=== PATIENT | male | born 1955 | race Caucasian/White ===

== ENCOUNTER → 2018-06-12 09:10 | Outpatient (CLI) | payer OTHER, SELFPAY ==
[2018-06-12 09:24] LABS: Prothrombin Time (Protime)PT. 22.8 SECONDS (11.7-14.9)
== END ==
PROVIDERS: PCP Internal Medicine; Visit Provider Internal Medicine
DX: I74.9 Embolism and thrombosis of unspecified artery (principal); D68.9 Coagulation defect, unspecified
CPT/HCPCS: 85610

== ENCOUNTER → 2020-03-01 11:13 | Outpatient (CLI) | payer OTHER, SELFPAY ==
[2020-03-01 10:08] VITALS: BMI 28.5
== END ==
PROVIDERS: PCP Internal Medicine; Referring Provider Internal Medicine Cardiovascular Disease; Visit Provider Internal Medicine Cardiovascular Disease
DX: I48.91 Unspecified atrial fibrillation (principal)
CPT/HCPCS: 93225; 93226

== ENCOUNTER → 2020-03-13 06:14 | Outpatient (CLI) | payer OTHER, SELFPAY ==
[2020-03-01 10:08] VITALS: BMI 28.5
--- NOTE | 2020-03-13 06:15 | ECHOD_ITS ---
Reason For Study: AFIB Procedure This was a 2D Doppler, Color Flow transthoracic echocardiogram. Exam performed in department. Left Ventricle Normal LV size. Left ventricular systolic function is normal. The estimated ejection fraction is 60 %. Unable to assess diastolic dysfunction due to arrhythmia. No regional wall motion abnormalities noted. Right Ventricle Normal RV size. Normal systolic function. Atria The left atrium is mildly enlarged. Normal right atrium. Mitral Valve Mild mitral valve prolapse. Tricuspid Valve Normal tricuspid valve. Mild tricuspid valve insufficiency. Pulmonary artery systolic pressure is 23 mmHg. Aortic Valve Normal aortic valve. Pulmonic Valve Normal pulmonic valve. Great Vessels Normal aortic root. The pulmonary artery is normal size. Normal inferior vena cava. Pericardium/Pleural No pericardial effusion. MMode/2D Measurements & Calculations LVIDd: 4.7 cm IVSd: 0.93 cm Ao root diam: 3.3 cm LVIDs: 3.8 cm LVPWd: 0.98 cm RVDd: 3.8 cm FS: 18.9 % LAV(MOD-bp): 66.0 ml LVAd ap4: 29.5 cm2 SV(MOD-sp4): 45.2 ml LAV(MOD-bp) Indexed: 32.5 ml/m2 EDV(MOD-sp4): 101.3 ml LAV(MOD-sp2): 58.5 ml EDV(sp4-el): 104.3 ml LAV(MOD-sp4): 67.7 ml LVAs ap4: 20.5 cm2 ESV(MOD-sp4): 56.1 ml ESV(sp4-el): 57.8 ml EF(MOD-sp4): 44.6 % EF(sp4-el): 44.6 % SV(sp4-el): 46.6 ml LA A4 area: 22.0 cm2 LA dimension(2D): 4.4 cm RA A4 area: 17.1 cm2 Doppler Measurements & Calculations Ao V2 max: 80.9 cm/sec LV V1 max: 71.8 cm/sec TR max jojo: 220.4 cm/sec Ao max P.7 mmHg LV V1 max P.2 mmHg TR max P.4 mmHg Interpretation Summary Normal LV size. Left ventricular systolic function is normal. The estimated ejection fraction is 60 %. The left atrium is mildly enlarged. Unable to assess diastolic dysfunction due to arrhythmia. Pulmonary artery systolic pressure is 23 mmHg. Ordering Physician: Jose Hylton Referring Physician: PATRICIA COLEMAN Performed By: Antonia Mcknight, RDCS, RVT
--- NOTE | 2020-03-13 09:41 | STRESSREP_ITS ---
Stress Test Report Pharmacologic myocardial perfusion stress test. 64-year-old man with a history of hyperlipidemia and atrial fibrillation. Stress protocol. Resting EKG demonstrates atrial fibrillation with a rate of 79 bpm normal intervals are noted resting blood pressure is 130/82 mmHg. 0.4 mg of regadenoson was infused per usual protocol followed up intravenous saline flush injection continuous cardiac monitor technician was performed. At rest there were no ST or T wave changes noted suggest abnormal flow reserve at peak infusion nonspecific ST-T wave changes were noted with no meet the criteria for abnormal flow reserve. The maximum heart rate was 117 bpm. The resting blood pressure is 130/82 final blood pressure is 112/82. Myocardial perfusion protocol. 11.2 mCi of technetium 99m sestamibi was injected at rest. 0.4 mg of regadenoson was infused per usual protocol at peak infusion 33.8 mCi of technetium 99m sestamibi was injected stress images were obtained stress and rest images were reconstructed and compared in the short axis vertical long horizontal long axis. Gated images were also obtained Perfusion SPECT analysis: Review of the stress images demonstrate normal uptake of tracer noted in all areas of the myocardium the resting which is similar demonstrate normal uptake of tracer noted in all areas of the myocardium. No areas of reversibility are noted suggest ischemia no previous infarct is noted. Gated SPECT analysis: The gated ejection fraction is 41%. Conclusion: Atrial fibrillation. Myocardial perfusion scan with no evidence of ischemia. Preserved ejection fraction.
== END ==
PROVIDERS: PCP Internal Medicine; Referring Provider Internal Medicine Cardiovascular Disease; Visit Provider Internal Medicine Cardiovascular Disease
DX: I48.91 Unspecified atrial fibrillation (principal)
CPT/HCPCS: 78452; 93017; 93306; A9500; A4216; J2785

== ENCOUNTER → 2020-04-12 09:22 | Outpatient (CLI) | payer OTHER, SELFPAY ==
[2020-04-12 08:37] VITALS: BMI 29.0
[2020-04-12 10:10] LABS: Absolute Lymphocyte Count 2.15 X10^3/uL (0.83-4.51); Absolute Neutrophil Count 3.8 X10^3/uL (2.0-7.7); Basophil# 0.06 X10^3/uL; Basophil% 0.9 % (0-1); Eosinophil# 0.21 X10^3/uL; Eosinophils% 3.1 % (0-5); Hematocrit 49.8 % (40-54); Hemoglobin 16.2 g/dL (13.0-16.5); Lymphocyte # 2.15 X10^3/ul (4.0); Lymphocyte % 31.3 % (19-41); Mean Corp Hgb Conc 32.5 g/dL (32-36); Mean Corpuscular Hgb 30.3 pg (27.0-32.0); Mean Corpuscular Volume 93.1 fL (80-94); Mean Platelet Vol. 9.8 fl (6.2-12.0); Monocyte# 0.67 X10^3/uL; Monocyte% 9.7 % (0-10); NRBC Flagged by Analyzer 0 % (0-5); Neutrophil # 3.78 X10^3/uL (2.7-7.7); Neutrophil % 54.9 % (47-70); Platelet Count 244 K/mm3 (150-450); RBC Distribution Width CV 13.6 % (11.6-14.6); RBC Distribution Width SD 46.2 fl (35.1-43.9); Red Blood Count 5.35 M/mm3 (4.6-6.2); White Blood Count 6.9 K/mm3 (4.4-11.0)
[2020-04-12 11:06] LABS: Anion Gap 5 (5-15); BUN 25 mg/dL (7-18); BUN/Creat Ratio 20.8 RATIO (10-20); Calcium,Total 9.1 mg/dL (8.5-10.1); Chloride 107 mmol/L (98-107); EST Glomerular Filtration Rate 65 mL/min (>60); Est Glom Filt Rate - Afr Amer 79 mL/min (>60); Glucose 97 mg/dL (74-106); Magnesium 2.3 mg/dL (1.6-2.6); Potassium 4.5 mmol/L (3.5-5.1); Sodium Level 139 mmol/L (136-145); T4 Free Direct 1.09 ng/dL (0.76-1.46); Thyroid Stim Hormone (TSH) 1.57 uIU/mL (0.358-3.74)
== END ==
PROVIDERS: PCP Internal Medicine; Referring Provider Nurse Practitioner Family; Visit Provider Nurse Practitioner Family
DX: I48.91 Unspecified atrial fibrillation (principal); R53.83 Other fatigue
CPT/HCPCS: 36415; 80048; 83735; 84439; 84443; 85025

== ENCOUNTER 2020-04-25 15:02 | Emergency (ER) | payer OTHER, SELFPAY ==
[2020-04-12 08:37] VITALS: BMI 29.0
[2020-04-25 15:02] VITALS: BP 105/65; PULSE 67; RESP 22; TEMP 37; O2SAT 94; BMI 30.2
--- NOTE | 2020-04-25 15:20 | EKG12_ITS ---
Test Reason : Blood Pressure : / mmHG Vent. Rate : 068 BPM Atrial Rate : 068 BPM P-R Int : 140 ms QRS Dur : 108 ms QT Int : 414 ms P-R-T Axes : 013 -03 002 degrees QTc Int : 440 ms Sinus rhythm with Premature atrial complexes Right bundle branch block Abnormal ECG Confirmed by PÉREZ HEDRICK, DANIEL ([id number]), photography editor LUZMARIA RIVERA ([id number]) on 04/26/2020 9:40:52 AM Referred By: Confirmed By:DANIEL ORTEZ MD
--- NOTE | 2020-04-25 15:22 | ED.VIS.GEN ---
History of Present Illness Chief Complaint: Chest Pain Informant: Patient, Family Onset: Today Narrative: 64-year-old male with past medical history of atrial fibrillation, chronic DVTs, hypertension, COPD presents with concern for chest pain and hemoptysis. States this began approximately 2 hours ago. States that he was working around the house when this was happening. States that his pain is left-sided and sharp in nature. Worse with deep inspiration. Denies any fever, chills, cough. Does admit to some dyspnea. Worse with exertion. Patient did have rotator cuff surgery approximately 6 days ago. Received an upper extremity block for this issue. Patient is currently anticoagulated on Coumadin. Did have an INR of 2.5 today. Denies any sick contacts. Past Medical History - Allergies and Home Meds Allergies/Adverse Reactions: Allergies No Known Allergies Allergy (Verified 04/25/20 15:08) Primary Care Physician: Magen Ayon MD [Primary Care Provider] - Prior records reviewed: Yes Past Medical History: - - HTN, HLD, DVT, COPD Lives: Spouse/ Significant Other Smoking Status: Current every day smoker Alcohol: None Drugs: None Review of Systems General: Denies: Chills, Fever, Sweats Eyes: Denies: Visual changes - bilaterally, Diplopia ENT: Denies: Rhinorrhea, Sore throat Cardiovascular: Reports: Chest pain. Denies: Palpitations Respiratory: Reports: Dyspnea, Dyspnea on exertion. Denies: Cough Gastrointestinal: Denies: Abdominal pain, Nausea, Vomiting, Diarrhea, Melena, Hematochezia Genitourinary: Denies: Dysuria, Hematuria, Frequency Musculoskeletal: Denies: Back pain, Extremity Pain Skin: Denies: Rash, Wounds Neurological: Denies: Headache, Weakness, Numbness Physical Exam Vital Signs/Narrative: Vital Signs Temp Pulse Resp BP Pulse Ox 04/25/20 15:02 98.6 F 67 22 H 105/65 94 Inital Vital Signs reviewed: Yes General: Well nourished, Well developed, No Acute Distress Head: Normocephalic, Atraumatic Eyes: Perrl, EOMI ENT: Moist mucous membranes, No rhinorrhea Neck: Supple, Nontender Cardiovascular: Regular rate, Regular rhythm, No murmurs Respiratory: No distress, CTA bilaterally, Chest nontender Abdomen: Soft, Nontender, Nondistended, Normal bowel sounds Back: Nontender, Normal Inspection Extremities: Nontender, No edema Skin: Normal color, No rash Neurological: Alert, Oriented x3, Cranial nerves II-XII grossly intact, Normal Strength, Normal Sensation Psychological: Normal affect, Normal Mood Diagnostic/Tx/Re-eval Chest X-Ray - ED: 1 View, No Acute Disease Clinical Impression(s) from Imaging Studies Chest CTA 04/25/20 16:10 IMPRESSION: Bilateral nonspecific airspace disease. Follow-up recommended. Moderate hiatal hernia. Electronically Signed: Edd Valderrama MD at 16:45 EDT , Service support , Laboratory Data 04/25/20 04/25/20 04/25/20 15:35 15:35 15:35 WBC 8.4 RBC 4.33 L Hgb 13.3 Hct 39.7 L MCV 91.7 MCH 30.7 MCHC 33.5 RDW Std Deviation 45.1 H RDW Coeff of Shailesh 13.2 Plt Count 171 MPV 9.9 Immature Gran % (Auto) 0.200 Neut % (Auto) 71.3 H Lymph % (Auto) 15.0 L Fannin % (Auto) 10.0 Eos % (Auto) 3.0 Baso % (Auto) 0.5 Absolute Neuts (auto) 6.0 Absolute Lymphs (auto) 1.26 Nucleated RBC % 0 PT 25.6 H INR 2.4 Sodium 138 Potassium 4.6 Chloride 108 H Carbon Dioxide 25.0 Anion Gap 5 BUN 17 Creatinine 1.05 Estim Creat Clear Calc 72.01 Est GFR (MDRD) Af Amer 92 Est GFR (MDRD) Non-Af 76 BUN/Creatinine Ratio 16.2 Glucose 94 Calcium 8.5 Troponin I < 0.015 B-Natriuretic Peptide 04/25/20 15:35 WBC RBC Hgb Hct MCV MCH MCHC RDW Std Deviation RDW Coeff of Shailesh Plt Count MPV Immature Gran % (Auto) Neut % (Auto) Lymph % (Auto) Fannin % (Auto) Eos % (Auto) Baso % (Auto) Absolute Neuts (auto) Absolute Lymphs (auto) Nucleated RBC % PT INR Sodium Potassium Chloride Carbon Dioxide Anion Gap BUN Creatinine Estim Creat Clear Calc Est GFR (MDRD) Af Amer Est GFR (MDRD) Non-Af BUN/Creatinine Ratio Glucose Calcium Troponin I B-Natriuretic Peptide 195.1 H - Rhythm Strip Rhythm Strip: Sinus Rhythm Rate: 68 Ectopy: None - EKG Initial EKG Interpretation: Sinus Rhythm - Normal sinus rhythm at 68 bpm. SC interval of 140 ms. QTC of 440 ms. Right bundle branch block. PACs. No evidence of ST elevation or depression at this time. - Medical Decision Making Appears well nontoxic. No hypoxemia. CTA of the chest shows no evidence of pulmonary embolism. Bilateral opacities which are faint in nature. Lab work shows a elevation in BNP. EKG nonischemic. Troponin negative. Patient be given Toradol with concern for musculoskeletal chest pain. Patient advised on Tylenol Motrin at home. COVID test will be sent given his opacities. Asked to self quarantine at home. Discharged home in stable condition. Impression: 1. Atypical chest pain ED Disposition - Plan for ED Patient: Disposition: Home or Assisted Living Instructions: ED Chest Pain O Referrals: Magen Ayon MD [Primary Care Provider] - 1 Day
[2020-04-25 15:41] LABS: Absolute Lymphocyte Count 1.26 X10^3/uL (0.83-4.51); Basophil# 0.04 X10^3/uL; Basophil% 0.5 % (0-1); Eosinophil# 0.25 X10^3/uL; Hematocrit 39.7 % (40-54); Hemoglobin 13.3 g/dL (13.0-16.5); Lymphocyte # 1.26 X10^3/ul (4.0); Mean Corp Hgb Conc 33.5 g/dL (32-36); Mean Corpuscular Hgb 30.7 pg (27.0-32.0); Mean Corpuscular Volume 91.7 fL (80-94); Mean Platelet Vol. 9.9 fl (6.2-12.0); Monocyte# 0.84 X10^3/uL; NRBC Flagged by Analyzer 0 % (0-5); Neutrophil # 6.01 X10^3/uL (2.7-7.7); Neutrophil % 71.3 % (47-70); Platelet Count 171 K/mm3 (150-450); RBC Distribution Width CV 13.2 % (11.6-14.6); RBC Distribution Width SD 45.1 fl (35.1-43.9); Red Blood Count 4.33 M/mm3 (4.6-6.2); White Blood Count 8.4 K/mm3 (4.4-11.0)
[2020-04-25 15:43] VITALS: O2SAT 95
[2020-04-25 16:01] LABS: Anion Gap 5 (5-15); BUN 17 mg/dL (7-18); BUN/Creat Ratio 16.2 RATIO (10-20); Calcium,Total 8.5 mg/dL (8.5-10.1); Chloride 108 mmol/L (98-107); Creatinine, Serum 1.05 mg/dL (0.70-1.30); EST Glomerular Filtration Rate 76 mL/min (>60); Est Glom Filt Rate - Afr Amer 92 mL/min (>60); Estimated Creatinine Clearance 72.01 ml/min; Glucose 94 mg/dL (74-106); Potassium 4.6 mmol/L (3.5-5.1); Sodium Level 138 mmol/L (136-145)
--- NOTE | 2020-04-25 16:10 | CT_ITS ---
STUDY: CTA CHEST REASON FOR EXAM: Male, 64 years old. LEFT SIDED CP WITH SOB X 2 HOURS. HX OF DVTS. RECENT ROTATOR CUFF SURGERY RADIATION DOSAGE (If Supplied By Facility): CTDIvol = ( 17.05 ) mGy, DLP = ( 530.24 ) mGycm TECHNIQUE: The examination was performed with the intravenous administration of IV 100mL Isovue-370. Post-processing of the angiographic images was performed, with multiplanar reformation and 3D reconstruction. Individualized dose optimization techniques were used for this CT. COMPARISON: None. FINDINGS: Normal enhancement of the main pulmonary artery and right and left pulmonary arteries. Normal enhancement of the bilateral peripheral pulmonary arteries. There is no demonstrated pulmonary embolism. Normal thoracic aorta and visualized great vessels. There is no demonstrated aortic dissection. Normal heart and pericardium. Normal mediastinum. Normal hilar regions. Bilateral patchy interstitial infiltrate. Right lower lobe airspace disease. Centrilobular and paraseptal emphysema. Small bilateral pleural reactions. Normal pleura. Normal chest wall structures. Normal osseous structures. Moderate hiatal hernia. CT/CTA Chest W/WO Contrast IMPRESSION: Bilateral nonspecific airspace disease. Follow-up recommended. Moderate hiatal hernia. Electronically Signed: Edd Valderrama MD at 16:45 EDT , Service support ,
[2020-04-25 16:12] LABS: BNP,B-Type NATRIURETIC PEPTIDE 195.1 pg/mL (0-100)
[2020-04-25 16:30] VITALS: PULSE 69
[2020-04-25 16:31] VITALS: BP 105/65; PULSE 69; RESP 22; TEMP 37; O2SAT 95
[2020-04-25 16:52] LABS: International Normalized Ratio 2.4; Prothrombin Time (Protime)PT. 25.6 SECONDS (11.7-14.9)
[2020-04-25] MEDS: Ketorolac 15 MG/ML Vial IV (17:59)
[2020-04-25 18:00] VITALS: BP 107/62; PULSE 68; RESP 18; O2SAT 96
[2020-04-25 18:11] VITALS: BP 107/62; PULSE 68; RESP 18
== END 2020-04-25 18:30 | disposition home or self-care (01) ==
PROVIDERS: Emergency Provider Emergency Medicine; PCP Internal Medicine
DX: R07.89 Other chest pain (principal); F17.200 Nicotine dependence, unspecified, uncomplicated; E78.5 Hyperlipidemia, unspecified; I10 Essential (primary) hypertension; I48.20 Chronic atrial fibrillation, unspecified; J44.9 Chronic obstructive pulmonary disease, unspecified; Z79.01 Long term (current) use of anticoagulants; Z86.718 Personal history of other venous thrombosis and embolism; Z79.899 Other long term (current) drug therapy
CPT/HCPCS: 71275; 80048; 83880; 84484; 85025; 85610; 87635; 93005; 96374; 99285; Q9967; A4216; U0003

== ENCOUNTER → 2020-04-28 13:55 | Outpatient (CLI) | payer OTHER, SELFPAY ==
[2020-04-25 15:02] VITALS: BMI 30.2
--- NOTE | 2020-04-28 13:57 | VDLE_ITS ---
Reason For Study: Pain and swelling RIGHT LEFT CFV is compressible, spontaneous, phasic, CFV is compressible, spontaneous, phasic, competent and demonstrates normal competent, and demonstrates normal augmentation. augmentation. FV is compressible, spontaneous, phasic, competent and demonstrates normal augmentation. RT PerV is compressible. Acute deep vein thrombosis is noted in the right PopV, T/P Trunk, GastrocV and proximal PTV. PTV mid-distal is compressible. Acute superficial vein thrombosis is noted in the right GSV from knee to mid calf. Procedure This is a venous duplex using B-mode, color flow and spectral Doppler. Exam performed in department. A preliminary report was called and/or faxed to [facility]. Interpretation Summary Acute deep venous thrombosis right popliteal, tibioperoneal trunk, gastrocnemius and posterior tibial veins Superficial thrombophlebitis right great saphenous vein Patent and compressible left common femoral vein Ordering Physician: Kassy Stack Referring Physician: Candy Feng M.D. Performed By: Jessica Beavers RVT
== END ==
PROVIDERS: PCP Internal Medicine; Visit Provider Physician Assistant Medical
DX: I82.501 Chronic embolism and thrombosis of unspecified deep veins of right lower extremity (principal); M79.661 Pain in right lower leg; Z79.01 Long term (current) use of anticoagulants
CPT/HCPCS: 93971

== ENCOUNTER 2020-05-26 09:12 | Outpatient (RCR) | payer OTHER, SELFPAY ==
[2020-05-26 09:31] LABS: Prothrombin Time Fingerstick 26.1 SEC (11.9-14.4)
== END 2020-05-26 18:00 | disposition home or self-care (01) ==
LOC: LAB 09:12
PROVIDERS: PCP Internal Medicine; Referring Provider Internal Medicine Cardiovascular Disease; Visit Provider Internal Medicine Cardiovascular Disease
DX: I48.0 Paroxysmal atrial fibrillation (principal); I45.10 Unspecified right bundle-branch block; I82.501 Chronic embolism and thrombosis of unspecified deep veins of right lower extremity; E78.5 Hyperlipidemia, unspecified; F17.200 Nicotine dependence, unspecified, uncomplicated; Z79.01 Long term (current) use of anticoagulants; D68.59 Other primary thrombophilia
CPT/HCPCS: 36416; 85610

== ENCOUNTER 2020-07-19 08:41 | Outpatient (RCR) | payer OTHER, SELFPAY ==
[2020-06-01 08:44] VITALS: BMI 28.7
[2020-06-30 10:27] LABS: International Normalized Ratio 1.7; Prothrombin Time (Protime)PT. 19.9 SECONDS (11.7-14.9)
[2020-06-30 11:11] LABS: AST(SGOT) 19 U/L (15-37); Alanine Aminotransfer ALT/SGPT 30 U/L (16-61); Albumin, Serum 3.7 g/dL (3.2-5.0); Alkaline Phosphatase 50 U/L (45-117); Bilirubin, Direct 0.12 mg/dL (0.00-0.30); Cholesterol 158 mg/dL (200); Globulin 3.3 g/dL (2.2-4.2); High Density Lipoprotein 40 mg/dL; Triglycerides 106 mg/dL; Very Low Density Lipoprotein 21 mg/dL (5-40)
[2020-07-19 08:51] LABS: Prothrombin Time Fingerstick 25.6 SEC (11.9-14.4)
== END 2020-07-19 18:00 | disposition home or self-care (01) ==
LOC: LAB 08:41
PROVIDERS: Nurse Practitioner Family; PCP Internal Medicine; Referring Provider Internal Medicine Cardiovascular Disease; Visit Provider Internal Medicine Cardiovascular Disease
DX: I48.0 Paroxysmal atrial fibrillation (principal); I45.10 Unspecified right bundle-branch block; I82.501 Chronic embolism and thrombosis of unspecified deep veins of right lower extremity; E78.5 Hyperlipidemia, unspecified; D68.59 Other primary thrombophilia; F17.200 Nicotine dependence, unspecified, uncomplicated; Z79.01 Long term (current) use of anticoagulants
CPT/HCPCS: 36415; 36416; 80061; 80076; 85610

== ENCOUNTER → 2020-08-22 08:23 | Outpatient (CLI) | payer OTHER, SELFPAY | PROVIDERS: PCP Internal Medicine; Visit Provider Nurse Practitioner Family | DX: R06.83 Snoring (principal); I48.91 Unspecified atrial fibrillation; I48.0 Paroxysmal atrial fibrillation; G47.10 Hypersomnia, unspecified | CPT/HCPCS: 95806 ==

== ENCOUNTER 2020-08-23 08:12 | Outpatient (RCR) | payer OTHER, SELFPAY ==
[2020-06-01 08:44] VITALS: BMI 28.7
[2020-08-23 08:26] LABS: Prothrombin Time Fingerstick 24.5 SEC (11.9-14.4)
== END 2020-08-23 18:00 | disposition home or self-care (01) ==
LOC: LAB 08:12
PROVIDERS: PCP Internal Medicine; Referring Provider Internal Medicine Cardiovascular Disease; Visit Provider Internal Medicine Cardiovascular Disease
DX: I48.0 Paroxysmal atrial fibrillation (principal); I45.10 Unspecified right bundle-branch block; I82.501 Chronic embolism and thrombosis of unspecified deep veins of right lower extremity; E78.5 Hyperlipidemia, unspecified; D68.59 Other primary thrombophilia; F17.200 Nicotine dependence, unspecified, uncomplicated; Z79.01 Long term (current) use of anticoagulants
CPT/HCPCS: 36416; 85610

== ENCOUNTER → 2020-09-20 20:21 | Outpatient (CLI) | payer OTHER, SELFPAY ==
[2020-08-30 09:55] VITALS: BMI 29.8
== END ==
PROVIDERS: PCP Internal Medicine; Visit Provider Nurse Practitioner Acute Care
DX: G47.33 Obstructive sleep apnea (adult) (pediatric) (principal)
CPT/HCPCS: 95811

== ENCOUNTER → 2020-10-02 10:34 | Outpatient (CLI) | payer OTHER, SELFPAY ==
[2020-08-30 09:55] VITALS: BMI 29.8
== END ==
PROVIDERS: PCP Internal Medicine; Visit Provider Nurse Practitioner Acute Care
DX: Z46.89 Encounter for fitting and adjustment of other specified devices (principal)

== ENCOUNTER → 2020-10-10 12:49 | Outpatient (CLI) | payer OTHER, SELFPAY ==
[2020-08-30 09:55] VITALS: BMI 29.8
--- NOTE | 2020-10-11 10:19 | PFT ---
INTRODUCTION: The patient is a 64-year-old male that presents for pulmonary function studies secondary to a diagnosis of tobacco use. Respiratory therapy reports good patient effort. Bronchodilators were used during testing. INTERPRETATION: Forced expiration spirometry demonstrates the presence of a mild large airways obstructive ventilatory defect. There was no significant response to aerosolized bronchodilators. Spirograms are of good quality but do not plateau indicating slow emptying of the lungs. Body plethysmography was performed and reveals a decreased TLC to 5.3 L, 81% of predicted, indicative of a mild restrictive ventilatory impairment. Diffusing capacity by single breath CO is mildly reduced at 72% of predicted. IMPRESSION: Irreversible mild mixed ventilatory defect with symmetric reduction in diffusing capacity.
== END ==
PROVIDERS: PCP Internal Medicine; Referring Provider Nurse Practitioner Acute Care; Visit Provider Nurse Practitioner Acute Care
DX: R06.02 Shortness of breath (principal)
CPT/HCPCS: 94060; 94726; 94729

== ENCOUNTER 2020-10-10 14:06 | Outpatient (RCR) | payer OTHER, SELFPAY ==
[2020-08-30 09:55] VITALS: BMI 29.8
[2020-10-10 14:26] LABS: Prothrombin Time Fingerstick 23.2 SEC (11.9-14.4)
== END 2020-10-10 18:00 | disposition home or self-care (01) ==
LOC: LAB 14:06
PROVIDERS: PCP Internal Medicine; Referring Provider Internal Medicine Cardiovascular Disease; Visit Provider Internal Medicine Cardiovascular Disease
DX: I48.0 Paroxysmal atrial fibrillation (principal); I45.10 Unspecified right bundle-branch block; I82.501 Chronic embolism and thrombosis of unspecified deep veins of right lower extremity; E78.5 Hyperlipidemia, unspecified; D68.59 Other primary thrombophilia; F17.200 Nicotine dependence, unspecified, uncomplicated; Z79.01 Long term (current) use of anticoagulants
CPT/HCPCS: 36416; 85610

== ENCOUNTER 2021-01-16 10:48 | Outpatient (RCR) | payer OTHER, SELFPAY ==
[2020-08-30 09:55] VITALS: BMI 29.8
[2021-01-04 05:33] VITALS: BMI 29.5
[2021-01-16 10:55] LABS: INR Fingerstick 2.4; Prothrombin Time Fingerstick 27.3 SEC (11.9-14.4)
== END 2021-01-16 18:00 | disposition home or self-care (01) ==
LOC: LAB 10:48
PROVIDERS: PCP Internal Medicine; Referring Provider Internal Medicine Cardiovascular Disease; Visit Provider Internal Medicine Cardiovascular Disease
DX: I48.0 Paroxysmal atrial fibrillation (principal); I45.10 Unspecified right bundle-branch block; I82.501 Chronic embolism and thrombosis of unspecified deep veins of right lower extremity; E78.5 Hyperlipidemia, unspecified; D68.59 Other primary thrombophilia; F17.200 Nicotine dependence, unspecified, uncomplicated; Z79.01 Long term (current) use of anticoagulants
CPT/HCPCS: 36416; 85610

== ENCOUNTER 2021-04-12 08:31 | Outpatient (RCR) | payer OTHER, SELFPAY ==
[2021-01-16 11:25] VITALS: BMI 29.7
[2021-04-13 09:01] LABS: INR Fingerstick 2.9
== END 2021-04-12 18:00 | disposition home or self-care (01) ==
LOC: LAB 08:31
PROVIDERS: PCP Internal Medicine; Referring Provider Internal Medicine Cardiovascular Disease; Visit Provider Internal Medicine Cardiovascular Disease
DX: I48.0 Paroxysmal atrial fibrillation (principal); I45.10 Unspecified right bundle-branch block; I82.501 Chronic embolism and thrombosis of unspecified deep veins of right lower extremity; E78.5 Hyperlipidemia, unspecified; D68.59 Other primary thrombophilia; F17.200 Nicotine dependence, unspecified, uncomplicated; Z79.01 Long term (current) use of anticoagulants
CPT/HCPCS: 36416; 85610

== ENCOUNTER 2021-05-31 08:57 | Outpatient (RCR) | payer OTHER, SELFPAY ==
[2021-04-19 20:23] VITALS: BMI 29.7
[2021-05-31 12:19] LABS: Absolute Lymphocyte Count 1.84 X10^3/uL (0.83-4.51); Absolute Neutrophil Count 3.2 X10^3/uL (2.0-7.7); Basophil# 0.08 X10^3/uL; Basophil% 1.3 % (0-1); Eosinophil# 0.22 X10^3/uL; Eosinophils% 3.6 % (0-5); Hematocrit 49.6 % (40-54); Hemoglobin 16.5 g/dL (13.0-16.5); Lymphocyte # 1.84 X10^3/ul (0.83-4.51); Lymphocyte % 30.5 % (19-41); Mean Corp Hgb Conc 33.3 g/dL (32-36); Mean Corpuscular Hgb 30.9 pg (27.0-32.0); Mean Corpuscular Volume 92.9 fL (80-94); Mean Platelet Vol. 9.8 fl (6.2-12.0); Monocyte# 0.69 X10^3/uL; Monocyte% 11.4 % (0-10); NRBC Flagged by Analyzer 0 % (0-5); Neutrophil # 3.19 X10^3/uL (2.7-7.7); Platelet Count 243 K/mm3 (150-450); RBC Distribution Width CV 14.2 % (11.6-14.6); RBC Distribution Width SD 48.6 fl (35.1-43.9); Red Blood Count 5.34 M/mm3 (4.6-6.2)
[2021-05-31 12:28] LABS: International Normalized Ratio 2.4; Prothrombin Time (Protime)PT. 25.3 SECONDS (11.7-14.9)
[2021-05-31 12:36] LABS: Vitamin D,25 Hydroxy 18.8 ng/mL
[2021-05-31 12:55] LABS: AST(SGOT) 26 U/L (15-37); Alanine Aminotransfer ALT/SGPT 36 U/L (16-61); Albumin, Serum 3.8 g/dL (3.2-5.0); Alkaline Phosphatase 44 U/L (45-117); Anion Gap 7 (5-15); BUN 24 mg/dL (7-18); BUN/Creat Ratio 19.8 RATIO (10-20); Chloride 104 mmol/L (98-107); Cholesterol 187 mg/dL (200); Creatinine, Serum 1.21 mg/dL (0.70-1.30); EST Glomerular Filtration Rate 64 mL/min (>60); Est Glom Filt Rate - Afr Amer 78 mL/min (>60); Glucose 96 mg/dL (74-106); High Density Lipoprotein 37 mg/dL; PSA,Total - Annual Screen 0.39 ng/mL (0.00-4.00); Potassium 4.5 mmol/L (3.5-5.1); Protein, Total 7.8 g/dL (6.4-8.2); Sodium Level 137 mmol/L (136-145); Thyroid Stim Hormone (TSH) 1.63 uIU/mL (0.358-3.74); Triglycerides 187 mg/dL; Very Low Density Lipoprotein 37 mg/dL (5-40)
== END 2021-06-19 23:59 ==
LOC: BIMLAB 08:57
PROVIDERS: PCP Internal Medicine; Referring Provider Internal Medicine Cardiovascular Disease; Visit Provider Internal Medicine Cardiovascular Disease
DX: I48.0 Paroxysmal atrial fibrillation (principal); I45.10 Unspecified right bundle-branch block; I82.501 Chronic embolism and thrombosis of unspecified deep veins of right lower extremity; E78.5 Hyperlipidemia, unspecified; E55.9 Vitamin D deficiency, unspecified; D68.59 Other primary thrombophilia; F17.200 Nicotine dependence, unspecified, uncomplicated; Z12.5 Encounter for screening for malignant neoplasm of prostate; Z79.01 Long term (current) use of anticoagulants
CPT/HCPCS: 36415; 80053; 80061; 82306; 84153; 84443; 85025; 85610; G0103

== ENCOUNTER 2021-07-10 17:14 | Outpatient (RCR) | payer OTHER, SELFPAY ==
[2021-06-20 00:05] VITALS: BMI 29.7
[2021-07-10 17:43] LABS: International Normalized Ratio 2.4; Prothrombin Time (Protime)PT. 25.4 SECONDS (11.7-14.9)
== END 2021-07-20 23:59 ==
LOC: BIMLAB 17:14
PROVIDERS: PCP Internal Medicine; Referring Provider Internal Medicine Cardiovascular Disease; Visit Provider Internal Medicine Cardiovascular Disease
DX: I48.0 Paroxysmal atrial fibrillation (principal); I45.10 Unspecified right bundle-branch block; I82.501 Chronic embolism and thrombosis of unspecified deep veins of right lower extremity; E78.5 Hyperlipidemia, unspecified; E55.9 Vitamin D deficiency, unspecified; D68.59 Other primary thrombophilia; F17.200 Nicotine dependence, unspecified, uncomplicated; Z12.5 Encounter for screening for malignant neoplasm of prostate; Z79.01 Long term (current) use of anticoagulants
CPT/HCPCS: 36415; 85610

== ENCOUNTER 2021-08-31 09:19 | Outpatient (RCR) | payer OTHER, SELFPAY ==
[2021-07-21 00:09] VITALS: BMI 29.7
[2021-08-31 09:31] LABS: INR Fingerstick 2.4; Prothrombin Time Fingerstick 27.9 SEC (11.9-14.4)
== END 2021-09-17 23:59 ==
LOC: BIMLAB 09:19
PROVIDERS: PCP Internal Medicine; Referring Provider Internal Medicine Cardiovascular Disease; Visit Provider Internal Medicine Cardiovascular Disease
DX: I48.21 Permanent atrial fibrillation (principal); Z79.01 Long term (current) use of anticoagulants
CPT/HCPCS: 36416; 85610

== ENCOUNTER 2021-09-15 07:47 | Outpatient (CLI) | payer OTHER, SELFPAY ==
[2020-08-30 09:55] VITALS: BMI 29.8
--- NOTE | 2021-09-15 07:50 | CT_ITS ---
STUDY: CT CHEST WITHOUT CONTRAST- LOW DOSE SCREENING PROTOCOL REASON FOR EXAM: Male, 65 years old. Current smoker. pack per year history. No current symptoms of lung cancer or pulmonary infection. Shared decision-making with referring PCP documented in patient''s record. RADIATION DOSAGE (If Supplied By Facility): CTDIvol = ( 4.02 ) mGy, DLP = ( 140.44 ) mGycm TECHNIQUE: Low dose screening CT examination performed from the base of the neck to the upper abdomen. Sagittal and coronal reformatted images performed. Sagittal and coronal MIP images provided. The measurements provided are average, rounded measurements per ACR guidelines. COMPARISON: 04/25/2020 FINDINGS: Mild emphysema. Mild bilateral apical scarring. 1 cm flat subpleural nodule in the posterior medial right lower lobe the lungs on image 134 and correlation with PET CT scan is recommended. If PET negative, follow-up CT is recommended in 6 months document stability. There is no demonstrated pleural abnormality. Normal heart and pericardium. There are calcifications of the coronary arteries. Normal mediastinum. Normal hilar regions. Normal unenhanced pulmonary arteries. Normal aorta arch and descending thoracic aorta. Normal osseous structures. There is no demonstrated abnormality of the visualized upper abdomen. CT/Low Dose CT Lung Screening IMPRESSION: 1. 1 cm noncalcified subpleural right lower lobe nodule and correlation with PET CT scan is recommended. If PET negative, follow-up CT is recommended in 6 months document stability.. 2. Incidental findings include calcified coronary plaque. ASSESSMENT CATEGORY: LungRADS 4A - Suspicious. Recommend follow up LDCT in 3 months. PET/CT may be used if there is an 8 mm or larger solid component. Electronically Signed: Raymundo Adams MD at 10:05 EST ,
== END 2021-09-15 23:59 | disposition home or self-care (01) ==
LOC: CT 07:49
PROVIDERS: PCP Internal Medicine; Referring Provider Nurse Practitioner Acute Care; Visit Provider Nurse Practitioner Acute Care
DX: F17.210 Nicotine dependence, cigarettes, uncomplicated (principal)
CPT/HCPCS: 71271

== ENCOUNTER 2021-10-01 12:40 | Outpatient (CLI) | payer OTHER, SELFPAY ==
[2021-10-01 13:06] LABS: Prothrombin Time Fingerstick 34.4 SEC (11.7-14.9)
--- NOTE | 2021-10-01 13:11 | ECHOCS_ITS ---
Reason For Study: Afib, Aflutter Procedure This was a 2D Doppler, Color Flow transthoracic echocardiogram. Contrast injection was performed. Exam performed in department. Left Ventricle Normal LV size. Left ventricular systolic function is normal. The estimated ejection fraction is 55 %. Unable to assess diastolic dysfunction due to arrhythmia. No regional wall motion abnormalities noted. Right Ventricle Normal RV size. Normal systolic function. Atria The left atrium is mildly enlarged. The right atrium is moderately enlarged. Mitral Valve Normal mitral valve. Tricuspid Valve Normal tricuspid valve. Mild tricuspid valve insufficiency. Pulmonary artery systolic pressure is 28 mmHg. Aortic Valve The aortic valve is not well visualized. Pulmonic Valve The pulmonic valve is not well visualized. Great Vessels Normal aortic root. The pulmonary artery is normal size. Normal inferior vena cava. Pericardium/Pleural No pericardial effusion. Medication Diluted definity 3ml given slow IV push to enhance endocardial definition. MMode/2D Measurements & Calculations LVIDd: 4.7 cm IVSd: 1.00 cm Ao root diam: 3.1 cm LVIDs: 3.4 cm LVPWd: 0.97 cm RVDd: 4.0 cm FS: 27.1 % LAV(MOD-bp): 75.7 ml LVAd ap4: 27.3 cm2 SV(MOD-sp4): 47.0 ml LAV(MOD-bp) Indexed: 35.4 ml/m2 LVLd ap4: 6.7 cm LAV(MOD-sp2): 74.1 ml EDV(MOD-sp4): 93.7 ml LAV(MOD-sp4): 61.8 ml EDV(sp4-el): 94.7 ml LVAs ap4: 17.6 cm2 LVLs ap4: 5.6 cm ESV(MOD-sp4): 46.7 ml ESV(sp4-el): 47.1 ml EF(MOD-sp4): 50.1 % EF(sp4-el): 50.2 % SV(sp4-el): 47.6 ml LA A4 area: 22.6 cm2 LA dimension(2D): 4.6 cm RA A4 area: 24.8 cm2 Doppler Measurements & Calculations MV E max jojo: 80.0 cm/sec Ao V2 max: 87.9 cm/sec LV V1 max: 78.2 cm/sec Ao max P.1 mmHg LV V1 max P.5 mmHg Ao V2 mean: 62.6 cm/sec Ao mean P.7 mmHg Ao V2 VTI: 17.2 cm PA V2 max: 88.9 cm/sec TR max jojo: 242.3 cm/sec TR max P.5 mmHg ECHO/Echo Complete W/ Contrast Interpretation Summary Normal LV size. Left ventricular systolic function is normal. The estimated ejection fraction is 55 %. Unable to assess diastolic dysfunction due to arrhythmia. Mild tricuspid valve insufficiency. Contrast injection was performed. Ordering Physician: Kassy Stack Referring Physician: Candy Feng Performed By: Meenakshi Swanson, EVELYN, RVT
== END 2021-10-01 23:59 | disposition home or self-care (01) ==
PROVIDERS: PCP Internal Medicine; Referring Provider Physician Assistant Medical; Visit Provider Physician Assistant Medical
DX: I48.0 Paroxysmal atrial fibrillation (principal)
CPT/HCPCS: 36416; 85610; 93225; 93226; 93306; Q9957; A4216; C8929

== ENCOUNTER 2021-11-05 10:17 | Outpatient (RCR) | payer OTHER, SELFPAY ==
[2021-09-18 00:09] VITALS: BMI 29.7
[2021-10-22 07:56] LABS: INR Fingerstick 1.7; Prothrombin Time Fingerstick 20.5 SEC (11.7-14.9)
[2021-10-29 08:50] LABS: INR Fingerstick 1.9; Prothrombin Time Fingerstick 22.2 SEC (11.7-14.9)
[2021-11-05 10:30] LABS: INR Fingerstick 2.2; Prothrombin Time Fingerstick 25.4 SEC (11.7-14.9)
== END 2021-11-05 18:00 | disposition home or self-care (01) ==
LOC: LAB 10:17
PROVIDERS: PCP Internal Medicine; Referring Provider Internal Medicine Cardiovascular Disease; Visit Provider Internal Medicine Cardiovascular Disease
DX: I48.21 Permanent atrial fibrillation (principal); Z79.01 Long term (current) use of anticoagulants
CPT/HCPCS: 36416; 85610

== ENCOUNTER 2021-11-26 09:53 | Outpatient (RCR) | payer OTHER, SELFPAY ==
[2021-11-18 03:03] VITALS: BMI 29.7
[2021-11-26 10:01] LABS: Prothrombin Time Fingerstick 33.9 SEC (11.7-14.9)
== END 2021-11-26 18:00 | disposition home or self-care (01) ==
LOC: LAB 09:53
PROVIDERS: PCP Internal Medicine; Referring Provider Internal Medicine Cardiovascular Disease; Visit Provider Internal Medicine Cardiovascular Disease
DX: I48.21 Permanent atrial fibrillation (principal); Z79.01 Long term (current) use of anticoagulants
CPT/HCPCS: 36416; 85610

== ENCOUNTER 2021-12-26 16:23 | Outpatient (RCR) | payer MEDICARE, OTHER, SELFPAY ==
[2021-12-18 20:37] VITALS: BMI 29.7
[2021-12-26 16:51] LABS: INR Fingerstick 2.9; Prothrombin Time Fingerstick 33.3 SEC (11.7-14.9)
== END 2021-12-26 23:59 | disposition home or self-care (01) ==
LOC: LAB 16:23
PROVIDERS: PCP Internal Medicine; Referring Provider Internal Medicine Cardiovascular Disease; Visit Provider Internal Medicine Cardiovascular Disease
DX: I48.21 Permanent atrial fibrillation (principal); Z79.01 Long term (current) use of anticoagulants
CPT/HCPCS: 36416; 85610

== ENCOUNTER → 2021-12-26 | Outpatient (CLI) | payer MEDICARE, OTHER, SELFPAY ==
--- NOTE | 2021-12-26 16:02 | CT_ITS ---
STUDY: CT Chest W/O Contrast Injection 12/26/2021 4:40 PM REASON FOR EXAM: Male, 66 years old. new mass 1 cm right lower lobe Individualized dose optimization techniques were used for this CT. TECHNIQUE: Transaxial imaging was performed withoutIV contrast material. COMPARISON: Sep 15 2021 7:56am FINDINGS: There are degenerative changes of the shoulders. There is no pneumothorax. There is a right medial sub pleural calcification which is likely a plaque. Calcified granuloma of the right fissure. Also, There is a 2.6mm nodule in the right fissure. Se 2 IM: 76. ACR Lung CT Screening Reporting T Data System (Lung-RADS) score: 2 - Benign Appearance or Behavior. Recommend continued annual screening with low-dose CT (LDCT) in 12 months. There are calcifications of the coronary arteries. Normal mediastinum. Normal hilar regions. Normal pulmonary arteries. There is atherosclerotic calcification of the aortic arch with tortuosity and elongation of the aortic arch and descending thoracic aorta. There are multi-level degenerative changes of the thoracic spine. There is a large hiatal hernia composed mostly of the fundus of the stomach. CT/Chest without Contrast IMPRESSION: There is a 2.6mm nodule in the right fissure. Se 2 IM: 76. ACR Lung CT Screening Reporting T Data System (Lung-RADS) score: 2 - Benign Appearance or Behavior. Recommend continued annual screening with low-dose CT (LDCT) in 12 months. Electronically Signed: Robert Teixeira MD at 16:44 EDT ,
== END | disposition home or self-care (01) ==
PROVIDERS: PCP Internal Medicine; Referring Provider Nurse Practitioner Acute Care; Visit Provider Nurse Practitioner Acute Care
DX: R91.1 Solitary pulmonary nodule (principal); I48.21 Permanent atrial fibrillation; Z79.01 Long term (current) use of anticoagulants
CPT/HCPCS: 36416; 71250; 85610

== ENCOUNTER 2022-03-15 08:31 | Outpatient (RCR) | payer MEDICARE, OTHER, SELFPAY ==
[2022-01-18 06:55] VITALS: BMI 29.7
[2022-03-08 12:56] LABS: INR Fingerstick 3.1; Prothrombin Time Fingerstick 35.2 SEC (11.7-14.9)
[2022-03-15 08:45] LABS: INR Fingerstick 3.3; Prothrombin Time Fingerstick 36.9 SEC (11.7-14.9)
== END 2022-03-15 18:00 | disposition home or self-care (01) ==
LOC: LAB 08:31
PROVIDERS: PCP Internal Medicine; Referring Provider Internal Medicine Cardiovascular Disease; Visit Provider Internal Medicine Cardiovascular Disease
DX: I48.21 Permanent atrial fibrillation (principal); Z79.01 Long term (current) use of anticoagulants
CPT/HCPCS: 36416; 85610

== ENCOUNTER 2022-04-04 10:49 | Day surgery (SDC) | payer MEDICARE, OTHER, SELFPAY ==
[2022-04-03 07:38] VITALS: BMI 30.2
--- NOTE | 2022-04-04 13:13 | OP.PCM_ITS ---
Problems Associated Problem List Diagnoses (1) Atrial fibrillation, permanent: Operative Report Date of Procedure: 04/04/22 Direct-current cardioversion. 66-year-old man with a history of paroxysmal atrial fibrillation. The patient was seen by Dr. Anders of the critical care division. Informed consent was obtained. Anterior-posterior pads were applied. An EKG obtained demonstrated atrial fibrillation. The patient was administered 40 mg of intravenous propofol and then 200 J of synchronized biphasic energy were applied with prompt reversal to sinus rhythm. Post LP EKG did confirm adventism of sinus rhythm. Conclusion: Successful DC cardioversion from atrial fibrillation to sinus rhythm. Follow-up as per office protocol.
--- NOTE | 2022-04-04 13:34 | PCM.OP.PRO ---
Procedure Report Date of Procedure: 04/04/22 CONSCIOUS SEDATION REPORT BRIEF HISTORY OF PRESENT ILLNESS: The patient is a 66-year-old male who presented to [facility] for an elective outpatient cardioversion due to underlying atrial fibrillation. The patient reports no PO intake since midnight, but is currently therapeutic on anticoagulation. The patient does not have a history of FIFI. The patient reports a history of smoking and COPD that are well controlled at this time. The patient denies any recent constitutional symptoms such as fevers, chills, nausea or vomiting. The patient denies previous applicable anesthetic complications. Patient is on Coumadin therapy and INR on the day of the procedure is 2.2. Last known ejection fraction was 60%. PHYSICAL EXAMINATION: VITAL SIGNS: Reviewed and were acceptable. GENERAL: The patient is a male, in no apparent distress, speaking in full sentences. HEENT: Normocephalic, atraumatic. Mucous membranes are moist and pink. Good mouth opening noted. Trachea is midline. Good neck mobility. MP II CHEST: S1, S2 irregularly irregular. No murmurs, rubs or gallops were noted. LUNGS: Clear to auscultation bilaterally without appreciable wheezes, rales or rhonchi. ABDOMEN: Soft, nontender, nondistended. Positive bowel sounds. EXTREMITIES: There is no clubbing, cyanosis or edema. ASA Class: II DESCRIPTION OF PROCEDURE: After confirmation of informed consent, the patient's anesthesia plan was reviewed in detail. Propofol was chosen. Risks and benefits were reviewed and the patient agreed to proceed. At 1:07 PM, the patient was given 40 mg of propofol. The patient achieved an appropriate level of sedation and received 1 attempt synchronized cardioversion, at [address] Hylton at the bedside. This was successful in achieving normal sinus rhythm. The patient was monitored until 1:22 PM, at which time the patient reached their baseline mental status and function. The patient tolerated the procedure well. COMPLICATIONS: None ESTIMATED BLOOD LOSS: None RECOMMENDATIONS: Okay to recover in usual fashion. Procedures Pulmonary 9xxxx: [id number] Con Sedation
== END 2022-04-04 14:05 | disposition home or self-care (01) ==
PROVIDERS: PCP Internal Medicine; Visit Provider Internal Medicine Cardiovascular Disease
DX: I48.91 Unspecified atrial fibrillation (principal)
CPT/HCPCS: 36416; 85610; 92960; 93005

== ENCOUNTER 2022-04-11 10:27 | Outpatient (RCR) | payer MEDICARE, OTHER, SELFPAY ==
[2022-03-20 22:52] VITALS: BMI 29.7
[2022-03-22 10:21] LABS: INR Fingerstick 3.2; Prothrombin Time Fingerstick 36.3 SEC (11.7-14.9)
[2022-03-29 10:37] LABS: International Normalized Ratio 2.3; Prothrombin Time (Protime)PT. 25.3 SECONDS (11.7-14.9)
[2022-03-29 10:41] LABS: Anion Gap 5 (5-15); BUN 21 mg/dL (7-18); BUN/Creat Ratio 16.3 RATIO (10-20); Chloride 107 mmol/L (98-107); Creatinine, Serum 1.29 mg/dL (0.70-1.30); EST Glomerular Filtration Rate 59 mL/min (>60); Est Glom Filt Rate - Afr Amer 72 mL/min (>60); Glucose 104 mg/dL (74-106); Potassium 4.2 mmol/L (3.5-5.1); Sodium Level 139 mmol/L (136-145)
[2022-04-04 11:01] LABS: INR Fingerstick 2.2; Prothrombin Time Fingerstick 26.3 SEC (11.7-14.9)
[2022-04-11 10:40] LABS: INR Fingerstick 2.4; Prothrombin Time Fingerstick 27.8 SEC (11.7-14.9)
== END 2022-04-11 18:00 | disposition home or self-care (01) ==
LOC: LAB 10:27
PROVIDERS: Nurse Practitioner Family; PCP Internal Medicine; Referring Provider Internal Medicine Cardiovascular Disease; Visit Provider Internal Medicine Cardiovascular Disease
DX: I48.21 Permanent atrial fibrillation (principal); Z79.01 Long term (current) use of anticoagulants; R91.1 Solitary pulmonary nodule
CPT/HCPCS: 36415; 36416; 80048; 85610

== ENCOUNTER 2022-05-15 11:15 | Outpatient (RCR) | payer MEDICARE, OTHER, SELFPAY ==
[2022-04-19 21:21] VITALS: BMI 29.7
[2022-05-15 11:26] LABS: INR Fingerstick 2.2; Prothrombin Time Fingerstick 26.2 SEC (11.7-14.9)
== END 2022-05-15 18:00 | disposition home or self-care (01) ==
LOC: LAB 11:15
PROVIDERS: PCP Internal Medicine; Referring Provider Internal Medicine Cardiovascular Disease; Visit Provider Internal Medicine Cardiovascular Disease
DX: I48.21 Permanent atrial fibrillation (principal); Z79.01 Long term (current) use of anticoagulants; R91.1 Solitary pulmonary nodule
CPT/HCPCS: 36416; 85610

== ENCOUNTER → 2022-06-04 | Day surgery (SDC) | payer MEDICARE, OTHER, SELFPAY ==
[2022-05-23 09:53] LABS: Anion Gap 5 (5-15); BUN 20 mg/dL (7-18); Calcium,Total 8.8 mg/dL (8.5-10.1); Chloride 108 mmol/L (98-107); Creatinine, Serum 1.25 mg/dL (0.70-1.30); EST Glomerular Filtration Rate 62 mL/min (>60); Est Glom Filt Rate - Afr Amer 75 mL/min (>60); Glucose 98 mg/dL (74-106); Potassium 4.5 mmol/L (3.5-5.1); Sodium Level 139 mmol/L (136-145)
[2022-06-03 08:48] VITALS: BMI 31.1
--- NOTE | 2022-06-03 11:33 | HP.PCM_ITS ---
History and Physical Wojciech Reynaga is a 66-year-old man with a history of protein C deficiency chronic lower extremity DVT in 2004.? He also has a history of hyperlipidemia and previous tobacco abuse.? He was seen in the office and was noted to be in atrial fibrillation with a rapid ventricular response rate.? He had previously been on anticoagulation and he was started on a beta-donna.? He underwent an echocardiogram on 03/13/2020 that showed an ejection fraction of 60% and mildly enlarged left atrium.? His stress test on 03/13/2020 was negative for ischemia.? His 24-hour Holter monitor on 03/01/2020 showed atrial fibrillation at approximate 100% of total scan.? His average heart rate was elevated and his beta-donna dose was changed.?In March he did undergo a DCCV, unfortunately he did not maintain SR. He was referred to EP for their input. He was started on Flecainide with plans for a DCCV 2 weeks after starting. Medications See hospital charting PENDING SALE TO [facility] Medical History? 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 History of carpal tunnel release History of repair of right rotator cuff History of shoulder surgery History of total hip arthroplasty Social History? Smoking Status:? Current every day smoker tobacco type: cigarettes alcohol intake:? never substance use type:? does not use caffeine:? Yes Type: coffee Number of servings: 9 and tea Number of servings: 2 ROS Const Const: Positive for fatigue (Working nights); Negative for weakness, headache(s), frequent falls, difficulty sleeping or excessive sweating Eyes Eyes: Negative for loss of peripheral vision, transient loss of vision, blurry vision, double vision or tunnel vision ENT ENT: Negative for headache(s), dizziness, Nosebleed/epistaxis or balance problems Cardio Chest Pain: No Palpitations: No Edema: Bilateral (Mild. Wears compression stocking on Right leg only) Muscle aches with walking: None Resp Respiratory: Negative for SOB with activity, SOB at rest, SOB orthopnea\SOB lying down, Cough or paroxysmal nocturnal dyspnea GI GI: Negative nausea, vomiting, heartburn or black,tarry stools : Negative for hematuria Musc Musc: Negative for muscle aches/ myalgia, muscle weakness, joint pain or balance problems Skin Skin: Negative non-healing lesions, rash or unusual bruising Neuro Neuro: Negative for dizziness, lightheadedness, near syncope, syncope, frequent falls, headache(s), weakness, blurry vision, double vision or lack of coordination Dereck Hematologic/Lymphatic: Negative for easy bleeding or easy bruising Endo Endo: Positive for fatigue (Working nights); Negative for excessive sweating or increased thirst/drinking Psych Psych: Negative for anxiety or depression Allergy Allergy/Immunology: Negative for hives and Negative for rash Cardiology Exam Const Appearance: cooperative, healthy appearing, comfortable and no acute distress Nutritional Appearance: well nourished and obese Orientation: alert, awake and oriented x3 Head Head: normal to inspection Ears: hearing grossly normal bilaterally Nose: external nose normal Face and Sinus: face symmetric Mouth: oral mucosae normal Eyes General: appearance normal, both eyes and all related structures Eyelids: eyelids normal EOM: EOM intact bilaterally Neck Neck: normal visual inspection and no JVD Carotids: normal carotid upstroke Chest Chest inspection: normal inspection of the chest, symmetric chest movement and normal respiratory effort; Negative cough Auscultation: Bilateral: Clear to Auscultation Cardio Rate: regular rate Rhythm: irregular rhythm Heart sounds: S1 normal and S2 normal; Negative rub, gallop or murmur GI GI: normal to inspection and obese Neuro General: patient alert, patient awake, patient oriented x3 and CN's II-XI intact bilaterally Skin Skin: no rashes or lesions noted Extremities Pulses: Normal: Right Posterior Tibial Pulse, Left Posterior Tibial Pulse, Right Radial Pulse and Left Radial Pulse Lower Extremity Edema: Trace: Bilateral Psych Psychological: normal affect Supplemental Info Supplemental Information Echocardiogram from 10/01/2021: Interpretation Summary Normal LV size. Left ventricular systolic function is normal. The estimated ejection fraction is 55 %. Unable to assess diastolic dysfunction due to arrhythmia. Mild tricuspid valve insufficiency. Contrast injection was performed. Echocardiogram 02/2020: Normal LV size. Left ventricular systolic function is normal. The estimated ejection fraction is 60 %. The left atrium is mildly enlarged. Unable to assess diastolic dysfunction due to arrhythmia. Pulmonary artery systolic pressure is 23 mmHg. Pharmacologic myocardial perfusion stress test 02/2020: 64-year-old man with a history of hyperlipidemia and atrial fibrillation. Stress protocol. Resting EKG demonstrates atrial fibrillation with a rate of 79 bpm normal intervals are noted resting blood pressure is 130/82 mmHg.? 0.4 mg of regadenoson was infused per usual protocol followed up intravenous saline flush injection continuous awake overnight monitor was performed.? At rest there were no ST or T wave changes noted suggest abnormal flow reserve at peak infusion nonspecific ST-T wave changes were noted with no meet the criteria for abnormal flow reserve.? The maximum heart rate was 117 bpm.? The resting blood pressure is 130/82 final blood pressure is 112/82. Myocardial perfusion protocol. 11.2 mCi of technetium 99m sestamibi was injected at rest.? 0.4 mg of regadenoson was infused per usual protocol at peak infusion 33.8 mCi of technetium 99m sestamibi was injected stress images were obtained stress and rest images were reconstructed and compared in the short axis vertical long horizontal long axis.? Gated images were also obtained Perfusion SPECT analysis: Review of the stress images demonstrate normal uptake of tracer noted in all areas of the myocardium the resting which is similar demonstrate normal uptake of tracer noted in all areas of the myocardium.? No areas of reversibility are noted suggest ischemia no previous infarct is noted. Gated SPECT analysis: The gated ejection fraction is 41%. Conclusion: Atrial fibrillation. Myocardial perfusion scan with no evidence of ischemia. Preserved ejection fraction. 24-hour Holter monitor from 10/01/2021: Minimal heart rate 51 bpm. Average heart 94 bpm. Maximal heart rate 148 bpm. Ventricular ectopy 1.6%.? Supraventricular ectopy 0.0%. Atrial fibrillation 98.4%. Longest R to R interval 1.8 seconds. The patient kept a 24-hour diary.? No symptoms recorded. Assessment & Plan Assessment/Plan (1) Atrial fibrillation, permanent: PLAN: Pt will undergo a DCCV, f/u will be based on results of DCCV.
[2022-06-04 10:46] LABS: Prothrombin Time Fingerstick 23.2 SEC (11.7-14.9)
--- NOTE | 2022-06-04 13:39 | OP.PCM_ITS ---
Problems Associated Problem List Diagnoses (1) Paroxysmal atrial fibrillation: Operative Report Date of Procedure: 06/04/22 DC cardioversion. 66-year-old man with a history of persistent atrial fibrillation. The patient has been on therapeutic anticoagulation. The patient was seen by Dr. Muñiz of the critical care division. Informed consent was obtained. The patient was administered 40 mg of intravenous propofol for conscious sedation. Anterior- posterior pads were applied. 200 J of synchronized DC cardioversion energy were applied with prompt reversal to sinus rhythm. Patient tolerated the procedure well. Conclusion: Successful DC cardioversion from atrial fibrillation to sinus rhythm. Follow-up as per office protocol.
--- NOTE | 2022-06-04 13:40 | PRO.PCM_ITS ---
Procedure Report Date of Procedure: 06/04/22 CONSCIOUS SEDATION REPORT DATE OF SERVICE: June 04, 2022 BRIEF HISTORY OF PRESENT ILLNESS: The patient is a 66-year-old male who presented to [facility] for elective outpatient cardioversion due to underlying atrial fibrillation. The patient did undergo a prior cardioversion in March 2022, during which time, 40 mg of propofol was utilized to achieve sedation. The patient is systemically anticoagulated on Coumadin with an INR of 2.0 this morning. His last surface echocardiogram demonstrated an ejection fraction of 55%. PHYSICAL EXAMINATION: VITAL SIGNS: Reviewed and were acceptable. GENERAL: The patient is a male, in no apparent distress, speaking in full sentences. HEENT: Normocephalic, atraumatic. Mucous membranes are moist and pink. Good mouth opening noted. Trachea is midline. Good neck mobility. CHEST: S1, S2 irregularly irregular. No murmurs, rubs or gallops were noted. LUNGS: Clear to auscultation bilaterally without appreciable wheezes, rales or rhonchi. ABDOMEN: Soft, nontender, nondistended. Positive bowel sounds. EXTREMITIES: There is no clubbing, cyanosis or edema. ASA Class: II DESCRIPTION OF PROCEDURE: After confirmation of informed consent, the patient's anesthesia plan was reviewed in detail. Propofol was chosen. Risks and benefits were reviewed and the patient agreed to proceed. At 1331, the patient was given 40 mg of propofol. The patient achieved an appropriate level of sedation and was given a 200 joule synchronized cardioversion by Dr. Hylton at the bedside. This was successful in achieving normal sinus rhythm. The patient was monitored until 1342, at which time he reached his baseline mental status and function. The patient tolerated the procedure well. COMPLICATIONS: None ESTIMATED BLOOD LOSS: None RECOMMENDATIONS: Okay to recover in usual fashion. Procedures Pulmonary 9xxxx: [id number] Con Sedation
== END | disposition home or self-care (01) ==
LOC: CLSP 10:35
PROVIDERS: PCP Internal Medicine; Referring Provider Internal Medicine Cardiovascular Disease; Visit Provider Internal Medicine Cardiovascular Disease
DX: I48.0 Paroxysmal atrial fibrillation (principal); E78.5 Hyperlipidemia, unspecified; F17.210 Nicotine dependence, cigarettes, uncomplicated; Z79.01 Long term (current) use of anticoagulants; Z79.899 Other long term (current) drug therapy
CPT/HCPCS: 36415; 36416; 80048; 85610; 92960; 93005; 96413; J7040

== ENCOUNTER 2022-06-11 09:05 | Outpatient (RCR) | payer MEDICARE, OTHER, SELFPAY ==
[2022-05-21 09:50] VITALS: BMI 29.7
[2022-05-23 09:39] LABS: International Normalized Ratio 2.3; Prothrombin Time (Protime)PT. 24.8 SECONDS (11.7-14.9)
[2022-05-30 08:15] LABS: INR Fingerstick 2.1; Prothrombin Time Fingerstick 24.9 SEC (11.7-14.9)
[2022-06-11 10:05] LABS: Absolute Lymphocyte Count 1.55 X10^3/uL (0.83-4.51); Absolute Neutrophil Count 3.9 X10^3/uL (2.0-7.7); Basophil# 0.06 X10^3/uL; Basophil% 0.9 % (0-1); Eosinophil# 0.24 X10^3/uL; Eosinophils% 3.8 % (0-5); Hematocrit 47.4 % (40-54); Hemoglobin 15.3 g/dL (13.0-16.5); Lymphocyte # 1.55 X10^3/ul (0.83-4.51); Lymphocyte % 24.3 % (19-41); Mean Corp Hgb Conc 32.3 g/dL (32-36); Mean Corpuscular Hgb 30.8 pg (27.0-32.0); Mean Corpuscular Volume 95.4 fL (80-94); Mean Platelet Vol. 9.6 fl (6.2-12.0); Monocyte# 0.65 X10^3/uL; Monocyte% 10.2 % (0-10); NRBC Flagged by Analyzer 0 % (0-5); Neutrophil # 3.85 X10^3/uL (2.7-7.7); Neutrophil % 60.5 % (47-70); Platelet Count 226 K/mm3 (150-450); RBC Distribution Width CV 14.5 % (11.6-14.6); RBC Distribution Width SD 50.8 fl (35.1-43.9); Red Blood Count 4.97 M/mm3 (4.6-6.2); White Blood Count 6.4 K/mm3 (4.4-11.0)
[2022-06-11 10:13] LABS: International Normalized Ratio 1.8; Prothrombin Time (Protime)PT. 20.4 SECONDS (11.7-14.9)
[2022-06-11 10:37] LABS: Vitamin D,25 Hydroxy 40.8 ng/mL
[2022-06-11 10:48] LABS: ALB/GLOB Ratio 0.9 RATIO (0.9-2.4); AST(SGOT) 20 U/L (15-37); Alanine Aminotransfer ALT/SGPT 30 U/L (16-61); Albumin, Serum 3.5 g/dL (3.2-5.0); Alkaline Phosphatase 49 U/L (45-117); Anion Gap 4 (5-15); BUN 19 mg/dL (7-18); BUN/Creat Ratio 15.3 RATIO (10-20); Calcium,Total 8.9 mg/dL (8.5-10.1); Chloride 109 mmol/L (98-107); Cholesterol 155 mg/dL (200); Creatinine, Serum 1.24 mg/dL (0.70-1.30); EST Glomerular Filtration Rate 62 mL/min (>60); Est Glom Filt Rate - Afr Amer 75 mL/min (>60); Globulin 3.8 g/dL (2.2-4.2); Glucose 102 mg/dL (74-106); High Density Lipoprotein 34 mg/dL; PSA,Total - Annual Screen 0.32 ng/mL (0.00-4.00); Potassium 4.5 mmol/L (3.5-5.1); Protein, Total 7.3 g/dL (6.4-8.2); Sodium Level 140 mmol/L (136-145); Thyroid Stim Hormone (TSH) 1.66 uIU/mL (0.358-3.74); Triglycerides 141 mg/dL; Very Low Density Lipoprotein 28 mg/dL (5-40)
== END 2022-06-19 18:00 | disposition home or self-care (01) ==
LOC: LAB 09:05
PROVIDERS: PCP Internal Medicine; Referring Provider Internal Medicine Cardiovascular Disease; Visit Provider Internal Medicine Cardiovascular Disease
DX: I48.21 Permanent atrial fibrillation (principal); Z79.01 Long term (current) use of anticoagulants; J44.9 Chronic obstructive pulmonary disease, unspecified; E78.5 Hyperlipidemia, unspecified; F17.210 Nicotine dependence, cigarettes, uncomplicated; E55.9 Vitamin D deficiency, unspecified; Z12.5 Encounter for screening for malignant neoplasm of prostate
CPT/HCPCS: 36415; 36416; 80053; 80061; 82306; 84153; 84443; 85025; 85610; G0103

== ENCOUNTER 2022-07-16 08:08 | Outpatient (RCR) | payer MEDICARE, OTHER, SELFPAY ==
[2022-06-19 23:04] VITALS: BMI 29.7
[2022-06-25 08:35] LABS: Prothrombin Time Fingerstick 33.7 SEC (11.7-14.9)
[2022-07-02 08:16] LABS: INR Fingerstick 2.6
[2022-07-09 08:41] LABS: INR Fingerstick 2.4
[2022-07-16 08:15] LABS: INR Fingerstick 2.3; Prothrombin Time Fingerstick 26.6 SEC (11.7-14.9)
== END 2022-07-16 18:00 | disposition home or self-care (01) ==
LOC: LAB 08:08
PROVIDERS: PCP Internal Medicine; Referring Provider Internal Medicine Cardiovascular Disease; Visit Provider Internal Medicine Cardiovascular Disease
DX: I48.21 Permanent atrial fibrillation (principal); Z79.01 Long term (current) use of anticoagulants
CPT/HCPCS: 36416; 85610

== ENCOUNTER 2022-07-30 09:26 | Outpatient (RCR) | payer MEDICARE, OTHER, SELFPAY ==
[2022-07-21 02:05] VITALS: BMI 29.7
[2022-07-23 08:00] LABS: INR Fingerstick 2.3; Prothrombin Time Fingerstick 27.2 SEC (11.7-14.9)
[2022-07-30 09:36] LABS: INR Fingerstick 2.2; Prothrombin Time Fingerstick 25.9 SEC (11.7-14.9)
== END 2022-07-30 10:00 | disposition home or self-care (01) ==
LOC: LAB 09:26
PROVIDERS: PCP Internal Medicine; Referring Provider Internal Medicine Cardiovascular Disease; Visit Provider Internal Medicine Cardiovascular Disease
DX: I48.21 Permanent atrial fibrillation (principal); Z79.01 Long term (current) use of anticoagulants; R91.1 Solitary pulmonary nodule
CPT/HCPCS: 36416; 85610

== ENCOUNTER 2022-09-13 08:17 | Outpatient (RCR) | payer MEDICARE, OTHER, SELFPAY ==
[2022-08-21 08:11] VITALS: BMI 29.7
[2022-09-13 08:25] LABS: INR Fingerstick 2.3; Prothrombin Time Fingerstick 27.3 SEC (11.7-14.9)
== END 2022-09-13 18:00 | disposition home or self-care (01) ==
LOC: LAB 08:17
PROVIDERS: PCP Internal Medicine; Referring Provider Internal Medicine Cardiovascular Disease; Visit Provider Internal Medicine Cardiovascular Disease
DX: I48.21 Permanent atrial fibrillation (principal); Z79.01 Long term (current) use of anticoagulants; I82.501 Chronic embolism and thrombosis of unspecified deep veins of right lower extremity
CPT/HCPCS: 36416; 85610

== ENCOUNTER 2022-10-03 08:53 | Outpatient (RCR) | payer MEDICARE, OTHER, SELFPAY ==
[2022-09-17 20:02] VITALS: BMI 29.7
[2022-10-03 09:01] LABS: Prothrombin Time Fingerstick 21.5 SEC (11.7-14.9)
== END 2022-10-18 23:00 | disposition home or self-care (01) ==
LOC: LAB 08:53
PROVIDERS: PCP Internal Medicine; Referring Provider Internal Medicine Cardiovascular Disease; Visit Provider Internal Medicine Cardiovascular Disease
DX: I48.21 Permanent atrial fibrillation (principal); I82.501 Chronic embolism and thrombosis of unspecified deep veins of right lower extremity; Z79.01 Long term (current) use of anticoagulants
CPT/HCPCS: 36416; 85610

== ENCOUNTER → 2022-10-14 | Outpatient (CLI) | payer MEDICARE, OTHER, SELFPAY ==
--- NOTE | 2022-10-14 17:41 | CT_ITS ---
STUDY: CT CHEST WITH CONTRAST REASON FOR EXAM: Male, 66 years old. Post operative EP evaluation -- EP procedure at [facility] RADIATION DOSAGE (If Supplied By Facility): CTDIvol = ( 12.9 ) mGy, DLP = ( 402.90 ) mGycm TECHNIQUE: Transaxial imaging was performed following intravenous administration of IV 100mL Isovue-370. Multiplanar coronal and sagittal images were reformatted. Individualized dose optimization techniques were used for this CT. COMPARISON: Comparison is made with prior examination dated April 25, 2020. FINDINGS: CHEST Calcified granuloma in the peripheral lateral anterior aspect of the right lower lobe. There is no demonstrated pleural abnormality. There are calcifications of the coronary arteries. Normal mediastinum. Normal hilar regions. Normal unenhanced pulmonary arteries. Normal aorta arch and descending thoracic aorta. There are degenerative changes of the thoracic spine. Moderate-sized hiatal hernia. CT/CTA Chest W/WO Contrast IMPRESSION: Calcified granuloma in the right lower lobe. No acute abnormality is seen. Moderate sized hiatal hernia. Electronically Signed: Jamaal Zapata MD at 10:13 EDT ,
[2022-10-14 18:10] LABS: CREATININE FINGERSTICK 1.3 mg/dL (0.70-1.30)
== END | disposition home or self-care (01) ==
LOC: CT 17:40
PROVIDERS: PCP Internal Medicine; Referring Provider Nurse Practitioner Family; Visit Provider Nurse Practitioner Family
DX: I48.0 Paroxysmal atrial fibrillation (principal); Z98.890 Other specified postprocedural states
CPT/HCPCS: 71275; Q9967

== ENCOUNTER 2022-12-02 08:35 | Outpatient (RCR) | payer MEDICARE, OTHER, SELFPAY ==
[2022-10-19 00:11] VITALS: BMI 29.7
[2022-12-02 09:23] LABS: Absolute Lymphocyte Count 1.54 X10^3/uL (0.83-4.51); Absolute Neutrophil Count 3.4 X10^3/uL (2.0-7.7); Basophil# 0.08 X10^3/uL; Basophil% 1.3 % (0-1); Eosinophil# 0.32 X10^3/uL; Eosinophils% 5.4 % (0-5); Hematocrit 46.5 % (40-54); Hemoglobin 15.2 g/dL (13.0-16.5); Lymphocyte # 1.54 X10^3/ul (0.83-4.51); Lymphocyte % 25.8 % (19-41); Mean Corp Hgb Conc 32.7 g/dL (32-36); Mean Corpuscular Volume 94.7 fL (80-94); Mean Platelet Vol. 9.8 fl (6.2-12.0); Monocyte# 0.56 X10^3/uL; Monocyte% 9.4 % (0-10); NRBC Flagged by Analyzer 0 % (0-5); Neutrophil # 3.44 X10^3/uL (2.7-7.7); Neutrophil % 57.8 % (47-70); Platelet Count 229 K/mm3 (150-450); RBC Distribution Width CV 13.6 % (11.6-14.6); RBC Distribution Width SD 47.8 fl (35.1-43.9); Red Blood Count 4.91 M/mm3 (4.6-6.2)
[2022-12-02 09:55] LABS: International Normalized Ratio 2.1; Prothrombin Time (Protime)PT. 23.7 SECONDS (11.7-14.9)
[2022-12-02 10:15] LABS: ALB/GLOB Ratio 1.1 RATIO (0.9-2.4); AST(SGOT) 31 U/L (15-37); Alanine Aminotransfer ALT/SGPT 38 U/L (16-61); Albumin, Serum 3.9 g/dL (3.2-5.0); Alkaline Phosphatase 51 U/L (45-117); Anion Gap 7 (5-15); BUN 15 mg/dL (7-18); BUN/Creat Ratio 15.2 RATIO (10-20); Calcium,Total 9.2 mg/dL (8.5-10.1); Chloride 107 mmol/L (98-107); Cholesterol 156 mg/dL (200); Creatinine, Serum 0.99 mg/dL (0.70-1.30); EST Glomerular Filtration Rate 81 mL/min (>60); Est Glom Filt Rate - Afr Amer 98 mL/min (>60); Globulin 3.6 g/dL (2.2-4.2); Glucose 101 mg/dL (74-106); High Density Lipoprotein 41 mg/dL; Potassium 4.4 mmol/L (3.5-5.1); Protein, Total 7.5 g/dL (6.4-8.2); Sodium Level 141 mmol/L (136-145); Triglycerides 138 mg/dL; Very Low Density Lipoprotein 28 mg/dL (5-40)
== END 2022-12-18 18:00 | disposition home or self-care (01) ==
LOC: LAB 08:35
PROVIDERS: PCP Internal Medicine; Referring Provider Internal Medicine Cardiovascular Disease; Visit Provider Internal Medicine Cardiovascular Disease
DX: I48.21 Permanent atrial fibrillation (principal); I82.501 Chronic embolism and thrombosis of unspecified deep veins of right lower extremity; Z79.01 Long term (current) use of anticoagulants; E55.9 Vitamin D deficiency, unspecified; E78.5 Hyperlipidemia, unspecified; J44.9 Chronic obstructive pulmonary disease, unspecified; I45.10 Unspecified right bundle-branch block
CPT/HCPCS: 36415; 80053; 80061; 82306; 85025; 85610

== ENCOUNTER 2023-01-16 07:14 | Outpatient (RCR) | payer MEDICARE, OTHER, SELFPAY ==
[2022-12-19 08:45] VITALS: BMI 29.7
[2023-01-16 07:23] LABS: INR Fingerstick 1.8; Prothrombin Time Fingerstick 19.7 SEC (11.7-14.9)
== END 2023-01-16 18:00 | disposition home or self-care (01) ==
LOC: LAB 07:14
PROVIDERS: PCP Internal Medicine; Referring Provider Internal Medicine Cardiovascular Disease; Visit Provider Internal Medicine Cardiovascular Disease
DX: I48.21 Permanent atrial fibrillation (principal); I82.501 Chronic embolism and thrombosis of unspecified deep veins of right lower extremity; Z79.01 Long term (current) use of anticoagulants
CPT/HCPCS: 36416; 85610

== ENCOUNTER 2023-02-06 08:00 | Outpatient (RCR) | payer MEDICARE, OTHER, SELFPAY ==
[2023-01-17 21:59] VITALS: BMI 29.7
[2023-02-06 08:12] LABS: INR Fingerstick 2.8; Prothrombin Time Fingerstick 30.2 SEC (11.7-14.9)
== END 2023-02-17 18:00 | disposition home or self-care (01) ==
LOC: LAB 08:00
PROVIDERS: PCP Internal Medicine; Referring Provider Internal Medicine Cardiovascular Disease; Visit Provider Internal Medicine Cardiovascular Disease
DX: I48.21 Permanent atrial fibrillation (principal); I82.501 Chronic embolism and thrombosis of unspecified deep veins of right lower extremity; Z79.01 Long term (current) use of anticoagulants
CPT/HCPCS: 36416; 85610

== ENCOUNTER 2023-04-02 08:01 | Outpatient (RCR) | payer MEDICARE, OTHER, SELFPAY ==
[2023-02-18 00:32] VITALS: BMI 29.7
[2023-04-02 08:11] LABS: INR Fingerstick 2.7; Prothrombin Time Fingerstick 29.3 SEC (11.7-14.9)
== END 2023-04-02 18:00 | disposition home or self-care (01) ==
LOC: LAB 08:01
PROVIDERS: PCP Internal Medicine; Referring Provider Internal Medicine Cardiovascular Disease; Visit Provider Internal Medicine Cardiovascular Disease
DX: I48.21 Permanent atrial fibrillation (principal); I82.501 Chronic embolism and thrombosis of unspecified deep veins of right lower extremity; Z79.01 Long term (current) use of anticoagulants
CPT/HCPCS: 36416; 85610

== ENCOUNTER 2023-05-23 07:09 | Outpatient (RCR) | payer MEDICARE, OTHER, SELFPAY ==
[2023-04-20 02:04] VITALS: BMI 29.7
[2023-05-23 07:16] LABS: INR Fingerstick 2.2; Prothrombin Time Fingerstick 24.4 SEC (11.7-14.9)
== END 2023-06-19 18:00 | disposition home or self-care (01) ==
LOC: LAB 07:09
PROVIDERS: PCP Internal Medicine; Referring Provider Internal Medicine Cardiovascular Disease; Visit Provider Internal Medicine Cardiovascular Disease
DX: I48.21 Permanent atrial fibrillation (principal); I82.501 Chronic embolism and thrombosis of unspecified deep veins of right lower extremity; Z79.01 Long term (current) use of anticoagulants
CPT/HCPCS: 36416; 85610

== ENCOUNTER 2023-07-22 12:59 | Outpatient (RCR) | payer MEDICARE, OTHER, SELFPAY ==
[2023-06-20 03:31] VITALS: BMI 29.7
[2023-07-22 13:11] LABS: INR Fingerstick 2.3; Prothrombin Time Fingerstick 24.9 SEC (11.7-14.9)
== END 2023-07-22 18:00 | disposition home or self-care (01) ==
LOC: LAB 12:59
PROVIDERS: PCP Internal Medicine; Referring Provider Internal Medicine Cardiovascular Disease; Visit Provider Internal Medicine Cardiovascular Disease
DX: I48.21 Permanent atrial fibrillation (principal); I82.501 Chronic embolism and thrombosis of unspecified deep veins of right lower extremity; Z79.01 Long term (current) use of anticoagulants
CPT/HCPCS: 36416; 85610

== ENCOUNTER 2023-08-25 07:35 | Outpatient (RCR) | payer MEDICARE, OTHER, SELFPAY ==
[2023-08-20 22:00] VITALS: BMI 29.7
[2023-08-25 08:31] LABS: ALB/GLOB Ratio 1.1 RATIO (0.9-2.4); AST(SGOT) 30 U/L (15-37); Alanine Aminotransfer ALT/SGPT 37 U/L (16-61); Albumin, Serum 3.9 g/dL (3.2-5.0); Alkaline Phosphatase 51 U/L (45-117); Anion Gap 2 (5-15); BUN 19 mg/dL (7-18); BUN/Creat Ratio 15.8 RATIO (10-20); Calcium,Total 9.4 mg/dL (8.5-10.1); Chloride 109 mmol/L (98-107); Cholesterol 160 mg/dL (200); EST Glomerular Filtration Rate 64 mL/min (>60); Est Glom Filt Rate - Afr Amer 78 mL/min (>60); Globulin 3.7 g/dL (2.2-4.2); Glucose 113 mg/dL (74-106); High Density Lipoprotein 42 mg/dL; PSA,Total - Annual Screen 0.65 ng/mL (0.00-4.00); Potassium 4.4 mmol/L (3.5-5.1); Protein, Total 7.6 g/dL (6.4-8.2); Sodium Level 140 mmol/L (136-145); Triglycerides 178 mg/dL; Very Low Density Lipoprotein 36 mg/dL (5-40)
== END 2023-09-18 18:00 | disposition home or self-care (01) ==
LOC: LAB 07:35
PROVIDERS: PCP Internal Medicine; Referring Provider Internal Medicine Cardiovascular Disease; Visit Provider Internal Medicine Cardiovascular Disease
DX: I48.21 Permanent atrial fibrillation (principal); I82.501 Chronic embolism and thrombosis of unspecified deep veins of right lower extremity; Z79.01 Long term (current) use of anticoagulants; Z12.5 Encounter for screening for malignant neoplasm of prostate; E78.5 Hyperlipidemia, unspecified; Z13.220 Encounter for screening for lipoid disorders; Z98.890 Other specified postprocedural states; Z86.79 Personal history of other diseases of the circulatory system; I48.0 Paroxysmal atrial fibrillation; F17.210 Nicotine dependence, cigarettes, uncomplicated; E55.9 Vitamin D deficiency, unspecified
CPT/HCPCS: 36415; 80053; 80061; 84153; G0103

== ENCOUNTER 2023-10-03 12:01 | Outpatient (RCR) | payer MEDICARE, OTHER, SELFPAY ==
[2023-09-18 22:32] VITALS: BMI 29.7
[2023-10-03 12:24] LABS: INR Fingerstick 3.2; Prothrombin Time Fingerstick 31.6 SEC (11.7-14.9)
== END 2023-10-18 18:00 | disposition home or self-care (01) ==
LOC: LAB 12:01
PROVIDERS: PCP Internal Medicine; Referring Provider Internal Medicine Cardiovascular Disease; Visit Provider Internal Medicine Cardiovascular Disease
DX: I48.21 Permanent atrial fibrillation (principal); I82.501 Chronic embolism and thrombosis of unspecified deep veins of right lower extremity; Z79.01 Long term (current) use of anticoagulants
CPT/HCPCS: 36416; 85610

== ENCOUNTER 2023-11-17 07:12 | Outpatient (RCR) | payer MEDICARE, OTHER, SELFPAY ==
[2023-10-18 22:13] VITALS: BMI 29.7
[2023-11-17 07:25] LABS: INR Fingerstick 2.6; Prothrombin Time Fingerstick 26.3 SEC (11.7-14.9)
== END 2023-11-18 23:02 | disposition home or self-care (01) ==
LOC: LAB 07:12
PROVIDERS: PCP Internal Medicine; Referring Provider Internal Medicine Cardiovascular Disease; Visit Provider Internal Medicine Cardiovascular Disease
DX: I48.21 Permanent atrial fibrillation (principal); I82.501 Chronic embolism and thrombosis of unspecified deep veins of right lower extremity; Z79.01 Long term (current) use of anticoagulants
CPT/HCPCS: 36416; 85610

== ENCOUNTER → 2023-11-17 | Outpatient (CLI) | payer MEDICARE, OTHER, SELFPAY ==
--- NOTE | 2023-11-17 06:49 | CT_ITS ---
HISTORY: screening. TECHNIQUE: Helically acquired images were obtained of the chest without contrast. A radiation dose optimization technique was used for this scan. 865 images. COMPARISON: 10/14/2022, 12/26/2021, 09/15/2021. FINDINGS: LARGE AIRWAYS: Grossly patent with minimal adherent material in the central airways. LUNGS: Mild emphysema with biapical scarring. Unchanged 10 mm partially calcified right lower lobe juxtapleural nodule or plaque. Calcified right lower lobe granuloma along the fissure. Stable 3 mm triangular right fissural nodule or scar. PLEURA: No pneumothorax or significant pleural effusion. HEART/PERICARDIUM: Heart within normal limits in size with coronary artery calcification. No pericardial effusion. VESSELS: Thoracic aorta nondilated. Mild atherosclerosis. MEDIASTINUM/MEGHAN: No pathologically enlarged adenopathy. UPPER ABDOMEN: Mild hiatal hernia. BONES: Mild degenerative change. CT/Low Dose CT Lung Screening IMPRESSION: Lung-RADS category 2: Continue annual screening with low dose CT. Electronically Signed: Melba Stevens MD at 10:01 EDT ,
== END | disposition home or self-care (01) ==
LOC: CT 06:49
PROVIDERS: PCP Internal Medicine; Referring Provider Internal Medicine Critical Care Medicine; Visit Provider Internal Medicine Critical Care Medicine
DX: Z12.2 Encounter for screening for malignant neoplasm of respiratory organs (principal); F17.210 Nicotine dependence, cigarettes, uncomplicated
CPT/HCPCS: 71271

== ENCOUNTER 2024-03-15 08:35 | Outpatient (RCR) | payer MEDICARE, OTHER, SELFPAY ==
[2023-11-18 23:02] VITALS: BMI 29.7
[2024-03-15 08:50] LABS: INR Fingerstick 3.1
== END 2024-03-15 18:00 | disposition home or self-care (01) ==
LOC: LAB 08:35
PROVIDERS: PCP Internal Medicine; Referring Provider Internal Medicine Cardiovascular Disease; Visit Provider Internal Medicine Cardiovascular Disease
DX: I48.21 Permanent atrial fibrillation (principal); I82.501 Chronic embolism and thrombosis of unspecified deep veins of right lower extremity; E78.5 Hyperlipidemia, unspecified; Z79.01 Long term (current) use of anticoagulants; Z12.5 Encounter for screening for malignant neoplasm of prostate; Z13.220 Encounter for screening for lipoid disorders; Z98.890 Other specified postprocedural states; Z86.79 Personal history of other diseases of the circulatory system; I48.0 Paroxysmal atrial fibrillation; F17.210 Nicotine dependence, cigarettes, uncomplicated; E55.9 Vitamin D deficiency, unspecified
CPT/HCPCS: 36416; 85610

== ENCOUNTER 2024-04-19 07:56 | Outpatient (RCR) | payer MEDICARE, OTHER, SELFPAY ==
[2024-03-21 03:56] VITALS: BMI 29.7
[2024-04-19 08:22] LABS: INR Fingerstick 3.5; Prothrombin Time Fingerstick 34.2 SEC (11.7-14.9)
== END 2024-04-19 18:00 | disposition home or self-care (01) ==
LOC: LAB 07:56
PROVIDERS: PCP Internal Medicine; Referring Provider Internal Medicine Cardiovascular Disease; Visit Provider Internal Medicine Cardiovascular Disease
DX: Z79.01 Long term (current) use of anticoagulants
CPT/HCPCS: 36416; 85610

== ENCOUNTER 2024-07-15 09:27 | Outpatient (RCR) | payer MEDICARE, OTHER, SELFPAY ==
[2024-04-20 03:45] VITALS: BMI 29.7
[2024-07-15 09:36] LABS: INR Fingerstick 3.2; Prothrombin Time Fingerstick 32.7 SEC (11.7-14.9)
== END 2024-07-15 18:00 | disposition home or self-care (01) ==
LOC: LAB 09:27
PROVIDERS: PCP Internal Medicine; Referring Provider Internal Medicine Cardiovascular Disease; Visit Provider Internal Medicine Cardiovascular Disease
DX: I48.21 Permanent atrial fibrillation (principal); I82.501 Chronic embolism and thrombosis of unspecified deep veins of right lower extremity; E78.5 Hyperlipidemia, unspecified; Z79.01 Long term (current) use of anticoagulants; Z12.5 Encounter for screening for malignant neoplasm of prostate; Z13.220 Encounter for screening for lipoid disorders; Z98.890 Other specified postprocedural states; Z86.79 Personal history of other diseases of the circulatory system; I48.0 Paroxysmal atrial fibrillation; F17.210 Nicotine dependence, cigarettes, uncomplicated; E55.9 Vitamin D deficiency, unspecified
CPT/HCPCS: 36416; 85610

== ENCOUNTER 2024-09-02 08:35 | Outpatient (RCR) | payer MEDICARE, SELFPAY ==
[2024-07-21 04:18] VITALS: BMI 29.7
[2024-09-02 08:45] LABS: INR Fingerstick 2.9; Prothrombin Time Fingerstick 30.5 SEC (11.7-14.9)
== END 2024-09-17 18:00 | disposition home or self-care (01) ==
LOC: LAB 08:35
PROVIDERS: PCP Internal Medicine; Referring Provider Internal Medicine Cardiovascular Disease; Visit Provider Internal Medicine Cardiovascular Disease
DX: I48.21 Permanent atrial fibrillation (principal); I82.501 Chronic embolism and thrombosis of unspecified deep veins of right lower extremity; E78.5 Hyperlipidemia, unspecified; Z79.01 Long term (current) use of anticoagulants; Z12.5 Encounter for screening for malignant neoplasm of prostate; Z13.220 Encounter for screening for lipoid disorders; Z98.890 Other specified postprocedural states; Z86.79 Personal history of other diseases of the circulatory system; I48.0 Paroxysmal atrial fibrillation; F17.210 Nicotine dependence, cigarettes, uncomplicated; E55.9 Vitamin D deficiency, unspecified
CPT/HCPCS: 36416; 85610

== ENCOUNTER → 2024-10-19 | Outpatient (CLI) | payer MEDICARE, OTHER, SELFPAY | END | disposition home or self-care (01) | LOC: PSN 06:43 | PROVIDERS: PCP Internal Medicine; Referring Provider Nurse Practitioner Acute Care; Visit Provider Nurse Practitioner Acute Care | DX: J44.9 Chronic obstructive pulmonary disease, unspecified (principal) | CPT/HCPCS: 94060; 94726; 94729 ==

== ENCOUNTER 2024-11-17 08:13 | Outpatient (RCR) | payer MEDICARE, OTHER, SELFPAY ==
[2024-09-18 03:58] VITALS: BMI 29.7
[2024-10-19 08:18] LABS: INR Fingerstick 2.2; Prothrombin Time Fingerstick 24.3 SEC (11.7-14.9)
[2024-11-17 08:19] LABS: INR Fingerstick 2.5; Prothrombin Time Fingerstick 26.9 SEC (11.7-14.9)
== END 2024-11-17 18:00 | disposition home or self-care (01) ==
LOC: LAB 08:13
PROVIDERS: PCP Internal Medicine; Referring Provider Internal Medicine Cardiovascular Disease; Visit Provider Internal Medicine Cardiovascular Disease
DX: Z79.01 Long term (current) use of anticoagulants
CPT/HCPCS: 36416; 85610

== ENCOUNTER → 2024-11-17 | Outpatient (CLI) | payer MEDICARE, OTHER, SELFPAY ==
--- NOTE | 2024-11-17 08:00 | CT_ITS ---
PROCEDURE: LOW DOSE CT LUNG SCREENING (CTLUNGSCREEN), 11/17/2024 REASON FOR EXAM: SMOKER TECHNIQUE: Low dose CT (LDCT) chest was performed without contrast. Multiplanar reformats were generated. RADIATION DOSE SUMMARY: CTDlvol: 2.39 mGy DLP: 83.69 mGycm One or more dose reduction techniques were used (e.g., Automated exposure control, adjustment of the mA and/or kV according to patient size, use of iterative reconstruction technique). COMPARISON: 11/17/2023 FINDINGS: Note that evaluation of the vasculature, flor, and soft tissues is limited in the absence of IV contrast. Heart/pericardium:Moderate multivessel coronary atherosclerosis and/or stents. Trace aortic annular calcification. Aorta: Trace calcific atherosclerosis.. Pulmonary arteries: Unremarkable. Lymph nodes: Unremarkable. Lungs/pleura: Mild emphysema. New irregular mostly solid nodule in the RIGHT lung apex is difficult to discretely measure, roughly 16 x 15 mm cranially and 13 x 23 mm inferiorly, with adjacent mild stranding (series 2, images 60 and 64). Granuloma. Fissural likely intrapulmonary lymph node on the RIGHT. Airways: Unremarkable. Chest wall: Unremarkable. Upper abdomen: Small hiatal hernia.. Musculoskeletal: Mild spondylosis.. CT/Low Dose CT Lung Screening IMPRESSION: 1. New irregular 18 mm average axial diameter irregular RIGHT apical nodule wit h adjacent ground-glass. Although technically Lung-RADS 4BS as below, this may be infectious/inflammatory. Recommend CT ches t in 1 month. Additional management options as per the below. 2. Lung-RADS category: 4BS (very suspicious, >15% chance of malignancy); recomm end ct chest with contrast, PET/CT, and/or tissue sampling if solid component ?8 mm. For new large nodules that develop on an [facility] repeat screening CT, a 1 month LDCT may be recommended to address potentially infectious or inflammatory conditions. 3. Other clinically significant or potentially significant non-lung cancer find ings: Coronary arterial calcification moderate or severe. 4. Additional description as above. Recommendations per [employer]. Lung CT Screening Reporting and Data System (Lung-RADS) v. 2021 Reading Location: [id number]
== END | disposition home or self-care (01) ==
LOC: CT 07:57
PROVIDERS: PCP Internal Medicine; Referring Provider Nurse Practitioner Acute Care; Visit Provider Nurse Practitioner Acute Care
DX: F17.210 Nicotine dependence, cigarettes, uncomplicated (principal)
CPT/HCPCS: 71271

== ENCOUNTER → 2024-12-07 | Outpatient (CLI) | payer MEDICARE, OTHER, SELFPAY ==
--- NOTE | 2024-12-07 08:30 | PET_ITS ---
EXAM: PET/CT Study CLINICAL HISTORY: 68 y/o M with ABNORMAL FINDINGS IN LUNG FIELD COMPARISON: Low-dose CT lung screening 11/17/2024. TECHNIQUE: PROCEDURE: Following the intravenous administration of radionucleotide, image acquisition on a dedicated PET/CT unit was performed at one hour post injection. A preliminary CT study encompassing the Skull base, neck, chest, abdomen, pelvis, and proximal thighs was performed for purposes of attenuation correction and anatomic localization. The patient's blood glucose level was 86 mg/dL (allowable range: 50-180 mg/dL). RADIOPHARMACEUTICAL: 13.9 mCi 18F-FDG (Fluorodeoxyglucose F18) IV was injected into the patient. FINDINGS: Physiologic uptake: There may be expected metabolic uptake within the brain, tongue and floor of the mouth and larynx/vocal cords, heart, flor (many normal individuals have hilar uptake in less than 3 nodes with mildly avid hilar nodes less than 2.7 SUV), liver and spleen, system, and GI tract and symmetric muscle uptake. FDG AVID AND NON-AVID LESIONS. Reported avid SUV values (g/mL*) are maximum SUV. Average liver SUV: 2.5 NECK: No suspicious hypermetabolic lesions. CHEST: Unchanged size and morphology of the spiculated right apical pulmonary nodule, demonstrating a maximum SUV of 4.4. No hypermetabolic lymphadenopathy. ABDOMEN: No suspicious hypermetabolic lesions. PELVIS: No suspicious hypermetabolic lesions. Additional CT findings: Moderate coronary artery and thoracic aortic calcifications. Ectasia of the infrarenal abdominal aorta. Mild aortoiliac calcifications. Moderate emphysema and scattered areas of scarring. Tiny hepatic hypodensities, likely cysts but too small to characterize. Right total hip arthroplasty. Large left inguinal hernia containing nondilated large bowel loops. Thoracolumbar spondylosis. PET/PET/CT Tumor Base -Thigh Init IMPRESSION: Hypermetabolic right apical pulmonary nodule, compatible with pulmonary neoplas m. No evidence of metastatic disease. Please note the low-dose CT scan was performed to facilitate PET image reconstr uction and anatomic localization and does not replace a diagnostic CT. Any diagnostic CT requested and performed at the time of the PET will be reported separately. Reading Location: [facility]
== END | disposition home or self-care (01) ==
PROVIDERS: PCP Internal Medicine; Referring Provider Nurse Practitioner Acute Care; Visit Provider Nurse Practitioner Acute Care
DX: R91.8 Other nonspecific abnormal finding of lung field (principal); R91.1 Solitary pulmonary nodule
CPT/HCPCS: 78815; A9552

== ENCOUNTER 2025-01-17 09:45 | Outpatient (RCR) | payer MEDICARE, OTHER, SELFPAY ==
[2024-12-30 10:44] LABS: INR Fingerstick 2.6; Prothrombin Time Fingerstick 27.7 SEC (11.7-14.9)
[2025-01-06 10:08] LABS: INR Fingerstick 1.4; Prothrombin Time Fingerstick 16.5 SEC (11.7-14.9)
[2025-01-17 09:57] LABS: INR Fingerstick 2.1; Prothrombin Time Fingerstick 22.7 SEC (11.7-14.9)
== END 2025-01-17 18:00 | disposition home or self-care (01) ==
LOC: LAB 09:45
PROVIDERS: PCP Internal Medicine; Referring Provider Physician Assistant Medical; Visit Provider Physician Assistant Medical
DX: Z79.01 Long term (current) use of anticoagulants (principal)
CPT/HCPCS: 36416; 85610

== ENCOUNTER 2025-03-04 14:01 | Inpatient (IN) | payer MEDICARE, OTHER, SELFPAY ==
[2025-03-04] VITALS (32 sets, daily range): BP systolic 98–139; BP diastolic 42–78; PULSE 52–92; RESP 14–24; TEMP 36.6–37.2; O2SAT 76–100; BMI 26.3; BMI 26.6
--- NOTE | 2025-03-04 14:27 | EDS_ITS ---
HPI <KENJI Smith - Last Filed: 03/04/25 16:33> History of Present Illness Chief Complaint: Sore Throat Narrative Narrative: 69-year-old male with PMH of HLD, COPD, A-fib on Coumadin states he has had 3 days of a sore throat and cough. He was managing it with Tylenol but today he states he could not keep down his morning medications. He states as soon as the pills hit his throat they came back up. He could not keep down fluids. He has not tried food. He denies chest pain or shortness of breath. He denies concern for recent esophageal food impaction. Short he was urgent care and had a negative strep test and was sent here for evaluation. 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) New onset atrial fibrillation (02/18/20) Home Medications ?Medication ?Instructions ?Recorded ?Last Taken ?Type fluticasone propionate 50 1 spray intranasal DAILY All ergies 02/29/20 Unknown History mcg/actuation nasal spray,suspension (Flonase Allergy Relief) [id number] C-Mn 500 2 cap PO DAILY Join ts releif 02/29/20 03/03/25 History mg-400 mg capsule (Glucosamine Chondroitin Maximum Strength) famotidine 20 mg tablet 20 mg PO DAILY GERD #90 tabs 11/28/21 03/03/25 Rx loratadine 10 mg tablet (Claritin) 10 mg PO DAILY Rico rgies 06/12/22 03/03/25 History simvastatin 20 mg tablet 20 mg PO QHS Cholesterol #90 tabs 06/29/24 03/03/25 Rx budesonide 160 mcg-glycopyr 9 2 inh inhalation BID #3 ea 12/02/24 03/03/25 Rx mcg-formot 4.8 mcg/actuation HFA inhaler (BrezSpodlyi luma-idphere) metoprolol succinate 25 mg 25 mg PO DAILY BP and Heart rate 12/23/24 03/03/25 Rx tablet,extended release 24 hr control #90 tabs benzocaine 15 mg-menthol 10 mg 1 winnie mucous membrane . 4 times 03/04/25 03/04/25 Rx lozenges (Chloraseptic Max) daily PRN sore throat #15 ea warfarin 5 mg tablet See Rx Instructions PO .COMP CATALINA 03/04/25 03/03/25 History Blood thinner Allergy/AdvReac Type Severity Reaction Status Date / Time No Known Allergies Allergy Verified 03/04/25 21:05 Family History (Reviewed 12/10/24 @ 08:57 by Kylie Motta [employer] WE[employer] LOGGING CAPTAIN, [employer] ANAL[employer]IS WE[employer] LOGGING CAPTAIN-C) Father Diabetes Surgical History (Reviewed 12/10/24 @ 08:57 by Kylie Motta [employer] WE[employer] LOGGING CAPTAIN, [employer]IS WE[employer] LOGGING CAPTAIN-C) S/P ablation of atrial fibrillation History of shoulder surgery History of repair of right rotator cuff History of carpal tunnel release History of total hip arthroplasty Social History Smoking Status: Former smoker alcohol intake: current alcohol intake frequency: a few times a month Alcohol type: beer and hard liquor substance use type: does not use caffeine: Yes Type: coffee Number of servings: 10 and tea Number of servings: 2 ROS <KENJI Smith - Last Filed: 03/04/25 16:33> ROS ED ROS Narrative Constitutional: Negative for fever, chills, malaise. ENT: Positive for sore throat. CVS: Negative for chest pain. Respiratory: Negative for shortness of breath. GI: Negative for vomiting. EXAM <KENJI Smith - Last Filed: 03/04/25 16:33> Physical Exam Narrative Exam Narrative: CONST: Patient sitting in no acute distress. EYES: Normal inspection. ENT: Pharyngeal erythema without tonsillar swelling or exudate, midline uvula, no trismus, no elevation, no drooling or stridor. NECK: Normal inspection. RESP: No respiratory distress, CTAB. CVS: Regular rate and rhythm, no murmur, no gallop. SKIN: Color normal, no rash, warm, dry, intact. EXTREMITIES: Normal appearance, no pedal edema. NEURO: Alert and answering questions appropriately. PSYCH: Normal affect. Const Vital Signs: 03/04/25 14:01 03/04/25 14:29 03/04/25 14:56 Temperature 98.9 F 98.9 F Temperature Source Temporal Oral Pulse Rate 69 92 75 Respiratory Rate 16 22 H 14 Blood Pressure 129/67 H 133/56 H Blood Pressure Mean 87 81 Pulse Ox 97 99 98 Oxygen Delivery Method Room Air Room Air Room Air 03/04/25 14:57 03/04/25 15:04 03/04/25 15:17 Temperature 98 F Temperature Source Oral Pulse Rate 63 70 Respiratory Rate 24 H 16 Blood Pressure 133/56 H 133/56 H Blood Pressure Mean 81 81 Pulse Ox 100 100 100 Oxygen Delivery Method Room Air Room Air 03/04/25 15:44 03/04/25 15:45 03/04/25 15:47 Temperature Temperature Source Pulse Rate Respiratory Rate Blood Pressure 127/53 H 122/50 H Blood Pressure Mean 76 73 Pulse Ox 98 Oxygen Delivery Method 03/04/25 16:00 03/04/25 16:00 03/04/25 16:16 Temperature 98.6 F Temperature Source Oral Pulse Rate 55 L Respiratory Rate 16 Blood Pressure 139/59 H Blood Pressure Mean 85 Pulse Ox 100 100 100 Oxygen Delivery Method Room Air 03/04/25 16:21 03/04/25 16:30 03/04/25 16:31 Temperature Temperature Source Pulse Rate 61 Respiratory Rate 16 Blood Pressure 122/50 H 139/59 H Blood Pressure Mean 74 78 Pulse Ox 100 100 Oxygen Delivery Method Room Air 03/04/25 16:42 03/04/25 16:45 03/04/25 17:00 Temperature 98.9 F 98.9 F Temperature Source Oral Pulse Rate 55 L 52 L Respiratory Rate 16 20 H Blood Pressure 139/59 H 128/53 H Blood Pressure Mean 85 78 Pulse Ox 100 100 100 Oxygen Delivery Method Room Air 03/04/25 17:05 03/04/25 17:14 03/04/25 17:15 Temperature Temperature Source Pulse Rate Respiratory Rate Blood Pressure 128/53 H 135/56 H Blood Pressure Mean 74 75 Pulse Ox 76 Oxygen Delivery Method 03/04/25 17:16 03/04/25 17:35 03/04/25 17:45 Temperature Temperature Source Pulse Rate Respiratory Rate Blood Pressure Blood Pressure Mean Pulse Ox 100 98 97 Oxygen Delivery Method 03/04/25 18:00 03/04/25 18:00 Temperature 98.9 F Temperature Source Oral Pulse Rate 66 Respiratory Rate 14 Blood Pressure 125/42 H 125/42 H Blood Pressure Mean 69 70 Pulse Ox 99 Oxygen Delivery Method Room Air <Dr. Ashok Olvera MD - Last Filed: 03/05/25 06:58> Physical Exam Const Vital Signs: 03/04/25 14:01 03/04/25 14:29 03/04/25 14:56 Temperature 98.9 F 98.9 F Temperature Source Temporal Oral Pulse Rate 69 92 75 Respiratory Rate 16 22 H 14 Blood Pressure 129/67 H 133/56 H Blood Pressure Mean 87 81 Pulse Ox 97 99 98 Oxygen Delivery Method Room Air Room Air Room Air 03/04/25 14:57 03/04/25 15:04 03/04/25 15:17 Temperature 98 F Temperature Source Oral Pulse Rate 63 70 Respiratory Rate 24 H 16 Blood Pressure 133/56 H 133/56 H Blood Pressure Mean 81 81 Pulse Ox 100 100 100 Oxygen Delivery Method Room Air Room Air 03/04/25 15:44 03/04/25 15:45 03/04/25 15:47 Temperature Temperature Source Pulse Rate Respiratory Rate Blood Pressure 127/53 H 122/50 H Blood Pressure Mean 76 73 Pulse Ox 98 Oxygen Delivery Method 03/04/25 16:00 03/04/25 16:00 03/04/25 16:16 Temperature 98.6 F Temperature Source Oral Pulse Rate 55 L Respiratory Rate 16 Blood Pressure 139/59 H Blood Pressure Mean 85 Pulse Ox 100 100 100 Oxygen Delivery Method Room Air 03/04/25 16:21 03/04/25 16:30 03/04/25 16:31 Temperature Temperature Source Pulse Rate 61 Respiratory Rate 16 Blood Pressure 122/50 H 139/59 H Blood Pressure Mean 74 78 Pulse Ox 100 100 Oxygen Delivery Method Room Air 03/04/25 16:42 03/04/25 16:45 03/04/25 17:00 Temperature 98.9 F 98.9 F Temperature Source Oral Pulse Rate 55 L 52 L Respiratory Rate 16 20 H Blood Pressure 139/59 H 128/53 H Blood Pressure Mean 85 78 Pulse Ox 100 100 100 Oxygen Delivery Method Room Air 03/04/25 17:05 03/04/25 17:14 03/04/25 17:15 Temperature Temperature Source Pulse Rate Respiratory Rate Blood Pressure 128/53 H 135/56 H Blood Pressure Mean 74 75 Pulse Ox 76 Oxygen Delivery Method 03/04/25 17:16 08/15/25 17:35 03/04/25 17:45 Temperature Temperature Source Pulse Rate Respiratory Rate Blood Pressure Blood Pressure Mean Pulse Ox 100 98 97 Oxygen Delivery Method 03/04/25 18:00 03/04/25 18:00 Temperature 98.9 F Temperature Source Oral Pulse Rate 66 Respiratory Rate 14 Blood Pressure 125/42 H 125/42 H Blood Pressure Mean 69 70 Pulse Ox 99 Oxygen Delivery Method Room Air [facility] <KENJI Smith - Last Filed: 03/04/25 16:33> [facility] Narrative Medical decision making narrative: 69-year-old male presenting with inability to swallow his secretions or pills this morning. Some sore throat over the last few days. He is awake alert no distress. Vital stable. He is speaking in full sentences without stridor or wheezing. His uvula looks slightly enlarged and secretions are slowly pooling in the back of his throat and he occasionally spitting them out. There is no tonsillar swelling or exudate or signs of peritonsillar abscess. Lungs are clear. He has no rash or other signs of allergic reaction. CT soft tissue of the neck shows edema of the soft tissues of the oropharynx, hypopharynx and epiglottic folds without signs of fluid collection or abscess. There is no airway compromise. The radiologist called and states is nonspecific but it almost looks like an angioedema reaction. I informed the patient I am he denies any new foods or medication. He is not on ABI inhibitors. 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 He was treated as an allergic reaction with IV fluids, Benadryl, Solu-Medrol, Pepcid. At this time he is stable and 100% on room air so I did not give epinephrine. He will require observation. I discussed the case with the hospitalist. I have personally performed a face to face assessment of the patient and have reviewed the CARMELITA Note. I performed a substantive portion of the visit including all aspects of the following. My rose findings include: History is remarkable for hoarse voice, throat pain and this morning unable to swallow his pills. 7 difficult swallowing secretions. He denies fever, chills night sweats. He denies upper respiratory symptoms. He denies skin lesions. He is not on an ABI inhibitor or ARB. Exam is remarkable for slightly hoarse voice. Uvula is swollen. He has increased secretions pooling in the back of his throat. Question of stridor with auscultation of the neck. Trachea is midline. No pain with movement of the trachea. There is no cervical lymphadenopathy. There is no subcu mental or submandibular lymphadenopathy appreciated. There is no change in the color of her skin i.e. which is visible since he has a faustin. There is no firmness or induration noted. There is no firmness or elevation of the floor of the mouth. Medical Decision Making with him having abnormal oscillatory sounds of his neck troubles swallowing swollen uvula will obtain CT to evaluate for infection i.e. epiglottitis, lingular tonsillitis, retropharyngeal abscess. Other additions or changes: [None] History & Record Review Discussion w/independent historian: Patient and Family Lab Data Labs: Laboratory Results - last 24 hr 03/04/25 14:56 WBC 9.2 RBC 4.60 Hgb 14.6 Hct 42.4 MCV 92.2 MCH 31.7 MCHC 34.4 RDW Std Deviation 48.4 H RDW Coeff of Shailesh 14.3 Plt Count 203 MPV 9.8 Immature Gran % (Auto) 0.200 Neut % (Auto) 72.9 H Lymph % (Auto) 15.3 L [place] % (Auto) 10.6 H Eos % (Auto) 0.5 Baso % (Auto) 0.5 Absolute Neuts (auto) 6.7 Absolute Lymphs (auto) 1.40 Nucleated RBC % 0 PT 24.8 H INR 2.2 Sodium 140 Potassium 3.7 Chloride 104 Carbon Dioxide 22.3 Anion Gap 14 BUN 14 Creatinine 1.05 Estim Creat Clear Calc 69.52 Est GFR (MDRD) Non-Af 77 BUN/Creatinine Ratio 13.4 Glucose 97 Calcium 9.1 Radiography Diagnostic Testing: Clinical Impression(s) from Imaging Studies Soft Tissue Neck CT 03/04/25 14:39 IMPRESSION: 1. No abscess or collection. No lymphadenopathy. 2. Edema of the soft tissues of the oropharynx, hypopharynx extending down to false cords, aryepiglottic folds and arytenoids. Airway is not compromised at this time. Consider infection, inflammation, angioedema. 3. Left vocal cord paralysis. The findings and impression of this report were called directly to Jennifer tang at 4 p.m. Eastern standard time. Reading Location: [id number] Soft Tissue Neck X-Ray 03/04/25 14:40 IMPRESSION: Degenerative changes cervical spine. Unremarkable appearance of the soft tissues. Reading Location: [facility] <Dr. Ashok Olvera MD - Last Filed: 03/05/25 06:58> MDM MDM Narrative Medical decision making narrative: I have personally performed a face to face assessment of the patient and have reviewed the CARMELITA Note. I performed a substantive portion of the visit including all aspects of the following. My rose findings include: History is remarkable for hoarse voice, throat pain and this morning unable to swallow his pills. 7 difficult swallowing secretions. He denies fever, chills night sweats. He denies upper respiratory symptoms. He denies skin lesions. He is not on an ABI inhibitor or ARB. Exam is remarkable for slightly hoarse voice. Uvula is swollen. He has increased secretions pooling in the back of his throat. Question of stridor w ith auscultation of the neck. Trachea is midline. No pain with movement of the trachea. There is no cervical lymphadenopathy. There is no subcu mental or submandibular lymphadenopathy appreciated. There is no change in the color of her skin i.e. which is visible since he has a faustin. There is no firmness or induration noted. There is no firmness or elevation of the floor of the mouth. Medical Decision Making with him having abnormal oscillatory sounds of his neck troubles swallowing swollen uvula will obtain CT to evaluate for infection i.e. epiglottitis, lingular tonsillitis, retropharyngeal abscess. Other additions or changes: [None] Lab Data Attestation: I reviewed the patient's lab results. Lab results narrative: White count is unremarkable. Electrolyte panel is unremarkable. Labs: Laboratory Results - last 24 hr 03/04/25 14:56 WBC 9.2 RBC 4.60 Hgb 14.6 Hct 42.4 MCV 92.2 MCH 31.7 MCHC 34.4 RDW Std Deviation 48.4 H RDW Coeff of Shailesh 14.3 Plt Count 203 MPV 9.8 Immature Gran % (Auto) 0.200 Neut % (Auto) 72.9 H Lymph % (Auto) 15.3 L [place] % (Auto) 10.6 H Eos % (Auto) 0.5 Baso % (Auto) 0.5 Absolute Neuts (auto) 6.7 Absolute Lymphs (auto) 1.40 Nucleated RBC % 0 PT 24.8 H INR 2.2 Sodium 140 Potassium 3.7 Chloride 104 Carbon Dioxide 22.3 Anion Gap 14 BUN 14 Creatinine 1.05 Estim Creat Clear Calc 69.52 Est GFR (MDRD) Non-Af 77 BUN/Creatinine Ratio 13.4 Glucose 97 Calcium 9.1 Radiography Chest X-Ray - ED: 2 View (Negative for evidence of epiglottitis, prevertebral soft tissue swelling to rule out retropharyngeal abscess.) and Read by ED Physician ([id number].) Diagnostic Testing: Clinical Impression(s) from Imaging Studies Soft Tissue Neck CT 03/04/25 14:39 IMPRESSION: 1. No abscess or collection. No lymphadenopathy. 2. Edema of the soft tissues of the oropharynx, hypopharynx extending down to false cords, aryepiglottic folds and arytenoids. Airway is not compromised at this time. Consider infection, inflammation, angioedema. 3. Left vocal cord paralysis. The findings and impression of this report were called directly to Jennifer Goel at 4 p.m. Eastern standard time. Reading Location: [id number] Soft Tissue Neck X-Ray 03/04/25 14:40 IMPRESSION: Degenerative changes cervical spine. Unremarkable appearance of the soft tissues. Reading Location: [id number] Management Discussion w/another healthcare provider: Hospitalist (Will discuss case with Dr. Cedeno. Disposition is admission question is what unit patient should go to.) <Dr. 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
--- NOTE | 2025-03-04 14:39 | CT_ITS ---
PROCEDURE: SOFT TISSUE NECK WITH CONTRAST 03/04/2025 REASON FOR EXAM: SORE THROAT TECHNIQUE: SOFT TISSUE NECK WITH CONTRAST CONTRAST: Isovue 370 VOLUME: 98 mL One or more dose reduction techniques were used (e.g., Automated exposure control, adjustment of the mA and/or kV according to patient size, use of iterative reconstruction technique). RADIATION DOSE SUMMARY: CTDlvol: 18.8 mGy DLP: 613 mGycm COMPARISON: X-ray of the same day FINDINGS: Airway: Patent. However, the soft tissues of the oropharynx, hypopharynx are edematous. No abscess is seen. Larynx: The soft tissues around the larynx including the false cords, aryepiglottic folds and arytenoids are edematous. Minimal edema of the epiglottis. This is not particularly significant. However, the edema extends up to the upper esophageal sphincter region. There is dilation of the left laryngeal ventricle suggesting vocal cord paralysis. Salivary glands: Submandibular, parotid glands appear unremarkable. Lymph nodes: None appear enlarged. Thyroid: Normal Vasculature: Some atherosclerosis at the carotid bulb on the right. Minimal edema around the right carotid sheath near the level of the bulb. Orbits: Unremarkable Paranasal sinuses and mastoids: Clear Lung apices: Scarring right lung apex anteriorly. Upper mediastinum: No mass Bones: Degenerative changes lower cervical spine. CT/Soft Tissue Neck WITH Contrast IMPRESSION: 1. No abscess or collection. No lymphadenopathy. 2. Edema of the soft tissues of the oropharynx, hypopharynx extending down to false cords, aryepiglottic folds and arytenoids. Airway is not compromised at this time. Consider infection, inflammation, blanca oedema. 3. Left vocal cord paralysis. The findings and impression of this report were called directly to Jennifer bynum at 4 p.m. Eastern standard time. Reading Location: [id number]
--- NOTE | 2025-03-04 14:40 | RAD_ITS ---
PROCEDURE: NECK FOR SOFT TISSUE 03/04/2025 REASON FOR EXAM: SORE THROAT TECHNIQUE: NECK FOR SOFT TISSUE COMPARISON: December 07, 2024 PET/CT FINDINGS: Bones: Mild to moderate disc space narrowing C4/5, C5/6 and C6/7 with marginal endplate spurring and uncinate spurring. Joints: Mild facet hypertrophy lower cervical spine. Soft tissues: Mild atherosclerotic plaque left carotid bulb region. No prevertebral soft tissue swelling. Other: No foreign body RAD/Neck for Soft Tissue IMPRESSION: Degenerative changes cervical spine. Unremarkable appearance of the soft tissu es. Reading Location: [id number]
[2025-03-04] MEDS: Famotidine 200 MG/20 ML MDV 20 MG in 0.9% Normal Saline (Pres. free 8 ML 300 MG IV ×2 (16:38→22:39)
[2025-03-04] MEDS: 0.9% Normal Saline (1000mL) 1,000 ML 999 ML IV (16:38)
[2025-03-04] MEDS: DiphenhydrAMINE 50 MG/ML Syringe IV (16:38)
[2025-03-04 17:06] LABS: Hematocrit 42.4 % (40-54); Hemoglobin 14.6 g/dL (13.0-16.5); Immature Granulocytes Count 0.020 X10^3/uL (0.0-0.0); Mean Corp Hgb Conc 34.4 g/dL (32-36); Mean Corpuscular Volume 92.2 fL (80-94); Mean Platelet Vol. 9.8 fl (6.2-12.0); NRBC Flagged by Analyzer 0 % (0-5); Platelet Count 203 K/mm3 (150-450); RBC Distribution Width CV 14.3 % (11.6-14.6); RBC Distribution Width SD 48.4 fl (35.1-43.9); Red Blood Count 4.60 M/mm3 (4.6-6.2); White Blood Count 9.2 K/mm3 (4.4-11.0)
[2025-03-04 17:24] LABS: Anion Gap 14 (5-15); BUN 14 mg/dL (4-19); BUN/Creat Ratio 13.4 RATIO (10-20); Calcium,Total 9.1 mg/dL (7.6-11.0); Carbon Dioxide 22.3 mmol/L (21.0-32.0); Chloride 104 mmol/L (98-108); Estimated Creatinine Clearance 69.52 ml/min (50-250); Glucose 97 mg/dL (70-99); Potassium 3.7 mmol/L (3.3-5.1)
--- NOTE | 2025-03-04 18:13 | HP.PCM.HOS_ITS ---
HPI - General General Date of Admission: 03/04/25 Date of Service: 03/04/25 Chief Complaint: Difficulty swallowing medications HPI Narrative RICH JAMES, is a 69-year-old male history of A-fib on Coumadin, COPD, hyperlipidemia, depression presented to [facility] ED 03/04/2025 with 3 days of sore throat and cough. He had been managing it with Tylenol but this a.m. could not keep down his morning medications because as soon medicines hit his throat they come back up and he could not keep down fluids at that time. No shortness of breath or chest pain. No concern for esophageal food impaction. Went to urgent care and had negative strep test and was sent to the ED for further evaluation. In the ED temp 98.9, heart rate 69 and blood pressure 129/67, respiratory rate 16 and pulse ox 97% on room air. Patient was not in acute distress with no voice changes, stridor, wheezing. He had CT of soft tissue of the neck which showed edema of soft tissues of the oropharynx, hypopharynx and epiglottic folds without sign of fluid collection or abscess and no airway compromise. Radiologist said it was nonspecific but almost looked like an angioedema like reaction. Patient not on ABI inhibitor and has no foods that were new or medications, did disassemble something that was very elder and used a leaf blower to clean out a semitruck. Patient treated in ED like an allergic reaction and given IV fluids, Benadryl, Solu-Medrol and Pepcid. Hospitalist contacted for admission for observation. Lab workup with normal hemoglobin and white blood cell count, BMP within normal limits. Patient evaluated at bedside. He and report that on Friday he blew out a semi with a leaf blower and that it was caked with rest and likely other corrosive substances, he began to have a sore throat on Friday and symptoms progressed and this a.m. he was having difficulty drinking or getting pills down prompting them to come to the ED. Since patient got cocktail in the ED he does report he is feeling little bit better than he did, denies any fevers at home, has a little bit of a headache right now, protecting airway and better able to swallow secretions, felt a little nauseous when he laid flat earlier but not at this time, denies any shortness of breath, no productive cough, no chest pain. No rashes, bleeding, bruising. 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) New onset atrial fibrillation (02/18/20) Home Medications ?Medication ?Instructions ?Recorded ?Last Taken ?Type fluticasone propionate 50 1 spray intranasal DAILY 06/09 Unknown History mcg/actuation nasal spray,suspension (Flonase Allergy Relief) [id number] C-Mn 500 1 cap PO DAILY 02/18 08/09 Unknown History mg-400 mg capsule (Glucosamine Chondroitin Maximum Strength) famotidine 20 mg tablet 20 mg PO DAILY #90 tabs 11/1806/04/22 Rx loratadine 10 mg tablet (Claritin) 10 mg PO DAILY 05/22 10/09 Unknown History simvastatin 20 mg tablet 20 mg PO QHS #90 tabs Unknown Rx budesonide 160 mcg-glycopyr 9 2 inh inhalation BID #3 ea 12/02/24 Unknown Rx mcg-formot 4.8 mcg/actuation HFA inhaler (Breztri Aerosphere) bupropion HCl (smoking deter) 150 150 mg PO BID #60 ta bs 12/02/24 Unknown Rx mg tablet,12 hr sustained-release(smoking deterrent) metoprolol succinate 25 mg 25 mg PO DAILY #90 tabs 12/12 Unknown Rx tablet,extended release 24 hr benzocaine 15 mg-menthol 10 mg 1 winnie mucous membrane . 4 times 03/04/25 Unknown Rx lozenges (Chloraseptic Max) daily PRN sore throat #15 ea warfarin 5 mg tablet See Rx Instructions PO .COMP [place] 03/04/25 Unknown History Allergy/AdvReac Type Severity Reaction Status Date / Time No Known Allergies Allergy Verified 03/04/25 08:08 Family History Father Diabetes Surgical History S/P ablation of atrial fibrillation History of shoulder surgery History of repair of right rotator cuff History of carpal tunnel release History of total hip arthroplasty Social History Smoking Status: Former smoker alcohol intake: current alcohol intake frequency: a few times a month Alcohol type: beer and hard liquor substance use type: does not use caffeine: Yes Type: coffee Number of servings: 10 and tea Number of servings: 2 ROS ROS Narrative General: Denies fever/chills HENT: Little bit of a headache and has had a sore throat EYES: Denies changes in vision Resp: denies shortness of breath Cardiac: Denies chest pain GI: Denies abdominal pain, denies changes in bowel, felt a little nauseous earlier : Denies changes in urination Extremity: Denies swelling in extremities MSK: Denies weakness Neuro: Denies any numbness/tingling Heme: Denies any bleeding or bruising Skin: Denies rashes Psychiatric: No complaints voiced Vital Signs Vital Signs Vital Signs: 03/04/25 14:01 03/04/25 14:29 03/04/25 14:56 Temperature 98.9 F 98.9 F Temperature Source Temporal Oral Pulse Rate 69 92 75 Respiratory Rate 16 22 H 14 Blood Pressure 129/67 H 133/56 H Blood Pressure Mean 87 81 Pulse Ox 97 99 98 Oxygen Delivery Method Room Air Room Air Room Air 03/04/25 14:57 03/04/25 15:04 03/04/25 16:00 Temperature 98 F 98.6 F Temperature Source Oral Oral Pulse Rate 63 70 55 L Respiratory Rate 24 H 16 16 Blood Pressure 133/56 H 133/56 H 139/59 H Blood Pressure Mean 81 81 85 Pulse Ox 100 100 100 Oxygen Delivery Method Room Air Room Air Room Air 03/04/25 16:21 03/04/25 16:42 03/04/25 17:00 Temperature 98.9 F 98.9 F Temperature Source Oral Pulse Rate 61 55 L 52 L Respiratory Rate 16 16 20 H Blood Pressure 122/50 H 139/59 H 128/53 H Blood Pressure Mean 74 85 78 Pulse Ox 100 100 100 Oxygen Delivery Method Room Air Room Air 03/04/25 18:00 Temperature 98.9 F Temperature Source Oral Pulse Rate 66 Respiratory Rate 14 Blood Pressure 125/42 H Blood Pressure Mean 69 Pulse Ox 99 Oxygen Delivery Method Room Air Weight Weight: 83.143 kg Body Mass Index (BMI) 26.3 Physical Exam Narrative General: Alert, oriented HEENT: Normocephalic, does have some bags under eyes Eyes: Anicteric, normal conjunctiva, extraocular movements grossly intact Neck: Some erythema posterior pharynx, no acute abnormalities under tongue sublingually, no focal areas of fluctuance on palpation under mandible or neck, patient seems to be handling secretions well and there is no stridor or wheezing Respiratory: Clear to auscultation bilaterally, normal respiratory effort Cardiovascular: Regular rate and rhythm GI: Soft, nontender, nondistended Extremities: No edema Musculoskeletal: Moving all extremities Neuro: No overt focal neurological deficits Skin: No rashes appreciated Psych: Cooperative Results Lab / Micro Data 03/04/25 14:56 03/04/25 14:56 Labs: Laboratory Results - last 24 hr 03/04/25 14:56: WBC 9.2, RBC 4.60, Hgb 14.6, Hct 42.4, MCV 92.2, MCH 31.7, MCHC 34.4, RDW Std Deviation 48.4 H, RDW Coeff of Shailesh 14.3, Plt Count 203, MPV 9.8, Immature Gran % (Auto) 0.200, Neut % (Auto) 72.9 H, Lymph % (Auto) 15.3 L, [place] % (Auto) 10.6 H, Eos % (Auto) 0.5, Baso % (Auto) 0.5, Absolute Neuts (auto) 6.7, Absolute Lymphs (auto) 1.40, Nucleated RBC % 0, Sodium 140, Potassium 3.7, Chloride 104, Carbon Dioxide 22.3, Anion Gap 14, BUN 14, Creatinine 1.05, Estim Creat Clear Calc 69.52, Est GFR (MDRD) Non-Af 77, BUN/Creatinine Ratio 13.4, Glucose 97, Calcium 9.1 Imaging Radiology Impression Soft Tissue Neck CT 03/04/25 14:39 IMPRESSION: 1. No abscess or collection. No lymphadenopathy. 2. Edema of the soft tissues of the oropharynx, hypopharynx extending down to false cords, aryepiglottic folds and arytenoids. Airway is not compromised at this time. Consider infection, inflammation, angioedema. 3. Left vocal cord paralysis. The findings and impression of this report were called directly to Jennifer Goel at 4 p.m. Eastern standard time. Reading Location: [facility] Soft Tissue Neck X-Ray 03/04/25 14:40 IMPRESSION: Degenerative changes cervical spine. Unremarkable appearance of the soft tissues. Reading Location: [facility] Assessment & Plan Assessment/Plan (1) Dysphagia: PLAN: Plan # Soft tissue swelling of oropharynx, hypopharynx, epiglottic folds - No sign of fluid collection or abscess and no airway compromise - Patient given IV fluids, Benadryl, Solu-Medrol and Pepcid -He does feel he is improving some since he received this medications, seems to be handling secretions at this time - Will continue steroids and famotidine and close monitoring -Continue n.p.o., keep head of bed elevated, pending clinical progress can try to advance diet tomorrow versus speech therapy consult for evaluation - No infectious signs or symptoms at this time and patient afebrile with no increased white blood cell count, no antibiotics seem to be indicated at this time -This happened after patient directly inhaled what was assumed to be rest and other corrosive substances, suspect this is secondary to that, no new medication changes or other acute changes that would seem to account for this change #Hx COPD -Continue home inhalers -Incentive spirometer #Paroxysmal Atrial Fibrillation -Rate control: On oral metoprolol, can consider IV metoprolol if patient will have prolonged n.p.o. -Anticoagulation: Coumadin, resume when patient cleared to tolerate p.o., INR presently therapeutic #Depression/anxiety -Continue home medications when safe to do so #DVT ppx: SCDs Donna Cedeno MD Charges/Coding Visit Charges Inpatient E&M: 48316 Init Hosp L2
[2025-03-04 18:50] LABS: Prothrombin Time (Protime)PT. 24.8 SECONDS (11.7-14.9)
--- OUTSIDE RECORDS SUMMARY | 2025-03-04 20:05 | XMS RPT_ITS | CCD ---
Author Organization [facility] Care Team Providers Care Video Tape Editor Name Role Phone Mitchell Hernandez MD Unavailable Dr. Marion Feng Primary Care Provider Dr. Marion Feng Referring Provider [phone] Sreekanth PHILLIP, KENJI Ramírez Attending Provider Ángela MANAGER OF HOSPITAL, MANAGER OF HOSPITALJluisC Kylie Attending Provider Dr. Jose Hylton Attending Provider Dr. Marion Feng Attending Provider [phone] Dr. Marion Feng Primary Care Provider Dr. Marion Feng Referring Provider [phone] Dr. Brandon Anders Attending Provider MAGEN AYON Consulting Unavailable MITCHELL HERNANDEZ MD Admitting Unavailable MITCHELL HERNANDEZ MD Primary Care Unavailable MITCHELL HERNANDEZ MD Attending Unavailable PROVIDER, UNKNOWN Consulting Unavailable MAGEN AYON Consulting Unavailable MITCHELL HERNANDEZ MD Admitting Unavailable MITCHELL HERNANDEZ MD Primary Care Unavailable MITCHELL HERNANDEZ MD Attending Unavailable PROVIDER, UNKNOWN Consulting Unavailable Dr. Marion Feng Primary Care Provider Dr. Marion Feng Attending Provider [phone] Dr. Marion Feng Referring Provider [phone] Kiki MANAGER OF HOSPITALANA Attending Provider Dr. Marion Feng Primary Care Provider Dr. Marion Feng Referring Provider [phone] Dr. Jose Hylton Attending Provider [phone] Jose Hylton Other Provider Dr. Jose Hylton Referring Provider [phone] Magen Ayon MD Primary Care Provider Dr. Marion Feng Primary Care Provider Dr. Marion Feng Referring Provider [phone] Dr. Brandon Anders Attending Provider Dr. Marion Feng Primary Care Provider Dr. Marion Feng Referring Provider [phone] Roof MANAGER OF HOSPITAL, MANAGER OF HOSPITAL-Giovani Traore Attending Provider [phone] Dr. Jose Hylton Attending Provider [phone] Jose Hylton Other Provider Dr. Jose Hylton Referring Provider [phone] Brandon Anders Attending Provider Sreekanth PHILLIP, [place] Kassy Ramírez Attending Provider Dr. Yayo Muñiz Attending Provider Magen Ayon MD Primary Care Provider Dr. Marion Feng Primary Care Provider Dr. Jose Hylton Other Provider Dr. Jose Hylton Attending Provider [phone] Dr. Jose Hylton Referring Provider [phone] Marion Feng Referring Provider [phone] Dr. Marion Feng Attending Provider [phone] Roof MANAGER OF HOSPITAL, MANAGER OF HOSPITAL-Giovani Traore Attending Provider Dr. Brandon Anders Attending Provider Dr. Marion Feng Primary Care Provider Dr. Marion Feng Referring Provider [phone] Roof MANAGER OF HOSPITAL, MANAGER OF HOSPITAL-Giovani Traore Attending Provider Dr. Brandon Anders Attending Provider Marion Feng MD Primary Care Provider [phone] Dr. Marion Feng Primary Care Provider Dr. Marion Feng Referring Provider [phone] [facility] MANAGER OF HOSPITAL, MANAGER OF HOSPITAL-C Hi Traore Attending Provider Dr. Marion Feng Attending Provider [phone] Dr. Marion Feng Primary Care Provider Dr. Marion Feng Referring Provider Dr. Marion Feng Attending Provider Dr. Brandon Anders Attending Provider Dr. Marion Feng Primary Care Provider Dr. Marion Feng Referring Provider Dr. Jose Hylton Attending Provider PRIYANKA, INDIRESHA Referring Unavailable MARION FENG Primary Care Unavailable PRIYANKA, INDIRESHA Attending Unavailable AYON, KEVIN Primary Care Unavailable PRIYANKA, INDIRESHA Attending Unavailable MARION FENG Primary Care Unavailable PRIYANKA, INDIRESHA Attending Unavailable PRIYANKA, INDIRESHA Referring Unavailable AYON, KEVIN Primary Care Unavailable PRIYANKA, INDIRESHA Admitting Unavailable NIKITA ORTIZ Attending Unavailable MARION FENG Primary Care Unavailable NIKITA ORTIZ Attending Unavailable MARION FENG Primary Care Unavailable PRIYANKA, INDIRESHA Referring Unavailable MARION FENG Primary Care Unavailable Dr. Marion Feng Primary Care Provider Dr. Marion Feng Attending Provider Marion Feng MD Primary Care Provider [phone] Dr. Marion Feng MD Primary Care Provider Dr. Jose Hylton MD Attending Provider [phone] Dr. Jose Hylton MD Referring Provider [phone] Roof MANAGER OF HOSPITAL-C, Hi H Other Provider Motta MANAGER OF HOSPITAL-C, Kylie Attending Provider Motta MANAGER OF HOSPITAL-C, Kylie Referring Provider Jung HEDRICK, Dr. Gupta Primary Care Provider Warner HEDRICK, Dr. Garcia Attending Provider [phone] Warner HEDRICK, Dr. Garcia Referring Provider [phone] Roof MANAGER OF [facility]OSP[facility]-C, Hi H Other Provider Jung HEDRICK, Dr. Gupta Referring Provider Marion Feng Primary Care Provider Ángela, Kylie Unavailable Jung HEDRICK, Dr. Gupta Primary Care Provider Warner HEDRICK, Dr. Garcia Attending Provider [phone] Wraner EHDRICK, Dr. Garcia Referring Provider [phone] Roof MANAGER [facility]-C, Hi H Other Provider Kassy Ramesh Attending Provider [phone] Kassy Ramesh Referring Provider [phone] Motta MANAGER OF HOSPITAL, Kylie Referring Unavailable Motta MANAGER OF HOSPITAL, Kylie Attending Unavailable Jung, Marion Primary Care Unavailable Motta MANAGER OF HOSPITAL, Kylie Referring Unavailable Jung, Marion Primary Care Unavailable Motta MANAGER OF HOSPITAL, Kylie Attending Unavailable Motta MANAGER OF HOSPITAL, Kylie Referring Unavailable Yayo Muñiz Attending Unavailable Jung, Marion Primary Care Unavailable Jung, Marion Referring Unavailable Roof MANAGER OF HOSP[facility], Hi H Attending Unavailable Jung, Marion Primary Care Unavailable Jung, Marion Primary Care Unavailable Motta MANAGER OF HOSPITAL, Kylie Attending Unavailable Jung, Marion Referring Unavailable Jung, Marion Referring Unavailable Jung, Marion Primary Care Unavailable Motta MANAGER OF HOSPITAL, Kylie Attending Unavailable Motta MANAGER OF HOSPITAL, Kylie Attending Unavailable Jung, Marion Primary Care Unavailable Jung, Marion Referring Unavailable Roof MANAGER OF HOSPITAL, Hi H Attending Unavailable Jung, Marion Primary Care Unavailable Jung, Marion Referring Unavailable Jung, Marion Primary Care Unavailable Kassy Ramesh Referring Unavail able Kassy Ramesh Attending Unavail able Jung, Marion Primary Care Unavailable Roof MANAGER OF HOSP[facility], Hi H Consulting Unavailable Warner, Jose Referring Unavailable Warner, Jose Attending Unavailable Roof MANAGER OF HOSP[facility], Hi H Consulting Unavailable Jung, Marion Primary Care Unavailable Warner, Jose Attending Unavailable Warner, Jose Referring Unavailable Roof MANAGER OF HOSP[facility], Hi H Consulting Unavailable Jung, Marion Primary Care Unavailable Warner, [place] Attending Unavailable Warner, [place] Referring Unavailable Roof MANAGER OF HOSPITAL, Hi H Consulting Unavailable Jung, Marion Primary Care Unavailable Warner, Jose Attending Unavailable Warner, [place] Referring Unavailable Roof MANAGER OF HOSP[facility], Hi H Consulting Unavailable Jung, Marion Primary Care Unavailable Warner, [place] Referring Unavailable Warner, [place] Attending Unavailable Motta MANAGER OF HOSPITAL, Kylie Attending Unavailable Roof MANAGER OF HOSP[facility], Hi H Consulting Unavailable Jung, Marion Primary Care Unavailable Warner, [place] Attending Unavailable Warner, [place] Referring Unavailable Jung, Marion Primary Care Unavailable Kassy Ramesh Referring Unavail able Kassy Ramesh Attending Unavail able SARAH LUNA Attending Unavailable JUNG, MARION Primary Care Unavailable ELI MANUEL Attending Unavailable JUNG, MARION Primary Care Unavailable SARAH LUNA Attending Unavailable JUNG, MARION Primary Care Unavailable SARAH LUNA Admitting Unavailable SARAH LUNA Attending Unavailable JUNG, MARION Primary Care Unavailable Dr. Marion Feng MD Primary Care Provider Ángela RIVERA-Kylie Matute Attending Provider Ángela RIVERA-CKylie Referring Provider Renny Rhoades Attending Provider Allergies Allergy Classification Reported Allergen(s) Allergy Type Date of Onset Reaction(s) Facility (1 source) PLANT POLLENS; Translations: [PLANT POLLENS] allergy to substance 02-08-20 [facility] Work Phone: (10 sources) Seasonal allergy; Translations: [SEASONAL ALLERGIES] Allergy to substance 02-18-20 Other: See Comments [facility] Work Phone: (3 sources) Seasonal allergy Environmental allergy 02-18-20 Other [facility] Medications Current Medications Medication Drug Class(es) Dates Sig (Normalized) Sig (Original) acetaminophen 500 mg oral tablet (6 sources) Start: 01-14-2025 End: 01-24-2025 take 2 tablets by mouth every eight hours acetaminophen (Tylenol) 500 MG tablet Take 2 tablets (1,000 mg) by mouth every 8 hours for 10 days. 01/14/2025 01/24/2025 Active Start: 01-11-2025 End: 01-14-2025 take 1 tablet by mouth every eight hours 1,000 mg, Oral, Every 8 hours, First dose (after last modification) on Fri01/11/25 at 0945, Recovery & On Unit, Give in addition to any other pain medication ordered at same time for any pain indication. Start: 01-10-2025 End: 01-10-2025 1,000 mg, Oral, Once, On Fri01/10/25 at 0630, For 1 dose, Preprocedure, Administer 60 minutes prior to surgery. Start: 01-10-2025 End: 01-10-2025 1,000 mg, Oral, Once, On Fri01/10/25 at 0630, For 1 dose, Preprocedure, Administer 60 minutes prior to surgery. benzocaine 15 mg / menthol 10 mg oral lozenge (1 source) Standardized Chemical Allergen Start: 03-04-2025 Benzocaine-Menthol (Chloraseptic Max) 15-10 mg lozenge Active 1 NMA MUCOUS MEM .4 times daily as needed for sore throat March 04, 2025 12:00am Budesonide-Glycopyr -Formoterol (15 sources) Corticosteroid, beta2-Adrenergic Agonist Start: 12-02-2024 Budesonide-Glycopyr- Formot dorina (Breztri Aerosphere) 160-9-4.8 mcg/actuation HFA aerosol inhaler Active 2 NMA INHALATION TWICE A DAY 3 December 02, 2024 8:04am Start: 12-02-2024 Budesonide-Gly copyr-Formoterol (Breztri Aerosphere) 160-9-4.8 mcg/actuation HFA aerosol inhaler Active 2 NMA INHALATION TWICE A DAY December 02, 2024 8:04am Start: 03-15-2024 End: 12-02-2024 Nizctfshfh-Gcfrjwka-Jlqjdfth ol (Breztri Aerosphere) 160-9-4.8 mcg/actuation HFA aerosol inhaler Discontinued 2 NMA INHALATION TWICE A DAY 3 3 March 15, 2024 12:00am December 02, 2024 8:04am Start: 03-15-2024 End: 12-02-2024 Xojnswqoho-Waibvkon-Pvurzepy ol (Breztri Aerosphere) 160-9-4.8 mcg/actuation HFA aerosol inhaler Discontinued 2 NMA INHALATION TWICE A DAY 3 March 15, 2024 12:00am December 02, 2024 8:04am Start: 03-15-2024 Budesonide-Gly copyr-Formoterol (Breztri Aerosphere) 160-9-4.8 mcg/actuation HFA aerosol inhaler Active 2 NMA INHALATION TWICE A DAY 3 March 15, 2024 12:00am Budeson-Glycopyr rol-Formoterol (Breztri Aerosphere) 160-9-4.8 MCG/ACT aerosol Inhale 2 Inhalations 2 times daily. Active 0.8 ml enoxaparin sodium 100 mg/ml prefilled syringe (20 sources) Low Molecular Weight Heparin Start: 12-28-2024 inject 80 mg by subcutaneous injection every twelve hours Enoxaparin 80 mg/0.8 mL syringe Active 80 mg SC .COMPLEX 8 December 28, 2024 12:00am 80 mg subcutaneously every 12 hours to bridge prior to surgery; Start: 10-16-2021 End: 11-28-2021 Enoxaparin 100 mg/mL syringe Discontinued 100 mg SC Q12H 1 October 26, 2021 10:07am November 28, 2021 8:10am Bridging for surgery for clotting disorder Start: 10-16-2021 End: 11-28-2021 Enoxaparin Discontinued 100 MG SC Q12H October 26, 2021 10:07am November 28, 2021 8:10am Start: 10-15-2021 End: 10-16-2021 Enoxaparin 100 mg/mL syringe Discontinued 90 mg SC Q12H 04 20October 15, 2021 12:00am October 16, 2021 10:37am Bridging for surgery Start: 10-15-2021 End: 10-16-2021 Enoxaparin Discontinued 90 M G SC Q12H October 15, 2021 12:00am October 16, 2021 10:37am Start: 04-18-2021 End: 09-07-2021 Enoxaparin (Lovenox) 100 mg/ mL syringe Discontinued 100 mg SC Q12H 12 April 18, 2021 3:31pm September 07, 2021 3:38pm fluticasone propionate 0.05 mg/actuat metered dose nasal spray (20 sources) Corticosteroid Start: 02-29-2020 take 1 spray(s) nasal route once daily Fluticasone Propionate (Flonase Allergy Relief) 50 mcg/actuation spray,suspension Active 1 SPRAY INTRANASAL DAILY February 29, 2020 12:00am administer into each nostril Start: 06-17-2018 take 50 ug nasal rou te once daily Fluticasone Propionate (Flonase Allergy Relief) 50 mcg/actuation spray,suspension Active 1 NMA INTRANASAL DAILY February 29, 2020 12:00am administer into each nostril End: 01-14-2025 take 1 spray(s) nasal route once daily fluticasone (Flonase) 50 MCG/ACT nasal spray Administer 1 spray into each nostril daily. Shake gently. Before first use, prime pump. After use, clean tip and replace cap. 01/14/2025 Discontinued (Stop taking at discharge) Comment on above: Use 1-2 Sprays in ea ch nostril once daily. DAILY Glucosamine-Chondroit -Vit C-Mn (Glucosamine Chondroitin Maxstr) 500-400 mg capsule (20 sources) Start: 02-29-2020 take 1 capsule by mouth once daily Glucosamine-Chondroi t-Vit C-Mn (Glucosamine Chondroitin Maxstr) 500-400 mg capsule Active 1 CAP PO DAILY February 29, 2020 9:20pm Start: 02-29-2020 Glucosamine-Ch ondroit-Vit C-Mn (Glucosamine Chondroitin Maxstr) 500-400 mg capsule Active 1 NMA PO DAILY February 29, 2020 12:00am Start: 02-29-2020 take 1 capsule by mo [facility] once daily Gfpwehztcdg-Ykvmijayj-Nao C-Mn (Glucosamine Chondroitin Maxstr) 500-400 mg capsule Active 1 CAP PO DAILY February 28, 2020 11:00pm Start: 02-29-2020 take 1 capsule by [facility] once daily Hrnsulejugp-Ymtmvtlts-Bvc C-Mn (Glucosamine Chondroitin Maxstr) 500-400 mg capsule Active 1 CAP PO DAILY February 29, 2020 12:00am RZTBWWIBJBW-SCYZPECLQ-RWM C- [place] PO (6 sources) take 1 capsule by mouth once daily NQMMMTXRXHO-ZKENWIHSH-GTA C-MN PO Take 1 capsule by mouth daily. Active loratadine 10 mg oral tablet (20 sources) Star t: 05-22 take 1 tablet by mouth once daily Loratadine (Claritin) 10 mg tablet Active 10 mg PO DAILY June 12, 2022 1:00am Comment on above: Take 10 mg by mouth once daily. oxyCODONE hydrochloride 5 mg oral tablet (4 sources) Opioid Agonist Star t: 12-20 End: 11-07 take 1 tablet by mouth every six hours as needed for pain oxyCODONE (Roxicodone) 5 MG immediate release tablet Indications: Lung nodule , S/P thoracotomy Take 1 tablet (5 mg) by mouth every 6 hours as needed for severe pain (7-10) (acute post surgical pain) for up to 7 days. 28 tablet 01/14/2025 12:31 PM EDT 01/14/2025 01/21/2025 Active Start: 01-11-2025 End: 01-14-2025 take 1 tablet by mouth every four hours as needed for pain oxyCODONE (Roxicodone) immediate release tablet 5 mg perflutren lipid microsphere s 1.3 mL in NaCl (PF) 0.9% 10 mL injection (DEFINITY) (6 sources) Start: 08-23-2022 End: 11-23-2023 perflutren lipid microsphere s 1.3 mL in NaCl (PF) 0.9% 10 mL injection (DEFINITY) Completed/Discontinued Medications Medication Drug Class(es) Dates Sig (Normalized) Sig (Original) acetaminophen 325 mg / HYDROcodone bitartrate 10 mg oral tablet (20 sources) Opioid Agonist Start: 04-25-2020 End: 06-01-2020 Hydrocodone-Acetami nophen 1 EACH tablet Discontinued 1 {tbl} PO EVERY 4 HOURS NEEDED as needed for Pain Score April 25, 2020 12:00am June 01, 2020 9:44am Start: 04-25-2020 End: 06-01-2020 take 1 tablet by mouth every four hours as needed Hydrocodone-Acetaminophen Discontinued 1 TABLET PO EVERY 4 HOURS NEEDED April 25, 2020 12:00am June 01, 2020 9:44am Start: 05-24-2013 End: 02-29-2020 Vicodin 5/500 Discontinued N ovember 2012 9:11pm February 29, 2020 9:18pm Start: 05-24-2013 End: 02-29-2020 Vicodin 5/500 Discontinued N ovember 2012 12:00am February 29, 2020 8:18pm Start: 05-24-2013 End: 02-29-2020 Vicodin 5/500 Discontinued N ovember 2012 1:00am February 29, 2020 9:18pm acetaminophen 325 mg / oxyCODONE hydrochloride 5 mg oral tablet (20 sources) Opioid Agonist Start: 05-24-2013 End: 02-29-2020 Oxycodone-Acetaminophen 1 TABLET tablet Discontinued 1 - 2 {tbl} PO EVERY 4 HOURS NEEDED as needed for Pain May 24, 2013 1:00am February 29, 2020 9:18pm Start: 05-24-2013 End: 02-29-2020 take 1 tablet by mouth every four hours as needed Oxycodone-Acetaminophen Discontinued 1 - 2 TABLET PO EVERY 4 HOURS NEEDED May 24, 2013 1:00am February 29, 2020 9:18pm albuterol 0.833 mg/ml / ipratropium bromide 0.167 mg/ml inhalation solution (6 sources) Anticholinergic, beta2-Adrenergic Agonist Start: 01-12-2025 End: 01-14-2025 3 mL, Nebulization, Every 4 hours PRN, shortness of breath, Starting on Fri01/12/25 at 1045, Recovery & On Unit Start: 01-11-2025 End: 01-12-2025 3 mL, Nebulization, 2 times daily, First dose (after last modification) on Fri01/11/25 at 2000, Recovery & On Unit Start: 01-10-2025 End: 01-11-2025 3 mL, Nebulization, Every 4 hours while awake, First dose on Fri01/10/25 at 1400, Recovery & On Unit ALPRAZolam 0.25 mg disintegrating oral tablet (2 sources) Benzodiazepine Start: 01-10-2025 End: 01-10-2025 take 0.25 mg by mouth once as needed for anxiety 0.25 mg, Oral, Once PRN, anxiety, Starting on Fri01/10/25 at 0615, For 1 dose, Preprocedure, Please do not administer prior to obtaining consent and/or history and physical. atorvastatin 10 mg oral tablet (2 sources) HMG-CoA Reductase Inhibitor Start: 01-10-2025 End: 01-14-2025 10 mg, Oral, Nightly, First dose on Fri01/10/25 at 2100, Recovery & On Unit, Substituted for simvastatin (Zocor). bisacodyl 5 mg delayed release oral tablet (2 sources) Stimulant Laxative Start: 01-10-2025 End: 01-11-2025 take 1 dose by mouth every hour 5 mg, Oral, Daily, First dose on Fri01/10/25 at 1230, Recovery & On Unit, Do not give within 1 hour of antacids, milk, or dairy products. Do not crush, chew, or split. BLOOD PRESSURE MEDICATION (1 source) Start: 04-27-2020 BLOOD PRESSURE MEDICATION One tablet twice daily BLOOD PRESSURE MEDICATION Mitchell Hernandez MD 12 hr buPROPion hydrochloride 150 mg extended release oral tablet (12 sources) Aminoketone Start: 01-11-2025 End: 01-14-2025 take 150 mg by mouth twice daily 150 mg, Oral, 2 times daily, First dose on Fri01/11/25 at 0930, Do not crush, chew, or split. Start: 12-02-2024 take 1 tablet by florin twice daily, then take 1 tablet by mouth every twelve hours Bupropion Hcl (Smoking Deter) 150 mg tablet extended release 12 hr Active 150 mg PO TWICE A DAY 60 December 02, 2024 12:00am Smoking greater than 40 pack years Nicotine dependence, cigarettes, uncomplicated calcium chloride 0.0014 meq/ml / potassium chloride 0.004 meq/ml / sodium chloride 0.103 meq/ml / sodium lactate 0.028 meq/ml injectable solution (2 sources) Start: 01-10-2025 End: 01-10-2025 take 50 mL intravenously every hour 50 mL/hr, IntraVENous, Continuous, Starting on Fri01/10/25 at 0630, Preprocedure, Upon admission to sameday - please start iv if patient does not have iv access. Use 500ml NS for patients on dialysis. celecoxib 400 mg oral capsule (2 sources) Nonsteroidal Anti-inflammatory Drug Start: 01-10-2025 End: 01-10-2025 400 mg, Oral, Once, On Fri01/10/25 at 0630, For 1 dose, Preprocedure, Administer 60 minutes prior to surgery. Start: 01-10-2025 End: 01-10-2025 400 mg, Oral, Once, On Fri at 0630, For 1 dose, Preprocedure, Administer 60 minutes prior to surgery. cholecalciferol 0.125 mg oral tablet (20 sources) Vitamin D Start: 09-07-2021 End: 11-28-2021 take 1 tablet by mouth once daily Cholecalciferol (Vitamin D3) 125 mcg (5,000 unit) tablet Discontinued 250 ug PO DAILY September 07, 2021 1:00am November 28, 2021 8:40am chondroitin sulfates 400 mg / glucosamine hydrochloride 500 mg oral capsule (9 sources) Start: 03-29-2005 take 2 capsules by mouth once daily GLUCOSAMINE CHONDROITIN MAXSTR 500 MG-400 MG ORAL CAP Take 2 capsules by mouth once daily. 0 03/29/2005 Active Start: 03-29-2005 GLUCOSAMINE CH ONDROITIN MAXSTR 500 MG-400 MG ORAL CAP Comment on above: Take 2 capsules by m outh once daily. CP[facility] (9 sources) [facility] Comment on above: daily at bedtime. docusate sodium 50 mg / sennosides, chcf 8.6 mg oral tablet (2 sources) Start: 01-12-20 End: 01-15-20 take 2 tablets by mouth once daily 2 tablet, Oral, Daily, First dose on Fri01/11/25 at 0945 doxycycline hyclate 100 mg oral tablet (16 sources) Tetracycline-class Drug Start: 06-12-20 End: 06-19-20 take 1 tablet by mouth twice daily Doxycycline Hyclate 100 mg tablet Discontinued 100 mg PO TWICE A DAY 14 7 0 June 12, 2022 1:00am June 18, 2022 1:00am June 19, 2022 1:03am ezetimibe 10 mg oral tablet (20 sources) Dietary Cholesterol Absorption Inhibitor Start: 05-24-20 13 End: 02-29-20 take 1 tablet by mouth once daily Ezetimibe 10 MG tablet Discontinued 10 mg PO DAILY May 24, 2013 1:00am February 29, 2020 9:18pm famotidine 20 mg oral tablet (20 sources) Histamine-2 Receptor Antagonist Start: 07-05-20 End: 01-15-20 take 1 tablet by mouth once daily Famotidine 20 mg tablet Discontinued 20 mg PO DAILY December 20, 2020 8:28am November 28, 2021 8:46am Comment on above: Take 20 mg by mouth once daily. flecainide acetate 100 mg oral tablet (20 sources) Antiarrhythmic Start: 05-15-20 End: 10-04-19 23 take 1 tablet by mouth every twelve hours Flecainide 100 mg tablet Discontinued 100 mg PO Q12H May 15, 2022 12:00am October 03, 2022 10:04am Comment on above: Take 1 tablet by florin th every 12 hours. 120 actuat formoterol fumarate 0.0048 mg/actuat / glycopyrrolate 0.009 mg/actuat metered dose inhaler (14 sources) beta2-Adrenergic Agonist Start: 12-09-19 24 End: 03-15-20 Glycopyrrolate-Form oterol (Bevespi Aerosphere) 9-4.8 mcg HFA aerosol inhaler Discontinued 2 NMA INHALATION TWICE A DAY 07 31December 09, 2023 10:52am March 15, 2024 8:14am Start: 08-25-2023 End: 12-09-2023 Glycopyrrolate-Formoterol (B evespi Aerosphere) 9-4.8 mcg HFA aerosol inhaler Discontinued 2 NMA INHALATION every day in the morning and in the evening 07 23August 25, 2023 1:00am December 09, 2023 10:53am Start: 08-25-2023 Glycopyrrolate -Formoterol (Bevespi Aerosphere) 9-4.8 mcg HFA aerosol inhaler Active 2 PUFF INHALATION every day in the morning and in the evening August 25, 2023 1:00am 60 actuat formoterol fumarate 0.005 mg/actuat / mometasone furoate 0.2 mg/actuat metered dose inhaler (2 sources) Corticosteroid, beta2-Adrenergic Agonist Start: 01-10-2025 End: 01-14-2025 take 2 puff(s) by mouth twice daily 2 puff, Inhalation, 2 times daily, First dose on Fri01/10/25 at 1230, Recovery & On Unit, Rinse mouth with water after use to reduce aftertaste and incidence of candidiasis. Do not swallow. furosemide 20 mg oral tablet (16 sources) Loop Diuretic Start: 07-17-2022 End: 12-02-2022 take 1 tablet by mouth once daily Furosemide 20 mg tablet Discontinued 20 mg PO DAILY 3 July 17, 2022 1:00am December 02, 2022 8:09am GLUCOSAMINE-CHONDRO IT-VIT C-MN (1 source) Start: 02-08-2020 GLUCOSAMINE CHONDR 1500 COMPLX CAPS 2 capsules daily GLUCOSAMINE-CHO NDROIT-VIT C-MN [id number] Jennifer Porras LPN 1 ml HYDROmorphone hydrochloride 1 mg/ml cartridge (2 sources) Opioid Agonist Start: 01-10-2025 End: 01-10-2025 0.5 mg, IntraVENous, Every 5 min PRN, severe pain (7-10), Starting on Fri01/10/25 at 1032, For 4 doses, Recovery (only), Phase I and Phase II- Initial therapy for severe pain (7-10). Restricted to a 90 minute time frame starting when the patient can verbally state their pain score. If after 2 doses the pain score does not decrease by more than one point, then call the provider. If oral meds are utilized, do not return to initial therapy medications. 1 ml ketorolac tromethamine 30 mg/ml cartridge (2 sources) Nonsteroidal Anti-inflammatory Drug, Cyclooxygenase Inhibitor Start: 01-10-2025 End: 01-11-2025 take 15 mg intravenously every six hours 15 mg, IntraVENous, Every 6 hours, First dose on Fri01/10/25 at 1230, For 12 doses, Recovery & On Unit 24 hr loratadine 10 mg / pseudoephedrine sulfate 240 mg extended release oral tablet (20 sources) alpha-Adrenergic Agonist Start: 05-03-2020 End: 06-12-2022 take 1 tablet by mouth every twenty-four hours Loratadine-Pseu doephedrine (Claritin-D 24 Hour) 10-240 mg tablet extended release 24 hr Discontinued 1 {tbl} PO DAILY 90 May 16, 2020 10:59am December 20, 2020 8:31am Start: 02-08-2020 End: 06-12-2022 take 1 tablet by mouth once daily, then take 1 tablet by mouth every twenty-four hours Loratadine-Pseudoephedrine (Claritin-D 2 4 Hour) 10-240 mg tablet extended release 24 hr Discontinued 1 TABLET PO DAILY May 16, 2020 10:59am December 20, 2020 8:31am Comment on above: Take 1 tablet by florin once daily. magnesium hydroxide 80 mg/ml oral suspension (2 sources) Start: 01-11-2025 End: 01-14-2025 take 8 [oz_av] by mouth twice daily 30 mL, Oral, 2 times daily PRN, constipation, Starting on Fri01/11/25 at 0932, Follow dose with 8 oz of water. 24 hr metoprolol succinate 25 mg extended release oral tablet (20 sources) beta-Adrenergic Donna Start: 11-05-2022 End: 01-14-2025 take 1 tablet by mouth once daily Metoprolol Succinate 25 mg tablet extended release 24 hr Discontinued 25 mg PO DAILY 90 January 13, 2024 4:10pm December 23, 2024 3:55pm Start: 10-03-2022 End: 12-02-2022 Metoprolol Succinate 25 mg t ablet extended release 24 hr Discontinued 50 mg PO DAILY October 03, 2022 10:03am December 02, 2022 8:09am Start: 10-03-2022 End: 12-02-2022 take 50 mg by mouth once daily Metoprolol Succinate Di scontinued 50 MG PO DAILY October 03, 2022 10:03am December 02, 2022 8:09am Start: 03-17-2020 take 2 tablets by mo [facility] every hour metoprolol succinate ER (TOPROL XL) 25 mg 24 hr tablet Indications: Persistent atrial fibrillation (HCC) Take 2 tablets by mouth once daily. Per Dr. Hylton. 0 03/17/2020 Active Start: 03-07-2020 End: 10-03-2022 take 1 tablet by mouth twice daily Metoprolol Succinate 25 mg tablet extended release 24 hr Discontinued 25 mg PO TWICE A DAY 180 3 February 14, 2022 3:13pm October 03, 2022 10:04am Start: 02-29-2020 End: 03-07-2020 take 1 tablet by mouth once daily Metoprolol Succinate 25 mg tablet extended release 24 hr Discontinued 25 mg PO DAILY February 29, 2020 12:00am March 07, 2020 5:07pm Comment on above: Take 2 tablets by mo [facility] once daily. Per Dr. Hylton. Take 1 tablet by florin once daily. Miscellaneous Medical Supply (COMPRESSION STOCKINGS) [facility] (9 sources) Start: Miscellaneous Medical Supply (COMPRESSION STOCKINGS) [facility] Indications: Unspecified venous (peripheral) insufficiency Use as directed (Pressure 30-40mmHg) to Right Leg Dx 453.9 459.81 4 Each 1 11/05/2010 Active Comment on above: Use as directed (Pre ssure 30-40mmHg) to Right Leg Dx 453.9 459.81 morphine injection 2 mg (2 sources) Start: End: morphine injection 2 mg mupirocin 0.02 mg/mg topical ointment (2 sources) RNA Synthetase Inhibitor Antibacterial Start: End: 1 Application, Nasal, 2 times daily, First dose on Fri01/10/25 at 1230, For 5 days, [facility], Indications: MRSA Nasal Decolonization 1 ml naloxone hydrochloride 0.4 mg/ml injection (2 sources) Opioid Antagonist Start: End: 0.4 mg, IntraVENous, Every 5 min PRN, opioid reversal, respiratory depression, Starting on Fri01/10/25 at 1223, +++ For RR ondansetron ODT (Zofran-ODT) disintegrating tablet 4 mg (2 sources) Start: End: take 1 tablet by mouth every eight hours as needed for nausea and vomiting ondansetron ODT (Zofran-ODT) disintegrating tablet 4 mg polyethylene glycol [id number] mg powder for oral solution (2 sources) Osmotic Laxative Start: 025 End: 17 g, Oral, Daily, First dose on Fri01/11/25 at 0945 simvastatin 20 mg oral tablet (20 sources) HMG-CoA Reductase Inhibitor Start: 020 End: take 1 tablet by mouth at bedtime Simvastatin 20 mg tablet Discontinued 20 mg PO AT BEDTIME 90 3 June 30, 2023 11:05am June 29, 2024 1:33pm Start: 02-08-2020 SIMVASTATIN 20 MG TABS 1 tablet 3 days weekly SIMVASTATIN [id number] Jennifer Porras LPN Comment on above: Take 1 tablet by florin th daily at bedtime. 5 ml sodium chloride 9 mg/ml injection (12 sources) Start: 01-10-2025 End: 01-14-2025 5-40 mL, IntraVENous, Every 12 hours scheduled (2 times per day), First dose on Fri01/10/25 at 2100, [facility] On [facility], or Line Patency: Peripheral IV = 5 mL; Midline or Central Line = 10 mL/lumen. If following IV push medication, administer flush at same rate as the IV push. Flush volume is determined by type of infusion therapy being given. For non-viscous solutions use: Peripheral IV = 5 mL Midline or Central Line = 10 mL/lumen For viscous solutions (i.e. blood components, parenteral nutrition, contrast media, or after obtaining blood sample) use: Peripheral IV = 10 mL Midline or Central Line = 20 mL/lumen Start: 01-10-2025 End: 01-14-2025 Start: 01-10-2025 End: 01-14-2025 Start: 08-23-2022 End: 11-23-2023 sodium chloride 0.9 % (flush ) 10 mL (BD POSIFLUSH) 10 actuat tiotropium 0.0025 mg/actuat inhalation spray (2 sources) Anticholinergic Start: 01-11-2025 End: 01-14-2025 take 2 puff(s) by inhalation once daily 2 puff, Inhalation, Daily, First dose on Fri01/11/25 at 0900, [facility] 7 actuat umeclidinium 0.0625 mg/actuat / vilanterol 0.025 mg/actuat dry powder inhaler (20 sources) Anticholinergic, beta2-Adrenergic Agonist Start: 01-17-2021 End: 08-25-2023 Umeclidinium-Krzysztof nterol (Anoro Ellipta) 62.5-25 mcg/actuation blister with device Discontinued 1 NMA INHALATION daily 3 May 13, 2023 9:07am August 25, 2023 11:03am Lung nodule Solitary pulmonary nodule Start: 01-17-2021 End: 08-25-2023 Umeclidinium-Vilanterol (Ano ro Ellipta) 62.5-25 mcg/actuation blister with device Discontinued 1 INH INHALATION daily May 13, 2023 9:07am August 25, 2023 11:03am Start: 01-04-2021 End: 01-17-2021 Umeclidinium-Vilanterol (Ano ro Ellipta) 62.5-25 mcg/actuation blister with device Discontinued 2 January 04, 2021 7:16am January 17, 2021 1:38pm take 1 puff(s) by inhalation once daily umeclidinium-vilanterol (ANORO ELLIPTA) 62.5-25 mcg/actuation inhaler Inhale 1 Puff as instructed once daily. 0 Active Comment on above: Inhale 1 Puff as ins tructed once daily. warfarin sodium 5 mg oral tablet (20 sources) Vitamin K Antagonist Start: 01-14-2025 End: 01-14-2025 5 mg, Oral, Once Warfarin, On Fri01/14/25 at 1700, For 1 dose Start: 01-14-2025 End: 01-14-2025 5 mg, Oral, Once Warfarin, O n Fri01/14/25 at 1700, For 1 dose Start: 01-13-2025 7.5 mg, Oral, Once Warfarin, On Amna 01/13/25 at 1700, For 1 dose Start: 09-07-2020 End: 04-02-2023 Warfarin 2.5 mg tablet Disco ntinued 2.5 mg PO .FRSASU March 29, 2022 10:06am April 02, 2023 9:43am Please contact the information source for Protocol details. Start: 02-08-2020 WARFARIN SODIU M 2.5 MG TABS 1 tablet 3 days weekly as directed WARFARIN SODIUM [id number] Jennifer Porras ROSELIA Start: 05-24-2013 End: 06-28-2024 take 1 tablet by mouth once daily Warfarin 5 mg tablet Discontinued 5 mg PO .COMPLEX 180 June 22, 2024 9:57am June 28, 2024 5:10pm 5 mg orally daily: please give pt extra tablets as dose changes often, pt is OUT; Please contact the information source for Protocol details. Start: 05-24-2013 End: 09-07-2020 Warfarin 7.5 mg tablet Disco ntinued 2.5 mg PO .COMPLEX 24 September 07, 2020 5:31pm September 07, 2020 5:32pm 2.5 mg PO W/SA or as directed; Please contact the information source for Protocol details. Start: 05-24-2013 End: 09-07-2020 Warfarin Discontinued 2.5 MG PO .COMPLEX September 07, 2020 5:31pm September 07, 2020 5:32pm 2.5 mg PO W/SA or as directed; Comment on above: Take 1 tablet by florin th once daily. Take 1.5 tablets (7.5mg) on Wednesdays and 1 tablet (5mg) al other days as directed. Problems Active Problems Problem Classification Problem Date Documented Da te Episodic/Chronic Cardiac dysrhythmias (20 sources) Permanent atrial fibrillation; Translations: [Permanent atrial fibrillation] Onset: 04-27-2020 Chronic Comment on above: new onset 02/18/2020; DCCV on 06/04/2022; RF ablation 08/05/2022 at [facility]; Chronic obstructive pulmonary disease and bronchiectasis (20 sources) Mild chronic obstructive pulmonary disease; Translations: [Chronic obstructive pulmonary disease, unspecified] Onset: 12-06-2024 Chronic Comment on above: FEV1 88% Coagulation and hemorrhagic disorders (20 sources) Protein C deficiency disease; Translations: [Other primary thrombophilia] Onset: 04-01-2005 Chronic Conduction disorders (20 sources) Right bundle branch block; Translations: [Unspecified right bundle-branch block] 04-25-2020 Chronic Disorders of lipid metabolism (20 sources) 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; Translations: [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, unspecified] Onset: 03-29-2005 Chronic Nutritional deficiencies (20 sources) Vitamin D deficiency; Translations: [Vitamin D deficiency, unspecified] Chronic Osteoarthritis (9 sources) Degenerative joint disease involving multiple joints; Translations: [Polyosteoarthritis, unspecified] Onset: 03-29-2005 03-29-2005 Chronic Other aftercare (20 sources) Long-term current use of anticoagulant; 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] 04-25-2020 Episodic Other aftercare (13 sources) Patient encounter status; Translations: [Encounter for therapeutic drug level monitoring] 05-15-2022 Episodic Other aftercare (9 sources) MCC (current) use of anticoagulants; Translations: [Long-term (current) use of anticoagulants] Onset: 01-18-2025 06-12-2022 Episodic Other aftercare (5 sources) Long-term current use of drug therapy; Translations: [Encounter for therapeutic drug level monitoring] 05-15-2022 Episodic Other aftercare (1 source) Anticoagulant effect; Translations: [MCC (current) use of anticoagulants] 12-23-2024 Episodic Other lower respiratory disease (20 sources) Dyspnea; Translations: [Shortness of breath] 01-15-2021 Episodic Other lower respiratory disease (20 sources) Nodule of lung; Translations: [Solitary pulmonary nodule] Onset: 01-10-2025 05-15-2022 Episodic Comment on above: Resolved on CT 2 1.6X1.5X1.3X2.3cm Other lower respiratory disease (13 sources) Solitary pulmonary nodule; Translations: [Solitary pulmonary nodule] Onset: 01-10-2025 Episodic Other lower respiratory disease (2 sources) Solitary nodule of lung; Translations: [Solitary pulmonary nodule] 01-14-2025 Episodic Other lower respiratory disease (1 source) Other nonspecific abnormal finding of lung field; Translations: [Other nonspecific abnormal finding of lung field] Onset: 12-14-2024 Episodic Other nutritional; endocrine; and metabolic disorders (10 sources) Obese class I; Translations: [Obesity, unspecified] Onset: 04-27-2020 04-27-2020 Chronic Other nutritional; endocrine; and metabolic disorders (1 source) Obesity, unspecified; Translations: [Obesity, Class I, BMI 30-34.9] Onset: 04-27-2020 Chronic Other skin disorders (13 sources) Skin lesion; Translations: [Disorder of the skin and subcutaneous tissue, unspecified] 12-02-2022 Episodic Other skin disorders (4 sources) Disorder of the skin and subcutaneous tissue, unspecified; Translations: [Unspecified disorder of skin and subcutaneous tissue] 12-02-2022 Episodic Other upper respiratory disease (9 sources) Allergic rhinitis; Translations: [Allergic rhinitis, unspecified] Onset: 10-17-2014 10-17-2014 Chronic Other upper respiratory infections (17 sources) Acute upper respiratory infection; Translations: [Acute upper respiratory infection, unspecified] 06-12-2022 Episodic Phlebitis; thrombophlebitis and thromboembolism (20 sources) Thromboembolism of vein; Translations: [Chronic embolism and thrombosis of unspecified deep veins of right lower extremity] Onset: 06-01-2019 Chronic Comment on above: Residual codes; unclassified (15 sources) Obstructive sleep apnea syndrome; Translations: [Obstructive sleep apnea (adult) (pediatric)] Onset: 12-29-2024 03-15-2024 Chronic Comment on above: AHI 14.9 treated wit h CPAP 12 cm of water with residual AHI of 0.3 Residual codes; unclassified (20 sources) History of operative procedure on shoulder; Translations: [Other specified postprocedural states] 05-15-2022 Episodic Comment on above: 10/2021 [facility] Residual codes; unclassified (16 sources) History of cardioversion; Translations: [Personal history of other medical treatment] 06-11-2022 Episodic Residual codes; unclassified (13 sources) H/O: atrial fibrillation; Translations: [Other specified postprocedural states] 12-02-2022 Episodic Comment on above: RF ablation of all 4 pulmonary veins with entrance and exit blocks confirmed on 08/05/2022 at [facility] with Dr. Aylin turner; Residual codes; unclassified (5 sources) Other specified postprocedural states; Translations: [Other postprocedural status] Onset: 08-06-2022 06-09-2023 Episodic Residual codes; unclassified (2 sources) History of thoracic surgery; Translations: [Other specified postprocedural states] 01-14-2025 Episodic Screening and history of mental health and substance abuse codes (1 source) Ex-smoker; Translations: [Personal history of nicotine dependence] 12-23-2024 Episodic Substance-related disorders (20 sources) Nicotine dependence; Translations: [Nicotine dependence, unspecified, uncomplicated] Onset: 10-14-2006 Chronic Unclassified (1 source) Other persistent atrial fibrillation; Translations: [Persistent atrial fibrillation (HCC)] Onset: 08-05-2022 Unclassified (8 sources) Nodule of upper lobe of right lung; Translations: [R91.1 - Solitary pulmonary nodule] Unclassified (2 sources) New Patient; Translations: [New Patient] Onset: 12-23-2024 Past or Other Problems Problem Classification Problem Date Documented Date Episodic/Chronic Cardiac dysrhythmias (12 sources) Sinus bradycardia; Translations: [Bradycardia, unspecified] Onset: 05-19-2017 05-19-2017 Episodic Other connective tissue disease (1 source) Subacromial impingement; Translations: [Impingement syndrome of right shoulder] Onset: 02-10-2020 02-10-2020 Episodic Other diseases of veins and lymphatics (9 sources) Peripheral venous insufficiency; Translations: [Venous insufficiency (chronic) (peripheral)] Onset: 04-01-2005 02-18-2020 Episodic Other lower respiratory disease (1 source) Dyspnea, unspecified; Translations: [Dyspnea, unspecified type] Onset: 11-05-2022 Episodic Residual codes; unclassified (8 sources) Other specified personal risk factors, not elsewhere classified; Translations: [Other specified personal history presenting hazards to health] Onset: 08-05-2022 08-05-2022 Episodic Residual codes; unclassified (7 sources) H/O cardiac surgery; Translations: [Other specified postprocedural states] Onset: 08-06-2022 08-06-2022 Episodic Sprains and strains (13 sources) Traumatic rupture of rotator cuff; Translations: [Strain of muscle(s) and tendon(s) of the rotator cuff of left shoulder, initial encounter] Onset: 01-06-2020 02-10-2020 Episodic Unclassified (1 source) Problem Results Test Name Value Interpretation Reference Range Facility Office Visiton 01-27-2025 Follow-up visit [id number] Rich James 1955 M Date Provider Department Center 01/27/2025 ELI REYNOLDS [facility] CT None Family History Problem Relation Age of Onset Diabetes Father Family Status - Relation Status Age at Father Level of Service:02422 [place] POSTOP FOLLOW UP VISIT RELATED TO ORIGINAL PX Reason for Visit and Comments: Post-op [483] Normal [facility] Progress Noteon 01-27-2025 Progress Note [facility]: CT SURGEONS [facility] [address] [facility] [address] [facility] [address] Dept: [phone] Dept Loc: [phone] Visit type: Established patient - in person Surgery/Procedure: s/p Robotic right thoracoscopy, right upper lobe wedge resection, mediastinal lymph node dissection with Dr. Luna on 01/10/25 Reason for Visit: post op follow up Assessment/Plan Diagnosis: Right upper lobe nodule s/p wedge resection COPD PAF DVT Former tobacco use Plan: -Path discussed with patient; agreeable to plan -Reviewed current meds -Surgical Incisions: healing appropriately, well approximated, no s/s of infection Suture removed from piror CT site -Physical therapy as outlined in discharge instructions Ok to drive ROM exercises discussed -Acute Post-Operative Pain Tx plan: OTC as needed; using Tylenol PM at night time -No weight Restriction -Follow up with PCP and Pulm -Plan follow up as needed. Patient to call with any questions or concerns. They verbalized understanding Subjective HPI: 69 yo male with PMH of A Fib, GERD, DVT, tobacco abuse. Pt completed regular CT lung screening on 11/17/24 which showed a new irregular right apical nodule measuring approximately 18 mm. A PET scan was performed, which demonstrated hypermetabolic right apical nodule and no evidence of metastatic disease. He was seen by Dr. Luna and consented to surgical resection. Postoperative course uncomplicated. Once air leak noted in CT resolved; CT was removed. He was discharged on POD#4 home. 01/27/25: Patient presents today for post op follow up. -Surgical path finalized - discussed with surgeon and then patient and -Medications reviewed: no changes made -Pain is controlled. He is currently taking: OTC as needed -Incisions: healing appropriately, well approximated, no s/s of infection, suture removed from prior CT site. -There is no weight restriction from CTS standpoint. ROM exercises discussed. -Other complaints: No other needs at this time. Plan follow up as needed. Yearly CT per pulm if needed. Objective Vitals: 01/27/25 1009 BP: (!) 134/90 Pulse: (!) 48 Wt Readings from Last 3 Encounters: 01/27/25 183 lb (83 kg) 01/11/25 196 lb 3.4 oz (89 kg) 12/29/24 185 lb (83.9 kg) Physical Exam Cardiovascular: Rate and Rhythm: Regular rhythm. Bradycardia present. Heart sounds: Normal heart sounds. Pulmonary: Effort: Pulmonary effort is normal. Breath sounds: Normal breath sounds. Skin: General: Skin is warm and dry. Comments: Surgical Incisions: well approximate; clean dry with no drainage noted. Surrounding skin no redness, warmth, or signs of infection noted. Neurological: Mental Status: He is alert and oriented to person, place, and time. Labs/Imaging/Testing: reviewed EMR, see A&P for pertinent diagnostic results related to office visit Final Diagnosis A. LUNG, RIGHT UPPER LOBE, WEDGE RESECTION: - AREA OF ORGANIZING PNEUMONIA - NEGATIVE FOR MALIGNANCY AND GRANULOMAS B. LYMPH NODE, LEVEL 9R: - NEGATIVE C. LYMPH NODE, LEVEL 7: - NEGATIVE D. LYMPH NODE, LEVEL 4R: - NEGATIVE This case was reviewed by Dr. Delaney who concurs with the above interpretation. at 1131 EDT Intraoperative Consultation FROZEN SECTION DIAGNOSIS: FS1: Malignancy not identified. Vianca Porras M.D./Clint Mckeon M.D./George Delaney M.D. Intraoperative consultation performed at [facility], [address] [place] [address]; CLIA: [id number]; Joint Commission: [id number]; CAP: [id number] Clinical Information Solitary pulmonary nodule - R91.1 [ICD-10-CM] Gross Description A. Received fresh for frozen section diagnosis labeled right upper lobe wedge is a 9.8 x 4 x 1.5 cm purple-red lung wedge. The pleura is inked black. The staple line is removed and the underlying parenchyma is inked blue. There is a white-red nodule that is 1.7 x 1 x 1 cm. A charter representative portion is submitted for frozen section diagnosis. The remainder of the specimen is sectioned revealing areas with dilated airspaces and focal fibrosis. An additional well-defined mass is not seen. The majority of the wedge with the remainder of the mass is submitted in 10 cassettes with residual frozen section tissue being submitted in cassette A1. B. Received in formalin labeled level 9R lymph node is a 0.7 x 0.4 x 0.3 cm red-panda soft tissue fragment that is submitted in one cassette. C. Received in formalin labeled level 7 lymph node is a 2.1 x 1.8 x 0.6 cm red-brown aggregate of soft tissue consistent with fragmented lymph node. The larger pieces are sectioned. The specimen is submitted entirely in two cassettes. D. Received in formalin labeled level 4R lymph node is a 1.8 x 1.6 x 0.3 cm aggregate of yellow-pink fibrofatty-appearing soft tissue. The specimen is submitted in one cassette. Disclaime (more content not included)... Normal [facility] normalized rat io (INR) measurement by fingerstickOrdered By: Kassy Stack on 01-17-2025 INR Coag (BldC) [Relative time] 2.1 [facility] Comment on above: Critical Value > 4.0 Protime w/INR Fingerstickon 01-17-2025 INR Coag (PPP) [Relative time] 2.1 {INR} Normal [facility] Comment on above: Result Comment: Crit ical Value > 4.0 Performed By: #### L [id number] #### [facility] [address] [place], [place], [id number] Protime [place] 22.7 SEC High 11.7-14.9 [facility] Comment on above: Performed By: #### L [id number] #### [facility] [address] [place], [address] Whole blood prothrombin time Ordered By: Kassy Stack on 01-17-2025 PT Coag (Bld) [Time] 22.7 s High 11.7-14.9 [facility] BASIC METABOLIC PANELon 12-20 Anion gap [Moles/Vol] 9 mmol/L Normal 3-13 [facility] Comment on above: Performed By: #### L [id number] ####Skip Tender: APOLONIA PADILLA ([id number])[facility] ([facility])[address] [place] [address] Calcium [Mass/Vol] 8.5 mg/dL Low 8.8-10.0 [facility] Comment on above: Performed By: #### L AB15 ####Skip Tender: APOLONIA PADILLA ([id number])[facility] ([facility])[address] [place] [address] [place] Chloride [Moles/Vol] 107 mmol/L Normal 98-107 [facility] Comment on above: Performed By: #### L AB15 ####Skip Tender: APOLONIA PADILLA ([id number])[facility] ([facility] [place] [address] CO2 [Moles/Vol] 23 mmol/L Normal 23-31 [facility] Comment on above: Performed By: #### L AB15 ####Skip Tender: APOLONIA PADILLA ([id number])[facility] ([facility] [place] [address] Creatinine [Mass/Vol] 0.89 mg/dL Normal 0.72-1.25 [facility] Comment on above: Performed By: #### L AB15 ####Skip Tender: APOLONIA PADILLA ([id number])[facility] ([facility] [place] [address] GLOMERULAR FILTRATION RATE ML/MIN/1.73 SQ M.PREDICTED >90.0 Normal >60.0 [facility] Comment on above: Result Comment: Calc ulation based on the Chronic Kidney Disease Epidemiology Collaboration (CKD-EPI) equation refit without adjustment for race Performed By: #### L AB15 ####Skip Tender: APOLONIA PADILLA ([id number])[facility] ([facility])[address] [place] [address] Glucose [Mass/Vol] 105 mg/dL Normal 82-115 [facility] Comment on above: Performed By: #### L AB15 ####Skip Tender: APOLONIA PADILLA ([id number])[facility] ([facility])[address] [place] [address] Potassium [Moles/Vol] 4.2 mmol/L Normal 3.5-5.1 [facility] Comment on above: Result Comment: [facility] potassium values may be up to 0.5 mmol/L lower than serum values. Performed By: #### L AB15 ####Skip Tender: APOLONIA PADILLA ([id number])[facility] ([facility])[address] [place] [address] Sodium [Moles/Vol] 139 mmol/L Normal 136-145 [facility] Comment on above: Performed By: #### L AB15 ####Skip Tender: APOLONIA PADILLA ([id number])[facility] ([facility])[address] [place] [address] Urea nitrogen [Mass/Vol] 15 mg/dL Normal 9-23 [facility] Comment on above: Performed By: #### L AB15 ####Skip Tender: APOLONIA PADILLA ([id number])[facility] ([facility] [place] [address] Basic metabolic 1998 panelon 01-14-2025 Anion gap [Moles/Vol] 9 mmol/L 3 - 13 mmol/L [facility] Calcium [Mass/Vol] 8.5 mg/dL Low 8.8 - 10. 0 mg/dL [facility] Chloride [Moles/Vol] 107 mmol/L 98 - 10 7 mmol/L [facility] CO2 [Moles/Vol] 23 mmol/L 23 - 31 mmol/L [facility] Creatinine [Mass/Vol] 0.89 mg/dL 0.72 - 1.25 mg/dL [facility] GFR/1.73 sq M.predicted (S/P/Bld) [Vol rate/Area] - PINF [facility] Comment on above: Calculation based on the Chronic Kidney Disease Epidemiology Collaboration (CKD-EPI) equation refit without adjustment for race Glucose [Mass/Vol] 105 mg/dL 82 - 115 mg/dL [facility] Interpretation and review of laboratory results Abnormal [facility] Potassium [Moles/Vol] 4.2 mmol/L 3.5 - 5.1 mmol/L [facility] Comment on above: Plasma potassium vinayak ues may be up to 0.5 mmol/L lower than serum values. Sodium [Moles/Vol] 139 mmol/L 136 - 145 mmol/L [facility] Urea nitrogen [Mass/Vol] 15 mg/dL 9 - 23 mg/dL [facility] CBC (HEMOGRAM)on 01-14-2025 Erythrocyte distribution width (RBC) [Ratio] 13.8 % Normal 11.5-15.0 [facility] Comment on above: Performed By: #### L [id number] ####Skip Tender: APOLONIA PADILLA ([id number])[address] Hematocrit (Bld) [Volume fraction] 41.4 % Normal 40.0-52.0 [facility] Comment on above: Performed By: #### L [id number] ####Skip Tender: APOLONIA PADILLA ([id number])[address] Hemoglobin (Bld) [Mass/Vol] 13.8 g/dL Normal 13.0-18.0 [facility] Comment on above: Performed By: #### L [id number] ####Skip Tender: APOLONIA PADILLA ([id number])[address] MCH (RBC) [Entitic mass] 30.9 pg Normal 26.0-34.0 [facility] Comment on above: Performed By: #### L [id number] ####Skip Tender: APOLONIA PADILLA ([id number])[address] MCHC 33.3 % Normal 30.5-36.0 [facility] Comment on above: Performed By: #### L [id number] ####Skip Tender: APOLONIA PADILLA ([id number])[address] MCV (RBC) [Entitic vol] 92.6 fL Normal 77.0-99.0 [facility] Comment on above: Performed By: #### L [id number] ####Skip Tender: APOLONIA PADILLA ([id number])[facility] ([facility])[address] [place] [address] Platelet mean volume (Bld) [Entitic vol] 10.1 fL Normal 9.0-12.7 [facility] Comment on above: Performed By: #### L [id number] ####Skip Tender: APOLONIA PADILLA ([id number])[facility] ([facility])[address] [place] [address] Platelets (Bld) [#/Vol] 166 10*3/uL Normal 140-440 [facility] Comment on above: Performed By: #### L [id number] ####Skip Tender: APOLONIA PADILLA ([id number])[facility])[address] [place] [address] RBC (Bld) [#/Vol] 4.47 10*6/uL Normal 4.40-5.90 [facility] Comment on above: Performed By: #### L [id number] ####Skip Tender: APOLONIA PADILLA ([id number])[facility] ([facility])[address] [place] [address] WBC (Bld) [#/Vol] 6.6 10*3/uL Normal 3.6-10.7 [facility] Comment on above: Performed By: #### L [id number] ####Skip Tender: APOLONIA PADILLA ([id number])[facility] ([facility])[address] [place] [address] CBC panel Auto (Bld)on 01-14 Erythrocyte distribution width (RBC) [Ratio] 13.8 % 11.5 - 15.0 % [facility] Hematocrit (Bld) [Volume fraction] 41.4 % 40.0 - 52.0 % [facility] Hemoglobin (Bld) [Mass/Vol] 13.8 g/dL 13.0 - 18.0 g/dL [facility] Interpretation and review of laboratory results Normal [facility] MCH (RBC) [Entitic mass] 30.9 pg 26.0 - 34.0 pg [facility] MCHC (RBC) [Mass/Vol] 33.3 % 30.5 - 36.0 % [facility] MCV (RBC) [Entitic vol] 92.6 fL 77.0 - 99.0 fL [facility] Platelet mean volume (Bld) [Entitic vol] 10.1 fL 9.0 - 12.7 fL [facility] Platelets (Bld) [#/Vol] 166 10*3/uL 140 - 440 10*3/uL [facility] RBC (Bld) [#/Vol] 4.47 10*6/uL 4.40 - 5.9 0 10*6/uL [facility] WBC (Bld) [#/Vol] 6.6 10*3/uL 3.6 - 10.7 10*3/uL [facility] Laboratory - Coagulationon 0 01-14-2025 PT Coag (Bld) [Time] 16.7 s High 9.0 - 12.0 s [facility] Nursing Noteon 01-14-2025 Nursing Note Discharged ordered reviewed and signed no questions at this time. Normal [facility] PROTHROMBIN TIMEon INR Coag (PPP) [Relative time] 1.6 {INR} High 0.9-1.1 [facility] Comment on above: Result Comment: Hernán mmended Anticoagulant Therapy: SEE BELOW ----- INR of 2.0 - 3.0 : - Prophylaxis of Venous Thrombosis (high-risk surgery) - Treatment of Venous Thrombosis - Treatment of Pulmonary Embolism (Includes tissue heart valves, Acute Myocardial Infarction to prevent systemic embolism, Valvular Heart Disease, and Atrial Fibrillation) ----- INR of 2.5 - 3.5 : - Mechanical Prosthetic Valves (high risk) - If oral anticoagulant therapy is used to prevent Myocardial Infarction Performed By: #### L [id number] ####Skip Tender: APOLONIA PADILLA ([id number])[facility] ([facility])[address] [place] [address] PT Coag (PPP) [Time] 16.7 s High 9.0-12.0 [facility] Comment on above: Performed By: #### L AB320 ####Skip Tender: APOLONIA PADILLA ([id number])[facility] ([facility])[address] [place] [address] PT Coag (Bld) [Time]on 01-14 INR Coag (PPP) [Relative time] 1.6 {INR} High 0.9 - 1.1 [facility] Comment on above: Recommended Anticoag ulant Therapy: SEE BELOW ----- INR of 2.0 - 3.0 : - Prophylaxis of Venous Thrombosis (high-risk surgery) - Treatment of Venous Thrombosis - Treatment of Pulmonary Embolism (Includes tissue heart valves, Acute Myocardial Infarction to prevent systemic embolism, Valvular Heart Disease, and Atrial Fibrillation) ----- INR of 2.5 - 3.5 : - Mechanical Prosthetic Valves (high risk) - If oral anticoagulant therapy is used to prevent Myocardial Infarction Interpretation and review of laboratory results Abnormal [facility] Progress Noteon 01-14-2025 Progress Note [facility] Anticoagulatio n Management Service (BRITTANY) Inpatient Warfarin Consult HPI: Rich James is a 69 y.o. male admitted on 01/10/2025 for Solitary pulmonary nodule [R91.1] Lung nodule [R91.1]. Medical History[1] Patient is on warfarin for DVT, Afib, Protein C Deficiency and has a goal INR 2.0 - 3.0. Warfarin is currently managed by [facility]. Pt's home dose of warfarin is 2.5 mg on and 5 mg on all other days. Pt's last INR in the clinic was 1 on 01/10. S/sx of bleeding= none reported Interacting medications= none Labs: Recent Labs 01/12/25 0157 01/13/25 0151 01/14/25 0131 HGB 13.7 14.3 13.8 HCT 41.0 43.4 41.4 PLT 164 165 166 Recent Labs 01/14/25 0131 INR 1.6* Date INR Dose 01/14 1.6 5 mg 01/13 1.1 7.5 mg 01/12 1.0 5mg 01/11 --- 5mg 01/10 1.0 HOLD Assessment/Plan: 1. INR is subtherapeutic due to multiple held doses for surgery. Will give 5 mg today (home dose) following considerable INR increase from yesterday (01/13) 2. Can consider Lovenox or heparin bridge (has history of Protein C deficiency) 3. Monitor for s/s of bleeding and drug interactions. Will adjust dose accordingly. 4. Warfarin is managed by PCP outpatient. BRITTANY will manage inpatient and sign off at discharge. Fawad Burton PharmD candidate 2025, staffed with Renata Hassan PharmD, [facility] Consult Service is available daily [phone] via [employer] Secure Chat. [1] Past Medical History: Diagnosis Date COPD (chronic obstructive pulmonary disease) (HCC) GERD (gastroesophageal reflux disease) Hiatal hernia 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 Obesity FIFI (obstructive sleep apnea) Paroxysmal atrial fibrillation (HCC) Protein deficiency anemia Right bundle branch block Normal [facility] XR CHEST 1 VIEWon 01-14-2025 XR CHEST 1 VIEW Patient Name: RICH JAMES : 1955 [facility]#: [id number] Exam Date/Time: 01/14/2025 08:50 Procedure: XR CHEST 1 VIEW Ordering Provider: MANUEL ANDREW Reason For Exam: follow up prior apical pneumo EXAM: XR Chest, 1 View CLINICAL INDICATION: follow up prior apical pneumo TECHNIQUE: Frontal view of the chest. COMPARISON: 01/13/2025. FINDINGS: LUNGS AND PLEURAL SPACES: Small right apical pneumothorax, unchanged. Scattered right lung calcified granulomata. No acute consolidation. HEART: Unremarkable. No cardiomegaly. MEDIASTINUM: Unremarkable. Normal mediastinal contour. BONES/JOINTS: Unremarkable. No acute fracture. SOFT TISSUES: Right neck and chest wall subcutaneous emphysema, unchanged. TUBES, LINES AND DEVICES: Right thoracostomy tube was removed since prior exam. IMPRESSION: 1. Small right apical pneumothorax, unchanged. 2. Interval right thoracostomy tube was removed since prior exam. Report Dictated on Electronically Signed By: Josafat Washington DO Electronically Signed Date/Time: 01/14/2025 8:54 AM EDT Normal [facility] XR Chest Single viewon 01-14 1. Small right apica l pneumothorax, unchanged. 2. Interval right thoracostomy tube was removed since prior exam. Report Dictated on Electronically Signed By: Josafat Washington DO Electronically Signed Date/Time: 01/14/2025 8:54 AM EDT [facility] 1955 [id number] Exam Date/Time: 01/14/2025 08:50 Procedure: XR CHEST 1 VIEW Ordering Provider: MANUEL ANDREW Reason For Exam: follow up prior apical pneumo EXAM: XR Chest, 1 View CLINICAL INDICATION: follow up prior apical pneumo TECHNIQUE: Frontal view of the chest. COMPARISON: 01/13/2025. FINDINGS: LUNGS AND PLEURAL SPACES: Small right apical pneumothorax, unchanged. Scattered right lung calcified granulomata. No acute consolidation. HEART: Unremarkable. No cardiomegaly. MEDIASTINUM: Unremarkable. Normal mediastinal contour. BONES/JOINTS: Unremarkable. No acute fracture. SOFT TISSUES: Right neck and chest wall subcutaneous emphysema, unchanged. TUBES, LINES AND DEVICES: Right thoracostomy tube was removed since prior exam. [facility] Josafat Washington DO - 01/14/2025 [facility] Name: [facility]ICH [facility]AMES : 1955 [id number] Exam Date/Time: 01/14/2025 08:50 Procedure: XR CHEST 1 VIEW Ordering Provider: MANUEL ANDREW Reason For Exam: follow up prior apical pneumo EXAM: XR Chest, 1 View CLINICAL INDICATION: follow up prior apical pneumo TECHNIQUE: Frontal view of the chest. COMPARISON: 01/13/2025. FINDINGS: LUNGS AND PLEURAL SPACES: Small right apical pneumothorax, unchanged. Scattered right lung calcified granulomata. No acute consolidation. HEART: Unremarkable. No cardiomegaly. MEDIASTINUM: Unremarkable. Normal mediastinal contour. BONES/JOINTS: Unremarkable. No acute fracture. SOFT TISSUES: Right neck and chest wall subcutaneous emphysema, unchanged. TUBES, LINES AND DEVICES: Right thoracostomy tube was removed since prior exam. IMPRESSION: 1. Small right apical pneumothorax, unchanged. 2. Interval right thoracostomy tube was removed since prior exam. Report Dictated on Electronically Signed By: Josafat Washington DO Electronically Signed Date/Time: 01/14/2025 8:54 AM EDT [facility] Radiology Study observation (narrative) [facility] XR Chest Single viewOrdered By: Josafat Washington on 01-14-2025 [facility] Work Phone: 30on 01-13-2025 30 Problem: Pain - Adul t Goal: Verbalizes/displays adequate comfort level or baseline comfort level Outcome: Progressing Problem: Safety - Adult Goal: Free from fall injury Outcome: Progressing Problem: Discharge Planning Goal: Discharge to home or other facility with appropriate resources Outcome: Progressing Normal [facility] 30 Problem: Pain - Adul t Goal: Verbalizes/displays adequate comfort level or baseline comfort level Outcome: Progressing Problem: Safety - Adult Goal: Free from fall injury Outcome: Progressing Problem: Discharge Planning Goal: Discharge to home or other facility with appropriate resources Outcome: Progressing Problem: Chronic Conditions and Co-morbidities Goal: Patient's chronic conditions and co-morbidity symptoms are monitored and maintained or improved Outcome: Progressing Normal [facility] BASIC METABOLIC PANELon 12-20 Anion gap [Moles/Vol] 6 mmol/L Normal 3-13 [facility] Comment on above: Performed By: #### L AB15 ####Skip Tender: APOLONIA PADILLA ([id number])[facility])[address] [place] [address] Calcium [Mass/Vol] 8.5 mg/dL Low 8.8-10.0 [facility] Comment on above: Performed By: #### L AB15 ####Skip Tender: APOLONIA PADILLA ([id number])[facility] ([facility])[address] [place] [address] [place] Chloride [Moles/Vol] 105 mmol/L Normal 98-107 [facility] Comment on above: Performed By: #### L AB15 ####Skip Tender: APOLONIA PADILLA ([id number])[facility] ([facility])[address] [place] [address] [place] CO2 [Moles/Vol] 25 mmol/L Normal 23-31 [facility] Comment on above: Performed By: #### L AB15 ####Skip Tender: APOLONIA PADILLA ([id number])[facility] ([facility])[address] [place] [address] Creatinine [Mass/Vol] 1.00 mg/dL Normal 0.72-1.25 [facility] Comment on above: Performed By: #### L AB15 ####Skip Tender: APOLONIA PADILLA ([id number])[facility])[address] [place] [address] GLOMERULAR FILTRATION RATE ML/MIN/1.73 SQ M.PREDICTED 82.0 mL/min/1.73m*2 Normal >60.0 [facility] Comment on above: Result Comment: Calc ulation based on the Chronic Kidney Disease Epidemiology Collaboration (CKD-EPI) equation refit without adjustment for race Performed By: #### L AB15 ####Skip Tender: APOLONIA PADILLA ([id number])[address] Glucose [Mass/Vol] 101 mg/dL Normal 82-115 [facility] Comment on above: Performed By: #### L AB15 ####Skip Tender: APOLONIA [id number])[address] Potassium [Moles/Vol] 4.6 mmol/L Normal 3.5-5.1 [facility] Comment on above: Result Comment: [facility] potassium values may be up to 0.5 mmol/L lower than serum values. Performed By: #### L AB15 ####Skip Tender: APOLONIA PADILLA ([id number])[address] Sodium [Moles/Vol] 136 mmol/L Normal 136-145 [facility] Comment on above: Performed By: #### L AB15 ####Skip Tender: APOLONIA PADILLA ([id number])[address] Urea nitrogen [Mass/Vol] 21 mg/dL Normal 9-23 [facility] Comment on above: Performed By: #### L AB15 ####Skip Tender: APOLONIA [id number])[address] Basic metabolic 1998 panelon 01-13-2025 Anion gap [Moles/Vol] 6 mmol/L 3 - 13 mmol/L [facility] Calcium [Mass/Vol] 8.5 mg/dL Low 8.8 - 10. 0 mg/dL [facility] Chloride [Moles/Vol] 105 mmol/L 98 - 10 7 mmol/L [facility] CO2 [Moles/Vol] 25 mmol/L 23 - 31 mmol/L [facility] Creatinine [Mass/Vol] 1 mg/dL 0.72 - 1.25 mg/dL [facility] GFR/1.73 sq M.predicted (S/P/Bld) [Vol rate/Area] 82 mL/min - PINF [facility] Comment on above: Calculation based on the Chronic Kidney Disease Epidemiology Collaboration (CKD-EPI) equation refit without adjustment for race Glucose [Mass/Vol] 101 mg/dL 82 - 115 mg/dL [facility] Interpretation and review of laboratory results Abnormal [facility] Potassium [Moles/Vol] 4.6 mmol/L 3.5 - 5.1 mmol/L [facility] Comment on above: Plasma potassium vinayak ues may be up to 0.5 mmol/L lower than serum values. Sodium [Moles/Vol] 136 mmol/L 136 - 145 mmol/L [facility] Urea nitrogen [Mass/Vol] 21 mg/dL 9 - 23 mg/dL [facility] CBC (HEMOGRAM)on 01-13-2025 Erythrocyte distribution width (RBC) [Ratio] 14.2 % Normal 11.5-15.0 [facility] Comment on above: Performed By: #### L [id number] ####Skip Tender: APOLONIA PADILLA ([id number])[address] Hematocrit (Bld) [Volume fraction] 43.4 % Normal 40.0-52.0 [facility] Comment on above: Performed By: #### L AB294 ####Skip Tender: APOLONIA PADILLA ([id number])[address] Hemoglobin (Bld) [Mass/Vol] 14.3 g/dL Normal 13.0-18.0 [facility] Comment on above: Performed By: #### L AB294 ####Skip Tender: APOLONIA PADILLA ([id number])[facility])[address] [place] [address] MCH (RBC) [Entitic mass] 31.0 pg Normal 26.0-34.0 [facility] Comment on above: Performed By: #### L [id number] ####Skip Tender: APOLONIA PADILLA ([id number])[facility])[address] [place] [address] MCHC 32.9 % Normal 30.5-36.0 [facility] Comment on above: Performed By: #### L AB294 ####Skip Tender: APOLONIA PADILLA ([id number])[facility])[address] [place] [address] MCV (RBC) [Entitic vol] 94.1 fL Normal 77.0-99.0 [facility] Comment on above: Performed By: #### L [id number] ####Skip Tender: APOLONIA PADILLA ([id number])[facility])[address] [place] [address] Platelet mean volume (Bld) [Entitic vol] 9.7 fL Normal 9.0-12.7 [facility] Comment on above: Performed By: #### L [id number] ####Skip Tender: APOLONIA PADILLA ([id number])[facility])[address] [place] [address] Platelets (Bld) [#/Vol] 165 10*3/uL Normal 140-440 [facility] Comment on above: Performed By: #### L [id number] ####Skip Tender: APOLONIA PADILLA ([id number])[facility])[address] [place] [address] RBC (Bld) [#/Vol] 4.61 10*6/uL Normal 4.40-5.90 [facility] Comment on above: Performed By: #### L [id number] ####Skip Tender: APOLONIA PADILLA ([id number])[facility] ([facility])[address] [place] [address] WBC (Bld) [#/Vol] 7.7 10*3/uL Normal 3.6-10.7 [facility] Comment on above: Performed By: #### L [id number] ####Skip Tender: APOLONIA PADILLA ([id number])[facility] ([facility])[address] [place] [address] CBC panel Auto (Bld)on 01-13 Erythrocyte distribution width (RBC) [Ratio] 14.2 % 11.5 - 15.0 % [facility] Hematocrit (Bld) [Volume fraction] 43.4 % 40.0 - 52.0 % [facility] Hemoglobin (Bld) [Mass/Vol] 14.3 g/dL 13.0 - 18.0 g/dL [facility] Interpretation and review of laboratory results Normal [facility] MCH (RBC) [Entitic mass] 31 pg 26.0 - 34.0 pg [facility] MCHC (RBC) [Mass/Vol] 32.9 % 30.5 - 36.0 % [facility] MCV (RBC) [Entitic vol] 94.1 fL 77.0 - 99.0 fL [facility] Platelet mean volume (Bld) [Entitic vol] 9.7 fL 9.0 - 12.7 fL [facility] Platelets (Bld) [#/Vol] 165 10*3/uL 140 - 440 10*3/uL [facility] RBC (Bld) [#/Vol] 4.61 10*6/uL 4.40 - 5.9 0 10*6/uL [facility] WBC (Bld) [#/Vol] 7.7 10*3/uL 3.6 - 10.7 10*3/uL [facility] Laboratory - Coagulationon 0 01-13-2025 PT Coag (Bld) [Time] 11.8 s 9.0 - 12.0 s [facility] PROTHROMBIN TIMEon INR Coag (PPP) [Relative time] 1.1 {INR} Normal 0.9-1.1 [facility] Comment on above: Result Comment: Hernán mmended Anticoagulant Therapy: SEE BELOW ----- INR of 2.0 - 3.0 : - Prophylaxis of Venous Thrombosis (high-risk surgery) - Treatment of Venous Thrombosis - Treatment of Pulmonary Embolism (Includes tissue heart valves, Acute Myocardial Infarction to prevent systemic embolism, Valvular Heart Disease, and Atrial Fibrillation) ----- INR of 2.5 - 3.5 : - Mechanical Prosthetic Valves (high risk) - If oral anticoagulant therapy is used to prevent Myocardial Infarction Performed By: #### L [id number] #### Skip Tender: APOLONIA PADILLA ([id number]) [facility] ([facility]) [address] [place] [address] PT Coag (PPP) [Time] 11.8 s Normal 9.0-12.0 [facility] Comment on above: Performed By: #### Jasmin AB320 #### Skip Tender: APOLONIA PADILLA ([id number]) [facility] ([facility]) [address] [place] [address] PT Coag (Bld) [Time]on 01-13 INR Coag (PPP) [Relative time] 1.1 {INR} 0.9 - 1.1 [facility] Comment on above: Recommended Anticoag ulant Therapy: SEE BELOW ----- INR of 2.0 - 3.0 : - Prophylaxis of Venous Thrombosis (high-risk surgery) - Treatment of Venous Thrombosis - Treatment of Pulmonary Embolism (Includes tissue heart valves, Acute Myocardial Infarction to prevent systemic embolism, Valvular Heart Disease, and Atrial Fibrillation) ----- INR of 2.5 - 3.5 : - Mechanical Prosthetic Valves (high risk) - If oral anticoagulant therapy is used to prevent Myocardial Infarction Interpretation and review of laboratory results Normal [facility] Progress Noteon 01-13-2025 Progress Note Reviewed with thuan diez d/c CT Chest tube assessed: no air leak, subcutaneous air noted. Chest tube removed without difficulty and dressing applied. Patient tolerated well. Patient and nurse educated on possible complications to observe for. Will continue to monitor. Follow up CXR in am unless new symptoms of respiratory distress Normal [facility] Progress Note -- Attestation signed by Eva Estevez PT at 01/13/2025 3:54 PM Goals met, OK to discharge from PT standpoint. Recommend use of mobility aides for encouraging walking throughout LOS. PHYSICAL THERAPY [facility] Treatment Note Name/MRN: Rich James ([id number]) Date of : 1955 Age: 69 y.o. Room[facility]Bed: [facility] Discharge Recommendation: Home with assist PRN Equipment Needed: No Assessment Pt was able to complete all Posture and conditioning exercises while seated in recliner. Pt was reminded to work in a comfortable ROM to avoid added stress on chest tube insertion site. Pt was able to ambulate independently to and from room toilet. Pt completed one full lap around the hospital floor with no rest breaks. Pt stated that he has been walking with family members when they visit. Discharge Rec Home with assist PRN. Contacted PT for discharge from acute care PT services. Subjective Pt was in recliner and awake talking with present family members. Pt reported feeling okay today. Pt and stated that his pain meds were starting wear off. Pt noted that he was feeling pain into R shoulder. Pain: 0-10 pain scale: 5/10 Location: Chest tube site and R shoulder Medical Precautions: No active isolations Proper PPE donned/doffed in accordance with facility standards. Fall Risk: Mariano Fall Risk Score: 35 (Medium Risk) Precautions/Restrictio ns: chest tube Overall Cognitive Status: WNL Overall Orientation Status: Oriented x4 Family/Caregiver Present: spouse and child(roberto) (patient's and daughter) Objective Transfers/Mobility Sit to stand: Independent Stand to sit: Independent Toilet: Independent Pt required no assistance with any transfers. Device(s) used: None Ambulation Ambulation 1 Assistive device(s) used: None Assist level: Modified Independent Distance (ft): >600 feet Quality of gait: Steady, slow pace, No LOB. No rest breaks needed. Exercises Exercises Comments: provide, review P&C; performed #1-9. limited ROM due to chest tube site discomfort (history bilat shoulder repair) Pt has handout to be able to complete on own. Plan Continue acute PT per plan of care. Safety/Education Safety Safety Devices in place: call light within reach, left in chair, and no alarms engaged upon entry Restraints: No Education HEP: Posture and Conditioning Outcome Measures AM-PAC AM-PAC Inpatient Mobility Raw Score : 24 AM-PAC Inpatient Mobility Raw Score (No Stairs) : 20 JH-HLM JH-HLM Score: Walked 250 ft or more (i.e. several laps on unit) Goals Patient Stated Goal: Home Encounter Problems Encounter Problems (Active) Cardiac Patient will be independent with P&C exercises. (Completed) Start: 01/11/25 Expected End: 01/25/25 Resolved: 01/13/25 Mobility Patient will ambulate 600 feet with independence and no assistive device in order to improve safety and independence with mobility. (Completed) Start: 01/11/25 Expected End: 01/25/25 Resolved: 01/13/25 Patient will ascend and descend 3 stairs with no assistive device and independence in order to safely negotiate home. (Adequate for Discharge) Start: 01/11/25 Expected End: 01/25/25 Pain - Adult Transfers Patient will perform bed mobility with independence in order to improve independence and prepare for out of bed mobility. (Adequate for Discharge) Start: 01/11/25 Expected End: 01/25/25 Patient will complete functional transfer with no assistive device with independence in order to prepare for ambulation. (Completed) Start: 01/11/25 Expected End: 01/25/25 Resolved: 01/13/25 Therapy Time Individual Co-treatment Time In 1350 Time Out 1416 Minutes 26 Timed Code Treatment Minutes: 26 Minutes (GT/Ther Ex) Maile Blount, SPTA Ursula Thomas, TREASURY ANALYST Normal [facility] Progress Note [facility] Anticoagulatio n Management Service (BRITTANY) Inpatient Warfarin Consult HPI: Rich James is a 69 y.o. male admitted on 01/10/2025 for Solitary pulmonary nodule [R91.1] Lung nodule [R91.1]. Medical History[1] Patient is on warfarin for DVT, Afib, Protein C Deficiency and has a goal INR 2.0 - 3.0. Warfarin is currently managed by [facility]. Pt's home dose of warfarin is 2.5 mg on Th and 5 mg on all other days. Pt's last INR in the clinic was 1 on 01/10. S/sx of bleeding= none reported Interacting medications= Ketoralac Labs: Recent Labs 01/11/25 0210 01/12/25 0157 01/13/25 0151 HGB 13.2 13.7 14.3 HCT 39.2* 41.0 43.4 PLT 147 164 165 Recent Labs 01/13/25 0151 INR 1.1 Date INR Dose 01/13 1.1 7.5 mg 01/12 1.0 5mg 01/11 --- 5mg 01/10 1.0 HOLD Assessment/Plan: 1. INR is subtherapeutic due to multiple held doses for surgery. Will give 7.5 mg x 1 today following multiple home doses with minimal INR increase. 2. Can consider Lovenox or heparin bridge (has history of Protein C deficiency) 3. Monitor for s/s of bleeding and drug interactions. Will adjust dose accordingly. 4. Warfarin is managed by PCP outpatient. BRITTANY will manage inpatient and sign off at discharge. Fawad Burton PharmD candidate 2025, staffed with Renata Hassan PharmD, [facility] Consult Service is available daily [phone] via [employer]. [1] Past Medical History: Diagnosis Date COPD (chronic obstructive pulmonary disease) (HCC) GERD (gastroesophageal reflux disease) Hiatal hernia 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 Obesity FIFI (obstructive sleep apnea) Paroxysmal atrial fibrillation (HCC) Protein deficiency anemia Right bundle branch block Normal [facility] Progress Note -- Attestation signed by Sarah Luna DO at 01/13/2025 2:42 PM (Updated) CARDIOTHORACIC SURGERY DOS: 01/13/25 POD # 3 VATS RUL wedge; MLND I personally performed a [id number] diagnostic evaluation on this patient I agree with the findings and plan of care as documented by the CARMELITA or resident. There has been no change in the physical exam or findings unless otherwise noted below. Doing quite well. No air leak seen Will clamp tube now and check CXR in a few hours. Hopeful for tube removal today, home tomorrow. A total of 20 minutes were spent between the [id number] encounter, physical exam, reviewing the medical history, coordinating care, counseling/educating the patient, ordering medications/test/proce dures, interpreting results and documenting in the patient's record on the day of the encounter. The patient was seen and examined independently and relevant data reviewed by myself. Savanah Luna DO [facility] Cardiothoracic Surgery Cardiothoracic Surgery Progress Note PATIENT NAME: Rich James DATE: 01/13/25 HPI: 69 yo male with PMH of A Fib, GERD, DVT, tobacco abuse. Pt completed regular CT lung screening on 11/17/24 which showed a new irregular right apical nodule measuring approximately 18 mm. A PET scan was performed, which demonstrated hypermetabolic right apical nodule and no evidence of metastatic disease. He was seen by Dr. Luna and consented to surgical resection. Surgery/Procedure: 01/10/25: s/p Robotic right thoracoscopy, right upper lobe wedge resection, mediastinal lymph node dissection with Dr. Luna Interval History: 01/13/25: VSS up in chair. Patient eager to get home. CT with +intermittent air leak with coughing. Discussed with Surgeon -->plan clamp trial. Pain is better controlled now. He stated he got behind it yesterday and was hurting pretty bad. Review of Systems Constitutional: Negative for diaphoresis, fatigue and fever. Respiratory: Negative for cough, shortness of breath and wheezing. Cardiovascular: Negative for chest pain, palpitations and leg swelling. Gastrointestinal: Negative for abdominal distention, constipation and diarrhea. Skin: Negative for color change, pallor and rash. Objective: CT: 20cc/24hrs:20 Vitals: BP: 134/79, MAP (mmHg): 97, Heart Rate: 62 Resp: 16 Temp: 36 ?C (96.8 ?F), Temp Source: Temporal BMI (Calculated): 28.96 BMP: Recent Labs 01/11/25 0209 01/12/25 0157 01/13/25 0151 NA 136 139 136 K 4.3 4.0 4.6 CL 107 107 105 CO2 22* 24 25 BUN 16 22 21 CREATININE 0.89 0.94 1.00 CALCIUM 8.1* 8.3* 8.5* CBC: Recent Labs 01/11/25 0210 01/12/25 0157 01/13/25 0151 WBC 9.6 8.8 7.7 HGB 13.2 13.7 14.3 HCT 39.2* 41.0 43.4 PLT 147 164 165 MCV 91.8 93.0 94.1 RDW 13.5 14.0 14.2 Physical Exam Cardiovascular: Rate and Rhythm: Normal rate and regular rhythm. Heart sounds: Normal heart sounds. No murmur heard. No friction rub. Pulmonary: Effort: Pulmonary effort is normal. Skin: General: Skin is warm and dry. Capillary Refill: Capillary refill takes less than 2 seconds. Findings: Bruising and ecchymosis present. Comments: Surgical Incisions: well approximate; clean dry with no drainage noted. Surrounding skin no redness, warmth, or signs of infection noted. Neurological: Mental Status: He is alert. Psychiatric: Behavior: Behavior is cooperative. CT to waterseal - + air leak with coughing Assessment: Right upper lobe nodule s/p wedge resection COPD PAF DVT Former tobacco use Plan: Patient Status: Telemetry Continue medications as ordered Brittany for coumadin management CT: clamp trial; follow up CXR in 2 hours PT recommending home with assist Disposition: TBD - home when albe - if able to d/c tube today; possibly tomorrow Patient discussed and plan of day developed with Cardiothoracic Surgery Surgeon [facility] XR CHEST 1 VIEWon 01-13-2025 XR CHEST 1 VIEW Patient Name: RICH JAMES : 1955 Exam Date/Time: 01/13/2025 12:41 Procedure: XR CHEST 1 VIEW Ordering Provider: MANUEL ANDREW Reason For Exam: follow up CT clamp trial CHEST - PORTABLE: CLINICAL INDICATION: follow up CT clamp trial TECHNIQUE: Portable AP COMPARISON: Radiographs earlier same day at 7:39 AM. IMPRESSION: FINDINGS/IMPRESSION: Limitations: No significant limitations. Lines, tubes, and devices: Right apical chest tube unchanged in position. Cardiomediastinal silhouette: Heart size is within normal limits. Lungs/Pleura: Small right apical pneumothorax fairly similar to prior study. Mild elevation of the right hemidiaphragm. No sizable pleural effusions. Osseous structures: Unchanged in appearance. Soft tissues: Subcutaneous emphysema right lateral chest wall and base of neck. Report Dictated on Electronically Signed By: Bernabe Serna MD Electronically Signed Date/Time: 01/13/2025 2:[address] [facility] XR CHEST 1 VIEW Patient Name: RICH JAMES : 1955 Exam Date/Time: 01/13/2025 07:38 Procedure: XR CHEST 1 VIEW Ordering Provider: LUNA RICHARD Reason For Exam: Chest tube placement CLINICAL INFORMATION: Right-sided chest tube. Follow-up study. Portable view of the chest at 0740 hours is provided and compared to a previous study dated January 12, 2025. FINDINGS: The right-sided chest tube remains in place. There is a small right apical pneumothorax. The left lung remains clear. The heart size is normal. IMPRESSION: 1. Right-sided chest tube with small apical pneumothorax. Report Dictated on Electronically Signed By: Amilcar Saha MD Electronically Signed Date/Time: 01/13/2025 8:18 AM EDT [facility] XR Chest Single viewon 01-13 FINDINGS/IMPRESSION: Limitations: No significant limitations. Lines, tubes, and devices: Right apical chest tube unchanged in position. Cardiomediastinal silhouette: Heart size is within normal limits. Lungs/Pleura: Small right apical pneumothorax fairly similar to prior study. Mild elevation of the right hemidiaphragm. No sizable pleural effusions. Osseous structures: Unchanged in appearance. Soft tissues: Subcutaneous emphysema right lateral chest wall and base of neck. Report Dictated on Electronically Signed By: Bernabe Serna MD Electronically Signed Date/Time: 01/13/2025 2:21 PM EDT [facility] Patient Name: RICH JAMES : 1955 Exam Date/Time: 01/13/2025 12:41 Procedure: XR CHEST 1 VIEW Ordering Provider: MANUEL ANDREW Reason For Exam: follow up CT clamp trial CHEST - PORTABLE: CLINICAL INDICATION: follow up CT clamp trial TECHNIQUE: Portable AP COMPARISON: Radiographs earlier same day at 7:39 AM. [facility] Cheyenne Serna MD - 01/13/2025 Patient Name: RICH JAMES : 1955 Exam Date/Time: 01/13/2025 12:41 Procedure: XR CHEST 1 VIEW Ordering Provider: MANUEL ANDREW Reason For Exam: follow up CT clamp trial CHEST - PORTABLE: CLINICAL INDICATION: follow up CT clamp trial TECHNIQUE: Portable AP COMPARISON: Radiographs earlier same day at 7:39 AM. IMPRESSION: FINDINGS/IMPRESSION: Limitations: No significant limitations. Lines, tubes, and devices: Right apical chest tube unchanged in position. Cardiomediastinal silhouette: Heart size is within normal limits. Lungs/Pleura: Small right apical pneumothorax fairly similar to prior study. Mild elevation of the right hemidiaphragm. No sizable pleural effusions. Osseous structures: Unchanged in appearance. Soft tissues: Subcutaneous emphysema right lateral chest wall and base of neck. Report Dictated on Electronically Signed By: Bernabe Serna MD Electronically Signed Date/Time: 01/13/2025 2:21 PM EDT [facility] Radiology Study observation (narrative) [facility] 1. Right-sided chest tube with small apical pneumothorax. Report Dictated on Electronically Signed By: Amilcar Saha MD Electronically Signed Date/Time: 01/13/2025 8:18 AM EDT [facility] Patient Name: RICH JAMES : 1955 Exam Date/Time: 01/13/2025 07:38 Procedure: XR CHEST 1 VIEW Ordering Provider: LUNA RICHARD Reason For Exam: Chest tube placement CLINICAL INFORMATION: Right-sided chest tube. Follow-up study. Portable view of the chest at 0740 hours is provided and compared to a previous study dated January 12, 2025. FINDINGS: The right-sided chest tube remains in place. There is a small right apical pneumothorax. The left lung remains clear. The heart size is normal. [facility] Amilcar Saha MD - 01/13/2025 Patient Name: RICH JAMES : 1955 Exam Date/Time: 01/13/2025 07:38 Procedure: XR CHEST 1 VIEW Ordering Provider: LUNA RICHARD Reason For Exam: Chest tube placement CLINICAL INFORMATION: Right-sided chest tube. Follow-up study. Portable view of the chest at 0740 hours is provided and compared to a previous study dated January 12, 2025. FINDINGS: The right-sided chest tube remains in place. There is a small right apical pneumothorax. The left lung remains clear. The heart size is normal. IMPRESSION: 1. Right-sided chest tube with small apical pneumothorax. Report Dictated on Electronically Signed By: Amilcar Saha MD Electronically Signed Date/Time: 01/13/2025 8:18 AM EDT [facility] Radiology Study observation (narrative) [facility] XR Chest Single viewOrdered By: Amilcar Saha on 01-13-2025 [facility] [employer] Work Phone: 30on 01-12-2025 30 Problem: Pain - Adul t Goal: Verbalizes/displays adequate comfort level or baseline comfort level Outcome: Progressing Problem: Safety - Adult Goal: Free from fall injury Outcome: Progressing Problem: Discharge Planning Goal: Discharge to home or other facility with appropriate resources Outcome: Progressing Normal [facility] 30 Problem: Pain - Adul t Goal: Verbalizes/displays adequate comfort level or baseline comfort level Outcome: Progressing Problem: Safety - Adult Goal: Free from fall injury Outcome: Progressing Problem: Discharge Planning Goal: Discharge to home or other facility with appropriate resources Outcome: Progressing Problem: Chronic Conditions and Co-morbidities Goal: Patient's chronic conditions and co-morbidity symptoms are monitored and maintained or improved Outcome: Progressing Normal [facility] 30 Problem: Pain - Adul t Goal: Verbalizes/displays adequate comfort level or baseline comfort level Outcome: Progressing Flowsheets (Taken 01/11/2025 0132) Verbalizes/displays adequate comfort level or baseline comfort level: Encourage patient to monitor pain and request assistance Assess pain using appropriate pain scale Administer analgesics based on type and severity of pain and evaluate response Implement non-pharmacological measures as appropriate and evaluate response Problem: Safety - Adult Goal: Free from fall injury Outcome: Progressing Flowsheets (Taken 01/12/2025 0521) Free from fall injury: Instruct family/caregiver on patient safety Normal [facility] BASIC METABOLIC PANELon 12-20 Anion gap [Moles/Vol] 8 mmol/L Normal 3-13 [facility] Comment on above: Performed By: #### L AB15 ####Skip Tender: APOLONIA PADILLA ([id number])[facility] [employer] Calcium [Mass/Vol] 8.3 mg/dL Low 8.8-10.0 [facility] Comment on above: Performed By: #### L AB15 ####Skip Tender: APOLONIA PADILLA ([id number])[facility] ([facility])[address] [place] [address] Chloride [Moles/Vol] 107 mmol/L Normal 98-107 [facility] Comment on above: Performed By: #### L AB15 ####Skip Tender: APOLONIA PADILLA ([id number])[facility] ([facility])[address] [place] [address] CO2 [Moles/Vol] 24 mmol/L Normal 23-31 [facility] Comment on above: Performed By: #### L AB15 ####Skip Tender: APOLONIA PADILLA ([id number])[facility] ([facility])[address] [place] [address] Creatinine [Mass/Vol] 0.94 mg/dL Normal 0.72-1.25 [facility] Comment on above: Performed By: #### L AB15 ####Skip Tender: APOLONIA PADILLA ([id number])[facility] ([facility])[address] [place] [address] GLOMERULAR FILTRATION RATE ML/MIN/1.73 SQ M.PREDICTED 88.3 mL/min/1.73m*2 Normal >60.0 [facility] Comment on above: Result Comment: Calc ulation based on the Chronic Kidney Disease Epidemiology Collaboration (CKD-EPI) equation refit without adjustment for race Performed By: #### L AB15 ####Skip Tender: APOLONIA PADILLA ([id number])[facility] ([facility])[address] [place] [address] Glucose [Mass/Vol] 93 mg/dL Normal 82-115 [facility] Comment on above: Performed By: #### L AB15 ####Skip Tender: APOLONIA PADILLA ([id number])[facility])[address] [place] [address] Potassium [Moles/Vol] 4.0 mmol/L Normal 3.5-5.1 [facility] Comment on above: Result Comment: [facility] potassium values may be up to 0.5 mmol/L lower than serum values. Performed By: #### L AB15 ####Skip Tender: APOLONIA PADILLA ([id number])[facility])[address] [place] [address] Sodium [Moles/Vol] 139 mmol/L Normal 136-145 [facility] Comment on above: Performed By: #### L AB15 ####Skip Tender: APOLONIA PADILLA ([id number])[facility] ([facility])[address] [place] [address] Urea nitrogen [Mass/Vol] 22 mg/dL Normal 9-23 [facility] Comment on above: Performed By: #### L AB15 ####Skip Tender: APOLONIA PADILLA ([id number])[facility] ([facility])[address] [place] [address] Basic metabolic 1998 panelon 01-12-2025 Anion gap [Moles/Vol] 8 mmol/L 3 - 13 mmol/L [facility] Calcium [Mass/Vol] 8.3 mg/dL Low 8.8 - 10. 0 mg/dL [facility] Chloride [Moles/Vol] 107 mmol/L 98 - 10 7 mmol/L [facility] CO2 [Moles/Vol] 24 mmol/L 23 - 31 mmol/L [facility] Creatinine [Mass/Vol] 0.94 mg/dL 0.72 - 1.25 mg/dL [facility] GFR/1.73 sq M.predicted (S/P/Bld) [Vol rate/Area] 88.3 mL/min - PINF [facility] Comment on above: Calculation based on the Chronic Kidney Disease Epidemiology Collaboration (CKD-EPI) equation refit without adjustment for race Glucose [Mass/Vol] 93 mg/dL 82 - 115 mg/dL [facility] Interpretation and review of laboratory results Abnormal [facility] Potassium [Moles/Vol] 4 mmol/L 3.5 - 5.1 mmol/L [facility] Comment on above: Plasma potassium vinayak ues may be up to 0.5 mmol/L lower than serum values. Sodium [Moles/Vol] 139 mmol/L 136 - 145 mmol/L [facility] Urea nitrogen [Mass/Vol] 22 mg/dL 9 - 23 mg/dL [facility] CBC (HEMOGRAM)on 01-12-2025 Erythrocyte distribution width (RBC) [Ratio] 14.0 % Normal 11.5-15.0 [facility] Comment on above: Performed By: #### L [id number] ####Skip Tender: APOLONIA PADILLA ([id number])[address] Hematocrit (Bld) [Volume fraction] 41.0 % Normal 40.0-52.0 [facility] Comment on above: Performed By: #### L [id number] ####Skip Tender: APOLONIA PADILLA ([id number])[facility])[address] [place] [address] Hemoglobin (Bld) [Mass/Vol] 13.7 g/dL Normal 13.0-18.0 [facility] Comment on above: Performed By: #### L [id number] ####Skip Tender: APOLONIA PADILLA ([id number])[address] MCH (RBC) [Entitic mass] 31.1 pg Normal 26.0-34.0 [facility] Comment on above: Performed By: #### L [id number] ####Skip Tender: APOLONIA PADILLA ([id number])[address] MCHC 33.4 % Normal 30.5-36.0 [facility] Comment on above: Performed By: #### L [id number] ####Skip Tender: APOLONIA PADILLA ([id number])[address] MCV (RBC) [Entitic vol] 93.0 fL Normal 77.0-99.0 [facility] Comment on above: Performed By: #### L [id number] ####Skip Tender: APOLONIA PADILLA ([id number])[address] Platelet mean volume (Bld) [Entitic vol] 10.7 fL Normal 9.0-12.7 [facility] Comment on above: Performed By: #### L [id number] ####Skip Tender: APOLONIA PADILLA ([id number])[facility] ([facility])[address] [place] [address] Platelets (Bld) [#/Vol] 164 10*3/uL Normal 140-440 [facility] Comment on above: Performed By: #### L [id number] ####Skip Tender: APOLONIA PADILLA ([id number])[facility])[address] [place] [address] RBC (Bld) [#/Vol] 4.41 10*6/uL Normal 4.40-5.90 [facility] Comment on above: Performed By: #### L [id number] ####Skip Tender: APOLONIA PADILLA ([id number])[facility])[address] [place] [address] WBC (Bld) [#/Vol] 8.8 10*3/uL Normal 3.6-10.7 [facility] Comment on above: Performed By: #### L [id number] ####Skip Tender: APOLONIA PADILLA ([id number])[facility] ([facility])[address] [place] [address] CBC panel Auto (Bld)on 01-12 Erythrocyte distribution width (RBC) [Ratio] 14 % 11.5 - 15.0 % [facility] Hematocrit (Bld) [Volume fraction] 41 % 40.0 - 52.0 % [facility] Hemoglobin (Bld) [Mass/Vol] 13.7 g/dL 13.0 - 18.0 g/dL [facility] Interpretation and review of laboratory results Normal [facility] MCH (RBC) [Entitic mass] 31.1 pg 26.0 - 34.0 pg [facility] MCHC (RBC) [Mass/Vol] 33.4 % 30.5 - 36.0 % [facility] MCV (RBC) [Entitic vol] 93 fL 77.0 - 99.0 fL [facility] Platelet mean volume (Bld) [Entitic vol] 10.7 fL 9.0 - 12.7 fL [facility] Platelets (Bld) [#/Vol] 164 10*3/uL 140 - 440 10*3/uL [facility] RBC (Bld) [#/Vol] 4.41 10*6/uL 4.40 - 5.9 0 10*6/uL [facility] WBC (Bld) [#/Vol] 8.8 10*3/uL 3.6 - 10.7 10*3/uL [facility] Laboratory - Coagulationon 0 01-12-2025 PT Coag (Bld) [Time] 10.5 s 9.0 - 12.0 s [facility] PROTHROMBIN TIMEon INR Coag (PPP) [Relative time] 1.0 {INR} Normal 0.9-1.1 [facility] Comment on above: Result Comment: Hernán mmended Anticoagulant Therapy: SEE BELOW ----- INR of 2.0 - 3.0 : - Prophylaxis of Venous Thrombosis (high-risk surgery) - Treatment of Venous Thrombosis - Treatment of Pulmonary Embolism (Includes tissue heart valves, Acute Myocardial Infarction to prevent systemic embolism, Valvular Heart Disease, and Atrial Fibrillation) ----- INR of 2.5 - 3.5 : - Mechanical Prosthetic Valves (high risk) - If oral anticoagulant therapy is used to prevent Myocardial Infarction Performed By: #### Jasmin [id number] ####Skip Tender: APOLONIA PADILLA ([id number])[address] PT Coag (PPP) [Time] 10.5 s Normal 9.0-12.0 [facility] Comment on above: Performed By: #### Jasmin [id number] ####Skip Tender: APOLONIA PADILLA ([id number])[address] PT Coag (Bld) [Time]on 01-12 INR Coag (PPP) [Relative time] 1 {INR} 0.9 - 1.1 [facility] Comment on above: Recommended Anticoag ulant Therapy: SEE BELOW ----- INR of 2.0 - 3.0 : - Prophylaxis of Venous Thrombosis (high-risk surgery) - Treatment of Venous Thrombosis - Treatment of Pulmonary Embolism (Includes tissue heart valves, Acute Myocardial Infarction to prevent systemic embolism, Valvular Heart Disease, and Atrial Fibrillation) ----- INR of 2.5 - 3.5 : - Mechanical Prosthetic Valves (high risk) - If oral anticoagulant therapy is used to prevent Myocardial Infarction Interpretation and review of laboratory results Normal [facility] Progress Noteon 01-12-2025 Progress Note Patient recently brandan t smoking. Accepting of handout with contact information for help and support if needed. Normal [facility] Progress Note Nutrition rescreen completed. Chart reviewed. Patient to be monitored and followed by the diet alignment technician. DEBBIE Gonzalez Normal [facility] Progress Note PHYSICAL THERAPY [facility] Treatment Note Name/MRN: Rich James ([id number]) Date of : 1955 Age: 69 y.o. Room[facility]Bed: [facility] Discharge Recommendation: Home with assist PRN Equipment Needed: No Assessment Steady gait. Good endurance. Vitals stable. Encouraged increased gait. Rec discharge PT services Subjective Seated bedside chair. Hopeful to leave, still with chest tube Pain: chest tube site Medical Precautions: No active isolations Proper PPE donned/doffed in accordance with facility standards. Fall Risk: Mariano Fall Risk Score: 35 (Medium Risk) Precautions/Restrictio ns: chest tube Overall Cognitive Status: WFL Overall Orientation Status: Oriented x4 Family/Caregiver Present: none Objective Bed Mobility Supine to sit: Modified Independent Sit to supine: Modified Independent Logroll, exit left (simulated home) Patient states he may sleep in recliner Transfers/Mobility Sit to stand: Independent Stand to sit: Independent Ambulation Ambulation 1 Assistive device(s) used: None Assist level: Modified Independent Distance (ft): ~550' Quality of gait: steady, slow pace. Stand rest X2 Stairs Stairs 1 Assistive device(s) used: None Assist level: Modified Independent # of steps: 7 Rails: left Additional factors: reciprocal going up, reciprocal going down Exercises Exercises Comments: provide, review P&C; performed #1-3. limited ROM due to chest tube site discomfort (history bilat shoulder repair) Other exercises Other exercises?: (I.S. 3000ml+, cough splinted without production) Plan Continue acute PT per plan of care. Safety/Education Safety Safety Devices in place: call light within reach, left in chair, and no alarms engaged upon entry Restraints: No Education Therex, I.S. , bed mobility Outcome Measures AM-PAC AM-PAC Inpatient Mobility Raw Score : 24 AM-PAC Inpatient Mobility Raw Score (No Stairs) : 20 JH-HLM JH-HLM Score: Walked 250 ft or more (i.e. several laps on unit) Goals Patient Stated Goal: home Encounter Problems Encounter Problems (Active) Cardiac Patient will be independent with P&C exercises. (Progressing) Start: 01/11/25 Expected End: 01/25/25 Mobility Patient will ambulate 600 feet with independence and no assistive device in order to improve safety and independence with mobility. (Progressing) Start: 01/11/25 Expected End: 01/25/25 Patient will ascend and descend 3 stairs with no assistive device and independence in order to safely negotiate home. (Adequate for Discharge) Start: 01/11/25 Expected End: 01/25/25 Pain - Adult Transfers Patient will perform bed mobility with independence in order to improve independence and prepare for out of bed mobility. (Adequate for Discharge) Start: 01/11/25 Expected End: 01/25/25 Patient will complete functional transfer with no assistive device with independence in order to prepare for ambulation. (Adequate for Discharge) Start: 01/11/25 Expected End: 01/25/25 Therapy Time Individual Co-treatment Time In 0900 Time Out 0923 Minutes 23 Timed Code Treatment Minutes: (gt-fa) Sofi Valdivia PTA [facility] Progress Note OCCUPATIONAL THERAPY [facility] Name/MRN: Rich James ([id number]) Date: 01/12/2025 OT orders received and chart reviewed. Attempting OT eval, pt working with PT. Will continue to follow as schedule permits. Tawana Flores, OTR/L Normal [facility] Progress Note [facility] Anticoagulatio n Management Service (BRITTANY) Inpatient Warfarin Consult HPI: Rich James is a 69 y.o. male admitted on 01/10/2025 for Solitary pulmonary nodule [R91.1] Lung nodule [R91.1]. Medical History[1] Patient is on warfarin for DVT, Afib, Protein C Deficiency and has a goal INR 2.0 - 3.0. Warfarin is currently managed by [facility]. Pt's home dose of warfarin is 2.5 mg on Th and 5 mg on all other days. Pt's last INR in the clinic was 1 on 01/10. S/sx of bleeding= none reported Interacting medications= Ketoralac Labs: Recent Labs 01/11/25 0210 01/12/25 0157 HGB 13.2 13.7 HCT 39.2* 41.0 PLT 147 164 Recent Labs 01/12/25 0157 INR 1.0 Date INR Dose 01/12 1.0 5mg 01/11 --- 5mg 01/10 1.0 HOLD Assessment/Plan: 1. INR is subtherapeutic due to multiple held doses for surgery. Will give home dose of warfarin 5mg today. 2. Can consider Lovenox or heparin bridge (has history of Protein C deficiency) 3. Monitor for s/s of bleeding and drug interactions. Will adjust dose accordingly. 3. Warfarin is managed by PCP outpatient. BRITTANY will manage inpatient and sign off at discharge. Renata Hassan RP, PharmD [facility]ANY Consult Service is available daily [phone] via [employer]. [1] Past Medical History: Diagnosis Date COPD (chronic obstructive pulmonary disease) (HCC) GERD (gastroesophageal reflux disease) Hiatal hernia 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 Obesity FIFI (obstructive sleep apnea) Paroxysmal atrial fibrillation (HCC) Protein deficiency anemia Right bundle branch block Normal [facility] XR CHEST 1 VIEWon 01-12-2025 XR CHEST 1 VIEW [facility] 1955 [id number] Exam Date/Time: 01/12/2025 06:17 Procedure: XR CHEST 1 VIEW Ordering Provider: LUNA RICHARD Reason For Exam: Chest tube placement CHEST - PORTABLE: CLINICAL INDICATION: Chest tube placement. TECHNIQUE: Portable AP COMPARISON: One day ago. IMPRESSION: FINDINGS/IMPRESSION: Limitations: Patient positioning/rotation. Lines, tubes, and devices: Right apical chest tube unchanged. Cardiomediastinal silhouette: Unchanged in appearance. Lungs/Pleura: No discrete pneumothorax identified. Slightly low lung volumes with mild elevation of the right hemidiaphragm with mild bibasilar airspace disease likely reflecting atelectasis. Questional trace pleural effusions right side greater than left. Postsurgical changes right lung apex. Previously seen foci of right diaphragmatic air no longer identified. Osseous structures: Unchanged in appearance. Soft tissues: Subcutaneous emphysema along the right lateral chest wall and base of neck. Report Dictated on Electronically Signed By: Bernabe Serna MD Electronically Signed Date/Time: 01/12/2025 7:19 AM EDT [facility] XR Chest Single viewon 01-12 FINDINGS/IMPRESSION: Limitations: Patient positioning/rotation. Lines, tubes, and devices: Right apical chest tube unchanged. Cardiomediastinal silhouette: Unchanged in appearance. Lungs/Pleura: No discrete pneumothorax identified. Slightly low lung volumes with mild elevation of the right hemidiaphragm with mild bibasilar airspace disease likely reflecting atelectasis. Questional trace pleural effusions right side greater than left. Postsurgical changes right lung apex. Previously seen foci of right diaphragmatic air no longer identified. Osseous structures: Unchanged in appearance. Soft tissues: Subcutaneous emphysema along the right lateral chest wall and base of neck. Report Dictated on Electronically Signed By: Bernabe Serna MD Electronically Signed Date/Time: 01/12/2025 7:19 AM EDT [facility] Patient Name: RICH JAMES : 1955 Exam Date/Time: 01/12/2025 06:17 Procedure: XR CHEST 1 VIEW Ordering Provider: LUNA RICHARD Reason For Exam: Chest tube placement CHEST - PORTABLE: CLINICAL INDICATION: Chest tube placement. TECHNIQUE: Portable AP COMPARISON: One day ago. [facility] Cheyenne Serna MD - 01/12/2025 Patient Name: RICH JAMES : 1955 Exam Date/Time: 01/12/2025 06:17 Procedure: XR CHEST 1 VIEW Ordering Provider: LUNA RICHARD Reason For Exam: Chest tube placement CHEST - PORTABLE: CLINICAL INDICATION: Chest tube placement. TECHNIQUE: Portable AP COMPARISON: One day ago. IMPRESSION: FINDINGS/IMPRESSION: Limitations: Patient positioning/rotation. Lines, tubes, and devices: Right apical chest tube unchanged. Cardiomediastinal silhouette: Unchanged in appearance. Lungs/Pleura: No discrete pneumothorax identified. Slightly low lung volumes with mild elevation of the right hemidiaphragm with mild bibasilar airspace disease likely reflecting atelectasis. Questional trace pleural effusions right side greater than left. Postsurgical changes right lung apex. Previously seen foci of right diaphragmatic air no longer identified. Osseous structures: Unchanged in appearance. Soft tissues: Subcutaneous emphysema along the right lateral chest wall and base of neck. Report Dictated on Electronically Signed By: Bernabe Serna MD Electronically Signed Date/Time: 01/12/2025 7:19 AM EDT [facility] Radiology Study observation (narrative) [facility] 30on 01-11-2025 30 Problem: Pain - Adul t Goal: Verbalizes/displays adequate comfort level or baseline comfort level Outcome: Progressing Flowsheets (Taken 01/11/2025 013) Verbalizes/displays adequate comfort level or baseline comfort level: Encourage patient to monitor pain and request assistance Assess pain using appropriate pain scale Administer analgesics based on type and severity of pain and evaluate response Implement non-pharmacological measures as appropriate and evaluate response Problem: Discharge Planning Goal: Discharge to home or other facility with appropriate resources Outcome: Progressing Flowsheets (Taken 01/11/2025131) Discharge to home or other facility with appropriate resources: Identify discharge learning needs (meds, wound care, etc) Normal [facility] [id number] 01-11-2025 [id number] Discussed Home Care Services available to patient post DC from the hospital. Educated the patient on the services that are provided, objective of home care, and reason for the services. At this time the patient states they feel home care is not necessary. The patient politely refused the home care services. The patient was educated that should any needs arise post DC to follow up with their PCP. The patient was able to verbalize understanding. Home care to sign off. Please re-consult should any other needs arise prior to DC. [facility] BASIC METABOLIC PANELon - Anion gap [Moles/Vol] 7 mmol/L Normal 3-13 [facility] Comment on above: Performed By: #### L AB15 ####Skip Tender: APOLONIA PADILLA ([id number])[facility] ([facility])[address] [place] [address] Calcium [Mass/Vol] 8.1 mg/dL Low 8.8-10.0 [facility] Comment on above: Performed By: #### L AB15 ####Skip Tender: APOLONIA PADILLA ([id number])[facility] ([facility] [place] [address] Chloride [Moles/Vol] 107 mmol/L Normal 98-107 [facility] Comment on above: Performed By: #### L AB15 ####Skip Tender: APOLONIA PADILLA ([id number])[facility] ([facility])[address] [place] [address] CO2 [Moles/Vol] 22 mmol/L Low 23-31 [facility] Comment on above: Performed By: #### L AB15 ####Skip Tender: APOLONIA PADILLA ([id number])[facility] ([facility])[address] [place] [address] Creatinine [Mass/Vol] 0.89 mg/dL Normal 0.72-1.25 [facility] Comment on above: Performed By: #### L AB15 ####Skip Tender: APOLONIA PADILLA ([id number])[facility] ([facility])[address] [place] [address] GLOMERULAR FILTRATION RATE ML/MIN/1.73 SQ M.PREDICTED >90.0 Normal >60.0 [facility] Comment on above: Result Comment: Calc ulation based on the Chronic Kidney Disease Epidemiology Collaboration (CKD-EPI) equation refit without adjustment for race Performed By: #### L AB15 ####Skip Tender: APOLONIA PADILLA ([id number])[facility] ([facility])[address] [place] [address] Glucose [Mass/Vol] 149 mg/dL High 82-115 [facility] Comment on above: Performed By: #### L AB15 ####Skip Tender: APOLONIA PADILLA ([id number])[facility] ([facility])[address] [place] [address] Potassium [Moles/Vol] 4.3 mmol/L Normal 3.5-5.1 [facility] Comment on above: Result Comment: [facility] potassium values may be up to 0.5 mmol/L lower than serum values. Performed By: #### L AB15 ####Skip Tender: APOLONIA PADILLA ([id number])[facility] ([facility] [place] [address] Sodium [Moles/Vol] 136 mmol/L Normal 136-145 [facility] Comment on above: Performed By: #### L AB15 ####Skip Tender: APOLONIA PADILLA ([id number])[facility] ([facility] [place] [address] Urea nitrogen [Mass/Vol] 16 mg/dL Normal 9-23 [facility] Comment on above: Performed By: #### L AB15 ####Skip Tender: APOLONIA PADILLA ([id number])[facility] ([facility] [place] [address] Basic metabolic 1998 panelon 01-11-2025 Anion gap [Moles/Vol] 7 mmol/L 3 - 13 mmol/L [facility] Calcium [Mass/Vol] 8.1 mg/dL Low 8.8 - 10. 0 mg/dL [facility] Chloride [Moles/Vol] 107 mmol/L 98 - 10 7 mmol/L [facility] CO2 [Moles/Vol] 22 mmol/L Low 23 - 31 mmol/L [facility] Creatinine [Mass/Vol] 0.89 mg/dL 0.72 - 1.25 mg/dL [facility] GFR/1.73 sq M.predicted (S/P/Bld) [Vol rate/Area] - PINF [facility] Comment on above: Calculation based on the Chronic Kidney Disease Epidemiology Collaboration (CKD-EPI) equation refit without adjustment for race Glucose [Mass/Vol] 149 mg/dL High 82 - 115 mg/dL [facility] Interpretation and review of laboratory results Abnormal [facility] Potassium [Moles/Vol] 4.3 mmol/L 3.5 - 5.1 mmol/L [facility] Comment on above: Plasma potassium vinayak ues may be up to 0.5 mmol/L lower than serum values. Sodium [Moles/Vol] 136 mmol/L 136 - 145 mmol/L [facility] Urea nitrogen [Mass/Vol] 16 mg/dL 9 - 23 mg/dL [facility] CBC (HEMOGRAM)on 01-11-2025 Erythrocyte distribution width (RBC) [Ratio] 13.5 % Normal 11.5-15.0 [facility] Comment on above: Performed By: #### L [id number] ####Skip Tender: APOLONIA PADILLA ([id number])[facility])[address] [place] [address] Hematocrit (Bld) [Volume fraction] 39.2 % Low 40.0-52.0 [facility] Comment on above: Performed By: #### L [id number] ####Skip Tender: APOLONIA PADILLA ([id number])[facility])[address] [place] [address] Hemoglobin (Bld) [Mass/Vol] 13.2 g/dL Normal 13.0-18.0 [facility] Comment on above: Performed By: #### L AB294 ####Skip Tender: APOLONIA PADILLA ([id number])[facility])[address] [place] [address] MCH (RBC) [Entitic mass] 30.9 pg Normal 26.0-34.0 [facility] Comment on above: Performed By: #### L AB294 ####Skip Tender: APOLONIA PADILLA ([id number])[facility])[address] [place] [address] MCHC 33.7 % Normal 30.5-36.0 [facility] Comment on above: Performed By: #### L [id number] ####Skip Tender: APOLONIA PADILLA ([id number])[facility])[address] [place] [address] MCV (RBC) [Entitic vol] 91.8 fL Normal 77.0-99.0 [facility] Comment on above: Performed By: #### L AB294 ####Skip Tender: APOLONIA PADILLA ([id number])[facility])[address] [place] [address] Platelet mean volume (Bld) [Entitic vol] 9.7 fL Normal 9.0-12.7 [facility] Comment on above: Performed By: #### L AB294 ####Skip Tender: APOLONIA PADILLA ([id number])[facility])[address] [place] [address] Platelets (Bld) [#/Vol] 147 10*3/uL Normal 140-440 [facility] Comment on above: Performed By: #### L [id number] ####Skip Tender: APOLONIA PADILLA ([id number])[facility])[address] [place] [address] RBC (Bld) [#/Vol] 4.27 10*6/uL Low 4.40-5.90 [facility] Comment on above: Performed By: #### L AB294 ####Skip Tender: APOLONIA PADILLA ([id number])[facility])[address] [place] [address] WBC (Bld) [#/Vol] 9.6 10*3/uL Normal 3.6-10.7 [facility] Comment on above: Performed By: #### L AB294 ####Skip Tender: APOLONIA PADILLA ([id number])[facility])[address] [place] [address] CBC panel Auto (Bld)on 01-11 Erythrocyte distribution width (RBC) [Ratio] 13.5 % 11.5 - 15.0 % [facility] Hematocrit (Bld) [Volume fraction] 39.2 % Low 40.0 - 52.0 % [facility] Hemoglobin (Bld) [Mass/Vol] 13.2 g/dL 13.0 - 18.0 g/dL [facility] Interpretation and review of laboratory results Abnormal [facility] MCH (RBC) [Entitic mass] 30.9 pg 26.0 - 34.0 pg [facility] MCHC (RBC) [Mass/Vol] 33.7 % 30.5 - 36.0 % [facility] MCV (RBC) [Entitic vol] 91.8 fL 77.0 - 99.0 fL [facility] Platelet mean volume (Bld) [Entitic vol] 9.7 fL 9.0 - 12.7 fL [facility] Platelets (Bld) [#/Vol] 147 10*3/uL 140 - 440 10*3/uL [facility] RBC (Bld) [#/Vol] 4.27 10*6/uL Low 4.40 - 5.9 0 10*6/uL [facility] WBC (Bld) [#/Vol] 9.6 10*3/uL 3.6 - 10.7 10*3/uL [facility] No Panel InformationOrdered By: Colton Cooper on 01-11-2025 Case Report Surgical Pathology Case: [id number] Authorizing Provider: Sarah Luna DO Collected: 01/10/2025 0856 Ordering Location: [facility] MA[facility] OR Received: 01/10/2025 1200 Pathologist: Colton Cooper MD Specimens: A) - Lung, Right Upper Lobe, RIGHT UPPER LOBE WEDGE B) - Lymph Node, LEVEL 9R LYMPH NODE C) - Lymph Node, LEVEL 7 LYMPH NODE D) - Lymph Node, LEVEL 4R LYMPH NODE [facility] Work Phone: Clinical Information y4mjkOIkDWNikUXrKVJ wMV dktfIfMLBpgFJdA0Drurpb DAtqPF7iVT8hrBcawDSztJ YlFBRvHaZfx3hfw748oPAl x5twLRGFAVgnNEBIFFh5tB zkV59uc8P9WnwdO1ihEOIf PIsgDACsGWitsCWqNRk1JL BhcGVydzEyMjQwXHBhcGVy sOV6RSMrUG7nfqlkDVjdVQ jmADZjddM4JHVnnBBgJ4Uf VLBuSH9bcrrrHFI2QZrxGU UsEVW5HrFrEHPts9Tsivn3 MjBccGFyZFxwbGFpblxmcz CbEAYzMNNBj5jszXXwcAWi hBkwk94omnxfjw8ocGiyWD 4rDxnmRmEhH9kSNS1jTM8J BA7dZ7LaENHorYEybJ== [facility] Work Phone: Gross Description m9lasRQcFBJakCCcQKYb MV akvmHwRJWjhRCmO4Lviddx ATrfGA9mQT3wyMlitCIejI SfABFcUmYyu9pye702hWAz s1sgZIDZPTqwSLQDPFb4iA ltN74rl4L3TddmO47zrXWu YWL2ANUxHIIbeFRaSDYkJI G3NVIjaVQtZ1elFHYnKT6u jwjwGUykZOvgJXZwmJT7HG RhnHClN2ObSLTmKBydLMCk zqa5QoZuMt5ynWMrnHuoIU xwYXJkXHBsYWluXGZzMjAg AK8pzHIuOCHfU7XjwlYpBC RnMYZiMFJzuxRroa74PW4w b4EtcWiwfjDrtZXxui9ikU MgbGFiZWxlZCAicmlnaHQg aDCxKGIalA1xRRB1JDPgGQ HpgZNmQIZ5WjtglQP5RMci XL13HEQgFQV5jqLcYQ7jEJ HjhODyRaM5MXJsWW5yCESu FTJmrCR8qaJofEZvbC7fNF EjCypmZ1hdCWEDgEBtp3Vb cGxlIGxpbmUgaXMgcmVtb3 ZlZCBhbmQgdGhlIHVuZGVy cHzkpnrotTRfLE3yxGdkSP BpcyBpbmtlZCBibHVlLiAg IZjiwsIjmGGpVUQ8gRo4AY 7lKSLjam6ezTqpNTEoUSIk wGOhBS47POtjWFG0JHNaZ1 0lQHNQUOCgmHRlt8LobBP5 iXJxYQExtjAzm94msBAmz5 GxfEf9lNCkXBBanoFhlr01 MM2ob7GelWkbptGnoRMmvr 9zaXMuICBUaGUgcmVtYWlu BRMkTS6gOFOrEHKpqITzzA 2qihNpneTzUQF7yY0oWUPb wtO8TZRxjW8cVSAwTRBwKG dpdGggZGlsYXRlZCBhaXJz tTVvMGJvSD6xEPMuV9BjYC WwQhTay8hhLsJqJJ0zEVUi gMWin39tcNS9NKljTEKlZr jrXNTyhDIhiePhdyPdv4Bq s3Ifhf5lBCEcYCTuWZbjdq f2eVAnQqE2yYBrz9BpQ6Nk k7l7wCR3lWPpbwLpONrsJE TkSQ1lTRPjWKRgRRJhPFzk XER8Rp8bjPJeMJArlwDsYC RyGRCxUQC5MHOxi0j0sDCe XJLaZEVszWAqgl57HC6xx2 SskFpuxfY2fCVtvKNkRaLt qcuuj9ZwkWn7hORhYCshNT Fit4UwcEMlDQHgMnVtnVMg CXDwwsOFRsn7JVHdPzIzCG a1TFZfxT9eTz2euAKpbH9u rGKjYQppXLBdbDF6OUzeWZ BboQzsrXiakb5fQCPjnMOa YSAwLjcgeCAwLjQgeCAwLj TlL08clqSjPDDzgwDxq3K5 QHBsn2W6JIOfzpHliICrwO O8qNH2VQczMPF5Ue5agDCc FPMjmdKwavQcH6Ydg3Q6rR UuIFxwYXJccGFyIEMuXHRh YiBSZWNlaXZlZCBpbiBmb3 JtYWxpbiBsYWJlbGVkICJs RLStmAZ2LUr6uJWbVZ1iXY BaWJlwDGPbLp9yIUyqEX15 WMiwFE67SOMyGYZqZP5bxa 53qdSmL4ltJRjyzVTwq9Nh a92nwFB3mTDsiWKiY47gc6 cybKWzrNP2lJIzZEUfCMtg LM59CLCrzAhlfRyhxl2sNH 4gIFRoZSBsYXJnZXIgcGll A9QsVFOnBGQmOBU8dJ5sHB CwFXIQbBJon2KwG1rzWT8w iMHsq9OgeUm4mQNxHJHarC ecXTx5FLcyCBM1aeVdTYBo ZYI0JVRtFGekQROfxLWwKP QuXHRhYiBSZWNlaXZlZCBp kxVdf6OiABzipoSdTYDofD GnDHMxTLCqcJZ4LrYscD8x yQTos2TbPsPlfqCiXNZlLV M7UJFoImM7PZPfTtKwwZSj L3noBYhmwTZoo8GfdMHdqH 03AOSxzbeaOrmdca6wOUK6 cU4klSSvBFZdsmldd77guP M0sDRtdUCoXJLJvQRpr4Bq K0oiZY8swSDfw2BkrTw8dW NzFEneCM9pPMIxHVBiRHM6 IA2rLJGvok1= [facility] [employer] Work Phone: Pathology report final diagnosis Narrative k0ufiSBuYCXolWHoMAGgZK hwidFeQPPrxKHxT7Zuwbxu SJwaYE9sXD8sqJzlzLInqF WuVVNvSwIkm4wbk647iOYz g1shXUMYEGkgTCUITZt0cA xvQ91pc8I6NfkmN89qhSQi DJX1JPMmHTJgsOOpMBYiXI W2MIXieCLgW2ghPPMsGU4b onkfOOxlPQxbRBKevOJ7MS NmwOUdB8NeHUIwLRyvCYJe uqk3SbYlXf8hbAUoiKoyFO xwYXJkXHBsYWluXGZzMjBc xSAiCZNfPTQXXD5CCPFBZF sAMWKIOPCKEgTOS5NSUCDZ XZYBGUZVFNFXY6PYE764KR EkhovbdfYxi6cqSPEBVUKi A7MzU1CNRU2HRgkGWmWQAs WXBC2UHIDpsZTeOLAsWLVy xDXoOlNYYWPDAoSyOk0BON 5NGRlIOdMTR4vmJN8UOXvO TE1GVD6AMZPhnTHbNZWrpa UQGlWiGUyMHYovSt3TNIly KLVHNGntNOW9TSAyscxynj Hqp6waFH9BZ1WFPHVIQATx nzubEIStNs3fMBgATISWTO 2BKDAzIZwKKxGIHJh5NBGj hmikgzLez9mfUE8OS7BVIT UJUDJestvhVRDrLQ9pBTdH DFTDPF3GHHKlVYyGPtFDUK MNDhvtQFLcVB4nCFYyNWPF RUdBVElWRVxwYXJccGFyIF IfeNQgL3XmWWR5VERtrpQ9 qAC5CMBfCrasKHNyYBlxyI FuN0PnNJsgciGan81vrMDj USqffUyjfSmaFDKdq9HgEA zooHJonUPhhVT5qV6oBews YXJccGFyZFxwYXJ9 [facility] [employer] Work Phone: [facility] [employer] Phone: Progress Noteon 01-11-2025 Progress Note [facility] Anticoagulatio n Management Service (BRITTANY) Inpatient Warfarin Consult HPI: Rich James is a 69 y.o. male admitted on 01/10/2025 for Solitary pulmonary nodule [R91.1] Lung nodule [R91.1]. Medical History[1] Patient is on warfarin for DVT, Afib, Protein C Deficiency and has a goal INR 2.0 - 3.0. Warfarin is currently managed by PCP. Pt's home dose of warfarin is 2.5 mg on Th and 5 mg on all other days. Pt's last INR in the clinic was 1 on 01/10. S/sx of bleeding= none reported Interacting medications= Ketoralac 15 mg IV q6hrs x 4 doses Labs: Recent Labs 01/11/25 0210 HGB 13.2 HCT 39.2* PLT 147 Recent Labs 01/10/25 0631 INR 1.0 Date INR Dose 01/11 --- 5mg 01/10 1 HOLD Assessment/Plan: 1. INR is subtherapeutic due to multiple held doses for surgery. Will give warfarin 5 mg today according to home regimen. 2. Can consider Lovenox or heparin bridge for this pt (has history of Protein C deficiency) 3. Monitor for s/s of bleeding and drug interactions. Will adjust dose accordingly. 3. Warfarin is managed by PCP outpatient. BRITTANY will manage inpatient and sign off at discharge. Fawad Burton PharmD [facility] Consult Service is available daily [phone] via [employer]. [1] Past Medical History: Diagnosis Date COPD (chronic obstructive pulmonary disease) (HCC) GERD (gastroesophageal reflux disease) Hiatal hernia 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 Obesity FIFI (obstructive sleep apnea) Paroxysmal atrial fibrillation (HCC) Protein deficiency anemia Right bundle branch block Normal [facility] Progress Note -- Attestation signed by Sarah Luna DO at 01/11/2025 3:15 PM CARDIOTHORACIC SURGERY DOS: 01/11/25 POD # 1 Robotic right upper lobe wedge I personally performed a zrce-cf-tixy diagnostic evaluation on this patient I agree with the findings and plan of care as documented by the CARMELITA or resident. There has been no change in the physical exam or findings unless otherwise noted below. Doing well today. Minimal activity so far--he was told he is not allowed to walk. Denies any pain. Chest tube with small air leak--he can likely tolerate water seal. Orders in. Otherwise doing quite well. Home soon. A total of 20 minutes were spent between the aixl-fo-ouic encounter, physical exam, reviewing the medical history, coordinating care, counseling/educating the patient, ordering medications/test/proce dures, interpreting results and documenting in the patient's record on the day of the encounter. The patient was seen and examined independently and relevant data reviewed by myself. Savanah Luna, DO [facility] Cardiothoracic Surgery Cardiothoracic Surgery/[facility] Progress Note PATIENT NAME: Rich James DATE: 01/11/25 HPI: 69 yo male with PMH of A Fib, GERD, DVT, tobacco abuse. Pt completed regular CT lung screening on 11/17/24 which showed a new irregular right apical nodule measuring approximately 18 mm. A PET scan was performed, which demonstrated hypermetabolic right apical nodule and no evidence of metastatic disease. He was seen by Dr. Luna and consented to surgical resection. Surgery/Procedure: 01/10/25- Robotic right thoracoscopy, right upper lobe wedge resection, mediastinal lymph node dissection with Dr. Luna Interval History: 01/11/25, POD# 1: VSS, afebrile. On 2L NC. Resting comfortably in bed, reports his pain is well controlled at this time. CT has +AL. Review of Systems Constitutional: Positive for activity change and fatigue. Negative for diaphoresis and fever. Respiratory: Positive for shortness of breath. Negative for cough and wheezing. Cardiovascular: Negative for chest pain, palpitations and leg swelling. Gastrointestinal: Negative for abdominal distention, abdominal pain, nausea and vomiting. Skin: Negative for color change, pallor and rash. Objective: CT output cc/24hrs: 40 mL UO cc/24hrs: 2,100 mL Vitals: BP: (!) 112/45, MAP (mmHg): 67, Heart Rate: 56 Resp: 18 Temp: 36.9 ?C (98.5 ?F), Temp Source: Temporal BMI (Calculated): 28.96 CXR: BMP: Recent Labs 01/11/25 0209 NA 136 K 4.3 CL 107 CO2 22* BUN 16 CREATININE 0.89 CALCIUM 8.1* CBC: Recent Labs 01/11/25 0210 WBC 9.6 HGB 13.2 HCT 39.2* PLT 147 MCV 91.8 RDW 13.5 INR: Recent Labs 01/10/25 0631 INR 1.0 Physical Exam Cardiovascular: Rate and Rhythm: Normal rate. Heart sounds: Normal heart sounds. No murmur heard. Pulmonary: Effort: Pulmonary effort is normal. Breath sounds: Examination of the right-lower field reveals decreased breath sounds. Decreased breath sounds present. Abdominal: General: Bowel sounds are normal. Palpations: Abdomen is soft. Tenderness: There is no abdominal tenderness. Genitourinary: Comments: Bennett catheter to straight drain Musculoskeletal: Right lower leg: No edema. Left lower leg: No edema. Skin: General: Skin is warm and dry. Capillary Refill: Capillary refill takes less than 2 seconds. Findings: Bruising and ecchymosis present. Comments: Surgical Incisions: well approximate; clean dry with no drainage noted. Surrounding skin no redness, warmth, or signs of infection noted. Neurological: Mental Status: He is alert. Psychiatric: Behavior: Behavior is cooperative. Assessment: Right upper lobe nodule s/p wedge resection COPD PAF DVT Former tobacco use Plan: Patient status: tele Home meds resumed Consult Brittany for restart home Coumadin CT with + air leak- continue to -20 mmHg suction today Daily CXR Pain regimen Scheduled- Acetaminophen PRN- Toradol, Morphine, Oxycodone D/C bennett catheter Okay for OOB to chair PT/OT ordered TCC/Discharge Planning TBD Patient discussed and plan of day developed from multidisciplinary rounds between Cardiothoracic Surgery (Cardiothoracic Surgeon, CARMELITA) and Critical Care Attending Tele Status A total of 28 minutes were spent between the ldex-zt-rxsd encounter, physical exam, reviewing the medical history, coordinating the patient's care, counseling/educating the patient, ordering medications/test/proce dures, interpreting results and documenting clinical information in the patients electronic health record on the day of the encounter. The patient was seen and examined [facility] XR CHEST 1 VIEWon 01-11-2025 XR CHEST 1 VIEW Patient Name: RICH JAMES : 1955 Exam Date/Time: 01/11/2025 06:15 Procedure: XR CHEST 1 VIEW Ordering Provider: LUNA RICHARD Reason For Exam: Chest tube placement AP CHEST X-RAY CLINICAL INDICATION: Chest tube placement TECHNIQUE: AP portable x-ray of the chest. COMPARISON: January 10, 2025 FINDINGS: Lines/Tubes: Right-sided chest tube is noted with distal tip at the level the apex the right hemithorax. Heart/Mediastinum: Within normal limits Lungs: Well-inflated and clear. No pneumothorax. Bones: Remote fracture is noted of the distal right clavicle. Soft tissue gas is noted in the right lateral chest wall soft tissues. There is also soft tissue gas in the right supraclavicular region. Sliver of low attenuation is noted under the right hemidiaphragm concerning for free air. IMPRESSION: Sliver of low attenuation is noted under the right hemidiaphragm concerning for free air, likely postsurgical. The critical result of small sliver of free air, likely postsurgical was discussed with physician/provider SARAH LNUA by Rollad chat on 01/11/2025 at 6:48 AM EDT. Report Dictated on Electronically Signed By: Vlad Wilkins MD Electronically Signed Date/Time: 01/11/2025 6:48 AM EDT Normal [facility] XR Chest Single viewon 01-11 Sliver of low attenuation is noted under the right hemidiaphragm concerning for free air, likely postsurgical. The critical result of small sliver of free air, likely postsurgical was discussed with physician/provider SARAH LUNA by Rollad chat on 01/11/2025 at 6:48 AM EDT. Report Dictated on Electronically Signed By: Vlad Wilkins MD Electronically Signed Date/Time: 01/11/2025 6:48 AM EDT [facility] Patient Name: RICH JAMES : 1955 Exam Date/Time: 01/11/2025 06:15 Procedure: XR CHEST 1 VIEW Ordering Provider: LUNA RICHARD Reason For Exam: Chest tube placement AP CHEST X-RAY CLINICAL INDICATION: Chest tube placement TECHNIQUE: AP portable x-ray of the chest. COMPARISON: January 10, 2025 FINDINGS: Lines/Tubes: Right-sided chest tube is noted with distal tip at the level the apex the right hemithorax. Heart/Mediastinum: Within normal limits Lungs: Well-inflated and clear. No pneumothorax. Bones: Remote fracture is noted of the distal right clavicle. Soft tissue gas is noted in the right lateral chest wall soft tissues. There is also soft tissue gas in the right supraclavicular region. Sliver of low attenuation is noted under the right hemidiaphragm concerning for free air. [facility] Vlad Wilkins MD - 01/11/2025 [facility] : 1955 [id number] Exam Date/Time: 01/11/2025 06:15 Procedure: XR CHEST 1 VIEW Ordering Provider: LUNA RICHARD Reason For Exam: Chest tube placement AP CHEST X-RAY CLINICAL INDICATION: Chest tube placement TECHNIQUE: AP portable x-ray of the chest. COMPARISON: January 10, 2025 FINDINGS: Lines/Tubes: Right-sided chest tube is noted with distal tip at the level the apex the right hemithorax. Heart/Mediastinum: Within normal limits Lungs: Well-inflated and clear. No pneumothorax. Bones: Remote fracture is noted of the distal right clavicle. Soft tissue gas is noted in the right lateral chest wall soft tissues. There is also soft tissue gas in the right supraclavicular region. Sliver of low attenuation is noted under the right hemidiaphragm concerning for free air. IMPRESSION: Sliver of low attenuation is noted under the right hemidiaphragm concerning for free air, likely postsurgical. The critical result of small sliver of free air, likely postsurgical was discussed with physician/provider SARAH LUNA by Zlio secure chat on 01/11/2025 at 6:48 AM EDT. Report Dictated on Electronically Signed By: Vlad Wilkins MD Electronically Signed Date/Time: 01/11/2025 6:48 AM EDT [facility] Radiology Study observation (narrative) [facility] XR Chest Single viewOrdered By: Vlad Wilkins on 01-11-2025 [facility] Work Phone: Laboratory - Coagulationon 0 01-10-2025 PT Coag (Bld) [Time] 10.9 s 9.0 - 12.0 s [facility] Nursing Noteon 01-10-[address] Ding patien t is not to wear his home cpap due to risk of rupture of the staple line and risk of pneumothorax. Re-entered patient's room and explained this to patient, patient understands and states he will not put on his home cpap, Placed patient back on 2L oxygen for the night. Normal [facility] Nursing Note Notified Dr. Ding patient is inquiring on whether his coumadin and bupropion will be ordered. Dr. Ding stated it is too soon after surgery to begin coumadin, patient educated. Bupropion medication will be non-formulary, patient understands he is to have his bring it from home. Normal [facility] Nursing Note Report called to H6, family updated [facility] Op Noteon 01-10-2025 Op Note CARDIOTHORACIC SURGERY--OPERATIVE NOTE Date: 01/10/25 Preoperative Diagnosis: Right upper lobe lung nodule Postoperative Diagnosis: Right upper lobe lung nodule Procedure: Robotic right thoracoscopy Right upper lobe wedge resection Mediastinal lymph node dissection Surgeon: Savanah Luna DO Language Assistant: Mamie Ballesteros Anesthesia: General--Dr. Houston Complications: None Estimated Blood Loss: 25 ml Blood Products: None Tubes: Chest tube x 1 Specimen: Right upper lobe wedge; stations 9R, 7, 4R lymph nodes Brief History: This is a 69 y.o. male who was seen in consultation for a right upper lobe nodule found on screening lung CT scan. No biopsy had been offered. After complete workup the above procedure was offered. The risks, benefits, and alternatives were explained in detail and he agreed to proceed. Findings: I was able to locate the nodule robotically. A wedge biopsy was performed which showed atypical hyperplasia with no evidence of malignancy. The operation was terminated with that information. Lymph nodes were anthracotic in appearance. Details of Procedure: The patient was brought to the operative suite and placed in supine position on the operative table. General anesthesia was administered with a double-lumen endotracheal tube and all appropriate lines and tubes were placed. The patient was then placed in the left lateral decubitus position. The chest was then prepped and draped in usual sterile fashion. The assistant womens volleyball coach was present for the entire procedure from start to finish and helped with all portions of it. Local lidocaine was used at each of our incision sites. An 8 mm incision was made at the approximate eighth intercostal space posterior axillary line. A trocar was placed through this followed by the camera. The other incisions were made under direct visualization. A posterior incision in the same interspace was made and an 8 mm port was placed through this. In between these two a 12 mm incision was made and a 12 mm port was placed. Another incision was made anteriorly and a 12 mm port was placed through this. At the costophrenic angle the air seal port was placed under direct visualization. The robot was then brought to the field and the camera was docked. Appropriate targeting took place. The other instruments were then placed. At this time I scrubbed out to perform the procedure robotically. There were no pleural implants seen. The fissures were reasonably well-developed. Manipulation of the upper lobe indicated the location of the nodule in question. Because I felt confident that the nodule was at this site I elected to perform a wedge biopsy first. This was done using several firings of an Endo ALTON 45 stapler with blue loads. I took care to leave a generous margin beneath the nodule. Once it was removed it was placed into an Endo Catch bag and sent for frozen section. During this time a lymph node biopsy was performed. The inferior pulmonary ligament was taken down and the station 9 lymph node was removed. I then opened up the posterior hilum to reveal the subcarinal space. The station 7 lymph nodes were removed from here. Hemostasis was adequate. I then curved around the top of the hilum. The paratracheal area was opened and several station 4 lymph nodes were removed. Before proceeding further we awaited pathology results. Pathology revealed no malignant cells and the appearance of atypical cellular hyperplasia. With no evidence of cancer I elected to terminate the procedure at this point. Hemostasis was assured at each of our surgical sites. The robot was undocked and removed. A single 28 Surinamese chest tube was placed through the anterior incision. The lung was ventilated and and found to be well-inflated. The camera was then removed along with all the trocars. Each of the incisions were closed in layers with absorbable sutures. The procedure was then terminated. At the end of the procedure all the sponge and sharp counts were correct. Disposition: The patient was taken in stable condition to the PACU. There will be close monitoring of outputs and hemodynamics. Savanah Luna, DO FACS Cardiothoracic Surgery Normal [facility] PROTHROMBIN TIMEon INR Coag (PPP) [Relative time] 1.0 {INR} Normal 0.9-1.1 [facility] Comment on above: Order Comment: If pa tient on coumadin within 4 days prior. Result Comment: Hernán mmended Anticoagulant Therapy: SEE BELOW ----- INR of 2.0 - 3.0 : - Prophylaxis of Venous Thrombosis (high-risk surgery) - Treatment of Venous Thrombosis - Treatment of Pulmonary Embolism (Includes tissue heart valves, Acute Myocardial Infarction to prevent systemic embolism, Valvular Heart Disease, and Atrial Fibrillation) ----- INR of 2.5 - 3.5 : - Mechanical Prosthetic Valves (high risk) - If oral anticoagulant therapy is used to prevent Myocardial Infarction Performed By: #### L [id number] ####Skip Tender: APOLONIA PADILLA ([id number])[address] PT Coag (PPP) [Time] 10.9 s Normal 9.0-12.0 [facility] Comment on above: Order Comment: If pa tient on coumadin within 4 days prior. Performed By: #### L AB320 ####Skip Tender: APOLONIA PADILLA ([id number])[address] PT Coag (Bld) [Time]on 01-10 INR Coag (PPP) [Relative time] 1 {INR} 0.9 - 1.1 [facility] Comment on above: Recommended Anticoag ulant Therapy: SEE BELOW ----- INR of 2.0 - 3.0 : - Prophylaxis of Venous Thrombosis (high-risk surgery) - Treatment of Venous Thrombosis - Treatment of Pulmonary Embolism (Includes tissue heart valves, Acute Myocardial Infarction to prevent systemic embolism, Valvular Heart Disease, and Atrial Fibrillation) ----- INR of 2.5 - 3.5 : - Mechanical Prosthetic Valves (high risk) - If oral anticoagulant therapy is used to prevent Myocardial Infarction Interpretation and review of laboratory results [facility] XR CHEST 1 VIEWon 01-10-2025 XR CHEST 1 VIEW Patient Name: RICH JAMES : 1955 [facility]#: [id number] Exam Date/Time: 01/10/2025 13:51 Procedure: XR CHEST 1 VIEW Ordering Provider: LUNA RICHARD Reason For Exam: Chest tube placement; chest tube placement CHEST - PORTABLE: CLINICAL INDICATION: Chest tube placement; chest tube placement TECHNIQUE: Portable AP COMPARISON: None. IMPRESSION: FINDINGS/IMPRESSION: Limitations: Patient rotation. Lines, tubes, and devices: Right-sided chest tube with its tip located at the right lung apex. Catheter-like device projecting over the superior left hemithorax with its tip terminating along the central mediastinum could reflect a cardiac monitoring lead or less likely left-sided PICC line. This can be reassessed on follow-up chest radiographs with improved patient positioning if feasible. Cardiomediastinal silhouette: Heart size is within normal limits. Atherosclerotic calcifications. Lungs/Pleura: Mild left basilar airspace disease likely atelectasis. No sizable pleural effusions. No pneumothorax. Suspect postsurgical changes right lung apex. Osseous structures: Degenerative spondylosis in the visualized spine. Degenerative changes in the right and left shoulder. Soft tissues: Small amount of subcutaneous emphysema right supraclavicular soft tissues and right inferior lateral chest wall. Report Dictated on Electronically Signed By: Bernabe Serna MD Electronically Signed Date/Time: 01/10/2025 2:13 PM EDT Normal [facility] XR Chest Single viewon 01-10 FINDINGS/IMPRESSION: Limitations: Patient rotation. Lines, tubes, and devices: Right-sided chest tube with its tip located at the right lung apex. Catheter-like device projecting over the superior left hemithorax with its tip terminating along the central mediastinum could reflect a cardiac monitoring lead or less likely left-sided PICC line. This can be reassessed on follow-up chest radiographs with improved patient positioning if feasible. Cardiomediastinal silhouette: Heart size is within normal limits. Atherosclerotic calcifications. Lungs/Pleura: Mild left basilar airspace disease likely atelectasis. No sizable pleural effusions. No pneumothorax. Suspect postsurgical changes right lung apex. Osseous structures: Degenerative spondylosis in the visualized spine. Degenerative changes in the right and left shoulder. Soft tissues: Small amount of subcutaneous emphysema right supraclavicular soft tissues and right inferior lateral chest wall. Report Dictated on Electronically Signed By: Bernabe Serna MD Electronically Signed Date/Time: 01/10/2025 2:13 PM EDT [facility] Patient Name: RICH JAMES : 1955 Exam Date/Time: 01/10/2025 13:51 Procedure: XR CHEST 1 VIEW Ordering Provider: LUNA RICHARD Reason For Exam: Chest tube placement; chest tube placement CHEST - PORTABLE: CLINICAL INDICATION: Chest tube placement; chest tube placement TECHNIQUE: Portable AP COMPARISON: None. [facility] Cheyenne Serna MD - 01/10/2025 Patient Name: RICH JAMES : 1955 Exam Date/Time: 01/10/2025 13:51 Procedure: XR CHEST 1 VIEW Ordering Provider: LUNA RICHARD Reason For Exam: Chest tube placement; chest tube placement CHEST - PORTABLE: CLINICAL INDICATION: Chest tube placement; chest tube placement TECHNIQUE: Portable AP COMPARISON: None. IMPRESSION: FINDINGS/IMPRESSION: Limitations: Patient rotation. Lines, tubes, and devices: Right-sided chest tube with its tip located at the right lung apex. Catheter-like device projecting over the superior left hemithorax with its tip terminating along the central mediastinum could reflect a cardiac monitoring lead or less likely left-sided PICC line. This can be reassessed on follow-up chest radiographs with improved patient positioning if feasible. Cardiomediastinal silhouette: Heart size is within normal limits. Atherosclerotic calcifications. Lungs/Pleura: Mild left basilar airspace disease likely atelectasis. No sizable pleural effusions. No pneumothorax. Suspect postsurgical changes right lung apex. Osseous structures: Degenerative spondylosis in the visualized spine. Degenerative changes in the right and left shoulder. Soft tissues: Small amount of subcutaneous emphysema right supraclavicular soft tissues and right inferior lateral chest wall. Report Dictated on Electronically Signed By: Bernabe Serna MD Electronically Signed Date/Time: 01/10/2025 2:13 PM EDT [email or web address] Rad[facility] Study observation (narrative) [email or web address] XR Chest Single viewOrdered By: Cheyenne Serna on 01-10-2025 [email or web address] Work Phone: Prothrombin Time w/INRon INR Normal [facility] Comment on above: Order Comment: Comme nts: STANDING ORDER: Fingerstick is OK Result Comment: FING ERSTICK Performed By: #### L [id number] #### [facility] [address] [place], [address] PROTIME Normal 11.7-14.9 [facility] Comment on above: Order Comment: Comme nts: STANDING ORDER: Fingerstick is OK Result Comment: FING ERSTICK Performed By: #### L [id number] #### [facility] [address] [place], [address] Protime w/INR Fingerstickon 01-06-2025 INR Coag (PPP) [Relative time] 1.4 {INR} Normal [facility] Comment on above: Result Comment: Crit ical Value > 4.0 Performed By: #### L [id number] #### [facility] [address] [place], [address] Protime [place]en 16.5 SEC High 11.7-14.9 [facility] Comment on above: Performed By: #### L [id number] #### [facility] [address] [place], [address] Protime w/INR Fingerstickon 12-30-2024 INR Coag (PPP) [Relative time] 2.6 {INR} Normal [facility] Comment on above: Result Comment: Crit ical Value > 4.0 Performed By: #### L [id number] #### [facility] [address] [place], [address] Protime [place] 27.7 SEC High 11.7-14.9 [facility] Comment on above: Performed By: #### L [id number] #### [facility] [address] [place], [address] [id number] 12-29-2024 [id number] Medication List Accurate as of December 29, 2024 2:29 PM. Always use your most recent med list. Breztri Aerosphere 160-9-4.8 MCG/ACT aerosol Generic drug: Cusdgyr-Oamuykamapq-Rq rmoterol Medication Adjustments for Surgery: Take morning of surgery buPROPion 150 MG 12 hr tablet Commonly known as: Zyban Medication Adjustments for Surgery: Take morning of surgery famotidine 20 MG tablet Commonly known as: Pepcid Medication Adjustments for Surgery: Take morning of surgery fluticasone 50 MCG/ACT nasal spray Commonly known as: Flonase Medication Adjustments for Surgery: Other (Comment) Notes to patient: NOT TAKING GLUCOSAMINE-CHONDROIT- VIT C-MN PO Medication Adjustments for Surgery: Hold morning of surgery loratadine 10 MG tablet Commonly known as: Claritin Medication Adjustments for Surgery: Take morning of surgery metoprolol succinate XL 25 MG 24 hr tablet Commonly known as: Toprol-XL Medication Adjustments for Surgery: Take morning of surgery simvastatin 20 MG tablet Commonly known as: Zocor Medication Adjustments for Surgery: Take night before surgery warfarin 5 MG tablet Commonly known as: Coumadin Medication Adjustments for Surgery: Stop 5 days before surgery Notes to patient: LAST DOSE PRE OP 01/04/25- FOLLOW COLORING ROOM WORKER INSTRUCTIONS FOR ANY BRIDGING The medication bridging plan has been discussed with the surgeon and the patient has been informed of the plan. Additional Instructions: You may take your prescription pain medication. You may take Tylenol for pain. NO Motrin, ibuprofen or Advil for 24 hours prior to surgery or longer if instructed by your surgeon. NO Aleve or Naprosyn for 5 days prior to surgery or longer if instructed by your surgeon. IF YOU TAKE BLOOD THINNERS OR ASPIRIN: DO NOT take aspirin or aspirin containing products for 5 days before surgery, or longer if instructed by your surgeon. HOLD COUMADIN AFTER DOSE ON 01/04/25. FOLLOW CARDIOLOGY INSTRUCTIONS FOR BRIDGING. Follow any instructions given to you by Dr. LUNA Shower with an antibacterial soap such as Dial or Safeguard or shower kit provided to you before coming to the hospital. No makeup, lotion, powder, deodorant or body spays. No hair products. Remove all jewelry and leave it at home. Wear loose comfortable clothing to go home in. You may brush your teeth morning of surgery. Do not wear contacts day of surgery. No marijuana (THC), smoking or alcohol for 24 hours prior to surgery. Please arrange for a responsible adult to drive you home after your surgery and that there is a responsible adult with you for 24 hours post discharge. If you have specific questions, please call your surgeon. You will receive a call the day before your surgery to verify your arrival time and date. You will be asked to arrive at least two hours prior to your scheduled surgery time. Please bring your [facility] Surgical folder and medication list with you day of surgery. We encourage you to write down any questions you may have for the surgeon, anesthesiologist, or other members of the surgical team and bring it with you the day of surgery. Please bring photo ID and insurance information. If you will be spending the night following surgery, please plan to have your ride available by 11 am on the day of discharge. [employer]ORTER SAMPLE CASE ENTER BUILDING AT THE MAIN ENTRANCE. TAKE THE H ELEVATOR TO THE FIRST FLOOR, TURN LEFT OFF THE ELEVATOR AND GO TO THE SAME DAY SURGERY REGISTRATION DESK TO CHECK IN PARKING DECK You may park in the main garage for free day of surgery, and take the bridge on level one to enter the hospital. Sign into same day surgery on the right hand side. Normal [facility] BASIC METABOLIC PANELon 06- Anion gap [Moles/Vol] 8 mmol/L Normal 3-13 [facility] Comment on above: Performed By: #### L AB15 ####Skip Tender: APOLONIA PADILLA ([id number])[facility] ([facility])[address] [place] [address] Calcium [Mass/Vol] 9.1 mg/dL Normal 8.8-10.0 [facility] Comment on above: Performed By: #### L AB15 ####Skip Tender: APOLONIA PADILLA ([id number])[facility] ([facility])[address] [place] [address] [place] Chloride [Moles/Vol] 106 mmol/L Normal 98-107 [facility] Comment on above: Performed By: #### L AB15 ####Skip Tender: APOLONIA PADILLA ([id number])[facility] ([facility])[address] [place] [address] CO2 [Moles/Vol] 26 mmol/L Normal 23-31 [facility] Comment on above: Performed By: #### L AB15 ####Skip Tender: APOLONIA PADILLA ([id number])[facility] ([facility])[address] [place] [address] Creatinine [Mass/Vol] 1.14 mg/dL Normal 0.72-1.25 [facility] Comment on above: Performed By: #### L AB15 ####Skip Tender: APOLONIA PADILLA ([id number])[facility] ([facility])[address] [place] [address] [place] GLOMERULAR FILTRATION RATE ML/MIN/1.73 SQ M.PREDICTED 70.1 mL/min/1.73m*2 Normal >60.0 [facility] Comment on above: Result Comment: Calc ulation based on the Chronic Kidney Disease Epidemiology Collaboration (CKD-EPI) equation refit without adjustment for race Performed By: #### L AB15 ####Skip Tender: APOLONIA PADILLA ([id number])[facility] ([facility])[address] [place] [address] [place] Glucose [Mass/Vol] 78 mg/dL Low 82-115 [facility] Comment on above: Performed By: #### L AB15 ####Skip Tender: APOLONIA PADILLA ([id number])[facility] ([facility])[address] [place] [address] Potassium [Moles/Vol] 4.2 mmol/L Normal 3.5-5.1 [facility] Comment on above: Result Comment: [facility] potassium values may be up to 0.5 mmol/L lower than serum values. Performed By: #### L AB15 ####Skip Tender: APOLONIA PADILLA ([id number])[facility])[address] [place] [address] Sodium [Moles/Vol] 140 mmol/L Normal 136-145 [facility] Comment on above: Performed By: #### L AB15 ####Skip Tender: APOLONIA PADILLA ([id number])[facility])[address] [place] [address] Urea nitrogen [Mass/Vol] 17 mg/dL Normal 9-23 [facility] Comment on above: Performed By: #### L AB15 ####Skip Tender: APOLONIA PADILLA ([id number])[facility])[address] [place] [address] BLOOD TYPE AND SCREEN GELon 12-29-2024 ABO GROUPING A Normal [facility] Comment on above: Performed By: #### L AB276 ####Skip Tender: APOLONIA PADILLA ([id number])[facility] ([facility])[address] [place] [address] RH TYPE IN BLOOD Positive Normal [facility] Comment on above: Performed By: #### L AB276 ####Skip Tender: APOLONIA PADILLA ([id number])[facility] ([facility])[address] [place] [address] CBC (HEMOGRAM)on 12-29-2024 Erythrocyte distribution width (RBC) [Ratio] 13.6 % Normal 11.5-15.0 [facility] Comment on above: Performed By: #### L AB294 ####Skip Tender: APOLONIA PADILLA ([id number])[facility] ([facility])[address] [place] [address] Hematocrit (Bld) [Volume fraction] 45.9 % Normal 40.0-52.0 [facility] Comment on above: Performed By: #### L AB294 ####Skip Tender: APOLONIA PADILLA ([id number])[facility])[address] [place] [address] Hemoglobin (Bld) [Mass/Vol] 15.3 g/dL Normal 13.0-18.0 [facility] Comment on above: Performed By: #### L AB294 ####Skip Tender: APOLONIA PADILLA ([id number])[facility] ([facility])[address] [place] [address] MCH (RBC) [Entitic mass] 31.2 pg Normal 26.0-34.0 [facility] Comment on above: Performed By: #### L AB294 ####Skip Tender: APOLONIA PDAILLA ([id number])[facility])[address] [place] [address] MCHC 33.3 % Normal 30.5-36.0 [facility] Comment on above: Performed By: #### L AB294 ####Skip Tender: APOLONIA PADILLA ([id number])[facility] ([facility])[address] [place] [address] MCV (RBC) [Entitic vol] 93.5 fL Normal 77.0-99.0 [facility] Comment on above: Performed By: #### L AB294 ####Skip Tender: APOLONIA PADILLA ([id number])[facility])[address] [place] [address] Platelet mean volume (Bld) [Entitic vol] 10.1 fL Normal 9.0-12.7 [facility] Comment on above: Performed By: #### L AB294 ####Skip Tender: APOLONIA PADILLA ([id number])[facility])[address] [place] [address] Platelets (Bld) [#/Vol] 202 10*3/uL Normal 140-440 [facility] Comment on above: Performed By: #### L AB294 ####Skip Tender: APOLONIA PADILLA ([id number])[facility])[address] [place] [address] RBC (Bld) [#/Vol] 4.91 10*6/uL Normal 4.40-5.90 [facility] Comment on above: Performed By: #### L AB294 ####Skip Tender: APOLONIA PADILLA ([id number])[facility])[address] [place] [address] WBC (Bld) [#/Vol] 6.1 10*3/uL Normal 3.6-10.7 [facility] Comment on above: Performed By: #### L AB294 ####Skip Tender: APOLONIA PADILLA ([id number])[address] ECG 12-LEADon 12-29-2024 ECG 12-LEAD IMPRESSION: Sinus bradycardia RBBB and LAFB No previous ECG available for comparison Electronically Signed On 12-29-2024 19:29:41 EDT by Bjorn Dixon [facility] Progress Noteon 12-29-2024 Progress Note [facility] GLENN James : 1955 Primary Care Physician: Marion Feng The patient and/or family/surrogate voluntarily agreed to participate in ACP services.has paperwork Patient?s cognitive capacity: a/o x3 Code Status: [x] [FULL CODE - Continue all advanced life support: CPR,intubation,invasiv e procedures] [_] [DNR-CCA - DO NOT do CPR, intubation] [_] [DNR-PUBLICIST - Comfort care only] [_] DNR form [was/was not] signed Summary of discussion: The patient health care POA/ surrogate is the following: candace James . [Condition that instigated the ACP on this DOS, relevant PMH, functional status, goals of care, and whom this was discussed with including names and relationship to the patient, and any relevant advance care documentation discussion] I answered all the patient/family questions that I could within the range and scope of the current medical situation. We discussed the medical conditions, risks, benefits, outcomes, and goals of care at this time for the patient's medical issues at hand in the face of the patient's chronic issues and current presentation. Total time spent: 3 minutes were spent discussing the patient's resuscitation status, advance care planning, and end of life care, with patient and/or family/surrogate. Larissa Herndon, PLANER SETUP OPERATOR - PERSONAL CAREGIVER [facility] 12/29/2024, 2:57 PM Normal [facility] 36on 12-24-2024 36 Surg proc orders placed. Dong Adam, PLANER SETUP OPERATOR - PERSONAL CAREGIVER 12/24/24 Normal [facility] Office Visiton 12-23-2024 Follow-up visit [id number] Rich James 1955 M Date Provider Department Center 12/23/2024 [id number]-EZOTOGSARAH GOMEZ [facility] CT None Family History Problem Relation Age of Onset Diabetes Father Family Status - Relation Status Age at Father Level of Service:60244 [place] OFFICE/OP CONSLTJ NEW/EST PT MOD MDM 40 MINUTES (58) Reason for Visit and Comments: New Patient [542] Normal [facility] Progress Noteon 12-23-2024 Progress Note [facility]AC[facility] SURGERY [address] [facility] [address] [place] [id number] Dept: [phone] Dept Loc: [phone] Visit type: New Reason for Visit: Lung nodule Assessment: 1. Right upper lobe pulmonary nodule 2. Chronic obstructive pulmonary disease, unspecified COPD type (HCC) 3. Paroxysmal atrial fibrillation (HCC) 4. 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) 5. Warfarin anticoagulation 6. Former smoker Recommendations: After extensive discussion we have decided on surgical resection of this lung nodule. It is suspicious enough in appearance that removal is a reasonable maneuver, even without a biopsy. In fact, if a biopsy were performed and found to be negative, we would still recommend surgical resection just to be sure of the finding. This was all explained to him in detail. The risks were outlined as well. A robotic approach will be used for the operation. If his forthcoming PFTs are very poor then I may switch to doing a simple wedge resection, but as it is I am planning on a right upper lobectomy. He is willing to proceed as planned. History of Present Illness Rich James is a 69 y.o. male referred by ANA Lomeli for PET positive right apical nodule. Per note, patient with past medical history significant for paroxysmal A Fib, GERD, DVT, tobacco abuse. Pt completed regular CT lung screening on 11/17/24 which showed a new irregular right apical nodule measuring approximately 18 mm, and coronary artery calcification. A PET scan was performed, which demonstrated hypermetabolic right apical nodule and no evidence of metastatic disease. Patient recently quit smoking. Patient is currently taking warfarin. Patient is here today for an evaluation. He found this nodule on routine annual low dose CT screening. He denies any chest pain, shortness of breath, cough, hemoptysis, or weight loss. He quit smoking a couple weeks ago after about 50 years of 1 ppd. He takes warfarin for atrial fibrillation and a right leg DVT he had many years ago. He is not diabetic and has no other cancer history. His PET/CT was reviewed and appears very suspicious for a primary malignancy in the right upper lobe. No other abnormality or signs of metastatic disease are seen. 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 HENT: Negative. Eyes: Negative. Respiratory: Negative. Cardiovascular: Negative. Gastrointestinal: Negative. Endocrine: Negative. Genitourinary: Negative. Musculoskeletal: Negative. Skin: Negative. Allergic/Immunologic: Negative. Neurological: Negative. Hematological: Negative. Psychiatric/Behavioral : Negative. Physical Exam Vitals: BP 130/70 (BP Location: Left arm, Patient Position: Sitting, BP Cuff Size: Large adult) Pulse (!) 47 Wt 184 lb (83.5 kg) Constitutional: General: Not in acute distress. Appearance: Normal appearance. Not toxic-appearing. Ear, nose, mouth: Bilateral external ear and nose normal. Nose: Nose normal. Mouth: Appearance normal, no bleeding, moist mucus membranes Eyes: General: No scleral icterus. No discharge from bilateral eyes Extraocular Movements: Extraocular movements intact. Pupils equal and reactive bilaterally Cardiovascular: Heart: Regular rhythm but very slow. Normal heart sounds. Vascular: No carotid bruit. Edema: no edema in bilateral lower extremities Right leg a little more swollen Pulmonary: Effort: Pulmonary effort is normal. No respiratory distress. Breath sounds: Normal breath sounds. No wheezing. Chest wall: No tenderness. Abdominal: Appearance: Not distended Palpations: There is no abdominal tenderness, no guarding. Musculoskeletal: Bilateral upper and lower extremities: Normal range of motion, no deformity Head: Normocephalic and atraumatic. Neck: Normal range of motion and neck supple. No muscular tenderness. Lymphadenopathy: Cervical: No cervical adenopathy. Skin: General: Skin is warm and dry. Coloration: Skin is not jaundiced. Neurological: General: No focal deficit present. Cranial Nerves: No obvious cranial nerve deficit. Psychiatric: Mood and Affect: Mood normal. Thought Content: Thought content normal. Patient has good judgement and insight Mental Status: Alert and oriented to place, person, and time. Labs No results found for: WBC, HGB, PLT, NA, K, CREATININE Imaging PET/CT 12/07/24 CT Low Dose Lung Screening 11/17/24 CT Low Dose Lung Screening more content not included)... Normal [facility] Pulmonary Visit Reporton Pulmonary Visit Report [facility] Pulmonary Medicine of [address] [place] [address] OFFICE VISIT Date of Service: 12/10/24 MR#: [id number] Acct: [id number] Name: RICH JAMES I Rep #: [id number] : 1955 Provider: ANA Motta Age/Sex: 68/M Location: [facility] Status: Signed Assessment and Plan Assessment and Plan (1) Right upper lobe pulmonary nodule: Status: Acute Comment: 1.6X1.5X1.3X2.3cm Plan: PET positive right apical nodule. I spoke with Dr. Coppola at [facility]. He agrees that the patient is appropriate for consultation and evaluation. Referring to cardiothoracic surgery for evaluation and treatment. The patient will likely have his consultation next week. Follow-up in 3 months. (2) Stage 1 mild COPD by GOLD classification: Status: Chronic Comment: FEV1 88% Plan: Stable, he does not appear to be an exacerbation of COPD today. No need for prednisone or antibiotic. Continue current maintenance medication, symptomatically controlled with Breztri. No additional testing at this time. Contact the office for any new or worsening symptoms. An acute visit and typically be arranged within 1-2 days. Follow-up in 3 months. (3) FIFI (obstructive sleep apnea): Status: Chronic Comment: AHI 14.9 treated with CPAP 12 cm of water with residual AHI of 0.3 Plan: Not addressed at this office visit. (4) Smoking greater than 40 pack years: Status: Chronic Plan: Highly encourage complete smoking cessation. He has been using Wellbutrin as prescribed. Orders: Referrals Cardiovascular/Thoraci c Surgery R91.1 - Solitary pulmonary nodule Plan Details Additional Comments: This note was generated with [employer] dictation software. It may contain incorrect words, spelling, and punctuation that were not noted in checking the note before signing. Follow Up: 3 Months HPI 3 wk fu Chief Complaint: Test result HPI Comments Details: This patient presents to the office today to follow-up on some test results. He is ambulatory and currently on room air. He is accompanied today by his . He has not been seen in the ED or urgent care for any respiratory illnesses since his last office visit. He has not required any antibiotics or prednisone for any breathing problems. He is compliant with the use of Breztri 2 puffs twice daily. He is rinsing his mouth out after each use. He denies any side effects, such as thrush. He is also utilizing Claritin daily. He has not recently needed to utilize his albuterol rescue inhaler. He is currently smoking 1 pack/day. He denies any difficulty with shortness of breath. He has a daily cough productive of clear-colored sputum, denies any hemoptysis. He is not had any wheezing, chest tightness, chest pain or palpitations. He also denies any fever, chills or body aches. He wakes up feeling rested and refreshed. He is not having difficulty with dry mouth or nocturia. He is not requiring naps and is not falling asleep unintentionally. Test results personally reviewed patient: PET CT completed on December 07, 2024. Hypermetabolic right apical pulmonary nodule, compatible with pulmonary neoplasm. No evidence of metastatic disease. Intake Vital Signs 12/02/24 07:27 12/10/24 07:56 Height 5 ft 10 in 5 ft 10 in Weight: 186 lb 189 lb BMI 26.6 27.1 BP 144/82 H 120/73 Blood Pressure Location Lt brachial Lt brachial Position Sitting Sitting Respiration 18 18 Pulse 52 L 45 L Pulse Source Monitor NIBP Temp 97.5 F L 97.4 F L Temperature Source Temporal Artery Temporal Artery Pulse Oximetry (%) 99 97 Oxygen Delivery Method room air room air Intake Visit Reasons: 3 wk fu Chief Complaint: no acute concerns Is patient in pain?: No Allergies No Known Allergies Allergy (Verified 12/10/24 08:49) Medications ???Medication ???Instructions ???Recorded ???Confirmed ???Type fluticasone propionate 50 1 spray intranasal DAILY 02/29/20 12/10/24 History mcg/actuation nasal spray,suspension (Flonase Allergy Relief) glucosamine-chondroit- vit C-Mn 500 1 cap PO DAILY 02/29/20 12/10/24 History mg-400 mg capsule (Glucosamine Chondroitin Maximum Strength) famotidine 20 mg tablet 20 mg PO DAILY #90 tabs 11/28/21 0 12/10/24 Rx loratadine 10 mg tablet (Claritin) 10 mg PO DAILY 06/12/22 12/10/24 History metoprolol succinate 25 mg 25 mg PO DAILY #90 tabs 01/13/24 0 12/10/24 Rx tablet,extended release 24 hr warfarin 5 mg tablet 5 mg PO .COMPLEX #180 tabs 4 12/10/24 Rx simvastatin 20 mg tablet 20 mg PO QHS #90 tabs 06/29/24 Rx budesonide 160 mcg-glycopyr 9 2 inh inhalation BID #3 ea 5 12/10/24 Rx mcg-formot 4.8 mcg/actuation HFA inhaler (Breztri Aerosphere) bupropion HCl (smoking deter) 150 150 mg PO (more content not included)... Normal [facility] Positron emission tomography scan reportOrdered By: Elizabeth Cintron on 12-08-2024 PT Unspecified body region [facility] Imaging Services [address] [place], [place] [address] PET/CT Tumor Base -Thigh Init MR#: [id number] Acct: [id number] Name: RICH JAMES I Rep #: [id number] : 1955 M 68 From: Juliana Cintron MD PCP: Dr. Marion Feng MD Status: REG CLI Study:PET/CT Tumor Base -Thigh Init Date of E xam: 12/07/24 Exam# [id number] Ordering Dr: Giovani Motta NP MANA[facility] OF [facility]PITAL[facility]C EXAM: PET/CT Study CLINICAL HISTORY: 68 y/o M with ABNORMAL FINDINGS IN LUNG FIELD COMPARISON: Low-dose CT lung screening 11/17/2024. TECHNIQUE: PROCEDURE: Following the intravenous administration of radionucleotide, image acquisition on a dedicated PET/CT unit was performed at one hour post injection. A preliminary CT study encompassing the Skull base, neck, chest, abdomen, pelvis, and proximal thighs was performed for purposes of attenuation correction and anatomic localization. The patient's blood glucose level was 86 mg/dL (allowable range: 50-180 mg/dL). RADIOPHARMACEUTICAL: 13.9 mCi 18F-FDG (Fluorodeoxyglucose F18) IV was injected into the patient. FINDINGS: Physiologic uptake: There may be expected metabolic uptake within the brain, tongue and floor of the mouth and larynx/vocal cords, heart, flor (many normal individuals have hilar uptake in less than 3 nodes with mildly avid hilar nodes less than 2.7 SUV), liver and spleen, system, and GI tract and symmetric muscle uptake. FDG AVID AND NON-AVID LESIONS. Reported avid SUV values (g/mL*) are maximum SUV. Average liver SUV: 2.5 NECK: No suspicious hypermetabolic lesions. CHEST: Unchanged size and morphology of the spiculated right apical pulmonary nodule, demonstrating a maximum SUV of 4.4. No hypermetabolic lymphadenopathy. ABDOMEN: No suspicious hypermetabolic lesions. PELVIS: No suspicious hypermetabolic lesions. Additional CT findings: Moderate coronary artery and thoracic aortic calcifications. Ectasia of the infrarenal abdominal aorta. Mild aortoiliac calcifications. Moderate emphysema and scattered areas of scarring. Tiny hepatic hypodensities, likely cysts but too small to characterize. Right total hip arthroplasty. Large left inguinal hernia containing nondilated large bowel loops. Thoracolumbar spondylosis. PET/PET/CT Tumor Base -Thigh Init IMPRESSION: Hypermetabolic right apical pulmonary nodule, compatible with pulmonary neoplasm. No evidence of metastatic disease. Please note the low-dose CT scan was performed to facilitate PET image reconstruction and anatomic localization and does not replace a diagnostic CT. Any diagnostic CT requested and performed at the time of the PET will be reported separately. Reading Location: [id number] CC: ANA Motta; Dr. Marion Feng MD ~ Compliance Paralegal: Signed [facility] PET/CT Tumor Base -Thigh Ini ton 12-07-2024 PET/CT Tumor Base -Thigh Init [facility] Imaging Services [address] [place] [address] PET/CT Tumor Base -Thigh Init MR#: [id number] Acct: [id number] Name: RICH JAMES I Rep #: [id number] : 1955 M 68 From: Elizabeth Lundy nd, MD PCP: Dr. Marion Feng MD Status: REG CLI Study: PET/CT Tumor Base -Thigh Init Date of Exam: Exam# [id number] Ordering Dr: Kylie Motta NP MANAGER OF [facility]OSPITAL-C EXAM: PET/CT Study CLINICAL HISTORY: 68 y/o M with ABNORMAL FINDINGS IN LUNG FIELD COMPARISON: Low-dose CT lung screening 11/17/2024. TECHNIQUE: PROCEDURE: Following the intravenous administration of radionucleotide, image acquisition on a dedicated PET/CT unit was performed at one hour post injection. A preliminary CT study encompassing the Skull base, neck, chest, abdomen, pelvis, and proximal thighs was performed for purposes of attenuation correction and anatomic localization. The patient's blood glucose level was 86 mg/dL (allowable range: 50-180 mg/dL). RADIOPHARMACEUTICAL: 13.9 mCi 18F-FDG (Fluorodeoxyglucose F18) IV was injected into the patient. FINDINGS: Physiologic uptake: There may be expected metabolic uptake within the brain, tongue and floor of the mouth and larynx/vocal cords, heart, flor (many normal individuals have hilar uptake in less than 3 nodes with mildly avid hilar nodes less than 2.7 SUV), liver and spleen, system, and GI tract and symmetric muscle uptake. FDG AVID AND NON-AVID LESIONS. Reported avid SUV values (g/mL*) are maximum SUV. Average liver SUV: 2.5 NECK: No suspicious hypermetabolic lesions. CHEST: Unchanged size and morphology of the spiculated right apical pulmonary nodule, demonstrating a maximum SUV of 4.4. No hypermetabolic lymphadenopathy. ABDOMEN: No suspicious hypermetabolic lesions. PELVIS: No suspicious hypermetabolic lesions. Additional CT findings: Moderate coronary artery and thoracic aortic calcifications. Ectasia of the infrarenal abdominal aorta. Mild aortoiliac calcifications. Moderate emphysema and scattered areas of scarring. Tiny hepatic hypodensities, likely cysts but too small to characterize. Right total hip arthroplasty. Large left inguinal hernia containing nondilated large bowel loops. Thoracolumbar spondylosis. PET/PET/CT Tumor Base -Thigh Init IMPRESSION: Hypermetabolic right apical pulmonary nodule, compatible with pulmonary neoplasm. No evidence of metastatic disease. Please note the low-dose CT scan was performed to facilitate PET image reconstruction and anatomic localization and does not replace a diagnostic CT. Any diagnostic CT requested and performed at the time of the PET will be reported separately. Reading Location: [id number] CC: ANA Motta; Dr. Marion Feng MD Compliance Paralegal: Signed Normal [facility] Pulmonary Visit Reporton Pulmonary Visit Report [facility] Pulmonary Medicine of [address] [place] [address] OFFICE VISIT Date of Service: 12/02/24 MR#: [id number] Acct: [id number] Name: RICH JAMES I Rep #: [id number] : 1955 Provider: ANA Motta Age/Sex: 68/M Location: [facility] [place] Status: Signed Assessment and Plan Assessment and Plan (1) Right upper lobe pulmonary nodule: Status: Acute Comment: 1.6X1.5X1.3X2.3cm Plan: New. Radiology interpretation suggest that it is difficult to measure. I believe the next best course of action would be to obtain a PET scan. The patient only has mild COPD, therefore surgical intervention is quite possible if this is PET positive. PET scan ordered, return to the office in 3 weeks to discuss test results. (2) Stage 1 mild COPD by GOLD classification: Status: Chronic Comment: FEV1 88% Plan: Stable, he does not appear to be an exacerbation of COPD today. No need for prednisone or antibiotic. Continue current maintenance medication, symptomatically controlled with Breztri. No additional testing at this time. Contact the office for any new or worsening symptoms. An acute visit and typically be arranged within 1-2 days. Follow-up in 3 weeks. (3) FIFI (obstructive sleep apnea): Status: Chronic Comment: AHI 14.9 treated with CPAP 12 cm of water with residual AHI of 0.3 Plan: He is using and benefiting from Pap therapy. No indication for titration study at this time. Contact the office for any new or worsening symptoms in the meantime. (4) Smoking greater than 40 pack years: Status: Chronic Plan: Complicates exam, plan, care and prognosis. Continue to encourage complete smoking cessation. Referral placed for the outpatient smoking cessation clinic. Placing him on Wellbutrin for smoking cessation. He was given printed instructions on how to use Wellbutrin and when to quit. Orders: Orders PET/CT Tumor Base -Thigh Init Today R91.1 - Solitary pulmonary nodule, R91.8 - Other nonspecific abnormal finding of lung field OP Smoking Cessation -AMB Only Today F17.210 - Nicotine dependence, cigarettes, uncomplicated Medications: New bupropion HCl (smoking deter) 150 mg PO BID 60 tabs 1RF F17.210 - Nicotine dependence, cigarettes, uncomplicated Refilled cfukqgokuv-ltuormev-ov rmoterol 160-9-4.8 mcg/actuation (Breztri Aerosphere) 2 inhalations inhalation BID 3 ea 3RF Plan Details Additional Comments: This note was generated with [employer] software. It may contain incorrect words, spelling, and punctuation that were not noted in checking the note before signing. Follow Up: 3 Weeks (CSM LMR or DMB) HPI 9 M FU Chief Complaint: Test results HPI Comments Details: This patient presents to the office today to follow-up on some test results. He is ambulatory and currently on room air. He has not been seen in the ED or urgent care for any respiratory illnesses since his last office visit. He has not required any antibiotics or prednisone for any breathing problems. He is compliant with the use of Breztri 2 puffs twice daily. He is rinsing his mouth out after each use. He denies any side effects, such as thrush. He is also utilizing Claritin daily. He has not recently needed to utilize his albuterol rescue inhaler. He is currently smoking less than 1 pack/day. He denies any difficulty with shortness of breath. He has a daily cough productive of clear-colored sputum, denies any hemoptysis. He is not had any wheezing, chest tightness, chest pain or palp itations. He also denies any fever, chills or body aches. He wakes up feeling rested and refreshed. He is not having difficulty with dry mouth or nocturia. He is not requiring naps and is not falling asleep unintentionally. Test results personally reviewed patient: Pulmonary function test completed on October 19, 2024. Impression is a reversible mild large airway obstructive dilatory defect with symmetric reduction diffusing capacity. FEV1 88% of predicted. Low-dose CT lung screening completed on November 17, 2024. Mild emphysema noted. New irregular mostly solid nodule in the right lung apex is difficult to discretely measure, roughly 16 x 15 mm cranially and 13 x 23 mm inferiorly with adjacent mild stranding granuloma. Fissural likely intrapulmonary lymph node on the right. Compliance report for the past 30 days shows 100% compliance with average use of 6 hours and 37 minutes per night. Current setting is CPAP 12 cmH2O with residual AHI 0.3 events per hour. Leaks do appear to be somewhat problematic. Intake Vital Signs 03/15/24 07:51 04/19/24 08:34 12/02/24 07:27 Height 5 ft 10 in 5 ft 10 in 5 ft 10 in Weight: 186 lb BMI 26.6 BP 144/82 H Blood Pressure Location Lt brachial Position Sitting Respiration 18 Pulse 52 L Pulse (more content not included)... Normal [facility] normalized rat io (INR) measurement by fingerstickOrdered By: Jose Hylton on 11-17-2024 INR Coag (BldC) [Relative time] 2.5 [facility] Comment on above: Critical Value > 4.[address] Lung Screeningon 11-17-[address] Lung Screening [facility] Imaging Services [address] [place], [place] [id number] Low Dose CT Lung Screening MR#: [id number] Acct: [id number] Name: RICH JAMES I Rep #: [id number] : 1955 M 68 From: Bjorn Castro MD PCP: Dr. Marion Feng MD Status: REG CLI Study: Low Dose CT Lung Screening Date of Exam: 11/17 Exam# [id number] Ordering Dr: Kylie Motta MANAGER OF HOSPITAL MANAGER OF HOSPITAL-C PROCEDURE: LOW DOSE CT LUNG SCREENING (CTLUNGSCREEN), 11/17/2024 REASON FOR EXAM: SMOKER TECHNIQUE: Low dose CT (LDCT) chest was performed without contrast. Multiplanar reformats were generated. RADIATION DOSE SUMMARY: CTDlvol: 2.39 mGy DLP: 83.69 mGycm One or more dose reduction techniques were used (e.g., Automated exposure control, adjustment of the mA and/or kV according to patient size, use of iterative reconstruction technique). COMPARISON: 11/17/2023 FINDINGS: Note that evaluation of the vasculature, flor, and soft tissues is limited in the absence of IV contrast. Heart/pericardium:Mode rate multivessel coronary atherosclerosis and/or stents. Trace aortic annular calcification. Aorta: Trace calcific atherosclerosis.. Pulmonary arteries: Unremarkable. Lymph nodes: Unremarkable. Lungs/pleura: Mild emphysema. New irregular mostly solid nodule in the RIGHT lung apex is difficult to discretely measure, roughly 16 x 15 mm cranially and 13 x 23 mm inferiorly, with adjacent mild stranding (series 2, images 60 and 64). Granuloma. Fissural likely intrapulmonary lymph node on the RIGHT. Airways: Unremarkable. Chest wall: Unremarkable. Upper abdomen: Small hiatal hernia.. Musculoskeletal: Mild spondylosis.. CT/Low Dose CT Lung Screening IMPRESSION: 1. New irregular 18 mm average axial diameter irregular RIGHT apical nodule with adjacent ground- glass. Although technically Lung-RADS 4BS as below, this may be infectious/inflammator y. Recommend CT chest in 1 month. Additional management options as per the below. 2. Lung-RADS category: 4BS (very suspicious, >15% chance of malignancy); recommend ct chest with contrast, PET/CT, and/or tissue sampling if solid component ?8 mm. For new large nodules that develop on an annual repeat screening CT, a 1 month LDCT may be recommended to address potentially infectious or inflammatory conditions. 3. Other clinically significant or potentially significant non-lung cancer findings: Coronary arterial calcification moderate or severe. 4. Additional description as above. Recommendations per [employer]. Lung CT Screening Reporting and Data System (Lung-RADS) v. 2021 Reading Location: [facility] CC: ANA Motta; Dr. Marion Feng MD Compliance Paralegal: Signed Normal [facility] Protime w/INR Fingerstickon 11-17-2024 INR Coag (PPP) [Relative time] 2.5 {INR} Normal [facility] Comment on above: Result Comment: Crit ical Value > 4.0 Performed By: #### L [id number] #### [facility] [address] [place], [place], [id number] Protime Coagsen 26.9 SEC High 11.7-14.9 [facility] Comment on above: Performed By: #### L [id number] #### [facility] [address] [place], [address] Whole blood prothrombin time Ordered By: Jose Hylton on 11-17-2024 PT Coag (Bld) [Time] 26.9 s High 11.7-14.9 [facility] INR Coag (BldC) [Relative ti me]Ordered By: Jose Hylton on 10-19-2024 INR Coag (Bld) [Relative time] 2.2 {INR} [facility] Comment on above: Critical Value > 4.0 PT Coag (Bld) [Time]Ordered By: Jose Hylton on 10-19-2024 Bedside Prothrombin Time 24.3 SEC High 11.7-14.9 [facility] Protime w/INR Fingerstickon 10-19-2024 INR Coag (PPP) [Relative time] 2.2 {INR} Normal [facility] Comment on above: Result Comment: Crit ical Value > 4.0 Performed By: #### L [id number] #### [facility] [address] [place], [address] Protime Coagsen 24.3 SEC High 11.7-14.9 [facility] Comment on above: Performed By: #### L [id number] #### [facility] [address] [place], [address] INR Coag (BldC) [Relative ti me]Ordered By: Jose Hylton on 09-02-2024 INR Coag (Bld) [Relative time] 2.9 {INR} [facility] Comment on above: Critical Value > 4.0 International normalized rat io (INR) measurement by fingerstickOrdered By: Jose Hylton on 09-02-2024 INR Coag (BldC) [Relative time] 2.9 [facility] Comment on above: Critical Value > 4.0 PT Coag (Bld) [Time]Ordered By: Jose Hylton on 09-02-2024 Bedside Prothrombin Time 30.5 SEC High 11.7-14.9 [facility] Protime w/INR Fingerstickon 09-02-2024 INR Coag (PPP) [Relative time] 2.9 {INR} Normal [facility] Comment on above: Result Comment: Crit ical Value > 4.0 Performed By: #### L [id number] #### [facility] [address] [place], [address] Protime Coagsen 30.5 SEC High 11.7-14.9 [facility] Comment on above: Performed By: #### L [id number] #### [facility] [address] [place], [place], [id number] Whole blood prothrombin time Ordered By: [place] Hylton on 09-02-2024 PT Coag (Bld) [Time] 30.5 s High 11.7-14.9 [facility] INR Coag (BldC) [Relative ti me]Ordered By: Jose Warner on 07-15-2024 INR Coag (Bld) [Relative time] 3.2 {INR} [facility] Comment on above: Critical Value > 4.0 PT Coag (Bld) [Time]Ordered By: [place] Hylton on 07-15-2024 Bedside Prothrombin Time 32.7 SEC High 11.7-14.9 [facility] Protime w/INR Fingerstickon 07-15-2024 INR Coag (PPP) [Relative time] 3.2 {INR} Normal [facility] Comment on above: Result Comment: Crit ical Value > 4.0 Performed By: #### L [id number] #### [facility] [address] [place], [place], [id number] Protime Coagsen 32.7 SEC High 11.7-14.9 [facility] Comment on above: Performed By: #### L [id number] #### [facility] [address] [place], [place], [id number] Cardiology Visit Reporton Cardiology Visit Report [facility] [address] [place], [place] [address] OFFICE VISIT Date of Service: 04/19/24 MR#: [id number] Acct: [id number] Name: RICH JAMES I Rep #: [id number] : 1955 Provider: ANA brown Age/Sex: 68/M Location[place] [facility] [place] Status: Signed HPI HPI History of Present Illness Details: Pleasant 68-year-old man with a history of protein C deficiency chronic lower extremity DVT in 2004. He also has a history of hyperlipidemia and previous tobacco abuse. He was seen in the office and was noted to be in atrial fibrillation with a rapid ventricular response rate. He had previously been on anticoagulation and he was started on a beta-donna. He underwent an echocardiogram on 03/13/2020 that showed an ejection fraction of 60% and mildly enlarged left atrium. His stress test on 03/13/2020 was negative for ischemia. His 24-hour Holter monitor on 03/01/2020 showed atrial fibrillation at approximately 100% of total scan. His average heart rate was elevated and his beta- donna dose was changed. He underwent flecainide assisted cardioversion on 06/04/2022. He reverted back to atrial fibrillation. He proceeded with ablation on 07/26/2022 with [facility]. He tells me that he is feeling remarkably well since then. He denies chest, arm, jaw, or neck discomfort. He denies palpitations. He states bilateral lower extremity edema at the end of the day. He denies claudication. He denies shortness of breath with activity, shortness of breath at rest, orthopnea, or PND. He denies chronic cough. He denies significant, sudden weight gain. He denies lightheadedness, dizziness, near-syncope, or syncope. He denies blood in urine, blood in stool, or epistaxis. He denies fever with chills. He denies myalgia. He denies fatigue. His exercise level has remained stable. Intake Vital Signs 04/03/23 10:02 03/15/24 07:51 04/19/24 08:34 Height 5 ft 10 in 5 ft 10 in 5 ft 10 in Weight: 194 lb BMI 27.8 BP 131/78 H Blood Pressure Location Lt brachial Position Sitting Respiration 18 Pulse 48 L Pulse Source Monitor Pulse Oximetry (%) 98 Oxygen Delivery Method room air Intake Visit Reasons: 1 Y FU Color Technician Required: No Accompanied by: Self Is patient in pain?: No Allergies No Known Allergies Allergy (Verified 04/19/24 08:36) Medications ???Medication ???Instructions ???Recorded ???Confirmed ???Type fluticasone propionate 50 1 spray intranasal DAILY 02/29/20 04/19/24 History mcg/actuation nasal spray,suspension (Flonase Allergy Relief) glucosamine-chondroit- vit C-Mn 500 1 cap PO DAILY 02/29/20 04/19/24 History mg-400 mg capsule (Glucosamine Chondroitin Maximum Strength) famotidine 20 mg tablet 20 mg PO DAILY #90 tabs 11/28/21 04/19/24 Rx loratadine 10 mg tablet (Claritin) 10 mg PO DAILY 06/12/22 04/19/24 History warfarin 5 mg tablet 5 mg PO .COMPLEX #180 tabs 04/03/23 04/19/24 Rx simvastatin 20 mg tablet 20 mg PO QHS #90 tabs 06/30/23 04/19/24 Rx metoprolol succinate 25 mg 25 mg PO DAILY #90 tabs 01/13/24 04/19/24 Rx tablet,extended release 24 hr budesonide 160 mcg-glycopyr 9 2 inh inhalation BID #3 ea 03/15/24 04/19/24 Rx mcg-formot 4.8 mcg/actuation HFA inhaler ([employer]) Have you fallen in the past year?: No Nurse's Note: Pt does not have a list of medications but states nothing has changed 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) New onset atrial fibrillation (02/18/20) Surgical History S/P ablation of atrial fibrillation History of shoulder surgery History of repair of right rotator cuff History of carpal tunnel release History of total hip arthroplasty Family History Father Diabetes Social History Smoking Status: Heavy Smoker (>10/day) alcohol intake: current alcohol intake frequency: a few times a month Alcohol type: beer and hard liquor substance use type: does not use caffeine: Yes Type: coffee Number of servings: 10 and tea Number of servings: 2 ROS Const Const: Negative for fatigue or weakness ENT ENT: Negative for dizziness or balance problems Cardio Chest Pain: No Palpitations: No Barney (more content not included)... Normal [facility] Prothrombin Time w/INRon INR Normal [facility] Comment on above: Order Comment: Comme nts: THIS IS A STANDING ORDER Result Comment: PER DR OFFICE-DID FINGERSTICK Performed By: #### L [id number] #### [facility] [address] [place], [address] PROTIME Normal 11.7-14.9 [facility] Comment on above: Order Comment: Comme nts: THIS IS A STANDING ORDER Result Comment: PER DR OFFICE-DID FINGERSTICK Performed By: #### L 300.3900 #### [facility] [address] [place], [address] Protime w/INR Fingerstickon 04-19-2024 INR Coag (PPP) [Relative time] 3.5 {INR} Normal [facility] Comment on above: Result Comment: Crit ical Value > 4.0 Performed By: #### L [id number] #### [facility] [address] [place], [address] Protime Coagsen 34.2 SEC High 11.7-14.9 [facility] Comment on above: Performed By: #### L [id number] #### [facility] [address] [place], [address] Protime w/INR Fingerstickon 03-15-2024 INR Coag (PPP) [Relative time] 3.1 {INR} Normal [facility] Comment on above: Result Comment: Crit ical Value > 4.0 Performed By: #### L [id number] #### [facility] [address] [place], [address] Protime Coagsen 31.0 SEC High 11.7-14.9 [facility] Comment on above: Performed By: #### [id number] #### [facility] [address] [place], [address] Pulmonary Visit Reporton Pulmonary Visit Report [facility] [address] [place] [address] OFFICE VISIT Date of Service: 03/15/24 MR#: [id number] Acct: [id number] Name: RICH JAMES I Rep #: [id number] : 1955 Provider: ANA Motta Age/Sex: 68/M Location: [facility] [place] Status: Signed with Addenda ADDENDUM by Nilsa Amaya on 07/20/24 at 1142 Office Procedure Documentation entered by Nilsa Amaya 07/20/24 11:42: Smoking Cessation Smoking Cessation Highly encourage complete smoking cessation. I did describe that as COPD progresses at some point he would require supplemental oxygen. The patient conveys understanding. He does state I really should quit smoking. He is appropriate for repeat LDCT which is due in October 2024. Ordered accordingly. Follow-up in the office in November to discuss test results. Time Spent 3-10 minutes: Yes Date cc: Dr. Marion Feng MD * Signed Assessment and Plan Assessment and Plan (1) Stage 1 mild COPD by GOLD classification: Status: Chronic Comment: FEV1 88% Plan: Deteriorated. The patient does have seasonal episodes in which his shortness of breath progresses. For this reason I am going to escalate therapy. Placing him on triple therapy. Discontinuing Bevespi and placing him on Breztri. The patient has been instructed to rinse his mouth out after each use. He conveys understanding. He has also been instructed to contact the office if he has any medication side effects. He is agreeable with this plan. Repeat pulmonary function test prior to returning to the office in November 2024. Contact the office with any new or worsening symptoms in the meantime. (2) FIFI (obstructive sleep apnea): Status: Chronic Comment: AHI 14.9 treated with CPAP 12 cm of water with residual AHI of 0.3 Plan: He is using and benefiting from Pap therapy. No indication for titration study at this time. Contact the office for any new or worsening symptoms in the meantime. Follow-up in November 2024. (3) Smoking greater than 40 pack years: Status: Chronic Plan: Highly encourage complete smoking cessation. I did describe that as COPD progresses at some point he would require supplemental oxygen. The patient conveys understanding. He does state I really should quit smoking. He is appropriate for repeat LDCT which is due in October 2024. Ordered accordingly. Follow-up in the office in November to discuss test results. Orders: Orders Low Dose CT Lung Screening 10/19/24 F17.200 - Nicotine dependence, unspecified, uncomplicated, F17.210 - Nicotine dependence, cigarettes, uncomplicated Pulmonary Function Test (Comp) Today J44.9 - Chronic obstructive pulmonary disease, unspecified Medications: New iaqxtpcimm-jfbcxsce-bu rmoterol 160-9-4.8 mcg/actuation (Breztri Aerosphere) 2 inhalations inhalation BID 3 ea 3RF Discontinued glycopyrrolate-formote rol 9-4.8 mcg (Bevespi Aerosphere) Discontinued Reason: Order Changed 2 inhalations inhalation BID 1 inh 11RF Plan Details Follow Up: 11/18/24 ([facility]) HPI 1 Y FU Chief Complaint: Routine follow-up HPI Comments Details: This patient presents to the office today to follow-up on some test results. He is ambulatory and currently on room air. He has not been seen in the ED or urgent care for any respiratory illnesses since his last office visit. He has not required any antibiotics or prednisone for any breathing problems. He is compliant with the use of bevespi 2 puffs twice daily. He is also utilizing Claritin and Flonase daily. He has not recently needed to utilize his albuterol rescue inhaler. He continues to smoke cigarettes. He is currently smoking 1/2 to 1 pack/day. He admits that he is not very interested in quitting at this time. He states that in the past he has quit for a few months at a time or has cut himself down to half a pack per day. He has shortness of breath on exertion only. He experiences a cough when he is exposed to dust. 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 Therefore, his job exposes him to seasonal triggers. He is not had any wheezing, chest tightness, chest pain or palpitations. He also denies any fever, chills or body aches. He reports compliance with PAP therapy. He occasionally has some difficulty with mask leaks, as he loosens the bottom. He wakes up feeling rested and refreshed. He is not having difficulty with dry mouth or nocturia. He is not requiring naps and is not falling asleep unintentionally. Test results personally reviewed patient: Low-dose CT lung screening completed on November 17, 2023. Mild emphysema with biapical scarring. Unchanged 10 mm partially calcified right lower lobe juxtapleural nodule or plaque. Calcified right lower lobe granuloma along the fissure (more content not included)... Normal [facility] Capillary blood internationa l normalized ratio (INR)Ordered By: Jose Hylton on 11-17-2023 INR Coag (BldC) [Relative time] 2.6 [facility] Comment on above: Critical Value > 4.0 Whole blood prothrombin time Ordered By: Jose Hylton on 11-17-2023 PT Coag (Bld) [Time] 26.3 s 11.7-14.9 [facility] Capillary blood internationa l normalized ratio (INR)Ordered By: Jose Hylton on 10-03-2023 INR Coag (BldC) [Relative time] 3.2 [facility] Comment on above: Critical Value > 4.0 Whole blood prothrombin time Ordered By: Jose Hylton on 10-03-2023 PT Coag (Bld) [Time] 31.6 s 11.7-14.9 [facility] Basophil percentageOrdered B y: Marion Feng on 08-25-2023 Bilirubin [Mass/Vol] 0.90 mg/dL 0.20-1.00 [facility] Comment on above: For patients on eltr ombopag therapy, use of Dimension [place] TBIL is not recommended. Chloride [Moles/Vol] 109 mmol/L 98-107 [facility] Cholesterol [Mass/Vol] 160 mg/dL <200 [facility] Comment on above: <200 mg/dL Desirable 200-240 mg/dL Borderline >240 mg/dL High Risk Glucose [Mass/Vol] 113 mg/dL 74-106 [facility] Comment on above: Fasting Glucose resu lt from 100 to 125 mg/dL suggests IMPAIRED HOMEOSTASIS per A.D.A. criteria. Potassium [Moles/Vol] 4.4 mmol/L 3.5-5.1 [facility] Protein [Mass/Vol] 7.6 g/dL 6.4-8.2 [facility] Sodium [Moles/Vol] 140 mmol/L 136-145 [facility] Triglyceride [Mass/Vol] 178 mg/dL <199 [facility] Comment on above: The drugs N-Acetylcy steine and Metamizole may falsely depress this assay.Serum Triglycerides Reference Interval Normal <150 mg/dL Borderline high 150 - 199 mg/dL High 200 - 499 mg/dL Very High > or = 500 mg/dL Laboratory - Chemistry and C hemistry - challengeOrdered By: Marion Feng on 08-25-2023 Albumin/Globulin [Mass ratio] 1.1 {ratio} 0.9-2.4 [facility] ALP [Catalytic activity/Vol] 51 U/L 45-117 [facility] ALT [Catalytic activity/Vol] 37 U/L 16-61 [facility] Cholesterol in HDL [Mass/Vol] 42 mg/dL >40 [facility] Comment on above: The drugs N-Acetylcy steine and Metamizole may falsely depress this assay. Reference Range HDL <40 mg/dL Low HDL Cholesterol HDL >or= 60 mg/dL High HDL Cholesterol Cholesterol in LDL [Mass/Vol] 82 mg/dL 0-130 [facility] CO2 [Moles/Vol] 29.0 mmol/L 21.0-32.0 [facility] Globulin (S) [Mass/Vol] 3.7 g/dL 2.2-4.2 [facility] Prostate specific Ag IA [Mass/Vol] 0.65 ng/mL 0.00-4.00 [facility] Comment on above: This test was perfor med using the TPSA assay method for the[facility] chemistry system. Values obtained with differentassay methods cannot be used interchangably.When changing PSA assays in the course of monitoring apatient, additional sequential testing should be carriedout to confirm baseline values. Urea nitrogen/Creatinine [Mass ratio] 15.8 mg/mg 10-20 [facility] No Panel InformationOrdered By: Marion Feng on 08-25-2023 Estimated GFR (MDRD) Amer 78 mL/min >60 [facility] Comment on above: GFR Calc Estimated GFR (MDRD) Non-Af Amer 64 mL/min >60 [facility] Comment on above: Non- GFR Calc VLDL Cholesterol 36 mg/dL 5-40 [facility] Serum or plasma calcium laura urement (mass/volume)Ordered By: aMrion Feng on 08-25-2023 Calcium [Mass/Vol] 9.4 mg/dL 8.5-10.1 [facility] Serum or plasma creatinine m easurement (mass/volume)Ordered By: Marion Feng on 08-25-2023 Creatinine [Mass/Vol] 1.20 mg/dL 0.70-1.30 [facility] Comment on above: The validity of the calculated GFR & GFRAA in patients over 70 years has not been determined. Clinical correlation is essential. Serum or plasma urea nitroge n measurement (mass/volume)Ordered By: Marion Feng on 08-25-2023 Urea nitrogen [Mass/Vol] 19 mg/dL 7-18 [facility] Thin prep Papanicolaou smear with manual screeningOrdered By: Marion Feng on 08-25-2023 Thin prep Papanicolaou smear with manual screening 3.9 g/dL 3.2-5.0 [facility] Thin prep Papanicolaou smear with manual screening 30 U/L 15-37 [facility] Thin prep Papanicolaou smear with manual screening 2 5-15 [facility] - CoagulationOrde red By: Jose Hylton on 07-22-2023 INR Coag (Bld) [Relative time] 2.3 {INR} [facility] Comment on above: Critical Value > 4.0 Whole blood prothrombin time Ordered By: Jose Hylton on 07-22-2023 PT Coag (Bld) [Time] 24.9 s 11.7-14.9 [facility] - CoagulationOrde red By: Jose Hylton on 05-23-2023 INR Coag (Bld) [Relative time] 2.2 {INR} [facility] Comment on above: Critical Value > 4.0 Whole blood prothrombin time Ordered By: Jose Hylton on 05-23-2023 PT Coag (Bld) [Time] 24.4 s 11.7-14.9 [facility] CNOVon 05-05-2023 CNOV Office Visit (AGCARDPOB) RICH JAMES I ([id number]) 1955 M NFR Date Time Provider Department 05/05/23 8:00 AM AYLIN MATHEW AGCARDPOPeng During your visit today, we recorded the following information about you: Pulse Blood pressure Weight Height 52/minute 115/66 90.7 kg 1.778 m Aylin Mathew MD 05/05/2023 8:38 AM Signed [facility] [facility] SECTION OF CARDIAC PACING and ELECTROPHYSIOLOGY OUTPATIENT VISIT DATE May 05, 2023 OUTPATIENT VISIT TYPE NEW PRIMARY CARE PHYSICIAN: Marion Feng [address] [facility] [address] [place] [address] REFERRING PHYSICIAN: SELF CHIEF COMPLAINT: Follow up fo rh.o PAF HISTORY OF PRESENT ILLNESS: He has a h.o COPD, Prior right LE DVT, PRotein C deficiency on COumadin, Persistent AF despite Flecainide Recurred post DCCV s/p RFA with PVAI and CTI 08/05/22 with post RFA EF 62% Dr Mathew oV 05/05/23 Rich Whit James is a 67 year old year old MALE and is here for follow up. He states that he has been feeling well. He is able to do his activities of daily living and on his job he has to walk quite a bit and has no symptoms. No chest pain palpitation dizziness lower extremity edema orthopnea PND external bleeding neurologic symptoms. His biggest current issue is smoking about a pack a day or slightly less than that. No other cardiac symptoms. Nikita Ortiz OV 01/27/23 - follow-up regarding history of persistent atrial fibrillation. Overall patient reports feeling excellent. 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 He denies any symptoms of recurrent AF, angina, dizziness, lightheadedness, near-syncope, shortness of breath, worsening activity tolerance, or constitutional symptoms. He reports this is the best he has felt in years. Patient is compliant with his Toprol-XL and Coumadin regimens. He is a [id number] of 3 secondary to age and DVT. He follows with Dr. Hylton for his INR monitoring. Echo from October 2022 showed an ejection fraction of 62%. Left and right atrial cavity mildly dilated. Twelve-lead performed in office today showed sinus bradycardia with ventricular rate of 47 Nikita Ortiz OV 11/05/22 - for 3-month follow-up status post radiofrequency PVI with Dr. Matehw on 08/05/2022... Previously when he was experiencing A-fib indicates around noon or 1:00 he would be exhausted. He is now going through his workday without difficulty. Patient states this is the best he is felt in years. ...EKG performed in office showed sinus bradycardia with PACs and a ventricular rate of 46. We discussed this patient is taking Toprol-XL 50 mg (2 of the 25 mg tabs) in the mornings. I advised the patient that his heart rate is a little low and that we should probably go down to 1 tab once a day. Pat... Patient believes he may have had 1 episode early on post ablation of A-fib but this was very brief lasting only a few hours. Patient is compliant with his Toprol-XL and Coumadin regimens. CT of chest was performed at [facility] and showed no concerning findings. Surface echo and Holter monitor results currently pending. Dr Mathew OV 05/15/22 - to discuss options for Atrial fibrillation. He has a history of chronic LE venous thromboembolism and Protein C deficiency and is on coumadin. He says that years ago when he had a hip issue he was detected to have lower extremity blood clot and that led to the diagnosis of routine C deficiency and long-term warfarin use. He has never had any blood clots in his lung. In December 2018 at home he had a initial episode of lightheadedness was done on the sofa got up and the next thing he was on the floor with loss of consciousness and injured his right shoulder. The cause of the loss of consciousness was unclear. He then was evaluated by Dr. Hylton and subsequently detected to have paroxysmal atrial fibrillation. He was started on metoprolol for rate control and not for hypertension. In the last few months his atrial fibrillation has become persistent....usually gets fatigued by the middle of the day. About 2 months ago he had an elective cardioversion and for 4 to 5 days noticed a significant improvement in his energy level. He went out of atrial fibrillation and his symptom of fatigue returned.. 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 ETOH - No Family History - Youngest of 6 siblings. No premature CAD. Brother has Blood clots and AF, Sister has COPD. These are his two oldest siblings. Others are . Parents had stroke. Mother had aneurysm. A brother had an aneurysm. Ambulatory monitor 24Hours- Avg HR 94 in Af (more content not included)... Normal [facility] - CoagulationOrde red By: Jose Hylton on 04-02-2023 INR Coag (Bld) [Relative time] 2.7 {INR} [facility] Comment on above: Critical Value > 4.0 Whole blood prothrombin time Ordered By: Jose Hylton on 04-02-2023 PT Coag (Bld) [Time] 29.3 s 11.7-14.9 [facility] - CoagulationOrde red By: Jose Hylton on 02-06-2023 INR Coag (Bld) [Relative time] 2.8 {INR} [facility] Comment on above: Critical Value > 4.0 Whole blood prothrombin time Ordered By: Jose Hylton on 02-06-2023 PT Coag (Bld) [Time] 30.2 s 11.7-14.9 [facility] CNOVon 01-27-2023 CNOV Office Visit (AGCARDPOB) RICH JAMES I ([id number]) 1955 M NFR Date Time Provider Department 01/27/23 8:30 AM NIKITA ORTIZ AGCARDPOPeng During your visit today, we recorded the following information about you: Pulse Blood pressure Weight 55/minute 116/64 91.2 kg Nikita Ortiz APRN.PERSONAL CAREGIVER 01/27/2023 9:09 AM Signed [facility] Electrophysiology PRIMARY CARE PHYSICIAN: Marion Feng [facility] [address] CHIEF COMPLAINT: Persistent atrial fibrillation. HISTORY OF PRESENT ILLNESS (copied from my previous office note on 11/05/2022): Rich is a pleasant 66-year-old gentleman who presents today for 3-month follow-up status post radiofrequency PVI with Dr. Mathew on 08/05/2022. Overall patient reports he has been feeling very well lately. 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 Previously when he was experiencing A-fib indicates around noon or 1:00 he would be exhausted. He is now going through his workday without difficulty. Patient states this is the best he is felt in years. Presently denies angina, shortness of breath, worsening activity tolerance, or constitutional symptoms. Patient denies weakness, dizziness, lightheadedness, or syncope. EKG performed in office showed sinus bradycardia with PACs and a ventricular rate of 46. We discussed this patient is taking Toprol-XL 50 mg (2 of the 25 mg tabs) in the mornings. I advised the patient that his heart rate is a little low and that we should probably go down to 1 tab once a day. Patient verbalized understanding and was agreeable. Patient believes he may have had 1 episode early on post ablation of A-fib but this was very brief lasting only a few hours. Patient is compliant with his Toprol-XL and Coumadin regimens. CT of chest was performed at [facility] and showed no concerning findings. Surface echo and Holter monitor results currently pending. Agreeable to follow-up in 3 months. Interval History: Rich is a pleasant 67-year-old gentleman who presents today for follow-up regarding history of persistent atrial fibrillation. Overall patient reports feeling excellent. 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 He denies any symptoms of recurrent AF, angina, dizziness, lightheadedness, near-syncope, shortness of breath, worsening activity tolerance, or constitutional symptoms. He reports this is the best he has felt in years. Patient is compliant with his Toprol-XL and Coumadin regimens. He is a [id number] of 3 secondary to age and DVT. He follows with Dr. Hylton for his INR monitoring. Echo from October 2022 showed an ejection fraction of 62%. Left and right atrial cavity mildly dilated. Twelve-lead performed in office today showed sinus bradycardia with ventricular rate of 47. Agreeable to follow-up in 3 months. 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 Mathew on 08/05/2022. THROMBOPHLEBITIS NOS 03/29/2005 right leg Tobacco use disorder 10/14/2006 Traumatic complete tear of right rotator cuff 01/06/2020 Venous (peripheral) insufficiency 04/01/2005 PAST SURGICAL HISTORY Procedure Laterality Date ARTHRP ACETBLR/PROX FEM PROSTC AGRFT/ALGRFT Hip replacement, total, Right COLONOSCOPY FLX DX W/COLLJ SPEC WHEN PFRMD 01/07/2014 Colonoscopy COLONOSCOPY FLX DX W/COLLJ SPEC WHEN PFRMD 05/05/2017 10 year repeat NEUROPLASTY AND/TRANSPOS MEDIAN NRV CARPAL TUNNE Carpal tunnel decomp, Right OPEN REPAIR OF ROTATOR CUFF ACUTE November 2010 Rotator cuff repair, Right Social History Tobacco Use Smoking status: Every Day Packs/day: 1.00 Years: 40.00 Total pack years: 40.00 Types: Cigarettes Smokeless tobacco: Never Substance Use Topics Alcohol use: No Comment: seldom Drug use: No Family History Problem Relation Age of Onset Hypertension Mother aneurysm Diabetes Father Cancer Brother liver COPD Brother other (Pulmonary Embolism) Brother blood clots Arthritis Sister osteoarthritis ALLERGIES Allergen Reactions Seasonal Allergies Other: See Comments MEDICATIONS: metoprolol succinate ER (TOPROL XL) 25 mg 24 hr tabletTake 1 tablet by mouth once daily.Disp: 90 tabletRfl: 3 loratadine (CLARITIN) 10 mg ta (more content not included)... Normal [facility] - CoagulationOrde red By: Jose Hylton on 01-16-2023 INR Coag (Bld) [Relative time] 1.8 {INR} [facility] Comment on above: Critical Value > 4.0 Whole blood prothrombin time Ordered By: Jose Hylton on 01-16-2023 PT Coag (Bld) [Time] 19.7 s 11.7-14.9 [facility] Absolute lymphocyte countOrd ered By: Dr. Feng on 12-02-2022 Lymphocytes Auto (Unsp spec) [#/Vol] 1.54 10*3/uL 0.83-4.51 [facility] Basophil percentageOrdered B y: Dr. Feng on 12-02-2022 Basophils/100 WBC (Bld) 1.3 % 0-1 [facility] Bilirubin [Mass/Vol] 0.70 mg/dL 0.20-1.00 [facility] Comment on above: For patients on eltr ombopag therapy, use of Dimension [place] TBIL is not recommended. Chloride [Moles/Vol] 107 mmol/L 98-107 [facility] Cholesterol [Mass/Vol] 156 mg/dL <200 [facility] Comment on above: <200 mg/dL Desirable 200-240 mg/dL Borderline >240 mg/dL High Risk Eosinophils/100 WBC (Bld) 5.4 % 0-5 [facility] Glucose [Mass/Vol] 101 mg/dL 74-106 [facility] Comment on above: Fasting Glucose resu lt from 100 to 125 mg/dL suggests IMPAIRED HOMEOSTASIS per A.D.A. criteria. Neutrophils (Bld) [#/Vol] 3.4 10*3/uL 2.0-7.7 [facility] Neutrophils/100 WBC (Bld) 57.8 % 47-70 [facility] Potassium [Moles/Vol] 4.4 mmol/L 3.5-5.1 [facility] Protein [Mass/Vol] 7.5 g/dL 6.4-8.2 [facility] Sodium [Moles/Vol] 141 mmol/L 136-145 [facility] Triglyceride [Mass/Vol] 138 mg/dL <199 [facility] Comment on above: The drugs N-Acetylcy steine and Metamizole may falsely depress this assay.Serum Triglycerides Reference Interval Normal <150 mg/dL Borderline high 150 - 199 mg/dL High 200 - 499 mg/dL Very High > or = 500 mg/dL WBC (Bld) [#/Vol] 6.0 10*3/uL 4.4-11.0 [facility] Blood erythrocytes count (nu mber/volume)Ordered By: Dr. Feng on 12-02-2022 RBC (Bld) [#/Vol] 4.91 10*6/uL 4.6-6.2 [facility] Blood hemoglobin measurement (mass/volume)Ordered By: Dr. Feng on 12-02-2022 Hemoglobin (Bld) [Mass/Vol] 15.2 g/dL 13.0-16.5 [facility] Blood lymphocytes/100 leukoc ytesOrdered By: Dr. Feng on 12-02-2022 Lymphocytes/100 WBC (Bld) 25.8 % 19-41 [facility] Blood monocytes/100 leukocyt esOrdered By: Dr. Feng on 12-02-2022 Monocytes/100 WBC (Bld) 9.4 % 0-10 [facility] Blood platelet mean volumeOr dered By: Dr. Feng on 12-02-2022 Platelet mean volume (Bld) [Entitic vol] 9.8 fL 6.2-12.0 [facility] Determination of erythrocyte mean corpuscular volume (MCV)Ordered By: Dr. Feng on 12-02-2022 MCV (RBC) [Entitic vol] 94.7 fL 80-94 [facility] Hematocrit Auto (Bld) [Volum e fraction]Ordered By: Dr. Feng on 12-02-2022 Hematocrit (Bld) [Volume fraction] 46.5 % 40-54 [facility] INR in Blood by Coagulation assayOrdered By: Dr. Hylton on 12-02-2022 INR Coag (Bld) [Relative time] 2.1 {INR} [facility] Laboratory - Chemistry and C hemistry - challengeOrdered By: Dr. Feng on 12-02-2022 ALP [Catalytic activity/Vol] 51 U/L 45-117 [facility] ALT [Catalytic activity/Vol] 38 U/L 16-61 [facility] CO2 [Moles/Vol] 27.0 mmol/L 21.0-32.0 [facility] Globulin (S) [Mass/Vol] 3.6 g/dL 2.2-4.2 [facility] Urea nitrogen/Creatinine [Mass ratio] 15.2 mg/mg 10-20 [facility] - CoagulationOrde red By: Dr. Hylton on 12-02-2022 PT Coag (PPP) [Time] 23.7 s 11.7-14.9 [facility] - Hematology and Cell countsOrdered By: Dr. Feng on 12-02-2022 Erythrocyte distribution width (RBC) [Entitic vol] 47.8 fL 35.1-43.9 [facility] Erythrocyte distribution width (RBC) [Ratio] 13.6 % 11.6-14.6 [facility] Immature granulocytes/100 WBC (Bld) 0.300 % 0.0-0.9 [facility] Comment on above: IG% - Immature Granu locytes (promyelocytes, myelocytes and metamyelocytes) > 1% indicates that a LEFT SHIFT is Present. MCH (RBC) [Entitic mass] 31.0 pg 27.0-32.0 [facility] Nucleated RBC/100 WBC (Bld) [Ratio] 0 % 0-5 [facility] Auto (RBC) [Mass/Vol]Or dered By: Dr. Feng on 12-02-2022 MCHC (RBC) [Mass/Vol] 32.7 g/dL 32-36 [facility] No Panel InformationOrdered By: Dr. Feng on 12-02-2022 Estimated GFR (MDRD) Amer 98 mL/min >60 [facility] Comment on above: GFR Calc Estimated GFR (MDRD) Non-Af Amer 81 mL/min >60 [facility] Comment on above: Non- GFR Calc Vitamin D 25-Hydroxy 43.0 ng/mL [facility] Comment on above: Vitamin D 25(OH) Sta tus Range Deficiency <20 ng/mL (50nmol/L) Insufficiency 20 - 30 ng/mL (50 - 75 nmol/L) Sufficiency 30 - 100 ng/mL (75 - 250 nmol/L) Toxicity >100 ng/mL (>250 nmol/L) Platelets bldOrdered By: Dr. Feng on 12-02-2022 Platelets (Bld) [#/Vol] 229 10*3/uL 150-450 [facility] Serum or plasma albumin laura urement (mass/volume)Ordered By: Dr. Feng on 12-02-2022 Albumin [Mass/Vol] 3.9 g/dL 3.2-5.0 [facility] Serum or plasma albumin/glob ulin mass ratioOrdered By: Dr. Feng on 12-02-2022 Albumin/Globulin [Mass ratio] 1.1 {ratio} 0.9-2.4 [facility] Serum or plasma calcium laura urement (mass/volume)Ordered By: Dr. Feng on 12-02-2022 Calcium [Mass/Vol] 9.2 mg/dL 8.5-10.1 [facility] Serum or plasma cholesterol in HDL measurement (mass/volume)Ordered By: Dr. Feng on 12-02-2022 Cholesterol in HDL [Mass/Vol] 41 mg/dL >40 [facility] Comment on above: The drugs N-Acetylcy steine and Metamizole may falsely depress this assay. Reference Range HDL <40 mg/dL Low HDL Cholesterol HDL >or= 60 mg/dL High HDL Cholesterol Serum or plasma cholesterol in VLDL measurement (mass/volume)Ordered By: Dr. Feng on 12-02-2022 Cholesterol in VLDL [Mass/Vol] 28 mg/dL 5-40 [facility] Serum or plasma creatinine m easurement (mass/volume)Ordered By: Dr. Feng on 12-02-2022 Creatinine [Mass/Vol] 0.99 mg/dL 0.70-1.30 [facility] Comment on above: The validity of the calculated GFR & GFRAA in patients over 70 years has not been determined. Clinical correlation is essential. Serum or plasma low density lipoprotein (LDL) cholesterol measurement (mass/volume)Ordered By: Dr. Feng on 12-02-2022 Cholesterol in LDL [Mass/Vol] 87 mg/dL 0-130 [facility] Serum or plasma urea nitroge n measurement (mass/volume)Ordered By: Dr. Feng on 12-02-2022 Urea nitrogen [Mass/Vol] 15 mg/dL 7-18 [facility] Thin prep Papanicolaou smear with manual screeningOrdered By: Dr. Feng on 12-02-2022 Thin prep Papanicolaou smear with manual screening 31 U/L 15-37 [facility] Thin prep Papanicolaou smear with manual screening 7 5-15 [facility] CNPNon 11-20-2022 [facility] Tele[facility] (AGCARDPOB ) RICH JAMES I ([id number]) 1955 Desiree NFR Date Time Provider Department 11/20/22 AYLIN MATHEW During your visit today, we recorded the following information about you: Georgina Dudley, RN 11/20/2022 9:46 AM Signed Received a call from patient with a blood pressure update. 11/16/22- 119/66 HR- 73 evenin/63 HR- 61 11/17/22- 103/58 HR- 57 evenin/77 HR- 58 11/18/22- 120/67 HR- 57 evenin/63 HR- 68 11/19/22- 123/62 HR- 56 evenin/60 HR- 66 11/20/22 119/61 HR- 61 Patient wanted you to be aware that he forgot that while he was wearing the monitor he was driving and became lost. His anxiety level was elevated which could have been the cause of the elevated heart rates. BENIGNO Tang RN 11/20/2022 11:17 AM Signed Spoke with patient and notified of Dr. Mathew's message and recommendations. Patient voiced understanding and will keep Dr Mathew updated.. BENIGNO Tang MD You 1 hour ago (9:57 AM) Ok, that would explain it. In that case, and if he is not having any symptoms, we can hold off on doing a stress test. iF he is having exertional symptoms of shortness of breath or chest discomfort then do the stress test otherwise Ok to wait Aylin Mathew MD Allergies As of Date: 11/20/2022 Noted Allergy Reaction SEASONAL ALLERGIES 02/18/2020 14 - Other: See Comments Date Reviewed: 11/05/2022 Reviewed by: Nikita Ortiz APRN.PERSONAL CAREGIVER - Fully Assessed Reason for Visit: Patient Update [1234] Prescriptions as of 11/20/2022 - metoprolol succinate ER (TOPROL XL) 25 mg 24 hr tablet Take 1 tablet by mouth once daily. - loratadine (CLARITIN) 10 mg tablet Take 10 mg by mouth once daily. - CPAP daily at bedtime. - FAMOTIDINE ORAL Take 20 mg by mouth once daily. - umeclidinium-vilantero l (ANORO ELLIPTA) 62.5-25 mcg/actuation inhaler Inhale 1 Puff as instructed once daily. - loratadine-pseudoephed rine ER (CLARITIN-D 24 HOUR) 10-240 mg Tb24 Take 1 tablet by mouth once daily. - simvastatin (ZOCOR) 20 mg tablet Take 1 tablet by mouth daily at bedtime. - warfarin (COUMADIN) 5 mg tablet Take 1 tablet by mouth once daily. Take 1.5 tablets (7.5mg) on Wednesdays and 1 tablet (5mg) al other days as directed. - fluticasone (FLONASE) 50 mcg/actuation nasal spray Use 1-2 Sprays in each nostril once daily. - Miscellaneous Medical Supply (COMPRESSION STOCKINGS) Misc Misc Use as directed (Pressure 30-40mmHg) to Right Leg Dx 453.9 459.81 - GLUCOSAMINE CHONDROITIN MAXSTR 500 MG-400 MG ORAL CAP Take 2 capsules by mouth once daily. Facility-Administered Medications as of 11/20/2022 - perflutren lipid microspheres 1.3 mL in NaCl (PF) 0.9% 10 mL injection (DEFINITY) - sodium chloride 0.9 % (flush) 10 mL (BD POSIFLUSH) Meds Comments as of 10/18/2022: As well as Coumadin 7.5 mg on Wednesdays and 5 mg on all other days. 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] 06/01/2013 11/10/2013 Allergic rhinitis [J30.9] 10/17/2014 Sinus bradycardia [R00.1] 05/19/2017 Chronic thromboembolism of deep veins of lower *06/01/2019 Traumatic complete tear of right rotator cuff [*01/06/2020 Persistent atrial fibrillation (HCC) [I48.19] 04/27/2020 Obesity, Class I, BMI 30-34.9 [E66.9] 04/27/2020 Protein C deficiency (HCC) [D68.59] 08/05/2022 At risk for stroke [Z91.89] 08/05/2022 Status post catheter ablation of atrial fibrill*08/06/2022 Encounter Status:Closed by GEORGINA DUDLEY on 11/20/22 [facility] Danyel 11-19-2022 [facility] Telephone (AGCARDPOB ) RICH JAMES I ([id number]) 1955 M NFR Date Time Provider Department 11/19/22 AYLIN MATHEW AGCARDPOB During your visit today, we recorded the following information about you: Aylin Mathew MD 11/19/2022 4:45 PM Signed The monitor showed no episode of Afib He did have one episode lasting 18 minutes of a rapid heart rhythm on 11/05/22 around 12 10 pm. His heart rate was 141 beats a minute. This may be coming from either the upper chamber or the lower chamber of the heart. He may need to repeat a stress test. Last one was in 2019. Please ask if patient recalls any episode on with symptoms and if he is willing to do a stress test Thanks Aylin Rose LPN 11/19/2022 5:09 PM Signed I spoke to and informed him of 's response to monitor results and recommendations.Patien t voiced understanding. Patient states he was at work and was probably exerting himself. Patient states he is willing to repeat stress test as recommended. 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 - loratadine (CLARITIN) 10 mg tablet Take 10 mg by mouth once daily. - CPAP daily at bedtime. - FAMOTIDINE ORAL Take 20 mg by mouth once daily. - umeclidinium-vilantero l (ANORO ELLIPTA) 62.5-25 mcg/actuation inhaler Inhale 1 Puff as instructed once daily. - loratadine-pseudoephed rine ER (CLARITIN-D 24 HOUR) 10-240 mg Tb24 Take 1 tablet by mouth once daily. - simvastatin (ZOCOR) 20 mg tablet Take 1 tablet by mouth daily at bedtime. - warfarin (COUMADIN) 5 mg tablet Take 1 tablet by mouth once daily. Take 1.5 tablets (7.5mg) on Wednesdays and 1 tablet (5mg) al other days as directed. - fluticasone (FLONASE) 50 mcg/actuation nasal spray Use 1-2 Sprays in each nostril once daily. - Miscellaneous Medical Supply (COMPRESSION STOCKINGS) Misc Misc Use as directed (Pressure 30-40mmHg) to Right Leg Dx 453.9 459.81 - GLUCOSAMINE CHONDROITIN MAXSTR 500 MG-400 MG ORAL CAP Take 2 capsules by mouth once daily. Facility-Administered Medications as of 11/19/2022 - perflutren lipid microspheres 1.3 mL in NaCl (PF) 0.9% 10 mL injection (DEFINITY) - sodium chloride 0.9 % (flush) 10 mL (BD POSIFLUSH) Meds Comments as of 10/18/2022: As well as Coumadin 7.5 mg on Wednesdays and 5 mg on all other days. 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] 06/01/2013 11/10/2013 Allergic rhinitis [J30.9] 10/17/2014 Sinus bradycardia [R00.1] 05/19/2017 Chronic thromboembolism of deep veins of lower *06/01/2019 Traumatic complete tear of right rotator cuff [*01/06/2020 Persistent atrial fibrillation (HCC) [I48.19] 04/27/2020 Obesity, Class I, BMI 30-34.9 [E66.9] 04/27/2020 Protein C deficiency (HCC) [D68.59] 08/05/2022 At risk for stroke [Z91.89] 08/05/2022 Status post catheter ablation of atrial fibrill*08/06/2022 Encounter Status:Closed by A[facility]LIN MATHEW [facility] Tele[facility] (ANIBAL) RICH JAMES I ([id number]) 1955 M NFR Date Time Provider Department 11/07/22 AYLIN MATHEW During your visit today, we recorded the following information about you: Nilsa Rose LPN 11/07/2022 1:48 PM Signed ----- Message from Aylin Mathew MD sent at 11/07/2022 1:34 PM EDT ----- ECHO shows normal Ejection fraction Nilsa Rose LPN 11/07/2022 1:49 PM Signed I spoke to and informed him of 's response to Echo results. Patient voiced understanding. NilsaROSELIA Cervantesel Anastasiya 11/19/2022 1:20 PM Signed Received Holter Monitor Report for pt. Placed in Dr. Mathew's inbox @ [facility] for review. Sanjeev Anastasiya November 19, 2022 1:20 PM Allergies As of Date: 11/07/2022 Noted Allergy Reaction SEASONAL ALLERGIES 02/18/2020 14 - Other: See Comments Date Reviewed: 11/05/2022 Reviewed by: Nikita Ortiz APRN.PERSONAL CAREGIVER - Fully Assessed Reason for Visit: Results [95] Prescriptions as of 11/19/2022 - metoprolol succinate ER (TOPROL XL) 25 mg 24 hr tablet Take 1 tablet by mouth once daily. - loratadine (CLARITIN) 10 mg tablet Take 10 mg by mouth once daily. - CPAP daily at bedtime. - FAMOTIDINE ORAL Take 20 mg by mouth once daily. - umeclidinium-vilantero l (ANORO ELLIPTA) 62.5-25 mcg/actuation inhaler Inhale 1 Puff as instructed once daily. - loratadine-pseudoephed rine ER (CLARITIN-D 24 HOUR) 10-240 mg Tb24 Take 1 tablet by mouth once daily. - simvastatin (ZOCOR) 20 mg tablet Take 1 tablet by mouth daily at bedtime. - warfarin (COUMADIN) 5 mg tablet Take 1 tablet by mouth once daily. Take 1.5 tablets (7.5mg) on Wednesdays and 1 tablet (5mg) al other days as directed. - fluticasone (FLONASE) 50 mcg/actuation nasal spray Use 1-2 Sprays in each nostril once daily. - Miscellaneous Medical Supply (COMPRESSION STOCKINGS) Misc Misc Use as directed (Pressure 30-40mmHg) to Right Leg Dx 453.9 459.81 - GLUCOSAMINE CHONDROITIN MAXSTR 500 MG-400 MG ORAL CAP Take 2 capsules by mouth once daily. Facility-Administered Medications as of 11/19/2022 - perflutren lipid microspheres 1.3 mL in NaCl (PF) 0.9% 10 mL injection (DEFINITY) - sodium chloride 0.9 % (flush) 10 mL (BD POSIFLUSH) Meds Comments as of 10/18/2022: As well as Coumadin 7.5 mg on Wednesdays and 5 mg on all other days. 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] 06/01/2013 11/10/2013 Allergic rhinitis [J30.9] 10/17/2014 Sinus bradycardia [R00.1] 05/19/2017 Chronic thromboembolism of deep veins of lower *06/01/2019 Traumatic complete tear of right rotator cuff [*01/06/2020 Persistent atrial fibrillation (HCC) [I48.19] 04/27/2020 Obesity, Class I, BMI 30-34.9 [E66.9] 04/27/2020 Protein C deficiency (HCC) [D68.59] 08/05/2022 At risk for stroke [Z91.89] 08/05/2022 Status post catheter ablation of atrial fibrill*08/06/2022 Encounter Status:Closed by NILSA ROSE on 11/07/22 [facility] CNOVon 11-05-2022 CNOV Office Visit (AGCARDPOB) RICH JAMES I ([id number]) 1955 M NFR Date Time Provider Department 11/05/22 10:00 AM NIKITA ORTIZ AGCARDPOB During your visit today, we recorded the following information about you: Pulse Blood pressure Weight 48/minute 111/60 93.4 kg Vicky Curtis MA 11/05/2022 10:33 AM Signed No cardiac complaints today. FRANCE Harry APRN.PERSONAL CAREGIVER 11/05/2022 10:33 AM Signed [facility] Electrophysiology PRIMARY CARE PHYSICIAN: Marion Feng [address] [id number] CHIEF COMPLAINT: 3 months post radiofrequency PVI with Dr. Mathew on 08/05/2022. HISTORY OF PRESENT ILLNESS (copied from Dr. Mathew's office note on 05/15/2022): Mr. James is a 66 year old male who presents today to discuss options for Atrial fibrillation. He has a history of chronic LE venous thromboembolism and Protein C deficiency and is on coumadin. He says that years ago when he had a hip issue he was detected to have lower extremity blood clot and that led to the diagnosis of routine C deficiency and long-term warfarin use. He has never had any blood clots in his lung. In December 2018 at home he had a initial episode of lightheadedness was done on the sofa got up and the next thing he was on the floor with loss of consciousness and injured his right shoulder. The cause of the loss of consciousness was unclear. He then was evaluated by Dr. Hylton and subsequently detected to have paroxysmal atrial fibrillation. He was started on metoprolol for rate control and not for hypertension. In the last few months his atrial fibrillation has become persistent. He says that he is not aware of palpitations all the time but has noticed more easily getting fatigued when he is on his job and usually gets fatigued by the middle of the day. About 2 months ago he had an elective cardioversion and for 4 to 5 days noticed a significant improvement in his energy level. He went out of atrial fibrillation and his symptom of fatigue returned. No prior heart attack stroke congestive heart failure TIA Interval History: Rich is a pleasant 66-year-old gentleman who presents today for 3-month follow-up status post radiofrequency PVI with Dr. Mathew on 08/05/2022. Overall patient reports he has been feeling very well lately. 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 Previously when he was experiencing A-fib indicates around noon or 1:00 he would be exhausted. He is now going through his workday without difficulty. Patient states this is the best he is felt in years. Presently denies angina, shortness of breath, worsening activity tolerance, or constitutional symptoms. Patient denies weakness, dizziness, lightheadedness, or syncope. EKG performed in office showed sinus bradycardia with PACs and a ventricular rate of 46. We discussed this patient is taking Toprol-XL 50 mg (2 of the 25 mg tabs) in the mornings. I advised the patient that his heart rate is a little low and that we should probably go down to 1 tab once a day. Patient verbalized understanding and was agreeable. Patient believes he may have had 1 episode early on post ablation of A-fib but this was very brief lasting only a few hours. Patient is compliant with his Toprol-XL and Coumadin regimens. CT of chest was performed at [facility] and showed no concerning findings. Surface echo and Holter monitor results currently pending. Agreeable to follow-up in 3 months. 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 Mathew on 08/05/2022. THROMBOPHLEBITIS NOS 03/29/2005 right leg Tobacco use disorder 10/14/2006 Traumatic complete tear of right rotator cuff 01/06/2020 Venous (peripheral) insufficiency 04/01/2005 PAST SURGICAL HISTORY Procedure Laterality Date ARTHRP ACETBLR/PROX FEM PROSTC AGRFT/ALGRFT Hip replacement, total, Right COLONOSCOPY FLX DX W/COLLJ SPEC WHEN PFRMD 01/07/2014 Colonoscopy COLONOSCOPY FLX DX W/COLLJ SPEC WHEN PFRMD 05/05/2017 10 year repeat NEUROPLASTY AND/TRANSPOS MEDIAN NRV CARPAL TUNNE Carpal tunnel decomp, Right OPEN REPAIR OF ROTATOR CUFF ACUTE November 2010 Rotator cuff repair, Right Social History Tobacco Use [place] (more content not included)... Normal [facility] ECHOon 11-05-2022 Echocardiography Echocardiography Report: Transthoracic Echo [facility] Date of service: 11/05/2022 8:23:41 AM [facility] Ordering physician: AYLIN MATHEW Indication: Sustained atrial fibrillation Technologist: Branden Joseph Interpreting physician: Carter Garrido MD PATIENT: Name: MR. RICH JAMES : 1955 Age: 66 years Gender: M Previous cardiovascular interventions: Afib ablation (2022) Primary rhythm: sinus. Height: 175.00 cm BSA: 2.14 m Weight: 94.00 kg BMI: 30.7 kg/m Heart rate 54 bpm Blood pressure 111/60 mmHg Color Doppler was utilized to interrogate the cardiac valves assessed and spectral Doppler was utilized to determine the flow velocities and pressure gradients reported in this exam. MEASUREMENTS: Value Indexed Normal Max aortic dimension 2.9 cm Ao < 3.8 Left atrium diameter 4.1 cm (2D) Left atrial volume 74 ml (biplane A-L) 35 ml/m [place] <= 34 LV ID (diastole) 5.0 cm (2D) 2.33 cm/m LV ID (systole) 3.3 cm (2D) 1.57 cm/m IVS, leaflet tips 1.2 cm (2D) Posterior wall thickness 1.3 cm (2D) Left ventricular mass 243 g (2D) 114 g/m LV stroke volume 65 ml (2D biplane) LV end diastolic volume 104 ml (2D biplane) 48.7 ml/m 34<=EDVi<75 LV end systolic volume 39 ml (2D biplane) 18.4 ml/m Ejection Fraction 62 % (2D biplane) EF > 52 FINDINGS: LEFT VENTRICLE The left ventricle is normal in size. Left ventricular systolic function is normal globally. Normal left ventricular diastolic function. Mitral annular lateral E/e': 9.1. Mitral annular septal E/e': 10.4. Wall Motion: All scored segments are normal. RIGHT VENTRICLE The right ventricle is normal in size. Right ventricular systolic function is normal. RV systolic tissue Doppler velocity is 12.0 cm/s. Tricuspid annular displacement is 2.3 cm. Estimated right ventricular systolic pressure is 33 mmHg consistent with normal pulmonary artery pressures. Estimated right atrial pressure is 3 mmHg based on IVC assessment. LEFT ATRIUM The left atrial cavity is mildly dilated. RIGHT ATRIUM The right atrial cavity is mildly dilated. Inferior Vena Cava: The inferior vena cava appears normal measuring 1.1 cm. The vessel decreases greater than 50 percent with inspiration. MITRAL VALVE The mitral valve leaflets are structurally normal. There is trace mitral valve regurgitation. The pressure half time is 107 msec. The peak mitral E/A ratio is 1.57. The average mitral E/e' ratio is 9.8. The mitral flow deceleration time is 369 msec. TRICUSPID VALVE The tricuspid valve leaflets are structurally normal. There is trace (trace - 1+) tricuspid valve regurgitation. AORTIC VALVE The aortic valve cusps are structurally normal. There is no aortic valve regurgitation. Tricuspid aortic valve. The LVOT diameter is 1.9 cm. PULMONIC VALVE The pulmonic valve cusps are structurally normal. There is no pulmonic valve regurgitation. AORTA The visualized aorta is normal in size. Measurements - Mid ascending aorta 2.9 cm. PERICARDIUM There is no pericardial effusion. CONCLUSIONS: - Exam indication: Sustained atrial fibrillation - The left ventricle is normal in size. Left ventricular systolic function is normal. EF = 62 5% (2D biplane) Normal left ventricular diastolic function. - The right ventricle is normal in size. Right ventricular systolic function is normal. - The left atrial cavity is mildly dilated. - The right atrial cavity is mildly dilated. - There are no significant valvular abnormalities. - Exam was compared with the prior CC echocardiographic exam performed on 08/16/2019. There is no significant change. * * * Final * * * [facility] : [id number] goDynamicsSISUID Normal [facility] Basophil percentageOrdered B y: Hi Swanson on 10-14-2022 Creatinine [Mass/Vol] 1.3 mg/dL 0.70-1.30 [facility] - Chemistry and C hemistry - challengeOrdered By: Hi Swanson on 10-14-2022 GFR/1.73 sq M.predicted among non-blacks MDRD (S/P/Bld) [Vol rate/Area] 58.0000 mL/min/{1.73_m2} >60 [facility] - CoagulationOrde red By: Dr. Hylton on 10-03-2022 INR Coag (Bld) [Relative time] 2.0 {INR} [facility] Comment on above: Critical Value > 4.0 Whole blood prothrombin time Ordered By: Dr. Hylton on 10-03-2022 PT Coag (Bld) [Time] 21.5 s 11.7-14.9 [facility] - CoagulationOrde red By: Dr. Hylton on 09-13-2022 INR Coag (Bld) [Relative time] 2.3 {INR} [facility] Comment on above: Critical Value > 4.0 Whole blood prothrombin time Ordered By: Dr. Hylton on 09-13-2022 PT Coag (Bld) [Time] 27.3 s 11.7-14.9 [facility] CNPNon 08-23-2022 CNPN Telephone (ANUP ) RICH JAMES I ([id number]) 1955 M NFR Date Time Provider Department 08/23/22 AYLIN MATHEW During your visit today, we recorded the following information about you: Amna Lau 08/23/2022 10:12 AM Signed Post PVAI orders pended for signature - office will call to schedule Allergies As of Date: 08/23/2022 Noted Allergy Reaction SEASONAL ALLERGIES 02/18/2020 14 - Other: See Comments Date Reviewed: 08/05/2022 Reviewed by: Jessica Patricia RN - Fully Assessed Reason for Visit: Orders [681] Primary Visit Diagnosis:Dyspnea, unspecified type [R06.00] Other Visit Diagnosis:Persistent atrial fibrillation (HCC) [I48.19] Order(s):ECHO [[id number]] Order #: [id number]: 1 FUTURE perflutren lipid microspheres 1.3 mL in NaCl (PF) 0.9% 10 mL injection (DEFINITY)Disp: Rfl: sodium chloride 0.9 % (flush) 10 mL (BD POSIFLUSH)Disp: Rfl: HOLTER MONITOR 24 HOUR [[id number]] Order #: [id number] FUTURE CTA CHEST (NONGATED) W IVCON [[id number]] Order #: [id number] FUTURE iv contrast (will be provided with radiology test)CTA CHEST - No IV access, insert saline lock prior to the sedation, infusion, injection for imaging exam. Discontinue saline lock post exam. If Pt. has a central line or IVAD, may access for administration according to line specific nursing protocol. Once exam is complete flush line and de-access according to line specific nursing protocol in the CT contrast administration guidelines link.Disp: 1 EachRfl: 0 Prescriptions as of 08/23/2022 - iv contrast (will be provided with radiology test) CTA CHEST - No IV access, insert saline lock prior to the sedation, infusion, injection for imaging exam. Discontinue saline lock post exam. If Pt. has a central line or IVAD, may access for administration according to line specific nursing protocol. Once exam is complete flush line and de-access according to line specific nursing protocol in the CT contrast administration guidelines link. - loratadine (CLARITIN) 10 mg tablet Take 10 mg by mouth once daily. - CPAP - FAMOTIDINE ORAL Take 20 mg by mouth once daily. - umeclidinium-vilantero l (ANORO ELLIPTA) 62.5-25 mcg/actuation inhaler Inhale 1 Puff as instructed once daily. - loratadine-pseudoephed rine ER (CLARITIN-D 24 HOUR) 10-240 mg Tb24 Take 1 tablet by mouth once daily. - simvastatin (ZOCOR) 20 mg tablet Take 1 tablet by mouth daily at bedtime. - metoprolol succinate ER (TOPROL XL) 25 mg 24 hr tablet Take 2 tablets by mouth once daily. Per Dr. Hylton. - warfarin (COUMADIN) 5 mg tablet Take 1 tablet by mouth once daily. Take 1.5 tablets (7.5mg) on Wednesdays and 1 tablet (5mg) al other days as directed. - fluticasone (FLONASE) 50 mcg/actuation nasal spray Use 1-2 Sprays in each nostril once daily. - Miscellaneous Medical Supply (COMPRESSION STOCKINGS) [facility] Use as directed (Pressure 30-40mmHg) to Right Leg Dx 453.9 459.81 - GLUCOSAMINE CHONDROITIN MAXSTR 500 MG-400 MG ORAL CAP Facility-Administered Medications as of 08/23/2022 - perflutren lipid microspheres 1.3 mL in NaCl (PF) 0.9% 10 mL injection (DEFINITY) - sodium chloride 0.9 % (flush) 10 mL (BD POSIFLUSH) Problem List As Of Date 08/23/2022 Noted Resolved PURE HYPERCHOLESTEROLEM [E78.00] 03/29/2005 GENERAL OSTEOARTHROSIS [M15.9] 03/29/2005 Coagulopathy (HCC) [D68.9] 04/01/2005 Venous (peripheral) insufficiency [I87.2] 04/01/2005 Embolism and thrombosis (HCC) [I74.9] 09/30/2005 02/18/2020 TOBACCO USE DISORDER [F17.200] 10/14/2006 History of total hip replacement [Z96.649] 07/23/2011 05/08/2012 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] 06/01/2013 11/10/2013 Allergic rhinitis [J30.9] 10/17/2014 Sinus bradycardia [R00.1] 05/19/2017 Chronic thromboembolism of deep veins of lower *06/01/2019 Traumatic complete tear of right rotator cuff [*01/06/2020 Persistent atrial fibrillation (HCC) [I48.19] 04/27/2020 Obesity, Class I, BMI 30-34.9 [E66.9] 04/27/2020 Protein C deficiency (HCC) [D68.59] 08/05/2022 At risk for stroke [Z91.89] 08/05/2022 Status post catheter ablation of atrial fibrill*08/06/2022 Prescriptions ordered this encounter Disp Refills Start End PERFLUTREN LIPID MICROSPHERES 1.1 MG* 08/23/2022 11/23/2023 Route: INTRAVENOUS SODIUM CHLORIDE 0.9 % (FLUSH) INJECT* 08/23/2022 11/23/2023 Route: INTRAVENOUS IV CONTRAST (RADIOLOGY PROCEDURE) 1 Ea* 0 08/23/2022 08/24/2022 Class: In Office Sig: CTA CHEST - No IV access, insert saline lock prior to the sedation, infusion, injection for imaging exam. Discontinue saline lock post exam. If Pt. has a central line or IVAD, may access for administration according to line specific nursing protocol. Once exam is complete flush line and de-access according to line specific nursing protocol in the CT contrast administration guidelines link. Encounter Stat (more content not included)... Normal [facility] ANES POSTPROC EVALon 023 ANES POSTPROC EVAL HNO ID: [id number] Author: Juwan Murry MD Service: Anesthesiology Author Type: Anesthesiologist Type: Anesthesia Postprocedure Evaluation Filed: 08/06/2022 11:09 AM Note Text: POST ANESTHESIA EVALUATION NOTE : 1955 Procedure Summary Date: 08/05/22 Room / Location: [facility] 01 / [place] EP LAB Anesthesia Start: 09 Anesthesia Stop: 160 Procedure: COMPLETE EPS W/PVI ABL W/WO 3D MAP ICE (Bilateral) Diagnosis: Persistent atrial fibrillation (HCC) (Persistent atrial fibrillation (HCC) [I48.19]) Surgeons: Aylin Mathew MD Responsible Provider: Juwan Murry MD Anesthesia Type: general ASA Status: 3 Anesthesia Type: No value filed. Last Vitals Vitals Value Taken Time BP 100/65 08/05/22 1700 Temp 36.3 ?C (97.3 ?F) 08/05/22 1645 HR SpO2 62 08/05/22 1706 Resp 20 08/05/22 1705 SpO2 95 % 08/05/22 1706 Vitals shown include unvalidated device data. Post Anesthesia Patient Status Patient Evaluation: PACU. PACU/ICU Patient Condition: stable. Anticipated Disposition: inpatient floor planned admission. Neurological Status: aware and responsive. Pulmonary Status: breathing comfortably on room air Airway Control: returned to baseline unsupported. Cardiovascular Status: stable. Pain Management: clinically adequate Postoperative Hydration: acceptable. Intraoperative Events: no significant anesthesia events Post Operative Nausea/Vomiting Status: no significant post operative nausea or vomiting Recommendation: further care per PACU/ICU/floor team. Anesthesia Observations No Documentation SIGNATURE: Juwan Murry MD PATIENT NAME: Rich James DATE: August 06, 2022 TIME: 11:08 AM CSN: [id number] [facility] CNDSon 08-06-2022 [facility] HNO ID: [id number] Author: Nikita Ortiz APRN.PERSONAL CAREGIVER Service: Electrophysiology Author Type: Nurse Practitioner Type: Discharge Summary Filed: 08/06/2022 11:40 AM Note Text: Attestation signed by Aylin Mathew MD at 08/07/2022 5:02 PM Attending Note I reviewed the Pharmaceutical Worker's note. I agree with the assessment and plan unless otherwise noted. Signature: Aylin Mathew MD Date: 08/07/2022 Time: 5:02 PM DISCHARGE SUMMARY PATIENT NAME: Rich James Code Status: Not on file Highest Readmission Risk Score: 8 The 30 day readmissions risk score is derived from an internally validated risk model which evaluates patient level characteristics, utilization history, medication orders and lab results up until the day of discharge. Patients with a score of 40 or above are considered highest risk for readmission. Specific patient level drivers will be listed at the bottom of the summary. Admission Information Admission Information ADMIT DATE: 08/05/2022 DISCHARGE DATE: 08/06/2022 MY DOCTORS AND MEDICAL TEAM: My Main Hospital Doctor: Aylin Mathew MD Primary Care Provider: Marion Feng MD My Medical Team Members: Treatment Team: Attending Provider: Aylin Mathwe MD MY CONDITION AT DISCHARGE: Good REASON I WAS IN THE HOSPITAL: Patient underwent radiofrequency PVI with Dr. Mathew on 08/05/2022. There were no intraprocedural or postoperative complications. OTHER PROBLEMS/DIAGNOSIS: Principal Problem: Status post catheter ablation of atrial fibrillation Active Problems: Persistent atrial fibrillation (HCC) Protein C deficiency (HCC) At risk for stroke Discharge Disposition Discharge Disposition: Home With Self Care Activity When You Leave the Hospital Do not sit for long periods of time with your arms or legs bent May drive 24 hours after discharge home. No lifting greater than 5-10 pounds for 5-7 days No strenuous activity, exercise, or sports for 5-7 days, casual walking is fine No walking restrictions Take showers, not baths, until your wound is completely healed Diet Instructions Resume your pre-hospital diet For Pain When You Leave the Hospital Use acetaminophen (Tylenol) as recommended on the bottle Wound/Surgical Site Care Any bruising and bumps should disappear within 3-4 days Avoid lotions or powders Check your wound every day If the bruising expands or the bump enlarges please call your doctor Some bruising, soreness or a small bump under the skin at the inserion site is normal Wash your wound area with mild soap and water daily and gently pat dry with a towel Follow Up Appointments Follow-Up Appointment Dr. Mathew's office will call to schedule a follow up When: In: Comment - 3 months Patient/Parents to call for appointment?: No Aylin Mathew MD [phone] [facility] [address] [facility] [address] PCP Requested Referral Additional Provider to Provider Information: Principal Problem: Status post catheter ablation of atrial fibrillation POA: Unknown Assessment AND Plan: Patient underwent radiofrequency PVI with Dr. Mathew on 08/05/2022. Ablation indications included persistent atrial fibrillation. Procedure was tolerated well and there were no intra or postoperative complications. Bilateral groin sites were removed. Sites clean, dry, and intact without any signs of bleeding or infection. Lengthy discussion was had regarding discharge instructions with both patient and spouse. Topics included lifting restriction, driving restriction, activity restriction, groin site care, medications, and follow-up. They verbalized understanding and having no further questions at this time. Follow-up in 3 months. Active Problems: Persistent atrial fibrillation (HCC) POA: Yes Assessment AND Plan: As above. At risk for stroke POA: Unknown Assessment AND Plan: [id number] of 3 secondary to embolism and age. Remains anticoagulated on Coumadin 5 mg daily. Treatment Team: Attending Provider: Aylin Mathew MD FOLLOW-UP APPOINTMENTS ALREADY SCHEDULED WITH A [facility] PROVIDER: No future appointments. ALLERGIES Allergen Reactions Seasonal Allergies Other: See Comments DISCHARGE MEDICATION: Current Discharge Medication List CONTINUE these medications which have NOT CHANGED loratadine (CLARITIN) 10 mg Take 10 mg by mouth once daily. FAMOTIDINE ORAL 20 mg Take 20 mg by mouth once daily. simvastatin (ZOCOR) 20 mg Take 20 mg by mouth daily at bedtime. Qty: 90 tablet Refills: 1 metoprolol succinate ER (TOPROL XL) 50 mg Take 50 mg by mouth once daily. Per Dr. Hylton. Associated Diagnoses:Persistent atrial fibrillation (HCC) warfarin (COUMADIN) 5 mg Take 5 mg by mouth once daily. Take 1.5 tablets (7.5mg) on Wednesdays (more content not included)... Normal [facility] ANES PRE-OPon 08-05-2022 ANES PRE-OP HNO ID: [id number] Author: Juwan Murry MD Service: Anesthesiology Author Type: Anesthesiologist Type: Anesthesia Preprocedure Evaluation Filed: 08/06/2022 11:09 AM Note Text: ANESTHESIOLOGY DAY OF SURGERY NOTE : 1955 Procedure Information Date/Time: 08/05/2215 Procedure: COMPLETE EPS W/PVI ABL W/WO 3D MAP ICE (Bilateral) - carto/rf hANDp on 07/30? Check with Priyanka pacu/rou [place] [facility] [place] [facility] Surgeons: Aylin Mathew MD Estimated body mass index is 30.13 kg/m? as calculated from the following: Height as of 05/15/22: 177.8 cm (5' 10). Weight as of 05/15/22: 95.3 kg (210 lb). 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 Tracheostomy tube not present Mallampati: II. TM distance: >3 FB. Neck ROM: full ROM without neurological symptoms. Mouth opening: adequate. Short neck: no. Thick neck: no Morgan present: yes DENTAL Dental findings: teeth intact. Additional exam findings: no II - ANESTHESIA PLAN ASA Score: 3 Anesthetic Plan: general Airway type: ETT The patient is a current smoker. (< 1 ppd) NPO Status: adequate Beta Donna Monitoring Plan Monitoring plan: standard ASA. Post Procedure Analgesic Plan Postoperative analgesic plan: multimodal analgesia. Informed Consent Anesthetic risks, benefits, alternatives, personnel and consent discussed: yes. Patient / Responsible Alliance Party agrees to proceed: yes Patient / Surrogate agrees to blood products: Yes Significant changes in the patient condition since the History and Physical, not otherwise documented in primary service progress note: no. Potential Anesthesia issues that may suggest increased risk of complications or contraindication to planned procedure: none. No vitals data found for the desired time range. No current facility-administered medications on file as of 08/05/2022. Outpatient Medications as of 08/05/2022 Medication Sig - fluticasone (FLONASE) 50 mcg/actuation nasal spray DAILY - loratadine (CLARITIN) 10 mg tablet Take 10 mg by mouth once daily. - CPAP - flecainide (TAMBOCOR) 100 mg tablet Take 1 tablet by mouth every 12 hours. - FAMOTIDINE ORAL Take 20 mg by mouth once daily. - umeclidinium-vilantero l (ANORO ELLIPTA) 62.5-25 mcg/actuation inhaler Inhale 1 Puff as instructed once daily. - loratadine-pseudoephed rine ER (CLARITIN-D 24 HOUR) 10-240 mg Tb24 Take 1 tablet by mouth once daily. (Patient not taking: Reported on 05/15/2022) - simvastatin (ZOCOR) 20 mg tablet Take 1 tablet by mouth daily at bedtime. - metoprolol succinate ER (TOPROL XL) 25 mg 24 hr tablet Take 2 tablets by mouth once daily. Per Dr. Hylton. - warfarin (COUMADIN) 5 mg tablet Take 1 tablet by mouth once daily. Take 1.5 tablets (7.5mg) on Wednesdays and 1 tablet (5mg) al other days as directed. - fluticasone (FLONASE) 50 mcg/actuation nasal spray Use 1-2 Sprays in each nostril once daily. - Miscellaneous Medical Supply (COMPRESSION STOCKINGS) Mis Misc Use as directed (Pressure 30-40mmHg) to Right Leg Dx 453.9 459.81 - GLUCOSAMINE CHONDROITIN MAXSTR 500 MG-400 MG ORAL CAP I have interviewed and examined the patient. I have reviewed the medical record and/or the pre-anesthesia evaluation, pertinent labs, and test results. This contains updated information obtained within 48 hours of Surgery/Procedure. SIGNATURE: Juwan Murry MD PATIENT NAME: Rich James DATE: August 05, 2022 TIME: 8:14 AM CSN: [id number] Normal [facility] Basic metabolic 2000 panelon 08-05-2022 Anion gap [Moles/Vol] 10 mmol/L Normal 9-18 [facility] Comment on above: Order Comment: Júnior ireland Type: BLOOD SPECIMEN Ordering Facility: [facility] Address: [address] [place] [address] Performed By: #### 2 4321-2 #### [facility] CLIA [id number] 1 [place] [address] [place] Calcium [Mass/Vol] 9.1 mg/dL Normal 8.5-10.2 [facility] Comment on above: Order Comment: Júnior ireland Type: BLOOD SPECIMEN Ordering Facility: [facility] Address: [address] [address] Performed By: #### 2 4321-2 #### [facility] CLIA [id number] 1 [place] [address] [place] Chloride [Moles/Vol] 107 mmol/L High 97-105 [facility] Comment on above: Order Comment: Speci men Type: BLOOD SPECIMEN Ordering Facility: [facility] Address: [address] [address] Performed By: #### 2 4321-2 #### [facility] CLIA [id number] [address] [place] CO2 [Moles/Vol] 22 mmol/L Normal 22-30 [facility] Comment on above: Order Comment: Speci men Type: BLOOD SPECIMEN Ordering Facility: [facility] Address: [address] [address] Performed By: #### 2 4321-2 #### [facility] CLIA [id number] [address] STATES OF [facility] Creatinine [Mass/Vol] 1.01 mg/dL Normal 0.73-1.22 [facility] Comment on above: Order Comment: Speci men Type: BLOOD SPECIMEN Ordering Facility: [facility] Address: [address] [address] Performed By: #### 2 4321-2 #### [facility] CLIA [id number] [address] ESTIMATED GLOMERULAR FILTRATION RATE 83 mL/min/1.73m??? Normal >=60 [facility] Comment on above: Order Comment: Speci men Type: BLOOD SPECIMEN Ordering Facility: [facility] Address: [address] [place] [address] Result Comment: Vidya mated Glomerular Filtration Rate (eGFR) is calculated using the 2020 CKD-EPI creatinine equation. This equation utilizes serum creatinine, sex, and age as parameters. The creatinine assay has traceable calibration to isotope dilution-mass spectrometry. Refer to KDIGO guidelines for clinical interpretation. In patients with unstable renal function, e.g. those with acute kidney injury, the eGFR may not accurately reflect actual GFR. Performed By: #### 2 4321-2 #### [facility] CLIA [id number] [address] [place] Glucose [Mass/Vol] 107 mg/dL High 74-99 [facility] Comment on above: Order Comment: Júnior ireland Type: BLOOD SPECIMEN Ordering Facility: [facility] Address: [address] [place] [address] Result Comment: The [place] Diabetes [employer] (ADA) provides guidance for cutoff values for fasting glucose and random glucose. The ADA defines fasting as no caloric intake for at least 8 hours. Fasting plasma glucose results between 100 to 125 mg/dL indicate increased risk for diabetes (prediabetes). Fasting plasma glucose results greater than or equal to 126 mg/dL meet the criteria for diagnosis of diabetes. In the absence of unequivocal hyperglycemia, results should be confirmed by repeat testing. In a patient with classic symptoms of hyperglycemia or hyperglycemic crisis, random plasma glucose results greater than or equal to 200 mg/dL meet the criteria for diagnosis of diabetes. Reference: Standards of Medical Care in Diabetes 2016, [place] [employer]. Diabetes Care. 2016.39(Suppl 1). Performed By: #### 2 4321-2 #### [facility] CLIA [id number] 1 [place] [address] [place] Potassium [Moles/Vol] 4.3 mmol/L Normal 3.7-5.1 [facility] Comment on above: Order Comment: Júnior ireland Type: BLOOD SPECIMEN Ordering Facility: [facility] Address: [address] [place] [address] Performed By: #### 2 4321-2 #### [facility] CLIA [id number] [address] [place] Sodium [Moles/Vol] 139 mmol/L Normal 136-144 [facility] Comment on above: Order Comment: Júnior ireland Type: BLOOD SPECIMEN Ordering Facility: [facility] Address: [address] [place] [address] Performed By: #### 2 4321-2 #### [facility] CLIA [id number] 1 [place] [address] [place] Urea nitrogen [Mass/Vol] 17 mg/dL Normal 9-24 [facility] Comment on above: Order Comment: Júnior ireland Type: BLOOD SPECIMEN Ordering Facility: [facility] Address: [address] [place] [address] Performed By: #### 2 4321-2 #### [facility] CLIA [id number] [address] CBC panel Auto (Bld)on 08-05 Erythrocyte distribution width (RBC) [Ratio] 14.1 % Normal 11.5-15.0 [facility] Comment on above: Order Comment: Speci men Type: BLOOD SPECIMEN Ordering Facility: [facility] Address: [address] [place] [address] Performed By: #### T SCR #### [facility] CLIA [id number] [address] Hematocrit (Bld) [Volume fraction] 46.6 % Normal 39.0-51.0 [facility] Comment on above: Order Comment: Speci men Type: BLOOD SPECIMEN Ordering Facility: [facility] Address: [address] [place] [address] Performed By: #### T SCR #### [facility] CLIA [id number] [address] Hemoglobin (Bld) [Mass/Vol] 15.3 g/dL Normal 13.0-17.0 [facility] Comment on above: Order Comment: Speci men Type: BLOOD SPECIMEN Ordering Facility: [facility] Address: [address] [place] [address] Performed By: #### T SCR #### [facility] CLIA [id number] [address] MCH (RBC) [Entitic mass] 31.2 pg Normal 26.0-34.0 [facility] Comment on above: Order Comment: Speci men Type: BLOOD SPECIMEN Ordering Facility: [facility] Address: [address] [place] [address] Performed By: #### T SCR #### [facility] CLIA [id number] [address] OF [facility] MCHC (RBC) [Mass/Vol] 32.8 g/dL Normal 30.5-36.0 [facility] Comment on above: Order Comment: Speci men Type: BLOOD SPECIMEN Ordering Facility: [facility] Address: [address] [address] Performed By: #### T SCR #### [facility] CLIA [id number] [address] MCV (RBC) [Entitic vol] 95.1 fL Normal 80.0-100.0 [facility] Comment on above: Order Comment: Speci men Type: BLOOD SPECIMEN Ordering Facility: [facility] Address: [address] [address] Performed By: #### T SCR #### [facility] CLIA [id number] [address] Nucleated RBC (Bld) [#/Vol] 10*3/uL Normal <0.01 [facility] Comment on above: Order Comment: Speci men Type: BLOOD SPECIMEN Ordering Facility: [facility] Address: [address] [address] Performed By: #### T SCR #### [facility] CLIA [id number] [address] Platelet mean volume (Bld) [Entitic vol] 9.6 fL Normal 9.0-12.7 [facility] Comment on above: Order Comment: Speci men Type: BLOOD SPECIMEN Ordering Facility: [facility] Address: [address] [address] Performed By: #### T SCR #### [facility] CLIA [id number] [address] Platelets (Bld) [#/Vol] 206 10*3/uL Normal 150-400 [facility] Comment on above: Order Comment: Speci men Type: BLOOD SPECIMEN Ordering Facility: [facility] Address: [address] [place] [address] Performed By: #### T SCR #### [facility] CLIA [id number] [address] RBC (Bld) [#/Vol] 4.90 10*6/uL Normal 4.20-6.00 [facility] Comment on above: Order Comment: Speci men Type: BLOOD SPECIMEN Ordering Facility: [facility] Address: [address] [address] Performed By: #### T SCR #### [facility] CLIA [id number] [address] OF [facility] WBC (Bld) [#/Vol] 5.62 10*3/uL Normal 3.70-11.00 [facility] Comment on above: Order Comment: Speci men Type: BLOOD SPECIMEN Ordering Facility: [facility] Address: [address] [place] [address] Performed By: #### T SCR #### [facility] CLIA [id number] [address] CONFIRM BLOOD TYPEon 023 ABO A Normal [facility] Comment on above: Order Comment: Speci men Type: BLOOD SPECIMEN Ordering Facility: [facility] Address: [address] [place] [address] Performed By: #### C ONABO #### [facility] CLIA [id number] [address] Rh Nom (Bld) Positive Normal [facility] Comment on above: Order Comment: Speci men Type: BLOOD SPECIMEN Ordering Facility: [facility] Address: [address] [place] [address] Performed By: #### C ONABO #### [facility] CLIA [id number] [address] ECG COMPLETEon 08-05-2022 ECG COMPLETE Ventricular Rate : 5 9 BPM Atrial Rate : 73 BPM P-R Interval : 188 ms QRS Duration : 122 ms Q-T Interval : 450 ms QTC Calculation(Bazett) : 445 ms Calculated P Everson : 77 degrees Calculated R Everson : -58 degrees Calculated T Everson : -39 degrees SINUS RHYTHM WITH BLOCKED PREMATURE ATRIAL COMPLEXES RIGHT BUNDLE BRANCH BLOCK LEFT ANTERIOR FASCICULAR BLOCK BIFASCICULAR BLOCK T WAVE ABNORMALITY, CONSIDER LATERAL ISCHEMIA ABNORMAL ECG NO PREVIOUS ECGS AVAILABLE Confirmed by MD HOWELL KAMALESH ([id number]) on 08/07/2022 4:32:27 PM NAME : RICH JAMES PID : [id number] : 1955 Gender : Male Race : ORD : [id number] Procedure Date : Aug 05 2022 16:43:14 Edit Date : Aug 07 2022 16:32:28 Diagnosis: SINUS RHYTHM WITH BLOCKED PREMATURE ATRIAL COMPLEXES RIGHT BUNDLE BRANCH BLOCK LEFT ANTERIOR FASCICULAR BLOCK BIFASCICULAR BLOCK T WAVE ABNORMALITY, CONSIDER LATERAL ISCHEMIA ABNORMAL ECG NO PREVIOUS ECGS AVAILABLE Confirmed by MD HOWELL KAMALESH ([id number]) on 08/07/2022 4:32:27 PM Test Reason : Arrhythmia Location : 29 : LAB POOL Overread By : MD HOWELL KAMALESH Edited By : MD HOWELL KAMALESH Referred By : AYLIN MATHEW Acquired by : LEONA STONE [facility] HISTORY PHYSICALon 3 HISTORY PHYSICAL HNO ID: [id number] Author: Aylin Mathew MD Service: Electrophysiology Author Type: Physician Type: HANDP Filed: 08/05/2022 9:08 AM Note Text: UPDATED HISTORY AND PHYSICAL EXAMINATION SERVICE DATE: 08/05/2022 SERVICE TIME: 900 am PHYSICAL EXAM MUST BE COMPLETED ON ADMISSION The History and Physical (completed in the past 30 days) has been reviewed and the patient has been examined. The contents accurately reflect the patient's condition with the following additions or revisions since the HANDP was completed. He has h.o COPD Prior Chr LE dVT, Protein C def and Persistent AF that recurred despite Flecainide. Preserved EF Takes meds regularly. INR therapeutic 3.2 Examination indicates Alert Oriented x 3, speech nl JVP not raised Lungs CTA CVS AF no murmur LE no swelling no changes. This HANDP can be found in the Electronic Medical Record dated 05/15/22 and h and P from this AM.. Ambulatory monitor 24Hours- Avg HR 94 in Af 51 - 148 Longest RR 1.8s. One 7 beat run of NSVT. ECG 04/11/22 - AF 79bpm QRS 120 QT 394 Qtc 427 ECHO report 03/13/20 -- nl LV size and SF EF 55% Nl RV size and systolic fn. Mild LAE Moderate YARED Mild TR PASP 28 nl MV. AoV is not well visualized. Report of Pharmacological Stress test 03/13/2020 - Gated SPECT EF 41%. Conclusion AF, Myocardial perfusion scan with no evidence of ischemia. Preserved Ejection fraction. SIGNATURE: Aylin Mathew MD PATIENT NAME: Rich James DATE: August 05, 2022 TIME: 9:04 AM Normal [facility] HISTORY PHYSICAL HNO ID: [id number] Author: Nikita Ortiz APRN.PERSONAL CAREGIVER Service: Electrophysiology Author Type: Nurse Practitioner Type: HANDP Filed: 08/05/2022 9:11 AM Note Text: HISTORY AND PHYSICAL: ELECTROPHYSIOLOGY SERVICE SERVICE DATE: 08/05/2022 SERVICE TIME: 9:01 AM PCP: Marion Feng MD ATTENDING: Aylin Mathew MD Subjective CHIEF COMPLAINT: Persistent atrial fibrillation (HCC) [I48.19] HISTORY OF PRESENT ILLNESS: Mr. James is a 66 year old male who presents today for PVI with Dr. Mathew. He was originally diagnosed with atrial fibrillation back in December 2018 after experienced a lightheaded/syncopal episode. He follows with Dr. Hylton out of [place]. Lengthy discussion was had as to what to expect pre-/intra-/post PVI with patient and spouse. Topics included general anesthesia, procedure overview, recovery, overnight stay in [facility], medications, and follow-up. Risk and benefit discussion was also had. Very low risk of stroke, bleeding, or . Benefit being long-term maintenance of normal sinus rhythm. Patient last ate at 1999 on 08/04/2022. Patient has seasonal allergies but none other that he is aware of. He denies having trouble with anesthesia in the past. He endorses previous symptoms of AF including fatigue/worsened activity tolerance as well as shortness of breath. [id number] of at least 3 secondary to age and history of embolism. Remains anticoagulated on Coumadin which is managed by Dr. Hylton. Rate control strategy of Toprol-XL 50 mg once a day as well as rhythm control strategy of flecainide 100 mg twice daily. Patient indicates I have answered all his questions and he has nothing further at this time. 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 06/01/2019 Coagulopathy (HCC) 04/01/2005 Protein C Deficiency GENERAL OSTEOARTHROSIS 03/29/2005 Paroxysmal atrial fibrillation (HCC) PROTEIN DEFIC ANEMIA 03/29/2005 PURE HYPERCHOLESTEROLEM 03/29/2005 Sinus bradycardia 05/19/2017 THROMBOPHLEBITIS NOS 03/29/2005 right leg Tobacco use disorder 10/14/2006 Traumatic complete tear of right rotator cuff 01/06/2020 Venous (peripheral) insufficiency 04/01/2005 PAST SURGICAL HISTORY Procedure Laterality Date ARTHRP ACETBLR/PROX FEM PROSTC AGRFT/ALGRFT Hip replacement, total, Right COLONOSCOPY FLX DX W/COLLJ SPEC WHEN PFRMD 01/07/2014 Colonoscopy COLONOSCOPY FLX DX W/COLLJ SPEC WHEN PFRMD 05/05/2017 10 year repeat NEUROPLASTY AND/TRANSPOS MEDIAN NRV CARPAL TUNNE Carpal tunnel decomp, Right OPEN REPAIR OF ROTATOR CUFF ACUTE November 2010 Rotator cuff repair, Right FAMILY HISTORY Problem Relation Age of Onset Hypertension Mother aneurysm Diabetes Father Cancer Brother liver COPD Brother other (Pulmonary Embolism) Brother blood clots Arthritis Sister osteoarthritis Social History Tobacco Use Smoking status: Every Day Packs/day: 1.00 Years: 40.00 Pack years: 40.00 Types: Cigarettes Smokeless tobacco: Never Substance Use Topics Alcohol use: No Comment: seldom Drug use: No Prior to Admission Medications Prescriptions Last Dose Informant Patient Reported? Taking? CPAP Yes No FAMOTIDINE ORAL 08/05/2022 Yes Yes Sig: Take 20 mg by mouth once daily. GLUCOSAMINE CHONDROITIN MAXSTR 500 MG-400 MG ORAL CAP Yes No Miscellaneous Medical Supply (COMPRESSION STOCKINGS) [facility] No No Sig: Use as directed (Pressure 30-40mmHg) to Right Leg Dx 453.9 459.81 flecainide (TAMBOCOR) 100 mg tablet 08/05/2022 No Yes Sig: Take 1 tablet by mouth every 12 hours. fluticasone (FLONASE) 50 mcg/actuation nasal spray No No Sig: Use 1-2 Sprays in each nostril once daily. fluticasone (FLONASE) 50 mcg/actuation nasal spray Yes No Sig: DAILY loratadine (CLARITIN) 10 mg tablet 08/04/2022 Yes Yes Sig: Take 10 mg by mouth once daily. loratadine-pseudoephed rine ER (CLARITIN-D 24 HOUR) 10-240 mg Tb24 No No Sig: Take 1 tablet by mouth once daily. Patient not taking: Reported on 05/15/2022 metoprolol succinate ER (TOPROL XL) 25 mg 24 hr tablet 08/05/2022 No Yes Sig: Take 2 tablets by mouth once daily. Per Dr. Hylton. simvastatin (ZOCOR) 20 mg tablet 08/04/2022 No Yes Sig: Take 1 tablet by mouth daily at bedtime. umeclidinium-vilantero l (ANORO ELLIPTA) 62.5-25 mcg/actuation inhaler Yes No Sig: Inhale 1 Puff as instructed once daily. warfarin (COUMADIN) 5 mg tablet 08/04/2022 at 2200 No Yes Sig: Take 1 tablet by mouth once daily. Take 1.5 tablets (7.5mg) on Wednesdays and 1 tablet (5mg) al other days as directed. Facility-Administered Medications: None No current facility-administered medications for this encounter. ALLERGIES Allergen Reactions Seasonal Allergies Other: See Comments Review of Systems Constitutional: Negative. Eyes: Negative. Respiratory: Negative. Cardiova (more content not included)... Normal [facility] OPERATIVE NOon 08-05-2022 OPERATIVE NO HNO ID: [id number] Author: Aylin Mathew MD Service: Electrophysiology Author Type: Physician Type: Operative Report Filed: 08/05/2022 4:40 PM Note Text: After obtaining informed consent patient was brought to the lab in a postprandial state. Procedure was performed under general anesthesia and guided by fluoroscopy and ultrasound. Three-dimensional mapping with cardio was used to guide procedure Once heparinization was started, dose was adjusted to maintain ACT above 300 seconds. A CIRCA temperature probe was placed in the mid and distal esophagus and on OG tube placed if ESOSURE was needed to move the esophagus. During ablation esophageal temperatures were continuously monitored. Baseline rhythm was AF Vent CL 916ms QRS 135 RBBB morphology QT 406 Patient was draped and prepped in the usual standard sterile fashion 2 short 8 Surinamese sheaths were placed in the right femoral vein and a long 11 Surinamese sheath was placed in the left femoral vein under ultrasound guidance without difficulty. Perclose was used to preclose the left femoral venous access site The decanav catheter was used to create an IVC fam map, Prox CS and RA fam maps and was placed in the mid to distal coronary sinus. The catheter did not advance beyond the md CS (lkely due to Vieussens valve) and kept repeatedly falling back into the RA and needed repeat repositioning. Later on during flutter ablation, the CS catheter was manipulated to the distal CS location and remained stable. Synchronized DCCV at 200J resulted in Sinus rhythm. CL 960 ms FL 155 QRS 130 RBBBB QT 436 AcuNav ice catheter was placed in the right atrium and baseline images obtained. The Lt common os was short. RIPV was small. Next the short 8 Surinamese sheath was exchanged for a Cyn transseptal sheath over 180 cm Versacross wire. The wire went across the lower part of the IAS without the need for any TSP and the wire and sheath advanced into the LA. The sheath was aspirated and flushed and heparinization started. The Cyn sheath was exchanged for a Visigo sheath over a long wire. The Sheath was aspirated and flushed. A Penta ray mapping catheter was placed in the left atrium. A 3D anatomical and voltage map of the left atrium and pulmonary veins was obtained using the Penta ray. There was no scar. Next the Penta ray was exchanged for a [address] SF ablation catheter. Wide antral isolation of the LSPV, LIPV and anterior katherine Lt side performed. Due to the low position of the transseptal access, wide antral isolation of the RSPV done and ablation of the RIPV was close to the OS. Entrance and exit blocks were confirmed on the LT side. On the right, the veins were not isolated. At this time, patient went into a regular Atrial tachycardia CL 370 - 380ms with 2 to 1 AV conduction. The ICE catheter was removed and Pentaray used to map the RA. The entire TCL was mapped to the RA. The tachycardia was entrained from the CS but PPI 532ms. The Pentray was placed at the isthmus. Entrainment from the Isthmus was on time. PPI - TCL < 30ms. Double potentials and zone of slow conduction present. The Pentaray was placed in the LA and the ablation catheter placed in the RA and CTI ablation performed. During ablation, the TCL prolonged to 454ms with 1 to 1 AV conduction but Afl persisted. The Pentaray in the LA was exchanged for the ablation catheter. The RA and CTI was mapped using the Pentaray during prox CS pacing at 600ms and conduction area near TV identified. Again the ablation catheter and Pentaray were exchanged and ablation at the annular and lateral side of the CTI performed with slight lengthening of TCL. A PAC terminated the tachycardia. Now during SR, the Pentaray placed in RSPV and RIPV and conduction corridor at the posterosuperior aspect of the RSPV identified. The Pentray was exchanged for the ablation catheter and a single ablation at the RSPV posterosuperior area resulted in both entrance and exit blocks which were confirmed with the Pentaray. The Pentaray and Visigo sheaths were withdrawn into the RA and the Pentaray used to map the CTI with prox CS pacing. It showed conduction block and CS to Lateral conduction time of 260ms. The Pentaray was placed at the HIS AH 88ms HV 59ms QRS 133 RR 982ms QT 430ms The ICE catheter was placed in the RA and RV. The ICE catheter was used to verify absence of any pericardial echo free space. RV and LV function unchanged. All the catheters were removed. The Visigo sheath was exchanged for a short 8Fr sheath. he Heparin was discontinued and 20 mg protamine administered The 11 Surinamese sheath in the left groin was exchanged for a short 8Fr sheath and closed with perclose, hemostasis obtained The right sided sheaths were removed and Perclose used to achieve hemostasis. Patient tolerated the procedure No complications Patient transported out of the lab in stable condition (more content not included)... Normal [facility] SARS-CoV-2 RNA Resp Ql MIKE+p robeon 08-05-2022 SARS-CoV-2 (COVID-19) RNA MIKE+probe Ql (Resp) COVID 19 RESULT: SARS-CoV-2 (Agent of COVID-19) Not Detected by RT-PCR or equivalent method. This test has been authorized by FDA under an Emergency Use Authorization (EUA). [facility] Comment on above: Performed By: #### [id number] #### [facility] CLIA [id number] [address] TYPE + SCREENon 08-05-2022 ABO A Normal [facility] Comment on above: Order Comment: Speci men Type: BLOOD SPECIMEN Ordering Facility: [facility] Address: [address] [place] [address] Performed By: #### T SCR #### [facility] CLIA [id number] [address] HISTORICAL AB SCR STATUS Negative [facility] Comment on above: Order Comment: Speci men Type: BLOOD SPECIMEN Ordering Facility: [facility] Address: [address] [place] [address] Performed By: #### T SCR #### [facility] CLIA [id number] [address] Rh Nom (Bld) Positive [facility] Comment on above: Order Comment: Speci men Type: BLOOD SPECIMEN Ordering Facility: [facility] Address: [address] [place] [address] Performed By: #### T SCR #### [facility] CLIA [id number] [address] TYPE AND SCREEN EXPIRATION 08/08/2022 23:59 [facility] Comment on above: Order Comment: Speci men Type: BLOOD SPECIMEN Ordering Facility: [facility] Address: [address] [address] Performed By: #### T SCR #### [facility] CLIA [id number] [address] Laboratory - CoagulationOrde red By: Dr. Hylton on 07-30-2022 INR Coag (Bld) [Relative time] 2.2 {INR} [facility] Comment on above: Critical Value > 4.0 Whole blood prothrombin time Ordered By: Dr. Hylton on 07-30-2022 PT Coag (Bld) [Time] 25.9 s 11.7-14.9 [facility] Laboratory - CoagulationOrde red By: Dr. Hylton on 07-16-2022 INR Coag (Bld) [Relative time] 2.3 {INR} [facility] Comment on above: Critical Value > 4.0 Whole blood prothrombin time Ordered By: Dr. Hylton on 07-16-2022 PT Coag (Bld) [Time] 26.6 s 11.7-14.9 [facility] CNPNon 07-08-2022 CNPN Telephone (AGCARDPOB ) RICH JAMES I ([id number]) 1955 [facility] Date Time Provider Department 07/08/22 AYLIN MATHEW AGCARDPOPeng During your visit today, we recorded the following information about you: Kianna Craig RN 07/08/2022 2:40 PM Signed Patient is scheduled for EPS w/PVI ablation on 07/18/[address] Mathew. The hospital will call the day before between 2-5pm with your arrival time. Patient should not eat or drink after midnight the day before the procedure. Patient will need a class c driver when released from the hospital. You will stay overnight for observation. Patient should continue to take medications as prescribed the morning of the procedure with just a sip of water unless otherwise instructed. Pt verbalized understanding of the above instructions Pt is getting weekly INR's will continue to monitor. BENIGNO Vaughan RN 07/08/2022 2:53 PM Signed Pt's name has been added to [facility] procedure board. BENIGNO Mensah 07/11/2022 11:57 AM Signed Patient's procedure date changed to 08/05/[address] Mathew. To continue weekly INRs until procedure. Spoke with patient, he verbalized understanding. Dianne Greta Carmen Rust RN 07/11/2022 1:21 PM Signed [place] procedure board updated. BENIGNO Mensah RN 07/17/2022 11:26 AM Addendum 06/25/22- INR- 3.0 07/02/22- INR- 2.6 07/09/22 INR- 2.4 07/16/22- INR- 2.3 Next INR at [facility] is scheduled for 07/23/22. Scheduled for cardioversion on 08/05/[address] Mathew. BENIGNO Tang RN 08/01/2022 10:48 AM Signed INR 07/23/22= 2.3 BENIGNO Mensah RN 08/01/2022 10:56 AM Signed Spoke with with staff at [facility]. 07/30/22 INR 2.2. She will fax result as well. Carmen Rust RN Allergies As of Date: 07/08/2022 Noted Allergy Reaction SEASONAL ALLERGIES 02/18/2020 14 - Other: See Comments Date Reviewed: 05/15/2022 Reviewed by: Aylin Mathew MD - Fully Assessed Reason for Visit: Preparations For Procedures [899] Prescriptions as of 08/01/2022 - fluticasone (FLONASE) 50 mcg/actuation nasal spray DAILY - loratadine (CLARITIN) 10 mg tablet Take 10 mg by mouth once daily. - CPAP - flecainide (TAMBOCOR) 100 mg tablet Take 1 tablet by mouth every 12 hours. - FAMOTIDINE ORAL Take 20 mg by mouth once daily. - umeclidinium-vilantero l (ANORO ELLIPTA) 62.5-25 mcg/actuation inhaler Inhale 1 Puff as instructed once daily. - loratadine-pseudoephed rine ER (CLARITIN-D 24 HOUR) 10-240 mg Tb24 Take 1 tablet by mouth once daily. - simvastatin (ZOCOR) 20 mg tablet Take 1 tablet by mouth daily at bedtime. - metoprolol succinate ER (TOPROL XL) 25 mg 24 hr tablet Take 2 tablets by mouth once daily. Per Dr. Hylton. - warfarin (COUMADIN) 5 mg tablet Take 1 tablet by mouth once daily. Take 1.5 tablets (7.5mg) on Wednesdays and 1 tablet (5mg) al other days as directed. - fluticasone (FLONASE) 50 mcg/actuation nasal spray Use 1-2 Sprays in each nostril once daily. - Miscellaneous Medical Supply (COMPRESSION STOCKINGS) Misc Misc Use as directed (Pressure 30-40mmHg) to Right Leg Dx 453.9 459.81 - GLUCOSAMINE CHONDROITIN MAXSTR 500 MG-400 MG ORAL CAP Problem List As Of Date 07/08/2022 Noted Resolved PURE HYPERCHOLESTEROLEM [E78.00] 03/29/2005 GENERAL OSTEOARTHROSIS [M15.9] 03/29/2005 Coagulopathy (HCC) [D68.9] 04/01/2005 Venous (peripheral) insufficiency [I87.2] 04/01/2005 Embolism and thrombosis (HCC) [I74.9] 09/30/2005 02/18/2020 TOBACCO USE DISORDER [F17.200] 10/14/2006 History of total hip replacement [Z96.649] 07/23/2011 05/08/2012 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] 06/01/2013 11/10/2013 Allergic rhinitis [J30.9] 10/17/2014 Sinus bradycardia [R00.1] 05/19/2017 Chronic thromboembolism of deep veins of lower *06/01/2019 Traumatic complete tear of right rotator cuff [*01/06/2020 Persistent atrial fibrillation (HCC) [I48.19] 04/27/2020 Obesity, Class I, BMI 30-34.9 [E66.9] 04/27/2020 Encounter Status:Closed by KIANNA CRAIG on 07/08/22 [facility] Sangeeta 07-02-2022 CNCO Letter Text [facility] Danyel 06-20-2022 BLAYNEN Telephone (AGCARDPOPeng ) RICH JAMES I ([id number]) 1955 M NFR Date Time Provider Department 06/20/22 AYLIN MATHEW During your visit today, we recorded the following information about you: Aylin Mathew MD 06/20/2022 4:34 PM Signed Patient underwent Cardioversion 06/04/[address] Hylton and initially felt well. Then went back into AF verified on a repeat ECG 5 days later. Discussed with patient and he would like to proceed with an ablation procedure. We discussed the procedure risks benefits efficacy need for GA and overnight stay. Patient to be scheduled for H and P update and PVAI with RFA. He is on coumadin and should continue coumadin Needs to get 3 weekly INRs to confirm that he is well anticoagulated. MD Carmen Rhodes RN 06/21/2022 8:56 AM Signed Left message on [email or web address] requesting pt return call for instructions to check INR weekly. Office phone number provided. BENIGNO Mensah RN 06/24/2022 9:50 AM Signed Spoke with pt. He voices understanding to have INRs done every week. He reports he goes to the [facility]. BENIGNO Mensah 07/04/2022 12:09 PM Signed Spoke with patient regarding upcoming procedure. Possible date of 07/18/[address] Mathew. Patient states that he has had INR checks on 06/25 AND 07/02. I reached out to Dr. Hylton's office and they will fax the results of these. Dianne Rust RN 07/04/2022 1:24 PM Signed Pt's name has been added to [facility] procedure board. Will check for INRs to assure we can move forward. BENIGNO Mensah RN 07/16/2022 8:08 AM Signed MD Dianne Strong 11 days ago Got INR from [facility]. We can move forward. 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 - CPAP - flecainide (TAMBOCOR) 100 mg tablet Take 1 tablet by mouth every 12 hours. - FAMOTIDINE ORAL Take 20 mg by mouth once daily. - umeclidinium-vilantero l (ANORO ELLIPTA) 62.5-25 mcg/actuation inhaler Inhale 1 Puff as instructed once daily. - loratadine-pseudoephed rine ER (CLARITIN-D 24 HOUR) 10-240 mg Tb24 Take 1 tablet by mouth once daily. - simvastatin (ZOCOR) 20 mg tablet Take 1 tablet by mouth daily at bedtime. - metoprolol succinate ER (TOPROL XL) 25 mg 24 hr tablet Take 2 tablets by mouth once daily. Per Dr. Hylton. - warfarin (COUMADIN) 5 mg tablet Take 1 tablet by mouth once daily. Take 1.5 tablets (7.5mg) on Wednesdays and 1 tablet (5mg) al other days as directed. - fluticasone (FLONASE) 50 mcg/actuation nasal spray Use 1-2 Sprays in each nostril once daily. - Miscellaneous Medical Supply (COMPRESSION STOCKINGS) [facility] Use as directed (Pressure 30-40mmHg) to Right Leg Dx 453.9 459.81 - GLUCOSAMINE CHONDROITIN MAXSTR 500 MG-400 MG ORAL CAP Problem List As Of Date 06/20/2022 Noted Resolved PURE HYPERCHOLESTEROLEM [E78.00] 03/29/2005 GENERAL OSTEOARTHROSIS [M15.9] 03/29/2005 Coagulopathy (HCC) [D68.9] 04/01/2005 Venous (peripheral) insufficiency [I87.2] 04/01/2005 Embolism and thrombosis (HCC) [I74.9] 09/30/2005 02/18/2020 TOBACCO USE DISORDER [F17.200] 10/14/2006 History of total hip replacement [Z96.649] 07/23/2011 05/08/2012 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] 06/01/2013 11/10/2013 Allergic rhinitis [J30.9] 10/17/2014 Sinus bradycardia [R00.1] 05/19/2017 Chronic thromboembolism of deep veins of lower *06/01/2019 Traumatic complete tear of right rotator cuff [*01/06/2020 Persistent atrial fibrillation (HCC) [I48.19] 04/27/2020 Obesity, Class I, BMI 30-34.9 [E66.9] 04/27/2020 Encounter Status:Closed by AYLIN MATHEW on 06/20/22 [facility] Absolute lymphocyte countOrd ered By: Dr. Feng on 06-11-2022 Lymphocytes Auto (Unsp spec) [#/Vol] 1.55 10*3/uL 0.83-4.51 [facility] Basophil percentageOrdered B y: Dr. Feng on 06-11-2022 Basophils/100 WBC (Bld) 0.9 % 0-1 [facility] Bilirubin [Mass/Vol] 0.50 mg/dL 0.20-1.00 [facility] Comment on above: For patients on eltr ombopag therapy, use of Dimension [place] TBIL is not recommended. Chloride [Moles/Vol] 109 mmol/L 98-107 [facility] Cholesterol [Mass/Vol] 155 mg/dL <200 [facility] Comment on above: <200 mg/dL Desirable 200-240 mg/dL Borderline >240 mg/dL High Risk Eosinophils/100 WBC (Bld) 3.8 % 0-5 [facility] Glucose [Mass/Vol] 102 mg/dL 74-106 [facility] Comment on above: Fasting Glucose resu lt from 100 to 125 mg/dL suggests IMPAIRED HOMEOSTASIS per A.D.A. criteria. Neutrophils (Bld) [#/Vol] 3.9 10*3/uL 2.0-7.7 [facility] Neutrophils/100 WBC (Bld) 60.5 % 47-70 [facility] Potassium [Moles/Vol] 4.5 mmol/L 3.5-5.1 [facility] Protein [Mass/Vol] 7.3 g/dL 6.4-8.2 [facility] Sodium [Moles/Vol] 140 mmol/L 136-145 [facility] Triglyceride [Mass/Vol] 141 mg/dL <199 [facility] Comment on above: The drugs N-Acetylcy steine and Metamizole may falsely depress this assay.Serum Triglycerides Reference Interval Normal <150 mg/dL Borderline high 150 - 199 mg/dL High 200 - 499 mg/dL Very High > or = 500 mg/dL WBC (Bld) [#/Vol] 6.4 10*3/uL 4.4-11.0 [facility] Blood erythrocytes count (nu mber/volume)Ordered By: Dr. Feng on 06-11-2022 RBC (Bld) [#/Vol] 4.97 10*6/uL 4.6-6.2 [facility] Blood hemoglobin measurement (mass/volume)Ordered By: Dr. Feng on 06-11-2022 Hemoglobin (Bld) [Mass/Vol] 15.3 g/dL 13.0-16.5 [facility] Blood lymphocytes/100 leukoc ytesOrdered By: Dr. Feng on 06-11-2022 Lymphocytes/100 WBC (Bld) 24.3 % 19-41 [facility] Blood monocytes/100 leukocyt esOrdered By: Dr. Feng on 06-11-2022 Monocytes/100 WBC (Bld) 10.2 % 0-10 [facility] Blood platelet mean volumeOr dered By: Dr. Feng on 06-11-2022 Platelet mean volume (Bld) [Entitic vol] 9.6 fL 6.2-12.0 [facility] Determination of erythrocyte mean corpuscular volume (MCV)Ordered By: Dr. Feng on 06-11-2022 MCV (RBC) [Entitic vol] 95.4 fL 80-94 [facility] Hematocrit Auto (Bld) [Volum e fraction]Ordered By: Dr. Feng on 06-11-2022 Hematocrit (Bld) [Volume fraction] 47.4 % 40-54 [facility] INR in Blood by Coagulation assayOrdered By: Dr. Feng on 06-11-2022 INR Coag (Bld) [Relative time] 1.8 {INR} [facility] Laboratory - Chemistry and C hemistry - challengeOrdered By: Dr. Feng on 06-11-2022 ALP [Catalytic activity/Vol] 49 U/L 45-117 [facility] ALT [Catalytic activity/Vol] 30 U/L 16-61 [facility] CO2 [Moles/Vol] 27.0 mmol/L 21.0-32.0 [facility] Globulin (S) [Mass/Vol] 3.8 g/dL 2.2-4.2 [facility] Urea nitrogen/Creatinine [Mass ratio] 15.3 mg/mg 10-20 [facility] Laboratory - CoagulationOrde red By: Dr. Feng on 06-11-2022 PT Coag (PPP) [Time] 20.4 s 11.7-14.9 [facility] Laboratory - Hematology and Cell countsOrdered By: Dr. Feng on 06-11-2022 Erythrocyte distribution width (RBC) [Entitic vol] 50.8 fL 35.1-43.9 [facility] Erythrocyte distribution width (RBC) [Ratio] 14.5 % 11.6-14.6 [facility] Immature granulocytes/100 WBC (Bld) 0.300 % 0.0-0.9 [facility] Comment on above: IG% - Immature Granu locytes (promyelocytes, myelocytes and metamyelocytes) > 1% indicates that a LEFT SHIFT is Present. MCH (RBC) [Entitic mass] 30.8 pg 27.0-32.0 [facility] Nucleated RBC/100 WBC (Bld) [Ratio] 0 % 0-5 [facility] MCHC Auto (RBC) [Mass/Vol]Or dered By: Dr. Feng on 06-11-2022 MCHC (RBC) [Mass/Vol] 32.3 g/dL 32-36 [facility] No Panel InformationOrdered By: Dr. Feng on 06-11-2022 Estimated GFR (MDRD) Amer 75 mL/min >60 [facility] Comment on above: GFR Calc Estimated GFR (MDRD) Non-Af Amer 62 mL/min >60 [facility] Comment on above: Non- GFR Calc Prostate Specific Antigen Screen 0.32 ng/mL 0.00-4.00 [facility] Comment on above: This test was perfor med using the TPSA assay method for the[employer]hers chemistry system. Values obtained with differentassay methods cannot be used interchangably.When changing PSA assays in the course of monitoring apatient, additional sequential testing should be carriedout to confirm baseline values. Thyroid Stimulating Hormone (TSH) 1.66 uIU/mL 0.358-3.74 [facility] Vitamin D 25-Hydroxy 40.8 ng/mL [facility] Comment on above: Vitamin D 25(OH) Sta tus Range Deficiency <20 ng/mL (50nmol/L) Insufficiency 20 - 30 ng/mL (50 - 75 nmol/L) Sufficiency 30 - 100 ng/mL (75 - 250 nmol/L) Toxicity >100 ng/mL (>250 nmol/L) Platelets bldOrdered By: Dr. Feng on 06-11-2022 Platelets (Bld) [#/Vol] 226 10*3/uL 150-450 [facility] Serum or plasma albumin laura urement (mass/volume)Ordered By: Dr. Feng on 06-11-2022 Albumin [Mass/Vol] 3.5 g/dL 3.2-5.0 [facility] Serum or plasma albumin/glob ulin mass ratioOrdered By: Dr. Feng on 06-11-2022 Albumin/Globulin [Mass ratio] 0.9 {ratio} 0.9-2.4 [facility] Serum or plasma calcium laura urement (mass/volume)Ordered By: Dr. Feng on 06-11-2022 Calcium [Mass/Vol] 8.9 mg/dL 8.5-10.1 [facility] Serum or plasma cholesterol in HDL measurement (mass/volume)Ordered By: Dr. Feng on 06-11-2022 Cholesterol in HDL [Mass/Vol] 34 mg/dL >40 [facility] Comment on above: The drugs N-Acetylcy steine and Metamizole may falsely depress this assay. Reference Range HDL <40 mg/dL Low HDL Cholesterol HDL >or= 60 mg/dL High HDL Cholesterol Serum or plasma cholesterol in VLDL measurement (mass/volume)Ordered By: Dr. Feng on 06-11-2022 Cholesterol in VLDL [Mass/Vol] 28 mg/dL 5-40 [facility] Serum or plasma creatinine m easurement (mass/volume)Ordered By: Dr. Feng on 06-11-2022 Creatinine [Mass/Vol] 1.24 mg/dL 0.70-1.30 [facility] Comment on above: The validity of the calculated GFR & GFRAA in patients over 70 years has not been determined. Clinical correlation is essential. Serum or plasma low density lipoprotein (LDL) cholesterol measurement (mass/volume)Ordered By: Dr. Feng on 06-11-2022 Cholesterol in LDL [Mass/Vol] 93 mg/dL 0-130 [facility] Serum or plasma urea nitroge n measurement (mass/volume)Ordered By: Dr. Feng on 06-11-2022 Urea nitrogen [Mass/Vol] 19 mg/dL 7-18 [facility] Thin prep Papanicolaou smear with manual screeningOrdered By: Dr. Feng on 06-11-2022 Thin prep Papanicolaou smear with manual screening 20 U/L 15-37 [facility] Thin prep Papanicolaou smear with manual screening 4 5-15 [facility] Laboratory - CoagulationOrde red By: Dr. Hylton on 06-04-2022 INR Coag (Bld) [Relative time] 2.0 {INR} [facility] Comment on above: Critical Value > 4.0 Whole blood prothrombin time Ordered By: Dr. Hylton on 06-04-2022 PT Coag (Bld) [Time] 23.2 s 11.7-14.9 [facility] Laboratory - Coagulationon 1 07-30-2021 INR Coag (Bld) [Relative time] 2.1 {INR} [facility] Work Phone: Comment on above: Critical Value > 4.0 Whole blood prothrombin time Ordered By: Dr. Hylton on 05-30-2022 PT Coag (Bld) [Time] 24.9 s 11.7-14.9 [facility] Basophil percentageOrdered B y: Dr. Hylton on 05-23-2022 Chloride [Moles/Vol] 108 mmol/L 98-107 [facility] Glucose [Mass/Vol] 98 mg/dL 74-106 [facility] Potassium [Moles/Vol] 4.5 mmol/L 3.5-5.1 [facility] Sodium [Moles/Vol] 139 mmol/L 136-145 [facility] Laboratory - Chemistry and C hemistry - challengeOrdered By: Dr. Hylton on 05-23-2022 CO2 [Moles/Vol] 26.0 mmol/L 21.0-32.0 [facility] Urea nitrogen/Creatinine [Mass ratio] 16.0 mg/mg 10-20 [facility] Laboratory - Coagulationon 1 07-23-2021 PT Coag (PPP) [Time] 24.8 s 11.7-14.9 [facility] Work Phone: No Panel InformationOrdered By: Dr. Hylton on 05-23-2022 Estimated GFR (MDRD) Amer 75 mL/min >60 [facility] Comment on above: GFR Calc Estimated GFR (MDRD) Non-Af Amer 62 mL/min >60 [facility] Comment on above: Non- GFR Calc Serum or plasma calcium laura urement (mass/volume)Ordered By: Dr. Hylton on 05-23-2022 Calcium [Mass/Vol] 8.8 mg/dL 8.5-10.1 [facility] Serum or plasma creatinine m easurement (mass/volume)Ordered By: Dr. Hylton on 05-23-2022 Creatinine [Mass/Vol] 1.25 mg/dL 0.70-1.30 [facility] Comment on above: The validity of the calculated GFR & GFRAA in patients over 70 years has not been determined. Clinical correlation is essential. Serum or plasma urea nitroge n measurement (mass/volume)Ordered By: Dr. Hylton on 05-23-2022 Urea nitrogen [Mass/Vol] 20 mg/dL 7-18 [facility] Thin prep Papanicolaou smear with manual screeningOrdered By: Dr. Hylton on 05-23-2022 Thin prep Papanicolaou smear with manual screening 5 5-15 [facility] CNOVon 05-15-2022 CNOV Office Visit (AGCARDPOB) RICH JAMES I ([id number]) 1955 M NFR Date Time Provider Department 05/15/22 2:20 PM AYLIN MATHEW AGCARDPOB During your visit today, we recorded the following information about you: Pulse Respiration Blood pressure Weight 60/minute 18/minute 108/64 95.3 kg Height 1.778 m Keesha Vargas MA 05/15/2022 3:25 PM Signed Patient denies any cardiac issues or symptoms. Aylin Mathew MD 05/15/2022 3:25 PM Signed Heart and Vascular [facility] SECTION OF CARDIAC PACING and ELECTROPHYSIOLOGY OUTPATIENT VISIT DATE May 15, 2022 OUTPATIENT VISIT TYPE CONSULTATION PRIMARY CARE PHYSICIAN: Magen Ayon [address] [place] [address] REFERRING PHYSICIAN: No referring provider defined for this encounter. CHIEF COMPLAINT: Patient presents with: CARD New Patient Consult: MANAGER OF HOSPITAL REF FOR A-FIB HISTORY OF PRESENT ILLNESS: Mr. James is a 66 year old male who presents today to discuss options for Atrial fibrillation. He has a history of chronic LE venous thromboembolism and Protein C deficiency and is on coumadin. He says that years ago when he had a hip issue he was detected to have lower extremity blood clot and that led to the diagnosis of routine C deficiency and long-term warfarin use. He has never had any blood clots in his lung. In December 2018 at home he had a initial episode of lightheadedness was done on the sofa got up and the next thing he was on the floor with loss of consciousness and injured his right shoulder. The cause of the loss of consciousness was unclear. He then was evaluated by Dr. Hylton and subsequently detected to have paroxysmal atrial fibrillation. He was started on metoprolol for rate control and not for hypertension. In the last few months his atrial fibrillation has become persistent. He says that he is not aware of palpitations all the time but has noticed more easily getting fatigued when he is on his job and usually gets fatigued by the middle of the day. About 2 months ago he had an elective cardioversion and for 4 to 5 days noticed a significant improvement in his energy level. He went out of atrial fibrillation and his symptom of fatigue returned. 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 ETOH - No Family History - Youngest of 6 siblings. No premature CAD. Brother has Blood clots and AF, Sister has COPD. These are his two oldest siblings. Others are . Parents had stroke. Mother had aneurysm. A brother had an aneurysm. Ambulatory monitor 24Hours- Avg HR 94 in Af 51 - 148 Longest RR 1.8s. One 7 beat run of NSVT. ECG 04/11/22 - AF 79bpm QRS 120 QT 394 Qtc 427 ECHO report 03/13/20 -- nl LV size and SF EF 55% Nl RV size and systolic fn. Mild LAE Moderate YARED Mild TR PASP 28 nl MV. AoV is not well visualized. Report of Pharmacological Stress test 03/13/2020 - Gated SPECT EF 41%. Conclusion AF, Myocardial perfusion scan with no evidence of ischemia. Preserved Ejection fraction. 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 Chronic thromboembolism of deep veins of lower leg ([facility]) Right 06/01/2019 Coagulopathy ([facility]) 04/01/2005 Protein C Deficiency GENERAL OSTEOARTHROSIS 03/29/2005 Paroxysmal atrial fibrillation (HCC) PROTEIN DEFIC ANEMIA 03/29/2005 PURE HYPERCHOLESTEROLEM 03/29/2005 Sinus bradycardia 05/19/2017 THROMBOPHLEBITIS NOS 03/29/2005 right leg Tobacco use disorder 10/14/2006 Traumatic complete tear of right rotator cuff 01/06/2020 Venous (peripheral) insufficiency 04/01/2005 PAST SURGICAL HISTORY Procedure Laterality Date ARTHRP ACETBLR/PROX FEM PROSTC AGRFT/ALGRFT Hip replacement, total, Right COLONOSCOPY FLX DX W/COLLJ SPEC WHEN PFRMD 01/07/2014 Colonoscopy COLONOSCOPY FLX DX W/COLLJ SPEC WHEN PFRMD 05/05/2017 10 year repeat NEUROPLASTY AND/TRANSPOS MEDIAN NRV CARPAL TUNNE Carpal tunnel decomp, Right OPEN REPAIR OF ROTATOR CUFF ACUTE November 2010 Rotator cuff repair, Right FAMILY HISTORY Problem Relation Age of Onset Hypertension Mother aneurysm Diabetes Father Cancer Brother liver COPD Brother other (Pulmonary Embolism) Brother blood clots Arthritis Sister osteoarthritis Social History Tobacco Use Smoking status: Every Day Packs/day: 1.00 Years: 40.00 Pack years: 40.00 Types: Cigarettes Smokeless tobacco: Never Substance Use Topics Alcohol use: No Comment: seldom Drug use: No ALLERGIES Allergen Reactions Season (more content not included)... Normal [facility] Laboratory - Coagulationon 1 INR Coag (Bld) [Relative time] 2.2 {INR} [facility] Work Phone: Comment on above: Critical Value > 4.0 Whole blood prothrombin time on 05-15-2022 PT Coag (Bld) [Time] 26.2 s 11.7-14.9 [facility] Work Phone: Laboratory - Coagulationon 0 04-11-2022 INR Coag (Bld) [Relative time] 2.4 {INR} [facility] Work Phone: Comment on above: Critical Value > 4.0 Whole blood prothrombin time on 04-11-2022 PT Coag (Bld) [Time] 27.8 s 11.7-14.9 [facility] Work Phone: Laboratory - Coagulationon 0 04-04-2022 INR Coag (Bld) [Relative time] 2.2 {INR} [facility] Work Phone: Comment on above: Critical Value > 4.0 Whole blood prothrombin time on 04-04-2022 PT Coag (Bld) [Time] 26.3 s 11.7-14.9 [facility] Work Phone: Basophil percentageon 2021 Chloride [Moles/Vol] 107 mmol/L 98-107 [facility] Work Phone: Glucose [Mass/Vol] 104 mg/dL 74-106 [facility] Work Phone: Comment on above: Fasting Glucose resu lt from 100 to 125 mg/dL suggests IMPAIRED HOMEOSTASIS per A.D.A. criteria. Potassium [Moles/Vol] 4.2 mmol/L 3.5-5.1 [facility] Work Phone: Sodium [Moles/Vol] 139 mmol/L 136-145 [facility] Work Phone: Laboratory - Chemistry and C hemistry - challengeon 03-29-2022 CO2 [Moles/Vol] 27.0 mmol/L 21.0-32.0 [facility] Work Phone: Urea nitrogen/Creatinine [Mass ratio] 16.3 mg/mg 10-20 [facility] Work Phone: Laboratory - Coagulationon 0 03-29-2022 PT Coag (PPP) [Time] 25.3 s 11.7-14.9 [facility] Work Phone: No Panel Informationon 03-29 Estimated GFR (MDRD) Amer 72 mL/min >60 [facility] Work Phone: Comment on above: GFR Calc Estimated GFR (MDRD) Non-Af Amer 59 mL/min >60 [facility] Work Phone: Comment on above: Non- GFR Calc Serum or plasma calcium laura urement (mass/volume)on 03-29-2022 Calcium [Mass/Vol] 9.0 mg/dL 8.5-10.1 [facility] Work Phone: Serum or plasma creatinine m easurement (mass/volume)on 03-29-2022 Creatinine [Mass/Vol] 1.29 mg/dL 0.70-1.30 [facility] Work Phone: Comment on above: The validity of the calculated GFR & GFRAA in patients over 70 years has not been determined. Clinical correlation is essential. Serum or plasma urea nitroge n measurement (mass/volume)on 03-29-2022 Urea nitrogen [Mass/Vol] 21 mg/dL 7-18 [facility] Work Phone: Thin prep Papanicolaou smear with manual screeningon 03-29-2022 Thin prep Papanicolaou smear with manual screening 5 5-15 [facility] Work Phone: Laboratory - Coagulationon 0 03-15-2022 INR Coag (Bld) [Relative time] 3.3 {INR} [facility] Work Phone: Comment on above: Critical Value > 4.0 Whole blood prothrombin time on 03-15-2022 PT Coag (Bld) [Time] 36.9 s 11.7-14.9 [facility] Work Phone: Laboratory - Coagulationon 0 12-26-2021 INR Coag (Bld) [Relative time] 2.9 {INR} [facility] Work Phone: Comment on above: Critical Value > 4.0 Whole blood prothrombin time on 12-26-2021 PT Coag (Bld) [Time] 33.3 s 11.7-14.9 [facility] Work Phone: Laboratory - Coagulationon 0 11-26-2021 INR Coag (Bld) [Relative time] 3.0 {INR} [facility] Work Phone: Comment on above: Critical Value > 4.0 Whole blood prothrombin time on 11-26-2021 PT Coag (Bld) [Time] 33.9 s 11.7-14.9 [facility] Work Phone: Laboratory - Coagulationon 0 11-05-2021 INR Coag (Bld) [Relative time] 2.2 {INR} [facility] Work Phone: Comment on above: Critical Value > 4.0 Whole blood prothrombin time on 11-05-2021 PT Coag (Bld) [Time] 25.4 s 11.7-14.9 [facility] Work Phone: Laboratory - Coagulationon 0 10-01-2021 INR Coag (Bld) [Relative time] 3.0 {INR} [facility] Work Phone: Comment on above: Critical Value > 4.0 Whole blood prothrombin time on 10-01-2021 PT Coag (Bld) [Time] 34.4 s 11.7-14.9 [facility] Work Phone: Laboratory - Coagulationon 0 08-31-2021 INR Coag (Bld) [Relative time] 2.4 {INR} [facility] Work Phone: Comment on above: Critical Value > 4.0 Whole blood prothrombin time on 08-31-2021 PT Coag (Bld) [Time] 27.9 s 11.9-14.4 [facility] Work Phone: [facility] [place] [facility] P [facility] Work Phone: No Panel Information [facility] Vital Signs Date Time Vital Sign Value Performing Clinician Facility 03-04-2025 08:10-0400 Body height 177.[address] Marion Feng MD Work Phone: [facility] 03-04-2025 08:10-0400 Body mass index (BMI) [Ratio] 26.3 kg/m2 Dr. Marion Feng MD Work Phone: [facility] 03-04-2025 08:10-0400 Body temperature 98.3 [degF] Dr. Marion Feng MD Work Phone: [facility] 03-04-2025 08:10-0400 Body weight 83.[address] Marion Feng MD Work Phone: [facility] 03-04-2025 08:10-0400 Diastolic blood pressure 62 mm[Hg] Dr. Marion Feng MD Work Phone: [facility] 03-04-2025 08:10-0400 Heart rate 66 /min Dr. Marion Feng MD Work Phone: [facility] 03-04-2025 08:10-0400 SaO2% (BldA) [Mass fraction] 97 % Dr. Marion Feng MD Work Phone: [facility] 03-04-2025 08:10-0400 Systolic blood pressure 128 mm[Hg] Dr. Marion Feng MD Work Phone: [facility] 01-27-2025 10:09-0400 Body height 175.3 cm Eli Richardsoner PLANER SETUP OPERATOR - PERSONAL CAREGIVER Work Phone: [facility] 01-27-2025 10:09-0400 Body mass index (BMI) [Ratio] 27.02 kg/m2 Eli Manuel APRN - PERSONAL CAREGIVER Work Phone: [facility] 01-27-2025 10:09-0400 Body weight 83.01 kg Eli Manuel APRN - PERSONAL CAREGIVER Work Phone: [facility] 01-27-2025 10:09-0400 Diastolic blood pressure 90 mm[Hg] Eli Richardsonfletcher COLBERTN - PERSONAL CAREGIVER Work Phone: [facility] 01-27-2025 10:09-0400 Heart rate 48 /min Eli Manuel APRN - PERSONAL CAREGIVER Work Phone: [facility] 01-27-2025 10:09-0400 Systolic blood pressure 134 mm[Hg] Eli Richardsoner PLANER SETUP OPERATOR - PERSONAL CAREGIVER Work Phone: [facility] 01-14-2025 07:35-0400 Body temperature 97.3 [degF] Sarah Jeremy DO Work Phone: [facility] 01-14-2025 07:35-0400 Diastolic blood pressure 60 mm[Hg] Sarah Jeremy DO Work Phone: [facility] 01-14-2025 07:35-0400 Heart rate 57 /min Sarah Luna DO Work Phone: [facility] 01-14-2025 07:35-0400 Respiratory rate 17 /min Sarah Luna DO Work Phone: [facility] 01-14-2025 07:35-0400 SaO2% (BldA) [Mass fraction] 97 % Sarah Christyer DO Work Phone: [facility] 01-14-2025 07:35-0400 Systolic blood pressure 119 mm[Hg] Sarah Luna DO Work Phone: [facility] 01-11-2025 05:39-0400 Body mass index (BMI) [Ratio] 28.98 kg/m2 Sarah Luna DO Work Phone: [facility] 01-11-2025 05:39-0400 Body weight 89 kg Sarah Christyer DO Work Phone: [facility] 12-23-2024 10:50-0400 Body weight 83.46 kg Sarah Luna DO Work Phone: [facility] 12-23-2024 10:50-0400 Diastolic blood pressure 70 mm[Hg] Sarah Luna DO Work Phone: [facility] 12-23-2024 10:50-0400 Heart rate 47 /min Sarah Luna DO Work Phone: [facility] 12-23-2024 10:50-0400 Systolic blood pressure 130 mm[Hg] Sarah Luna DO Work Phone: [facility] 12-10-2024 07:56-0400 Body height 177.[address] Marion Feng MD Work Phone: [facility] 12-10-2024 07:56-0400 Body mass index (BMI) [Ratio] 27.1 kg/m2 Dr. Marion Feng MD Work Phone: [facility] 12-10-2024 07:56-0400 Body temperature 97.4 [degF] Dr. Marion Feng MD Work Phone: [facility] 12-10-2024 07:56-0400 Body weight 85.[address] Marion Feng MD Work Phone: [facility] 12-10-2024 07:56-0400 Diastolic blood pressure 73 mm[Hg] Dr. Marion Feng MD Work Phone: [facility] 12-10-2024 07:56-0400 Heart rate 45 /min Dr. Marion Feng MD Work Phone: [facility] 12-10-2024 07:56-0400 Respiratory rate 18 /min Dr. Marion Feng MD Work Phone: [facility] 12-10-2024 07:56-0400 SaO2% (BldA) [Mass fraction] 97 % Dr. Marion Feng MD Work Phone: [facility] 12-10-2024 07:56-0400 Systolic blood pressure 120 mm[Hg] Dr. Marion Feng MD Work Phone: [facility] 12-02-2024 07:27-0400 Body mass index (BMI) [Ratio] 26.6 kg/m2 Dr. Marion Feng MD Work Phone: [facility] 12-02-2024 07:27-0400 Body temperature 97.5 [degF] Dr. Marion Feng MD Work Phone: [facility] 12-02-2024 07:27-0400 Body weight 84.[address] Marion Feng MD Work Phone: [facility] 12-02-2024 07:27-0400 Diastolic blood pressure 82 mm[Hg] Dr. Marion Feng MD Work Phone: [facility] 12-02-2024 07:27-0400 Heart rate 52 /min Dr. Marion Feng MD Work Phone: [facility] 12-02-2024 07:27-0400 Respiratory rate 18 /min Dr. Marion Feng MD Work Phone: [facility] 12-02-2024 07:27-0400 SaO2% (BldA) [Mass fraction] 99 % Dr. Marion Feng MD Work Phone: [facility] 12-02-2024 07:27-0400 Systolic blood pressure 144 mm[Hg] Dr. Marion Feng MD Work Phone: [facility] 09-18-2024 03:58-0500 Body mass index (BMI) [Ratio] 29.7 kg/m2 Dr. Marion Feng MD Work Phone: [facility] 07-21-2024 04:18-0500 Body mass index (BMI) [Ratio] 29.7 kg/m2 Dr. Marion Feng MD Work Phone: [facility] 04-20-2024 03:45-0400 Body mass index (BMI) [Ratio] 29.7 kg/m2 Dr. Marion Feng MD Work Phone: [facility] 10-18-2023 22:13-0400 Body mass index (BMI) [Ratio] 29.7 kg/m2 [facility] 09-18-2023 22:32-0500 Body mass index (BMI) [Ratio] 29.7 kg/m2 [facility] 08-20-2023 22:00-0500 Body mass index (BMI) [Ratio] 29.7 kg/m2 Dr. Marion Feng Work Phone: [facility] 06-20-2023 03:31-0500 Body mass index (BMI) [Ratio] 29.7 kg/m2 Dr. Marion Feng Work Phone: [facility] 06-09-2023 08:01-0500 Body height 177.[address] Marion Feng Work Phone: [facility] 06-09-2023 08:01-0500 Body mass index (BMI) [Ratio] 29.5 kg/m2 Dr. Marion Feng Work Phone: [facility] 06-09-2023 08:01-0500 Body temperature 98.1 [degF] Dr. Marion Feng Work Phone: [facility] 06-09-2023 08:01-0500 Body weight 93.[address] Marion Feng Work Phone: [facility] 06-09-2023 08:01-0500 Diastolic blood pressure 73 mm[Hg] Dr. Marion Feng Work Phone: [facility] 06-09-2023 08:01-0500 Heart rate 61 /min Dr. Marion Feng Work Phone: [facility] 06-09-2023 08:01-0500 Respiratory rate 16 /min Dr. Marion Feng Work Phone: [facility] 06-09-2023 08:01-0500 SaO2% (BldA) [Mass fraction] 97 % Dr. Marion Feng Work Phone: [facility] 06-09-2023 08:01-0500 Systolic blood pressure 114 mm[Hg] Dr. Marion Feng Work Phone: [facility] 05-05-2023 07:54-0400 Body height 177.8 cm Aylin Mathew MD Work Phone: [facility] 05-05-2023 07:54-0400 Body weight 90.72 kg Aylin Mathew MD Work Phone: [facility] 05-05-2023 07:54-0400 Diastolic blood pressure 66 mm[Hg] Aylin Mathew MD Work Phone: [facility] 05-05-2023 07:54-0400 Heart rate 52 /min Aylin Mathew MD Work Phone: [facility] 05-05-2023 07:54-0400 SaO2% (BldA) [Mass fraction] 98 % Aylin Mathew MD Work Phone: [facility] 05-05-2023 07:54-0400 Systolic blood pressure 115 mm[Hg] Aylin Mathew MD Work Phone: [facility] 04-20-2023 02:04-0400 Body mass index (BMI) [Ratio] 29.7 kg/m2 Dr. Marion Feng Work Phone: [facility] 04-03-2023 10:02-0400 Body height 177.[address] Marion Feng Work Phone: [facility] 04-03-2023 10:02-0400 Body mass index (BMI) [Ratio] 28.7 kg/m2 Dr. Marion Feng Work Phone: [facility] 04-03-2023 10:02-0400 Body weight 90.[address] Marion Feng Work Phone: [facility] 04-03-2023 10:02-0400 Diastolic blood pressure 70 mm[Hg] Dr. Marion Feng Work Phone: [facility] 04-03-2023 10:02-0400 Heart rate 50 /min Dr. Marion Feng Work Phone: [facility] 04-03-2023 10:02-0400 Respiratory rate 16 /min Dr. Marion Feng Work Phone: [facility] 04-03-2023 10:02-0400 Systolic blood pressure 120 mm[Hg] Dr. Marion Feng Work Phone: [facility] 02-18-2023 00:32-0400 Body mass index (BMI) [Ratio] 29.7 kg/m2 Dr. Marion Feng Work Phone: [facility] 01-27-2023 08:37-0400 Body weight 91.17 kg Nikita Ortiz APRN.PERSONAL CAREGIVER Work Phone: [facility] 01-27-2023 08:37-0400 Diastolic blood pressure 64 mm[Hg] Nikita Ortiz APRN.PERSONAL CAREGIVER Work Phone: [facility] 01-27-2023 08:37-0400 Heart rate 55 /min Nikita Ortiz APRN.PERSONAL CAREGIVER Work Phone: [facility] 01-27-2023 08:37-0400 SaO2% (BldA) [Mass fraction] 96 % Nikita Ortiz APRN.PERSONAL CAREGIVER Work Phone: [facility] 01-27-2023 08:37-0400 Systolic blood pressure 116 mm[Hg] Nikita Ortiz APRN.PERSONAL CAREGIVER Work Phone: [facility] 01-17-2023 21:59-0400 Body mass index (BMI) [Ratio] 29.7 kg/m2 Dr. Marion Feng Work Phone: [facility] 01-16-2023 06:13-0400 Body height 177.[address] Marion Feng Work Phone: [facility] 01-16-2023 06:13-0400 Body mass index (BMI) [Ratio] 29.2 kg/m2 Dr. Marion Feng Work Phone: [facility] 01-16-2023 06:13-0400 Body temperature 98.4 [degF] Dr. Marion Feng Work Phone: [facility] 01-16-2023 06:13-0400 Body weight 92.[address] Marion Feng Work Phone: [facility] 01-16-2023 06:13-0400 Diastolic blood pressure 66 mm[Hg] Dr. Marion Feng Work Phone: [facility] 01-16-2023 06:13-0400 Heart rate 54 /min Dr. Marion Feng Work Phone: [facility] 01-16-2023 06:13-0400 Respiratory rate 18 /min Dr. Marion Feng Work Phone: [facility] 01-16-2023 06:13-0400 SaO2% (BldA) [Mass fraction] 97 % Dr. Marion Feng Work Phone: [facility] 01-16-2023 06:13-0400 Systolic blood pressure 120 mm[Hg] Dr. Marion Feng Work Phone: [facility] 2022 08:45-0400 Body mass index (BMI) [Ratio] 29.7 kg/m2 Dr. Marion Feng Work Phone: [facility] 12-02-2022 08:04-0400 Body height 177.[address] Marion Feng Work Phone: [facility] 12-02-2022 08:04-0400 Body mass index (BMI) [Ratio] 30 kg/m2 Dr. Marion Feng Work Phone: [facility] 12-02-2022 08:04-0400 Body temperature 98.2 [degF] Dr. Marion Feng Work Phone: [facility] 12-02-2022 08:04-0400 Body weight 94.[address] Marion Feng Work Phone: [facility] 12-02-2022 08:04-0400 Diastolic blood pressure 65 mm[Hg] Dr. Marion Feng Work Phone: [facility] 12-02-2022 08:04-0400 Heart rate 51 /min Dr. Marion Feng Work Phone: [facility] 12-02-2022 08:04-0400 Respiratory rate 18 /min Dr. Marion Feng Work Phone: [facility] 12-02-2022 08:04-0400 SaO2% (BldA) [Mass fraction] 96 % Dr. Marion Feng Work Phone: [facility] 12-02-2022 08:04-0400 Systolic blood pressure 120 mm[Hg] Dr. Marion Feng Work Phone: [facility] 10-19-2022 00:11-0400 Body mass index (BMI) [Ratio] 29.7 kg/m2 Dr. Marion Feng Work Phone: [facility] 10-03-2022 09:06-0400 Body height 177.[address] Marion Feng Work Phone: [facility] 10-03-2022 09:06-0400 Body mass index (BMI) [Ratio] 30.7 kg/m2 Dr. Marion Feng Work Phone: [facility] 10-03-2022 09:06-0400 Body weight 97.[address] Marion Feng Work Phone: [facility] 10-03-2022 09:06-0400 Diastolic blood pressure 66 mm[Hg] Dr. Marion Feng Work Phone: [facility] 10-03-2022 09:06-0400 Heart rate 52 /min Dr. Marion Feng Work Phone: [facility] 10-03-2022 09:06-0400 Respiratory rate 18 /min Dr. Marion Feng Work Phone: [facility] 10-03-2022 09:06-0400 SaO2% (BldA) [Mass fraction] 93 % Dr. Marion Feng Work Phone: [facility] 10-03-2022 09:06-0400 Systolic blood pressure 120 mm[Hg] Dr. Marion Feng Work Phone: [facility] 09-17-2022 20:02-0500 Body mass index (BMI) [Ratio] 29.7 kg/m2 Dr. Marion Feng Work Phone: [facility] 08-21-2022 08:11-0500 Body mass index (BMI) [Ratio] 29.7 kg/m2 Dr. Marion Feng Work Phone: [facility] 07-21-2022 02:05-0500 Body mass index (BMI) [Ratio] 29.7 kg/m2 Dr. Marion Feng Work Phone: [facility] 07-17-2022 06:52-0500 Body height 177.[address] Marion Feng Work Phone: [facility] 07-17-2022 06:52-0500 Body mass index (BMI) [Ratio] 31.1 kg/m2 Dr. Marion Feng Work Phone: [facility] 07-17-2022 06:52-0500 Body temperature 95.6 [degF] Dr. Marion Feng Work Phone: [facility] 07-17-2022 06:52-0500 Body weight 98.[address] Marion Feng Work Phone: [facility] 07-17-2022 06:52-0500 Diastolic blood pressure 62 mm[Hg] Dr. Marion Feng Work Phone: [facility] 07-17-2022 06:52-0500 Heart rate 81 /min Dr. Marion Feng Work Phone: [facility] 07-17-2022 06:52-0500 Respiratory rate 18 /min Dr. Marion Feng Work Phone: [facility] 07-17-2022 06:52-0500 SaO2% (BldA) [Mass fraction] 95 % Dr. Marion Feng Work Phone: [facility] 07-17-2022 06:52-0500 Systolic blood pressure 103 mm[Hg] Dr. Marion Feng Work Phone: [facility] 06-28-2022 09:37-0500 Body mass index (BMI) [Ratio] 31.2 kg/m2 Dr. Marion Feng Work Phone: [facility] 06-28-2022 09:37-0500 Body weight 98.[address] Marion Feng Work Phone: [facility] 06-28-2022 09:37-0500 Diastolic blood pressure 84 mm[Hg] Dr. Marion Feng Work Phone: [facility] 06-28-2022 09:37-0500 Heart rate 74 /min Dr. Marion Feng Work Phone: [facility] 06-28-2022 09:37-0500 Respiratory rate 18 /min Dr. Marion Feng Work Phone: [facility] 06-28-2022 09:37-0500 SaO2% (BldA) [Mass fraction] 98 % Dr. Marion Feng Work Phone: [facility] 06-28-2022 09:37-0500 Systolic blood pressure 131 mm[Hg] Dr. Marion Feng Work Phone: [facility] 06-19-2022 23:04-0500 Body mass index (BMI) [Ratio] 29.7 kg/m2 Dr. Marion Feng Work Phone: [facility] 06-12-2022 08:02-0500 Body temperature 98.1 [degF] Dr. Marion Feng Work Phone: [facility] 06-12-2022 08:02-0500 Body weight 99.[address] Marion Feng Work Phone: [facility] 06-12-2022 08:02-0500 Diastolic blood pressure 75 mm[Hg] Dr. Marion Feng Work Phone: [facility] 06-12-2022 08:02-0500 Heart rate 67 /min Dr. Marion Feng Work Phone: [facility] 06-12-2022 08:02-0500 Respiratory rate 16 /min Dr. Marion Feng Work Phone: [facility] 06-12-2022 08:02-0500 SaO2% (BldA) [Mass fraction] 97 % Dr. Marion Feng Work Phone: [facility] 06-12-2022 08:02-0500 Systolic blood pressure 131 mm[Hg] Dr. Marion Feng Work Phone: [facility] 06-04-2022 10:58-0500 Body height 177.[address] Marion Feng Work Phone: [facility] Work Phone: 06-04-2022 10:58-0500 Body weight 95.[address] Marion Feng Work Phone: [facility] 06-03-2022 08:48-0500 Body mass index (BMI) [Ratio] 31.1 kg/m2 Dr. Marion Feng Work Phone: [facility] 05-21-2022 09:50-0400 Body mass index (BMI) [Ratio] 29.7 kg/m2 Dr. Marion Feng Work Phone: [facility] 05-15-2022 14:30-0400 Body height 177.8 cm Aylin Mathew MD Work Phone: [facility] 05-15-2022 14:30-0400 Body weight 95.25 kg Aylin Mathew MD Work Phone: [facility] 05-15-2022 14:30-0400 Diastolic blood pressure 64 mm[Hg] Aylin Mathew MD Work Phone: [facility] 05-15-2022 14:30-0400 Heart rate 60 /min Aylin Mathew MD Work Phone: [facility] 05-15-2022 14:30-0400 Respiratory rate 18 /min Aylin Mathew MD Work Phone: [facility] 05-15-2022 14:30-0400 SaO2% (BldA) [Mass fraction] 96 % Aylin Mathew MD Work Phone: [facility] 05-15-2022 14:30-0400 Systolic blood pressure 108 mm[Hg] Aylin Mathew MD Work Phone: [facility] 04-19-2022 21:21-0400 Body mass index (BMI) [Ratio] 29.7 kg/m2 Dr. Marion Feng Work Phone: [facility] Work Phone: 04-04-2022 11:13-0400 Body height 177.[address] Marion Feng Work Phone: [facility] Work Phone: 04-04-2022 11:13-0400 Body weight 95.[address] Marion Feng Work Phone: [facility] Work Phone: 04-03-2022 07:38-0400 Body mass index (BMI) [Ratio] 30.2 kg/m2 Dr. Marion Feng Work Phone: [facility] Work Phone: 03-29-2022 09:51-0400 Body mass index (BMI) [Ratio] 30.2 kg/m2 Dr. Marion Feng Work Phone: [facility] Work Phone: 03-29-2022 09:51-0400 Body weight 95.[address] Marion Feng Work Phone: [facility] Work Phone: 03-29-2022 09:51-0400 Diastolic blood pressure 69 mm[Hg] Dr. Marion Feng Work Phone: [facility] Work Phone: 03-29-2022 09:51-0400 Heart rate 51 /min Dr. Marion Feng Work Phone: [facility] Work Phone: 03-29-2022 09:51-0400 Respiratory rate 18 /min Dr. Marion Feng Work Phone: [facility] Work Phone: 03-29-2022 09:51-0400 Systolic blood pressure 107 mm[Hg] Dr. Marion Feng Work Phone: [facility] Work Phone: 03-20-2022 22:52-0400 Body mass index (BMI) [Ratio] 29.7 kg/m2 Dr. Marion Feng Work Phone: [facility] Work Phone: 03-08-2022 13:42-0400 Body height 177.[address] Marion Feng Work Phone: [facility] Work Phone: 03-08-2022 13:42-0400 Body mass index (BMI) [Ratio] 30.8 kg/m2 Dr. Marion Feng Work Phone: [facility] Work Phone: 03-08-2022 13:42-0400 Body weight 97.[address] Marion Feng Work Phone: [facility] Work Phone: 03-08-2022 13:42-0400 Diastolic blood pressure 62 mm[Hg] Dr. Marion Feng Work Phone: [facility] Work Phone: 03-08-2022 13:42-0400 Heart rate 82 /min Dr. Marion Feng Work Phone: [facility] Work Phone: 03-08-2022 13:42-0400 Respiratory rate 16 /min Dr. Marion Feng Work Phone: [facility] Work Phone: 03-08-2022 13:42-0400 Systolic blood pressure 111 mm[Hg] Dr. Marion Feng Work Phone: [facility] Work Phone: 01-18-2022 06:55-0400 Body mass index (BMI) [Ratio] 29.7 kg/m2 Dr. Marion Feng Work Phone: [facility] Work Phone: 01-16-2022 05:47-0400 Body height 177.[address] Marion Feng Work Phone: [facility] Work Phone: 01-16-2022 05:47-0400 Body mass index (BMI) [Ratio] 30.8 kg/m2 Dr. Marion Feng Work Phone: [facility] Work Phone: 01-16-2022 05:47-0400 Body temperature 98.2 [degF] Dr. Marion Feng Work Phone: [facility] Work Phone: 01-16-2022 05:47-0400 Body weight 97.[address] Marion Feng Work Phone: [facility] Work Phone: 01-16-2022 05:47-0400 Diastolic blood pressure 87 mm[Hg] Dr. Marion Feng Work Phone: [facility] Work Phone: 01-16-2022 05:47-0400 Heart rate 98 /min Dr. Marion Feng Work Phone: [facility] Work Phone: 01-16-2022 05:47-0400 Respiratory rate 17 /min Dr. Marion Feng Work Phone: [facility] Work Phone: 01-16-2022 05:47-0400 SaO2% (BldA) [Mass fraction] 97 % Dr. Marion Feng Work Phone: [facility] Work Phone: 01-16-2022 05:47-0400 Systolic blood pressure 116 mm[Hg] Dr. Marion Feng Work Phone: [facility] Work Phone: 12-18-2021 20:37-0400 Body mass index (BMI) [Ratio] 29.7 kg/m2 Dr. Marion Feng Work Phone: [facility] Work Phone: 11-28-2021 08:04-0400 Body mass index (BMI) [Ratio] 30.9 kg/m2 Dr. Marion Feng Work Phone: [facility] Work Phone: 11-28-2021 08:04-0400 Body temperature 97.2 [degF] Dr. Marion Feng Work Phone: [facility] Work Phone: 11-28-2021 08:04-0400 Body weight 97.[address] Marion Feng Work Phone: [facility] Work Phone: 11-28-2021 08:04-0400 Diastolic blood pressure 60 mm[Hg] Dr. Marion Feng Work Phone: [facility] Work Phone: 11-28-2021 08:04-0400 Heart rate 51 /min Dr. Marion Feng Work Phone: [facility] Work Phone: 11-28-2021 08:04-0400 Respiratory rate 16 /min Dr. Marion Feng Work Phone: [facility] Work Phone: 11-28-2021 08:04-0400 SaO2% (BldA) [Mass fraction] 99 % Dr. Marion Feng Work Phone: [facility] Work Phone: 11-28-2021 08:04-0400 Systolic blood pressure 110 mm[Hg] Dr. Marion Feng Work Phone: [facility] Work Phone: 11-28-2021 08:04-0400 Body height 177.[address] Marion Feng Work Phone: [facility] Work Phone: 11-28-2021 08:04-0400 Body mass index (BMI) [Ratio] 30.9 kg/m2 Dr. Marion Feng Work Phone: [facility] Work Phone: 11-28-2021 08:04-0400 Body temperature 97.2 [degF] Dr. Marion Feng Work Phone: [facility] Work Phone: 11-28-2021 08:04-0400 Body weight 97.[address] Marion Feng Work Phone: [facility] Work Phone: 11-28-2021 08:04-0400 Diastolic blood pressure 60 mm[Hg] Dr. Marion Feng Work Phone: [facility] Work Phone: 11-28-2021 08:04-0400 Heart rate 51 /min Dr. Marion Feng Work Phone: [facility] Work Phone: 11-28-2021 08:04-0400 Respiratory rate 16 /min Dr. Marion Feng Work Phone: [facility] Work Phone: 11-28-2021 08:04-0400 SaO2% (BldA) [Mass fraction] 99 % Dr. Marion Feng Work Phone: [facility] Work Phone: 11-28-2021 08:04-0400 Systolic blood pressure 110 mm[Hg] Dr. Marion Feng Work Phone: [facility] Work Phone: 11-18-2021 03:03-0400 Body mass index (BMI) [Ratio] 29.7 kg/m2 Dr. Marion Feng Work Phone: [facility] Work Phone: 10-01-2021 10:35-0400 Body mass index (BMI) [Ratio] 31.4 kg/m2 Dr. Marion Feng Work Phone: [facility] Work Phone: 10-01-2021 10:35-0400 Body temperature 98.6 [degF] Dr. Marion Feng Work Phone: [facility] Work Phone: 10-01-2021 10:35-0400 Body weight 99.[address] Marion Feng Work Phone: [facility] Work Phone: 10-01-2021 10:35-0400 Diastolic blood pressure 73 mm[Hg] Dr. Marion Feng Work Phone: [facility] Work Phone: 10-01-2021 10:35-0400 Heart rate 79 /min Dr. Marion Feng Work Phone: [facility] Work Phone: 10-01-2021 10:35-0400 Respiratory rate 17 /min Dr. Marion Feng Work Phone: [facility] Work Phone: 10-01-2021 10:35-0400 SaO2% (BldA) [Mass fraction] 98 % Dr. Marion Feng Work Phone: [facility] Work Phone: 10-01-2021 10:35-0400 Systolic blood pressure 110 mm[Hg] Dr. Marion Feng Work Phone: [facility] Work Phone: 10-01-2021 10:35-0400 Body height 177.[address] Marion Feng Work Phone: [facility] Work Phone: 10-01-2021 10:35-0400 Body mass index (BMI) [Ratio] 31.4 kg/m2 Dr. Marion Feng Work Phone: [facility] Work Phone: 10-01-2021 10:35-0400 Body temperature 98.6 [degF] Dr. Marion Feng Work Phone: [facility] Work Phone: 10-01-2021 10:35-0400 Body weight 99.[address] Marion Feng Work Phone: [facility] Work Phone: 10-01-2021 10:35-0400 Diastolic blood pressure 73 mm[Hg] Dr. Marion Feng Work Phone: [facility] Work Phone: 10-01-2021 10:35-0400 Heart rate 79 /min Dr. Marion Feng Work Phone: [facility] Work Phone: 10-01-2021 10:35-0400 Respiratory rate 17 /min Dr. Marion Feng Work Phone: [facility] Work Phone: 10-01-2021 10:35-0400 SaO2% (BldA) [Mass fraction] 98 % Dr. Marion Feng Work Phone: [facility] Work Phone: 10-01-2021 10:35-0400 Systolic blood pressure 110 mm[Hg] Dr. Marion Feng Work Phone: [facility] Work Phone: 09-18-2021 00:09-0500 Body mass index (BMI) [Ratio] 29.7 kg/m2 Dr. Marion Feng Work Phone: [facility] Work Phone: 09-17-2021 23:09-0500 Body mass index (BMI) [Ratio] 29.7 kg/m2 Dr. Marion Feng Work Phone: [facility] Work Phone: 09-07-2021 13:25-0500 Body weight 98.[address] Marion Feng Work Phone: [facility] Work Phone: 09-07-2021 13:25-0500 Diastolic blood pressure 61 mm[Hg] Dr. Marion Feng Work Phone: [facility] Work Phone: 09-07-2021 13:25-0500 Heart rate 48 /min Dr. Marion Feng Work Phone: [facility] Work Phone: 09-07-2021 13:25-0500 Respiratory rate 18 /min Dr. Marion Feng Work Phone: [facility] Work Phone: 09-07-2021 13:25-0500 Systolic blood pressure 98 mm[Hg] Dr. Marion Feng Work Phone: [facility] Work Phone: 07-20-2021 23:09-0500 Body mass index (BMI) [Ratio] 29.7 kg/m2 Dr. Marion Feng Work Phone: [facility] Work Phone: 01-16-2021 11:25-0400 Body mass index (BMI) [Ratio] 29.7 kg/m2 Dr. Marion Feng Work Phone: [facility] Work Phone: 08-30-2020 08:55-0500 Body mass index (BMI) [Ratio] 29.8 kg/m2 Dr. Marion Feng Work Phone: [facility] Work Phone: NEGATED: Highlighted [id number] 12:35-0500 BMI (Body Mass Index) 30.52 kg/m2 [facility] Work Phone: NEGATED: Highlighted [id number] 12:35-0500 Body weight 90.72 kg Keturah Degarmo RT [facility] Work Phone: NEGATED: Highlighted [id number] 12:35-0500 Body weight 91 kg Keturah Degarmo RT [facility] Work Phone: NEGATED: Highlighted [id number] 12:35-0500 Height 172.72 cm Keturah Degarmo RT [facility] Work Phone: NEGATED: Highlighted [id number] 12:35-0500 Height 173 cm Keturah Degarmo RT [facility] Work Phone: Encounters Encounter Date Encounter Type Care Provider Facility Start: 03-04-2025 End: 03-04-[address] Marion Feng MD Work Phone: [facility] Start: 03-04-2025 End: 03-04-2025 Patient encounter procedure Renny Mora PA [facility] Work Phone: Start: 01-27-2025 End: 01-27-2025 Postop follow up visit related to original px Eli Manuel PLANER SETUP OPERATOR - PERSONAL CAREGIVER Work Phone: [facility] - [place] Comment on above: Lung nodule (Primary Dx) Start: 01-27-2025 End: 01-27-2025 ambulatory ELI MANUEL [facility] Start: 01-18-2025 ambulatory Marion Feng Facility :[facility] Start: 01-17-2025 End: 01-17-[address] Marion Feng MD Work Phone: -Laboratory Start: 01-17-2025 End: 01-17-2025 Discharged Recurring Kassy Stack PA -Laboratory Work Phone: Start: 01-10-2025 End: 01-14-2025 Evaluation and management of inpatient Sarah Luna DO Work Phone: [facility] Surgical Progressive Care Unit PCU H6 Comment on above: S/P thoracotomy (Mignon dianne Dx); Lung nodule; Solitary pulmonary nodule Start: 12-30-2024 ambulatory Marion Feng Facility :[facility] Start: 12-29-2024 End: 12-29-2024 ambulatory SARAH [facility] Start: 12-29-2024 End: 12-29-2024 Encounter for other preprocedural examination SARAH [facility] Start: 12-24-2024 End: 12-24-2024 Admission to same day surgery center Dong Adam PLANER SETUP OPERATOR - PERSONAL CAREGIVER Work Phone: [facility] [place] Comment on above: Lung nodule (Primary Dx) Start: 12-24-2024 End: 12-24-2024 ambulatory Dong Adam PLANER SETUP OPERATOR - PERSONAL CAREGIVER Work Phone: [facility] Thoracic [facility] - [place] Start: 12-24-2024 End: 12-24-2024 Telephone encounter Sarah Luna DO Work Phone: [facility] - [place] Comment on above: Surgery Scheduling Start: 12-23-2024 End: 12-23-2024 Office consultation new/estab patient 60 min Sarah Christyfletcher KAY Work Phone: [facility] [place] Comment on above: Right upper lobe pul monary nodule (Primary Dx); Chronic obstructive pulmonary disease, unspecified COPD type (HCC); Paroxysmal atrial fibrillation (HCC); 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); Warfarin anticoagulation; Former smoker Start: 12-23-2024 End: 12-23-2024 ambulatory SARAH [facility] Start: 12-10-2024 End: 12-10-2024 Patient encounter procedure Kylie SALAZARC -[facility] Work Phone: Start: 12-10-2024 End: 12-10-2024 ambulatory Marion Feng Facility:[facility] Start: 12-07-2024 End: 12-07-[address] Marion Feng MD Work Phone: [facility] Work Phone: Start: 12-07-2024 End: 12-07-2024 Patient encounter procedure Kylie Motta MANAGER OF HOSPITAL-C -[facility] Start: 12-07-2024 End: 12-07-2024 ambulatory Kylie Motta MANAGER OF HOSPITAL Facility:[facility] Start: 12-02-2024 End: 12-02-2024 Patient encounter procedure Kylie Motta NP-C -[facility] Work Phone: Start: 12-02-2024 End: 12-02-[address] Marion Feng MD Work Phone: [facility] Work Phone: Start: 11-18-2024 ambulatory Hi Swanson MANAGER OF HOSPITAL Facility :[facility] Start: 11-17-2024 End: 11-17-2024 ambulatory Hi Swanson MANAGER OF HOSPITAL Facility:[facility] Start: 11-17-2024 End: 11-17-[address] Jose Hylton MD -Laboratory Work Phone: Start: 11-17-2024 End: 11-17-2024 Patient encounter procedure Kylie Motta MANAGER OF HOSPITAL-C -Cat Scan [facility] Work Phone: Start: 11-17-2024 End: 11-17-2024 ambulatory Kylei Motta MANAGER OF HOSPITAL Facility:[facility] Start: 10-19-[address] Jose Hylton MD -Laboratory Work Phone: Start: 10-19-2024 End: 10-19-[address] Marion Feng MD Work Phone: [facility] Work Phone: Start: 10-19-2024 End: 10-19-2024 Patient encounter procedure Kylie Motta NP-C -Pulmonary Services/Neurology Work Phone: Start: 10-19-2024 End: 10-19-2024 ambulatory Kylie Motta MANAGER OF HOSPITAL Facility:[facility] Start: 09-02-2024 End: 09-17-[address] Jose Hylton MD -Laboratory Work Phone: Start: 09-02-2024 End: 09-17-2024 ambulatory Hi Swanson MANAGER OF HOSPITAL Facility:[facility] Start: 07-15-2024 End: 07-15-[address] Jose Hylton MD -Laboratory Work Phone: Start: 07-15-2024 End: 07-15-2024 ambulatory Hi Swanson MANAGER OF HOSPITAL Facility:[facility] Start: 04-19-2024 End: 04-19-2024 ambulatory Hi Swanson MANAGER OF HOSPITAL Facility:[facility] Start: 03-15-2024 End: 03-15-2024 ambulatory Marion Feng Facility:[facility] Start: 11-17-2023 End: 11-18-2023 Discharged Recurring [facility]Labor[facility] Work Phone: Start: 11-17-2023 End: 11-18-2023 ambulatory [facility] Work Phone: Start: 11-17-2023 End: 11-17-2023 Patient encounter procedure [facility]-Cat Scan, [facility] Work Phone: Start: 10-03-2023 End: 10-18-2023 ambulatory [facility] Work Phone: Start: 10-03-2023 End: 10-18-2023 Discharged Recurring [facility]Labor[facility] Work Phone: Start: 08-25-2023 End: 09-18-[address] Marion Feng Work Phone: [facility] Work Phone: Start: 08-25-2023 End: 09-18-[address] Marion Feng Work Phone: [facility]-Laboratory Work Phone: Start: 07-22-2023 End: 07-22-[address] Marion Feng Work Phone: [facility] Work Phone: Start: 07-22-2023 End: 07-22-[address] [facility] Start: 06-09-2023 End: 06-09-[address] Marion Feng Work Phone: [facility] [place] Work Phone: Start: 05-23-2023 End: 06-19-[address] Marion [facility] Start: 05-05-2023 End: 05-05-2023 ambulatory AYLIN MATHEW Facility:[place] [facility] Start: 05-05-2023 End: 05-05-2023 Patient encounter procedure Aylin Mathew MD Work Phone: [facility] Cardiology [place] Comment on above: Persistent atrial fi brillation (HCC) (Primary Dx) Start: 04-03-2023 End: 04-03-[address] Marion Feng Work Phone: [facility] Work Phone: Start: 04-02-2023 End: 04-02-[address] Marion Feng Work Phone: [facility] Work Phone: Start: 04-02-2023 End: 04-02-[address] Marion Feng [facility] Start: 02-06-2023 End: 02-17-[address] Marion [facility] Start: 01-27-2023 End: 01-27-2023 ambulatory NIKITA ORTIZ Facility:[place] [facility] Start: 01-27-2023 End: 01-27-2023 Patient encounter procedure Nikita Linardi PLANER SETUP OPERATOR.PERSONAL CAREGIVER Work Phone: [facility] Cardiology [place] Comment on above: Persistent atrial fi brillation (HCC) (Primary Dx); Status post catheter ablation of atrial fibrillation; Sinus bradycardia; Obesity, Class I, BMI 30-34.9; At risk for stroke Start: 01-16-2023 End: 01-16-[address] Marion Feng Work Phone: [facility] Work Phone: Start: 01-16-2023 End: 01-16-[address] Marion Feng Work Phone: [facility]-Laboratory Work Phone: Start: 01-16-2023 End: 01-16-[address] Marion Feng Work Phone: [facility]-Pulmonary Medicine [facility] Work Phone: Start: 12-02-2022 End: 12-18-[address] Marion Feng Work Phone: [facility] Work Phone: Start: 12-02-2022 End: 12-18-[address] aMrion Feng Work Phone: [facility]-Laboratory Start: 12-02-2022 End: 12-02-[address] Marion Feng Work Phone: [facility] Start: 11-20-2022 Telephone encounter Aylin Mathew MD Work Phone: [facility] Cardiology [place] Comment on above: Patient Update Start: 11-19-2022 Telephone encounter Aylin Mathew MD Work Phone: [facility] Cardiology [place] Comment on above: Results; Care Coordi nator - Other Start: 11-07-2022 Telephone encounter Aylin Mathew MD Work Phone: [facility] Comment on above: Results Start: 11-05-2022 End: 11-05-2022 ambulatory NIKITA ORTIZ Facility:[place] [facility] Start: 11-05-2022 ambulatory BRYANNUNU MATHEW Facility :[place] [facility] Start: 11-05-2022 End: 11-05-2022 Subsequent hospital visit by physician Ekg/Holter/Event Monitor [place] [facility] Comment on above: Persistent atrial fi brillation (HCC) [I48.19] Start: 10-15-2022 Non-patient / Non-visit Dr. Alanis Feng Work Phone: [facility] Start: 10-14-2022 End: 10-14-[address] Marion Feng Work Phone: [facility] Work Phone: Start: 10-14-2022 End: 10-14-[address] Marion Feng Work Phone: [facility] Start: 10-03-2022 End: 10-03-[address] Marion Feng Work Phone: [facility] Start: 10-03-2022 End: 10-18-[address] Marion Feng Work Phone: [facility] Work Phone: Start: 10-03-2022 End: 10-18-[address] Marion Feng Work Phone: [facility]-Laboratory Start: 10-03-[address] Marion Feng Work Phone: [facility] Start: 09-13-2022 End: 09-13-[address] Marion Feng Work Phone: [facility] Work Phone: Start: 09-13-2022 End: 09-13-[address] Marion Feng Work Phone: [facility]-Laboratory Start: 08-05-2022 End: 08-06-2022 ambulatory AYLIN MATHEW Facility:[place] [facility] Start: 07-30-2022 End: 07-30-[address] Marion Feng Work Phone: [facility]-Labor[facility] Start: 07-17-2022 End: 07-17-[address] Marion Feng Work Phone: [facility]-Pulmonary Medicine [facility] Start: 07-16-2022 End: 07-16-[address] Marion Feng Work Phone: [facility]-Laboratory Start: 07-08-2022 Telephone encounter Aylin Mathew MD Work Phone: [facility] Cardiology [place] Comment on above: Preparations For Pro cedures Start: 06-28-2022 End: 06-28-[address] Marion Feng Work Phone: [facility] Start: 06-20-2022 Telephone encounter Aylin Mathew MD Work Phone: [facility] Cardiology [place] Comment on above: Plc Engineer - O ther Start: 06-12-2022 End: 06-12-[address] Marion Feng Work Phone: [facility] Start: 06-11-2022 End: 06-11-[address] Marion Feng Work Phone: [facility] Start: 06-11-2022 End: 06-19-[address] Marion Feng Work Phone: [facility]-Laboratory Start: 06-04-2022 Non-patient / Non-visit Dr. Alanis Feng Work Phone: [facility] Start: 06-04-2022 End: 06-04-2022 Admission to same day surgery center Dr. Marion Feng Work Phone: [facility]-Web Applications Administrator/Special Procedures Start: 06-04-2022 End: 06-04-[address] Marion Feng Work Phone: [facility] Work Phone: Start: 06-03-2022 Non-patient / Non-visit Dr. Alanis Feng Work Phone: [facility] Start: 05-30-[address] Marion Feng Work Phone: [facility]Labor[facility] Start: 05-15-2022 End: 05-15-2022 ambulatory AYLIN MATHEW Facility:[place] Start: 05-15-2022 End: 05-15-2022 Patient encounter procedure Aylin Mathew MD Work Phone: [facility] Cardiology [place] Comment on above: Persistent atrial fi brillation (HCC) (Primary Dx) Start: 05-15-2022 End: 05-15-[address] Marion Feng Work Phone: [facility] Work Phone: Start: 05-15-2022 End: 05-15-[address] Marion Feng Work Phone: [facility]Labor[facility] Start: 04-11-2022 End: 04-11-[address] Marion Feng Work Phone: [facility] Work Phone: Start: 04-11-2022 End: 04-11-[address] Marion Feng Work Phone: [facility] Start: 04-11-2022 End: 04-11-[address] Marion Feng Work Phone: [facility] Start: 04-04-2022 Non-patient / Non-visit Dr. Alanis Feng Work Phone: [facility] Start: 04-04-[address] Marion Feng Work Phone: [facility] Start: 04-04-2022 End: 04-04-2022 Admission to same day surgery center Dr. Marion Feng Work Phone: [facility]-Web Applications Administrator/Special Procedures Start: 04-04-2022 End: 04-04-[address] Marion Feng Work Phone: [facility] Work Phone: Start: 03-29-2022 End: 03-29-[address] Marion Feng Work Phone: [facility] Start: 03-15-2022 End: 03-15-[address] Marion Feng Work Phone: [facility] Work Phone: Start: 03-15-2022 End: 03-15-[address] Marion Feng Work Phone: [facility]Labor[facility] Start: 03-08-2022 End: 03-08-[address] Marion Feng Work Phone: [facility] Start: 01-18-2022 ambulatory KEVIN [facility] Start: 01-16-2022 End: 01-16-[address] [facility] Start: 12-26-2021 End: 12-26-[address] Marion Feng Work Phone: [facility] Start: 12-26-[address] Marion Feng Work Phone: [facility] Start: 12-26-2021 End: 12-26-[address] Marion Feng Work Phone: [facility]-Cat Scan, [facility] Start: 11-28-2021 End: 11-28-[address] Marion Feng Work Phone: [facility] Start: 11-26-2021 End: 11-26-[address] Marion Feng Work Phone: [facility] Start: 11-08-2021 End: 01-17-2022 ambulatory KEVIN AYON [facility] Start: 11-05-2021 End: 11-05-[address] Marion [facility] Start: 10-01-2021 Non-patient / Non-visit Dr. Alanis Feng Work Phone: [facility] Start: 10-01-2021 End: 10-01-[address] Marion Feng Work Phone: [facility]-Cardiovascular Services Start: 10-01-2021 End: 10-01-[address] Marion Feng Work Phone: [facility]-Pulmonary Medicine [facility] Start: 09-15-2021 End: 09-15-[address] Marion Feng Work Phone: [facility] Start: 09-07-[address] Jasmin Feng Work Phone: [facility] Comment on above: Scheduled for left s houlder rotator cuff repair on October 24, 2021. Will need bridged with lovenox Start: 09-07-2021 End: 09-07-[address] Marion Feng Work Phone: [facility] Start: 08-31-2021 End: 09-17-[address] Marion Feng [facility] [place] Start: 06-01-2020 End: 06-01-2020 Patient encounter procedure Mitchell Hernandez MD Work Phone: [facility] Work Phone: Procedures Date Procedure Procedure Detail Performing Clinician Start: 01-14-2025 Radiologic exam ches t single view Eli Manuel PLANER SETUP OPERATOR - PERSONAL CAREGIVER Work Phone: Start: 01-14-2025 Basic metabolic pane l calcium total Leona Judge Albert PLANER SETUP OPERATOR - PERSONAL CAREGIVER Work Phone: Start: 01-13-2025 Radiologic exam ches t single view Eli Manuel PLANER SETUP OPERATOR - PERSONAL CAREGIVER Work Phone: Start: 01-13-2025 Radiologic exam ches t single view Sarah Jeremy DO Work Phone: Start: 01-13-2025 Basic metabolic pane l calcium total Leona Nu Price PLANER SETUP OPERATOR - PERSONAL CAREGIVER Work Phone: Start: 01-12-2025 Radiologic exam ches t single view Sarah Christyer DO Work Phone: Start: 01-12-2025 Basic metabolic pane l calcium total Leona Quintanillakaylayariel PLANER SETUP OPERATOR - PERSONAL CAREGIVER Work Phone: Start: 01-11-2025 Radiologic exam ches t single view Sarah Jeremy DO Work Phone: Start: 01-11-2025 End: 01-11-2025 Basic metabolic panel calcium total Sarah Jeremy DO Work Phone: Start: 01-10-2025 Radiologic exam ches t single view Sarah Jeremy DO Work Phone: Start: 01-10-2025 Level v surg patholo gy gross&microscopic exam Sarah Jeremy DO Work Phone: Start: 01-10-2025 End: 01-10-2025 Thoracoscopy w/lobectomy single lobe Sarah Jeremy DO Work Phone: Start: 01-10-2025 Prothrombin time Dominick Loob PLANER SETUP OPERATOR - PERSONAL CAREGIVER Work Phone: Start: 12-29-2024 Antibody screen SARAH LUNA Comment on above: Performed By: #### L [id number] ####Skip Tender: APOLONIA PADILLA ([id number])[facility] BLOOD [facility])[address] [place] [address] Start: 12-07-2024 Positron emission tomography with computed tomography Dr. Marion Feng MD Work Phone: Start: 11-17-[address] Marion Feng MD Work Phone: Start: 11-17-2023 CT of chest Start: 05-05-2023 Ecg routine ecg w/le ast 12 lds w/i&r Aylin Mathew MD Work Phone: Start: 01-27-2023 Ecg routine ecg w/le ast 12 lds w/i&r Nikita Ortiz APRN.PERSONAL CAREGIVER Work Phone: Start: 11-05-2022 Xtrnl ecg & 48 hr recording Aylin Mathew MD Work Phone: Start: 10-14-2022 CT angiography of ch est with contrast Dr. Marion Feng Work Phone: Start: 08-05-2022 Antibody screen BRYAN MATHEW Comment on above: Order Comment: Speci men Type: BLOOD SPECIMEN Ordering Facility: [facility] Address: [address] [place], [place] [id number] Performed By: #### T SCR #### [facility] BLOOD [facility] [id number] [address] [place] [address] STATES OF [facility] Start: 05-15-2022 Ecg routine ecg w/le ast 12 lds w/i&r Aylin Mathew MD Work Phone: Start: 12-26-2021 CT of chest without contrast Dr. Marion Feng Work Phone: Start: 09-15-[address] Marion Feng Work Phone: Start: 06-01-2020 End: 06-01-2020 Blood pressure screening not performed - reason not given Mitchell Hernandez MD Work Phone: Start: 06-01-2020 End: 06-01-2020 BMI documented as above normal parameters - follow-up documented Mitchell Hernandez MD Work Phone: Start: 06-01-2020 End: 06-01-2020 Documentation of current medications Mitchell Hernandez MD Work Phone: Start: 06-01-2020 End: 06-01-2020 Pain assessment documented as negative - follow-up not required Mitchell Hernandez MD Work Phone: Start: 06-01-2020 End: 06-01-2020 Pt tobacco screen rcvd tlk Mitchell Hernandez MD Work Phone: Start: 11-05-2019 Lipid 1996 panel - S cuauhtemoc or Plasma Aylin Mathew MD Work Phone: Start: 05-05-2017 Colonoscopy Aylin Mathew MD Work Phone: NEGATED: Highlighted rowStart: 06-01-2020 End: 06-01-2020 Documentation of current medications Keturah WHEATLEY Plan of Treatment Date Care Activity Detail Author Start: 05-05-2027 Colonoscopy COLONOSCOPY [facility] Start: 05-05-2027 COLORECTAL CANCER SCREENING COLORECTAL CANCER SCREENING [facility] Start: 05-05-2027 Screening for malignant neoplasm of colon [facility] Start: 08-05-2025 DIABETES SCREEN DIABETES SCREEN [facility] Start: 08-05-2025 Diabetes Screening Diabetes Screenin g [facility] Start: 03-21-2025 Influenza vaccination S [facility] Start: 01-27-2025 End: 01-27-2025 Patient encounter procedure 01/27/2025 10:30 AM EDT Office Visit [facility] [place] [address] [place] [phone] Eli Manuel APRN - PERSONAL CAREGIVER [address] [place], [place] [id number] [facility] [place] Start: 01-10-2025 End: 01-10-2025 Admission to same day surgery center 01/10/2025 7:30 AM EDT - 01/10/2025 11:30 AM EDT Surgery [facility] MA[facility] OR [address] [place] [phone] Sarah Luna, DO [address] [place] [address] ROBOTIC RIGHT UPPER LOBECTOMY [40633 (CPT )] [facility] Comment on above: ROBOTIC RIGHT UPPER LOBECTOMY [39522 (CPT )] Start: 01-10-2025 Subsequent hospital visit by physician 01/10/2025 7:30 AM EDT Hospital Encounter [facility] [address] [place] [phone] Sarah Luna, DO [address] [place] [address] [facility] Start: 01-10-2025 End: 01-10-2025 Thoracoscopy w/lobectomy single lobe ROBOTIC (XI) LOBECTOMY, LUNG Solitary pulmonary nodule 01/10/2025 7:30 AM EDT [facility] Start: 12-29-2024 End: 12-29-2024 Admission to establishment 12/29/2024 2:30 PM EDT Pre-Admission Testing [facility] Pre-Admit Testing [address] [place] [phone] [facility] Pre-Admit Testing Start: 12-10-2024 Patient referral [facility] Work Phone: Start: 11-25-2024 PROSTATE CANCER SCREENING DISCUSSION PROSTATE CANCER SCREENING DISCUSSION [facility] Start: 11-25-2024 Prostate specific antigen measurement Prostate Cancer Screening Discussion [facility] Start: 11-04-2024 Lipid 1996 panel - Serum or Plasma Lipid Screening [facility] Start: 11-04-2024 Lipid panel Lipid Screening [facility] Start: 11-04-2024 LIPID SCREEN LIPID SCREEN [facility] Start: 03-21-2024 COVID-19 Vaccine ( season) COVID-19 Vaccine () [facility] Start: 03-21-2024 Influenza vaccination Influenz a Vaccine (Season Ended) [facility] Start: 07-21-2023 Advance Directive Discussion Advance Directive Discussion [facility] Start: 07-21-2023 Behavioral Health Screening Behavioral Health Screening [facility] Start: 03-21-2023 Covid-19 Vaccine ( season) Covid-19 Vaccine ( season) [facility] Start: 03-21-2023 Influenza vaccination C [facility] Start: 12-03-2022 End: 2023 NM CARDIAC PERF STRESS/EXERCISE NM CARDIAC PERF STRESS/EXERCISE Radiology Routine Dyspnea, unspecified type Regular wide QRS complex tachycardia Expected: 12/03/2022, Expires: 2023 [facility] Work Phone: Comment on above: Expected: 12/03/2022 , Expires: 2023 Start: 12-02-2022 Patient referral [facility] Work Phone: Start: 11-25-2022 DIABETES SCREEN DIABETES SCREEN [facility] Start: 07-21-2022 ADVANCE DIRECTIVE DISCUSSION ADVANCE DIRECTIVE DISCUSSION [facility] Start: 07-21-2022 DEPRESSION ASSESSMENT DEPRESSION ASS ESSMENT [facility] Start: 03-21-2022 Influenza vaccination INFLUENZA (#1) [facility] Start: 2021 ADVANCE DIRECTIVE DISCUSSION ADVANCE DIRECTIVE DISCUSSION [facility] Start: 07-21-2021 DEPRESSION [facility]ESSMENT [facility] Start: 07-13-2021 COVID-19 VACCINE (4 - Booster for Pfizer series) COVID-19 VACCINE (4 - Booster for Pfizer series) [facility] Start: 07-13-2021 COVID-19 VACCINE (4 - Pfizer series) COVID-19 VACCINE (4 - Pfizer series) [facility] Start: 08-16-2020 DTaP/Tdap/Td Vaccine s (2 - Td or Tdap) DTaP/Tdap/Td Vaccines (2 - Td or Tdap) [facility] Start: 08-16-2020 Urine microalbumin profile [facility] Start: 06-01-2020 End: 06-01-2020 Appointment [facility] Work Phone: Start: 2016 RSV Immunization for Adults (1 - Risk 60-74 years 1-dose series) RSV Immunization for Adults (1 - Risk 60-74 years 1-dose series) [facility] Start: 2016 RSV Vaccine (1 - 1-dose 60+ series) RSV Vaccine (1 - 1-dose 60+ series) [facility] Start: 2006 Influenza vaccination LUNG CANCER [facility] Start: 2006 Screening for malignant neoplasm of lung Lung Cancer Screening [facility] Start: 2006 SHINGRIX VACCINE (1 of 2) SHINGRIX VACCINE (1 of 2) [facility] Start: 2006 Zoster Vaccines (1 o f 2) Zoster Vaccines (1 of 2) [facility] Start: 2001 COLOGUARD (FIT-DNA) COLOGUARD (FIT-D NA) [facility] Start: [address] COLONOGRAPHY [facility] Start: 2001 FECAL OCCULT BLOOD FECAL OCCULT BLOO D [facility] Start: 2001 Screening for malignant neoplasm of colon [facility] Start: 2001 SIGMOIDOSCOPY SIGMOIDOSCOPY [facility] Start: 12-20-1975 Pneumococcal Vaccine : 50+ Years (1 of 2 - PCV) Pneumococcal Vaccine: 50+ Years (1 of 2 - PCV) [facility] Start: 1974 Diabetes mellitus screening Diabetes Screening [facility] Start: 1974 Hepatitis C screening Hepatitis C [facility] Start: 1974 HIV SCREENING HIV SCREENING [facility] Start: 1968 Depression Screening Depression Scre ening [facility] Start: 1962 Pneumococcal Vaccine : 65+ (1 - PCV) Pneumococcal Vaccine: 65+ (1 - PCV) [facility] Start: 1962 Pneumococcal Vaccine : 65+ (1 of 2 - PCV) Pneumococcal Vaccine: 65+ (1 of 2 - PCV) [facility] Start: 1962 PNEUMOCOCCAL: 65+ (1 - PCV) PNEUMOCOCCAL: 65+ (1 - PCV) [facility] Start: 06-20-1957 COVID-19 VACCINE (#1) COVID-19 VACCI NE (#1) [facility] Start: 1956 ABDOMINAL AORTIC ANEURYSM SCREENING ABDOMINAL AORTIC ANEURYSM SCREENING [facility] Start: 1956 Abdominal aortic aneurysm screening Abdominal Aortic Aneurysm Screening [facility] Start: 1956 Lipid panel Lipid Panel [facility] Start: 1956 Medicare Annual Wellness (AWV) Medicare Annual Wellness (AWV) [facility] Start: 1956 Screening for malignant neoplasm of colon [facility] Blood chemistry [facility] Work Phone: Cardioversion [facility] Work Phone: CBC W Auto Differential panel - Blood [facility] Work Phone: CBC W Auto Differential panel - Blood [facility] CT Chest [facility] Lipid 1995 panel - Serum or Plasma [facility] Work Phone: Lipid 1996 panel - Serum or Plasma [facility] Lipid 1996 panel - Serum or Plasma [facility] Patient Education \cps-sql1\CPS_ PtEducati on\[facility]PREVENTION. pdf [facility] Work Phone: Patient referral [facility] Work Phone: Positron emission tomography with computed tomography [facility] Prostate specific antigen measurement [facility] Work Phone: Prostate specific antigen measurement [facility] Thyroid stimulating hormone measurement [facility] Work Phone: Tobacco use cessatio n education [facility] Vitamin D, 25-hydrox y measurement [facility] Work Phone: [facility] [place] EP LAB [facility] Immunizations Immunization Date Immunization Notes Care Provider Fa [facility] 05-18-2021 Covid (Pfizer) Dr. Marion gonzalez Work Phone: [facility] 09-11-2020 Covid (Pfizer) Dr. Marion gonzalez Work Phone: [facility] 08-17-2020 Covid (Pfizer) Dr. Marion gonzalez Work Phone: [facility] 06-17-2018 influenza virus vaccine, unspecified formulation Indiresha Priyanka MD Work Phone: [facility] 08-16-2010 tetanus toxoid, redu shelley diphtheria toxoid, and acellular pertussis vaccine, adsorbed Aylin Mathew MD Work Phone: [facility] Work Phone: Payers Date Payer Category Payer Commercial Managed C are - HMO [employer] [id number] 2024 Private Health Insurance [id number] 2024 Unknown [id number] 2023 Self-pay [id number] 2021 Medicare [id number] 2021 Medicare [id number] 2017 Private Health Insurance [id number] 2017 Private Health Insurance [id number] 2006 Unknown [id number] 1956 Unknown [id number] .2.651 1956 Unknown [id number] 2.840.1.000186.3.579 .2.651 Unknown [facility] PACKAGE PLAN [id number] Unknown [id number] Unknown [id number] .2.462 Unknown [id number] .2.462 Unknown [id number] 2.840.1.126867.3.579 .2.462 Unknown [id number] 2.840.1.507294.3.579 .2.462 Unknown [id number] 2.840.1.062410.3.579 .2.462 Unknown [id number] 2.840.1.860411.3.579 .2.462 Unknown [id number] 2.840.1.363721.3.579 .2.462 Unknown [id number] 2.840.1.153467.3.579 .2.462 Unknown [id number] 2.16840.1.116389.3.579 .2.462 Unknown [id number] 2.840.1.745583.3.579 .2.462 Unknown [id number] 2.840.1.146565.3.579 .2.462 Unknown [id number] 2.16840.1.542920.3.579 .2.462 Unknown [id number] 2.16.840.1.140252.3.579 .2.462 Unknown [id number] 2.16.840.1.042972.3.579 .2.462 Unknown [id number] 2.840.1.921356.3.579 .2.462 Unknown [id number] 2.16.840.1.535744.3.579 .2.462 Unknown [id number] [id number] .2.462 Social History Date Type Detail Facility Start: 10-01-2021 End: 06-09-2023 Assertion Unknown if ever smoked [facility] Work Phone: Start: 04-25-2020 None [facility] Start: 04-25-2020 Spouse/ Signif icant Other [facility] Start: 1955 Sex Assigned At Male W [facility] Start: 02-18-2020 End: 11-05-2022 Tobacco smoking status AZIS Smokes tobacco daily [facility] Work Phone: Start: 07-21-1974 End: 2024 History of tobacco use Cigarette Smoker [facility] Work Phone: Start: 02-18-2020 End: 01-10-2025 Cigarettes smoked current (pack per day) - Reported 1 [facility] Start: 02-18-2020 End: 12-23-2024 Tobacco use and exposure Smokeless tobacco non-user [facility] Work Phone: Start: 05-15-2022 End: 11-05-2022 Alcohol intake Current non-drinker of alcohol (finding) [facility] Start: 1955 Sex Assigned At Not on file [facility] Start: 05-05-2022 End: 05-15-2022 Exposure to SARS-CoV-2 (event) Not sure [facility] Start: 01-27-2023 End: 01-10-2025 Tobacco use panel [facility] National Score (1-100), lower number is lower risk 30 [facility] Start: 04-19-2024 Tobacco smoking stat [facility] Current Heavy tobacco smoker [facility] Start: 05-30-2022 End: 10-23-2024 Sex Male (finding) [facility] Start: 12-23-2024 [facility] Start: 07-21-1974 End: 2024 History of tobacco use Current smoker [facility] Start: 12-23-2024 End: 01-11-2025 Alcoholic beverage intake Current drinker of alcohol (finding) [facility] Start: 12-15-2024 Gender identity Identifies as male gender (finding) [facility] Within the last year , have you been afraid of your partner or ex-partner? No [facility] How often to you hav e a drink containing alcohol? Never [facility] Start: 12-29-2024 Alcohol Comment or less than weekly [facility] Functional Status Date Assessment Result Facility [facility] Clinical Notes 06-01-2013 to 01-27-2025 Eli Manuel, MARCOS - BLAYNE - 01/27/2025 10:30 AM Mirlande Barfield RN - 01/14/2025 1:15 PM Mirlande Barfield RN - 01/14/2025 1:15 PM Donovan Lorenzo RN - 01/10/2025 10:55 PM EDT Note Date & Type Note Facility 01-27-2025 History of Presen t illness Narrative Images from the original note were not included. [facility]: [facility] [address] [facility] [address] [facility] [address] Dept: [phone] Dept Loc: [phone] Visit type: Established patient - in person Surgery/Procedure: s/p Robotic right thoracoscopy, right upper lobe wedge resection, mediastinal lymph node dissection with Dr. Luna on 01/10/25 Reason for Visit: post op follow up Assessment/Plan Diagnosis: Right upper lobe nodule s/p wedge resection COPD PAF DVT Former tobacco use Plan: -Path discussed with patient; agreeable to plan -Reviewed current meds -Surgical Incisions: healing appropriately, well approximated, no s/s of infection Suture removed from piror CT site -Physical therapy as outlined in discharge instructions Ok to drive ROM exercises discussed -Acute Post-Operative Pain Tx plan: OTC as needed; using Tylenol PM at night time -No weight Restriction -Follow up with PCP and Pulm -Plan follow up as needed. Patient to call with any questions or concerns. They verbalized understanding Subjective HPI: 69 yo male with PMH of A Fib, GERD, DVT, tobacco abuse. Pt completed regular CT lung screening on 11/17/24 which showed a new irregular right apical nodule measuring approximately 18 mm. A PET scan was performed, which demonstrated hypermetabolic right apical nodule and no evidence of metastatic disease. He was seen by Dr. Luna and consented to surgical resection. Postoperative course uncomplicated. Once air leak noted in CT resolved; CT was removed. He was discharged on POD#4 home. 01/27/25: Patient presents today for post op follow up. -Surgical path finalized - discussed with surgeon and then patient and -Medications reviewed: no changes made -Pain is controlled. He is currently taking: OTC as needed -Incisions: healing appropriately, well approximated, no s/s of infection, suture removed from prior CT site. -There is no weight restriction from CTS standpoint. ROM exercises discussed. -Other complaints: No other needs at this time. Plan follow up as needed. Yearly CT per pulm if needed. Objective Vitals: 01/27/25 1009 BP: (!) 134/90 Pulse: (!) 48 Wt Readings from Last 3 Encounters: 01/27/25 183 lb (83 kg) 01/11/25 196 lb 3.4 oz (89 kg) 12/29/24 185 lb (83.9 kg) Physical Exam Cardiovascular: Rate and Rhythm: Regular rhythm. Bradycardia present. Heart sounds: Normal heart sounds. Pulmonary: Effort: Pulmonary effort is normal. Breath sounds: Normal breath sounds. Skin: General: Skin is warm and dry. Comments: Surgical Incisions: well approximate; clean dry with no drainage noted. Surrounding skin no redness, warmth, or signs of infection noted. Neurological: Mental Status: He is alert and oriented to person, place, and time. Labs/Imaging/Testing: reviewed EMR, see A&P for pertinent diagnostic results related to office visit Final Diagnosis A. LUNG, RIGHT UPPER LOBE, WEDGE RESECTION: - AREA OF ORGANIZING PNEUMONIA - NEGATIVE FOR MALIGNANCY AND GRANULOMAS B. LYMPH NODE, LEVEL 9R: - NEGATIVE C. LYMPH NODE, LEVEL 7: - NEGATIVE D. LYMPH NODE, LEVEL 4R: - NEGATIVE This case was reviewed by Dr. Delaney who concurs with the above interpretation. at 1131 EDT Intraoperative Consultation FROZEN SECTION DIAGNOSIS: FS1: Malignancy not identified. Vianca Porras M.D./Clint Mckeon M.D./George Delaney M.D. Intraoperative consultation performed at [facility], [address] [place] [id number]; CLIA: [id number]; Joint Commission: [id number]; CAP: [id number] Clinical Information Solitary pulmonary nodule - R91.1 [ICD-10-CM] Gross Description A. Received fresh for frozen section diagnosis labeled right upper lobe wedge is a 9.8 x 4 x 1.5 cm purple-red lung wedge. The pleura is inked black. The staple line is removed and the underlying parenchyma is inked blue. There is a white-red nodule that is 1.7 x 1 x 1 cm. A charter representative portion is submitted for frozen section diagnosis. The remainder of the specimen is sectioned revealing areas with dilated airspaces and focal fibrosis. An additional well-defined mass is not seen. The majority of the wedge with the remainder of the mass is submitted in 10 cassettes with residual frozen section tissue being submitted in cassette A1. B. Received in formalin labeled level 9R lymph node is a 0.7 x 0.4 x 0.3 cm red-panda soft tissue fragment that is submitted in one cassette. C. Received in formalin labeled level 7 lymph node is a 2.1 x 1.8 x 0.6 cm red-brown aggregate of soft tissue consistent with fragmented lymph node. The larger pieces are sectioned. The specimen is submitted entirely in two cassettes. D. Received in formalin labeled level 4R lymph node is a 1.8 x 1.6 x 0.3 cm aggregate of yellow-pink fibrofatty-appearing soft tissue. The specimen is submitted in one cassette. Disclaimer INFORMED CONSENT:The nature and purpose of the proposed treatment or procedure have been discussed. The risks and benefits of the proposed treatment or procedures have been reviewed. Alternatives have been reviewed in addition to the risks and benefits of not receiving treatments or undergoing procedures. Pursuant to this discussion, the patient agrees to undergo the proposed treatment or procedure. Captured images seen in this note from are not a substitute for a comprehensive interpretation of the entire data set as reflected by the interpreting physician with regard to radiology, echocardiography, and other diagnostic images. This note may have been dictated using [employer] Practice Edition 2.6 and/or [employer] Voice Recognition Feature. The document was proofread, however unrecognized voice recognition systems analysis manager errors may be present. documented in this encounter [facility] 01-14-2025 Nurse Note Discharged ordered reviewed and signed no questions at this time. [facility] 01-14-2025 Nurse Note Discharged ordered reviewed and signed no questions at this time. Per Dr. Ding patient is not to wear his home cpap due to risk of rupture of the staple line and risk of pneumothorax. Re-entered patient's room and explained this to patient, patient understands and states he will not put on his home cpap, Placed patient back on 2L oxygen for the night. Notified Dr. Ding patient is inquiring on whether his coumadin and bupropion will be ordered. Dr. Ding stated it is too soon after surgery to begin coumadin, patient educated. Bupropion medication will be non-formulary, patient understands he is to have his bring it from home. documented in this encounter [facility] 01-14-2025 Note Formatting of this n ote might be different from the original. Care Management Progress Note Short Medical why still here: Patient remains on H6 right upper lobe nodule s/p wedge resection. Per chart review CT dc'd. Active discharge order noted. No home going needs noted. Planned Discharge Disposition: Home or Self Care Barriers/Today we still Wait: Clinical stability, Symptomatic control Length of Stay (Days): 4 GMLOS: 3.5 [facility] 01-14-2025 Note Formatting of this n ote might be different from the original. Care Management Progress Note Short Medical why still here: Patient remains on H6 right upper lobe nodule s/p wedge resection. Per chart review CT dc'd. Active discharge order noted. No home going needs noted. Planned Discharge Disposition: Home or Self Care Barriers/Today we still Wait: Clinical stability, Symptomatic control Length of Stay (Days): 4 GMLOS: 3.5 [facility] 01-14-2025 Note Care Management Prog ress Note Short Medical why still here: Patient remains on H6 right upper lobe nodule s/p wedge resection. Per chart review CT dc'd. Active discharge order noted. No home going needs noted. Planned Discharge Disposition: Home or Self Care Barriers/Today we still Wait: Clinical stability, Symptomatic control Length of Stay (Days): 4 GMLOS: 3.5 [facility] 01-14-2025 Miscellaneous Notes Care Management Progress Note Short Medical why still here: Patient remains on H6 right upper lobe nodule s/p wedge resection. Per chart review CT dc'd. Active discharge order noted. No home going needs noted. Planned Discharge Disposition: Home or Self Care Barriers/Today we still Wait: Clinical stability, Symptomatic control Length of Stay (Days): 4 GMLOS: 3.5 Problem: Pain - Adult Goal: Verbalizes/displays adequate comfort level or baseline comfort level Outcome: Progressing Problem: Safety - Adult Goal: Free from fall injury Outcome: Progressing Problem: Discharge Planning Goal: Discharge to home or other facility with appropriate resources Outcome: Progressing Problem: Pain - Adult Goal: Verbalizes/displays adequate comfort level or baseline comfort level Outcome: Progressing Problem: Safety - Adult Goal: Free from fall injury Outcome: Progressing Problem: Discharge Planning Goal: Discharge to home or other facility with appropriate resources Outcome: Progressing Problem: Chronic Conditions and Co-morbidities Goal: Patient's chronic conditions and co-morbidity symptoms are monitored and maintained or improved Outcome: Progressing Problem: Pain - Adult Goal: Verbalizes/displays adequate comfort level or baseline comfort level Outcome: Progressing Problem: Safety - Adult Goal: Free from fall injury Outcome: Progressing Problem: Discharge Planning Goal: Discharge to home or other facility with appropriate resources Outcome: Progressing Problem: Pain - Adult Goal: Verbalizes/displays adequate comfort level or baseline comfort level Outcome: Progressing Problem: Safety - Adult Goal: Free from fall injury Outcome: Progressing Problem: Discharge Planning Goal: Discharge to home or other facility with appropriate resources Outcome: Progressing Problem: Chronic Conditions and Co-morbidities Goal: Patient's chronic conditions and co-morbidity symptoms are monitored and maintained or improved Outcome: Progressing Care Management Progress Note Short Medical why still here: Patient remains on H6 right upper lobe nodule s/p wedge resection with chest tube. Chest tube to water seal. Planned Discharge Disposition: Home or Self Care Barriers/Today we still Wait: Clinical stability, Symptomatic control Length of Stay (Days): 2 GMLOS: No GMLOS Documented Problem: Pain - Adult Goal: Verbalizes/displays adequate comfort level or baseline comfort level Outcome: Progressing Flowsheets (Taken 01/11/2025 0132) Verbalizes/displays adequate comfort level or baseline comfort level: Encourage patient to monitor pain and request assistance Assess pain using appropriate pain scale Administer analgesics based on type and severity of pain and evaluate response Implement non-pharmacological measures as appropriate and evaluate response Problem: Safety - Adult Goal: Free from fall injury Outcome: Progressing Flowsheets (Taken 01/12/2025 0521) Free from fall injury: Instruct family/caregiver on patient safety Discussed Home Care Services available to patient post DC from the hospital. Educated the patient on the services that are provided, objective of home care, and reason for the services. At this time the patient states they feel home care is not necessary. The patient politely refused the home care services. The patient was educated that should any needs arise post DC to follow up with their PCP. The patient was able to verbalize understanding. Home care to sign off. Please re-consult should any other needs arise prior to DC. Care Management Progress Note Short Medical why still here: Patient admitted to H6 Right upper lobe nodule s/p wedge resection with chest tube. Planned Discharge Disposition: Home or Self Care Barriers/Today we still Wait: Clinical stability, Symptomatic control. Chest tube removal Length of Stay (Days): 1 GMLOS: No GMLOS Documented Problem: Pain - Adult Goal: Verbalizes/displays adequate comfort level or baseline comfort level Outcome: Progressing Flowsheets (Taken 01/11/2025 0132) Verbalizes/displays adequate comfort level or baseline comfort level: Encourage patient to monitor pain and request assistance Assess pain using appropriate pain scale Administer analgesics based on type and severity of pain and evaluate response Implement non-pharmacological measures as appropriate and evaluate response Problem: Discharge Planning Goal: Discharge to home or other facility with appropriate resources Outcome: Progressing Flowsheets (Taken 01/11/2025 0132) Discharge to home or other facility with appropriate resources: Identify discharge learning needs (meds, wound care, etc) Report called to H6, family updated CARDIOTHORACIC SURGERY--OPERATIVE NOTE Date: 01/10/25 Preoperative Diagnosis: Right upper lobe lung nodule Postoperative Diagnosis: Right upper lobe lung nodule Procedure: Robotic right thoracoscopy Right upper lobe wedge resection Mediastinal lymph node dissection Surgeon: Savanah Luna DO Language Assistant: Mamie Ballesteros Anesthesia: General--Dr. Houston Complications: None Estimated Blood Loss: 25 ml Blood Products: None Tubes: Chest tube x 1 Specimen: Right upper lobe wedge; stations 9R, 7, 4R lymph nodes Brief History: This is a 69 y.o. male who was seen in consultation for a right upper lobe nodule found on screening lung CT scan. No biopsy had been offered. After complete workup the above procedure was offered. The risks, benefits, and alternatives were explained in detail and he agreed to proceed. Findings: I was able to locate the nodule robotically. A wedge biopsy was performed which showed atypical hyperplasia with no evidence of malignancy. The operation was terminated with that information. Lymph nodes were anthracotic in appearance. Details of Procedure: The patient was brought to the operative suite and placed in supine position on the operative table. General anesthesia was administered with a double-lumen endotracheal tube and all appropriate lines and tubes were placed. The patient was then placed in the left lateral decubitus position. The chest was then prepped and draped in usual sterile fashion. The assistant womens volleyball coach was present for the entire procedure from start to finish and helped with all portions of it. Local lidocaine was used at each of our incision sites. An 8 mm incision was made at the approximate eighth intercostal space posterior axillary line. A trocar was placed through this followed by the camera. The other incisions were made under direct visualization. A posterior incision in the same interspace was made and an 8 mm port was placed through this. In between these two a 12 mm incision was made and a 12 mm port was placed. Another incision was made anteriorly and a 12 mm port was placed through this. At the costophrenic angle the air seal port was placed under direct visualization. The robot was then brought to the field and the camera was docked. Appropriate targeting took place. The other instruments were then placed. At this time I scrubbed out to perform the procedure robotically. There were no pleural implants seen. The fissures were reasonably well-developed. Manipulation of the upper lobe indicated the location of the nodule in question. Because I felt confident that the nodule was at this site I elected to perform a wedge biopsy first. This was done using several firings of an Endo ALTON 45 stapler with blue loads. I took care to leave a generous margin beneath the nodule. Once it was removed it was placed into an Endo Catch bag and sent for frozen section. During this time a lymph node biopsy was performed. The inferior pulmonary ligament was taken down and the station 9 lymph node was removed. I then opened up the posterior hilum to reveal the subcarinal space. The station 7 lymph nodes were removed from here. Hemostasis was adequate. I then curved around the top of the hilum. The paratracheal area was opened and several station 4 lymph nodes were removed. Before proceeding further we awaited pathology results. Pathology revealed no malignant cells and the appearance of atypical cellular hyperplasia. With no evidence of cancer I elected to terminate the procedure at this point. Hemostasis was assured at each of our surgical sites. The robot was undocked and removed. A single 28 Surinamese chest tube was placed through the anterior incision. The lung was ventilated and and found to be well-inflated. The camera was then removed along with all the trocars. Each of the incisions were closed in layers with absorbable sutures. The procedure was then terminated. At the end of the procedure all the sponge and sharp counts were correct. Disposition: The patient was taken in stable condition to the PACU. There will be close monitoring of outputs and hemodynamics. Savanah Luna DO [facility] Cardiothoracic Surgery documented in this encounter [facility] 01-14-2025 Note Discharge Summary: C ardiothoracic Surgery Rich James, 69 y.o., 1955 ADMIT DATE: 01/10/2025 DISCHARGE DATE: 01/14/2025 VISIT STATUS: Admission CODE STATUS: Full Code DISCHARGING SURGEON: Sarah Luna DO, Office Number: [phone] DISCHARGE DIAGNOSES: Right upper lobe nodule s/p wedge resection COPD PAF DVT Former tobacco use BMI CLASSIFICATION:Overweight (BMI 25.0-29.9) SURGERY: 01/10/25: s/p Robotic right thoracoscopy, right upper lobe wedge resection, mediastinal lymph node dissection with Dr. Luna HOSPITAL COURSE: 69 yo male with PMH of A Fib, GERD, DVT, tobacco abuse. Pt completed regular CT lung screening on 11/17/24 which showed a new irregular right apical nodule measuring approximately 18 mm. A PET scan was performed, which demonstrated hypermetabolic right apical nodule and no evidence of metastatic disease. He was seen by Dr. Luna and consented to surgical resection. Postoperative course uncomplicated. Once air leak noted in CT resolved; CT was removed. He was discharged on POD#4 home. BRIEF PE ON DAY OF DISCHARGE: Physical Exam Cardiovascular: Rate and Rhythm: Normal rate and regular rhythm. Heart sounds: Normal heart sounds. No murmur heard. No friction rub. Pulmonary: Effort: Pulmonary effort is normal. Skin: General: Skin is warm and dry. Capillary Refill: Capillary refill takes less than 2 seconds. Findings: Bruising and ecchymosis present. Comments: Surgical Incisions: well approximate; clean dry with no drainage noted. Surrounding skin no redness, warmth, or signs of infection noted. Neurological: Mental Status: He is alert. Psychiatric: Behavior: Behavior is cooperative. DIAGNOSTICS: BP 119/60 (BP Location: Right arm, Patient Position: Sitting) Pulse 57 Temp 36.3 ?C (97.3 ?F) (Temporal) Resp 17 Wt 196 lb 3.4 oz (89 kg) SpO2 97% BMI 28.98 kg/m? Recent Labs 01/12/25 0157 01/13/25 0151 01/14/25 0131 CREATININE 0.94 1.00 0.89 HGB 13.7 14.3 13.8 PLT 164 165 166 WBC 8.8 7.7 6.6 INR 1.0 1.1 1.6* NA 139 136 139 K 4.0 4.6 4.2 DISCHARGE MEDICATIONS: Medication List START taking these medications acetaminophen 500 MG tablet Commonly known as: Tylenol Take 2 tablets (1,000 mg) by mouth every 8 hours for 10 days. oxyCODONE 5 MG immediate release tablet Commonly known as: Roxicodone Take 1 tablet (5 mg) by mouth every 6 hours as needed for severe pain (7-10) (acute post surgical pain) for up to 7 days. CONTINUE taking these medications [facility] 160-9-4.8 MCG/ACT aerosol Generic drug: Mmrpzvr-Vrffwapbqkh-Uemqpcuube buPROPion 150 MG 12 hr tablet Commonly known as: Zyban famotidine 20 MG tablet Commonly known as: Pepcid [id number]-PPNQWIYRE-ZEE C-MN PO loratadine 10 MG tablet Commonly known as: Claritin metoprolol succinate XL 25 MG 24 hr tablet Commonly known as: Toprol-XL simvastatin 20 MG tablet Commonly known as: Zocor warfarin 5 MG tablet Commonly known as: Coumadin STOP taking these medications fluticasone 50 MCG/ACT nasal spray Commonly known as: Flonase Where to Get Your Medications These medications were sent to [facility] [address] [place] [id number] Hours: Friday to Friday 10 am to 6 pm oxyCODONE 5 MG immediate release tablet You can get these medications from any pharmacy You don't need a prescription for these medications acetaminophen 500 MG tablet *The patient's OARRS report was obtained and reviewed.* I explained to Rich James that narcotic pain medications have addictive potential and should only be taken for acute post operative surgical pain. I also explained that narcotic/opioid medication should not be taken to help sleep as they are only intended to treat pain. In addition the patient needs to avoid driving or taking other narcotics, anxiolytics or consuming alcohol or using street drugs while they are taking the narcotic because serious side effects including can occur. I discussed the side effects that can occur when taking a narcotic alone including but not limited to: nausea, vomiting, constipation and drowsiness.I told the patient that if they have any reactions to the medication or any percieved problems with the medication, they are to stop the medication and call me. ACTIVITY: activity as tolerated, strict post-sternotomy/post-thoracotomy sternal precautions as outlined in the home going instructions, and no driving or operating heavy machinery until released by provider STRICT POST-STERNOTOMY/POST-THORACOTOMY PRECAUTIONS OUTLINED IN THE HOME GOING INSTRUCTIONS FOLLOW UP: Eli SAINI January 27 10:30am [address] [address] Dept: [phone] Dept DISPOSITION: Home A copy of the discharge instructions which included the medications at the time of discharge, follow-up appointments, phone numb (more content not included)... [facility] 01-14-2025 Hospital Discharg e federico Manuel, PLANER SETUP OPERATOR - PERSONAL CAREGIVER - 01/14/2025 11:06 AM EDT Images from the original note were not included. [facility]: Cardiothoracic Surgery [address] Mickie JORDAN (T): #[phone] (F): #[phone] After lung surgery, it is common to feel tired up to 6 to 8 weeks. Your chest may hurt and or be swollen for up to 6 weeks. It can also ache or feel stiff for up to 3 months. It is not uncommon to have tightness, itching, numbness, or tingling around the incision for up to 3 months. You may feel short of breath at first after the surgery. It is important to continue the deep-breathing and coughing exercises that you were taught in the hospital at home during your recovery. This helps your body get as much oxygen as possible. The amount of time you will need to recover depends on the surgery you had. You probably will need to take at least 1 to 2 months off work dependent on the work you do. Your Recovery: Activity, Diet, Incisional Care and Exercise Rest when you feel tired. Getting enough sleep will help you recover. Try to walk each day. Start by walking a little more than you did the day before, increasing the amount you walk. Walking boosts blood flow and helps prevent pneumonia and constipation. Do not smoke or allow others to smoke around you. If you need help quitting, talk to your provider about stop-smoking programs and medicines. These can increase your chances of quitting for good. Try to avoid being around people who you know have a cold, the flu, or other illness. Avoid strenuous activities, such as bicycle riding, jogging, weight lifting, or aerobic exercise for at least 4 weeks. Also avoid swimming, tennis, golf, or other activities that could strain your arm and shoulder muscles, during this time. Initial weight restriction is 10lbs for 2 weeks, avoid lifting anything that would make you strain. This may include a child, heavy grocery bags and milk containers, a heavy briefcase or backpack, cat litter or dog food bags, or a vacuum service line bus cleaner. If your incision is in the front or the side of your chest, hold a pillow over the incision when you cough or take deep breaths. This will support your chest and decrease your pain. No driving for 2 weeks. This is because your arm and shoulder muscles may be stiff after surgery and could make it difficult to steer. You must also be off all narcotic and sedative medications prior to returning to driving. Ok to shower. Avoid any baths or hot-tubs for 3 weeks. Wash you incision daily with warm, soapy water, and pat it dry. Do not scrub your incision(s). Do not apply any lotions or powders, hydrogen peroxide or alcohol on your incision(s). You may cover the area with a gauze bandage if it weeps or rubs against your clothing. Keep the area clean and dry. Diet: You can eat your normal diet. If your stomach is upset, try bland, low-fat foods like plain rice, broiled chicken, toast, and yogurt. Drink plenty of fluids. You may notice that your bowel movements are not regular right after your surgery. This is common. Try to avoid constipation and straining with bowel movements. You may take an over the counter stool softener as needed. If your incision has olga, these will be removed at your follow-up visit 10-14 days with your provider. Also, sutures from drains/tubes will be removed at this time. Continue to follow discharge stretching exercises outlined below. Start each exercise slowly. Ease off the exercises if you start to have pain. Shoulder Stretch long chain quiller tender a doorway and place one arm against the door frame. Your elbow should be a little higher than your shoulder. Relax your shoulders as you lean forward, allowing your chest and shoulder muscles to stretch. You can also turn your body slightly away from your arm to stretch the muscles even more. Hold for 15 to 30 seconds. Repeat 2 to 4 times with each arm. Shoulder and Chest Stretch While sitting, relax your upper body so you slump slightly in your chair. As you breathe in, straighten your back and open your arms out to the sides. Gently pull your shoulder blades back and downward. Hold for 15 to 30 seconds as your breathe normally. Repeat 2 to 4 times. Overhead stretch Reach up over your head with both arms. Hold for 15 to 30 seconds. Repeat 2 to 4 times. Acute post operative pain management: -Continue to use narcotic/opioid analgesic medication prescribed on discharge from the hospital. If you are prescribed oxycodone/acetaminophen (Percocet) or hydrocodone/acetaminophen ([place]/Vicodin) be cautious when taking additional tylenol. No driving or operating heavy machinery while taking a narcotic/opioid analgesic medication. -Tylenol (acetaminophen) 500 mg 1-2 tablets every 6 hours. No more than 4 grams in 24 hour period. Tylenol is not recommended with liver disorders. -Motrin (ibuprofen) 200-400 mg by mouth every 4-6 hours (or) 600-800mg every 8 hours as needed if not contraindicated. Ibuprofen is not recommended with renal disorders or if you are taking Warfarin (coumadin/jantoven). Maximum dose 3,200 mg per day. -Over the counter pain patches called Salon pas may used as needed next to incision but not on your incision. -Ice packs applied for 20 minutes then off for at least 20 minutes before reapplying. Call your Surgeon or return to the Emergency Room if you experience: -New or increased pain. -New or increased bleeding. -Nausea & vomiting. -Fever & chills. -Shortness of breath. -Chest pain. -Abdominal distention. Cardiothoracic Surgery: Symptom Management Office phone number: [phone] Office is open 8:30 am -4 pm. If you need assistance after hours, this will direct you to a nursing hotline. GREEN ZONE: All Clear- Your Symptoms Are Under Control Incisional pain is managed by taking Acetaminophen and/or pain medication No increase in shortness of breath No increase in leg swelling or weight gain No frequent lightheadedness/dizziness No redness or drainage from incisions. Small amount of thin, blood tinged or yellow drainage is not uncommon for few days post discharge This Means You Should: Continue current plan of care Continue taking your medications as prescribed Continue activity as tolerated, including 4 walks daily and PT exercised Eat healthy diet, no caffeine Keep all follow-up appointments No smoking YELLOW ZONE: Caution Incisional pain that is getting worse and/or not managed by pain medication Increase in shortness of breath, especially when at rest Increased leg swelling or new leg swelling Weight gain (more than 3lb in 1 day or 5lb in 1 week) Lightheadedness, dizziness, or heavy sweating Redness and/or thick drainage from incision Fever/chills This Means You Should: Call cardiothoracic surgery line for further instructions: [phone] Office is open 8:30 am -4 pm. If you need assistance after hours, this will direct you to a nursing hotline. RED ZONE: Medical Alert Severe shortness of breath at rest Severe chest pain/pressure or pain that radiates to neck, jaw, back, and/or arm that is NOT relieved with rest and pain medication. May be similar to pain prior to surgery Passing out or fainting This Means You Should: call EMS or seek care in Emergency Department documented in this encounter [facility] 01-14-2025 History of Presen t illness Narrative [facility] Anticoagulation Management Service ([facility]) Inpatient Warfarin Consult HPI: Rich James is a 69 y.o. male admitted on 01/10/2025 for Solitary pulmonary nodule [R91.1] Lung nodule [R91.1]. Medical History[1] Patient is on warfarin for DVT, Afib, Protein C Deficiency and has a goal INR 2.0 - 3.0. Warfarin is currently managed by [facility]. Pt's home dose of warfarin is 2.5 mg on and 5 mg on all other days. Pt's last INR in the clinic was 1 on 01/10. S/sx of bleeding= none reported Interacting medications= none Labs: Recent Labs 01/12/25 0157 01/13/25 0151 01/14/25 0131 HGB 13.7 14.3 13.8 HCT 41.0 43.4 41.4 PLT 164 165 166 Recent Labs 01/14/25 0131 INR 1.6* Date INR Dose 01/14 1.6 5 mg 01/13 1.1 7.5 mg 01/12 1.0 5mg 01/11 --- 5mg 01/10 1.0 HOLD Assessment/Plan: 1. INR is subtherapeutic due to multiple held doses for surgery. Will give 5 mg today (home dose) following considerable INR increase from yesterday (01/13) 2. Can consider Lovenox or heparin bridge (has history of Protein C deficiency) 3. Monitor for s/s of bleeding and drug interactions. Will adjust dose accordingly. 4. Warfarin is managed by PCP outpatient. [facility] will manage inpatient and sign off at discharge. Fawad Burton PharmD candidate 2025, staffed with Renata Hassan PharmD, [facility] Consult Service is available daily [phone] via [employer] Secure Chat. [1] Past Medical History: Diagnosis Date COPD (chronic obstructive pulmonary disease) (HCC) GERD (gastroesophageal reflux disease) Hiatal hernia 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 Obesity FIFI (obstructive sleep apnea) Paroxysmal atrial fibrillation (HCC) Protein deficiency anemia Right bundle branch block Reviewed with surgeon. Ok to d/c CT Chest tube assessed: no air leak, subcutaneous air noted. Chest tube removed without difficulty and dressing applied. Patient tolerated well. Patient and nurse educated on possible complications to observe for. Will continue to monitor. Follow up CXR in am unless new symptoms of respiratory distress Images from the original note were not included. PHYSICAL THERAPY [facility] Treatment Note Name/MRN: Rich James ([id number]) Date of : 1955 Age: 69 y.o. Room/Bed: -6111/-6111 A Discharge Recommendation: Home with assist PRN Equipment Needed: No Assessment Pt was able to complete all Posture and conditioning exercises while seated in recliner. Pt was reminded to work in a comfortable ROM to avoid added stress on chest tube insertion site. Pt was able to ambulate independently to and from room toilet. Pt completed one full lap around the hospital floor with no rest breaks. Pt stated that he has been walking with family members when they visit. Discharge Rec Home with assist PRN. Contacted PT for discharge from acute care PT services. Subjective Pt was in recliner and awake talking with present family members. Pt reported feeling okay today. Pt and stated that his pain meds were starting wear off. Pt noted that he was feeling pain into R shoulder. Pain: 0-10 pain scale: 5/10 Location: Chest tube site and R shoulder Medical Precautions: No active isolations Proper PPE donned/doffed in accordance with facility standards. Fall Risk: Mariano Fall Risk Score: 35 (Medium Risk) Precautions/Restrictions: chest tube Overall Cognitive Status: WNL Overall Orientation Status: Oriented x4 Family/Caregiver Present: spouse and child(roberto) (patient's and daughter) Objective Transfers/Mobility Sit to stand: Independent Stand to sit: Independent Toilet: Independent Pt required no assistance with any transfers. Device(s) used: None Ambulation Ambulation 1 Assistive device(s) used: None Assist level: Modified Independent Distance (ft): >600 feet Quality of gait: Steady, slow pace, No LOB. No rest breaks needed. Exercises Exercises Comments: provide, review P&C; performed #1-9. limited ROM due to chest tube site discomfort (history bilat shoulder repair) Pt has handout to be able to complete on own. Plan Continue acute PT per plan of care. Safety/Education Safety Safety Devices in place: call light within reach, left in chair, and no alarms engaged upon entry Restraints: No Education HEP: Posture and Conditioning Outcome Measures AM-PAC AM-PAC Inpatient Mobility Raw Score : 24 AM-PAC Inpatient Mobility Raw Score (No Stairs) : 20 JH-HLM JH-HLM Score: Walked 250 ft or more (i.e. several laps on unit) Goals Patient Stated Goal: Home Encounter Problems Encounter Problems (Active) Cardiac Patient will be independent with P&C exercises. (Completed) Start: 01/11/25 Expected End: 01/25/25 Resolved: 01/13/25 Mobility Patient will ambulate 600 feet with independence and no assistive device in order to improve safety and independence with mobility. (Completed) Start: 01/11/25 Expected End: 01/25/25 Resolved: 01/13/25 Patient will ascend and descend 3 stairs with no assistive device and independence in order to safely negotiate home. (Adequate for Discharge) Start: 01/11/25 Expected End: 01/25/25 Pain - Adult Transfers Patient will perform bed mobility with independence in order to improve independence and prepare for out of bed mobility. (Adequate for Discharge) Start: 01/11/25 Expected End: 01/25/25 Patient will complete functional transfer with no assistive device with independence in order to prepare for ambulation. (Completed) Start: 01/11/25 Expected End: 01/25/25 Resolved: 01/13/25 Therapy Time Individual Co-treatment Time In 1350 Time Out 1416 Minutes 26 Timed Code Treatment Minutes: 26 Minutes (GT/Ther Ex) Maile Blount, SPTA Ursula Thomas, TREASURY ANALYST Cosigned by Eva Estevez PT at 01/13/2025 3:54 PM EDT Associated attestation - Eva Estevez PT - 01/13/2025 3:54 PM EDT Goals met, OK to discharge from PT standpoint. Recommend use of mobility aides for encouraging walking throughout LOS. Images from the original note were not included. OCCUPATIONAL THERAPY [facility] Initial Evaluation Name/MRN: Rich James ([id number]) Evaluation Date: 01/13/2025 Date of : 1955 Admission Date: 01/10/2025 5:44 AM Age: 69 y.o. Room/Bed: [facility] Home/[facility] Home A Discharge Recommendation: Home with assist PRN Assessment IMPRESSION: Pt admitted for lung nodule and s/p Robotic right thoracoscopy, right upper lobe wedge resection, mediastinal lymph node dissection on 01/10/25. 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 Pt is currently performing at or near functional baseline for basic ADLs, and does not require any physical assist. Pt completed a simulated home making tasks while standing with mod indep. Pt reports he feels safe to return home and his would be able to assist if needed (also has a cane). Rec home with assist as needed for higher level IADLs. Admitting Diagnosis: Pt admitted for lung nodule and s/p Robotic right thoracoscopy, right upper lobe wedge resection, mediastinal lymph node dissection on 01/10/25. Hx COPD, DVT. Performance Deficits /Impairments: Decreased Functional Mobility and Decreased High Level IADLs Prognosis: Good Decision Making: Low Complexity Subjective Pt cooperative and agreeable to therapy. Pain: Pt denies pain; just discomfort at chest tube site Past Medical History: Medical History[1] Past Surgical History: Surgical History[2] Admission Diagnosis: Patient Active Problem List Diagnosis Date Noted Lung nodule 01/10/2025 FIFI (obstructive sleep apnea) 12/29/2024 Medical Precautions: No active isolations Proper PPE donned/doffed in accordance with facility standards. Fall Risk: Mariano Fall Risk Score: 35 (Medium Risk) Precautions/Restrictions: chest tube Family/Caregiver Present: none Overall Cognitive Status: WFL Overall Orientation Status: Oriented x4 Social/Functional History Patient admitted from home. Lives With: Spouse Type of Home: single family home Home Layout: Two Level Home Home Access: Stairs to Enter with Rails (# of stairs: 3) Bathroom Shower/Tub: Tub/Shower Combo and Grab Bars Toilet: Standard Home Equipment: cane and grab bars Homemaking Responsibilities: Independent Receives Help From: Spouse Prior Level of Function Prior Level of ADL Function: Independent Prior Level of Mobility: Independent; Device: None Prior Level of Transfers: Independent Objective ADLs LE Dressing: Modified Independent, pt able to don/doff socks while seated EOB Grooming: Modified Independent, hand hygiene completed while standing at sink Pt completed simulated home making task while standing mod indep. Upper Extremity Assessment AROM: WFL PROM: WFL Strength: WFL Bed Mobility Pt up in chair upon arrival Transfers/Mobility Sit to stand: Modified Independent Stand to sit: Modified Independent Toilet: Modified Independent Sitting balance: Modified Independent Functional mobility: Modified Independent, pt ambulated to bathroom and back. Pt demonstrated good balance as seen in his ability to complete forward bending while standing to retrieve chest tube. Device(s) used: None AM-PAC AM-PAC Inpatient Daily Activity Raw Score: 24 ADL Inpatient CMS G-Code Modifier: CH Plan No skilled acute OT indicated at this time. Please reconsult should changes occur. Safety/Education Safety Safety Devices in place: All fall risk precautions in place, call light within reach, left in chair, and no alarms engaged upon entry Restraints: No Education Education Given To: patient Education Provided: OT Role, Plan of Care, and Discharge Recommendations Education Method: Verbal Barriers to Learning: None Education Outcome: Verbalized Understanding Goals Patient Stated Goal: Go home Therapy Time Individual Co-Treatment Co-Evaluation Time In 1115 Time Out 1124 Minutes 9 Patient's Occupational Therapy Plan of Care supervision is transferred to a [facility] Occupational Therapist. Goals and/or treatment plan was established in collaboration with patient/family/other representatives. Diandra Alvarado, S/OT [1] Past Medical History: Diagnosis Date COPD (chronic obstructive pulmonary disease) (HCC) GERD (gastroesophageal reflux disease) Hiatal hernia 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 Obesity FIFI (obstructive sleep apnea) Paroxysmal atrial fibrillation (HCC) Protein deficiency anemia Right bundle branch block [2] Past Surgical History: Procedure Laterality Date CARDIAC ABLATION P ROCEDURE (HISTORICAL) CARPAL TUNNEL RELEASE Right FL REMV LUNG, WEDGE RESECTION AND ANATOMIC LUNG RESECTION (HISTORICAL) Right 01/10/2025 robotic right upper ROTATOR CUFF REPAIR Right ROTATOR CUFF REPAIR Left x 2 TOTAL HIP ARTHROPLASTY Right Cosigned by Tawana Flores OT at 01/13/2025 2:05 PM EDT [facility] Anticoagulation Management Service ([facility]) Inpatient Warfarin Consult HPI: Rich James is a 69 y.o. male admitted on 01/10/2025 for Solitary pulmonary nodule [R91.1] Lung nodule [R91.1]. Medical History[1] Patient is on warfarin for DVT, Afib, Protein C Deficiency and has a goal INR 2.0 - 3.0. Warfarin is currently managed by [facility]. Pt's home dose of warfarin is 2.5 mg on Th and 5 mg on all other days. Pt's last INR in the clinic was 1 on 01/10. S/sx of bleeding= none reported Interacting medications= Ketoralac Labs: Recent Labs 01/11/25 0210 01/12/25 0157 01/13/25 0151 HGB 13.2 13.7 14.3 HCT 39.2* 41.0 43.4 PLT 147 164 165 Recent Labs 01/13/25 0151 INR 1.1 Date INR Dose 01/13 1.1 7.5 mg 01/12 1.0 5mg 01/11 --- 5mg 01/10 1.0 HOLD Assessment/Plan: 1. INR is subtherapeutic due to multiple held doses for surgery. Will give 7.5 mg x 1 today following multiple home doses with minimal INR increase. 2. Can consider Lovenox or heparin bridge (has history of Protein C deficiency) 3. Monitor for s/s of bleeding and drug interactions. Will adjust dose accordingly. 4. Warfarin is managed by PCP outpatient. BRITTANY will manage inpatient and sign off at discharge. Fawad Burton PharmD candidate 2025, staffed with Renata Hassan PharmD, [facility] Consult Service is available daily [phone] via [employer]. [1] Past Medical History: Diagnosis Date COPD (chronic obstructive pulmonary disease) (HCC) GERD (gastroesophageal reflux disease) Hiatal hernia 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 Obesity FIFI (obstructive sleep apnea) Paroxysmal atrial fibrillation (HCC) Protein deficiency anemia Right bundle branch block Images from the original note were not included. Cardiothoracic Surgery Progress Note PATIENT NAME: Rich James DATE: 01/13/25 HPI: 69 yo male with PMH of A Fib, GERD, DVT, tobacco abuse. Pt completed regular CT lung screening on 11/17/24 which showed a new irregular right apical nodule measuring approximately 18 mm. A PET scan was performed, which demonstrated hypermetabolic right apical nodule and no evidence of metastatic disease. He was seen by Dr. Luna and consented to surgical resection. Surgery/Procedure: 01/10/25: s/p Robotic right thoracoscopy, right upper lobe wedge resection, mediastinal lymph node dissection with Dr. Luna Interval History: 01/13/25: VSS up in chair. Patient eager to get home. CT with +intermittent air leak with coughing. Discussed with Surgeon -->plan clamp trial. Pain is better controlled now. He stated he got behind it yesterday and was hurting pretty bad. Review of Systems Constitutional: Negative for diaphoresis, fatigue and fever. Respiratory: Negative for cough, shortness of breath and wheezing. Cardiovascular: Negative for chest pain, palpitations and leg swelling. Gastrointestinal: Negative for abdominal distention, constipation and diarrhea. Skin: Negative for color change, pallor and rash. Objective: CT: 20cc/24hrs:20 Vitals: BP: 134/79, MAP (mmHg): 97, Heart Rate: 62 Resp: 16 Temp: 36 C (96.8 F), Temp Source: Temporal BMI (Calculated): 28.96 BMP: Recent Labs 01/11/25 0209 01/12/25 0157 01/13/25 0151 NA 136 139 136 K 4.3 4.0 4.6 CL 107 107 105 CO2 22* 24 25 BUN 16 22 21 CREATININE 0.89 0.94 1.00 CALCIUM 8.1* 8.3* 8.5* CBC: Recent Labs 01/11/25 0210 01/12/25 0157 01/13/25 0151 WBC 9.6 8.8 7.7 HGB 13.2 13.7 14.3 HCT 39.2* 41.0 43.4 PLT 147 164 165 MCV 91.8 93.0 94.1 RDW 13.5 14.0 14.2 Physical Exam Cardiovascular: Rate and Rhythm: Normal rate and regular rhythm. Heart sounds: Normal heart sounds. No murmur heard. No friction rub. Pulmonary: Effort: Pulmonary effort is normal. Skin: General: Skin is warm and dry. Capillary Refill: Capillary refill takes less than 2 seconds. Findings: Bruising and ecchymosis present. Comments: Surgical Incisions: well approximate; clean dry with no drainage noted. Surrounding skin no redness, warmth, or signs of infection noted. Neurological: Mental Status: He is alert. Psychiatric: Behavior: Behavior is cooperative. CT to waterseal - + air leak with coughing Assessment: Right upper lobe nodule s/p wedge resection COPD PAF DVT Former tobacco use Plan: Patient Status: Telemetry Continue medications as ordered Brittany for coumadin management CT: clamp trial; follow up CXR in 2 hours PT recommending home with assist Disposition: TBD - home when albe - if able to d/c tube today; possibly tomorrow Patient discussed and plan of day developed with Cardiothoracic Surgery Surgeon Cosigned by Sarah Luna DO at 01/13/2025 2:42 PM EDT Associated attestation - Sarah Luna DO - 01/13/2025 2:42 PM EDT CARDIOTHORACIC SURGERY DOS: 01/13/25 POD # 3 VATS RUL wedge; MLND I personally performed a [id number] diagnostic evaluation on this patient I agree with the findings and plan of care as documented by the CARMELITA or resident. There has been no change in the physical exam or findings unless otherwise noted below. Doing quite well. No air leak seen Will clamp tube now and check CXR in a few hours. Hopeful for tube removal today, home tomorrow. A total of 20 minutes were spent between the [id number] encounter, physical exam, reviewing the medical history, coordinating care, counseling/educating the patient, ordering medications/test/procedures, interpreting results and documenting in the patient's record on the day of the encounter. The patient was seen and examined independently and relevant data reviewed by myself. Savanah Luna DO [facility] Cardiothoracic Surgery Patient recently quit smoking. Accepting of handout with contact information for help and support if needed. Images from the original note were not included. Cardiothoracic Surgery Progress Note PATIENT NAME: Rich James DATE: 01/12/25 HPI: Surgery/Procedure: POD # 2 Right upper lobe wedge, MLND Interval History: 01/12/25: Doing well today. No complaints. No SOB. Walks ok in the room. Objective: Vitals: BP: 111/52, MAP (mmHg): 72, Heart Rate: 58 Resp: 16 Temp: 36.4 C (97.6 F), Temp Source: Temporal BMI (Calculated): 28.96 CXR: clear without significant PTX or effusion BMP: Recent Labs 01/11/25 0209 01/12/25 0157 NA 136 139 K 4.3 4.0 CL 107 107 CO2 22* 24 BUN 16 22 CREATININE 0.89 0.94 CALCIUM 8.1* 8.3* CBC: Recent Labs 01/11/25 0210 01/12/25 0157 WBC 9.6 8.8 HGB 13.2 13.7 HCT 39.2* 41.0 PLT 147 164 MCV 91.8 93.0 RDW 13.5 14.0 INR: Recent Labs 01/10/25 0631 01/12/25 0157 INR 1.0 1.0 Physical Exam General--AAO x 3 CV--RRR Resp--clear, non-labored. Small air leak in tube only with cough. Abd--soft, NT, ND Ext--no edema Assessment: POD #2 RUL wedge resection--doing well Plan: Patient Status: Telemetry Remain on water seal with chest tube Daily CXR Increase diet and activity Pathology pending. Savanah Luna DO [facility] Cardiothoracic Surgery Nutrition rescreen completed. Chart reviewed. Patient to be monitored and followed by the diet alignment technician. DEBBIE Gonzalez Images from the original note were not included. PHYSICAL THERAPY [facility] Treatment Note Name/MRN: Rich James ([id number]) Date of : 1955 Age: 69 y.o. Room/Bed: H-6111/H-6111 A Discharge Recommendation: Home with assist PRN Equipment Needed: No Assessment Steady gait. Good endurance. Vitals stable. Encouraged increased gait. Rec discharge PT services Subjective Seated bedside chair. Hopeful to leave, still with chest tube Pain: chest tube site Medical Precautions: No active isolations Proper PPE donned/doffed in accordance with facility standards. Fall Risk: Mariano Fall Risk Score: 35 (Medium Risk) Precautions/Restrictions: chest tube Overall Cognitive Status: WFL Overall Orientation Status: Oriented x4 Family/Caregiver Present: none Objective Bed Mobility Supine to sit: Modified Independent Sit to supine: Modified Independent Logroll, exit left (simulated home) Patient states he may sleep in recliner Transfers/Mobility Sit to stand: Independent Stand to sit: Independent Ambulation Ambulation 1 Assistive device(s) used: None Assist level: Modified Independent Distance (ft): ~550' Quality of gait: steady, slow pace. Stand rest X2 Stairs Stairs 1 Assistive device(s) used: None Assist level: Modified Independent # of steps: 7 Rails: left Additional factors: reciprocal going up, reciprocal going down Exercises Exercises Comments: provide, review P&C; performed #1-3. limited ROM due to chest tube site discomfort (history bilat shoulder repair) Other exercises Other exercises?: (I.S. 3000ml+, cough splinted without production) Plan Continue acute PT per plan of care. Safety/Education Safety Safety Devices in place: call light within reach, left in chair, and no alarms engaged upon entry Restraints: No Education Therex, I.S. , bed mobility Outcome Measures AM-PAC AM-PAC Inpatient Mobility Raw Score : 24 AM-PAC Inpatient Mobility Raw Score (No Stairs) : 20 JH-HLM JH-HLM Score: Walked 250 ft or more (i.e. several laps on unit) Goals Patient Stated Goal: home Encounter Problems Encounter Problems (Active) Cardiac Patient will be independent with P&C exercises. (Progressing) Start: 01/11/25 Expected End: 01/25/25 Mobility Patient will ambulate 600 feet with independence and no assistive device in order to improve safety and independence with mobility. (Progressing) Start: 01/11/25 Expected End: 01/25/25 Patient will ascend and descend 3 stairs with no assistive device and independence in order to safely negotiate home. (Adequate for Discharge) Start: 01/11/25 Expected End: 01/25/25 Pain - Adult Transfers Patient will perform bed mobility with independence in order to improve independence and prepare for out of bed mobility. (Adequate for Discharge) Start: 01/11/25 Expected End: 01/25/25 Patient will complete functional transfer with no assistive device with independence in order to prepare for ambulation. (Adequate for Discharge) Start: 01/11/25 Expected End: 01/25/25 Therapy Time Individual Co-treatment Time In 0900 Time Out 0923 Minutes 23 Timed Code Treatment Minutes: (gt-fa) Sofi Valdivia PTA Cosigned by Eva Estevez PT at 01/12/2025 11:32 AM EDT [facility] Respiratory Care Department Progress Note As part of the Respiratory Assessment Program (RAP), the following Respiratory Therapist evaluation has been completed, including a chart review and clinical/physical assessment. Respiratory Therapist RAP Evaluation Guideline Points 0 1 2 3 4 Points Strongly Consider History Factor No Pulmonary conditions Stable Pulmonary condition(s) Surgery or Intervention that may impact Pulmonary system (at risk) Surgery or Intervention that is impacting Pulmonary system Active Exacerbation of Pulmonary Condition 1 Respiratory Pattern Regular, RR= 12-18 CEBALLOS or Increased RR= 19-24 Irregular, or RR= 25-30 SOB, talk in short sentences, or RR= 31-35 Severe SOB, accessory muscle use, one word answers, or RR>35 0 Aerosol Med(s), High Flow O2 Breath Sounds Clear Diminished in 1 lobe Diminished in <= 2 lobes Adventitious breath sounds Coarse crackles, Wheezes, or Diminished in >2 lobes 1 Aerosol Med(s), Bronchial Hygiene, Hyperinflation Cough & Sputum Strong cough, no secretion retention or production Weak cough, no secretion retention or production Weak cough, w/ production (less often than Q2hr), or secretion retention No cough, w/ secretion retention or production (less often than Q2hr) Significant secretion production (more often than Q2hr) or mucus plug 0 Aerosol Med(s), Bronchial Hygiene, Hyperinflation Level of Activity Ambulatory Ambulatory with Assist Up in chair or edge of bed (dangle) Non-ambulatory, bedridden with active ROM Completely paralyzed or without active ROM 0 Triage 5 0-2 Triage 4 3-5 Triage 3 6-10 Triage 2 11-14 Triage 1 >=15 Total 2 Triage Score = 5 TRIAGE SCORING - SUGGESTED FREQUENCIES Aerosol Therapy Bronchial Hygiene Hyperinflation Triage Score Q4h & PRN 1 Q4hWA (QID) & PRN 2 TID & PRN 3 BID & PRN 4 PRN 5 Therapy(s) Indicated Yes/No Aerosol Medication no Hyperinflation no Bronchial Hygiene no High Flow Oxygen no Flow Rates PEF (L/Sec) na IVC na FVC na FEV1 na FEV1/FVC na Patient instructed and returned demonstration on use of MDI (with spacer, as appropriate) None RT to enter/modify frequency of treatment order in EMR/EHR to match this RAP evaluation. Based on this RAP evaluation the following therapy is being initiated: nebs At the following frequency: Q4prn Comments: spo2 97% room air Thank you for involving Respiratory in the care of this patient, Images from the original note were not included. OCCUPATIONAL THERAPY [facility] Name/MRN: Rich James ([id number]) Date: 01/12/2025 OT orders received and chart reviewed. Attempting OT eval, pt working with PT. Will continue to follow as schedule permits. Tawana Flores OTR/L [facility] Anticoagulation Management Service ([facility]) Inpatient Warfarin Consult HPI: Rich James is a 69 y.o. male admitted on 01/10/2025 for Solitary pulmonary nodule [R91.1] Lung nodule [R91.1]. Medical History[1] Patient is on warfarin for DVT, Afib, Protein C Deficiency and has a goal INR 2.0 - 3.0. Warfarin is currently managed by [facility]. Pt's home dose of warfarin is 2.5 mg on Th and 5 mg on all other days. Pt's last INR in the clinic was 1 on 01/10. S/sx of bleeding= none reported Interacting medications= Ketoralac Labs: Recent Labs 01/11/25 0210 01/12/25 0157 HGB 13.2 13.7 HCT 39.2* 41.0 PLT 147 164 Recent Labs 01/12/25 015 INR 1.0 Date INR Dose 01/12 1.0 5mg 01/11 --- 5mg 01/10 1.0 HOLD Assessment/Plan: 1. INR is subtherapeutic due to multiple held doses for surgery. Will give home dose of warfarin 5mg today. 2. Can consider Lovenox or heparin bridge (has history of Protein C deficiency) 3. Monitor for s/s of bleeding and drug interactions. Will adjust dose accordingly. 3. Warfarin is managed by PCP outpatient. BRITTANY will manage inpatient and sign off at discharge. Renata Hassan RPh, PharmD [facility] Consult Service is available daily [phone] via [employer]. [1] Past Medical History: Diagnosis Date COPD (chronic obstructive pulmonary disease) (HCC) GERD (gastroesophageal reflux disease) Hiatal hernia 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 Obesity FIFI (obstructive sleep apnea) Paroxysmal atrial fibrillation (HCC) Protein deficiency anemia Right bundle branch block Images from the original note were not included. PHYSICAL THERAPY [facility] Initial Evaluation Name/MRN: Rich James ([id number]) Evaluation Date: 01/11/2025 Date of : 1955 Admission Date: 01/10/2025 5:44 AM Age: 69 y.o. Room/Bed: [facility] Home/[facility] Home A Discharge Recommendation: Home with assist PRN Assessment IMPRESSION: Pt admitted for lung nodule and s/p Robotic right thoracoscopy, right upper lobe wedge resection, mediastinal lymph node dissection on 01/10/25. Pt normally very independent and works 50 hours a week for [employer]. Pt is SBA x1 throughout session. Pt would benefit from home with assist PRN Admitting Diagnosis: Lung Nodule Prognosis: good Performance Deficits /Impairments: Increased Pain, Decreased Functional Mobility, Decreased Safety Awareness, and Decreased Balance Decision Making: Medium Complexity Subjective Pt agreeable for therapy. Pt is pleasant and cooperative. Pt reports 6/10 pain near chest tube. Past Medical History: Medical History[1] Past Surgical History: Surgical History[2] Admission Diagnosis: Patient Active Problem List Diagnosis Date Noted Lung nodule 01/10/2025 FIFI (obstructive sleep apnea) 12/29/2024 Medical Precautions: No active isolations Proper PPE donned/doffed in accordance with facility standards. Fall Risk: Mariano Fall Risk Score: 35 (Medium Risk) Precautions/Restrictions: chest tube Family/Caregiver Present: none Overall Cognitive Status: WFL Overall Orientation Status: Oriented x4 Vision: No Visual Deficits Hearing: normal Social/Functional History Lives at home with , 2 story house, lives on main floor Prior Level of Function Prior Level of ADL Function: Independent Prior Level of Mobility: Independent; Device: None Prior Level of Transfers: Independent Objective Lower Extremity Assessment AROM: WFL PROM: Not assessed this session Strength: WFL-5/5 Sensation: WFL Balance: Balance During Session: Posture: fair Sitting - Static: Independent Sitting - Dynamic: Independent Standing - Static: SBA Standing - Dynamic: SBA Bed Mobility: Pt up in chair upon arrival Transfers Sit to stand: SBA Stand to sit: SBA Performed 1 sit to stand and stand to sit transfer. Ambulation Ambulation 1 Assistive device(s) used: None Assist level: SBA Distance (ft): 275 feet x1 Quality of gait: path deviations 1) per chart review, pt supposed to be on suction for chest tube but was on waterseal upon entering room. Pt stated MD came in and took patient off suction. Spoke with RN (vero) and ok to proceed 2) Pt noted to have 1 L of O2 and per RN to take this off. SpO2 on room air is 93% with activity. Outcome Measures AM-PAC How much HELP from another person do you currently need Turning from your back to your side while in a flat bed without using bedrails?: None Moving from lying on your back to sitting on the side of a flat bed without using bedrails?: None Moving to and from a bed to a chair (including a wheelchair)?: None Standing up from a chair using your arms (wheelchair or bedside chair)?: None Walking in a hospital room?: None Stair climbing assessed?: No AM-PAC Inpatient Mobility Raw Score (No Stairs) : 20 JH-HLM JH-HLM Score: Walked 25 ft or more (i.e. walked outside of room) Plan Pt would benefit from skilled acute PT services to address Strengthening, ROM, Gait Training, Balance Training, Functional Mobility Training, Endurance Training, Safety Education and Training, Stair Training, Equipment Evaluation/Education, Neuromuscular Re-Education Training, and Positioning. Frequency: 2x/week for 2 weeks Barriers: Pain Safety/Education Safety Safety Devices in place: call light within reach, left in chair, gait belt, no alarms engaged upon entry, and gait belt placed high around upper sternum to avoid chest tube Restraints: N/A Education Education Given To: patient Education Provided: PT Role, PT Goals, and Plan of Care Education Method: Verbal Barriers to Learning: None Education Outcome: Verbalized Understanding Goals Patient Stated Goal: to get getting better and get home Encounter Problems Encounter Problems (Active) Cardiac Patient will be independent with P&C exercises. Start: 01/11/25 Expected End: 01/25/25 Mobility Patient will ambulate 600 feet with independence and no assistive device in order to improve safety and independence with mobility. Start: 01/11/25 Expected End: 01/25/25 Patient will ascend and descend 3 stairs with no assistive device and independence in order to safely negotiate home. Start: 01/11/25 Expected End: 01/25/25 Pain - Adult Transfers Patient will perform bed mobility with independence in order to improve independence and prepare for out of bed mobility. Start: 01/11/25 Expected End: 01/25/25 Patient will complete functional transfer with no assistive device with independence in order to prepare for ambulation. Start: 01/11/25 Expected End: 01/25/25 Therapy Time Individual Co-Treatment Co-Evaluation Time In 1420 Time Out 1440 Minutes 20 Variance: 6 to find BENIGNO Bsuch, PT Patient's Physical Therapy Plan of Care supervision is transferred to a [facility] Physical Therapist. Goals and/or treatment plan was established in collaboration with patient/family/other representatives. [1] Past Medical History: Diagnosis Date COPD (chronic obstructive pulmonary disease) (HCC) GERD (gastroesophageal reflux disease) Hiatal hernia 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 Obesity FIFI (obstructive sleep apnea) Paroxysmal atrial fibrillation (HCC) Protein deficiency anemia Right bundle branch block [2] Past Surgical History: Procedure Laterality Date CARDIAC ABLATION P ROCEDURE (HISTORICAL) CARPAL TUNNEL RELEASE Right FL REMV LUNG, WEDGE RESECTION AND ANATOMIC LUNG RESECTION (HISTORICAL) Right 01/10/2025 robotic right upper ROTATOR CUFF REPAIR Right ROTATOR CUFF REPAIR Left x 2 TOTAL HIP ARTHROPLASTY Right [facility] Anticoagulation [facility] ([facility]) Inpatient Warfarin Consult HPI: Rich James is a 69 y.o. male admitted on 01/10/2025 for Solitary pulmonary nodule [R91.1] Lung nodule [R91.1]. Medical History[1] Patient is on warfarin for DVT, Afib, Protein C Deficiency and has a goal INR 2.0 - 3.0. Warfarin is currently managed by PCP. Pt's home dose of warfarin is 2.5 mg on Th and 5 mg on all other days. Pt's last INR in the clinic was 1 on 01/10. S/sx of bleeding= none reported Interacting medications= Ketoralac 15 mg IV q6hrs x 4 doses Labs: Recent Labs 01/11/25 0210 HGB 13.2 HCT 39.2* PLT 147 Recent Labs 01/10/25 0631 INR 1.0 Date INR Dose 01/11 --- 5mg 01/10 1 HOLD Assessment/Plan: 1. INR is subtherapeutic due to multiple held doses for surgery. Will give warfarin 5 mg today according to home regimen. 2. Can consider Lovenox or heparin bridge for this pt (has history of Protein C deficiency) 3. Monitor for s/s of bleeding and drug interactions. Will adjust dose accordingly. 3. Warfarin is managed by PCP outpatient. [facility] will manage inpatient and sign off at discharge. Fawad Burton PharmD [facility] Consult Service is available daily [phone] via [employer] Secure Chat. [1] Past Medical History: Diagnosis Date COPD (chronic obstructive pulmonary disease) (HCC) GERD (gastroesophageal reflux disease) Hiatal hernia 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 Obesity FIFI (obstructive sleep apnea) Paroxysmal atrial fibrillation (HCC) Protein deficiency anemia Right bundle branch block [facility] Respiratory Care Department Progress Note As part of the Respiratory Assessment Program (RAP), the following Respiratory Therapist evaluation has been completed, including a chart review and clinical/physical assessment. Respiratory Therapist RAP Evaluation Guideline Points 0 1 2 3 4 Points Strongly Consider History Factor No Pulmonary conditions Stable Pulmonary condition(s) Surgery or Intervention that may impact Pulmonary system (at risk) Surgery or Intervention that is impacting Pulmonary system Active Exacerbation of Pulmonary Condition 2 Respiratory Pattern Regular, RR= 12-18 CEBALLOS or Increased RR= 19-24 Irregular, or RR= 25-30 SOB, talk in short sentences, or RR= 31-35 Severe SOB, accessory muscle use, one word answers, or RR>35 0 Aerosol Med(s), High Flow O2 Breath Sounds Clear Diminished in 1 lobe Diminished in <= 2 lobes Adventitious breath sounds Coarse crackles, Wheezes, or Diminished in >2 lobes 0 Aerosol Med(s), Bronchial Hygiene, Hyperinflation Cough & Sputum Strong cough, no secretion retention or production Weak cough, no secretion retention or production Weak cough, w/ production (less often than Q2hr), or secretion retention No cough, w/ secretion retention or production (less often than Q2hr) Significant secretion production (more often than Q2hr) or mucus plug 1 Aerosol Med(s), Bronchial Hygiene, Hyperinflation Level of Activity Ambulatory Ambulatory with Assist Up in chair or edge of bed (dangle) Non-ambulatory, bedridden with active ROM Completely paralyzed or without active ROM 0 Triage 5 0-2 Triage 4 3-5 Triage 3 6-10 Triage 2 11-14 Triage 1 >=15 Total 3 Triage Score = 4 TRIAGE SCORING - SUGGESTED FREQUENCIES Aerosol Therapy Bronchial Hygiene Hyperinflation Triage Score Q4h & PRN 1 Q4hWA (QID) & PRN 2 TID & PRN 3 BID & PRN 4 PRN 5 RT to enter/modify frequency of treatment order in EMR/EHR to match this RAP evaluation. Based on this RAP evaluation the following therapy is being initiated: Duoneb At the following frequency: BID Comments: Thank you for involving Respiratory in the care of this patient, Images from the original note were not included. Cardiothoracic Surgery/[facility] Progress Note PATIENT NAME: Rich James DATE: 01/11/25 HPI: 69 yo male with PMH of A Fib, GERD, DVT, tobacco abuse. Pt completed regular CT lung screening on 11/17/24 which showed a new irregular right apical nodule measuring approximately 18 mm. A PET scan was performed, which demonstrated hypermetabolic right apical nodule and no evidence of metastatic disease. He was seen by Dr. Luna and consented to surgical resection. Surgery/Procedure: 01/10/25- Robotic right thoracoscopy, right upper lobe wedge resection, mediastinal lymph node dissection with Dr. Luna Interval History: 01/11/25, POD# 1: VSS, afebrile. On 2L NC. Resting comfortably in bed, reports his pain is well controlled at this time. CT has +AL. Review of Systems Constitutional: Positive for activity change and fatigue. Negative for diaphoresis and fever. Respiratory: Positive for shortness of breath. Negative for cough and wheezing. Cardiovascular: Negative for chest pain, palpitations and leg swelling. Gastrointestinal: Negative for abdominal distention, abdominal pain, nausea and vomiting. Skin: Negative for color change, pallor and rash. Objective: CT output cc/24hrs: 40 mL UO cc/24hrs: 2,100 mL Vitals: BP: (!) 112/45, MAP (mmHg): 67, Heart Rate: 56 Resp: 18 Temp: 36.9 C (98.5 F), Temp Source: Temporal BMI (Calculated): 28.96 CXR: BMP: Recent Labs 01/11/25 0209 NA 136 K 4.3 CL 107 CO2 22* BUN 16 CREATININE 0.89 CALCIUM 8.1* CBC: Recent Labs 01/11/25 0210 WBC 9.6 HGB 13.2 HCT 39.2* PLT 147 MCV 91.8 RDW 13.5 INR: Recent Labs 01/10/25 0631 INR 1.0 Physical Exam Cardiovascular: Rate and Rhythm: Normal rate. Heart sounds: Normal heart sounds. No murmur heard. Pulmonary: Effort: Pulmonary effort is normal. Breath sounds: Examination of the right-lower field reveals decreased breath sounds. Decreased breath sounds present. Abdominal: General: Bowel sounds are normal. Palpations: Abdomen is soft. Tenderness: There is no abdominal tenderness. Genitourinary: Comments: Bennett catheter to straight drain Musculoskeletal: Right lower leg: No edema. Left lower leg: No edema. Skin: General: Skin is warm and dry. Capillary Refill: Capillary refill takes less than 2 seconds. Findings: Bruising and ecchymosis present. Comments: Surgical Incisions: well approximate; clean dry with no drainage noted. Surrounding skin no redness, warmth, or signs of infection noted. Neurological: Mental Status: He is alert. Psychiatric: Behavior: Behavior is cooperative. Assessment: Right upper lobe nodule s/p wedge resection COPD PAF DVT Former tobacco use Plan: Patient status: tele Home meds resumed Consult Brittany for restart home Coumadin CT with + air leak- continue to -20 mmHg suction today Daily CXR Pain regimen Scheduled- Acetaminophen PRN- Toradol, Morphine, Oxycodone D/C bennett catheter Okay for OOB to chair PT/OT ordered TCC/Discharge Planning TBD Patient discussed and plan of day developed from multidisciplinary rounds between Cardiothoracic Surgery (Cardiothoracic Surgeon, CARMELITA) and Critical Care Attending Tele Status A total of 28 minutes were spent between the [id number] encounter, physical exam, reviewing the medical history, coordinating the patient's care, counseling/educating the patient, ordering medications/test/procedures, interpreting results and documenting clinical information in the patients electronic health record on the day of the encounter. The patient was seen and examined Cosigned by Sarah Luna DO at 01/11/2025 3:15 PM EDT Associated attestation - Sarah Luna DO - 01/11/2025 3:15 PM EDT CARDIOTHORACIC SURGERY DOS: 01/11/25 POD # 1 Robotic right upper lobe wedge I personally performed a [id number]-om-deny diagnostic evaluation on this patient I agree with the findings and plan of care as documented by the CARMELITA or resident. There has been no change in the physical exam or findings unless otherwise noted below. Doing well today. Minimal activity so far--he was told he is not allowed to walk. Denies any pain. Chest tube with small air leak--he can likely tolerate water seal. Orders in. Otherwise doing quite well. Home soon. A total of 20 minutes were spent between the [id number] encounter, physical exam, reviewing the medical history, coordinating care, counseling/educating the patient, ordering medications/test/procedures, interpreting results and documenting in the patient's record on the day of the encounter. The patient was seen and examined independently and relevant data reviewed by myself. Savanah Luna DO FACS Cardiothoracic Surgery Patient sleeping comfortably, will attempt smoking cessation counseling at a later time. documented in this encounter [facility] 01-13-2025 Plan of care note Problem: Pain - Adult Goal: Verbalizes/displays adequate comfort level or baseline comfort level Outcome: Progressing Problem: Safety - Adult Goal: Free from fall injury Outcome: Progressing Problem: Discharge Planning Goal: Discharge to home or other facility with appropriate resources Outcome: Progressing [facility] 01-13-2025 Note OCCUPATIONAL THERAPY [facility] Initial Evaluation Name/MRN: Rich James ([id number]) Evaluation Date: 01/13/2025 Date of : 1955 Admission Date: 01/10/2025 5:44 AM Age: 69 y.o. Room/Bed: [facility] Discharge Recommendation: Home with assist PRN Assessment IMPRESSION: Pt admitted for lung nodule and s/p Robotic right thoracoscopy, right upper lobe wedge resection, mediastinal lymph node dissection on 01/10/25. 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 Pt is currently performing at or near functional baseline for basic ADLs, and does not require any physical assist. Pt completed a simulated home making tasks while standing with mod indep. Pt reports he feels safe to return home and his would be able to assist if needed (also has a cane). Rec home with assist as needed for higher level IADLs. Admitting Diagnosis: Pt admitted for lung nodule and s/p Robotic right thoracoscopy, right upper lobe wedge resection, mediastinal lymph node dissection on 01/10/25. Hx COPD, DVT. Performance Deficits /Impairments: Decreased Functional Mobility and Decreased High Level IADLs Prognosis: Good Decision Making: Low Complexity Subjective Pt cooperative and agreeable to therapy. Pain: Pt denies pain; just discomfort at chest tube site Past Medical History: Medical History[1] Past Surgical History: Surgical History[2] Admission Diagnosis: Patient Active Problem List Diagnosis Date Noted Lung nodule 01/10/2025 FIFI (obstructive sleep apnea) 12/29/2024 Medical Precautions: No active isolations Proper PPE donned/doffed in accordance with facility standards. Fall Risk: Mariano Fall Risk Score: 35 (Medium Risk) Precautions/Restrictions: chest tube Family/Caregiver Present: none Overall Cognitive Status: WFL Overall Orientation Status: Oriented x4 Social/Functional History Patient admitted from home. Lives With: Spouse Type of Home: single family home Home Layout: Two Level Home Home Access: Stairs to Enter with Rails (# of stairs: 3) Bathroom Shower/Tub: Tub/Shower Combo and Grab Bars Toilet: Standard Home Equipment: cane and grab bars Homemaking Responsibilities: Independent Receives Help From: Spouse Prior Level of Function Prior Level of ADL Function: Independent Prior Level of Mobility: Independent; Device: None Prior Level of Transfers: Independent Objective ADLs LE Dressing: Modified Independent, pt able to don/doff socks while seated EOB Grooming: Modified Independent, hand hygiene completed while standing at sink Pt completed simulated home making task while standing mod indep. Upper Extremity Assessment AROM: WFL PROM: WFL Strength: WFL Bed Mobility Pt up in chair upon arrival Transfers/Mobility Sit to stand: Modified Independent Stand to sit: Modified Independent Toilet: Modified Independent Sitting balance: Modified Independent Functional mobility: Modified Independent, pt ambulated to bathroom and back. Pt demonstrated good balance as seen in his ability to complete forward bending while standing to retrieve chest tube. Device(s) used: None AM-PAC AM-PAC Inpatient Daily Activity Raw Score: 24 ADL Inpatient CMS G-Code Modifier: CH Plan No skilled acute OT indicated at this time. Please reconsult should changes occur. Safety/Education Safety Safety Devices in place: All fall risk precautions in place, call light within reach, left in chair, and no alarms engaged upon entry Restraints: No Education Education Given To: patient Education Provided: OT Role, Plan of Care, and Discharge Recommendations Education Method: Verbal Barriers to Learning: None Education Outcome: Verbalized Understanding Goals Patient Stated Goal: Go home Therapy Time Individual Co-Treatment Co-Evaluation Time In 1115 Time Out 1124 Minutes 9 Patient's Occupational Therapy Plan of Care supervision is transferred to a [facility] Occupational Therapist. Goals and/or treatment plan was established in collaboration with patient/family/other representatives. Diandra Alvarado, S/OT [1] Past Medical History: Diagnosis Date COPD (chronic obstructive pulmonary disease) (HCC) GERD (gastroesophageal reflux disease) Hiatal hernia 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 Obesity FIFI (obstructive sleep apnea) Paroxysmal atrial fibrillation (HCC) Protein deficiency anemia Right bundle branch block [2] Past Surgical History: Procedure Laterality Date CARDIAC ABLATION P ROCEDURE (HISTORICAL) CARPAL TUNNEL RELEASE Right FL REMV LUNG, WEDGE RESECTION AND ANATOMIC LUNG RESECTION (HISTORICAL) Right 01/10/2025 robotic right upper ROTATOR CUFF REPAIR Right ROTATOR CUFF REPAIR Left x 2 TOTAL HIP ARTHROPLASTY Right [facility] 01-13-2025 Plan of care note Problem: Pain - Adult Goal: Verbalizes/displays adequate comfort level or baseline comfort level Outcome: Progressing Problem: Safety - Adult Goal: Free from fall injury Outcome: Progressing Problem: Discharge Planning Goal: Discharge to home or other facility with appropriate resources Outcome: Progressing Problem: Chronic Conditions and Co-morbidities Goal: Patient's chronic conditions and co-morbidity symptoms are monitored and maintained or improved Outcome: Progressing [facility] 01-12-2025 Plan of care note Problem: Pain - Adult Goal: Verbalizes/displays adequate comfort level or baseline comfort level Outcome: Progressing Problem: Safety - Adult Goal: Free from fall injury Outcome: Progressing Problem: Discharge Planning Goal: Discharge to home or other facility with appropriate resources Outcome: Progressing [facility] 01-12-2025 Plan of care note Problem: Pain - Adult Goal: Verbalizes/displays adequate comfort level or baseline comfort level Outcome: Progressing Problem: Safety - Adult Goal: Free from fall injury Outcome: Progressing Problem: Discharge Planning Goal: Discharge to home or other facility with appropriate resources Outcome: Progressing Problem: Chronic Conditions and Co-morbidities Goal: Patient's chronic conditions and co-morbidity symptoms are monitored and maintained or improved Outcome: Progressing [facility] 01-12-2025 Note Formatting of this n ote might be different from the original. Care Management Progress Note Short Medical why still here: Patient remains on H6 right upper lobe nodule s/p wedge resection with chest tube. Chest tube to water seal. Planned Discharge Disposition: Home or Self Care Barriers/Today we still Wait: Clinical stability, Symptomatic control Length of Stay (Days): 2 GMLOS: No GMLOS Documented T [facility] 01-12-2025 Note Formatting of this n ote might be different from the original. Care Management Progress Note Short Medical why still here: Patient remains on H6 right upper lobe nodule s/p wedge resection with chest tube. Chest tube to water seal. Planned Discharge Disposition: Home or Self Care Barriers/Today we still Wait: Clinical stability, Symptomatic control Length of Stay (Days): 2 GMLOS: No GMLOS Documented T [facility] 01-12-2025 Note Care Management Prog ress Note Short Medical why still here: Patient remains on H6 right upper lobe nodule s/p wedge resection with chest tube. Chest tube to water seal. Planned Discharge Disposition: Home or Self Care Barriers/Today we still Wait: Clinical stability, Symptomatic control Length of Stay (Days): 2 GMLOS: No GMLOS Documented [facility] 01-12-2025 Note Cardiothoracic Surge ry Progress Note PATIENT NAME: Rich James DATE: 01/12/25 HPI: Surgery/Procedure: POD # 2 Right upper lobe wedge, MLND Interval History: 01/12/25: Doing well today. No complaints. No SOB. Walks ok in the room. Objective: Vitals: BP: 111/52, MAP (mmHg): 72, Heart Rate: 58 Resp: 16 Temp: 36.4 ?C (97.6 ?F), Temp Source: Temporal BMI (Calculated): 28.96 CXR: clear without significant PTX or effusion BMP: Recent Labs 01/11/25 0209 01/12/25 0157 NA 136 139 K 4.3 4.0 CL 107 107 CO2 22* 24 BUN 16 22 CREATININE 0.89 0.94 CALCIUM 8.1* 8.3* CBC: Recent Labs 01/11/25 0210 01/12/25 0157 WBC 9.6 8.8 HGB 13.2 13.7 HCT 39.2* 41.0 PLT 147 164 MCV 91.8 93.0 RDW 13.5 14.0 INR: Recent Labs 01/10/25 0631 01/12/25 0157 INR 1.0 1.0 Physical Exam General--AAO x 3 CV--RRR Resp--clear, non-labored. Small air leak in tube only with cough. Abd--soft, NT, ND Ext--no edema Assessment: POD #2 RUL wedge resection--doing well Plan: Patient Status: Telemetry Remain on water seal with chest tube Daily CXR Increase diet and activity Pathology pending. Savanah Luna DO FACS Cardiothoracic Surgery [facility] 01-12-2025 Note [facility] Respiratory Care Department Progress Note As part of the Respiratory Assessment Program (RAP), the following Respiratory Therapist evaluation has been completed, including a chart review and clinical/physical assessment. Respiratory Therapist RAP Evaluation Guideline Points 0 1 2 3 4 Points Strongly Consider History Factor No Pulmonary conditions Stable Pulmonary condition(s) Surgery or Intervention that may impact Pulmonary system (at risk) Surgery or Intervention that is impacting Pulmonary system Active Exacerbation of Pulmonary Condition 1 Respiratory Pattern Regular, RR= 12-18 CEBALLOS or Increased RR= 19-24 Irregular, or RR= 25-30 SOB, talk in short sentences, or RR= 31-35 Severe SOB, accessory muscle use, one word answers, or RR>35 0 Aerosol Med(s), High Flow O2 Breath Sounds Clear Diminished in 1 lobe Diminished in <= 2 lobes Adventitious breath sounds Coarse crackles, Wheezes, or Diminished in >2 lobes 1 Aerosol Med(s), Bronchial Hygiene, Hyperinflation Cough & Sputum Strong cough, no secretion retention or production Weak cough, no secretion retention or production Weak cough, w/ production (less often than Q2hr), or secretion retention No cough, w/ secretion retention or production (less often than Q2hr) Significant secretion production (more often than Q2hr) or mucus plug 0 Aerosol Med(s), Bronchial Hygiene, Hyperinflation Level of Activity Ambulatory Ambulatory with Assist Up in chair or edge of bed (dangle) Non-ambulatory, bedridden with active ROM Completely paralyzed or without active ROM 0 Triage 5 0-2 Triage 4 3-5 Triage 3 6-10 Triage 2 11-14 Triage 1 >=15 Total 2 Triage Score = 5 TRIAGE SCORING - SUGGESTED FREQUENCIES Aerosol Therapy Bronchial Hygiene Hyperinflation Triage Score Q4h & PRN 1 Q4hWA (QID) & PRN 2 TID & PRN 3 BID & PRN 4 PRN 5 Therapy(s) Indicated Yes/No Aerosol Medication no Hyperinflation no Bronchial Hygiene no High Flow Oxygen no Flow Rates PEF (L/Sec) na IVC na FVC na FEV1 na FEV1/FVC na Patient instructed and returned demonstration on use of MDI (with spacer, as appropriate) None RT to enter/modify frequency of treatment order in EMR/EHR to match this RAP evaluation. Based on this RAP evaluation the following therapy is being initiated: nebs At the following frequency: Q4prn Comments: spo2 97% room air Thank you for involving Respiratory in the care of this patient, [facility] 01-12-2025 Note Cardiothoracic Surge ry/CCM Progress Note PATIENT NAME: Rich James DATE: 01/12/25 HPI: 69 yo male with PMH of A Fib, GERD, DVT, tobacco abuse. Pt completed regular CT lung screening on 11/17/24 which showed a new irregular right apical nodule measuring approximately 18 mm. A PET scan was performed, which demonstrated hypermetabolic right apical nodule and no evidence of metastatic disease. He was seen by Dr. Luna and consented to surgical resection. Surgery/Procedure: 01/10/25- Robotic right thoracoscopy, right upper lobe wedge resection, mediastinal lymph node dissection with Dr. Luna Interval History: 01/12/25, POD# 2: VSS, afebrile. On RA. Resting in chair, having some pain but has not taken any pain medication since last night. +AL in chest tube with cough Review of Systems Constitutional: Positive for activity change. Negative for diaphoresis, fatigue and fever. Respiratory: Negative for cough, shortness of breath and wheezing. Cardiovascular: Negative for chest pain, palpitations and leg swelling. Gastrointestinal: Negative for abdominal distention, abdominal pain, nausea and vomiting. Skin: Negative for color change, pallor and rash. Objective: CT output cc/24hrs: 27 mL Vitals: BP: 111/52, MAP (mmHg): 72, Heart Rate: 58 Resp: 16 Temp: 36.4 ?C (97.6 ?F), Temp Source: Temporal BMI (Calculated): 28.96 CXR: BMP: Recent Labs 01/11/25 0209 01/12/25 0157 NA 136 139 K 4.3 4.0 CL 107 107 CO2 22* 24 BUN 16 22 CREATININE 0.89 0.94 CALCIUM 8.1* 8.3* CBC: Recent Labs 01/11/25 0210 01/12/25 0157 WBC 9.6 8.8 HGB 13.2 13.7 HCT 39.2* 41.0 PLT 147 164 MCV 91.8 93.0 RDW 13.5 14.0 INR: Recent Labs 01/10/25 0631 01/12/25 0157 INR 1.0 1.0 Physical Exam Cardiovascular: Rate and Rhythm: Normal rate. Heart sounds: Normal heart sounds. No murmur heard. Pulmonary: Effort: Pulmonary effort is normal. Breath sounds: Examination of the right-lower field reveals decreased breath sounds. Decreased breath sounds present. Abdominal: General: Bowel sounds are normal. Palpations: Abdomen is soft. Tenderness: There is no abdominal tenderness. Musculoskeletal: Right lower leg: No edema. Left lower leg: No edema. Skin: General: Skin is warm and dry. Capillary Refill: Capillary refill takes less than 2 seconds. Findings: Bruising and ecchymosis present. Comments: Surgical Incisions: well approximate; clean dry with no drainage noted. Surrounding skin no redness, warmth, or signs of infection noted. Neurological: Mental Status: He is alert. Psychiatric: Behavior: Behavior is cooperative. Assessment: Right upper lobe nodule s/p wedge resection COPD PAF DVT Former tobacco use Plan: Patient status: tele Home meds resumed Brittany following for home Coumadin CT with + air leak- continue on water seal today Daily CXR Pain regimen Scheduled- Acetaminophen PRN- Morphine, Oxycodone PT/OT ordered TCC/Discharge Planning TBD Patient discussed and plan of day developed from multidisciplinary rounds between Cardiothoracic Surgery (Cardiothoracic Surgeon, CARMELITA) and Critical Care Attending Tele Status A total of 18 minutes were spent between the [id number] encounter, physical exam, reviewing the medical history, coordinating the patient's care, counseling/educating the patient, ordering medications/test/procedures, interpreting results and documenting clinical information in the patients electronic health record on the day of the encounter. The patient was seen and examined [facility] 01-12-2025 Plan of care note Problem: Pain - Adult Goal: Verbalizes/displays adequate comfort level or baseline comfort level Outcome: Progressing Flowsheets (Taken 01/11/2025 0132) Verbalizes/displays adequate comfort level or baseline comfort level: Encourage patient to monitor pain and request assistance Assess pain using appropriate pain scale Administer analgesics based on type and severity of pain and evaluate response Implement non-pharmacological measures as appropriate and evaluate response Problem: Safety - Adult Goal: Free from fall injury Outcome: Progressing Flowsheets (Taken 01/12/2025 0521) Free from fall injury: Instruct family/caregiver on patient safety [facility] 01-11-2025 Note Formatting of this n ote might be different from the original. Discussed Home Care Services available to patient post DC from the hospital. Educated the patient on the services that are provided, objective of home care, and reason for the services. At this time the patient states they feel home care is not necessary. The patient politely refused the home care services. The patient was educated that should any needs arise post DC to follow up with their PCP. The patient was able to verbalize understanding. Home care to sign off. Please re-consult should any other needs arise prior to DC. [facility] 01-11-2025 Note Formatting of this n ote might be different from the original. Discussed Home Care Services available to patient post DC from the hospital. Educated the patient on the services that are provided, objective of home care, and reason for the services. At this time the patient states they feel home care is not necessary. The patient politely refused the home care services. The patient was educated that should any needs arise post DC to follow up with their PCP. The patient was able to verbalize understanding. Home care to sign off. Please re-consult should any other needs arise prior to DC. [facility] 01-11-2025 Note PHYSICAL THERAPY [facility] Initial Evaluation Name/MRN: Rich James ([id number]) Evaluation Date: 01/11/2025 Date of : 1955 Admission Date: 01/10/2025 5:44 AM Age: 69 y.o. Room/Bed: [facility] Discharge Recommendation: Home with assist PRN Assessment IMPRESSION: Pt admitted for lung nodule and s/p Robotic right thoracoscopy, right upper lobe wedge resection, mediastinal lymph node dissection on 01/10/25. Pt normally very independent and works 50 hours a week for [employer]. Pt is SBA x1 throughout session. Pt would benefit from home with assist PRN Admitting Diagnosis: Lung Nodule Prognosis: good Performance Deficits /Impairments: Increased Pain, Decreased Functional Mobility, Decreased Safety Awareness, and Decreased Balance Decision Making: Medium Complexity Subjective Pt agreeable for therapy. Pt is pleasant and cooperative. Pt reports 6/10 pain near chest tube. Past Medical History: Medical History[1] Past Surgical History: Surgical History[2] Admission Diagnosis: Patient Active Problem List Diagnosis Date Noted Lung nodule 01/10/2025 FIFI (obstructive sleep apnea) 12/29/2024 Medical Precautions: No active isolations Proper PPE donned/doffed in accordance with facility standards. Fall Risk: Mariano Fall Risk Score: 35 (Medium Risk) Precautions/Restrictions: chest tube Family/Caregiver Present: none Overall Cognitive Status: WFL Overall Orientation Status: Oriented x4 Vision: No Visual Deficits Hearing: normal Social/Functional History Lives at home with , 2 story house, lives on main floor Prior Level of Function Prior Level of ADL Function: Independent Prior Level of Mobility: Independent; Device: None Prior Level of Transfers: Independent Objective Lower Extremity Assessment AROM: WFL PROM: Not assessed this session Strength: WFL-5/5 Sensation: WFL Balance: Balance During Session: Posture: fair Sitting - Static: Independent Sitting - Dynamic: Independent Standing - Static: SBA Standing - Dynamic: SBA Bed Mobility: Pt up in chair upon arrival Transfers Sit to stand: SBA Stand to sit: SBA Performed 1 sit to stand and stand to sit transfer. Ambulation Ambulation 1 Assistive device(s) used: None Assist level: SBA Distance (ft): 275 feet x1 Quality of gait: path deviations 1) per chart review, pt supposed to be on suction for chest tube but was on waterseal upon entering room. Pt stated MD came in and took patient off suction. Spoke with RN (vero) and ok to proceed 2) Pt noted to have 1 L of O2 and per RN to take this off. SpO2 on room air is 93% with activity. Outcome Measures AM-PAC How much HELP from another person do you currently need Turning from your back to your side while in a flat bed without using bedrails?: None Moving from lying on your back to sitting on the side of a flat bed without using bedrails?: None Moving to and from a bed to a chair (including a wheelchair)?: None Standing up from a chair using your arms (wheelchair or bedside chair)?: None Walking in a hospital room?: None Stair climbing assessed?: No AM-PAC Inpatient Mobility Raw Score (No Stairs) : 20 JH-HLM JH-HLM Score: Walked 25 ft or more (i.e. walked outside of room) Plan Pt would benefit from skilled acute PT services to address Strengthening, ROM, Gait Training, Balance Training, Functional Mobility Training, Endurance Training, Safety Education and Training, Stair Training, Equipment Evaluation/Education, Neuromuscular Re-Education Training, and Positioning. Frequency: 2x/week for 2 weeks Barriers: Pain Safety/Education Safety Safety Devices in place: call light within reach, left in chair, gait belt, no alarms engaged upon entry, and gait belt placed high around upper sternum to avoid chest tube Restraints: N/A Education Education Given To: patient Education Provided: PT Role, PT Goals, and Plan of Care Education Method: Verbal Barriers to Learning: None Education Outcome: Verbalized Understanding Goals Patient Stated Goal: to get getting better and get home Encounter Problems Encounter Problems (Active) Cardiac Patient will be independent with P&C exercises. Start: 01/11/25 Expected End: 01/25/25 Mobility Patient will ambulate 600 feet with independence and no assistive device in order to improve safety and independence with mobility. Start: 01/11/25 Expected End: 01/25/25 Patient will ascend and descend 3 stairs with no assistive device and independence in order to safely negotiate home. Start: 01/11/25 Expected End: 01/25/25 Pain - Adult Transfers Patient will perform bed mobility with independence in order to improve independence and prepare for out of bed mobility. Start: 01/11/25 Expected End: 01/25/25 Patient will complete functional transfer with no assistive device with independence in order to prepare for ambulation. Start (more content not included)... [facility] 01-11-2025 Note Formatting of this n ote might be different from the original. Care Management Progress Note Short Medical why still here: Patient admitted to H6 Right upper lobe nodule s/p wedge resection with chest tube. Planned Discharge Disposition: Home or Self Care Barriers/Today we still Wait: Clinical stability, Symptomatic control. Chest tube removal Length of Stay (Days): 1 GMLOS: No GMLOS Documented [facility] 01-11-2025 Note Formatting of this n ote might be different from the original. Care Management Progress Note Short Medical why still here: Patient admitted to H6 Right upper lobe nodule s/p wedge resection with chest tube. Planned Discharge Disposition: Home or Self Care Barriers/Today we still Wait: Clinical stability, Symptomatic control. Chest tube removal Length of Stay (Days): 1 GMLOS: No GMLOS Documented [facility] 01-11-2025 Note Care Management Prog ress Note Short Medical why still here: Patient admitted to Right upper lobe nodule s/p wedge resection with chest tube. Planned Discharge Disposition: Home or Self Care Barriers/Today we still Wait: Clinical stability, Symptomatic control. Chest tube removal Length of Stay (Days): 1 GMLOS: No GMLOS Documented [facility] 01-11-2025 Note FROZEN SECTION DIAGN OSIS: FS1: Malignancy not identified. Vianca Porras M.D./Clint Mckeon M.D./George Delaney M.D. Intraoperative consultation performed at [facility], [address] [place] [address]; CLIA: [id number]; Joint Commission: [facility] [id number]; CAP: [phone] [facility] Work Phone: 01-11-2025 Note FROZEN SECTION DIAGN OSIS: FS1: Malignancy not identified. Vianca Porras M.D./Clint Mckeon M.D./George Delaney M.D. Intraoperative consultation performed at [facility], [address] [place] [address]; CLIA: [id number]; Joint Commission: HCO [id number]; CAP: [phone] [facility] [employer] Phone: 01-11-2025 Note [facility] Respiratory Care Department Progress Note As part of the Respiratory Assessment Program (RAP), the following Respiratory Therapist evaluation has been completed, including a chart review and clinical/physical assessment. Respiratory Therapist RAP Evaluation Guideline Points 0 1 2 3 4 Points Strongly Consider History Factor No Pulmonary conditions Stable Pulmonary condition(s) Surgery or Intervention that may impact Pulmonary system (at risk) Surgery or Intervention that is impacting Pulmonary system Active Exacerbation of Pulmonary Condition 2 Respiratory Pattern Regular, RR= 12-18 CEBALLOS or Increased RR= 19-24 Irregular, or RR= 25-30 SOB, talk in short sentences, or RR= 31-35 Severe SOB, accessory muscle use, one word answers, or RR>35 0 Aerosol Med(s), High Flow O2 Breath Sounds Clear Diminished in 1 lobe Diminished in <= 2 lobes Adventitious breath sounds Coarse crackles, Wheezes, or Diminished in >2 lobes 0 Aerosol Med(s), Bronchial Hygiene, Hyperinflation Cough & Sputum Strong cough, no secretion retention or production Weak cough, no secretion retention or production Weak cough, w/ production (less often than Q2hr), or secretion retention No cough, w/ secretion retention or production (less often than Q2hr) Significant secretion production (more often than Q2hr) or mucus plug 1 Aerosol Med(s), Bronchial Hygiene, Hyperinflation Level of Activity Ambulatory Ambulatory with Assist Up in chair or edge of bed (dangle) Non-ambulatory, bedridden with active ROM Completely paralyzed or without active ROM 0 Triage 5 0-2 Triage 4 3-5 Triage 3 6-10 Triage 2 11-14 Triage 1 >=15 Total 3 Triage Score = 4 TRIAGE SCORING - SUGGESTED FREQUENCIES Aerosol Therapy Bronchial Hygiene Hyperinflation Triage Score Q4h & PRN 1 Q4hWA (QID) & PRN 2 TID & PRN 3 BID & PRN 4 PRN 5 RT to enter/modify frequency of treatment order in EMR/EHR to match this RAP evaluation. Based on this RAP evaluation the following therapy is being initiated: Duoneb At the following frequency: BID Comments: Thank you for involving Respiratory in the care of this patient, [facility] 01-11-2025 Plan of care note Problem: Pain - Adult Goal: Verbalizes/displays adequate comfort level or baseline comfort level Outcome: Progressing Flowsheets (Taken 01/11/2025131) Verbalizes/displays adequate comfort level or baseline comfort level: Encourage patient to monitor pain and request assistance Assess pain using appropriate pain scale Administer analgesics based on type and severity of pain and evaluate response Implement non-pharmacological measures as appropriate and evaluate response Problem: Discharge Planning Goal: Discharge to home or other facility with appropriate resources Outcome: Progressing Flowsheets (Taken 01/11/2025131) Discharge to home or other facility with appropriate resources: Identify discharge learning needs (meds, wound care, etc) [facility] 01-10-[address] Ding patient is not to wear his home cpap due to risk of rupture of the staple line and risk of pneumothorax. Re-entered patient's room and explained this to patient, patient understands and states he will not put on his home cpap, Placed patient back on 2L oxygen for the night. [facility] 01-10-[address] Ding patient is inquiring on whether his coumadin and bupropion will be ordered. Dr. Ding stated it is too soon after surgery to begin coumadin, patient educated. Bupropion medication will be non-formulary, patient understands he is to have his bring it from home. [facility] 01-10-2025 Note Patient sleeping com fortably, will attempt smoking cessation counseling at a later time. [facility] 01-10-2025 Nurse Note Report called to H6, family updated T [facility] 01-10-2025 Note Patient: Rich garcia Procedure Summary Date: 01/10/25 Room / Location: [address] Operating Room Anesthesia Start: 731 Anesthesia Stop: 1041 Procedure: ROBOTIC RIGHT UPPER LOBE WEDGE RESECTION (Right) Diagnosis: Solitary pulmonary nodule Surgeons: Sarah Luna DO Responsible Provider: Arnoldo Houston MD Anesthesia Type: general, regional ASA Status: 3 Anesthesia Type: general, regional Vitals Value Taken Time BP 132/66 01/10/25 10:36 Temp 36 01/10/25 10:42 Pulse 52 01/10/25 10:41 Resp 17 01/10/25 10:35 SpO2 100 % 01/10/25 10:41 Vitals shown include unfiled device data. Anesthesia Post Evaluation Patient location during evaluation: PACU Patient participation: complete - patient participated Level of consciousness: awake and alert Pain management: satisfactory to patient Airway patency: patent Dental Injury: no Cardiovascular status: acceptable, blood pressure returned to baseline and hemodynamically stable Respiratory status: acceptable and spontaneous ventilation Hydration status: euvolemic Nausea/Vomiting: controlled No notable events documented. Patient can be discharged once all PACU criteria has been met. [facility] 01-10-2025 Note Patient: Rich garcia Procedure Summary Date: 01/10/25 Room / Location: [address] Operating Room Anesthesia Start: 731 Anesthesia Stop: 1041 Procedure: ROBOTIC RIGHT UPPER LOBE WEDGE RESECTION (Right) Diagnosis: Solitary pulmonary nodule Surgeons: Sarah Luna DO Responsible Provider: Arnoldo Houston MD Anesthesia Type: general, regional ASA Status: 3 Anesthesia Type: general, regional Vitals Value Taken Time BP 132/66 01/10/25 10:36 Temp 36 01/10/25 10:42 Pulse 52 01/10/25 10:41 Resp 17 01/10/25 10:35 SpO2 100 % 01/10/25 10:41 Vitals shown include unfiled device data. Anesthesia Post Evaluation Patient participation: complete - patient participated Level of consciousness: alert and awake Pain management: satisfactory to patient Multimodal analgesia pain management approach Airway patency: patent Two or more strategies used to mitigate risk of obstructive sleep apnea Respiratory status: acceptable Cardiovascular status: acceptable Hydration status: acceptable No notable events documented. Anesthesia Post Evaluation I completed my handoff to the receiving clinician during which we: 1. Identified the patient 2. Identified the responsible provider 3. Reviewed the pertinent medical history 4. Discussed the surgical course 5. Reviewed intra-op anesthesia management and issues during anesthesia 6. Set expectations for post-procedure period 7. Allowed opportunity for questions and acknowledgement of understanding. [facility] 01-10-2025 Note Airway Date/Time: 01/10/2025 7:35 AM Reason: scheduled Airway not difficult General Information and Staff Patient location during procedure: Procedural Resident/DREDGE LEVER OPERATOR: Wallace Pina APRN - DREDGE LEVER OPERATOR Performed: SRNA Patient Condition Indications for airway management: anesthesia Patient position: sniffing MILS maintained throughout Sedation level: Asleep Final Airway Details Preoxygenated: yes Final airway type: endotracheal airway Successful airway: ETT - double lumen left Cuffed: yes Successful intubation technique: direct laryngoscopy Adjuncts used in placement: intubating stylet Endotracheal tube insertion site: oral Blade: Jacques Blade size: #2 ETT DL size (fr): 37 Cormack-Lehane Classification: grade I - full view of glottis Placement verified by: chest auscultation Measured from: teeth ETT to teeth (cm): 31 Ventilation between attempts: 2 hand mask Number of attempts at approach: 1 Number of other approaches attempted: 1 [facility] 01-10-2025 Note Arterial Line: Date/Time: 01/10/2025 7:44 AM An arterial line was placed Procedure performed using ultrasound guidance - Image permanently retained with wire or catheter in vein.in the Procedural for the following indication(s): continuous blood pressure monitoring. A 22 gauge (size), 1 and 3/4 inch (length), Arrow (type) catheter was placed, into the Right radial artery, secured by Tegaderm and tape. Events: patient tolerated procedure well with no complications. Staffing Performed: DREDGE LEVER OPERATOR Resident/DREDGE LEVER OPERATOR: Jeison Gomez CRNA [facility] 01-10-2025 Procedure note CARDIOTHORACIC SURGERY--OPERATIVE NOTE Date: 01/10/25 Preoperative Diagnosis: Right upper lobe lung nodule Postoperative Diagnosis: Right upper lobe lung nodule Procedure: Robotic right thoracoscopy Right upper lobe wedge resection Mediastinal lymph node dissection Surgeon: Savanah Luna DO Language Assistant: Mamie Ballesteros Anesthesia: General--Dr. Houston Complications: None Estimated Blood Loss: 25 ml Blood Products: None Tubes: Chest tube x 1 Specimen: Right upper lobe wedge; stations 9R, 7, 4R lymph nodes Brief History: This is a 69 y.o. male who was seen in consultation for a right upper lobe nodule found on screening lung CT scan. No biopsy had been offered. After complete workup the above procedure was offered. The risks, benefits, and alternatives were explained in detail and he agreed to proceed. Findings: I was able to locate the nodule robotically. A wedge biopsy was performed which showed atypical hyperplasia with no evidence of malignancy. The operation was terminated with that information. Lymph nodes were anthracotic in appearance. Details of Procedure: The patient was brought to the operative suite and placed in supine position on the operative table. General anesthesia was administered with a double-lumen endotracheal tube and all appropriate lines and tubes were placed. The patient was then placed in the left lateral decubitus position. The chest was then prepped and draped in usual sterile fashion. The assistant womens volleyball coach was present for the entire procedure from start to finish and helped with all portions of it. Local lidocaine was used at each of our incision sites. An 8 mm incision was made at the approximate eighth intercostal space posterior axillary line. A trocar was placed through this followed by the camera. The other incisions were made under direct visualization. A posterior incision in the same interspace was made and an 8 mm port was placed through this. In between these two a 12 mm incision was made and a 12 mm port was placed. Another incision was made anteriorly and a 12 mm port was placed through this. At the costophrenic angle the air seal port was placed under direct visualization. The robot was then brought to the field and the camera was docked. Appropriate targeting took place. The other instruments were then placed. At this time I scrubbed out to perform the procedure robotically. There were no pleural implants seen. The fissures were reasonably well-developed. Manipulation of the upper lobe indicated the location of the nodule in question. Because I felt confident that the nodule was at this site I elected to perform a wedge biopsy first. This was done using several firings of an Endo ALTON 45 stapler with blue loads. I took care to leave a generous margin beneath the nodule. Once it was removed it was placed into an Endo Catch bag and sent for frozen section. During this time a lymph node biopsy was performed. The inferior pulmonary ligament was taken down and the station 9 lymph node was removed. I then opened up the posterior hilum to reveal the subcarinal space. The station 7 lymph nodes were removed from here. Hemostasis was adequate. I then curved around the top of the hilum. The paratracheal area was opened and several station 4 lymph nodes were removed. Before proceeding further we awaited pathology results. Pathology revealed no malignant cells and the appearance of atypical cellular hyperplasia. With no evidence of cancer I elected to terminate the procedure at this point. Hemostasis was assured at each of our surgical sites. The robot was undocked and removed. A single 28 Surinamese chest tube was placed through the anterior incision. The lung was ventilated and and found to be well-inflated. The camera was then removed along with all the trocars. Each of the incisions were closed in layers with absorbable sutures. The procedure was then terminated. At the end of the procedure all the sponge and sharp counts were correct. Disposition: The patient was taken in stable condition to the PACU. There will be close monitoring of outputs and hemodynamics. Savanah Luna DO FACS Cardiothoracic Surgery [facility] 01-10-2025 Note Peripheral Block Time Out: 01/10/2025 7:00 AM Patient location during procedure: pre-op Start time: 01/10/2025 7:00 AM End time: 01/10/2025 7:05 AM Reason for block: procedure for pain and Acute pain service Staffing Performed: DREDGE LEVER OPERATOR Resident/DREDGE LEVER OPERATOR: Steffi Arce APRN - DREDGE LEVER OPERATOR Preanesthetic Checklist Completed: patient identified, IV checked, site marked, risks and benefits discussed, surgical consent, monitors and equipment checked, pre-op evaluation and timeout performed Region: Truncal Primary: Erector Spinae Secondary: Serratus (20cc TAP 10 cc exparel) Peripheral Block Prep: ChloraPrep Patient monitoring: heart rate, court monitor and continuous pulse ox O2: Nasal cannula Laterality: right Injection technique: single-shot Guidance: ultrasound guided -image retained in chart, tip of the needle identified by ultraound during injection. Needle Needle: 22G X 80 mm Additional Notes 01/10/2025 7:00 AM Assessment Injection assessment: negative aspiration for heme and incremental injection Paresthesia pain: none Heart rate change: no Slow fractionated injection: yes Required Documentation: Relevant anatomy identified (Nerves, Vessels, Muscles), Negative for blood on aspiration, Local anesthetic injected incrementally with intermittent aspiration every 5 mL, Normal resistance with injection, Local anesthetic spread visualized around nerves or plane., No EKG changes noted, No symptoms of toxicity and No paresthesias reported by patient during injectionMedications bupivacaine liposome (Exparel) 1.3 % injection - Injection 20 mL - 01/10/2025 7:00:00 AM lwyFUOVYfpsdt-wavmqignrvn-xvcgypk rine (TAP) syringe - Injection 40 mL - 01/10/2025 7:00:00 AM [facility] 01-10-2025 Attending History and physical note H&P reviewed. The patient was examined and there are no changes to the H&P. PFTs from [place] reviewed. FEV1 2.33/66%. DLCO 16.4/64%. Will proceed with right upper lobectomy today. Savanah Luna DO [facility] Cardiothoracic Surgery Source Note - Sarah Luna DO - 12/23/2024 11:15 AM EDT Images from the original note were not included. [facility] CARDIOVASCULAR & THORACIC SURGERY [address] [facility] [address] Dept: [phone] Dept Loc: [phone] Visit type: New Reason for Visit: Lung nodule Assessment: 1. Right upper lobe pulmonary nodule 2. Chronic obstructive pulmonary disease, unspecified COPD type (HCC) 3. Paroxysmal atrial fibrillation (HCC) 4. 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) 5. Warfarin anticoagulation 6. Former smoker Recommendations: After extensive discussion we have decided on surgical resection of this lung nodule. It is suspicious enough in appearance that removal is a reasonable maneuver, even without a biopsy. In fact, if a biopsy were performed and found to be negative, we would still recommend surgical resection just to be sure of the finding. This was all explained to him in detail. The risks were outlined as well. A robotic approach will be used for the operation. If his forthcoming PFTs are very poor then I may switch to doing a simple wedge resection, but as it is I am planning on a right upper lobectomy. He is willing to proceed as planned. History of Present Illness Rich James is a 69 y.o. male referred by ANA Lomeli for PET positive right apical nodule. Per note, patient with past medical history significant for paroxysmal A Fib, GERD, DVT, tobacco abuse. Pt completed regular CT lung screening on 11/17/24 which showed a new irregular right apical nodule measuring approximately 18 mm, and coronary artery calcification. A PET scan was performed, which demonstrated hypermetabolic right apical nodule and no evidence of metastatic disease. Patient recently quit smoking. Patient is currently taking warfarin. Patient is here today for an evaluation. He found this nodule on routine annual low dose CT screening. He denies any chest pain, shortness of breath, cough, hemoptysis, or weight loss. He quit smoking a couple weeks ago after about 50 years of 1 ppd. He takes warfarin for atrial fibrillation and a right leg DVT he had many years ago. He is not diabetic and has no other cancer history. His PET/CT was reviewed and appears very suspicious for a primary malignancy in the right upper lobe. No other abnormality or signs of metastatic disease are seen. 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 HENT: Negative. Eyes: Negative. Respiratory: Negative. Cardiovascular: Negative. Gastrointestinal: Negative. Endocrine: Negative. Genitourinary: Negative. Musculoskeletal: Negative. Skin: Negative. Allergic/Immunologic: Negative. Neurological: Negative. Hematological: Negative. Psychiatric/Behavioral: Negative. Physical Exam Vitals: BP 130/70 (BP Location: Left arm, Patient Position: Sitting, BP Cuff Size: Large adult) Pulse (!) 47 Wt 184 lb (83.5 kg) Constitutional: General: Not in acute distress. Appearance: Normal appearance. Not toxic-appearing. Ear, nose, mouth: Bilateral external ear and nose normal. Nose: Nose normal. Mouth: Appearance normal, no bleeding, moist mucus membranes Eyes: General: No scleral icterus. No discharge from bilateral eyes Extraocular Movements: Extraocular movements intact. Pupils equal and reactive bilaterally Cardiovascular: Heart: Regular rhythm but very slow. Normal heart sounds. Vascular: No carotid bruit. Edema: no edema in bilateral lower extremities Right leg a little more swollen Pulmonary: Effort: Pulmonary effort is normal. No respiratory distress. Breath sounds: Normal breath sounds. No wheezing. Chest wall: No tenderness. Abdominal: Appearance: Not distended Palpations: There is no abdominal tenderness, no guarding. Musculoskeletal: Bilateral upper and lower extremities: Normal range of motion, no deformity Head: Normocephalic and atraumatic. Neck: Normal range of motion and neck supple. No muscular tenderness. Lymphadenopathy: Cervical: No cervical adenopathy. Skin: General: Skin is warm and dry. Coloration: Skin is not jaundiced. Neurological: General: No focal deficit present. Cranial Nerves: No obvious cranial nerve deficit. Psychiatric: Mood and Affect: Mood normal. Thought Content: Thought content normal. Patient has good judgement and insight Mental Status: Alert and oriented to place, person, and time. Labs No results found for: WBC, HGB, PLT, NA, K, CREATININE Imaging PET/CT 12/07/24 CT Low Dose Lung Screening 11/17/24 CT Low Dose Lung Screening 11/16/24 CT Chest 10/14/2022 Patient Care Team: PCP: Marion Feng MD Cardiology: Jose Hylton MD Pulmonology: ANA Lomeli, [facility] Cardiothoracic Surgery [1] Past Medical History: Diagnosis Date COPD (chronic obstructive pulmonary disease) (HCC) GERD (gastroesophageal reflux disease) Hiatal hernia 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 Obesity FIFI (obstructive sleep apnea) Paroxysmal atrial fibrillation (HCC) Protein deficiency anemia Right bundle branch block [2] Past Surgical History: Procedure Laterality Date CARDIAC ABLATION P ROCEDURE (HISTORICAL) CARPAL TUNNEL RELEASE ROTATOR CUFF REPAIR Right TOTAL HIP ARTHROPLASTY [3] Family History Problem Relation Name Age of Onset Diabetes Father [4] Social History Tobacco Use Smoking status: Former Current packs/day: 0.00 Average packs/day: 0.5 packs/day for 50.4 years (25.2 ttl pk-yrs) Types: Cigarettes Start date: 1974 Quit date: 12/2024 Years since quittin.0 Smokeless tobacco: Never Substance Use Topics Alcohol use: Yes Alcohol/week: 1.0 standard drink of alcohol Types: 1 Cans of beer per week Drug use: Never [5] No Known Allergies [6] Current Outpatient Medications: Bfknzxc-Pvgupiykaxn-Dgvdzghmur (Breztri Aerosphere) 160-9-4.8 MCG/ACT aerosol, Inhale 2 Inhalations 2 times daily., Disp: , Rfl: buPROPion (Zyban) 150 MG 12 hr tablet, Take 150 mg by mouth 2 times daily. Do not crush, chew, or split., Disp: , Rfl: famotidine (Pepcid) 20 MG tablet, Take 20 mg by mouth daily., Disp: , Rfl: SBTOUUGOBTG-SKYOPSARN-FJV C-MN PO, Take 1 capsule by mouth daily., Disp: , Rfl: loratadine (Claritin) 10 MG tablet, Take 10 mg by mouth daily., Disp: , Rfl: metoprolol succinate XL (Toprol-XL) 25 MG 24 hr tablet, Take 25 mg by mouth daily. Do not crush or chew., Disp: , Rfl: simvastatin (Zocor) 20 MG tablet, Take 20 mg by mouth Nightly., Disp: , Rfl: warfarin (Coumadin) 5 MG tablet, Take 5 mg by mouth daily. Take as directed per After Visit Summary., Disp: , Rfl: fluticasone (Flonase) 50 MCG/ACT nasal spray, Administer 1 spray into each nostril daily. Shake gently. Before first use, prime pump. After use, clean tip and replace cap. (Patient not taking: Reported on 12/23/2024), Disp: , Rfl: [facility] 01-10-2025 Note H&P reviewed. The pa agustina was examined and there are no changes to the H&P. PFTs from [place] reviewed. FEV1 2.33/66%. DLCO 16.4/64%. Will proceed with right upper lobectomy today. Savanah Luna DO [facility] Cardiothoracic Surgery [facility] 01-10-2025 History and physical note H&P reviewed. The patient was examined and there are no changes to the H&P. PFTs from [place] reviewed. FEV1 2.33/66%. DLCO 16.4/64%. Will proceed with right upper lobectomy today. Savanah Luna DO [facility] Cardiothoracic Surgery Source Note - Sarah Luna DO - 12/23/2024 11:15 AM EDT Images from the original note were not included. [facility] CARDIOVASCULAR & THORACIC SURGERY [address] [facility] [address] [facility] [address] Dept: [phone] Dept Loc: [phone] Visit type: New Reason for Visit: Lung nodule Assessment: 1. Right upper lobe pulmonary nodule 2. Chronic obstructive pulmonary disease, unspecified COPD type (HCC) 3. Paroxysmal atrial fibrillation (HCC) 4. 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) 5. Warfarin anticoagulation 6. Former smoker Recommendations: After extensive discussion we have decided on surgical resection of this lung nodule. It is suspicious enough in appearance that removal is a reasonable maneuver, even without a biopsy. In fact, if a biopsy were performed and found to be negative, we would still recommend surgical resection just to be sure of the finding. This was all explained to him in detail. The risks were outlined as well. A robotic approach will be used for the operation. If his forthcoming PFTs are very poor then I may switch to doing a simple wedge resection, but as it is I am planning on a right upper lobectomy. He is willing to proceed as planned. History of Present Illness Rich James is a 69 y.o. male referred by ANA Lomeli for PET positive right apical nodule. Per note, patient with past medical history significant for paroxysmal A Fib, GERD, DVT, tobacco abuse. Pt completed regular CT lung screening on 11/17/24 which showed a new irregular right apical nodule measuring approximately 18 mm, and coronary artery calcification. A PET scan was performed, which demonstrated hypermetabolic right apical nodule and no evidence of metastatic disease. Patient recently quit smoking. Patient is currently taking warfarin. Patient is here today for an evaluation. He found this nodule on routine annual low dose CT screening. He denies any chest pain, shortness of breath, cough, hemoptysis, or weight loss. He quit smoking a couple weeks ago after about 50 years of 1 ppd. He takes warfarin for atrial fibrillation and a right leg DVT he had many years ago. He is not diabetic and has no other cancer history. His PET/CT was reviewed and appears very suspicious for a primary malignancy in the right upper lobe. No other abnormality or signs of metastatic disease are seen. 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 HENT: Negative. Eyes: Negative. Respiratory: Negative. Cardiovascular: Negative. Gastrointestinal: Negative. Endocrine: Negative. Genitourinary: Negative. Musculoskeletal: Negative. Skin: Negative. Allergic/Immunologic: Negative. Neurological: Negative. Hematological: Negative. Psychiatric/Behavioral: Negative. Physical Exam Vitals: BP 130/70 (BP Location: Left arm, Patient Position: Sitting, BP Cuff Size: Large adult) Pulse (!) 47 Wt 184 lb (83.5 kg) Constitutional: General: Not in acute distress. Appearance: Normal appearance. Not toxic-appearing. Ear, nose, mouth: Bilateral external ear and nose normal. Nose: Nose normal. Mouth: Appearance normal, no bleeding, moist mucus membranes Eyes: General: No scleral icterus. No discharge from bilateral eyes Extraocular Movements: Extraocular movements intact. Pupils equal and reactive bilaterally Cardiovascular: Heart: Regular rhythm but very slow. Normal heart sounds. Vascular: No carotid bruit. Edema: no edema in bilateral lower extremities Right leg a little more swollen Pulmonary: Effort: Pulmonary effort is normal. No respiratory distress. Breath sounds: Normal breath sounds. No wheezing. Chest wall: No tenderness. Abdominal: Appearance: Not distended Palpations: There is no abdominal tenderness, no guarding. Musculoskeletal: Bilateral upper and lower extremities: Normal range of motion, no deformity Head: Normocephalic and atraumatic. Neck: Normal range of motion and neck supple. No muscular tenderness. Lymphadenopathy: Cervical: No cervical adenopathy. Skin: General: Skin is warm and dry. Coloration: Skin is not jaundiced. Neurological: General: No focal deficit present. Cranial Nerves: No obvious cranial nerve deficit. Psychiatric: Mood and Affect: Mood normal. Thought Content: Thought content normal. Patient has good judgement and insight Mental Status: Alert and oriented to place, person, and time. Labs No results found for: WBC, HGB, PLT, NA, K, CREATININE Imaging PET/CT 12/07/24 CT Low Dose Lung Screening 11/17/24 CT Low Dose Lung Screening 11/16/24 CT Chest 10/14/2022 Patient Care Team: PCP: Marion Feng MD Cardiology: Jose Hylton MD Pulmonology: ANA Lomeli, DO [facility] Cardiothoracic Surgery [1] Past Medical History: Diagnosis Date COPD (chronic obstructive pulmonary disease) (HCC) GERD (gastroesophageal reflux disease) Hiatal hernia 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 Obesity FIFI (obstructive sleep apnea) Paroxysmal atrial fibrillation (HCC) Protein deficiency anemia Right bundle branch block [2] Past Surgical History: Procedure Laterality Date CARDIAC ABLATION P ROCEDURE (HISTORICAL) CARPAL TUNNEL RELEASE ROTATOR CUFF REPAIR Right TOTAL HIP ARTHROPLASTY [3] Family History Problem Relation Name Age of Onset Diabetes Father [4] Social History Tobacco Use Smoking status: Former Current packs/day: 0.00 Average packs/day: 0.5 packs/day for 50.4 years (25.2 ttl pk-yrs) Types: Cigarettes Start date: 1974 Quit date: 12/2024 Years since quittin.0 Smokeless tobacco: Never Substance Use Topics Alcohol use: Yes Alcohol/week: 1.0 standard drink of alcohol Types: 1 Cans of beer per week Drug use: Never [5] No Known Allergies [6] Current Outpatient Medications: Qgvrous-Ihfcbkmzzbv-Tncxbadadr (Breztri Aerosphere) 160-9-4.8 MCG/ACT aerosol, Inhale 2 Inhalations 2 times daily., Disp: , Rfl: buPROPion (Zyban) 150 MG 12 hr tablet, Take 150 mg by mouth 2 times daily. Do not crush, chew, or split., Disp: , Rfl: famotidine (Pepcid) 20 MG tablet, Take 20 mg by mouth daily., Disp: , Rfl: HSZYAEPFJOF-GADOGMPUL-LRN C-MN PO, Take 1 capsule by mouth daily., Disp: , Rfl: loratadine (Claritin) 10 MG tablet, Take 10 mg by mouth daily., Disp: , Rfl: metoprolol succinate XL (Toprol-XL) 25 MG 24 hr tablet, Take 25 mg by mouth daily. Do not crush or chew., Disp: , Rfl: simvastatin (Zocor) 20 MG tablet, Take 20 mg by mouth Nightly., Disp: , Rfl: warfarin (Coumadin) 5 MG tablet, Take 5 mg by mouth daily. Take as directed per After Visit Summary., Disp: , Rfl: fluticasone (Flonase) 50 MCG/ACT nasal spray, Administer 1 spray into each nostril daily. Shake gently. Before first use, prime pump. After use, clean tip and replace cap. (Patient not taking: Reported on 12/23/2024), Disp: , Rfl: documented in this encounter [facility] 12-29-2024 Note Patient: Rich garcia Procedure Information Date/Time: 01/10/25729 Procedure: ROBOTIC RIGHT UPPER LOBECTOMY (Right) Location: [facility] OR [address] [place] [address] Operating Room Surgeons: Sarah Luna DO Relevant Problems Anesthesia (+) FIFI (obstructive sleep apnea) Pulmonary (+) FIFI (obstructive sleep apnea) Past Medical History: Past Medical History: No date: COPD (chronic obstructive pulmonary disease) (HCC) No date: GERD (gastroesophageal reflux disease) No date: Hiatal hernia No date: 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 No date: Obesity No date: FIFI (obstructive sleep apnea) No date: Paroxysmal atrial fibrillation (HCC) No date: Protein deficiency anemia No date: Right bundle branch block Past Surgical History: Past Surgical History: No date: CARDIAC ABLATION P ROCEDURE (HISTORICAL) No date: CARPAL TUNNEL RELEASE; Right No date: ROTATOR CUFF REPAIR; Right No date: ROTATOR CUFF REPAIR; Left Comment: x 2 No date: TOTAL HIP ARTHROPLASTY; Right Social History: TOBACCO: reports that he quit smoking 10 days ago. His smoking use included cigarettes. He started smoking about 50 years ago. He has a 25.2 pack-year smoking history. He has never used smokeless tobacco. ETOH: reports current alcohol use of about 1.0 standard drink of alcohol per week. Social History Substance and Sexual Activity Drug Use Never Family History: Family History[1] Screening: unknown Clinical information reviewed: Tobacco Allergies Meds Med Hx Surg Hx Fam Hx Soc Hx Physical Exam Airway Mallampati: III TM distance: >3 FB Neck ROM: full Mouth Open: normal Cardiovascular Dental (+) Missing Comments: Molars upper and lower left and right Pulmonary Abdominal Anesthesia Plan patient is NPO appropriate Any family history or previous problems with anesthesia no ASA 3 general and regional Any family history or previous problems with anesthesia no The patient is not a current smoker. Anesthetic plan and risks discussed with patient. FIFI Screening Labs: No results found for: WBC, HGB, HCT, MCV, PLT No results found for: SODIUM, NA, POTASSIUM, K, CHLORIDE, CL, CO2, BUN, CREATININE, GLUCOSE, CALCIUM, PROT, BILIRUBINFL, ALKPHOS, AST, ALT, EGFR, GLOB No echocardiogram results found for the past 14 days No results found for this or any previous visit. Equipment Requests: Additional Equipment Requests Tube type: double lumen Blood Equipment: warmer Vascular Equipment: arterial line kit, single transducer and 2nd IV Additional Equipment: ultrasound Block Team and Induction Team [1] Family History Problem Relation Name Age of Onset Diabetes Father [facility] 12-29-2024 Note Name: Rich toro : 1955 (Age-69 y.o.) Date of Service: Pt seen/examined on 12/29/2024 Procedure Information Date/Time: 01/10/25 84 Procedure: ROBOTIC RIGHT UPPER LOBECTOMY (Right) Location: [facility] OR [address] [place] [address] Operating Room Surgeons: Sarah Luna DO Chief Complaint: Solitary pulmonary nodule Per patient found on routine CT of chest ASSESSMENT/PLAN: This surgery is an intermediate level 3 risk procedure/surgery () with no reducible risk factors. Based on the above evaluation, the benefits of the planned procedure likely exceed the risks. The patient is medically optimized to proceed with the planned procedure without any further cardiopulmonary testing. 1) Solitary pulmonary nodule [R91.1] - Managed per surgery 2) Atrial Fibrillation with hx of DVT - type - stable - Managed by Dr Hylton - Patient reports compliance to medication and is currently yes asymptomatic - Anticoagulated: managed on coumadin. Plan is to hold for 5 days prior to surgery per PAT protocol. Patient states he is seen cardiology in [place], Dr Koo , tomorrow and will bridge with Lovenox injections. Toxic Drug Monitoring: Drug: coumadin Monitoring: EKG - yes Labs: BMP, CBC 3) FIFI - Compliant with home device - yes - Instructed pt to bring machine DOS. - Also, encouraged pt use machine at HS as directed, most specifically the night before surgery. - Consider higher level of care (continuous pulse ox) with this patient due to FIFI and increased risks. - EKG yes - CBC pending: yes 4) Anemia - source - unknown - has required a blood transfusion - No - H&H or CBC pending: yes 5)COPD - Managed by pcp - Status: controlled - Lung sounds clear on exam - Continue inhalers/nebulizers day of surgery - Oxygen therapy - No Toxic Drug Monitoring: Drug: Breztri Monitoring: EKG: yes Labs: CBC 6)GERD and hiatal hernia -on H2 donna/PPI - Yes, famotidine -avoidance of triggers encouraged 7)Former smoker quit 2 weeks - 1 pack(s) a day for about 50 years - EKG - yes - CBC/H&H pending - yes Visit Type: Pre-Admission Testing Visit Labs Ordered: YES - PER PAT PROTOCOL Cbc bmp type and screen and protime Sleep Referral Ordered: NO - ALREADY DIAGNOSED WITH IFFI AND COMPLIANT WITH CPAP Total time spent (which include face to face and non face to face encounters) : 30 minutes Toxic drug monitoring/narrow therapeutic index drug monitoring : # Drug name : coumadin # Route administered : po # Method of monitoring : INR PAT Protocol referenced includes: 1. Anesthesia Lab Protocol Orders 2. Perioperative Cardiovascular Risk Assessment 3. Anesthesia Assessment 4. Pain Assessment and Acute Pain Service Consult (if appropriate) 5. Medical Clearance/Consult from Internal Medicine (IMS) 6. Shower/Wash Order (for designated surgeries) 7. FIFI Screen and Sleep Clinic Referral (if appropriate) History Of Present Illness: 69 y.o. male who we are asked to see/evaluate by [facility] 03 for pre-operative evaluation prior to . Case: [id number] Date/Time: 01/10/25 0730 Procedure: ROBOTIC RIGHT UPPER LOBECTOMY (Right) [67121 CPT(R)] Anesthesia type: General Office notes Dr Luna 12/23/2024 Assessment: 1. Right upper lobe pulmonary nodule 2. Chronic obstructive pulmonary disease, unspecified COPD type (HCC) 3. Paroxysmal atrial fibrillation (HCC) 4. 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) 5. Warfarin anticoagulation 6. Former smoker Recommendations: After extensive discussion we have decided on surgical resection of this lung nodule. It is suspicious enough in appearance that removal is a reasonable maneuver, even without a biopsy. In fact, if a biopsy were performed and found to be negative, we would still recommend surgical resection just to be sure of the finding. This was all explained to him in detail. The risks were outlined as well. A robotic approach will be used for the operation. If his forthcoming PFTs are very poor then I may switch to doing a simple wedge resection, but as it is I am planning on a right upper lobectomy. He is willing to proceed as planned. History of Present Illness Rich James is a 69 y.o. male referred by ANA Lomeli for PET positive right apical nodule. Per note, patient with past medical history significant for paroxysmal A Fib, GERD, DVT, tobacco abuse. Pt completed regular CT lung screening on 11/17/24 which showed a new irregular right apical nodule measuring approximately 18 mm, and coronary artery calcification. A PET scan was performed, which demonstrated hypermetabolic right apical nodule and no evidence of metastatic disease. Patient recently quit smoking. Patient is currently taking warfarin. Patient is here today for an evaluation. He fou (more content not included)... [facility] 12-24-2024 Telephone encounter Note Surg proc orders placed. MARCOS Locke CNP 12/24/24 [facility] Work Phone: 12-24-2024 Miscellaneous Notes Surg proc orders placed. MARCOS Locke CNP 12/24/24 Prep for Procedure Order Request: 12/24/24 Surgeon: Jeremy Surgery/Procedure: Robotic Right upper lobectomy Diagnosis: lung nodule Plan Admit: yes PAT Appointment: yes Date if yes: 12/29/24 2:30 pm Date of Surgery/Procedure: 01/10/25 7:30 am Medications: [] Hold as directed by CTS: [x] Per PAT protocol Medication needed prescribed: [x] None [] Nasal ointment and mouth rinse [] Other: documented in this encounter [facility] 12-24-2024 Note Prep for Procedure O rder Request: 12/24/24 Surgeon: Jeremy Surgery/Procedure: Robotic Right upper lobectomy Diagnosis: lung nodule Plan Admit: yes PAT Appointment: yes Date if yes: 12/29/24 2:30 pm Date of Surgery/Procedure: 01/10/25 7:30 am Medications: [] Hold as directed by CTS: [x] Per PAT protocol Medication needed prescribed: [x] None [] Nasal ointment and mouth rinse [] Other: [facility] 12-24-2024 Telephone encounter Note Prep for Procedure Order Request: 12/24/24 Surgeon: Jeremy Surgery/Procedure: Robotic Right upper lobectomy Diagnosis: lung nodule Plan Admit: yes PAT Appointment: yes Date if yes: 12/29/24 2:30 pm Date of Surgery/Procedure: 01/10/25 7:30 am Medications: [] Hold as directed by CTS: [x] Per PAT protocol Medication needed prescribed: [x] None [] Nasal ointment and mouth rinse [] Other: [facility] 12-23-2024 History of Presen t illness Narrative Images from the original note were not included. [facility] CARDIOVASCULAR & THORACIC SURGERY [address] [place] [id number] Dept: [phone] Dept Loc: [phone] Visit type: New Reason for Visit: Lung nodule Assessment: 1. Right upper lobe pulmonary nodule 2. Chronic obstructive pulmonary disease, unspecified COPD type (HCC) 3. Paroxysmal atrial fibrillation (HCC) 4. 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) 5. Warfarin anticoagulation 6. Former smoker Recommendations: After extensive discussion we have decided on surgical resection of this lung nodule. It is suspicious enough in appearance that removal is a reasonable maneuver, even without a biopsy. In fact, if a biopsy were performed and found to be negative, we would still recommend surgical resection just to be sure of the finding. This was all explained to him in detail. The risks were outlined as well. A robotic approach will be used for the operation. If his forthcoming PFTs are very poor then I may switch to doing a simple wedge resection, but as it is I am planning on a right upper lobectomy. He is willing to proceed as planned. History of Present Illness Rich James is a 69 y.o. male referred by ANA Lomeli for PET positive right apical nodule. Per note, patient with past medical history significant for paroxysmal A Fib, GERD, DVT, tobacco abuse. Pt completed regular CT lung screening on 11/17/24 which showed a new irregular right apical nodule measuring approximately 18 mm, and coronary artery calcification. A PET scan was performed, which demonstrated hypermetabolic right apical nodule and no evidence of metastatic disease. Patient recently quit smoking. Patient is currently taking warfarin. Patient is here today for an evaluation. He found this nodule on routine annual low dose CT screening. He denies any chest pain, shortness of breath, cough, hemoptysis, or weight loss. He quit smoking a couple weeks ago after about 50 years of 1 ppd. He takes warfarin for atrial fibrillation and a right leg DVT he had many years ago. He is not diabetic and has no other cancer history. His PET/CT was reviewed and appears very suspicious for a primary malignancy in the right upper lobe. No other abnormality or signs of metastatic disease are seen. 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 HENT: Negative. Eyes: Negative. Respiratory: Negative. Cardiovascular: Negative. Gastrointestinal: Negative. Endocrine: Negative. Genitourinary: Negative. Musculoskeletal: Negative. Skin: Negative. Allergic/Immunologic: Negative. Neurological: Negative. Hematological: Negative. Psychiatric/Behavioral: Negative. Physical Exam Vitals: BP 130/70 (BP Location: Left arm, Patient Position: Sitting, BP Cuff Size: Large adult) Pulse (!) 47 Wt 184 lb (83.5 kg) Constitutional: General: Not in acute distress. Appearance: Normal appearance. Not toxic-appearing. Ear, nose, mouth: Bilateral external ear and nose normal. Nose: Nose normal. Mouth: Appearance normal, no bleeding, moist mucus membranes Eyes: General: No scleral icterus. No discharge from bilateral eyes Extraocular Movements: Extraocular movements intact. Pupils equal and reactive bilaterally Cardiovascular: Heart: Regular rhythm but very slow. Normal heart sounds. Vascular: No carotid bruit. Edema: no edema in bilateral lower extremities Right leg a little more swollen Pulmonary: Effort: Pulmonary effort is normal. No respiratory distress. Breath sounds: Normal breath sounds. No wheezing. Chest wall: No tenderness. Abdominal: Appearance: Not distended Palpations: There is no abdominal tenderness, no guarding. Musculoskeletal: Bilateral upper and lower extremities: Normal range of motion, no deformity Head: Normocephalic and atraumatic. Neck: Normal range of motion and neck supple. No muscular tenderness. Lymphadenopathy: Cervical: No cervical adenopathy. Skin: General: Skin is warm and dry. Coloration: Skin is not jaundiced. Neurological: General: No focal deficit present. Cranial Nerves: No obvious cranial nerve deficit. Psychiatric: Mood and Affect: Mood normal. Thought Content: Thought content normal. Patient has good judgement and insight Mental Status: Alert and oriented to place, person, and time. Labs No results found for: WBC, HGB, PLT, NA, K, CREATININE Imaging PET/CT 12/07/24 CT Low Dose Lung Screening 11/17/24 CT Low Dose Lung Screening 11/16/24 CT Chest 10/14/2022 Patient Care Team: PCP: Marion Feng MD Cardiology: Jose Hylton MD Pulmonology: ANA Lomeli, [facility] Cardiothoracic Surgery [1] Past Medical History: Diagnosis Date COPD (chronic obstructive pulmonary disease) (HCC) GERD (gastroesophageal reflux disease) Hiatal hernia 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 Obesity FIFI (obstructive sleep apnea) Paroxysmal atrial fibrillation (HCC) Protein deficiency anemia Right bundle branch block [2] Past Surgical History: Procedure Laterality Date CARDIAC ABLATION P ROCEDURE (HISTORICAL) CARPAL TUNNEL RELEASE ROTATOR CUFF REPAIR Right TOTAL HIP ARTHROPLASTY [3] Family History Problem Relation Name Age of Onset Diabetes Father [4] Social History Tobacco Use Smoking status: Former Current packs/day: 0.00 Average packs/day: 0.5 packs/day for 50.4 years (25.2 ttl pk-yrs) Types: Cigarettes Start date: 1974 Quit date: 12/2024 Years since quittin.0 Smokeless tobacco: Never Substance Use Topics Alcohol use: Yes Alcohol/week: 1.0 standard drink of alcohol Types: 1 Cans of beer per week Drug use: Never [5] No Known Allergies [6] Current Outpatient Medications: Nrtuyzu-Gkosqjfcxkm-Jrqwuvgyho (Breztri Aerosphere) 160-9-4.8 MCG/ACT aerosol, Inhale 2 Inhalations 2 times daily., Disp: , Rfl: buPROPion (Zyban) 150 MG 12 hr tablet, Take 150 mg by mouth 2 times daily. Do not crush, chew, or split., Disp: , Rfl: famotidine (Pepcid) 20 MG tablet, Take 20 mg by mouth daily., Disp: , Rfl: ONXPWRFCFDS-BWBZGWBNT-DLJ C-MN PO, Take 1 capsule by mouth daily., Disp: , Rfl: loratadine (Claritin) 10 MG tablet, Take 10 mg by mouth daily., Disp: , Rfl: metoprolol succinate XL (Toprol-XL) 25 MG 24 hr tablet, Take 25 mg by mouth daily. Do not crush or chew., Disp: , Rfl: simvastatin (Zocor) 20 MG tablet, Take 20 mg by mouth Nightly., Disp: , Rfl: warfarin (Coumadin) 5 MG tablet, Take 5 mg by mouth daily. Take as directed per After Visit Summary., Disp: , Rfl: fluticasone (Flonase) 50 MCG/ACT nasal spray, Administer 1 spray into each nostril daily. Shake gently. Before first use, prime pump. After use, clean tip and replace cap. (Patient not taking: Reported on 12/23/2024), Disp: , Rfl: documented in this encounter [facility] 12-23-2024 Note [facility] CARDIOVASCULAR [facility] THORACIC SURGERY [address] [facility] [address] [facility] [id number] Dept: [phone] Dept Loc: [phone] Visit type: New Reason for Visit: Lung nodule Assessment: 1. Right upper lobe pulmonary nodule 2. Chronic obstructive pulmonary disease, unspecified COPD type (HCC) 3. Paroxysmal atrial fibrillation (HCC) 4. 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) 5. Warfarin anticoagulation 6. Former smoker Recommendations: After extensive discussion we have decided on surgical resection of this lung nodule. It is suspicious enough in appearance that removal is a reasonable maneuver, even without a biopsy. In fact, if a biopsy were performed and found to be negative, we would still recommend surgical resection just to be sure of the finding. This was all explained to him in detail. The risks were outlined as well. A robotic approach will be used for the operation. If his forthcoming PFTs are very poor then I may switch to doing a simple wedge resection, but as it is I am planning on a right upper lobectomy. He is willing to proceed as planned. History of Present Illness Rich James is a 69 y.o. male referred by ANA Lomeli for PET positive right apical nodule. Per note, patient with past medical history significant for paroxysmal A Fib, GERD, DVT, tobacco abuse. Pt completed regular CT lung screening on 11/17/24 which showed a new irregular right apical nodule measuring approximately 18 mm, and coronary artery calcification. A PET scan was performed, which demonstrated hypermetabolic right apical nodule and no evidence of metastatic disease. Patient recently quit smoking. Patient is currently taking warfarin. Patient is here today for an evaluation. He found this nodule on routine annual low dose CT screening. He denies any chest pain, shortness of breath, cough, hemoptysis, or weight loss. He quit smoking a couple weeks ago after about 50 years of 1 ppd. He takes warfarin for atrial fibrillation and a right leg DVT he had many years ago. He is not diabetic and has no other cancer history. His PET/CT was reviewed and appears very suspicious for a primary malignancy in the right upper lobe. No other abnormality or signs of metastatic disease are seen. 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 HENT: Negative. Eyes: Negative. Respiratory: Negative. Cardiovascular: Negative. Gastrointestinal: Negative. Endocrine: Negative. Genitourinary: Negative. Musculoskeletal: Negative. Skin: Negative. Allergic/Immunologic: Negative. Neurological: Negative. Hematological: Negative. Psychiatric/Behavioral: Negative. Physical Exam Vitals: BP 130/70 (BP Location: Left arm, Patient Position: Sitting, BP Cuff Size: Large adult) Pulse (!) 47 Wt 184 lb (83.5 kg) Constitutional: General: Not in acute distress. Appearance: Normal appearance. Not toxic-appearing. Ear, nose, mouth: Bilateral external ear and nose normal. Nose: Nose normal. Mouth: Appearance normal, no bleeding, moist mucus membranes Eyes: General: No scleral icterus. No discharge from bilateral eyes Extraocular Movements: Extraocular movements intact. Pupils equal and reactive bilaterally Cardiovascular: Heart: Regular rhythm but very slow. Normal heart sounds. Vascular: No carotid bruit. Edema: no edema in bilateral lower extremities Right leg a little more swollen Pulmonary: Effort: Pulmonary effort is normal. No respiratory distress. Breath sounds: Normal breath sounds. No wheezing. Chest wall: No tenderness. Abdominal: Appearance: Not distended Palpations: There is no abdominal tenderness, no guarding. Musculoskeletal: Bilateral upper and lower extremities: Normal range of motion, no deformity Head: Normocephalic and atraumatic. Neck: Normal range of motion and neck supple. No muscular tenderness. Lymphadenopathy: Cervical: No cervical adenopathy. Skin: General: Skin is warm and dry. Coloration: Skin is not jaundiced. Neurological: General: No focal deficit present. Cranial Nerves: No obvious cranial nerve deficit. Psychiatric: Mood and Affect: Mood normal. Thought Content: Thought content normal. Patient has good judgement and insight Mental Status: Alert and oriented to place, person, and time. Labs No results found for: WBC, HGB, PLT, NA, K, CREATININE Imaging PET/CT 12/07/24 CT Low Dose Lung Screening 11/17/24 CT Low Dose Lung Screening more content not included)... [facility] 12-02-2024 Evaluation note Diagnosis Onset Date Resolution Right upper lobe pulmonary nodule acute December 02, 2024 7:47am FIFI (obstructive sleep apnea) chronic December 02, 2024 7:47am Smoking greater than 40 pack years chronic December 02, 2024 7:47am Stage 1 mild COPD by GOLD classification chronic December 02 7:47am Right upper lobe pulmonary nodule acute December 10, 2024 8:37am FIFI (obstructive sleep apnea) chronic December 10, 2024 8:37am Smoking greater than 40 pack years chronic December 10, 2024 8:37am Stage 1 mild COPD by GOLD classification chronic December 10 8:37am [facility] Work Phone: [phone] 479-823310-16-2023 NoteHNO ID: [id number] Author: Aylin Mathew MD Service: ? Author Type: Physician Type: Progress Notes Filed: 05/05/2023 8:38 AM Note Text: Heart and Vascular [facility] SECTION OF CARDIAC PACING and ELECTROPHYSIOLOGY OUTPATIENT VISIT DATE May 05, 2023 OUTPATIENT VISIT TYPE NEW PRIMARY CARE PHYSICIAN: Marion Feng [address] [place] [id number] REFERRING PHYSICIAN: SELF CHIEF COMPLAINT: Follow up fo rh.o PAF HISTORY OF PRESENT ILLNESS: He has a h.o COPD, Prior right LE DVT, PRotein C deficiency on COumadin, Persistent AF despite Flecainide Recurred post DCCV s/p RFA with PVAI and CTI 08/05/22 with post RFA EF 62% Dr Mathew oV 05/05/23 Rich James is a 67 year old year old MALE and is here for follow up. He states that he has been feeling well. He is able to do his activities of daily living and on his job he has to walk quite a bit and has no symptoms. No chest pain palpitation dizziness lower extremity edema orthopnea PND external bleeding neurologic symptoms. His biggest current issue is smoking about a pack a day or slightly less than that. No other cardiac symptoms. Nikita Ortiz OV 01/27/23 - follow-up regarding history of persistent atrial fibrillation. Overall patient reports feeling excellent. 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 He denies any symptoms of recurrent AF, angina, dizziness, lightheadedness, near-syncope, shortness of breath, worsening activity tolerance, or constitutional symptoms. He reports this is the best he has felt in years. Patient is compliant with his Toprol-XL and Coumadin regimens. He is a [id number] of 3 secondary to age and DVT. He follows with Dr. Hylton for his INR monitoring. Echo from October 2022 showed an ejection fraction of 62%. Left and right atrial cavity mildly dilated. Twelve-lead performed in office today showed sinus bradycardia with ventricular rate of 47 Nikita Ortiz OV 11/05/22 - for 3-month follow-up status post radiofrequency PVI with Dr. Mathew on 08/05/2022... Previously when he was experiencing A-fib indicates around noon or 1:00 he would be exhausted. He is now going through his workday without difficulty. Patient states this is the best he is felt in years. ...EKG performed in office showed sinus bradycardia with PACs and a ventricular rate of 46. We discussed this patient is taking Toprol-XL 50 mg (2 of the 25 mg tabs) in the mornings. I advised the patient that his heart rate is a little low and that we should probably go down to 1 tab once a day. Pat... Patient believes he may have had 1 episode early on post ablation of A-fib but this was very brief lasting only a few hours. Patient is compliant with his Toprol-XL and Coumadin regimens. CT of chest was performed at [facility] and showed no concerning findings. Surface echo and Holter monitor results currently pending. Dr Mathew OV 05/15/22 - to discuss options for Atrial fibrillation. He has a history of chronic LE venous thromboembolism and Protein C deficiency and is on coumadin. He says that years ago when he had a hip issue he was detected to have lower extremity blood clot and that led to the diagnosis of routine C deficiency and long-term warfarin use. He has never had any blood clots in his lung. In December 2018 at home he had a initial episode of lightheadedness was done on the sofa got up and the next thing he was on the floor with loss of consciousness and injured his right shoulder. The cause of the loss of consciousness was unclear. He then was evaluated by Dr. Hylton and subsequently detected to have paroxysmal atrial fibrillation. He was started on metoprolol for rate control and not for hypertension. In the last few months his atrial fibrillation has become persistent....usually gets fatigued by the middle of the day. About 2 months ago he had an elective cardioversion and for 4 to 5 days noticed a significant improvement in his energy level. He went out of atrial fibrillation and his symptom of fatigue returned.. 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 ETOH - No Family History - Youngest of 6 siblings. No premature CAD. Brother has Blood clots and AF, Sister has COPD. These are his two oldest siblings. Others are . Parents had stroke. Mother had aneurysm. A brother had an aneurysm. Ambulatory monitor 24Hours- Avg HR 94 in Af 51 - 148 Longest RR 1.8s. One 7 beat run of NSVT. ECG 04/11/22 - AF 79bpm QRS 120 QT 394 Qtc 427 Holter 24 h 12/05/22 - SR 42 to 92 avg 58 PAC 0.3% No pause PVC 0.6% Tte 11/05/22 - ANGELES 35 LA vol 74 EF 62 - The left ventricle is normal in size. Left ventricular systolic fun (more content not included)...[facility]10-16-[facility]23 Instructions* Patient Instructions* Aylin Mathew MD - 05/05/2023 8:36 AM EDT We discussed that there is a chance for recurrence of atrial fibrillation. We discussed about some of the triggers for atrial fibrillation such as stress dehydration infections. We discussed about continued exercise. We discussed about quitting smoking because that is one of the most significant risk factors for variety of health conditions. From an EP perspective follow-up as needed and please follow-up with Dr. Hylton and get metoprolol prescription renewed with Dr. Hylton If that is more convenient. If unable to do so we will be happy to renew metoprolol. continue oral anticoagulation if any bleeding occurs seek immediate medical attention if any symptoms of stroke call 911. Sinus bradycardia we discussed about monitoring heart rates once a month and if heart rates tend togo lower and constant dizziness or shortness of breath we may need to consider other treatment options for symptomatic slow heart rates. We discussed the role of anticoagulation, the risks, benefits, limitations, sr. strategic sourcing manager implications and alternatives. We discussed warfarin as well as the novel oral anticoagulants (NOACS) and compared the pros and cons of each. We discussed the role for prevention of thromboembolism as well as the potential risks of bleeding, including techniques to minimize risks. We discussed being assessed with any head injury or signs of bleeding, including periodically checking stool for signs of bleeding and melena. They indicated that they understand and I addressed their questions. [facility] History of Present illness Narrative* Aylin Mathew MD - 05/05/2023 8:14 AM EDT Images from the original note were not included. Heart and Vascular [facility] SECTION OF CARDIAC PACING and ELECTROPHYSIOLOGY OUTPATIENT VISIT DATE May 05, 2023 OUTPATIENT VISIT TYPE NEW PRIMARY CARE PHYSICIAN: Marion Feng [address] [address] REFERRING PHYSICIAN: SELF CHIEF COMPLAINT: Follow up fo rh.o PAF HISTORY OF PRESENT ILLNESS: He has a h.o COPD, Prior right LE DVT, PRotein C deficiency on COumadin, Persistent AF despite Flecainide Recurred post DCCV s/p RFA with PVAI and CTI 08/05/22 with post RFA EF 62% Dr Mathew oV 05/05/23 Rich James is a 67 year old year old MALE and is here for follow up.He states that he has been feeling well. He is able to do his activities of daily living and on hisjob he has to walk quite a bit and has no symptoms. No chest pain palpitation dizziness lower extremity edema orthopnea PND external bleeding neurologic symptoms. His biggest current issue is smoking about a pack a day or slightly less than that. No other cardiac symptoms. Nikita Ortiz OV 01/27/23 - follow-up regarding history of persistent atrial fibrillation. Overall patient reports feeling excellent. 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 He denies any symptoms of recurrent AF, angina, dizziness, lightheadedness, near-syncope, shortness of breath, worsening activity tolerance, or constitutional symptoms. He reports this is the best he has felt in years. Patient is compliant with his Toprol-XL and Coumadin regimens. He is a [id number] of 3 secondary to age and DVT. He follows with Dr. Hylton for his INR monitoring. Echo from October 2022 showed anejection fraction of 62%. Left and right atrial cavity mildly dilated. Twelve-lead performed in office today showed sinus bradycardia with ventricular rate of 47 Nikita Ortiz OV 11/05/22 - for 3-month follow-up status post radiofrequency PVI with Dr. Mathew on 08/05/2022... Previously when he was experiencing A-fib indicates around noon or 1:00 he would be exhausted. He is now going through his workday without difficulty. Patient states this is the best he is felt in years. ...EKG performed in office showed sinus bradycardia with PACs and a ventricular rate of 46. We discussed this patient is taking Toprol-XL 50 mg (2 of the 25 mg tabs) in the mornings. I advised the patient that his heart rate is a little low and that we should probably go down to 1 tab once a day. Pat... Patient believes he may have had 1 episode early on post ablation of A-fib but this was very brief lasting only a few hours. Patient is compliant with his Toprol-XL and Coumadin regimens. CT of chest was performed at [facility] and showed no concerning findings. Surface echo and Holter monitor results currently pending. Dr Mathew OV 05/15/22 - to discuss options for Atrial fibrillation. He has a history of chronic LE venous thromboembolism and Protein C deficiency and is on coumadin. He says that years ago when he had a hip issue he was detected to have lower extremity blood clot and that led to the diagnosis of routine C deficiency and long-term warfarin use. He has never had anyblood clots in his lung. In December 2018 at home he had a initial episode of lightheadedness was done on the sofa got up and the next thing he was on the floor with loss of consciousness and injured his right shoulder. The cause of the loss of consciousness was unclear. He then was evaluated by Dr. Hylton and subsequently detected to have paroxysmal atrial fibrillation. He was started on metoprolol for rate control and not for hypertension. In the last few months his atrial fibrillation has become persistent....usually gets fatigued by the middle of the day. About 2 months ago he had an elective cardioversion and for 4 to 5 days noticed a significant improvement in his energy level. He went out of atrial fibrillation and his symptom of fatigue returned.. 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 ETOH - No Family History - Youngest of 6 siblings. No premature CAD. Brother has Blood clots and AF, Sister has COPD. These are his two oldest siblings. Others are . Parents had stroke. Mother had aneurysm. A brother had an aneurysm. Ambulatory monitor 24Hours- Avg HR 94 in Af 51 - 148 Longest RR 1.8s. One 7 beat run of NSVT. ECG 04/11/22 - AF 79bpm QRS 120 QT 394 Qtc 427 Holter 24 h 12/05/22 - SR 42 to 92 avg 58 PAC 0.3% No pause PVC 0.6% Tte 11/05/22 - ANGELES 35 LA vol 74 EF 62 - The left ventricle is normal in size. Left ventricular systolic function is normal. EF = 62 5% (2D biplane) Normal left ventricular diastolic function. - The right ventricle is normal in size. Right ventricular systolic function is normal. - The left atrial cavity is mildly dilated. - The right atrial cavity is mildly dilated. - There are no significant valvular abnormalities. ECHO report 03/13/20 -- nl LV size and SF EF 55% Nl RV size and systolic fn. Mild LAE Moderate YARED Mild TR PASP 28 nl MV. AoV is not well visualized. Report of Pharmacological Stress test 03/13/2020 - Gated SPECT EF 41%. Conclusion AF, Myocardial perfusion scan with no evidence of ischemia. Preserved Ejection fraction. 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 Mathew on 08/05/2022. THROMBOPHLEBITIS NOS 03/29/2005 right leg Tobacco use disorder 10/14/2006 Traumatic complete tear of right rotator cuff 01/06/2020 Venous (peripheral) insufficiency 04/01/2005 PAST SURGICAL HISTORY Procedure Laterality Date ARTHRP ACETBLR/PROX FEM PROSTC AGRFT/ALGRFT Hip replacement, total, Right COLONOSCOPY FLX DX W/COLLJ SPEC WHEN PFRMD 01/07/2014 Colonoscopy COLONOSCOPY FLX DX W/COLLJ SPEC WHEN PFRMD 05/05/2017 10 year repeat NEUROPLASTY &/TRANSPOS MEDIAN NRV CARPAL TUNNE Carpal tunnel decomp, Right OPEN REPAIR OF ROTATOR CUFF ACUTE November 2010 Rotator cuff repair, Right SOCIAL HISTORY Social History Tobacco Use Smoking status: Every Day Packs/day: 1.00 Years: 40.00 Additional pack years: 0.00 Total pack years: 40.00 Types: Cigarettes Smokeless tobacco: Never Substance Use Topics Alcohol use: No Comment: seldom Drug use: No FAMILY HISTORY Problem Relation Age of Onset Hypertension Mother aneurysm Diabetes Father Cancer Brother liver COPD Brother other (Pulmonary Embolism) Brother blood clots Arthritis Sister osteoarthritis ALLERGIES: MEDICATIONS: CPAP^daily at bedtime.^Disp: ^Rfl: FAMOTIDINE ORAL^Take 20 mg by mouth once daily.^Disp: ^Rfl: fluticasone (FLONASE) 50 mcg/actuation nasal spray^Use 1-2 Sprays in each nostril once daily.^Disp:1 Bottle^Rfl: 11 GLUCOSAMINE CHONDROITIN MAXSTR 500 MG-400 MG ORAL CAP^Take 2 capsules by mouth once daily.^Disp: ^Rfl: 0 loratadine (CLARITIN) 10 mg tablet^Take 10 mg by mouth once daily.^Disp: ^Rfl: loratadine-pseudoephedrine ER (CLARITIN-D 24 HOUR) 10-240 mg Tb24^Take 1 tablet by mouth once daily.^Disp: 30 tablet^Rfl: 5 (Patient not taking: Reported on 05/15/2022) metoprolol succinate ER (TOPROL XL) 25 mg 24 hr tablet^Take 1 tablet by mouth once daily.^Disp: 90 tablet^Rfl: 3 Miscellaneous Medical Supply (COMPRESSION STOCKINGS) [facility]^Use as directed (Pressure 30-40mmHg)to Right Leg Dx 453.9 459.81^Disp: 4 Each^Rfl: 1 simvastatin (ZOCOR) 20 mg tablet^Take 1 tablet by mouth daily at bedtime.^Disp: 90 tablet^Rfl: 1 umeclidinium-vilanterol (ANORO ELLIPTA) 62.5-25 mcg/actuation inhaler^Inhale 1 Puff as instructed once daily.^Disp: ^Rfl: warfarin (COUMADIN) 5 mg tablet^Take 1 tablet by mouth once daily. Take 1.5 tablets (7.5mg) on Wednesdays and 1 tablet (5mg) al other days as directed.^Disp: 100 tablet^Rfl: 1 REVIEW OF SYSTEMS: General - Appetite is normal. No fever chills Respiratory - No cough wheezing pleuritic pain GI - No nausea vomiting diarrhea No burning micturition. Hematology - No external bleeding. No recent diagnosis of cancer Neurology - No falls, No new unilateral numbness tingling weakness Musculoskeletal - occasional wrist pain PHYSICAL EXAMINATION: Physical Exam Normal build. Adequately nourished Comfortable at rest. Neck supple. Carotid normal upstroke and volume Mean JVP is normal Chest is symmetrical, Lungs Good bilateral air entry. Cardiac Rhythm is regular normal intensity S1-S2 Extremities - no edema right lower extremity and pressure stocking Neurological -alert oriented x3 speech is normal BP 115/66 (BP Site: Left Arm, BP Position: Sitting, BP Cuff Size: Regular Adult) Pulse (!) 52 Ht 5' 10 (1.778 m) Wt 200 lb (90.7 kg) SpO2 98% BMI 28.70 kg/m BP w/Orthostatic Vitals Date and Time Orthostatic BP Orthostatic Pulse BP Pulse BP Position BP Site BP Cuff Size 10/16/23 0754 -- -- 115/66 52 Sitting Left Arm Regular Adult EKG 05/05/23 sinus bradycardia 40 bpm FL 166 QRS 118 right bundle branch block QT [address]-T segment I have personally reviewed the Electrocardiogram IMPRESSION, PLAN AND RECOMMENDATIONS: Mr. James is a 67 year old male Persistent atrial fibrillation s/p PVI and CTI July 2022 currently doing well. We discussed thatthere is a chance for recurrence of atrial fibrillation. We discussed about some of the triggers for atrial fibrillation such as stress dehydration infections. We discussed about continued exercise. We discussed about quitting smoking because that is one of the most significant risk factors for variety of health conditions. From an EP perspective follow-up as needed and he can follow-up with Dr. Hylton and get his metoprolol prescription renewed with Dr. Hylton if that is more convenient. If unable to do so we will be happy to renew metoprolol. Sinus bradycardia we discussed about monitoring heart rates once a month and if heart rates tend togo lower and constant dizziness or shortness of breath we may need to consider other treatment options for symptomatic slow heart rates. At risk for stroke continue oral anticoagulation if any bleeding occurs seek immediate medical attention if any symptoms of stroke call 911. Aylin Mathew MD This note was partially generated using [employer] voice recognition system. documented in this encounterHolzer [facility] – [place]07-10-2023 NoteHNO ID: [id number] Author: Nikita Ortiz APRN.PERSONAL CAREGIVER Service: ? Author Type: Nurse Practitioner Type: Progress Notes Filed: 01/27/2023 9:09 AM Note Text: [facility] General Cardiology Electrophysiology PRIMARY CARE PHYSICIAN: Marion Feng [address] [address] CHIEF COMPLAINT: Persistent atrial fibrillation. HISTORY OF PRESENT ILLNESS (copied from my previous office note on 11/05/2022): Rich is a pleasant 66-year-old gentleman who presents today for 3-month follow-up status post radiofrequency PVI with Dr. Mathew on 08/05/2022. Overall patient reports he has been feeling very well lately. 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 Previously when he was experiencing A-fib indicates around noon or 1:00 he would be exhausted. He is now going through his workday without difficulty. Patient states this is the best he is felt in years. Presently denies angina, shortness of breath, worsening activity tolerance, or constitutional symptoms. Patient denies weakness, dizziness, lightheadedness, or syncope. EKG performed in office showed sinus bradycardia with PACs and a ventricular rate of 46. We discussed this patient is taking Toprol-XL 50 mg (2 of the 25 mg tabs) in the mornings. I advised the patient that his heart rate is a little low and that we should probably go down to 1 tab once a day. Patient verbalized understanding and was agreeable. Patient believes he may have had 1 episode early on post ablation of A-fib but this was very brief lasting only a few hours. Patient is compliant with his Toprol-XL and Coumadin regimens. CT of chest was performed at [facility] and showed no concerning findings. Surface echo and Holter monitor results currently pending. Agreeable to follow-up in 3 months. Interval History: Rich is a pleasant 67-year-old gentleman who presents today for follow-up regarding history of persistent atrial fibrillation. Overall patient reports feeling excellent. 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 He denies any symptoms of recurrent AF, angina, dizziness, lightheadedness, near-syncope, shortness of breath, worsening activity tolerance, or constitutional symptoms. He reports this is the best he has felt in years. Patient is compliant with his Toprol-XL and Coumadin regimens. He is a [id number] of 3 secondary to age and DVT. He follows with Dr. Hylton for his INR monitoring. Echo from October 2022 showed an ejection fraction of 62%. Left and right atrial cavity mildly dilated. Twelve-lead performed in office today showed sinus bradycardia with ventricular rate of 47. Agreeable to follow-up in 3 months. 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 Mathew on 08/05/2022. THROMBOPHLEBITIS NOS 03/29/2005 right leg Tobacco use disorder 10/14/2006 Traumatic complete tear of right rotator cuff 01/06/2020 Venous (peripheral) insufficiency 04/01/2005 PAST SURGICAL HISTORY Procedure Laterality Date ARTHRP ACETBLR/PROX FEM PROSTC AGRFT/ALGRFT Hip replacement, total, Right COLONOSCOPY FLX DX W/COLLJ SPEC WHEN PFRMD 01/07/2014 Colonoscopy COLONOSCOPY FLX DX W/COLLJ SPEC WHEN PFRMD 05/05/2017 10 year repeat NEUROPLASTY AND/TRANSPOS MEDIAN NRV CARPAL TUNNE Carpal tunnel decomp, Right OPEN REPAIR OF ROTATOR CUFF ACUTE November 2010 Rotator cuff repair, Right Social History Tobacco Use Smoking status: Every Day Packs/day: 1.00 Years: 40.00 Total pack years: 40.00 Types: Cigarettes Smokeless tobacco: Never Substance Use Topics Alcohol use: No Comment: seldom Drug use: No Family History Problem Relation Age of Onset Hypertension Mother aneurysm Diabetes Father Cancer Brother liver COPD Brother other (Pulmonary Embolism) Brother blood clots Arthritis Sister osteoarthritis ALLERGIES Allergen Reactions Seasonal Allergies Other: See Comments MEDICATIONS: metoprolol succinate ER (TOPROL XL) 25 mg 24 hr tabletTake 1 tablet by mouth once daily.Disp: 90 tabletRfl: 3 loratadine (CLARITIN) 10 mg tabletTake 10 mg by mouth once daily.Disp: Rfl: CPAPdaily at bedtime.Disp: Rfl: FAMOTIDINE ORALTake 20 mg by mouth once daily.Disp: Rfl: umeclidinium-vilanterol (ANORO ELLIPTA) 62.5-25 mcg/actuation inhalerInhale 1 Puff as instructed once felix (more content not included)...[facility]07-10-2023 Nurse Note* Vicky Curtis MA - 01/27/2023 8:39 AM EDT No cardiac complaints today. Vicky Curtis MA documented in this encounterHolzer Medical Center [facility] [place]07-10-2023 History of Present illness Narrative* Nikita Ortiz APRN.PERSONAL CAREGIVER - 01/27/2023 8:30 AM EDT [facility] General Cardiology Electrophysiology PRIMARY CARE PHYSICIAN: Marion Feng [address] [facility] [address] [address] [place] [address] CHIEF COMPLAINT: Persistent atrial fibrillation. HISTORY OF PRESENT ILLNESS (copied from my previous office note on 11/05/2022): Rich is a pleasant 66-year-old gentleman who presents today for 3-month follow-up status post radiofrequency PVI with Dr. Mathew on 08/05/2022. Overall patient reports he has been feeling very well lately. 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 Previously when he was experiencing A-fib indicates around noon or 1:00 he would be exhausted. He is now going through his workday without difficulty. Patient states this is the best he is felt in years. Presently denies angina, shortness of breath, worsening activity tolerance, or constitutional symptoms. Patient denies weakness, dizziness, lightheadedness, or syncope. EKG performed in office showed sinus bradycardia with PACs and a ventricular rate of 46. We discussed this patient is taking Toprol-XL 50 mg (2 of the 25 mg tabs) in the mornings. I advisedthe patient that his heart rate is a little low and that we should probably go down to 1 tab once aday. Patient verbalized understanding and was agreeable. Patient believes he may have had 1 episodeearly on post ablation of A-fib but this was very brief lasting only a few hours. Patient is compliant with his Toprol-XL and Coumadin regimens. CT of chest was performed at [facility] and showed no concerning findings. Surface echo and Holter monitor results currently pending. Agreeable to follow-up in 3 months. Interval History: Rich is a pleasant 67-year-old gentleman who presents today for follow-up regarding history of persistent atrial fibrillation. Overall patient reports feeling excellent. 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 He denies any symptoms of recurrent AF, angina, dizziness, lightheadedness, near-syncope, shortness of breath, worsening activity tolerance, or constitutional symptoms. He reports this is the best he has felt in years. Patient is compliant with his Toprol-XL and Coumadin regimens. He is a [id number] of 3 secondary to age and DVT. He follows with Dr. Hylton for his INR monitoring. Echo from October 2022 showed an ejection fraction of 62%. Left and rightatrial cavity mildly dilated. Twelve-lead performed in office today showed sinus bradycardia with ventricular rate of 47. Agreeable to follow-up in 3 months. 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 Chronic thromboembolism of deep veins of lower leg ([facility]) Right 06/01/2019 Coagulopathy ([facility]) 04/01/2005 Protein C Deficiency GENERAL OSTEOARTHROSIS 03/29/2005 Paroxysmal atrial fibrillation ([facility]) PROTEIN DEFIC ANEMIA 03/29/2005 PURE HYPERCHOLESTEROLEM 03/29/2005 Sinus bradycardia 05/19/2017 Status post catheter ablation of atrial fibrillation 08/06/2022 Patient underwent radiofrequency PVI with Dr. Mathew on 08/05/2022. THROMBOPHLEBITIS NOS 03/29/2005 right leg Tobacco use disorder 10/14/2006 Traumatic complete tear of right rotator cuff 01/06/2020 Venous (peripheral) insufficiency 04/01/2005 PAST SURGICAL HISTORY Procedure Laterality Date ARTHRP ACETBLR/PROX FEM PROSTC AGRFT/ALGRFT Hip replacement, total, Right COLONOSCOPY FLX DX W/COLLJ SPEC WHEN PFRMD 01/07/2014 Colonoscopy COLONOSCOPY FLX DX W/COLLJ SPEC WHEN PFRMD 05/05/2017 10 year repeat NEUROPLASTY &/TRANSPOS MEDIAN NRV CARPAL TUNNE Carpal tunnel decomp, Right OPEN REPAIR OF ROTATOR CUFF ACUTE November 2010 Rotator cuff repair, Right Social History Tobacco Use Smoking status: Every Day Packs/day: 1.00 Years: 40.00 Total pack years: 40.00 Types: Cigarettes Smokeless tobacco: Never Substance Use Topics Alcohol use: No Comment: seldom Drug use: No Family History Problem Relation Age of Onset Hypertension Mother aneurysm Diabetes Father Cancer Brother liver COPD Brother other (Pulmonary Embolism) Brother blood clots Arthritis Sister osteoarthritis ALLERGIES Allergen Reactions Seasonal Allergies Other: See Comments MEDICATIONS: metoprolol succinate ER (TOPROL XL) 25 mg 24 hr tablet^Take 1 tablet by mouth once daily.^Disp: 90 tablet^Rfl: 3 loratadine (CLARITIN) 10 mg tablet^Take 10 mg by mouth once daily.^Disp: ^Rfl: CPAP^daily at bedtime.^Disp: ^Rfl: FAMOTIDINE ORAL^Take 20 mg by mouth once daily.^Disp: ^Rfl: umeclidinium-vilanterol (ANORO ELLIPTA) 62.5-25 mcg/actuation inhaler^Inhale 1 Puff as instructed once daily.^Disp: ^Rfl: simvastatin (ZOCOR) 20 mg tablet^Take 1 tablet by mouth daily at bedtime.^Disp: 90 tablet^Rfl: 1 warfarin (COUMADIN) 5 mg tablet^Take 1 tablet by mouth once daily. Take 1.5 tablets (7.5mg) on Wednesdays and 1 tablet (5mg) al other days as directed.^Disp: 100 tablet^Rfl: 1 fluticasone (FLONASE) 50 mcg/actuation nasal spray^Use 1-2 Sprays in each nostril once daily.^Disp:1 Bottle^Rfl: 11 Miscellaneous Medical Supply (COMPRESSION STOCKINGS) [facility]^Use as directed (Pressure 30-40mmHg)to Right Leg Dx 453.9 459.81^Disp: 4 Each^Rfl: 1 GLUCOSAMINE CHONDROITIN MAXSTR 500 MG-400 MG ORAL CAP^Take 2 capsules by mouth once daily.^Disp: ^Rfl: 0 loratadine-pseudoephedrine ER (CLARITIN-D 24 HOUR) 10-240 mg Tb24^Take 1 tablet by mouth once daily.^Disp: 30 tablet^Rfl: 5 (Patient not taking: Reported on 05/15/2022) REVIEW OF SYSTEMS: Review of Systems Constitutional: Negative for chills, fatigue and fever. Respiratory: Negative for apnea, cough, chest tightness, shortness of breath and wheezing. Cardiovascular: Negative for chest pain, palpitations and leg swelling. Gastrointestinal: Negative for abdominal distention, abdominal pain, constipation, diarrhea, nauseaand vomiting. Genitourinary: Negative for difficulty urinating, dysuria and hematuria. Musculoskeletal: Negative for arthralgias. Neurological: Negative for dizziness, weakness, light-headedness and headaches. Psychiatric/Behavioral: Negative for agitation, behavioral problems, confusion and suicidal ideas. PHYSICAL EXAMINATION: BP 116/64 Pulse 55 Wt 201 lb (91.2kg) SpO2 96% Physical Exam Constitutional: Appearance: Normal appearance. Cardiovascular: Rate and Rhythm: Regular rhythm. Bradycardia present. Pulses: Normal pulses. Radial pulses are 2+ on the right side and 2+ on the left side. Posterior tibial pulses are 2+ on the right side and 2+ on the left side. Heart sounds: Normal heart sounds, S1 normal and S2 normal. Comments: Sinus bradycardia with a ventricular rate of 47. Pulmonary: Effort: Pulmonary effort is normal. Breath sounds: Normal breath sounds. Abdominal: General: Bowel sounds are normal. Palpations: Abdomen is soft. Musculoskeletal: Right lower leg: No edema. Left lower leg: No edema. Skin: General: Skin is warm and dry. Neurological: Mental Status: He is alert and oriented to person, place, and time. Psychiatric: Mood and Affect: Mood normal. Behavior: Behavior normal. CARDIOVASCULAR MEDICINE TESTIN-hour Holter monitor 11/05/2022 Primary rhythm was sinus bradycardia with an average heart rate of 58. Minimum heart rate is 42 with a max heart rate of 92. AF burden 0%. PVC burden was 0.65%. VT 1 event lasting 1 minute and 53 seconds. EKG 11/05/2022 Sinus bradycardia with PACs with a ventricular rate of 46. Incomplete RBBB. FL 148. QRS 108. QT/QTc 488/427. Echo 11/05/2022 - Exam indication: Sustained atrial fibrillation - The left ventricle is normal in size. Left ventricular systolic function is normal. EF = 62 5% (2D biplane) Normal left ventricular diastolic function. - The right ventricle is normal in size. Right ventricular systolic function is normal. - The left atrial cavity is mildly dilated. - The right atrial cavity is mildly dilated. - There are no significant valvular abnormalities. - Exam was compared with the prior echocardiographic exam performed on 08/16/2019. There is no significant change. I have reviewed the Holter monitor, EKG, and echocardiogram. PLAN AND RECOMMENDATIONS: ASSESSMENT/PLAN: 1. Persistent atrial fibrillation (HCC) - ICD9: 427.31, ICD10: I48.19 (primary diagnosis) Patient previously underwent radiofrequency PVI with Dr. Mathew on 08/05/2022. Subsequent Holter monitor showed no evidence of AF. Patient did have 1 episode of VT lasting 1 minute and 53 seconds. Patient reports at that time he was wearing the monitor he became lost in traffic and was under a lot of stress. He denied any symptoms at rest. Current treatment regimen includes Toprol-XL 25 mg daily as well as Coumadin 7.5 mg on Wednesdays with 5 mg on all other days. Echo from October 2022 showed ejection fraction of 62%. [id number] of 3 secondary to age and history of DVT. EKG from 3 months post appointment on 11/05/2022 showed sinus bradycardia with PACs at a rate of 46. 2. Status post catheter ablation of atrial fibrillation - ICD9: V45.89, ICD10: Z98.890 As above. 3. Sinus bradycardia - ICD9: 427.89, ICD10: R00.1 As above. 4. Obesity, Class I, BMI 30-34.9 - ICD9: 278.00, ICD10: E66.9 BMI listed at 30.42. 5. At risk for stroke - ICD9: V15.89, ICD10: Z91.89 As above. Return in about 3 months (around 04/29/2023) for Follow up with Dr. Mathew in 3 months. . Nikita Ortiz APRN.BLAYNE documented in this encounterHolzer Medical Center [facility] [place]05-03-2023 Miscellaneous Notes* Telephone Encounter - Georgina Dudley RN - 11/20/2022 11:15 AM EDT Images from the original note were not included. Spoke with patient and notified of Dr. Mathew's message and recommendations. Patient voiced understanding and will keep Dr Mathew updated.. BENIGNO Tang MD You 1 hour ago (9:57 AM) Ok, that would explain it. In that case, and if he is not having any symptoms, we can hold off on doing a stress test. iF he is having exertional symptoms of shortness of breath or chest discomfort then do the stress test otherwise Ok to wait Aylin Mathew MD * Telephone Encounter - Georgina Dudley RN - 11/20/2022 9:31 AM EDT Received a call from patient with a blood pressure update. 11/16/22- 119/66 HR- 73 evenin/63 HR- 61 11/17/22- 103/58 HR- 57 evenin/77 HR- 58 11/18/22- 120/67 HR- 57 evenin/63 HR- 68 11/19/22- 123/62 HR- 56 evenin/60 HR- 66 11/20/22 119/61 HR- 61 Patient wanted you to be aware that he forgot that while he was wearing the monitor he was driving and became lost. His anxiety level was elevated which could have been the cause of the elevated heart rates. Georgina Dudley RN documented in this encounterHolzer Medical Center – [place]05-02-2023 Miscellaneous Notes* Addendum Note - Aylin Mathew MD - 11/19/2022 5:21 PM EDTAddended by: AYLIN MATHEW on: 11/19/2022 05:21 PM Modules accepted: Orders * Telephone Encounter - Nilsa Rose LPN - 11/19/2022 5:07 PM EDT I spoke to and informed him of 's response to monitor results and recommendations.Patient voiced understanding. Patient states he was at work and was probably exerting himself. Patient states he is willing to repeat stress test as recommended. Nilsa Rose LPN * Telephone Encounter - Aylin Mathew MD - 11/19/2022 4:40 PM EDT The monitor showed no episode of Afib He did have one episode lasting 18 minutes of a rapid heart rhythm on 11/05/22 around 12 10 pm. His heart rate was 141 beats a minute. This may be coming from either the upper chamber or the lower chamber of the heart. He may need to repeat a stress test. Last one was in 2019. Please ask if patient recalls any episode on with symptoms and if he is willing to do a stress test Thanks Aylin documented in this encounterHolzer Medical Center – [place]04-20-2023 Miscellaneous Notes* Telephone Encounter - Nilsa Rose LPN - 11/07/2022 1:49 PM EDT I spoke to and informed him of 's response to Echo results. Patient voiced understanding. Nilsa Rose LPN * Telephone Encounter - Nilsa Rose LPN - 11/07/2022 1:48 PM EDT ----- Message from Aylin Mathew MD sent at 11/07/2022 1:34 PM EDT ----- ECHO shows normal Ejection fraction documented in this encounterHolzer Medical Center – [place]04-18-2023 NoteHNO ID: [id number] Author: Nikita Ortiz APRN.PERSONAL CAREGIVER Service: ? Author Type: Nurse Practitioner Type: Progress Notes Filed: 11/05/2022 10:33 AM Note Text: [facility] General Cardiology Electrophysiology PRIMARY CARE PHYSICIAN: Marion Feng [address] [address] CHIEF COMPLAINT: 3 months post radiofrequency PVI with Dr. Mathew on 08/05/2022. HISTORY OF PRESENT ILLNESS (copied from Dr. Mathew's office note on 05/15/2022): Mr. James is a 66 year old male who presents today to discuss options for Atrial fibrillation. He has a history of chronic LE venous thromboembolism and Protein C deficiency and is on coumadin. He says that years ago when he had a hip issue he was detected to have lower extremity blood clot and that led to the diagnosis of routine C deficiency and long-term warfarin use. He has never had any blood clots in his lung. In December 2018 at home he had a initial episode of lightheadedness was done on the sofa got up and the next thing he was on the floor with loss of consciousness and injured his right shoulder. The cause of the loss of consciousness was unclear. He then was evaluated by Dr. Hylton and subsequently detected to have paroxysmal atrial fibrillation. He was started on metoprolol for rate control and not for hypertension. In the last few months his atrial fibrillation has become persistent. He says that he is not aware of palpitations all the time but has noticed more easily getting fatigued when he is on his job and usually gets fatigued by the middle of the day. About 2 months ago he had an elective cardioversion and for 4 to 5 days noticed a significant improvement in his energy level. He went out of atrial fibrillation and his symptom of fatigue returned. No prior heart attack stroke congestive heart failure TIA Interval History: Rich is a pleasant 66-year-old gentleman who presents today for 3-month follow-up status post radiofrequency PVI with Dr. Mathew on 08/05/2022. Overall patient reports he has been feeling very well lately. 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 Previously when he was experiencing A-fib indicates around noon or 1:00 he would be exhausted. He is now going through his workday without difficulty. Patient states this is the best he is felt in years. Presently denies angina, shortness of breath, worsening activity tolerance, or constitutional symptoms. Patient denies weakness, dizziness, lightheadedness, or syncope. EKG performed in office showed sinus bradycardia with PACs and a ventricular rate of 46. We discussed this patient is taking Toprol-XL 50 mg (2 of the 25 mg tabs) in the mornings. I advised the patient that his heart rate is a little low and that we should probably go down to 1 tab once a day. Patient verbalized understanding and was agreeable. Patient believes he may have had 1 episode early on post ablation of A-fib but this was very brief lasting only a few hours. Patient is compliant with his Toprol-XL and Coumadin regimens. CT of chest was performed at [facility] and showed no concerning findings. Surface echo and Holter monitor results currently pending. Agreeable to follow-up in 3 months. 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 Mathew on 08/05/2022. THROMBOPHLEBITIS NOS 03/29/2005 right leg Tobacco use disorder 10/14/2006 Traumatic complete tear of right rotator cuff 01/06/2020 Venous (peripheral) insufficiency 04/01/2005 PAST SURGICAL HISTORY Procedure Laterality Date ARTHRP ACETBLR/PROX FEM PROSTC AGRFT/ALGRFT Hip replacement, total, Right COLONOSCOPY FLX DX W/COLLJ SPEC WHEN PFRMD 01/07/2014 Colonoscopy COLONOSCOPY FLX DX W/COLLJ SPEC WHEN PFRMD 05/05/2017 10 year repeat NEUROPLASTY AND/TRANSPOS MEDIAN NRV CARPAL TUNNE Carpal tunnel decomp, Right OPEN REPAIR OF ROTATOR CUFF ACUTE November 2010 Rotator cuff repair, Right Social History Tobacco Use Smoking status: Every Day Packs/day: 1.00 Years: 40.00 Pack years: 40.00 Types: Cigarettes Smokeless tobacco: Never Substance Use Topics Alcohol use: No Comment: seldom Drug use: No Family History Problem Relation Age of Onset Hypertension Mother aneurysm Diabetes Father Cancer Brother liver COPD Brother other (Pulmonary Embo (more content not included)...[facility] 11-05-2022 NoteHNO ID: [id number] Author: Neelima Lozano Internet Sales Director Service: ? Author Type: Internet Sales Director Type: Progress Notes Filed: 11/05/2022 9:20 AM Note Text: Holter monitor applied. Pt verbalized understanding of monitor use / diary.[facility]04-18-2023 History of Present illness Narrative* Neelima Lozano Exercise Physiologist - 11/05/2022 9:19 AM EDT Holter monitor applied. Pt verbalized understanding of monitor use / diary. documented in [facility]23 NoteHNO ID: [id number] Author: BRYAN Good Service: Care Management Author Type: Hedge Fund Manager Type: Care Mgt Initial Assessment Filed: 08/06/2022 10:12 AM Note Text: CARE MANAGEMENT: ASSESSMENT AND DISCHARGE PLAN SERVICE DATE: August 06, 2022 SERVICE TIME: 10:09 AM PRIMARY CARE PHYSICIAN: Marion Feng MD Primary Contact: Extended Emergency Contact Information Primary Emergency Contact: Candace James Address: [address] [place] [id number] Mobile Relation: Spouse ADMISSION STATUS: Extended Recovery Insurance Provider: MEDICARE A AND B NEEDS PRIOR TO DISCHARGE None POTENTIAL TRANSITION PLANS Home Patient's perception of need for this admission: A- Fib MS/BEHAVIOR Baseline Mental Status Prior to this Illness what was the patient's Baseline Mental Status?: Alert AND Oriented Prior to this illness, has anyone described the patient having any of the following behaviors?: Not Applicable Relationship of the informant to the patient:: Self READMISSION Last Discharge Date: 05/05/17 Is this Within the Past 30 days? NA PATIENT SCREEN No medical discharge barriers identified at this time. No social discharge barriers identified at this time. No behavioral/cognitive discharge barriers identified at this time. No functional discharge barriers identified at this time. FREEDOM OF CHOICE EXPLAINED: NA Are you interested in bedside delivery of your medications? No ASSESSMENT AND PLAN: SW Reviewed chart. Patient was originally diagnosed with atrial fibrillation back in December 2018 MD note reports patient is at Very low risk of stroke, bleeding, or . Patient appears to have no psychosocial issues impacting discharge. Patient appears to have no discharge needs. This patient has been screened for Care Management Transitional Planning Services. At this time, it does not appear this patient will require transition planning services. Should this change, and the patient require transition planning services during this admission, please contact Case Management. SIGNATURE: BRYAN Good PATIENT NAME: Rihc James DATE: August 06, 2022 TIME: 10:09 AM CONTACT #: [id number] NoteHNO ID: [id number] Author: Amilcar York APRN.CRNA Service: Anesthesiology Author Type: Nurse Public Accountant Type: Anesthesia Procedure Notes Filed: 08/05/2022 9:36 AM Note Text: ANESTHESIOLOGY PROCEDURE NOTE Airway General Information Procedure Start Time/Medication Administration: 08/05/2022 9:18 AM Patient location during procedure: OR Patient identity confirmed: arm band Staffing DREDGE LEVER OPERATOR: Amilcar York APRN.DREDGE LEVER OPERATOR Performed by: DREDGE LEVER OPERATOR Indications and Patient Condition Indications for airway management: anesthesia Preoxygenated: yes anesthesia circuit Patient position: sniffing Final Airway Details Final airway type: endotracheal airway Final Endotracheal Airway: ETT Cuffed: yes Successful intubation technique: video laryngoscopy Devices used: [place] Endotracheal tube insertion site: oral Blade: Facundo Blade size: #4 ETT size (mm): 8.0 Measured from: lips Measurement (cm): 22 Placement verified by: chest auscultation Cormack-Lehane Classification: grade I - full view of glottis Number of attempts at approach: 1 SIGNATURE: Madi York APRN.DREDGE LEVER OPERATOR PATIENT NAME: Rich James DATE: August 05, 2022 TIME: 9:35 AM CSN: [id number]2022 Miscellaneous Notes* Telephone Encounter - Carmen Rust RN - 07/08/2022 2:53 PM EST Pt's name has been added to [facility] procedure board. Carmen Rust RN * Telephone Encounter - Kianna Craig RN - 07/08/2022 2:31 PM EST Patient is scheduled for EPS w/PVI ablation on 07/18/[address] Mathew. The hospital will call theday before between 2-5pm with your arrival time. Patient should not eat or drink after midnight theday before the procedure. Patient will need a class c driver when released from the hospital. You will stayovernight for observation. Patient should continue to take medications as prescribed the morning ofthe procedure with just a sip of water unless otherwise instructed. Pt verbalized understanding of the above instructions Pt is getting weekly INR's will continue to monitor. Kianna Craig RN documented in this encounterHol[facility]12-01-2022 Miscellaneous Notes* Telephone Encounter - Aylin Mathew MD - 06/20/2022 4:28 PM EST Patient underwent Cardioversion 06/04/[address] Hylton and initially felt well. Then went back into AF verified on a repeat ECG 5 days later. Discussed with patient and he would like to proceed with an ablation procedure. We discussed the procedure risks benefits efficacy need for GA and overnight stay. Patient to be scheduled for H and P update and PVAI with RFA. He is on coumadin and should continue coumadin Needs to get 3 weekly INRs to confirm that he is well anticoagulated. Aylin Mathew MD documented in this encounterHolzer [facility]10-26-2022 NoteHNO ID: [id number] Author: Aylin Mathew MD Service: ? Author Type: Physician Type: Progress Notes Filed: 05/15/2022 3:25 PM Note Text: Heart and Vascular [facility] SECTION OF CARDIAC PACING and ELECTROPHYSIOLOGY OUTPATIENT VISIT DATE May 15, 2022 OUTPATIENT VISIT TYPE CONSULTATION PRIMARY CARE PHYSICIAN: Magen Ayon [address] [place] [address] REFERRING PHYSICIAN: No referring provider defined for this encounter. CHIEF COMPLAINT: Patient presents with: CARD New Patient Consult: MANAGER OF HOSPITAL REF FOR A-FIB HISTORY OF PRESENT ILLNESS: Mr. James is a 66 year old male who presents today to discuss options for Atrial fibrillation. He has a history of chronic LE venous thromboembolism and Protein C deficiency and is on coumadin. He says that years ago when he had a hip issue he was detected to have lower extremity blood clot and that led to the diagnosis of routine C deficiency and long-term warfarin use. He has never had any blood clots in his lung. In December 2018 at home he had a initial episode of lightheadedness was done on the sofa got up and the next thing he was on the floor with loss of consciousness and injured his right shoulder. The cause of the loss of consciousness was unclear. He then was evaluated by Dr. Hylton and subsequently detected to have paroxysmal atrial fibrillation. He was started on metoprolol for rate control and not for hypertension. In the last few months his atrial fibrillation has become persistent. He says that he is not aware of palpitations all the time but has noticed more easily getting fatigued when he is on his job and usually gets fatigued by the middle of the day. About 2 months ago he had an elective cardioversion and for 4 to 5 days noticed a significant improvement in his energy level. He went out of atrial fibrillation and his symptom of fatigue returned. 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 ETOH - No Family History - Youngest of 6 siblings. No premature CAD. Brother has Blood clots and AF, Sister has COPD. These are his two oldest siblings. Others are . Parents had stroke. Mother had aneurysm. A brother had an aneurysm. Ambulatory monitor 24Hours- Avg HR 94 in Af 51 - 148 Longest RR 1.8s. One 7 beat run of NSVT. ECG 04/11/22 - AF 79bpm QRS 120 QT 394 Qtc 427 ECHO report 03/13/20 -- nl LV size and SF EF 55% Nl RV size and systolic fn. Mild LAE Moderate YARED Mild TR PASP 28 nl MV. AoV is not well visualized. Report of Pharmacological Stress test 03/13/2020 - Gated SPECT EF 41%. Conclusion AF, Myocardial perfusion scan with no evidence of ischemia. Preserved Ejection fraction. 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 06/01/2019 Coagulopathy (HCC) 04/01/2005 Protein C Deficiency GENERAL OSTEOARTHROSIS 03/29/2005 Paroxysmal atrial fibrillation (HCC) PROTEIN DEFIC ANEMIA 03/29/2005 PURE HYPERCHOLESTEROLEM 03/29/2005 Sinus bradycardia 05/19/2017 THROMBOPHLEBITIS NOS 03/29/2005 right leg Tobacco use disorder 10/14/2006 Traumatic complete tear of right rotator cuff 01/06/2020 Venous (peripheral) insufficiency 04/01/2005 PAST SURGICAL HISTORY Procedure Laterality Date ARTHRP ACETBLR/PROX FEM PROSTC AGRFT/ALGRFT Hip replacement, total, Right COLONOSCOPY FLX DX W/COLLJ SPEC WHEN PFRMD 01/07/2014 Colonoscopy COLONOSCOPY FLX DX W/COLLJ SPEC WHEN PFRMD 05/05/2017 10 year repeat NEUROPLASTY AND/TRANSPOS MEDIAN NRV CARPAL TUNNE Carpal tunnel decomp, Right OPEN REPAIR OF ROTATOR CUFF ACUTE November 2010 Rotator cuff repair, Right FAMILY HISTORY Problem Relation Age of Onset Hypertension Mother aneurysm Diabetes Father Cancer Brother liver COPD Brother other (Pulmonary Embolism) Brother blood clots Arthritis Sister osteoarthritis Social History Tobacco Use Smoking status: Every Day Packs/day: 1.00 Years: 40.00 Pack years: 40.00 Types: Cigarettes Smokeless tobacco: Never Substance Use Topics Alcohol use: No Comment: seldom Drug use: No ALLERGIES Allergen Reactions Seasonal Allergies Other: See Comments MEDICATIONS: fluticasone (FLONASE) 50 mcg/actuation nasal spray DAILY loratadine (CLARITIN) 10 mg tablet Take 10 mg by mouth once daily. CPAP FAMOTIDINE ORAL Take 20 mg by mouth once daily. umeclidinium-vilanterol (ANORO ELLIPTA) 62.5-25 mcg/actuation inhaler Inhale 1 Puff as instructed once daily. simvastatin (ZOCOR) 20 mg tablet Take 1 tablet by florin (more content not included)...[facility] Instructions* Patient Instructions* Aylin Mathew MD - 05/15/2022 3:22 PM EDT We discussed that the lung disease if present can cause recurrence of episodes of atrial fibrillation after attempts to restore normal rhythm. We discussed that we would use a combination of cardioversion medications that alter the electrical properties called antiarrhythmic drugs and ablation as strategies for trying to restore rhythm. The main goal for restoring rhythm was to improve quality oflife and symptoms and not for life span. We discussed that quitting smoking probably has significant health benefits and also potentially improve his longevity After discussing the pros and cons the plan is to start flecainide 100 mg twice a day and schedule elective cardioversion in 10 days to 2 weeks. This could be done at [place] with Dr. Hylton. If this results in normal rhythm and if that Improves quality of life continue with Antiarrhythmic medication. Also discussed about the potential side effects of adding flecainide such as slow heart rates GI disturbances and the potential to cause different types of dangerous electrical disturbances from the main pumping chambers called ventricular arrhythmias. If any side effects occur would have to try different antiarrhythmic medication. We also discussed about ablation option for atrial fibrillation. We discussed that the ablation wasa procedure done under general anesthesia includes risks of bleeding stroke cardiac perforation esophageal damage vascular injury. We discussed about the efficacy of ablation as 60 to 70% of people with freedom from atrial fibrillation for 1 to 3 years. Follow-up in 3 to 4 months. Atrial Fibrillation What is atrial fibrillation? Atrial fibrillation (also called A-fib) is a fast or irregular heartbeat that starts in the upper chambers of the heart. The abnormal heartbeat affects the ability of the heart to pump blood to the rest of the body. What is the cause? An electrical signal in your heart starts each heartbeat, causing the heart muscle to squeeze (contract). Normally, this signal starts in the upper right chamber of the heart (the right atrium) at a place called the sinus node. The signal then follows normal pathways to the upper left atrium and tothe lower chambers of the heart (the ventricles). When you have atrial fibrillation, electrical signals don t start in the normal place in the right atrium and don t travel normally. This can cause the upper chambers of the heart (atria) to beat very fast and not in a normal pattern. Common causes of heart rhythm problems are conditions that damage the heart, like coronary artery disease, heart attack, or heart failure. Problems with the heart valves are another common cause. The heart has 4 valves that open and closewith each heartbeat to help blood flow in the right direction through the heart. Other causes of atrial fibrillation include: Health problems, such as a stroke, lung disease, diabetes, overactive thyroid gland, or high blood pressure Abuse of alcohol or drugs, such as cocaine Sometimes no cause can be found. What are the symptoms? Some people don t have any symptoms. When atrial fibrillation does cause symptoms, the most common ones are: Feeling like your heart is beating too fast or too hard or skipping beats or fluttering Feeling tired or weak all the time Symptoms that are more serious include: Chest pain Trouble breathing Lightheadedness or dizziness Confusion How is it diagnosed? Your healthcare provider will ask about your symptoms and medical history and examine you. Tests may include: An ECG (also called an EKG), which measures and records your heartbeat. You may have an ECG while you are resting or while you exercise on a treadmill. You may also be asked to wear a small portable ECG monitor for a few days or sometimes a couple weeks. Blood tests An echocardiogram, which uses sound waves (ultrasound) to show the structures of the heart, like the valves How is it treated? The goal of treatment is to help the heart keep a normal rhythm. Your treatment depends on the cause of the atrial fibrillation, how often you have symptoms, and the severity of your symptoms. If you have no symptoms, or your symptoms are fairly mild, you may not need treatment. For some people atrial fibrillation lasts just a short time and the heart goes back to a normal rhythm on its own. If you keep having spells of atrial fibrillation, treatment may help keep you from having so manyspells. If a health problem like a leaky heart valve is causing the atrial fibrillation, treating the health problem may also treat the fast or irregular heartbeat. Other possible treatments are: Medicine: Your provider may prescribe medicine to slow or restore a normal heart rate and rhythm. You may also need medicine to prevent blood clots because when the heart beats irregularly, some of the blood can stay in the upper chambers too long. This makes it easier for blood clots to form, increasing your risk of having a stroke or heart attack. Electrical cardioversion: First, you will be given medicine called anesthesia to keep you from feeling pain during the procedure. Then your chest will be given an electrical shock. The electrical shock should make your heart start beating normally again. You may need medicine to keep your heart rhythm normal after this procedure. Ablation: Ablation is a procedure that uses a small tube called a catheter to deliver energy to theinside of the heart. The energy (usually radio waves) scars small areas of heart tissue. The scars block abnormal electrical pathways and help you have a normal heart rhythm. With some types of ablation treatment, you will also need a pacemaker. A pacemaker is an electronic device put under the skin of your chest to help control the heartbeat. How can I take care of myself? Take your medicines as prescribed. Keep your appointments for follow-up blood tests. Make sure your healthcare provider knows about changes in your diet or medical condition. Your provider also needs to know about all prescription and nonprescription medicines, herbs, or supplements that you are taking. Some medicines may interact with your heart medicine or increase your risk for atrial fibrillation. If you want to drink alcohol, ask your provider how much is safe for you to drink. Follow your healthcare provider's instructions. Ask your provider: ?How and when you will hear your test results ?How long it will take to recover ?What activities you should avoid and when you can return to your normal activities ?How to take care of yourself at home ?What symptoms or problems you should watch for and what to do if you have them Make sure you know when you should come back for a checkup. How can I help prevent atrial fibrillation? The best prevention is to have a heart-healthy lifestyle. Keep a healthy weight. Eat a healthy diet that is low in sodium and saturated and trans fat. Stay fit with the right kind of exercise for you. Decrease stress. Don t smoke. Limit your use of alcohol. If you have heart disease or high blood pressure, follow your healthcare provider's instructions for treatment. Developed by [employer]. Published by [employer]. Copyright 2014 [employer] and/or one of its subsidiaries. All rights reserved. documented in this encounterHolzer [facility]10-26-2022 History of Present illness Narrative* Aylin Mathew MD - 05/15/2022 2:37 PM EDT Images from the original note were not included. Heart and Vascular [facility] SECTION OF CARDIAC PACING and ELECTROPHYSIOLOGY OUTPATIENT VISIT DATE May 15, 2022 OUTPATIENT VISIT TYPE CONSULTATION PRIMARY CARE PHYSICIAN: Magen Ayon [address] [place] [address] REFERRING PHYSICIAN: No referring provider defined for this encounter. CHIEF COMPLAINT: Patient presents with: CARD New Patient Consult: MANAGER OF HOSPITAL REF FOR A-FIB HISTORY OF PRESENT ILLNESS: Mr. James is a 66 year old male who presents today to discuss options for Atrial fibrillation. He has a history of chronic LE venous thromboembolism and Protein C deficiency and is on coumadin. He says that years ago when he had a hip issue he was detected to have lower extremity blood clot and that led to the diagnosis of routine C deficiency and long-term warfarin use. He has never had any blood clots in his lung. In December 2018 at home he had a initial episode of lightheadedness was done on the sofa got up and the next thing he was on the floor with loss of consciousness and injured his right shoulder. The cause of the loss of consciousness was unclear. He then was evaluated by Dr. Hylton and subsequently detected to have paroxysmal atrial fibrillation. He was started on metoprolol for rate control and not for hypertension. In the last few months his atrial fibrillation has become persistent. He says that he is not aware of palpitations all the time but has noticed more easily getting fatigued when he is on his job and usually gets fatigued by the middle of the day. About 2 months ago he had an elective cardioversion and for 4 to 5 days noticed a significant improvement in his energy level. He went out of atrial fibrillation and his symptom of fatigue returned. 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 ETOH - No Family History - Youngest of 6 siblings. No premature CAD. Brother has Blood clots and AF, Sister has COPD. These are his two oldest siblings. Others are . Parents had stroke. Mother had aneurysm. A brother had an aneurysm. Ambulatory monitor 24Hours- Avg HR 94 in Af 51 - 148 Longest RR 1.8s. One 7 beat run of NSVT. ECG 04/11/22 - AF 79bpm QRS 120 QT 394 Qtc 427 ECHO report 03/13/20 -- nl LV size and SF EF 55% Nl RV size and systolic fn. Mild LAE Moderate YARED Mild TR PASP 28 nl MV. AoV is not well visualized. Report of Pharmacological Stress test 03/13/2020 - Gated SPECT EF 41%. Conclusion AF, Myocardial perfusion scan with no evidence of ischemia. Preserved Ejection fraction. 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 06/01/2019 Coagulopathy (HCC) 04/01/2005 Protein C Deficiency GENERAL OSTEOARTHROSIS 03/29/2005 Paroxysmal atrial fibrillation (HCC) PROTEIN DEFIC ANEMIA 03/29/2005 PURE HYPERCHOLESTEROLEM 03/29/2005 Sinus bradycardia 05/19/2017 THROMBOPHLEBITIS NOS 03/29/2005 right leg Tobacco use disorder 10/14/2006 Traumatic complete tear of right rotator cuff 01/06/2020 Venous (peripheral) insufficiency 04/01/2005 PAST SURGICAL HISTORY Procedure Laterality Date ARTHRP ACETBLR/PROX FEM PROSTC AGRFT/ALGRFT Hip replacement, total, Right COLONOSCOPY FLX DX W/COLLJ SPEC WHEN PFRMD 01/07/2014 Colonoscopy COLONOSCOPY FLX DX W/COLLJ SPEC WHEN PFRMD 05/05/2017 10 year repeat NEUROPLASTY &/TRANSPOS MEDIAN NRV CARPAL TUNNE Carpal tunnel decomp, Right OPEN REPAIR OF ROTATOR CUFF ACUTE November 2010 Rotator cuff repair, Right FAMILY HISTORY Problem Relation Age of Onset Hypertension Mother aneurysm Diabetes Father Cancer Brother liver COPD Brother other (Pulmonary Embolism) Brother blood clots Arthritis Sister osteoarthritis Social History Tobacco Use Smoking status: Every Day Packs/day: 1.00 Years: 40.00 Pack years: 40.00 Types: Cigarettes Smokeless tobacco: Never Substance Use Topics Alcohol use: No Comment: seldom Drug use: No ALLERGIES Allergen Reactions Seasonal Allergies Other: See Comments MEDICATIONS: fluticasone (FLONASE) 50 mcg/actuation nasal spray DAILY loratadine (CLARITIN) 10 mg tablet Take 10 mg by mouth once daily. CPAP FAMOTIDINE ORAL Take 20 mg by mouth once daily. umeclidinium-vilanterol (ANORO ELLIPTA) 62.5-25 mcg/actuation inhaler Inhale 1 Puff as instructed once daily. simvastatin (ZOCOR) 20 mg tablet Take 1 tablet by mouth daily at bedtime. metoprolol succinate ER (TOPROL XL) 25 mg 24 hr tablet Take 2 tablets by mouth once daily. Per Dr. Hylton. warfarin (COUMADIN) 5 mg tablet Take 1 tablet by mouth once daily. Take 1.5 tablets (7.5mg) on Wednesdays and 1 tablet (5mg) al other days as directed. fluticasone (FLONASE) 50 mcg/actuation nasal spray Use 1-2 Sprays in each nostril once daily. Miscellaneous Medical Supply (COMPRESSION STOCKINGS) Misc Misc Use as directed (Pressure 30-40mmHg)to Right Leg Dx 453.9 459.81 GLUCOSAMINE CHONDROITIN MAXSTR 500 MG-400 MG ORAL CAP loratadine-pseudoephedrine ER (CLARITIN-D 24 HOUR) 10-240 mg Tb24 Take 1 tablet by mouth once daily. (Patient not taking: Reported on 05/15/2022) REVIEW OF SYSTEMS: Appetite is normal. No fever chills. He has COPD and sees a lung doctor. He has stomach issues and in the past was thought to have had a hiatal hernia. No new neurologic symptoms PHYSICAL EXAMINATION: BP 108/64 Pulse 60 Resp 18 Ht 5' 10 (1.78m) Wt 210 lb (95.3kg) SpO2 96[room air]% BMI 30.13 kg/(m^2). Physical Exam Normal build well-nourished comfortable at rest mean JVP is difficult to assess carotid upstroke isnormal Chest symmetrical no wheeze or crackles increased PA diameter consistent with emphysema Cardiac exam irregular rhythm soft S1-S2 no audible murmur Extremities right leg has always been larger than the left and he wears a compression sock on the right side left leg without edema Neurologically alert oriented x3 speech is normal Pertinent Labs: CBC: Hemoglobin (g/dL) Date Value 11/05/2019 17.0 Hematocrit (%) Date Value 11/05/2019 53.2 WBC (k/uL) Date Value 11/05/2019 6.60 Platelet Count (k/uL) Date Value 11/05/2019 250 BMP: Glucose (mg/dL) Date Value 11/26/2019 94 Potassium (mmol/L) Date Value 11/26/2019 4.5 Sodium (mmol/L) Date Value 11/26/2019 140 Chloride (mmol/L) Date Value 11/26/2019 103 CO2 (mmol/L) Date Value 11/26/2019 28 Creatinine (mg/dL) Date Value 11/26/2019 1.18 BUN (mg/dL) Date Value 11/26/2019 18 Anion Gap (mmol/L) Date Value 11/26/2019 9 Calcium (mg/dL) Date Value 11/26/2019 9.1 CARDIOVASCULAR MEDICINE TESTING: Electrocardiogram: 05/15/2022 atrial fibrillation 74 bpm QRS 122 ms QT 412 QTC 457 QRS morphology consistent with right bundle branch block left anterior fascicular block IMPRESSION:PLAN AND RECOMMENDATIONS: Mr. James is a 66 year old male * . Persistent atrial fibrillation this could be responsible for some of his symptoms of fatigue and exertional shortness of breath. Some of these may also be related to his lung changes related to smoking. He is adequately rate controlled on his current dose of metoprolol and is on oral anticoagulation with Coumadin for stroke prevention. We discussed that the lung disease if present can cause recurrence of episodes of atrial fibrillation after attempts to restore normal rhythm. We discussed that we would use a combination of cardioversion medications that alter the electrical properties called antiarrhythmic drugs and ablation as strategies for trying to restore rhythm. The main goal for restoring rhythm was to improve quality oflife and symptoms and not for life span. We discussed that quitting smoking probably has significant health benefits and also potentially improve his longevity After discussing the pros and cons the plan is to start flecainide 100 mg twice a day and schedule elective cardioversion in 10 days to 2 weeks. This could be done at [facility] with Dr. Hylton. If this results in normal rhythm and if that Improves quality of life continue with Antiarrhythmic medication. Also discussed about the potential side effects of adding flecainide such as slow heart rates GI disturbances and the potential to cause different types of dangerous electrical disturbances from the main pumping chambers called ventricular arrhythmias. If any side effects occur would have to try different antiarrhythmic medication. We also discussed about ablation option for atrial fibrillation. We discussed that the ablation wasa procedure done under general anesthesia includes risks of bleeding stroke cardiac perforation esophageal damage vascular injury. We discussed about the efficacy of ablation as 60 to 70% of people with freedom from atrial fibrillation for 1 to 3 years. Follow-up in 3 to 4 months. Aylin Mathew MD [facility]* Keesha Vargas MA - 05/15/2022 2:30 PM EDT Patient denies any cardiac issues or symptoms. 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 Dave Nair ( [facility]) 07.09.2011 ( ball and socket, socket repair) Embolism and thrombosis 09/30/2005 02/18/20 20 Overview: Right leg documented as of this encounter (statuses as of 07/08/2022) [facility] of Past illness Narrative* Problem Noted Date Resolved Date Avascular necrosis of dorinaate 06/01/2013 Overview: Right wrist. History of total hip replacement 07/23/2011 05/08/2012 Overview: Done by Dr. 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 Dave Nair ( [facility]) 07.09.2011 ( ball and socket, socket repair) Embolism and thrombosis 09/30/2005 02/18/20 20 Overview: Right leg documented as of this encounter (statuses as of 11/20/2022) [facility] of Past illness Narrative* Problem Noted Date Diagnosed Date Resolved Date Avascular necrosis of lunate 06/01/2013 11/10/2013 Overview: Right wrist. History of total hip replacement 07/23/2011 05/08/2012 Overview: Done by Dr. Dave Nair ( [facility]) 07.09.2011 ( ball and socket, socket repair) Embolism and thrombosis 09/30/200501/20 Overview: Right leg documented as of this encounter (statuses as of 01/27/2023) [facility] of Past illness Narrative* Problem Noted Date Diagnosed Date Resolved Date Avascular necrosis of lunate 06/01/2013 11/10/2013 Overview: Right wrist. History of total hip replacement 07/23/2011 05/08/2012 Overview: Done by Dr. Dave Nair ( [facility]) 07.09.2011 ( ball and socket, socket repair) Embolism and thrombosis 09/30/200501/20 Overview: Right leg documented as of this encounter (statuses as of 05/05/2023) [facility] of Past illness Narrative* Problem Noted Date Diagnosed Date Resolved Date Avascular necrosis of lunate 06/01/2013 11/10/2013 Overview: Right wrist. History of total hip replacement 07/23/2011 05/08/2012 Overview: Done by Dr. Dave Nair ( [facility]) 07.09.2011 ( ball and socket, socket repair) Embolism and thrombosis 09/30/200501/20 Overview: Right leg documented as of this encounter (statuses as of 11/06/2023) [facility] Diagnosis Onset Date Resolution Status 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 chronic Paroxysmal atrial fibrillation chronic Lung nodule acute Stage 1 mild COPD by GOLD classification acute [facility] Work Phone: Evaluation note* Diagnosis Onset Date Resolution Status 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 chronic Paroxysmal atrial fibrillation chronic Lung nodule acute Stage 1 mild COPD by GOLD classification acute Atrial fibrillation, permanent acute Stage 1 mild COPD by GOLD classification acute Vitamin D deficiency acute 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, chronic 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 chronic Paroxysmal atrial fibrillation chronic Protein C deficiency chronic Smoking greater than 40 pack years chronic [facility] Work Phone: Evaluation note* Diagnosis Onset Date Resolution Status Stage 1 mild COPD by GOLD classification acute Lung nodule resolved Atrial fibrillation, permanent acute Stage 1 mild COPD by GOLD classification acute Vitamin D deficiency acute 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, chronic 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 chronic Paroxysmal atrial fibrillation chronic Protein C deficiency chronic Smoking greater than 40 pack years chronic Stage 1 mild COPD by GOLD classification acute Lung nodule resolved [facility] Work Phone: Evaluation note* Diagnosis Onset Date Resolution Status Stage 1 mild COPD by GOLD classification acute Lung nodule resolved 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 chronic Paroxysmal atrial fibrillation chronic 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 chronic Paroxysmal atrial fibrillation chronic Atrial fibrillation, permanent acute [facility] Work Phone: Evaluation note* Diagnosis Persistent atrial fibrillation (HCC)- Primary Atrial fibrillation documented in this encounter [facility] note* Diagnosis Onset Date Resolution Status 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 chronic Paroxysmal atrial fibrillation chronic 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 chronic Paroxysmal atrial fibrillation chronic Atrial fibrillation, permanent acute [facility] Work Phone: Evaluation note* Diagnosis Onset Date Resolution Status 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 chronic Paroxysmal atrial fibrillation chronic 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 chronic Paroxysmal atrial fibrillation chronic Atrial fibrillation, permanent acute Atrial fibrillation, permanent acute Paroxysmal atrial fibrillation chronic [facility] Work Phone: Evaluation note* Diagnosis Persistent atrial fibrillation (HCC)- Primary Atrial fibrillation documented in this encounter [facility] note* Diagnosis Onset Date Resolution Status Atrial fibrillation, permanent acute Paroxysmal atrial fibrillation chronic Acute URI acute Atrial fibrillation, permanent acute Stage 1 mild COPD by GOLD classification acute Vitamin D deficiency acute 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, chronic 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 chronic MCC current use of anticoagulant chronic Protein C deficiency chronic Smoking greater than 40 pack years chronic 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 chronic Paroxysmal atrial fibrillation chronic Stage 1 mild COPD by GOLD classification acute Paroxysmal atrial fibrillation chronic Lung nodule resolved [facility] Work Phone: Evaluation note* Diagnosis Onset Date Resolution Status 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 chronic Paroxysmal atrial fibrillation chronic Stage 1 mild COPD by GOLD classification acute Paroxysmal atrial fibrillation chronic Lung nodule resolved 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 chronic MCC current use of anticoagulant chronic Paroxysmal atrial fibrillation [facility] Work Phone: Evaluation note* Diagnosis Dyspnea, unspecified type- Primary Regular wide QRS complex tachycardia [facility] Diagnosis Onset Date Resolution Status 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 chronic MCC current use of anticoagulant chronic Paroxysmal atrial fibrillation chronic Skin lesion acute Stage 1 mild COPD by GOLD classification acute Vitamin D deficiency acute 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 chronic MCC current use of anticoagulant chronic [facility] Work Phone: Evaluation note* Diagnosis Onset Date Resolution Status 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 chronic MCC current use of anticoagulant chronic Paroxysmal atrial fibrillation chronic Skin lesion acute Stage 1 mild COPD by GOLD classification acute Vitamin D deficiency acute 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 chronic MCC current use of anticoagulant chronic Stage 1 mild COPD by GOLD classification acute Paroxysmal atrial fibrillation chronic [facility] Work Phone: Evaluation note* Diagnosis Persistent atrial fibrillation (HCC)- Primary Atrial fibrillation Status post catheter ablation of atrial fibrillation Sinus bradycardia Other specified cardiac dysrhythmias Obesity, Class I, BMI 30-34.9 Obesity, unspecified At risk for stroke Other specified personal history presenting hazards to health [facility]* Diagnosis Onset Date Resolution Status Stage 1 mild COPD by GOLD classification acute Paroxysmal atrial fibrillation chronic 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 chronic MCC current use of anticoagulant chronic Paroxysmal atrial fibrillation chronic [facility] Work Phone: evaluation note* Diagnosis Persistent atrial fibrillation (HCC)- Primary Atrial fibrillation documented in this encounter [facility] note* Diagnosis Onset Date Resolution Status S/P ablation of atrial fibrillation acute Skin lesion acute Smoking greater than 20 pack years acute Stage 1 mild COPD by GOLD classification acute Vitamin D deficiency acute 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 chronic Protein C deficiency chronic Smoking greater than 40 pack years chronic [facility] Work Phone: evaluation noteNo assessment information available [facility] Work Phone: evaluation note* Diagnosis Persistent atrial fibrillation (HCC) Atrial fibrillation documented in this encounter [facility] note* Diagnosis Onset Date Resolution Status Admit Date Right upper lobe pulmonary nodule ac aaron December 02, 2024 7:47am FIFI (obstructive sleep apnea) chroni c December 02, 2024 7:47am Smoking greater than 40 pack years chronic December 02, 2024 7 :47am Stage 1 mild COPD by GOLD classification chronic December 02, 2024 7 :47am [facility] Work Phone: [email or web address] note* Diagnosis Right upper lobe pulmonary nodule- Primary Chronic obstructive pulmonary disease, unspecified COPD type (HCC) Paroxysmal atrial fibrillation (HCC) Atrial fibrillation 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) Warfarin anticoagulation Former smoker Personal history of tobacco use, presenting hazards to health Solitary pulmonary nodule [facility] Lung nodule- Primary Other diseases of lung, not elsewhere classified Solitary pulmonary nodule [facility] Diagnosis Lung nodule- Primary Other diseases of lung, not elsewhere classified Lung nodule Other diseases of lung, not elsewhere classified Solitary pulmonary nodule S/P thoracotomy Other postprocedural status [facility] Lung nodule- Primary Other diseases of lung, not elsewhere classified [facility]* Cardiovascular/Thoracic Surgery Location: None Selected [facility] Work Phone: Reason for referral (narrative)* Diagnostic Procedure Only (Routine) - Pending Review Specialty Diagnoses / Procedures Referred By Hay schwab Referred To Contact MOLECULAR & FUNCTIONAL IMAGING Diagnoses Dyspnea, unspecified type Regular wide QRS complex tachycardia Procedures NM CARDIAC PERF STRESS/EXERCISE MYOCARDIAL SPECT MULTIPLE STUDIES Aylin Mathew MD [address] [place] [address] Molecular & Functional Imaging [address] [place] [address] Referral ID Status Reason Start Date Expiration Date Visits Requested Visits Authorized [id number] Pending Review Auto-Generat ed Referral 12/03/2022 2023 1 1 [facility] for referral (narrative)No reason for referral information availableWOhio [facility] Work Phone: Reason for visit Narrative* Auth/Cert (Routine) Specialty Diagnoses / Procedures Referred By Hay schwab Referred To Contact Diagnoses Solitary pulmonary nodule Procedures FL THORACOSCOPY W/LOBECTOMY SINGLE LOBE ROBOTIC RIGHT UPPER LOBECTOMY Sarah Luna DO [address] [place] [address] Phone: tel: fax: Referral ID Status Reason Start Date Expiration Date Visits Re quested Visits Authorized [id number] 12/23/2024 1 1 [facility] Chief Complaint Chief Complaint Description Start Date right shoulder post right sh oulder arthroscopy; right shoulder extensive joint debridement including biceps interval proximal biceps tenotomy debridement of anterior and posterior labral tearing removal of prior orthopaedic hardware; arthroscopic revision rotator cuff repair with augmentation on 04/19/2020 Preliminary chief co mplaint data, not yet signed by the author as of Instructions Instruction Description Start Date CompletedPatient advised to follow-up with Primary Care Physician for BMI management. Advance Directives Advance Directive Response Recorded Date/ Time Living Will No April 25 3:40pm Power of Private Detective No April 25 3:40pm Advance Directive Response Recorded Date/ Time Advance Directives No March 11:13am Living Will No April 04, 2022 11:13am Power of Private Detective No March 11:13am Advance Directive Response Recorded Date/ Time Advance Directives on File No 2021 10:58am Advance Directives No May 10:58am Living Will No June 04 10:58am Power of Private Detective No June 04, 2022 10:58am Advance Directive Response Recorded Date/ Time Advance Directives No May 11:58am Living Will No June 04 11:58am Power of Private Detective No June 04, 2022 11:58am Advance Directive Response Recorded Date/ Time Advance Directives No May 10:58am Living Will No June 04 10:58am Power of Private Detective No June 04, 2022 10:58am Advance Directive Response Recorded Date/ Time Living Will No June 04 11:58am Do you have a Healthcare Power of Private Detective? No June 04, 2022 11:58am Living Will No July 21 5:18am Do you have a Healthcare Power of Private Detective? No July 21, 2024 5:18am Living Will No September 18, 2024 4:58am Do you have a Healthcare Power of Private Detective? No September 18, 2024 4:58am Advance Directives No May 11:58am Documents on File Type Date Recorded Patient [employer] Expl anation Power of Private Detective 01/10/2025 6:28 AM Advance Directives and Livin g Will 01/10/2025 6:27 AM Date Activated Date Inactivated Comments 01/10/2025 6:15 AM 01/14/2025 3:24 PM Advance Directive Response Recorded Date/ Time Living Will No June 04 11:58am Do you have a Healthcare Power of Private Detective? No June 04, 2022 11:58am Living Will No September 18, 2024 4:58am Do you have a Healthcare Power of Private Detective? No September 18, 2024 4:58am Advance Directives No May 11:58am Documents on File Type Date Recorded Patient [employer] Expl anation Power of Private Detective 01/10/2025 6:28 AM Advance Directives and Luke franco Will 01/10/2025 6:27 AM Date Activated Date Inactivated Comments 01/10/2025 6:15 AM 01/14/2025 3:24 PM Assessments There may be information available, but it has not been provided by the sender. Review of System There may be information available, but it has not been provided by the sender. Family History Relationship Condition Age at Onset Recorded Date/T dheeraj father Diabetes mellitus Unknown History of Present Illness There may be information available, but it has not been provided by the sender. Chief Complaint and Reason for Visit Chief Complaint S/O INR - ADDITIONAL EORDER FROM DR SWANSON 06/30/20 6 M FU TOBACCO DEPENDENCE REVIEW RESULTS PAROXYSMAL S/O INR Reason for Visit 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 Paroxysmal atrial fibrillation Lung nodule Stage 1 mild COPD by GOLD classification Chief Complaint S/O INR - ADDITIONAL EORDER FROM DR SWANSON 06/30/20 6 M FU TOBACCO DEPENDENCE REVIEW RESULTS PAROXYSMAL S/O INR S/O INR- FINGERSTICK 6 M FU Reason for Visit 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 Paroxysmal atrial fibrillation Lung nodule Stage 1 mild COPD by GOLD classification Atrial fibrillation, permanent Stage 1 mild COPD by GOLD classification Vitamin D deficiency Chronic thromboembolism of deep vein of right lower extremity 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 Paroxysmal atrial fibrillation Protein C deficiency Smoking greater than 40 pack years Chief Complaint S/O INR - ADDITIONAL EORDER FROM DR SWANSON 06/30/20 6 M FU TOBACCO DEPENDENCE REVIEW RESULTS PAROXYSMAL S/O INR S/O INR- FINGERSTICK 6 M FU [place] RIGHT LOWER LOBE S/O INR- FINGERSTICK Reason for Visit 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 Paroxysmal atrial fibrillation Lung nodule Stage 1 mild COPD by GOLD classification Atrial fibrillation, permanent Stage 1 mild COPD by GOLD classification Vitamin D deficiency Chronic thromboembolism of deep vein of right lower extremity 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 Paroxysmal atrial fibrillation Protein C deficiency Smoking greater than 40 pack years Chief Complaint REVIEW RESULTS PAROXYSMAL S/O INR S/O INR- FINGERSTICK 6 M FU [place] RIGHT LOWER LOBE S/O INR- FINGERSTICK 6 M FU Reason for Visit Stage 1 mild COPD by GOLD classification Lung nodule Atrial fibrillation, permanent Stage 1 mild COPD by GOLD classification Vitamin D deficiency Chronic thromboembolism of deep vein of right lower extremity 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 Paroxysmal atrial fibrillation Protein C deficiency Smoking greater than 40 pack years Stage 1 mild COPD by GOLD classification Lung nodule Chief Complaint S/O INR- FINGERSTICK 6 M FU [place] RIGHT LOWER LOBE S/O INR- FINGERSTICK 6 M FU 6 M FU S/O INR- FINGERSTICK Reason for Visit Atrial fibrillation, permanent Stage 1 mild COPD by GOLD classification Vitamin D deficiency Chronic thromboembolism of deep vein of right lower extremity 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 Paroxysmal atrial fibrillation Protein C deficiency Smoking greater than 40 pack years Stage 1 mild COPD by GOLD classification Lung nodule 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 Paroxysmal atrial fibrillation Chief Complaint [place] RIGHT LOWER LOBE S/O INR- FINGERSTICK 6 M FU 6 M FU S/O INR- FINGERSTICK 3 WK F/U WITH EKG A-FIB S/O INR- FINGERSTICK A-FIB A-FIB Reason for Visit Stage 1 mild COPD by GOLD classification Lung nodule 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 Paroxysmal atrial fibrillation 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 Paroxysmal atrial fibrillation Atrial fibrillation, permanent Chief Complaint [place] RIGHT LOWER LOBE S/O INR- FINGERSTICK 6 M FU 6 M FU S/O INR- FINGERSTICK 3 WK F/U WITH EKG A-FIB A-FIB A-FIB 1 wk post CV S/O INR- FINGERSTICK Reason for Visit Stage 1 mild COPD by GOLD classification Lung nodule 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 Paroxysmal atrial fibrillation 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 Paroxysmal atrial fibrillation Atrial fibrillation, permanent Chief Complaint 6 M FU S/O INR- FINGERSTICK 3 WK F/U WITH EKG A-FIB A-FIB A-FIB 1 wk post CV S/O INR- FINGERSTICK S/O INR- FINGERSTICK Reason for Visit 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 Paroxysmal atrial fibrillation 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 Paroxysmal atrial fibrillation Atrial fibrillation, permanent Chief Complaint 6 M FU S/O INR- FINGERSTICK 3 WK F/U WITH EKG A-FIB A-FIB A-FIB 1 wk post CV S/O INR- FINGERSTICK S/O INR- FINGERSTICK S/O INR- FINGERSTICK A-FIB A-FIB//STAT FINGERSTICK A-FIB//STAT FINGERSTICK A-FIB//STAT FINGERSTICK Reason for Visit 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 Paroxysmal atrial fibrillation 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 Paroxysmal atrial fibrillation Atrial fibrillation, permanent Atrial fibrillation, permanent Paroxysmal atrial fibrillation Chief Complaint A-FIB A-FIB//STAT FINGERSTICK A-FIB//STAT FINGERSTICK A-FIB//STAT FINGERSTICK S/O INR- FINGERSTICK S/P SUNSHINE Trotter 6 M FU 3 m fu S/O INR- FINGERSTICK 6 M FU S/O INR- FINGERSTICK S/O INR- FINGERSTICK Reason for Visit Atrial fibrillation, permanent Paroxysmal atrial fibrillation Acute URI Atrial fibrillation, permanent Stage 1 mild COPD by GOLD classification Vitamin D deficiency Chronic thromboembolism of deep vein of right lower extremity 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 MCC current use of anticoagulant Protein C deficiency Smoking greater than 40 pack years 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 Paroxysmal atrial fibrillation Stage 1 mild COPD by GOLD classification Paroxysmal atrial fibrillation Lung nodule Chief Complaint 3 m fu S/O INR- FINGERSTICK 6 M FU S/O INR- FINGERSTICK S/O INR- FINGERSTICK S/O INR- FINGERSTICK 3 M FU POST OP A FIB Amb Documentation Reason for Visit 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 Paroxysmal atrial fibrillation Stage 1 mild COPD by GOLD classification Paroxysmal atrial fibrillation Lung nodule 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 MCC current use of anticoagulant Paroxysmal atrial fibrillation Chief Complaint S/O INR- FINGERSTICK S/O INR- FINGERSTICK 3 M FU POST OP A FIB Amb Documentation 6 M FU S/O INR- FINGERSTICK Reason for Visit 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 Paroxysmal atrial fibrillation Skin lesion Stage 1 mild COPD by GOLD classification Vitamin D deficiency 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 Chief Complaint S/O INR- FINGERSTICK 3 M FU POST OP A FIB Amb Documentation 6 M FU S/O INR- FINGERSTICK 6 M FU S/O INR- FINGERSTICK Reason for Visit 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 MCC current use of anticoagulant Paroxysmal atrial fibrillation Skin lesion Stage 1 mild COPD by GOLD classification Vitamin D deficiency 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 Stage 1 mild COPD by GOLD classification Paroxysmal atrial fibrillation Chief Complaint 6 M FU S/O INR- FINGERSTICK S/O INR- FINGERSTICK S/O INR- FINGERSTICK 1 Y FU Reason for Visit Stage 1 mild COPD by GOLD classification Paroxysmal atrial fibrillation 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 MCC current use of anticoagulant Paroxysmal atrial fibrillation Chief Complaint S/O INR- FINGERSTICK 6 M FU S/O INR- FINGERSTICK Reason for Visit S/P ablation of atri al fibrillation Skin lesion Smoking greater than 20 pack years Stage 1 mild COPD by GOLD classification Vitamin D deficiency 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 Protein C deficiency Smoking greater than 40 pack years Chief Complaint S/O INR- FINGERSTICK 6 M FU S/O INR- FINGERSTICK S/O INR- FINGERSTICK Reason for Visit S/P ablation of atri al fibrillation Skin lesion Smoking greater than 20 pack years Stage 1 mild COPD by GOLD classification Vitamin D deficiency 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 Protein C deficiency Smoking greater than 40 pack years Chief Complaint S/O INR- FINGERSTICK S/O INR- FINGERSTICK S/O INR- FINGERSTICK Chief Complaint S/O INR- FINGERSTICK S/O INR- FINGERSTICK S/O INR- FINGERSTICK NICOTINE DEPENDENCE, SMOKING >40 PK YRS S/O INR- FINGERSTICK Chief Complaint S/O INR- FINGERSTICK S/O INR- FINGERSTICK NICOTINE DEPENDENCE, SMOKING >40 PK YRS S/O INR- FINGERSTICK Chief Complaint Admit Date S/O INR- FINGERSTICK July 15, 2024 9:27am S/O INR- FINGERSTICK September 02, 2024 8:35am Chronic obstructive pulmonary disease, u nspecified October 19, 2024 6:42am S/O INR- FINGERSTICK October 19, 2024 7:4 7am Chief Complaint Admit Date S/O INR- FINGERSTICK September 02, 2024 8:35am Chronic obstructive pulmonary disease, u nspecified October 19, 2024 6:42am NICOTINE November 17, 2024 7:5 2am S/O INR- FINGERSTICK November 17, 2024 8: 13am 9 M FU December 02, 2024 7:47a m Reason for Visit Admit Date Right upper lobe pulmonary nodule December 022024 7:47am FIFI (obstructive sleep apnea) December 02, 2024 7:47am Smoking greater than 40 pack years November 182024 7:47am Stage 1 mild COPD by GOLD classification December 02, 2024 7:47am Chief Complaint Admit Date S/O INR- FINGERSTICK September 02, 2024 8:35am Chronic obstructive pulmonary disease, u nspecified October 19, 2024 6:42am NICOTINE November 17, 2024 7:5 2am S/O INR- FINGERSTICK November 17, 2024 8: 13am 9 M FU December 02, 2024 7:47a m LUNG December 07, 2024 8:12a m 3 wk fu December 10, 2024 8:37a m Reason for Visit Admit Date Right upper lobe pulmonary nodule December 022024 7:47am FIFI (obstructive sleep apnea) December 02, 2024 7:47am Smoking greater than 40 pack years November 182024 7:47am Stage 1 mild COPD by GOLD classification December 02, 2024 7:47am Right upper lobe pulmonary nodule December 102024 8:37am FIFI (obstructive sleep apnea) December 10, 2024 8:37am Smoking greater than 40 pack years November 192024 8:37am Stage 1 mild COPD by GOLD classification December 10, 2024 8:37am Chief Complaint Admit Date Chronic obstructive pulmonary disease, u nspecified October 19, 2024 6:42am NICOTINE November 17, 2024 7:5 2am S/O INR- FINGERSTICK November 17, 2024 8: 13am 9 M FU December 02, 2024 7:47a m LUNG December 07, 2024 8:12a m 3 wk fu December 10, 2024 8:37a m INR January 17, 2025 9:45 am Chief Complaint Admit Date NICOTINE November 17, 2024 7:5 2am S/O INR- FINGERSTICK November 17, 2024 8: 13am 9 M FU December 02, 2024 7:47a m LUNG December 07, 2024 8:12a m 3 wk fu December 10, 2024 8:37a m INR January 17, 2025 9:45 am sore throat March 04, 2025 8: 08am Summary Purpose Additional Source Comments Reason for Visit (unrecogniz ed section and content) Reason For Visit Description Postop - subsequent visit Preliminary reason f or visit data, not yet signed by the author as of right shoulder post right sh oulder arthroscopy; right shoulder extensive joint debridement including biceps interval proximal biceps tenotomy debridement of anterior and posterior labral tearing removal of prior orthopaedic hardware; arthroscopic revision rotator cuff repair with augmentation on 04/19/2020 Reason Comments CARD New 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 OF HOSPITAL REF FOR A-FI B Reason Comments Plc Engineer - Other Reason Comments Preparations For Procedures Reason Comments Results Reason Comments Results Plc Engineer - Other Reason Comments Patient Update Reason Comments CARD Follow Up 3 Month S/p catheter abla tion Reason Comments CARD Follow Up 3 Month PAF Reason Comments New Patient Reason Onset Date Comments Surgery Scheduling 12/24/2024 Reason Comments Post-op Goals (unrecognized section and content) Goals may be documented in a n alternate sectionGoals may be documented in an alternate sectionGoals may be documented in an alternate sectionGoals may be documented in an alternate sectionGoals may be documented in an alternate sectionGoals may be documented in an alternate sectionGoals may be documented in an alternate sectionGoals may be documented in an alternate sectionGoals may be documented in an alternate sectionGoals may be documented in an alternate sectionGoals may be documented in an alternate sectionGoals may be documented in an alternate sectionGoals may be documented in an alternate sectionGoals may be documented in an alternate sectionGoals may be documented in an alternate sectionGoals may be documented in an alternate sectionGoals may be documented in an alternate sectionGoals may be documented in an alternate sectionGoals may be documented in an alternate sectionGoals may be documented in an alternate sectionGoals may be documented in an alternate sectionGoals may be documented in an alternate sectionGoals may be documented in an alternate sectionGoals may be documented in an alternate sectionGoals may be documented in an alternate section (unrecognized sect ion and content) No Status Records FoundNo Status Records FoundNo Status Records FoundNo Status Records Found INFORMATION SOURCE (unrecogn ized section and content) DATE CREATED [facility] DATE CREATED AUTHOR AUTHOR'S ORGANIZ ATION 05/05/2023 [facility] DATE CREATED AUTHOR AUTHOR'S ORGANIZ ATION 01/19/2025 [facility] DATE CREATED AUTHOR AUTHOR'S ORGANIZ ATION 01/31/2025 [facility] Source Comments (unrecognize d section and content) In the event this informatio n is protected by the Federal Confidentiality of Alcohol and Drug Abuse Patient Records regulations: The Federal rules restrict any use of the information to criminally investigate or prosecute any alcohol or drug abuse patient.[facility] [place] the event this information is protected by the Federal Confidentiality of Alcohol and Drug Abuse Patient Records regulations: The Federal rules restrict any use of the information to criminally investigate or prosecute any alcohol or drug abuse patient.[facility] [place] the event this information is protected by the Federal Confidentiality of Alcohol and Drug Abuse Patient Records regulations: The Federal rules restrict any use of the information to criminally investigate or prosecute any alcohol or drug abuse patient.[facility] [place] the event this information is protected by the Federal Confidentiality of Alcohol and Drug Abuse Patient Records regulations: The Federal rules restrict any use of the information to criminally investigate or prosecute any alcohol or drug abuse patient.[facility] [place] the event this information is protected by the Federal Confidentiality of Alcohol and Drug Abuse Patient Records regulations: The Federal rules restrict any use of the information to criminally investigate or prosecute any alcohol or drug abuse patient.[facility] [place] the event this information is protected by the Federal Confidentiality of Alcohol and Drug Abuse Patient Records regulations: The Federal rules restrict any use of the information to criminally investigate or prosecute any alcohol or drug abuse patient.[facility] [place] the event this information is protected by the Federal Confidentiality of Alcohol and Drug Abuse Patient Records regulations: The Federal rules restrict any use of the information to criminally investigate or prosecute any alcohol or drug abuse patient.[facility] [place] the event this information is protected by the Federal Confidentiality of Alcohol and Drug Abuse Patient Records regulations: The Federal rules restrict any use of the information to criminally investigate or prosecute any alcohol or drug abuse patient.[facility] [place] the event this information is protected by the Federal Confidentiality of Alcohol and Drug Abuse Patient Records regulations: The Federal rules restrict any use of the information to criminally investigate or prosecute any alcohol or drug abuse patient.[facility] Care Teams (unrecognized sec tion and content) Team Status: Active Member Role Status Dates Dr. Marion Feng MD Primary Care Provider Active Team Status: Inactive Member Role Status Dates Dr. Marion Feng MD Primary Care Provider Active Dr. Brandon Anders MD Attending Provider, Referring Pr ovider Active Team Status: Inactive Member Role Status Dates Dr. Marion Feng MD Primary Care Provider Active Dr. Jose Hylton MD Attending Provider, Referring Pro vider Active Hi Swanson MANAGER OF HOSPITAL, MANAGER OF HOSPITAL-C Other Provider Active Team Status: Active Member Role Status Dates Dr. Marion Feng MD Primary Care Provider Active Dr. Brandon Anders MD Attending Provider, Referring Pr ovider Active Video Tape Editor Relationship Specialty Start Date End Date Magen Ayon MD [address] [place] [address] PCP - General 08/10/03 Video Tape Editor Relationship Specialty Start Date End Date Magen Ayon MD [address] [place] [address] PCP - General 08/10/03 Team Status: Inactive Member Role Status Dates Dr. Marion Feng MD Primary Care Pro vider, Attending Provider, Referring Provider Active Team Status: Inactive Member Role Status Dates Dr. Marion Feng MD Primary Care Provider, Referri ng Provider Active Dr. Brandon Anders MD Attending Provider Active Team Status: Inactive Member Role Status Dates Dr. Marion Feng MD Primary Care Provider, Referri ng Provider Active Hi Swanson MANAGER OF HOSPITAL, MANAGER OF HOSPITAL-C Attending Provider Active Team Status: Active Member Role Status Dates Dr. Marion Feng MD Primary Care Provider Active Dr. Jose Hylton MD Other Provider Active Kassy Stack PA, PA Attending Provider Active Team Status: Active Member Role Status Dates Dr. Marion Feng MD Primary Care Provider Active Dr. Jose Hylton MD Attending Provider, Referring Provider, Other Provider Active Team Status: Active Member Role Status Dates Dr. Marion Feng MD Primary Care Provider Active Dr. Jose Hylton MD Referring Provider, Other Provide r Active Dr. Yayo Muñiz DO Attending Provider Active Team Status: Inactive Member Role Status Dates Dr. Marion Feng MD Primary Care Provider, Referri ng Provider Active Dr. Jose Hylton MD Attending Provider Active Team Status: Inactive Member Role Status Dates Dr. Marion Feng MD Primary Care Provider Active Dr. Jose Hylton MD Attending Provider, Referring Pro vider Active Team Status: Inactive Member Role Status Dates Dr. Marion Feng MD Primary Care Provider, Other P rovider Active Dr. Jose Hylton MD Attending Provider, Referring Pro vider Active Hi Swanson MANAGER OF HOSPITAL, MANAGER OF HOSPITAL-C Other Provider Active Team Status: Active Member Role Status Dates Dr. Marion Feng MD Primary Care Provider Active Hi Swanson MANAGER OF HOSPITAL, MANAGER OF HOSPITAL-C Attending Provider Active Team Status: Active Member Role Status Dates Dr. Marion Feng MD Primary Care Provider Active Dr. Jose Hylton MD Attending Provider, Referring Pro vider Active Hi Swanson MANAGER OF HOSPITAL, MANAGER OF HOSPITAL-C Other Provider Active Team Status: Inactive Member Role Status Dates Dr. Marion Feng MD Primary Care Provider Active Hi Swanson MANAGER OF HOSPITAL, MANAGER OF HOSPITAL-C Attending Provider, Referring Pro vider Active Video Tape Editor Relationship Specialty Start Date End Date Marion Feng MD [address] [place] [address] PCP - General Internal Medicine 08/05/22 Video Tape Editor Relationship Specialty Start Date End Date Marion Feng MD [address] [place] [address] PCP - General Internal Medicine 08/05/22 Team Status: Inactive Member Role Status Dates Dr. Marion Feng MD Primary Care Provider, Attendi ng Provider Active Video Tape Editor Relationship Specialty Start Date End Date Marion Feng MD [address] [place] [address] PCP - General Internal Medicine 08/05/22 Video Tape Editor Relationship Specialty Start Date End Date Marion Feng MD [address] [place] [address] PCP - General Internal Medicine 08/05/22 Video Tape Editor Relationship Specialty Start Date End Date Marion Feng MD [address] [place] [address] PCP - General Internal Medicine 08/05/22 Team Status: Inactive Member Role Status Dates Dr. Marion Feng MD Primary Care Provider Active Start: July 15, 2024 End: July 15, 2024 Dr. Jose Hylton MD Attending Provider Active S tart: July 15, 2024 End: July 15, 2024 Dr. Jose Hyltno MD Referring Provider Active S tart: July 15, 2024 End: July 15, 2024 Hi Swanson MANAGER OF HOSPITAL, MANAGER OF HOSPITAL-C Other Provider Active Start : July 15, 2024 End: July 15, 2024 Team Status: Inactive Member Role Status Dates Dr. Marion Feng MD Primary Care Provider Active Start: September 02, 2024 End: September 17, 2024 Dr. Jose Hylton MD Attending Provider Active S tart: September 02, 2024 End: September 17, 2024 Dr. Jose Hylton MD Referring Provider Active S tart: September 02, 2024 End: September 17, 2024 Hi Swanson MANAGER OF HOSPITAL, MANAGER OF HOSPITAL-C Other Provider Active Start : September 02, 2024 End: September 17, 2024 Team Status: Inactive Member Role Status Dates Dr. Marion Feng MD Primary Care Provider Active Start: October 19, 2024 End: October 19, 2024 Kylie Motta MANAGER OF HOSPITAL, MANAGER OF HOSPITAL-C Attending Provider Active Start: October 19, 2024 End: October 19, 2024 Kylie Motta MANAGER OF HOSPITAL, MANAGER OF HOSPITAL-C Referring Provider Active Start: October 19, 2024 End: October 19, 2024 Team Status: Active Member Role Status Dates Dr. Marion Feng MD Primary Care Provider Active Start: October 19, 2024 Dr. Jose Hylton MD Attending Provider Active S tart: October 19, 2024 Dr. Jose Hylton MD Referring Provider Active S tart: October 19, 2024 Hi Swanson MANAGER OF HOSPITAL, MANAGER OF HOSPITAL-C Other Provider Active Start : October 19, 2024 Team Status: Inactive Member Role Status Dates Dr. Marion Feng MD Primary Care Provider Active Start: November 17, 2024 End: November 17, 2024 Kylie Motta MANAGER OF HOSPITAL, MANAGER OF HOSPITAL-C Attending Provider Active Start: November 17, 2024 End: November 17, 2024 Kylie Motta MANAGER OF HOSPITAL, MANAGER OF HOSPITAL-C Referring Provider Active Start: November 17, 2024 End: November 17, 2024 Team Status: Inactive Member Role Status Dates Dr. Marion Feng MD Primary Care Provider Active Start: November 17, 2024 End: November 17, 2024 Dr. Jose Hylton MD Attending Provider Active S tart: November 17, 2024 End: November 17, 2024 Dr. Jose Hylton MD Referring Provider Active S tart: November 17, 2024 End: November 17, 2024 Hi Swanson MANAGER OF HOSPITAL, MANAGER OF HOSPITAL-C Other Provider Active Start : November 17, 2024 End: November 17, 2024 Team Status: Inactive Member Role Status Dates Dr. Marion Feng MD Primary Care Provider Active Start: December 02, 2024 End: December 02, 2024 Dr. Marion Feng MD Referring Provider Active Start: December 02, 2024 End: December 02, 2024 Kylie Motta NP, MANAGER OF HOSPITAL-C Attending Provider Active Start: December 02, 2024 End: December 02, 2024 Team Status: Inactive Member Role Status Dates Dr. Marion Feng MD Primary Care Provider Active Start: December 07, 2024 End: December 07, 2024 Kylie Motta MANAGER OF HOSPITAL, MANAGER OF HOSPITAL-C Attending Provider Active Start: December 07, 2024 End: December 07, 2024 Kylie Motta MANAGER OF HOSPITAL, MANAGER OF HOSPITAL-C Referring Provider Active Start: December 07, 2024 End: December 07, 2024 Team Status: Inactive Member Role Status Dates Dr. Marion Feng MD Primary Care Provider Active Start: December 10, 2024 End: December 10, 2024 Dr. Marion Feng MD Referring Provider Active Start: December 10, 2024 End: December 10, 2024 Kylie Motta MANAGER OF HOSPITAL, MANAGER OF HOSPITAL-C Attending Provider Active Start: December 10, 2024 End: December 10, 2024 Video Tape Editor Relationship Specialty Start Date End Date Marion Feng [address] [place] [id number] PCP - General Internal Medicine 12/15/24 Kylie Motta [address] [place] [address] Nurse Practitioner 12/15/24 Video Tape Editor Relationship Specialty Start Date End Date Marion Feng [address] [place] [id number] PCP - General Internal Medicine 12/15/24 Kylie Motta [address] [place] [address] Nurse Practitioner 12/15/24 Video Tape Editor Relationship Specialty Start Date End Date Marion Feng [address] [place] [address] PCP - General Internal Medicine 12/15/24 Kylie Motta [address] [place] [address] Nurse Practitioner 12/15/24 Video Tape Editor Relationship Specialty Start Date End Date Marion Feng [address] [place] [address] PCP - General Internal Medicine 12/15/24 Kylie Motta [address] [place] [address] Nurse Practitioner 12/15/24 Team Status: Active Member Role/Relationship Status Dates Dr. Marion Feng MD Primary Care Provider Active Team Status: Inactive Member Role/Relationship Status Dates Dr. Marion Feng MD Primary Care Provider Active Start: October 19, 2024 End: October 19, 2024 Kylie Motta MANAGER OF HOSPITAL, MANAGER OF HOSPITAL-C Attending Provider Active Start: October 19, 2024 End: October 19, 2024 Kylie Motta MANAGER OF HOSPITAL, MANAGER OF HOSPITAL-C Referring Provider Active Start: October 19, 2024 End: October 19, 2024 Team Status: Inactive Member Role/Relationship Status Dates Dr. Marion Feng MD Primary Care Provider Active Start: November 17, 2024 End: November 17, 2024 Kylie Motta MANAGER OF HOSPITAL, MANAGER OF HOSPITAL-C Attending Provider Active Start: November 17, 2024 End: November 17, 2024 Kylie Motta MANAGER OF HOSPITAL, MANAGER OF HOSPITAL-C Referring Provider Active Start: November 17, 2024 End: November 17, 2024 Team Status: Inactive Member Role/Relationship Status Dates Dr. Marion Feng MD Primary Care Provider Active Start: November 17, 2024 End: November 17, 2024 Dr. Jose Hylton MD Attending Provider Active S tart: November 17, 2024 End: November 17, 2024 Dr. Jose Hylton MD Referring Provider Active S tart: November 17, 2024 End: November 17, 2024 Hi Swanson MANAGER OF HOSPITAL, MANAGER OF HOSPITAL-C Other Provider Active Start : November 17, 2024 End: November 17, 2024 Team Status: Inactive Member Role/Relationship Status Dates Dr. Marion Feng MD Primary Care Provider Active Start: December 02, 2024 End: December 02, 2024 Dr. Marion Feng MD Referring Provider Active Start: December 02, 2024 End: December 02, 2024 Kylie Motta MANAGER OF HOSPITAL, MANAGER OF HOSPITAL-C Attending Provider Active Start: December 02, 2024 End: December 02, 2024 Team Status: Inactive Member Role/Relationship Status Dates Dr. Marion Feng MD Primary Care Provider Active Start: December 07, 2024 End: December 07, 2024 Kylie Motta MANAGER OF HOSPITAL, MANAGER OF HOSPITAL-C Attending Provider Active Start: December 07, 2024 End: December 07, 2024 Kylie Motta MANAGER OF HOSPITAL, MANAGER OF HOSPITAL-C Referring Provider Active Start: December 07, 2024 End: December 07, 2024 Team Status: Inactive Member Role/Relationship Status Dates Dr. Marion Feng MD Primary Care Provider Active Start: December 10, 2024 End: December 10, 2024 Dr. Marion Feng MD Referring Provider Active Start: December 10, 2024 End: December 10, 2024 Kylie Motta MANAGER OF HOSPITAL, MANAGER OF HOSPITAL-C Attending Provider Active Start: December 10, 2024 End: December 10, 2024 Team Status: Inactive Member Role/Relationship Status Dates Dr. Marion Feng MD Primary Care Provider Active Start: January 17, 2025 End: January 17, 2025 Kassy PHILLIP PA Attending Provider Active Start: January 17, 2025 End: January 17, 2025 Kassy HPILLIP PA Referring Provider Active Start: January 17, 2025 End: January 17, 2025 Video Tape Editor Relationship Specialty Start Date End Date Marion Feng [address] [place] [id number] PCP - General Internal Medicine 12/15/24 Kylie Motta [address] [place] [id number] Nurse Practitioner 12/15/24 Team Status: Inactive Member Role/Relationship Status Dates Dr. Marion Feng MD Primary Care Provider Active Start: November 17, 2024 End: November 17, 2024 Kylie Motta MANAGER OF HOSPITAL, MANAGER OF HOSPITAL-C Attending Provider Active Start: November 17, 2024 End: November 17, 2024 Kylie Motta MANAGER OF HOSPITAL, MANAGER OF HOSPITAL-C Referring Provider Active Start: November 17, 2024 End: November 17, 2024 Team Status: Inactive Member Role/Relationship Status Dates Dr. Marion Feng MD Primary Care Provider Active Start: November 17, 2024 End: November 17, 2024 Dr. Jose Hylton MD Attending Provider Active S tart: November 17, 2024 End: November 17, 2024 Dr. Jose Hylton MD Referring Provider Active S tart: November 17, 2024 End: November 17, 2024 Hi Swanson MANAGER OF HOSPITAL, MANAGER OF HOSPITAL-C Other Provider Active Start : November 17, 2024 End: November 17, 2024 Team Status: Inactive Member Role/Relationship Status Dates Dr. Marion Feng MD Primary Care Provider Active Start: December 02, 2024 End: December 02, 2024 Dr. Marion Feng MD Referring Provider Active Start: December 02, 2024 End: December 02, 2024 Kylie Motta MANAGER OF HOSPITAL, MANAGER OF HOSPITAL-C Attending Provider Active Start: December 02, 2024 End: December 02, 2024 Team Status: Inactive Member Role/Relationship Status Dates Dr. Marion Feng MD Primary Care Provider Active Start: December 07, 2024 End: December 07, 2024 Kylie Motta MANAGER OF HOSPITAL, MANAGER OF HOSPITAL-C Attending Provider Active Start: December 07, 2024 End: December 07, 2024 Kylie Motta MANAGER OF HOSPITAL, MANAGER OF HOSPITAL-C Referring Provider Active Start: December 07, 2024 End: December 07, 2024 Team Status: Inactive Member Role/Relationship Status Dates Dr. Marion Feng MD Primary Care Provider Active Start: December 10, 2024 End: December 10, 2024 Dr. Marion Feng MD Referring Provider Active Start: December 10, 2024 End: December 10, 2024 Kylie Motta MANAGER OF HOSPITAL, MANAGER OF HOSPITAL-C Attending Provider Active Start: December 10, 2024 End: December 10, 2024 Team Status: Inactive Member Role/Relationship Status Dates Dr. Marion Feng MD Primary Care Provider Active Start: January 17, 2025 End: January 17, 2025 Kassy PHILLIP PA Attending Provider Active Start: January 17, 2025 End: January 17, 2025 KENJI Terry Referring Provider Active Start: January 17, 2025 End: January 17, 2025 Team Status: Inactive Member Role/Relationship Status Dates Dr. Marion Feng MD Primary Care Provider Active Start: March 04, 2025 End: March 04, 2025 Dr. Marion Feng MD Referring Provider Active Start: March 04, 2025 End: March 04, 2025 Renny PHILLIP PA Attending Provider Active Sta rt: March 04, 2025 End: March 04, 2025 Scheduled Active and Recently Administ ered Medications (unrecognized section and content) Medication Order 01/12/2025 01/13/2025 01/14/2025 acetaminophen (Tylenol) tablet 1,000 mg 1,000 mg, Oral, Every 8 hours, First dose (after last modification) on Fri01/11/25 at 0945, [facility], Give in addition to any other pain medication ordered at same time for any pain indication. 0148 (Given - Provider: Jerica Lorenzo RN)0846 (Given - Provider: Katie Schneider RN)1755 (Given - Provider: Katie Schneider RN) 0148 (Given - Provider: Bekah Tristan, BENIGNO)0808 (Given - Provider: Katie Schneider RN)1507 (Given - Provider: Cyndee Ryan RN) 0127 (Given - Provider: Bekah Tristan, BENIGNO)0856 (Given - Provider: Lisa Barfield, BENIGNO) atorvastatin (Lipitor) tablet 10 mg 10 mg, Oral, Nightly, First dose on Fri01/10/25 at 2100, Recovery [facility] On Unit, Substituted for simvastatin (Zocor). 2040 (Given - Provider: Bekah Tristan RN) 2119 (Given - Provider: Bekah Tristan RN) buPROPion SR (Wellbutrin SR) 12 hr tablet 150 mg 150 mg, Oral, 2 times daily, First dose on Fri01/11/25 at 0930, Do not crush, chew, or split. 0836 (Given - Provider: Katie Schneider RN)2040 (Given - Provider: Bekah Tristan, BENIGNO) 0806 (Given - Provider: Katie Schneider RN)2119 (Given - Provider: Bekah Tristan, BENIGNO) 0807 (Given - Provider: Lisa Barfield, BENIGNO) famotidine (Pepcid) tablet 20 mg 20 mg, Oral, Daily, First dose on Fri01/11/25 at 0900, [facility] 0835 (Given - Provider: Katie Schneider RN) 0807 (Given - Provider: Katie Schneider RN) 0808 (Given - Provider: Lisa Barfield RN) ipratropium-albuterol (Duo-Neb) 0.5-2.5 mg/3 mL nebulizer solution 3 mL (CANCELED) 3 mL, Nebulization, 2 times daily, First dose (after last modification) on Fri01/11/25 at 2000, [facility] 0842 (Not Given - Provider: Katie Schneider RN - Reason: Other - Comment: R.N did not give this med)0945 (Given - Provider: Vikki Noel TREASURY ANALYST) metoprolol succinate XL (Toprol-XL) 24 hr tablet 25 mg 25 mg, Oral, Daily, First dose on Fri01/11/25 at 0900, Recovery [facility] On [facility], Do not crush or chew. 0835 (Given - Provider: Katie Schneider RN) 0806 (Given - Provider: Katie Schneider RN) 0808 (Given - Provider: Lisa Barfield, BENIGNO) mometasone-formoterol (Dulera 200) 200-5 MCG/ACT inhaler 2 puff 2 puff, Inhalation, 2 times daily, First dose on Fri01/10/25 at 1230, Recovery [facility] On [facility], Rinse mouth with water after use to reduce aftertaste and incidence of candidiasis. Do not swallow. 0949 (Given - Provider: Katie Schneider RN - Comment: didnt give at original scan; giving late)2040 (Given - Provider: Bekah Tristan RN) 806 (Given - Provider: Katie Schneider RN)2150 (Given - Provider: Bekah Tristan, BENIGNO) 0808 (Given - Provider: Lisa Barfield, BENIGNO) mupirocin (Bactroban) 2 % ointment 1 Application 1 Application, Nasal, 2 times daily, First dose on Fri01/10/25 at 1230, For 5 days, Recovery [facility] On [facility], Indications: MRSA Nasal Decolonization 0842 (Given - Provider: Katie Schneider RN)2149 (Given - Provider: Bekah Tristan, RN) 08 (Not Given - Provider: Kaite Schneider RN - Reason: Patient/family refused)2150 (Not Given - Provider: Bekah Tristan RN - Reason: Patient/family refused) 08 (Not Given - Provider: Lisa Barfield RN - Reason: Other) polyethylene glycol (PEG) 3350 (Miralax) packet 17 g 17 g, Oral, Daily, First dose on Fri01/11/25 at 0945 0836 (Given - Provider: Katie Schneider RN) 0807 (Given - Provider: Katie Schneider RN) 0808 (Given - Provider: Lisa Barfield RN) senna-docusate sodium (Senokot-S) 8.6-50 MG tablet 2 tablet 2 tablet, Oral, Daily, First dose on Fri01/11/25 at 0945 0835 (Given - Provider: Katie Schneider RN) 0807 (Given - Provider: Katie Schneider RN) 0808 (Given - Provider: Lisa Barfield RN) sodium chloride 0.9% (NS) flush 5-40 mL 5-40 mL, IntraVENous, Every 12 hours scheduled (2 times per day), First dose on Fri01/10/25 at 2100, Recovery [facility] On Unit, or Line Patency: Peripheral IV = 5 mL; Midline or Central Line = 10 mL/lumen. If following IV push medication, administer flush at same rate as the IV push. Flush volume is determined by type of infusion therapy being given. For non-viscous solutions use: Peripheral IV = 5 mL Midline or Central Line = 10 mL/lumen For viscous solutions (i.e. blood components, parenteral nutrition, contrast media, or after obtaining blood sample) use: Peripheral IV = 10 mL Midline or Central Line = 20 mL/lumen 0842 (Given - Provider: Katie Schneider RN)2041 (Given - Provider: Bekah Tristan RN) 0809 (Given - Provider: Katie Schneider RN)0 (Given - Provider: Bekah Tristan RN) 0812 (Given - Provider: Lisa Barfield RN) tiotropium (Spiriva Respimat) 2.5 MCG/ACT inhaler 2 puff 2 puff, Inhalation, Daily, First dose on Fri01/11/25 at 0900, [facility] 0950 (Given - Provider: Katie Schneider RN - Comment: didnt give at original scan; giving late) 0807 (Given - Provider: Katie Schneider RN) 0808 (Given - Provider: Lisa Barfield RN) warfarin (Coumadin) tablet 5 mg (COMPLETED) 5 mg, Oral, Once Warfarin, On Fri01/12/25 at 1700, For 1 dose 1755 (Given - Provider: Katie Schneider RN) warfarin (Coumadin) tablet 5 mg 5 mg, Oral, Once Warfarin, On Fri01/14/25 at 1700, For 1 dose warfarin (Coumadin) tablet 7.5 mg (COMPLETED) 7.5 mg, Oral, Once Warfarin, On Amna 01/13/25 at 1700, For 1 dose 1708 (Given - Provider: Katie Schneider RN) PRN Medication Order 01/12/2025 01/13/2025 01/14/2025 ipratropium-albuterol (Duo-Neb) 0.5-2.5 mg/3 mL nebulizer solution 3 mL 3 mL, Nebulization, Every 4 hours PRN, shortness of breath, Starting on Fri01/12/25 at 1045, Recovery [facility] On Unit magnesium hydroxide (Milk of Magnesia) 400 MG/5ML suspension 30 mL 30 mL, Oral, 2 times daily PRN, constipation, Starting on Fri01/11/25 at 0932, Follow dose with 8 oz of water. morphine injection 2 mg(Linked Group 1) 2 mg, IntraVENous, Every 2 hour PRN, moderate pain (4-6), Starting on Fri01/10/25 at 1222, Recovery [facility] On [facility], If oral and IV narcotics ordered, use oral first and only use IV if oral is ineffective or cannot take oral. Do Not give oral and IV within 1 hour of each other unless specifically ordered. morphine injection 4 mg(Linked Group 1) 4 mg, IntraVENous, Every 2 hour PRN, severe pain (7-10), Starting on Fri01/10/25 at 1222, Recovery [facility] On Unit, If oral and IV narcotics ordered, use oral first and only use IV if oral is ineffective or cannot take oral. Do Not give oral and IV within 1 hour of each other unless specifically ordered. naloxone (Narcan) injection 0.4 mg 0.4 mg, IntraVENous, Every 5 min PRN, opioid reversal, respiratory depression, Starting on Fri01/10/25 at 1223, +++ For RR <10, pinpoint pupils, over sedation for opioid reversal - MUST notify station baggage agent provider immediately after first dose, may give IM or SQ if no IV access +++ ondansetron (Zofran) injection 4 mg(Linked Group 2) 4 mg, IntraVENous, Every 6 hours PRN, nausea, vomiting, Starting on Fri01/10/25 at 1222, Recovery & On Unit, 1st Line. Give IV if patient is unable to take orally. If inadequate response within 60 minutes, proceed to next-line agent or contact provider if no further options ordered. ondansetron ODT (Zofran-ODT) disintegrating tablet 4 mg(Linked Group 2) 4 mg, Oral, Every 8 hours PRN, nausea, vomiting, Starting on Fri01/10/25 at 1222, Recovery [facility] On Unit, 1st Line. If inadequate response within 60 minutes, proceed to next-line agent or contact provider if no further options ordered. Patient should allow tablet to dissolve on tongue. Do not remove from blister pack until just before administering. oxyCODONE (Roxicodone) immediate release tablet 10 mg(Linked Group 3) 10 mg, Oral, Every 4 hours PRN, severe pain (7-10), Starting on Fri01/11/25 at 0948 0147 (Given - Provider: Jerica Lorenzo RN)0835 (Given - Provider: Katie Schneider RN)1350 (Given - Provider: Katie Schneider RN)1755 (Given - Provider: Katie Schneider RN)2159 (See Alternative - Provider: Bekah Tristan RN) 0150 (See Alternative - Provider: Bekah Tristan RN)0816 (See Alternative - Provider: Katie Schneider RN)1157 (See Alternative - Provider: Katie Schneider RN) oxyCODONE (Roxicodone) immediate release tablet 5 mg(Linked Group 3) 5 mg, Oral, Every 4 hours PRN, moderate pain (4-6), Starting on Fri01/11/25 at 0948 0147 (See Alternative - Provider: Jerica Lorenzo RN)0835 (See Alternative - Provider: Katie Schneider RN)1350 (See Alternative - Provider: Katie Schneider RN)1755 (See Alternative - Provider: Katie Schneider RN)2159 (Given - Provider: Bekah Tristan RN) 0150 (Given - Provider: Bekah Tristan RN)0816 (Given - Provider: Katie Schneider RN)1157 (Given - Provider: Katie Schneider RN) sodium chloride 0.9 % infusion 5-250 mL/hr, IntraVENous, PRN, if patient receiving piggyback infusions and maintenance fluids are not ordered OR KVO fluids to protect IV site / prevent frequent line interruptions/ long duration, Starting on Fri01/10/25 at 1222, Recovery [facility] On Unit, For piggyback infusion, administer at same rate as piggyback for a total of 25 mL. Enter 25 mL into dose field and piggyback rate into rate field of order. If piggyback is infusing at a rate less than 100 mL/hr, enter 25 mL into dose field and 100 mL/hr into rate field of order. For KVO fluids, enter rate of 20 mL/hr or less into rate field of order. sodium chloride 0.9% (NS) flush 5-40 mL 5-40 mL, IntraVENous, PRN, line care, After every IV line use, Starting on Fri01/10/25 at 1222, Recovery & On Unit, or Line Patency: Peripheral IV = 5 mL; Midline or Central Line = 10 mL/lumen. If following IV push medication, administer flush at same rate as the IV push. Flush volume is determined by type of infusion therapy being given. For non-viscous solutions use: Peripheral IV = 5 mL Midline or Central Line = 10 mL/lumen For viscous solutions (i.e. blood components, parenteral nutrition, contrast media, or after obtaining blood sample) use: Peripheral IV = 10 mL Midline or Central Line = 20 mL/lumen Linked Groups Order Group 1: morphine injection 2 mgJump to med 2 mg, IntraVENous, Every 2 hour PRN, moderate pain (4-6), Starting on Fri01/10/25 at 1222, Recovery & On Unit, If oral and IV narcotics ordered, use oral first and only use IV if oral is ineffective or cannot take oral. Do Not give oral and IV within 1 hour of each other unless specifically ordered. Or morphine injection 4 mgJump to med 4 mg, IntraVENous, Every 2 hour PRN, severe pain (7-10), Starting on Fri01/10/25 at 1222, Recovery & On Unit, If oral and IV narcotics ordered, use oral first and only use IV if oral is ineffective or cannot take oral. Do Not give oral and IV within 1 hour of each other unless specifically ordered. Group 2: ondansetron ODT (Zofran-ODT) disintegrating tablet 4 mgJump to med 4 mg, Oral, Every 8 hours PRN, nausea, vomiting, Starting on Fri01/10/25 at 1222, Recovery & On Unit, 1st Line. If inadequate response within 60 minutes, proceed to next-line agent or contact provider if no further options ordered. Patient should allow tablet to dissolve on tongue. Do not remove from blister pack until just before administering. Or ondansetron (Zofran) injection 4 mgJump to med 4 mg, IntraVENous, Every 6 hours PRN, nausea, vomiting, Starting on Fri01/10/25 at 1222, Recovery & On Unit, 1st Line. Give IV if patient is unable to take orally. If inadequate response within 60 minutes, proceed to next-line agent or contact provider if no further options ordered. Group 3: oxyCODONE (Roxicodone) immediate release tablet 5 mgJump to med 5 mg, Oral, Every 4 hours PRN, moderate pain (4-6), Starting on Fri01/11/25 at 0948 Or oxyCODONE (Roxicodone) immediate release tablet 10 mgJump to med 10 mg, Oral, Every 4 hours PRN, severe pain (7-10), Starting on Fri01/11/25 at 0948 FOR RECORDS PERTAINING TO PATIENTS WHO ARE OR HAVE BEEN ENROLLED IN A CHEMICAL DEPENDENCY/SUBSTANCEABUSE PROGRAM, SOME INFORMATION MAY BE OMITTED. This clinical summary was aggregated from multiple sources. Caution should be exercised in using it in the provision of clinical care. This summary normalizes information from multiple sources, and as a consequence, information in this document may materially change the coding, format and clinical context of patient data. In addition, data may be omitted in some cases. CLINICAL DECISIONS SHOULD BE BASED ON THE PRIMARY CLINICAL RECORDS. [email or web address] provides no warranty or guarantee of the accuracy or completeness of information in this document.
--- OUTSIDE RECORDS SUMMARY | 2025-03-04 20:25 | XMS RPT_ITS | CCD ---
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 Marion Feng Primary Care Provider Dr. Marion Feng Referring Provider [phone] Sreekanth PHILLIP, KENJI Ramírez Attending Provider Ángela CARDIAC RN, CARDIAC RNJluisC Kylie Attending Provider Dr. Jose Hylton Attending [...] Dr. Marion Feng Referring Provider [phone] Kiki CARDIAC RNANA Attending Provider Dr. Marion Feng Primary Care [...] Dr. Marion Feng Referring Provider [phone] Roof CARDIAC RN, CARDIAC RN-Giovani Traore Attending Provider [phone] Dr. Jose [...] Dr. Marion Feng Attending Provider [phone] Roof CARDIAC RN, CARDIAC RN-Giovani Traore Attending Provider Dr. Brandon Anders Attending Provider Dr. Marion Feng Primary Care Provider Dr. Marion Feng Referring Provider [phone] Roof CARDIAC RN, CARDIAC RN-Giovani Traore Attending Provider Dr. Brandon Anders Attending Provider Marion Feng MD Primary Care Provider [phone] Dr. Marion Feng Primary Care Provider Dr. Marion Feng Referring Provider [phone] [facility] CARDIAC RN, CARDIAC RN-C Hi Traore Attending Provider Dr. Marion Feng [...] Hylton MD Referring Provider [phone] Roof CARDIAC RN-C, Hi H Other Provider Motta CARDIAC RN-C, Kylie Attending Provider Motta CARDIAC RN-C, Kylie Referring Provider Jung HEDRICK, Dr. Gupta Primary Care Provider Warner HEDRICK, Dr. Garcia Attending Provider [phone] Warner HEDRICK, Dr. Garcia Referring Provider [phone] Roof CARDIAC RN-C, Hi H Other Provider Jung HEDRICK, Dr. Gupta Referring Provider Marion Feng Primary Care Provider Ángela, Kylie Unavailable Jung HEDRICK, Dr. Gupta Primary Care Provider Warner HEDRICK, Dr. Garcia Attending Provider [phone] Warner HEDRICK, Dr. Garcia Referring Provider [phone] Roof CARDIAC RN-C, Hi H Other Provider Kassy Ramesh Attending Provider [phone] Kassy Ramesh Referring Provider [phone] Motta CARDIAC RN, Kylie Referring Unavailable Motta CARDIAC RN, Kylie Attending Unavailable Jung, Marion Primary Care Unavailable Motta CARDIAC RN, Kylie Referring Unavailable Jung, Marion Primary Care Unavailable Motta CARDIAC RN, Kylie Attending Unavailable Motta CARDIAC RN, Kylie Referring Unavailable Yayo Muñiz Attending Unavailable Jung, Marion Primary Care Unavailable Jung, Marion Referring Unavailable Roof CARDIAC RN, Hi H Attending Unavailable Jung, Marion Primary Care Unavailable Jung, Marion Primary Care Unavailable Motta CARDIAC RN, Kylie Attending Unavailable Jung, Marion Referring Unavailable Jung, Marion Referring Unavailable Jung, Marion Primary Care Unavailable Motta CARDIAC RN, Kylie Attending Unavailable Motta CARDIAC RN, Kylie Attending Unavailable Jung, Marion Primary Care Unavailable Jung, Marion Referring Unavailable Roof CARDIAC RN, Hi H Attending Unavailable Jung, Marion Primary Care Unavailable Jung, Marion Referring Unavailable Jung, Marion Primary Care Unavailable Kassy Ramesh Referring Unavail able Kassy Ramesh Attending Unavail able Jung, Marion Primary Care Unavailable Roof CARDIAC RN, Hi H Consulting Unavailable Warner, Jose Referring Unavailable Warner, Jose Attending Unavailable Roof CARDIAC RN, Hi H Consulting Unavailable Jung, Marion Primary Care Unavailable Warner, Jose Attending Unavailable Warner, Jose Referring Unavailable Roof CARDIAC RN, Hi H Consulting Unavailable Jung, Marion Primary Care Unavailable Warner, [place] Attending Unavailable Warner, [place] Referring Unavailable Roof CARDIAC RN, Hi H Consulting Unavailable Jung, Marion Primary Care Unavailable Warner, Jose Attending Unavailable Warner, [place] Referring Unavailable Roof CARDIAC RN, Hi H Consulting Unavailable Jung, Marion Primary Care Unavailable Warner, [place] Referring Unavailable Warner, [place] Attending Unavailable Motta CARDIAC RN, Kylie Attending Unavailable Roof CARDIAC RN, Hi H Consulting Unavailable Jung, Marion Primary Care Unavailable Warner, [place] Attending Unavailable Warner, [place] Referring Unavailable Jung, Marion Primary Care Unavailable [...] Translations: [PLANT POLLENS] allergy to substance 02-08-[address] [facility] Work Phone: (10 sources) Seasonal allergy; Translations: [SEASONAL ALLERGIES] Allergy to substance 02-18-20 Other: See Comments [facility] Work Phone: (3 sources) Seasonal allergy Environmental allergy 02-18-[address] [facility] Medications Current Medications Medication Drug Class(es) [...] 02, 2024 8:04am Start: 03-15-2024 End: 12-02-2024 Hvgmsxreof-Vqgcrtgt-Wbpdlefs ol (Breztri Aerosphere) 160-9-4.8 mcg/actuation HFA aerosol inhaler Discontinued 2 NMA INHALATION TWICE A DAY 3 3 March 15, 2024 12:00am December 02, 2024 8:04am Start: 03-15-2024 End: 12-02-2024 Rstqfzfulj-Vcjlqgzo-Kdimtfyy ol (Breztri Aerosphere) 160-9-4.8 mcg/actuation HFA aerosol [...] Start: 02-29-2020 take 1 capsule by mo [facility] once daily Yqbpbumcize-Ccfycwajk-Rbi C-Mn (Glucosamine Chondroitin Maxstr) 500-400 mg capsule Active 1 CAP PO DAILY February 28, 2020 11:00pm Start: 02-29-2020 take 1 capsule by [facility] once daily Rocomfifsts-Psviowflo-Coa C-Mn (Glucosamine Chondroitin Maxstr) 500-400 mg capsule Active 1 CAP PO DAILY February 29, 2020 12:00am GDSCHPFUXEX-ISNVFGSLP-IRL C- [place] PO (6 sources) take 1 capsule by mouth once daily OGCVZWIJMDF-JZDDEUPNP-NSL C-MN PO Take 1 capsule by mouth [...] CP[facility] (9 sources) [facility] Comment on above: daily at bedtime. docusate sodium 50 mg / sennosides, detention 8.6 mg oral tablet (2 sources) Start: [...] CAPS 2 capsules daily GLUCOSAMINE-CHO NDROIT-VIT C-MN [id number] Jennifer Porras LPN 1 ml HYDROmorphone hydrochloride [...] Start: 03-17-2020 take 2 tablets by mo [facility] every hour metoprolol succinate ER (TOPROL XL) [...] on above: Take 2 tablets by mo [facility] once daily. Per Dr. Hylton. Take 1 tablet by florin once daily. Miscellaneous Medical Supply (COMPRESSION STOCKINGS) [facility] (9 sources) Start: Miscellaneous Medical Supply (COMPRESSION STOCKINGS) [facility] Indications: Unspecified venous (peripheral) insufficiency Use as [...] disintegrating tablet 4 mg polyethylene glycol 3350 16066 mg powder for oral solution (2 sources) [...] TABS 1 tablet 3 days weekly SIMVASTATIN [id number] Jennifer Porras LPN Comment on above: Take [...] 3 days weekly as directed WARFARIN SODIUM [id number] Jennifer Porras ROSELIA Start: 05-24-2013 End: 06-28-2024 [...] DCCV on 06/04/2022; RF ablation 08/05/2022 at [facility]; Chronic obstructive pulmonary disease and bronchiectasis (20 [...] sources) Long-term current use of anticoagulant; 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] 04-25-2020 Episodic Other aftercare (13 sources) Patient encounter status; Translations: [Encounter for therapeutic drug level monitoring] 05-15-2022 Episodic Other aftercare (9 sources) group home (current) use of anticoagulants; Translations: [Long-term (current) use of anticoagulants] Onset: 01-18-2025 06-12-2022 Episodic Other aftercare (5 sources) Long-term current use of drug therapy; Translations: [Encounter for therapeutic drug level monitoring] 05-15-2022 Episodic Other aftercare (1 source) Anticoagulant effect; Translations: [group home (current) use of anticoagulants] 12-23-2024 Episodic Other [...] and exit blocks confirmed on 08/05/2022 at [facility] with Dr. Aylin turner; Residual codes; unclassified [...] Range Facility Office Visiton 01-27-2025 Follow-up visit [id number] Rich James 1955 M Date Provider Department Center 01/27/2025 [facility] CT None Family History Problem Relation Age of Onset Diabetes Father Family Status - Relation Status Age at Father Level of Service:54580 [place] POSTOP FOLLOW UP VISIT RELATED TO ORIGINAL PX Reason for Visit and Comments: Post-op [483] Normal [facility] Progress Noteon 01-27-[address] [facility]: CT SURGEONS AKR [address] [facility] [address] [facility] [address] Dept: [phone] Dept Loc: [phone] Visit type: Established patient - in person [...] M.D./George Delaney M.D. Intraoperative consultation performed at [facility], [address] [place] [address]; CLIA: [id number]; Joint Commission: [id number]; CAP: [id number] Clinical Information Solitary pulmonary nodule - R91.1 [...] 1.7 x 1 x 1 cm. 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 Disclaime (more content not included)... Normal [facility] International normalized rat io (INR) measurement by fingerstickOrdered By: Kassy Stack on 01-17-2025 INR Coag (BldC) [Relative time] 2.1 [facility] Comment on above: Critical Value > 4.0 Protime w/INR Fingerstickon 01-17-2025 INR Coag (PPP) [Relative time] 2.1 {INR} Normal [facility] Comment on above: Result Comment: Crit ical Value > 4.0 Performed By: #### L 9200.0000 #### [facility] [address] [place], [place], [id number] Protime [place]agsen 22.7 SEC High 11.7-14.9 [facility] Comment on above: Performed By: #### L 9200.0000 #### [facility] [address] [place], [address] Whole blood prothrombin time Ordered By: Kassy Stack on 01-17-2025 PT Coag (Bld) [Time] 22.7 s High 11.7-14.9 [facility] BASIC METABOLIC PANELon 12-20 Anion gap [Moles/Vol] 9 mmol/L Normal 3-13 [facility] Comment on above: Performed By: #### L AB15 ####[employer]: APOLONIA PADILLA ([phone])[facility] [place] [address] Calcium [Mass/Vol] 8.5 mg/dL Low 8.8-10.0 [facility] Comment on above: Performed By: #### L AB15 ####[employer]: APOLONIA PADILLA ([phone])[facility] [place] [address] [place] Chloride [Moles/Vol] 107 mmol/L Normal 98-107 [facility] Comment on above: Performed By: #### L AB15 ####[employer]: APOLONIA PADILLA ([id number])[facility] [place] [address] CO2 [Moles/Vol] 23 mmol/L Normal 23-31 [facility] Comment on above: Performed By: #### L AB15 ####[employer]: APOLONIA PADILLA ([id number])[facility] [place] [address] Creatinine [Mass/Vol] 0.89 mg/dL Normal 0.72-1.25 [facility] Comment on above: Performed By: #### L AB15 ####[employer]: APOLONIA PADILLA ([id number])[facility] [place] [address] GLOMERULAR FILTRATION RATE ML/MIN/1.73 SQ M.PREDICTED >90.0 Normal >60.0 [facility] Comment on above: Result Comment: Calc ulation based on the Chronic Kidney Disease Epidemiology Collaboration (CKD-EPI) equation refit without adjustment for race Performed By: #### L AB15 ####[employer]: APOLONIA PADILLA ([phone])[facility] ([facility])[address] [place] [address] Glucose [Mass/Vol] 105 mg/dL Normal 82-115 [facility] Comment on above: Performed By: #### L AB15 ####[employer]: APOLONIA PADILLA ([id number])[facility] ([facility])[address] [place] [address] Potassium [Moles/Vol] 4.2 mmol/L Normal 3.5-5.1 [facility] Comment on above: Result Comment: [facility] potassium values may be up to 0.5 mmol/L lower than serum values. Performed By: #### L AB15 ####[employer]: APOLONIA PADILLA ([id number])[facility] ([facility])[address] [place] [address] Sodium [Moles/Vol] 139 mmol/L Normal 136-145 [facility] Comment on above: Performed By: #### L AB15 ####[employer]: APOLONIA PADILLA ([phone])[facility] ([facility])[address] [place] [address] Urea nitrogen [Mass/Vol] 15 mg/dL Normal 9-23 [facility] Comment on above: Performed By: #### L AB15 ####[employer]: APOLONIA PADILLA ([id number])[facility] [place] [address] Basic metabolic 1998 panelon 01-14-2025 Anion gap [Moles/Vol] 9 mmol/L 3 - 13 mmol/L [facility] Calcium [Mass/Vol] 8.5 mg/dL Low 8.8 - 10. 0 mg/dL [facility] Chloride [Moles/Vol] 107 mmol/L 98 - 10 7 mmol/L [facility] CO2 [Moles/Vol] 23 mmol/L 23 - 31 mmol/L [facility] Creatinine [Mass/Vol] 0.89 mg/dL 0.72 - 1.25 mg/dL [facility] GFR/1.73 sq M.predicted (S/P/Bld) [Vol rate/Area] - PINF [facility] Comment on above: Calculation based on the Chronic Kidney Disease Epidemiology Collaboration (CKD-EPI) equation refit without adjustment for race Glucose [Mass/Vol] 105 mg/dL 82 - 115 mg/dL [facility] Interpretation and review of laboratory results Abnormal [facility] Potassium [Moles/Vol] 4.2 mmol/L 3.5 - 5.1 mmol/L [facility] Comment on above: Plasma potassium vinayak ues may be up to 0.5 mmol/L lower than serum values. Sodium [Moles/Vol] 139 mmol/L 136 - 145 mmol/L [facility] Urea nitrogen [Mass/Vol] 15 mg/dL 9 - 23 mg/dL [facility] CBC (HEMOGRAM)on 01-14-2025 Erythrocyte distribution width (RBC) [Ratio] 13.8 % Normal 11.5-15.0 [facility] Comment on above: Performed By: #### L [id number] ####[employer]: APOLONIA PADILLA ([id number])[address] Hematocrit (Bld) [Volume fraction] 41.4 % Normal 40.0-52.0 [facility] Comment on above: Performed By: #### L [id number] ####[employer]: APOLONIA PADILLA ([id number])[address] Hemoglobin (Bld) [Mass/Vol] 13.8 g/dL Normal 13.0-18.0 [facility] Comment on above: Performed By: #### L [id number] ####[employer]: APOLONIA PADILLA ([id number])[address] MCH (RBC) [Entitic mass] 30.9 pg Normal 26.0-34.0 [facility] Comment on above: Performed By: #### L [id number] ####[employer]: APOLONIA PADILLA ([id number])[address] MCHC 33.3 % Normal 30.5-36.0 [facility] Comment on above: Performed By: #### L [id number] ####[employer]: APOLONIA PADILLA ([id number])[address] MCV (RBC) [Entitic vol] 92.6 fL Normal 77.0-99.0 [facility] Comment on above: Performed By: #### L [id number] ####[employer]: APOLONIA PADILLA ([id number])[facility] ([facility])[address] [place] [address] Platelet mean volume (Bld) [Entitic vol] 10.1 fL Normal 9.0-12.7 [facility] Comment on above: Performed By: #### L [id number] ####[employer]: APLOONIA PADILLA ([phone])[facility] ([facility])[address] [place] [address] Platelets (Bld) [#/Vol] 166 10*3/uL Normal 140-440 [facility] Comment on above: Performed By: #### L [id number] ####[employer]: APOLONIA PADILLA ([id number])[facility])[address] [place] [address] RBC (Bld) [#/Vol] 4.47 10*6/uL Normal 4.40-5.90 [facility] Comment on above: Performed By: #### L AB294 ####[employer]: APOLONIA PADILLA ([id number])[facility] ([facility])[address] [place] [address] WBC (Bld) [#/Vol] 6.6 10*3/uL Normal 3.6-10.7 [facility] Comment on above: Performed By: #### L AB294 ####[employer]: APOLONIA PADILLA ([phone])[facility] ([facility])[address] [place] [address] CBC panel Auto (Bld)on 01-14 Erythrocyte distribution width (RBC) [Ratio] 13.8 % 11.5 - 15.0 % [facility] Hematocrit (Bld) [Volume fraction] 41.4 % 40.0 - 52.0 % [facility] Hemoglobin (Bld) [Mass/Vol] 13.8 g/dL 13.0 - 18.0 g/dL [facility] Interpretation and review of laboratory results Normal [facility] MCH (RBC) [Entitic mass] 30.9 pg 26.0 - 34.[address] [facility] MCHC (RBC) [Mass/Vol] 33.3 % 30.5 - 36.0 % [facility] MCV (RBC) [Entitic vol] 92.6 fL 77.0 - 99.[address] [facility] Platelet mean volume (Bld) [Entitic vol] 10.1 fL 9.0 - 12.[address] [facility] Platelets (Bld) [#/Vol] 166 10*3/uL 140 - 440 10*3/uL [facility] RBC (Bld) [#/Vol] 4.47 10*6/uL 4.40 - 5.9 0 10*6/uL [facility] WBC (Bld) [#/Vol] 6.6 10*3/uL 3.6 - 10.7 10*3/uL [facility] Laboratory - Coagulationon 0 01-14-2025 PT Coag (Bld) [Time] 16.7 s High 9.0 - 12.0 s [facility] Nursing Noteon 01-14-2025 Nursing Note Discharged ordered reviewed and signed no questions at this time. Normal [facility] PROTHROMBIN TIMEon INR Coag (PPP) [Relative time] 1.6 {INR} High 0.9-1.1 [facility] Comment on above: Result Comment: Hernán [...] Myocardial Infarction Performed By: #### L [id number] ####[employer]: APOLONIA PADILLA ([phone])[facility] ([facility])[address] [place] [address] PT Coag (PPP) [Time] 16.7 s High 9.0-12.0 [facility] Comment on above: Performed By: #### L AB320 ####[employer]: APOLONIA PADILLA ([id number])[facility] ([facility])[address] [place] [address] PT Coag (Bld) [Time]on 01-14 INR Coag (PPP) [Relative time] 1.6 {INR} High 0.9 - 1.1 [facility] Comment on above: Recommended Anticoag ulant [...] Interpretation and review of laboratory results Abnormal [facility] Progress Noteon 01-14-2025 Progress [facility] n Management Service ([facility]ITTANY) Inpatient Warfarin Consult HPI: Rich James is a 69 y.o. male admitted on 01/10/2025 for Solitary pulmonary nodule [R91.1] Lung nodule [R91.1]. Medical History[1] Patient is on warfarin for DVT, Afib, Protein C Deficiency and has a goal INR 2.0 - 3.0. Warfarin is currently managed by [facility]. Pt's home dose of warfarin [...] candidate 2025, staffed with Renata Hassan PharmD, [facility] Consult Service is available daily [phone] via [employer] Secure Chat. [1] Past Medical History: Diagnosis Date COPD (chronic obstructive pulmonary disease) (HCC) GERD (gastroesophageal reflux disease) Hiatal hernia 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 Obesity FIFI (obstructive sleep apnea) Paroxysmal atrial fibrillation (HCC) Protein deficiency anemia Right bundle branch block Normal [facility] XR CHEST 1 VIEWon 01-14-2025 XR CHEST 1 VIEW Patient Name: RICH JAMES : 1955 [facility]#: [id number] Exam Date/Time: 01/14/2025 08:50 Procedure: XR CHEST [...] Signed Date/Time: 01/14/2025 8:54 AM EDT Normal [facility] XR Chest Single viewon 01-14 1. Small right apica l pneumothorax, unchanged. 2. Interval right thoracostomy tube was removed since prior exam. Report Dictated on Electronically Signed By: Josafat Washington DO Electronically Signed Date/Time: 01/14/2025 8:54 AM EDT [facility] 1955 [id number] Exam Date/Time: 01/14/2025 08:50 Procedure: XR CHEST [...] thoracostomy tube was removed since prior exam. [facility] Josafat Washington DO - 01/14/2025 [facility] Name: [facility] 1955 [id number] Exam Date/Time: 01/14/2025 08:50 Procedure: XR CHEST [...] Electronically Signed Date/Time: 01/14/2025 8:[address] [facility] Radiology Study observation (narrative) [facility] XR Chest Single viewOrdered By: Josafat Washington on 01-14-2025 [facility] Work Phone: 30on 01-13-2025 30 Problem: Pain - Adul t Goal: Verbalizes/displays adequate comfort level or baseline comfort level Outcome: Progressing Problem: Safety - Adult Goal: Free from fall injury Outcome: Progressing Problem: Discharge Planning Goal: Discharge to home or other facility with appropriate resources Outcome: Progressing Normal [facility] 30 Problem: Pain - Adul t [...] and maintained or improved Outcome: Progressing Normal [facility] BASIC METABOLIC PANELon 12-20 Anion gap [Moles/Vol] 6 mmol/L Normal 3-13 [facility] Comment on above: Performed By: #### L AB15 ####[employer]: APOLONIA PADILLA ([phone])[facility])[address] [place] [address] Calcium [Mass/Vol] 8.5 mg/dL Low 8.8-10.0 [facility] Comment on above: Performed By: #### L AB15 ####[employer]: APOLONIA PADILLA ([id number])[facility] ([facility])[address] [place] [address] [place] Chloride [Moles/Vol] 105 mmol/L Normal 98-107 [facility] Comment on above: Performed By: #### L AB15 ####[employer]: APOLONIA PADILLA ([id number])[facility] ([facility])[address] [place] [address] [place] CO2 [Moles/Vol] 25 mmol/L Normal 23-31 [facility] Comment on above: Performed By: #### L AB15 ####[employer]: APOLONIA PADILLA ([phone])[facility] ([facility])[address] [place] [address] Creatinine [Mass/Vol] 1.00 mg/dL Normal 0.72-1.25 [facility] Comment on above: Performed By: #### L AB15 ####[employer]: APOLONIA PADILLA ([id number])[facility])[address] [place] [address] GLOMERULAR FILTRATION RATE ML/MIN/1.73 SQ M.PREDICTED 82.0 mL/min/1.73m*2 Normal >60.0 [facility] Comment on above: Result Comment: Calc ulation based on the Chronic Kidney Disease Epidemiology Collaboration (CKD-EPI) equation refit without adjustment for race Performed By: #### L AB15 ####[employer]: APOLONIA PADILLA ([phone])[address] Glucose [Mass/Vol] 101 mg/dL Normal 82-115 [facility] Comment on above: Performed By: #### L AB15 ####[employer]: APOLONIA [id number])[address] Potassium [Moles/Vol] 4.6 mmol/L Normal 3.5-5.1 [facility] Comment on above: Result Comment: [facility] potassium values may be up to 0.5 mmol/L lower than serum values. Performed By: #### L AB15 ####[employer]: APOLONIA PADILLA ([id number])[address] Sodium [Moles/Vol] 136 mmol/L Normal 136-145 [facility] Comment on above: Performed By: #### L AB15 ####[employer]: APOLONIA PADILLA ([id number])[address] Urea nitrogen [Mass/Vol] 21 mg/dL Normal 9-23 [facility] Comment on above: Performed By: #### L AB15 ####[employer]: APOLONIA [id number])[address] Basic metabolic 1998 panelon 01-13-2025 Anion gap [Moles/Vol] 6 mmol/L 3 - 13 mmol/L [facility] Calcium [Mass/Vol] 8.5 mg/dL Low 8.8 - 10. 0 mg/dL [facility] Chloride [Moles/Vol] 105 mmol/L 98 - 10 7 mmol/L [facility] CO2 [Moles/Vol] 25 mmol/L 23 - 31 mmol/L [facility] Creatinine [Mass/Vol] 1 mg/dL 0.72 - 1.25 mg/dL [facility] GFR/1.73 sq M.predicted (S/P/Bld) [Vol rate/Area] 82 mL/min - PINF [facility] Comment on above: Calculation based on the Chronic Kidney Disease Epidemiology Collaboration (CKD-EPI) equation refit without adjustment for race Glucose [Mass/Vol] 101 mg/dL 82 - 115 mg/dL [facility] Interpretation and review of laboratory results Abnormal [facility] Potassium [Moles/Vol] 4.6 mmol/L 3.5 - 5.1 mmol/L [facility] Comment on above: Plasma potassium vinayak ues may be up to 0.5 mmol/L lower than serum values. Sodium [Moles/Vol] 136 mmol/L 136 - 145 mmol/L [facility] Urea nitrogen [Mass/Vol] 21 mg/dL 9 - 23 mg/dL [facility] CBC (HEMOGRAM)on 01-13-2025 Erythrocyte distribution width (RBC) [Ratio] 14.2 % Normal 11.5-15.0 [facility] Comment on above: Performed By: #### L [id number] ####[employer]: APOLONIA PADILLA ([phone])[address] Hematocrit (Bld) [Volume fraction] 43.4 % Normal 40.0-52.0 [facility] Comment on above: Performed By: #### L [id number] ####[employer]: APOLONIA PADILLA ([phone])[address] Hemoglobin (Bld) [Mass/Vol] 14.3 g/dL Normal 13.0-18.0 [facility] Comment on above: Performed By: #### L [id number] ####[employer]: APOLONIA PADILLA ([phone])[facility])[address] [place] [address] MCH (RBC) [Entitic mass] 31.0 pg Normal 26.0-34.0 [facility] Comment on above: Performed By: #### L [id number] ####[employer]: APOLONIA PADILLA ([phone])[facility])[address] [place] [address] MCHC 32.9 % Normal 30.5-36.0 [facility] Comment on above: Performed By: #### L [id number] ####[employer]: APOLONIA PADILLA ([phone])[facility])[address] [place] [address] MCV (RBC) [Entitic vol] 94.1 fL Normal 77.0-99.0 [facility] Comment on above: Performed By: #### L [id number] ####[employer]: APOLONIA PADILLA ([phone])[facility])[address] [place] [address] Platelet mean volume (Bld) [Entitic vol] 9.7 fL Normal 9.0-12.7 [facility] Comment on above: Performed By: #### L [id number] ####[employer]: APOLONIA PADILLA ([phone])[facility])[address] [place] [address] Platelets (Bld) [#/Vol] 165 10*3/uL Normal 140-440 [facility] Comment on above: Performed By: #### L [id number] ####[employer]: APOLONIA PADILLA ([phone])[facility])[address] [place] [address] RBC (Bld) [#/Vol] 4.61 10*6/uL Normal 4.40-5.90 [facility] Comment on above: Performed By: #### L [id number] ####[employer]: APOLONIA PADILLA ([phone])[facility] ([facility])[address] [place] [address] WBC (Bld) [#/Vol] 7.7 10*3/uL Normal 3.6-10.7 [facility] Comment on above: Performed By: #### L [id number] ####[employer]: APOLONIA PADILLA ([phone])[facility] ([facility])[address] [place] [address] CBC panel Auto (Bld)on 01-13 Erythrocyte distribution width (RBC) [Ratio] 14.2 % 11.5 - 15.0 % [facility] Hematocrit (Bld) [Volume fraction] 43.4 % 40.0 - 52.0 % [facility] Hemoglobin (Bld) [Mass/Vol] 14.3 g/dL 13.0 - 18.0 g/dL [facility] Interpretation and review of laboratory results Normal [facility] MCH (RBC) [Entitic mass] 31 pg 26.0 - 34.[address] [facility] MCHC (RBC) [Mass/Vol] 32.9 % 30.5 - 36.0 % [facility] MCV (RBC) [Entitic vol] 94.1 fL 77.0 - 99.[address] [facility] Platelet mean volume (Bld) [Entitic vol] 9.7 fL 9.0 - 12.[address] [facility] Platelets (Bld) [#/Vol] 165 10*3/uL 140 - 440 10*3/uL [facility] RBC (Bld) [#/Vol] 4.61 10*6/uL 4.40 - 5.9 0 10*6/uL [facility] WBC (Bld) [#/Vol] 7.7 10*3/uL 3.6 - 10.7 10*3/uL [facility] Laboratory - Coagulationon 0 01-13-2025 PT Coag (Bld) [Time] 11.8 s 9.0 - 12.0 s [facility] PROTHROMBIN TIMEon INR Coag (PPP) [Relative time] 1.1 {INR} Normal 0.9-1.1 [facility] Comment on above: Result Comment: Hernán [...] Infarction Performed By: #### L [id number] #### [employer]: APOLONIA PADILLA ([phone]) [facility] ([facility]) [address] [place] [address] PT Coag (PPP) [Time] 11.8 s Normal 9.0-12.0 [facility] Comment on above: Performed By: #### Jasmin AB320 #### [employer]: APOLONIA PADILLA ([phone]) [facility] ([facility]) [address] [place] [address] PT Coag (Bld) [Time]on 01-13 INR Coag (PPP) [Relative time] 1.1 {INR} 0.9 - 1.1 [facility] Comment on above: Recommended Anticoag ulant [...] Interpretation and review of laboratory results Normal [facility] Progress Noteon 01-13-2025 Progress Note Reviewed with thuan diez d/c CT Chest tube assessed: no air leak, subcutaneous air noted. Chest tube removed without difficulty and dressing applied. Patient tolerated well. Patient and nurse educated on possible complications to observe for. Will continue to monitor. Follow up CXR in am unless new symptoms of respiratory distress Normal [facility] Progress Note -- Attestation signed by Eva Estevez PT at 01/13/2025 3:54 PM Goals met, OK to discharge from PT standpoint. Recommend use of mobility aides for encouraging walking throughout LOS. PHYSICAL THERAPY [facility] Treatment Note Name/MRN: Rich James ([id number]) Date of : 1955 Age: 69 y.o. [facility] Discharge Recommendation: Home with assist PRN [...] (GT/Ther Ex) Maile Blount, SPTA Ursula Thomas, LAP CUTTER Normal [facility] Progress Note [facility] Management [facility] ([facility]) Inpatient Warfarin Consult HPI: Rich James is a 69 y.o. male admitted on 01/10/2025 for Solitary pulmonary nodule [R91.1] Lung nodule [R91.1]. Medical History[1] Patient is on warfarin for DVT, Afib, Protein C Deficiency and has a goal INR 2.0 - 3.0. Warfarin is currently managed by [facility]. Pt's home dose of warfarin [...] candidate 2025, staffed with Renata Hassan PharmD, [facility] Consult Service is available daily [phone] via [employer]. [1] Past Medical History: Diagnosis Date COPD (chronic obstructive pulmonary disease) (HCC) GERD (gastroesophageal reflux disease) Hiatal hernia 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 Obesity FIFI (obstructive sleep apnea) Paroxysmal atrial fibrillation (HCC) Protein deficiency anemia Right bundle branch block Normal [facility] Progress Note -- Attestation signed by Sarah Luna DO at 01/13/2025 2:42 PM (Updated) CARDIOTHORACIC SURGERY DOS: 01/13/25 POD # 3 VATS RUL wedge; MLND I personally performed a [id number] diagnostic evaluation on this patient I agree [...] of 20 minutes were spent between the [id number]-[id number] encounter, physical exam, reviewing the medical history, coordinating care, counseling/educating the patient, ordering medications/test/proce dures, interpreting results and documenting in the patient's record on the day of the encounter. The patient was seen and examined independently and relevant data reviewed by myself. Savanah Luna DO [facility] Cardiothoracic Surgery Cardiothoracic Surgery Progress [...] of day developed with Cardiothoracic Surgery Surgeon [facility] XR CHEST 1 VIEWon 01-13-2025 XR CHEST [...] Electronically Signed Date/Time: 01/13/2025 2:21 PM EDT [facility] XR CHEST 1 VIEW Patient Name: RICH [...] Electronically Signed Date/Time: 01/13/2025 8:18 AM EDT [facility] XR Chest Single viewon 01-13 [...] Electronically Signed Date/Time: 01/13/2025 2:21 PM EDT [facility] Patient Name: RICH JAMES : 1955 Exam Date/Time: 01/13/2025 12:41 Procedure: XR CHEST 1 VIEW Ordering Provider: MANUEL ANDREW Reason For Exam: follow up CT clamp trial CHEST - PORTABLE: CLINICAL INDICATION: follow up CT clamp trial TECHNIQUE: Portable AP COMPARISON: Radiographs earlier same day at 7:39 AM. [facility] Cheyenne Serna MD - 01/13/2025 [...] Electronically Signed Date/Time: 01/13/2025 2:21 PM EDT [facility] Radiology Study observation (narrative) [facility] 1. Right-sided chest tube with small apical pneumothorax. Report Dictated on Electronically Signed By: Amilcar Saha MD Electronically Signed Date/Time: 01/13/2025 8:18 AM EDT [facility] Patient Name: RICH JAMES : [...] remains clear. The heart size is normal. [facility] Amilcar Saha MD - 01/13/2025 [...] Electronically Signed Date/Time: 01/13/2025 8:[address] [facility] Radiology Study observation (narrative) [facility] XR Chest Single viewOrdered By: Amilcar Saha on 01-13-2025 [facility] Work Phone: 30on 01-12-2025 30 Problem: Pain - Adul t Goal: Verbalizes/displays adequate comfort level or baseline comfort level Outcome: Progressing Problem: Safety - Adult Goal: Free from fall injury Outcome: Progressing Problem: Discharge Planning Goal: Discharge to home or other facility with appropriate resources Outcome: Progressing Normal [facility] 30 Problem: Pain - Adul t [...] and maintained or improved Outcome: Progressing Normal [facility] 30 Problem: Pain - Adul t [...] injury: Instruct family/caregiver on patient safety Normal [facility] BASIC METABOLIC PANELon 12-20 Anion gap [Moles/Vol] 8 mmol/L Normal 3-13 [facility] Comment on above: Performed By: #### L AB15 ####[employer]: APOLONIA PADILLA ([phone])[facility] Monitor[address] Calcium [Mass/Vol] 8.3 mg/dL Low 8.8-10.0 [facility] Comment on above: Performed By: #### L AB15 ####[employer]: APOLONIA PADILLA ([phone])[facility] ([facility])[address] [place] [address] Chloride [Moles/Vol] 107 mmol/L Normal 98-107 [facility] Comment on above: Performed By: #### L AB15 ####[employer]: APOLONIA PADILLA ([phone])[facility] ([facility])[address] [place] [address] CO2 [Moles/Vol] 24 mmol/L Normal 23-31 [facility] Comment on above: Performed By: #### L AB15 ####[employer]: APOLONIA PADILLA ([phone])[facility] ([facility])[address] [place] [address] Creatinine [Mass/Vol] 0.94 mg/dL Normal 0.72-1.25 [facility] Comment on above: Performed By: #### L AB15 ####[employer]: APOLONIA PADILLA ([phone])[facility] ([facility])[address] [place] [address] GLOMERULAR FILTRATION RATE ML/MIN/1.73 SQ M.PREDICTED 88.3 mL/min/1.73m*2 Normal >60.0 [facility] Comment on above: Result Comment: Calc ulation based on the Chronic Kidney Disease Epidemiology Collaboration (CKD-EPI) equation refit without adjustment for race Performed By: #### L AB15 ####[employer]: APOLONIA PADILLA ([phone])[facility] ([facility])[address] [place] [address] Glucose [Mass/Vol] 93 mg/dL Normal 82-115 [facility] Comment on above: Performed By: #### L AB15 ####[employer]: APOLONIA PADILLA ([phone])[facility])[address] [place] [address] Potassium [Moles/Vol] 4.0 mmol/L Normal 3.5-5.1 [facility] Comment on above: Result Comment: [facility] potassium values may be up to 0.5 mmol/L lower than serum values. Performed By: #### L AB15 ####[employer]: APOLONIA PADILLA ([phone])[facility])[address] [place] [address] Sodium [Moles/Vol] 139 mmol/L Normal 136-145 [facility] Comment on above: Performed By: #### L AB15 ####[employer]: APOLONIA PADILLA ([phone])[facility] ([facility])[address] [place] [address] Urea nitrogen [Mass/Vol] 22 mg/dL Normal 9-23 [facility] Comment on above: Performed By: #### L AB15 ####[employer]: APOLONIA PADILLA ([phone])[facility] ([facility])[address] [place] [address] Basic metabolic 1998 panelon 01-12-2025 Anion gap [Moles/Vol] 8 mmol/L 3 - 13 mmol/L [facility] Calcium [Mass/Vol] 8.3 mg/dL Low 8.8 - 10. 0 mg/dL [facility] Chloride [Moles/Vol] 107 mmol/L 98 - 10 7 mmol/L [facility] CO2 [Moles/Vol] 24 mmol/L 23 - 31 mmol/L [facility] Creatinine [Mass/Vol] 0.94 mg/dL 0.72 - 1.25 mg/dL [facility] GFR/1.73 sq M.predicted (S/P/Bld) [Vol rate/Area] 88.3 mL/min - PINF [facility] Comment on above: Calculation based on the Chronic Kidney Disease Epidemiology Collaboration (CKD-EPI) equation refit without adjustment for race Glucose [Mass/Vol] 93 mg/dL 82 - 115 mg/dL [facility] Interpretation and review of laboratory results Abnormal [facility] Potassium [Moles/Vol] 4 mmol/L 3.5 - 5.1 mmol/L [facility] Comment on above: Plasma potassium vinayak ues may be up to 0.5 mmol/L lower than serum values. Sodium [Moles/Vol] 139 mmol/L 136 - 145 mmol/L [facility] Urea nitrogen [Mass/Vol] 22 mg/dL 9 - 23 mg/dL [facility] CBC (HEMOGRAM)on 01-12-2025 Erythrocyte distribution width (RBC) [Ratio] 14.0 % Normal 11.5-15.0 [facility] Comment on above: Performed By: #### L [id number] ####[employer]: APOLONIA PADILLA ([id number])[address] Hematocrit (Bld) [Volume fraction] 41.0 % Normal 40.0-52.0 [facility] Comment on above: Performed By: #### L [id number] ####[employer]: APOLONIA PADILLA ([phone])[facility])[address] [place] [address] Hemoglobin (Bld) [Mass/Vol] 13.7 g/dL Normal 13.0-18.0 [facility] Comment on above: Performed By: #### L [id number] ####[employer]: APOLONIA PADILLA ([id number])[address] MCH (RBC) [Entitic mass] 31.1 pg Normal 26.0-34.0 [facility] Comment on above: Performed By: #### L [id number] ####[employer]: APOLONIA PADILLA ([id number])[address] MCHC 33.4 % Normal 30.5-36.0 [facility] Comment on above: Performed By: #### L [id number] ####[employer]: APOLONIA PADILLA ([id number])[address] MCV (RBC) [Entitic vol] 93.0 fL Normal 77.0-99.0 [facility] Comment on above: Performed By: #### L [id number] ####[employer]: APOLONIA PADILLA ([id number])[address] Platelet mean volume (Bld) [Entitic vol] 10.7 fL Normal 9.0-12.7 [facility] Comment on above: Performed By: #### L [id number] ####[employer]: APOLONIA PADILLA ([phone])[facility] ([facility])[address] [place] [address] Platelets (Bld) [#/Vol] 164 10*3/uL Normal 140-440 [facility] Comment on above: Performed By: #### L [id number] ####[employer]: APOLONIA PADILLA ([phone])[facility])[address] [place] [address] RBC (Bld) [#/Vol] 4.41 10*6/uL Normal 4.40-5.90 [facility] Comment on above: Performed By: #### L [id number] ####[employer]: APOLONIA PADILLA ([phone])[facility])[address] [place] [address] WBC (Bld) [#/Vol] 8.8 10*3/uL Normal 3.6-10.7 [facility] Comment on above: Performed By: #### L [id number] ####[employer]: APOLONIA PADILLA ([id number])[facility] ([facility])[address] [place] [address] CBC panel Auto (Bld)on 01-12 Erythrocyte distribution width (RBC) [Ratio] 14 % 11.5 - 15.0 % [facility] Hematocrit (Bld) [Volume fraction] 41 % 40.0 - 52.0 % [facility] Hemoglobin (Bld) [Mass/Vol] 13.7 g/dL 13.0 - 18.0 g/dL [facility] Interpretation and review of laboratory results Normal [facility] MCH (RBC) [Entitic mass] 31.1 pg 26.0 - 34.[address] [facility] MCHC (RBC) [Mass/Vol] 33.4 % 30.5 - 36.0 % [facility] MCV (RBC) [Entitic vol] 93 fL 77.0 - 99.[address] [facility] Platelet mean volume (Bld) [Entitic vol] 10.7 fL 9.0 - 12.[address] [facility] Platelets (Bld) [#/Vol] 164 10*3/uL 140 - 440 10*3/uL [facility] RBC (Bld) [#/Vol] 4.41 10*6/uL 4.40 - 5.9 0 10*6/uL [facility] WBC (Bld) [#/Vol] 8.8 10*3/uL 3.6 - 10.7 10*3/uL [facility] Laboratory - Coagulationon 0 01-12-2025 PT Coag (Bld) [Time] 10.5 s 9.0 - 12.0 s [facility] PROTHROMBIN TIMEon INR Coag (PPP) [Relative time] 1.0 {INR} Normal 0.9-1.1 [facility] Comment on above: Result Comment: Ehrnán mmended Anticoagulant Therapy: SEE BELOW ----- INR [...] Myocardial Infarction Performed By: #### Jasmin [id number] ####[employer]: APOLONIA PADILLA ([phone])[address] PT Coag (PPP) [Time] 10.5 s Normal 9.0-12.0 [facility] Comment on above: Performed By: #### Jasmin AB320 ####[employer]: APOLONIA PADILLA ([id number])[address] PT Coag (Bld) [Time]on 01-12 INR Coag (PPP) [Relative time] 1 {INR} 0.9 - 1.1 [facility] Comment on above: Recommended Anticoag ulant [...] Interpretation and review of laboratory results Normal [facility] Progress Noteon 01-12-2025 Progress Note Patient recently brandan t smoking. Accepting of handout with contact information for help and support if needed. Normal [facility] Progress Note Nutrition rescreen completed. Chart reviewed. Patient to be monitored and followed by the diet development technician. DEBBIE Gonzalez Normal [facility] Progress Note PHYSICAL THERAPY [facility] Treatment Note Name/MRN: Rich James ([id number]) Date of : 1955 Age: 69 y.o. [facility] Discharge Recommendation: Home with assist PRN [...] Code Treatment Minutes: (gt-fa) Sofi Valdivia PTA [facility] Progress Note OCCUPATIONAL THERAPY [facility] Name/MRN: Rich James ([id number]) Date: 01/12/2025 OT orders received and chart reviewed. Attempting OT eval, pt working with PT. Will continue to follow as schedule permits. Tawana Flores, OTR/L Normal [facility] Progress Note [facility] An[facility] Management Service ([facility]) Inpatient [...] PharmD BRITTANY Consult Service is available daily [phone] via [employer]. [1] Past Medical History: Diagnosis Date COPD (chronic obstructive pulmonary disease) (HCC) GERD (gastroesophageal reflux disease) Hiatal hernia 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 Obesity FIFI (obstructive sleep apnea) Paroxysmal atrial fibrillation (HCC) Protein deficiency anemia Right bundle branch block Normal [facility] XR CHEST 1 VIEWon 01-12-2025 XR CHEST 1 VIEW [facility]: [facility] 1955 [id number] Exam Date/Time: 01/12/2025 06:17 Procedure: XR CHEST [...] Electronically Signed Date/Time: 01/12/2025 7:19 AM EDT [facility] XR Chest Single viewon 01-12 [...] Electronically Signed Date/Time: 01/12/2025 7:19 AM EDT [facility] Patient Name: RICH JAMES : 1955 Exam Date/Time: 01/12/2025 06:17 Procedure: XR CHEST 1 VIEW Ordering Provider: LUNA RICHARD Reason For Exam: Chest tube placement CHEST - PORTABLE: CLINICAL INDICATION: Chest tube placement. TECHNIQUE: Portable AP COMPARISON: One day ago. [facility] Cheyenne Serna MD - 01/12/2025 [...] Electronically Signed Date/Time: 01/12/2025 7:19 AM EDT [facility] Radiology Study observation (narrative) [facility] 30on 01-11-2025 30 Problem: Pain - [...] learning needs (meds, wound care, etc) Normal [facility] [id number] 01-11-2025 [id number] Discussed Home Care Services available to patient [...] any other needs arise prior to DC. [facility] BASIC METABOLIC PANELon - Anion gap [Moles/Vol] 7 mmol/L Normal 3-13 [facility] Comment on above: Performed By: #### L AB15 ####[employer]: APOLONIA PADILLA ([phone])[facility] ([facility])[address] [place] [address] Calcium [Mass/Vol] 8.1 mg/dL Low 8.8-10.0 [facility] Comment on above: Performed By: #### L AB15 ####[employer]: APOLONIA PADILLA ([phone])[facility] [place] [address] Chloride [Moles/Vol] 107 mmol/L Normal 98-107 [facility] Comment on above: Performed By: #### L AB15 ####[employer]: APOLONIA PADILLA ([phone])[facility] ([facility])[address] [place] [address] CO2 [Moles/Vol] 22 mmol/L Low 23-31 [facility] Comment on above: Performed By: #### L AB15 ####[employer]: APOLONIA PADILLA ([id number])[facility] ([facility])[address] [place] [address] Creatinine [Mass/Vol] 0.89 mg/dL Normal 0.72-1.25 [facility] Comment on above: Performed By: #### L AB15 ####[employer]: APOLONIA PADILLA ([phone])[facility] ([facility])[address] [place] [address] GLOMERULAR FILTRATION RATE ML/MIN/1.73 SQ M.PREDICTED >90.0 Normal >60.0 [facility] Comment on above: Result Comment: Calc ulation based on the Chronic Kidney Disease Epidemiology Collaboration (CKD-EPI) equation refit without adjustment for race Performed By: #### L AB15 ####[employer]: APOLONIA PADILLA ([id number])[facility] ([facility])[address] [place] [address] Glucose [Mass/Vol] 149 mg/dL High 82-115 [facility] Comment on above: Performed By: #### L AB15 ####[employer]: APOLONIA PADILLA ([phone])[facility] ([facility])[address] [place] [address] Potassium [Moles/Vol] 4.3 mmol/L Normal 3.5-5.1 [facility] Comment on above: Result Comment: [facility] potassium values may be up to 0.5 mmol/L lower than serum values. Performed By: #### L AB15 ####[employer]: APOLONIA PADILLA ([phone])[facility] [facility] [place] [address] Sodium [Moles/Vol] 136 mmol/L Normal 136-145 [facility] Comment on above: Performed By: #### L AB15 ####[employer]: APOLONIA PADILLA ([phone])[facility] [place] [address] Urea nitrogen [Mass/Vol] 16 mg/dL Normal 9-23 [facility] Comment on above: Performed By: #### L AB15 ####[employer]: APOLONIA PADILLA ([phone])[facility] [place] [address] Basic metabolic 1998 panelon 01-11-2025 Anion gap [Moles/Vol] 7 mmol/L 3 - 13 mmol/L [facility] Calcium [Mass/Vol] 8.1 mg/dL Low 8.8 - 10. 0 mg/dL [facility] Chloride [Moles/Vol] 107 mmol/L 98 - 10 7 mmol/L [facility] CO2 [Moles/Vol] 22 mmol/L Low 23 - 31 mmol/L [facility] Creatinine [Mass/Vol] 0.89 mg/dL 0.72 - 1.25 mg/dL [facility] GFR/1.73 sq M.predicted (S/P/Bld) [Vol rate/Area] - PINF [facility] Comment on above: Calculation based on the Chronic Kidney Disease Epidemiology Collaboration (CKD-EPI) equation refit without adjustment for race Glucose [Mass/Vol] 149 mg/dL High 82 - 115 mg/dL [facility] Interpretation and review of laboratory results Abnormal [facility] Potassium [Moles/Vol] 4.3 mmol/L 3.5 - 5.1 mmol/L [facility] Comment on above: Plasma potassium vinayak ues may be up to 0.5 mmol/L lower than serum values. Sodium [Moles/Vol] 136 mmol/L 136 - 145 mmol/L [facility] Urea nitrogen [Mass/Vol] 16 mg/dL 9 - 23 mg/dL [facility] CBC (HEMOGRAM)on 01-11-2025 Erythrocyte distribution width (RBC) [Ratio] 13.5 % Normal 11.5-15.0 [facility] Comment on above: Performed By: #### L [id number] ####[employer]: APOLONIA PADILLA ([phone])[facility])[address] [place] [address] Hematocrit (Bld) [Volume fraction] 39.2 % Low 40.0-52.0 [facility] Comment on above: Performed By: #### L [id number] ####[employer]: APOLONIA PADILLA ([phone])[facility])[address] [place] [address] Hemoglobin (Bld) [Mass/Vol] 13.2 g/dL Normal 13.0-18.0 [facility] Comment on above: Performed By: #### L [id number] ####[employer]: APOLONIA PADILLA ([phone])[facility])[address] [place] [address] MCH (RBC) [Entitic mass] 30.9 pg Normal 26.0-34.0 [facility] Comment on above: Performed By: #### L [id number] ####[employer]: APOLONIA PADILLA ([phone])[facility])[address] [place] [address] MCHC 33.7 % Normal 30.5-36.0 [facility] Comment on above: Performed By: #### L [id number] ####[employer]: APOLONIA PADILLA ([phone])[facility])[address] [place] [address] MCV (RBC) [Entitic vol] 91.8 fL Normal 77.0-99.0 [facility] Comment on above: Performed By: #### L [id number] ####[employer]: APOLONIA PADILLA ([phone])[facility])[address] [place] [address] Platelet mean volume (Bld) [Entitic vol] 9.7 fL Normal 9.0-12.7 [facility] Comment on above: Performed By: #### L [id number] ####[employer]: APOLONIA PADILLA ([phone])[facility])[address] [place] [address] Platelets (Bld) [#/Vol] 147 10*3/uL Normal 140-440 [facility] Comment on above: Performed By: #### L [id number] ####[employer]: APOLONIA PADILLA ([phone])[facility])[address] [place] [address] RBC (Bld) [#/Vol] 4.27 10*6/uL Low 4.40-5.90 [facility] Comment on above: Performed By: #### L [id number] ####[employer]: APOLONIA PADILLA ([phone])[facility])[address] [place] [address] WBC (Bld) [#/Vol] 9.6 10*3/uL Normal 3.6-10.7 [facility] Comment on above: Performed By: #### L [id number] ####[employer]: APOLONIA PADILLA ([phone])[facility])[address] [place] [address] CBC panel Auto (Bld)on 01-11 Erythrocyte distribution width (RBC) [Ratio] 13.5 % 11.5 - 15.0 % [facility] Hematocrit (Bld) [Volume fraction] 39.2 % Low 40.0 - 52.0 % [facility] Hemoglobin (Bld) [Mass/Vol] 13.2 g/dL 13.0 - 18.0 g/dL [facility] Interpretation and review of laboratory results Abnormal [facility] MCH (RBC) [Entitic mass] 30.9 pg 26.0 - 34.[address] [facility] MCHC (RBC) [Mass/Vol] 33.7 % 30.5 - 36.0 % [facility] MCV (RBC) [Entitic vol] 91.8 fL 77.0 - 99.[address] [facility] Platelet mean volume (Bld) [Entitic vol] 9.7 fL 9.0 - 12.[address] [facility] Platelets (Bld) [#/Vol] 147 10*3/uL 140 - 440 10*3/uL [facility] RBC (Bld) [#/Vol] 4.27 10*6/uL Low 4.40 - 5.9 0 10*6/uL [facility] WBC (Bld) [#/Vol] 9.6 10*3/uL 3.6 - 10.7 10*3/uL [facility] No Panel InformationOrdered By: Colton Cooper on 01-11-2025 Case Report Surgical Pathology Case: [id number] Authorizing Provider: Sarah Luna DO Collected: 01/10/2025 0856 Ordering Location: [facility] MA[facility] OR Received: 01/10/2025 1200 Pathologist: Colton Cooper MD Specimens: A) - Lung, Right Upper Lobe, RIGHT UPPER LOBE WEDGE B) - Lymph Node, LEVEL 9R LYMPH NODE C) - Lymph Node, LEVEL 7 LYMPH NODE D) - Lymph Node, LEVEL 4R LYMPH NODE [facility] Work Phone: Clinical Information j1mwrTKfTJWsrIXyNMC wMV acelPgNJQiwFZgM6Ihkpua UYuoXZ4hOY4azKyndPXkeP EcPDXdHgUiu9uxy559pGSf i3kuAZCDHAzvPMBERTx9gR bvB77iy8R7ZotsM3niLKCq WAztTKFqTQheiPFaOPf5ZL BhcGVydzEyMjQwXHBhcGVy wMT7HYDkPR3mbyphZSxsSZ csZDRlodC1YPLbsVMvP9Bb BPZoTG8zpczwUVI9XNdjNP AmWCG9SnBiMBRtw3Djsmm2 MjBccGFyZFxwbGFpblxmcz XeSGQeBTNEy4svoJCnmXPy sVgzn95ohervft0ygSxaIA 0yQeoiQzAcN6uLCU7vYR9S PF7eX9WbGFCuuSDpwA== [facility] Work Phone: Gross Description c4wfwDArTAPxtAWrJBRr MV oekcHiRLMduDKgV2Msonek SPxyHC9kRC9riMsiqGHxbT QeHBEmJzCyz1qdf889sGOj t8xnRQVHMIkpRZEDNDn5kX hyA70uz3T3LyhsK08ftLOm UFE1VKQcYRNnsXAmOCJhAL Q4EVVerRFvZ9srXMDjRP6b lusbCBolBXawDWPshES9IJ FxwPFdI7PdRTWkWCjuVJIy djl0GsUlPg9rfLOpsQwkJM xwYXJkXHBsYWluXGZzMjAg AW7enQIoZZHqI5OwetToLB YoFPUiVZQaeyQhgx25WE9s x0ZgeRrkssVzeTHlyt4qhD MgbGFiZWxlZCAicmlnaHQg gUZfSEMdnE8rRRV3MVLeVP KeiQPqUGD2VqqebUY6KMzz GG27UAZpWVX3hmTiFU1zFG YoaIJfNtB4SZWwTZ8fDAWd LEQxnAL0fnVkaLVmkT0cZI EtQisiK7soKARGmSBuk4Pz cGxlIGxpbmUgaXMgcmVtb3 ZlZCBhbmQgdGhlIHVuZGVy dPycvirbaOLiDJ7otMtgHG BpcyBpbmtlZCBibHVlLiAg BAkmfrKkyRFuPHE4nIo4ZK 7rZLIdrm4bbUpxNILhAADs iYEnFN91ZNgaDNF4QESnT9 0nPTLHBLCdfQUir3RuyTC8 tMTqDFWcvbFjh15wvLCfz4 VvrRv4tUYlGKDpgrHgmr16 FG9kc7EkaIrlafWprJLpfs 9zaXMuICBUaGUgcmVtYWlu KQPpJN1qBYPeNOJxyFRejZ 1eulIlseEiTRE1jR6vJOIf ywM4BLNenF7oAMBtIOTzQJ dpdGggZGlsYXRlZCBhaXJz cXBeCQThVO3bGKJpW1KwDJ ByAbVwh5ntAcXcCR0iEFJg eFNls42txRO9TZdsPERjLz zqBJWbuCNoisNoxfHcg3Xy l7Doxs3uCGBrQVLxHKgnuh a8gQMuLcF1lKXfz0LbA6Ja d9c6cDC6bMMgufVqKPtnJD WqLP8vKTWvNXLwMJVtYPxg UAA1Dx8ueHPvOQHnksToJP PxOGZtMDT1HJWem5c3dHHu VMEnXBPkkTTjzy27QW6hr4 VgdKkrgbS0cIYfqIIhKnYh sttdb0YxzIx3wHQbOOxqXN Lza9VvmAXvOXMxMuOqrTUg FEMmvlZHZft1YDUyHyQrDR v0ZGTvvW8jDr6aaZLsdS6h cAOrPHtcYCDnzES3APmhCT NomDleyMunyb9eGWCiaGAi YSAwLjcgeCAwLjQgeCAwLj InF09fsmCyQLHwzdPed3G2 HGSqz8M5VZWsbjZmhJPrvJ T4fFR4RClhWVA0Yq6iuFOj XRXzfjJifvYuT3Gnw6L1dB UuIFxwYXJccGFyIEMuXHRh YiBSZWNlaXZlZCBpbiBmb3 JtYWxpbiBsYWJlbGVkICJs TSCgwAU3DBu4vYKxWD5jOS DjYDwbOCQfSh4mKVsfQX68 VSfwUA87OBPwJHRgTM1lhw 08bsRiV2usCChgxTYfy8Ut w51nxSL4cFJjiQLkD98ag0 erxSCneSH7bRElZJOfBRgc BN01EWFnkAxyrGcxac5cHW 4gIFRoZSBsYXJnZXIgcGll D5NkLGNnMKShKRP7cB5rJS ApKDFWiHFng6DbV1jhUB9c oWLwx4HrnBc1oSQkHWZixV jsACc4LVsaZBU1yeXmTWSn ALF1RHExDChwYWVjmLMqLO QuXHRhYiBSZWNlaXZlZCBp lpMun7TpPHsvzrOuGJOhcD KvXATlRAPtfRN1BzIxdI5w nBIvk2FyRnUljwJiRNEaYI T0GYGtKnU1OOPzWsNvaCId T9bbSRmsiZAwm5HfmBVsoF 46JQPpxksyHvlcew8bHZB3 bJ5jyKFvFGLbfzvmh35nkO J1gXVwjLUwKQJDsQObx1Iv D0djVE3fiCPid1DawHc7fA WvQRabPJ3bXTHdLXBuXGN5 DI0vYRGost3= [facility] Work Phone: Pathology report final diagnosis Narrative o2mekKUfFJBawLDmZAJdPZ gaijCrYOHfrTJkP3Vapnqq QSnjRM3gXL3sxXisxZNgfF JdSBUrJiOac0buz427nXJf b2vcPUNIIMccRVBJNCz0zO xnU59qg1D8OkifO95czCBb LXS5FPFzCQWftVJdPPFaYR Z3YLPmfKNdP9ixMAIxPN9h ghsnIGgfZKowNGBtnYX5MV HmtSHjK4PgFPObGBjbRGJv evo9UyDnTz7vpZAanSksFC xwYXJkXHBsYWluXGZzMjBc bDHqTTXmSHFFRF3HHYOYNU aTNGSQOAVLKhTLJ4IXDRNP SJNYYVMPJTZCR5OLC032DL YbjopzjqImp3xgXZCZRCWa K8YyN0MCHY8LFgeJXmARJm HCHC6MJCUkeINoHFJaVZIn oTMfLwNSDGGOHjZiKi3ELK 8LNDwUVlLRK2ogXP3ZHBlK DM4OJO6ZPWAklFMjPNDngq VLEqJoIIuOJXmsFj6HYClk TOXZAPnyJGX6IGMuvzozhb Fxs9hxDZ3TV3BLVGVTHXHp iplkCLUtNs7wXDrORMQYTV 1YBPVjKMtINcHMNLw4CLGq upraqyPdf2ckNJ6CA9HMPG HKPYVocqbeCZStJQ0mRKlE LTQBHT5XNPGfJPxRFrUKEI WJYzrmLCWfZD7lNLOvCTHR RUdBVElWRVxwYXJccGFyIF FoaGLwV8TfYXV8HOKxtnZ0 vCA9SOMqJvywVTElQMcatC UuF8IwFRaxlkSpi87kiHIc EAsfaMmmqPlcDQSmv0IqFG zkuNZxgPKkyMH4lO8pCgdd YXJccGFyZFxwYXJ9 [facility] Work Phone: [facility] [employer] Phone: Progress Noteon 01-11-2025 Progress Note [facility] Anticoagulatio n Management Service (BRITTANY) Inpatient [...] PharmD BRITTANY Consult Service is available daily [phone] via [employer]. [1] Past Medical History: Diagnosis Date COPD (chronic obstructive pulmonary disease) (HCC) GERD (gastroesophageal reflux disease) Hiatal hernia 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 Obesity FIFI (obstructive sleep apnea) Paroxysmal atrial fibrillation (HCC) Protein deficiency anemia Right bundle branch block Normal [facility] Progress Note -- Attestation signed by Sarah Luna DO at 01/11/2025 3:15 PM CARDIOTHORACIC SURGERY DOS: 01/11/25 POD # 1 Robotic right upper lobe wedge I personally performed a baom-vq-iwne diagnostic evaluation on this patient I agree [...] of 20 minutes were spent between the fezb-tf-fcpv encounter, physical exam, reviewing the medical history, coordinating care, counseling/educating the patient, ordering medications/test/proce dures, interpreting results and documenting in the patient's record on the day of the encounter. The patient was seen and examined independently and relevant data reviewed by myself. Savanah Luna, DO VAL[facility] Cardiothoracic Surgery Cardiothoracic Surgery/[facility] Progress Note PATIENT NAME: Rich James DATE: [...] of 28 minutes were spent between the khjg-ki-fixf encounter, physical exam, reviewing the medical history, coordinating the patient's care, counseling/educating the patient, ordering medications/test/proce dures, interpreting results and documenting clinical information in the patients electronic health record on the day of the encounter. The patient was seen and examined [facility] XR CHEST 1 VIEWon 01-11-2025 XR CHEST [...] was discussed with physician/provider SARAH LUNA by [employer] chat on 01/11/2025 at 6:48 AM EDT. Report Dictated on Electronically Signed By: Vlad Wilkins MD Electronically Signed Date/Time: 01/11/2025 6:48 AM EDT Normal [facility] XR Chest Single viewon 01-11 Sliver of low attenuation is noted under the right hemidiaphragm concerning for free air, likely postsurgical. The critical result of small sliver of free air, likely postsurgical was discussed with physician/provider SARAH LUNA by [employer] chat on 01/11/2025 at 6:48 AM EDT. Report Dictated on Electronically Signed By: Vlad Wilkins MD Electronically Signed Date/Time: 01/11/2025 6:48 AM EDT [facility] Patient Name: RICH JAMES : [...] the right hemidiaphragm concerning for free air. [facility] Vlad Wilkins MD - 01/11/2025 [facility] Name: [facility] 1955 [id number] Exam Date/Time: 01/11/2025 06:15 Procedure: XR CHEST [...] was discussed with physician/provider SARAH LUNA by [employer] secure chat on 01/11/2025 at 6:48 AM EDT. Report Dictated on Electronically Signed By: Vlad Wilkins MD Electronically Signed Date/Time: 01/11/2025 6:[address] [facility] Radiology Study observation (narrative) [facility] XR Chest Single viewOrdered By: Vlad Wilkins on 01-11-2025 [facility] Work Phone: Laboratory - Coagulationon 0 01-10-2025 PT Coag (Bld) [Time] 10.9 s 9.0 - 12.0 s [facility] Nursing Noteon 01-10-[address] Ding patien t is not to wear his home cpap due to risk of rupture of the staple line and risk of pneumothorax. Re-entered patient's room and explained this to patient, patient understands and states he will not put on his home cpap, Placed patient back on 2L oxygen for the night. Normal [facility] Nursing Note Notified Dr. Ding patient is inquiring on whether his coumadin and bupropion will be ordered. Dr. Ding stated it is too soon after surgery to begin coumadin, patient educated. Bupropion medication will be non-formulary, patient understands he is to have his bring it from home. Normal [facility] Nursing Note Report called to H6, family updated [facility] Op Noteon 01-10-2025 Op Note CARDIOTHORACIC SURGERY--OPERATIVE NOTE Date: 01/10/25 Preoperative Diagnosis: Right upper lobe lung nodule Postoperative Diagnosis: Right upper lobe lung nodule Procedure: Robotic right thoracoscopy Right upper lobe wedge resection Mediastinal lymph node dissection Surgeon: Savanah Luna DO Hardware Technician: Mamie Ballesteros Anesthesia: General--Dr. Houston Complications: None [...] and draped in usual sterile fashion. The lead recreation assistant was present for the entire procedure from [...] was undocked and removed. A single 28 Trinidadian chest tube was placed through the anterior [...] Savanah Luna, DO FACS Cardiothoracic Surgery Normal [facility] PROTHROMBIN TIMEon INR Coag (PPP) [Relative time] 1.0 {INR} Normal 0.9-1.1 [facility] Comment on above: Order Comment: If [...] Myocardial Infarction Performed By: #### L [id number] ####[employer]: APOLONIA PADILLA ([phone])[address] PT Coag (PPP) [Time] 10.9 s Normal 9.0-12.0 [facility] Comment on above: Order Comment: If pa tient on coumadin within 4 days prior. Performed By: #### L [id number] ####[employer]: APOLONIA PADILLA ([phone])[address] PT Coag (Bld) [Time]on 01-10 INR Coag (PPP) [Relative time] 1 {INR} 0.9 - 1.1 [facility] Comment on above: Recommended Anticoag ulant [...] Infarction Interpretation and review of laboratory results [facility] XR CHEST 1 VIEWon 01-10-2025 XR CHEST 1 VIEW Patient Name: RICH JAMES : 1955 [facility]#: [id number] Exam Date/Time: 01/10/2025 13:51 Procedure: XR CHEST [...] Signed Date/Time: 01/10/2025 2:13 PM EDT Normal [facility] XR Chest Single viewon 01-10 FINDINGS/IMPRESSION: [...] Electronically Signed Date/Time: 01/10/2025 2:13 PM EDT [facility] Patient Name: RICH JAMES : 1955 Exam Date/Time: 01/10/2025 13:51 Procedure: XR CHEST 1 VIEW Ordering Provider: LUNA RICHARD Reason For Exam: Chest tube placement; chest tube placement CHEST - PORTABLE: CLINICAL INDICATION: Chest tube placement; chest tube placement TECHNIQUE: Portable AP COMPARISON: None. [facility] Cheyenne Serna MD - 01/10/2025 [...] Electronically Signed Date/Time: 01/10/2025 2:13 PM EDT [facility] Radiology Study observation (narrative) [facility] XR Chest Single viewOrdered By: Cheyenne Serna on 01-10-2025 [facility] Work Phone: Prothrombin Time w/INRon INR Normal [facility] Comment on above: Order Comment: Comme nts: STANDING ORDER: Fingerstick is OK Result Comment: FING ERSTICK Performed By: #### L 300.3900 #### [facility] [address] [place], [address] PROTIME Normal 11.7-14.9 [facility] Comment on above: Order Comment: Comme nts: STANDING ORDER: Fingerstick is OK Result Comment: FING ERSTICK Performed By: #### L 300.3900 #### [facility] [address] [place], [address] Protime w/INR Fingerstickon 01-06-2025 INR Coag (PPP) [Relative time] 1.4 {INR} Normal [facility] Comment on above: Result Comment: Crit ical Value > 4.0 Performed By: #### L 9200.0000 #### [facility] [address] [place], [address] Protime [place]en 16.5 SEC High 11.7-14.9 [facility] Comment on above: Performed By: #### L 9200.0000 #### [facility] [address] [place], [address] Protime w/INR Fingerstickon 12-30-2024 INR Coag (PPP) [Relative time] 2.6 {INR} Normal [facility] Comment on above: Result Comment: Crit ical Value > 4.0 Performed By: #### L 9200.0000 #### [facility] [address] [place], [address] Protime [place] 27.7 SEC High 11.7-14.9 [facility] Comment on above: Performed By: #### L 9200.0000 #### [facility] [address] [place], [address] [id number] 12-29-2024 [id number] Medication List Accurate as of December 29, 2024 2:29 PM. Always use your most recent med list. [employer] 160-9-4.8 MCG/ACT aerosol Generic drug: Mwufjeb-Ikkmegvnwjy-Fh rmoterol Medication Adjustments for Surgery: Take morning [...] patient: LAST DOSE PRE OP 01/04/25- FOLLOW CHIROPRACTIC PHYSICIAN INSTRUCTIONS FOR ANY BRIDGING The medication bridging [...] your scheduled surgery time. Please bring your [facility] Surgical folder and medication list with [...] 11 am on the day of discharge. 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 TAKE [...] surgery on the right hand side. Normal [facility] BASIC METABOLIC PANELon 06- Anion gap [Moles/Vol] 8 mmol/L Normal 3-13 [facility] Comment on above: Performed By: #### L AB15 ####[employer]: APOLONIA PADILLA ([phone])[facility] ([facility])[address] [place] [address] Calcium [Mass/Vol] 9.1 mg/dL Normal 8.8-10.0 [facility] Comment on above: Performed By: #### L AB15 ####[employer]: APOLONIA PADILLA ([phone])[facility] ([facility])[address] [place] [address] [place] Chloride [Moles/Vol] 106 mmol/L Normal 98-107 [facility] Comment on above: Performed By: #### L AB15 ####[employer]: APOLONIA PADILLA ([phone])[facility] ([facility])[address] [place] [address] CO2 [Moles/Vol] 26 mmol/L Normal 23-31 [facility] Comment on above: Performed By: #### L AB15 ####[employer]: APOLONIA PADILLA ([phone])[facility] ([facility])[address] [place] [address] Creatinine [Mass/Vol] 1.14 mg/dL Normal 0.72-1.25 [facility] Comment on above: Performed By: #### L AB15 ####[employer]: APOLONIA PADILLA ([phone])[facility] ([facility])[address] [place] [address] [place] GLOMERULAR FILTRATION RATE ML/MIN/1.73 SQ M.PREDICTED 70.1 mL/min/1.73m*2 Normal >60.0 [facility] Comment on above: Result Comment: Calc ulation based on the Chronic Kidney Disease Epidemiology Collaboration (CKD-EPI) equation refit without adjustment for race Performed By: #### L AB15 ####[employer]: APOLONIA PADILLA ([phone])[facility] ([facility])[address] [place] [address] [place] Glucose [Mass/Vol] 78 mg/dL Low 82-115 [facility] Comment on above: Performed By: #### L AB15 ####[employer]: APOLONIA PADILLA ([phone])[facility] [place] [address] Potassium [Moles/Vol] 4.2 mmol/L Normal 3.5-5.1 [facility] Comment on above: Result Comment: [facility] potassium values may be up to 0.5 mmol/L lower than serum values. Performed By: #### L AB15 ####[employer]: APOLONIA PADILLA ([phone])[facility])[address] [place] [address] Sodium [Moles/Vol] 140 mmol/L Normal 136-145 [facility] Comment on above: Performed By: #### L AB15 ####[employer]: APOLONIA PADILLA ([phone])[facility])[address] [place] [address] Urea nitrogen [Mass/Vol] 17 mg/dL Normal 9-23 [facility] Comment on above: Performed By: #### L AB15 ####[employer]: APOLONIA PADILLA ([phone])[facility])[address] [place] [address] BLOOD TYPE AND SCREEN GELon 12-29-2024 ABO GROUPING A Normal [facility] Comment on above: Performed By: #### L [id number] ####[employer]: APOLONIA PADILLA ([phone])[facility] BLOOD BANK ([facility])[address] [place] [address] RH TYPE IN BLOOD Positive Normal [facility] Comment on above: Performed By: #### L [id number] ####[employer]: APOLONIA PADILLA ([phone])[facility] ([facility])[address] [place] [address] CBC (HEMOGRAM)on 12-29-2024 Erythrocyte distribution width (RBC) [Ratio] 13.6 % Normal 11.5-15.0 [facility] Comment on above: Performed By: #### L [id number] ####[employer]: APOLONIA PADILLA ([phone])[facility] ([facility])[address] [place] [address] Hematocrit (Bld) [Volume fraction] 45.9 % Normal 40.0-52.0 [facility] Comment on above: Performed By: #### L [id number] ####[employer]: APOLONIA PADILLA ([phone])[facility])[address] [place] [address] Hemoglobin (Bld) [Mass/Vol] 15.3 g/dL Normal 13.0-18.0 [facility] Comment on above: Performed By: #### L [id number] ####[employer]: APOLONIA PADILLA ([phone])[facility] ([facility])[address] [place] [address] MCH (RBC) [Entitic mass] 31.2 pg Normal 26.0-34.0 [facility] Comment on above: Performed By: #### L [id number] ####[employer]: APOLONIA PADILLA ([phone])[facility])[address] [place] [address] MCHC 33.3 % Normal 30.5-36.0 [facility] Comment on above: Performed By: #### L [id number] ####[employer]: APOLONIA PADILLA ([phone])[facility] ([facility])[address] [place] [address] MCV (RBC) [Entitic vol] 93.5 fL Normal 77.0-99.0 [facility] Comment on above: Performed By: #### L [id number] ####[employer]: APOLONIA PADILLA ([phone])[facility])[address] [place] [address] Platelet mean volume (Bld) [Entitic vol] 10.1 fL Normal 9.0-12.7 [facility] Comment on above: Performed By: #### L [id number] ####[employer]: APOLONIA PADILLA ([phone])[facility] [facility] [place] [address] Platelets (Bld) [#/Vol] 202 10*3/uL Normal 140-440 [facility] Comment on above: Performed By: #### L [id number] ####[employer] Sales: APOLONIA PADILLA ([phone])[facility])[address] [place] [address] RBC (Bld) [#/Vol] 4.91 10*6/uL Normal 4.40-5.90 [facility] Comment on above: Performed By: #### L AB294 ####[employer] Sales: APOLONIA PADILLA ([id number])[facility])[address] [place] [address] WBC (Bld) [#/Vol] 6.1 10*3/uL Normal 3.6-10.7 [facility] Comment on above: Performed By: #### L AB294 ####[employer]: APOLONIA PADILLA ([id number])[address] ECG 12-LEADon 12-29-2024 ECG 12-LEAD IMPRESSION: Sinus bradycardia RBBB and LAFB No previous ECG available for comparison Electronically Signed On 12-29-2024 19:29:41 EDT by Bjorn Dixon [facility] Progress Noteon 12-29-2024 Progress Note [facility] GLENN James : 1955 Primary Care Physician: Marion Feng The patient and/or family/surrogate voluntarily agreed to participate in ACP services.has paperwork Patient?s cognitive capacity: a/o x3 Code Status: [x] [FULL CODE - Continue all advanced life support: CPR,intubation,invasiv e procedures] [_] [DNR-CCA - DO NOT do CPR, intubation] [_] [DNR-ENGINEERING INSTRUCTOR - Comfort care only] [_] DNR form [...] care, with patient and/or family/surrogate. Larissa Herndon, CNC LASER OPERATOR - DOT COMPLIANCE MANAGER Acute care solutions 12/29/2024, 2:57 PM Normal [facility] 36on 12-24-2024 36 Surg proc orders placed. Dong Adam, CNC LASER OPERATOR - DOT COMPLIANCE MANAGER 12/24/24 Normal [facility] Office Visiton 12-23-2024 Follow-up visit [id number] Rich James 1955 M Date Provider Department Center 12/23/2024 [id number]-[facility] ACH CT None Family History Problem Relation Age of Onset Diabetes Father Family Status - Relation Status Age at Father Level of Service:38770 [place] OFFICE/OP CONSLTJ NEW/EST PT MOD MDM 40 MINUTES (57) Reason for Visit and Comments: New Patient [542] Normal [facility] Progress Noteon 12-23-2024 Progress Note [facility] CARDIOVASCULAR & THORACIC SURGERY [address] [facility] [address] [place] [id number] Dept: [phone] Dept Loc: [phone] Visit type: New Reason for Visit: Lung [...] History[3] Social History Marital status: 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 Normal [facility] Pulmonary Visit Reporton Pulmonary Visit Report [facility] Pulmonary Medicine of [address] [place] [address] OFFICE VISIT Date of Service: 12/10/24 MR#: [id number] Acct: [id number] Name: RICH JAMES I Rep #: [id number] : 1955 Provider: ANA Motta Age/Sex: 68/M Location: [facility] Status: Signed Assessment and Plan Assessment and Plan (1) Right upper lobe pulmonary nodule: Status: Acute Comment: 1.6X1.5X1.3X2.3cm Plan: PET positive right apical nodule. I spoke with Dr. Coppola at [facility]. He agrees that the patient is [...] Additional Comments: This note was generated with [employer] dictation software. It may contain incorrect words, [...] mg PO (more content not included)... Normal [facility] Positron emission tomography scan reportOrdered By: Elizabeth Cintron on 12-08-2024 PT Unspecified body region [facility] Imaging Services [address] [place], [place] [address] PET/CT Tumor Base -Thigh Init MR#: [id number] Acct: [id number] Name: RICH JAMES I Rep #: [id number] : 1955 M 68 From: Juliana Cintron MD PCP: Dr. Marion Feng MD Status: REG CLI Study:PET/CT Tumor Base -Thigh Init Date of E xam: 12/07/24 Exam# [id number] Ordering Dr: Giovani Motta NP CARDIAC RN-C EXAM: PET/CT Study CLINICAL HISTORY: 68 y/o [...] PET will be reported separately. Reading Location: [id number] CC: ANA Motta; Dr. Marion Feng MD ~ Beverage Steward: Signed [facility] PET/CT Tumor Base -Thigh Ini ton 12-07-2024 PET/CT Tumor Base -Thigh Init [facility] Imaging Services [address] [place] [address] PET/CT Tumor Base -Thigh Init MR#: [id number] Acct: [id number] Name: RICH JAMES I Rep #: [id number] : 1955 M 68 From: Elizabeth Lundy nd, MD PCP: Dr. Marion Feng MD Status: REG CLI Study: PET/CT Tumor Base -Thigh Init Date of Exam: Exam# [id number] Ordering Dr: Kylie Motta NP CARDIAC RN-C EXAM: PET/CT Study CLINICAL HISTORY: 68 y/o [...] PET will be reported separately. Reading Location: [id number] CC: ANA Motta; Dr. Marion Feng MD Beverage Steward: Signed Normal [facility] Pulmonary Visit Reporton Pulmonary Visit Report [facility] Pulmonary Medicine of [address] [place] [address] OFFICE VISIT Date of Service: 12/02/24 MR#: [id number] Acct: [id number] Name: RICH JAMES I Rep #: [id number] : 1955 Provider: ANA Motta Age/Sex: 68/M Location: [facility] Status: Signed Assessment and Plan Assessment and [...] F17.210 - Nicotine dependence, cigarettes, uncomplicated Refilled wduminggqt-zlcfdank-aq rmoterol 160-9-4.8 mcg/actuation (Breztri Aerosphere) 2 inhalations inhalation BID 3 ea 3RF Plan Details Additional Comments: This note was generated with [employer] software. It may contain incorrect words, spelling, [...] L Pulse (more content not included)... Normal [facility] International normalized rat io (INR) measurement by fingerstickOrdered By: Jose Hylton on 11-17-2024 INR Coag (BldC) [Relative time] 2.5 [facility] Comment on above: Critical Value > 4.[address] Lung Screeningon 11-17-[address] Lung Screening [facility] Imaging Services [address] [place], [place] [address] Low Dose CT Lung Screening MR#: [id number] Acct: [id number] Name: RICH JAMES I Rep #: [id number] : 1955 M 68 From: Bjorn Castro MD PCP: Dr. Marion Feng MD Status: REG CLI Study: Low Dose CT Lung Screening Date of Exam: 11/17 Exam# [id number] Ordering Dr: Kylie Motta CARDIAC RN CARDIAC RN-C PROCEDURE: LOW DOSE CT LUNG SCREENING (CTLUNGSCREEN), [...] 4. Additional description as above. Recommendations per [employer]. Lung CT Screening Reporting and Data System (Lung-RADS) v. 2021 Reading Location: [facility] CC: ANA Motta; Dr. Marion Feng MD Beverage Steward: Signed Normal [facility] Protime w/INR Fingerstickon 11-17-2024 INR Coag (PPP) [Relative time] 2.5 {INR} Normal [facility] Comment on above: Result Comment: Crit ical Value > 4.0 Performed By: #### L 9200.0000 #### [facility] [address] [place], [place], [id number] Protime Coagsen 26.9 SEC High 11.7-14.9 [facility] Comment on above: Performed By: #### L 9200.0000 #### [facility] [address] [place], [address] Whole blood prothrombin time Ordered By: Jose Hylton on 11-17-2024 PT Coag (Bld) [Time] 26.9 s High 11.7-14.9 [facility] INR Coag (BldC) [Relative ti me]Ordered By: Jose Hylton on 10-19-2024 INR Coag (Bld) [Relative time] 2.2 {INR} [facility] Comment on above: Critical Value > 4.0 PT Coag (Bld) [Time]Ordered By: Jose Hylton on 10-19-2024 Bedside Prothrombin Time 24.3 SEC High 11.7-14.9 [facility] Protime w/INR Fingerstickon 10-19-2024 INR Coag (PPP) [Relative time] 2.2 {INR} Normal [facility] Comment on above: Result Comment: Crit ical Value > 4.0 Performed By: #### L 9200.0000 #### [facility] [address] [place], [address] Protime Coagsen 24.3 SEC High 11.7-14.9 [facility] Comment on above: Performed By: #### L 9200.0000 #### [facility] [address] [place], [address] INR Coag (BldC) [Relative ti me]Ordered By: Jose Hylton on 09-02-2024 INR Coag (Bld) [Relative time] 2.9 {INR} [facility] Comment on above: Critical Value > 4.0 International normalized rat io (INR) measurement by fingerstickOrdered By: Jose Hylton on 09-02-2024 INR Coag (BldC) [Relative time] 2.9 [facility] Comment on above: Critical Value > 4.0 PT Coag (Bld) [Time]Ordered By: Jose Hylton on 09-02-2024 Bedside Prothrombin Time 30.5 SEC High 11.7-14.9 [facility] Protime w/INR Fingerstickon 09-02-2024 INR Coag (PPP) [Relative time] 2.9 {INR} Normal [facility] Comment on above: Result Comment: Crit ical Value > 4.0 Performed By: #### L 9200.0000 #### [facility] [address] [place], [address] Protime Coagsen 30.5 SEC High 11.7-14.9 [facility] Comment on above: Performed By: #### L 9200.0000 #### [facility] [address] [place], [place], [address] Whole blood prothrombin time Ordered By: [place] River[place]min Hylton on 09-02-2024 PT Coag (Bld) [Time] 30.5 s High 11.7-14.9 [facility] INR Coag (BldC) [Relative ti me]Ordered By: Jose Warner on 07-15-2024 INR Coag (Bld) [Relative time] 3.2 {INR} [facility] Comment on above: Critical Value > 4.0 PT Coag (Bld) [Time]Ordered By: [place] Hylton on 07-15-2024 Bedside Prothrombin Time 32.7 SEC High 11.7-14.9 [facility] Protime w/INR Fingerstickon 07-15-2024 INR Coag (PPP) [Relative time] 3.2 {INR} Normal [facility] Comment on above: Result Comment: Crit ical Value > 4.0 Performed By: #### L 9200.0000 #### [facility] [address] [place], [place], [address] Protime Coagsen 32.7 SEC High 11.7-14.9 [facility] Comment on above: Performed By: #### L 9200.0000 #### [facility] [address] [place], [place], [address] Cardiology Visit Reporton Cardiology Visit Report [facility] [address] [place], [place] [address] OFFICE VISIT Date of Service: 04/19/24 MR#: [id number] Acct: [id number] Name: RICH JAMES I Rep #: [id number] : 1955 Provider: ANA brown Age/Sex: 68/M Location[place] [facility] Status: Signed HPI HPI History of Present [...] He proceeded with ablation on 07/26/2022 with [facility]. He tells me that he is feeling [...] air Intake Visit Reasons: 1 Y FU Head Up Operator Required: No Accompanied by: Self Is patient [...] 04/19/24 Rx mcg-formot 4.8 mcg/actuation HFA inhaler (DNAe LTDzCodersClan) Have you fallen in the past year?: No Nurse's Note: Pt does not have a list of medications but states nothing has changed [facility] Medical History History of cardioversion GERD (gastroesophageal [...] No Barney (more content not included)... Normal [facility] Prothrombin Time w/INRon INR Normal [facility] Comment on above: Order Comment: Comme nts: THIS IS A STANDING ORDER Result Comment: PER DR OFFICE-DID FINGERSTICK Performed By: #### L 300.3900 #### [facility] [address] [place], [address] PROTIME Normal 11.7-14.9 [facility] Comment on above: Order Comment: Comme nts: THIS IS A STANDING ORDER Result Comment: PER DR OFFICE-DID FINGERSTICK Performed By: #### L 300.3900 #### [facility] [address] [place], [address] Protime w/INR Fingerstickon 04-19-2024 INR Coag (PPP) [Relative time] 3.5 {INR} Normal [facility] Comment on above: Result Comment: Crit ical Value > 4.0 Performed By: #### L 9200.0000 #### [facility] [address] [place], [address] Protime Coagsen 34.2 SEC High 11.7-14.9 [facility] Comment on above: Performed By: #### L 9200.0000 #### [facility] [address] [place], [address] Protime w/INR Fingerstickon 03-15-2024 INR Coag (PPP) [Relative time] 3.1 {INR} Normal [facility] Comment on above: Result Comment: Crit ical Value > 4.0 Performed By: #### L 9200.0000 #### [facility] [address] [place], [address] Protime Coagsen 31.0 SEC High 11.7-14.9 [facility] Comment on above: Performed By: #### L 9200.0000 #### [facility] [address] [place], [address] Pulmonary Visit Reporton Pulmonary Visit Report [facility] of [place] [address] [place] [address] OFFICE VISIT Date of Service: 03/15/24 MR#: [id number] Acct: [id number] Name: RICH JAMES I Rep #: [id number] : 1955 Provider: ANA Motta Age/Sex: 68/M Location[place] [facility] Status: Signed with Addenda ADDENDUM by Nilsa [...] Chronic obstructive pulmonary disease, unspecified Medications: New oqmwwgquka-fmrkjyfn-pb rmoterol 160-9-4.8 mcg/actuation (Breztri Aerosphere) 2 inhalations inhalation BID 3 ea 3RF Discontinued glycopyrrolate-formote rol 9-4.8 mcg (Bevespi Aerosphere) Discontinued Reason: Order Changed 2 inhalations inhalation BID 1 inh 11RF Plan Details Follow Up: 11/18/24 ([facility]) HPI 1 Y FU Chief Complaint: Routine [...] dust. 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 Normal [facility] Capillary blood internationa l normalized ratio (INR)Ordered By: Jose Hylton on 11-17-2023 INR Coag (BldC) [Relative time] 2.6 [facility] Comment on above: Critical Value > 4.0 Whole blood prothrombin time Ordered By: Jose Hylton on 11-17-2023 PT Coag (Bld) [Time] 26.3 s 11.7-14.9 [facility] Capillary blood internationa l normalized ratio (INR)Ordered By: Jose Hylton on 10-03-2023 INR Coag (BldC) [Relative time] 3.2 [facility] Comment on above: Critical Value > 4.0 Whole blood prothrombin time Ordered By: Jose Hylton on 10-03-2023 PT Coag (Bld) [Time] 31.6 s 11.7-14.9 [facility] Basophil percentageOrdered B y: Marion Feng on 08-25-2023 Bilirubin [Mass/Vol] 0.90 mg/dL 0.20-1.00 [facility] Comment on above: For patients on eltr ombopag therapy, use of Dimension Shelley TBIL is not recommended. Chloride [Moles/Vol] 109 mmol/L 98-107 [facility] Cholesterol [Mass/Vol] 160 mg/dL <200 [facility] Comment on above: <200 mg/dL Desirable 200-240 mg/dL Borderline >240 mg/dL High Risk Glucose [Mass/Vol] 113 mg/dL 74-106 [facility] Comment on above: Fasting Glucose resu lt from 100 to 125 mg/dL suggests IMPAIRED HOMEOSTASIS per A.D.A. criteria. Potassium [Moles/Vol] 4.4 mmol/L 3.5-5.1 [facility] Protein [Mass/Vol] 7.6 g/dL 6.4-8.2 [facility] Sodium [Moles/Vol] 140 mmol/L 136-145 [facility] Triglyceride [Mass/Vol] 178 mg/dL <199 [facility] Comment on above: The drugs N-Acetylcy steine and Metamizole may falsely depress this assay.Serum Triglycerides Reference Interval Normal <150 mg/dL Borderline high 150 - 199 mg/dL High 200 - 499 mg/dL Very High > or = 500 mg/dL Laboratory - Chemistry and C hemistry - challengeOrdered By: Marion Feng on 08-25-2023 Albumin/Globulin [Mass ratio] 1.1 {ratio} 0.9-2.4 [facility] ALP [Catalytic activity/Vol] 51 U/L 45-117 [facility] ALT [Catalytic activity/Vol] 37 U/L 16-61 [facility] Cholesterol in HDL [Mass/Vol] 42 mg/dL >40 [facility] Comment on above: The drugs N-Acetylcy steine and Metamizole may falsely depress this assay. Reference Range HDL <40 mg/dL Low HDL Cholesterol HDL >or= 60 mg/dL High HDL Cholesterol Cholesterol in LDL [Mass/Vol] 82 mg/dL 0-130 [facility] CO2 [Moles/Vol] 29.0 mmol/L 21.0-32.0 [facility] Globulin (S) [Mass/Vol] 3.7 g/dL 2.2-4.2 [facility] Prostate specific Ag IA [Mass/Vol] 0.65 ng/mL 0.00-4.00 [facility] Comment on above: This test was perfor med using the TPSA assay method for the[facility] chemistry system. Values obtained with differentassay methods cannot be used interchangably.When changing PSA assays in the course of monitoring apatient, additional sequential testing should be carriedout to confirm baseline values. Urea nitrogen/Creatinine [Mass ratio] 15.8 mg/mg 10-20 [facility] No Panel InformationOrdered By: Marion Feng on 08-25-2023 Estimated GFR (MDRD) Amer 78 mL/min >60 [facility] Comment on above: GFR Calc Estimated GFR (MDRD) Non-Af Amer 64 mL/min >60 [facility] Comment on above: Non- GFR Calc VLDL Cholesterol 36 mg/dL 5-40 [facility] Serum or plasma calcium laura urement (mass/volume)Ordered By: Marion Feng on 08-25-2023 Calcium [Mass/Vol] 9.4 mg/dL 8.5-10.1 [facility] Serum or plasma creatinine m easurement (mass/volume)Ordered By: Marion Fegn on 08-25-2023 Creatinine [Mass/Vol] 1.20 mg/dL 0.70-1.30 [facility] Comment on above: The validity of the calculated GFR & GFRAA in patients over 70 years has not been determined. Clinical correlation is essential. Serum or plasma urea nitroge n measurement (mass/volume)Ordered By: Marion Feng on 08-25-2023 Urea nitrogen [Mass/Vol] 19 mg/dL 7-18 [facility] Thin prep Papanicolaou smear with manual screeningOrdered By: Marion Feng on 08-25-2023 Thin prep Papanicolaou smear with manual screening 3.9 g/dL 3.2-5.0 [facility] Thin prep Papanicolaou smear with manual screening 30 U/L 15-37 [facility] Thin prep Papanicolaou smear with manual screening 2 5-15 [facility] Laboratory - CoagulationOrde red By: Jose Hylton on 07-22-2023 INR Coag (Bld) [Relative time] 2.3 {INR} [facility] Comment on above: Critical Value > 4.0 Whole blood prothrombin time Ordered By: Jose Hylton on 07-22-2023 PT Coag (Bld) [Time] 24.9 s 11.7-14.9 [facility] Laboratory - CoagulationOrde red By: Jose Hylton on 05-23-2023 INR Coag (Bld) [Relative time] 2.2 {INR} [facility] Comment on above: Critical Value > 4.0 Whole blood prothrombin time Ordered By: Jose Hylton on 05-23-2023 PT Coag (Bld) [Time] 24.4 s 11.7-14.9 [facility] CNOVon 05-05-2023 CNOV Office Visit (AGCARDPOB) RICH JAMES I ([id number]) 1955 M NFR Date Time Provider Department 05/05/23 8:00 AM AYLIN MATHEW AGCARDPOPeng During your visit today, we recorded the following information about you: Pulse Blood pressure Weight Height 52/minute 115/66 90.7 kg 1.778 m Aylin Mathew MD 05/05/2023 8:38 AM Signed Heart [facility] Vascular [facility] SECTION OF CARDIAC PACING and ELECTROPHYSIOLOGY OUTPATIENT VISIT DATE May 05, 2023 OUTPATIENT VISIT TYPE NEW PRIMARY CARE PHYSICIAN: Marion Feng [address] [facility] [address] [place] [address] REFERRING PHYSICIAN: SELF CHIEF COMPLAINT: Follow up [...] 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 He denies any symptoms of recurrent AF, angina, dizziness, lightheadedness, near-syncope, shortness of breath, worsening activity tolerance, or constitutional symptoms. He reports this is the best he has felt in years. Patient is compliant with his Toprol-XL and Coumadin regimens. 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 [...] regimens. CT of chest was performed at [place] and showed no concerning findings. 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 Normal [facility] - CoagulationOrde red By: Jsoe Hylton on 04-02-2023 INR Coag (Bld) [Relative time] 2.7 {INR} [facility] Comment on above: Critical Value > 4.0 Whole blood prothrombin time Ordered By: Jose Hylton on 04-02-2023 PT Coag (Bld) [Time] 29.3 s 11.7-14.9 [facility] - CoagulationOrde red By: Jose Hylton on 02-06-2023 INR Coag (Bld) [Relative time] 2.8 {INR} [facility] Comment on above: Critical Value > 4.0 Whole blood prothrombin time Ordered By: Jose Hylton on 02-06-2023 PT Coag (Bld) [Time] 30.2 s 11.7-14.9 [facility] CNOVon 01-27-2023 CNOV Office Visit (AGCARDPOB) RICH JAMES I ([id number]) 1955 M NFR Date Time Provider Department 01/27/23 8:30 AM NIKITA ORTIZ AGCARDPOPeng During your visit today, we recorded the following information about you: Pulse Blood pressure Weight 55/minute 116/64 91.2 kg Nikita Ortiz APRN.DOT COMPLIANCE MANAGER 01/27/2023 9:09 AM Signed [facility] Cardiology Electrophysiology PRIMARY CARE PHYSICIAN: Marion Feng [facility] [address] CHIEF COMPLAINT: Persistent atrial fibrillation. HISTORY OF PRESENT ILLNESS (copied from my previous office note on 11/05/2022): Rich is a pleasant 66-year-old gentleman who presents today for 3-month follow-up status post radiofrequency PVI with Dr. Mathew on 08/05/2022. Overall patient reports he has been feeling very well lately. 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 CT of chest was performed at [place] and showed no concerning findings. Surface echo and Holter monitor results currently pending. Agreeable to follow-up in 3 months. Interval History: Rich is a pleasant 67-year-old gentleman who presents today for follow-up regarding history of persistent atrial fibrillation. Overall patient reports feeling excellent. 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 He denies any symptoms of recurrent AF, angina, dizziness, lightheadedness, near-syncope, shortness of breath, worsening activity tolerance, or constitutional symptoms. He reports this is the best he has felt in years. Patient is compliant with his Toprol-XL and Coumadin regimens. He is a [id number] of 3 secondary to age and DVT. [...] mg ta (more content not included)... Normal [facility] - CoagulationOrde red By: Jose Hylton on 01-16-2023 INR Coag (Bld) [Relative time] 1.8 {INR} [facility] Comment on above: Critical Value > 4.0 Whole blood prothrombin time Ordered By: Jose Hylton on 01-16-2023 PT Coag (Bld) [Time] 19.7 s 11.7-14.9 [facility] Absolute lymphocyte countOrd ered By: Dr. Feng on 12-02-2022 Lymphocytes Auto (Unsp spec) [#/Vol] 1.54 10*3/uL 0.83-4.51 [facility] Basophil percentageOrdered B y: Dr. Feng on 12-02-2022 Basophils/100 WBC (Bld) 1.3 % 0-1 [facility] Bilirubin [Mass/Vol] 0.70 mg/dL 0.20-1.00 [facility] Comment on above: For patients on eltr ombopag therapy, use of Dimension Shelley TBIL is not recommended. Chloride [Moles/Vol] 107 mmol/L 98-107 [facility] Cholesterol [Mass/Vol] 156 mg/dL <200 [facility] Comment on above: <200 mg/dL Desirable 200-240 mg/dL Borderline >240 mg/dL High Risk Eosinophils/100 WBC (Bld) 5.4 % 0-5 [facility] Glucose [Mass/Vol] 101 mg/dL 74-106 [facility] Comment on above: Fasting Glucose resu lt from 100 to 125 mg/dL suggests IMPAIRED HOMEOSTASIS per A.D.A. criteria. Neutrophils (Bld) [#/Vol] 3.4 10*3/uL 2.0-7.7 [facility] Neutrophils/100 WBC (Bld) 57.8 % 47-70 [facility] Potassium [Moles/Vol] 4.4 mmol/L 3.5-5.1 [facility] Protein [Mass/Vol] 7.5 g/dL 6.4-8.2 [facility] Sodium [Moles/Vol] 141 mmol/L 136-145 [facility] Triglyceride [Mass/Vol] 138 mg/dL <199 [facility] Comment on above: The drugs N-Acetylcy steine and Metamizole may falsely depress this assay.Serum Triglycerides Reference Interval Normal <150 mg/dL Borderline high 150 - 199 mg/dL High 200 - 499 mg/dL Very High > or = 500 mg/dL WBC (Bld) [#/Vol] 6.0 10*3/uL 4.4-11.0 [facility] Blood erythrocytes count (nu mber/volume)Ordered By: Dr. Feng on 12-02-2022 RBC (Bld) [#/Vol] 4.91 10*6/uL 4.6-6.2 [facility] Blood hemoglobin measurement (mass/volume)Ordered By: Dr. Feng on 12-02-2022 Hemoglobin (Bld) [Mass/Vol] 15.2 g/dL 13.0-16.5 [facility] Blood lymphocytes/100 leukoc ytesOrdered By: Dr. Feng on 12-02-2022 Lymphocytes/100 WBC (Bld) 25.8 % 19-41 [facility] Blood monocytes/100 leukocyt esOrdered By: Dr. Feng on 12-02-2022 Monocytes/100 WBC (Bld) 9.4 % 0-10 [facility] Blood platelet mean volumeOr dered By: Dr. Feng on 12-02-2022 Platelet mean volume (Bld) [Entitic vol] 9.8 fL 6.2-12.0 [facility] Determination of erythrocyte mean corpuscular volume (MCV)Ordered By: Dr. Feng on 12-02-2022 MCV (RBC) [Entitic vol] 94.7 fL 80-94 [facility] Hematocrit Auto (Bld) [Volum e fraction]Ordered By: Dr. Feng on 12-02-2022 Hematocrit (Bld) [Volume fraction] 46.5 % 40-54 [facility] INR in Blood by Coagulation assayOrdered By: Dr. Hylton on 12-02-2022 INR Coag (Bld) [Relative time] 2.1 {INR} [facility] Laboratory - Chemistry and C hemistry - challengeOrdered By: Dr. Feng on 12-02-2022 ALP [Catalytic activity/Vol] 51 U/L 45-117 [facility] ALT [Catalytic activity/Vol] 38 U/L 16-61 [facility] CO2 [Moles/Vol] 27.0 mmol/L 21.0-32.0 [facility] Globulin (S) [Mass/Vol] 3.6 g/dL 2.2-4.2 [facility] Urea nitrogen/Creatinine [Mass ratio] 15.2 mg/mg 10-20 [facility] Laboratory - CoagulationOrde red By: Dr. Hylton on 12-02-2022 PT Coag (PPP) [Time] 23.7 s 11.7-14.9 [facility] - Hematology and Cell countsOrdered By: Dr. Fegn on 12-02-2022 Erythrocyte distribution width (RBC) [Entitic vol] 47.8 fL 35.1-43.9 [facility] Erythrocyte distribution width (RBC) [Ratio] 13.6 % 11.6-14.6 [facility] Immature granulocytes/100 WBC (Bld) 0.300 % 0.0-0.9 [facility] Comment on above: IG% - Immature Granu locytes (promyelocytes, myelocytes and metamyelocytes) > 1% indicates that a LEFT SHIFT is Present. MCH (RBC) [Entitic mass] 31.0 pg 27.0-32.0 [facility] Nucleated RBC/100 WBC (Bld) [Ratio] 0 % 0-5 [facility] Auto (RBC) [Mass/Vol]Or dered By: Dr. Feng on 12-02-2022 MCHC (RBC) [Mass/Vol] 32.7 g/dL 32-36 [facility] No Panel InformationOrdered By: Dr. Feng on 12-02-2022 Estimated GFR (MDRD) Amer 98 mL/min >60 [facility] Comment on above: GFR Calc Estimated GFR (MDRD) Non-Af Amer 81 mL/min >60 [facility] Comment on above: Non- GFR Calc Vitamin D 25-Hydroxy 43.0 ng/mL [facility] Comment on above: Vitamin D 25(OH) Sta tus Range Deficiency <20 ng/mL (50nmol/L) Insufficiency 20 - 30 ng/mL (50 - 75 nmol/L) Sufficiency 30 - 100 ng/mL (75 - 250 nmol/L) Toxicity >100 ng/mL (>250 nmol/L) Platelets bldOrdered By: Dr. Feng on 12-02-2022 Platelets (Bld) [#/Vol] 229 10*3/uL 150-450 [facility] Serum or plasma albumin laura urement (mass/volume)Ordered By: Dr. Feng on 12-02-2022 Albumin [Mass/Vol] 3.9 g/dL 3.2-5.0 [facility] Serum or plasma albumin/glob ulin mass ratioOrdered By: Dr. Feng on 12-02-2022 Albumin/Globulin [Mass ratio] 1.1 {ratio} 0.9-2.4 [facility] Serum or plasma calcium laura urement (mass/volume)Ordered By: Dr. Feng on 12-02-2022 Calcium [Mass/Vol] 9.2 mg/dL 8.5-10.1 [facility] Serum or plasma cholesterol in HDL measurement (mass/volume)Ordered By: Dr. Feng on 12-02-2022 Cholesterol in HDL [Mass/Vol] 41 mg/dL >40 [facility] Comment on above: The drugs N-Acetylcy steine and Metamizole may falsely depress this assay. Reference Range HDL <40 mg/dL Low HDL Cholesterol HDL >or= 60 mg/dL High HDL Cholesterol Serum or plasma cholesterol in VLDL measurement (mass/volume)Ordered By: Dr. Feng on 12-02-2022 Cholesterol in VLDL [Mass/Vol] 28 mg/dL 5-40 [facility] Serum or plasma creatinine m easurement (mass/volume)Ordered By: Dr. Feng on 12-02-2022 Creatinine [Mass/Vol] 0.99 mg/dL 0.70-1.30 [facility] Comment on above: The validity of the calculated GFR & GFRAA in patients over 70 years has not been determined. Clinical correlation is essential. Serum or plasma low density lipoprotein (LDL) cholesterol measurement (mass/volume)Ordered By: Dr. Feng on 12-02-2022 Cholesterol in LDL [Mass/Vol] 87 mg/dL 0-130 [facility] Serum or plasma urea nitroge n measurement (mass/volume)Ordered By: Dr. Feng on 12-02-2022 Urea nitrogen [Mass/Vol] 15 mg/dL 7-18 [facility] Thin prep Papanicolaou smear with manual screeningOrdered By: Dr. Feng on 12-02-2022 Thin prep Papanicolaou smear with manual screening 31 U/L 15-37 [facility] Thin prep Papanicolaou smear with manual screening 7 5-15 [facility] RICH JAMES I ([id number]) 1955 Desiree NFR Date Time Provider Department [...] Date Reviewed: 11/05/2022 Reviewed by: Nikita Ortiz APRN.DOT COMPLIANCE MANAGER - Fully Assessed Reason for Visit: Patient [...] Encounter Status:Closed by GEORGINA DUDLEY on 11/20/22 [facility] Danyel 11-19-2022 [facility] Telephone (AGCARDPOB ) RICH JAMES I ([id number]) 1955 M NFR Date Time Provider Department [...] Date Reviewed: 11/05/2022 Reviewed by: Nikita Ortiz APRN.DOT COMPLIANCE MANAGER - Fully Assessed Reason for Visit: Results [95] [employer] [employer] - Other [3602] Primary Visit Diagnosis:Dyspnea, unspecified type [R06.00] Other Visit Diagnosis:Regular wide QRS complex tachycardia [R00.0] Order(s):NM CARDIAC PERF STRESS/EXERCISE [8285923] Order #: [id number] FUTURE Prescriptions as of 11/19/2022 - metoprolol [...] Encounter Status:Closed by AYLIN MATHEW [facility] RICH JAMES I ([id number]) 1955 M NFR Date Time Provider Department [...] pt. Placed in Dr. Mathew's inbox @ [place] for review. Sanjeev Anastasiya November 19, 2022 1:20 PM Allergies As of Date: 11/07/2022 Noted Allergy Reaction SEASONAL ALLERGIES 02/18/2020 14 - Other: See Comments Date Reviewed: 11/05/2022 Reviewed by: Nikita Ortiz APRN.DOT COMPLIANCE MANAGER - Fully Assessed Reason for Visit: Results [...] Encounter Status:Closed by NILSA ROSE on 11/07/22 [facility] CNOVon 11-05-2022 CNOV Office Visit (AGCARDPOB) RICH JAMES I ([id number]) 1955 M NFR Date Time Provider Department 11/05/22 10:00 AM NIKITA ORTIZ AGCARDPOB During your visit today, we recorded the following information about you: Pulse Blood pressure Weight 48/minute 111/60 93.4 kg Vicky Curtis MA 11/05/2022 10:33 AM Signed No cardiac complaints today. FRANCE Harry APRN.DOT COMPLIANCE MANAGER 11/05/2022 10:33 AM Signed [facility] Electrophysiology PRIMARY CARE PHYSICIAN: Marion Feng [address] [address] CHIEF COMPLAINT: 3 months post radiofrequency PVI [...] lately. 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 CT of chest was performed at [place] and showed no concerning findings. Surface echo [...] Use [place] (more content not included)... Normal [facility] ECHOon 11-05-2022 Echocardiography Echocardiography Report: Transthoracic Echo [facility] Date of service: 11/05/2022 8:23:41 AM [facility] Ordering physician: AYLIN MATHEW Indication: Sustained atrial [...] * * * Final * * * [employer] Image : [id number] goDynamicsSISUID Normal [facility] Basophil percentageOrdered B y: Hi Swanson on 10-14-2022 Creatinine [Mass/Vol] 1.3 mg/dL 0.70-1.30 [facility] Laboratory - Chemistry and C hemistry - challengeOrdered By: Hi Swanson on 10-14-2022 GFR/1.73 sq M.predicted among non-blacks MDRD (S/P/Bld) [Vol rate/Area] 58.0000 mL/min/{1.73_m2} >60 [facility] Laboratory - CoagulationOrde red By: Dr. Hylton on 10-03-2022 INR Coag (Bld) [Relative time] 2.0 {INR} [facility] Comment on above: Critical Value > 4.0 Whole blood prothrombin time Ordered By: Dr. Hylton on 10-03-2022 PT Coag (Bld) [Time] 21.5 s 11.7-14.9 [facility] - CoagulationOrde red By: Dr. Hylton on 09-13-2022 INR Coag (Bld) [Relative time] 2.3 {INR} [facility] Comment on above: Critical Value > 4.0 Whole blood prothrombin time Ordered By: Dr. Hylton on 09-13-2022 PT Coag (Bld) [Time] 27.3 s 11.7-14.9 [facility] CNPNon 08-23-2022 CNPN Telephone (ANUP ) RICH JAMES I ([id number]) 1955 M NFR Date Time Provider Department [...] Visit Diagnosis:Persistent atrial fibrillation (HCC) [I48.19] Order(s):ECHO [[id number]] Order #: [id number]: 1 FUTURE perflutren lipid microspheres 1.3 mL in NaCl (PF) 0.9% 10 mL injection (DEFINITY)Disp: Rfl: sodium chloride 0.9 % (flush) 10 mL (BD POSIFLUSH)Disp: Rfl: HOLTER MONITOR 24 HOUR [[id number]] Order #: [id number] FUTURE CTA CHEST (NONGATED) W IVCON [[id number]] Order #: [id number] FUTURE iv contrast (will be provided with [...] Miscellaneous Medical Supply (COMPRESSION STOCKINGS) [facility] Use as directed (Pressure 30-40mmHg) to Right [...] Encounter Stat (more content not included)... Normal [facility] ANES POSTPROC EVALon 023 ANES POSTPROC EVAL HNO ID: [id number] Author: Juwan Murry MD Service: Anesthesiology Author Type: Anesthesiologist Type: Anesthesia Postprocedure Evaluation Filed: 08/06/2022 11:09 AM Note Text: POST ANESTHESIA EVALUATION NOTE : 1955 Procedure Summary Date: 08/05/22 Room / Location: [facility] / [place] [facility] Anesthesia Start: 09 Anesthesia Stop: [...] August 06, 2022 TIME: 11:08 AM CSN: [id number] [facility] CNDSon 08-06-2022 [facility] HNO ID: [id number] Author: Nikita Ortiz APRN.DOT COMPLIANCE MANAGER Service: Electrophysiology Author Type: Nurse Practitioner Type: Discharge Summary Filed: 08/06/2022 11:40 AM Note Text: Attestation signed by Aylin Mathew MD at 08/07/2022 5:02 PM Attending Note I reviewed the Mid Level Net Developer's note. I agree with the assessment and [...] Team Members: Treatment Team: Attending Provider: Aylin Mathew MD MY CONDITION AT DISCHARGE: Good REASON [...] call for appointment?: No Aylin Mathew MD [phone] [facility] [address] [facility] [address] PCP Requested Referral Additional Provider to Provider [...] for stroke POA: Unknown Assessment AND Plan: [id number] of 3 secondary to embolism and age. Remains anticoagulated on Coumadin 5 mg daily. Treatment Team: Attending Provider: Aylin Mathew MD FOLLOW-UP APPOINTMENTS ALREADY SCHEDULED WITH A [facility] PROVIDER: No future appointments. ALLERGIES Allergen Reactions [...] on Wednesdays (more content not included)... Normal [facility] ANES PRE-OPon 08-05-2022 ANES PRE-OP HNO ID: [id number] Author: Juwan Murry MD Service: Anesthesiology Author Type: Anesthesiologist Type: Anesthesia Preprocedure Evaluation Filed: 08/06/2022 11:09 AM Note Text: ANESTHESIOLOGY DAY OF SURGERY NOTE : 1955 Procedure Information Date/Time: 08/05/2215 Procedure: COMPLETE EPS W/PVI ABL W/WO 3D MAP ICE (Bilateral) - carto/rf hANDp on 07/30? Check with Priyanka pacu/rou Location: [place] [facility] / [place] [facility] Surgeons: Aylin Mathew MD Estimated [...] and consent discussed: yes. Patient / Responsible Libertarian agrees to proceed: yes Patient / Surrogate [...] August 05, 2022 TIME: 8:14 AM CSN: [id number] Normal [facility] Basic metabolic 2000 panelon 08-05-2022 Anion gap [Moles/Vol] 10 mmol/L Normal 9-18 [facility] Comment on above: Order Comment: Júnior ireland Type: BLOOD SPECIMEN Ordering Facility: [facility] Address: [address] [place] [address] Performed By: #### 2 4321-2 #### [facility] CLIA [id number] [address] [place] [address] [place] Calcium [Mass/Vol] 9.1 mg/dL Normal 8.5-10.2 [facility] Comment on above: Order Comment: Júnior ireland Type: BLOOD SPECIMEN Ordering Facility: [facility] Address: [address] [address] Performed By: #### 2 4321-2 #### [facility] CLIA [id number] 1 [place] [address] [place] Chloride [Moles/Vol] 107 mmol/L High 97-105 [facility] Comment on above: Order Comment: Speci men Type: BLOOD SPECIMEN Ordering Facility: [facility] Address: [address] [address] Performed By: #### 2 4321-2 #### [facility] CLIA [id number] [address] [place] CO2 [Moles/Vol] 22 mmol/L Normal 22-30 [facility] Comment on above: Order Comment: Speci men Type: BLOOD SPECIMEN Ordering Facility: [facility] Address: [address] [address] Performed By: #### 2 4321-2 #### [facility] CLIA [id number] [address] STATES OF [facility] Creatinine [Mass/Vol] 1.01 mg/dL Normal 0.73-1.22 [facility] Comment on above: Order Comment: Speci men Type: BLOOD SPECIMEN Ordering Facility: [facility] Address: [address] [address] Performed By: #### 2 4321-2 #### [facility] CLIA [id number] [address] ESTIMATED GLOMERULAR FILTRATION RATE 83 mL/min/1.73m??? Normal >=60 [facility] Comment on above: Order Comment: Speci men Type: BLOOD SPECIMEN Ordering Facility: [facility] Address: [address] [place] [address] Result Comment: Vidya mated Glomerular Filtration Rate [...] GFR. Performed By: #### 2 4321-2 #### [facility] CLIA [id number] [address] [place] Glucose [Mass/Vol] 107 mg/dL High 74-99 [facility] Comment on above: Order Comment: Júnior ireland Type: BLOOD SPECIMEN Ordering Facility: [facility] Address: [address] [place] [address] Result Comment: The [place] Diabetes Association (ADA) provides guidance for cutoff [...] Standards of Medical Care in Diabetes 2016, [place] Diabetes Association. Diabetes Care. 2016.39(Suppl 1). Performed By: #### 2 4321-2 #### [facility] CLIA [id number] [address] [place] [address] [place] Potassium [Moles/Vol] 4.3 mmol/L Normal 3.7-5.1 [facility] Comment on above: Order Comment: Júnior ireland Type: BLOOD SPECIMEN Ordering Facility: [facility] Address: [address] [place] [address] Performed By: #### 2 4321-2 #### [facility] CLIA [id number] [address] [place] Sodium [Moles/Vol] 139 mmol/L Normal 136-144 [facility] Comment on above: Order Comment: Júnior ireland Type: BLOOD SPECIMEN Ordering Facility: [facility] Address: [address] [place] [address] Performed By: #### 2 4321-2 #### [facility] CLIA [id number] [address] [place] [address] [place] Urea nitrogen [Mass/Vol] 17 mg/dL Normal 9-24 [facility] Comment on above: Order Comment: Júnior ireland Type: BLOOD SPECIMEN Ordering Facility: [facility] Address: [address] [place] [address] Performed By: #### 2 4321-2 #### [facility] CLIA [id number] [address] CBC panel Auto (Bld)on 08-05 Erythrocyte distribution width (RBC) [Ratio] 14.1 % Normal 11.5-15.0 [facility] Comment on above: Order Comment: Speci men Type: BLOOD SPECIMEN Ordering Facility: [facility] Address: [address] [place] [address] Performed By: #### T SCR #### [facility] CLIA [id number] [address] Hematocrit (Bld) [Volume fraction] 46.6 % Normal 39.0-51.0 [facility] Comment on above: Order Comment: Speci men Type: BLOOD SPECIMEN Ordering Facility: [facility] Address: [address] [place] [address] Performed By: #### T SCR #### [facility] CLIA [id number] [address] Hemoglobin (Bld) [Mass/Vol] 15.3 g/dL Normal 13.0-17.0 [facility] Comment on above: Order Comment: Speci men Type: BLOOD SPECIMEN Ordering Facility: [facility] Address: [address] [place] [address] Performed By: #### T SCR #### [facility] CLIA [id number] [address] MCH (RBC) [Entitic mass] 31.2 pg Normal 26.0-34.0 [facility] Comment on above: Order Comment: Speci men Type: BLOOD SPECIMEN Ordering Facility: [facility] Address: [address] [place] [address] Performed By: #### T SCR #### [facility] CLIA [id number] [address] OF [facility] MCHC (RBC) [Mass/Vol] 32.8 g/dL Normal 30.5-36.0 [facility] Comment on above: Order Comment: Speci men Type: BLOOD SPECIMEN Ordering Facility: [facility] Address: [address] [address] Performed By: #### T SCR #### [facility] CLIA [id number] [address] MCV (RBC) [Entitic vol] 95.1 fL Normal 80.0-100.0 [facility] Comment on above: Order Comment: Speci men Type: BLOOD SPECIMEN Ordering Facility: [facility] Address: [address] [address] Performed By: #### T SCR #### [facility] CLIA [id number] [address] Nucleated RBC (Bld) [#/Vol] 10*3/uL Normal <0.01 [facility] Comment on above: Order Comment: Speci men Type: BLOOD SPECIMEN Ordering Facility: [facility] Address: [address] [address] Performed By: #### T SCR #### [facility] CLIA [id number] [address] Platelet mean volume (Bld) [Entitic vol] 9.6 fL Normal 9.0-12.7 [facility] Comment on above: Order Comment: Speci men Type: BLOOD SPECIMEN Ordering Facility: [facility] Address: [address] [address] Performed By: #### T SCR #### [facility] CLIA [id number] [address] Platelets (Bld) [#/Vol] 206 10*3/uL Normal 150-400 [facility] Comment on above: Order Comment: Speci men Type: BLOOD SPECIMEN Ordering Facility: [facility] Address: [address] [place] [address] Performed By: #### T SCR #### [facility] CLIA [id number] [address] RBC (Bld) [#/Vol] 4.90 10*6/uL Normal 4.20-6.00 [facility] Comment on above: Order Comment: Speci men Type: BLOOD SPECIMEN Ordering Facility: [facility] Address: [address] [address] Performed By: #### T SCR #### [facility] CLIA [id number] [address] OF [facility] WBC (Bld) [#/Vol] 5.62 10*3/uL Normal 3.70-11.00 [facility] Comment on above: Order Comment: Speci men Type: BLOOD SPECIMEN Ordering Facility: [facility] Address: [address] [place] [address] Performed By: #### T SCR #### [facility] CLIA [id number] [address] CONFIRM BLOOD TYPEon 023 ABO A Normal [facility] Comment on above: Order Comment: Speci men Type: BLOOD SPECIMEN Ordering Facility: [facility] Address: [address] [place] [address] Performed By: #### C ONABO #### [facility] CLIA [id number] [address] Rh Nom (Bld) Positive Normal [facility] Comment on above: Order Comment: Speci men Type: BLOOD SPECIMEN Ordering Facility: [facility] Address: [address] [place] [address] Performed By: #### C ONABO #### [facility] CLIA [id number] [address] ECG COMPLETEon 08-05-2022 ECG COMPLETE Ventricular Rate : 5 9 BPM Atrial Rate : 73 BPM P-R Interval : 188 ms QRS Duration : 122 ms Q-T Interval : 450 ms QTC Calculation(Bazett) : 445 ms Calculated P Finley : 77 degrees Calculated R Finley : -58 degrees Calculated T Finley : -39 degrees SINUS RHYTHM WITH BLOCKED PREMATURE ATRIAL COMPLEXES RIGHT BUNDLE BRANCH BLOCK LEFT ANTERIOR FASCICULAR BLOCK BIFASCICULAR BLOCK T WAVE ABNORMALITY, CONSIDER LATERAL ISCHEMIA ABNORMAL ECG NO PREVIOUS ECGS AVAILABLE Confirmed by MD HOWELL KAMALESH ([id number]) on 08/07/2022 4:32:27 PM NAME : RICH JAMES PID : [id number] : 1955 Gender : Male Race : ORD : [id number] Procedure Date : Aug 05 2022 16:43:14 Edit Date : Aug 07 2022 16:32:28 Diagnosis: SINUS RHYTHM WITH BLOCKED PREMATURE ATRIAL COMPLEXES RIGHT BUNDLE BRANCH BLOCK LEFT ANTERIOR FASCICULAR BLOCK BIFASCICULAR BLOCK T WAVE ABNORMALITY, CONSIDER LATERAL ISCHEMIA ABNORMAL ECG NO PREVIOUS ECGS AVAILABLE Confirmed by MD HOWELL KAMALESH ([id number]) on 08/07/2022 4:32:27 PM Test Reason : Arrhythmia Location : 29 : LAB POOL Overread By : MD HOWELL KAMALESH Edited By : MD HOWELL KAMALESH Referred By : AYLIN MATHEW Acquired by : LEONA STONE [facility] HISTORY PHYSICALon 3 HISTORY PHYSICAL HNO ID: [id number] Author: Aylin Mathew MD Service: Electrophysiology Author [...] August 05, 2022 TIME: 9:04 AM Normal [facility] HISTORY PHYSICAL HNO ID: [id number] Author: Nikita Ortiz APRN.DOT COMPLIANCE MANAGER Service: Electrophysiology Author Type: Nurse Practitioner Type: [...] He follows with Dr. Hylton out of [place]. Lengthy discussion was had as to what [...] tolerance as well as shortness of breath. [id number] of at least 3 secondary to age [...] Yes No Miscellaneous Medical Supply (COMPRESSION STOCKINGS) [facility] No No Sig: Use as directed (Pressure [...] Negative. Cardiova (more content not included)... Normal [facility] OPERATIVE NOon 08-05-2022 OPERATIVE NO HNO ID: [id number] Author: Aylin Mathew MD Service: Electrophysiology Author [...] usual standard sterile fashion 2 short 8 Trinidadian sheaths were placed in the right femoral vein and a long 11 Trinidadian sheath was placed in the left femoral [...] resulted in Sinus rhythm. CL 960 ms WA 155 QRS 130 RBBBB QT 436 AcuNav ice catheter was placed in the right atrium and baseline images obtained. The Lt common os was short. RIPV was small. Next the short 8 Trinidadian sheath was exchanged for a Cyn transseptal [...] and 20 mg protamine administered The 11 Trinidadian sheath in the left groin was exchanged for a short 8Fr sheath and closed with perclose, hemostasis obtained The right sided sheaths were removed and Perclose used to achieve hemostasis. Patient tolerated the procedure No complications Patient transported out of the lab in stable condition (more content not included)... Normal [facility] SARS-CoV-2 RNA Resp Ql MIKE+p robeon 08-05-2022 SARS-CoV-2 (COVID-19) RNA MIKE+probe Ql (Resp) COVID 19 RESULT: SARS-CoV-2 (Agent of COVID-19) Not Detected by RT-PCR or equivalent method. This test has been authorized by FDA under an Emergency Use Authorization (EUA). [facility] Comment on above: Performed By: #### 9 4500-6 #### [facility] CLIA [id number] [address] TYPE + SCREENon 08-05-2022 ABO A Normal [facility] Comment on above: Order Comment: Speci men Type: BLOOD SPECIMEN Ordering Facility: [facility] Address: [address] [place] [address] Performed By: #### T SCR #### [facility] [facility]LOOD BANK CLIA [id number] [address] HISTORICAL AB SCR STATUS Negative [facility] Comment on above: Order Comment: Speci men Type: BLOOD SPECIMEN Ordering Facility: [facility] Address: [address] [place] [address] Performed By: #### T SCR #### [facility] B[facility]OD [facility] CLIA [id number] [address] Rh Nom (Bld) Positive [facility] Comment on above: Order Comment: Speci men Type: BLOOD SPECIMEN Ordering Facility: [facility] Address: [address] [place] [address] Performed By: #### T SCR #### [facility] B[facility]OD [facility] CLIA [id number] [address] TYPE AND SCREEN EXPIRATION 08/08/2022 23:59 [facility] Comment on above: Order Comment: Speci men Type: BLOOD SPECIMEN Ordering Facility: [facility] Address: [address] [address] Performed By: #### T SCR #### [facility] BLOOD [facility] CLIA [id number] [address] Laboratory - CoagulationOrde red By: Dr. Hylton on 07-30-2022 INR Coag (Bld) [Relative time] 2.2 {INR} [facility] Comment on above: Critical Value > 4.0 Whole blood prothrombin time Ordered By: Dr. Hylton on 07-30-2022 PT Coag (Bld) [Time] 25.9 s 11.7-14.9 [facility] Laboratory - CoagulationOrde red By: Dr. Hylton on 07-16-2022 INR Coag (Bld) [Relative time] 2.3 {INR} [facility] Comment on above: Critical Value > 4.0 Whole blood prothrombin time Ordered By: Dr. Hylton on 07-16-2022 PT Coag (Bld) [Time] 26.6 s 11.7-14.9 [facility] CNPNon 07-08-2022 CNPN Telephone (AGCARDPOB ) RICH JAMES I ([id number]) 1955 [facility] Date Time Provider Department 07/08/22 AYLIN MATHEW [...] before the procedure. Patient will need a bus driver/monitor when released from the hospital. You will [...] Carmen Rust RN 07/11/2022 1:21 PM Signed [place] procedure board updated. BENIGNO Mensah RN 07/17/2022 11:26 AM Addendum 06/25/22- INR- 3.0 07/02/22- INR- 2.6 07/09/22 INR- 2.4 07/16/22- INR- 2.3 Next INR at [place] is scheduled for 07/23/22. Scheduled for cardioversion on 08/05/[address] Mathew. BENIGNO Tang RN 08/01/2022 10:48 AM Signed INR 07/23/22= 2.3 BENIGNO Mensah RN 08/01/2022 10:56 AM Signed Spoke with with staff at [facility]. 07/30/22 INR 2.2. She will fax result [...] Encounter Status:Closed by KIANNA CRAIG on 07/08/22 [facility] Sangeeta 07-02-2022 CNCO Letter Text [facility] Danyel 06-20-2022 BLAYNEN Telephone (AGCARDPOPeng ) RICH JAMES I ([id number]) 1955 M NFR Date Time Provider Department [...] 06/21/2022 8:56 AM Signed Left message on [employer] requesting pt return call for instructions to check INR weekly. Office phone number provided. BENIGNO Mensah RN 06/24/2022 9:50 AM Signed Spoke with pt. He voices understanding to have INRs done every week. He reports he goes to the [facility]. BENIGNO Mensah 07/04/2022 12:09 PM [...] Strong 11 days ago Got INR from [place]. We can move forward. Aylin Mathew MD Allergies As of Date: 06/20/2022 Noted Allergy Reaction SEASONAL ALLERGIES 02/18/2020 14 - Other: See Comments Date Reviewed: 05/15/2022 Reviewed by: Aylin Mathew MD - Fully Assessed Reason for Visit: [employer] Ironer - Other [3602] Primary Visit Diagnosis:Persistent atrial fibrillation (HCC) [I48.19] Order(s):SURGICAL REQUEST - ELECTIVE (02/2020) [[id number]] Order #: [id number]: 1 Prescriptions as of 07/16/2022 - fluticasone [...] daily. - Miscellaneous Medical Supply (COMPRESS[facility] STOCKINGS[facility] as directed (Pressure 30-40mmHg) to Right [...] Encounter Status:Closed by AYLIN MATHEW on 06/20/22 [facility] Absolute lymphocyte countOrd ered By: Dr. Feng on 06-11-2022 Lymphocytes Auto (Unsp spec) [#/Vol] 1.55 10*3/uL 0.83-4.51 [facility] Basophil percentageOrdered B y: Dr. Feng on 06-11-2022 Basophils/100 WBC (Bld) 0.9 % 0-1 [facility] Bilirubin [Mass/Vol] 0.50 mg/dL 0.20-1.00 [facility] Comment on above: For patients on eltr ombopag therapy, use of Dimension Shelley TBIL is not recommended. Chloride [Moles/Vol] 109 mmol/L 98-107 [facility] Cholesterol [Mass/Vol] 155 mg/dL <200 [facility] Comment on above: <200 mg/dL Desirable 200-240 mg/dL Borderline >240 mg/dL High Risk Eosinophils/100 WBC (Bld) 3.8 % 0-5 [facility] Glucose [Mass/Vol] 102 mg/dL 74-106 [facility] Comment on above: Fasting Glucose resu lt from 100 to 125 mg/dL suggests IMPAIRED HOMEOSTASIS per A.D.A. criteria. Neutrophils (Bld) [#/Vol] 3.9 10*3/uL 2.0-7.7 [facility] Neutrophils/100 WBC (Bld) 60.5 % 47-70 [facility] Potassium [Moles/Vol] 4.5 mmol/L 3.5-5.1 [facility] Protein [Mass/Vol] 7.3 g/dL 6.4-8.2 [facility] Sodium [Moles/Vol] 140 mmol/L 136-145 [facility] Triglyceride [Mass/Vol] 141 mg/dL <199 [facility] Comment on above: The drugs N-Acetylcy steine and Metamizole may falsely depress this assay.Serum Triglycerides Reference Interval Normal <150 mg/dL Borderline high 150 - 199 mg/dL High 200 - 499 mg/dL Very High > or = 500 mg/dL WBC (Bld) [#/Vol] 6.4 10*3/uL 4.4-11.0 [facility] Blood erythrocytes count (nu mber/volume)Ordered By: Dr. Feng on 06-11-2022 RBC (Bld) [#/Vol] 4.97 10*6/uL 4.6-6.2 [facility] Blood hemoglobin measurement (mass/volume)Ordered By: Dr. Feng on 06-11-2022 Hemoglobin (Bld) [Mass/Vol] 15.3 g/dL 13.0-16.5 [facility] Blood lymphocytes/100 leukoc ytesOrdered By: Dr. Feng on 06-11-2022 Lymphocytes/100 WBC (Bld) 24.3 % 19-41 [facility] Blood monocytes/100 leukocyt esOrdered By: Dr. Feng on 06-11-2022 Monocytes/100 WBC (Bld) 10.2 % 0-10 [facility] Blood platelet mean volumeOr dered By: Dr. Feng on 06-11-2022 Platelet mean volume (Bld) [Entitic vol] 9.6 fL 6.2-12.0 [facility] Determination of erythrocyte mean corpuscular volume (MCV)Ordered By: Dr. Feng on 06-11-2022 MCV (RBC) [Entitic vol] 95.4 fL 80-94 [facility] Hematocrit Auto (Bld) [Volum e fraction]Ordered By: Dr. Feng on 06-11-2022 Hematocrit (Bld) [Volume fraction] 47.4 % 40-54 [facility] INR in Blood by Coagulation assayOrdered By: Dr. Feng on 06-11-2022 INR Coag (Bld) [Relative time] 1.8 {INR} [facility] Laboratory - Chemistry and C hemistry - challengeOrdered By: Dr. Feng on 06-11-2022 ALP [Catalytic activity/Vol] 49 U/L 45-117 [facility] ALT [Catalytic activity/Vol] 30 U/L 16-61 [facility] CO2 [Moles/Vol] 27.0 mmol/L 21.0-32.0 [facility] Globulin (S) [Mass/Vol] 3.8 g/dL 2.2-4.2 [facility] Urea nitrogen/Creatinine [Mass ratio] 15.3 mg/mg 10-20 [facility] Laboratory - CoagulationOrde red By: Dr. Feng on 06-11-2022 PT Coag (PPP) [Time] 20.4 s 11.7-14.9 [facility] Laboratory - Hematology and Cell countsOrdered By: Dr. Feng on 06-11-2022 Erythrocyte distribution width (RBC) [Entitic vol] 50.8 fL 35.1-43.9 [facility] Erythrocyte distribution width (RBC) [Ratio] 14.5 % 11.6-14.6 [facility] Immature granulocytes/100 WBC (Bld) 0.300 % 0.0-0.9 [facility] Comment on above: IG% - Immature Granu locytes (promyelocytes, myelocytes and metamyelocytes) > 1% indicates that a LEFT SHIFT is Present. MCH (RBC) [Entitic mass] 30.8 pg 27.0-32.0 [facility] Nucleated RBC/100 WBC (Bld) [Ratio] 0 % 0-5 [facility] MCHC Auto (RBC) [Mass/Vol]Or dered By: Dr. Feng on 06-11-2022 MCHC (RBC) [Mass/Vol] 32.3 g/dL 32-36 [facility] No Panel InformationOrdered By: Dr. Feng on 06-11-2022 Estimated GFR (MDRD) Amer 75 mL/min >60 [facility] Comment on above: GFR Calc Estimated GFR (MDRD) Non-Af Amer 62 mL/min >60 [facility] Comment on above: Non- GFR Calc Prostate Specific Antigen Screen 0.32 ng/mL 0.00-4.00 [facility] Comment on above: This test was perfor med using the TPSA assay method for the[employer] CV chemistry system. Values obtained with differentassay methods cannot be used interchangably.When changing PSA assays in the course of monitoring apatient, additional sequential testing should be carriedout to confirm baseline values. Thyroid Stimulating Hormone (TSH) 1.66 uIU/mL 0.358-3.74 [facility] Vitamin D 25-Hydroxy 40.8 ng/mL [facility] Comment on above: Vitamin D 25(OH) Sta tus Range Deficiency <20 ng/mL (50nmol/L) Insufficiency 20 - 30 ng/mL (50 - 75 nmol/L) Sufficiency 30 - 100 ng/mL (75 - 250 nmol/L) Toxicity >100 ng/mL (>250 nmol/L) Platelets bldOrdered By: Dr. Feng on 06-11-2022 Platelets (Bld) [#/Vol] 226 10*3/uL 150-450 [facility] Serum or plasma albumin laura urement (mass/volume)Ordered By: Dr. Feng on 06-11-2022 Albumin [Mass/Vol] 3.5 g/dL 3.2-5.0 [facility] Serum or plasma albumin/glob ulin mass ratioOrdered By: Dr. Feng on 06-11-2022 Albumin/Globulin [Mass ratio] 0.9 {ratio} 0.9-2.4 [facility] Serum or plasma calcium laura urement (mass/volume)Ordered By: Dr. Feng on 06-11-2022 Calcium [Mass/Vol] 8.9 mg/dL 8.5-10.1 [facility] Serum or plasma cholesterol in HDL measurement (mass/volume)Ordered By: Dr. Feng on 06-11-2022 Cholesterol in HDL [Mass/Vol] 34 mg/dL >40 [facility] Comment on above: The drugs N-Acetylcy steine and Metamizole may falsely depress this assay. Reference Range HDL <40 mg/dL Low HDL Cholesterol HDL >or= 60 mg/dL High HDL Cholesterol Serum or plasma cholesterol in VLDL measurement (mass/volume)Ordered By: Dr. Feng on 06-11-2022 Cholesterol in VLDL [Mass/Vol] 28 mg/dL 5-40 [facility] Serum or plasma creatinine m easurement (mass/volume)Ordered By: Dr. Feng on 06-11-2022 Creatinine [Mass/Vol] 1.24 mg/dL 0.70-1.30 [facility] Comment on above: The validity of the calculated GFR & GFRAA in patients over 70 years has not been determined. Clinical correlation is essential. Serum or plasma low density lipoprotein (LDL) cholesterol measurement (mass/volume)Ordered By: Dr. Feng on 06-11-2022 Cholesterol in LDL [Mass/Vol] 93 mg/dL 0-130 [facility] Serum or plasma urea nitroge n measurement (mass/volume)Ordered By: Dr. Feng on 06-11-2022 Urea nitrogen [Mass/Vol] 19 mg/dL 7-18 [facility] Thin prep Papanicolaou smear with manual screeningOrdered By: Dr. Feng on 06-11-2022 Thin prep Papanicolaou smear with manual screening 20 U/L 15-37 [facility] Thin prep Papanicolaou smear with manual screening 4 5-15 [facility] Laboratory - CoagulationOrde red By: Dr. Hylton on 06-04-2022 INR Coag (Bld) [Relative time] 2.0 {INR} [facility] Comment on above: Critical Value > 4.0 Whole blood prothrombin time Ordered By: Dr. Hylton on 06-04-2022 PT Coag (Bld) [Time] 23.2 s 11.7-14.9 [facility] Laboratory - Coagulationon 1 07-30-2021 INR Coag (Bld) [Relative time] 2.1 {INR} [facility] Work Phone: Comment on above: Critical Value > 4.0 Whole blood prothrombin time Ordered By: Dr. Hylton on 05-30-2022 PT Coag (Bld) [Time] 24.9 s 11.7-14.9 [facility] Basophil percentageOrdered B y: Dr. Hylton on 05-23-2022 Chloride [Moles/Vol] 108 mmol/L 98-107 [facility] Glucose [Mass/Vol] 98 mg/dL 74-106 [facility] Potassium [Moles/Vol] 4.5 mmol/L 3.5-5.1 [facility] Sodium [Moles/Vol] 139 mmol/L 136-145 [facility] Laboratory - Chemistry and C hemistry - challengeOrdered By: Dr. Hylton on 05-23-2022 CO2 [Moles/Vol] 26.0 mmol/L 21.0-32.0 [facility] Urea nitrogen/Creatinine [Mass ratio] 16.0 mg/mg 10-20 [facility] Laboratory - Coagulationon 1 07-23-2021 PT Coag (PPP) [Time] 24.8 s 11.7-14.9 [facility] Work Phone: No Panel InformationOrdered By: Dr. Hylton on 05-23-2022 Estimated GFR (MDRD) Amer 75 mL/min >60 [facility] Comment on above: GFR Calc Estimated GFR (MDRD) Non-Af Amer 62 mL/min >60 [facility] Comment on above: Non- GFR Calc Serum or plasma calcium laura urement (mass/volume)Ordered By: Dr. Hylton on 05-23-2022 Calcium [Mass/Vol] 8.8 mg/dL 8.5-10.1 [facility] Serum or plasma creatinine m easurement (mass/volume)Ordered By: Dr. Hylton on 05-23-2022 Creatinine [Mass/Vol] 1.25 mg/dL 0.70-1.30 [facility] Comment on above: The validity of the calculated GFR & GFRAA in patients over 70 years has not been determined. Clinical correlation is essential. Serum or plasma urea nitroge n measurement (mass/volume)Ordered By: Dr. Hylton on 05-23-2022 Urea nitrogen [Mass/Vol] 20 mg/dL 7-18 [facility] Thin prep Papanicolaou smear with manual screeningOrdered By: Dr. Hylton on 05-23-2022 Thin prep Papanicolaou smear with manual screening 5 5-15 [facility] CNOVon 05-15-2022 CNOV Office Visit (AGCARDPOB) RICH JAMES I ([id number]) 1955 M NFR Date Time Provider Department 05/15/22 2:20 PM AYLIN MATHEW AGCARDPOB During your visit today, we recorded the following information about you: Pulse Respiration Blood pressure Weight 60/minute 18/minute 108/64 95.3 kg Height 1.778 m Keesha Vargas MA 05/15/2022 3:25 PM Signed Patient denies any cardiac issues or symptoms. Aylin Mathew MD 05/15/2022 3:25 PM Signed [facility] SECTION OF CARDIAC PACING and ELECTROPHYSIOLOGY OUTPATIENT VISIT DATE May 15, 2022 OUTPATIENT VISIT TYPE CONSULTATION PRIMARY CARE PHYSICIAN: Magen Ayon [address] [place] [address] REFERRING PHYSICIAN: No referring provider defined for this encounter. 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 Normal [facility] Laboratory - Coagulationon 1 INR Coag (Bld) [Relative time] 2.2 {INR} [facility] Work Phone: Comment on above: Critical Value > 4.0 Whole blood prothrombin time on 05-15-2022 PT Coag (Bld) [Time] 26.2 s 11.7-14.9 [facility] Work Phone: Laboratory - Coagulationon 0 04-11-2022 INR Coag (Bld) [Relative time] 2.4 {INR} [facility] Work Phone: Comment on above: Critical Value > 4.0 Whole blood prothrombin time on 04-11-2022 PT Coag (Bld) [Time] 27.8 s 11.7-14.9 [facility] Work Phone: Laboratory - Coagulationon 0 04-04-2022 INR Coag (Bld) [Relative time] 2.2 {INR} [facility] Work Phone: Comment on above: Critical Value > 4.0 Whole blood prothrombin time on 04-04-2022 PT Coag (Bld) [Time] 26.3 s 11.7-14.9 [facility] Work Phone: Basophil percentageon 2021 Chloride [Moles/Vol] 107 mmol/L 98-107 [facility] Work Phone: Glucose [Mass/Vol] 104 mg/dL 74-106 [facility] Work Phone: Comment on above: Fasting Glucose resu lt from 100 to 125 mg/dL suggests IMPAIRED HOMEOSTASIS per A.D.A. criteria. Potassium [Moles/Vol] 4.2 mmol/L 3.5-5.1 [facility] Work Phone: Sodium [Moles/Vol] 139 mmol/L 136-145 [facility] Work Phone: Laboratory - Chemistry and C hemistry - challengeon 03-29-2022 CO2 [Moles/Vol] 27.0 mmol/L 21.0-32.0 [facility] Work Phone: Urea nitrogen/Creatinine [Mass ratio] 16.3 mg/mg 10-20 [facility] Work Phone: Laboratory - Coagulationon 0 03-29-2022 PT Coag (PPP) [Time] 25.3 s 11.7-14.9 [facility] Work Phone: No Panel Informationon 03-29 Estimated GFR (MDRD) Amer 72 mL/min >60 [facility] Work Phone: Comment on above: GFR Calc Estimated GFR (MDRD) Non-Af Amer 59 mL/min >60 [facility] Work Phone: Comment on above: Non- GFR Calc Serum or plasma calcium laura urement (mass/volume)on 03-29-2022 Calcium [Mass/Vol] 9.0 mg/dL 8.5-10.1 [facility] Work Phone: Serum or plasma creatinine m easurement (mass/volume)on 03-29-2022 Creatinine [Mass/Vol] 1.29 mg/dL 0.70-1.30 [facility] Work Phone: Comment on above: The validity of the calculated GFR & GFRAA in patients over 70 years has not been determined. Clinical correlation is essential. Serum or plasma urea nitroge n measurement (mass/volume)on 03-29-2022 Urea nitrogen [Mass/Vol] 21 mg/dL 7-18 [facility] Work Phone: Thin prep Papanicolaou smear with manual screeningon 03-29-2022 Thin prep Papanicolaou smear with manual screening 5 5-15 [facility] Work Phone: Laboratory - Coagulationon 0 03-15-2022 INR Coag (Bld) [Relative time] 3.3 {INR} [facility] Work Phone: Comment on above: Critical Value > 4.0 Whole blood prothrombin time on 03-15-2022 PT Coag (Bld) [Time] 36.9 s 11.7-14.9 [facility] Work Phone: Laboratory - Coagulationon 0 12-26-2021 INR Coag (Bld) [Relative time] 2.9 {INR} [facility] Work Phone: Comment on above: Critical Value > 4.0 Whole blood prothrombin time on 12-26-2021 PT Coag (Bld) [Time] 33.3 s 11.7-14.9 [facility] Work Phone: Laboratory - Coagulationon 0 11-26-2021 INR Coag (Bld) [Relative time] 3.0 {INR} [facility] Work Phone: Comment on above: Critical Value > 4.0 Whole blood prothrombin time on 11-26-2021 PT Coag (Bld) [Time] 33.9 s 11.7-14.9 [facility] Work Phone: Laboratory - Coagulationon 0 11-05-2021 INR Coag (Bld) [Relative time] 2.2 {INR} [facility] Work Phone: Comment on above: Critical Value > 4.0 Whole blood prothrombin time on 11-05-2021 PT Coag (Bld) [Time] 25.4 s 11.7-14.9 [facility] Work Phone: Laboratory - Coagulationon 0 10-01-2021 INR Coag (Bld) [Relative time] 3.0 {INR} [facility] Work Phone: Comment on above: Critical Value > 4.0 Whole blood prothrombin time on 10-01-2021 PT Coag (Bld) [Time] 34.4 s 11.7-14.9 [facility] Work Phone: Laboratory - Coagulationon 0 08-31-2021 INR Coag (Bld) [Relative time] 2.4 {INR} [facility] Work Phone: Comment on above: Critical Value > 4.0 Whole blood prothrombin time on 08-31-2021 PT Coag (Bld) [Time] 27.9 s 11.9-14.4 [facility] Work Phone: [facility] [place] [facility] [facility] Work Phone: No Panel Information [facility] Vital Signs Date Time Vital Sign Value Performing Clinician Facility 03-04-2025 08:10-0400 Body height 177.[address] Marion Feng MD Work Phone: [facility] 03-04-2025 08:10-0400 Body mass index (BMI) [Ratio] 26.3 kg/m2 Dr. Marion Feng MD Work Phone: [facility] 03-04-2025 08:10-0400 Body temperature 98.3 [degF] Dr. Marion Feng MD Work Phone: [facility] 03-04-2025 08:10-0400 Body weight 83.[address] Marion Feng MD Work Phone: [facility] 03-04-2025 08:10-0400 Diastolic blood pressure 62 mm[Hg] Dr. Marion Feng MD Work Phone: [facility] 03-04-2025 08:10-0400 Heart rate 66 /min Dr. Marion Feng MD Work Phone: [facility] 03-04-2025 08:10-0400 SaO2% (BldA) [Mass fraction] 97 % Dr. Marion Feng MD Work Phone: [facility] 03-04-2025 08:10-0400 Systolic blood pressure 128 mm[Hg] Dr. Marion Feng MD Work Phone: [facility] 01-27-2025 10:09-0400 Body height 175.3 cm Eli Richardsoner CNC LASER OPERATOR - [employer] COMPLIANCE MANAGER Work Phone: [facility] 01-27-2025 10:09-0400 Body mass index (BMI) [Ratio] 27.02 kg/m2 Eli Manuel APRN - [employer] COMPLIANCE MANAGER Work Phone: [facility] 01-27-2025 10:09-0400 Body weight 83.01 kg Eli Manuel APRN - [employer] COMPLIANCE MANAGER Work Phone: [facility] 01-27-2025 10:09-0400 Diastolic blood pressure 90 mm[Hg] Eli Richardsonfletcher COLBERTN - [employer] COMPLIANCE MANAGER Work Phone: [facility] 01-27-2025 10:09-0400 Heart rate 48 /min Eli Manuel APRN - [employer] COMPLIANCE MANAGER Work Phone: [facility] 01-27-2025 10:09-0400 Systolic blood pressure 134 mm[Hg] Eli Richardsoner CNC LASER OPERATOR - [employer] COMPLIANCE MANAGER Work Phone: [facility] 01-14-2025 07:35-0400 Body temperature 97.3 [degF] Sarah Jeremy DO Work Phone: [facility] 01-14-2025 07:35-0400 Diastolic blood pressure 60 mm[Hg] Sarah Jeremy DO Work Phone: [facility] 01-14-2025 07:35-0400 Heart rate 57 /min Sarah Luna DO Work Phone: [facility] 01-14-2025 07:35-0400 Respiratory rate 17 /min Sarah Luna DO Work Phone: [facility] 01-14-2025 07:35-0400 SaO2% (BldA) [Mass fraction] 97 % Sarah Christyer DO Work Phone: [facility] 01-14-2025 07:35-0400 Systolic blood pressure 119 mm[Hg] Sarah Luna DO Work Phone: [facility] 01-11-2025 05:39-0400 Body mass index (BMI) [Ratio] 28.98 kg/m2 Sarah Luna DO Work Phone: [facility] 01-11-2025 05:39-0400 Body weight 89 kg Sarah Christyer DO Work Phone: [facility] 12-23-2024 10:50-0400 Body weight 83.46 kg Sarah Luna DO Work Phone: [facility] 12-23-2024 10:50-0400 Diastolic blood pressure 70 mm[Hg] Sarah Luna DO Work Phone: [facility] 12-23-2024 10:50-0400 Heart rate 47 /min Sarah Luna DO Work Phone: [facility] 12-23-2024 10:50-0400 Systolic blood pressure 130 mm[Hg] Sarah Luna DO Work Phone: [facility] 12-10-2024 07:56-0400 Body height 177.[address] Marion Feng MD Work Phone: [facility] 12-10-2024 07:56-0400 Body mass index (BMI) [Ratio] 27.1 kg/m2 Dr. Marion Feng MD Work Phone: [facility] 12-10-2024 07:56-0400 Body temperature 97.4 [degF] Dr. Mairon Feng MD Work Phone: [facility] 12-10-2024 07:56-0400 Body weight 85.[address] Marion Feng MD Work Phone: [facility] 12-10-2024 07:56-0400 Diastolic blood pressure 73 mm[Hg] Dr. Marion Feng MD Work Phone: [facility] 12-10-2024 07:56-0400 Heart rate 45 /min Dr. Marion Feng MD Work Phone: [facility] 12-10-2024 07:56-0400 Respiratory rate 18 /min Dr. Marion Feng MD Work Phone: [facility] 12-10-2024 07:56-0400 SaO2% (BldA) [Mass fraction] 97 % Dr. Marion Feng MD Work Phone: [facility] 12-10-2024 07:56-0400 Systolic blood pressure 120 mm[Hg] Dr. Marion Feng MD Work Phone: [facility] 12-02-2024 07:27-0400 Body mass index (BMI) [Ratio] 26.6 kg/m2 Dr. Marion Feng MD Work Phone: [facility] 12-02-2024 07:27-0400 Body temperature 97.5 [degF] Dr. Marion Feng MD Work Phone: [facility] 12-02-2024 07:27-0400 Body weight 84.[address] Marion Feng MD Work Phone: [facility] 12-02-2024 07:27-0400 Diastolic blood pressure 82 mm[Hg] Dr. Marion Feng MD Work Phone: [facility] 12-02-2024 07:27-0400 Heart rate 52 /min Dr. Marion Feng MD Work Phone: [facility] 12-02-2024 07:27-0400 Respiratory rate 18 /min Dr. Marion Feng MD Work Phone: [facility] 12-02-2024 07:27-0400 SaO2% (BldA) [Mass fraction] 99 % Dr. Marion Feng MD Work Phone: [facility] 12-02-2024 07:27-0400 Systolic blood pressure 144 mm[Hg] Dr. Marion Feng MD Work Phone: [facility] 09-18-2024 03:58-0500 Body mass index (BMI) [Ratio] 29.7 kg/m2 Dr. Marion Feng MD Work Phone: [facility] 07-21-2024 04:18-0500 Body mass index (BMI) [Ratio] 29.7 kg/m2 Dr. Marion Feng MD Work Phone: [facility] 04-20-2024 03:45-0400 Body mass index (BMI) [Ratio] 29.7 kg/m2 Dr. Marion Feng MD Work Phone: [facility] 10-18-2023 22:13-0400 Body mass index (BMI) [Ratio] 29.7 kg/m2 [facility] 09-18-2023 22:32-0500 Body mass index (BMI) [Ratio] 29.7 kg/m2 [facility] 08-20-2023 22:00-0500 Body mass index (BMI) [Ratio] 29.7 kg/m2 Dr. Marion Feng Work Phone: [facility] 06-20-2023 03:31-0500 Body mass index (BMI) [Ratio] 29.7 kg/m2 Dr. Marion Feng Work Phone: [facility] 06-09-2023 08:01-0500 Body height 177.[address] Marion Feng Work Phone: [facility] 06-09-2023 08:01-0500 Body mass index (BMI) [Ratio] 29.5 kg/m2 Dr. Marion Feng Work Phone: [facility] 06-09-2023 08:01-0500 Body temperature 98.1 [degF] Dr. Marion Feng Work Phone: [facility] 06-09-2023 08:01-0500 Body weight 93.[address] Marion Feng Work Phone: [facility] 06-09-2023 08:01-0500 Diastolic blood pressure 73 mm[Hg] Dr. Marion Feng Work Phone: [facility] 06-09-2023 08:01-0500 Heart rate 61 /min Dr. Marion Feng Work Phone: [facility] 06-09-2023 08:01-0500 Respiratory rate 16 /min Dr. Marion Feng Work Phone: [facility] 06-09-2023 08:01-0500 SaO2% (BldA) [Mass fraction] 97 % Dr. Marion Feng Work Phone: [facility] 06-09-2023 08:01-0500 Systolic blood pressure 114 mm[Hg] Dr. Marion Feng Work Phone: [facility] 05-05-2023 07:54-0400 Body height 177.8 cm Aylin Mathew MD Work Phone: [facility] 05-05-2023 07:54-0400 Body weight 90.72 kg Aylin Mathew MD Work Phone: [facility] 05-05-2023 07:54-0400 Diastolic blood pressure 66 mm[Hg] Aylin Mathew MD Work Phone: [facility] 05-05-2023 07:54-0400 Heart rate 52 /min Aylin Mathew MD Work Phone: [facility] 05-05-2023 07:54-0400 SaO2% (BldA) [Mass fraction] 98 % Aylin Mathew MD Work Phone: [facility] 05-05-2023 07:54-0400 Systolic blood pressure 115 mm[Hg] Aylin Mathew MD Work Phone: [facility] 04-20-2023 02:04-0400 Body mass index (BMI) [Ratio] 29.7 kg/m2 Dr. Marion Feng Work Phone: [facility] 04-03-2023 10:02-0400 Body height 177.[address] Marion Feng Work Phone: [facility] 04-03-2023 10:02-0400 Body mass index (BMI) [Ratio] 28.7 kg/m2 Dr. Marion Feng Work Phone: [facility] 04-03-2023 10:02-0400 Body weight 90.[address] Marion Feng Work Phone: [facility] 04-03-2023 10:02-0400 Diastolic blood pressure 70 mm[Hg] Dr. Marion Feng Work Phone: [facility] 04-03-2023 10:02-0400 Heart rate 50 /min Dr. Marion Feng Work Phone: [facility] 04-03-2023 10:02-0400 Respiratory rate 16 /min Dr. Marion Feng Work Phone: [facility] 04-03-2023 10:02-0400 Systolic blood pressure 120 mm[Hg] Dr. Marion Feng Work Phone: [facility] 02-18-2023 00:32-0400 Body mass index (BMI) [Ratio] 29.7 kg/m2 Dr. Marion Feng Work Phone: [facility] 01-27-2023 08:37-0400 Body weight 91.17 kg Nikita Ortiz APRN.DOT COMPLIANCE MANAGER Work Phone: [facility] 01-27-2023 08:37-0400 Diastolic blood pressure 64 mm[Hg] Nikita Ortiz APRN.DOT COMPLIANCE MANAGER Work Phone: [facility] 01-27-2023 08:37-0400 Heart rate 55 /min Nikita Ortiz APRN.DOT COMPLIANCE MANAGER Work Phone: [facility] 01-27-2023 08:37-0400 SaO2% (BldA) [Mass fraction] 96 % Nikita Ortiz APRN.DOT COMPLIANCE MANAGER Work Phone: [facility] 01-27-2023 08:37-0400 Systolic blood pressure 116 mm[Hg] Nikita Ortiz APRN.DOT COMPLIANCE MANAGER Work Phone: [facility] 01-17-2023 21:59-0400 Body mass index (BMI) [Ratio] 29.7 kg/m2 Dr. Marion Feng Work Phone: [facility] 01-16-2023 06:13-0400 Body height 177.[address] Marion Feng Work Phone: [facility] 01-16-2023 06:13-0400 Body mass index (BMI) [Ratio] 29.2 kg/m2 Dr. Marion Feng Work Phone: [facility] 01-16-2023 06:13-0400 Body temperature 98.4 [degF] Dr. Marion Feng Work Phone: [facility] 01-16-2023 06:13-0400 Body weight 92.[address] Marion Feng Work Phone: [facility] 01-16-2023 06:13-0400 Diastolic blood pressure 66 mm[Hg] Dr. Marion Feng Work Phone: [facility] 01-16-2023 06:13-0400 Heart rate 54 /min Dr. Marion Feng Work Phone: [facility] 01-16-2023 06:13-0400 Respiratory rate 18 /min Dr. Marion Feng Work Phone: [facility] 01-16-2023 06:13-0400 SaO2% (BldA) [Mass fraction] 97 % Dr. Marion Feng Work Phone: [facility] 01-16-2023 06:13-0400 Systolic blood pressure 120 mm[Hg] Dr. Marion Feng Work Phone: [facility] 2022 08:45-0400 Body mass index (BMI) [Ratio] 29.7 kg/m2 Dr. Marion Feng Work Phone: [facility] 12-02-2022 08:04-0400 Body height 177.[address] Marion Feng Work Phone: [facility] 12-02-2022 08:04-0400 Body mass index (BMI) [Ratio] 30 kg/m2 Dr. Marion Feng Work Phone: [facility] 12-02-2022 08:04-0400 Body temperature 98.2 [degF] Dr. Marion Feng Work Phone: [facility] 12-02-2022 08:04-0400 Body weight 94.[address] Marion Feng Work Phone: [facility] 12-02-2022 08:04-0400 Diastolic blood pressure 65 mm[Hg] Dr. Marion Feng Work Phone: [facility] 12-02-2022 08:04-0400 Heart rate 51 /min Dr. Marion Feng Work Phone: [facility] 12-02-2022 08:04-0400 Respiratory rate 18 /min Dr. Marion Feng Work Phone: [facility] 12-02-2022 08:04-0400 SaO2% (BldA) [Mass fraction] 96 % Dr. Marion Feng Work Phone: [facility] 12-02-2022 08:04-0400 Systolic blood pressure 120 mm[Hg] Dr. Marion Feng Work Phone: [facility] 10-19-2022 00:11-0400 Body mass index (BMI) [Ratio] 29.7 kg/m2 Dr. Marion Feng Work Phone: [facility] 10-03-2022 09:06-0400 Body height 177.[address] Marion Feng Work Phone: [facility] 10-03-2022 09:06-0400 Body mass index (BMI) [Ratio] 30.7 kg/m2 Dr. Marion Feng Work Phone: [facility] 10-03-2022 09:06-0400 Body weight 97.[address] Marion Feng Work Phone: [facility] 10-03-2022 09:06-0400 Diastolic blood pressure 66 mm[Hg] Dr. Marion Feng Work Phone: [facility] 10-03-2022 09:06-0400 Heart rate 52 /min Dr. Marion Feng Work Phone: [facility] 10-03-2022 09:06-0400 Respiratory rate 18 /min Dr. Marion Feng Work Phone: [facility] 10-03-2022 09:06-0400 SaO2% (BldA) [Mass fraction] 93 % Dr. Marion Feng Work Phone: [facility] 10-03-2022 09:06-0400 Systolic blood pressure 120 mm[Hg] Dr. Marion Feng Work Phone: [facility] 09-17-2022 20:02-0500 Body mass index (BMI) [Ratio] 29.7 kg/m2 Dr. Marion Feng Work Phone: [facility] 08-21-2022 08:11-0500 Body mass index (BMI) [Ratio] 29.7 kg/m2 Dr. Marion Feng Work Phone: [facility] 07-21-2022 02:05-0500 Body mass index (BMI) [Ratio] 29.7 kg/m2 Dr. Marion Feng Work Phone: [facility] 07-17-2022 06:52-0500 Body height 177.[address] Marion Feng Work Phone: [facility] 07-17-2022 06:52-0500 Body mass index (BMI) [Ratio] 31.1 kg/m2 Dr. Marion Feng Work Phone: [facility] 07-17-2022 06:52-0500 Body temperature 95.6 [degF] Dr. Marion Feng Work Phone: [facility] 07-17-2022 06:52-0500 Body weight 98.[address] Marion Feng Work Phone: [facility] 07-17-2022 06:52-0500 Diastolic blood pressure 62 mm[Hg] Dr. Marion Feng Work Phone: [facility] 07-17-2022 06:52-0500 Heart rate 81 /min Dr. Marion Feng Work Phone: [facility] 07-17-2022 06:52-0500 Respiratory rate 18 /min Dr. Marion Feng Work Phone: [facility] 07-17-2022 06:52-0500 SaO2% (BldA) [Mass fraction] 95 % Dr. Marion Feng Work Phone: [facility] 07-17-2022 06:52-0500 Systolic blood pressure 103 mm[Hg] Dr. Marion Feng Work Phone: [facility] 06-28-2022 09:37-0500 Body mass index (BMI) [Ratio] 31.2 kg/m2 Dr. Marion Feng Work Phone: [facility] 06-28-2022 09:37-0500 Body weight 98.[address] Marion Feng Work Phone: [facility] 06-28-2022 09:37-0500 Diastolic blood pressure 84 mm[Hg] Dr. Marion Feng Work Phone: [facility] 06-28-2022 09:37-0500 Heart rate 74 /min Dr. Marion Feng Work Phone: [facility] 06-28-2022 09:37-0500 Respiratory rate 18 /min Dr. Marion Feng Work Phone: [facility] 06-28-2022 09:37-0500 SaO2% (BldA) [Mass fraction] 98 % Dr. Marion Feng Work Phone: [facility] 06-28-2022 09:37-0500 Systolic blood pressure 131 mm[Hg] Dr. Marion Feng Work Phone: [facility] 06-19-2022 23:04-0500 Body mass index (BMI) [Ratio] 29.7 kg/m2 Dr. Marion Feng Work Phone: [facility] 06-12-2022 08:02-0500 Body temperature 98.1 [degF] Dr. Marion Feng Work Phone: [facility] 06-12-2022 08:02-0500 Body weight 99.[address] Marion Feng Work Phone: [facility] 06-12-2022 08:02-0500 Diastolic blood pressure 75 mm[Hg] Dr. Marion Feng Work Phone: [facility] 06-12-2022 08:02-0500 Heart rate 67 /min Dr. Marion Feng Work Phone: [facility] 06-12-2022 08:02-0500 Respiratory rate 16 /min Dr. Marion Feng Work Phone: [facility] 06-12-2022 08:02-0500 SaO2% (BldA) [Mass fraction] 97 % Dr. Marion Feng Work Phone: [facility] 06-12-2022 08:02-0500 Systolic blood pressure 131 mm[Hg] Dr. Marion Feng Work Phone: [facility] 06-04-2022 10:58-0500 Body height 177.[address] Marion Feng Work Phone: [facility] Work Phone: 06-04-2022 10:58-0500 Body weight 95.[address] Marion Feng Work Phone: [facility] 06-03-2022 08:48-0500 Body mass index (BMI) [Ratio] 31.1 kg/m2 Dr. Marion Feng Work Phone: [facility] 05-21-2022 09:50-0400 Body mass index (BMI) [Ratio] 29.7 kg/m2 Dr. Marion Feng Work Phone: [facility] 05-15-2022 14:30-0400 Body height 177.8 cm Aylin Mathew MD Work Phone: [facility] 05-15-2022 14:30-0400 Body weight 95.25 kg Aylin Mathew MD Work Phone: [facility] 05-15-2022 14:30-0400 Diastolic blood pressure 64 mm[Hg] Aylin Mathew MD Work Phone: [facility] 05-15-2022 14:30-0400 Heart rate 60 /min Aylin Mathew MD Work Phone: [facility] 05-15-2022 14:30-0400 Respiratory rate 18 /min Aylin Mathew MD Work Phone: [facility] 05-15-2022 14:30-0400 SaO2% (BldA) [Mass fraction] 96 % Aylin Mathew MD Work Phone: [facility] 05-15-2022 14:30-0400 Systolic blood pressure 108 mm[Hg] Aylin Mathew MD Work Phone: [facility] 04-19-2022 21:21-0400 Body mass index (BMI) [Ratio] 29.7 kg/m2 Dr. Marion Feng Work Phone: [facility] Work Phone: 04-04-2022 11:13-0400 Body height 177.[address] Marion Feng Work Phone: [facility] Work Phone: 04-04-2022 11:13-0400 Body weight 95.[address] Marion Feng Work Phone: [facility] Work Phone: 04-03-2022 07:38-0400 Body mass index (BMI) [Ratio] 30.2 kg/m2 Dr. Marion Feng Work Phone: [facility] Work Phone: 03-29-2022 09:51-0400 Body mass index (BMI) [Ratio] 30.2 kg/m2 Dr. Marion Feng Work Phone: [facility] Work Phone: 03-29-2022 09:51-0400 Body weight 95.[address] Marion Feng Work Phone: [facility] Work Phone: 03-29-2022 09:51-0400 Diastolic blood pressure 69 mm[Hg] Dr. Marion Feng Work Phone: [facility] Work Phone: 03-29-2022 09:51-0400 Heart rate 51 /min Dr. Marion Feng Work Phone: [facility] Work Phone: 03-29-2022 09:51-0400 Respiratory rate 18 /min Dr. Marion Feng Work Phone: [facility] Work Phone: 03-29-2022 09:51-0400 Systolic blood pressure 107 mm[Hg] Dr. Marion Feng Work Phone: [facility] Work Phone: 03-20-2022 22:52-0400 Body mass index (BMI) [Ratio] 29.7 kg/m2 Dr. Marion Feng Work Phone: [facility] Work Phone: 03-08-2022 13:42-0400 Body height 177.[address] Marion Feng Work Phone: [facility] Work Phone: 03-08-2022 13:42-0400 Body mass index (BMI) [Ratio] 30.8 kg/m2 Dr. Marion Feng Work Phone: [facility] Work Phone: 03-08-2022 13:42-0400 Body weight 97.[address] Marion Feng Work Phone: [facility] Work Phone: 03-08-2022 13:42-0400 Diastolic blood pressure 62 mm[Hg] Dr. Marion Feng Work Phone: [facility] Work Phone: 03-08-2022 13:42-0400 Heart rate 82 /min Dr. Marion Feng Work Phone: [facility] Work Phone: 03-08-2022 13:42-0400 Respiratory rate 16 /min Dr. Marion Feng Work Phone: [facility] Work Phone: 03-08-2022 13:42-0400 Systolic blood pressure 111 mm[Hg] Dr. Marion Feng Work Phone: [facility] Work Phone: 01-18-2022 06:55-0400 Body mass index (BMI) [Ratio] 29.7 kg/m2 Dr. Marion Feng Work Phone: [facility] Work Phone: 01-16-2022 05:47-0400 Body height 177.[address] Marion Feng Work Phone: [facility] Work Phone: 01-16-2022 05:47-0400 Body mass index (BMI) [Ratio] 30.8 kg/m2 Dr. Marion Feng Work Phone: [facility] Work Phone: 01-16-2022 05:47-0400 Body temperature 98.2 [degF] Dr. Marion Feng Work Phone: [facility] Work Phone: 01-16-2022 05:47-0400 Body weight 97.[address] Marion Feng Work Phone: [facility] Work Phone: 01-16-2022 05:47-0400 Diastolic blood pressure 87 mm[Hg] Dr. Marion Feng Work Phone: [facility] Work Phone: 01-16-2022 05:47-0400 Heart rate 98 /min Dr. Marion Feng Work Phone: [facility] Work Phone: 01-16-2022 05:47-0400 Respiratory rate 17 /min Dr. Marion Feng Work Phone: [facility] Work Phone: 01-16-2022 05:47-0400 SaO2% (BldA) [Mass fraction] 97 % Dr. Marion Feng Work Phone: [facility] Work Phone: 01-16-2022 05:47-0400 Systolic blood pressure 116 mm[Hg] Dr. Marion Feng Work Phone: [facility] Work Phone: 12-18-2021 20:37-0400 Body mass index (BMI) [Ratio] 29.7 kg/m2 Dr. Marion Feng Work Phone: [facility] Work Phone: 11-28-2021 08:04-0400 Body mass index (BMI) [Ratio] 30.9 kg/m2 Dr. Marion Feng Work Phone: [facility] Work Phone: 11-28-2021 08:04-0400 Body temperature 97.2 [degF] Dr. Marion Feng Work Phone: [facility] Work Phone: 11-28-2021 08:04-0400 Body weight 97.[address] Marion Feng Work Phone: [facility] Work Phone: 11-28-2021 08:04-0400 Diastolic blood pressure 60 mm[Hg] Dr. Marion Feng Work Phone: [facility] Work Phone: 11-28-2021 08:04-0400 Heart rate 51 /min Dr. Marion Feng Work Phone: [facility] Work Phone: 11-28-2021 08:04-0400 Respiratory rate 16 /min Dr. Marion Feng Work Phone: [facility] Work Phone: 11-28-2021 08:04-0400 SaO2% (BldA) [Mass fraction] 99 % Dr. Marion Feng Work Phone: [facility] Work Phone: 11-28-2021 08:04-0400 Systolic blood pressure 110 mm[Hg] Dr. Marion Feng Work Phone: [facility] Work Phone: 11-28-2021 08:04-0400 Body height 177.[address] Marion Feng Work Phone: [facility] Work Phone: 11-28-2021 08:04-0400 Body mass index (BMI) [Ratio] 30.9 kg/m2 Dr. Marion Feng Work Phone: [facility] Work Phone: 11-28-2021 08:04-0400 Body temperature 97.2 [degF] Dr. Marion Feng Work Phone: [facility] Work Phone: 11-28-2021 08:04-0400 Body weight 97.[address] Marion Feng Work Phone: [facility] Work Phone: 11-28-2021 08:04-0400 Diastolic blood pressure 60 mm[Hg] Dr. Marion Feng Work Phone: [facility] Work Phone: 11-28-2021 08:04-0400 Heart rate 51 /min Dr. Marion Feng Work Phone: [facility] Work Phone: 11-28-2021 08:04-0400 Respiratory rate 16 /min Dr. Marion Feng Work Phone: [facility] Work Phone: 11-28-2021 08:04-0400 SaO2% (BldA) [Mass fraction] 99 % Dr. Marion Feng Work Phone: [facility] Work Phone: 11-28-2021 08:04-0400 Systolic blood pressure 110 mm[Hg] Dr. Marion Feng Work Phone: [facility] Work Phone: 11-18-2021 03:03-0400 Body mass index (BMI) [Ratio] 29.7 kg/m2 Dr. Marion Feng Work Phone: [facility] Work Phone: 10-01-2021 10:35-0400 Body mass index (BMI) [Ratio] 31.4 kg/m2 Dr. Marion Feng Work Phone: [facility] Work Phone: 10-01-2021 10:35-0400 Body temperature 98.6 [degF] Dr. Marion Feng Work Phone: [facility] Work Phone: 10-01-2021 10:35-0400 Body weight 99.[address] Marion Feng Work Phone: [facility] Work Phone: 10-01-2021 10:35-0400 Diastolic blood pressure 73 mm[Hg] Dr. Marion Feng Work Phone: [facility] Work Phone: 10-01-2021 10:35-0400 Heart rate 79 /min Dr. Marion Feng Work Phone: [facility] Work Phone: 10-01-2021 10:35-0400 Respiratory rate 17 /min Dr. Marion Feng Work Phone: [facility] Work Phone: 10-01-2021 10:35-0400 SaO2% (BldA) [Mass fraction] 98 % Dr. Marion Feng Work Phone: [facility] Work Phone: 10-01-2021 10:35-0400 Systolic blood pressure 110 mm[Hg] Dr. Marion Feng Work Phone: [facility] Work Phone: 10-01-2021 10:35-0400 Body height 177.[address] Marion Feng Work Phone: [facility] Work Phone: 10-01-2021 10:35-0400 Body mass index (BMI) [Ratio] 31.4 kg/m2 Dr. Marion Feng Work Phone: [facility] Work Phone: 10-01-2021 10:35-0400 Body temperature 98.6 [degF] Dr. Marion Feng Work Phone: [facility] Work Phone: 10-01-2021 10:35-0400 Body weight 99.[address] Marion Feng Work Phone: [facility] Work Phone: 10-01-2021 10:35-0400 Diastolic blood pressure 73 mm[Hg] Dr. Marion Feng Work Phone: [facility] Work Phone: 10-01-2021 10:35-0400 Heart rate 79 /min Dr. Marion Feng Work Phone: [facility] Work Phone: 10-01-2021 10:35-0400 Respiratory rate 17 /min Dr. Marion Feng Work Phone: [facility] Work Phone: 10-01-2021 10:35-0400 SaO2% (BldA) [Mass fraction] 98 % Dr. Marion Feng Work Phone: [facility] Work Phone: 10-01-2021 10:35-0400 Systolic blood pressure 110 mm[Hg] Dr. Marion Feng Work Phone: [facility] Work Phone: 09-18-2021 00:09-0500 Body mass index (BMI) [Ratio] 29.7 kg/m2 Dr. Marion Feng Work Phone: [facility] Work Phone: 09-17-2021 23:09-0500 Body mass index (BMI) [Ratio] 29.7 kg/m2 Dr. Marion Feng Work Phone: [facility] Work Phone: 09-07-2021 13:25-0500 Body weight 98.[address] Marion Feng Work Phone: [facility] Work Phone: 09-07-2021 13:25-0500 Diastolic blood pressure 61 mm[Hg] Dr. Marion Feng Work Phone: [facility] Work Phone: 09-07-2021 13:25-0500 Heart rate 48 /min Dr. Marion Feng Work Phone: [facility] Work Phone: 09-07-2021 13:25-0500 Respiratory rate 18 /min Dr. Marion Feng Work Phone: [facility] Work Phone: 09-07-2021 13:25-0500 Systolic blood pressure 98 mm[Hg] Dr. Marion Feng Work Phone: [facility] Work Phone: 07-20-2021 23:09-0500 Body mass index (BMI) [Ratio] 29.7 kg/m2 Dr. Marion Feng Work Phone: [facility] Work Phone: 01-16-2021 11:25-0400 Body mass index (BMI) [Ratio] 29.7 kg/m2 Dr. Marion Feng Work Phone: [facility] Work Phone: 08-30-2020 08:55-0500 Body mass index (BMI) [Ratio] 29.8 kg/m2 Dr. Marion Feng Work Phone: [facility] Work Phone: NEGATED: Highlighted [id number] 12:35-0500 BMI (Body Mass Index) 30.52 kg/m2 [facility] Work Phone: NEGATED: Highlighted [id number] 12:35-0500 Body weight 90.72 kg Keturah Degarmo RT [facility] Work Phone: NEGATED: Highlighted [id number] 12:35-0500 Body weight 91 kg Keturah Degarmo RT [facility] Work Phone: NEGATED: Highlighted [id number] 12:35-0500 Height 172.72 cm Keturah Degarmo RT [facility] Work Phone: NEGATED: Highlighted [id number] 12:35-0500 Height 173 cm Keturah Degarmo RT [facility] Work Phone: Encounters Encounter Date Encounter Type Care Provider Facility Start: 03-04-2025 End: 03-04-[address] Marion eFng MD Work Phone: [facility] Start: 03-04-2025 End: 03-04-2025 Patient encounter procedure Renny Mora PA -[facility] Work Phone: Start: 01-27-2025 End: 01-27-2025 Postop follow up visit related to original px Eli Manuel CNC LASER OPERATOR - DOT COMPLIANCE MANAGER Work Phone: [facility] Thor[facility] - [place] Comment on above: Lung nodule (Primary Dx) Start: 01-27-2025 End: 01-27-[address] [facility] Start: 01-18-2025 ambulatory Marion Feng Facility :[facility] Start: 01-17-2025 End: 01-17-[address] Marion Feng MD Work Phone: -Laboratory Start: 01-17-2025 End: 01-17-2025 Discharged Recurring Kassy Stack PA -Laboratory Work Phone: Start: 01-10-2025 End: 01-14-2025 Evaluation and management of inpatient Sarah Luna DO Work Phone: [facility] Surgical Progressive Care Unit PCU H6 Comment on above: S/P thoracotomy (Mignon dianne Dx); Lung nodule; Solitary pulmonary nodule Start: 12-30-2024 ambulatory Marion Feng Facility :[facility] Start: 12-29-2024 End: 12-29-2024 ambulatory SARAH Start: 12-29-2024 End: 12-29-2024 Encounter for other preprocedural examination SARAH Start: 12-24-2024 End: 12-24-2024 Admission to same day surgery center Dong Adam CNC LASER OPERATOR - DOT COMPLIANCE MANAGER Work Phone: [facility] [place] Comment on above: Lung nodule (Primary Dx) Start: 12-24-2024 End: 12-24-2024 ambulatory Dong Adam CNC LASER OPERATOR - DOT COMPLIANCE MANAGER Work Phone: [facility] [place] Start: 12-24-2024 End: 12-24-2024 Telephone encounter Sarah Luna DO Work Phone: [facility] [place] Comment on above: Surgery Scheduling Start: 12-23-2024 End: 12-23-2024 Office consultation new/estab patient 60 min Sarah Christyfletcher KAY Work Phone: [facility] [place] Comment on above: Right upper lobe pul monary nodule (Primary Dx); Chronic obstructive pulmonary disease, unspecified COPD type (HCC); Paroxysmal atrial fibrillation (HCC); 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); Warfarin anticoagulation; Former smoker Start: 12-23-2024 End: 12-23-2024 ambulatory SARAH Start: 12-10-2024 End: 12-10-2024 Patient encounter procedure Kylie SALAZARC -[facility] Work Phone: Start: 12-10-2024 End: 12-10-2024 ambulatory Marion Feng Facility:[facility] Start: 12-07-2024 End: 12-07-[address] Marion Feng MD Work Phone: [facility] Work Phone: Start: 12-07-2024 End: 12-07-2024 Patient encounter procedure Kylie Motta CARDIAC RN-C -[facility] Start: 12-07-2024 End: 12-07-2024 ambulatory Kylie Motta CARDIAC RN Facility:[facility] Start: 12-02-2024 End: 12-02-2024 Patient encounter procedure Kylie Motta NP-C -[facility] Work Phone: Start: 12-02-2024 End: 12-02-[address] Marion Feng MD Work Phone: [facility] Work Phone: Start: 11-18-2024 ambulatory Hi Swanson CARDIAC RN Facility :[facility] Start: 11-17-2024 End: 11-17-2024 ambulatory Hi Swanson CARDIAC RN Facility:[facility] Start: 11-17-2024 End: 11-17-[address] Jose Hylton MD -Laboratory Work Phone: Start: 11-17-2024 End: 11-17-2024 Patient encounter procedure Kylie Motta CARDIAC RN-C -[facility] Work Phone: Start: 11-17-2024 End: 11-17-2024 ambulatory Kylie Motta CARDIAC RN [facility] [facility] Start: 10-19-[address] Jose Hylton MD -Laboratory Work Phone: Start: 10-19-2024 End: 10-19-[address] Marion Feng MD Work Phone: [facility] Work Phone: Start: 10-19-2024 End: 10-19-2024 Patient encounter procedure Kylie Motta NP-C -Pulmonary Services/Neurology Work Phone: Start: 10-19-2024 End: 10-19-2024 ambulatory Kylie Motta CARDIAC RN Facility:[facility] Start: 09-02-2024 End: 09-17-[address] Jose Hylton MD -Laboratory Work Phone: Start: 09-02-2024 End: 09-17-2024 ambulatory Hi Swanson CARDIAC RN Facility:[facility] Start: 07-15-2024 End: 07-15-[address] Jose Hylton MD -Laboratory Work Phone: Start: 07-15-2024 End: 07-15-2024 ambulatory Hi Swanson CARDIAC RN Facility:[facility] Start: 04-19-2024 End: 04-19-2024 ambulatory Hi Swanson CARDIAC RN Facility:[facility] Start: 03-15-2024 End: 03-15-2024 ambulatory Marion Feng Facility:[facility] Start: 11-17-2023 End: 11-18-2023 Discharged Recurring [facility]-Laboratory Work Phone: Start: 11-17-2023 End: 11-18-2023 ambulatory [facility] Work Phone: Start: 11-17-2023 End: 11-17-2023 Patient encounter procedure [facility]-Cat Scan, [facility] Work Phone: Start: 10-03-2023 End: 10-18-2023 ambulatory [facility] Work Phone: Start: 10-03-2023 End: 10-18-2023 Discharged Recurring [facility]-Laboratory Work Phone: Start: 08-25-2023 End: 09-18-[address] Marion Feng Work Phone: [facility] Work Phone: Start: 08-25-2023 End: 09-18-[address] Marion Feng Work Phone: [facility]-Laboratory Work Phone: Start: 07-22-2023 End: 07-22-[address] Marion Feng Work Phone: [facility] Work Phone: Start: 07-22-2023 End: 07-22-[address] [facility] Work Phone: Start: 06-09-2023 End: 06-09-[address] Marion Feng Work Phone: [facility] Work Phone: Start: 05-23-2023 End: 06-19-[address] Marion Feng Work Phone: [facility] Work Phone: Start: 05-05-2023 End: 05-05-2023 ambulatory AYLIN MATHEW Facility:[facility] Start: 05-05-2023 End: 05-05-2023 Patient encounter procedure Aylin Mathew MD Work Phone: [facility] Cardiology [facility] Comment on above: Persistent atrial fi brillation (HCC) (Primary Dx) Start: 04-03-2023 End: 04-03-[address] Marion Feng Work Phone: [facility] Work Phone: Start: 04-02-2023 End: 04-02-[address] Marion Feng Work Phone: [facility] Work Phone: Start: 04-02-2023 End: 04-02-[address] Marion Feng Work Phone: [facility] Work Phone: Start: 02-06-2023 End: 02-17-[address] Marion Feng Work Phone: [facility] Work Phone: Start: 01-27-2023 End: 01-27-2023 ambulatory NIKITA ORTIZ [facility] Start: 01-27-2023 End: 01-27-2023 Patient encounter procedure Nikita Linardi CNC LASER OPERATOR.DOT COMPLIANCE MANAGER Work Phone: [facility] Cardiology [facility] Comment on above: Persistent atrial fi brillation (HCC) (Primary Dx); Status post catheter ablation of atrial fibrillation; Sinus bradycardia; Obesity, Class I, BMI 30-34.9; At risk for stroke Start: 01-16-2023 End: 01-16-[address] Marion Feng Work Phone: [facility] Work Phone: Start: 01-16-2023 End: 01-16-[address] Marion Feng Work Phone: [facility]-Laboratory Work Phone: Start: 01-16-2023 End: 01-16-[address] Marion Feng Work Phone: [facility]-Pulmonary Medicine [facility] Work Phone: Start: 12-02-2022 End: 12-18-[address] Marion Feng Work Phone: [facility] Work Phone: Start: 12-02-2022 End: 12-18-[address] Marion Feng Work Phone: [facility]-Laboratory Start: 12-02-2022 End: 12-02-[address] Marion Feng Work Phone: [facility] Int Med at [facility] Start: 11-20-2022 Telephone encounter Aylin Mathew MD Work Phone: [facility] Cardiology Mickie Comment on above: Patient Update Start: 11-19-2022 Telephone encounter Aylin Mathew MD Work Phone: [facility] Cardiology [place] Comment on above: Results; Care Coordi nator - Other Start: 11-07-2022 Telephone encounter Aylin Mathew MD Work Phone: [facility] Comment on above: Results Start: 11-05-2022 End: 11-05-2022 ambulatory NIKITA ORTIZ Facility[facility] Start: 11-05-2022 ambulatory BRYANNUNU MATHEW Facility [facility] Start: 11-05-2022 End: 11-05-2022 Subsequent hospital visit by physician Ekg/Holter/Event Monitor [facility] Comment on above: Persistent atrial fi brillation (HCC) [I48.19] Start: 10-15-2022 Non-patient / Non-visit Dr. Alanis Feng Work Phone: [facility] Start: 10-14-2022 End: 10-14-[address] Marion Feng Work Phone: [facility] Work Phone: Start: 10-14-2022 End: 10-14-[address] Marion Feng Work Phone: [facility] Start: 10-03-2022 End: 10-03-[address] Marion Feng Work Phone: [facility] Start: 10-03-2022 End: 10-18-[address] Marion Feng Work Phone: [facility] Work Phone: Start: 10-03-2022 End: 10-18-[address] Marion Feng Work Phone: [facility]-Laboratory Start: 10-03-[address] Marion Feng Work Phone: [facility]-Laboratory Start: 09-13-2022 End: 09-13-[address] Marion Feng Work Phone: [facility] Work Phone: Start: 09-13-2022 End: 09-13-[address] Marion Feng Work Phone: [facility]-Laboratory Start: 08-05-2022 End: 08-06-2022 ambulatory AYLIN MATHEW Facility[facility] Start: 07-30-2022 End: 07-30-[address] Marion Feng Work Phone: [facility]-Laboratory Start: 07-17-2022 End: 07-17-[address] Marion Feng Work Phone: [facility]-Pulmonary Medicine [facility] Start: 07-16-2022 End: 07-16-[address] Marion Feng Work Phone: [facility]-Laboratory Start: 07-08-2022 Telephone encounter Aylin Mathew MD Work Phone: [facility] Cardiology [place]ie Comment on above: Preparations For Pro cedures Start: 06-28-2022 End: 06-28-[address] Marion Feng Work Phone: [facility] Start: 06-20-2022 Telephone encounter Aylin Mathew MD Work Phone: [facility] Cardiology [facility] Comment on above: [employer] - [employer] ther Start: 06-12-2022 End: 06-12-[address] Marion Feng Work Phone: [facility] Start: 06-11-2022 End: 06-11-[address] Marion Feng Work Phone: [facility] Start: 06-11-2022 End: 06-19-[address] Marion Feng Work Phone: [facility]-Laboratory Start: 06-04-2022 Non-patient / Non-visit Dr. Alanis Feng Work Phone: [facility] Start: 06-04-2022 End: 06-04-2022 Admission to same day surgery center Dr. Marion Feng Work Phone: [facility]-Safety Manager/Special Procedures Start: 06-04-2022 End: 06-04-[address] Marion Feng Work Phone: [facility] Work Phone: Start: 06-03-2022 Non-patient / Non-visit Dr. Alanis Feng Work Phone: [facility] Start: 05-30-[address] Marion Feng Work Phone: [facility]-Laboratory Start: 05-15-2022 End: 05-15-2022 ambulatory YALIN MATHEW Facility:[facility] Start: 05-15-2022 End: 05-15-2022 Patient encounter procedure Aylin Mathew MD Work Phone: [facility] Cardiology [place] Comment on above: Persistent atrial fi brillation (HCC) (Primary Dx) Start: 05-15-2022 End: 05-15-[address] Marion Feng Work Phone: [facility] Work Phone: Start: 05-15-2022 End: 05-15-[address] Marion Feng Work Phone: [facility]-Laboratory Start: 04-11-2022 End: 04-11-[address] Marion Feng Work Phone: [facility] Work Phone: Start: 04-11-2022 End: 04-11-[address] Marion Feng Work Phone: [facility]-Laboratory Start: 04-11-2022 End: 04-11-[address] Marion Feng Work Phone: [facility] Start: 04-04-2022 Non-patient / Non-visit Dr. Alanis Feng Work Phone: [facility] Start: 04-04-[address] Marion Feng Work Phone: [facility]-Laboratory Start: 04-04-2022 End: 04-04-2022 Admission to same day surgery center Dr. Marion Feng Work Phone: [facility]-Safety Manager/Special Procedures Start: 04-04-2022 End: 04-04-[address] Marion Feng Work Phone: [facility] Work Phone: Start: 03-29-2022 End: 03-29-[address] Marion Feng Work Phone: [facility] Start: 03-15-2022 End: 03-15-[address] Marion Feng Work Phone: [facility] Work Phone: Start: 03-15-2022 End: 03-15-[address] Marion Feng Work Phone: [facility]-Laboratory Start: 03-08-2022 End: 03-08-[address] Marion Feng Work Phone: [facility] Start: 01-18-2022 ambulatory [facility]EVIN [facility] Start: 01-16-2022 End: 01-16-[address] [facility] Start: 12-26-2021 End: 12-26-[address] Marion Feng Work Phone: [facility]-Laboratory Start: 12-26-[address] Marion Feng Work Phone: [facility]-Laboratory Start: 12-26-2021 End: 12-26-[address] Marion Feng Work Phone: [facility]-Cat Scan, [facility] Start: 11-28-2021 End: 11-28-[address] Marion Feng Work Phone: [facility] Internal Medicine Start: 11-26-2021 End: 11-26-[address] Marion Feng Work Phone: [facility]-Laboratory Start: 11-08-2021 End: 01-17-2022 ambulatory KEVIN [facility] Start: 11-05-2021 End: 11-05-[address] Marion Feng Work Phone: [facility] Start: 10-01-2021 Non-patient / Non-visit Dr. Alanis Feng Work Phone: [facility] Start: 10-01-2021 End: 10-01-[address] Marion Feng Work Phone: [facility]-Cardiovascular Services Start: 10-01-2021 End: 10-01-[address] Marion Feng Work Phone: [facility]-Pulmonary Medicine [facility] Start: 09-15-2021 End: 09-15-[address] Marion Feng Work Phone: [facility] Start: 09-07-[address] Jasmin Feng Work Phone: [facility] Comment on above: Scheduled for left s houlder rotator cuff repair on October 24, 2021. Will need bridged with lovenox Start: 09-07-2021 End: 09-07-[address] Marion Feng Work Phone: [facility] Start: 08-31-2021 End: 09-17-[address] Marion Feng Work Phone: [facility] [place] Start: 06-01-2020 End: 06-01-2020 Patient encounter procedure Mitchell Hernandez MD Work Phone: [facility] Work Phone: Procedures Date Procedure Procedure Detail Performing Clinician Start: 01-14-2025 Radiologic exam ches t single view Eli Manuel CNC LASER OPERATOR - DOT COMPLIANCE MANAGER Work Phone: Start: 01-14-2025 Basic metabolic pane l calcium total Leona Judge Albert CNC LASER OPERATOR - DOT COMPLIANCE MANAGER Work Phone: Start: 01-13-2025 Radiologic exam ches t single view Eli Manuel CNC LASER OPERATOR - DOT COMPLIANCE MANAGER Work Phone: Start: 01-13-2025 Radiologic exam ches t single view Sarah Jeremy DO Work Phone: Start: 01-13-2025 Basic metabolic pane l calcium total Leona Nu Price CNC LASER OPERATOR - DOT COMPLIANCE MANAGER Work Phone: Start: 01-12-2025 Radiologic exam ches t single view Sarah Christyer DO Work Phone: Start: 01-12-2025 Basic metabolic pane l calcium total Leona Quintanillakaylayariel CNC LASER OPERATOR - DOT COMPLIANCE MANAGER Work Phone: Start: 01-11-2025 Radiologic exam ches [...] Work Phone: Start: 01-10-2025 Prothrombin time Dominick Lobo CNC LASER OPERATOR - DOT COMPLIANCE MANAGER Work Phone: Start: 12-29-2024 Antibody screen SARAH LUNA Comment on above: Performed By: #### L [id number] ####[employer]: APOLONIA PADILLA ([phone])[facility] BLOOD [facility] ([facility])[address] [place] [address] Start: 12-07-2024 Positron emission tomography with computed tomography Dr. Marion Feng MD Work Phone: Start: 11-17-[address] Marion Feng MD Work Phone: Start: 11-17-2023 CT of chest Start: 05-05-2023 Ecg routine ecg w/le ast 12 lds w/i&r Aylin Mathew MD Work Phone: Start: 01-27-2023 Ecg routine ecg w/le ast 12 lds w/i&r Nikita Ortiz APRN.DOT COMPLIANCE MANAGER Work Phone: Start: 11-05-2022 Xtrnl ecg & 48 hr recording Aylin Mathew MD Work Phone: Start: 10-14-2022 CT angiography of ch est with contrast Dr. Marion Feng Work Phone: Start: 08-05-2022 Antibody screen BRYAN MATHEW Comment on above: Order Comment: Speci men Type: BLOOD SPECIMEN Ordering Facility: [facility] Address: [address] [place], [place] [id number] Performed By: #### T SCR #### [facility] BLOOD [facility] [id number] [address] [place] [address] STATES OF [facility] Start: 05-15-2022 Ecg routine ecg w/le ast [...] Activity Detail Author Start: 05-05-2027 Colonoscopy COLONOSCOPY [facility] Start: 05-05-2027 COLORECTAL CANCER SCREENING COLORECTAL CANCER SCREENING [facility] Start: 05-05-2027 Screening for malignant neoplasm of colon [facility] Start: 08-05-2025 DIABETES SCREEN DIABETES SCREEN [facility] Start: 08-05-2025 Diabetes Screening Diabetes Screenin g [facility] Start: 03-21-2025 Influenza vaccination S [facility] Start: 01-27-2025 End: 01-27-2025 Patient encounter procedure 01/27/2025 10:30 AM EDT Office Visit [facility] Cardiovascular Thoracic Surgery - [place] [address] [place] [id number] Eli Manuel APRN - DOT COMPLIANCE MANAGER [address] [place], [place] [id number] [facility] Cardi[facility] Thoracic [facility] - [place] Start: 01-10-2025 End: 01-10-2025 Admission to same day surgery center 01/10/2025 7:30 AM EDT - 01/10/2025 11:30 AM EDT Surgery [facility] MAIN OR [address] [place] [phone] Sarah Luna, DO [address] [place] [id number] ROBOTIC RIGHT UPPER LOBECTOMY [93548 (CPT )] [facility] Comment on above: ROBOTIC RIGHT UPPER LOBECTOMY [26882 (CPT )] Start: 01-10-2025 Subsequent hospital visit by physician 01/10/2025 7:30 AM EDT Hospital Encounter [facility] OR [address] [place] [phone] Sarah Luna, DO [address] [place] [id number] [facility] OR Start: 01-10-2025 End: 01-10-2025 Thoracoscopy w/lobectomy single lobe ROBOTIC (XI) LOBECTOMY, LUNG Solitary pulmonary nodule 01/10/2025 7:30 AM EDT [facility] Operating Room Start: 12-29-2024 End: 12-29-2024 Admission to establishment 12/29/2024 2:30 PM EDT Pre-Admission Testing [facility] Pre-Admit Testing [address] [place] [phone] [facility] Pre-Admit Testing Start: 12-10-2024 Patient referral [facility] Work Phone: Start: 11-25-2024 PROSTATE CANCER SCREENING DISCUSSION PROSTATE CANCER SCREENING DISCUSSION [facility] Start: 11-25-2024 Prostate specific antigen measurement Prostate Cancer Screening Discussion [facility] Start: 11-04-2024 Lipid 1996 panel - Serum or Plasma Lipid Screening [facility] Start: 11-04-2024 Lipid panel Lipid Screening [facility] Start: 11-04-2024 LIPID SCREEN LIPID SCREEN [facility] Start: 03-21-2024 COVID-19 Vaccine ( season) COVID-19 Vaccine () [facility] Start: 03-21-2024 Influenza vaccination Influenz a Vaccine (Season Ended) [facility] Start: 07-21-2023 Advance Directive Discussion Advance Directive Discussion [facility] Start: 07-21-2023 Behavioral Health Screening Behavioral Health Screening [facility] Start: 03-21-2023 Covid-19 Vaccine ( season) Covid-19 Vaccine ( season) [facility] Start: 03-21-2023 Influenza vaccination C [facility] Start: 12-03-2022 End: 2023 NM CARDIAC PERF STRESS/EXERCISE NM CARDIAC PERF STRESS/EXERCISE Radiology Routine Dyspnea, unspecified type Regular wide QRS complex tachycardia Expected: 12/03/2022, Expires: 2023 [facility] Work Phone: Comment on above: Expected: 12/03/2022 , Expires: 2023 Start: 12-02-2022 Patient referral [facility] Work Phone: Start: 11-25-2022 DIABETES SCREEN DIABETES SCREEN [facility] Start: 07-21-2022 ADVANCE DIRECTIVE DISCUSSION ADVANCE DIRECTIVE DISCUSSION [facility] Start: 07-21-2022 DEPRESSION ASSESSMENT DEPRESSION ASS ESSMENT [facility] Start: 03-21-2022 Influenza vaccination INFLUENZA (#1) [facility] Start: 2021 ADVANCE DIRECTIVE DISCUSSION ADVANCE DIRECTIVE DISCUSSION [facility] Start: 07-21-2021 [facility]PRESSION [facility]MENT [facility] Start: 07-13-2021 COVID-19 VACCINE (4 - Booster for Pfizer series) COVID-19 VACCINE (4 - Booster for Pfizer series) [facility] Start: 07-13-2021 COVID-19 VACCINE (4 - Pfizer series) COVID-19 VACCINE (4 - Pfizer series) [facility] Start: 08-16-2020 DTaP/Tdap/Td Vaccine s (2 - Td or Tdap) DTaP/Tdap/Td Vaccines (2 - Td or Tdap) [facility] Start: 08-16-2020 Urine microalbumin profile [facility] Start: 06-01-2020 End: 06-01-[address] [facility] Work Phone: Start: 2016 RSV Immunization for Adults (1 - Risk 60-74 years 1-dose series) RSV Immunization for Adults (1 - Risk 60-74 years 1-dose series) [facility] Start: 2016 RSV Vaccine (1 - 1-dose 60+ series) RSV Vaccine (1 - 1-dose 60+ series) [facility] Start: 2006 Influenza vaccination LUNG CANCER [facility] Start: 2006 Screening for malignant neoplasm of lung Lung Cancer Screening [facility] Start: 2006 SHINGRIX VACCINE (1 of 2) SHINGRIX VACCINE (1 of 2) [facility] Start: 2006 Zoster Vaccines (1 o f 2) Zoster Vaccines (1 of 2) [facility] Start: 2001 COLOGUARD (FIT-DNA) COLOGUARD (FIT-D NA) [facility] Start: [address] COLONOGRAPHY [facility] Start: 2001 FECAL OCCULT BLOOD FECAL OCCULT BLOO D [facility] Start: 2001 Screening for malignant neoplasm of colon [facility] Start: 2001 SIGMOIDOSCOPY SIGMOIDOSCOPY [facility] Start: 12-20-1975 Pneumococcal Vaccine : 50+ Years (1 of 2 - PCV) Pneumococcal Vaccine: 50+ Years (1 of 2 - PCV) [facility] Start: 1974 Diabetes mellitus screening Diabetes Screening [facility] Start: 1974 Hepatitis C screening Hepatitis C [facility] Start: 1974 HIV SCREENING HIV SCREENING [facility] Start: 1968 Depression Screening Depression Scre ening [facility] Start: 1962 Pneumococcal Vaccine : 65+ (1 - PCV) Pneumococcal Vaccine: 65+ (1 - PCV) [facility] Start: 1962 Pneumococcal Vaccine : 65+ (1 of 2 - PCV) Pneumococcal Vaccine: 65+ (1 of 2 - PCV) [facility] Start: 1962 PNEUMOCOCCAL: 65+ (1 - PCV) PNEUMOCOCCAL: 65+ (1 - PCV) [facility] Start: 06-20-1957 COVID-19 VACCINE (#1) COVID-19 VACCI NE (#1) [facility] Start: 1956 ABDOMINAL AORTIC ANEURYSM SCREENING ABDOMINAL AORTIC ANEURYSM SCREENING [facility] Start: 1956 Abdominal aortic aneurysm screening Abdominal Aortic Aneurysm Screening [facility] Start: 1956 Lipid panel Lipid Panel [facility] Start: 1956 Medicare Annual Wellness (AWV) Medicare Annual Wellness (AWV) [facility] Start: 1956 Screening for malignant neoplasm of colon [facility] Blood chemistry [facility] Work Phone: Cardioversion [facility] Work Phone: CBC W Auto Differential panel - Blood [facility] Work Phone: CBC W Auto Differential panel - Blood [facility] CT Chest [facility] Lipid 1995 panel - Serum or Plasma [facility] Work Phone: Lipid 1996 panel - Serum or Plasma [facility] Lipid 1996 panel - Serum or Plasma [facility] Patient Education \cps-sql1\CPS_ PtEducati on\[facility]_FALL_PREVENTION. pdf [facility] Work Phone: Patient referral [facility] Work Phone: Positron emission tomography with computed tomography [facility] Prostate specific antigen measurement [facility] Work Phone: Prostate specific antigen measurement [facility] Thyroid stimulating hormone measurement [facility] Work Phone: Tobacco use cessatio n education [facility] Vitamin D, 25-hydrox y measurement [facility] Work Phone: [facility] [place] EP LAB [facility] Immunizations Immunization Date Immunization Notes Care Provider Fa [facility] 05-18-2021 Covid (Pfizer) Dr. Marion gonzalez Work Phone: [facility] 09-11-2020 Covid (Pfizer) Dr. Marion gonzalez Work Phone: [facility] 08-17-2020 Covid (Pfizer) Dr. Marion gonzalez Work Phone: [facility] 06-17-2018 influenza virus vaccine, unspecified formulation Indiresha Priyanka MD Work Phone: [facility] 08-16-2010 tetanus toxoid, redu shelley diphtheria toxoid, and acellular pertussis vaccine, adsorbed Aylin Mathew MD Work Phone: [facility] Work Phone: Payers Date Payer Category Payer Commercial Managed C are - HMO [employer] [id number] 2024 Private Health Insurance [id number] 2024 Unknown [id number] 2023 Self-pay [id number] 2021 Medicare [id number] 2021 Medicare [id number] 2017 Private Health Insurance [id number] 2017 Private Health Insurance [id number] .[id number] 2006 Unknown [id number] 1955 Unknown [id number] 2.16.840.1.733806.3.579 .2.651 1955 Unknown [id number] 2.840.1.296848.3.579 .2.651 Unknown [facility] PACKAGE PLAN [id number] Unknown [id number] Unknown [id number] 2.16.840.1.416473.3.579 .2.462 Unknown [id number] 2.16840.1.217537.3.579 .2.462 Unknown [id number] 2.840.1.718365.3.579 .2.462 Unknown [id number] 2.840.1.465778.3.579 .2.462 Unknown [id number] 2.840.1.169689.3.579 .2.462 Unknown [id number] 2.840.1.901304.3.579 .2.462 Unknown [id number] 2.840.1.598188.3.579 .2.462 Unknown [id number] 2.840.1.342670.3.579 .2.462 Unknown [id number] 2.16840.1.935041.3.579 .2.462 Unknown [id number] 2.840.1.350849.3.579 .2.462 Unknown [id number] 2.840.1.684127.3.579 .2.462 Unknown [id number] 2.16840.1.217667.3.579 .2.462 Unknown [id number] 2.16.840.1.593877.3.579 .2.462 Unknown [id number] 2.16.840.1.441904.3.579 .2.462 Unknown [id number] 2.840.1.452579.3.579 .2.462 Unknown [id number] 2.16.840.1.367900.3.579 .2.462 Unknown [id number] 2.16.840.1.522136.3.579 .2.462 Social History Date Type Detail Facility Start: 10-01-2021 End: 06-09-2023 Assertion Unknown if ever smoked [facility] Work Phone: Start: 04-25-2020 None [facility] Start: 04-25-2020 Spouse/ Signif icant Other [facility] Start: 1955 Sex Assigned At Male W [facility] Start: 02-18-2020 End: 11-05-2022 Tobacco smoking status VTIS Smokes tobacco daily [facility] Work Phone: Start: 07-21-1974 End: 2024 History of tobacco use Cigarette Smoker [facility] Work Phone: Start: 02-18-2020 End: 01-10-2025 Cigarettes smoked current (pack per day) - Reported [address] [facility] Start: 02-18-2020 End: 12-23-2024 Tobacco use and exposure Smokeless tobacco non-user [facility] Work Phone: Start: 05-15-2022 End: 11-05-2022 Alcohol intake Current non-drinker of alcohol (finding) [facility] Start: 1955 Sex Assigned At Not on file C [facility] Start: 05-05-2022 End: 05-15-2022 Exposure to SARS-CoV-2 (event) Not sure [facility] Start: 01-27-2023 End: 01-10-[address] [facility] National Score (1-100), lower number is lower risk 30 [facility] Start: 04-19-2024 Tobacco smoking stat [facility] Current Heavy tobacco smoker [facility] Start: 05-30-2022 End: 10-23-2024 Sex Male (finding) [facility] Start: 12-23-2024 [facility] Start: 07-21-1974 End: 2024 History of tobacco use Current smoker [facility] Start: 12-23-2024 End: 01-11-2025 Alcoholic beverage intake Current drinker of alcohol (finding) [facility] Start: 12-15-2024 Gender identity Identifies as male gender (finding) [facility] Within the last year , have you been afraid of your partner or ex-partner? No [facility] How often to you hav e a drink containing alcohol? Never [facility] Start: 12-29-2024 Alcohol Comment or less than weekly [facility] Functional Status Date Assessment Result Facility [facility] Clinical Notes 06-01-2013 to 01-27-2025 Eli Manuel, MARCOS - BLAYNE - 01/27/2025 10:30 AM Mirlande Barfield RN - 01/14/2025 1:15 PM Mirlande Barfield RN - 01/14/2025 1:15 PM Donovan Lorenzo RN - 01/10/2025 10:55 PM EDT Note Date & Type Note Facility 01-27-2025 History of Presen t illness Narrative Images from the original note were not included. [facility] Medical Group: CT SURGEONS AKR [address] [facility] [address] [facility] [address] Dept: [phone] Dept Loc: [phone] Visit type: Established patient - in person [...] M.D./George Delaney M.D. Intraoperative consultation performed at [facility], [address] [place] [address]; CLIA: [id number]; Joint Commission: [id number]; CAP: [id number] Clinical Information Solitary pulmonary nodule - R91.1 [...] 1.7 x 1 x 1 cm. A used equipment sales representative portion is submitted for frozen section [...] This note may have been dictated using [employer] Practice Edition 2.6 and/or [employer] Voice Recognition Feature. The document was proofread, however unrecognized voice recognition patient scheduling coordinator errors may be present. documented in this encounter [facility] 01-14-2025 Nurse Note Discharged ordered reviewed and signed no questions at this time. [facility] 01-14-2025 Nurse Note Discharged ordered reviewed [...] it from home. documented in this encounter [facility] 01-14-2025 Note Formatting of this n [...] Length of Stay (Days): 4 GMLOS: 3.5 [facility] 01-14-2025 Note Formatting of this n [...] Length of Stay (Days): 4 GMLOS: 3.5 [facility] 01-14-2025 Note Care Management Prog ress Note Short Medical why still here: Patient remains on H6 right upper lobe nodule s/p wedge resection. Per chart review CT dc'd. Active discharge order noted. No home going needs noted. Planned Discharge Disposition: Home or Self Care Barriers/Today we still Wait: Clinical stability, Symptomatic control Length of Stay (Days): 4 GMLOS: 3.5 [facility] 01-14-2025 Miscellaneous Notes Care Management Progress [...] lymph node dissection Surgeon: Savanah Luna DO Hardware Technician: Mamie Ballesteros Anesthesia: General--Dr. Houston Complications: None [...] and draped in usual sterile fashion. The lead recreation assistant was present for the entire procedure from [...] was undocked and removed. A single 28 Trinidadian chest tube was placed through the anterior [...] of outputs and hemodynamics. Savanah Luna DO [facility] Cardiothoracic Surgery documented in this encounter [facility] 01-14-2025 Note Discharge Summary: C ardiothoracic Surgery Rich James, 69 y.o., 1955 ADMIT DATE: 01/10/2025 DISCHARGE DATE: 01/14/2025 VISIT STATUS: Admission CODE STATUS: Full Code DISCHARGING SURGEON: Sarah Luna DO, Office Number: [phone] DISCHARGE DIAGNOSES: Right upper lobe nodule s/p [...] to 7 days. CONTINUE taking these medications [facility] Aerosphere 160-9-4.8 MCG/ACT aerosol Generic drug: Zvrtvmf-Wydskghlhnf-Qwbjwrekfr buPROPion 150 MG 12 hr tablet Commonly known as: Zyban famotidine 20 MG tablet Commonly known as: Pepcid BRVVQYSIZAZ-OYPEYEQDF-WMI C-MN PO loratadine 10 MG tablet Commonly known as: Claritin metoprolol succinate XL 25 MG 24 hr tablet Commonly known as: Toprol-XL simvastatin 20 MG tablet Commonly known as: Zocor warfarin 5 MG tablet Commonly known as: Coumadin STOP taking these medications fluticasone 50 MCG/ACT nasal spray Commonly known as: Flonase Where to Get Your Medications These medications were sent to [facility] [address] [place] [address] Hours: Friday to Friday 10 am to [...] UP: Eli SAINI January 27 10:30am [address] [address] Dept: [phone] Dept DISPOSITION: Home A copy of the discharge instructions which included the medications at the time of discharge, follow-up appointments, phone numb (more content not included)... [facility] 01-14-2025 Hospital Discharg e federico Manuel, CNC LASER OPERATOR - DOT COMPLIANCE MANAGER - 01/14/2025 11:06 AM EDT Images from the original note were not included. [facility] Group: Cardiothoracic Surgery [address] Mickie JORDAN (T): #[phone] (F): #[phone] After lung surgery, it is common to [...] or dog food bags, or a vacuum car cleaner. If your incision is in the [...] you start to have pain. Shoulder Stretch business services specialist sales a doorway and place one arm against [...] you are prescribed oxycodone/acetaminophen (Percocet) or hydrocodone/acetaminophen (Stovall/Vicodin) be cautious when taking additional tylenol. No [...] Cardiothoracic Surgery: Symptom Management Office phone number: [phone] Office is open 8:30 am -4 pm. [...] Call cardiothoracic surgery line for further instructions: [phone] Office is open 8:30 am -4 pm. [...] in Emergency Department documented in this encounter [facility] 01-14-2025 History of Presen t illness Narrative [facility] ([facility]) Inpatient Warfarin Consult HPI: Rich James is a 69 y.o. male admitted on 01/10/2025 for Solitary pulmonary nodule [R91.1] Lung nodule [R91.1]. Medical History[1] Patient is on warfarin for DVT, Afib, Protein C Deficiency and has a goal INR 2.0 - 3.0. Warfarin is currently managed by [facility]. Pt's home dose of warfarin [...] candidate 2025, staffed with Renata Hassan PharmD, [facility] Consult Service is available daily [phone] via [employer] Secure Chat. [1] Past Medical History: Diagnosis [...] original note were not included. PHYSICAL THERAPY [facility] Treatment Note Name/MRN: Rich James ([id number]) Date of : 1955 Age: 69 y.o. [...] (GT/Ther Ex) Maile Blount, SPTA Ursula Thomas, LAP CUTTER Cosigned by Eva Estevez PT at 01/13/2025 3:54 PM EDT Associated attestation - Eva Estevez PT - 01/13/2025 3:54 PM EDT Goals met, OK to discharge from PT standpoint. Recommend use of mobility aides for encouraging walking throughout LOS. Images from the original note were not included. OCCUPATIONAL THERAPY [facility] Initial Evaluation Name/MRN: Rich James ([id number]) Evaluation Date: 01/13/2025 Date of : 1955 Admission Date: 01/10/2025 5:44 AM Age: 69 y.o. [facility] Discharge Recommendation: Home with assist PRN Assessment IMPRESSION: Pt admitted for lung nodule and s/p Robotic right thoracoscopy, right upper lobe wedge resection, mediastinal lymph node dissection on 01/10/25. 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 Pt is currently performing at or [...] of Care supervision is transferred to a [facility] Occupational Therapist. Goals and/or [...] P ROCEDURE (HISTORICAL) CARPAL TUNNEL RELEASE Right WA REMV LUNG, WEDGE RESECTION AND ANATOMIC LUNG RESECTION (HISTORICAL) Right 01/10/2025 robotic right upper ROTATOR CUFF REPAIR Right ROTATOR CUFF REPAIR Left x 2 TOTAL HIP ARTHROPLASTY Right Cosigned by Tawana Flores OT at 01/13/2025 2:05 PM EDT [facility] ([facility]) Inpatient Warfarin Consult HPI: Rich James is a 69 y.o. male admitted on 01/10/2025 for Solitary pulmonary nodule [R91.1] Lung nodule [R91.1]. Medical History[1] Patient is on warfarin for DVT, Afib, Protein C Deficiency and has a goal INR 2.0 - 3.0. Warfarin is currently managed by [facility]. Pt's home dose of warfarin [...] candidate 2025, staffed with Renata Hassan PharmD, [facility] Consult Service is available daily [phone] via [employer] Secure Dexrex Gear. [1] Past Medical History: Diagnosis Date COPD [...] RUL wedge; MLND I personally performed a ntoa-qv-xyjd diagnostic evaluation on this patient I agree [...] of 20 minutes were spent between the vnvw-uu-tgas encounter, physical exam, reviewing the medical history, coordinating care, counseling/educating the patient, ordering medications/test/procedures, interpreting results and documenting in the patient's record on the day of the encounter. The patient was seen and examined independently and relevant data reviewed by myself. Savanah Luna DO [facility] Cardiothoracic Surgery Patient recently quit [...] and activity Pathology pending. Savanah Luna DO [facility] Cardiothoracic Surgery Nutrition rescreen completed. Chart reviewed. Patient to be monitored and followed by the diet development technician. DEBBIE Gonzalez Images from the original note were not included. PHYSICAL THERAPY [facility] Treatment Note Name/MRN: Rich James ([id number]) Date of : 1955 Age: 69 y.o. [...] Estevez PT at 01/12/2025 11:32 AM EDT [facility] Respiratory Care Department Progress Note As [...] original note were not included. OCCUPATIONAL THERAPY [facility] Name/MRN: Rich James ([id number]) Date: 01/12/2025 OT orders received and chart reviewed. Attempting OT eval, pt working with PT. Will continue to follow as schedule permits. Tawana Flores OTR/L [facility] ([facility]) Inpatient Warfarin [...] PharmD [facility] Consult Service is available daily [phone] via [employer]rex [employer]. [1] Past Medical History: Diagnosis Date COPD (chronic obstructive pulmonary disease) (HCC) GERD (gastroesophageal reflux disease) Hiatal hernia 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 Obesity FIFI (obstructive sleep apnea) Paroxysmal atrial fibrillation (HCC) Protein deficiency anemia Right bundle branch block Images from the original note were not included. PHYSICAL THERAPY [facility] Initial Evaluation Name/MRN: Rich James ([id number]) Evaluation Date: 01/11/2025 Date of : 1955 Admission Date: 01/10/2025 5:44 AM Age: 69 y.o. [facility] Discharge Recommendation: Home with assist PRN Assessment IMPRESSION: Pt admitted for lung nodule and s/p Robotic right thoracoscopy, right upper lobe wedge resection, mediastinal lymph node dissection on 01/10/25. Pt normally very independent and works 50 hours a week for [employer]. Pt is SBA x1 throughout session. Pt [...] Minutes 20 Variance: 6 to find BENIGNO Busch, PT Patient's Physical Therapy Plan of Care supervision is transferred to a [facility] Physical Therapist. Goals and/or [...] P ROCEDURE (HISTORICAL) CARPAL TUNNEL RELEASE Right WA REMV LUNG, WEDGE RESECTION AND ANATOMIC LUNG RESECTION (HISTORICAL) Right 01/10/2025 robotic right upper ROTATOR CUFF REPAIR Right ROTATOR CUFF REPAIR Left x 2 TOTAL HIP ARTHROPLASTY Right [facility] ([facility]) Inpatient Warfarin [...] 3. Warfarin is managed by PCP outpatient. [facility] will manage inpatient and sign off at discharge. Fawad Burton PharmD [facility] Consult Service is available daily [phone] via [employer] Secure Chat. [1] Past Medical History: Diagnosis Date COPD (chronic obstructive pulmonary disease) (HCC) GERD (gastroesophageal reflux disease) Hiatal hernia 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 Obesity FIFI (obstructive sleep apnea) Paroxysmal atrial fibrillation (HCC) Protein deficiency anemia Right bundle branch block [facility] Respiratory Care Department Progress Note As [...] the original note were not included. Cardiothoracic Surgery/[facility] Progress Note PATIENT NAME: Rich James DATE: [...] of 28 minutes were spent between the gnkz-cp-smgv encounter, physical exam, reviewing the medical history, [...] upper lobe wedge I personally performed a ltph-ws-cwss diagnostic evaluation on this patient I agree [...] of 20 minutes were spent between the pilb-aq-fbmf encounter, physical exam, reviewing the medical history, coordinating care, counseling/educating the patient, ordering medications/test/procedures, interpreting results and documenting in the patient's record on the day of the encounter. The patient was seen and examined independently and relevant data reviewed by myself. Savanah Luna DO FACS Cardiothoracic Surgery Patient sleeping comfortably, will attempt smoking cessation counseling at a later time. documented in this encounter [facility] 01-13-2025 Plan of care note Problem: Pain - Adult Goal: Verbalizes/displays adequate comfort level or baseline comfort level Outcome: Progressing Problem: Safety - Adult Goal: Free from fall injury Outcome: Progressing Problem: Discharge Planning Goal: Discharge to home or other facility with appropriate resources Outcome: Progressing [facility] 01-13-2025 Note OCCUPATIONAL THERAPY [facility] Initial Evaluation Name/MRN: Rich James ([id number]) Evaluation Date: 01/13/2025 Date of : 1955 Admission Date: 01/10/2025 5:44 AM Age: 69 y.o. [facility] Discharge Recommendation: Home with assist PRN Assessment IMPRESSION: Pt admitted for lung nodule and s/p Robotic right thoracoscopy, right upper lobe wedge resection, mediastinal lymph node dissection on 01/10/25. 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 Pt is [...] of Care supervision is transferred to a [facility] Occupational Therapist. Goals and/or [...] P ROCEDURE (HISTORICAL) CARPAL TUNNEL RELEASE Right WA REMV LUNG, WEDGE RESECTION AND ANATOMIC LUNG RESECTION (HISTORICAL) Right 01/10/2025 robotic right upper ROTATOR CUFF REPAIR Right ROTATOR CUFF REPAIR Left x 2 TOTAL HIP ARTHROPLASTY Right [facility] 01-13-2025 Plan of care note Problem: [...] monitored and maintained or improved Outcome: Progressing [facility] 01-12-2025 Plan of care note Problem: Pain - Adult Goal: Verbalizes/displays adequate comfort level or baseline comfort level Outcome: Progressing Problem: Safety - Adult Goal: Free from fall injury Outcome: Progressing Problem: Discharge Planning Goal: Discharge to home or other facility with appropriate resources Outcome: Progressing [facility] 01-12-2025 Plan of care note Problem: [...] monitored and maintained or improved Outcome: Progressing [facility] 01-12-2025 Note Formatting of this n [...] (Days): 2 GMLOS: No GMLOS Documented T [facility] 01-12-2025 Note Formatting of this n [...] (Days): 2 GMLOS: No GMLOS Documented T [facility] 01-12-2025 Note Care Management Prog ress Note Short Medical why still here: Patient remains on H6 right upper lobe nodule s/p wedge resection with chest tube. Chest tube to water seal. Planned Discharge Disposition: Home or Self Care Barriers/Today we still Wait: Clinical stability, Symptomatic control Length of Stay (Days): 2 GMLOS: No GMLOS Documented [facility] 01-12-2025 Note Cardiothoracic Surge ry Progress [...] pending. Savanah Luna DO FACS Cardiothoracic Surgery [facility] 01-12-2025 Note [facility] Respiratory Care Department Progress Note As [...] Respiratory in the care of this patient, [facility] 01-12-2025 Note Cardiothoracic Surge ry/CCM Progress [...] of 18 minutes were spent between the vlib-pl-xqmr encounter, physical exam, reviewing the medical history, coordinating the patient's care, counseling/educating the patient, ordering medications/test/procedures, interpreting results and documenting clinical information in the patients electronic health record on the day of the encounter. The patient was seen and examined [facility] 01-12-2025 Plan of care note Problem: [...] fall injury: Instruct family/caregiver on patient safety [facility] 01-11-2025 Note Formatting of this n [...] any other needs arise prior to DC. [facility] 01-11-2025 Note Formatting of this n ote [...] any other needs arise prior to DC. [facility] 01-11-2025 Note PHYSICAL THERAPY [facility] Initial Evaluation Name/MRN: Rich James ([id number]) Evaluation Date: 01/11/2025 Date of : 1955 Admission Date: 01/10/2025 5:44 AM Age: 69 y.o. [facility] Discharge Recommendation: Home with assist PRN Assessment IMPRESSION: Pt admitted for lung nodule and s/p Robotic right thoracoscopy, right upper lobe wedge resection, mediastinal lymph node dissection on 01/10/25. Pt normally very independent and works 50 hours a week for [employer]. Pt is SBA x1 throughout session. Pt [...] for ambulation. Start (more content not included)... [facility] 01-11-2025 Note Formatting of this n [...] Stay (Days): 1 GMLOS: No GMLOS Documented [facility] 01-11-2025 Note Formatting of this n [...] Stay (Days): 1 GMLOS: No GMLOS Documented [facility] 01-11-2025 Note Care Management Prog ress Note Short Medical why still here: Patient admitted to Right upper lobe nodule s/p wedge resection with chest tube. Planned Discharge Disposition: Home or Self Care Barriers/Today we still Wait: Clinical stability, Symptomatic control. Chest tube removal Length of Stay (Days): 1 GMLOS: No GMLOS Documented [facility] 01-11-2025 Note FROZEN SECTION DIAGN OSIS: FS1: Malignancy not identified. Vianca Porras M.D./Clint Mckeon M.D./George Delaney M.D. Intraoperative consultation performed at [facility], [address] [place] [address]; CLIA: [id number]; Joint Commission: [facility] 6964; CAP: [id number] [facility] Work Phone: 01-11-2025 Note FROZEN SECTION DIAGN OSIS: FS1: Malignancy not identified. Vianca Porras M.D./Clint Mckeon M.D./George Delaney M.D. Intraoperative consultation performed at [facility], [address] [place] [address]; CLIA: [id number]; Joint Commission: [id number] [id number]; CAP: [phone] [facility] [employer] Phone: 01-11-2025 Note [facility] Respiratory Care Department Progress Note As [...] Respiratory in the care of this patient, [facility] 01-11-2025 Plan of care note Problem: [...] discharge learning needs (meds, wound care, etc) [facility] 01-10-[address] Ding patient is not to wear his home cpap due to risk of rupture of the staple line and risk of pneumothorax. Re-entered patient's room and explained this to patient, patient understands and states he will not put on his home cpap, Placed patient back on 2L oxygen for the night. [facility] 01-10-[address] Ding patient is inquiring on whether his coumadin and bupropion will be ordered. Dr. Ding stated it is too soon after surgery to begin coumadin, patient educated. Bupropion medication will be non-formulary, patient understands he is to have his bring it from home. [facility] 01-10-2025 Note Patient sleeping com fortably, will attempt smoking cessation counseling at a later time. [facility] 01-10-2025 Nurse Note Report called to H6, family updated T [facility] 01-10-2025 Note Patient: Rich garcia Procedure Summary Date: 01/10/25 Room / Location: [address] Operating Room Anesthesia Start: 731 Anesthesia [...] once all PACU criteria has been met. [facility] 01-10-2025 Note Patient: Rich garcia Procedure Summary Date: 01/10/25 Room / Location: [address] Operating Room Anesthesia Start: 731 Anesthesia [...] opportunity for questions and acknowledgement of understanding. [facility] 01-10-2025 Note Airway Date/Time: 01/10/2025 7:35 AM Reason: scheduled Airway not difficult General Information and Staff Patient location during procedure: Procedural Resident/ESCROW OFFICER: Wallace Pina APRN - ESCROW OFFICER Performed: SRNA Patient Condition Indications for airway [...] 1 Number of other approaches attempted: 1 [facility] 01-10-2025 Note Arterial Line: Date/Time: 01/10/2025 [...] procedure well with no complications. Staffing Performed: ESCROW OFFICER Resident/ESCROW OFFICER: Jeison Gomez CRNA [facility] 01-10-2025 Procedure note CARDIOTHORACIC SURGERY--OPERATIVE NOTE Date: 01/10/25 Preoperative Diagnosis: Right upper lobe lung nodule Postoperative Diagnosis: Right upper lobe lung nodule Procedure: Robotic right thoracoscopy Right upper lobe wedge resection Mediastinal lymph node dissection Surgeon: Savanah Luna DO Hardware Technician: Mamie [place] Anesthesia: General--Dr. Houston Complications: None [...] and draped in usual sterile fashion. The lead recreation assistant was present for the entire procedure from [...] was undocked and removed. A single 28 Trinidadian chest tube was placed through the anterior [...] hemodynamics. Savanah Luna DO FACS Cardiothoracic Surgery [facility] 01-10-2025 Note Peripheral Block Time Out: 01/10/2025 7:00 AM Patient location during procedure: pre-op Start time: 01/10/2025 7:00 AM End time: 01/10/2025 7:05 AM Reason for block: procedure for pain and Acute pain service Staffing Performed: ESCROW OFFICER Resident/ESCROW OFFICER: Steffi Arce APRN - ESCROW OFFICER Preanesthetic Checklist Completed: patient identified, IV checked, site marked, risks and benefits discussed, surgical consent, monitors and equipment checked, pre-op evaluation and timeout performed Region: [place] Primary: Erector Spinae Secondary: Serratus (20cc TAP 10 cc exparel) Peripheral Block Prep: ChloraPrep Patient monitoring: heart rate, surveillance monitor and continuous pulse ox O2: Nasal [...] Injection 20 mL - 01/10/2025 7:00:00 AM hdtLNLFLjvtvy-lgfvrclpokk-ucimhrc rine (TAP) syringe - Injection 40 mL - 01/10/2025 7:00:00 AM [facility] 01-10-2025 Attending History and physical note H&P reviewed. The patient was examined and there are no changes to the H&P. PFTs from [place] reviewed. FEV1 2.33/66%. DLCO 16.4/64%. Will proceed with right upper lobectomy today. Savanah Luna DO [facility] Cardiothoracic Surgery Source Note - Sarah Luna DO - 12/23/2024 11:15 AM EDT Images from the original note were not included. 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 Do not crush, chew, or split., Disp: , Rfl: famotidine (Pepcid) 20 MG tablet, Take 20 mg by mouth daily., Disp: , Rfl: YMBMPVOBELM-GQGDYHIBP-CSK C-MN PO, Take 1 capsule by mouth [...] taking: Reported on 12/23/2024), Disp: , Rfl: [facility] 01-10-2025 Note H&P reviewed. The pa agustina was examined and there are no changes to the H&P. PFTs from [place] reviewed. FEV1 2.33/66%. DLCO 16.4/64%. Will proceed with right upper lobectomy today. Savanah Luna DO [facility] Cardiothoracic Surgery [facility] 01-10-2025 History and physical note H&P reviewed. The patient was examined and there are no changes to the H&P. PFTs from [place] reviewed. FEV1 2.33/66%. DLCO 16.4/64%. Will proceed with right upper lobectomy today. Savanah Luna DO [facility] Cardiothoracic Surgery Source Note - Sarah Luna DO - 12/23/2024 11:15 AM EDT Images from the original note were not included. 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 Do not crush, chew, or split., Disp: , Rfl: famotidine (Pepcid) 20 MG tablet, Take 20 mg by mouth daily., Disp: , Rfl: DBWCZXTOEVW-NIIZXVVVX-ZOV C-MN PO, Take 1 capsule by mouth [...] Disp: , Rfl: documented in this encounter [facility] 12-29-2024 Note Patient: Rich garcia Procedure Information Date/Time: 01/10/25729 Procedure: ROBOTIC RIGHT UPPER LOBECTOMY (Right) Location: [facility] OR [address] [place] [address] Operating Room Surgeons: Sarah Luna DO Relevant [...] Relation Name Age of Onset Diabetes Father [facility] 12-29-2024 Note Name: Rich toro : 1955 (Age-69 y.o.) Date of Service: Pt seen/examined on 12/29/2024 Procedure Information Date/Time: 01/10/25 39 Procedure: ROBOTIC RIGHT UPPER LOBECTOMY (Right) Location: [facility] OR [address] [place] [address] Operating Room Surgeons: Sarah Luna DO Chief [...] Patient states he is seen cardiology in [place], Dr Koo , tomorrow and will bridge [...] Referral Ordered: NO - ALREADY DIAGNOSED WITH FIFI AND COMPLIANT WITH CPAP Total time spent [...] who we are asked to see/evaluate by [facility] 03 for pre-operative evaluation prior to . Case: [id number] Date/Time: 01/10/25 0730 Procedure: ROBOTIC RIGHT UPPER LOBECTOMY (Right) [66913 CPT(R)] Anesthesia type: General Office notes Dr [...] evaluation. He fou (more content not included)... [facility] 12-24-2024 Telephone encounter Note Surg proc orders placed. MARCOS Locke CNP 12/24/24 [facility] Work Phone: 12-24-2024 Miscellaneous Notes Surg [...] rinse [] Other: documented in this encounter [facility] 12-24-2024 Note Prep for Procedure O rder Request: 12/24/24 Surgeon: Jeremy Surgery/Procedure: Robotic Right upper lobectomy Diagnosis: lung nodule Plan Admit: yes PAT Appointment: yes Date if yes: 12/29/24 2:30 pm Date of Surgery/Procedure: 01/10/25 7:30 am Medications: [] Hold as directed by CTS: [x] Per PAT protocol Medication needed prescribed: [x] None [] Nasal ointment and mouth rinse [] Other: [facility] 12-24-2024 Telephone encounter Note Prep for Procedure Order Request: 12/24/24 Surgeon: Jeremy Surgery/Procedure: Robotic Right upper lobectomy Diagnosis: lung nodule Plan Admit: yes PAT Appointment: yes Date if yes: 12/29/24 2:30 pm Date of Surgery/Procedure: 01/10/25 7:30 am Medications: [] Hold as directed by CTS: [x] Per PAT protocol Medication needed prescribed: [x] None [] Nasal ointment and mouth rinse [] Other: [facility] 12-23-2024 History of Presen t illness Narrative Images from the original note were not included. 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 Do not crush, chew, or split., Disp: , Rfl: famotidine (Pepcid) 20 MG tablet, Take 20 mg by mouth daily., Disp: , Rfl: TMWXNLKVSZD-YAYHYIWHD-JKB C-MN PO, Take 1 capsule by mouth [...] Disp: , Rfl: documented in this encounter 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 [facility] 12-02-2024 Evaluation note Diagnosis Onset Date [...] by GOLD classification chronic December 10 8:37am [facility] Work Phone: 1(893) 236-550710-16-2023 NoteHNO ID: [id number] Author: Aylin Mathew MD Service: ? 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 He denies any symptoms of recurrent AF, angina, dizziness, lightheadedness, near-syncope, shortness of breath, worsening activity tolerance, or constitutional symptoms. He reports this is the best he has felt in years. Patient is compliant with his Toprol-XL and Coumadin regimens. He is a [id number] of 3 secondary to age and DVT. [...] regimens. CT of chest was performed at [place] and showed no concerning findings. 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 We discussed warfarin as [...] I addressed their questions. documented in this encounterRivers[facility]10-[facility] History of Present illness Narrative* Aylin Mathew MD - 05/05/2023 8:14 AM EDT Images from the original note were not included. 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 He denies any symptoms of recurrent AF, angina, dizziness, lightheadedness, near-syncope, shortness of breath, worsening activity tolerance, or constitutional symptoms. He reports this is the best he has felt in years. Patient is compliant with his Toprol-XL and Coumadin regimens. He is a [id number] of 3 secondary to age and DVT. [...] regimens. CT of chest was performed at [place] and showed no concerning findings. 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 documented in this encounterRiverside [facility]07-10-2023 NoteHNO ID: [id number] Author: Nikita Ortiz APRN.DOT COMPLIANCE MANAGER Service: ? Author Type: Nurse Practitioner Type: Progress Notes Filed: 01/27/2023 9:09 AM Note Text: [facility] General Cardiology Electrophysiology PRIMARY CARE PHYSICIAN: Marion Feng [address] [address] CHIEF COMPLAINT: Persistent atrial fibrillation. HISTORY OF PRESENT ILLNESS (copied from my previous office note on 11/05/2022): Rich is a pleasant 66-year-old gentleman who presents today for 3-month follow-up status post radiofrequency PVI with Dr. Mathew on 08/05/2022. Overall patient reports he has been feeling very well lately. 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 CT of chest was performed at [place] and showed no concerning findings. Surface echo and Holter monitor results currently pending. Agreeable to follow-up in 3 months. Interval History: Rich is a pleasant 67-year-old gentleman who presents today for follow-up regarding history of persistent atrial fibrillation. Overall patient reports feeling excellent. 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 He denies any symptoms of recurrent AF, angina, dizziness, lightheadedness, near-syncope, shortness of breath, worsening activity tolerance, or constitutional symptoms. He reports this is the best he has felt in years. Patient is compliant with his Toprol-XL and Coumadin regimens. He is a [id number] of 3 secondary to age and DVT. [...] as instructed once felix (more content not included)...[facility]07-10-2023 Nurse Note* Vicky Curtis MA - 01/27/2023 8:39 AM EDT No cardiac complaints today. Vicky Curtis MA documented in this encounterRiverside [facility] Hospital07-10-2023 History of Present illness Narrative* Nikita Ortiz APRN.DOT COMPLIANCE MANAGER - 01/27/2023 8:30 AM EDT [facility] General Cardiology Electrophysiology PRIMARY CARE PHYSICIAN: Marion Feng [address] [facility] [address] [place] [address] CHIEF COMPLAINT: Persistent atrial fibrillation. HISTORY OF PRESENT ILLNESS (copied from my previous office note on 11/05/2022): Rich is a pleasant 66-year-old gentleman who presents today for 3-month follow-up status post radiofrequency PVI with Dr. Mathew on 08/05/2022. Overall patient reports he has been feeling very well lately. 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 CT of chest was performed at [place] and showed no concerning findings. Surface echo and Holter monitor results currently pending. Agreeable to follow-up in 3 months. Interval History: Rich is a pleasant 67-year-old gentleman who presents today for follow-up regarding history of persistent atrial fibrillation. Overall patient reports feeling excellent. 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 He denies any symptoms of recurrent AF, angina, dizziness, lightheadedness, near-syncope, shortness of breath, worsening activity tolerance, or constitutional symptoms. He reports this is the best he has felt in years. Patient is compliant with his Toprol-XL and Coumadin regimens. He is a [id number] of 3 secondary to age and DVT. [...] thromboembolism of deep veins of lower leg ([facility]) Right 06/01/2019 Coagulopathy ([facility]) 04/01/2005 Protein C Deficiency GENERAL OSTEOARTHROSIS 03/29/2005 Paroxysmal atrial fibrillation ([facility]) PROTEIN DEFIC ANEMIA 03/29/2005 PURE HYPERCHOLESTEROLEM 03/29/2005 [...] Bottle^Rfl: 11 Miscellaneous Medical Supply (COMPRESSION STOCKINGS) [facility]^Use as directed (Pressure 30-40mmHg)to Right Leg Dx [...] a ventricular rate of 46. Incomplete RBBB. WA 148. QRS 108. QT/QTc 488/427. Echo 11/05/2022 [...] October 2022 showed ejection fraction of 62%. [id number] of 3 secondary to age and history [...] . Nikita Ortiz APRN.BLAYNE documented in this encounterRiverside [facility] Hospital05-03-2023 Miscellaneous Notes* Telephone Encounter - Georgina Dudley [...] rates. Georgina Dudley RN documented in this encounterRiverside [facility] Hospital05-02-2023 Miscellaneous Notes* Addendum Note - Aylin Mathew [...] stress test Thanks Aylin documented in this encounterRiverside Methodist Hospital04-20-2023 Miscellaneous Notes* Telephone Encounter - Nilsa Rose [...] shows normal Ejection fraction documented in this encounterRiverside Methodist Hospital04-18-2023 NoteHNO ID: [id number] Author: Nikita Ortiz APRN.DOT COMPLIANCE MANAGER Service: ? Author Type: Nurse Practitioner Type: Progress Notes Filed: 11/05/2022 10:33 AM Note Text: [facility] General Cardiology Electrophysiology PRIMARY CARE PHYSICIAN: Marion Feng [address] [address] CHIEF COMPLAINT: 3 months post radiofrequency PVI [...] lately. 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 CT of chest was performed at [place] and showed no concerning findings. Surface echo and Holter monitor results currently pending. Agreeable to follow-up in 3 months. 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 Author Type: Herbarium Worker Type: Progress Notes Filed: 11/05/2022 9:20 AM Note Text: Holter monitor applied. Pt verbalized understanding of monitor use / diary.[facility]04-[facility] History of Present illness Narrative* Neelima Lozano Exercise Physiologist - 11/05/2022 9:19 AM EDT Holter monitor applied. Pt verbalized understanding of monitor use / diary. documented in this encounterRiverside [facility] Hospital01-17-2023 NoteHNO ID: [id number] Author: BRYAN Good Service: Care Management Author Type: Ep Tech Type: Care Mgt Initial Assessment Filed: 08/06/2022 10:12 AM Note Text: CARE MANAGEMENT: ASSESSMENT AND DISCHARGE PLAN SERVICE DATE: August 06, 2022 SERVICE TIME: 10:09 AM PRIMARY CARE PHYSICIAN: Marion Feng MD Primary Contact: Extended Emergency Contact Information Primary Emergency Contact: Candace James Address: [address] [place] [address] Mobile Relation: Spouse ADMISSION STATUS: Extended Recovery [...] Case Management. SIGNATURE: BRYAN Good PATIENT NAME: Rich James DATE: August 06, 2022 TIME: 10:09 AM CONTACT #: [id number] NoteHNO ID: [id number] Author: Amilcar York APRN.CRNA Service: Anesthesiology Author Type: Nurse Ticket Agent Type: Anesthesia Procedure Notes Filed: 08/05/2022 9:36 AM Note Text: ANESTHESIOLOGY PROCEDURE NOTE Airway General Information Procedure Start Time/Medication Administration: 08/05/2022 9:18 AM Patient location during procedure: OR Patient identity confirmed: arm band Staffing ESCROW OFFICER: Amilcar York APRN.ESCROW OFFICER Performed by: ESCROW OFFICER Indications and Patient Condition Indications for airway [...] attempts at approach: 1 SIGNATURE: Madi York APRN.ESCROW OFFICER PATIENT NAME: Rich James DATE: August 05, 2022 TIME: 9:35 AM CSN: [id number] Regional Hospital2022 Miscellaneous Notes* Telephone Encounter - Carmen Rust [...] before the procedure. Patient will need a bus driver/monitor when released from the hospital. You will stayovernight for observation. Patient should continue to take medications as prescribed the morning ofthe procedure with just a sip of water unless otherwise instructed. Pt verbalized understanding of the above instructions Pt is getting weekly INR's will continue to monitor. Kianna Craig RN documented in this encounterRiverside [facility] Hospital12-01-2022 Miscellaneous Notes* Telephone Encounter - Aylin Mathew [...] anticoagulated. Aylin Mathew MD documented in this encounterRiverside [facility] Hospital10-26-2022 NoteHNO ID: [id number] Author: Aylin Mathew MD Service: ? Author Type: Physician Type: Progress Notes Filed: 05/15/2022 3:25 PM Note Text: Heart and Vascular [facility] SECTION OF CARDIAC PACING and ELECTROPHYSIOLOGY OUTPATIENT VISIT DATE May 15, 2022 OUTPATIENT VISIT TYPE CONSULTATION PRIMARY CARE PHYSICIAN: Magen Ayon [address] [place] [address] REFERRING PHYSICIAN: No referring provider defined for this encounter. 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 This could be done at [place] with Dr. Hylton. If this results in [...] healthcare provider's instructions for treatment. Developed by [employer]. Published by [employer]. Copyright 2014 [employer] and/or one of its subsidiaries. All rights reserved. documented in this encounterRiverside Methodist Hospital10-26-2022 History of Present illness Narrative* Aylin Mathew MD - 05/15/2022 2:37 PM EDT Images from the original note were not included. Heart and Vascular [facility] SECTION OF CARDIAC PACING and ELECTROPHYSIOLOGY OUTPATIENT VISIT DATE May 15, 2022 OUTPATIENT VISIT TYPE CONSULTATION PRIMARY CARE PHYSICIAN: Magen Ayon [address] [place] [address] REFERRING PHYSICIAN: No referring provider defined for this encounter. 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 This could be done at [place] with Dr. Hylton. If this results in [...] months. Aylin Mathew MD documented in this encounterRiverside Methodist Hospital10-26-2022 Nurse Note* Keesha Vargas MA - 05/15/2022 2:30 PM EDT Patient denies any cardiac issues or symptoms. documented in this encounterRiverside Methodist Hospital10-01-2020 Evaluation note* Diagnosis Onset Date Resolution Status [...] resolved 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 chronic Paroxysmal atrial fibrillation chronic [facility] Work Phone: 1(246) 911-441011-12-2013 History of Past illness Narrative* Problem Noted Date Resolved Date 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 Dave Nair ( [facility]) 07.09.2011 ( ball and socket, socket repair) Embolism and thrombosis 09/30/2005 02/18/20 Overview: Right leg documented as of this encounter (statuses as of 05/15/2022) [facility] History of Past illness Narrative* Problem Noted Date Resolved Date 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 Dave Nair ( [facility]) 07.09.2011 ( ball and socket, socket repair) Embolism and thrombosis 09/30/2005 02/18/20 20 Overview: Right leg documented as of this encounter (statuses as of 06/20/2022) [facility] History of Past illness Narrative* Problem Noted Date Resolved Date 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 Dave Nair ( [facility]) 07.09.2011 ( ball and socket, socket repair) Embolism and thrombosis 09/30/2005 02/18/20 20 Overview: Right leg documented as of this encounter (statuses as of 07/08/2022) [facility] History of Past illness Narrative* Problem Noted Date Resolved Date Avascular necrosis of dorinaate 06/01/2013 Overview: Right wrist. History of total hip replacement 07/23/2011 05/08/2012 Overview: Done by Dr. Dave Nair ( [facility]) 07.09.2011 ( ball and socket, socket repair) Embolism and thrombosis 09/30/2005 02/18/20 20 Overview: Right leg documented as of this encounter (statuses as of 11/08/2022) [facility] of Past illness Narrative* Problem Noted Date Resolved Date 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 Dave Nair ( [facility]) 07.09.2011 ( ball and socket, socket repair) Embolism and thrombosis 09/30/2005 02/18/20 20 Overview: Right leg documented as of this encounter (statuses as of 11/20/2022) [facility] History of Past illness Narrative* Problem Noted Date Resolved Date 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 Dave Nair ( [facility]) 07.09.2011 ( ball and socket, socket repair) Embolism and thrombosis 09/30/2005 02/18/20 20 Overview: Right leg documented as of this encounter (statuses as of 11/20/2022) [facility] History of Past illness Narrative* Problem Noted Date Diagnosed Date Resolved Date Avascular necrosis of lunate 06/01/2013 11/10/2013 Overview: Right wrist. History of total hip replacement 07/23/2011 05/08/2012 Overview: Done by Dr. Dave Nair ( [facility]) 07.09.2011 ( ball and socket, socket repair) Embolism and thrombosis 09/30/200501/20 Overview: Right leg documented as of this encounter (statuses as of 01/27/2023) [facility] History of Past illness Narrative* Problem Noted Date Diagnosed Date Resolved Date Avascular necrosis of lunate 06/01/2013 11/10/2013 Overview: Right wrist. History of total hip replacement 07/23/2011 05/08/2012 Overview: Done by Dr. Dave Nair ( [facility]) 07.09.2011 ( ball and socket, socket repair) Embolism and thrombosis 09/30/200501/20 Overview: Right leg documented as of this encounter (statuses as of 05/05/2023) [facility] History of Past illness Narrative* Problem Noted Date Diagnosed Date Resolved Date Avascular necrosis of lunate 06/01/2013 11/10/2013 Overview: Right wrist. History of total hip replacement 07/23/2011 05/08/2012 Overview: Done by Dr. Dave Nair ( [facility]) 07.09.2011 ( ball and socket, socket repair) Embolism and thrombosis 09/30/200501/20 Overview: Right leg documented as of this encounter (statuses as of 11/06/2023) [facility] Diagnosis Onset Date Resolution Status 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 chronic Paroxysmal atrial fibrillation chronic Lung nodule acute Stage 1 mild COPD by GOLD classification acute [facility] Work Phone: Evaluation note* Diagnosis Onset [...] Smoking greater than 40 pack years chronic [facility] Work Phone: Evaluation note* Diagnosis Onset [...] by GOLD classification acute Lung nodule resolved [facility] Work Phone: Evaluation note* Diagnosis Onset Date Resolution Status Stage 1 mild COPD by GOLD classification acute Lung nodule resolved 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 chronic Paroxysmal atrial fibrillation chronic 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 chronic Paroxysmal atrial fibrillation chronic Atrial fibrillation, permanent acute [facility] Work Phone: Evaluation note* Diagnosis Persistent atrial fibrillation (HCC)- Primary Atrial fibrillation documented in this encounter [facility] note* Diagnosis Onset Date Resolution Status 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 chronic Paroxysmal atrial fibrillation chronic 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 chronic Paroxysmal atrial fibrillation chronic Atrial fibrillation, permanent acute [facility] Work Phone: Evaluation note* Diagnosis Onset Date Resolution Status 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 chronic Paroxysmal atrial fibrillation chronic 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 chronic Paroxysmal atrial fibrillation chronic Atrial fibrillation, permanent acute Atrial fibrillation, permanent acute Paroxysmal atrial fibrillation chronic [facility] Work Phone: Evaluation note* Diagnosis Persistent atrial fibrillation (HCC)- Primary Atrial fibrillation documented in this encounter [facility] note* Diagnosis Onset Date Resolution Status Atrial fibrillation, permanent acute Paroxysmal atrial fibrillation chronic Acute URI acute Atrial fibrillation, permanent acute Stage 1 mild COPD by GOLD classification acute Vitamin D deficiency acute 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, chronic 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 chronic group home current use of anticoagulant chronic Protein C deficiency chronic Smoking greater than 40 pack years chronic 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 chronic Paroxysmal atrial fibrillation chronic Stage 1 mild COPD by GOLD classification acute Paroxysmal atrial fibrillation chronic Lung nodule resolved [facility] Work Phone: Evaluation note* Diagnosis Onset Date Resolution Status 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 chronic Paroxysmal atrial fibrillation chronic Stage 1 mild COPD by GOLD classification acute Paroxysmal atrial fibrillation chronic Lung nodule resolved 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 chronic group home current use of anticoagulant chronic Paroxysmal atrial fibrillation [facility] Work Phone: Evaluation note* Diagnosis Dyspnea, unspecified type- Primary Regular wide QRS complex tachycardia [facility] Diagnosis Onset Date Resolution Status 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 chronic group home current use of anticoagulant chronic Paroxysmal atrial fibrillation chronic Skin lesion acute Stage 1 mild COPD by GOLD classification acute Vitamin D deficiency acute 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 chronic group home current use of anticoagulant chronic [facility] Work Phone: Evaluation note* Diagnosis Onset Date Resolution Status 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 chronic group home current use of anticoagulant chronic Paroxysmal atrial fibrillation chronic Skin lesion acute Stage 1 mild COPD by GOLD classification acute Vitamin D deficiency acute 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 chronic group home current use of anticoagulant chronic Stage 1 mild COPD by GOLD classification acute Paroxysmal atrial fibrillation chronic [facility] Work Phone: Evaluation note* Diagnosis Persistent atrial fibrillation (HCC)- Primary Atrial fibrillation Status post catheter ablation of atrial fibrillation Sinus bradycardia Other specified cardiac dysrhythmias Obesity, Class I, BMI 30-34.9 Obesity, unspecified At risk for stroke Other specified personal history presenting hazards to health [facility]* Diagnosis Onset Date Resolution Status Stage 1 mild COPD by GOLD classification acute Paroxysmal atrial fibrillation chronic 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 chronic group home current use of anticoagulant chronic Paroxysmal atrial fibrillation chronic [facility] Work Phone: evaluation note* Diagnosis Persistent atrial fibrillation (HCC)- Primary Atrial fibrillation documented in this encounter [facility] note* Diagnosis Onset Date Resolution Status S/P ablation of atrial fibrillation acute Skin lesion acute Smoking greater than 20 pack years acute Stage 1 mild COPD by GOLD classification acute Vitamin D deficiency acute 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 chronic Protein C deficiency chronic Smoking greater than 40 pack years chronic [facility] Work Phone: evaluation noteNo assessment information available [facility] Work Phone: evaluation note* Diagnosis Persistent atrial fibrillation (HCC) Atrial fibrillation documented in this encounter [facility] note* Diagnosis Onset Date Resolution Status Admit Date Right upper lobe pulmonary nodule ac aaron December 02, 2024 7:47am FIFI (obstructive sleep apnea) chroni c December 02, 2024 7:47am Smoking greater than 40 pack years chronic December 02, 2024 7 :47am Stage 1 mild COPD by GOLD classification chronic December 02, 2024 7 :47am [facility] Work Phone: [email or web address] note* Diagnosis Right upper lobe pulmonary nodule- Primary Chronic obstructive pulmonary disease, unspecified COPD type (HCC) Paroxysmal atrial fibrillation (HCC) Atrial fibrillation 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) Warfarin anticoagulation Former smoker Personal history of tobacco use, presenting hazards to health Solitary pulmonary nodule [facility] Lung nodule- Primary Other diseases of lung, not elsewhere classified Solitary pulmonary nodule [facility] Diagnosis Lung nodule- Primary Other diseases of lung, not elsewhere classified Lung nodule Other diseases of lung, not elsewhere classified Solitary pulmonary nodule S/P thoracotomy Other [facility]procedural status [facility] Lung nodule- Primary Other diseases of lung, not elsewhere classified [facility] instructions[facility]ulatory Orders* Cardiovascular/Thoracic Surgery Location: None Selected [facility] Work Phone: Reason for referral (narrative)* Diagnostic Procedure Only (Routine) - Pending Review Specialty Diagnoses / Procedures Referred By Hay schwab Referred To Contact MOLECULAR & FUNCTIONAL IMAGING Diagnoses Dyspnea, unspecified type Regular wide QRS complex tachycardia Procedures NM CARDIAC PERF STRESS/EXERCISE MYOCARDIAL SPECT MULTIPLE STUDIES Aylin Mathew MD [address] [place] [address] Molecular & Functional Imaging [address] [place] [address] Referral ID Status Reason Start Date Expiration Date Visits Requested Visits Authorized [id number] Pending Review Auto-Generat ed Referral 12/03/2022 2023 1 1 [facility] for referral (narrative)No reason for referral [facility] Work [facility]: Reason for visit Narrative* Auth/Cert (Routine) Specialty Diagnoses / Procedures Referred By Hay schwab Referred To Contact Diagnoses Solitary pulmonary nodule Procedures [place] THORACOSCOPY W/LOBECTOMY SINGLE LOBE ROBOTIC RIGHT UPPER LOBECTOMY Sarah Luna DO [address] [place] [address] Phone: tel: fax: Referral ID Status Reason Start Date Expiration Date Visits Re quested Visits Authorized [id number] 12/23/[address] [facility] Chief Complaint Chief Complaint Description Start [...] Will No April 25 3:40pm Power of Cell Room Operator No April 25 3:40pm Advance Directive Response Recorded Date/ Time Advance Directives No March 11:13am Living Will No April 04, 2022 11:13am Power of Cell Room Operator No March 11:13am Advance Directive Response Recorded Date/ Time Advance Directives on File No 2021 10:58am Advance Directives No May 10:58am Living Will No June 04 10:58am Power of Cell Room Operator No June 04, 2022 10:58am Advance Directive Response Recorded Date/ Time Advance Directives No May 11:58am Living Will No June 04 11:58am Power of Cell Room Operator No June 04, 2022 11:58am Advance Directive Response Recorded Date/ Time Advance Directives No May 10:58am Living Will No June 04 10:58am Power of Cell Room Operator No June 04, 2022 10:58am Advance Directive Response Recorded Date/ Time Living Will No June 04 11:58am Do you have a Healthcare Power of Cell Room Operator? No June 04, 2022 11:58am Living Will No July 21 5:18am Do you have a Healthcare Power of Cell Room Operator? No July 21, 2024 5:18am Living Will No September 18, 2024 4:58am Do you have a Healthcare Power of Cell Room Operator? 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 No June 04, 2022 11:58am Living Will No September 18, 2024 4:58am Do you have a Healthcare Power of Cell Room Operator? 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 Power of Cell Room Operator 01/10/2025 6:28 AM Advance Directives and Luke [...] deep vein of right lower extremity 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 group home current use of anticoagulant Protein C deficiency [...] classification Paroxysmal atrial fibrillation Lung nodule 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 group home current use of anticoagulant Paroxysmal atrial fibrillation Chief Complaint S/O INR- FINGERSTICK S/O INR- FINGERSTICK 3 M FU POST OP A FIB Amb Documentation 6 M FU S/O INR- FINGERSTICK 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 for 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 Paroxysmal atrial fibrillation Skin lesion Stage 1 mild COPD by GOLD classification Vitamin D deficiency 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 Chief Complaint S/O INR- FINGERSTICK 3 M FU POST OP A FIB Amb Documentation 6 M FU S/O INR- FINGERSTICK 6 M FU S/O INR- FINGERSTICK Reason for Visit 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 group home current use of anticoagulant Paroxysmal atrial fibrillation Skin lesion Stage 1 mild COPD by GOLD classification Vitamin D deficiency 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 Stage 1 mild COPD by GOLD classification Paroxysmal atrial fibrillation Chief Complaint 6 M FU S/O INR- FINGERSTICK S/O INR- FINGERSTICK S/O INR- FINGERSTICK 1 Y FU Reason for Visit Stage 1 mild COPD by GOLD classification Paroxysmal atrial fibrillation 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 group home current use of anticoagulant Paroxysmal atrial fibrillation [...] 04/19/2020 Reason Comments CARD New Patient Consult CARDIAC RN REF FOR A-FI B 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 DATE CREATED AUTHOR AUTHOR'S ORGANIZ ATION 01/19/2025 [facility] DATE CREATED AUTHOR AUTHOR'S ORGANIZ ATION 01/31/2025 [facility] Source Comments (unrecognize d section and content) In the event this informatio n is protected by the Federal Confidentiality of Alcohol and Drug Abuse Patient Records regulations: The Federal rules restrict any use of the information to criminally investigate or prosecute any alcohol or drug abuse patient.[facility] the event this information is protected by the Federal Confidentiality of Alcohol and Drug Abuse Patient Records regulations: The Federal rules restrict any use of the information to criminally investigate or prosecute any alcohol or drug abuse patient.[facility] the event this information is protected by the Federal Confidentiality of Alcohol and Drug Abuse Patient Records regulations: The Federal rules restrict any use of the information to criminally investigate or prosecute any alcohol or drug abuse patient.[facility] the event this information is protected by the Federal Confidentiality of Alcohol and Drug Abuse Patient Records regulations: The Federal rules restrict any use of the information to criminally investigate or prosecute any alcohol or drug abuse patient.[facility] the event this information is protected by the Federal Confidentiality of Alcohol and Drug Abuse Patient Records regulations: The Federal rules restrict any use of the information to criminally investigate or prosecute any alcohol or drug abuse patient.[facility] the event this information is protected by the Federal Confidentiality of Alcohol and Drug Abuse Patient Records regulations: The Federal rules restrict any use of the information to criminally investigate or prosecute any alcohol or drug abuse patient.[facility] the event this information is protected by the Federal Confidentiality of Alcohol and Drug Abuse Patient Records regulations: The Federal rules restrict any use of the information to criminally investigate or prosecute any alcohol or drug abuse patient.[facility] the event this information is protected by the Federal Confidentiality of Alcohol and Drug Abuse Patient Records regulations: The Federal rules restrict any use of the information to criminally investigate or prosecute any alcohol or drug abuse patient.[facility] the event this information is protected by the Federal Confidentiality of Alcohol and Drug Abuse Patient Records regulations: The Federal rules restrict any use of the information to criminally investigate or prosecute any alcohol or drug abuse patient.[facility] Care Teams (unrecognized sec tion and content) [...] Provider, Referring Pro vider Active Hi Swanson CARDIAC RN, CARDIAC RN-C Other Provider Active Team Status: Active Member Role Status Dates Dr. Marion Feng MD Primary Care Provider Active Dr. Brandon Anders MD Attending Provider, Referring Pr ovider Active Shuttle Operator Relationship Specialty Start Date End Date Magen Ayon MD [address] [place] [address] PCP - General 08/10/03 Shuttle Operator Relationship Specialty Start Date End Date Magen Ayon MD [address] [place] [address] PCP - General 08/10/03 Team Status: Inactive [...] Provider, Referri ng Provider Active Hi Swanson CARDIAC RN, CARDIAC RN-C Attending Provider Active Team Status: Active Member [...] Provider, Referring Pro vider Active Hi Swanson CARDIAC RN, CARDIAC RN-C Other Provider Active Team Status: Active Member Role Status Dates Dr. Marion Feng MD Primary Care Provider Active Hi Swanson CARDIAC RN, CARDIAC RN-C Attending Provider Active Team Status: Active Member Role Status Dates Dr. Marion Feng MD Primary Care Provider Active Dr. Jose Hylton MD Attending Provider, Referring Pro vider Active Hi Swanson CARDIAC RN, CARDIAC RN-C Other Provider Active Team Status: Inactive Member Role Status Dates Dr. Marion Feng MD Primary Care Provider Active Hi Swanson CARDIAC RN, CARDIAC RN-C Attending Provider, Referring Pro vider Active Shuttle Operator Relationship Specialty Start Date End Date Marion Feng MD [address] [place] [address] PCP - General Internal Medicine 08/05/22 Shuttle Operator Relationship Specialty Start Date End Date Marion Feng MD [address] [place] [address] PCP - General Internal Medicine 08/05/22 Team Status: Inactive Member Role Status Dates Dr. Marion Feng MD Primary Care Provider, Attendi ng Provider Active Shuttle Operator Relationship Specialty Start Date End Date Marion Feng MD [address] [place] [address] PCP - General Internal Medicine 08/05/22 Shuttle Operator Relationship Specialty Start Date End Date Marion Feng MD [address] [place] [address] PCP - General Internal Medicine 08/05/22 Shuttle Operator Relationship Specialty Start Date End Date Marion Feng MD [address] [place] [address] PCP - General Internal Medicine 08/05/22 Team Status: Inactive Member Role Status Dates Dr. Marion Feng MD Primary Care Provider Active Start: July 15, 2024 End: July 15, 2024 Dr. Jose Hylton MD Attending Provider Active S tart: July 15, 2024 End: July 15, 2024 Dr. Jose Hylton MD Referring Provider Active S tart: July 15, 2024 End: July 15, 2024 Hi Swanson CARDIAC RN, CARDIAC RN-C Other Provider Active Start : July 15, [...] 2024 End: September 17, 2024 Hi Swanson CARDIAC RN, CARDIAC RN-C Other Provider Active Start : September 02, 2024 End: September 17, 2024 Team Status: Inactive Member Role Status Dates Dr. Marion Feng MD Primary Care Provider Active Start: October 19, 2024 End: October 19, 2024 Kylie Motta CARDIAC RN, CARDIAC RN-C Attending Provider Active Start: October 19, 2024 End: October 19, 2024 Kylie Motta CARDIAC RN, CARDIAC RN-C Referring Provider Active Start: October 19, 2024 End: October 19, 2024 Team Status: Active Member Role Status Dates Dr. Marion Feng MD Primary Care Provider Active Start: October 19, 2024 Dr. Jose Hylton MD Attending Provider Active S tart: October 19, 2024 Dr. Jose Hylton MD Referring Provider Active S tart: October 19, 2024 Hi Swanson CARDIAC RN, CARDIAC RN-C Other Provider Active Start : October 19, 2024 Team Status: Inactive Member Role Status Dates Dr. Marion Feng MD Primary Care Provider Active Start: November 17, 2024 End: November 17, 2024 Kylie Motta CARDIAC RN, CARDIAC RN-C Attending Provider Active Start: November 17, 2024 End: November 17, 2024 Kylie Motta CARDIAC RN, CARDIAC RN-C Referring Provider Active Start: November 17, 2024 [...] 2024 End: November 17, 2024 Hi Swanson CARDIAC RN, CARDIAC RN-C Other Provider Active Start : November 17, 2024 End: November 17, 2024 Team Status: Inactive Member Role Status Dates Dr. Marion Feng MD Primary Care Provider Active Start: December 02, 2024 End: December 02, 2024 Dr. Marion Feng MD Referring Provider Active Start: December 02, 2024 End: December 02, 2024 Kylie Motta NP, CARDIAC RN-C Attending Provider Active Start: December 02, 2024 End: December 02, 2024 Team Status: Inactive Member Role Status Dates Dr. Marion Feng MD Primary Care Provider Active Start: December 07, 2024 End: December 07, 2024 Kylie Motta CARDIAC RN, CARDIAC RN-C Attending Provider Active Start: December 07, 2024 End: December 07, 2024 Kylie Motta CARDIAC RN, CARDIAC RN-C Referring Provider Active Start: December 07, 2024 End: December 07, 2024 Team Status: Inactive Member Role Status Dates Dr. Marion Feng MD Primary Care Provider Active Start: December 10, 2024 End: December 10, 2024 Dr. Marion Feng MD Referring Provider Active Start: December 10, 2024 End: December 10, 2024 Kylie Motta CARDIAC RN, CARDIAC RN-C Attending Provider Active Start: December 10, 2024 End: December 10, 2024 Shuttle Operator Relationship Specialty Start Date End Date Marion Feng [address] [place] [id number] PCP - General Internal Medicine 12/15/24 Kylie Motta [address] [place] [address] Nurse Practitioner 12/15/24 Shuttle Operator Relationship Specialty Start Date End Date Marion Feng [address] [place] [id number] PCP - General Internal Medicine 12/15/24 Kylie Motta [address] [place] [address] Nurse Practitioner 12/15/24 Shuttle Operator Relationship Specialty Start Date End Date Marion Feng [address] [place] [id number] PCP - General Internal Medicine 12/15/24 Kylie Motta [address] [place] [address] Nurse Practitioner 12/15/24 Shuttle Operator Relationship Specialty Start Date End Date Marion Feng [address] [place] [address] PCP - General Internal Medicine 12/15/24 Kylie Motta [address] [place] [address] Nurse Practitioner 12/15/24 Team Status: Active Member Role/Relationship Status Dates Dr. Marion Feng MD Primary Care Provider Active Team Status: Inactive Member Role/Relationship Status Dates Dr. Marion Feng MD Primary Care Provider Active Start: October 19, 2024 End: October 19, 2024 Kylie Motta CARDIAC RN, CARDIAC RN-C Attending Provider Active Start: October 19, 2024 End: October 19, 2024 Kylie Motta CARDIAC RN, CARDIAC RN-C Referring Provider Active Start: October 19, 2024 End: October 19, 2024 Team Status: Inactive Member Role/Relationship Status Dates Dr. Marion Feng MD Primary Care Provider Active Start: November 17, 2024 End: November 17, 2024 Kylie Motta CARDIAC RN, CARDIAC RN-C Attending Provider Active Start: November 17, 2024 End: November 17, 2024 Kylie Motta CARDIAC RN, CARDIAC RN-C Referring Provider Active Start: November 17, 2024 [...] 2024 End: November 17, 2024 Hi Swanson CARDIAC RN, CARDIAC RN-C Other Provider Active Start : November 17, 2024 End: November 17, 2024 Team Status: Inactive Member Role/Relationship Status Dates Dr. Marion Feng MD Primary Care Provider Active Start: December 02, 2024 End: December 02, 2024 Dr. Marion Feng MD Referring Provider Active Start: December 02, 2024 End: December 02, 2024 Kylie Motta CARDIAC RN, CARDIAC RN-C Attending Provider Active Start: December 02, 2024 End: December 02, 2024 Team Status: Inactive Member Role/Relationship Status Dates Dr. Marion Feng MD Primary Care Provider Active Start: December 07, 2024 End: December 07, 2024 Kylie Motta CARDIAC RN, CARDIAC RN-C Attending Provider Active Start: December 07, 2024 End: December 07, 2024 Kylie Motta CARDIAC RN, CARDIAC RN-C Referring Provider Active Start: December 07, 2024 End: December 07, 2024 Team Status: Inactive Member Role/Relationship Status Dates Dr. Marion Feng MD Primary Care Provider Active Start: December 10, 2024 End: December 10, 2024 Dr. Marion Feng MD Referring Provider Active Start: December 10, 2024 End: December 10, 2024 Kylie Motta CARDIAC RN, CARDIAC RN-C Attending Provider Active Start: December 10, 2024 End: December 10, 2024 Team Status: Inactive Member Role/Relationship Status Dates Dr. Marion Feng MD Primary Care Provider Active Start: January 17, 2025 End: January 17, 2025 Kassy PHILLIP PA Attending Provider Active Start: January 17, 2025 End: January 17, 2025 Kassy PHILLIP PA Referring Provider Active Start: January 17, 2025 End: January 17, 2025 Shuttle Operator Relationship Specialty Start Date End Date Marion Feng [address] [place] [phone] PCP - General Internal Medicine 12/15/24 Kylie Motta [address] [place] [phone] Nurse Practitioner 12/15/24 Team Status: Inactive Member Role/Relationship Status Dates Dr. Marion Feng MD Primary Care Provider Active Start: November 17, 2024 End: November 17, 2024 Kylie Motta CARDIAC RN, CARDIAC RN-C Attending Provider Active Start: November 17, 2024 End: November 17, 2024 Kylie Motta CARDIAC RN, CARDIAC RN-C Referring Provider Active Start: November 17, 2024 [...] 2024 End: November 17, 2024 Hi Swanson CARDIAC RN, CARDIAC RN-C Other Provider Active Start : November 17, 2024 End: November 17, 2024 Team Status: Inactive Member Role/Relationship Status Dates Dr. Marion Feng MD Primary Care Provider Active Start: December 02, 2024 End: December 02, 2024 Dr. Marion Feng MD Referring Provider Active Start: December 02, 2024 End: December 02, 2024 Kylie Motta CARDIAC RN, CARDIAC RN-C Attending Provider Active Start: December 02, 2024 End: December 02, 2024 Team Status: Inactive Member Role/Relationship Status Dates Dr. Marion Feng MD Primary Care Provider Active Start: December 07, 2024 End: December 07, 2024 Kylie Motta CARDIAC RN, CARDIAC RN-C Attending Provider Active Start: December 07, 2024 End: December 07, 2024 Kylie Motta CARDIAC RN, CARDIAC RN-C Referring Provider Active Start: December 07, 2024 End: December 07, 2024 Team Status: Inactive Member Role/Relationship Status Dates Dr. Marion Feng MD Primary Care Provider Active Start: December 10, 2024 End: December 10, 2024 Dr. Marion Feng MD Referring Provider Active Start: December 10, 2024 End: December 10, 2024 Kyile Motta CARDIAC RN, CARDIAC RN-C Attending Provider Active Start: December 10, 2024 [...] this med)0945 (Given - Provider: Vikki Noel BUFFING WHEEL INSPECTOR) metoprolol succinate XL (Toprol-XL) 24 hr tablet [...] Tristan, RN) 08 (Not Given - Provider: Katie Schneider RN - Reason: Patient/family refused)2150 (Not [...] sedation for opioid reversal - MUST notify condominium association manager provider immediately after first dose, may give [...] RN) 0150 (See Alternative - Provider: Bekah Tristna RN)0816 (See Alternative - Provider: Katie Schneider [...] BE BASED ON THE PRIMARY CLINICAL RECORDS. [employer] provides no warranty or guarantee of the accuracy or completeness of information in this document.
[2025-03-04] MEDS: 0.9% Saline Lock 10 ML Syringe IV ×2 (21:30→22:39)
[2025-03-04] MEDS: 0.9% Normal Saline (1000mL) 1,000 ML 75 ML IV (21:30)
[2025-03-05 03:05] VITALS: BP 107/50; PULSE 62; RESP 16; TEMP 36.8; O2SAT 95
[2025-03-05] MEDS: 0.9% Saline Lock 10 ML Syringe IV ×2 (06:39→08:05)
[2025-03-05 07:16] VITALS: PULSE 61; RESP 16; O2SAT 93
--- NOTE | 2025-03-05 07:34 | PN.HOSP_ITS ---
Reason for Visit Chief Complaint: Difficulty swallowing medications Objective Data Objective Data Vital Signs: Vital Signs Temp Pulse Resp BP Pulse Ox O2 Del Method 98.2 F 62 16 107/50 L 95 Room Air 03/05/25 03:05 03/05/25 03:05 03/05/25 03:05 03/05/25 03:05 03/05/25 03:05 03/05/25 03:05 Oxygen Delivery Method Room Air Weight: 180 lb 8.937 oz Body Mass Index (BMI) 26.6 Intake & Output: Intake and Output for Last 24 Hours 03/03/25 03/04/25 03/05/25 23:59 23:59 23:59 Intake Total 1020 / 1020 Balance 1020 / 1020 Lab / Micro Data 03/04/25 14:56 03/04/25 14:56 Labs: Laboratory Results - last 24 hr 03/04/25 14:56: WBC 9.2, RBC 4.60, Hgb 14.6, Hct 42.4, MCV 92.2, MCH 31.7, MCHC 34.4, RDW Std Deviation 48.4 H, RDW Coeff of Shailesh 14.3, Plt Count 203, MPV 9.8, Immature Gran % (Auto) 0.200, Neut % (Auto) 72.9 H, Lymph % (Auto) 15.3 L, [place] % (Auto) 10.6 H, Eos % (Auto) 0.5, Baso % (Auto) 0.5, Absolute Neuts (auto) 6.7, Absolute Lymphs (auto) 1.40, Nucleated RBC % 0, PT 24.8 H, INR 2.2, Sodium 140, Potassium 3.7, Chloride 104, Carbon Dioxide 22.3, Anion Gap 14, BUN 14, Creatinine 1.05, Estim Creat Clear Calc 69.52, Est GFR (MDRD) Non-Af 77, BUN/Creatinine Ratio 13.4, Glucose 97, Calcium 9.1 Radiography Diagnostic Testing: Radiology Impression Soft Tissue Neck CT 03/04/25 14:39 IMPRESSION: 1. No abscess or collection. No lymphadenopathy. 2. Edema of the soft tissues of the oropharynx, hypopharynx extending down to false cords, aryepiglottic folds and arytenoids. Airway is not compromised at this time. Consider infection, inflammation, angioedema. 3. Left vocal cord paralysis. The findings and impression of this report were called directly to Jennifer Goel at 4 p.m. Eastern standard time. Reading Location: [id number] Soft Tissue Neck X-Ray 03/04/25 14:40 IMPRESSION: Degenerative changes cervical spine. Unremarkable appearance of the soft tissues. Reading Location: [id number] Assessment & Plan Assessment/Plan (1) Dysphagia: PLAN: Plan 69-year-old deyanira was admitted with 3 days of sore throat and cough, chills and sweats along with bodyaches, managed with Tylenol but has dysphagia. Not able to keep the fluid down. Patient did not tolerate food. Denies chest pain or shortness of breath. No acute concern for recent esophageal food impaction. Negative stress test in the urgent care # Soft tissue swelling of oropharynx, hypopharynx, epiglottic folds - No sign of fluid collection or abscess and no airway compromise - Patient given IV fluids, Benadryl, Solu-Medrol and Pepcid -He does feel he is improving some since he received this medications, seems to be handling secretions at this time - Will continue steroids and famotidine and close monitoring -Continue n.p.o., keep head of bed elevated, pending clinical progress can try to advance diet tomorrow versus speech therapy consult for evaluation - No infectious signs or symptoms at this time and patient afebrile with no increased white blood cell count, no antibiotics seem to be indicated at this time -This happened after patient directly inhaled what was assumed to be rest and other corrosive substances, suspect this is secondary to that, no new medication changes or other acute changes that would seem to account for this change #Hx COPD -Continue home inhalers -Incentive spirometer #Paroxysmal Atrial Fibrillation -Rate control: On oral metoprolol, can consider IV metoprolol if patient will have prolonged n.p.o. -Anticoagulation: Coumadin, resume when patient cleared to tolerate p.o., INR presently therapeutic #Depression/anxiety -Continue home medications when safe to do so #DVT ppx: SCDs
[2025-03-05 07:36] LABS: Hematocrit 37.4 % (40-54); Hemoglobin 13.0 g/dL (13.0-16.5); Immature Granulocytes Count 0.020 X10^3/uL (0.0-0.0); Mean Corp Hgb Conc 34.8 g/dL (32-36); Mean Corpuscular Volume 90.8 fL (80-94); Mean Platelet Vol. 9.7 fl (6.2-12.0); NRBC Flagged by Analyzer 0 % (0-5); Platelet Count 179 K/mm3 (150-450); RBC Distribution Width CV 14.1 % (11.6-14.6); RBC Distribution Width SD 46.9 fl (35.1-43.9); Red Blood Count 4.12 M/mm3 (4.6-6.2); White Blood Count 8.0 K/mm3 (4.4-11.0)
[2025-03-05 08:04] LABS: Anion Gap 12 (5-15); BUN 15 mg/dL (4-19); BUN/Creat Ratio 18.7 RATIO (10-20); Calcium,Total 8.2 mg/dL (7.6-11.0); Carbon Dioxide 20.4 mmol/L (21.0-32.0); Chloride 109 mmol/L (98-108); Estimated Creatinine Clearance 86.22 ml/min (50-250); Glucose 154 mg/dL (70-99); Potassium 3.9 mmol/L (3.3-5.1)
[2025-03-05 08:06] LABS: Prothrombin Time (Protime)PT. 23.9 SECONDS (11.7-14.9)
--- NOTE | 2025-03-05 09:00 | CASEMGMT ---
Dx: Facial and neck edema LACE: 1 6-Clicks: 24 Medical record reviewed and patient evaluated for identification of discharge planning needs. Based on this review, at this time criteria are not present to indicate a need for discharge planning. Will remain available to assist with discharge planning needs as identified or requested.
[2025-03-05 09:05] VITALS: BP 103/49; PULSE 72; RESP 18; TEMP 36.4; O2SAT 96
[2025-03-05] MEDS: Famotidine 200 MG/20 ML MDV 20 MG in 0.9% Normal Saline (Pres. free 8 ML 300 MG IV (10:03)
[2025-03-05 10:49] VITALS: BP 103/49; PULSE 72
[2025-03-05] MEDS: Metoprolol(XL)Succ 25 MG Tablet PO (10:49)
--- NOTE | 2025-03-05 11:29 | DCINST_ITS ---
Discharge Instructions DC O2, CPAP, BIPAP needs Home O2 Discharge instructions: No Dressing / Incision Discharge Activity: Return to Normal Activity Weight Bearing Status: Weight bearing as tolerated Dressing / Incision Call your doctor if you observe: Fever of 101 or Higher, Coldness, Increased Pain, Numbness or Tingling, Change in Color, Inability to urinate, Inability to have a bowel movement, Shortness of breath, Dizziness, Fainting spells, Swelling in the ankles, Chest pain, Prolonged hiccupping, Increased palpitations (irregular heartbeat) and Calf discomfort Follow Up Care When: IN 2 WEEKS Test Results: Test results from this visit will be discussed in further detail at your follow- up appointment, if applicable. Discharge Plan Admission Admit Date/Time: 03/04/25 18:13 Primary Reason for Your Visit: Cervical dysphagia/sore throat possible undiagnosed viral disease Attending Provider: Bryan Sesay Primary Care Provider: Candy Feng Consulting Providers: Donna Cedeno Discharge Orders/Prescriptions Prescriptions: Continued fluticasone propionate [Flonase Allergy Relief] 50 mcg/actuation spray,suspension 1 spray INTRANASAL DAILY Rx Instructions: administer into each nostril ozhypqrlqqq-thhjvpzld-owm C-Mn [Glucosamine Chondroitin MaxStr] 500-400 mg capsule 2 cap PO DAILY famotidine 20 mg tablet 20 mg PO DAILY Qty: 90 3RF loratadine [Claritin] 10 mg tablet 10 mg PO DAILY Breztri Aerosphere 160-9-4.8 mcg/actuation HFA aerosol inhaler 2 inh inhalation BID Qty: 3 3RF Chloraseptic Max 15-10 mg lozenge 1 winnie mucous membrane .4 times daily PRN (Reason: sore throat) Qty: 15 0RF warfarin 5 mg tablet See Rx Instructions PO .COMPLEX Protocol: Dose Management Condition: Friday Dose/Route: 5 mg Instruction: 1 x 5 mg tablet Condition: Friday Dose/Route: 5 mg Instruction: 1 x 5 mg tablet Condition: Friday Dose/Route: 5 mg Instruction: 1 x 5 mg tablet Condition: Friday Dose/Route: 5 mg Instruction: 1 x 5 mg tablet Condition: Dose/Route: 2.5 mg Instruction: 0.5 x 5 mg tablets Condition: Friday Dose/Route: 5 mg Instruction: 1 x 5 mg tablet Condition: Friday Dose/Route: 5 mg Instruction: 1 x 5 mg tablet Protocol Text: Adjustment Start Date: Friday01/17/25 INR Value: 2.1 INR Date: 01/17/25 Recheck Date: 02/07/25 Rx Instructions: 5 MG FRIDAY, FRIDAY, FRIDAY, FRIDAY, FRIDAY, FRIDAY; FRIDAY TAKE 2.5 MG - please give pt extra tablets as dose changes often, please give pt extra tablets as dose changes often simvastatin 20 mg tablet 20 mg PO QHS Qty: 90 3RF metoprolol succinate 25 mg tablet extended release 24 hr 25 mg PO DAILY Qty: 90 3RF Referrals / Follow Up: Candy Feng MD [Primary Care Provider] - Within 2 Weeks Disposition Disposition (needs filled in before D/C Order can be placed): Home, Self Care
--- NOTE | 2025-03-05 11:35 | PCM.DC.SUM ---
Providers Date of Admission: 03/04/25 Primary Care Physician: Dr. Candy Feng MD Reason For Visit: FACIAL AND NECK EDEMA Diagnosis Discharge Diagnosis (1) Dysphagia: Status: Acute Code(s): R13.10 - Dysphagia, unspecified Plan 69-year-old deyanira was admitted with 3 days of sore throat and cough, chills and sweats along with bodyaches, managed with Tylenol but has dysphagia. Not able to keep the fluid down. Patient did not tolerate food. Denies chest pain or shortness of breath. No acute concern for recent esophageal food impaction. Negative stress test in the urgent care # Soft tissue swelling of oropharynx, hypopharynx, epiglottic folds, cervical dysphagia probably due to viral syndrome - No sign of fluid collection or abscess and no airway compromise - Patient given IV fluids, Benadryl, Solu-Medrol and Pepcid 03/05: It seems patient had viral syndrome with mild fever chills, sore throat and bodyaches. In the morning, he can swallow liquid and he swallowed his pills. Diet advanced from full diet to transitional diet. He tolerated well. He got the treatment as mentioned above. He has Chloraseptic lozenges and spray given by urgent care. Continued #Hx COPD -Continue home inhalers -Incentive spirometer #Paroxysmal Atrial Fibrillation -Rate control: On oral metoprolol, can consider IV metoprolol if patient will have prolonged n.p.o. -Anticoagulation: Coumadin, resume when patient cleared to tolerate p.o., INR presently therapeutic 03/05: INR is therapeutic #Depression/anxiety -Continue home medications when safe to do so Patient was admitted as inpatient for dysphagia with inflammation of the oropharynx/hypopharynx and epiglottic folds but improved with the IV steroid much sooner than expected at the time of admission therefore discharged. Medications at Discharge Home Medications fluticasone propionate 50 mcg/actuation nasal spray,suspension (Flonase Allergy Relief) 1 spray intranasal DAILY Allergies 02/29/20 kzipjkwnqnw-gmmdndxgl-xvh C-Mn 500 mg-400 mg capsule (Glucosamine Chondroitin Maximum Strength) 2 cap PO DAILY Joints releif 02/29/20 famotidine 20 mg tablet 20 mg PO DAILY GERD #90 tabs 11/28/21 loratadine 10 mg tablet (Claritin) 10 mg PO DAILY Allergies 06/12/22 simvastatin 20 mg tablet 20 mg PO QHS Cholesterol #90 tabs 06/29/24 budesonide 160 mcg-glycopyr 9 mcg-formot 4.8 mcg/actuation HFA inhaler (Breztri Aerosphere) 2 inh inhalation BID #3 ea 12/02/24 metoprolol succinate 25 mg tablet,extended release 24 hr 25 mg PO DAILY BP and Heart rate control #90 tabs 12/23/24 benzocaine 15 mg-menthol 10 mg lozenges (Chloraseptic Max) 1 winnie mucous membrane .4 times daily PRN sore throat #15 ea 03/04/25 warfarin 5 mg tablet See Rx Instructions PO .COMPLEX Blood thinner 03/04/25 Hospital Course Summary of Care Provided Hospital Course: Laboratory Results 03/04/25 14:56: WBC 9.2, RBC 4.60, Hgb 14.6, Hct 42.4, MCV 92.2, MCH 31.7, MCHC 34.4, RDW Std Deviation 48.4 H, RDW Coeff of Shailesh 14.3, Plt Count 203, MPV 9.8, Immature Gran % (Auto) 0.200, Neut % (Auto) 72.9 H, Lymph % (Auto) 15.3 L, [place] % (Auto) 10.6 H, Eos % (Auto) 0.5, Baso % (Auto) 0.5, Absolute Neuts (auto) 6.7, Absolute Lymphs (auto) 1.40, Nucleated RBC % 0, PT 24.8 H, INR 2.2, Sodium 140, Potassium 3.7, Chloride 104, Carbon Dioxide 22.3, Anion Gap 14, BUN 14, Creatinine 1.05, Estim Creat Clear Calc 69.52, Est GFR (MDRD) Non-Af 77, BUN/Creatinine Ratio 13.4, Glucose 97, Calcium 9.1 03/05/25 06:58: WBC 8.0, RBC 4.12 L, Hgb 13.0, Hct 37.4 L, MCV 90.8, MCH 31.6, MCHC 34.8, RDW Std Deviation 46.9 H, RDW Coeff of Shailesh 14.1, Plt Count 179, MPV 9.7, Immature Gran % (Auto) 0.200, Neut % (Auto) 88.6 H, Lymph % (Auto) 8.1 L, [place] % (Auto) 3.0, Eos % (Auto) 0.0, Baso % (Auto) 0.1, Absolute Neuts (auto) 7.1, Absolute Lymphs (auto) 0.65 L, Nucleated RBC % 0, PT 23.9 H, INR 2.1, Sodium 141, Potassium 3.9, Chloride 109 H, Carbon Dioxide 20.4 L, Anion Gap 12, BUN 15, Creatinine 0.82, Estim Creat Clear Calc 86.22, Est GFR (MDRD) Non-Af 96, BUN/Creatinine Ratio 18.7, Glucose 154 H, Calcium 8.2 Physical Exam Narrative Seen and examined. Denies sore throat. Can swallow his clear liquid diet and swallow pills. Physical exam: General: Alert, Oriented x3, Cooperative HEENT: Atraumatic, PERRLA, EOMI, Normocephalic. Oral: No Gingival or Mucosal Lesions/ Ulcerations. Erythema over posterior pharynx has resolved. No mass/ulcer noticed over floor of mouth, lateral or posterior pharyngeal wall. Base of tongue was visualized. Neck: Supple, No JVD, Negative Carotid Bruits Chest wall/Lungs: Air entry diminished in bilateral lung bases. No crepitation/rhonchi Cardiovascular: Regular rate and rhythm, Normal S1,S2, No M/G/R Abdomen: Bowel Sounds Present, Soft, Non Tender, Non-Distended : No dysuria. No renal angle tenderness. No suprapubic tenderness. Extremities: No edema, Capillary Refill Less than 3 Seconds Skin: No rashes, No breakdown Musculoskeletal: No Tenderness to Palpation of Joints or Extremities. Mild bilateral knee arthritis. Neurological: Cranial nerves II-XII grossly intact, DTR 2+/4. No acute focal neurological deficit. Psych/Mental Status: Normal Affect, Appropriate. Weight / BMI Weight Weight: 180 lb 8.937 oz Body Mass Index (BMI) 26.6 ABG / Lab / Microbiology Data 03/05/25 06:58 03/05/25 06:58 Laboratory: Laboratory Results - last 24 hr 03/04/25 14:56: WBC 9.2, RBC 4.60, Hgb 14.6, Hct 42.4, MCV 92.2, MCH 31.7, MCHC 34.4, RDW Std Deviation 48.4 H, RDW Coeff of Shailesh 14.3, Plt Count 203, MPV 9.8, Immature Gran % (Auto) 0.200, Neut % (Auto) 72.9 H, Lymph % (Auto) 15.3 L, [place] % (Auto) 10.6 H, Eos % (Auto) 0.5, Baso % (Auto) 0.5, Absolute Neuts (auto) 6.7, Absolute Lymphs (auto) 1.40, Nucleated RBC % 0, PT 24.8 H, INR 2.2, Sodium 140, Potassium 3.7, Chloride 104, Carbon Dioxide 22.3, Anion Gap 14, BUN 14, Creatinine 1.05, Estim Creat Clear Calc 69.52, Est GFR (MDRD) Non-Af 77, BUN/Creatinine Ratio 13.4, Glucose 97, Calcium 9.1 03/05/25 06:58: WBC 8.0, RBC 4.12 L, Hgb 13.0, Hct 37.4 L, MCV 90.8, MCH 31.6, MCHC 34.8, RDW Std Deviation 46.9 H, RDW Coeff of Shailesh 14.1, Plt Count 179, MPV 9.7, Immature Gran % (Auto) 0.200, Neut % (Auto) 88.6 H, Lymph % (Auto) 8.1 L, [place] % (Auto) 3.0, Eos % (Auto) 0.0, Baso % (Auto) 0.1, Absolute Neuts (auto) 7.1, Absolute Lymphs (auto) 0.65 L, Nucleated RBC % 0, PT 23.9 H, INR 2.1, Sodium 141, Potassium 3.9, Chloride 109 H, Carbon Dioxide 20.4 L, Anion Gap 12, BUN 15, Creatinine 0.82, Estim Creat Clear Calc 86.22, Est GFR (MDRD) Non-Af 96, BUN/Creatinine Ratio 18.7, Glucose 154 H, Calcium 8.2 Radiography Diagnostic Testing: Radiology Impression Soft Tissue Neck CT 03/04/25 14:39 IMPRESSION: 1. No abscess or collection. No lymphadenopathy. 2. Edema of the soft tissues of the oropharynx, hypopharynx extending down to false cords, aryepiglottic folds and arytenoids. Airway is not compromised at this time. Consider infection, inflammation, angioedema. 3. Left vocal cord paralysis. The findings and impression of this report were called directly to Jennifer Goel at 4 p.m. Eastern standard time. Reading Location: [facility] Soft Tissue Neck X-Ray 03/04/25 14:40 IMPRESSION: Degenerative changes cervical spine. Unremarkable appearance of the soft tissues. Reading Location: [facility] D/C Instructions Weight Bearing Status: Weight bearing as tolerated Call your doctor if you observe: Fever of 101 or Higher, Coldness, Increased Pain, Numbness or Tingling, Change in Color, Inability to urinate, Inability to have a bowel movement, Shortness of breath, Dizziness, Fainting spells, Swelling in the ankles, Chest pain, Prolonged hiccupping, Increased palpitations (irregular heartbeat) and Calf discomfort DC O2, CPAP, BIPAP Needs Home O2 Discharge instructions: No When: IN 2 WEEKS Meaningful Use Info Meaningful Use Meaningful Use Diagnoses (Choose all that apply): None applicable Discharge Plan Admission Admit Date/Time: 03/04/25 18:13 Primary Reason for Your Visit: Cervical dysphagia/sore throat possible undiagnosed viral disease Attending Provider: Bryan Sesay Primary Care Provider: Candy Feng Consulting Providers: Donna Cedeno Discharge Orders/Prescriptions Prescriptions: Continued fluticasone propionate [Flonase Allergy Relief] 50 mcg/actuation spray,suspension 1 spray INTRANASAL DAILY Rx Instructions: administer into each nostril lzizefbkyhm-kqupqxxko-kft C-Mn [Glucosamine Chondroitin MaxStr] 500-400 mg capsule 2 cap PO DAILY famotidine 20 mg tablet 20 mg PO DAILY Qty: 90 3RF loratadine [Claritin] 10 mg tablet 10 mg PO DAILY Breztri Aerosphere 160-9-4.8 mcg/actuation HFA aerosol inhaler 2 inh inhalation BID Qty: 3 3RF Chloraseptic Max 15-10 mg lozenge 1 winnie mucous membrane .4 times daily PRN (Reason: sore throat) Qty: 15 0RF warfarin 5 mg tablet See Rx Instructions PO .COMPLEX Protocol: Dose Management Condition: Friday Dose/Route: 5 mg Instruction: 1 x 5 mg tablet Condition: Friday Dose/Route: 5 mg Instruction: 1 x 5 mg tablet Condition: Friday Dose/Route: 5 mg Instruction: 1 x 5 mg tablet Condition: Friday Dose/Route: 5 mg Instruction: 1 x 5 mg tablet Condition: Dose/Route: 2.5 mg Instruction: 0.5 x 5 mg tablets Condition: Friday Dose/Route: 5 mg Instruction: 1 x 5 mg tablet Condition: Friday Dose/Route: 5 mg Instruction: 1 x 5 mg tablet Protocol Text: Adjustment Start Date: Friday01/17/25 INR Value: 2.1 INR Date: 01/17/25 Recheck Date: 02/07/25 Rx Instructions: 5 MG FRIDAY, FRIDAY, FRIDAY, FRIDAY, FRIDAY, FRIDAY; FRIDAY TAKE 2.5 MG - please give pt extra tablets as dose changes often, please give pt extra tablets as dose changes often simvastatin 20 mg tablet 20 mg PO QHS Qty: 90 3RF metoprolol succinate 25 mg tablet extended release 24 hr 25 mg PO DAILY Qty: 90 3RF Referrals / Follow Up: Candy Feng MD [Primary Care Provider] - Within 2 Weeks Disposition Disposition (needs filled in before D/C Order can be placed): Home, Self Care Charges/Coding Visit Charges Inpatient E&M: 87598 Disch Hosp >30min
[2025-03-05 11:39] VITALS: BP 103/49; PULSE 72; RESP 18; TEMP 36.4; O2SAT 96
== END 2025-03-05 12:03 | disposition home or self-care (01) | DRG 866 ==
LOC: ED 16:35 → PCU 20:15
PROVIDERS: Physician Assistant; Admitting Provider Internal Medicine; Emergency Provider Emergency Medicine; PCP Internal Medicine; Visit Provider Internal Medicine
DX: B34.9 Viral infection, unspecified (principal); D68.59 Other primary thrombophilia; J44.9 Chronic obstructive pulmonary disease, unspecified; F32.A Depression, unspecified; I48.0 Paroxysmal atrial fibrillation; J39.2 Other diseases of pharynx; E78.5 Hyperlipidemia, unspecified; G47.33 Obstructive sleep apnea (adult) (pediatric); F41.9 Anxiety disorder, unspecified; R13.10 Dysphagia, unspecified; R49.0 Dysphonia; Z79.01 Long term (current) use of anticoagulants; Z79.899 Other long term (current) drug therapy; Z87.891 Personal history of nicotine dependence
CPT/HCPCS: 36415; 70360; 70491; 80048; 85025; 85610; 94640; 97802; 99284; Q9967; A4216

== ENCOUNTER 2025-04-28 08:05 | Outpatient (RCR) | payer MEDICARE, OTHER, SELFPAY ==
[2025-04-28 08:25] LABS: INR Fingerstick 2.6
== END 2025-04-28 18:00 | disposition home or self-care (01) ==
LOC: LAB 08:05
PROVIDERS: PCP Internal Medicine; Referring Provider Physician Assistant Medical; Visit Provider Physician Assistant Medical
DX: Z79.01 Long term (current) use of anticoagulants (principal); I48.0 Paroxysmal atrial fibrillation; D68.59 Other primary thrombophilia
CPT/HCPCS: 36416; 85610

== ENCOUNTER 2025-06-09 07:50 | Outpatient (RCR) | payer MEDICARE, OTHER, SELFPAY ==
[2025-06-09 08:04] LABS: Mucous, Urine 0 SEEN /hpf (<or=2+); Squamous Epithelial Cells - UA 0 SEEN /hpf (0-5)
[2025-06-09 08:35] LABS: Hematocrit 41.7 % (40-54); Hemoglobin 13.8 g/dL (13.0-16.5); Immature Granulocytes Count 0.010 X10^3/uL (0.0-0.0); Mean Corp Hgb Conc 33.1 g/dL (32-36); Mean Corpuscular Volume 92.5 fL (80-94); Mean Platelet Vol. 9.2 fl (6.2-12.0); NRBC Flagged by Analyzer 0 % (0-5); Platelet Count 201 K/mm3 (150-450); RBC Distribution Width CV 12.8 % (11.6-14.6); RBC Distribution Width SD 43.0 fl (35.1-43.9); Red Blood Count 4.51 M/mm3 (4.6-6.2); White Blood Count 5.3 K/mm3 (4.4-11.0)
[2025-06-09 08:37] LABS: Color, Urine Yellow (Yellow); Glucose, Dipstick Normal (Normal); Ketone-Dipstick Negative (Negative); Leukocyte Esterase-Dipstick 25 /ul (Negative); Nitrite-Dipstick Negative (Negative); Occult Blood-Urine 250 /ul (Negative); Protein-Dipstick 100 mg/dl (Negative); Specific Gravity, Urine 1.015 (1.002-1.030); Urine Bilirubin Dipstick Negative (Negative)
[2025-06-09 08:42] LABS: Red Blood Cells-Urine > 100 SEEN /hpf (0-5)
[2025-06-09 08:47] LABS: Prothrombin Time (Protime)PT. 29.2 SECONDS (11.7-14.9)
[2025-06-09 09:23] LABS: AST(SGOT) 30 U/L (<=37); Alanine Aminotransfer ALT/SGPT 24 U/L (<=46); Albumin, Serum 4.2 g/dL (3.4-4.8); Alkaline Phosphatase 41 U/L (40-129); Anion Gap 9 (5-15); BUN 20 mg/dL (4-19); BUN/Creat Ratio 18.3 RATIO (10-20); Calcium,Total 9.0 mg/dL (7.6-11.0); Carbon Dioxide 25.2 mmol/L (21.0-32.0); Chloride 105 mmol/L (98-108); Cholesterol 142 mg/dL (<=200); Globulin 2.6 g/dL (2.2-4.2); Glucose 108 mg/dL (70-99); Low Density Lipoprotein Calc. 81 mg/dL; PSA,Total - Annual Screen 0.34 ng/mL (0.02-4.00); Potassium 4.5 mmol/L (3.3-5.1); Triglycerides 107 mg/dL; Very Low Density Lipoprotein 21 mg/dL (5-40); Vitamin B12 584 pg/mL (180-914); Vitamin D,25 Hydroxy 20.6 ng/mL (30-100); cholesterol:hdl ratio screen 3.40
== END 2025-06-18 18:00 | disposition home or self-care (01) ==
LOC: LAB 07:50
PROVIDERS: Internal Medicine Cardiovascular Disease; PCP Internal Medicine; Referring Provider Physician Assistant Medical; Visit Provider Physician Assistant Medical
DX: Z79.01 Long term (current) use of anticoagulants (principal); I48.0 Paroxysmal atrial fibrillation; D68.59 Other primary thrombophilia; E53.8 Deficiency of other specified B group vitamins; R31.9 Hematuria, unspecified; E55.9 Vitamin D deficiency, unspecified; F17.210 Nicotine dependence, cigarettes, uncomplicated; G47.33 Obstructive sleep apnea (adult) (pediatric); J44.9 Chronic obstructive pulmonary disease, unspecified; Z12.5 Encounter for screening for malignant neoplasm of prostate; Z13.220 Encounter for screening for lipoid disorders
CPT/HCPCS: 36415; 80053; 80061; 81001; 82306; 82607; 84153; 84443; 85025; 85610; G0103

== ENCOUNTER → 2025-06-14 | Outpatient (CLI) | payer MEDICARE, OTHER, SELFPAY ==
[2025-06-14 14:57] LABS: PSA,Total - Annual Screen 0.29 ng/mL (0.02-4.00)
--- OUTSIDE RECORDS SUMMARY | 2025-06-14 18:09 | XMS RPT_ITS | CCD ---
Author Organization [facility] Care Team Providers Care [place] [employer] Manager Name Role Phone Mitchell Hernandez MD Unavailable [phone] Marion Feng Primary Care Provider Dr. Marion Feng Referring Provider [phone] Sreekanth PHILLIP, PA Kassy Ramírez Attending Provider Ángela MAINTENANCE AIDE, MAINTENANCE AIDE-C Kylie Attending Provider Dr. Jose Hylton Attending Provider Dr. Marion Feng Attending Provider [phone] Dr. Marion Feng Primary Care Provider Dr. Marion Feng Referring Provider [phone] Dr. Brandon Anders Attending Provider MAGEN AYON [...] Provider Dr. Marion Feng Attending Provider [phone] Dr. Marion Feng Referring Provider [phone] Kiki MAINTENANCE AIDE, MAINTENANCE AIDEBailey Traore Attending Provider Dr. Marion Feng Primary Care Provider Dr. Marion Feng Referring Provider [phone] Dr. Jose Hylton Attending Provider [phone] Jose Hylton Other Provider Warner, Dr. Garcia Referring Provider [phone] Magen Ayon MD Primary Care Provider Dr. Marion Feng Primary Care Provider Dr. Marion Feng Referring Provider [phone] Dr. Brandon Anders Attending Provider Dr. Marion Feng Primary Care Provider Dr. Marion Feng Referring Provider [phone] Kiki MAINTENANCE AIDE, MAINTENANCE AIDE-Giovani Traore Attending Provider [phone] Dr. Jose Hylton Attending Provider [phone] Dr. Jose Hylton Other Provider Dr. [...] [phone] Dr. Marion Feng Attending Provider [phone] Kiki MAINTENANCE AIDE, MAINTENANCE AIDE-Giovani Traore Attending Provider Dr. Brandon Anders Attending Provider Dr. Marion Feng Primary Care Provider Dr. Marion Feng Referring Provider [phone] Kiki MAINTENANCE AIDE, MAINTENANCE AIDE-Giovani Traore Attending Provider Dr. Brandon Anders Attending Provider Jung HEDRICK, Marion Ramírez Primary Care Provider [phone] Dr. Marion Feng Primary Care Provider Dr. Marion Feng Referring Provider [phone] Kiki MAINTENANCE AIDE, MAINTENANCE AIDE-C Hi Traore Attending Provider Dr. Marion Feng Attending Provider [phone] Dr. Marion Feng Primary Care Provider Dr. Marion Feng Referring Provider [phone] Dr. Marion Feng Attending Provider Dr. Brandon Anders Attending Provider Dr. Marion Feng Primary Care Provider Dr. Marion Feng Referring Provider [phone] Dr. Jose Hylton Attending Provider PRIYANKA, INDIRESHA [...] Care Provider Dr. Marion Feng Attending Provider [phone] Marion Feng MD Primary Care Provider [phone] Dr. Marion Feng MD Primary Care Provider Dr. Jose Hylton MD Attending Provider [phone] Dr. Jose Hylton MD Referring Provider Roof MAINTENANCE AIDE-C, Hi H Other Provider Ángela MAINTENANCE AIDE-C, Kylie Attending Provider Ángela MAINTENANCE AIDE-C, Kylie Referring Provider Jung HEDRICK, Dr. Gupta Primary Care Provider Warner HEDRICK, Dr. Garcia Attending Provider Warner HEDRICK, Dr. Garcia Referring Provider Roof MAINTENANCE AIDE-C, Hi H Other Provider Jung HEDRICK, Dr. Gupta Referring Provider Marion Feng Primary Care Provider Kylie Motta Unavailable Jung HEDRICK, Dr. Gupta Primary Care Provider Warner HEDRICK, Dr. Garcia Attending Provider Warner HEDRICK, Dr. Garcia Referring Provider Roof MAINTENANCE AIDE-C, Hi H Other Provider Kassy Ramesh Attending Provider Kassy Ramesh Referring Provider [phone] SARAH LUNA Attending Unavailable JUNG, MARION Primary Care Unavailable ELI MANUEL Attending Unavailable JUNG, MARION Primary Care Unavailable SARAH LUNA Attending Unavailable JUNG, MARION Primary Care Unavailable SARAH LUNA Admitting Unavailable SARAH LUNA Attending Unavailable JUNG, MARION Primary Care Unavailable Jung HEDRICK, Dr. Gupta Primary Care Provider [phone] Ángela MAINTENANCE AIDE-C, Kylie Attending Provider Ángela MAINTENANCE AIDE-C, Kylie Referring Provider Renny Rhoades Attending Provider Wade HEDRICK, Dr. Pulido Emergency Provider Wilian HEDRICK, Dr. Thompson Admit Provider Wilian HEDRICK, Dr. Thompson Attending Provider Wilian HEDRICK, Dr. Thompson Other Provider [phone] Lázaro HEDRICK, Dr. Adams Attending Provider [phone] Lázaro HEDRICK, Dr. Adams Other Provider Kassy Ramesh Attending Unavail able Kassy Ramesh Referring Unavail able Jung, Marion Primary Care Unavailable Jung, Marion Primary Care Unavailable Motta MAINTENANCE AIDE, Kylie Referring Unavailable Motta MAINTENANCE AIDE, Kylie Attending Unavailable Jung, Marion Referring Unavailable Roof MAINTENANCE AIDE, Hi H Attending Unavailable Jung, Marion Primary Care Unavailable Yayo Muñiz Attending Unavailable Jung, Marion Referring Unavailable Motta MAINTENANCE AIDE, Kylie Attending Unavailable Jung, Marion Primary Care Unavailable Jung, Marion Referring Unavailable Renny Rhoades Attending Unavailable Jung, Marion Primary Care Unavailable Jung, Marion Primary Care Unavailable Jung, Marion Referring Unavailable Motta MAINTENANCE AIDE, Kylie Attending Unavailable Jung, Marion Primary Care Unavailable Jung, Marion Referring Unavailable Motta MAINTENANCE AIDE, Kylie Attending Unavailable Donna Cedeno Attending Unavailable Cedeno, Donna Consulting Unavailable Cedeno, Donna Admitting Unavailable Jung, Marion Primary Care Unavailable Bryan Sesay Attending Unavailable Lázaro, Bryan Consulting Unavailable Jung, Marion Primary Care Unavailable Motta MAINTENANCE AIDE, Kylie Referring Unavailable Motta MAINTENANCE AIDE, Kylie Attending Unavailable Jung, Marion Primary Care Unavailable Motta MAINTENANCE AIDE, Kylie Referring Unavailable Motta MAINTENANCE AIDE, Kylie Attending Unavailable Jung, Marion Primary Care Unavailable Kassy Ramesh Referring Unavail able Kassy Ramesh Attending Unavail able Roof MAINTENANCE AIDE, Hi H Consulting Unavailable Jung, Marion Primary Care Unavailable Warner, Jose Referring Unavailable Warner, Jose Attending Unavailable Roof MAINTENANCE AIDE, Hi H Consulting Unavailable Jung, Marion Primary Care Unavailable Warner, [place] Attending Unavailable Warner, [place] Referring Unavailable Cedeno, Donna Consulting Unavailable Cedeno, Donna Admitting Unavailable Lázaro Bryan Attending Unavailable Jung, Marion Primary Care Unavailable Roof MAINTENANCE AIDE, Hi H Consulting Unavailable Jung, Marion Primary Care Unavailable Warner, [place] Referring Unavailable Warner, Jose Attending Unavailable Jung, Marion Primary Care Unavailable Kassy Ramesh Attending Unavail able Kassy Ramesh Referring Unavail able Roof MAINTENANCE AIDE, Hi Traore Consulting Unavailable Marion Feng Primary Care Unavailable Jose Hylton Referring Unavailable Jose Hylton Attending Unavailable Allergies Allergy Classification Reported Allergen(s) Allergy Type Date of Onset Reaction(s) Facility (1 source) PLANT POLLENS; Translations: [PLANT POLLENS] allergy to substance 02-08-20 [facility] Work Phone: (10 sources) Seasonal allergy; Translations: [SEASONAL ALLERGIES] Allergy to substance 02-18-20 Other: See Comments [facility] Work Phone: (3 sources) Seasonal allergy Environmental allergy 02-18-20 Other [facility] Medications Current Medications Medication Drug Class(es) [...] Preprocedure, Administer 60 minutes prior to surgery. [id number] 200 actuat albuterol 0.09 mg/actuat metered dose inhaler (1 source) beta2-Adrenergic Agonist Start: 03-11-2025 Albut dorina Sulfate (Ventolin Hfa) 90 mcg/actuation HFA aerosol inhaler Active 2 NMA INHALATION Q4H as needed for shortness of breath or wheezing 18 March 11, 2025 12:00am benzocaine 15 mg / menthol 10 mg oral lozenge (4 sources) Standardized Chemical Allergen Start: 03-04-2025 Benzocaine-Menthol (Chloraseptic Max) 15-10 mg lozenge Active 1 NMA MUCOUS MEM .4 times daily as needed for sore throat 15 March 04, 2025 12:00am Budesonide-Glycopyr -Formoterol (20 sources) Corticosteroid, beta2-Adrenergic Agonist Start: 12-02-2024 Budesonide-Glyc opyr-F ormoterol (Breztri Aerosphere) 160-9-4.8 mcg/actuation HFA aerosol inhaler Active 2 NMA INHALATION TWICE A DAY 3 December 02, 2024 8:04am breathing Start: 12-02-2024 Budesonide-Gly copyr-Formoterol (Breztri Aerosphere) 160-9-4.8 mcg/actuation HFA aerosol inhaler Active 2 NMA INHALATION TWICE A DAY 3 December 02, 2024 8:04am Start: 12-02-2024 Budesonide-Gly copyr-Formoterol (Breztri Aerosphere) 160-9-4.8 mcg/actuation HFA aerosol inhaler Active 2 NMA INHALATION TWICE A DAY December 02, 2024 8:04am Start: 03-15-2024 End: 12-02-2024 Nhpowhvdmr-Bsmhgqop-Jbqivylv ol (Breztri Aerosphere) 160-9-4.8 mcg/actuation HFA aerosol inhaler Discontinued 2 NMA INHALATION TWICE A DAY 3 March 15, 2024 12:00am December 02, 2024 8:04am Start: 03-15-2024 End: 12-02-2024 Rnbsbflhae-Dajotkvn-Vudjfbbi ol (Breztri Aerosphere) 160-9-4.8 mcg/actuation HFA aerosol inhaler Discontinued 2 NMA INHALATION TWICE A DAY March 15, 2024 12:00am December 02, 2024 8:04am Start: 03-15-2024 Budesonide-Gly copyr-Formoterol (Breztri Aerosphere) 160-9-4.8 mcg/actuation HFA aerosol inhaler Active 2 NMA INHALATION TWICE A DAY 3 March 15, 2024 12:00am Budeson-Glycopyr rol-Formoterol (Breztri Aerosphere) 160-9-4.8 MCG/ACT aerosol Inhale 2 Inhalations 2 times daily. Active fluticasone propionate 0.05 mg/actuat metered dose nasal [...] NMA INTRANASAL DAILY February 29, 2020 12:00am Allergies administer into each nostril End: 01-14-2025 take [...] (Glucosamine Chondroitin Maxstr) 500-400 mg capsule Active 2 NMA PO DAILY February 29, 2020 12:00am Joints releif Start: 02-29-2020 Glucosamine-Ch ondroit-Vit C-Mn (Glucosamine Chondroitin Maxstr) 500-400 mg capsule Active 1 NMA PO DAILY February 29, 2020 12:00am Start: 02-29-2020 take 1 capsule by mo [facility] once daily Awsdudqmebp-Wijfuypru-Jpq C-Mn (Glucosamine Chondroitin Maxstr) 500-400 mg capsule Active 1 CAP PO DAILY February 28, 2020 11:00pm Start: 02-29-2020 take 1 capsule by [facility] once daily Mwulxrzttfs-Nrqelozlh-Bvy C-Mn (Glucosamine Chondroitin Maxstr) 500-400 mg capsule Active 1 CAP PO DAILY February 29, 2020 12:00am VCYGUQDVSHF-ZIGBDYOLB-FDY C- MN PO (6 sources) take 1 capsule by mouth once daily DTVSCPKLJSR-NLIGTAPGC-DBR C-MN PO Take 1 capsule by mouth daily. Active loratadine 10 mg oral tablet (20 sources) Star t: 05-22 take 1 tablet by mouth once daily Loratadine (Claritin) 10 mg tablet Active 10 mg PO DAILY June 12, 2022 1:00am Allergies Comment on above: Take 10 mg by [...] immediate release tablet 5 mg perflutren lipid microspheres 1.3 mL in NaCl (PF) 0.9% 10 mL injection (DEFINITY) (6 sources) Start: 08-23-2022 End: 11-23-2023 perflutren lipid microspheres 1.3 mL in NaCl (PF) 0.9% 10 mL injection (DEFINITY) warfarin sodium 5 mg oral tablet (20 sources) Vitamin K Antagonist Start: 03-04-2025 Warfarin 5 mg tablet Active 0 mg PO .COMPLEX March 04, 2025 12:00am Blood thinner 5 MG FRIDAY, FRIDAY, FRIDAY, FRIDAY, FRIDAY, FRIDAY; FRIDAY TAKE 2.5 MG - please give pt extra tablets as dose changes often, please give pt extra tablets as dose changes often Please contact the information source for Protocol details. Start: 01-14-2025 End: 01-14-2025 5 mg, Oral, Once Warfarin, O n 01/14/25 at 1700, For 1 dose Start: 01-14-2025 End: 01-14-2025 5 mg, Oral, Once Warfarin, O n 01/14/25 at 1700, For 1 dose Start: 01-13-2025 [...] 3 days weekly as directed WARFARIN SODIUM [id number] Jennifer Porras LPN Start: 05-24-2013 End: 03-04-2025 take 1 tablet by mouth once daily Warfarin 5 mg tablet Discontinued 5 mg PO .COMPLEX 180 7 June 28, 2024 5:09pm March 04, 2025 4:37pm 5 mg orally daily: please give pt [...] tablet (5mg) al other days as directed. Completed/Discontinued Medications Medication Drug Class(es) Dates Sig [...] hydrochloride 150 mg extended release oral tablet (15 sources) Aminoketone Start: 01-11-2025 End: 01-14-2025 take 150 mg by mouth twice daily 150 mg, Oral, 2 times daily, First dose on Fri01/11/25 at 0930, Do not crush, chew, or split. Start: 12-02-2024 End: 03-04-2025 take 1 tablet by mouth twice daily, then take 1 tablet by mouth every twelve hours Bupropion Hcl (Smoking Deter) 150 mg tablet extended release 12 hr Discontinued 150 mg PO TWICE A DAY 60 December 02, 2024 12:00am March 04, 2025 9:07pm Smoking greater than 40 pack years Nicotine [...] CPAP (9 sources) CPAP daily at be dtime. 0 Active CPAP Comment on above: daily at bedtime. docusate sodium 50 mg / sennosides, long-term 8.6 mg oral tablet (2 sources) Start: 01-12-20 End: 01-15-20 take 2 tablets by mouth once daily 2 tablet, Oral, Daily, First dose on Fri01/11/25 at 0945 doxycycline hyclate 100 mg oral tablet (19 sources) Tetracycline-clas s Drug Start: 06-12-20 End: 06-19-20 take 1 tablet by mouth twice daily Doxycycline Hyclate 100 mg tablet Discontinued 100 mg PO TWICE A DAY 14 7 0 June 12, 2022 1:00am June 18, 2022 1:00am June 19, 2022 1:03am 0.8 ml enoxaparin sodium 100 mg/ml prefilled syringe (20 sources) Low Molecular Weight Heparin Start: 12-29-19 End: 03-04-20 inject 80 mg by subcutaneous injection every twelve hours Enoxaparin 80 mg/0.8 mL syringe Discontinued 80 mg SC .COMPLEX 8 December 28, 2024 12:00am March 04, 2025 3:18pm 80 mg subcutaneously every 12 hours to [...] mg/mL syringe Discontinued 90 mg SC Q12H 10 October 15, 2021 12:00am October 16, 2021 10:37am Bridging for surgery Start: 10-15-2021 End: 10-16-2021 Enoxaparin Discontinued 90 M G SC Q12H October 15, 2021 12:00am October 16, 2021 10:37am Start: 04-18-2021 End: 09-07-2021 Enoxaparin (Lovenox) 100 mg/ mL syringe Discontinued 100 mg SC Q12H 12 April 18, 2021 3:31pm September 07, 2021 3:38pm ezetimibe 10 mg oral tablet (20 sources) Dietary Cholesterol Absorption Inhibitor Start: 05-24-2013 End: 02-29-2020 take 1 tablet by mouth once daily Ezetimibe 10 MG tablet Discontinued 10 mg PO DAILY May 24, 2013 1:00am February 29, 2020 9:18pm famotidine 20 mg oral tablet (20 sources) Histamine-2 Receptor Antagonist Start: 07-05-2020 End: 01-14-2025 take 1 tablet by mouth once daily Famotidine 20 mg tablet Discontinued 20 mg PO DAILY 90 December 20, 2020 8:28am November 28, 2021 8:46am Comment on above: Take 20 mg by mouth once daily. flecainide acetate 100 mg oral tablet (20 sources) Antiarrhythmic Start: 05-15-2022 End: 10-03-2022 take 1 tablet by mouth every twelve hours Flecainide 100 mg tablet Discontinued 100 mg PO Q12H May 15, 2022 12:00am October 03, 2022 10:04am Comment on above: Take 1 tablet by florin th every 12 hours. 120 actuat formoterol fumarate 0.0048 mg/actuat / glycopyrrolate 0.009 mg/actuat metered dose inhaler (20 sources) beta2-Adrenergic Agonist Start: 12-09-2023 End: 03-15-2024 Glycopyrrolate-Fo rmoterol (Bevespi Aerosphere) 9-4.8 mcg HFA aerosol inhaler [...] not swallow. furosemide 20 mg oral tablet (19 sources) Loop Diuretic Start: 07-17-2022 End: 12-02-2022 take 1 tablet by mouth once daily Furosemide 20 mg tablet Discontinued 20 mg PO DAILY 3 July 17, 2022 1:00am December 02, 2022 8:09am GLUCOSAMINE-CHONDRO IT-VIT C-MN (1 source) Start: 02-08-2020 GLUCOSAMINE CHONDR 1500 COMPLX CAPS 2 capsules daily GLUCOSAMINE-CHO NDROIT-VIT C-MN [id number] Jennifer Porras LPN 1 ml HYDROmorphone hydrochloride [...] Start: 03-17-2020 take 2 tablets by mo [facility] every hour metoprolol succinate ER (TOPROL XL) [...] on above: Take 2 tablets by mo [facility] once daily. Per Dr. Hylton. Take 1 tablet by florin once daily. Miscellaneous Medical Supply (COMPRESSION STOCKINGS) [facility] (9 sources) Start: Miscellaneous Medical Supply (COMPRESSION STOCKINGS) [facility] Indications: Unspecified venous (peripheral) insufficiency Use [...] disintegrating tablet 4 mg polyethylene glycol [id number] mg powder for oral solution (2 sources) Osmotic Laxative Start: End: 17 g, Oral, Daily, First dose on Fri01/11/25 at 0945 simvastatin 20 mg oral tablet (20 sources) HMG-CoA Reductase Inhibitor Start: End: take 1 tablet by mouth at bedtime Simvastatin 20 mg tablet Discontinued 20 mg PO AT BEDTIME 90 3 June 30, 2023 11:05am June 29, 2024 1:33pm Start: 02-08-2020 SIMVASTATIN 20 MG TABS 1 tablet 3 days weekly SIMVASTATIN [id number] Jennifer Porras LPN Comment on above: Take [...] 1 Puff as ins tructed once daily. Problems Active Problems Problem Classification Problem Date Documented Da te Episodic/Chronic Cardiac dysrhythmias (20 sources) Permanent atrial fibrillation; Translations: [Permanent atrial fibrillation] Onset: 04-27-2020 Chronic Comment on above: new onset 02/18/2020; DCCV on 06/04/2022; RF ablation 08/05/2022 at [facility]; Chronic obstructive pulmonary disease and bronchiectasis (20 [...] sources) Long-term current use of anticoagulant; Translations: [longterm (current) use of anticoagulants] 04-25-2020 Episodic Other aftercare (13 sources) Patient encounter status; Translations: [Encounter for therapeutic drug level monitoring] 05-15-2022 Episodic Other aftercare (8 sources) Long-term current use of drug therapy; Translations: [Encounter for therapeutic drug level monitoring] 05-15-2022 Episodic Other aftercare (1 source) Anticoagulant effect; Translations: [longterm (current) use of anticoagulants] 12-23-2024 Episodic Other gastrointestinal disorders (6 sources) Dysphagia; Translations: [Dysphagia, unspecified] 03-04-2025 Episodic Other gastrointestinal disorders (1 source) Dysphagia, unspecified; Translations: [Dysphagia, unspecified] Onset: 03-07-2025 Episodic Other injuries and conditions due to external causes (3 sources) Angioedema; Translations: [Angioneurotic edema, initial encounter] 03-04-2025 Episodic Other injuries and conditions due to external causes (1 source) Angioneurotic edema, initial encounter; Translations: [Angioneurotic edema, initial encounter] Onset: 03-17-2025 Episodic Other lower respiratory disease (20 sources) [...] Translations: [Solitary pulmonary nodule] 01-14-2025 Episodic Other nutritional; endocrine; and metabolic disorders (10 sources) Obese class I; Translations: [Obesity, unspecified] Onset: 04-27-2020 04-27-2020 Chronic Other nutritional; endocrine; and metabolic disorders (1 source) Obesity, unspecified; Translations: [Obesity, Class I, BMI 30-34.9] Onset: 04-27-2020 Chronic Other skin disorders (16 sources) Skin lesion; Translations: [Disorder of the skin and subcutaneous tissue, unspecified] 12-02-2022 Episodic Other skin disorders (4 sources) Disorder of the skin and subcutaneous tissue, unspecified; Translations: [Unspecified disorder of skin and subcutaneous tissue] 12-02-2022 Episodic Other upper respiratory disease (9 sources) Allergic rhinitis; Translations: [Allergic rhinitis, unspecified] Onset: 10-17-2014 10-17-2014 Chronic Other upper respiratory disease (3 sources) Dysphonia; Translations: [Dysphonia] 03-04-2025 Episodic Other upper respiratory infections (20 sources) Acute upper respiratory infection; Translations: [Acute upper respiratory infection, unspecified] Onset: 03-04-2025 06-12-2022 Episodic Phlebitis; thrombophlebitis and thromboembolism (20 sources) Thromboembolism of vein; Translations: [Chronic embolism and thrombosis of unspecified deep veins of right lower extremity] Onset: 06-01-2019 Chronic Comment on above: Residual codes; unclassified (20 sources) Obstructive sleep apnea syndrome; Translations: [Obstructive sleep apnea (adult) (pediatric)] Onset: 12-29-2024 03-15-2024 Chronic Comment on above: AHI 14.9 treated wit h CPAP 12 cm of water with residual AHI of 0.3 Residual codes; unclassified (20 sources) History of operative procedure on shoulder; Translations: [Other specified postprocedural states] 05-15-2022 Episodic Comment on above: 10/2021 [facility] Residual codes; unclassified (19 sources) History of cardioversion; Translations: [Personal history of other medical treatment] 06-11-2022 Episodic Residual codes; unclassified (16 sources) H/O: atrial fibrillation; Translations: [Other specified postprocedural states] 12-02-2022 Episodic Comment on above: RF ablation of all 4 pulmonary veins with entrance and exit blocks confirmed on 08/05/2022 at [facility] with Dr. Aylin turner; Residual codes; [...] [Persistent atrial fibrillation (HCC)] Onset: 08-05-2022 Unclassified (17 sources) Nodule of upper lobe of right lung; Translations: [R91.1 - Solitary pulmonary nodule] Unclassified (2 sources) New Patient; Translations: [New Patient] Onset: 12-23-2024 Past or Other Problems Problem Classification Problem Date Documented Date Episodic/Chronic Cardiac dysrhythmias (12 sources) Sinus bradycardia; Translations: [Bradycardia, unspecified] Onset: 05-19-2017 05-19-2017 Episodic Other aftercare (9 sources) longterm (current) use of anticoagulants; Translations: [Long-term (current) use of anticoagulants] Onset: 01-18-2025 06-12-2022 Episodic Other connective tissue disease (1 source) Subacromial impingement; Translations: [Impingement syndrome of right shoulder] Onset: 02-10-2020 02-10-2020 Episodic Other diseases of veins and lymphatics (9 sources) Peripheral venous insufficiency; Translations: [Venous insufficiency (chronic) (peripheral)] Onset: 04-01-2005 02-18-2020 Episodic Other lower respiratory disease (1 source) Dyspnea, unspecified; Translations: [Dyspnea, unspecified type] Onset: 11-05-2022 Episodic Other lower respiratory disease (1 source) Other nonspecific abnormal finding of lung field; Translations: [Other nonspecific abnormal finding of lung field] Onset: 12-14-2024 Episodic Residual codes; unclassified (8 sources) Other [...] Test Name Value Interpretation Reference Range Facility Protime w/INR Fingerstickon 04-28-2025 INR Coag (PPP) [Relative time] 2.6 {INR} Normal [facility] Comment on above: Result Comment: Crit ical Value > 4.0 Performed By: #### L [id number] #### [facility] [address] [place], [place], [address] Protime [place] 27.5 SEC High 11.7-14.9 [facility] Comment on above: Performed By: #### L [id number] #### [facility] [address] [place], [place], [address] Pulmonary Visit Reporton Pulmonary Visit Report [facility] [address] [place], [place] [address] OFFICE VISIT Date of Service: 03/11/25 MR#: [id number] Acct: [id number] Name: RICH JAMES I Rep #: [id number] : 1955 Provider: ANA Motta Age/Sex: 69/M Location: [facility] Status: Signed Assessment and Plan Assessment and Plan (1) Right upper lobe pulmonary nodule: Status: Acute Comment: 1.6X1.5X1.3X2.3cm Plan: Status post successful wedge resection. Pathology negative. We will assume annual LDCT at this point. (2) Stage 1 mild COPD by GOLD [...] be arranged within 1-2 days. Follow-up in December 2025. (3) FIFI (obstructive sleep apnea): Status: Chronic Comment: AHI 14.9 treated with CPAP 12 cm of water with residual AHI of 0.3 Plan: Not addressed at this office visit. He is using and benefiting from PAP therapy. Follow-up in December 2025. (4) Smoking greater than 40 pack years: Status: Chronic Plan: He was successful at complete smoking cessation. Encouraged ongoing smoking cessation. He remains appropriate for LDCT due in November 2025. Follow-up in December 2025 to discuss test results. 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 He seems to be asymptomatic at this time. We will need to monitor this moving forward as it may cause symptoms, such as hoarseness, or shortness of breath. Orders: Orders Low Dose CT Lung Screening Today F17.200 - Nicotine dependence, unspecified, uncomplicated, F17.210 - Nicotine dependence, cigarettes, uncomplicated Medications: New albuterol sulfate 90 mcg/actuation (Ventolin HFA) 2 inhalations inhalation Q4H PRN 18 grams 11RF shortness of breath or wheezing Plan Details Additional Comments: This note was generated with [employer] dictation software. It may contain incorrect words, spelling, and punctuation that were not noted in checking the note before signing. I have spent 35 minutes today reviewing labs, records and history. Time includes coordinating care, interpretation of tests, discussion with patient's other health care providers via telephone. This also includes time I spent with the patient for exam, treatment plan and education as well as documenting clinical information. HPI 3 M FU Chief Complaint: Partial lobectomy follow-up HPI Comments Details: This patient presents to the office today to follow-up after right upper lobe wedge resection on January 10, 2025. He is ambulatory and currently on room air. He is accompanied today by his . He was seen in the urgent care on March 04, 2025 for sore throat x 3 days. Negative for strep throat. Recommended Chloraseptic. He was then seen in the emergency department at [facility] and was diagnosed with have an an allergic reaction to an unknown trigger. The patient was treated with Benadryl and systemic corticosteroids. Soft tissue neck CT with contrast completed on March 04, 2025 showed edematous tissue in the oropharynx, hypopharynx. Also noted to have soft tissue edema around the larynx, false cords, aryepiglottic folds and arytenoids. Edema extends to the upper esophageal sphincter region. Impression is that this would be consistent with infection, inflammation or angioedema. 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 Hospital office notes from January 10, 2025 through January 13, 2025. A wedge resection from the right upper lobe measured 9.8 x 4 x 1.5 cm was removed. Tissue was negative for malignancy. 3 lymph nodes resected as well, negative. The patient reports that his hospital stay went very well. He was pleased with the surgeon and all the care that he received. He felt relieved to know that the area of concern is gone and was negative for malignancy. He is compliant with the use of Breztri 2 puffs twice daily. He is rinsing his mouth out after each use. He denies any side effects, such as thrush. He is also utilizing Claritin daily. He has not recently needed to utilize his albuterol rescue inhaler. He was successful at complete smoking cessation with the use of Wellbutrin. He also reports that the possibility of cancer scared me. He states that currently he has no desire to smoke. He denies any difficulty with shortness of breath. He has an occasional dry cough, he denies any hemoptysis. He is not had any wheezing, chest tightness, chest pain or palpitations. He also denies any fever, chills or body aches. He wakes up feeling rested and refr (more content not included)... Normal [facility] Absolute lymphocyte countOrd ered By: Donna Cedeno on 03-05-2025 Lymphocytes Auto (Unsp spec) [#/Vol] 0.65 10*3/uL Low 0.83-4.51 [facility] Absolute neutrophil countOrd ered By: Donna Cedeno on 03-05-2025 Neutrophils (Bld) [#/Vol] 7.1 10*3/uL 2.0-7.7 [facility] Anion gap in Serum or Plasma Ordered By: Donna Cedeno on 03-05-2025 Anion gap [Moles/Vol] 12 mmol/L 5-15 [facility] Automated lymphocyte count a s percentage of total leukocytesOrdered By: Donna Cedeno on 03-05-2025 Lymphocytes/100 WBC Auto (Unsp spec) 8.1 % Low 19-41 [facility] BUN/creatinine ratioOrdered By: Donna Cedeno on 03-05-2025 Urea nitrogen/Creatinine [Mass ratio] 18.7 mg/mg 10- [facility] Basic Metabolic Profile (BMP )on 03-05-2025 BUN/CRE 18.7 RATIO Normal - [facility] Comment on above: Performed By: #### L 300.3900, L500.2500, L100.0100 #### [facility] [address] [place], [address] Calcium [Mass/Vol] 8.2 mg/dL Normal 7.6-11.0 [facility] Comment on above: Performed By: #### L 300.3900, L500.2500, L100.0100 #### [facility] [address] [place], [address] Chloride [Moles/Vol] 109 mmol/L High 98-108 [facility] Comment on above: Performed By: #### L 300.3900, L500.2500, L100.0100 #### [facility] [address] [place], [address] CO2 [Moles/Vol] 20.4 mmol/L Low 21.0-32.0 [facility] Comment on above: Performed By: #### L 300.3900, L500.2500, L100.0100 #### [facility] [address] [place], [address] Creatinine [Mass/Vol] 0.82 mg/dL Normal 0.70-1.20 [facility] Comment on above: Performed By: #### L 300.3900, L500.2500, L100.0100 #### [facility] [address] [place], [address] ECRCL 86.22 ml/min Normal 50-250 [facility] Comment on above: Performed By: #### L 300.3900, L500.2500, L100.0100 #### [facility] [address] [place], [address] GAP 12 Normal 5-15 [facility] Comment on above: Performed By: #### L 300.3900, L500.2500, L100.0100 #### [facility] [address] [place], [address] GFR/1.73 sq M.predicted among non-blacks MDRD (S/P/Bld) [Vol rate/Area] 96 mL/min/{1.73_m2} Normal >60 [facility] Comment on above: Result Comment: mL/m in/1.73m2 CKD-EPI Creatinine Equation (2020) Performed By: #### L 300.3900, L500.2500, L100.0100 #### [facility] [address] [place], [address] Glucose [Mass/Vol] 154 mg/dL High 70-99 [facility] Comment on above: Performed By: #### L 300.3900, L500.2500, L100.0100 #### [facility] [address] [place], [address] Potassium [Moles/Vol] 3.9 mmol/L Normal 3.3-5.1 [facility] Comment on above: Performed By: #### L 300.3900, L500.2500, L100.0100 #### [facility] [address] [place], [address] Sodium [Moles/Vol] 141 mmol/L Normal 133-145 [facility] Comment on above: Performed By: #### L 300.3900, L500.2500, L100.0100 #### [facility] [address] [place], [address] Urea nitrogen [Mass/Vol] 15 mg/dL Normal 4-19 [facility] Comment on above: Performed By: #### L 300.3900, L500.2500, L100.0100 #### [facility] [address] [place], [address] Basophil percentageOrdered B y: Donan Cedeno on 03-05-2025 Basophils/100 WBC (Bld) 0.1 % 0-1 [facility] CBC W/Diff, Automatedon 02-18 Absolute Lymph 0.65 X10 3/uL Low 0.83-4.51 [facility] Comment on above: Performed By: #### L 300.3900, L500.2500, L100.0100 #### [facility] [address] [place], [address] Absolute Neut 7.1 X10 3/uL Normal 2.0-7.7 [facility] Comment on above: Performed By: #### L 300.3900, L500.2500, L100.0100 #### [facility] [address] [place], [address] Basophils/100 WBC (Bld) 0.1 % Normal 0-1 [facility] Comment on above: Performed By: #### L 300.3900, L500.2500, L100.0100 #### [facility] [address] [place], [address] Eosinophils/100 WBC (Bld) 0.0 % Normal 0-5 [facility] Comment on above: Performed By: #### L 300.3900, L500.2500, L100.0100 #### [facility] [address] [place], [address] Erythrocyte distribution width (RBC) [Ratio] 14.1 % Normal 11.6-14.6 [facility] Comment on above: Performed By: #### L 300.3900, L500.2500, L100.0100 #### [facility] [address] [place], [address] Hematocrit (Bld) [Volume fraction] 37.4 % Low 40-54 [facility] Comment on above: Performed By: #### L 300.3900, L500.2500, L100.0100 #### [facility] [address] [place], [address] Hemoglobin (Bld) [Mass/Vol] 13.0 g/dL Normal 13.0-16.5 [facility] Comment on above: Performed By: #### L 300.3900, L500.2500, L100.0100 #### [facility] [address] [place], [address] IG% 0.200 Normal 0.0-0.9 [facility] Comment on above: Result Comment: IG% - Immature Granulocytes (promyelocytes, myelocytes and metamyelocytes) > 1% indicates that a LEFT SHIFT is Present. Performed By: #### L 300.3900, L500.2500, L100.0100 #### [facility] [address] [place], [address] Lymphocytes/100 WBC (Bld) 8.1 % Low 19-41 [facility] Comment on above: Performed By: #### L 300.3900, L500.2500, L100.0100 #### [facility] [address] [place], [address] MCH (RBC) [Entitic mass] 31.6 pg Normal 27.0-32.0 [facility] Comment on above: Performed By: #### L 300.3900, L500.2500, L100.0100 #### [facility] [address] [place], [address] MCHC (RBC) [Mass/Vol] 34.8 g/dL Normal 32-36 [facility] Comment on above: Performed By: #### L 300.3900, L500.2500, L100.0100 #### [facility] [address] [place], [address] MCV (RBC) [Entitic vol] 90.8 fL Normal 80-94 [facility] Comment on above: Performed By: #### L 300.3900, L500.2500, L100.0100 #### [facility] [address] [place], [address] Monocytes/100 WBC (Bld) 3.0 % Normal 0-10 [facility] Comment on above: Performed By: #### L 300.3900, L500.2500, L100.0100 #### [facility] [address] [place], [address] Neutrophils/100 WBC (Bld) 88.6 % High 47-70 [facility] Comment on above: Performed By: #### L 300.3900, L500.2500, L100.0100 #### [facility] [address] [place], [address] Nucleated RBC (Bld) [#/Vol] 0 10*3/uL Normal 0-5 [facility] Comment on above: Performed By: #### L 300.3900, L500.2500, L100.0100 #### [facility] [address] [place], [address] Platelet mean volume (Bld) [Entitic vol] 9.7 fL Normal 6.2-12.0 [facility] Comment on above: Performed By: #### L 300.3900, L500.2500, L100.0100 #### [facility] [address] [place], [address] Platelets (Bld) [#/Vol] 179 10*3/uL Normal 150-450 [facility] Comment on above: Performed By: #### L 300.3900, L500.2500, L100.0100 #### [facility] [address] [place], [address] RBC (Bld) [#/Vol] 4.12 10*6/uL Low 4.6-6.2 [facility] Comment on above: Performed By: #### L 300.3900, L500.2500, L100.0100 #### [facility] [address] [place], [address] RDW SD 46.9 fl High 35.1-43.9 [facility] Comment on above: Performed By: #### L 300.3900, L500.2500, L100.0100 #### [facility] [address] [place], [address] WBC (Bld) [#/Vol] 8.0 10*3/uL Normal 4.4-11.0 [facility] Comment on above: Performed By: #### L 300.3900, L500.2500, L100.0100 #### [facility] [address] [place], [address] Carbon dioxide, total [Moles /volume] in Central venous bloodOrdered By: Donna Cedeno on 03-05-2025 CO2 [Moles/Vol] 20.4 mmol/L Low 21.0-32.0 [facility] Chloride assayOrdered By: Kenji Cedeno on 03-05-2025 Chloride [Moles/Vol] 109 mmol/L High 98-108 [facility] Discharge Instructionon 02-18 Discharge Instruction [facility] Medical Records Department [address] [place] [address] Instructions for Home/Discharge Instructions 03/05/25 1129 MR#: [id number] Acct: [id number] Name: RICH JAMES I Rep #: [id number] : [id number] 69 From: Bryan Sesay MD PCP: Dr. Marion Feng MD Status:ADM IN Discharge Instructions DC O2, CPAP, BIPAP needs Home O2 Discharge instructions: No Dressing / Incision Discharge Activity: Return to Normal Activity Weight Bearing Status: Weight bearing as tolerated Dressing / Incision Call your doctor if you observe: Fever of 101 or Higher, Coldness, Increased Pain, Numbness or Tingling, Change in Color, Inability to urinate, Inability to have a bowel movement, Shortness of breath, Dizziness, Fainting spells, Swelling in the ankles, Chest pain, Prolonged hiccupping, Increased palpitations (irregular heartbeat) and Calf discomfort Follow Up Care When: IN 2 WEEKS Test Results: Test results from this visit will be discussed in further detail at your follow-up appointment, if applicable. Discharge Plan Admission Admit Date/Time: 03/04/25 18:13 Primary Reason for Your Visit: Cervical dysphagia/sore throat possible undiagnosed viral disease Attending Provider: Bryan Sesay Primary Care Provider: Marion Feng Consulting Providers: Donna Cedeno Discharge Orders/Prescriptions Prescriptions: Continued fluticasone propionate [Flonase Allergy Relief] 50 mcg/actuation spray,suspension 1 spray INTRANASAL DAILY Rx Instructions: administer into each nostril glucosamine-chondroit -vit C-Mn [Glucosamine Chondroitin MaxStr] 500-400 mg capsule 2 cap PO DAILY famotidine 20 mg tablet 20 mg PO DAILY Qty: 90 3RF loratadine [Claritin] 10 mg tablet 10 mg PO DAILY Breztri Aerosphere 160-9-4.8 mcg/actuation HFA aerosol inhaler 2 inh inhalation BID Qty: 3 3RF Chloraseptic Max 15-10 mg lozenge 1 winnie mucous membrane .4 times daily PRN (Reason: sore throat) Qty: 15 0RF warfarin 5 mg tablet See Rx Instructions PO .COMPLEX Protocol: Dose Management Condition: Friday Dose/Route: 5 mg Instruction: 1 x 5 mg tablet Condition: Friday Dose/Route: 5 mg Instruction: 1 x 5 mg tablet Condition: Friday Dose/Route: 5 mg Instruction: 1 x 5 mg tablet Condition: Friday Dose/Route: 5 mg Instruction: 1 x 5 mg tablet Condition: Dose/Route: 2.5 mg Instruction: 0.5 x 5 mg tablets Condition: Friday Dose/Route: 5 mg Instruction: 1 x 5 mg tablet Condition: Friday Dose/Route: 5 mg Instruction: 1 x 5 mg tablet Protocol Text: Adjustment Start Date: Friday01/17/25 INR Value: 2.1 INR Date: 01/17/25 Recheck Date: 02/07/25 Rx Instructions: 5 MG FRIDAY, FRIDAY, FRIDAY, FRIDAY, FRIDAY, FRIDAY; FRIDAY TAKE 2.5 MG - please give pt extra tablets as dose changes often, please give pt extra tablets as dose changes often simvastatin 20 mg tablet 20 mg PO QHS Qty: 90 3RF metoprolol succinate 25 mg tablet extended release 24 hr 25 mg PO DAILY Qty: 90 3RF Referrals / Follow Up: Marion Feng MD [Primary Care Provider] - Within 2 Weeks Disposition Disposition (needs filled in before D/C Order can be placed): Home, Self Care 03/05/25 1135 Bryan Sesay MD CC: Dr. Marion Feng MD; Dr. Donna Cedeno MD Signed Normal [facility] Eosinophil percentageOrdered By: Donna Cedeno on 03-05-2025 Eosinophils/100 WBC (Bld) 0.0 % 0-5 [facility] Erythrocyte distribution wid th ratioOrdered By: Donna Cedeno on 03-05-2025 Erythrocyte distribution width (RBC) [Ratio] 14.1 % 11.6-14.6 [facility] Erythrocyte distribution wid th standard deviationOrdered By: Donna Cedeno on 03-05-2025 Erythrocyte distribution width (RBC) [Ratio] 46.9 fl High 35.1-43.9 [facility] Glomerular filtration rate ( GFR) estimation/1.73 sq m using serum, plasma, or whole bOrdered By: Donna Cedeno on 03-05-2025 GFR/1.73 sq M.predicted among non-blacks MDRD (S/P/Bld) [Vol rate/Area] 96 mL/min/{1.73_m2} >60 [facility] Comment on above: mL/min/1.73m2 CKD-EP I Creatinine Equation (2020) Hematocrit Auto (Bld) [Volum e fraction]Ordered By: Donna Cedeno on 03-05-2025 Hematocrit (Bld) [Volume fraction] 37.4 % Low 40-54 [facility] Hemoglobin measurementOrdere d By: Donna Cedeno on 03-05-2025 Hemoglobin (Bld) [Mass/Vol] 13.0 g/dL 13.0-16.5 [facility] Immature granulocytes/100 WB C Auto (Bld)Ordered By: Donna Cedeno on 03-05-2025 Immature granulocytes/100 WBC (Bld) 0.200 % 0.0-0.9 [facility] Comment on above: IG% - Immature Granu locytes (promyelocytes, myelocytes and metamyelocytes) > 1% indicates that a LEFT SHIFT is Present. International normalized rat io (INR) calculationOrdered By: Donna Cedeno on 03-05-2025 INR Coag (Bld) [Relative time] 2.1 {INR} [facility] MCV (mean corpuscular volume ) determinationOrdered By: Donna Cedeno on 03-05-2025 MCV (RBC) [Entitic vol] 90.8 fL 80-94 [facility] Mean corpuscular hemoglobin (MCH) determinationOrdered By: Donna Cedeno on 03-05-2025 MCH (RBC) [Entitic mass] 31.6 pg 27.0-32.0 [facility] Mean corpuscular hemoglobin concentration (MCHC) determinationOrdered By: Donna Cedeno on 03-05-2025 MCHC (RBC) [Mass/Vol] 34.8 g/dL 32-36 [facility] Mean platelet volume determi nationOrdered By: Donna Cedeno on 03-05-2025 Platelet mean volume (Bld) [Entitic vol] 9.7 fL 6.2-12.0 [facility] Monocyte percentageOrdered B y: Donna Cedeno on 03-05-2025 Monocytes/100 WBC (Bld) 3.0 % 0-10 [facility] Neutrophil percentageOrdered By: Donna Cedeno on 03-05-2025 Neutrophils/100 WBC (Bld) 88.6 % High 47-70 [facility] Nucleated red blood cell per centageOrdered By: Donna Cedeno on 03-05-2025 Nucleated RBC/100 WBC (Bld) [Ratio] 0 % 0-5 [facility] Platelet countOrdered By: Kenji Cedeno on 03-05-2025 Platelets (Bld) [#/Vol] 179 10*3/uL 150-450 [facility] Potassium measurement (mass/ volume)Ordered By: Donna Cedeno on 03-05-2025 Potassium (Unsp spec) [Mass/Vol] 3.9 mmol/L 3.3-5.1 [facility] Prothrombin Time w/INRon INR Coag (PPP) [Relative time] 2.1 {INR} Normal [facility] Comment on above: Performed By: #### L 300.3900, L500.2500, L100.0100 #### [facility] [address] [place], [address] PT Coag (PPP) [Time] 23.9 s High 11.7-14.9 [facility] Comment on above: Performed By: #### L 300.3900, L500.2500, L100.0100 #### [facility] [address] [place], [address] Prothrombin timeOrdered By: Donna Cedeno on 03-05-2025 PT Coag (PPP) [Time] 23.9 s High 11.7-14.9 [facility] RBC Auto (Bld) [#/Vol]Ordere d By: Donna Cedeno on 03-05-2025 RBC (Bld) [#/Vol] 4.12 10*6/uL Low 4.6-6.2 [facility] Serum creatinine measurement (mass/volume)Ordered By: Donna Cedeno on 03-05-2025 Creatinine [Mass/Vol] 0.82 mg/dL 0.70-1.20 [facility] Serum glucose measurement (m ass/volume)Ordered By: Donna Cedeno on 03-05-2025 Glucose [Mass/Vol] 154 mg/dL High 70-99 [facility] Serum or plasma calcium laura urement (mass/volume)Ordered By: Donna Cedeno on 03-05-2025 Calcium [Mass/Vol] 8.2 mg/dL 7.6-11.0 [facility] Serum or plasma urea nitroge n measurement (mass/volume)Ordered By: Donna Cedeno on 03-05-2025 Urea nitrogen [Mass/Vol] 15 mg/dL 4-19 [facility] Sodium levelOrdered By: Norberto Cedeno on 03-05-2025 Sodium [Moles/Vol] 141 mmol/L 133-145 [facility] White blood cell (WBC) count Ordered By: Donna Cedeno on 03-05-2025 WBC (Bld) [#/Vol] 8.0 10*3/uL 4.4-11.0 [facility] Absolute lymphocyte countOrd ered By: Jennifer Goel on 03-04-2025 Lymphocytes Auto (Unsp spec) [#/Vol] 1.40 10*3/uL 0.83-4.51 [facility] Absolute neutrophil countOrd ered By: Jennifer Goel on 03-04-2025 Neutrophils (Bld) [#/Vol] 6.7 10*3/uL 2.0-7.7 [facility] Anion gap in Serum or Plasma Ordered By: Jennifer Goel on 03-04-2025 Anion gap [Moles/Vol] 14 mmol/L 5- [facility] Automated lymphocyte count a s percentage of total leukocytesOrdered By: Jennifer Goel on 03-04-2025 Lymphocytes/100 WBC Auto (Unsp spec) 15.3 % Low 19-41 [facility] BUN/creatinine ratioOrdered By: Jennifer Goel on 03-04-2025 Urea nitrogen/Creatinine [Mass ratio] 13.4 mg/mg 10- [facility] Basic Metabolic Profile (BMP )on 03-04-2025 BUN/CRE 13.4 RATIO Normal - [facility] Comment on above: Performed By: #### L 9200.0000 #### [facility] [address] [facility] [address] Calcium [Mass/Vol] 9.1 mg/dL Normal 7.6-11.0 [facility] Comment on above: Performed By: #### L 9200.0000 #### [facility] [address] [place], [address] Chloride [Moles/Vol] 104 mmol/L Normal 98-108 [facility] Comment on above: Performed By: #### L 9200.0000 #### [facility] [address] [place], [address] CO2 [Moles/Vol] 22.3 mmol/L Normal 21.0-32.0 [facility] Comment on above: Performed By: #### L 9200.0000 #### [facility] [address] [place], [address] Creatinine [Mass/Vol] 1.05 mg/dL Normal 0.70-1.20 [facility] Comment on above: Performed By: #### L 9200.0000 #### [facility] [address] [place], [address] ECRCL 69.52 ml/min Normal 50-250 [facility] Comment on above: Performed By: #### L 9200.0000 #### [facility] [address] [place], [address] GAP 14 Normal 5-15 [facility] Comment on above: Performed By: #### L 9200.0000 #### [facility] [address] [place], [address] GFR/1.73 sq M.predicted among non-blacks MDRD (S/P/Bld) [Vol rate/Area] 77 mL/min/{1.73_m2} Normal >60 [facility] Comment on above: Result Comment: mL/m in/1.73m2 CKD-EPI Creatinine Equation (2020) Performed By: #### L 9200.0000 #### [facility] [address] [place], [address] Glucose [Mass/Vol] 97 mg/dL Normal 70-99 [facility] Comment on above: Performed By: #### L 9200.0000 #### [facility] [address] [place], [address] Potassium [Moles/Vol] 3.7 mmol/L Normal 3.3-5.1 [facility] Comment on above: Performed By: #### L 9200.0000 #### [facility] [address] [place], [address] Sodium [Moles/Vol] 140 mmol/L Normal 133-145 [facility] Comment on above: Performed By: #### L 9200.0000 #### [facility] [address] [place], [address] Urea nitrogen [Mass/Vol] 14 mg/dL Normal 4-19 [facility] Comment on above: Performed By: #### L 9200.0000 #### [facility] [address] [place], [address] Basophil percentageOrdered B y: Jennifer Goel on 03-04-2025 Basophils/100 WBC (Bld) 0.5 % 0-1 [facility] CBC W/Diff, Automatedon 02-18 Absolute Lymph 1.40 X10 3/uL Normal 0.83-4.51 [facility] Comment on above: Performed By: #### L 500.2500, L100.0100, L300.3900 #### [facility] [address] [place], [address] Absolute Neut 6.7 X10 3/uL Normal 2.0-7.7 [facility] Comment on above: Performed By: #### L 500.2500, L100.0100, L300.3900 #### [facility] [address] [place], [address] Basophils/100 WBC (Bld) 0.5 % Normal 0-1 [facility] Comment on above: Performed By: #### L 500.2500, L100.0100, L300.3900 #### [facility] [address] [place], [address] Eosinophils/100 WBC (Bld) 0.5 % Normal 0-5 [facility] Comment on above: Performed By: #### L 500.2500, L100.0100, L300.3900 #### [facility] [address] [place], [address] Erythrocyte distribution width (RBC) [Ratio] 14.3 % Normal 11.6-14.6 [facility] Comment on above: Performed By: #### L 500.2500, L100.0100, L300.3900 #### [facility] [address] [place], [address] Hematocrit (Bld) [Volume fraction] 42.4 % Normal 40-54 [facility] Comment on above: Performed By: #### L 500.2500, L100.0100, L300.3900 #### [facility] [address] [place], [address] Hemoglobin (Bld) [Mass/Vol] 14.6 g/dL Normal 13.0-16.5 [facility] Comment on above: Performed By: #### L 500.2500, L100.0100, L300.3900 #### [facility] [address] [place], [address] IG% 0.200 Normal 0.0-0.9 [facility] Comment on above: Result Comment: IG% - Immature Granulocytes (promyelocytes, myelocytes and metamyelocytes) > 1% indicates that a LEFT SHIFT is Present. Performed By: #### L 500.2500, L100.0100, L300.3900 #### [facility] [address] [place], [address] Lymphocytes/100 WBC (Bld) 15.3 % Low 19-41 [facility] Comment on above: Performed By: #### L 500.2500, L100.0100, L300.3900 #### [facility] [address] [place], [address] MCH (RBC) [Entitic mass] 31.7 pg Normal 27.0-32.0 [facility] Comment on above: Performed By: #### L 500.2500, L100.0100, L300.3900 #### [facility] [address] [place], [address] MCHC (RBC) [Mass/Vol] 34.4 g/dL Normal 32-36 [facility] Comment on above: Performed By: #### L 500.2500, L100.0100, L300.3900 #### [facility] [address] [place], [address] MCV (RBC) [Entitic vol] 92.2 fL Normal 80-94 [facility] Comment on above: Performed By: #### L 500.2500, L100.0100, L300.3900 #### [facility] [address] [place], [address] Monocytes/100 WBC (Bld) 10.6 % High 0-10 [facility] Comment on above: Performed By: #### L 500.2500, L100.0100, L300.3900 #### [facility] [address] [place], [address] Neutrophils/100 WBC (Bld) 72.9 % High 47-70 [facility] Comment on above: Performed By: #### L 500.2500, L100.0100, L300.3900 #### [facility] [address] [place], [address] Nucleated RBC (Bld) [#/Vol] 0 10*3/uL Normal 0-5 [facility] Comment on above: Performed By: #### L 500.2500, L100.0100, L300.3900 #### [facility] [address] [place], [address] Platelet mean volume (Bld) [Entitic vol] 9.8 fL Normal 6.2-12.0 [facility] Comment on above: Performed By: #### L 500.2500, L100.0100, L300.3900 #### [facility] [address] [place], [address] Platelets (Bld) [#/Vol] 203 10*3/uL Normal 150-450 [facility] Comment on above: Performed By: #### L 500.2500, L100.0100, L300.3900 #### [facility] [address] [place], [address] RBC (Bld) [#/Vol] 4.60 10*6/uL Normal 4.6-6.2 [facility] Comment on above: Performed By: #### L 500.2500, L100.0100, L300.3900 #### [facility] [address] [place], [address] RDW SD 48.4 fl High 35.1-43.9 [facility] Comment on above: Performed By: #### L 500.2500, L100.0100, L300.3900 #### [facility] [address] [place], [address] WBC (Bld) [#/Vol] 9.2 10*3/uL Normal 4.4-11.0 [facility] Comment on above: Performed By: #### L 500.2500, L100.0100, L300.3900 #### [facility] [address] [place], [address] Carbon dioxide, total [Moles /volume] in Central venous bloodOrdered By: Jennifer Goel on 03-04-2025 CO2 [Moles/Vol] 22.3 mmol/L 21.0-32.0 [facility] Chloride assayOrdered By: Sun Goel on 03-04-2025 Chloride [Moles/Vol] 104 mmol/L 98-108 [facility] Emergency Department Summary on 03-04-2025 Emergency Department Summary [facility] Medical Records Department [address] [place] [address] Emergency Department Summary 03/04/25 MR#: [id number] Acct: [id number] Name: RICH JAMES I Rep #: [id number] : 1955 69 From: Jennifer PHILLIP PCP: Dr. Marion Feng MD Status:ADM IN Location: [address] History of Present Illness Chief Complaint: Sore Throat Narrative Narrative: 69-year-old male with PMH of HLD, COPD, A-fib on Coumadin states he has had 3 days of a sore throat and cough. He was managing it with Tylenol but today he states he could not keep down his morning medications. He states as soon as the pills hit his throat they came back up. He could not keep down fluids. He has not tried food. He denies chest pain or shortness of breath. He denies concern for recent esophageal food impaction. Short he was urgent care and had a negative strep test and was sent here for evaluation. 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) New onset atrial fibrillation (02/18/20) Home Medications ???Medication ???Instructions ???Recorded ???Last Taken ???Type fluticasone propionate 50 1 spray intranasal DAILY Allergies 02/29/20 Unknown History mcg/actuation nasal spray,suspension (Flonase Allergy Relief) glucosamine-chondroit -vit C-Mn 500 2 cap PO DAILY Joints releif 06/0903/03/25 History mg-400 mg capsule (Glucosamine Chondroitin Maximum Strength) famotidine 20 mg tablet 20 mg PO DAILY GERD #90 tabs 11/2803/03/25 Rx loratadine 10 mg tablet (Claritin) 10 mg PO DAILY Allergies 2 03/03/25 History simvastatin 20 mg tablet 20 mg PO QHS Cholesterol #90 tabs 06/29/24 03/03/25 Rx budesonide 160 mcg-glycopyr 9 2 inh inhalation BID #3 ea 2 5 03/03/25 Rx mcg-formot 4.8 mcg/actuation HFA inhaler (Breztri Aerosphere) metoprolol succinate 25 mg 25 mg PO DAILY BP and Heart rate 0 12/23/24 03/03/25 Rx tablet,extended release 24 hr control #90 tabs benzocaine 15 mg-menthol 10 mg 1 winnie mucous membrane .4 times 03/04/25 Rx lozenges (Chloraseptic Max) daily PRN sore throat #15 ea warfarin 5 mg tablet See Rx Instructions PO .COMPLEX 03/03/25 History Blood thinner Allergy/AdvReac Type Severity Reaction Status Date / Time No Known Allergies Allergy Verified 03/04/25 21:05 Family History Father Diabetes Surgical History S/P ablation of atrial fibrillation History of shoulder surgery History of repair of right rotator cuff History of carpal tunnel release History of total hip arthroplasty Social History Smoking Status: Former smoker alcohol intake: current alcohol intake frequency: a few times a month Alcohol type: beer and hard liquor substance use type: does not use caffeine: Yes Type: coffee Number of servings: 10 and tea Number of servings: 2 ROS ROS ED ROS Narrative Constitutional: Negative for fever, chills, malaise. ENT: Positive for sore throat. CVS: Negative for chest pain. Respiratory: Negative for shortness of breath. GI: Negative for vomiting. EXAM Physical Exam Narrative Exam Narrative: CONST: Patient sitting in no acute distress. EYES: Normal inspection. ENT: Pharyngeal erythema without tonsillar swelling or exudate, midline uvula, no trismus, no elevation, no drooling or stridor. NECK: Normal inspection. RESP: No respiratory distress, CTAB. CVS: Regular rate and rhythm, no murmur, no gallop. SKIN: Color normal, no rash, warm, dry, intact. EXTREMITIES: Normal appearance, no pedal edema. NEURO: Alert and answering questions appropriately. PSYCH: Normal affect. Const Vital Signs: 03/04/25 14:01 03/04/25 14:29 03/04/25 14:56 Temperature 98.9 F 98.9 F Temperature Source Temporal Oral Pulse Rate 69 92 75 Respiratory Rate 16 22 H 14 Blood Pressure 129/67 H 133/56 H Blood Pressure Mean 87 81 Pulse Ox 97 99 98 Oxygen Delivery Method Room Air Room Air Room Air 03/04/25 14:57 03/04/25 15:04 03/04/25 15:17 Temperature 98 F Temperature Source Oral Pulse Rate 63 70 Respiratory Rate 24 H 16 Blood Pressure 133/56 H 133/56 H Blood Pressure Me (more content not included)... Normal [facility] Eosinophil percentageOrdered By: Jennifer Goel on 03-04-2025 Eosinophils/100 WBC (Bld) 0.5 % 0-5 [facility] Erythrocyte distribution wid th ratioOrdered By: Jennifer Goel on 03-04-2025 Erythrocyte distribution width (RBC) [Ratio] 14.3 % 11.6-14.6 [facility] Erythrocyte distribution wid th standard deviationOrdered By: Jennifer Goel on 03-04-2025 Erythrocyte distribution width (RBC) [Ratio] 48.4 fl High 35.1-43.9 [facility] Glomerular filtration rate ( GFR) estimation/1.73 sq m using serum, plasma, or whole bOrdered By: Jennifer Goel on 03-04-2025 GFR/1.73 sq M.predicted among non-blacks MDRD (S/P/Bld) [Vol rate/Area] 77 mL/min/{1.73_m2} >60 [facility] Comment on above: mL/min/1.73m2 CKD-EP I Creatinine Equation (2020) H AND P Exam - [place] 03-04-2025 H&P Exam - Hospitalist [facility] Medical Records Department [address] [place] [address] H P Exam - Hospitalist 03/04/25 1813 MR#: [id number] Acct: [id number] Name: RICH JAMES I Rep #: [id number] : 1955 69 From: Donna Cedeno MD PCP: Dr. Marion Feng MD Status:ADM IN Location: MS3 [id number] HPI - General General Date of Admission: 03/04/25 Date of Service: 03/04/25 Chief Complaint: Difficulty swallowing medications HPI Narrative RICH JAMES, is a 69-year-old male history of A-fib on Coumadin, COPD, hyperlipidemia, depression presented to [facility] ED 03/04/2025 with 3 days of sore throat and cough. He had been managing it with Tylenol but this a.m. could not keep down his morning medications because as soon medicines hit his throat they come back up and he could not keep down fluids at that time. No shortness of breath or chest pain. No concern for esophageal food impaction. Went to urgent care and had negative strep test and was sent to the ED for further evaluation. In the ED temp 98.9, heart rate 69 and blood pressure 129/67, respiratory rate 16 and pulse ox 97% on room air. Patient was not in acute distress with no voice changes, stridor, wheezing. He had CT of soft tissue of the neck which showed edema of soft tissues of the oropharynx, hypopharynx and epiglottic folds without sign of fluid collection or abscess and no airway compromise. Radiologist said it was nonspecific but almost looked like an angioedema like reaction. Patient not on ABI inhibitor and has no foods that were new or medications, did disassemble something that was very elder and used a leaf blower to clean out a semitruck. Patient treated in ED like an allergic reaction and given IV fluids, Benadryl, Solu-Medrol and Pepcid. Hospitalist contacted for admission for observation. Lab workup with normal hemoglobin and white blood cell count, BMP within normal limits. Patient evaluated at bedside. He and report that on Friday he blew out a semi with a leaf blower and that it was caked with rest and likely other corrosive substances, he began to have a sore throat on Friday and symptoms progressed and this a.m. he was having difficulty drinking or getting pills down prompting them to come to the ED. Since patient got cocktail in the ED he does report he is feeling little bit better than he did, denies any fevers at home, has a little bit of a headache right now, protecting airway and better able to swallow secretions, felt a little nauseous when he laid flat earlier but not at this time, denies any shortness of breath, no productive cough, no chest pain. No rashes, bleeding, bruising. 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) New onset atrial fibrillation (02/18/20) Home Medications ???Medication ???Instructions ???Recorded ???Last Taken ???Type fluticasone propionate 50 1 spray intranasal DAILY 02/29/20 Unknown History mcg/actuation nasal spray,suspension (Flonase Allergy Relief) glucosamine-chondroit -vit C-Mn 500 1 cap PO DAILY 02/29/20 Unknown History mg-400 mg capsule (Glucosamine Chondroitin Maximum Strength) famotidine 20 mg tablet 20 mg PO DAILY #90 tabs 11/28/21 1 08/04/21 Rx loratadine 10 mg tablet (Claritin) 10 mg PO DAILY 06/12/22 Unknown History simvastatin 20 mg tablet 20 mg PO QHS #90 tabs 06/29/24 Unk nown Rx budesonide 160 mcg-glycopyr 9 2 inh inhalation BID #3 ea 5 Unknown Rx mcg-formot 4.8 mcg/actuation HFA inhaler (Breztri Aerosphere) bupropion HCl (smoking deter) 150 150 mg PO BID #60 tabs 12/02/24 U nknown Rx mg tablet,12 hr sustained-release(smo natalio deterrent) metoprolol succinate 25 mg 25 mg PO DAILY #90 tabs 12/23/24 U nknown Rx tablet,extended release 24 hr benzocaine 15 mg-menthol 10 mg 1 winnie mucous membrane .4 times Unknown Rx lozenges (Chloraseptic Max) daily PRN sore throat #15 ea warfarin 5 mg tablet See Rx Instructions PO .COMPLEX Unknown History Allergy/AdvReac Type Severity Reaction Status Date / Time No Known Allergies Allergy Verified 03/04/25 08:08 Family History Father Diabetes Surgical History S/P ablation of atrial fibrillation History of shoulder surgery (more content not included)... Normal [facility] Hematocrit Auto (Bld) [Volum e fraction]Ordered By: Jennifer Goel on 03-04-2025 Hematocrit (Bld) [Volume fraction] 42.4 % 40-54 [facility] Hemoglobin measurementOrdere d By: Jennifer Goel on 03-04-2025 Hemoglobin (Bld) [Mass/Vol] 14.6 g/dL 13.0-16.5 [facility] Immature granulocytes/100 WB C Auto (Bld)Ordered By: Jennifer Goel on 03-04-2025 Immature granulocytes/100 WBC (Bld) 0.200 % 0.0-0.9 [facility] Comment on above: IG% - Immature Granu locytes (promyelocytes, myelocytes and metamyelocytes) > 1% indicates that a LEFT SHIFT is Present. International normalized rat io (INR) calculationOrdered By: Jennifer Goel on 03-04-2025 INR Coag (Bld) [Relative time] 2.2 {INR} [facility] MCV (mean corpuscular volume ) determinationOrdered By: Jennifer Goel on 03-04-2025 MCV (RBC) [Entitic vol] 92.2 fL 80-94 [facility] Mean corpuscular hemoglobin (MCH) determinationOrdered By: Jennifer Goel on 03-04-2025 MCH (RBC) [Entitic mass] 31.7 pg 27.0-32.0 [facility] Mean corpuscular hemoglobin concentration (MCHC) determinationOrdered By: Jennifer Goel on 03-04-2025 MCHC (RBC) [Mass/Vol] 34.4 g/dL 32-36 [facility] Mean platelet volume determi nationOrdered By: Jennifer Goel on 03-04-2025 Platelet mean volume (Bld) [Entitic vol] 9.8 fL 6.2-12.0 [facility] Monocyte percentageOrdered B y: Jennifer Goel on 03-04-2025 Monocytes/100 WBC (Bld) 10.6 % High 0-10 [facility] Neck for Soft Tissueon 03-04 Neck for Soft Tissue [facility] Imaging Services [address] [place] [address] Neck for Soft Tissue MR#: [id number] Acct: [id number] Name: RICH JAMES I Rep #: [id number] : 1955 M 69 From: Ankur Downey MD PCP: Dr. Marion Feng MD Status: REG ER Study: Neck for Soft Tissue Date of Exam: 03/04/25 Exam# [id number] Ordering Dr: Jennifer Goel PROCEDURE: NECK FOR SOFT TISSUE 03/04/2025 REASON FOR EXAM: SORE THROAT TECHNIQUE: NECK FOR SOFT TISSUE COMPARISON: December 07, 2024 PET/CT FINDINGS: Bones: Mild to moderate disc space narrowing C4/5, C5/6 and C6/7 with marginal endplate spurring and uncinate spurring. Joints: Mild facet hypertrophy lower cervical spine. Soft tissues: Mild atherosclerotic plaque left carotid bulb region. No prevertebral soft tissue swelling. Other: No foreign body RAD/Neck for Soft Tissue IMPRESSION: Degenerative changes cervical spine. Unremarkable appearance of the soft tissues. Reading Location: [facility] CC: Dr. Marion Feng MD; KENJI Smith Community Support Specialist: Signed Normal [facility] Neutrophil percentageOrdered By: Jennifer Goel on 03-04-2025 Neutrophils/100 WBC (Bld) 72.9 % High 47-70 [facility] Nucleated red blood cell per centageOrdered By: Jennifer Goel on 03-04-2025 Nucleated RBC/100 WBC (Bld) [Ratio] 0 % 0-5 [facility] Platelet countOrdered By: Sun Goel on 03-04-2025 Platelets (Bld) [#/Vol] 203 10*3/uL 150-450 [facility] Potassium measurement (mass/ volume)Ordered By: Jennifer Goel on 03-04-2025 Potassium (Unsp spec) [Mass/Vol] 3.7 mmol/L 3.3-5.1 [facility] Prothrombin Time w/INRon INR Coag (PPP) [Relative time] 2.2 {INR} Normal [facility] Comment on above: Performed By: #### L 9200.0000 #### [facility] [address] [place], [place], [id number] PT Coag (PPP) [Time] 24.8 s High 11.7-14.9 [facility] Comment on above: Performed By: #### L 9200.0000 #### [facility] [address] [place], [place], [id number] Prothrombin timeOrdered By: Jennifer Goel on 03-04-2025 PT Coag (PPP) [Time] 24.8 s High 11.7-14.9 [facility] RBC Auto (Bld) [#/Vol]Ordere d By: Jennifer Goel on 03-04-2025 RBC (Bld) [#/Vol] 4.60 10*6/uL 4.6-6.2 [facility] Rapid group A Streptococcus antigen assay at point of careOrdered By: Renny Mora on 03-04-2025 S. pyogenes Ag IA.rapid Ql (Throat) Negative [facility] Serum creatinine measurement (mass/volume)Ordered By: Jennifer Goel on 03-04-2025 Creatinine [Mass/Vol] 1.05 mg/dL 0.70-1.20 [facility] Serum glucose measurement (m ass/volume)Ordered By: Jennifer Goel on 03-04-2025 Glucose [Mass/Vol] 97 mg/dL 70-99 [facility] Serum or plasma calcium laura urement (mass/volume)Ordered By: Jennifer Goel on 03-04-2025 Calcium [Mass/Vol] 9.1 mg/dL 7.6-11.0 [facility] Serum or plasma urea nitroge n measurement (mass/volume)Ordered By: Jennifer Goel on 03-04-2025 Urea nitrogen [Mass/Vol] 14 mg/dL 4-19 [facility] Sodium levelOrdered By: Jennifer Goel on 03-04-2025 Sodium [Moles/Vol] 140 mmol/L 133-145 [facility] Soft Tissue Neck WITH Contra ston 03-04-2025 Soft Tissue Neck WITH Contrast [facility] Imaging Services [address] [place], [place] [address] Soft Tissue Neck WITH Contrast MR#: [id number] Acct: [id number] Name: RICH JAMES I Rep #: [id number] : 1955 M 69 From: Ankur Downey MD PCP: Dr. Marion Feng MD Status: REG ER Study: Soft Tissue Neck WITH Contrast Date of Exam: 0 03/04/25 Exam# [id number] Ordering Dr: Jennifer Goel PROCEDURE: SOFT TISSUE NECK WITH CONTRAST 03/04/2025 REASON FOR EXAM: SORE THROAT TECHNIQUE: SOFT TISSUE NECK WITH CONTRAST CONTRAST: Isovue 370 VOLUME: 98 mL One or more dose reduction techniques were used (e.g., Automated exposure control, adjustment of the mA and/or kV according to patient size, use of iterative reconstruction technique). RADIATION DOSE SUMMARY: CTDlvol: 18.8 mGy DLP: 613 mGycm COMPARISON: X-ray of the same day FINDINGS: Airway: Patent. However, the soft tissues of the oropharynx, hypopharynx are edematous. No abscess is seen. Larynx: The soft tissues around the larynx including the false cords, aryepiglottic folds and arytenoids are edematous. Minimal edema of the epiglottis. This is not particularly significant. However, the edema extends up to the upper esophageal sphincter region. There is dilation of the left laryngeal ventricle suggesting vocal cord paralysis. Salivary glands: Submandibular, parotid glands appear unremarkable. Lymph nodes: None appear enlarged. Thyroid: Normal Vasculature: Some atherosclerosis at the carotid bulb on the right. Minimal edema around the right carotid sheath near the level of the bulb. Orbits: Unremarkable Paranasal sinuses and mastoids: Clear Lung apices: Scarring right lung apex anteriorly. Upper mediastinum: No mass Bones: Degenerative changes lower cervical spine. CT/Soft Tissue Neck WITH Contrast IMPRESSION: 1. No abscess or collection. No lymphadenopathy. 2. Edema of the soft tissues of the oropharynx, hypopharynx extending down to false cords, aryepiglottic folds and arytenoids. Airway is not compromised at this time. Consider infection, inflammation, angioedema. 3. Left vocal cord paralysis. The findings and impression of this report were called directly to Jennifer Goel at 4 p.m. Eastern standard time. Reading Location: [id number] CC: Dr. Marion Feng MD; KENJI Smith Community Support Specialist: Signed Normal [facility] Urgent Care Visit Reporton 0 03-04-2025 Urgent Care Visit Report [facility] [address], [address] [place] [address] OFFICE VISIT Date of Service: 03/04/25 MR#: [id number] Acct: [id number] Name: RICH JAMES I Rep #: [id number] : 1955 Provider: KENJI Vu Age/Sex: 69/M Location: [facility] Status: Signed Intake Vital Signs 12/10/24 07:56 03/04/25 08:10 Height 5 ft 10 in 5 ft 10 in Weight: 189 lb 183 lb 8 oz BMI 27.1 26.3 BP 120/73 128/62 H Blood Pressure Location Lt brachial Lt brachial Position Sitting Sitting Respiration 18 Pulse 45 L 66 Pulse Source NIBP Monitor Temp 97.4 F L 98.3 F Temp Source Oral Pulse Oximetry (%) 97 97 Oxygen Delivery Method room air Intake Visit Reasons: sore throat Chief Complaint: Sore throat Accompanied by: Allergies No Known Allergies Allergy (Verified 03/04/25 08:08) Medications ???Medication ???Instructions ???Recorded ???Confirmed ???Type fluticasone propionate 50 1 spray intranasal DAILY 02/29/20 12/10/24 History mcg/actuation nasal spray,suspension (Flonase Allergy Relief) glucosamine-chondroit -vit C-Mn 500 1 cap PO DAILY 02/29/20 03/04/25 History mg-400 mg capsule (Glucosamine Chondroitin Maximum Strength) famotidine 20 mg tablet 20 mg PO DAILY #90 tabs 11/28/21 0 03/04/25 Rx loratadine 10 mg tablet (Claritin) 10 mg PO DAILY 06/12/22 03/04/25 History warfarin 5 mg tablet 5 mg PO .COMPLEX #180 tabs 4 03/04/25 Rx simvastatin 20 mg tablet 20 mg PO QHS #90 tabs 06/29/24 Rx budesonide 160 mcg-glycopyr 9 2 inh inhalation BID #3 ea 5 12/10/24 Rx mcg-formot 4.8 mcg/actuation HFA inhaler (Breztri Aerosphere) bupropion HCl (smoking deter) 150 150 mg PO BID #60 tabs 12/02/24 0 12/10/24 Rx mg tablet,12 hr sustained-release(smo natalio deterrent) metoprolol succinate 25 mg 25 mg PO DAILY #90 tabs 12/23/24 0 03/04/25 Rx tablet,extended release 24 hr enoxaparin 80 mg/0.8 mL 80 mg (0.8 mL) subcut .COMPLEX #8 12/28/24 Rx subcutaneous syringe mL benzocaine 15 mg-menthol 10 mg 1 winnie mucous membrane .4 times 03/04/25 Rx lozenges (Chloraseptic Max) daily PRN sore throat #15 ea Have you fallen in the past year?: No Nurse's Note: Sore throat X 2 days. Hurts to swallow. Headache this morning. [facility] Medical History History of cardioversion GERD (gastroesophageal [...] 10 and tea Number of servings: 2 HPI HPI Chief Complaint: Sore throat Details: RICH JAMES, is a 69 M who presents to the office today for complaint sore throat for the past 3 days. Patient also states he has had chills and sweats along with bodyaches. No nausea, vomiting or diarrhea. No hemoptysis, shortness of breath or difficulty breathing. No loss of taste or smell. No other associated symptoms or alleviating/aggravati ng factors. ROS Const Constitutional: No other (6 system ROS completed with pertinent findings in the HPI otherwise normal.) Exam Const General: cooperative and healthy appearing [facility] Head: normal to inspection Ears: hearing grossly normal bilaterally, TM's normal bilaterally and EAC's normal Nose: external nose normal and nasal discharge clear Mouth: oral mucosae normal Resp Effort Inspection: normal respiratory effort Auscultation: Bilateral: Clear to Auscultation Cardio Rate: regular rate Rhythm: regular rhythm Neuro General: patient alert Psych Appearance: grossly normal Mental Status: mental status grossly normal Results POC Chuyita Rapid Strep POC [place]uyita Rapid Strep Negative Last Edit by Lois Lepe MA on 03/04/25 08:40 Coding Level of Care Code Off (more content not included)... Normal [facility] White blood cell (WBC) count Ordered By: Jennifer Goel on 03-04-2025 WBC (Bld) [#/Vol] 9.2 10*3/uL 4.4-11.0 [facility] Office Visiton 01-27-2025 Follow-up visit [id number] Rich James 1955 M Date Provider Department Center 01/27/2025 [facility] ACH CT None Family History Problem Relation Age of Onset Diabetes Father Family Status - Relation Status Age at Father Level of Service:48557 [place] POSTOP FOLLOW UP VISIT RELATED TO ORIGINAL PX Reason for Visit and Comments: Post-op [483] Normal [facility] Progress Noteon 01-27-2025 Progress Note [facility]: CT SURGEONS [facility] [address] [place] [address] [address] [facility] [address] Dept: [phone] Dept Loc: [phone] Visit type: Established patient - in person [...] M.D./George Delaney M.D. Intraoperative consultation performed at [facility], [address] [place] [id number]; CLIA: [id number]; Joint Commission: [id number]; CAP: [id number] Clinical Information Solitary pulmonary nodule - R91.1 [...] 1.7 x 1 x 1 cm. A sales representative livestock portion is submitted for frozen section diagnosis. [...] cassette. Disclaime (more content not included)... Normal [facility] normalized rat io (INR) measurement by fingerstickOrdered By: Kassy Stack on 01-17-2025 INR Coag (BldC) [Relative time] 2.1 [facility] Comment on above: Critical Value > 4.0 Protime w/INR Fingerstickon 01-17-2025 INR Coag (PPP) [Relative time] 2.1 {INR} Normal [facility] Comment on above: Result Comment: Crit ical Value > 4.0 Performed By: #### L 9200.0000 #### [facility] [address] [place], [place], [id number] Protime Coagsen 22.7 SEC High 11.7-14.9 [facility] Comment on above: Performed By: #### L 9200.0000 #### [facility] [address] [facility]. [place], [place], [id number] Whole blood prothrombin time Ordered By: Kassy Stack on 01-17-2025 PT Coag (Bld) [Time] 22.7 s High 11.7-14.9 [facility] BASIC METABOLIC PANELon 12-20 Anion gap [Moles/Vol] 9 mmol/L Normal 3-13 [facility] Comment on above: Performed By: #### L AB15 ####Clay Burner: APOLONIA PADILLA ([id number])[facility] [place] [address] Calcium [Mass/Vol] 8.5 mg/dL Low 8.8-10.0 [facility] Comment on above: Performed By: #### L AB15 ####Clay Burner: APOLONIA PADILLA ([id number])[facility] [place] [address] Chloride [Moles/Vol] 107 mmol/L Normal 98-107 [facility] Comment on above: Performed By: #### L AB15 ####Clay Burner: APOLONIA PADILLA ([id number])[facility] ([facility])[address] [place] [address] CO2 [Moles/Vol] 23 mmol/L Normal 23-31 [facility] Comment on above: Performed By: #### L AB15 ####Clay Burner: APOLONIA PADILLA ([id number])[facility] ([facility])[address] [place] [address] Creatinine [Mass/Vol] 0.89 mg/dL Normal 0.72-1.25 [facility] Comment on above: Performed By: #### L AB15 ####Clay Burner: APOLONIA PADILLA ([id number])[facility])[address] [place] [address] GLOMERULAR FILTRATION RATE ML/MIN/1.73 SQ M.PREDICTED >90.0 Normal >60.0 [facility] Comment on above: Result Comment: Calc ulation based on the Chronic Kidney Disease Epidemiology Collaboration (CKD-EPI) equation refit without adjustment for race Performed By: #### L AB15 ####Clay Burner: APOLONIA PADILLA ([id number])[facility] ([facility])[address] [place] [address] Glucose [Mass/Vol] 105 mg/dL Normal 82-115 [facility] Comment on above: Performed By: #### L AB15 ####Clay Burner: APOLONIA PADILLA ([id number])[facility] ([facility])[address] [place] [address] [place] Potassium [Moles/Vol] 4.2 mmol/L Normal 3.5-5.1 [facility] Comment on above: Result Comment: [facility] potassium values may be up to 0.5 mmol/L lower than serum values. Performed By: #### L AB15 ####Clay Burner: APOLONIA PADILLA ([id number])[facility] ([facility])[address] [place] [address] Sodium [Moles/Vol] 139 mmol/L Normal 136-145 [facility] Comment on above: Performed By: #### L AB15 ####Clay Burner: APOLONIA PADILLA ([id number])[facility])[address] [place] [address] Urea nitrogen [Mass/Vol] 15 mg/dL Normal 9-23 [facility] Comment on above: Performed By: #### L AB15 ####Clay Burner: APOLONIA PADILLA ([id number])[facility] ([facility])[address] [place] [address] Basic metabolic 1998 panelon 01-14-2025 Anion gap [Moles/Vol] 9 mmol/L 3 - 13 mmol/L [facility] Calcium [Mass/Vol] 8.5 mg/dL Low 8.8 - 10. 0 mg/dL [facility] Chloride [Moles/Vol] 107 mmol/L 98 - 10 7 mmol/L [facility] CO2 [Moles/Vol] 23 mmol/L 23 - 31 mmol/L [facility] Creatinine [Mass/Vol] 0.89 mg/dL 0.72 - 1.25 mg/dL [facility] GFR/1.73 sq M.predicted (S/P/Bld) [Vol rate/Area] - PINF [facility] Comment on above: Calculation based on the Chronic Kidney Disease Epidemiology Collaboration (CKD-EPI) equation refit without adjustment for race Glucose [Mass/Vol] 105 mg/dL 82 - 115 mg/dL [facility] Interpretation and review of laboratory results Abnormal [facility] Potassium [Moles/Vol] 4.2 mmol/L 3.5 - 5.1 mmol/L [facility] Comment on above: Plasma potassium vinayak ues may be up to 0.5 mmol/L lower than serum values. Sodium [Moles/Vol] 139 mmol/L 136 - 145 mmol/L [facility] Urea nitrogen [Mass/Vol] 15 mg/dL 9 - 23 mg/dL [facility] CBC (HEMOGRAM)on 01-14-2025 Erythrocyte distribution width (RBC) [Ratio] 13.8 % Normal 11.5-15.0 [facility] Comment on above: Performed By: #### L AB294 ####Clay Burner: APOLONIA PADILLA ([id number])[facility])[address] [place] [address] Hematocrit (Bld) [Volume fraction] 41.4 % Normal 40.0-52.0 [facility] Comment on above: Performed By: #### L AB294 ####Clay Burner: APOLONIA PADILLA ([id number])[address] Hemoglobin (Bld) [Mass/Vol] 13.8 g/dL Normal 13.0-18.0 [facility] Comment on above: Performed By: #### L AB294 ####Clay Burner: APOLONIA PADILLA ([id number])[address] MCH (RBC) [Entitic mass] 30.9 pg Normal 26.0-34.0 [facility] Comment on above: Performed By: #### L AB294 ####Clay Burner: APOLONIA PADILLA ([id number])[address] MCHC 33.3 % Normal 30.5-36.0 [facility] Comment on above: Performed By: #### L AB294 ####Clay Burner: APOLONIA PADILLA ([id number])[address] MCV (RBC) [Entitic vol] 92.6 fL Normal 77.0-99.0 [facility] Comment on above: Performed By: #### L AB294 ####Clay Burner: APOLONIA PADILLA ([id number])[facility] ([facility])[address] [place] [address] Platelet mean volume (Bld) [Entitic vol] 10.1 fL Normal 9.0-12.7 [facility] Comment on above: Performed By: #### L AB294 ####Clay Burner: APOLONIA PADILLA ([id number])[facility] ([facility])[address] [place] [address] Platelets (Bld) [#/Vol] 166 10*3/uL Normal 140-440 [facility] Comment on above: Performed By: #### L AB294 ####Clay Burner: APOLONIA PADILLA ([id number])[facility] ([facility])[address] [place] [address] RBC (Bld) [#/Vol] 4.47 10*6/uL Normal 4.40-5.90 [facility] Comment on above: Performed By: #### L AB294 ####Clay Burner: APOLONIA PADILLA ([id number])[facility] ([facility])[address] [place] [address] WBC (Bld) [#/Vol] 6.6 10*3/uL Normal 3.6-10.7 [facility] Comment on above: Performed By: #### L AB294 ####Clay Burner: APOLONIA PADILLA ([id number])[facility] ([facility])[address] [place] [address] CBC panel Auto (Bld)on 01-14 Erythrocyte distribution width (RBC) [Ratio] 13.8 % 11.5 - 15.0 % [facility] Hematocrit (Bld) [Volume fraction] 41.4 % 40.0 - 52.0 % [facility] Hemoglobin (Bld) [Mass/Vol] 13.8 g/dL 13.0 - 18.0 g/dL [facility] Interpretation and review of laboratory results Normal [facility] MCH (RBC) [Entitic mass] 30.9 pg 26.0 - 34.0 pg [facility] MCHC (RBC) [Mass/Vol] 33.3 % 30.5 - 36.0 % [facility] MCV (RBC) [Entitic vol] 92.6 fL 77.0 - 99.0 fL [facility] Platelet mean volume (Bld) [Entitic vol] 10.1 fL 9.0 - 12.7 fL [facility] Platelets (Bld) [#/Vol] 166 10*3/uL 140 - 440 10*3/uL [facility] RBC (Bld) [#/Vol] 4.47 10*6/uL 4.40 - 5.9 0 10*6/uL [facility] WBC (Bld) [#/Vol] 6.6 10*3/uL 3.6 - 10.7 10*3/uL [facility] Laboratory - Coagulationon 0 01-14-2025 PT Coag (Bld) [Time] 16.7 s High 9.0 - 12.0 s [facility] Nursing Noteon 01-14-2025 Nursing Note Discharged ordered reviewed and signed no questions at this time. Normal [facility] PROTHROMBIN TIMEon INR Coag (PPP) [Relative time] 1.6 {INR} High 0.9-1.1 [facility] Comment on above: Result Comment: Hernán [...] Myocardial Infarction Performed By: #### L AB320 ####Clay Burner: APOLONIA PADILLA ([id number])[facility] ([facility])[address] [place] [address] PT Coag (PPP) [Time] 16.7 s High 9.0-12.0 [facility] Comment on above: Performed By: #### L AB320 ####Clay Burner: APOLONIA PADILLA ([id number])[facility] ([facility])[address] [place] [address] PT Coag (Bld) [Time]on 01-14 INR Coag (PPP) [Relative time] 1.6 {INR} High 0.9 - 1.1 [facility] Comment on above: Recommended Anticoag ulant [...] Medical Center Progress Noteon 01-14-2025 Progress Note [facility] Anticoagulatio n Management Service (BRITTANY) Inpatient Warfarin Consult HPI: Rich James is a 69 y.o. male admitted on 01/10/2025 for Solitary pulmonary nodule [R91.1] Lung nodule [R91.1]. Medical History[1] Patient is on warfarin for DVT, Afib, Protein C Deficiency and has a goal INR 2.0 - 3.0. Warfarin is currently managed by [facility]. Pt's home dose of warfarin [...] candidate 2025, staffed with Renata Hassan PharmD, [facility] Consult Service is available daily [phone] via tuul Secure Chat. [1] Past Medical History: Diagnosis Date COPD (chronic obstructive pulmonary disease) (HCC) GERD (gastroesophageal reflux disease) Hiatal hernia 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 Obesity FIFI (obstructive sleep apnea) Paroxysmal atrial fibrillation (HCC) Protein deficiency anemia Right bundle branch block Normal [facility] XR CHEST 1 VIEWon 01-14-2025 XR CHEST 1 VIEW Patient Name: RICH JAMES : 1955 [facility]#: [id number] Exam Date/Time: 01/14/2025 08:50 Procedure: XR CHEST [...] Signed Date/Time: 01/14/2025 8:54 AM EDT Normal [facility] XR Chest Single viewon 01-14 1. Small right apica l pneumothorax, unchanged. 2. Interval right thoracostomy tube was removed since prior exam. Report Dictated on Electronically Signed By: Josafat Washington DO Electronically Signed Date/Time: 01/14/2025 8:54 AM EDT [facility] 1955 [id number] Exam Date/Time: 01/14/2025 08:50 Procedure: XR CHEST [...] thoracostomy tube was removed since prior exam. [facility] [employer] [facility] Josafat Washington DO - 01/14/2025 Patient Name: [facility] 1955 [id number] Exam Date/Time: 01/14/2025 08:50 Procedure: XR CHEST [...] Electronically Signed Date/Time: 01/14/2025 8:54 AM EDT [facility] Radiology Study observation (narrative) [facility]th XR Chest Single viewOrdered By: Josafat Washington on 01-14-2025 [facility] Work Phone: 30on 01-13-2025 30 Problem: Pain - Adul t Goal: Verbalizes/displays adequate comfort level or baseline comfort level Outcome: Progressing Problem: Safety - Adult Goal: Free from fall injury Outcome: Progressing Problem: Discharge Planning Goal: Discharge to home or other facility with appropriate resources Outcome: Progressing Normal [facility] 30 Problem: Pain - Adul t [...] and maintained or improved Outcome: Progressing Normal [facility] BASIC METABOLIC PANELon 12-20 Anion gap [Moles/Vol] 6 mmol/L Normal 3-13 [facility] Comment on above: Performed By: #### L AB15 ####Clay Burner: APOLONIA PADILLA ([id number])[facility] ([facility])[address] [place] [address] Calcium [Mass/Vol] 8.5 mg/dL Low 8.8-10.0 [facility] Comment on above: Performed By: #### L AB15 ####Clay Burner: APOLONIA PADILLA ([id number])[facility] ([facility])[address] [place] [address] [place] Chloride [Moles/Vol] 105 mmol/L Normal 98-107 [facility] Comment on above: Performed By: #### L AB15 ####Clay Burner: APOLONIA PADILLA ([id number])[facility] ([facility])[address] [place] [address] [place] CO2 [Moles/Vol] 25 mmol/L Normal 23-31 [facility] Comment on above: Performed By: #### L AB15 ####Clay Burner: APOLONIA PADILLA ([id number])[facility] ([facility])[address] [place] [address] Creatinine [Mass/Vol] 1.00 mg/dL Normal 0.72-1.25 [facility] Comment on above: Performed By: #### L AB15 ####Clay Burner: APOLONIA PADILLA ([id number])[facility])[address] [place] [address] GLOMERULAR FILTRATION RATE ML/MIN/1.73 SQ M.PREDICTED 82.0 mL/min/1.73m*2 Normal >60.0 [facility] Comment on above: Result Comment: Calc ulation based on the Chronic Kidney Disease Epidemiology Collaboration (CKD-EPI) equation refit without adjustment for race Performed By: #### L AB15 ####Clay Burner: APOLONIA PADILLA ([id number])[facility])[address] [place] [address] Glucose [Mass/Vol] 101 mg/dL Normal 82-115 [facility] Comment on above: Performed By: #### L AB15 ####Clay Burner: APOLONIA PADILLA ([id number])[address] Potassium [Moles/Vol] 4.6 mmol/L Normal 3.5-5.1 [facility] Comment on above: Result Comment: [facility] potassium values may be up to 0.5 mmol/L lower than serum values. Performed By: #### L AB15 ####Clay Burner: APOLONIA PADILLA ([id number])[facility])[address] [place] [address] [place] Sodium [Moles/Vol] 136 mmol/L Normal 136-145 [facility] Comment on above: Performed By: #### L AB15 ####Clay Burner: APOLONIA PADILLA ([id number])[facility])[address] [place] [address] Urea nitrogen [Mass/Vol] 21 mg/dL Normal 9-23 [facility] Comment on above: Performed By: #### L AB15 ####Clay Burner: APOLONIA PADILLA ([id number])[address] Basic metabolic 1998 panelon 01-13-2025 Anion gap [Moles/Vol] 6 mmol/L 3 - 13 mmol/L [facility] Calcium [Mass/Vol] 8.5 mg/dL Low 8.8 - 10. 0 mg/dL [facility] Chloride [Moles/Vol] 105 mmol/L 98 - 10 7 mmol/L [facility] CO2 [Moles/Vol] 25 mmol/L 23 - 31 mmol/L [facility] Creatinine [Mass/Vol] 1 mg/dL 0.72 - 1.25 mg/dL [facility] GFR/1.73 sq M.predicted (S/P/Bld) [Vol rate/Area] 82 mL/min - PINF [facility] Comment on above: Calculation based on the Chronic Kidney Disease Epidemiology Collaboration (CKD-EPI) equation refit without adjustment for race Glucose [Mass/Vol] 101 mg/dL 82 - 115 mg/dL [facility] Interpretation and review of laboratory results Abnormal [facility] Potassium [Moles/Vol] 4.6 mmol/L 3.5 - 5.1 mmol/L [facility] Comment on above: Plasma potassium vinayak ues may be up to 0.5 mmol/L lower than serum values. Sodium [Moles/Vol] 136 mmol/L 136 - 145 mmol/L [facility] Urea nitrogen [Mass/Vol] 21 mg/dL 9 - 23 mg/dL [facility] CBC (HEMOGRAM)on 01-13-2025 Erythrocyte distribution width (RBC) [Ratio] 14.2 % Normal 11.5-15.0 [facility] Comment on above: Performed By: #### L [id number] ####Clay Burner: APOLONIA PADILLA ([id number])[address] Hematocrit (Bld) [Volume fraction] 43.4 % Normal 40.0-52.0 [facility] Comment on above: Performed By: #### L AB294 ####Clay Burner: APOLONIA PADILLA ([id number])[address] Hemoglobin (Bld) [Mass/Vol] 14.3 g/dL Normal 13.0-18.0 [facility] Comment on above: Performed By: #### L AB294 ####Clay Burner: APOLONIA PADILLA ([id number])[facility] ([facility])[address] [place] [address] MCH (RBC) [Entitic mass] 31.0 pg Normal 26.0-34.0 [facility] Comment on above: Performed By: #### L AB294 ####Clay Burner: APOLONIA PADILLA ([id number])[facility] ([facility])[address] [place] [address] MCHC 32.9 % Normal 30.5-36.0 [facility] Comment on above: Performed By: #### L AB294 ####Clay Burner: APOLONIA PADILLA ([id number])[facility] ([facility])[address] [place] [address] MCV (RBC) [Entitic vol] 94.1 fL Normal 77.0-99.0 [facility] Comment on above: Performed By: #### L AB294 ####Clay Burner: APOLONIA PADILLA ([id number])[facility] ([facility])[address] [place] [address] Platelet mean volume (Bld) [Entitic vol] 9.7 fL Normal 9.0-12.7 [facility] Comment on above: Performed By: #### L AB294 ####Clay Burner: APOLONIA APDILLA ([id number])[facility])[address] [place] [address] Platelets (Bld) [#/Vol] 165 10*3/uL Normal 140-440 [facility] Comment on above: Performed By: #### L AB294 ####Clay Burner: APOLONIA PADILLA ([id number])[facility])[address] [place] [address] RBC (Bld) [#/Vol] 4.61 10*6/uL Normal 4.40-5.90 [facility] Comment on above: Performed By: #### L AB294 ####Clay Burner: APOLONIA PADILLA ([id number])[facility] [place] [address] WBC (Bld) [#/Vol] 7.7 10*3/uL Normal 3.6-10.7 [facility] Comment on above: Performed By: #### L AB294 ####Clay Burner: APOLONIA PADILLA ([id number])[facility] ([facility])[address] [place] [address] CBC panel Auto (Bld)on 01-13 Erythrocyte distribution width (RBC) [Ratio] 14.2 % 11.5 - 15.0 % [facility] Hematocrit (Bld) [Volume fraction] 43.4 % 40.0 - 52.0 % [facility] Hemoglobin (Bld) [Mass/Vol] 14.3 g/dL 13.0 - 18.0 g/dL [facility] Interpretation and review of laboratory results Normal [facility] MCH (RBC) [Entitic mass] 31 pg 26.0 - 34.0 pg [facility] MCHC (RBC) [Mass/Vol] 32.9 % 30.5 - 36.0 % [facility] MCV (RBC) [Entitic vol] 94.1 fL 77.0 - 99.0 fL [facility] Platelet mean volume (Bld) [Entitic vol] 9.7 fL 9.0 - 12.7 fL [facility] Platelets (Bld) [#/Vol] 165 10*3/uL 140 - 440 10*3/uL [facility] RBC (Bld) [#/Vol] 4.61 10*6/uL 4.40 - 5.9 0 10*6/uL [facility] WBC (Bld) [#/Vol] 7.7 10*3/uL 3.6 - 10.7 10*3/uL [facility] Laboratory - Coagulationon 0 01-13-2025 PT Coag (Bld) [Time] 11.8 s 9.0 - 12.0 s [facility] PROTHROMBIN TIMEon INR Coag (PPP) [Relative time] 1.1 {INR} Normal 0.9-1.1 [facility] Comment on above: Result Comment: Hernán [...] Infarction Performed By: #### L [id number] #### Clay Burner: APOLONIA PADILLA ([id number]) [facility] ([facility]) [address] [place] [address] PT Coag (PPP) [Time] 11.8 s Normal 9.0-12.0 [facility] [employer] [facility] Comment on above: Performed By: #### Caryn AB320 #### Clay Burner: APOLONIA PADILLA ([id number]) [facility] ([facility]) [address] [place] [address] PT Coag (Bld) [Time]on 01-13 INR Coag (PPP) [Relative time] 1.1 {INR} 0.9 - 1.1 [facility] Comment on above: Recommended Anticoag ulant [...] Progress Noteon 01-13-2025 Progress Note Reviewed with surgeon. Ok to d/c CT Chest tube assessed: no air leak, subcutaneous air noted. Chest tube removed without difficulty and dressing applied. Patient tolerated well. Patient and nurse educated on possible complications to observe for. Will continue to monitor. Follow up CXR in am unless new symptoms of respiratory distress Normal [facility] Progress Note - Attestation signed by Eva Estevez PT at 01/13/2025 3:54 PM Goals met, OK to discharge from PT standpoint. Recommend use of mobility aides for encouraging walking throughout LOS. PHYSICAL THERAPY [facility] Treatment Note Name/MRN: Rich James ([id number]) Date of : 1955 Age: 69 y.o. Room[facility]Bed: [facility] A Discharge Recommendation: Home with assist [...] Mariano Fall Risk Score: 35 (Medium Risk) Precautions/Restricti ons: chest tube Overall Cognitive Status: WNL Overall [...] Minutes: 26 Minutes (GT/Ther Ex) Maile Blount, ROBERT Thomas, HOSE TESTER Normal [facility] Progress Note [facility] Anticoagulatio n Management Service (BRITTANY) Inpatient [...] candidate 2025, staffed with Renata Hassan PharmD, [facility]ANY Consult Service is available daily [phone] via OrderWithMe. [1] Past Medical History: Diagnosis Date COPD (chronic obstructive pulmonary disease) (HCC) GERD (gastroesophageal reflux disease) Hiatal hernia 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 Obesity FIFI (obstructive sleep apnea) Paroxysmal atrial fibrillation (HCC) Protein deficiency anemia Right bundle branch block Normal [facility] [facility] - Attestation signed by Sarah Luna DO at 01/13/2025 2:42 PM (Updated) CARDIOTHORACIC SURGERY DOS: 01/13/25 POD # 3 VATS RUL wedge; MLND I personally performed a [id number] diagnostic evaluation on this patient I agree [...] of 20 minutes were spent between the [id number] encounter, physical exam, reviewing the medical history, coordinating care, counseling/educating the patient, ordering medications/test/proc edures, interpreting results and documenting in the patient's record on the day of the encounter. The patient was seen and examined independently and relevant data reviewed by myself. Savanah Luna DO [facility] Cardiothoracic Surgery Cardiothoracic Surgery Progress Note PATIENT [...] of day developed with Cardiothoracic Surgery Surgeon [facility] XR CHEST 1 VIEWon 01-13-2025 XR CHEST [...] Electronically Signed Date/Time: 01/13/2025 2:21 PM EDT [facility] XR CHEST 1 VIEW Patient Name: RICH [...] Electronically Signed Date/Time: 01/13/2025 8:18 AM EDT [facility] XR Chest Single viewon 01-13 FINDINGS/IMPRESSION: [...] [facility] Radiology Study observation (narrative) [facility] He alth 1. Right-sided chest tube with small apical [...] Electronically Signed Date/Time: 01/13/2025 8:18 AM EDT [facility] Radiology Study observation (narrative) [facility] XR Chest Single viewOrdered By: Amilcar Saha on 01-13-2025 [facility] [employer] Work Phone: 30on 01-12-2025 30 Problem: Pain - Adul t Goal: Verbalizes/displays adequate comfort level or baseline comfort level Outcome: Progressing Problem: Safety - Adult Goal: Free from fall injury Outcome: Progressing Problem: Discharge Planning Goal: Discharge to home or other facility with appropriate resources Outcome: Progressing Normal [facility] 30 Problem: Pain - Adul t [...] and maintained or improved Outcome: Progressing Normal [facility] 30 Problem: Pain - Adul t [...] injury: Instruct family/caregiver on patient safety Normal [facility] BASIC METABOLIC PANELon 12-20 Anion gap [Moles/Vol] 8 mmol/L Normal 3-13 [facility] Comment on above: Performed By: #### L AB15 ####Clay Burner: APOLONIA PADILLA ([id number])[facility] ([facility])[address] [place] [address] Calcium [Mass/Vol] 8.3 mg/dL Low 8.8-10.0 [facility] Comment on above: Performed By: #### L AB15 ####Clay Burner: APOLONIA PADILLA ([id number])[facility] ([facility])[address] [place] [address] [place] Chloride [Moles/Vol] 107 mmol/L Normal 98-107 [facility] Comment on above: Performed By: #### L AB15 ####Clay Burner: APOLONIA PADILLA ([id number])[facility] ([facility])[address] [place] [address] CO2 [Moles/Vol] 24 mmol/L Normal 23-31 [facility] Comment on above: Performed By: #### L AB15 ####Clay Burner: APOLONIA PADILLA ([id number])[facility] ([facility])[address] [place] [address] Creatinine [Mass/Vol] 0.94 mg/dL Normal 0.72-1.25 [facility] Comment on above: Performed By: #### L AB15 ####Clay Burner: APOLONIA PADILLA ([id number])[facility] ([facility])[address] [place] [address] GLOMERULAR FILTRATION RATE ML/MIN/1.73 SQ M.PREDICTED 88.3 mL/min/1.73m*2 Normal >60.0 [facility] Comment on above: Result Comment: Calc ulation based on the Chronic Kidney Disease Epidemiology Collaboration (CKD-EPI) equation refit without adjustment for race Performed By: #### L AB15 ####Clay Burner: APOLONIA PADILLA ([id number])[facility] ([facility])[address] [place] [address] Glucose [Mass/Vol] 93 mg/dL Normal 82-115 [facility] Comment on above: Performed By: #### L AB15 ####Clay Burner: APOLONIA PADILLA ([id number])[facility] ([facility])[address] [place] [address] [place] Potassium [Moles/Vol] 4.0 mmol/L Normal 3.5-5.1 [facility] Comment on above: Result Comment: [facility] potassium values may be up to 0.5 mmol/L lower than serum values. Performed By: #### L AB15 ####Clay Burner: APOLONIA PADILLA ([id number])[facility])[address] [place] [address] Sodium [Moles/Vol] 139 mmol/L Normal 136-145 [facility] Comment on above: Performed By: #### L AB15 ####Clay Burner: APOLONIA PADILLA ([id number])[facility] ([facility])[address] [place] [address] Urea nitrogen [Mass/Vol] 22 mg/dL Normal 9-23 [facility] Comment on above: Performed By: #### L AB15 ####Clay Burner: APOLONIA PADILLA ([id number])[facility] ([facility])[address] [place] [address] Basic metabolic 1998 panelon 01-12-2025 Anion gap [Moles/Vol] 8 mmol/L 3 - 13 mmol/L [facility] Calcium [Mass/Vol] 8.3 mg/dL Low 8.8 - 10. 0 mg/dL [facility] Chloride [Moles/Vol] 107 mmol/L 98 - 10 7 mmol/L [facility] CO2 [Moles/Vol] 24 mmol/L 23 - 31 mmol/L [facility] Creatinine [Mass/Vol] 0.94 mg/dL 0.72 - 1.25 mg/dL [facility] GFR/1.73 sq M.predicted (S/P/Bld) [Vol rate/Area] 88.3 mL/min - PINF [facility] Comment on above: Calculation based on the Chronic Kidney Disease Epidemiology Collaboration (CKD-EPI) equation refit without adjustment for race Glucose [Mass/Vol] 93 mg/dL 82 - 115 mg/dL [facility] Interpretation and review of laboratory results Abnormal [facility] Potassium [Moles/Vol] 4 mmol/L 3.5 - 5.1 mmol/L [facility] Comment on above: Plasma potassium vinayak ues may be up to 0.5 mmol/L lower than serum values. Sodium [Moles/Vol] 139 mmol/L 136 - 145 mmol/L [facility] Urea nitrogen [Mass/Vol] 22 mg/dL 9 - 23 mg/dL [facility] CBC (HEMOGRAM)on 01-12-2025 Erythrocyte distribution width (RBC) [Ratio] 14.0 % Normal 11.5-15.0 [facility] Comment on above: Performed By: #### L [id number] ####Clay Burner: APOLONIA PADILLA ([id number])[facility])[address] [place] [address] Hematocrit (Bld) [Volume fraction] 41.0 % Normal 40.0-52.0 [facility] Comment on above: Performed By: #### L AB294 ####Clay Burner: APOLONIA PADILLA ([id number])[facility])[address] [place] [address] Hemoglobin (Bld) [Mass/Vol] 13.7 g/dL Normal 13.0-18.0 [facility] Comment on above: Performed By: #### L AB294 ####Clay Burner: APOLONIA PADILLA ([id number])[address] MCH (RBC) [Entitic mass] 31.1 pg Normal 26.0-34.0 [facility] Comment on above: Performed By: #### L AB294 ####Clay Burner: APOLONIA PADILLA ([id number])[facility])[address] [place] [address] MCHC 33.4 % Normal 30.5-36.0 [facility] Comment on above: Performed By: #### L AB294 ####Clay Burner: APOLONIA PADILLA ([id number])[facility])[address] [place] [address] MCV (RBC) [Entitic vol] 93.0 fL Normal 77.0-99.0 [facility] Comment on above: Performed By: #### L AB294 ####Clay Burner: APOLONIA PADILLA ([id number])[address] Platelet mean volume (Bld) [Entitic vol] 10.7 fL Normal 9.0-12.7 [facility] Comment on above: Performed By: #### L AB294 ####Clay Burner: APOLONIA [id number])[facility] ([facility])[address] [place] [address] Platelets (Bld) [#/Vol] 164 10*3/uL Normal 140-440 [facility] Comment on above: Performed By: #### L AB294 ####Clay Burner: APOLONIA PADILLA ([id number])[facility])[address] [place] [address] RBC (Bld) [#/Vol] 4.41 10*6/uL Normal 4.40-5.90 [facility] Comment on above: Performed By: #### L AB294 ####Clay Burner: APOLONIA PADILLA ([id number])[facility])[address] [place] [address] WBC (Bld) [#/Vol] 8.8 10*3/uL Normal 3.6-10.7 [facility] Comment on above: Performed By: #### L AB294 ####Clay Burner: APOLONIA PADILLA ([id number])[facility])[address] [place] [address] CBC panel Auto (Bld)on 01-12 Erythrocyte distribution width (RBC) [Ratio] 14 % 11.5 - 15.0 % [facility] Hematocrit (Bld) [Volume fraction] 41 % 40.0 - 52.0 % [facility] Hemoglobin (Bld) [Mass/Vol] 13.7 g/dL 13.0 - 18.0 g/dL [facility] Interpretation and review of laboratory results Normal [facility] MCH (RBC) [Entitic mass] 31.1 pg 26.0 - 34.0 pg [facility] MCHC (RBC) [Mass/Vol] 33.4 % 30.5 - 36.0 % [facility] MCV (RBC) [Entitic vol] 93 fL 77.0 - 99.0 fL [facility] Platelet mean volume (Bld) [Entitic vol] 10.7 fL 9.0 - 12.7 fL [facility] Platelets (Bld) [#/Vol] 164 10*3/uL 140 - 440 10*3/uL [facility] RBC (Bld) [#/Vol] 4.41 10*6/uL 4.40 - 5.9 0 10*6/uL [facility] WBC (Bld) [#/Vol] 8.8 10*3/uL 3.6 - 10.7 10*3/uL [facility] Laboratory - Coagulationon 0 01-12-2025 PT Coag (Bld) [Time] 10.5 s 9.0 - 12.0 s [facility] PROTHROMBIN TIMEon INR Coag (PPP) [Relative time] 1.0 {INR} Normal 0.9-1.1 [facility] Comment on above: Result Comment: Hernán [...] to prevent Myocardial Infarction Performed By: #### Caryn AB320 ####Clay Burner: APOLONIA PADILLA ([id number])[address] PT Coag (PPP) [Time] 10.5 s Normal 9.0-12.0 [facility] Comment on above: Performed By: #### Caryn AB320 ####Clay Burner: APOLONIA PADILLA ([id number])[address] PT Coag (Bld) [Time]on 01-12 INR Coag (PPP) [Relative time] 1 {INR} 0.9 - 1.1 [facility] Comment on above: Recommended Anticoag ulant [...] for help and support if needed. Normal [facility] Progress Note Nutrition rescreen completed. Chart reviewed. Patient to be monitored and followed by the diet prepress technician. DEBBIE Gonzalez Normal [facility] Progress Note PHYSICAL THERAPY [facility] Treatment Note Name/MRN: Rich James ([id number]) Date of : 1955 Age: 69 y.o. Room[facility]Bed: [facility] A Discharge Recommendation: Home with assist PRN Equipment Needed: No Assessment Steady gait. Good endurance. Vitals stable. Encouraged increased gait. Rec discharge PT services Subjective Seated bedside chair. Hopeful to leave, still with chest tube Pain: chest tube site Medical Precautions: No active isolations Proper PPE donned/doffed in accordance with facility standards. Fall Risk: Mariano Fall Risk Score: 35 (Medium Risk) Precautions/Restricti ons: chest tube Overall Cognitive Status: WFL Overall [...] Code Treatment Minutes: (gt-fa) Sofi Valdivia PTA Normal [facility] Progress Note OCCUPATIONAL THERAPY [facility] Name/MRN: Rich James ([id number]) Date: 01/12/2025 OT orders received and chart reviewed. Attempting OT eval, pt working with PT. Will continue to follow as schedule permits. Tawana Flores, JWR/L Normal [facility] Progress Note [facility] Anticoagulatio n Management Service (BRITTANY) Inpatient Warfarin Consult HPI: Rich James is a 69 y.o. male admitted on 01/10/2025 for Solitary pulmonary nodule [R91.1] Lung nodule [R91.1]. Medical History[1] Patient is on warfarin for DVT, Afib, Protein C Deficiency and has a goal INR 2.0 - 3.0. Warfarin is currently managed by [facility]. Pt's home dose of warfarin [...] PharmD BRITTANY Consult Service is available daily [phone] via [employer]ul Secure Chat. [1] Past Medical History: Diagnosis Date COPD (chronic obstructive pulmonary disease) (HCC) GERD (gastroesophageal reflux disease) Hiatal hernia 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 Obesity FIFI (obstructive sleep apnea) Paroxysmal atrial fibrillation (HCC) Protein deficiency anemia Right bundle branch block Normal [facility] XR CHEST 1 VIEWon 01-12-2025 XR CHEST 1 VIEW [facility] 1955 [id number] Exam Date/Time: 01/12/2025 06:17 Procedure: XR CHEST [...] Electronically Signed Date/Time: 01/12/2025 7:19 AM EDT [facility] XR Chest Single viewon 01-12 FINDINGS/IMPRESSION: [...] [facility] Radiology Study observation (narrative) Naheed zayas 30on 01-11-2025 30 Problem: Pain - Adul [...] learning needs (meds, wound care, etc) Normal [facility] [id number] 01-11-2025 [id number] Discussed Home Care Services available to patient [...] any other needs arise prior to DC. [facility] BASIC METABOLIC PANELon - Anion gap [Moles/Vol] 7 mmol/L Normal 3-13 [facility] Comment on above: Performed By: #### L AB15 ####Clay Burner: APOLONIA PADILLA ([id number])[facility] ([facility])[address] [place] [address] Calcium [Mass/Vol] 8.1 mg/dL Low 8.8-10.0 [facility] Comment on above: Performed By: #### L AB15 ####Clay Burner: APOLONIA PADILLA ([id number])[facility] ([facility])[address] [place] [address] Chloride [Moles/Vol] 107 mmol/L Normal 98-107 [facility] Comment on above: Performed By: #### L AB15 ####Clay Burner: APOLONIA PADILLA ([id number])[facility] ([facility])[address] [place] [address] CO2 [Moles/Vol] 22 mmol/L Low 23-31 [facility] Comment on above: Performed By: #### L AB15 ####Clay Burner: APOLONIA PADILLA ([id number])[facility] ([facility])[address] [place] [address] Creatinine [Mass/Vol] 0.89 mg/dL Normal 0.72-1.25 [facility] Comment on above: Performed By: #### L AB15 ####Clay Burner: APOLONIA PADILLA ([id number])[facility] ([facility])[address] [place] [address] GLOMERULAR FILTRATION RATE ML/MIN/1.73 SQ M.PREDICTED >90.0 Normal >60.0 [facility] Comment on above: Result Comment: Calc ulation based on the Chronic Kidney Disease Epidemiology Collaboration (CKD-EPI) equation refit without adjustment for race Performed By: #### L AB15 ####Clay Burner: APOLONIA PADILLA ([id number])[facility] ([facility])[address] [place] [address] Glucose [Mass/Vol] 149 mg/dL High 82-115 [facility] Comment on above: Performed By: #### L AB15 ####Clay Burner: APOLONIA [id number])[facility] ([facility])[address] [place] [address] Potassium [Moles/Vol] 4.3 mmol/L Normal 3.5-5.1 [facility] Comment on above: Result Comment: [facility] potassium values may be up to 0.5 mmol/L lower than serum values. Performed By: #### L AB15 ####Clay Burner: APOLONIA PADILLA ([id number])[facility] [place] [address] Sodium [Moles/Vol] 136 mmol/L Normal 136-145 [facility] Comment on above: Performed By: #### L AB15 ####Clay Burner: APOLONIA PADILLA ([id number])[facility] [place] [address] Urea nitrogen [Mass/Vol] 16 mg/dL Normal 9-23 [facility] Comment on above: Performed By: #### L AB15 ####Clay Burner: APOLONIA PADILLA ([id number])[facility] [place] [address] Basic metabolic 1998 panelon 01-11-2025 Anion gap [Moles/Vol] 7 mmol/L 3 - 13 mmol/L [facility] Calcium [Mass/Vol] 8.1 mg/dL Low 8.8 - 10. 0 mg/dL [facility] Chloride [Moles/Vol] 107 mmol/L 98 - 10 7 mmol/L [facility] CO2 [Moles/Vol] 22 mmol/L Low 23 - 31 mmol/L [facility] Creatinine [Mass/Vol] 0.89 mg/dL 0.72 - 1.25 mg/dL [facility] GFR/1.73 sq M.predicted (S/P/Bld) [Vol rate/Area] - PINF [facility] Comment on above: Calculation based on the Chronic Kidney Disease Epidemiology Collaboration (CKD-EPI) equation refit without adjustment for race Glucose [Mass/Vol] 149 mg/dL High 82 - 115 mg/dL [facility] Interpretation and review of laboratory results Abnormal [facility] Potassium [Moles/Vol] 4.3 mmol/L 3.5 - 5.1 mmol/L [facility] Comment on above: Plasma potassium vinayak ues may be up to 0.5 mmol/L lower than serum values. Sodium [Moles/Vol] 136 mmol/L 136 - 145 mmol/L [facility] Urea nitrogen [Mass/Vol] 16 mg/dL 9 - 23 mg/dL [facility] CBC (HEMOGRAM)on 01-11-2025 Erythrocyte distribution width (RBC) [Ratio] 13.5 % Normal 11.5-15.0 [facility] Comment on above: Performed By: #### L [id number] ####Clay Burner: APOLONIA PADILLA ([id number])[address] Hematocrit (Bld) [Volume fraction] 39.2 % Low 40.0-52.0 [facility] Comment on above: Performed By: #### L AB294 ####Clay Burner: APOLONIA PADILLA ([id number])[facility])[address] [place] [address] Hemoglobin (Bld) [Mass/Vol] 13.2 g/dL Normal 13.0-18.0 [facility] Comment on above: Performed By: #### L AB294 ####Clay Burner: APOLONIA PADILLA ([id number])[facility])[address] [place] [address] MCH (RBC) [Entitic mass] 30.9 pg Normal 26.0-34.0 [facility] Comment on above: Performed By: #### L AB294 ####Clay Burner: APOLONIA PADILLA ([id number])[facility])[address] [place] [address] MCHC 33.7 % Normal 30.5-36.0 [facility] Comment on above: Performed By: #### L AB294 ####Clay Burner: APOLONIA PADILLA ([id number])[facility])[address] [place] [address] MCV (RBC) [Entitic vol] 91.8 fL Normal 77.0-99.0 [facility] Comment on above: Performed By: #### L AB294 ####Clay Burner: APOLONIA PADILLA ([id number])[facility])[address] [place] [address] Platelet mean volume (Bld) [Entitic vol] 9.7 fL Normal 9.0-12.7 [facility] Comment on above: Performed By: #### L AB294 ####Clay Burner: APOLONIA PADILLA ([id number])[facility] ([facility])[address] [place] [address] Platelets (Bld) [#/Vol] 147 10*3/uL Normal 140-440 [facility] Comment on above: Performed By: #### L AB294 ####Clay Burner: APOLONIA PADILLA ([id number])[facility])[address] [place] [address] RBC (Bld) [#/Vol] 4.27 10*6/uL Low 4.40-5.90 [facility] Comment on above: Performed By: #### L AB294 ####Clay Burner: APOLONIA PADILLA ([id number])[facility])[address] [place] [address] WBC (Bld) [#/Vol] 9.6 10*3/uL Normal 3.6-10.7 [facility] Comment on above: Performed By: #### L AB294 ####Clay Burner: APOLONIA PADILLA ([id number])[facility])[address] [place] [address] CBC panel Auto (Bld)on 01-11 Erythrocyte distribution width (RBC) [Ratio] 13.5 % 11.5 - 15.0 % [facility] Hematocrit (Bld) [Volume fraction] 39.2 % Low 40.0 - 52.0 % [facility] Hemoglobin (Bld) [Mass/Vol] 13.2 g/dL 13.0 - 18.0 g/dL [facility] Interpretation and review of laboratory results Abnormal [facility] MCH (RBC) [Entitic mass] 30.9 pg 26.0 - 34.0 pg [facility] MCHC (RBC) [Mass/Vol] 33.7 % 30.5 - 36.0 % [facility] MCV (RBC) [Entitic vol] 91.8 fL 77.0 - 99.0 fL [facility] Platelet mean volume (Bld) [Entitic vol] 9.7 fL 9.0 - 12.7 fL [facility] Platelets (Bld) [#/Vol] 147 10*3/uL 140 - 440 10*3/uL [facility] RBC (Bld) [#/Vol] 4.27 10*6/uL Low 4.40 - 5.9 0 10*6/uL [facility] WBC (Bld) [#/Vol] 9.6 10*3/uL 3.6 - 10.7 10*3/uL [facility] No Panel InformationOrdered By: Colton Cooper on 01-11-2025 Case Report Surgical Pathology Case: [id number] Authorizing Provider: Sarah Luna DO Collected: 01/10/2025 0856 Ordering Location: [facility] OR Received: 01/10/2025 1200 Pathologist: Colton Cooper MD Specimens: A) - Lung, Right Upper Lobe, RIGHT UPPER LOBE WEDGE B) - Lymph Node, LEVEL 9R LYMPH NODE C) - Lymph Node, LEVEL 7 LYMPH NODE D) - Lymph Node, LEVEL 4R LYMPH NODE [facility] [employer] Work Phone: Clinical Information c2vtdFYxVZAfsTFsTIU wM VinpkMxQJFomLPoD4Ojsc nzICtzWW9wWO2txGgupGN rxHJuRCZzLwTra2enf353 hJQfk9dbHVNIQLoxAOLAL Hj8iPtmD36un0G8UeouU9 xyZWQwXGdyZWVuMFxibHV kTLz1HDEkoXTzjkGvVbWu XYXliOUkdJI1LBPhRL2yl gbxFEbkUMuwGSLqdwK0AD YifJRiI5WpRDVwYB9dnvy qIOW7CLsmVIZzTWJ4SdHs KUZpo2Wxxjk2QhMtpSUrM FxwbGFpblxmczIwXGNmMS ANk8bxmIMltQDrhNejb72 vhzpchj0egUxzOW5yQgrk HnCsC0tUYF8rAL2KLT0rP 2YwICBccGFyfQ== [facility] Work Phone: Gross Description f5yvjJFcCIAvmAMkHIFt M JtkbsWdHWOfyKQsY0Ajob ymCGzgDB4eZR6sgKagsRJ vrJPbSREoIlXrq3wxn393 rTLuj9gpVKUOETlyHOIIR Fr9dPsyG74vn2E2IrtyN3 8mmAFnKZJ8JRGsNBTbuOL jHITuJZP7OHXjdJCuF7nc VKVnLF5pforiEMhjCBusK PSdiVO1YUKjuKCbF3OdPK HxGUkiSZJnvfs1XdVsIt8 vdGVyeTcyMFxwYXJkXHBs LQbqLIQdPlMdUU3ttRYlF DKlL7XkvoNbJZFxXXSbZB FmeqEnpg25NR9yo4QnhRt psyRccUZids1giVCdkRWc ZWxlZCAicmlnaHQgdXBwZ RClcQ2zOXS7OSQfKOXdvC AwZTM6VsfdvYL9JLrbAN7 1NIVsGVL7yaAsSH8iDLDc hCPgEmT1IWMyEC3dNUYhM KXsyPR5wgErnUDjaZ4iUZ DmHjiiM8mwOTQYdBUab9O hcGxlIGxpbmUgaXMgcmVt t6XpRVOecwFsyMnxFIAvJ GSztChiamfagVGlAR5fgN ltYSBpcyBpbmtlZCBibHV lLiAgVGhlcmUgaXMgYSB3 cDe3IN7kUWCypc3cbXipA PCrUSRvaFEnJM70ZHleOA K8TFWuT58zZLGGBCBwjHK md8OlfNI2uQYnAMYmkxQe y84lsVZnb4GvbEc6qGKhQ CLxkgGokn59KD2fx5PymC nazbDadRNnnn4ytWOkVZX UrOVacqIbCYzbJCJpCD4e QWMiEJOgxMMffH5lwxOtw vCkUKB1dO0uANWasnC8DH XreH4iTGEeHXBfCFmrbCc gZGlsYXRlZCBhaXJzcGFj SGZxRV2bXQIfY6FaWTAfU iGys0iaMhPfTZ5iELRomE Znc42qdOG5WLlmXXHcTeg rBNMwqSTwtqTegaVbb4Sq s4Hzyh6oYUDoYPUvXTbhj bh1tXFpMaR4cXUlc6SjK0 Cdk4b3aAB2pWIotrCxEBe tHLZsVD3eQFZiZRPqKDKc UKywKBS9Kc9leKFtUQNlv eHiOHYbSXSiQJJ8PXOzo5 g6rLWhFBGhSRUruSIyzq8 4QK7ny0FptSjmypD7oNFt dUUtOxUoufmjs3TclXy8a IVgYAbqHFMmz6JugNDaFM ExLiBccGFyXHBhciBCLlx 5SIFkLrDzNXl2OHEneC5w Pp6vvFUxzN9wzUMrVDsuI SHkcQA7EZdgSTOmfHwwlL ihgn1tHKAweDJhPBWeKjv lmZNvFhPfzLBjJsOgG17a ezPaYFEzfpLzl4N8CPYak 2R0BWCdecWmhVUqaPM8qW K9VRhyJKG7Oj2dfYIaYDY wjhNjngKtP2Bwu4C5wOMg IFxwYXJccGFyIEMuXHRhY iBSZWNlaXZlZCBpbiBmb3 JtYWxpbiBsYWJlbGVkICJ aIQLuvNM3CFa7cKReDI8s MLDySDicKDQiAp2nEDjzZ Z25AVmdAF03KWYmWLAwNA 3yqd95rzLbP2ajBDfasHC iv2Pdk21kaVX9mDVdjZVi B31km9nnoOKvtLF6uDDtP AElVMrmIP46PLErwPcvhW nbik5fSG7gJLRbVGCxCQI fGTJvnIqzZ7VsOJSyZURs KGX1zV6fRRCbZLYAiETpz 4OzS6pxOM9isCOoa9RezA q6xQFzYGMfyLknOTx3JKw wXCW7idVuMQSzDKL6YRCm IFxwYXJccGFyIEQuXHRhY iBSZWNlaXZlZCBpbiBmb3 JtYWxpbiBsYWJlbGVkICJ gWRXumYM5RgGzfM6yiFWh z7MhWfRiegCvVISnSFW1F VTcShF5LXFvMiUmhPNsH4 euMWlzsXFxm2FmlYCrwL1 7WPIfyuhdCbnnpg4hIYH0 cH7tiFCjCXTvbcflf36vz UD5hBXlwPFyGKYHhKApl8 ZgD9ylOP4axQJuu5XcnLp 3dBYaOEzhKU0zXIUwTCEa KOJ5MU2kQALqrz7= [employer] Work Phone: Pathology report final diagnosis Narrative z3eumRCzJZEqtYYnCTBpI PsdhiFbOWDjcSDrC0Fkkx etLCbyQD8uIU2dwOodmSN ukNFsSXMlIpZrn5ric369 eOJsn1rbWVDJPXihMVKCT Zn9bMbiE98fn2C8VdpsX4 8tuKZcSNQ7HXSgIWUgcJL sRUAtRPL6BHTlpCTzT1hp NTYzXR7tkhqkZFpcCKaeT TMkrBE5HHZvpXGuM7QwNM KrREivOWHrgyc4BtVgOz6 vdGVyeTcyMFxwYXJkXHBs YWluXGZzMjBccGFyIEEuI HOAUX6AMMYMDRmPXPRPTB KAHuRBH3ANMFHHPQNRYRF XLYFOX3LVR478AJDpwyhl oyBfb9woXKDRZSWzJ8JjS 1XVXN3YNtrNUeOCThSAJX 9OSUFccGFyXGVuZGFzaCA bVgZGDDCGYqHaFo4VDG7X BDcKIbOSL8faUN5VQPkZY F5YGB7OVXAyfMYwWVHvup HDCgQcDFtWKZkdVy6HYBw cFZJIVTxaCYU3PTFanqdi sfGro9agFX3AW2IFDCEMR OVodbpyVNCqCr6kELjOAK BJNC4KSTKeVOqNVqOJOUm 6VIUgtlctijPwn0ylWJ3H E4XPXXHUHMIpphxoMIZyP O8mZSgCKRYGUC7LATNkIW xFVkVMIDRSOlxwYXJcZW5 kYXNoICBORUdBVElWRVxw HSXjqWInOOVkjLEvS6XeK HR7GPChphF6lYV9JMKyHy yzNATeCXujpWLeG7GyYQk wykUqw33hhLAfZNgxgBxd yXgjFETzb4CcQOltdOTgm XYxuSP7pB5jOlqzGJKceU FyZFxwYXJ9 [facility] [employer] Work Phone: [facility] [employer] Phone: Progress Noteon 01-11-2025 Progress Note [facility] Anticoagulatio n Management Service (BRITTANY) Inpatient [...] manage inpatient and sign off at discharge. Glory Mckeon Consult Service is available daily [phone] via [employer]ul [employer] Packet[employer]. [1] Past Medical History: Diagnosis Date COPD (chronic obstructive pulmonary disease) (HCC) GERD (gastroesophageal reflux disease) Hiatal hernia 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 Obesity FIFI (obstructive sleep apnea) Paroxysmal atrial fibrillation (HCC) Protein deficiency anemia Right bundle branch block Normal [facility] Progress Note - Attestation signed by Sarah Luna DO at 01/11/2025 3:15 PM CARDIOTHORACIC SURGERY DOS: 01/11/25 POD # 1 Robotic right upper lobe wedge I personally performed a cals-gt-tfdm diagnostic evaluation on this patient I agree [...] of 20 minutes were spent between the ozjd-il-sdry encounter, physical exam, reviewing the medical history, coordinating care, counseling/educating the patient, ordering medications/test/proc edures, interpreting results and documenting in the patient's record on the day of the encounter. The patient was seen and examined independently and relevant data reviewed by myself. Savanah Luna, DO [facility] Cardiothoracic Surgery Cardiothoracic Surgery/[facility] Progress Note PATIENT NAME: Rich [...] of 28 minutes were spent between the tfrx-ey-lqwy encounter, physical exam, reviewing the medical history, coordinating the patient's care, counseling/educating the patient, ordering medications/test/proc edures, interpreting results and documenting clinical information in the patients electronic health record on the day of the encounter. The patient was seen and examined Normal [facility] XR CHEST 1 VIEWon 01-11-2025 XR CHEST [...] was discussed with physician/provider SARAH LUNA by [employer] chat on 01/11/2025 at 6:48 AM EDT. Report Dictated on Electronically Signed By: Vlad Wilkins MD Electronically Signed Date/Time: 01/11/2025 6:48 AM EDT Normal [facility] XR Chest Single viewon 01-11 Sliver of low attenuation is noted under the right hemidiaphragm concerning for free air, likely postsurgical. The critical result of small sliver of free air, likely postsurgical was discussed with physician/provider SARAH LUNA by [employer] chat on 01/11/2025 at 6:48 AM EDT. Report Dictated on Electronically Signed By: Vlad Wilkins MD Electronically Signed Date/Time: 01/11/2025 6:48 AM EDT [facility] Patient Name: RICH JAMES : 1955 Exam Date/Time: 01/11/2025 06:15 Procedure: XR CHEST 1 VIEW Ordering Provider: ULNA RICHARD Reason For Exam: Chest tube placement [...] free air. [facility] Vlad iWlkins MD - 01/11/2025 [facility] Name: [facility] 1955 [id number] Exam Date/Time: 01/11/2025 06:15 Procedure: XR CHEST [...] was discussed with physician/provider SARAH LUNA by [employer] secure chat on 01/11/2025 at 6:48 AM EDT. Report Dictated on Electronically Signed By: Vlad Wilkins MD Electronically Signed Date/Time: 01/11/2025 6:48 AM EDT [facility] Radiology Study observation (narrative) Naheed Amador alth XR Chest Single viewOrdered By: Vlad Wilkins on 01-11-2025 [facility] Work Phone: Laboratory - Coagulationon 0 01-10-2025 PT Coag (Bld) [Time] 10.9 s 9.0 - 12.0 s [facility] Nursing Noteon 01-10-[address] Ding david t is not to wear his home cpap due to risk of rupture of the staple line and risk of pneumothorax. Re-entered patient's room and explained this to patient, patient understands and states he will not put on his home cpap, Placed patient back on 2L oxygen for the night. Normal [facility] Nursing Note Notified Dr. Ding patient is inquiring on whether his coumadin and bupropion will be ordered. Dr. Ding stated it is too soon after surgery to begin coumadin, patient educated. Bupropion medication will be non-formulary, patient understands he is to have his bring it from home. Normal [facility] Nursing Note Report called to H6, family updated [facility] Op Noteon 01-10-2025 Op Note CARDIOTHORACIC SURGERY--OPERATIVE NOTE Date: 01/10/25 Preoperative Diagnosis: Right upper lobe lung nodule Postoperative Diagnosis: Right upper lobe lung nodule Procedure: Robotic right thoracoscopy Right upper lobe wedge resection Mediastinal lymph node dissection Surgeon: Savanah Luna DO Fan Blade Truer: Mamie Ballesteros Anesthesia: General--Dr. Houston Complications: None [...] and draped in usual sterile fashion. 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 A single 28 Burundian chest tube was placed through the anterior [...] of outputs and hemodynamics. Savanah Luna DO [facility] Cardiothoracic Surgery Normal [facility] PROTHROMBIN TIMEon INR Coag (PPP) [Relative time] 1.0 {INR} Normal 0.9-1.1 [facility] Comment on above: Order Comment: If [...] Myocardial Infarction Performed By: #### L AB320 ####Clay Burner: APOLONIA PADILLA ([id number])[address] PT Coag (PPP) [Time] 10.9 s Normal 9.0-12.0 [facility] Comment on above: Order Comment: If pa tient on coumadin within 4 days prior. Performed By: #### L AB320 ####Clay Burner: APOLONIA PADILLA ([id number])[address] PT Coag (Bld) [Time]on 01-10 INR Coag (PPP) [Relative time] 1 {INR} 0.9 - 1.1 [facility] Comment on above: Recommended Anticoag ulant [...] Infarction Interpretation and review of laboratory results [facility] XR CHEST 1 VIEWon 01-10-2025 XR CHEST 1 VIEW Patient Name: RICH JAMES : 1955 [facility]#: [id number] Exam Date/Time: 01/10/2025 13:51 Procedure: XR CHEST [...] Electronically Signed Date/Time: 01/10/2025 2:13 PM EDT [facility] XR Chest Single viewon 01-10 FINDINGS/IMPRESSION: Limitations: [...] Electronically Signed Date/Time: 01/10/2025 2:13 PM EDT [facility] Radiology Study observation (narrative) [facility] XR Chest Single viewOrdered By: Cheyenne Serna on 01-10-2025 [facility] [employer] Work Phone: Prothrombin Time w/INRon INR Normal [facility] Comment on above: Order Comment: Comme nts: STANDING ORDER: Fingerstick is OK Result Comment: FING ERSTICK Performed By: #### L 9200.0000 #### [facility] Laboratory [address] [place], [address] PROTIME Normal 11.7-14.9 [facility] Comment on above: Order Comment: Comme nts: STANDING ORDER: Fingerstick is OK Result Comment: FING ERSTICK Performed By: #### L 9200.0000 #### [facility] [address] [place], [address] Protime w/INR Fingerstickon 01-06-2025 INR Coag (PPP) [Relative time] 1.4 {INR} Normal [facility] Comment on above: Result Comment: Crit ical Value > 4.0 Performed By: #### L 9200.0000 #### [facility] Laboratory [address] [place], [address] Protime Coagsen 16.5 SEC High 11.7-14.9 [facility] Comment on above: Performed By: #### L 9200.0000 #### [facility] [address] [place], [address] Protime w/INR Fingerstickon 12-30-2024 INR Coag (PPP) [Relative time] 2.6 {INR} Normal [facility] Comment on above: Result Comment: Crit ical Value > 4.0 Performed By: #### L 9200.0000 #### [facility] [address] [place], [address] Protime Coagsen 27.7 SEC High 11.7-14.9 [facility] Comment on above: Performed By: #### L 9200.0000 #### [facility] [address] [place], [address] [id number] 12-29-2024 [id number] Medication List Accurate as of December 29, 2024 2:29 PM. Always use your most recent med list. [employer] Aerosphere 160-9-4.8 MCG/ACT aerosol Generic drug: Udlrcmp-Yfmkmvycsvk-Z ormoterol Medication Adjustments for Surgery: Take morning of surgery buPROPion 150 MG 12 hr tablet Commonly known as: Zyban Medication Adjustments for Surgery: Take morning of surgery famotidine 20 MG tablet Commonly known as: Pepcid Medication Adjustments for Surgery: Take morning of surgery fluticasone 50 MCG/ACT nasal spray Commonly known as: Flonase Medication Adjustments for Surgery: Other (Comment) Notes to patient: NOT TAKING GLUCOSAMINE-CHONDROIT -VIT C-MN PO Medication Adjustments for Surgery: Hold [...] patient: LAST DOSE PRE OP 01/04/25- FOLLOW SCHOOL COUNSELOR INSTRUCTIONS FOR ANY BRIDGING The medication bridging [...] instructions given to you by Dr. LUNA Showfletcher with an antibacterial soap such as Dial [...] your scheduled surgery time. Please bring your [facility] Surgical folder and medication list with [...] 11 am on the day of discharge. GREEN BELT ENTER BUILDING AT THE MAIN ENTRANCE. TAKE [...] surgery on the right hand side. Normal [facility] BASIC METABOLIC PANELon 06- Anion gap [Moles/Vol] 8 mmol/L Normal 3-13 [facility] Comment on above: Performed By: #### L AB15 ####Clay Burner: APOLONIA PADILLA ([id number])[facility] [place] [address] Calcium [Mass/Vol] 9.1 mg/dL Normal 8.8-10.0 [facility] Comment on above: Performed By: #### L AB15 ####Clay Burner: APOLONIA PADILLA ([id number])[facility] [place] [address] [place] Chloride [Moles/Vol] 106 mmol/L Normal 98-107 [facility] Comment on above: Performed By: #### L AB15 ####Clay Burner: APOLONIA PADILLA ([id number])[facility] ([facility])[address] [place] [address] CO2 [Moles/Vol] 26 mmol/L Normal 23-31 [facility] Comment on above: Performed By: #### L AB15 ####Clay Burner: APOLONIA PADILLA ([id number])[facility] [place] [address] Creatinine [Mass/Vol] 1.14 mg/dL Normal 0.72-1.25 [facility] Comment on above: Performed By: #### L AB15 ####Clay Burner: APOLONIA PADILLA ([id number])[facility] ([facility])[address] [place] [address] [place] GLOMERULAR FILTRATION RATE ML/MIN/1.73 SQ M.PREDICTED 70.1 mL/min/1.73m*2 Normal >60.0 [facility] Comment on above: Result Comment: Calc ulation based on the Chronic Kidney Disease Epidemiology Collaboration (CKD-EPI) equation refit without adjustment for race Performed By: #### L AB15 ####Clay Burner: APOLONIA PADILLA ([id number])[facility] [place] [address] [place] Glucose [Mass/Vol] 78 mg/dL Low 82-115 [facility] Comment on above: Performed By: #### L AB15 ####Clay Burner: APOLONIA PADLILA ([id number])[facility])[address] [place] [address] Potassium [Moles/Vol] 4.2 mmol/L Normal 3.5-5.1 [facility] Comment on above: Result Comment: [facility] potassium values may be up to 0.5 mmol/L lower than serum values. Performed By: #### L AB15 ####Clay Burner: APOLONIA PADILLA ([id number])[facility])[address] [place] [address] Sodium [Moles/Vol] 140 mmol/L Normal 136-145 [facility] Comment on above: Performed By: #### L AB15 ####Clay Burner: APOLONIA PADILLA ([id number])[facility])[address] [place] [address] Urea nitrogen [Mass/Vol] 17 mg/dL Normal 9-23 [facility] Comment on above: Performed By: #### L AB15 ####Clay Burner: APOLONIA PADILLA ([id number])[facility])[address] [place] [address] BLOOD TYPE AND SCREEN GELon 12-29-2024 ABO GROUPING A Normal [facility] Comment on above: Performed By: #### L AB276 ####Clay Burner: APOLONIA PADILLA ([id number])[facility] BLOOD [facility] ([facility])[address] [place] [address] RH TYPE IN BLOOD Positive Normal [facility] Comment on above: Performed By: #### L AB276 ####Clay Burner: APOLONIA PADILLA ([id number])[facility] ([facility])[address] [place] [address] CBC (HEMOGRAM)on 12-29-2024 Erythrocyte distribution width (RBC) [Ratio] 13.6 % Normal 11.5-15.0 [facility] Comment on above: Performed By: #### L AB294 ####Clay Burner: APOLONIA PADILLA ([id number])[facility] ([address] Hematocrit (Bld) [Volume fraction] 45.9 % Normal 40.0-52.0 [facility] Comment on above: Performed By: #### L AB294 ####Clay Burner: APOLONIA PADILLA ([id number])[facility] ([facility])[address] [place] [address] Hemoglobin (Bld) [Mass/Vol] 15.3 g/dL Normal 13.0-18.0 [facility] Comment on above: Performed By: #### L AB294 ####Clay Burner: APOLONIA PADILLA ([id number])[facility] ([facility])[address] [place] [address] MCH (RBC) [Entitic mass] 31.2 pg Normal 26.0-34.0 [facility] Comment on above: Performed By: #### L AB294 ####Clay Burner: APOLONIA PADILLA ([id number])[facility] ([facility])[address] [place] [address] MCHC 33.3 % Normal 30.5-36.0 [facility] Comment on above: Performed By: #### L AB294 ####Clay Burner: APOLONIA PADILLA ([id number])[facility] ([facility])[address] [place] [address] MCV (RBC) [Entitic vol] 93.5 fL Normal 77.0-99.0 [facility] Comment on above: Performed By: #### L AB294 ####Clay Burner: APOLONIA PADILLA ([id number])[facility] ([facility])[address] [place] [address] Platelet mean volume (Bld) [Entitic vol] 10.1 fL Normal 9.0-12.7 [facility] Comment on above: Performed By: #### L AB294 ####Clay Burner: APOLONIA PADILLA ([id number])[facility] ([facility])[address] [place] [address] Platelets (Bld) [#/Vol] 202 10*3/uL Normal 140-440 [facility] Comment on above: Performed By: #### L AB294 ####Clay Burner: APOLONIA PADILLA ([id number])[facility])[address] [place] [address] RBC (Bld) [#/Vol] 4.91 10*6/uL Normal 4.40-5.90 [facility] Comment on above: Performed By: #### L AB294 ####Clay Burner: APOLONIA PADILLA ([id number])[facility])[address] [place] [address] WBC (Bld) [#/Vol] 6.1 10*3/uL Normal 3.6-10.7 [facility] Comment on above: Performed By: #### L AB294 ####Clay Burner: APOLONIA PADILLA ([id number])[address] ECG 12-LEADon 12-29-2024 ECG 12-LEAD IMPRESSION: Sinus bradycardia RBBB and LAFB No previous ECG available for comparison Electronically Signed On 12-29-2024 19:29:41 EDT by Bjorn Dixon [facility] Progress Noteon 12-29-2024 Progress Note [employer] Rich James : 1955 Primary Care Physician: Marion Feng The patient and/or family/surrogate voluntarily agreed to participate in ACP services.has paperwork Patient?s cognitive capacity: a/o x3 Code Status: [x] [FULL CODE - Continue all advanced life support: CPR,intubation,invasi ve procedures] [_] [DNR-CCA - DO NOT do CPR, intubation] [_] [DNR-SPONSORSHIP COORDINATOR - Comfort care only] [_] DNR form [...] care, with patient and/or family/surrogate. Larissa Herndon, SEALING MACHINE OPERATOR - BONDERIZER [facility] 12/29/2024, 2:57 PM Normal [facility] 36on 12-24-2024 36 Surg proc orders placed. Dong Adam, SEALING MACHINE OPERATOR - BONDERIZER 12/24/24 [facility] Office Visiton 12-23-2024 Follow-up visit [id number] Rich James 1955 M Date Provider Department Center 12/23/2024 SARAH ROSE [facility] ACH CT None Family History Problem Relation Age of Onset Diabetes Father Family Status - Relation Status Age at Father Level of Service:23734 [place] OFFICE/OP CONSLTJ NEW/EST PT MOD MDM 40 MINUTES (57) Reason for Visit and Comments: New Patient [542] Normal [facility] Progress Noteon 12-23-2024 Progress Note [facility] CARDIOVASCULAR & THORACIC SURGERY [address] [facility] [address] Dept: [phone] Dept Loc: [phone] Visit type: New Reason for Visit: Lung [...] History[3] Social History Marital status: 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 HENT: Negative. Eyes: Negative. Respiratory: Negative. Cardiovascular: Negative. Gastrointestinal: Negative. Endocrine: Negative. Genitourinary: Negative. Musculoskeletal: Negative. Skin: Negative. Allergic/Immunologic: Negative. Neurological: Negative. Hematological: Negative. Psychiatric/Behaviora l: Negative. Physical Exam Vitals: BP 130/70 (BP [...] Lung Screening more content not included)... Normal [facility] Pulmonary Visit Reporton Pulmonary Visit Report [facility] Pulmonary Medicine of [address] [place] [address] OFFICE VISIT Date of Service: 12/10/24 MR#: [id number] Acct: [id number] Name: RICH JAMES I Rep #: [id number] : 1955 Provider: ANA Motta Age/Sex: 68/M Location: [facility].PMW Status: Signed Assessment and Plan Assessment and Plan (1) Right upper lobe pulmonary nodule: Status: Acute Comment: 1.6X1.5X1.3X2.3cm Plan: PET positive right apical nodule. I spoke with Dr. Coppola at [facility]. He agrees that the patient is appropriate [...] been using Wellbutrin as prescribed. Orders: Referrals Cardiovascular/Thorac ic Surgery R91.1 - Solitary pulmonary nodule Plan Details Additional Comments: This note was generated with [employer] dictation software. It may contain incorrect words, [...] History mcg/actuation nasal spray,suspension (Flonase Allergy Relief) glucosamine-chondroit -vit C-Mn 500 1 cap PO DAILY 02/29/20 [...] mg PO (more content not included)... Normal [facility] Positron emission tomography scan reportOrdered By: Elizabeth Cintron on 12-08-2024 PT Unspecified body region [facility] Imaging Services [address] [place] [address] PET/CT Tumor Base -Thigh Init MR#: [id number] Acct: [id number] Name: RICH JAMES I Rep #: [id number] : 1955 M 68 From: Juliana Cintron MD PCP: Dr. Marion Feng MD Status: REG CLI Study:PET/CT Tumor Base -Thigh Init Date of E xam: 12/07/24 Exam# [id number] Ordering Dr: Giovani Motta NP MAINTENANCE AIDE-C EXAM: PET/CT Study CLINICAL HISTORY: 68 y/o [...] PET will be reported separately. Reading Location: [id number] CC: ANA Motta; Dr. Marion Feng MD ~ Community Support Specialist: Signed [facility] PET/CT Tumor Base -Thigh Ini ton 12-07-2024 PET/CT Tumor Base -Thigh Init [facility] Imaging Services [address] [place] [address] PET/CT Tumor Base -Thigh Init MR#: [id number] Acct: [id number] Name: RICH JAMES I Rep #: [id number] : 1955 M 68 From: Elizabeth Lundy nd, MD PCP: Dr. Marion Feng MD Status: REG CLI Study: PET/CT Tumor Base -Thigh Init Date of Exam: Exam# [id number] Ordering Dr: Kylie Motta NP MAINTENANCE AIDE-C EXAM: PET/CT Study CLINICAL HISTORY: 68 y/o [...] PET will be reported separately. Reading Location: [id number] CC: ANA Motta; Dr. Marion Feng MD Community Support Specialist: Signed Normal [facility] Pulmonary Visit Reporton Pulmonary Visit Report [facility] Pulmonary Medicine of [address] [place] [address] OFFICE VISIT Date of Service: 12/02/24 MR#: [id number] Acct: [id number] Name: ERIKARICH Whit Rep #: [id number] : 1955 Provider: ANA Motta Age/Sex: 68/M Location: [facility].PMW Status: Signed Assessment and Plan Assessment and [...] F17.210 - Nicotine dependence, cigarettes, uncomplicated Refilled ksisrrixzd-bnciuvow-o ormoterol 160-9-4.8 mcg/actuation (Breztri Aerosphere) 2 inhalations inhalation BID 3 ea 3RF Plan Details Additional Comments: This note was generated with [employer] software. It may contain incorrect words, spelling, [...] L Pulse (more content not included)... Normal [facility] International normalized rat io (INR) measurement by fingerstickOrdered By: Jose Hylton on 11-17-2024 INR Coag (BldC) [Relative time] 2.5 [facility] Comment on above: Critical Value > 4.[address] Lung Screeningon 11-17-[address] Lung Screening [facility] Imaging Services [address] [place], [place] [address] Low Dose CT Lung Screening MR#: [id number] Acct: [id number] Name: RICH JAMES I Rep #: [id number] : 1955 M 68 From: Bjorn Castro MD PCP: Dr. Marion Feng MD Status: [facility] CL Study: Low Dose CT Lung Screening Date of Exam: 11/17 Exam# [id number] Ordering Dr: Kylie Motta MAINTENANCE AIDE MAINTENANCE AIDE-C PROCEDURE: LOW DOSE CT LUNG SCREENING (CTLUNGSCREEN), [...] limited in the absence of IV contrast. Heart/pericardium:Mod erate multivessel coronary atherosclerosis and/or stents. Trace aortic [...] Lung-RADS 4BS as below, this may be infectious/inflammato ry. Recommend CT chest in 1 month. Additional [...] 4. Additional description as above. Recommendations per [employer]. Lung CT Screening Reporting and Data System (Lung-RADS) v. 2021 Reading Location: [id number] CC: ANA Motta; Dr. Marion Feng MD Community Support Specialist: Signed Normal [facility] Protime w/INR Fingerstickon 11-17-2024 INR Coag (PPP) [Relative time] 2.5 {INR} Normal [facility] Comment on above: Result Comment: Crit ical Value > 4.0 Performed By: #### L 9200.0000 #### [facility] Laboratory [address] [place], [place], [id number] Protime Coagsen 26.9 SEC High 11.7-14.9 [facility] Comment on above: Performed By: #### L 9200.0000 #### [facility] [address] [place], [place], [address] Whole blood prothrombin time Ordered By: Jose Hylton on 11-17-2024 PT Coag (Bld) [Time] 26.9 s High 11.7-14.9 [facility] INR Coag (BldC) [Relative ti me]Ordered By: Jose Hylton on 10-19-2024 INR Coag (Bld) [Relative time] 2.2 {INR} [facility] Comment on above: Critical Value > 4.0 PT Coag (Bld) [Time]Ordered By: Jose Hylton on 10-19-2024 Bedside Prothrombin Time 24.3 SEC High 11.7-14.9 [facility] Protime w/INR Fingerstickon 10-19-2024 INR Coag (PPP) [Relative time] 2.2 {INR} Normal [facility] Comment on above: Result Comment: Crit ical Value > 4.0 Performed By: #### L 9200.0000 #### [facility] [address] [place], [address] Protime Coagsen 24.3 SEC High 11.7-14.9 [facility] Comment on above: Performed By: #### L [id number] #### [facility] [address] [place], [address] INR Coag (BldC) [Relative ti me]Ordered By: Jose Hylton on 09-02-2024 INR Coag (Bld) [Relative time] 2.9 {INR} [facility] Comment on above: Critical Value > 4.0 International normalized rat io (INR) measurement by fingerstickOrdered By: Jose Hylton on 09-02-2024 INR Coag (BldC) [Relative time] 2.9 [facility] Comment on above: Critical Value > 4.0 PT Coag (Bld) [Time]Ordered By: Jose Hylton on 09-02-2024 Bedside Prothrombin Time 30.5 SEC High 11.7-14.9 [facility] Protime w/INR Fingerstickon 09-02-2024 INR Coag (PPP) [Relative time] 2.9 {INR} Normal [facility] Comment on above: Result Comment: Crit ical Value > 4.0 Performed By: #### L [id number] #### [facility] [address] [place], [address] Protime Coagsen 30.5 SEC High 11.7-14.9 [facility] Comment on above: Performed By: #### L [id number] #### [facility] [address] [place], [address] Whole blood prothrombin time Ordered By: Jose Warner on 09-02-2024 PT Coag (Bld) [Time] 30.5 s High 11.7-14.9 [facility] INR Coag (BldC) [Relative ti me]Ordered By: Jose Warner on 07-15-2024 INR Coag (Bld) [Relative time] 3.2 {INR} [facility] Comment on above: Critical Value > 4.0 PT Coag (Bld) [Time]Ordered By: [place] Warner on 07-15-2024 Bedside Prothrombin Time 32.7 SEC High 11.7-14.9 [facility] Protime w/INR Fingerstickon 07-15-2024 INR Coag (PPP) [Relative time] 3.2 {INR} Normal [facility] Comment on above: Result Comment: Crit ical Value > 4.0 Performed By: #### L [id number] #### [facility] [address] [place], [address] Protime Coagsen 32.7 SEC High 11.7-14.9 [facility] Comment on above: Performed By: #### L [id number] #### [facility] [address] [place], [address] Capillary blood internationa l normalized ratio (INR)Ordered By: Omaha Warner on 11-17-2023 INR Coag (BldC) [Relative time] 2.6 [facility] Comment on above: Critical Value > 4.0 Whole blood prothrombin time Ordered By: Jose Warner on 11-17-2023 PT Coag (Bld) [Time] 26.3 s 11.7-14.9 [facility] Capillary blood internationa l normalized ratio (INR)Ordered By: Omaha Warner on 10-03-2023 INR Coag (BldC) [Relative time] 3.2 [facility] Comment on above: Critical Value > 4.0 Whole blood prothrombin time Ordered By: Jose Hylton on 10-03-2023 PT Coag (Bld) [Time] 31.6 s 11.7-14.9 [facility] Basophil percentageOrdered B y: Marion Feng on 08-25-2023 Bilirubin [Mass/Vol] 0.90 mg/dL 0.20-1.00 [facility] Comment on above: For patients on eltr ombopag therapy, use of Dimension [place] TBIL is not recommended. Chloride [Moles/Vol] 109 mmol/L 98-107 [facility] Cholesterol [Mass/Vol] 160 mg/dL <200 [facility] Comment on above: <200 mg/dL Desirable 200-240 mg/dL Borderline >240 mg/dL High Risk Glucose [Mass/Vol] 113 mg/dL 74-106 [facility] Comment on above: Fasting Glucose resu lt from 100 to 125 mg/dL suggests IMPAIRED HOMEOSTASIS per A.D.A. criteria. Potassium [Moles/Vol] 4.4 mmol/L 3.5-5.1 [facility] Protein [Mass/Vol] 7.6 g/dL 6.4-8.2 [facility] Sodium [Moles/Vol] 140 mmol/L 136-145 [facility] Triglyceride [Mass/Vol] 178 mg/dL <199 [facility] Comment on above: The drugs N-Acetylcy steine and Metamizole may falsely depress this assay.Serum Triglycerides Reference Interval Normal <150 mg/dL Borderline high 150 - 199 mg/dL High 200 - 499 mg/dL Very High > or = 500 mg/dL Laboratory - Chemistry and C hemistry - challengeOrdered By: Marion Feng on 08-25-2023 Albumin/Globulin [Mass ratio] 1.1 {ratio} 0.9-2.4 [facility] ALP [Catalytic activity/Vol] 51 U/L 45-117 [facility] ALT [Catalytic activity/Vol] 37 U/L 16-61 [facility] Cholesterol in HDL [Mass/Vol] 42 mg/dL >40 [facility] Comment on above: The drugs N-Acetylcy steine and Metamizole may falsely depress this assay. Reference Range HDL <40 mg/dL Low HDL Cholesterol HDL >or= 60 mg/dL High HDL Cholesterol Cholesterol in LDL [Mass/Vol] 82 mg/dL 0-130 [facility] CO2 [Moles/Vol] 29.0 mmol/L 21.0-32.0 [facility] Globulin (S) [Mass/Vol] 3.7 g/dL 2.2-4.2 [facility] Prostate specific Ag IA [Mass/Vol] 0.65 ng/mL 0.00-4.00 [facility] Comment on above: This test was perfor med using the TPSA assay method for [employer] chemistry system. Values obtained with differentassay methods cannot be used interchangably.When changing PSA assays in the course of monitoring apatient, additional sequential testing should be carriedout to confirm baseline values. Urea nitrogen/Creatinine [Mass ratio] 15.8 mg/mg 10-20 [facility] No Panel InformationOrdered By: Marion Feng on 08-25-2023 Estimated GFR (MDRD) Amer 78 mL/min >60 [facility] Comment on above: GFR Calc Estimated GFR (MDRD) Non-Af Amer 64 mL/min >60 [facility] Comment on above: Non- GFR Calc VLDL Cholesterol 36 mg/dL 5-40 [facility] Serum or plasma calcium laura urement (mass/volume)Ordered By: Marion Feng on 08-25-2023 Calcium [Mass/Vol] 9.4 mg/dL 8.5-10.1 [facility] Serum or plasma creatinine m easurement (mass/volume)Ordered By: Marion Fegn on 08-25-2023 Creatinine [Mass/Vol] 1.20 mg/dL 0.70-1.30 [facility] Comment on above: The validity of the calculated GFR & GFRAA in patients over 70 years has not been determined. Clinical correlation is essential. Serum or plasma urea nitroge n measurement (mass/volume)Ordered By: Marion Feng on 08-25-2023 Urea nitrogen [Mass/Vol] 19 mg/dL 7-18 [facility] Thin prep Papanicolaou smear with manual screeningOrdered By: Marion Feng on 08-25-2023 Thin prep Papanicolaou smear with manual screening 3.9 g/dL 3.2-5.0 [facility] Thin prep Papanicolaou smear with manual screening 30 U/L 15-37 [facility] Thin prep Papanicolaou smear with manual screening 2 5-15 [facility] Laboratory - CoagulationOrde red By: Jose Hylton on 07-22-2023 INR Coag (Bld) [Relative time] 2.3 {INR} [facility] Comment on above: Critical Value > 4.0 Whole blood prothrombin time Ordered By: Jose Hylton on 07-22-2023 PT Coag (Bld) [Time] 24.9 s 11.7-14.9 [facility] Laboratory - CoagulationOrde red By: Jose Hylton on 05-23-2023 INR Coag (Bld) [Relative time] 2.2 {INR} [facility] Comment on above: Critical Value > 4.0 Whole blood prothrombin time Ordered By: Jose Hylton on 05-23-2023 PT Coag (Bld) [Time] 24.4 s 11.7-14.9 [facility] CNOVon 05-05-2023 CNOV Office Visit (AGCARDPOB) RICH JAMES I ([id number]) 1955 Desiree NFR Date Time Provider Department 05/05/23 8:00 AM AYLIN MATHEW AGCARDPOB During your visit today, we recorded the following information about you: Pulse Blood pressure Weight Height 52/minute 115/66 90.7 kg 1.778 m Aylin Mathew MD 05/05/2023 8:38 AM Signed [facility] [place] [facility] SECTION OF CARDIAC PACING and ELECTROPHYSIOLOGY OUTPATIENT VISIT DATE May 05, 2023 OUTPATIENT VISIT TYPE NEW PRIMARY CARE PHYSICIAN: Marion Feng [address] [place] [id number] REFERRING PHYSICIAN: SELF CHIEF COMPLAINT: Follow up [...] 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 He denies any symptoms of recurrent AF, angina, dizziness, lightheadedness, near-syncope, shortness of breath, worsening activity tolerance, or constitutional symptoms. He reports this is the best he has felt in years. Patient is compliant with his Toprol-XL and Coumadin regimens. He is a [id number] of 3 secondary to age and DVT. [...] regimens. CT of chest was performed at [facility] and showed no concerning findings. 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 Normal [facility] Laboratory - CoagulationOrde red By: Jose Hylton on 04-02-2023 INR Coag (Bld) [Relative time] 2.7 {INR} [facility] Comment on above: Critical Value > 4.0 Whole blood prothrombin time Ordered By: Jose Hylton on 04-02-2023 PT Coag (Bld) [Time] 29.3 s 11.7-14.9 [facility] - CoagulationOrde red By: Jose Hylton on 02-06-2023 INR Coag (Bld) [Relative time] 2.8 {INR} [facility] Comment on above: Critical Value > 4.0 Whole blood prothrombin time Ordered By: Jose Hylton on 02-06-2023 PT Coag (Bld) [Time] 30.2 s 11.7-14.9 [facility] CNOVon 01-27-2023 CNOV Office Visit (ANIBALPOB) ERIKA,TIMOTHY I ([id number]) 1955 M NFR Date Time Provider Department 01/27/23 8:30 AM NIKITA ORTIZ During your visit today, we recorded the following information about you: Pulse Blood pressure Weight 55/minute 116/64 91.2 kg Nikita Ortiz APRN.CNP 01/27/2023 9:09 AM Signed [facility] General Cardiology Electrophysiology PRIMARY CARE PHYSICIAN: Marion Feng [address] [place] [address] CHIEF COMPLAINT: Persistent atrial fibrillation. HISTORY OF PRESENT ILLNESS (copied from my previous office note on 11/05/2022): Rich is a pleasant 66-year-old gentleman who presents today for 3-month follow-up status post radiofrequency PVI with Dr. Mathew on 08/05/2022. Overall patient reports he has been feeling very well lately. 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 CT of chest was performed at [facility] and showed no concerning findings. Surface echo and Holter monitor results currently pending. Agreeable to follow-up in 3 months. Interval History: Rich is a pleasant 67-year-old gentleman who presents today for follow-up regarding history of persistent atrial fibrillation. Overall patient reports feeling excellent. 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 He denies any symptoms of recurrent AF, angina, dizziness, lightheadedness, near-syncope, shortness of breath, worsening activity tolerance, or constitutional symptoms. He reports this is the best he has felt in years. Patient is compliant with his Toprol-XL and Coumadin regimens. He is a [id number] of 3 secondary to age and DVT. [...] mg ta (more content not included)... Normal [facility] Laboratory - CoagulationOrde red By: Jose Hylton on 01-16-2023 INR Coag (Bld) [Relative time] 1.8 {INR} [facility] Comment on above: Critical Value > 4.0 Whole blood prothrombin time Ordered By: Jose Hylton on 01-16-2023 PT Coag (Bld) [Time] 19.7 s 11.7-14.9 [facility] Absolute lymphocyte countOrd ered By: Dr. Feng on 12-02-2022 Lymphocytes Auto (Unsp spec) [#/Vol] 1.54 10*3/uL 0.83-4.51 [facility] Basophil percentageOrdered B y: Dr. Feng on 12-02-2022 Basophils/100 WBC (Bld) 1.3 % 0-1 [facility] Bilirubin [Mass/Vol] 0.70 mg/dL 0.20-1.00 [facility] Comment on above: For patients on eltr ombopag therapy, use of Dimension [place] TBIL is not recommended. Chloride [Moles/Vol] 107 mmol/L 98-107 [facility] Cholesterol [Mass/Vol] 156 mg/dL <200 [facility] Comment on above: <200 mg/dL Desirable 200-240 mg/dL Borderline >240 mg/dL High Risk Eosinophils/100 WBC (Bld) 5.4 % 0-5 [facility] Glucose [Mass/Vol] 101 mg/dL 74-106 [facility] Comment on above: Fasting Glucose resu lt from 100 to 125 mg/dL suggests IMPAIRED HOMEOSTASIS per A.D.A. criteria. Neutrophils (Bld) [#/Vol] 3.4 10*3/uL 2.0-7.7 [facility] Neutrophils/100 WBC (Bld) 57.8 % 47-70 [facility] Potassium [Moles/Vol] 4.4 mmol/L 3.5-5.1 [facility] Protein [Mass/Vol] 7.5 g/dL 6.4-8.2 [facility] Sodium [Moles/Vol] 141 mmol/L 136-145 [facility] Triglyceride [Mass/Vol] 138 mg/dL <199 [facility] Comment on above: The drugs N-Acetylcy steine and Metamizole may falsely depress this assay.Serum Triglycerides Reference Interval Normal <150 mg/dL Borderline high 150 - 199 mg/dL High 200 - 499 mg/dL Very High > or = 500 mg/dL WBC (Bld) [#/Vol] 6.0 10*3/uL 4.4-11.0 [facility] Blood erythrocytes count (nu mber/volume)Ordered By: Dr. Feng on 12-02-2022 RBC (Bld) [#/Vol] 4.91 10*6/uL 4.6-6.2 [facility] Blood hemoglobin measurement (mass/volume)Ordered By: Dr. Feng on 12-02-2022 Hemoglobin (Bld) [Mass/Vol] 15.2 g/dL 13.0-16.5 [facility] Blood lymphocytes/100 leukoc ytesOrdered By: Dr. Feng on 12-02-2022 Lymphocytes/100 WBC (Bld) 25.8 % 19-41 [facility] Blood monocytes/100 leukocyt esOrdered By: Dr. Feng on 12-02-2022 Monocytes/100 WBC (Bld) 9.4 % 0-10 [facility] Blood platelet mean volumeOr dered By: Dr. Feng on 12-02-2022 Platelet mean volume (Bld) [Entitic vol] 9.8 fL 6.2-12.0 [facility] Determination of erythrocyte mean corpuscular volume (MCV)Ordered By: Dr. Feng on 12-02-2022 MCV (RBC) [Entitic vol] 94.7 fL 80-94 [facility] Hematocrit Auto (Bld) [Volum e fraction]Ordered By: Dr. Feng on 12-02-2022 Hematocrit (Bld) [Volume fraction] 46.5 % 40-54 [facility] INR in Blood by Coagulation assayOrdered By: Dr. Hylton on 12-02-2022 INR Coag (Bld) [Relative time] 2.1 {INR} [facility] Laboratory - Chemistry and C hemistry - challengeOrdered By: Dr. Feng on 12-02-2022 ALP [Catalytic activity/Vol] 51 U/L 45-117 [facility] ALT [Catalytic activity/Vol] 38 U/L 16-61 [facility] CO2 [Moles/Vol] 27.0 mmol/L 21.0-32.0 [facility] Globulin (S) [Mass/Vol] 3.6 g/dL 2.2-4.2 [facility] Urea nitrogen/Creatinine [Mass ratio] 15.2 mg/mg 10-20 [facility] Laboratory - CoagulationOrde red By: Dr. Hylton on 12-02-2022 PT Coag (PPP) [Time] 23.7 s 11.7-14.9 [facility] Laboratory - Hematology and Cell countsOrdered By: Dr. Feng on 12-02-2022 Erythrocyte distribution width (RBC) [Entitic vol] 47.8 fL 35.1-43.9 [facility] Erythrocyte distribution width (RBC) [Ratio] 13.6 % 11.6-14.6 [facility] Immature granulocytes/100 WBC (Bld) 0.300 % 0.0-0.9 [facility] Comment on above: IG% - Immature Granu locytes (promyelocytes, myelocytes and metamyelocytes) > 1% indicates that a LEFT SHIFT is Present. MCH (RBC) [Entitic mass] 31.0 pg 27.0-32.0 [facility] Nucleated RBC/100 WBC (Bld) [Ratio] 0 % 0-5 [facility] MCHC Auto (RBC) [Mass/Vol]Or dered By: Dr. Feng on 12-02-2022 MCHC (RBC) [Mass/Vol] 32.7 g/dL 32-36 [facility] No Panel InformationOrdered By: Dr. Feng on 12-02-2022 Estimated GFR (MDRD) Amer 98 mL/min >60 [facility] Comment on above: GFR Calc Estimated GFR (MDRD) Non-Af Amer 81 mL/min >60 [facility] Comment on above: Non- GFR Calc Vitamin D 25-Hydroxy 43.0 ng/mL [facility] Comment on above: Vitamin D 25(OH) Sta tus Range Deficiency <20 ng/mL (50nmol/L) Insufficiency 20 - 30 ng/mL (50 - 75 nmol/L) Sufficiency 30 - 100 ng/mL (75 - 250 nmol/L) Toxicity >100 ng/mL (>250 nmol/L) Platelets bldOrdered By: Dr. Feng on 12-02-2022 Platelets (Bld) [#/Vol] 229 10*3/uL 150-450 [facility] Serum or plasma albumin laura urement (mass/volume)Ordered By: Dr. Feng on 12-02-2022 Albumin [Mass/Vol] 3.9 g/dL 3.2-5.0 [facility] Serum or plasma albumin/glob ulin mass ratioOrdered By: Dr. Feng on 12-02-2022 Albumin/Globulin [Mass ratio] 1.1 {ratio} 0.9-2.4 [facility] Serum or plasma calcium laura urement (mass/volume)Ordered By: Dr. Feng on 12-02-2022 Calcium [Mass/Vol] 9.2 mg/dL 8.5-10.1 [facility] Serum or plasma cholesterol in HDL measurement (mass/volume)Ordered By: Dr. Feng on 12-02-2022 Cholesterol in HDL [Mass/Vol] 41 mg/dL >40 [facility] Comment on above: The drugs N-Acetylcy steine and Metamizole may falsely depress this assay. Reference Range HDL <40 mg/dL Low HDL Cholesterol HDL >or= 60 mg/dL High HDL Cholesterol Serum or plasma cholesterol in VLDL measurement (mass/volume)Ordered By: Dr. Fneg on 12-02-2022 Cholesterol in VLDL [Mass/Vol] 28 mg/dL 5-40 [facility] Serum or plasma creatinine m easurement (mass/volume)Ordered By: Dr. Feng on 12-02-2022 Creatinine [Mass/Vol] 0.99 mg/dL 0.70-1.30 [facility] Comment on above: The validity of the calculated GFR & GFRAA in patients over 70 years has not been determined. Clinical correlation is essential. Serum or plasma low density lipoprotein (LDL) cholesterol measurement (mass/volume)Ordered By: Dr. Feng on 12-02-2022 Cholesterol in LDL [Mass/Vol] 87 mg/dL 0-130 [facility] Serum or plasma urea nitroge n measurement (mass/volume)Ordered By: Dr. Feng on 12-02-2022 Urea nitrogen [Mass/Vol] 15 mg/dL 7-18 [facility] Thin prep Papanicolaou smear with manual screeningOrdered By: Dr. Feng on 12-02-2022 Thin prep Papanicolaou smear with manual screening 31 U/L 15-37 [facility] Thin prep Papanicolaou smear with manual screening 7 5-15 [facility] CNPNon 11-20-2022 CNPN Telephone (AGCARDPOB ) RICH JAMES I ([id number]) 1955 M NFR Date Time Provider Department 11/20/22 AYLIN MATHEW During your visit today, we recorded the following information about you: Georgina Dudley RN 11/20/2022 9:46 AM Signed Received a [...] Date Reviewed: 11/05/2022 Reviewed by: Nikita Ortiz APRN.BONDERIZER - Fully Assessed Reason for Visit: Patient Update [1234] Prescriptions as of 11/20/2022 - metoprolol succinate ER (TOPROL XL) 25 mg 24 hr tablet Take 1 tablet by mouth once daily. - loratadine (CLARITIN) 10 mg tablet Take 10 mg by mouth once daily. - CPAP daily at bedtime. - FAMOTIDINE ORAL Take 20 mg by mouth once daily. - umeclidinium-vilanter ol (ANORO ELLIPTA) 62.5-25 mcg/actuation inhaler Inhale 1 Puff as instructed once daily. - loratadine-pseudoephe drine ER (CLARITIN-D 24 HOUR) 10-240 mg Tb24 [...] Encounter Status:Closed by GEORGINA DUDLEY on 11/20/22 [facility] 11-19-2022 CNPN Telephone (AGCARDPOB ) ERIKA,TIMOTHY Whit ([id number]) 1955 M NFR Date Time Provider Department [...] of 's response to monitor results and recommendations.Patijimmie pal voiced understanding. 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 - loratadine (CLARITIN) 10 mg tablet Take 10 mg by mouth once daily. - CPAP daily at bedtime. - FAMOTIDINE ORAL Take 20 mg by mouth once daily. - umeclidinium-vilanter ol (ANORO ELLIPTA) 62.5-25 mcg/actuation inhaler Inhale 1 Puff as instructed once daily. - loratadine-pseudoephe drine ER (CLARITIN-D 24 HOUR) 10-240 mg Tb24 [...] Encounter Status:Closed by AYLIN MATHEW on 11/19/22 [facility] Danyel 11-07-2022 BLAYNEN Telephone (Oyster) RICH JAMES I ([id number]) 1955 M NFR Date Time Provider Department [...] response to Echo results. Patient voiced understanding. ROSELIA Jovel 11/19/2022 1:20 PM Signed Received Holter Monitor Report for pt. Placed in Dr. Mathew's inbox @ [facility] for review. Sanjeev Langford November 19, 2022 1:20 PM Allergies As of Date: 11/07/2022 Noted Allergy Reaction SEASONAL ALLERGIES 02/18/2020 14 - Other: See Comments Date Reviewed: 11/05/2022 Reviewed by: Nikita Ortiz APRN.BONDERIZER - Fully Assessed Reason for Visit: Results [95] Prescriptions as of 11/19/2022 - metoprolol succinate ER (TOPROL XL) 25 mg 24 hr tablet Take 1 tablet by mouth once daily. - loratadine (CLARITIN) 10 mg tablet Take 10 mg by mouth once daily. - CPAP daily at bedtime. - FAMOTIDINE ORAL Take 20 mg by mouth once daily. - umeclidinium-vilanter ol (ANORO ELLIPTA) 62.5-25 mcg/actuation inhaler Inhale 1 Puff as instructed once daily. - loratadine-pseudoephe drine ER (CLARITIN-D 24 HOUR) 10-240 mg Tb24 [...] Encounter Status:Closed by NILSA ROSE on 11/07/22 Normal [facility] CNOVon 11-05-2022 CNOV Office Visit (AGCARDPOB) RICH JAMES I ([id number]) 1955 M NFR Date Time Provider Department 11/05/22 10:00 AM NIKITA ORTIZ AGCARDPOPeng During your visit today, we recorded the following information about you: Pulse Blood pressure Weight 48/minute 111/60 93.4 kg Vicky Curtis MA 11/05/2022 10:33 AM Signed No cardiac complaints today. FRANCE Harry APRN.BONDERIZER 11/05/2022 10:33 AM Signed [facility] Cardiology Electrophysiology PRIMARY CARE PHYSICIAN: Marion Feng [facility] [place] [address] CHIEF COMPLAINT: 3 months post radiofrequency PVI [...] well lately. 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 CT of chest was performed at [facility] and showed no concerning findings. Surface echo [...] Use [place] (more content not included)... Normal [facility] ECHOon 11-05-2022 Echocardiography Echocardiography Report: Transthoracic Echo [facility] Date of service: 11/05/2022 8:23:41 AM [facility] Ordering physician: AYLIN MATHEW Indication: Sustained atrial fibrillation Technologist: Barnden Joseph Interpreting physician: Carter Garrido MD PATIENT: [...] * * * Final * * * CC [employer] [employer] [facility] [employer] : [id number] [email or web address] Normal [facility] Basophil percentageOrdered B y: Hi Swanson on 10-14-2022 Creatinine [Mass/Vol] 1.3 mg/dL 0.70-1.30 [facility] Laboratory - Chemistry and C hemistry - challengeOrdered By: Hi Swanson on 10-14-2022 GFR/1.73 sq M.predicted among non-blacks MDRD (S/P/Bld) [Vol rate/Area] 58.0000 mL/min/{1.73_m2} >60 [facility] Laboratory - CoagulationOrde red By: Dr. Hylton on 10-03-2022 INR Coag (Bld) [Relative time] 2.0 {INR} [facility] Comment on above: Critical Value > 4.0 Whole blood prothrombin time Ordered By: Dr. Hylton on 10-03-2022 PT Coag (Bld) [Time] 21.5 s 11.7-14.9 [facility] Laboratory - CoagulationOrde red By: Dr. Hylton on 09-13-2022 INR Coag (Bld) [Relative time] 2.3 {INR} [facility] Comment on above: Critical Value > 4.0 Whole blood prothrombin time Ordered By: Dr. Hylton on 09-13-2022 PT Coag (Bld) [Time] 27.3 s 11.7-14.9 [facility] CNPNon 08-23-2022 CNPN Telephone (AGCARDPOB ) ERIKARICH Sherman ([id number]) 1955 M NFR Date Time Provider Department [...] Visit Diagnosis:Persistent atrial fibrillation (HCC) [I48.19] Order(s):ECHO [[id number]] Order #: [id number]: 1 FUTURE perflutren lipid microspheres 1.3 mL in NaCl (PF) 0.9% 10 mL injection (DEFINITY)Disp: Rfl: sodium chloride 0.9 % (flush) 10 mL (BD POSIFLUSH)Disp: Rfl: HOLTER MONITOR 24 HOUR [[id number]] Order #: [id number] FUTURE CTA CHEST (NONGATED) W IVCON [[id number]] Order #: [id number] FUTURE iv contrast (will be provided with [...] 20 mg by mouth once daily. - umeclidinium-vilanter ol (ANORO ELLIPTA) 62.5-25 mcg/actuation inhaler Inhale 1 Puff as instructed once daily. - loratadine-pseudoephe drine ER (CLARITIN-D 24 HOUR) 10-240 mg Tb24 [...] daily. - Miscellaneous Medical Supply (COMPRESSION STOCKINGS) [facility] M[facility] Use as directed (Pressure 30-40mmHg) to [...] Encounter Stat (more content not included)... Normal [facility] ANES POSTPROC EVALon 023 ANES POSTPROC EVAL HNO ID: [id number] Author: Juwan Murry MD Service: Anesthesiology Author Type: Anesthesiologist Type: Anesthesia Postprocedure Evaluation Filed: 08/06/2022 11:09 AM Note Text: POST ANESTHESIA EVALUATION NOTE : 1955 Procedure Summary Date: 08/05/22 Room / Location: [place] [facility] Anesthesia Start: 09 Anesthesia Stop: 1601 Procedure: COMPLETE EPS W/PVI ABL W/WO 3D [...] August 06, 2022 TIME: 11:08 AM CSN: [id number] [facility] 08-06-2022 [facility] HNO ID: [id number] Author: Nikita Ortiz APRN.BONDERIZER Service: Electrophysiology Author Type: Nurse Practitioner Type: Discharge Summary Filed: 08/06/2022 11:40 AM Note Text: Attestation signed by Aylin Mathew MD at 08/07/2022 5:02 PM Attending Note I reviewed the Code Official's note. I agree with the assessment and [...] call for appointment?: No Aylin Mathew MD [phone] [place] [address] [place] [facility] [address] PCP Requested Referral Additional Provider to Provider [...] for stroke POA: Unknown Assessment AND Plan: [id number] of 3 secondary to embolism and age. Remains anticoagulated on Coumadin 5 mg daily. Treatment Team: Attending Provider: Aylin Mathew MD FOLLOW-UP APPOINTMENTS ALREADY SCHEDULED WITH A [facility] PROVIDER: No future appointments. ALLERGIES Allergen Reactions [...] on Wednesdays (more content not included)... Normal [facility] ANES PRE-OPon 08-05-2022 ANES PRE-OP HNO ID: [id number] Author: Juwan Murry MD Service: Anesthesiology Author Type: Anesthesiologist Type: Anesthesia Preprocedure Evaluation Filed: 08/06/2022 11:09 AM Note Text: ANESTHESIOLOGY DAY OF SURGERY NOTE : 1955 Procedure Information Date/Time: 08/05/2215 Procedure: COMPLETE EPS W/PVI ABL W/WO 3D MAP ICE (Bilateral) - carto/rf hANDp on 07/30? Check with Priyanka pacu/rou [place]: [place] [facility] [place] [facility] Surgeons: Aylin Mathew MD Estimated [...] and consent discussed: yes. Patient / Responsible Republican agrees to proceed: yes Patient / Surrogate [...] 20 mg by mouth once daily. - umeclidinium-vilanter ol (ANORO ELLIPTA) 62.5-25 mcg/actuation inhaler Inhale 1 Puff as instructed once daily. - loratadine-pseudoephe drine ER (CLARITIN-D 24 HOUR) 10-240 mg Tb24 [...] daily. - Miscellaneous Medical Supply (COMPRESSION STOCKINGS) [facility] Use as directed (Pressure 30-40mmHg) to [...] August 05, 2022 TIME: 8:14 AM CSN: [id number] Normal [facility] Basic metabolic 2000 panelon 08-05-2022 Anion gap [Moles/Vol] 10 mmol/L Normal 9-18 [facility] Comment on above: Order Comment: Speci men Type: BLOOD SPECIMEN Ordering Facility: [facility] Address: [address] [place] [phone] Performed By: #### 2 4321-2 #### [facility] CLIA [id number] 1 [place] [address] [place] Calcium [Mass/Vol] 9.1 mg/dL Normal 8.5-10.2 [facility] Comment on above: Order Comment: Speci men Type: BLOOD SPECIMEN Ordering Facility: [facility] Address: [address] [place] [address] Performed By: #### 2 4321-2 #### [facility] CLIA [id number] 1 [place] [address] [place] Chloride [Moles/Vol] 107 mmol/L High 97-105 [facility] Comment on above: Order Comment: Speci men Type: BLOOD SPECIMEN Ordering Facility: [facility] Address: [address] [place] [address] Performed By: #### 2 4321-2 #### [facility] CLIA [id number] [address] [place] CO2 [Moles/Vol] 22 mmol/L Normal 22-30 [facility] Comment on above: Order Comment: Speci men Type: BLOOD SPECIMEN Ordering Facility: [facility] Address: [address] [place] [address] Performed By: #### 2 4321-2 #### [facility] CLIA [id number] [address] [place] Creatinine [Mass/Vol] 1.01 mg/dL Normal 0.73-1.22 [facility] Comment on above: Order Comment: Speci men Type: BLOOD SPECIMEN Ordering Facility: [facility] Address: [address] [place] [address] Performed By: #### 2 4321-2 #### [facility] CLIA [id number] [address] ESTIMATED GLOMERULAR FILTRATION RATE 83 mL/min/1.73m??? Normal >=60 [facility] Comment on above: Order Comment: Speci men Type: BLOOD SPECIMEN Ordering Facility: [facility] Address: [address] [place], [place] [phone] Result Comment: Vidya mated Glomerular Filtration Rate [...] GFR. Performed By: #### 2 4321-2 #### [facility] CLIA [id number] [address] [place] [address] [place] Glucose [Mass/Vol] 107 mg/dL High 74-99 [facility] Comment on above: Order Comment: Júnior ireland Type: BLOOD SPECIMEN Ordering Facility: [facility] Address: [address] [place] [address] Result Comment: The [place] Diabetes Association (ADA) provides guidance for cutoff [...] Standards of Medical Care in Diabetes 2016, [place] [employer] Association. Diabetes Care. 2016.39(Suppl 1). Performed By: #### 2 4321-2 #### [facility] CLIA [id number] [address] [place] [address] [place] Potassium [Moles/Vol] 4.3 mmol/L Normal 3.7-5.1 [facility] Comment on above: Order Comment: Júnior ire[place] Type: BLOOD SPECIMEN Ordering Facility: [facility] Address: [address] Performed By: #### 2 4321-2 #### [facility] CLIA [id number] 1 [place] [address] [place] Sodium [Moles/Vol] 139 mmol/L Normal 136-144 [facility] Comment on above: Order Comment: Speci men Type: BLOOD SPECIMEN Ordering Facility: [facility] Address: [address] [place] [address] Performed By: #### 2 4321-2 #### [facility] CLIA [id number] [address] Urea nitrogen [Mass/Vol] 17 mg/dL Normal 9-24 [facility] Comment on above: Order Comment: Speci men Type: BLOOD SPECIMEN Ordering Facility: [facility] Address: [address] [address] Performed By: #### 2 4321-2 #### [facility] CLIA [id number] [address] [facility] CBC panel Auto (Bld)on 08-05 Erythrocyte distribution width (RBC) [Ratio] 14.1 % Normal 11.5-15.0 [facility] Comment on above: Order Comment: Speci men Type: BLOOD SPECIMEN Ordering Facility: [facility] Address: [address] [address] Performed By: #### T SCR #### [facility] CLIA [id number] [address] [facility] Hematocrit (Bld) [Volume fraction] 46.6 % Normal 39.0-51.0 [facility] Comment on above: Order Comment: Speci men Type: BLOOD SPECIMEN Ordering Facility: [facility] Address: [address] [address] Performed By: #### T SCR #### [facility] CLIA [id number] [address] [place] Hemoglobin (Bld) [Mass/Vol] 15.3 g/dL Normal 13.0-17.0 [facility] Comment on above: Order Comment: Speci men Type: BLOOD SPECIMEN Ordering Facility: [facility] Address: [address] [address] Performed By: #### T SCR #### [facility] CLIA [id number] [address] MCH (RBC) [Entitic mass] 31.2 pg Normal 26.0-34.0 [facility] Comment on above: Order Comment: Speci men Type: BLOOD SPECIMEN Ordering Facility: [facility] Address: [address] [place] [address] Performed By: #### T SCR #### [facility] CLIA [id number] [address] MCHC (RBC) [Mass/Vol] 32.8 g/dL Normal 30.5-36.0 [facility] Comment on above: Order Comment: Speci men Type: BLOOD SPECIMEN Ordering Facility: [facility] Address: [address] [place] [address] Performed By: #### T SCR #### [facility] CLIA [id number] [address] MCV (RBC) [Entitic vol] 95.1 fL Normal 80.0-100.0 [facility] Comment on above: Order Comment: Speci men Type: BLOOD SPECIMEN Ordering Facility: [facility] Address: [address] [place] [address] Performed By: #### T SCR #### [facility] CLIA [id number] [address] Nucleated RBC (Bld) [#/Vol] 10*3/uL Normal <0.01 [facility] Comment on above: Order Comment: Speci men Type: BLOOD SPECIMEN Ordering Facility: [facility] Address: [address] [place] [address] Performed By: #### T SCR #### [facility] CLIA [id number] [address] Platelet mean volume (Bld) [Entitic vol] 9.6 fL Normal 9.0-12.7 [facility] Comment on above: Order Comment: Speci men Type: BLOOD SPECIMEN Ordering Facility: [facility] Address: [address] [address] Performed By: #### T SCR #### [facility] CLIA [id number] [address] Platelets (Bld) [#/Vol] 206 10*3/uL Normal 150-400 [facility] Comment on above: Order Comment: Speci men Type: BLOOD SPECIMEN Ordering Facility: [facility] Address: [address] [place] [address] Performed By: #### T SCR #### [facility] CLIA [id number] [address] RBC (Bld) [#/Vol] 4.90 10*6/uL Normal 4.20-6.00 [facility] Comment on above: Order Comment: Speci men Type: BLOOD SPECIMEN Ordering Facility: [facility] Address: [address] [place] [address] Performed By: #### T SCR #### [facility] CLIA [id number] [address] WBC (Bld) [#/Vol] 5.62 10*3/uL Normal 3.70-11.00 [facility] Comment on above: Order Comment: Speci men Type: BLOOD SPECIMEN Ordering Facility: [facility] Address: [address] [place] [address] Performed By: #### T SCR #### [facility] CLIA [id number] [address] CONFIRM BLOOD TYPEon -16-2 023 ABO A Normal [facility] Comment on above: Order Comment: Speci men Type: BLOOD SPECIMEN Ordering Facility: [facility] Address: [address] [place] [address] Performed By: #### C ONABO #### [facility] CLIA [id number] [address] Rh Nom (Bld) Positive Normal [facility] Comment on above: Order Comment: Speci men Type: BLOOD SPECIMEN Ordering Facility: [facility] Address: [address] [place] [phone] Performed By: #### C ONABO #### [facility] CLIA [id number] 1 [place] [address] [place] ECG COMPLETEon 08-05-2022 ECG COMPLETE Ventricular Rate : 5 9 BPM Atrial Rate : 73 BPM P-R Interval : 188 ms QRS Duration : 122 ms Q-T Interval : 450 ms QTC Calculation(Bazett) : 445 ms Calculated P [place] : 77 degrees Calculated R [place] : -58 degrees Calculated T [place] : -39 degrees SINUS RHYTHM WITH BLOCKED PREMATURE ATRIAL COMPLEXES RIGHT BUNDLE BRANCH BLOCK LEFT ANTERIOR FASCICULAR BLOCK BIFASCICULAR BLOCK T WAVE ABNORMALITY, CONSIDER LATERAL ISCHEMIA ABNORMAL ECG NO PREVIOUS ECGS AVAILABLE Confirmed by MD HOWELL KAMALESH ([id number]) on 08/07/2022 4:32:27 PM NAME : RICH JAMES PID : [id number] : 1955 Gender : Male Race : ORD : [id number] Procedure Date : Aug 05 2022 16:43:14 Edit Date : Aug 07 2022 16:32:28 Diagnosis: SINUS RHYTHM WITH BLOCKED PREMATURE ATRIAL COMPLEXES RIGHT BUNDLE BRANCH BLOCK LEFT ANTERIOR FASCICULAR BLOCK BIFASCICULAR BLOCK T WAVE ABNORMALITY, CONSIDER LATERAL ISCHEMIA ABNORMAL ECG NO PREVIOUS ECGS AVAILABLE Confirmed by MD HOWELL KAMALESH ([id number]) on 08/07/2022 4:32:27 PM Test Reason : Arrhythmia Location : 29 : LAB POOL Overread By : MD HOWELL KAMALESH Edited By : MD HOWELL KAMALESH Referred By : AYLIN MATHEW Acquired by : LEONA STONE [facility] HISTORY PHYSICALon HISTORY PHYSICAL HNO ID: [id number] Author: Aylin Mathew MD Service: Electrophysiology Author [...] August 05, 2022 TIME: 9:04 AM Normal [facility] HISTORY PHYSICAL HNO ID: [id number] Author: Nikita Ortiz APRN.BONDERIZER Service: Electrophysiology Author Type: Nurse Practitioner Type: [...] He follows with Dr. Hylton out of [place]. Lengthy discussion was had as to what to expect pre-/intra-/post PVI with patient and spouse. Topics included general anesthesia, procedure overview, recovery, overnight stay in [facility], medications, and follow-up. Risk and benefit discussion was also had. Very low risk of stroke, bleeding, or . Benefit being long-term maintenance of normal sinus rhythm. Patient last ate at 2000 on 08/04/2022. Patient has seasonal allergies but none other that he is aware of. He denies having trouble with anesthesia in the past. He endorses previous symptoms of AF including fatigue/worsened activity tolerance as well as shortness of breath. [id number] of at least 3 secondary to age [...] Yes No Miscellaneous Medical Supply (COMPRESSION STOCKINGS) Misc Misc No No Sig: Use as directed (Pressure [...] Take 10 mg by mouth once daily. loratadine-pseudoephe drine ER (CLARITIN-D 24 HOUR) 10-240 mg Tb24 [...] 1 tablet by mouth daily at bedtime. umeclidinium-vilanter ol (ANORO ELLIPTA) 62.5-25 mcg/actuation inhaler Yes No [...] Negative. Cardiova (more content not included)... Normal [facility] OPERATIVE NOon 01-16-2023 OPERATIVE NO HNO ID: [id number] Author: Aylin Mathew MD Service: Electrophysiology Author [...] usual standard sterile fashion 2 short 8 [place] sheaths were placed in the right femoral vein and a long 11 [place] sheath was placed in the left femoral [...] resulted in Sinus rhythm. CL 960 ms MN 155 QRS 130 RBBBB QT 436 AcuNav ice catheter was placed in the right atrium and baseline images obtained. The Lt common os was short. RIPV was small. Next the short 8 [place]und[place] sheath was exchanged for a Cyn transseptal [...] and 20 mg protamine administered The 11 [place] sheath in the left groin was exchanged for a short 8Fr sheath and closed with perclose, hemostasis obtained The right sided sheaths were removed and Perclose used to achieve hemostasis. Patient tolerated the procedure No complications Patient transported out of the lab in stable condition (more content not included)... [facility] SARS-CoV-2 RNA Resp Ql MIKE+p robeon 08-05-2022 SARS-CoV-2 (COVID-19) RNA MIKE+probe Ql (Resp) COVID 19 RESULT: SARS-CoV-2 (Agent of COVID-19) Not Detected by RT-PCR or equivalent method. This test has been authorized by FDA under an Emergency Use Authorization (EUA). [facility] Comment on above: Performed By: #### 9 4500-6 #### [facility] CLIA [id number] [address] [place] [address] TYPE + SCREENon 08-05-2022 ABO A [facility] Comment on above: Order Comment: Speci men Type: BLOOD SPECIMEN [facility] Facility[facility] Address: [address] [place] [address] Performed By: #### T SCR #### [facility] CLIA [id number] [address] HISTORICAL AB SCR STATUS Negative [facility] Comment on above: Order Comment: Speci men Type: BLOOD SPECIMEN Ordering Facility: [facility] Address: [address] [address] Performed By: #### T SCR #### [facility] CLIA [id number] [address] [place] [address] Rh Nom (Bld) Positive [facility] Comment on above: Order Comment: Speci men Type: BLOOD SPECIMEN Ordering Facility: [facility] Address: [address] [address] Performed By: #### T SCR #### [facility] CLIA [id number] [address] TYPE AND SCREEN EXPIRATION 08/08/2022 23:59 Normal [facility] Comment on above: Order Comment: Speci men Type: BLOOD SPECIMEN Ordering Facility: [facility] Address: [place] [address] Performed By: #### T SCR #### [facility] CLIA [id number] 1 [place] [address] [place] Laboratory - CoagulationOrde red By: Dr. Hylton on 07-30-2022 INR Coag (Bld) [Relative time] 2.2 {INR} [facility] Comment on above: Critical Value > 4.0 Whole blood prothrombin time Ordered By: Dr. Hylton on 07-30-2022 PT Coag (Bld) [Time] 25.9 s 11.7-14.9 [facility] Laboratory - CoagulationOrde red By: Dr. Hylton on 07-16-2022 INR Coag (Bld) [Relative time] 2.3 {INR} [facility] Comment on above: Critical Value > 4.0 Whole blood prothrombin time Ordered By: Dr. Hylton on 07-16-2022 PT Coag (Bld) [Time] 26.6 s 11.7-14.9 [facility] CNPNon 07-08-2022 CNPN Telephone (AGCANGELY ) RICH JAMES I ([id number]) 1955 M NFR Date Time Provider Department 07/08/22 AYLIN MATHEW During your visit today, we recorded the following information about you: Kianna Craig RN 07/08/2022 2:40 PM Signed Patient is scheduled for EPS w/PVI ablation on 07/18/[address] Mathew. The hospital will call the day before between 2-5pm with your arrival time. Patient should not eat or drink after midnight the day before the procedure. Patient will need a team driver when released from the hospital. You will stay overnight for observation. Patient should continue to take medications as prescribed the morning of the procedure with just a sip of water unless otherwise instructed. Pt verbalized understanding of the above instructions Pt is getting weekly INR's will continue to monitor. BENIGNO Vaughan RN 07/08/2022 2:53 PM Signed Pt's name has been added to [place] procedure board. BENIGNO Mensah 07/11/2022 11:57 AM Signed Patient's procedure date changed to 08/05/[address] Mathew. To continue weekly INRs until procedure. Spoke with patient, he verbalized understanding. Dianne Rust RN 07/11/2022 1:21 PM Signed [place] procedure board updated. BENIGNO Mensah RN 07/17/2022 11:26 AM Addendum 06/25/22- INR- 3.0 07/02/22- INR- 2.6 07/09/22 INR- 2.4 07/16/22- INR- 2.3 Next INR at [facility] is scheduled for 07/23/22. Scheduled for cardioversion on 08/05/[address] Mathew. BENIGNO Tang RN 08/01/2022 10:48 AM Signed INR 07/23/22= 2.3 BENIGNO Mensah RN 08/01/2022 10:56 AM Signed Spoke with with staff at [facility]. 07/30/22 INR 2.2. She will fax [...] 20 mg by mouth once daily. - umeclidinium-vilanter ol (ANORO ELLIPTA) 62.5-25 mcg/actuation inhaler Inhale 1 Puff as instructed once daily. - loratadine-pseudoephe drine ER (CLARITIN-D 24 HOUR) 10-240 mg Tb24 [...] daily. - [facility] as directed (Pressure 30-40mmHg) to [...] Encounter Status:Closed by KIANNA CRAIG on 07/08/22 [facility] CNCOon 07-02-2022 CNCO Letter Text [facility] CNPNon 06-20-2022 CNPN Telephone (AGCARDPOB ) RICH JAMES I ([id number]) 1955 M NFR Date Time Provider Department 06/20/22 AYLIN MATHEW AGCARDPOB During your visit today, [...] 06/21/2022 8:56 AM Signed Left message on transOMICil requesting pt return call for instructions to check INR weekly. Office phone number provided. BENIGNO Mensah RN 06/24/2022 9:50 AM Signed Spoke with pt. He voices understanding to have INRs done every week. He reports he goes to the [facility]. BENIGNO Mensah 07/04/2022 12:09 PM Signed Spoke with patient regarding upcoming procedure. Possible date of 07/18/[address] Mathew. Patient states that he has had INR checks on 06/25 AND 07/02. I reached out to Dr. Hylton's office and they will fax the results of these. Dianne Hernandes Carmen Rust RN 07/04/2022 1:24 PM Signed Pt's name has been added to [facility] procedure board. Will check for INRs to assure we can move forward. BENIGNO Mensah RN 07/16/2022 8:08 AM Signed Aylin Mathew MD Dianne Hernandes 11 days ago Got INR from [place]. We can move forward. 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 - CPAP - flecainide (TAMBOCOR) 100 mg tablet Take 1 tablet by mouth every 12 hours. - FAMOTIDINE ORAL Take 20 mg by mouth once daily. - umeclidinium-vilanter ol (ANORO ELLIPTA) 62.5-25 mcg/actuation inhaler Inhale 1 Puff as instructed once daily. - loratadine-pseudoephe drine ER (CLARITIN-D 24 HOUR) 10-240 mg Tb24 [...] Encounter Status:Closed by AYLIN MATHEW on 06/20/22 Normal [facility] Absolute lymphocyte countOrd ered By: Dr. Feng on 06-11-2022 Lymphocytes Auto (Unsp spec) [#/Vol] 1.55 10*3/uL 0.83-4.51 [facility] Basophil percentageOrdered B y: Dr. Feng on 06-11-2022 Basophils/100 WBC (Bld) 0.9 % 0-1 [facility] Bilirubin [Mass/Vol] 0.50 mg/dL 0.20-1.00 [facility] Comment on above: For patients on eltr ombopag therapy, use of Dimension [place] TBIL is not recommended. Chloride [Moles/Vol] 109 mmol/L 98-107 [facility] Cholesterol [Mass/Vol] 155 mg/dL <200 [facility] Comment on above: <200 mg/dL Desirable 200-240 mg/dL Borderline >240 mg/dL High Risk Eosinophils/100 WBC (Bld) 3.8 % 0-5 [facility] Glucose [Mass/Vol] 102 mg/dL 74-106 [facility] Comment on above: Fasting Glucose resu lt from 100 to 125 mg/dL suggests IMPAIRED HOMEOSTASIS per A.D.A. criteria. Neutrophils (Bld) [#/Vol] 3.9 10*3/uL 2.0-7.7 [facility] Neutrophils/100 WBC (Bld) 60.5 % 47-70 [facility] Potassium [Moles/Vol] 4.5 mmol/L 3.5-5.1 [facility] Protein [Mass/Vol] 7.3 g/dL 6.4-8.2 [facility] Sodium [Moles/Vol] 140 mmol/L 136-145 [facility] Triglyceride [Mass/Vol] 141 mg/dL <199 [facility] Comment on above: The drugs N-Acetylcy steine and Metamizole may falsely depress this assay.Serum Triglycerides Reference Interval Normal <150 mg/dL Borderline high 150 - 199 mg/dL High 200 - 499 mg/dL Very High > or = 500 mg/dL WBC (Bld) [#/Vol] 6.4 10*3/uL 4.4-11.0 [facility] Blood erythrocytes count (nu mber/volume)Ordered By: Dr. Feng on 06-11-2022 RBC (Bld) [#/Vol] 4.97 10*6/uL 4.6-6.2 [facility] Blood hemoglobin measurement (mass/volume)Ordered By: Dr. Feng on 06-11-2022 Hemoglobin (Bld) [Mass/Vol] 15.3 g/dL 13.0-16.5 [facility] Blood lymphocytes/100 leukoc ytesOrdered By: Dr. Feng on 06-11-2022 Lymphocytes/100 WBC (Bld) 24.3 % 19-41 [facility] Blood monocytes/100 leukocyt esOrdered By: Dr. Feng on 06-11-2022 Monocytes/100 WBC (Bld) 10.2 % 0-10 [facility] Blood platelet mean volumeOr dered By: Dr. Feng on 06-11-2022 Platelet mean volume (Bld) [Entitic vol] 9.6 fL 6.2-12.0 [facility] Determination of erythrocyte mean corpuscular volume (MCV)Ordered By: Dr. Feng on 06-11-2022 MCV (RBC) [Entitic vol] 95.4 fL 80-94 [facility] Hematocrit Auto (Bld) [Volum e fraction]Ordered By: Dr. Feng on 06-11-2022 Hematocrit (Bld) [Volume fraction] 47.4 % 40-54 [facility] INR in Blood by Coagulation assayOrdered By: Dr. Feng on 06-11-2022 INR Coag (Bld) [Relative time] 1.8 {INR} [facility] Laboratory - Chemistry and C hemistry - challengeOrdered By: Dr. Feng on 06-11-2022 ALP [Catalytic activity/Vol] 49 U/L 45-117 [facility] ALT [Catalytic activity/Vol] 30 U/L 16-61 [facility] CO2 [Moles/Vol] 27.0 mmol/L 21.0-32.0 [facility] Globulin (S) [Mass/Vol] 3.8 g/dL 2.2-4.2 [facility] Urea nitrogen/Creatinine [Mass ratio] 15.3 mg/mg 10-20 [facility] Laboratory - CoagulationOrde red By: Dr. Feng on 06-11-2022 PT Coag (PPP) [Time] 20.4 s 11.7-14.9 [facility] Laboratory - Hematology and Cell countsOrdered By: Dr. Feng on 06-11-2022 Erythrocyte distribution width (RBC) [Entitic vol] 50.8 fL 35.1-43.9 [facility] Erythrocyte distribution width (RBC) [Ratio] 14.5 % 11.6-14.6 [facility] Immature granulocytes/100 WBC (Bld) 0.300 % 0.0-0.9 [facility] Comment on above: IG% - Immature Granu locytes (promyelocytes, myelocytes and metamyelocytes) > 1% indicates that a LEFT SHIFT is Present. MCH (RBC) [Entitic mass] 30.8 pg 27.0-32.0 [facility] Nucleated RBC/100 WBC (Bld) [Ratio] 0 % 0-5 [facility] MCHC Auto (RBC) [Mass/Vol]Or dered By: Dr. Feng on 06-11-2022 MCHC (RBC) [Mass/Vol] 32.3 g/dL 32-36 [facility] No Panel InformationOrdered By: Dr. Feng on 06-11-2022 Estimated GFR (MDRD) Amer 75 mL/min >60 [facility] Comment on above: GFR Calc Estimated GFR (MDRD) Non-Af Amer 62 mL/min >60 [facility] Comment on above: Non- GFR Calc Prostate Specific Antigen Screen 0.32 ng/mL 0.00-4.00 [facility] Comment on above: This test was perfor med using the TPSA assay method for the[employer] chemistry system. Values obtained with differentassay methods cannot be used interchangably.When changing PSA assays in the course of monitoring apatient, additional sequential testing should be carriedout to confirm baseline values. Thyroid Stimulating Hormone (TSH) 1.66 uIU/mL 0.358-3.74 [facility] Vitamin D 25-Hydroxy 40.8 ng/mL [facility] Comment on above: Vitamin D 25(OH) Sta tus Range Deficiency <20 ng/mL (50nmol/L) Insufficiency 20 - 30 ng/mL (50 - 75 nmol/L) Sufficiency 30 - 100 ng/mL (75 - 250 nmol/L) Toxicity >100 ng/mL (>250 nmol/L) Platelets bldOrdered By: Dr. Fegn on 06-11-2022 Platelets (Bld) [#/Vol] 226 10*3/uL 150-450 [facility] Serum or plasma albumin laura urement (mass/volume)Ordered By: Dr. Feng on 06-11-2022 Albumin [Mass/Vol] 3.5 g/dL 3.2-5.0 [facility] Serum or plasma albumin/glob ulin mass ratioOrdered By: Dr. Feng on 06-11-2022 Albumin/Globulin [Mass ratio] 0.9 {ratio} 0.9-2.4 [facility] Serum or plasma calcium laura urement (mass/volume)Ordered By: Dr. Feng on 06-11-2022 Calcium [Mass/Vol] 8.9 mg/dL 8.5-10.1 [facility] Serum or plasma cholesterol in HDL measurement (mass/volume)Ordered By: Dr. Feng on 06-11-2022 Cholesterol in HDL [Mass/Vol] 34 mg/dL >40 [facility] Comment on above: The drugs N-Acetylcy steine and Metamizole may falsely depress this assay. Reference Range HDL <40 mg/dL Low HDL Cholesterol HDL >or= 60 mg/dL High HDL Cholesterol Serum or plasma cholesterol in VLDL measurement (mass/volume)Ordered By: Dr. Feng on 06-11-2022 Cholesterol in VLDL [Mass/Vol] 28 mg/dL 5-40 [facility] Serum or plasma creatinine m easurement (mass/volume)Ordered By: Dr. Feng on 06-11-2022 Creatinine [Mass/Vol] 1.24 mg/dL 0.70-1.30 [facility] Comment on above: The validity of the calculated GFR & GFRAA in patients over 70 years has not been determined. Clinical correlation is essential. Serum or plasma low density lipoprotein (LDL) cholesterol measurement (mass/volume)Ordered By: Dr. Feng on 06-11-2022 Cholesterol in LDL [Mass/Vol] 93 mg/dL 0-130 [facility] Serum or plasma urea nitroge n measurement (mass/volume)Ordered By: Dr. Feng on 06-11-2022 Urea nitrogen [Mass/Vol] 19 mg/dL 7-18 [facility] Thin prep Papanicolaou smear with manual screeningOrdered By: Dr. Feng on 06-11-2022 Thin prep Papanicolaou smear with manual screening 20 U/L 15-37 [facility] Thin prep Papanicolaou smear with manual screening 4 5-15 [facility] Laboratory - CoagulationOrde red By: Dr. Hylton on 06-04-2022 INR Coag (Bld) [Relative time] 2.0 {INR} [facility] Comment on above: Critical Value > 4.0 Whole blood prothrombin time Ordered By: Dr. Hylton on 06-04-2022 PT Coag (Bld) [Time] 23.2 s 11.7-14.9 [facility] Laboratory - Coagulationon 1 07-30-2021 INR Coag (Bld) [Relative time] 2.1 {INR} [facility] Work Phone: Comment on above: Critical Value > 4.0 Whole blood prothrombin time Ordered By: Dr. Hylton on 05-30-2022 PT Coag (Bld) [Time] 24.9 s 11.7-14.9 [facility] Basophil percentageOrdered B y: Dr. Hylton on 05-23-2022 Chloride [Moles/Vol] 108 mmol/L 98-107 [facility] Glucose [Mass/Vol] 98 mg/dL 74-106 [facility] Potassium [Moles/Vol] 4.5 mmol/L 3.5-5.1 [facility] Sodium [Moles/Vol] 139 mmol/L 136-145 [facility] Laboratory - Chemistry and C hemistry - challengeOrdered By: Dr. Hylton on 05-23-2022 CO2 [Moles/Vol] 26.0 mmol/L 21.0-32.0 [facility] Urea nitrogen/Creatinine [Mass ratio] 16.0 mg/mg 10-20 [facility] Laboratory - Coagulationon 1 07-23-2021 PT Coag (PPP) [Time] 24.8 s 11.7-14.9 [facility] Work Phone: No Panel InformationOrdered By: Dr. Hylton on 05-23-2022 Estimated GFR (MDRD) Amer 75 mL/min >60 [facility] Comment on above: GFR Calc Estimated GFR (MDRD) Non-Af Amer 62 mL/min >60 [facility] Comment on above: Non- GFR Calc Serum or plasma calcium laura urement (mass/volume)Ordered By: Dr. Hylton on 05-23-2022 Calcium [Mass/Vol] 8.8 mg/dL 8.5-10.1 [facility] Serum or plasma creatinine m easurement (mass/volume)Ordered By: Dr. Hylton on 05-23-2022 Creatinine [Mass/Vol] 1.25 mg/dL 0.70-1.30 [facility] Comment on above: The validity of the calculated GFR & GFRAA in patients over 70 years has not been determined. Clinical correlation is essential. Serum or plasma urea nitroge n measurement (mass/volume)Ordered By: Dr. Hylton on 05-23-2022 Urea nitrogen [Mass/Vol] 20 mg/dL 7-18 [facility] Thin prep Papanicolaou smear with manual screeningOrdered By: Dr. Hylton on 05-23-2022 Thin prep Papanicolaou smear with manual screening 5 5-15 [facility] CNOVon 05-15-2022 CNOV Office Visit (AGCARDPOB) RICH JAMES I ([id number]) 1955 M NFR Date Time Provider Department 05/15/22 2:20 PM AYLIN MATHEW During your visit today, we recorded the following information about you: Pulse Respiration Blood pressure Weight 60/minute 18/minute 108/64 95.3 kg Height 1.778 m Keesha Vargas MA 05/15/2022 3:25 PM Signed Patient denies any cardiac issues or symptoms. Aylin Mathew MD 05/15/2022 3:25 PM Signed [facility] [place] [facility] SECTION OF CARDIAC PACING and ELECTROPHYSIOLOGY OUTPATIENT VISIT DATE May 15, 2022 OUTPATIENT VISIT TYPE CONSULTATION PRIMARY CARE PHYSICIAN: Magen Ayon [address] [place] [address] REFERRING PHYSICIAN: No referring provider defined for this encounter. 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 Normal [facility] Laboratory - Coagulationon 1 INR Coag (Bld) [Relative time] 2.2 {INR} [facility] Work Phone: Comment on above: Critical Value > 4.0 Whole blood prothrombin time on 05-15-2022 PT Coag (Bld) [Time] 26.2 s 11.7-14.9 [facility] Work Phone: Laboratory - Coagulationon 0 04-11-2022 INR Coag (Bld) [Relative time] 2.4 {INR} [facility] Work Phone: Comment on above: Critical Value > 4.0 Whole blood prothrombin time on 04-11-2022 PT Coag (Bld) [Time] 27.8 s 11.7-14.9 [facility] Work Phone: Laboratory - Coagulationon 0 04-04-2022 INR Coag (Bld) [Relative time] 2.2 {INR} [facility] Work Phone: Comment on above: Critical Value > 4.0 Whole blood prothrombin time on 04-04-2022 PT Coag (Bld) [Time] 26.3 s 11.7-14.9 [facility] Work Phone: Basophil percentageon 2021 Chloride [Moles/Vol] 107 mmol/L 98-107 [facility] Work Phone: Glucose [Mass/Vol] 104 mg/dL 74-106 [facility] Work Phone: Comment on above: Fasting Glucose resu lt from 100 to 125 mg/dL suggests IMPAIRED HOMEOSTASIS per A.D.A. criteria. Potassium [Moles/Vol] 4.2 mmol/L 3.5-5.1 [facility] Work Phone: Sodium [Moles/Vol] 139 mmol/L 136-145 [facility] Work Phone: Laboratory - Chemistry and C hemistry - challengeon 03-29-2022 CO2 [Moles/Vol] 27.0 mmol/L 21.0-32.0 [facility] Work Phone: Urea nitrogen/Creatinine [Mass ratio] 16.3 mg/mg 10-20 [facility] Work Phone: Laboratory - Coagulationon 0 03-29-2022 PT Coag (PPP) [Time] 25.3 s 11.7-14.9 [facility] Work Phone: No Panel Informationon 03-29 Estimated GFR (MDRD) Amer 72 mL/min >60 [facility] Work Phone: Comment on above: GFR Calc Estimated GFR (MDRD) Non-Af Amer 59 mL/min >60 [facility] Work Phone: Comment on above: Non- GFR Calc Serum or plasma calcium laura urement (mass/volume)on 03-29-2022 Calcium [Mass/Vol] 9.0 mg/dL 8.5-10.1 [facility] Work Phone: Serum or plasma creatinine m easurement (mass/volume)on 03-29-2022 Creatinine [Mass/Vol] 1.29 mg/dL 0.70-1.30 [facility] Work Phone: Comment on above: The validity of the calculated GFR & GFRAA in patients over 70 years has not been determined. Clinical correlation is essential. Serum or plasma urea nitroge n measurement (mass/volume)on 03-29-2022 Urea nitrogen [Mass/Vol] 21 mg/dL 7-18 [facility] Work Phone: Thin prep Papanicolaou smear with manual screeningon 03-29-2022 Thin prep Papanicolaou smear with manual screening 5 5-15 [facility] Work Phone: Laboratory - Coagulationon 0 03-15-2022 INR Coag (Bld) [Relative time] 3.3 {INR} [facility] Work Phone: Comment on above: Critical Value > 4.0 Whole blood prothrombin time on 03-15-2022 PT Coag (Bld) [Time] 36.9 s 11.7-14.9 [facility] Work Phone: Laboratory - Coagulationon 0 12-26-2021 INR Coag (Bld) [Relative time] 2.9 {INR} [facility] Work Phone: Comment on above: Critical Value > 4.0 Whole blood prothrombin time on 12-26-2021 PT Coag (Bld) [Time] 33.3 s 11.7-14.9 [facility] Work Phone: Laboratory - Coagulationon 0 11-26-2021 INR Coag (Bld) [Relative time] 3.0 {INR} [facility] Work Phone: Comment on above: Critical Value > 4.0 Whole blood prothrombin time on 11-26-2021 PT Coag (Bld) [Time] 33.9 s 11.7-14.9 [facility] Work Phone: Laboratory - Coagulationon 0 11-05-2021 INR Coag (Bld) [Relative time] 2.2 {INR} [facility] Work Phone: Comment on above: Critical Value > 4.0 Whole blood prothrombin time on 11-05-2021 PT Coag (Bld) [Time] 25.4 s 11.7-14.9 [facility] Work Phone: Laboratory - Coagulationon 0 10-01-2021 INR Coag (Bld) [Relative time] 3.0 {INR} [facility] Work Phone: Comment on above: Critical Value > 4.0 Whole blood prothrombin time on 10-01-2021 PT Coag (Bld) [Time] 34.4 s 11.7-14.9 [facility] Work Phone: Laboratory - Coagulationon 0 08-31-2021 INR Coag (Bld) [Relative time] 2.4 {INR} [facility] Work Phone: Comment on above: Critical Value > 4.0 Whole blood prothrombin time on 08-31-2021 PT Coag (Bld) [Time] 27.9 s 11.9-14.4 [facility] Work Phone: Clinical Summary: HMSPatient IDon 06-01-2020 AOP [facility]in[facility] Work Phone: No Panel Information [facility] Vital Signs Date Time Vital Sign Value Performing Clinician Facility 03-11-2025 07:46-0400 Body height 175.[address] Marion Feng MD Work Phone: [facility] 03-11-2025 07:46-0400 Body mass index (BMI) [Ratio] 27.1 kg/m2 Dr. Marion Feng MD Work Phone: [facility] 03-11-2025 07:46-0400 Body temperature 97.5 [degF] Dr. Marion Feng MD Work Phone: [facility] 03-11-2025 07:46-0400 Body weight 83.[address] Marion Feng MD Work Phone: [facility] 03-11-2025 07:46-0400 Diastolic blood pressure 66 mm[Hg] Dr. Marion Feng MD Work Phone: [facility] 03-11-2025 07:46-0400 Heart rate 49 /min Dr. Marion Feng MD Work Phone: [facility] 03-11-2025 07:46-0400 Respiratory rate 18 /min Dr. Marion Feng MD Work Phone: [facility] 03-11-2025 07:46-0400 SaO2% (BldA) [Mass fraction] 95 % Dr. Marion Feng MD Work Phone: [facility] 03-11-2025 07:46-0400 Systolic blood pressure 124 mm[Hg] Dr. Marion Feng MD Work Phone: [facility] 03-05-2025 11:39-0400 Body temperature 97.6 [degF] Dr. Marion Feng MD Work Phone: [facility] 03-05-2025 11:39-0400 Diastolic blood pressure 49 mm[Hg] Dr. Marion Feng MD Work Phone: [facility] 03-05-2025 11:39-0400 Heart rate 72 /min Dr. Marion Feng MD Work Phone: [facility] 03-05-2025 11:39-0400 Respiratory rate 18 /min Dr. Marion Feng MD Work Phone: [facility] 03-05-2025 11:39-0400 SaO2% (BldA) [Mass fraction] 96 % Dr. Marion Feng MD Work Phone: [facility] 03-05-2025 11:39-0400 Systolic blood pressure 103 mm[Hg] Dr. Marion Feng MD Work Phone: [facility] 03-05-2025 11:20-0400 Body height 175.[address] Marion Feng MD Work Phone: [facility] 03-05-2025 11:20-0400 Body weight 81.[address] Marion Feng MD Work Phone: [facility] 03-04-2025 20:00-0400 SaO2% (BldA) [Mass fraction] 95 % Dr. Marion Feng MD Work Phone: [facility] 03-04-2025 19:30-0400 Diastolic blood pressure 55 mm[Hg] Dr. Marion Feng MD Work Phone: [facility] 03-04-2025 19:30-0400 Systolic blood pressure 111 mm[Hg] Dr. Marion Feng MD Work Phone: [facility] 03-04-2025 19:21-0400 Body mass index (BMI) [Ratio] 26.6 kg/m2 Dr. Marion Feng MD Work Phone: [facility] 03-04-2025 19:00-0400 Heart rate 60 /min Dr. Marion Feng MD Work Phone: [facility] 03-04-2025 19:00-0400 Respiratory rate 16 /min Dr. Marion Feng MD Work Phone: [facility] 03-04-2025 18:00-0400 Body temperature 98.9 [degF] Dr. Marion Feng MD Work Phone: [facility] 03-04-2025 14:01-0400 Body height 177.[address] Marion Feng MD Work Phone: [facility] 03-04-2025 14:01-0400 Body mass index (BMI) [Ratio] 26.3 kg/m2 Dr. Marion Feng MD Work Phone: [facility] 03-04-2025 14:01-0400 Body weight 83.[address] Marion Feng MD Work Phone: [facility] 03-04-2025 08:10-0400 Body height 177.[address] Marion Feng MD Work Phone: [facility] 03-04-2025 08:10-0400 Body mass index (BMI) [Ratio] 26.3 kg/m2 Dr. Marion Feng MD Work Phone: [facility] 03-04-2025 08:10-0400 Body temperature 98.3 [degF] Dr. Marion Feng MD Work Phone: [facility] 03-04-2025 08:10-0400 Body weight 83.[address] Marion Feng MD Work Phone: [facility] 03-04-2025 08:10-0400 Diastolic blood pressure 62 mm[Hg] Dr. Marion Feng MD Work Phone: [facility] 03-04-2025 08:10-0400 Heart rate 66 /min Dr. Marion Feng MD Work Phone: [facility] 03-04-2025 08:10-0400 SaO2% (BldA) [Mass fraction] 97 % Dr. Marion Feng MD Work Phone: [facility] 03-04-2025 08:10-0400 Systolic blood pressure 128 mm[Hg] Dr. Marion Feng MD Work Phone: [facility] 01-27-2025 10:09-0400 Body height 175.3 cm Eli Bazzi CNP Work Phone: [facility] 01-27-2025 10:09-0400 Body mass index (BMI) [Ratio] 27.02 kg/m2 Eli Bazzi CNP Work Phone: [employer] 01-27-2025 10:09-0400 Body weight 83.01 kg Eli Manuel APRN - [employer] Work Phone: [employer] 01-27-2025 10:09-0400 Diastolic blood pressure 90 mm[Hg] Eli Bazzi CNP Work Phone: [employer] [facility] 01-27-2025 10:09-0400 Heart rate 48 /min Eli Manuel APRN - [employer] Work Phone: [employer] [facility] 01-27-2025 10:09-0400 Systolic blood pressure 134 mm[Hg] Eli Manuel APRN - [employer] Work Phone: [employer] 01-14-2025 07:35-0400 Body temperature 97.3 [degF] Sarah Luna DO Work Phone: [facility] [employer] 01-14-2025 07:35-0400 Diastolic blood pressure 60 mm[Hg] Sarah Luna DO Work Phone: [employer] 01-14-2025 07:35-0400 Heart rate 57 /min Sarah Luna DO Work Phone: [employer] 01-14-2025 07:35-0400 Respiratory rate 17 /min Sarah Luna DO Work Phone: [facility] [employer] 01-14-2025 07:35-0400 SaO2% (BldA) [Mass fraction] 97 % Sarah Christyer DO Work Phone: [employer] 01-14-2025 07:35-0400 Systolic blood pressure 119 mm[Hg] Sarah Christyer DO Work Phone: [employer] 01-11-2025 05:39-0400 Body mass index (BMI) [Ratio] 28.98 kg/m2 Sarah Christyer DO Work Phone: [employer] 01-11-2025 05:39-0400 Body weight 89 kg Sarah Luna DO Work Phone: [facility] 12-23-2024 10:50-0400 Body weight 83.46 kg Sarah Luna DO Work Phone: [facility] 12-23-2024 10:50-0400 Diastolic blood pressure 70 mm[Hg] Sarah Christyer DO Work Phone: [facility] 12-23-2024 10:50-0400 Heart rate 47 /min Sarah Christyer DO Work Phone: [facility] 12-23-2024 10:50-0400 Systolic blood pressure 130 mm[Hg] Sarah Luna DO Work Phone: [facility] 12-10-2024 07:56-0400 Body height 177.[address] Marion Feng MD Work Phone: [facility] 12-10-2024 07:56-0400 Body mass index (BMI) [Ratio] 27.1 kg/m2 Dr. Marion Feng MD Work Phone: [facility] 12-10-2024 07:56-0400 Body temperature 97.4 [degF] Dr. Marion Feng MD Work Phone: [facility] 12-10-2024 07:56-0400 Body weight 85.[address] Marion Feng MD Work Phone: [facility] 12-10-2024 07:56-0400 Diastolic blood pressure 73 mm[Hg] Dr. Marion Feng MD Work Phone: [facility] 12-10-2024 07:56-0400 Heart rate 45 /min Dr. Marion Feng MD Work Phone: [facility] 12-10-2024 07:56-0400 Respiratory rate 18 /min Dr. Marion Feng MD Work Phone: [facility] 12-10-2024 07:56-0400 SaO2% (BldA) [Mass fraction] 97 % Dr. Marion Feng MD Work Phone: [facility] 12-10-2024 07:56-0400 Systolic blood pressure 120 mm[Hg] Dr. Marion Feng MD Work Phone: [facility] 12-02-2024 07:27-0400 Body mass index (BMI) [Ratio] 26.6 kg/m2 Dr. Marion Feng MD Work Phone: [facility] 12-02-2024 07:27-0400 Body temperature 97.5 [degF] Dr. Marion Feng MD Work Phone: [facility] 12-02-2024 07:27-0400 Body weight 84.[address] Marion Feng MD Work Phone: [facility] 12-02-2024 07:27-0400 Diastolic blood pressure 82 mm[Hg] Dr. Marion Feng MD Work Phone: [facility] 12-02-2024 07:27-0400 Heart rate 52 /min Dr. Marion Feng MD Work Phone: [facility] 12-02-2024 07:27-0400 Respiratory rate 18 /min Dr. Marion Feng MD Work Phone: [facility] 12-02-2024 07:27-0400 SaO2% (BldA) [Mass fraction] 99 % Dr. Marion Feng MD Work Phone: [facility] 12-02-2024 07:27-0400 Systolic blood pressure 144 mm[Hg] Dr. Marion Feng MD Work Phone: [facility] 09-18-2024 03:58-0500 Body mass index (BMI) [Ratio] 29.7 kg/m2 Dr. Marion Feng MD Work Phone: [facility] 07-21-2024 04:18-0500 Body mass index (BMI) [Ratio] 29.7 kg/m2 Dr. Marion Feng MD Work Phone: [facility] 04-20-2024 03:45-0400 Body mass index (BMI) [Ratio] 29.7 kg/m2 Dr. Marion Feng MD Work Phone: [facility] 10-18-2023 22:13-0400 Body mass index (BMI) [Ratio] 29.7 kg/m2 [facility] 09-18-2023 22:32-0500 Body mass index (BMI) [Ratio] 29.7 kg/m2 [facility] 08-20-2023 22:00-0500 Body mass index (BMI) [Ratio] 29.7 kg/m2 Dr. Marion Feng Work Phone: [facility] 06-20-2023 03:31-0500 Body mass index (BMI) [Ratio] 29.7 kg/m2 Dr. Marion Feng Work Phone: [facility] 06-09-2023 08:01-0500 Body height 177.[address] Marion Feng Work Phone: [facility] 06-09-2023 08:01-0500 Body mass index (BMI) [Ratio] 29.5 kg/m2 Dr. Marion Feng Work Phone: [facility] 06-09-2023 08:01-0500 Body temperature 98.1 [degF] Dr. Marion Feng Work Phone: [facility] 06-09-2023 08:01-0500 Body weight 93.[address] Marion Feng Work Phone: [facility] 06-09-2023 08:01-0500 Diastolic blood pressure 73 mm[Hg] Dr. Marion Feng Work Phone: [facility] 06-09-2023 08:01-0500 Heart rate 61 /min Dr. Marion Feng Work Phone: [facility] 06-09-2023 08:01-0500 Respiratory rate 16 /min Dr. Marion Feng Work Phone: [facility] 06-09-2023 08:01-0500 SaO2% (BldA) [Mass fraction] 97 % Dr. Marion Feng Work Phone: [facility] 06-09-2023 08:01-0500 Systolic blood pressure 114 mm[Hg] Dr. Marion Feng Work Phone: [facility] 05-05-2023 07:54-0400 Body height 177.8 cm Aylin Mathew MD Work Phone: [facility] 05-05-2023 07:54-0400 Body weight 90.72 kg Aylin Mathew MD Work Phone: [facility] 05-05-2023 07:54-0400 Diastolic blood pressure 66 mm[Hg] Aylin Mathew MD Work Phone: [facility] 05-05-2023 07:54-0400 Heart rate 52 /min Aylin Mathew MD Work Phone: [facility] 05-05-2023 07:54-0400 SaO2% (BldA) [Mass fraction] 98 % Aylin Mathew MD Work Phone: [facility] 05-05-2023 07:54-0400 Systolic blood pressure 115 mm[Hg] Aylin Mathew MD Work Phone: [facility] 04-20-2023 02:04-0400 Body mass index (BMI) [Ratio] 29.7 kg/m2 Dr. Marion Feng Work Phone: [facility] 04-03-2023 10:02-0400 Body height 177.[address] Marion Feng Work Phone: [facility] 04-03-2023 10:02-0400 Body mass index (BMI) [Ratio] 28.7 kg/m2 Dr. Marion Feng Work Phone: [facility] 04-03-2023 10:02-0400 Body weight 90.[address] Marion Feng Work Phone: [facility] 04-03-2023 10:02-0400 Diastolic blood pressure 70 mm[Hg] Dr. Marion Feng Work Phone: [facility] 04-03-2023 10:02-0400 Heart rate 50 /min Dr. Marion Feng Work Phone: [facility] 04-03-2023 10:02-0400 Respiratory rate 16 /min Dr. Marion Feng Work Phone: [facility] 04-03-2023 10:02-0400 Systolic blood pressure 120 mm[Hg] Dr. Marion Feng Work Phone: [facility] 02-18-2023 00:32-0400 Body mass index (BMI) [Ratio] 29.7 kg/m2 Dr. Marion Feng Work Phone: [facility] 01-27-2023 08:37-0400 Body weight 91.17 kg Nikita Ortiz APRN.BONDERIZER Work Phone: [facility] 01-27-2023 08:37-0400 Diastolic blood pressure 64 mm[Hg] Nikita Ortiz APRN.BONDERIZER Work Phone: [facility] 01-27-2023 08:37-0400 Heart rate 55 /min Nikita Ortiz APRN.BONDERIZER Work Phone: [facility] 01-27-2023 08:37-0400 SaO2% (BldA) [Mass fraction] 96 % Nikita Ortiz APRN.BONDERIZER Work Phone: [facility] 01-27-2023 08:37-0400 Systolic blood pressure 116 mm[Hg] Nikita Ortiz APRN.BONDERIZER Work Phone: [facility] 01-17-2023 21:59-0400 Body mass index (BMI) [Ratio] 29.7 kg/m2 Dr. Marion Feng Work Phone: [facility] 01-16-2023 06:13-0400 Body height 177.[address] Marion Feng Work Phone: [facility] 01-16-2023 06:13-0400 Body mass index (BMI) [Ratio] 29.2 kg/m2 Dr. Marion Feng Work Phone: [facility] 01-16-2023 06:13-0400 Body temperature 98.4 [degF] Dr. Marion Feng Work Phone: [facility] 01-16-2023 06:13-0400 Body weight 92.[address] Marion Feng Work Phone: [facility] 01-16-2023 06:13-0400 Diastolic blood pressure 66 mm[Hg] Dr. Marion Feng Work Phone: [facility] 01-16-2023 06:13-0400 Heart rate 54 /min Dr. Marion Feng Work Phone: [facility] 01-16-2023 06:13-0400 Respiratory rate 18 /min Dr. Marion Feng Work Phone: [facility] 01-16-2023 06:13-0400 SaO2% (BldA) [Mass fraction] 97 % Dr. Marion Feng Work Phone: [facility] 01-16-2023 06:13-0400 Systolic blood pressure 120 mm[Hg] Dr. Marion Feng Work Phone: [facility] 2022 08:45-0400 Body mass index (BMI) [Ratio] 29.7 kg/m2 Dr. Marion Feng Work Phone: [facility] 12-02-2022 08:04-0400 Body height 177.[address] Marion Feng Work Phone: [facility] 12-02-2022 08:04-0400 Body mass index (BMI) [Ratio] 30 kg/m2 Dr. Marion Feng Work Phone: [facility] 12-02-2022 08:04-0400 Body temperature 98.2 [degF] Dr. Marion Feng Work Phone: [facility] 12-02-2022 08:04-0400 Body weight 94.[address] Marion Feng Work Phone: [facility] 12-02-2022 08:04-0400 Diastolic blood pressure 65 mm[Hg] Dr. Marion Feng Work Phone: [facility] 12-02-2022 08:04-0400 Heart rate 51 /min Dr. Marion Feng Work Phone: [facility] 12-02-2022 08:04-0400 Respiratory rate 18 /min Dr. Marion Feng Work Phone: [facility] 12-02-2022 08:04-0400 SaO2% (BldA) [Mass fraction] 96 % Dr. Marion Feng Work Phone: [facility] 12-02-2022 08:04-0400 Systolic blood pressure 120 mm[Hg] Dr. Marion Feng Work Phone: [facility] 10-19-2022 00:11-0400 Body mass index (BMI) [Ratio] 29.7 kg/m2 Dr. Marion Feng Work Phone: [facility] 10-03-2022 09:06-0400 Body height 177.[address] Marion Feng Work Phone: [facility] 10-03-2022 09:06-0400 Body mass index (BMI) [Ratio] 30.7 kg/m2 Dr. Marion Feng Work Phone: [facility] 10-03-2022 09:06-0400 Body weight 97.[address] Marion Feng Work Phone: [facility] 10-03-2022 09:06-0400 Diastolic blood pressure 66 mm[Hg] Dr. Marion Feng Work Phone: [facility] 10-03-2022 09:06-0400 Heart rate 52 /min Dr. Marion Feng Work Phone: [facility] 10-03-2022 09:06-0400 Respiratory rate 18 /min Dr. Marion Feng Work Phone: [facility] 10-03-2022 09:06-0400 SaO2% (BldA) [Mass fraction] 93 % Dr. Marion Feng Work Phone: [facility] 10-03-2022 09:06-0400 Systolic blood pressure 120 mm[Hg] Dr. Marion Feng Work Phone: [facility] 09-17-2022 20:02-0500 Body mass index (BMI) [Ratio] 29.7 kg/m2 Dr. Marion Feng Work Phone: [facility] 08-21-2022 08:11-0500 Body mass index (BMI) [Ratio] 29.7 kg/m2 Dr. Marion Feng Work Phone: [facility] 07-21-2022 02:05-0500 Body mass index (BMI) [Ratio] 29.7 kg/m2 Dr. Marion Feng Work Phone: [facility] 07-17-2022 06:52-0500 Body height 177.[address] Marion Feng Work Phone: [facility] 07-17-2022 06:52-0500 Body mass index (BMI) [Ratio] 31.1 kg/m2 Dr. Marion Feng Work Phone: [facility] 07-17-2022 06:52-0500 Body temperature 95.6 [degF] Dr. Marion Feng Work Phone: [facility] 07-17-2022 06:52-0500 Body weight 98.[address] Marion Feng Work Phone: [facility] 07-17-2022 06:52-0500 Diastolic blood pressure 62 mm[Hg] Dr. Marion Feng Work Phone: [facility] 07-17-2022 06:52-0500 Heart rate 81 /min Dr. Marion Feng Work Phone: [facility] 07-17-2022 06:52-0500 Respiratory rate 18 /min Dr. Marion Feng Work Phone: [facility] 07-17-2022 06:52-0500 SaO2% (BldA) [Mass fraction] 95 % Dr. Marion Feng Work Phone: [facility] 07-17-2022 06:52-0500 Systolic blood pressure 103 mm[Hg] Dr. Marion Feng Work Phone: [facility] 06-28-2022 09:37-0500 Body mass index (BMI) [Ratio] 31.2 kg/m2 Dr. Marion Feng Work Phone: [facility] 06-28-2022 09:37-0500 Body weight 98.[address] Marion Feng Work Phone: [facility] 06-28-2022 09:37-0500 Diastolic blood pressure 84 mm[Hg] Dr. Marion Feng Work Phone: [facility] 06-28-2022 09:37-0500 Heart rate 74 /min Dr. Marion Feng Work Phone: [facility] 06-28-2022 09:37-0500 Respiratory rate 18 /min Dr. Marion Feng Work Phone: [facility] 06-28-2022 09:37-0500 SaO2% (BldA) [Mass fraction] 98 % Dr. Marion Feng Work Phone: [facility] 06-28-2022 09:37-0500 Systolic blood pressure 131 mm[Hg] Dr. Marion Feng Work Phone: [facility] 06-19-2022 23:04-0500 Body mass index (BMI) [Ratio] 29.7 kg/m2 Dr. Marion Feng Work Phone: [facility] 06-12-2022 08:02-0500 Body temperature 98.1 [degF] Dr. Marion Feng Work Phone: [facility] 06-12-2022 08:02-0500 Body weight 99.[address] Marion Feng Work Phone: [facility] 06-12-2022 08:02-0500 Diastolic blood pressure 75 mm[Hg] Dr. Marion Feng Work Phone: [facility] 06-12-2022 08:02-0500 Heart rate 67 /min Dr. Marion Feng Work Phone: [facility] 06-12-2022 08:02-0500 Respiratory rate 16 /min Dr. Marion Feng Work Phone: [facility] 06-12-2022 08:02-0500 SaO2% (BldA) [Mass fraction] 97 % Dr. Marion Feng Work Phone: [facility] 06-12-2022 08:02-0500 Systolic blood pressure 131 mm[Hg] Dr. Marion Feng Work Phone: [facility] 06-04-2022 10:58-0500 Body height 177.[address] Marion Feng Work Phone: [facility] Work Phone: 06-04-2022 10:58-0500 Body weight 95.[address] Marion Feng Work Phone: [facility] 06-03-2022 08:48-0500 Body mass index (BMI) [Ratio] 31.1 kg/m2 Dr. Marion Feng Work Phone: [facility] 05-21-2022 09:50-0400 Body mass index (BMI) [Ratio] 29.7 kg/m2 Dr. Marion Feng Work Phone: [facility] 05-15-2022 14:30-0400 Body height 177.8 cm Aylin Mathew MD Work Phone: [facility] 05-15-2022 14:30-0400 Body weight 95.25 kg Aylin Mathew MD Work Phone: [facility] 05-15-2022 14:30-0400 Diastolic blood pressure 64 mm[Hg] Aylin Mathew MD Work Phone: [facility] 05-15-2022 14:30-0400 Heart rate 60 /min Aylin Mathew MD Work Phone: [facility] 05-15-2022 14:30-0400 Respiratory rate 18 /min Aylin Mathew MD Work Phone: [facility] 05-15-2022 14:30-0400 SaO2% (BldA) [Mass fraction] 96 % Aylin Mathew MD Work Phone: [facility] 05-15-2022 14:30-0400 Systolic blood pressure 108 mm[Hg] Aylin Mathew MD Work Phone: [facility] 04-19-2022 21:21-0400 Body mass index (BMI) [Ratio] 29.7 kg/m2 Dr. Marion Feng Work Phone: [facility] Work Phone: 04-04-2022 11:13-0400 Body height 177.[address] Marion Feng Work Phone: [facility] Work Phone: 04-04-2022 11:13-0400 Body weight 95.[address] Marion Feng Work Phone: [facility] Work Phone: 04-03-2022 07:38-0400 Body mass index (BMI) [Ratio] 30.2 kg/m2 Dr. Marion Feng Work Phone: [facility] Work Phone: 03-29-2022 09:51-0400 Body mass index (BMI) [Ratio] 30.2 kg/m2 Dr. Marion Feng Work Phone: [facility] Work Phone: 03-29-2022 09:51-0400 Body weight 95.[address] Marion Feng Work Phone: [facility] Work Phone: 03-29-2022 09:51-0400 Diastolic blood pressure 69 mm[Hg] Dr. Marion Feng Work Phone: [facility] Work Phone: 03-29-2022 09:51-0400 Heart rate 51 /min Dr. Marion Feng Work Phone: [facility] Work Phone: 03-29-2022 09:51-0400 Respiratory rate 18 /min Dr. Marion Feng Work Phone: [facility] Work Phone: 03-29-2022 09:51-0400 Systolic blood pressure 107 mm[Hg] Dr. Marion Feng Work Phone: [facility] Work Phone: 03-20-2022 22:52-0400 Body mass index (BMI) [Ratio] 29.7 kg/m2 Dr. Marion Feng Work Phone: [facility] Work Phone: 03-08-2022 13:42-0400 Body height 177.[address] Marion Feng Work Phone: [facility] Work Phone: 03-08-2022 13:42-0400 Body mass index (BMI) [Ratio] 30.8 kg/m2 Dr. Marion Feng Work Phone: [facility] Work Phone: 03-08-2022 13:42-0400 Body weight 97.[address] Marion Feng Work Phone: [facility] Work Phone: 03-08-2022 13:42-0400 Diastolic blood pressure 62 mm[Hg] Dr. Marion Feng Work Phone: [facility] Work Phone: 03-08-2022 13:42-0400 Heart rate 82 /min Dr. Marion Feng Work Phone: [facility] Work Phone: 03-08-2022 13:42-0400 Respiratory rate 16 /min Dr. Marion Feng Work Phone: [facility] Work Phone: 03-08-2022 13:42-0400 Systolic blood pressure 111 mm[Hg] Dr. Marion Feng Work Phone: [facility] Work Phone: 01-18-2022 06:55-0400 Body mass index (BMI) [Ratio] 29.7 kg/m2 Dr. Marion Feng Work Phone: [facility] Work Phone: 01-16-2022 05:47-0400 Body height 177.[address] Marion Feng Work Phone: [facility] Work Phone: 01-16-2022 05:47-0400 Body mass index (BMI) [Ratio] 30.8 kg/m2 Dr. Marion Feng Work Phone: [facility] Work Phone: 01-16-2022 05:47-0400 Body temperature 98.2 [degF] Dr. Marion Feng Work Phone: [facility] Work Phone: 01-16-2022 05:47-0400 Body weight 97.[address] Marion Feng Work Phone: [facility] Work Phone: 01-16-2022 05:47-0400 Diastolic blood pressure 87 mm[Hg] Dr. Marion Feng Work Phone: [facility] Work Phone: 01-16-2022 05:47-0400 Heart rate 98 /min Dr. Marion Feng Work Phone: [facility] Work Phone: 01-16-2022 05:47-0400 Respiratory rate 17 /min Dr. Marion Feng Work Phone: [facility] Work Phone: 01-16-2022 05:47-0400 SaO2% (BldA) [Mass fraction] 97 % Dr. Marion Feng Work Phone: [facility] Work Phone: 01-16-2022 05:47-0400 Systolic blood pressure 116 mm[Hg] Dr. Marion Feng Work Phone: [facility] Work Phone: 12-18-2021 20:37-0400 Body mass index (BMI) [Ratio] 29.7 kg/m2 Dr. Marion Feng Work Phone: [facility] Work Phone: 11-28-2021 08:04-0400 Body mass index (BMI) [Ratio] 30.9 kg/m2 Dr. Marion Feng Work Phone: [facility] Work Phone: 11-28-2021 08:04-0400 Body temperature 97.2 [degF] Dr. Marion Feng Work Phone: [facility] Work Phone: 11-28-2021 08:04-0400 Body weight 97.[address] Marion Feng Work Phone: [facility] Work Phone: 11-28-2021 08:04-0400 Diastolic blood pressure 60 mm[Hg] Dr. Marion Feng Work Phone: [facility] Work Phone: 11-28-2021 08:04-0400 Heart rate 51 /min Dr. Marion Feng Work Phone: [facility] Work Phone: 11-28-2021 08:04-0400 Respiratory rate 16 /min Dr. Marion Feng Work Phone: [facility] Work Phone: 11-28-2021 08:04-0400 SaO2% (BldA) [Mass fraction] 99 % Dr. Marion Feng Work Phone: [facility] Work Phone: 11-28-2021 08:04-0400 Systolic blood pressure 110 mm[Hg] Dr. Marion Feng Work Phone: [facility] Work Phone: 11-28-2021 08:04-0400 Body height 177.[address] Marion Feng Work Phone: [facility] Work Phone: 11-28-2021 08:04-0400 Body mass index (BMI) [Ratio] 30.9 kg/m2 Dr. Marion Feng Work Phone: [facility] Work Phone: 11-28-2021 08:04-0400 Body temperature 97.2 [degF] Dr. Marion Feng Work Phone: [facility] Work Phone: 11-28-2021 08:04-0400 Body weight 97.[address] Marion Feng Work Phone: [facility] Work Phone: 11-28-2021 08:04-0400 Diastolic blood pressure 60 mm[Hg] Dr. Marion Feng Work Phone: [facility] Work Phone: 11-28-2021 08:04-0400 Heart rate 51 /min Dr. Marion Feng Work Phone: [facility] Work Phone: 11-28-2021 08:04-0400 Respiratory rate 16 /min Dr. Marion Feng Work Phone: [facility] Work Phone: 11-28-2021 08:04-0400 SaO2% (BldA) [Mass fraction] 99 % Dr. Marion Feng Work Phone: [facility] Work Phone: 11-28-2021 08:04-0400 Systolic blood pressure 110 mm[Hg] Dr. Marion Feng Work Phone: [facility] Work Phone: 11-18-2021 03:03-0400 Body mass index (BMI) [Ratio] 29.7 kg/m2 Dr. Marion Feng Work Phone: [facility] Work Phone: 10-01-2021 10:35-0400 Body mass index (BMI) [Ratio] 31.4 kg/m2 Dr. Marion Feng Work Phone: [facility] Work Phone: 10-01-2021 10:35-0400 Body temperature 98.6 [degF] Dr. Mraion Feng Work Phone: [facility] Work Phone: 10-01-2021 10:35-0400 Body weight 99.[address] Marion Feng Work Phone: [facility] Work Phone: 10-01-2021 10:35-0400 Diastolic blood pressure 73 mm[Hg] Dr. Marion Feng Work Phone: [facility] Work Phone: 10-01-2021 10:35-0400 Heart rate 79 /min Dr. Marion Feng Work Phone: [facility] Work Phone: 10-01-2021 10:35-0400 Respiratory rate 17 /min Dr. Marion Feng Work Phone: [facility] Work Phone: 10-01-2021 10:35-0400 SaO2% (BldA) [Mass fraction] 98 % Dr. Marion Feng Work Phone: [facility] Work Phone: 10-01-2021 10:35-0400 Systolic blood pressure 110 mm[Hg] Dr. Marion Feng Work Phone: [facility] Work Phone: 10-01-2021 10:35-0400 Body height 177.[address] Marion Feng Work Phone: [facility] Work Phone: 10-01-2021 10:35-0400 Body mass index (BMI) [Ratio] 31.4 kg/m2 Dr. Marion Feng Work Phone: [facility] Work Phone: 10-01-2021 10:35-0400 Body temperature 98.6 [degF] Dr. Marion Feng Work Phone: [facility] Work Phone: 10-01-2021 10:35-0400 Body weight 99.[address] Marion Feng Work Phone: [facility] Work Phone: 10-01-2021 10:35-0400 Diastolic blood pressure 73 mm[Hg] Dr. Marion Feng Work Phone: [facility] Work Phone: 10-01-2021 10:35-0400 Heart rate 79 /min Dr. Marion Feng Work Phone: [facility] Work Phone: 10-01-2021 10:35-0400 Respiratory rate 17 /min Dr. Marion Feng Work Phone: [facility] Work Phone: 10-01-2021 10:35-0400 SaO2% (BldA) [Mass fraction] 98 % Dr. Marion Feng Work Phone: [facility] Work Phone: 10-01-2021 10:35-0400 Systolic blood pressure 110 mm[Hg] Dr. Marion Feng Work Phone: [facility] Work Phone: 09-18-2021 00:09-0500 Body mass index (BMI) [Ratio] 29.7 kg/m2 Dr. Marion Feng Work Phone: [facility] Work Phone: 09-17-2021 23:09-0500 Body mass index (BMI) [Ratio] 29.7 kg/m2 Dr. Marion Feng Work Phone: [facility] Work Phone: 09-07-2021 13:25-0500 Body weight 98.[address] Marion Feng Work Phone: [facility] Work Phone: 09-07-2021 13:25-0500 Diastolic blood pressure 61 mm[Hg] Dr. Marion Feng Work Phone: [facility] Work Phone: 09-07-2021 13:25-0500 Heart rate 48 /min Dr. Marion Feng Work Phone: [facility] Work Phone: 09-07-2021 13:25-0500 Respiratory rate 18 /min Dr. Marion Feng Work Phone: [facility] Work Phone: 09-07-2021 13:25-0500 Systolic blood pressure 98 mm[Hg] Dr. Marion Feng Work Phone: [facility] Work Phone: 07-20-2021 23:09-0500 Body mass index (BMI) [Ratio] 29.7 kg/m2 Dr. Marion Feng Work Phone: [facility] Work Phone: 01-16-2021 11:25-0400 Body mass index (BMI) [Ratio] 29.7 kg/m2 Dr. Marion Feng Work Phone: [facility] Work Phone: 08-30-2020 08:55-0500 Body mass index (BMI) [Ratio] 29.8 kg/m2 Dr. Marion Feng Work Phone: [facility] Work Phone: NEGATED: Highlighted [id number] 12:35-0500 BMI (Body Mass Index) 30.52 kg/m2 Keturah Degarmo RT [facility] Work Phone: NEGATED: Highlighted [id number] 12:35-0500 Body weight 90.72 kg Keturah Degarmo RT [facility] Work Phone: NEGATED: Highlighted [id number] 12:35-0500 Body weight 91 kg Keturah Degarmo RT [facility] [place] [facility] Work Phone: NEGATED: Highlighted [id number] 12:35-0500 Height 172.72 cm Keturah Degarmo RT [facility] Work Phone: NEGATED: Highlighted [id number] 12:35-0500 Height 173 cm Keturah Almanzar RT [facility] Work Phone: Encounters Encounter Date Encounter Type Care Provider Facility Start: 05-21-2025 ambulatory Kassy PHILLIP Facility:[facility] Start: 04-28-2025 End: 04-28-2025 ambulatory Marion Feng Facility:[facility] Start: 03-11-2025 End: 03-11-2025 Patient encounter procedure Kylie Motta MAINTENANCE AIDE-C -[facility] Work Phone: Start: 03-11-2025 End: 03-11-[address] Marion Feng MD Work Phone: -[facility] Start: 03-05-2025 Non-patient / Non-visit Dr. Richard Sesay MD -[facility] Work Phone: Start: 03-04-2025 ambulatory Donna Cedeno Facility:[facility] Start: 03-04-2025 End: 03-05-2025 Evaluation and management of inpatient Dr. Donna Cedeno MD -[facility] Work Phone: Start: 03-04-2025 End: 03-04-2025 Patient encounter procedure Renny Mora PA -[facility] Work Phone: Start: 03-04-2025 End: 03-04-[address] 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 Marion Feng MD Work Phone: -Laboratory Start: 01-17-2025 End: 01-17-2025 Discharged Recurring Kassy M Stack PA -Laboratory Work Phone: Start: 01-10-2025 End: 01-14-2025 Evaluation and management of inpatient Sarah Luna Work Phone: [facility] Surgical Progressive Care Unit PCU H6 Comment on above: S/P thoracotomy (Mignon dianne Dx); Lung nodule; Solitary pulmonary nodule Start: 12-30-2024 ambulatory Marion Feng Facility :[facility] Start: 12-29-2024 End: 12-29-2024 ambulatory [facility] Start: 12-29-2024 End: 12-29-2024 Encounter for other preprocedural examination SARAH [facility] Start: 12-24-2024 End: 12-24-2024 Admission to same day surgery center 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 [place] Comment on above: Lung nodule (Primary Dx) Start: 12-24-2024 End: 12-24-2024 ambulatory Dong Adam APRN - [employer] Work Phone: [facility] [place] Start: 12-24-2024 End: 12-24-2024 Telephone encounter Sarah Luna DO Work Phone: [facility] - [place] Comment on above: Surgery Scheduling Start: 12-23-2024 End: 12-23-2024 Office consultation new/estab patient 60 min Sarah Luna DO Work Phone: [facility] [place] Comment on above: Right upper lobe pul monary nodule (Primary Dx); Chronic obstructive pulmonary disease, unspecified COPD type (HCC); Paroxysmal atrial fibrillation (HCC); 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); Warfarin anticoagulation; Former smoker Start: 12-23-2024 End: 12-23-2024 ambulatory [facility] Start: 12-10-2024 End: 12-10-2024 Patient encounter procedure Kylie PEREZ -[facility] Work Phone: Start: 12-10-2024 End: 12-10-2024 ambulatory Marion Feng Facility:[facility] Start: 12-07-2024 End: 12-07-[address] Marion Feng MD Work Phone: [facility] Work Phone: Start: 12-07-2024 End: 12-07-2024 Patient encounter procedure Kylie Motta NP-C -[facility] Start: 12-07-2024 End: 12-07-2024 ambulatory Marion Feng Facility:[facility] Start: 12-02-2024 End: 12-02-2024 Patient encounter procedure Kylie Motta NP-C -[facility] Work Phone: Start: 12-02-2024 End: 12-02-[address] Marion Feng MD Work Phone: [facility] Work Phone: Start: 11-18-2024 ambulatory Hi H Roof MAINTENANCE AIDE Facility :[facility] Start: 11-17-2024 End: 11-17-2024 ambulatory Hi H Roof MAINTENANCE AIDE Facility:[facility] Start: 11-17-2024 End: 11-17-[address] Jose Hylton MD -Laboratory Work Phone: Start: 11-17-2024 End: 11-17-2024 Patient encounter procedure Kylie Motta NP-C -Cat Scan [facility] Work Phone: Start: 11-17-2024 End: 11-17-2024 ambulatory Marion Feng Facility:[facility] Start: 10-19-[address] Jose Hylton MD -Laboratory Work Phone: Start: 10-19-2024 End: 10-19-[address] Marion Feng MD Work Phone: [facility] Work Phone: Start: 10-19-2024 End: 10-19-2024 Patient encounter procedure Kylie Motta NP-C -Pulmonary Services/Neurology Work Phone: Start: 10-19-2024 End: 10-19-2024 ambulatory Marion Feng Facility:[facility] Start: 09-02-2024 End: 09-17-[address] Jose Hylton MD -Laboratory Work Phone: Start: 09-02-2024 End: 09-17-2024 ambulatory Hi Traore Kiki MAINTENANCE AIDE Facility:[facility] Start: 07-15-2024 End: 07-15-[address] Jose Hylton MD -Laboratory Work Phone: Start: 07-15-2024 End: 07-15-2024 ambulatory Hi Roof MAINTENANCE AIDE Facility:[facility] Start: 11-17-2023 End: 11-18-2023 Discharged Recurring [facility]-Laboratory Work Phone: Start: 11-17-2023 End: 11-18-2023 ambulatory [facility] Work Phone: Start: 11-17-2023 End: 11-17-2023 Patient encounter procedure [facility]-Cat Scan, [facility] Work Phone: Start: 10-03-2023 End: 10-18-2023 ambulatory [facility] Work Phone: Start: 10-03-2023 End: 10-18-2023 Discharged Recurring [facility]-Laboratory Work Phone: Start: 08-25-2023 End: 09-18-[address] Marion Feng Work Phone: [facility] Work Phone: Start: 08-25-2023 End: 09-18-[address] Marion Feng Work Phone: [facility]-Laboratory Work Phone: Start: 07-22-2023 End: 07-22-[address] Marion Feng Work Phone: [facility] Work Phone: Start: 07-22-2023 End: 07-22-[address] [facility] Start: 06-09-2023 End: 06-09-[address] Marion Feng Work Phone: [facility] Work Phone: Start: 05-23-2023 End: 06-19-[address] [facility] Start: 05-05-2023 End: 05-05-2023 ambulatory AYLIN MATHEW Facility:[facility] Start: 05-05-2023 End: 05-05-2023 Patient encounter procedure Aylin Mathew MD Work Phone: [facility] Cardiology Erika Comment on above: Persistent atrial fi brillation (HCC) (Primary Dx) Start: 04-03-2023 End: 04-03-[address] Marion Feng Work Phone: [facility] Work Phone: Start: 04-02-2023 End: 04-02-[address] Marion Feng Work Phone: [facility] Work Phone: Start: 04-02-2023 End: 04-02-[address] [facility] Start: 02-06-2023 End: 02-17-[address] [facility] Start: 01-27-2023 End: 01-27-2023 ambulatory NIKITA ORTIZ Facility:[facility] Start: 01-27-2023 End: 01-27-2023 Patient encounter procedure Nikita Ortiz APRNPRETTY Work Phone: [facility] Card[facility] [place] Comment on above: Persistent atrial fi brillation (HCC) (Primary Dx); Status post catheter ablation of atrial fibrillation; Sinus bradycardia; Obesity, Class I, BMI 30-34.9; At risk for stroke Start: 01-16-2023 End: 01-16-[address] Marion Feng Work Phone: [facility] Work Phone: Start: 01-16-2023 End: 01-16-[address] Marion Feng Work Phone: [facility]-Laboratory Work Phone: Start: 01-16-2023 End: 01-16-[address] Marion Feng Work Phone: [facility]-Pulmonary Medicine [facility] Work Phone: Start: 12-02-2022 End: 12-18-[address] Marion Feng Work Phone: [facility] Work Phone: Start: 12-02-2022 End: 12-18-[address] Marion Feng Work Phone: [facility]-Laboratory Start: 12-02-2022 End: 12-02-[address] 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 Start: 11-05-2022 ambulatory AYLIN MATHEW Facility :[facility] Start: 11-05-2022 End: 11-05-2022 Subsequent hospital visit by physician Ekg/Holter/Event Monitor [facility] CARDIAC TESTING Comment on above: Persistent atrial fi brillation (HCC) [I48.19] Start: 10-15-2022 Non-patient / Non-visit Dr. Alanis Feng Work Phone: [facility] Start: 10-14-2022 End: 10-14-[address] Marion Feng Work Phone: [facility] Work Phone: Start: 10-14-2022 End: 10-14-[address] Marion Feng Work Phone: [facility] Start: 10-03-2022 End: 10-03-[address] Marion Feng Work Phone: [facility] Start: 10-03-2022 End: 10-18-[address] Marion Feng Work Phone: [facility] Work Phone: Start: 10-03-2022 End: 10-18-[address] Marion Feng Work Phone: [facility]-Laboratory Start: 10-03-[address] Marion Feng Work Phone: [facility]-Laboratory Start: 09-13-2022 End: 09-13-[address] Marion Feng Work Phone: [facility] Work Phone: Start: 09-13-2022 End: 09-13-[address] Marion Feng Work Phone: [facility]-Laboratory Start: 08-05-2022 End: 08-06-2022 ambulatory AYLIN MATHEW Facility:[facility] Start: 07-30-2022 End: 07-30-[address] Marion Feng Work Phone: [facility]-Laboratory Start: 07-17-2022 End: 07-17-[address] Marion Feng Work Phone: [facility]-Pulmonary Medicine [facility] Start: 07-16-2022 End: 07-16-[address] Marion Feng Work Phone: [facility]-Laboratory Start: 07-08-2022 Telephone encounter Aylin Mathew MD Work Phone: [facility] Cardiology Erika Comment on above: Preparations For Pro cedures Start: 06-28-2022 End: 06-28-[address] 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 Marion Feng Work Phone: [facility] Start: 06-11-2022 End: 06-11-[address] Marion Feng Work Phone: [facility] Start: 06-11-2022 End: 06-19-[address] Marion Feng Work Phone: [facility]-Laboratory Start: 06-04-2022 Non-patient / Non-visit Dr. 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 Marion Feng Work Phone: [facility] Work Phone: Start: 06-03-2022 Non-patient / Non-visit Dr. Alanis Feng Work Phone: [facility] Start: 05-30-[address] Marion Feng Work Phone: [facility]-Laboratory Start: 05-15-2022 End: 05-15-2022 ambulatory AYLIN MATHEW Facility:[facility] Start: 05-15-2022 End: 05-15-2022 Patient encounter procedure Aylin Mathew MD Work Phone: [facility] Cardiology Erika Comment on above: Persistent atrial fi brillation (HCC) (Primary Dx) Start: 05-15-2022 End: 05-15-[address] Marion Feng Work Phone: [facility] Work Phone: Start: 05-15-2022 End: 05-15-[address] Marion Feng Work Phone: [facility]-Laboratory Start: 04-11-2022 End: 04-11-[address] Marion Feng Work Phone: [facility] Work Phone: Start: 04-11-2022 End: 04-11-[address] Marion Feng Work Phone: [facility]-Laboratory Start: 04-11-2022 End: 04-11-[address] Marion Feng Work Phone: [facility] Start: 04-04-2022 Non-patient / Non-visit Dr. Alanis Feng Work Phone: [facility] Start: 04-04-[address] Marion Feng Work Phone: [facility]-Laboratory Start: 04-04-2022 End: 04-04-2022 Admission to same day surgery center Dr. 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 Marion Feng Work Phone: [facility] Work Phone: Start: 03-29-2022 End: 03-29-[address] Marion Feng Work Phone: [facility] Start: 03-15-2022 End: 03-15-[address] Marion Feng Work Phone: [facility] Work Phone: Start: 03-15-2022 End: 03-15-[address] Marion Feng Work Phone: [facility]-Laboratory Start: 03-08-2022 End: 03-08-[address] Marion Feng Work Phone: [facility] Start: 01-18-2022 ambulatory [facility] Start: 01-16-2022 End: 01-16-[address] Marion Feng Work Phone: [facility]-Pulmonary Medicine [facility] Start: 12-26-2021 End: 12-26-[address] Marion Feng Work Phone: [facility]-Laboratory Start: 12-26-[address] Marion Feng Work Phone: [facility]-Laboratory Start: 12-26-2021 End: 12-26-[address] Marion Feng Work Phone: [facility] Start: 11-28-2021 End: 11-28-[address] Marion Feng Work Phone: [facility] Start: 11-26-2021 End: 11-26-[address] Marion Feng Work Phone: [facility]-Laboratory Start: 11-08-2021 End: 01-17-2022 ambulatory KEVIN AYON [facility] Start: 11-05-2021 End: 11-05-[address] Marion Feng Work Phone: [facility]-Laboratory Start: 10-01-2021 Non-patient / Non-visit Dr. Alanis Feng Work Phone: [facility] Start: 10-01-2021 End: 10-01-[address] Marion Feng Work Phone: [facility]-Cardiovascular Services Start: 10-01-2021 End: 10-01-[address] Marion Feng Work Phone: [facility]-Pulmonary Medicine [facility] Start: 09-15-2021 End: 09-15-[address] Marion Feng Work Phone: [facility] Start: 09-07-[address] Caryn Feng Work Phone: [facility] Comment on above: Scheduled for left s ulder rotator cuff repair on October 24, 2021. Will need bridged with lovenox Start: 09-07-2021 End: 09-07-[address] Marion Feng Work Phone: [facility] Start: 08-31-2021 End: 09-17-[address] Marion Feng Work Phone: [facility]-Laboratory, [place] Start: 06-01-2020 End: 06-01-2020 Patient encounter procedure Mitchell Hernandez MD Work Phone: [facility] Work Phone: Procedures Date Procedure Procedure Detail Performing Clinician Start: 03-05-[address] Marion Feng MD Work Phone: Start: 03-04-[address] Marion Feng MD Work Phone: Start: 03-04-2025 X-ray of soft tissue of neck Dr. Marion Feng MD Work Phone: Start: 03-04-2025 CT of soft tissues o f neck with contrast Dr. Marion Feng MD Work Phone: Start: 01-14-2025 Radiologic exam ches t single view Eli Manuel SEALING MACHINE OPERATOR - BONDERIZER Work Phone: Start: 01-14-2025 Basic metabolic pane l calcium total Leona Nu Price SEALING MACHINE OPERATOR - BONDERIZER Work Phone: Start: 01-13-2025 Radiologic exam ches t single view Eli Manuel SEALING MACHINE OPERATOR - BONDERIZER Work Phone: Start: 01-13-2025 Radiologic exam ches t single view Sarah Luna DO Work Phone: Start: 01-13-2025 Basic metabolic pane l calcium total Leona uN Price SEALING MACHINE OPERATOR - BONDERIZER Work Phone: Start: 01-12-2025 Radiologic exam ches t single view Sarah Jeremy DO Work Phone: Start: 01-12-2025 Basic metabolic pane l calcium total Leona Nu Price SEALING MACHINE OPERATOR - BONDERIZER Work Phone: Start: 01-11-2025 Radiologic exam ches t single view Sarah Jeremy DO Work Phone: Start: 01-11-2025 End: 01-11-2025 Basic metabolic panel calcium total Sarah Jeremy DO Work Phone: Start: 01-10-2025 Radiologic exam ches t single view Sarah Jeremy DO Work Phone: Start: 01-10-2025 Level v surg patholo gy gross&microscopic exam Sarah Luna DO Work Phone: Start: 01-10-2025 End: 01-10-2025 Thoracoscopy w/lobectomy single lobe Sarah Luna DO Work Phone: Start: 01-10-2025 Prothrombin time Alexan dra Mare Lobo SEALING MACHINE OPERATOR - BONDERIZER Work Phone: Start: 12-29-2024 Antibody screen SARAH LUNA Comment on above: Performed By: #### L [id number] ####Clay Burner: APOLONIA PADILLA ([phone])[facility] ([facility])[address] [place] [address] Start: 12-07-2024 Positron emission tomography with computed tomography Dr. Marion Feng MD Work Phone: Start: 11-17-[address] Marion Feng MD Work Phone: Start: 11-17-2023 CT of chest Start: 05-05-2023 Ecg routine ecg w/le ast 12 lds w/i&r Aylin Mathew MD Work Phone: Start: 01-27-2023 Ecg routine ecg w/le ast 12 lds w/i&r Nikita Ortiz SEALING MACHINE OPERATOR.BONDERIZER Work Phone: Start: 11-05-2022 Xtrnl ecg & 48 hr recording Aylin Mathew MD Work Phone: Start: 10-14-2022 CT angiography of ch est with contrast Dr. Marion Feng Work Phone: Start: 08-05-2022 Antibody screen BRYAN MATHEW Comment on above: Order Comment: Speci men Type: BLOOD SPECIMEN Ordering Facility: [facility] Address: [address] [place] [id number] Performed By: #### T SCR #### [facility] CLIA [id number] [address] [place] [address] [facility] Start: 05-15-2022 Ecg routine ecg w/le ast [...] End: 06-01-2020 Documentation of current medications Keturah Almanzar RT Plan of Treatment Date Care Activity Detail Author Start: 05-05-2027 Colonoscopy COLONOSCOPY [facility] Start: 05-05-2027 COLORECTAL CANCER SCREENING COLORECTAL CANCER SCREENING [facility] Start: 05-05-2027 Screening for malignant neoplasm of colon [facility] Start: 08-05-2025 DIABETES SCREEN DIABETES SCREEN [facility] Start: 08-05-2025 Diabetes Screening Diabetes Screening [facility] Start: 03-21-2025 Influenza vaccination [facility] Start: 03-05-2025 Patient discharge [facility] Start: 03-04-2025 Application of intermittent pneumatic compression device [facility] Start: 03-04-2025 Following clinical pathway protocol [facility] Start: 03-04-2025 Assessment of risk of venous thromboembolism [facility] Start: 03-04-2025 Elevation of head of bed [facility] Start: 03-04-2025 Insertion of catheter into peripheral vein [facility] Start: 03-04-2025 Providing care according to standard [facility] Start: 03-04-2025 Provision of activity privileges [facility] Start: 03-04-2025 [facility] Start: 03-04-2025 Verification routine [facility] Start: 03-04-2025 Hospital admission, emergency, from emergency room, medical nature [facility] Start: 03-04-2025 Admission procedure [facility] Start: 03-04-2025 [facility] Start: 03-04-2025 Inhalation therapy procedure [facility] Start: 03-04-2025 Patient referral to dietitian [facility] Start: 01-27-2025 End: 01-27-2025 Patient encounter procedure 01/27/2025 10:30 AM EDT Office Visit [facility] Cardiovascular Thoracic Surgery - [place] [address] [place] [phone] Eli Manuel APRN - [place] [address] [address] [facility] Cardiovascular Thoracic Surgery [facility] Start: 01-10-2025 End: 01-10-2025 Admission to same day surgery center 01/10/2025 7:30 AM EDT - 01/10/2025 11:30 AM EDT Surgery [facility] MAIN OR [address] [place] [phone] Sarah Luna DO [address] [place] [id number] ROBOTIC RIGHT UPPER LOBECTOMY [63106 (CPT )] [facility] Comment on above: ROBOTIC RIGHT UPPER LOBECTOMY [01339 (CP T )] Start: 01-10-2025 Subsequent hospital visit by physician 01/10/2025 7:30 AM EDT Hospital Encounter [facility] [address] [place] [address] Sarah Luna DO [address] [place] [id number] [facility] OR Start: 01-10-2025 End: 01-10-2025 Thoracoscopy w/lobectomy single lobe ROBOTIC (XI) LOBECTOMY, LUNG Solitary pulmonary nodule 01/10/2025 7:30 AM EDT [facility] Operating Room Start: 12-29-2024 End: 12-29-2024 Admission to establishment 12/29/2024 2:30 PM EDT Pre-Admission Testing [facility] Pre-Admit Testing [address] [place] [phone] [facility] Pre-Admit Testing Start: 12-10-2024 Patient referral [facility] Work Phone: Start: 11-25-2024 PROSTATE CANCER SCREENING DISCUSSION PROSTATE CANCER SCREENING DISCUSSION [facility] Start: 11-25-2024 Prostate specific antigen measurement Prostate Cancer Screening Discussion [facility] Start: 11-04-2024 Lipid 1996 panel - Serum or Plasma Lipid Screening [facility] Start: 11-04-2024 Lipid panel Lipid Screening [facility] Start: 11-04-2024 LIPID SCREEN LIPID SCREEN [facility] Start: 03-21-2024 COVID-19 Vaccine ( season) COVID-19 Vaccine () [facility] Start: 03-21-2024 Influenza vaccination Influenza Vaccine (Season Ended) [facility] Start: 07-21-2023 Advance Directive Discussion Advance Directive Discussion [facility] Start: 07-21-2023 Behavioral Health Screening Behavioral Health Screening [facility] Start: 03-21-2023 Covid-19 Vaccine ( season) Covid-19 Vaccine ( season) [facility] Start: 03-21-2023 Influenza vaccination [facility] Start: 12-03-2022 End: 2023 NM CARDIAC PERF STRESS/EXERCISE NM CARDIAC PERF STRESS/EXERCISE Radiology Routine Dyspnea, unspecified type Regular wide QRS complex tachycardia Expected: 12/03/2022, Expires: 2023 [facility] Work Phone: Comment on above: Expected: 12/03/2022, Expires: Start: 12-02-2022 Patient referral [facility] Work Phone: Start: 11-25-2022 DIABETES SCREEN DIABETES SCREEN [facility] Start: 07-21-2022 ADVANCE DIRECTIVE DISCUSSION ADVANCE DIRECTIVE DISCUSSION [facility] Start: 07-21-2022 DEPRESSION ASSESSMENT DEPRESSION ASSESSMENT [facility] Start: 03-21-2022 Influenza vaccination INFLUENZA (#1) [facility] Start: 2021 ADVANCE DIRECTIVE DISCUSSION ADVANCE DIRECTIVE DISCUSSION [facility] Start: 07-21-2021 DEPRESSION ASSESSMENT DEPRESSION ASSESSMENT [facility] Start: 07-13-2021 COVID-19 VACCINE (4 - Booster for Pfizer series) COVID-19 VACCINE (4 - Booster for Pfizer series) [facility] Start: 07-13-2021 COVID-19 VACCINE (4 - Pfizer series) COVID-19 VACCINE (4 - Pfizer series) [facility] Start: 08-16-2020 DTaP/Tdap/Td Vaccines (2 - Td or Tdap) DTaP/Tdap/Td Vaccines (2 - Td or Tdap) [facility] Start: 08-16-2020 Urine microalbumin profile [facility] Start: 06-01-2020 End: 06-01-2020 Appointment [facility] Work Phone: Start: 2016 RSV Immunization for Adults (1 - Risk 60-74 years 1-dose series) RSV Immunization for Adults (1 - Risk 60-74 years 1-dose series) [facility] Start: 2016 RSV Vaccine (1 - 1-dose 60+ series) RSV Vaccine (1 - 1-dose 60+ series) [facility] Start: 2006 Influenza vaccination LUNG CANCER SCREENING [facility] Start: 2006 Screening for malignant neoplasm of lung Lung Cancer Screening [facility] Start: 2006 SHINGRIX VACCINE (1 of 2) SHINGRIX VACCINE (1 of 2) [facility] Start: 2006 Zoster Vaccines (1 of 2) Zoster Vaccines (1 of 2) [facility] Start: 2001 COLOGUARD (FIT-DNA) COLOGUARD (FIT-DNA) [facility] Start: [address] COLONOGRAPHY [facility] Start: 2001 FECAL OCCULT BLOOD FECAL OCCULT BLOOD [facility] Start: 2001 Screening for malignant neoplasm of colon [facility] Start: 2001 SIGMOIDOSCOPY SIGMOIDOSCOPY [facility] Start: 12-20-1975 Pneumococcal Vaccine: 50+ Years (1 of 2 - PCV) Pneumococcal Vaccine: 50+ Years (1 of 2 - PCV) [facility] Start: 1974 Diabetes mellitus screening Diabetes Screening [facility] Start: 1974 Hepatitis C screening Hepatitis C Screening [facility] Start: 1974 HIV SCREENING HIV SCREENING [facility] Start: 1968 Depression Screening Depression Screening [facility] Start: 1962 Pneumococcal Vaccine: 65+ (1 - PCV) Pneumococcal Vaccine: 65+ (1 - PCV) [facility] Start: 1962 Pneumococcal Vaccine: 65+ (1 of 2 - PCV) Pneumococcal Vaccine: 65+ (1 of 2 - PCV) [facility] Start: 1962 PNEUMOCOCCAL: 65+ (1 - PCV) PNEUMOCOCCAL: 65+ (1 - PCV) [facility] Start: 06-20-1957 COVID-19 VACCINE (#1) COVID-19 VACCINE (#1) [facility] Start: 1956 ABDOMINAL AORTIC ANEURYSM SCREENING ABDOMINAL AORTIC ANEURYSM SCREENING [facility] [facility] 1955 Abdominal aortic aneurysm screening Abdominal Aortic Aneurysm Screening [facility] Start: 1955 Lipid panel Lipid Panel [facility] Start: 1955 Medicare Annual Wellness (AWV) Medicare Annual Wellness (AWV) [facility] Start: 1955 Screening for malignant neoplasm of colon [facility] Blood chemistry [facility] Work Phone: Cardioversion [facility] Work Phone: CBC W Auto Different ial panel - Blood [facility] Work Phone: CBC W Auto Different ial panel - Blood [facility] CT Chest [facility] CT Chest [facility] Lipid 1996 panel - S cuauhtemoc or Plasma [facility] Work Phone: Lipid 1995 panel - S cuauhtemoc or Plasma [facility] Lipid 1995 panel - S cuauhtemoc or Plasma [facility] Patient Education \cps-sql1\CPS_ PtEducati on\[facility]_FALL_PREVENTION. pdf [facility] Work Phone: Patient referral [facility] Work Phone: Positron emission tomography with computed tomography [facility] Prostate specific antigen measurement [facility] Work Phone: Prostate specific antigen measurement [facility] Thyroid stimulating hormone measurement [facility] Work Phone: Tobacco use cessatio n education [facility] Vitamin D, 25-hydrox y measurement [facility] Work Phone: [facility] [place] EP LAB [facility] Immunizations Immunization Date Immunization Notes Care Provider [facility] 05-18-2021 Covid (Pfizer) Dr. Marion gonzalez Work Phone: [facility] 09-11-2020 Covid (Pfizer) Dr. Marion gonzalez Work Phone: [facility] 08-17-2020 Covid (Pfizer) Dr. Marion gonzalez Work Phone: [facility] 06-17-2018 influenza virus vaccine, unspecified formulation Aylin Mathew MD Work Phone: [facility] 08-16-2010 tetanus toxoid, redu shelley diphtheria toxoid, and acellular pertussis vaccine, adsorbed Aylin Mathew MD Work Phone: [facility] Work Phone: Payers Date Payer Category Payer Commercial Managed C are - HMO [employer] [id number] 2024 Private Health Insurance [id number] 2024 Self-pay [id number] 2024 Unknown [id number] 2021 Medicare [id number] 2021 Medicare [id number] 2017 Private Health Insurance [id number] 2017 Private Health Insurance [id number] 2006 Unknown [id number] 1956 Unknown [id number] .[id number] .2.651 1956 Unknown [id number] .840.1.961224.3.579 .2.651 Unknown [facility] PACKAGE PLAN [id number] Unknown [id number] Unknown [id number] .[id number] .2.462 Unknown [id number] 2.840.1.149247.3.579 .2.462 Unknown [id number] 2.16.840.1.287686.3.579 .2.462 Unknown [id number] 2.16.840.1.146247.3.579 .2.462 Unknown [id number] 2.16.840.1.038292.3.579 .2.462 Unknown [id number] 2.16.840.1.335331.3.579 .2.462 Unknown [id number] 2.16.840.1.116571.3.579 .2.462 Unknown [id number] 2.16.840.1.941731.3.579 .2.462 Unknown [id number] 2.16.840.1.237385.3.579 .2.462 Unknown [id number] 2.16.840.1.811077.3.579 .2.462 Unknown [id number] 2.16.840.1.831033.3.579 .2.462 Unknown [id number] 2.16.840.1.327927.3.579 .2.462 Unknown [id number] 2.16.840.1.212089.3.579 .2.462 Unknown [id number] 2.16.840.1.577756.3.579 .2.462 Unknown [id number] 2.16.840.1.727266.3.579 .2.462 Unknown [id number] 2.16.840.1.268978.3.579 .2.462 Unknown [id number] 2.16.840.1.151005.3.579 .2.462 Unknown [id number] 2.16.840.1.592255.3.579 .2.462 Unknown [id number] 2.16.840.1.164929.3.579 .2.462 Social History Date Type Detail Facility Start: 10-01-2021 End: 06-09-2023 Assertion Unknown if ever smoked [facility] Work Phone: Start: 04-25-2020 None [facility] Start: 04-25-2020 Spouse/ Signif icant Other [facility] Start: 1955 Sex Assigned At Male [facility] Start: 02-18-2020 End: 11-05-2022 Tobacco smoking status VAIS Smokes tobacco daily [facility] Work Phone: Start: 07-21-1974 End: 2024 History of tobacco use Cigarette Smoker [facility] Work Phone: Start: 02-18-2020 End: 01-10-2025 Cigarettes smoked current (pack per day) - Reported 1 [facility] Start: 02-18-2020 End: 12-23-2024 Tobacco use and exposure Smokeless tobacco non-user [facility] Work Phone: Start: 05-15-2022 End: 11-05-2022 Alcohol intake Current non-drinker of alcohol (finding) [facility] Start: 1955 Sex Assigned At Not on file [facility] Start: 05-05-2022 End: 05-15-2022 Exposure to SARS-CoV-2 (event) Not sure [facility] Start: 01-27-2023 End: 01-10-2025 Tobacco use panel [facility] National Score (1-100), lower number is lower risk 30 [facility] Start: 04-19-2024 Tobacco smoking stat us VAIS Current Heavy tobacco smoker [facility] Start: 05-30-2022 End: 10-23-2024 Sex Male (finding) [facility] Start: 12-23-2024 End: 03-05-2025 Tobacco smoking status NHIS Ex-smoker [facility] Start: 07-21-1974 End: 2024 History of tobacco use Current smoker [facility] Start: 12-23-2024 End: 01-11-2025 Alcoholic beverage intake Current drinker of alcohol (finding) [facility] Start: 12-15-2024 Gender identity Identifies as male gender (finding) [facility] Within the last year , have you been afraid of your partner or ex-partner? No [facility] How often to you hav e a drink containing alcohol? Never [facility] Start: 12-29-2024 Alcohol Comment or less than weekly [facility] Goals Date Patient Goal Desired Activity /State Functional Status Date Assessment Result Facility 03-05-2025 Functional status Ambulates [facility] Work Phone: [facility] Mental Status Date Assessment Result Facility 03-05-2025 Cognitive function Voice/Name [facility] Work Phone: Clinical Notes 06-01-2013 to 03-05-2025 Note Date & Type Note Facility 03-05-2025 Discharge summary [facility] 03-05-2025 Discharge summary [facility] 03-05-2025 Note [facility] Medical Records Department [address] [place] [address] Discharge Summary 03/05/25 1135 MR#: [id number] Acct: [id number] Name: RICH JAMES I Rep #: [id number] : 1955 69 From: Bryan Sesay MD PCP: Dr. Marion Feng MD Status:ADM IN [id number] Providers Date of Admission: 03/04/25 Primary Care Physician: Dr. Marion Feng MD Reason For Visit: FACIAL AND NECK EDEMA Diagnosis Discharge Diagnosis (1) Dysphagia: Status: Acute Code(s): R13.10 - Dysphagia, unspecified Plan 69-year-old deyanira was admitted with 3 days of sore throat and cough, chills and sweats along with bodyaches, managed with Tylenol but has dysphagia. Not able to keep the fluid down. Patient did not tolerate food. Denies chest pain or shortness of breath. No acute concern for recent esophageal food impaction. Negative stress test in the urgent care # Soft tissue swelling of oropharynx, hypopharynx, epiglottic folds, cervical dysphagia probably due to viral syndrome - No sign of fluid collection or abscess and no airway compromise - Patient given IV fluids, Benadryl, Solu-Medrol and Pepcid 03/05: It seems patient had viral syndrome with mild fever chills, sore throat and bodyaches. In the morning, he can swallow liquid and he swallowed his pills. Diet advanced from full diet to transitional diet. He tolerated well. He got the treatment as mentioned above. He has Chloraseptic lozenges and spray given by urgent care. Continued #Hx COPD -Continue home inhalers -Incentive spirometer #Paroxysmal Atrial Fibrillation -Rate control: On oral metoprolol, can consider IV metoprolol if patient will have prolonged n.p.o. -Anticoagulation: Coumadin, resume when patient cleared to tolerate p.o., INR presently therapeutic 03/05: INR is therapeutic #Depression/anxiety -Continue home medications when safe to do so Patient was admitted as inpatient for dysphagia with inflammation of the oropharynx/hypopharynx and epiglottic folds but improved with the IV steroid much sooner than expected at the time of admission therefore discharged. Medications at Discharge Home Medications fluticasone propionate 50 mcg/actuation nasal spray,suspension (Flonase Allergy Relief) 1 spray intranasal DAILY Allergies 02/29/20 [id number] C-Mn 500 mg-400 mg capsule (Glucosamine Chondroitin Maximum Strength) 2 cap PO DAILY Joints releif 02/29/20 famotidine 20 mg tablet 20 mg PO DAILY GERD #90 tabs 11/28/21 loratadine 10 mg tablet (Claritin) 10 mg PO DAILY Allergies 06/12/22 simvastatin 20 mg tablet 20 mg PO QHS Cholesterol #90 tabs 06/29/24 budesonide 160 mcg-glycopyr 9 mcg-formot 4.8 mcg/actuation HFA inhaler (Breztri Aerosphere) 2 inh inhalation BID #3 ea 12/02/24 metoprolol succinate 25 mg tablet,extended release 24 hr 25 mg PO DAILY BP and Heart rate control #90 tabs 12/23/24 benzocaine 15 mg-menthol 10 mg lozenges (Chloraseptic Max) 1 winnie mucous membrane .4 times daily PRN sore throat #15 ea 03/04/25 warfarin 5 mg tablet See Rx Instructions PO .COMPLEX Blood thinner 03/04/25 Hospital Course Summary of Care Provided Hospital Course: Laboratory Results 03/04/25 14:56: WBC 9.2, RBC 4.60, Hgb 14.6, Hct 42.4, MCV 92.2, MCH 31.7, MCHC 34.4, RDW Std Deviation 48.4 H, RDW Coeff of Shailesh 14.3, Plt Count 203, MPV 9.8, Immature Gran % (Auto) 0.200, Neut % (Auto) 72.9 H, Lymph % (Auto) 15.3 L, Jenkins % (Auto) 10.6 H, Eos % (Auto) 0.5, Baso % (Auto) 0.5, Absolute Neuts (auto) 6.7, Absolute Lymphs (auto) 1.40, Nucleated RBC % 0, PT 24.8 H, INR 2.2, Sodium 140, Potassium 3.7, Chloride 104, Carbon Dioxide 22.3, Anion Gap 14, BUN 14, Creatinine 1.05, Estim Creat Clear Calc 69.52, Est GFR (MDRD) Non-Af 77, BUN/Creatinine Ratio 13.4, Glucose 97, Calcium 9.1 03/05/25 06:58: WBC 8.0, RBC 4.12 L, Hgb 13.0, Hct 37.4 L, MCV 90.8, MCH 31.6, MCHC 34.8, RDW Std Deviation 46.9 H, RDW Coeff of Shailesh 14.1, Plt Count 179, MPV 9.7, Immature Gran % (Auto) 0.200, Neut % (Auto) 88.6 H, Lymph % (Auto) 8.1 L, Jenkins % (Auto) 3.0, Eos % (Auto) 0.0, Baso % (Auto) 0.1, Absolute Neuts (auto) 7.1, Absolute Lymphs (auto) 0.65 L, Nucleated RBC % 0, PT 23.9 H, INR 2.1, Sodium 141, Potassium 3.9, Chloride 109 H, Carbon Dioxide 20.4 L, Anion Gap 12, BUN 15, Creatinine 0.82, Estim Creat Clear Calc 86.22, Est GFR (MDRD) Non-Af 96, BUN/Creatinine Ratio 18.7, Glucose 154 H, Calcium 8.2 Physical Exam Narrative Seen and examined. Denies sore throat. Can swallow his clear liquid diet and swallow pills. Physical exam: General: Alert, Oriented x3, Cooperative HEENT: Atraumatic, PERRLA, EOMI, Normocephalic. Oral: No Gingival or Mucosal Lesions/ Ulcerations. Erythema over posterior pharynx has resolved. No mass/ulcer noticed over floor of mouth, lateral or posterior pharyngeal wall. Base of tongue was visualized. Neck: Supple (more content not included)... [facility] 03-05-2025 Discharge summary Note Date/Time March 05, 2025 6:58am [facility] Medical Records Department [address] [place] [address] Emergency Department Summary 03/04/25 MR#: [id number] Acct: [id number] Name: RICH JAMES I Rep #:[id number] : 1955 69 From: Jennifer PHILLIP PCP: Dr. Marion Feng MD Status:ADM IN Location: [place] [address]- 1 HPI <KENJI Smith - Last Filed: 03/04/25 16:33> History of Present Illness Chief Complaint: Sore Throat Narrative Narrative: 69-year-old male with PMH of HLD, COPD, A-fib on Coumadin states he has had 3 days of a sore throat and cough. He was managing it with Tylenol but today he states he could not keep down his morning medications. He states as soon as thepills hit his throat they came back up. He could not keep down fluids. He has not tried food. He denies chest pain or shortness of breath. He denies concernfor recent esophageal food impaction. Short he was urgent care and had a negative strep test and was sent here for evaluation. 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) New onset atrial fibrillation (02/18/20) Home Medications ?Medication ?Instructions ?Recorded ?Last Taken ?Type fluticasone propionate 50 1 spray intranasal DAILY All ergies 02/29/20 Unknown History mcg/actuation nasal spray,suspension (Flonase Allergy Relief) [id number] C-Mn 500 2 cap PO DAILY Join ts releif 02/29/20 03/03/25 History mg-400 mg capsule (Glucosamine Chondroitin Maximum Strength) famotidine 20 mg tablet 20 mg PO DAILY GERD #90 tabs 11/28/21 03/03/25 Rx loratadine 10 mg tablet (Claritin) 10 mg PO DAILY Rico rgies 06/12/22 03/03/25 History simvastatin 20 mg tablet 20 mg PO QHS Cholesterol #90 tabs 06/29/24 03/03/25 Rx budesonide 160 mcg-glycopyr 9 2 inh inhalation BID #3 ea 12/02/24 03/03/25 Rx mcg-formot 4.8 mcg/actuation HFA inhaler (Breztri Aerosphere) metoprolol succinate 25 mg 25 mg PO DAILY BP and Heart rate 12/23/24 03/03/25 Rx tablet,extended release 24 hr control #90 tabs benzocaine 15 mg-menthol 10 mg 1 winnie mucous membrane . 4 times 03/04/25 03/04/25 Rx lozenges (Chloraseptic Max) daily PRN sore throat #15 ea warfarin 5 mg tablet See Rx Instructions PO .COMP CATALINA 03/04/25 03/03/25 History Blood thinner Allergy/AdvReac Type Severity Reaction Status Date / Time No Known Allergies Allergy Verified 03/04/25 21:05 Family History Father Diabetes Surgical History S/P ablation of atrial fibrillation History of shoulder surgery History of repair of right rotator cuff History of carpal tunnel release History of total hip arthroplasty Social History Smoking Status: Former smoker alcohol intake: current alcohol intake frequency: a few times a month Alcohol type: beer and hard liquor substance use type: does not use caffeine: Yes Type: coffee Number of servings: 10 and tea Number of servings: 2 ROS <KENJI Smith - Last Filed: 03/04/25 16:33> ROS ED ROS Narrative Constitutional: Negative for fever, chills, malaise. ENT: Positive for sore throat. CVS: Negative for chest pain. Respiratory: Negative for shortness of breath. GI: Negative for vomiting. EXAM <KENJI Smith - Last Filed: 03/04/25 16:33> Physical Exam Narrative Exam Narrative: CONST: Patient sitting in no acute distress. EYES: Normal inspection. ENT: Pharyngeal erythema without tonsillar swelling or exudate, midline uvula, no trismus, no elevation, no drooling or stridor. NECK: Normal inspection. RESP: No respiratory distress, CTAB. CVS: Regular rate and rhythm, no murmur, no gallop. SKIN: Color normal, no rash, warm, dry, intact. EXTREMITIES: Normal appearance, no pedal edema. NEURO: Alert and answering questions appropriately. PSYCH: Normal affect. Const Vital Signs: 03/04/25 14:01 03/04/25 14:29 03/04/25 14:56 Temperature 98.9 F 98.9 F Temperature Source Temporal Oral Pulse Rate 69 92 75 Respiratory Rate 16 22 H 14 Blood Pressure 129/67 H 133/56 H Blood Pressure Mean 87 81 Pulse Ox 97 99 98 Oxygen Delivery Method Room Air Room Air Room Air 03/04/25 14:57 03/04/25 15:04 03/04/25 15:17 Temperature 98 F Temperature Source Oral Pulse Rate 63 70 Respiratory Rate 24 H 16 Blood Pressure 133/56 H 133/56 H Blood Pressure Mean 81 81 Pulse Ox 100 100 100 Oxygen Delivery Method Room Air Room Air 03/04/25 15:44 03/04/25 15:45 03/04/25 15:47 Temperature Temperature Source Pulse Rate Respiratory Rate Blood Pressure 127/53 H 122/50 H Blood Pressure Mean 76 73 Pulse Ox 98 Oxygen Delivery Method 03/04/25 16:00 03/04/25 16:00 03/04/25 16:16 Temperature 98.6 F Temperature Source Oral Pulse Rate 55 L Respiratory Rate 16 Blood Pressure 139/59 H Blood Pressure Mean 85 Pulse Ox 100 100 100 Oxygen Delivery Method Room Air 03/04/25 16:21 03/04/25 16:30 03/04/25 16:31 Temperature Temperature Source Pulse Rate 61 Respiratory Rate 16 Blood Pressure 122/50 H 139/59 H Blood Pressure Mean 74 78 Pulse Ox 100 100 Oxygen Delivery Method Room Air 03/04/25 16:42 03/04/25 16:45 03/04/25 17:00 Temperature 98.9 F 98.9 F Temperature Source Oral Pulse Rate 55 L 52 L Respiratory Rate 16 20 H Blood Pressure 139/59 H 128/53 H Blood Pressure Mean 85 78 Pulse Ox 100 100 100 Oxygen Delivery Method Room Air 03/04/25 17:05 03/04/25 17:14 03/04/25 17:15 Temperature Temperature Source Pulse Rate Respiratory Rate Blood Pressure 128/53 H 135/56 H Blood Pressure Mean 74 75 Pulse Ox 76 Oxygen Delivery Method 03/04/25 17:16 03/04/25 17:35 03/04/25 17:45 Temperature Temperature Source Pulse Rate Respiratory Rate Blood Pressure Blood Pressure Mean Pulse Ox 100 98 97 Oxygen Delivery Method 03/04/25 18:00 03/04/25 18:00 Temperature 98.9 F Temperature Source Oral Pulse Rate 66 Respiratory Rate 14 Blood Pressure 125/42 H 125/42 H Blood Pressure Mean 69 70 Pulse Ox 99 Oxygen Delivery Method Room Air <Dr. Ashok Olvera MD - Last Filed: 03/05/25 06:58> Physical Exam Const Vital Signs: 03/04/25 14:01 03/04/25 14:29 03/04/25 14:56 Temperature 98.9 F 98.9 F Temperature Source Temporal Oral Pulse Rate 69 92 75 Respiratory Rate 16 22 H 14 Blood Pressure 129/67 H 133/56 H Blood Pressure Mean 87 81 Pulse Ox 97 99 98 Oxygen Delivery Method Room Air Room Air Room Air 03/04/25 14:57 03/04/25 15:04 03/04/25 15:17 Temperature 98 F Temperature Source Oral Pulse Rate 63 70 Respiratory Rate 24 H 16 Blood Pressure 133/56 H 133/56 H Blood Pressure Mean 81 81 Pulse Ox 100 100 100 Oxygen Delivery Method Room Air Room Air 03/04/25 15:44 03/04/25 15:45 03/04/25 15:47 Temperature Temperature Source Pulse Rate Respiratory Rate Blood Pressure 127/53 H 122/50 H Blood Pressure Mean 76 73 Pulse Ox 98 Oxygen Delivery Method 03/04/25 16:00 03/04/25 16:00 03/04/25 16:16 Temperature 98.6 F Temperature Source Oral Pulse Rate 55 L Respiratory Rate 16 Blood Pressure 139/59 H Blood Pressure Mean 85 Pulse Ox 100 100 100 Oxygen Delivery Method Room Air 03/04/25 16:21 03/04/25 16:30 03/04/25 16:31 Temperature Temperature Source Pulse Rate 61 Respiratory Rate 16 Blood Pressure 122/50 H 139/59 H Blood Pressure Mean 74 78 Pulse Ox 100 100 Oxygen Delivery Method Room Air 03/04/25 16:42 03/04/25 16:45 03/04/25 17:00 Temperature 98.9 F 98.9 F Temperature Source Oral Pulse Rate 55 L 52 L Respiratory Rate 16 20 H Blood Pressure 139/59 H 128/53 H Blood Pressure Mean 85 78 Pulse Ox 100 100 100 Oxygen Delivery Method Room Air 03/04/25 17:05 03/04/25 17:14 03/04/25 17:15 Temperature Temperature Source Pulse Rate Respiratory Rate Blood Pressure 128/53 H 135/56 H Blood Pressure Mean 74 75 Pulse Ox 76 Oxygen Delivery Method 03/04/25 17:16 03/04/25 17:35 03/04/25 17:45 Temperature Temperature Source Pulse Rate Respiratory Rate Blood Pressure Blood Pressure Mean Pulse Ox 100 98 97 Oxygen Delivery Method 03/04/25 18:00 03/04/25 18:00 Temperature 98.9 F Temperature Source Oral Pulse Rate 66 Respiratory Rate 14 Blood Pressure 125/42 H 125/42 H Blood Pressure Mean 69 70 Pulse Ox 99 Oxygen Delivery Method Room Air [facility] <KENJI Smith - Last Filed: 03/04/25 16:33> [facility] Narrative Medical decision making narrative: 69-year-old male presenting with inability to swallow his secretions or pills this morning. Some sore throat over the last few days. He is awake alert no distress. Vital stable. He is speaking in full sentences without stridor or wheezing. His uvula looks slightly enlarged and secretions are slowly pooling inthe back of his throat and he occasionally spitting them out. There is no tonsillar swelling or exudate or signs of peritonsillar abscess. Lungs are clear. He has no rash or other signs of allergic reaction. CT soft tissue of the neck shows edema of the soft tissues of the oropharynx, hypopharynx and epiglottic folds without signs of fluid collection or abscess. There is no airway compromise. The radiologist called and states is nonspecific but it almost looks like an angioedema reaction. I informed the patient I am he deniesany new foods or medication. He is not on ABI inhibitors. 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 He was treated as an allergic reaction with IV fluids, Benadryl, Solu-Medrol, Pepcid. At this time he is stable and 100% on room air so I did not give epinephrine. He will require observation. I discussed the case with the hospitalist. I have personally performed a face to face assessment of the patient and have reviewed the CARMELITA Note. I performed a substantive portion of the visit including all aspects of the following. My rose findings include: History is remarkable for hoarse voice, throat pain and this morning unable to swallow his pills. 7 difficult swallowing secretions. He denies fever, chills night sweats. He denies upper respiratory symptoms. He denies skin lesions. He is not on an ABI inhibitor or ARB. Exam is remarkable for slightly hoarse voice. Uvula is swollen. He has increased secretions pooling in the back of his throat. Question of stridor with auscultation of the neck. Trachea is midline. No pain with movement of the trachea. There is no cervical lymphadenopathy. There is no subcu mental orsubmandibular lymphadenopathy appreciated. There is no change in the color of her skin i.e. which is visible since he has a morgan. There is no firmness or induration noted. There is no firmness or elevation of the floor of the mouth. Medical Decision Making with him having abnormal oscillatory sounds of his neck troubles swallowing swollen uvula will obtain CT to evaluate for infection i.e. epiglottitis, lingular tonsillitis, retropharyngeal abscess. Other additions or changes: [None] History & Record Review Discussion w/independent historian: Patient and Family Lab Data Labs: Laboratory Results - last 24 hr 03/04/25 14:56 WBC 9.2 RBC 4.60 Hgb 14.6 Hct 42.4 MCV 92.2 MCH 31.7 MCHC 34.4 RDW Std Deviation 48.4 H RDW Coeff of Shailesh 14.3 Plt Count 203 MPV 9.8 Immature Gran % (Auto) 0.200 Neut % (Auto) 72.9 H Lymph % (Auto) 15.3 L Jenkins % (Auto) 10.6 H Eos % (Auto) 0.5 Baso % (Auto) 0.5 Absolute Neuts (auto) 6.7 Absolute Lymphs (auto) 1.40 Nucleated RBC % 0 PT 24.8 H INR 2.2 Sodium 140 Potassium 3.7 Chloride 104 Carbon Dioxide 22.3 Anion Gap 14 BUN 14 Creatinine 1.05 Estim Creat Clear Calc 69.52 Est GFR (MDRD) Non-Af 77 BUN/Creatinine Ratio 13.4 Glucose 97 Calcium 9.1 Radiography Diagnostic Testing: Clinical Impression(s) from Imaging Studies Soft Tissue Neck CT 03/04/25 14:39 IMPRESSION: 1. No abscess or collection. No lymphadenopathy. 2. Edema of the soft tissues of the oropharynx, hypopharynx extending down to false cords, aryepiglottic folds and arytenoids. Airway is not compromised at this time. Consider infection, inflammation, angioedema. 3. Left vocal cord paralysis. The findings and impression of this report were called directly to Jennifer Goel at 4 p.m. Eastern standard time. Reading Location: [id number] Soft Tissue Neck X-Ray 03/04/25 14:40 IMPRESSION: Degenerative changes cervical spine. Unremarkable appearance of the soft tissues. Reading Location: [id number] <Dr. Ashok Olvera MD - Last Filed: 03/05/25 06:58> MDM MDM Narrative Medical decision making narrative: I have personally performed a face to face assessment of the patient and have reviewed the CARMELITA Note. I performed a substantive portion of the visit including all aspects of the following. My rose findings include: History is remarkable for hoarse voice, throat pain and this morning unable to swallow his pills. 7 difficult swallowing secretions. He denies fever, chills night sweats. He denies upper respiratory symptoms. He denies skin lesions. He is not on an ABI inhibitor or ARB. Exam is remarkable for slightly hoarse voice. Uvula is swollen. He has increased secretions pooling in the back of his throat. Question of stridor with auscultation of the neck. Trachea is midline. No pain with movement of the trachea. There is no cervical lymphadenopathy. There is no subcu mental or submandibular lymphadenopathy appreciated. There is no change in the color of her skin i.e. which is visible since he has a morgan. There is no firmness or induration noted. There is no firmness or elevation of the floor of the mouth. Medical Decision Making with him having abnormal oscillatory sounds of his neck troubles swallowing swollen uvula will obtain CT to evaluate for infection i.e. epiglottitis, lingular tonsillitis, retropharyngeal abscess. Other additions or changes: [None] Lab Data Attestation: I reviewed the patient's lab results. Lab results narrative: White count is unremarkable. Electrolyte panel is unremarkable. Labs: Laboratory Results - last 24 hr 03/04/25 14:56 WBC 9.2 RBC 4.60 Hgb 14.6 Hct 42.4 MCV 92.2 MCH 31.7 MCHC 34.4 RDW Std Deviation 48.4 H RDW Coeff of Shailesh 14.3 Plt Count 203 MPV 9.8 Immature Gran % (Auto) 0.200 Neut % (Auto) 72.9 H Lymph % (Auto) 15.3 L Jenkins % (Auto) 10.6 H Eos % (Auto) 0.5 Baso % (Auto) 0.5 Absolute Neuts (auto) 6.7 Absolute Lymphs (auto) 1.40 Nucleated RBC % 0 PT 24.8 H INR 2.2 Sodium 140 Potassium 3.7 Chloride 104 Carbon Dioxide 22.3 Anion Gap 14 BUN 14 Creatinine 1.05 Estim Creat Clear Calc 69.52 Est GFR (MDRD) Non-Af 77 BUN/Creatinine Ratio 13.4 Glucose 97 Calcium 9.1 Radiography Chest X-Ray - ED: 2 View (Negative for evidence of epiglottitis, prevertebral soft tissue swelling to rule out retropharyngeal abscess.) and Read by ED Physician ([id number].) Diagnostic Testing: Clinical Impression(s) from Imaging Studies Soft Tissue Neck CT 03/04/25 14:39 IMPRESSION: 1. No abscess or collection. No lymphadenopathy. 2. Edema of the soft tissues of the oropharynx, hypopharynx extending down to false cords, aryepiglottic folds and arytenoids. Airway is not compromised at this time. Consider infection, inflammation, angioedema. 3. Left vocal cord paralysis. The findings and impression of this report were called directly to Jennifer Goel at 4 p.m. Eastern standard time. Reading Location: [id number] Soft Tissue Neck X-Ray 03/04/25 14:40 IMPRESSION: Degenerative changes cervical spine. Unremarkable appearance of the soft tissues. Reading Location: [id number] Management Discussion w/another healthcare provider: Hospitalist (Will discuss case with Dr. Cedeno. Disposition is admission question is what unit patient should go to.) <Dr. 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 Discharge Date/Time: 03/04/25 20:33 What to do if you have Problems For any increased pain, shortness of breath, bleeding, nausea or vomiting, chest pain, or any unexpected problems, contact your Primary Care Provider. Call [facility] ([phone]) or report to the closest Emergency Room. Call 911 if necessary. 03/04/25 1633 <Electronically signed by Jennifer PHILLIP> Cosigner Signature (if applicable): 03/05/25 0658 <Electronically signed by Ashok Olvera MD> CC: Dr. Marion Feng MD ~ Signed [facility] Work Phone: [phone] Discharge summary [facility] Medical Records Department [address] [place] [address] Emergency Department Summary 03/04/25 MR#: [id number] Acct: [id number] Name: RICH JAMES I Rep #:[id number] : [id number] 69 From: Jennifer PHILLIP PCP: Dr. Marion Feng MD Status:ADM IN Location: PCU [id number] HPI History of Present Illness Chief Complaint: Sore Throat Narrative Narrative: 69-year-old male with PMH of HLD, COPD, A-fib on Coumadin states he has had 3 days of a sore throatand cough. He was managing it with Tylenol but today he states he could not keep down his morning medications. He states as soon as thepills hit his throat they came back up. He could not keep down fluids. He has not tried food. He denies chest pain or shortness of breath. He denies concernfor recent esophageal food impaction. Short he was urgent care and had a negative strep test and was sent here for evaluation. 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) New onset atrial fibrillation (02/18/20) Home Medications ?Medication ?Instructions ?Recorded ?Last Taken ?Type fluticasone propionate 50 1 spray intranasal DAILY All ergies 02/29/20 Unknown History mcg/actuation nasal spray,suspension (Flonase Allergy Relief) pnyvkljamqm-kqdbetkad-vtq C-Mn 500 2 cap PO DAILY Join ts releif 02/29/20 03/03/25 History mg-400 mg capsule (Glucosamine Chondroitin Maximum Strength) famotidine 20 mg tablet 20 mg PO DAILY GERD #90 tabs 11/28/21 03/03/25 Rx loratadine 10 mg tablet (Claritin) 10 mg PO DAILY Rico rgies 06/12/22 03/03/25 History simvastatin 20 mg tablet 20 mg PO QHS Cholesterol #90 tabs 06/29/24 03/03/25 Rx budesonide 160 mcg-glycopyr 9 2 inh inhalation BID #3 ea 12/02/24 03/03/25 Rx mcg-formot 4.8 mcg/actuation HFA inhaler (Breztri Aerosphere) metoprolol succinate 25 mg 25 mg PO DAILY BP and Heart rate 12/23/24 03/03/25 Rx tablet,extended release 24 hr control #90 tabs benzocaine 15 mg-menthol 10 mg 1 winnie mucous membrane . 4 times 03/04/25 03/04/25 Rx lozenges (Chloraseptic Max) daily PRN sore throat #15 ea warfarin 5 mg tablet See Rx Instructions PO .COMP CATALINA 03/04/25 03/03/25 History Blood thinner Allergy/AdvReac Type Severity Reaction Status Date / Time No Known Allergies Allergy Verified 03/04/25 21:05 Family History Father Diabetes Surgical History S/P ablation of atrial fibrillation History of shoulder surgery History of repair of right rotator cuff History of carpal tunnel release History of total hip arthroplasty Social History Smoking Status: Former smoker alcohol intake: current alcohol intake frequency: a few times a month Alcohol type: beer and hard liquor substance use type: does not use caffeine: Yes Type: coffee Number of servings: 10 and tea Number of servings: 2 ROS ROS ED ROS Narrative Constitutional: Negative for fever, chills, malaise. ENT: Positive for sore throat. CVS: Negative for chest pain. Respiratory: Negative for shortness of breath. GI: Negative for vomiting. EXAM Physical Exam Narrative Exam Narrative: CONST: Patient sitting in no acute distress. EYES: Normal inspection. ENT: Pharyngeal erythema without tonsillar swelling or exudate, midline uvula, no trismus, no elevation, no drooling or stridor. NECK: Normal inspection. RESP: No respiratory distress, CTAB. CVS: Regular rate and rhythm, no murmur, no gallop. SKIN: Color normal, no rash, warm, dry, intact. EXTREMITIES: Normal appearance, no pedal edema. NEURO: Alert and answering questions appropriately. PSYCH: Normal affect. Const Vital Signs: 03/04/25 14:01 03/04/25 14:29 03/04/25 14:56 Temperature 98.9 F 98.9 F Temperature Source Temporal Oral Pulse Rate 69 92 75 Respiratory Rate 16 22 H 14 Blood Pressure 129/67 H 133/56 H Blood Pressure Mean 87 81 Pulse Ox 97 99 98 Oxygen Delivery Method Room Air Room Air Room Air 03/04/25 14:57 03/04/25 15:04 03/04/25 15:17 Temperature 98 F Temperature Source Oral Pulse Rate 63 70 Respiratory Rate 24 H 16 Blood Pressure 133/56 H 133/56 H Blood Pressure Mean 81 81 Pulse Ox 100 100 100 Oxygen Delivery Method Room Air Room Air 03/04/25 15:44 03/04/25 15:45 03/04/25 15:47 Temperature Temperature Source Pulse Rate Respiratory Rate Blood Pressure 127/53 H 122/50 H Blood Pressure Mean 76 73 Pulse Ox 98 Oxygen Delivery Method 03/04/25 16:00 03/04/25 16:00 03/04/25 16:16 Temperature 98.6 F Temperature Source Oral Pulse Rate 55 L Respiratory Rate 16 Blood Pressure 139/59 H Blood Pressure Mean 85 Pulse Ox 100 100 100 Oxygen Delivery Method Room Air 03/04/25 16:21 03/04/25 16:30 03/04/25 16:31 Temperature Temperature Source Pulse Rate 61 Respiratory Rate 16 Blood Pressure 122/50 H 139/59 H Blood Pressure Mean 74 78 Pulse Ox 100 100 Oxygen Delivery Method Room Air 03/04/25 16:42 03/04/25 16:45 03/04/25 17:00 Temperature 98.9 F 98.9 F Temperature Source Oral Pulse Rate 55 L 52 L Respiratory Rate 16 20 H Blood Pressure 139/59 H 128/53 H Blood Pressure Mean 85 78 Pulse Ox 100 100 100 Oxygen Delivery Method Room Air 03/04/25 17:05 03/04/25 17:14 03/04/25 17:15 Temperature Temperature Source Pulse Rate Respiratory Rate Blood Pressure 128/53 H 135/56 H Blood Pressure Mean 74 75 Pulse Ox 76 Oxygen Delivery Method 03/04/25 17:16 03/04/25 17:35 03/04/25 17:45 Temperature Temperature Source Pulse Rate Respiratory Rate Blood Pressure Blood Pressure Mean Pulse Ox 100 98 97 Oxygen Delivery Method 03/04/25 18:00 03/04/25 18:00 Temperature 98.9 F Temperature Source Oral Pulse Rate 66 Respiratory Rate 14 Blood Pressure 125/42 H 125/42 H Blood Pressure Mean 69 70 Pulse Ox 99 Oxygen Delivery Method Room Air Physical Exam Const Vital Signs: 03/04/25 14:01 03/04/25 14:29 03/04/25 14:56 Temperature 98.9 F 98.9 F Temperature Source Temporal Oral Pulse Rate 69 92 75 Respiratory Rate 16 22 H 14 Blood Pressure 129/67 H 133/56 H Blood Pressure Mean 87 81 Pulse Ox 97 99 98 Oxygen Delivery Method Room Air Room Air Room Air 03/04/25 14:57 03/04/25 15:04 03/04/25 15:17 Temperature 98 F Temperature Source Oral Pulse Rate 63 70 Respiratory Rate 24 H 16 Blood Pressure 133/56 H 133/56 H Blood Pressure Mean 81 81 Pulse Ox 100 100 100 Oxygen Delivery Method Room Air Room Air 03/04/25 15:44 03/04/25 15:45 03/04/25 15:47 Temperature Temperature Source Pulse Rate Respiratory Rate Blood Pressure 127/53 H 122/50 H Blood Pressure Mean 76 73 Pulse Ox 98 Oxygen Delivery Method 03/04/25 16:00 03/04/25 16:00 03/04/25 16:16 Temperature 98.6 F Temperature Source Oral Pulse Rate 55 L Respiratory Rate 16 Blood Pressure 139/59 H Blood Pressure Mean 85 Pulse Ox 100 100 100 Oxygen Delivery Method Room Air 03/04/25 16:21 03/04/25 16:30 03/04/25 16:31 Temperature Temperature Source Pulse Rate 61 Respiratory Rate 16 Blood Pressure 122/50 H 139/59 H Blood Pressure Mean 74 78 Pulse Ox 100 100 Oxygen Delivery Method Room Air 03/04/25 16:42 03/04/25 16:45 03/04/25 17:00 Temperature 98.9 F 98.9 F Temperature Source Oral Pulse Rate 55 L 52 L Respiratory Rate 16 20 H Blood Pressure 139/59 H 128/53 H Blood Pressure Mean 85 78 Pulse Ox 100 100 100 Oxygen Delivery Method Room Air 03/04/25 17:05 03/04/25 17:14 03/04/25 17:15 Temperature Temperature Source Pulse Rate Respiratory Rate Blood Pressure 128/53 H 135/56 H Blood Pressure Mean 74 75 Pulse Ox 76 Oxygen Delivery Method 03/04/25 17:16 03/04/25 17:35 03/04/25 17:45 Temperature Temperature Source Pulse Rate Respiratory Rate Blood Pressure Blood Pressure Mean Pulse Ox 100 98 97 Oxygen Delivery Method 03/04/25 18:00 03/04/25 18:00 Temperature 98.9 F Temperature Source Oral Pulse Rate 66 Respiratory Rate 14 Blood Pressure 125/42 H 125/42 H Blood Pressure Mean 69 70 Pulse Ox 99 Oxygen Delivery Method Room Air MDM MDM MDM Narrative Medical decision making narrative: 69-year-old male presenting with inability to swallow his secretions or pills this morning. Some sore throat over the last few days. He is awake alert no distress. Vital stable. He is speaking in full sentences without stridor or wheezing. His uvula looks slightly enlarged and secretions are slowlypooling inthe back of his throat and he occasionally spitting them out. There is no tonsillar swelling or exudate or signs of peritonsillar abscess. Lungs are clear. He has no rash or other signs of allergic reaction. CT soft tissue of the neck shows edema of the soft tissues of the oropharynx, hypopharynx and epiglottic folds without signs of fluid collection or abscess. There is no airway compromise. The radiologist called and states is nonspecific but it almost looks like an angioedema reaction. I informed the patient I am he deniesany new foods or medication. He is not on ABI inhibitors. 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 He was treated as an allergic reaction with IV fluids, Benadryl, Solu- Medrol, Pepcid. At this time he is stable and 100% on room air so I did not give epinephrine. He will require observation. I discussed the case with the spitalist. I have personally performed a face to face assessment of the patient and have reviewed the CARMELITA Note. I performed a substantive portion of the visit including all aspects of the following. My rose findings include: History is remarkable for hoarse voice, throat pain and this morning unable to swallow his pills. 7difficult swallowing secretions. He denies fever, chills night sweats. He denies upper respiratory symptoms. He denies skin lesions. He is not on an ABI inhibitor or ARB. Exam is remarkable for slightly hoarse voice. Uvula is swollen. He has increased secretions poolingin the back of his throat. Question of stridor with auscultation of the neck. Trachea is midline. No pain with movement of the trachea. There is no cervical lymphadenopathy. There is no subcu mental o rsubmandibular lymphadenopathy appreciated. There is no change in the color of her skin i.e. which is visible since he has a morgan. There is no firmness or induration noted. There is no firmness or elevation of the floor of the mouth. Medical Decision Making with him having abnormal oscillatory sounds of his neck troubles swallowingswollen uvula will obtain CT to evaluate for infection i.e. epiglottitis, lingular tonsillitis, retropharyngeal abscess. Other additions or changes: [None] History & Record Review Discussion w/independent historian: Patient and Family Lab Data Labs: Laboratory Results - last 24 hr 03/04/25 14:56 WBC 9.2 RBC 4.60 Hgb 14.6 Hct 42.4 MCV 92.2 MCH 31.7 MCHC 34.4 RDW Std Deviation 48.4 H RDW Coeff of Shailesh 14.3 Plt Count 203 MPV 9.8 Immature Gran % (Auto) 0.200 Neut % (Auto) 72.9 H Lymph % (Auto) 15.3 L Jenkins % (Auto) 10.6 H Eos % (Auto) 0.5 Baso % (Auto) 0.5 Absolute Neuts (auto) 6.7 Absolute Lymphs (auto) 1.40 Nucleated RBC % 0 PT 24.8 H INR 2.2 Sodium 140 Potassium 3.7 Chloride 104 Carbon Dioxide 22.3 Anion Gap 14 BUN 14 Creatinine 1.05 Estim Creat Clear Calc 69.52 Est GFR (MDRD) Non-Af 77 BUN/Creatinine Ratio 13.4 Glucose 97 Calcium 9.1 Radiography Diagnostic Testing: Clinical Impression(s) from Imaging Studies Soft Tissue Neck CT 03/04/25 14:39 IMPRESSION: 1. No abscess or collection. No lymphadenopathy. 2. Edema of the soft tissues of the oropharynx, hypopharynx extending down to false cords, aryepiglottic folds and arytenoids. Airway is not compromised at this time. Consider infection, inflammation, angioedema. 3. Left vocal cord paralysis. The findings and impression of this report were called directly to Jennifer Goel at 4 p.m. Easternstandard time. Reading Location: [id number] Soft Tissue Neck X-Ray 03/04/25 14:40 IMPRESSION: Degenerative changes cervical spine. Unremarkable appearance of the soft tissues. Reading Location: [id number] MDM MDM Narrative Medical decision making narrative: I have personally performed a face to face assessment of the patient and have reviewed the CARMELITA Note. I performed a substantive portion of the visit including all aspects of the following. My rose findings include: History is remarkable for hoarse voice, throat pain and this morning unable to swallow his pills. 7difficult swallowing secretions. He denies fever, chills night sweats. He denies upper respiratory symptoms. He denies skin lesions. He is not on an ABI inhibitor or ARB. Exam is remarkable for slightly hoarse voice. Uvula is swollen. He has increased secretions poolingin the back of his throat. Question of stridor with auscultation of the neck. Trachea is midline. No pain with movement of the trachea. There is no cervical lymphadenopathy. There is no subcu mental or submandibular lymphadenopathy appreciated. There is no change in the color of her skin i.e. whichis visible since he has a morgan. There is no firmness or induration noted. There is no firmness or elevation of the floor of the mouth. Medical Decision Making with him having abnormal oscillatory sounds of his neck troubles swallowingswollen uvula will obtain CT to evaluate for infection i.e. epiglottitis, lingular tonsillitis, retropharyngeal abscess. Other additions or changes: [None] Lab Data Attestation: I reviewed the patient's lab results. Lab results narrative: White count is unremarkable. Electrolyte panel is unremarkable. Labs: Laboratory Results - last 24 hr 03/04/25 14:56 WBC 9.2 RBC 4.60 Hgb 14.6 Hct 42.4 MCV 92.2 MCH 31.7 MCHC 34.4 RDW Std Deviation 48.4 H RDW Coeff of Shailesh 14.3 Plt Count 203 MPV 9.8 Immature Gran % (Auto) 0.200 Neut % (Auto) 72.9 H Lymph % (Auto) 15.3 L Jenkins % (Auto) 10.6 H Eos % (Auto) 0.5 Baso % (Auto) 0.5 Absolute Neuts (auto) 6.7 Absolute Lymphs (auto) 1.40 Nucleated RBC % 0 PT 24.8 H INR 2.2 Sodium 140 Potassium 3.7 Chloride 104 Carbon Dioxide 22.3 Anion Gap 14 BUN 14 Creatinine 1.05 Estim Creat Clear Calc 69.52 Est GFR (MDRD) Non-Af 77 BUN/Creatinine Ratio 13.4 Glucose 97 Calcium 9.1 Radiography Chest X-Ray - ED: 2 View (Negative for evidence of epiglottitis, prevertebral soft tissue swelling to rule out retropharyngeal abscess.) and Read by ED Physician ([id number].) Diagnostic Testing: Clinical Impression(s) from Imaging Studies Soft Tissue Neck CT 03/04/25 14:39 IMPRESSION: 1. No abscess or collection. No lymphadenopathy. 2. Edema of the soft tissues of the oropharynx, hypopharynx extending down to false cords, aryepiglottic folds and arytenoids. Airway is not compromised at this time. Consider infection, inflammation, angioedema. 3. Left vocal cord paralysis. The findings and impression of this report were called directly to Jennifer Goel at 4 p.m. Easternstandard time. Reading Location: [facility] Soft Tissue Neck X-Ray 03/04/25 14:40 IMPRESSION: Degenerative changes cervical spine. Unremarkable appearance of the soft tissues. Reading Location: [facility] Management Discussion w/another healthcare provider: Hospitalist (Will discuss case with Dr. Cedeno. 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 Discharge Date/Time: 03/04/25 20:33 What to do if you have Problems For any increased pain, shortness of breath, bleeding, nausea or vomiting, chest pain, or any unexpected problems, contact your Primary Care Provider. Call [email or web address] ([phone]) or report to the closest Emergency Room. Call 911 if necessary. 03/04/25 1633 Cosigner Signature (if applicable): 03/05/25 0658 CC: Dr. Marion Feng MD ~ Signed [facility]08-15-2025 History and physical note Author Donna Cedeno [facility] Note Date/Time March 04, 2025 7: 01pm [facility] Medical Records Department [address] [place] [address] H&P Exam - Hospitalist 03/04/25 1813 MR#: [id number] Acct: [id number] Name: RICH JAMES I Rep #:[id number] : 1955 69 From: Donna Cedeno MD PCP: Dr. Marion Feng MD Status:ADM IN Location: [facility] [place] [id number] HPI - General General Date of Admission: 03/04/25 Date of Service: 03/04/25 Chief Complaint: Difficulty swallowing medications HPI Narrative RICH JAMES, is a 69-year-old male history of A-fib on Coumadin, COPD, hyperlipidemia, depression presented to [facility] ED 03/04/2025 with 3 days of sore throat and cough. He had been managing it with Tylenol but this a.m. could not keep down his morning medications because as soon medicines hit his throat they come back up and he could not keep down fluids at that time. No shortness of breath or chest pain. No concern for esophageal food impaction. Went to urgent care and had negative strep test and was sent to the ED for further evaluation. In the ED temp 98.9, heart rate 69 and blood pressure 129/67, respiratory rate 16 and pulse ox 97% on room air. Patient was not in acute distress with no voice changes, stridor, wheezing. He had CT of soft tissue of the neck which showed edema of soft tissues of the oropharynx, hypopharynx and epiglottic folds without sign of fluid collection or abscess andno airway compromise. Radiologist said it was nonspecific but almost looked like an angioedema like reaction. Patient not on ABI inhibitor and has no foodsthat were new or medications, did disassemble something that was very elder and used a leaf blower to clean out a semitruck. Patient treated in ED like an allergic reaction and given IV fluids, Benadryl, Solu-Medrol and Pepcid. Hospitalist contacted for admission for observation. Lab workup with normal hemoglobin and white blood cell count, BMP within normal limits. Patient evaluated at bedside. He and report that on Friday he blew out a semi with a leaf blower and that it was caked with rest and likely other corrosive substances, he began to have a sore throat on Friday and symptoms progressed and this a.m. he was having difficulty drinking or getting pills down prompting them to come to the ED. Since patient got cocktail in the ED he does report he is feeling little bit better than he did, denies any fevers at home, has a little bit of a headache right now, protecting airway and better able to swallow secretions, felt a little nauseous when he laid flat earlier but not at this time, denies any shortness of breath, no productive cough, no chest pain. No rashes, bleeding, bruising. 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) New onset atrial fibrillation (02/18/20) Home Medications ?Medication ?Instructions ?Recorded ?Last Taken ?Type fluticasone propionate 50 1 spray intranasal DAILY 06/09 Unknown History mcg/actuation nasal spray,suspension (Flonase Allergy Relief) tzyubknnjkr-plfrnaxwh-mgz C-Mn 500 1 cap PO DAILY 02/18 08/09 Unknown History mg-400 mg capsule (Glucosamine Chondroitin Maximum Strength) famotidine 20 mg tablet 20 mg PO DAILY #90 tabs 11/1806/04/22 Rx loratadine 10 mg tablet (Claritin) 10 mg PO DAILY 05/22 10/09 Unknown History simvastatin 20 mg tablet 20 mg PO QHS #90 tabs Unknown Rx budesonide 160 mcg-glycopyr 9 2 inh inhalation BID #3 ea 12/02/24 Unknown Rx mcg-formot 4.8 mcg/actuation HFA inhaler (Breztri Aerosphere) bupropion HCl (smoking deter) 150 150 mg PO BID #60 ta bs 12/02/24 Unknown Rx mg tablet,12 hr sustained-release(smoking deterrent) metoprolol succinate 25 mg 25 mg PO DAILY #90 tabs 12/12 Unknown Rx tablet,extended release 24 hr benzocaine 15 mg-menthol 10 mg 1 winnie mucous membrane . 4 times 03/04/25 Unknown Rx lozenges (Chloraseptic Max) daily PRN sore throat #15 ea warfarin 5 mg tablet See Rx Instructions PO .COMP CATALINA 03/04/25 Unknown History Allergy/AdvReac Type Severity Reaction Status Date / Time No Known Allergies Allergy Verified 03/04/25 08:08 Family History Father Diabetes Surgical History S/P ablation of atrial fibrillation History of shoulder surgery History of repair of right rotator cuff History of carpal tunnel release History of total hip arthroplasty Social History Smoking Status: Former smoker alcohol intake: current alcohol intake frequency: a few times a month Alcohol type: beer and hard liquor substance use type: does not use caffeine: Yes Type: coffee Number of servings: 10 and tea Number of servings: 2 ROS ROS Narrative General: Denies fever/chills HENT: Little bit of a headache and has had a sore throat EYES: Denies changes in vision Resp: denies shortness of breath Cardiac: Denies chest pain GI: Denies abdominal pain, denies changes in bowel, felt a little nauseous earlier : Denies changes in urination Extremity: Denies swelling in extremities MSK: Denies weakness Neuro: Denies any numbness/tingling Heme: Denies any bleeding or bruising Skin: Denies rashes Psychiatric: No complaints voiced Vital Signs Vital Signs Vital Signs: 03/04/25 14:01 03/04/25 14:29 03/04/25 14:56 Temperature 98.9 F 98.9 F Temperature Source Temporal Oral Pulse Rate 69 92 75 Respiratory Rate 16 22 H 14 Blood Pressure 129/67 H 133/56 H Blood Pressure Mean 87 81 Pulse Ox 97 99 98 Oxygen Delivery Method Room Air Room Air Room Air 03/04/25 14:57 03/04/25 15:04 03/04/25 16:00 Temperature 98 F 98.6 F Temperature Source Oral Oral Pulse Rate 63 70 55 L Respiratory Rate 24 H 16 16 Blood Pressure 133/56 H 133/56 H 139/59 H Blood Pressure Mean 81 81 85 Pulse Ox 100 100 100 Oxygen Delivery Method Room Air Room Air Room Air 03/04/25 16:21 03/04/25 16:42 03/04/25 17:00 Temperature 98.9 F 98.9 F Temperature Source Oral Pulse Rate 61 55 L 52 L Respiratory Rate 16 16 20 H Blood Pressure 122/50 H 139/59 H 128/53 H Blood Pressure Mean 74 85 78 Pulse Ox 100 100 100 Oxygen Delivery Method Room Air Room Air 03/04/25 18:00 Temperature 98.9 F Temperature Source Oral Pulse Rate 66 Respiratory Rate 14 Blood Pressure 125/42 H Blood Pressure Mean 69 Pulse Ox 99 Oxygen Delivery Method Room Air Weight Weight: 83.143 kg Body Mass Index (BMI) 26.3 Physical Exam Narrative General: Alert, oriented HEENT: Normocephalic, does have some bags under eyes Eyes: Anicteric, normal conjunctiva, extraocular movements grossly intact Neck: Some erythema posterior pharynx, no acute abnormalities under tongue sublingually, no focal areas of fluctuance on palpation under mandible or neck, patient seems to be handling secretions well and there is no stridor or wheezing Respiratory: Clear to auscultation bilaterally, normal respiratory effort Cardiovascular: Regular rate and rhythm GI: Soft, nontender, nondistended Extremities: No edema Musculoskeletal: Moving all extremities Neuro: No overt focal neurological deficits Skin: No rashes appreciated Psych: Cooperative Results Lab / Micro Data 03/04/25 14:56 03/04/25 14:56 Labs: Laboratory Results - last 24 hr 03/04/25 14:56: WBC 9.2, RBC 4.60, Hgb 14.6, Hct 42.4, MCV 92.2, MCH 31.7, MCHC 34.4, RDW Std Deviation 48.4 H, RDW Coeff of Shailesh 14.3, Plt Count 203, MPV 9.8, Immature Gran % (Auto) 0.200, Neut % (Auto) 72.9 H, Lymph % (Auto) 15.3 L, Jenkins % (Auto) 10.6 H, Eos % (Auto) 0.5, Baso % (Auto) 0.5, Absolute Neuts (auto) 6.7,Absolute Lymphs (auto) 1.40, Nucleated RBC % 0, Sodium 140, Potassium 3.7, Chloride 104, Carbon Dioxide 22.3, Anion Gap 14, BUN 14, Creatinine 1.05, Estim Creat Clear Calc 69.52, Est GFR (MDRD) Non-Af 77, BUN/Creatinine Ratio 13.4, Glucose 97, Calcium 9.1 Imaging Radiology Impression Soft Tissue Neck CT 03/04/25 14:39 IMPRESSION: 1. No abscess or collection. No lymphadenopathy. 2. Edema of the soft tissues of the oropharynx, hypopharynx extending down to false cords, aryepiglottic folds and arytenoids. Airway is not compromised at this time. Consider infection, inflammation, angioedema. 3. Left vocal cord paralysis. The findings and impression of this report were called directly to Jennifer Goel at 4 p.m. Eastern standard time. Reading Location: [facility] Soft Tissue Neck X-Ray 03/04/25 14:40 IMPRESSION: Degenerative changes cervical spine. Unremarkable appearance of the soft tissues. Reading Location: [facility] Assessment & Plan Assessment/Plan (1) Dysphagia: PLAN: Plan # Soft tissue swelling of oropharynx, hypopharynx, epiglottic folds - No sign of fluid collection or abscess and no airway compromise - Patient given IV fluids, Benadryl, Solu-Medrol and Pepcid -He does feel he is improving some since he received this medications, seems to be handling secretions at this time - Will continue steroids and famotidine and close monitoring -Continue n.p.o., keep head of bed elevated, pending clinical progress can try to advance diet tomorrow versus speech therapy consult for evaluation - No infectious signs or symptoms at this time and patient afebrile with no increased white blood cell count, no antibiotics seem to be indicated at this time -This happened after patient directly inhaled what was assumed to be rest and other corrosive substances, suspect this is secondary to that, no new medicationchanges or other acute changes that would seem to account for this change #Hx COPD -Continue home inhalers -Incentive spirometer #Paroxysmal Atrial Fibrillation -Rate control: On oral metoprolol, can consider IV metoprolol if patient will have prolonged n.p.o. -Anticoagulation: Coumadin, resume when patient cleared to tolerate p.o., INR presently therapeutic #Depression/anxiety -Continue home medications when safe to do so #DVT ppx: SCDs Donna Cedeno MD Charges/Coding Visit Charges Inpatient E&M: 16412 Init Hosp L2 03/04/25 190 <Electronically signed by Donna Cedeno MD> Cosigner Signature (if applicable): CC: Dr. Marion Feng MD; Dr. Donna Cedeno MD~ Signed [facility] Work Phone: [phone] History and physical note Author Donna Cedeno [facility] Note Date/Time March 04, 2025 7: 01pm [facility] Medical Records Department [address] [place] [address] H&P Exam - Hospitalist 03/04/25 1813 MR#: [id number] Acct: [id number] Name: RICH JAMES I Rep #:[id number] : 1955 69 From: Donna Cedeno MD PCP: Dr. Marion Feng MD Status:ADM IN Location: [place] [address] HPI - General General Date of Admission: 03/04/25 Date of Service: 03/04/25 Chief Complaint: Difficulty swallowing medications HPI Narrative RICH JAMES, is a 69-year-old male history of A-fib on Coumadin, COPD, hyperlipidemia, depression presented to [facility] ED 03/04/2025 with 3 days of sore throat and cough. He had been managing it with Tylenol but this a.m. could not keep down his morning medications because as soon medicines hit his throat they come back up and he could not keep down fluids at that time. No shortness of breath or chest pain. No concern for esophageal food impaction. Went to urgent care and had negative strep test and was sent to the ED for further evaluation. In the ED temp 98.9, heart rate 69 and blood pressure 129/67, respiratory rate 16 and pulse ox 97% on room air. Patient was not in acute distress with no voice changes, stridor, wheezing. He had CT of soft tissue of the neck which showed edema of soft tissues of the oropharynx, hypopharynx and epiglottic folds without sign of fluid collection or abscess andno airway compromise. Radiologist said it was nonspecific but almost looked like an angioedema like reaction. Patient not on ABI inhibitor and has no foodsthat were new or medications, did disassemble something that was very elder and used a leaf blower to clean out a semitruck. Patient treated in ED like an allergic reaction and given IV fluids, Benadryl, Solu-Medrol and Pepcid. Hospitalist contacted for admission for observation. Lab workup with normal hemoglobin and white blood cell count, BMP within normal limits. Patient evaluated at bedside. He and report that on Friday he blew out a semi with a leaf blower and that it was caked with rest and likely other corrosive substances, he began to have a sore throat on Friday and symptoms progressed and this a.m. he was having difficulty drinking or getting pills down prompting them to come to the ED. Since patient got cocktail in the ED he does report he is feeling little bit better than he did, denies any fevers at home, has a little bit of a headache right now, protecting airway and better able to swallow secretions, felt a little nauseous when he laid flat earlier but not at this time, denies any shortness of breath, no productive cough, no chest pain. No rashes, bleeding, bruising. 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) New onset atrial fibrillation (02/18/20) Home Medications ?Medication ?Instructions ?Recorded ?Last Taken ?Type fluticasone propionate 50 1 spray intranasal DAILY 06/09 Unknown History mcg/actuation nasal spray,suspension (Flonase Allergy Relief) [id number]-[id number] C-Mn 500 1 cap PO DAILY 02/18 08/09 Unknown History mg-400 mg capsule (Glucosamine Chondroitin Maximum Strength) famotidine 20 mg tablet 20 mg PO DAILY #90 tabs 11/1806/04/22 Rx loratadine 10 mg tablet (Claritin) 10 mg PO DAILY 05/22 10/09 Unknown History simvastatin 20 mg tablet 20 mg PO QHS #90 tabs Unknown Rx budesonide 160 mcg-glycopyr 9 2 inh inhalation BID #3 ea 12/02/24 Unknown Rx mcg-formot 4.8 mcg/actuation HFA inhaler (Breztri Aerosphere) bupropion HCl (smoking deter) 150 150 mg PO BID #60 ta bs 12/02/24 Unknown Rx mg tablet,12 hr sustained-release(smoking deterrent) metoprolol succinate 25 mg 25 mg PO DAILY #90 tabs 12/12 Unknown Rx tablet,extended release 24 hr benzocaine 15 mg-menthol 10 mg 1 winnie mucous membrane . 4 times 03/04/25 Unknown Rx lozenges (Chloraseptic Max) daily PRN sore throat #15 ea warfarin 5 mg tablet See Rx Instructions PO .COMP CATALINA 03/04/25 Unknown History Allergy/AdvReac Type Severity Reaction Status Date / Time No Known Allergies Allergy Verified 03/04/25 08:08 Family History Father Diabetes Surgical History S/P ablation of atrial fibrillation History of shoulder surgery History of repair of right rotator cuff History of carpal tunnel release History of total hip arthroplasty Social History Smoking Status: Former smoker alcohol intake: current alcohol intake frequency: a few times a month Alcohol type: beer and hard liquor substance use type: does not use caffeine: Yes Type: coffee Number of servings: 10 and tea Number of servings: 2 ROS ROS Narrative General: Denies fever/chills HENT: Little bit of a headache and has had a sore throat EYES: Denies changes in vision Resp: denies shortness of breath Cardiac: Denies chest pain GI: Denies abdominal pain, denies changes in bowel, felt a little nauseous earlier : Denies changes in urination Extremity: Denies swelling in extremities MSK: Denies weakness Neuro: Denies any numbness/tingling Heme: Denies any bleeding or bruising Skin: Denies rashes Psychiatric: No complaints voiced Vital Signs Vital Signs Vital Signs: 03/04/25 14:01 03/04/25 14:29 03/04/25 14:56 Temperature 98.9 F 98.9 F Temperature Source Temporal Oral Pulse Rate 69 92 75 Respiratory Rate 16 22 H 14 Blood Pressure 129/67 H 133/56 H Blood Pressure Mean 87 81 Pulse Ox 97 99 98 Oxygen Delivery Method Room Air Room Air Room Air 03/04/25 14:57 03/04/25 15:04 03/04/25 16:00 Temperature 98 F 98.6 F Temperature Source Oral Oral Pulse Rate 63 70 55 L Respiratory Rate 24 H 16 16 Blood Pressure 133/56 H 133/56 H 139/59 H Blood Pressure Mean 81 81 85 Pulse Ox 100 100 100 Oxygen Delivery Method Room Air Room Air Room Air 03/04/25 16:21 03/04/25 16:42 03/04/25 17:00 Temperature 98.9 F 98.9 F Temperature Source Oral Pulse Rate 61 55 L 52 L Respiratory Rate 16 16 20 H Blood Pressure 122/50 H 139/59 H 128/53 H Blood Pressure Mean 74 85 78 Pulse Ox 100 100 100 Oxygen Delivery Method Room Air Room Air 03/04/25 18:00 Temperature 98.9 F Temperature Source Oral Pulse Rate 66 Respiratory Rate 14 Blood Pressure 125/42 H Blood Pressure Mean 69 Pulse Ox 99 Oxygen Delivery Method Room Air Weight Weight: 83.143 kg Body Mass Index (BMI) 26.3 Physical Exam Narrative General: Alert, oriented HEENT: Normocephalic, does have some bags under eyes Eyes: Anicteric, normal conjunctiva, extraocular movements grossly intact Neck: Some erythema posterior pharynx, no acute abnormalities under tongue sublingually, no focal areas of fluctuance on palpation under mandible or neck, patient seems to be handling secretions well and there is no stridor or wheezing Respiratory: Clear to auscultation bilaterally, normal respiratory effort Cardiovascular: Regular rate and rhythm GI: Soft, nontender, nondistended Extremities: No edema Musculoskeletal: Moving all extremities Neuro: No overt focal neurological deficits Skin: No rashes appreciated Psych: Cooperative Results Lab / Micro Data 03/04/25 14:56 03/04/25 14:56 Labs: Laboratory Results - last 24 hr 03/04/25 14:56: WBC 9.2, RBC 4.60, Hgb 14.6, Hct 42.4, MCV 92.2, MCH 31.7, MCHC 34.4, RDW Std Deviation 48.4 H, RDW Coeff of Shailesh 14.3, Plt Count 203, MPV 9.8, Immature Gran % (Auto) 0.200, Neut % (Auto) 72.9 H, Lymph % (Auto) 15.3 L, Jenkins % (Auto) 10.6 H, Eos % (Auto) 0.5, Baso % (Auto) 0.5, Absolute Neuts (auto) 6.7,Absolute Lymphs (auto) 1.40, Nucleated RBC % 0, Sodium 140, Potassium 3.7, Chloride 104, Carbon Dioxide 22.3, Anion Gap 14, BUN 14, Creatinine 1.05, Estim Creat Clear Calc 69.52, Est GFR (MDRD) Non-Af 77, BUN/Creatinine Ratio 13.4, Glucose 97, Calcium 9.1 Imaging Radiology Impression Soft Tissue Neck CT 03/04/25 14:39 IMPRESSION: 1. No abscess or collection. No lymphadenopathy. 2. Edema of the soft tissues of the oropharynx, hypopharynx extending down to false cords, aryepiglottic folds and arytenoids. Airway is not compromised at this time. Consider infection, inflammation, angioedema. 3. Left vocal cord paralysis. The findings and impression of this report were called directly to Jennifer Goel at 4 p.m. Eastern standard time. Reading Location: [facility] Soft Tissue Neck X-Ray 03/04/25 14:40 IMPRESSION: Degenerative changes cervical spine. Unremarkable appearance of the soft tissues. Reading Location: [facility] Assessment & Plan Assessment/Plan (1) Dysphagia: PLAN: Plan # Soft tissue swelling of oropharynx, hypopharynx, epiglottic folds - No sign of fluid collection or abscess and no airway compromise - Patient given IV fluids, Benadryl, Solu-Medrol and Pepcid -He does feel he is improving some since he received this medications, seems to be handling secretions at this time - Will continue steroids and famotidine and close monitoring -Continue n.p.o., keep head of bed elevated, pending clinical progress can try to advance diet tomorrow versus speech therapy consult for evaluation - No infectious signs or symptoms at this time and patient afebrile with no increased white blood cell count, no antibiotics seem to be indicated at this time -This happened after patient directly inhaled what was assumed to be rest and other corrosive substances, suspect this is secondary to that, no new medicationchanges or other acute changes that would seem to account for this change #Hx COPD -Continue home inhalers -Incentive spirometer #Paroxysmal Atrial Fibrillation -Rate control: On oral metoprolol, can consider IV metoprolol if patient will have prolonged n.p.o. -Anticoagulation: Coumadin, resume when patient cleared to tolerate p.o., INR presently therapeutic #Depression/anxiety -Continue home medications when safe to do so #DVT ppx: SCDs Donna Cedeno MD Charges/Coding Visit Charges Inpatient E&M: 38470 Init Hosp L2 03/04/25 190 <Electronically signed by Donna Cedeno MD> Cosigner Signature (if applicable): CC: Dr. Marion Feng MD; Dr. Donna Cedeno MD~ Signed [facility] Work Phone: [phone] History and physical note [facility] Medical Records Department [address] [place] [address] H&P Exam - Hospitalist 03/04/25 1813 MR#: [id number] Acct: [id number] Name: RICH JAMES I Rep #:[id number] : 1955 69 From: Donna Cedeno MD PCP: Dr. Marion Feng MD Status:ADM IN Location: [facility] [place] DU[address]-2 HPI - General General Date of Admission: 03/04/25 Date of Service: 03/04/25 Chief Complaint: Difficulty swallowing medications HPI Narrative RICH JAMES, is a 69-year-old male history of A-fib on Coumadin, COPD, hyperlipidemia, depression presented to [facility] ED 03/04/2025 with 3 days of sore throat and cough. Hehad been managing it with Tylenol but this a.m. could not keep down his morning medications becauseas soon medicines hit his throat they come back up and he could not keep down fluids at that time. No shortness of breath or chest pain. No concern for esophageal food impaction. Went to urgent care and had negative strep test and was sent to the ED for further evaluation. In the ED temp 98.9, heart rate 69 and blood pressure 129/67, respiratory rate 16 and pulse ox 97% on room air. Patient was not in acute distress with no voice changes, stridor, wheezing. He had CT of soft tissue of the neck which showed edema of soft tissues of the oropharynx, hypopharynx and epiglottic folds without sign of fluid collection or abscess andno airway compromise. Radiologist said it was nonspecific but almost looked like an angioedema like reaction. Patient not on ABI inhibitor and has no foodsthat were new or medications, did disassemble something that was very elder and used a leaf blower to clean outa semitruck. Patient treated in ED like an allergic reaction and given IV fluids, Benadryl, Solu-Medrol and Pepcid. Hospitalist contacted for admission for observation. Lab workup with normal hemoglobin and white blood cell count, BMP within normal limits. Patient evaluated at bedside. He and report that on Friday he blew out a semi with a leaf blower and that it was caked with rest and likely other corrosive substances, he began to have a sore throat on Friday and symptoms progressed and this a.m. he was having difficulty drinking or getting pills down prompting them to come to the ED. Since patient got cocktail in the ED he does report he is feeling little bit better than he did, denies any fevers at home, has a little bit of a headache right now, protecting airway andbetter able to swallow secretions, felt a little nauseous when he laid flat earlier but not at thistime, denies any shortness of breath, no productive cough, no chest pain. No rashes, bleeding, bruising. 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) New onset atrial fibrillation (02/18/20) Home Medications ?Medication ?Instructions ?Recorded ?Last Taken ?Type fluticasone propionate 50 1 spray intranasal DAILY 06/09 Unknown History mcg/actuation nasal spray,suspension (Flonase Allergy Relief) vmbjlynhkmn-qzmgglhlv-ygv C-Mn 500 1 cap PO DAILY 02/18 08/09 Unknown History mg-400 mg capsule (Glucosamine Chondroitin Maximum Strength) famotidine 20 mg tablet 20 mg PO DAILY #90 tabs 11/1806/04/22 Rx loratadine 10 mg tablet (Claritin) 10 mg PO DAILY 05/22 10/09 Unknown History simvastatin 20 mg tablet 20 mg PO QHS #90 tabs Unknown Rx budesonide 160 mcg-glycopyr 9 2 inh inhalation BID #3 ea 12/02/24 Unknown Rx mcg-formot 4.8 mcg/actuation HFA inhaler (Breztri Aerosphere) bupropion HCl (smoking deter) 150 150 mg PO BID #60 ta bs 12/02/24 Unknown Rx mg tablet,12 hr sustained-release(smoking deterrent) metoprolol succinate 25 mg 25 mg PO DAILY #90 tabs 12/12 Unknown Rx tablet,extended release 24 hr benzocaine 15 mg-menthol 10 mg 1 winnie mucous membrane . 4 times 03/04/25 Unknown Rx lozenges (Chloraseptic Max) daily PRN sore throat #15 ea warfarin 5 mg tablet See Rx Instructions PO .COMP CATALINA 03/04/25 Unknown History Allergy/AdvReac Type Severity Reaction Status Date / Time No Known Allergies Allergy Verified 03/04/25 08:08 Family History Father Diabetes Surgical History S/P ablation of atrial fibrillation History of shoulder surgery History of repair of right rotator cuff History of carpal tunnel release History of total hip arthroplasty Social History Smoking Status: Former smoker alcohol intake: current alcohol intake frequency: a few times a month Alcohol type: beer and hard liquor substance use type: does not use caffeine: Yes Type: coffee Number of servings: 10 and tea Number of servings: 2 ROS ROS Narrative General: Denies fever/chills HENT: Little bit of a headache and has had a sore throat EYES: Denies changes in vision Resp: denies shortness of breath Cardiac: Denies chest pain GI: Denies abdominal pain, denies changes in bowel, felt a little nauseous earlier : Denies changes in urination Extremity: Denies swelling in extremities MSK: Denies weakness Neuro: Denies any numbness/tingling Heme: Denies any bleeding or bruising Skin: Denies rashes Psychiatric: No complaints voiced Vital Signs Vital Signs Vital Signs: 03/04/25 14:01 03/04/25 14:29 03/04/25 14:56 Temperature 98.9 F 98.9 F Temperature Source Temporal Oral Pulse Rate 69 92 75 Respiratory Rate 16 22 H 14 Blood Pressure 129/67 H 133/56 H Blood Pressure Mean 87 81 Pulse Ox 97 99 98 Oxygen Delivery Method Room Air Room Air Room Air 03/04/25 14:57 03/04/25 15:04 03/04/25 16:00 Temperature 98 F 98.6 F Temperature Source Oral Oral Pulse Rate 63 70 55 L Respiratory Rate 24 H 16 16 Blood Pressure 133/56 H 133/56 H 139/59 H Blood Pressure Mean 81 81 85 Pulse Ox 100 100 100 Oxygen Delivery Method Room Air Room Air Room Air 03/04/25 16:21 03/04/25 16:42 03/04/25 17:00 Temperature 98.9 F 98.9 F Temperature Source Oral Pulse Rate 61 55 L 52 L Respiratory Rate 16 16 20 H Blood Pressure 122/50 H 139/59 H 128/53 H Blood Pressure Mean 74 85 78 Pulse Ox 100 100 100 Oxygen Delivery Method Room Air Room Air 03/04/25 18:00 Temperature 98.9 F Temperature Source Oral Pulse Rate 66 Respiratory Rate 14 Blood Pressure 125/42 H Blood Pressure Mean 69 Pulse Ox 99 Oxygen Delivery Method Room Air Weight Weight: 83.143 kg Body Mass Index (BMI) 26.3 Physical Exam Narrative General: Alert, oriented HEENT: Normocephalic, does have some bags under eyes Eyes: Anicteric, normal conjunctiva, extraocular movements grossly intact Neck: Some erythema posterior pharynx, no acute abnormalities under tongue sublingually, no focal areas of fluctuance on palpation under mandible or neck, patient seems to be handling secretions welland there is no stridor or wheezing Respiratory: Clear to auscultation bilaterally, normal respiratory effort Cardiovascular: Regular rate and rhythm GI: Soft, nontender, nondistended Extremities: No edema Musculoskeletal: Moving all extremities Neuro: No overt focal neurological deficits Skin: No rashes appreciated Psych: Cooperative Results Lab / Micro Data 03/04/25 14:56 03/04/25 14:56 Labs: Laboratory Results - last 24 hr 03/04/25 14:56: WBC 9.2, RBC 4.60, Hgb 14.6, Hct 42.4, MCV 92.2, MCH 31.7, MCHC 34.4, RDW Std Deviation 48.4 H, RDW Coeff of Shailesh 14.3, Plt Count 203, MPV 9.8, Immature Gran % (Auto) 0.200, Neut % (Auto) 72.9 H, Lymph % (Auto) 15.3 L, Jenkins % (Auto) 10.6 H, Eos % (Auto) 0.5, Baso % (Auto) 0.5, Absolute Neuts (auto) 6.7,Absolute Lymphs (auto) 1.40, Nucleated RBC % 0, Sodium 140, Potassium 3.7, Chloride 104, Carbon Dioxide 22.3, Anion Gap 14, BUN 14, Creatinine 1.05, Estim Creat Clear Calc 69.52, Est GFR (MDRD) Non-Af 77, BUN/Creatinine Ratio 13.4, Glucose 97, Calcium 9.1 Imaging Radiology Impression Soft Tissue Neck CT 03/04/25 14:39 IMPRESSION: 1. No abscess or collection. No lymphadenopathy. 2. Edema of the soft tissues of the oropharynx, hypopharynx extending down to false cords, aryepiglottic folds and arytenoids. Airway is not compromised at this time. Consider infection, inflammation, angioedema. 3. Left vocal cord paralysis. The findings and impression of this report were called directly to Jennifer Goel at 4 p.m. [facility]. Reading Location: [id number] Soft Tissue Neck X-Ray 03/04/25 14:40 IMPRESSION: Degenerative changes cervical spine. Unremarkable appearance of the soft tissues. Reading Location: [id number] Assessment & Plan Assessment/Plan (1) Dysphagia: PLAN: Plan # Soft tissue swelling of oropharynx, hypopharynx, epiglottic folds - No sign of fluid collection or abscess and no airway compromise - Patient given IV fluids, Benadryl, Solu-Medrol and Pepcid -He does feel he is improving some since he received this medications, seems to be handling secretions at this time - Will continue steroids and famotidine and close monitoring -Continue n.p.o., keep head of bed elevated, pending clinical progress can try to advance diet tomorrow versus speech therapy consult for evaluation - No infectious signs or symptoms at this time and patient afebrile with no increased white blood cell count, no antibiotics seem to be indicated at this time -This happened after patient directly inhaled what was assumed to be rest and other corrosive substances, suspect this is secondary to that, no new medicationchanges or other acute changes that wouldseem to account for this change #Hx COPD -Continue home inhalers -Incentive spirometer #Paroxysmal Atrial Fibrillation -Rate control: On oral metoprolol, can consider IV metoprolol if patient will have prolonged n.p.o. -Anticoagulation: Coumadin, resume when patient cleared to tolerate p.o., INR presently therapeutic #Depression/anxiety -Continue home medications when safe to do so #DVT ppx: SCDs Donna Cedeno MD Charges/Coding Visit Charges Inpatient E&M: 00271 Init Hosp L2 03/04/25 1901 Cosigner Signature (if applicable): CC: Dr. Marion Feng MD; Dr. Donna Cedeno MD~ Signed [facility]08-15-2025 Radiology Diagnostic study note [facility] Imaging Services [address] [place], [place] [id number] Soft Tissue Neck WITH Contrast MR#: [id number] Acct: [id number] Name: RICH JAMES I Rep #: [id number] : 1955 M 69 From: Fercho Downey MD PCP: Dr. Marion Feng MD Status: REG ER Study:Soft Tissue Neck WITH Contrast Date of Exam: 03/04/25 Exam# [id number] Ordering Dr: Jennifer Tong PROCEDURE: SOFT TISSUE NECK WITH CONTRAST 03/04/2025 REASON FOR EXAM: SORE THROAT TECHNIQUE: SOFT TISSUE NECK WITH CONTRAST CONTRAST: Isovue 370 VOLUME: 98 mL One or more dose reduction techniques were used (e.g., Automated exposure control, adjustment of the mA and/or kV according to patient size, use of iterative reconstruction technique). RADIATION DOSE SUMMARY: CTDlvol: 18.8 mGy DLP: 613 mGycm COMPARISON: X-ray of the same day FINDINGS: Airway: Patent. However, the soft tissues of the oropharynx, hypopharynx are edematous. No abscess is seen. Larynx: The soft tissues around the larynx including the false cords, aryepiglottic folds and arytenoids are edematous. Minimal edema of the epiglottis. This is not particularly significant. However, the edema extends up to theupper esophageal sphincter region. There is dilation of the left laryngeal ventricle suggesting vocal cord paralysis. Salivary glands: Submandibular, parotid glands appear unremarkable. Lymph nodes: None appear enlarged. Thyroid: Normal Vasculature: Some atherosclerosis at the carotid bulb on the right. Minimal edema around the right carotid sheath near the level of the bulb. Orbits: Unremarkable Paranasal sinuses and mastoids: Clear Lung apices: Scarring right lung apex anteriorly. Upper mediastinum: No mass Bones: Degenerative changes lower cervical spine. CT/Soft Tissue Neck WITH Contrast IMPRESSION: 1. No abscess or collection. No lymphadenopathy. 2. Edema of the soft tissues of the oropharynx, hypopharynx extending down to false cords, aryepiglottic folds and arytenoids. Airway is not compromised at this time. Consider infection, inflammation, angioedema. 3. Left vocal cord paralysis. The findings and impression of this report were called directly to Jennifer Goel at 4 p.m. Easternstandard time. Reading Location: [facility] CC: Dr. Marion Feng MD; KENJI Smith ~ Community Support Specialist: Signed [facility]08-15-2025 Radiology Diagnostic study note [facility] Imaging Services [address] [place] [address] Neck for Soft Tissue MR#: [id number] Acct: [id number] Name: RICH JAMES I Rep #: [id number] : 1955 M 69 From: Fercho Downey MD PCP: Dr. Marion Feng MD Status: REG ER Study:Neck for Soft Tissue Date of Exam: 03/04/25 Exam# [id number] Ordering Dr: Jennifer Tong PROCEDURE: NECK FOR SOFT TISSUE 03/04/2025 REASON FOR EXAM: SORE THROAT TECHNIQUE: NECK FOR SOFT TISSUE COMPARISON: December 07, 2024 PET/CT FINDINGS: Bones: Mild to moderate disc space narrowing C4/5, C5/6 and C6/7 with marginal endplate spurring and uncinate spurring. Joints: Mild facet hypertrophy lower cervical spine. Soft tissues: Mild atherosclerotic plaque left carotid bulb region. No prevertebral soft tissue swelling. Other: No foreign body RAD/Neck for Soft Tissue IMPRESSION: Degenerative changes cervical spine. Unremarkable appearance of the soft tissues. Reading Location: [facility] CC: Dr. Marion Feng MD; KENJI Smith ~ Community Support Specialist: Signed [facility]07-10-2025 History of Present illness Narrative* Eli Manuel APRN - BONDERIZER - 01/27/2025 10:30 AM EDT Images from the original note were not included. [facility]: CT SURGEONS [facility] [address] [facility] [address] Dept: [phone] Dept Loc: [phone] Visit type: Established patient - in person [...] tobacco abuse. Pt completed regular CT lung screeningon 11/17/24 which showed a new irregular right [...] M.D./George Delaney M.D. Intraoperative consultation performed at [facility], [address] [place] [address]; CLIA: [id number]; Joint Commission: [id number]; CAP: [id number] Clinical Information Solitary pulmonary nodule - R91.1 [...] 1.7 x 1 x 1 cm. A sales representative livestock portion is submitted for frozen section diagnosis. The remainder of the specimen is sectioned revealing areas with dilated airspaces and focal fibrosis. An additional well- defined mass is not seen. The majority of [...] x 1.8 x 0.6 cm red-brown aggregate ofsoft tissue consistent with fragmented lymph node. The larger pieces are sectioned. The specimen issubmitted entirely in two cassettes. D. Received in formalin labeled level 4R lymph node is a 1.8 x 1.6 x 0.3 cm aggregate of yellow-pink fibrofatty-appearing soft tissue. The specimen is submitted in one cassette. Disclaimer INFORMED CONSENT:The nature and purpose of the proposed treatment or procedure have been discussed.The risks and benefits of the proposed treatment [...] This note may have been dictated using Closely Practice Edition 2.6 and/or [employer] Voice Recognition Feature. The document was proofread, however unrecognized voice recognition blending machine operator errors may be present. documented in this encounterSParma Community General [id number] Nurse Note* Lisa Barfield RN - 01/14/2025 1:15 PM EDT Discharged ordered reviewed and signed no questions at this time. [id number] Nurse Note* Lisa Barfield RN - 01/14/2025 1:15 PM EDT Discharged ordered reviewed and signed no questions at this time. * Jerica Lorenzo RN - 01/10/2025 10:[address] Ding patient is not to wear his home cpap due to risk of rupture of the staple line and risk of pneumothorax. Re-entered patient's room and explained this to patient, patient understands andstates he will not put on his home cpap, Placed patient back on 2L oxygen for the night. * Jerica Lorenzo RN - 01/10/2025 8:[address] Ding patient is inquiring on whether his coumadin and bupropion will be ordered. Dr. Ding stated it is too soon after surgery to begin coumadin, patient educated. Bupropion medication will be non-formulary, patient understands he is to have his bring it from home. documented in this [facility]06-27-2025 Note* Care Coordination - Ebony Ball RN - 01/14/2025 11:54 AM EDT Care Management Progress Note Short Medical why still here: Patient remains on H6 right upper lobe nodule s/p wedge resection. Per chart review CT dc'd. Active discharge order noted. No home going needs noted. Planned Discharge Disposition: Home or Self Care Barriers/Today we still Wait: Clinical stability, Symptomatic control Length of Stay (Days): 4 GMLOS: 3.5 [id number] Note* Care Coordination - Ebony Ball RN - 01/14/2025 11:54 AM EDT Care Management Progress Note Short Medical why still here: Patient remains on H6 right upper lobe nodule s/p wedge resection. Per chart review CT dc'd. Active discharge order noted. No home going needs noted. Planned Discharge Disposition: Home or Self Care Barriers/Today we still Wait: Clinical stability, Symptomatic control Length of Stay (Days): 4 GMLOS: 3.5 [facility] [id number] NoteCare Management Progress Note Short Medical why still here: Patient remains on H6 right upper lobe nodule s/p wedge resection. Per chart review CT dc'd. Active discharge order noted. No home going needs noted. Planned Discharge Disposition: Home or Self Care Barriers/Today we still Wait: Clinical stability, Symptomatic control Length of Stay (Days): 4 [facility]MLOS[facility] Miscellaneous Notes* Care Coordination - Ebony Ball RN - 01/14/2025 11:54 AM EDT Care Management Progress Note Short Medical why still here: Patient remains on H6 right upper lobe nodule s/p wedge resection. Per chart review CT dc'd. Active discharge order noted. No home going needs noted. Planned Discharge Disposition: Home or Self Care Barriers/Today we still Wait: Clinical stability, Symptomatic control Length of Stay (Days): 4 GMLOS: 3.5 * Care Plan - Bekah Tristan RN - 01/13/2025 9:57 PM EDT Problem: Pain - Adult Goal: Verbalizes/displays adequate comfort level or baseline comfort level Outcome: Progressing Problem: Safety - Adult Goal: Free from fall injury Outcome: Progressing Problem: Discharge Planning Goal: Discharge to home or other facility with appropriate resources Outcome: Progressing * Care Plan - Katie Schneider RN - 01/13/2025 10:35 AM EDT Problem: Pain - Adult Goal: Verbalizes/displays adequate comfort level or baseline comfort level Outcome: Progressing Problem: Safety - Adult Goal: Free from fall injury Outcome: Progressing Problem: Discharge Planning Goal: Discharge to home or other facility with appropriate resources Outcome: Progressing Problem: Chronic Conditions and Co-morbidities Goal: Patient's chronic conditions and co-morbidity symptoms are monitored and maintained or improved Outcome: Progressing * Care Plan - Bekah Tristan RN - 01/12/2025 9:50 PM EDT Problem: Pain - Adult Goal: Verbalizes/displays adequate comfort level or baseline comfort level Outcome: Progressing Problem: Safety - Adult Goal: Free from fall injury Outcome: Progressing Problem: Discharge Planning Goal: Discharge to home or other facility with appropriate resources Outcome: Progressing * Care Plan - Katie Schneider RN - 01/12/2025 2:18 PM EDT Problem: Pain - Adult Goal: Verbalizes/displays adequate comfort level or baseline comfort level Outcome: Progressing Problem: Safety - Adult Goal: Free from fall injury Outcome: Progressing Problem: Discharge Planning Goal: Discharge to home or other facility with appropriate resources Outcome: Progressing Problem: Chronic Conditions and Co-morbidities Goal: Patient's chronic conditions and co-morbidity symptoms are monitored and maintained or improved Outcome: Progressing * Care Coordination - Ebony Ball RN - 01/12/2025 1:54 PM EDT Care Management Progress Note Short Medical why still here: Patient remains on H6 right upper lobe nodule s/p wedge resection with chest tube. Chest tube to water seal. Planned Discharge Disposition: Home or Self Care Barriers/Today we still Wait: Clinical stability, Symptomatic control Length of Stay (Days): 2 GMLOS: No GMLOS Documented * Care Plan - Jerica Lorenzo RN - 01/12/2025 5:22 AM EDT Problem: Pain - Adult Goal: Verbalizes/displays adequate [...] fall injury: Instruct family/caregiver on patient safety * Home Care - Fabby Narayanan RN - 01/11/2025 3:59 PM EDT Discussed Home Care Services available to patient [...] care to sign off. Please re-consult should anyother needs arise prior to DC. * Care Coordination - Ebony Ball RN - 01/11/2025 2:13 PM EDT Care Management Progress Note Short Medical why still here: Patient admitted to H6 Right upper lobe nodule s/p wedge resection with chest tube. Planned Discharge Disposition: Home or Self Care Barriers/Today we still Wait: Clinical stability, Symptomatic control. Chest tube removal Length of Stay (Days): 1 GMLOS: No GMLOS Documented * Care Plan - Jerica Lorenzo RN - 01/11/2025 1:32 AM EDT Problem: Pain - Adult Goal: Verbalizes/displays adequate [...] discharge learning needs (meds, wound care, etc) * Perioperative Nursing Note - Kristi Koo RN - 01/10/2025 11:58 AM EDT Report called to Prashanth family updated * Op Note - Sarah Luna DO - 01/10/2025 7:30 AM EDT CARDIOTHORACIC SURGERY--OPERATIVE NOTE Date: 01/10/25 Preoperative Diagnosis: Right upper lobe lung nodule Postoperative Diagnosis: Right upper lobe lung nodule Procedure: Robotic right thoracoscopy Right upper lobe wedge resection Mediastinal lymph node dissection Surgeon: Savanah Luna DO Fan Blade Truer: Mamie Ballesteros Anesthesia: General--Dr. Houston Complications: None [...] been offered. After complete workup the above procedurewas offered. The risks, benefits, and alternatives were [...] and draped in usual sterile fashion. The middle school assistant principal was present for the entire procedure from start to finish and helped with all portions of it. Local lidocaine was used at each ofour incision sites. An 8 mm incision was made at the approximate eighth intercostal space posterioraxillary line. A trocar was placed through this followed by the camera. The other incisions were made under direct visualization. A posterior incision in the same interspace was made and an 8 mm portwas placed through this. In between these two a 12 mm incision was made and a 12 mm port was placed. Another incision was made anteriorly and a 12 mm port was placed through this. At the costophrenicangle the air seal port was placed under direct visualization. The robot was then brought to the field and the camera was docked. Appropriate targeting took place. The other instruments were then placed. At this time I scrubbed out to perform the procedure robotically. There were no pleural implants seen. The fissures were reasonably well- developed. Manipulation of the upper lobe indicated the location of the nodule in question. Because I felt confident that the nodule was at this site I elected to perform a wedge biopsy first. This was done using several firingsof an Endo ALTON 45 stapler with blue loads. I took care to leave a generous margin beneath the nodule. Once it was removed it was placed into an Endo Catch bag and sent for frozen section. During thistime a lymph node biopsy was performed. The inferior pulmonary ligament was taken down and the station 9 lymph node was removed. I then opened up the posterior hilum to reveal the subcarinal space. Th e station 7 lymph nodes were removed from [...] was undocked and removed. A single 28 Burundian chest tube was placed through the anterior [...] of outputs and hemodynamics. Savanah Luna DO [facility] Cardiothoracic Surgery documented in this [facility]06-27-2025 NoteDischarge Summary: Cardiothoracic Surgery Rich James, 69 y.o., 1955 ADMIT DATE: 01/10/2025 DISCHARGE DATE: 01/14/2025 VISIT STATUS: Admission CODE STATUS: Full Code DISCHARGING SURGEON: Sarah Luna DO, Office Number: [phone] DISCHARGE DIAGNOSES: Right upper lobe nodule s/p [...] to 7 days. CONTINUE taking these medications Breztri Aerosphere 160-9-4.8 MCG/ACT aerosol Generic drug: Rocoglf-Jkwbsejjrvy-Pcotniimls buPROPion 150 MG 12 hr tablet Commonly known as: Zyban famotidine 20 MG tablet Commonly known as: Pepcid [id number]-IIDCKPGSU-OEK C-MN PO loratadine 10 MG tablet Commonly known as: Claritin metoprolol succinate XL 25 MG 24 hr tablet Commonly known as: Toprol-XL simvastatin 20 MG tablet Commonly known as: Zocor warfarin 5 MG tablet Commonly known as: Coumadin STOP taking these medications fluticasone 50 MCG/ACT nasal spray Commonly known as: Flonase Where to Get Your Medications These medications were sent to [facility] [address] [place] [address] Hours: Friday to Friday 10 am to [...] THE HOME GOING INSTRUCTIONS FOLLOW UP: Eli Manuel PARVEEN January 27 10:30am [address] [facility] [address], [place] [address] Dept: [phone] Dept DISPOSITION: Home A copy of the discharge instructions which included the medications at the time of discharge, follow-up appointments, phone numb (more content not included)... [facility]06[facility] Hospital Discharge instructions* Discharge Instructions* Eli ManuelMARCOS CNP - 01/14/2025 11:06 AM EDT Images from the original note were not included. [facility]: Cardiothoracic Surgery [address] [place] [address] [address] JORDAN (T): #[phone] (F): #[phone] After lung surgery, it is common to [...] avoid lifting anything that would make you strain.This may include a child, heavy grocery bags and milk containers, a heavy briefcase or backpack, cat litter or dog food bags, or a vacuum freight car cleaner. If your incision is in [...] be off all narcotic and sedative medications priorto returning to driving. Ok to shower. Avoid [...] will be removed at your follow-up visit 10- 14 days with your provider. Also, sutures from drains/tubes will be removed at this time. Continue to follow discharge stretching exercises outlined below. Start each exercise slowly. Ease off the exercises if you start to have pain. Shoulder Stretch superintendent radio communications a doorway and place one arm against [...] medication prescribed on discharge from the hospital. Ifyou are prescribed oxycodone/acetaminophen (Percocet) or hydrocodone/acetaminophen ([place]/Vicodin) be cautious when taking additional tylenol. No [...] needed next to incision but not on yourincision. -Ice packs applied for 20 minutes then off for at least 20 minutes before reapplying. Call your Surgeon or return to the Emergency Room if you experience: -New or increased pain. -New or increased bleeding. -Nausea & vomiting. -Fever & chills. -Shortness of breath. -Chest pain. -Abdominal distention. Cardiothoracic Surgery: Symptom Management Office phone number: [phone] Office is open 8:30 am -4 pm. If you need assistance after hours, this will direct you to a nursinghotline. GREEN ZONE: All Clear- Your Symptoms Are Under Control Incisional pain is managed by taking Acetaminophen and/or pain medication No increase in shortness of breath No increase in leg swelling or weight gain No frequent lightheadedness/dizziness No redness or drainage from incisions. Small amount of thin, blood tinged or yellow drainage is notuncommon for few days post discharge This Means [...] Call cardiothoracic surgery line for further instructions: [phone] Office is open 8:30 am -4 pm. If you need assistance after hours, this will direct you to a nursinghotline. RED ZONE: Medical Alert Severe shortness of breath at rest Severe chest pain/pressure or pain that radiates to neck, jaw, back, and/or arm that is NOT relieved with rest and pain medication. May be similar to pain prior to surgery Passing out or fainting This Means You Should: call EMS or seek care in Emergency Department documented in this [facility]06-27-2025 History of Present illness Narrative* Renata Hassan [facility] - 01/14/2025 10:42 AM EDT [facility] Anticoagulation Management Service ([facility]) Inpatient Warfarin Consult HPI: Rich James is a 69 y.o. male admitted on 01/10/2025 for Solitary pulmonary nodule [R91.1] Lung nodule [R91.1]. Medical History[1] Patient is on warfarin for DVT, Afib, Protein C Deficiency and has a goal INR 2.0 - 3.0. Warfarin is currently managed by [facility]. Pt's home dose of warfarin [...] candidate 2025, staffed with Renata Hassan PharmD, [facility] Consult Service is available daily [phone] via tuul Secure Chat. [1] Past Medical History: Diagnosis Date COPD (chronic obstructive pulmonary disease) (HCC) GERD (gastroesophageal reflux disease) Hiatal hernia 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 Obesity FIFI (obstructive sleep apnea) Paroxysmal atrial fibrillation (HCC) Protein deficiency anemia Right bundle branch block * MARCOS Simpson CNP - 01/13/2025 3:20 PM EDT Reviewed with surgeon. Ok to d/c CT Chest tube assessed: no air leak, subcutaneous air noted. Chest tube removed without difficulty anddressing applied. Patient tolerated well. Patient and nurse educated on possible complications to observe for. Will continue to monitor. Follow up CXR in am unless new symptoms of respiratory distress * Maile Blount - 01/13/2025 2:23 PM EDT Images from the original note were not included. PHYSICAL THERAPY [facility] Treatment Note Name/MRN: Rich James ([id number]) Date of : 1955 Age: 69 y.o. Room/Bed: -6111/6111 A Discharge Recommendation: Home with assist PRN [...] no assistive device in order to improve safetyand independence with mobility. (Completed) Start: 01/11/25 Expected [...] Minutes: 26 Minutes (GT/Ther Ex) Maile Blount, SPTMare Thomas HOSE TESTER Cosigned by Eva Estevez PT at 01/13/2025 3:54 PM EDT Associated attestation - Eva Estevez PT - 01/13/2025 3:54 PM EDT Goals met, OK to discharge from PT standpoint. Recommend use of mobility aides for encouraging walking throughout LOS. * Diandra Alvarado - 01/13/2025 11:51 AM EDT Images from the original note were not included. OCCUPATIONAL THERAPY [facility] Initial Evaluation Name/MRN: Rich James ([id number]) Evaluation Date: 01/13/2025 Date of : 1955 Admission Date: 01/10/2025 5:44 AM Age: 69 y.o. Room/Bed: 61/6111 A Discharge Recommendation: Home with assist PRN Assessment IMPRESSION: Pt admitted for lung nodule and s/p Robotic right thoracoscopy, right upper lobe wedge resection, mediastinal lymph node dissection on 01/10/25. 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 Pt is currently performing at or near [...] of Care supervision is transferred to a [facility] Therapy Services Occupational Therapist. Goals and/or [...] P ROCEDURE (HISTORICAL) CARPAL TUNNEL RELEASE Right MN REMV LUNG, WEDGE RESECTION AND ANATOMIC LUNG RESECTION (HISTORICAL) Right 01/10/2025 robotic right upper ROTATOR CUFF REPAIR Right ROTATOR CUFF REPAIR Left x 2 TOTAL HIP ARTHROPLASTY Right Cosigned by Tawana Flores OT at 01/13/2025 2:05 PM EDT * Renata Hassan RP - 01/13/2025 11:24 AM EDT [facility] Anticoagulation Management Service (BRITTANY) Inpatient Warfarin Consult HPI: Rich James is a 69 y.o. male admitted on 01/10/2025 for Solitary pulmonary nodule [R91.1] Lung nodule [R91.1]. Medical History[1] Patient is on warfarin for DVT, Afib, Protein C Deficiency and has a goal INR 2.0 - 3.0. Warfarin is currently managed by [facility]. Pt's home dose of warfarin [...] candidate 2025, staffed with Renata Hassan PharmD, [facility]ANY Consult Service is available daily [phone] via tuul Secure Chat. [1] Past Medical History: Diagnosis Date COPD (chronic obstructive pulmonary disease) (HCC) GERD (gastroesophageal reflux disease) Hiatal hernia 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 Obesity FIFI (obstructive sleep apnea) Paroxysmal atrial fibrillation (HCC) Protein deficiency anemia Right bundle branch block * Eli Manuel APRN - BONDERIZER - 01/13/2025 6:35 AM EDT Images from the original note [...] home. CT with +intermittent air leak with coughing.Discussed with Surgeon -->plan clamp trial. Pain is [...] Recent Labs 01/11/25 0209 01/12/25 0157 01/13/25 015 NA 136 139 136 K 4.3 4.0 [...] RUL wedge; MLND I personally performed a vyhv-yt-okdu diagnostic evaluation on this patient I agree [...] of 20 minutes were spent between the nwax-ow-pwrs encounter, physical exam, reviewing the medical history, coordinating care, counseling/educating the patient, ordering medications/test/procedures, interpreting results and documenting in the patient's record on the day of the encounter. Thepatient was seen and examined independently and relevant data reviewed by myself. Savanah Luna DO FACS Cardiothoracic Surgery * Elver Gimenez RRT - 01/12/2025 3:51 PM EDT Patient recently quit smoking. Accepting of handout with contact information for help and support if needed. * Sarah Luna DO - 01/12/2025 12:21 PM EDT Images from the original note [...] pending. Savanah Luna DO FACS Cardiothoracic Surgery * Luciana Hector - 01/12/2025 10:57 AM EDT Nutrition rescreen completed. Chart reviewed. Patient to be monitored and followed by the diet prepress technician. DEBBIE Gonzalez * Sofi Valdivia PTA - 01/12/2025 10:12 AM EDT Images from the original note were not included. PHYSICAL THERAPY [facility] Treatment Note Name/MRN: Rich James ([id number]) Date of : 1955 Age: 69 y.o. Room/Bed: 6111/[facility] A Discharge Recommendation: Home with assist [...] no assistive device in order to improve safetyand independence with mobility. (Progressing) Start: 01/11/25 Expected [...] Estevez PT at 01/12/2025 11:32 AM EDT * Vikki Noel RCP - 01/12/2025 9:45 AM EDT [facility] Respiratory Care Department Progress Note As part of the Respiratory Assessment Program (RAP), the following Respiratory Therapist evaluationhas been completed, including a chart review and [...] Respiratory in the care of this patient, * Tawana Flores OT - 01/12/2025 9:01 AM EDT Images from the original note were not included. OCCUPATIONAL THERAPY [facility] Name/MRN: Rich James ([id number]) Date: 01/12/2025 OT orders received and chart reviewed. Attempting OT eval, pt working with PT. Will continue to follow as schedule permits. Tawana Flores OTR/L * Renata Hassan [facility] - 01/12/2025 8:54 AM EDT [facility] Anticoagulation Management Service (BRITTANY) Inpatient Warfarin [...] PharmD BRITTANY Consult Service is available daily [phone] via tuul Secure Chat. [1] Past Medical History: Diagnosis Date COPD (chronic obstructive pulmonary disease) (HCC) GERD (gastroesophageal reflux disease) Hiatal hernia 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 Obesity FIFI (obstructive sleep apnea) Paroxysmal atrial fibrillation (HCC) Protein deficiency anemia Right bundle branch block * Tr Busch, PT - 01/11/2025 2:51 PM EDT Images from the original note were not included. PHYSICAL THERAPY [facility] Initial Evaluation Name/MRN: Rich James ([id number]) Evaluation Date: 01/11/2025 Date of : 1955 Admission Date: 01/10/2025 5:44 AM Age: 69 y.o. Room/Bed: [facility] A Discharge Recommendation: Home with assist PRN Assessment IMPRESSION: Pt admitted for lung nodule and s/p Robotic right thoracoscopy, right upper lobe wedge resection, mediastinal lymph node dissection on 01/10/25. Pt normally very independent and works 50 hours a week for [employer]. Pt is SBA x1 throughout session. Pt [...] chest tube but was on waterseal upon enteringroom. Pt stated MD came in and took [...] Raw Score (No Stairs) : 20 JH-HLM -HLM Score: Walked 25 ft or more (i.e. [...] no assistive device in order to improve safetyand independence with mobility. Start: 01/11/25 Expected End: [...] of Care supervision is transferred to a [facility] Therapy Services Physical Therapist. Goals and/or [...] P ROCEDURE (HISTORICAL) CARPAL TUNNEL RELEASE Right MN REMV LUNG, WEDGE RESECTION AND ANATOMIC LUNG RESECTION (HISTORICAL) Right 01/10/2025 robotic right upper ROTATOR CUFF REPAIR Right ROTATOR CUFF REPAIR Left x 2 TOTAL HIP ARTHROPLASTY Right * Renata Hassan RP - 01/11/2025 11:27 AM EDT [facility] Anticoagulation Management Service (BRITTANY) Inpatient Warfarin [...] PharmD BRITTANY Consult Service is available daily [phone] via tuul Secure Chat. [1] Past Medical History: Diagnosis Date COPD (chronic obstructive pulmonary disease) (HCC) GERD (gastroesophageal reflux disease) Hiatal hernia 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 Obesity FIFI (obstructive sleep apnea) Paroxysmal atrial fibrillation (HCC) Protein deficiency anemia Right bundle branch block * Kinga Hood - 01/11/2025 10:04 AM EDT [facility] Respiratory Care Department Progress Note As part of the Respiratory Assessment Program (RAP), the following Respiratory Therapist evaluationhas been completed, including a chart review and [...] Respiratory in the care of this patient, * Leona Price, MARCOS - BONDERIZER - 01/11/2025 6:59 AM EDT Images from the original note were not included. Cardiothoracic Surgery/[facility] Progress Note PATIENT NAME: Rich [...] of 28 minutes were spent between the juys-qi-xaug encounter, physical exam, reviewing the medical history, coordinating the patient's care, counseling/educating the patient, ordering medications/test/procedures, interpreting results and documenting clinical information in the patients electr onic health record on the day of the encounter. The patient was seen and examined Cosigned by Sarah Luna DO at 01/11/2025 3:15 PM EDT Associated attestation - Sarah Luna DO - 01/11/2025 3:15 PM EDT CARDIOTHORACIC SURGERY DOS: 01/11/25 POD # 1 Robotic right upper lobe wedge I personally performed a futx-nz-poyq diagnostic evaluation on this patient I agree [...] of 20 minutes were spent between the oore-sk-bhjl encounter, physical exam, reviewing the medical history, coordinating care, counseling/educating the patient, ordering medications/test/procedures, interpreting results and documenting in the patient's record on the day of the encounter. Thepatient was seen and examined independently and relevant data reviewed by myself. Savanah Luna, [facility] Cardiothoracic Surgery * Elver Gimenez RRT - 01/10/2025 3:43 PM EDT Patient sleeping comfortably, will attempt smoking cessation counseling at a later time. documented in this [facility]06-26-2025 Plan of care note* Care Plan - Bekah Tristan RN - 01/13/2025 9:57 PM EDT Problem: Pain - Adult Goal: Verbalizes/displays adequate comfort level or baseline comfort level Outcome: Progressing Problem: Safety - Adult Goal: Free from fall injury Outcome: Progressing Problem: Discharge Planning Goal: Discharge to home or other facility with appropriate resources Outcome: Progressing [id number] NoteOCCUPATIONAL THERAPY [facility] Initial Evaluation Name/MRN: Rich James ([id number]) Evaluation Date: 01/13/2025 Date of : 1955 Admission Date: 01/10/2025 5:44 AM Age: 69 y.o. Room/Bed: [facility] A Discharge Recommendation: Home with assist PRN Assessment IMPRESSION: Pt admitted for lung nodule and s/p Robotic right thoracoscopy, right upper lobe wedge resection, mediastinal lymph node dissection on 01/10/25. 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 Pt [...] of Care supervision is transferred to a [facility] Therapy Services Occupational Therapist. Goals and/or [...] P ROCEDURE (HISTORICAL) CARPAL TUNNEL RELEASE Right MN REMV LUNG, WEDGE RESECTION AND ANATOMIC LUNG RESECTION (HISTORICAL) Right 01/10/2025 robotic right upper ROTATOR CUFF REPAIR Right ROTATOR CUFF REPAIR Left x 2 TOTAL HIP ARTHROPLASTY [facility]06-26-2025 Plan of care note * Care Plan - Katie Schneider RN - 01/13/2025 10:35 AM EDT Problem: Pain - Adult Goal: Verbalizes/displays adequate comfort level or baseline comfort level Outcome: Progressing Problem: Safety - Adult Goal: Free from fall injury Outcome: Progressing Problem: Discharge Planning Goal: Discharge to home or other facility with appropriate resources Outcome: Progressing Problem: Chronic Conditions and Co-morbidities Goal: Patient's chronic conditions and co-morbidity symptoms are monitored and maintained or improved Outcome: Progressing [id number] Plan of care note* Care Plan - Bekah Tristan RN - 01/12/2025 9:50 PM EDT Problem: Pain - Adult Goal: Verbalizes/displays adequate comfort level or baseline comfort level Outcome: Progressing Problem: Safety - Adult Goal: Free from fall injury Outcome: Progressing Problem: Discharge Planning Goal: Discharge to home or other facility with appropriate resources Outcome: Progressing [facility] [id number] Plan of care note* Care Plan - Katie Schneider RN - 01/12/2025 2:18 PM EDT Problem: Pain - Adult Goal: Verbalizes/displays adequate comfort level or baseline comfort level Outcome: Progressing Problem: Safety - Adult Goal: Free from fall injury Outcome: Progressing Problem: Discharge Planning Goal: Discharge to home or other facility with appropriate resources Outcome: Progressing Problem: Chronic Conditions and Co-morbidities Goal: Patient's chronic conditions and co-morbidity symptoms are monitored and maintained or improved Outcome: Progressing [facility] [id number] Note* Care Coordination - Ebony Ball RN - 01/12/2025 1:54 PM EDT Care Management Progress Note Short Medical why still here: Patient remains on H6 right upper lobe nodule s/p wedge resection with chest tube. Chest tube to water seal. Planned Discharge Disposition: Home or Self Care Barriers/Today we still Wait: Clinical stability, Symptomatic control Length of Stay (Days): 2 GMLOS: No GMLOS Documented [facility] [id number] Note* Care Coordination - Ebony Ball RN - 01/12/2025 1:54 PM EDT Care Management Progress Note Short Medical why still here: Patient remains on H6 right upper lobe nodule s/p wedge resection with chest tube. Chest tube to water seal. Planned Discharge Disposition: Home or Self Care Barriers/Today we still Wait: Clinical stability, Symptomatic control Length of Stay (Days): 2 GMLOS: No GMLOS Documented [facility] HospitalKzepgq61-05-1774 NoteCare Management Progress Note Short Medical why still here: Patient remains on H6 right upper lobe nodule s/p wedge resection with chest tube. Chest tube to water seal. Planned Discharge Disposition: Home or Self Care Barriers/Today we still Wait: Clinical stability, Symptomatic control Length of Stay (Days): 2 GMLOS: No [facility]MLOS [facility]20[facility] NoteCardiothoracic Surgery Progress Note PATIENT NAME: Rich James [...] Pathology pending. Savanah Luna DO FACS [facility] SurgerySur[facility] [id number] [facility] Respiratory Care Department Progress Note As part [...] Respiratory in the care of this patient, [facility]06-25-2025 NoteCardiothoracic Surgery/CCM Progress Note PATIENT NAME: Rich James DATE: [...] of 18 minutes were spent between the qrsz-vl-tnah encounter, physical exam, reviewing the medical history, coordinating the patient's care, counseling/educating the patient, ordering medications/test/procedures, interpreting results and documenting clinical information in the patients electronic health record on the day of the encounter. The patient was seen and examined [facility]06-25-2025 Plan of care note* Care Plan - Jerica Lorenzo RN - 01/12/2025 5:22 AM EDT Problem: Pain - Adult Goal: Verbalizes/displays adequate [...] fall injury: Instruct family/caregiver on patient safety [facility] [id number] Note* Home Care - Fabby Narayanan RN - 01/11/2025 3:59 PM EDT Discussed Home Care Services available to patient [...] care to sign off. Please re-consult should anyother needs arise prior to DC. [facility] [id number] Note* Home Care - Fabby Narayanan RN - 01/11/2025 3:59 PM EDT Discussed Home Care Services available to patient [...] care to sign off. Please re-consult should anyother needs arise prior to DC. [facility] [id number] NotePHYSICAL THERAPY [facility] Initial Evaluation Name/MRN: Rich James ([id number]) Evaluation Date: 01/11/2025 Date of : 1955 Admission Date: 01/10/2025 5:44 AM Age: 69 y.o. Room/Bed: [facility] A Discharge Recommendation: Home with assist PRN Assessment IMPRESSION: Pt admitted for lung nodule and s/p Robotic right thoracoscopy, right upper lobe wedge resection, mediastinal lymph node dissection on 01/10/25. Pt normally very independent and works 50 hours a week for [employer]. Pt is SBA x1 throughout session. Pt [...] Raw Score (No Stairs) : 20 JH-HLM -M Score: Walked 25 ft or more (i.e. [...] prepare for ambulation. Start (more content not included)...[facility]06-24-[facility] Note* Care Coordination - Ebony Ball RN - 01/11/2025 2:13 PM EDT Care Management Progress Note Short Medical why still here: Patient admitted to H6 Right upper lobe nodule s/p wedge resection with chest tube. Planned Discharge Disposition: Home or Self Care Barriers/Today we still Wait: Clinical stability, Symptomatic control. Chest tube removal Length of Stay (Days): 1 GMLOS: No GMLOS Documented [id number] Note* Care Coordination - Ebony Ball RN - 01/11/2025 2:13 PM EDT Care Management Progress Note Short Medical why still here: Patient admitted to H6 Right upper lobe nodule s/p wedge resection with chest tube. Planned Discharge Disposition: Home or Self Care Barriers/Today we still Wait: Clinical stability, Symptomatic control. Chest tube removal Length of Stay (Days): 1 GMLOS: No GMLOS Documented [address]Ytdlyt05-65-7738 NoteCare Management Progress Note Short Medical why still here: Patient admitted to H6 Right upper lobe nodule s/p wedge resection with chest tube. Planned Discharge Disposition: Home or Self Care Barriers/Today we still Wait: Clinical stability, Symptomatic control. Chest tube removal Length of Stay (Days): 1 GMLOS: No GMLOS [facility]ed[facility]06-24-2025 NoteFROZEN SECTION DIAGNOSIS: FS1: Malignancy not identified. Vianca Porras M.D./Clint Mckeon M.D./George Delaney M.D. Intraoperative consultation performed at [facility], [address] [place] [address]; CLIA: [id number]; Joint Commission: [id number]; CAP: [id number] Work Phone: [phone] 583-321106-24-2025 NoteFROZEN SECTION DIAGNOSIS: FS1: Malignancy not identified. Vianca Porras M.D./Clint Mckeon M.D./George Delaney M.D. Intraoperative consultation performed at [facility], [address] [place] [address], [facility] [address]; CLIA: [id number]; Joint Commission: [facility] 6964; CAP: [id number] Work Phone: [phone] [facility] Respiratory Care Department Progress Note As part [...] Respiratory in the care of this patient, [facility]06-24-2025 Plan of care note* Care Plan - Jerica Lorenzo RN - 01/11/2025 1:32 AM EDT Problem: Pain - Adult Goal: Verbalizes/displays adequate [...] discharge learning needs (meds, wound care, etc) [facility] [id number] Nurse Note* Jerica Lorenzo RN - 01/10/2025 10:[address] Ding patient is not to wear his home cpap due to risk of rupture of the staple line and risk of pneumothorax. Re-entered patient's room and explained this to patient, patient understands andstates he will not put on his home cpap, Placed patient back on 2L oxygen for the night. [facility] HospitalEmzbto46-48-1038 Nurse Note* Jerica Lorenzo RN - 01/10/2025 8:[address] Ding patient is inquiring on whether his coumadin and bupropion will be ordered. Dr. Ding stated it is too soon after surgery to begin coumadin, patient educated. Bupropion medication will be non-formulary, patient understands he is to have his bring it from home. [facility] HospitalCdgoyj75-98-4806 NotePatient sleeping comfortably, will attempt smoking cessation counseling at a later time.[facility]06-23-2025 Nurse Note* Perioperative Nursing Note - Kristi Koo RN - 01/10/2025 11:58 AM EDT Report called to H6, family updated [facility] HospitalWtfvgy72-45-1167 NotePatient: Rich Meridar Procedure Summary Date: 01/10/25 Room / Location: [address] Operating Room Anesthesia Start: 731 Anesthesia [...] discharged once all PACU criteria has been met.[facility]06-23-2025 NotePatient: Rich Jjhberger Procedure Summary Date: 01/10/25 Room / Location: [address] Operating Room Anesthesia Start: 731 Anesthesia [...] Allowed opportunity for questions and acknowledgement of understanding.[facility]06-23-2025 NoteAirway Date/Time: 01/10/2025 7:35 AM Reason: scheduled Airway not difficult General Information and Staff Patient location during procedure: Procedural Resident/SUGAR CHIPPER MACHINE OPERATOR: Wallace Pina APRN - SUGAR CHIPPER MACHINE OPERATOR Performed: SRNA Patient Condition Indications for [...] approach: 1 Number of other approaches attempted: 1SKres[facility]06-[facility]-2025 Note Arterial Line: Date/Time: 01/10/2025 7:44 AM [...] procedure well with no complications. Staffing Performed: SUGAR CHIPPER MACHINE OPERATOR Resident/SUGAR CHIPPER MACHINE OPERATOR: Jeison Gomez, [facility]06-23-2025 Procedure note* Op Note - Sarah Luna DO - 01/10/2025 7:30 AM EDT CARDIOTHORACIC SURGERY--OPERATIVE NOTE Date: 01/10/25 Preoperative Diagnosis: Right upper lobe lung nodule Postoperative Diagnosis: Right upper lobe lung nodule Procedure: Robotic right thoracoscopy Right upper lobe wedge resection Mediastinal lymph node dissection Surgeon: Savanah Luna DO Fan Blade Truer: Mamie Ballesteros Anesthesia: General--Dr. Houston Complications: None [...] been offered. After complete workup the above procedurewas offered. The risks, benefits, and alternatives were [...] and draped in usual sterile fashion. The middle school assistant principal was present for the entire procedure from start to finish and helped with all portions of it. Local lidocaine was used at each ofour incision sites. An 8 mm incision was made at the approximate eighth intercostal space posterioraxillary line. A trocar was placed through this followed by the camera. The other incisions were made under direct visualization. A posterior incision in the same interspace was made and an 8 mm portwas placed through this. In between these two a 12 mm incision was made and a 12 mm port was placed. Another incision was made anteriorly and a 12 mm port was placed through this. At the costophrenicangle the air seal port was placed under direct visualization. The robot was then brought to the field and the camera was docked. Appropriate targeting took place. The other instruments were then placed. At this time I scrubbed out to perform the procedure robotically. There were no pleural implants seen. The fissures were reasonably well- developed. Manipulation of the upper lobe indicated the location of the nodule in question. Because I felt confident that the nodule was at this site I elected to perform a wedge biopsy first. This was done using several firingsof an Endo ALTON 45 stapler with blue loads. I took care to leave a generous margin beneath the nodule. Once it was removed it was placed into an Endo Catch bag and sent for frozen section. During thistime a lymph node biopsy was performed. The inferior pulmonary ligament was taken down and the station 9 lymph node was removed. I then opened up the posterior hilum to reveal the subcarinal space. Th e station 7 lymph nodes were removed from [...] was undocked and removed. A single 28 Burundian chest tube was placed through the anterior [...] of outputs and hemodynamics. Savanah Luna DO [facility] Cardiothoracic Surgery [facility]06-23-2025 NotePeripheral Block Time Out: 01/10/2025 7:00 AM Patient location during procedure: pre-op Start time: 01/10/2025 7:00 AM End time: 01/10/2025 7:05 AM Reason for block: procedure for pain and Acute pain service Staffing Performed: SUGAR CHIPPER MACHINE OPERATOR Resident/SUGAR CHIPPER MACHINE OPERATOR: MARCOS Franklin CRNA Preanesthetic Checklist Completed: patient identified, IV checked, site marked, risks and benefits discussed, surgical consent, monitors and equipment checked, pre-op evaluation and timeout performed Region: Truncal Primary: Erector Spinae Secondary: Serratus (20cc TAP 10 cc exparel) Peripheral Block Prep: ChloraPrep Patient monitoring: heart rate, revenue cycle manager and continuous pulse ox O2: Nasal cannula [...] Injection 20 mL - 01/10/2025 7:00:00 AM fybXOKBMqbgtk-zwuiqugwvgv-xlgbobjayen (TAP) syringe - Injection 40 mL - 01/10/2025 7:00:00 [facility]06-23-2025 Attending History and physical note* Sarah Luna DO - 01/10/2025 6:45 AM EDT H&P reviewed. The patient was examined and there are no changes to the H&P. PFTs from [facility] reviewed. FEV1 2.33/66%. DLCO 16.4/64%. Will proceed with right upper lobectomy today. Savanah Luna DO [facility] Cardiothoracic Surgery Source Note - Sarah Luna DO - 12/23/2024 11:15 AM EDT Images from the original note were not included. [facility] CARDIOVASCULAR & THORACIC SURGERY [address] [facility] [address] Dept: [phone] Dept Loc: [phone] Visit type: New Reason for Visit: Lung [...] even without a biopsy. In fact, if abiopsy were performed and found to be negative, we would still recommend surgical resection just liana sure of the finding. This was all explained to him in detail. The risks were outlined as well. Arobotic approach will be used for the operation. 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 HENT: Negative. Eyes: Negative. Respiratory: Negative. Cardiovascular: Negative. Gastrointestinal: Negative. Endocrine: Negative. Genitourinary: Negative. Musculoskeletal: Negative. Skin: Negative. Allergic/Immunologic: Negative. Neurological: Negative. Hematological: Negative. Psychiatric/Behavioral: Negative. Physical Exam Vitals: BP 130/70 (BP Location: Left arm, Patient Position: Sitting, BP Cuff Size: Large adult) Pulse (!)47 Wt 184 lb (83.5 kg) Constitutional: General: [...] MD Cardiology: Jose Hylton MD Pulmonology: ANA Lomeli DO FACS Cardiothoracic Surgery [1] Past Medical History: Diagnosis [...] No Known Allergies [6] Current Outpatient Medications: Nsdaama-Hoxbvfmcwqj-Jjotzfdvqh (Breztri Aerosphere) 160-9-4.8 MCG/ACT aerosol, Inhale 2 Inhalations2 times daily., Disp: , Rfl: buPROPion (Zyban) 150 MG 12 hr tablet, Take 150 mg by mouth 2 times daily. Do not crush, chew, or split., Disp: , Rfl: famotidine (Pepcid) 20 MG tablet, Take 20 mg by mouth daily., Disp: , Rfl: ACCAJQWAXAS-KTLBRPJLB-QNN C-MN PO, Take 1 capsule by mouth [...] taking: Reported on 12/23/2024), Disp: , Rfl: [id number] NoteH&P reviewed. The patient was examined and there are no changes to the H&P. PFTs from [place] reviewed. FEV1 2.33/66%. DLCO 16.4/64%. Will proceed with right upper lobectomy today. Savanah Luna DO [facility] History and physical note* Sarah Luna DO - 01/10/2025 6:45 AM EDT H&P reviewed. The patient was examined and there are no changes to the H&P. PFTs from [place] reviewed. FEV1 2.33/66%. DLCO 16.4/64%. Will proceed with right upper lobectomy today. Savanah Luna DO [facility] Cardiothoracic Surgery Source Note - Sarah Luna DO - 12/23/2024 11:15 AM EDT Images from the original note were not included. [facility] CARDIOVASCULAR & THORACIC SURGERY [address] [place] [address] Dept: [phone] Dept Loc: [phone] Visit type: New Reason for Visit: Lung [...] even without a biopsy. In fact, if abiopsy were performed and found to be negative, we would still recommend surgical resection just liana sure of the finding. This was all explained to him in detail. The risks were outlined as well. Arobotic approach will be used for the operation. 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 HENT: Negative. Eyes: Negative. Respiratory: Negative. Cardiovascular: Negative. Gastrointestinal: Negative. Endocrine: Negative. Genitourinary: Negative. Musculoskeletal: Negative. Skin: Negative. Allergic/Immunologic: Negative. Neurological: Negative. Hematological: Negative. Psychiatric/Behavioral: Negative. Physical Exam Vitals: BP 130/70 (BP Location: Left arm, Patient Position: Sitting, BP Cuff Size: Large adult) Pulse (!)47 Wt 184 lb (83.5 kg) Constitutional: General: [...] Jose Hylton MD Pulmonology: ANA Lomeli, DO VALENTE Cardiothoracic Surgery [1] Past Medical History: Diagnosis [...] No Known Allergies [6] Current Outpatient Medications: Tqrtbau-Xvscwasthax-Webudkuhia (Breztri Aerosphere) 160-9-4.8 MCG/ACT aerosol, Inhale 2 Inhalations2 times daily., Disp: , Rfl: buPROPion (Zyban) 150 MG 12 hr tablet, Take 150 mg by mouth 2 times daily. Do not crush, chew, or split., Disp: , Rfl: famotidine (Pepcid) 20 MG tablet, Take 20 mg by mouth daily., Disp: , Rfl: KCXYMWEXWDR-SGAIROZIC-HBP C-MN PO, Take 1 capsule by mouth [...] 12/23/2024), Disp: , Rfl: documented in this [facility]06-11-2025 NotePatient: Rich James Procedure Information Date/Time: 01/10/25729 Procedure: ROBOTIC RIGHT UPPER LOBECTOMY (Right) Location: [facility] OR [address] [place] [address] Operating Room Surgeons: Sarah Luna, DO Relevant Problems Anesthesia (+) FIFI (obstructive [...] Problem Relation Name Age of Onset Diabetes 06-11-2025 NoteName: Rich James : 1955 (Age-69 y.o.) Date of Service: Pt seen/examined on 12/29/2024 Procedure Information Date/Time: 01/10/25 8930 Procedure: ROBOTIC RIGHT UPPER LOBECTOMY (Right) Location: [address] Operating Room Surgeons: Sarah Luna DO Chief [...] Patient states he is seen cardiology in [place], Dr Koo , tomorrow and will bridge [...] Testing Visit Labs Ordered: YES - PER [facility] PROTOCOL Cbc bmp type and screen and protime Sleep Referral Ordered: NO - ALREADY DIAGNOSED WITH FIFI AND COMPLIANT WITH CPAP Total time spent (which include face to face and non face to face encounters) : 30 minutes Toxic drug monitoring/narrow therapeutic index drug monitoring : # Drug name : coumadin # Route administered : po # Method of monitoring : INR [facility] Protocol referenced includes: 1. Anesthesia Lab Protocol Orders 2. Perioperative Cardiovascular Risk Assessment 3. Anesthesia Assessment 4. Pain Assessment and Acute Pain Service Consult (if appropriate) 5. Medical Clearance/Consult from Internal Medicine (IM[facility]) 6. Shower/Wash Order (for designated surgeries) 7. FIFI Screen and Sleep Clinic Referral (if appropriate) History Of Present Illness: 69 y.o. male who we are asked to see/evaluate by [place] [id number] for pre-operative evaluation prior to . Case: [id number] Date/Time: 01/10/25 0730 Procedure: ROBOTIC RIGHT UPPER LOBECTOMY (Right) [60022 CPT(R)] Anesthesia type: General Office notes Dr [...] evaluation. He fou (more content not included)... [facility] [id number] Telephone encounter Note* Telephone Encounter - MARCOS Us CNP - 12/24/2024 2:50 PM EDT Surg proc orders placed. MARCOS Locke CNP 12/24/24 [facility] [employer] Work Phone: 1(712) 751-342106-06-2025 Miscellaneous Notes* Telephone Encounter - MARCOS Us CNP - 12/24/2024 2:50 PM EDT Surg proc orders placed. MARCOS Locke CNP 12/24/24 * Telephone Encounter - Estela Deleon MA - 12/24/2024 10:46 AM EDT Prep for Procedure Order Request: 12/24/24 Surgeon: Jeremy Surgery/Procedure: Robotic Right upper lobectomy Diagnosis: lung nodule Plan Admit: yes PAT Appointment: yes Date if yes: 12/29/24 2:30 pm Date of Surgery/Procedure: 01/10/25 7:30 am Medications: [] Hold as directed by CTS: [x] Per PAT protocol Medication needed prescribed: [x] None [] Nasal ointment and mouth rinse [] Other: documented in this [facility]06-06-2025 NotePrep for Procedure Order Request: 12/24/24 Surgeon: Jeremy Surgery/Procedure: Robotic Right upper lobectomy Diagnosis: lung nodule Plan Admit: yes PAT Appointment: yes Date if yes: 12/29/24 2:30 pm Date of Surgery/Procedure: 01/10/25 7:30 am Medications: [] Hold as directed by CTS: [x] Per PAT protocol Medication needed prescribed: [x] None [] Nasal ointment and mouth rinse [] Other: [facility]06-06-2025 Telephone encounter Note* Telephone Encounter - Estela Deleon MA - 12/24/2024 10:46 AM EDT Prep for Procedure Order Request: 12/24/24 Surgeon: Jeremy Surgery/Procedure: Robotic Right upper lobectomy Diagnosis: lung nodule Plan Admit: yes PAT Appointment: yes Date if yes: 12/29/24 2:30 pm Date of Surgery/Procedure: 01/10/25 7:30 am Medications: [] Hold as directed by CTS: [x] Per PAT protocol Medication needed prescribed: [x] None [] Nasal ointment and mouth rinse [] Other: [facility] [id number] History of Present illness Narrative* Sarah Luna DO - 12/23/2024 11:15 AM EDT Images from the original note were not included. [facility] CARDIOVASCULAR & THORACIC SURGERY [address] [facility] [address] Dept: [phone] Dept Loc: [phone] Visit type: New Reason for Visit: Lung [...] even without a biopsy. In fact, if abiopsy were performed and found to be negative, we would still recommend surgical resection just liana sure of the finding. This was all explained to him in detail. The risks were outlined as well. Arobotic approach will be used for the operation. 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 HENT: Negative. Eyes: Negative. Respiratory: Negative. Cardiovascular: Negative. Gastrointestinal: Negative. Endocrine: Negative. Genitourinary: Negative. Musculoskeletal: Negative. Skin: Negative. Allergic/Immunologic: Negative. Neurological: Negative. Hematological: Negative. Psychiatric/Behavioral: Negative. Physical Exam Vitals: BP 130/70 (BP Location: Left arm, Patient Position: Sitting, BP Cuff Size: Large adult) Pulse (!)47 Wt 184 lb (83.5 kg) Constitutional: General: [...] MD Cardiology: Jose Hylton MD Pulmonology: ANA Lomeli DO FACS Cardiothoracic Surgery [1] Past Medical History: Diagnosis [...] No Known Allergies [6] Current Outpatient Medications: Xuodogx-Lcmjixwgsmp-Qvoxbfrlji (Breztri Aerosphere) 160-9-4.8 MCG/ACT aerosol, Inhale 2 Inhalations2 times daily., Disp: , Rfl: buPROPion (Zyban) 150 MG 12 hr tablet, Take 150 mg by mouth 2 times daily. 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 Social History[4] Allergies Allergies[5] Medications [...] Low Dose Lung Screening more content not included)...[facility] Evaluation note* Diagnosis Onset Date Resolution Status Admit Date Right upper lobe pulmonary nodule ac [place] December 02, 2024 7:47am FIFI (obstructive sleep apnea) chroni c December 02, 2024 7:47am Smoking greater than 40 pack years chronic December 02, 2024 7 :47am Stage 1 mild COPD by GOLD classification chronic December 02, 2024 7 :47am Right upper lobe pulmonary nodule ac [place] December 10, 2024 8:37am FIFI (obstructive sleep apnea) chroni c December 10, 2024 8:37am Smoking greater than 40 pack years chronic December 10, 2024 8 :37am Stage 1 mild COPD by GOLD classification chronic December 10, 2024 8 :37am [facility] Work Phone: 1(578) 838-691305-15-2025 Evaluation note* Diagnosis Onset Date Resolution Status Admit Date Right upper lobe pulmonary nodule acute December 02, 2024 7 :47am FIFI (obstructive sleep apnea) chroni c December 02, 2024 7:47am Smoking greater than 40 pack years chronic December 02, 2024 7 :47am Stage 1 mild COPD by GOLD classification chronic December 02, 2024 7 :47am Right upper lobe pulmonary nodule acute December 10, 2024 8 :37am FIFI (obstructive sleep apnea) chroni c December 10, 2024 8:37am Smoking greater than 40 pack years chronic December 10, 2024 8 :37am Stage 1 mild COPD by GOLD classification chronic December 10, 2024 8 :37am Acute pharyngitis acute March 04, 2025 8:08am Dysphagia acute March 04, 2 025 6:13pm [facility] Work Phone: 1(977) 856-450010-16-2023 NoteHNO ID: [id number] Author: Aylin Mathew MD Service: ? 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 He denies any symptoms of recurrent AF, angina, dizziness, lightheadedness, near-syncope, shortness of breath, worsening activity tolerance, or constitutional symptoms. He reports this is the best he has felt in years. Patient is compliant with his Toprol-XL and Coumadin regimens. He is a [id number] of 3 secondary to age and DVT. [...] regimens. CT of chest was performed at [place] and showed no concerning findings. Surface echo and Holter monitor results currently pending. 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 We discussed warfarin as [...] I addressed their questions. documented in this encounterMorrow County Hospital10-16-2023 History of Present illness Narrative* Aylin Mathew MD - 05/05/2023 8:14 AM EDT Images from the original note were not included. 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 He denies any symptoms of recurrent AF, angina, dizziness, lightheadedness, near-syncope, shortness of breath, worsening activity tolerance, or constitutional symptoms. He reports this is the best he has felt in years. Patient is compliant with his Toprol-XL and Coumadin regimens. He is a [id number]-SPTm of 3 secondary to age and DVT. [...] regimens. CT of chest was performed at [place] and showed no concerning findings. 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[employer], Does fairly strenuous activity on job, Smokes [...] of lower leg (HCC) Right 06/01/2019 Coagulopathy ([facility]) 04/01/2005 Protein C Deficiency GENERAL OSTEOARTHROSIS [...] tablet^Rfl: 3 [employer] (COMPRESS[employer] STOCKINGS) [facility] Misc^Use as directed (Pressure 30-40mmHg)to Right Leg Dx [...] BP Position BP Site BP Cuff Size 05/05/23 0754 -- -- 115/66 52 Sitting Left Arm Regular Adult EKG 05/05/23 sinus bradycardia 40 bpm MN 166 QRS 118 right bundle branch block [...] MD This note was partially generated using [employer] voice recognition system. documented in this encounterMorrow County Hospital07-10-2023 NoteHNO ID: [id number] Author: Nikita Ortiz APRN.BONDERIZER Service: ? Author Type: Nurse Practitioner Type: Progress Notes Filed: 01/27/2023 9:09 AM Note Text: [facility] General Cardiology Electrophysiology PRIMARY CARE PHYSICIAN: Marion Feng [address] [address] CHIEF COMPLAINT: Persistent atrial fibrillation. HISTORY OF PRESENT ILLNESS (copied from my previous office note on 11/05/2022): Rich is a pleasant 66-year-old gentleman who presents today for 3-month follow-up status post radiofrequency PVI with Dr. Mathew on 08/05/2022. Overall patient reports he has been feeling very well lately. 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 CT of chest was performed at [place] and showed no concerning findings. Surface echo and Holter monitor results currently pending. Agreeable to follow-up in 3 months. Interval History: Rich is a pleasant 67-year-old gentleman who presents today for follow-up regarding history of persistent atrial fibrillation. Overall patient reports feeling excellent. 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 He denies any symptoms of recurrent AF, angina, dizziness, lightheadedness, near-syncope, shortness of breath, worsening activity tolerance, or constitutional symptoms. He reports this is the best he has felt in years. Patient is compliant with his Toprol-XL and Coumadin regimens. He is a [id number] of 3 secondary to age and DVT. [...] as instructed once felix (more content not included)...[facility]07-10-2023 Nurse Note* Vicky Curtis MA - 01/27/2023 8:39 AM EDT No cardiac complaints today. Vicky Curtis MA documented in this encounterMorrow County Hospital07-10-2023 History of Present illness Narrative* Nikita Ortiz APRN.BLAYNE - 01/27/2023 8:30 AM EDT [facility] Cardiology Electrophysiology PRIMARY CARE PHYSICIAN: Marion Feng [address] [address] CHIEF COMPLAINT: Persistent atrial fibrillation. HISTORY OF PRESENT ILLNESS (copied from my previous office note on 11/05/2022): Rich is a pleasant 66-year-old gentleman who presents today for 3-month follow-up status post radiofrequency PVI with Dr. Mathew on 08/05/2022. Overall patient reports he has been feeling very well lately. 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 CT of chest was performed at [place] and showed no concerning findings. Surface echo and Holter monitor results currently pending. Agreeable to follow-up in 3 months. Interval History: Rich is a pleasant 67-year-old gentleman who presents today for follow-up regarding history of persistent atrial fibrillation. Overall patient reports feeling excellent. 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 He denies any symptoms of recurrent AF, angina, dizziness, lightheadedness, near-syncope, shortness of breath, worsening activity tolerance, or constitutional symptoms. He reports this is the best he has felt in years. Patient is compliant with his Toprol-XL and Coumadin regimens. He is a [id number] of 3 secondary to age and DVT. [...] Bottle^Rfl: 11 [facility]isc[facility] Medical [facility] STOCKINGS[facility] as directed (Pressure 30-40mmHg)to Right Leg Dx [...] a ventricular rate of 46. Incomplete RBBB. MN 148. QRS 108. QT/QTc 488/427. Echo 11/05/2022 [...] October 2022 showed ejection fraction of 62%. [id number] of 3 secondary to age and history [...] . Nikita Ortiz APRN.BLAYNE documented in this encounterMorrow County Hospital05-03-2023 Miscellaneous Notes* Telephone Encounter - Georgina [...] cause of the elevated heart rates. Georgina Dudley, RN documented in this encounterMorrow County Hospital05-02-2023 Miscellaneous Notes* Addendum Note - Aylin [...] stress test Thanks Aylin documented in this encounterMorrow County Hospital04-20-2023 Miscellaneous Notes* Telephone Encounter - Nilsa [...] shows normal Ejection fraction documented in this encounterMorrow County Hospital04-18-2023 NoteHNO ID: [id number] Author: Nikita Ortiz APRN.BONDERIZER Service: ? Author Type: Nurse Practitioner Type: Progress Notes Filed: 11/05/2022 10:33 AM Note Text: [facility] General Cardiology Electrophysiology PRIMARY CARE PHYSICIAN: Marion Feng [address] [address] CHIEF COMPLAINT: 3 months post radiofrequency PVI [...] well lately. 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 CT of chest was performed at [place] and showed no concerning findings. Surface echo [...] Brother other (Pulmonary Embo (more content not included)...[facility] 11-05-2022 NoteHNO ID: [id number] Author: Neelima Lozano Wet Crown Blocking Operator Service: ? Author Type: Wet Crown Blocking Operator Type: Progress Notes Filed: 11/05/2022 9:20 AM Note Text: Holter monitor applied. Pt verbalized understanding of monitor use / diary.[facility]04-18-2023 History of Present illness Narrative* Neelima Lozano Wet Crown Blocking Operator - 11/05/2022 9:19 AM EDT Holter monitor applied. Pt verbalized understanding of monitor use / diary. documented in this encounterMorrow County Hospital01-17-2023 NoteHNO ID: [id number] Author: BRYAN Good Service: Care Management Author Type: Complaint Evaluation Officer Type: Care Mgt Initial Assessment Filed: 08/06/2022 10:12 AM Note Text: CARE MANAGEMENT: ASSESSMENT AND DISCHARGE PLAN SERVICE DATE: August 06, 2022 SERVICE TIME: 10:09 AM PRIMARY CARE PHYSICIAN: Marion Feng MD Primary Contact: Extended Emergency Contact Information Primary Emergency Contact: Candace James Address: [address] [place] [address] Mobile Relation: Spouse ADMISSION STATUS: Extended Recovery [...] of your medications? No ASSESSMENT AND PLAN: RODRIGUE Reviewed chart. Patient was originally diagnosed with atrial fibrillation back in December 2018 note reports patient is at Very low [...] 06, 2022 TIME: 10:09 AM CONTACT #: [id number]01-16-2023 NoteHNO ID: [id number] Author: Amilcar York APRN.CRNA Service: Anesthesiology Author Type: Nurse Supervisor Blueprinting [employer] Photoc[employer] Type: Anesthesia Procedure Notes Filed: 08/05/2022 9:36 AM Note Text: ANESTHESIOLOGY PROCEDURE NOTE Airway General Information Procedure Start Time/Medication Administration: 08/05/2022 9:18 AM Patient location during procedure: OR Patient identity confirmed: arm band Staffing SUGAR CHIPPER MACHINE OPERATOR: Amilcar York APRN.SUGAR CHIPPER MACHINE OPERATOR Performed by: JOYCELYN Indications and Patient Condition Indications for airway [...] attempts at approach: 1 SIGNATURE: Madi York APRN.SUGAR CHIPPER MACHINE OPERATOR PATIENT NAME: Rich James DATE: August 05, 2022 TIME: 9:35 AM CSN: [id number]20[facility] Miscellaneous Notes* Telephone Encounter - Carmen [...] before the procedure. Patient will need a team driver when released from the hospital. You will stayovernight for observation. Patient should continue to take medications as prescribed the morning ofthe procedure with just a sip of water unless otherwise instructed. Pt verbalized understanding of the above instructions Pt is getting weekly INR's will continue to monitor. Kianna Craig RN documented in this encounterMorrow County Hospital12-01-2022 Miscellaneous Notes* Telephone Encounter - Aylin [...] anticoagulated. Aylin Mathew MD documented in this encounterMorrow County Hospital10-26-2022 NoteHNO ID: [id number] Author: Aylin Mahtew MD Service: ? Author Type: Physician Type: Progress Notes Filed: 05/15/2022 3:25 PM Note Text: [facility] [place] [facility] SECTION OF CARDIAC PACING and ELECTROPHYSIOLOGY OUTPATIENT VISIT DATE May 15, 2022 OUTPATIENT VISIT TYPE CONSULTATION PRIMARY CARE PHYSICIAN: Magen Ayon [address] [place] [address] REFERRING PHYSICIAN: No referring provider defined for this encounter. 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 This could be done at [place] with Dr. Hylton. If this results in [...] healthcare provider's instructions for treatment. Developed by [employer]. Published by [employer]. Copyright 2014 [employer] and/or one of its subsidiaries. All rights reserved. [facility] History of Present illness Narrative* Aylin Mathew MD - 05/15/2022 2:37 PM EDT Images from the original note were not included. [facility] SECTION OF CARDIAC PACING and ELECTROPHYSIOLOGY OUTPATIENT VISIT DATE May 15, 2022 OUTPATIENT VISIT TYPE CONSULTATION PRIMARY CARE PHYSICIAN: Magen Ayon [address] [place] [address] REFERRING PHYSICIAN: No referring provider defined for this encounter. 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 This could be done at [place] with Dr. Hylton. If this results in [...] months. Aylin Mathew MD [facility] Nurse Note* Keesha Vargas MA - 05/15/2022 2:30 PM EDT Patient denies any cardiac issues or symptoms. [facility] Evaluation note* Diagnosis Onset Date Resolution [...] resolved 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 chronic Paroxysmal atrial fibrillation chronic [facility] Work Phone: [phone]) 855-777911-12-2013 History of Past illness Narrative* Problem Noted Date Resolved Date 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 Dave Nair ( [facility]) 07.09.2011 ( ball and socket, socket repair) Embolism and thrombosis 09/30/2005 02/18/20 20 Overview: Right leg documented as of this encounter (statuses as of 05/15/2022) [facility] History of Past illness Narrative* Problem Noted Date Resolved Date 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 Dave aNir ( [facility]) 07.09.2011 ( ball and socket, socket repair) Embolism and thrombosis 09/30/2005 02/18/20 20 Overview: Right leg documented as of this encounter (statuses as of 06/20/2022) [facility] History of Past illness Narrative* Problem Noted Date Resolved Date 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 Dave Nair ( [facility]) 07.09.2011 ( ball and socket, socket repair) Embolism and thrombosis 09/30/2005 02/18/20 20 Overview: Right leg documented as of this encounter (statuses as of 07/08/2022) [facility] History of Past illness Narrative* Problem Noted Date Resolved Date 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 Dave Nair ( [facility]) 07.09.2011 ( ball and socket, socket repair) Embolism and thrombosis 09/30/2005 02/18/20 Overview: Right leg documented as of this encounter (statuses as of 11/08/2022) [facility] of Past illness Narrative* Problem Noted Date Resolved Date 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 Dave Nair ( [facility]) 07.09.2011 ( ball and socket, socket repair) Embolism and thrombosis 09/30/2005 02/18/20 20 Overview: Right leg documented as of this encounter (statuses as of 11/20/2022) [facility] of Past illness Narrative* Problem Noted Date Resolved Date 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 Dave Nair ( [facility]) 07.09.2011 ( ball and socket, socket repair) Embolism and thrombosis 09/30/2005 02/18/20 Overview: Right leg documented as of this encounter (statuses as of 11/20/2022) [facility] of [facility] illness Narrative* Problem Noted Date Diagnosed Date Resolved Date Avascular necrosis of lunate 06/01/2013 11/10/2013 Overview: Right wrist. History of total hip replacement 07/23/2011 05/08/2012 Overview: Done by Dr. Dave Nair ( [facility]) 07.09.2011 ( ball and socket, socket repair) Embolism and thrombosis 09/30/200501/20 Overview: Right leg documented as of this encounter (statuses as of 01/27/2023) [facility] of Past illness Narrative* Problem Noted Date Diagnosed Date Resolved Date Avascular necrosis of lunate 06/01/2013 11/10/2013 Overview: Right wrist. History of total hip replacement 07/23/2011 05/08/2012 Overview: Done by Dr. Dave Nair ( [facility]) 07.09.2011 ( ball and socket, socket repair) Embolism and thrombosis 09/30/200501/20 Overview: Right leg documented as of this encounter (statuses as of 05/05/2023) [facility] of Past illness Narrative* Problem Noted Date Diagnosed Date Resolved Date Avascular necrosis of lunate 06/01/2013 11/10/2013 Overview: Right wrist. History of total hip replacement 07/23/2011 05/08/2012 Overview: Done by Dr. Dave Nair ( [facility]) 07.09.2011 ( ball and socket, socket repair) Embolism and thrombosis 09/30/200501/20 Overview: Right leg documented as of this encounter (statuses as of 11/06/2023) [facility] summary Author Bryan Sesay [facility] Note Date/Time March 05, 2025 11 :35am [facility] Medical Records Department [address] [place] [address] Instructions for Home/Discharge Instructions 03/05/25 1129 MR#: [id number] Acct: [id number] Name: RICH JAMES I Rep #:[id number] : 1955 69 From: Bryan Pike PCP: Dr. Marion Feng MD Status:ADM IN Discharge Instructions DC O2, CPAP, BIPAP needs Home O2 Discharge instructions: No Dressing / Incision Discharge Activity: Return to Normal Activity Weight Bearing Status: Weight bearing as tolerated Dressing / Incision Call your doctor if you observe: Fever of 101 or Higher, Coldness, Increased Pain, Numbness or Tingling, Change in Color, Inability to urinate, Inability to have a bowel movement, Shortness of breath, Dizziness, Fainting spells, Swellingin the ankles, Chest pain, Prolonged hiccupping, Increased palpitations (irregular heartbeat) and Calf discomfort Follow Up Care When: IN 2 WEEKS Test Results: Test results from this visit will be discussed in further detail at your follow- up appointment, if applicable. Discharge Plan Admission Admit Date/Time: 03/04/25 18:13 Primary Reason for Your Visit: Cervical dysphagia/sore throat possible undiagnosed viral disease Attending Provider: Bryan Sesay Primary Care Provider: Marion Feng Consulting Providers: Donna Cedeno Discharge Orders/Prescriptions Prescriptions: Continued fluticasone propionate [Flonase Allergy Relief] 50 mcg/actuation spray,suspension 1 spray INTRANASAL DAILY Rx Instructions: administer into each nostril alzujhkyjfa-gijyyqyam-zcm C-Mn [Glucosamine Chondroitin MaxStr] 500-400 mg capsule 2 cap PO DAILY famotidine 20 mg tablet 20 mg PO DAILY Qty: 90 3RF loratadine [Claritin] 10 mg tablet 10 mg PO DAILY Breztri Aerosphere 160-9-4.8 mcg/actuation HFA aerosol inhaler 2 inh inhalation BID Qty: 3 3RF Chloraseptic Max 15-10 mg lozenge 1 winnie mucous membrane .4 times daily PRN (Reason: sore throat) Qty: 15 0RF warfarin 5 mg tablet See Rx Instructions PO .COMPLEX Protocol: Dose Management Condition: Friday Dose/Route: 5 mg Instruction: 1 x 5 mg tablet Condition: Friday Dose/Route: 5 mg Instruction: 1 x 5 mg tablet Condition: Friday Dose/Route: 5 mg Instruction: 1 x 5 mg tablet Condition: Friday Dose/Route: 5 mg Instruction: 1 x 5 mg tablet Condition: Dose/Route: 2.5 mg Instruction: 0.5 x 5 mg tablets Condition: Friday Dose/Route: 5 mg Instruction: 1 x 5 mg tablet Condition: Friday Dose/Route: 5 mg Instruction: 1 x 5 mg tablet Protocol Text: Adjustment Start Date: Friday01/17/25 INR Value: 2.1 INR Date: 01/17/25 Recheck Date: 02/07/25 Rx Instructions: 5 MG FRIDAY, FRIDAY, FRIDAY, FRIDAY, FRIDAY, FRIDAY; FRIDAY TAKE 2.5 MG - please give pt extra tablets as dose changes often, please give pt extra tablets as dose changes often simvastatin 20 mg tablet 20 mg PO QHS Qty: 90 3RF metoprolol succinate 25 mg tablet extended release 24 hr 25 mg PO DAILY Qty: 90 3RF Referrals / Follow Up: Marion Feng MD [Primary Care Provider] - Within 2 Weeks Disposition Disposition (needs filled in before D/C Order can be placed): Home, Self Care 03/05/251134<Electronically signed by Bryan Sesay MD>Bryan Sesay MD CC: Dr. Marion Feng MD; Dr. Donna Cedeno MD ~ Signed [facility] Work Phone: Discharge summary Author Bryan Sesay [facility] Note Date/Time March 05, 2025 11 :39am [facility] Medical Records Department [address] [place] [address] Discharge Summary 03/05/251134 MR#: [id number] Acct: [id number] Name: RICH JAMES I Rep #:[id number] : 1955 69 From: Bryan Pike PCP: Dr. Marion Feng MD Status:ADM IN Location: [place] [address]- Providers Date of Admission: 03/04/25 Primary Care Physician: Dr. Marion Feng MD Reason For Visit: FACIAL AND NECK EDEMA Diagnosis Discharge Diagnosis (1) Dysphagia: Status: Acute Code(s): R13.10 - Dysphagia, unspecified Plan 69-year-old deyanira was admitted with 3 days of sore throat and cough, chills and sweats along with bodyaches, managed with Tylenol but has dysphagia. Not able to keep the fluid down. Patient did not tolerate food. Denies chest pain or shortness of breath. No acute concern for recent esophageal food impaction. Negative stress test in the urgent care # Soft tissue swelling of oropharynx, hypopharynx, epiglottic folds, cervical dysphagia probably due to viral syndrome - No sign of fluid collection or abscess and no airway compromise - Patient given IV fluids, Benadryl, Solu-Medrol and Pepcid 03/05: It seems patient had viral syndrome with mild fever chills, sore throat and bodyaches. In the morning, he can swallow liquid and he swallowed his pills. Diet advanced from full diet to transitional diet. He tolerated well. He got the treatment as mentioned above. He has Chloraseptic lozenges and spraygiven by urgent care. Continued #Hx COPD -Continue home inhalers -Incentive spirometer #Paroxysmal Atrial Fibrillation -Rate control: On oral metoprolol, can consider IV metoprolol if patient will have prolonged n.p.o. -Anticoagulation: Coumadin, resume when patient cleared to tolerate p.o., INR presently therapeutic 03/05: INR is therapeutic #Depression/anxiety -Continue home medications when safe to do so Patient was admitted as inpatient for dysphagia with inflammation of the oropharynx/hypopharynx and epiglottic folds but improved with the IV steroid much sooner than expected at the time of admission therefore discharged. Medications at Discharge Home Medications fluticasone propionate 50 mcg/actuation nasal spray,suspension (Flonase Allergy Relief) 1 spray intranasal DAILY Allergies 02/29/20 rbxecwpqdcu-fchslyjyq-hfd C-Mn 500 mg-400 mg capsule (Glucosamine Chondroitin Maximum Strength) 2 cap PO DAILY Joints releif 02/29/20 famotidine 20 mg tablet 20 mg PO DAILY GERD #90 tabs 11/28/21 loratadine 10 mg tablet (Claritin) 10 mg PO DAILY Allergies 06/12/22 simvastatin 20 mg tablet 20 mg PO QHS Cholesterol #90 tabs 06/29/24 budesonide 160 mcg-glycopyr 9 mcg-formot 4.8 mcg/actuation HFA inhaler (Breztri Aerosphere) 2 inh inhalation BID #3 ea 12/02/24 metoprolol succinate 25 mg tablet,extended release 24 hr 25 mg PO DAILY BP and Heart rate control #90 tabs 12/23/24 benzocaine 15 mg-menthol 10 mg lozenges (Chloraseptic Max) 1 winnie mucous membrane.4 times daily PRN sore throat #15 ea 03/04/25 warfarin 5 mg tablet See Rx Instructions PO .COMPLEX Blood thinner 03/04/25 Hospital Course Summary of Care Provided Hospital Course: Laboratory Results 03/04/25 14:56: WBC 9.2, RBC 4.60, Hgb 14.6, Hct 42.4, MCV 92.2, MCH 31.7, MCHC 34.4, RDW Std Deviation 48.4 H, RDW Coeff of Shailesh 14.3, Plt Count 203, MPV 9.8, Immature Gran % (Auto) 0.200, Neut % (Auto) 72.9 H, Lymph % (Auto) 15.3 L, Jenkins % (Auto) 10.6 H, Eos % (Auto) 0.5, Baso % (Auto) 0.5, Absolute Neuts (auto) 6.7,Absolute Lymphs (auto) 1.40, Nucleated RBC % 0, PT 24.8 H, INR 2.2, Sodium 140, Potassium 3.7, Chloride 104, Carbon Dioxide 22.3, Anion Gap 14, BUN 14, Creatinine 1.05, Estim Creat Clear Calc 69.52, Est GFR (MDRD) Non-Af 77, BUN/Creatinine Ratio 13.4, Glucose 97, Calcium 9.1 03/05/25 06:58: WBC 8.0, RBC 4.12 L, Hgb 13.0, Hct 37.4 L, MCV 90.8, MCH 31.6, MCHC 34.8, RDW Std Deviation 46.9 H, RDW Coeff of Shailesh 14.1, Plt Count 179, MPV 9.7, Immature Gran % (Auto) 0.200, Neut % (Auto) 88.6 H, Lymph % (Auto) 8.1 L, Jenkins % (Auto) 3.0, Eos % (Auto) 0.0, Baso % (Auto) 0.1, Absolute Neuts (auto) 7.1, Absolute Lymphs (auto) 0.65 L, Nucleated RBC % 0, PT 23.9 H, INR 2.1, Sodium 141, Potassium 3.9, Chloride 109 H, Carbon Dioxide 20.4 L, Anion Gap 12, BUN 15, Creatinine 0.82, Estim Creat Clear Calc 86.22, Est GFR (MDRD) Non-Af 96,BUN/Creatinine Ratio 18.7, Glucose 154 H, Calcium 8.2 Physical Exam Narrative Seen and examined. Denies sore throat. Can swallow his clear liquid diet and swallow pills. Physical exam: General: Alert, Oriented x3, Cooperative HEENT: Atraumatic, PERRLA, EOMI, Normocephalic. Oral: No Gingival or Mucosal Lesions/ Ulcerations. Erythema over posterior pharynx has resolved. No mass/ulcer noticed over floor of mouth, lateral or posterior pharyngeal wall. Base of tongue was visualized. Neck: Supple, No JVD, Negative Carotid Bruits Chest wall/Lungs: Air entry diminished in bilateral lung bases. No crepitation/rhonchi Cardiovascular: Regular rate and rhythm, Normal S1,S2, No M/G/R Abdomen: Bowel Sounds Present, Soft, Non Tender, Non-Distended : No dysuria. No renal angle tenderness. No suprapubic tenderness. Extremities: No edema, Capillary Refill Less than 3 Seconds Skin: No rashes, No breakdown Musculoskeletal: No Tenderness to Palpation of Joints or Extremities. Mild bilateral knee arthritis. Neurological: Cranial nerves II-XII grossly intact, DTR 2+/4. No acute focal neurological deficit. Psych/Mental Status: Normal Affect, Appropriate. Weight / BMI Weight Weight: 180 lb 8.937 oz Body Mass Index (BMI) 26.6 ABG / Lab / Microbiology Data 03/05/25 06:58 03/05/25 06:58 Laboratory: Laboratory Results - last 24 hr 03/04/25 14:56: WBC 9.2, RBC 4.60, Hgb 14.6, Hct 42.4, MCV 92.2, MCH 31.7, MCHC 34.4, RDW Std Deviation 48.4 H, RDW Coeff of Shailesh 14.3, Plt Count 203, MPV 9.8, Immature Gran % (Auto) 0.200, Neut % (Auto) 72.9 H, Lymph % (Auto) 15.3 L, Jenkins % (Auto) 10.6 H, Eos % (Auto) 0.5, Baso % (Auto) 0.5, Absolute Neuts (auto) 6.7,Absolute Lymphs (auto) 1.40, Nucleated RBC % 0, PT 24.8 H, INR 2.2, Sodium 140, Potassium 3.7, Chloride 104, Carbon Dioxide 22.3, Anion Gap 14, BUN 14, Creatinine 1.05, Estim Creat Clear Calc 69.52, Est GFR (MDRD) Non-Af 77, BUN/Creatinine Ratio 13.4, Glucose 97, Calcium 9.1 03/05/25 06:58: WBC 8.0, RBC 4.12 L, Hgb 13.0, Hct 37.4 L, MCV 90.8, MCH 31.6, MCHC 34.8, RDW Std Deviation 46.9 H, RDW Coeff of Shailesh 14.1, Plt Count 179, MPV 9.7, Immature Gran % (Auto) 0.200, Neut % (Auto) 88.6 H, Lymph % (Auto) 8.1 L, Jenkins % (Auto) 3.0, Eos % (Auto) 0.0, Baso % (Auto) 0.1, Absolute Neuts (auto) 7.1, Absolute Lymphs (auto) 0.65 L, Nucleated RBC % 0, PT 23.9 H, INR 2.1, Sodium 141, Potassium 3.9, Chloride 109 H, Carbon Dioxide 20.4 L, Anion Gap 12, BUN 15, Creatinine 0.82, Estim Creat Clear Calc 86.22, Est GFR (MDRD) Non-Af 96,BUN/Creatinine Ratio 18.7, Glucose 154 H, Calcium 8.2 Radiography Diagnostic Testing: Radiology Impression Soft Tissue Neck CT 03/04/25 14:39 IMPRESSION: 1. No abscess or collection. No lymphadenopathy. 2. Edema of the soft tissues of the oropharynx, hypopharynx extending down to false cords, aryepiglottic folds and arytenoids. Airway is not compromised at this time. Consider infection, inflammation, angioedema. 3. Left vocal cord paralysis. The findings and impression of this report were called directly to Jennifer Goel at 4 p.m. Eastern standard time. Reading Location: [facility] Soft Tissue Neck X-Ray 03/04/25 14:40 IMPRESSION: Degenerative changes cervical spine. Unremarkable appearance of the soft tissues. Reading Location: [facility] D/C Instructions Weight Bearing Status: Weight bearing as tolerated Call your doctor if you observe: Fever of 101 or Higher, Coldness, Increased Pain, Numbness or Tingling, Change in Color, Inability to urinate, Inability to have a bowel movement, Shortness of breath, Dizziness, Fainting spells, Swellingin the ankles, Chest pain, Prolonged hiccupping, Increased palpitations (irregular heartbeat) and Calf discomfort DC O2, CPAP, BIPAP Needs Home O2 Discharge instructions: No When: IN 2 WEEKS Meaningful Use Info Meaningful Use Meaningful Use Diagnoses (Choose all that apply): None applicable Discharge Plan Admission Admit Date/Time: 03/04/25 18:13 Primary Reason for Your Visit: Cervical dysphagia/sore throat possible undiagnosed viral disease Attending Provider: Bryan Sesay Primary Care Provider: Marion Feng Consulting Providers: Donna Cedeno Discharge Orders/Prescriptions Prescriptions: Continued fluticasone propionate [Flonase Allergy Relief] 50 mcg/actuation spray,suspension 1 spray INTRANASAL DAILY Rx Instructions: administer into each nostril rlnbiigrdwv-oofeavgeq-noh C-Mn [Glucosamine Chondroitin MaxStr] 500-400 mg capsule 2 cap PO DAILY famotidine 20 mg tablet 20 mg PO DAILY Qty: 90 3RF loratadine [Claritin] 10 mg tablet 10 mg PO DAILY Breztri Aerosphere 160-9-4.8 mcg/actuation HFA aerosol inhaler 2 inh inhalation BID Qty: 3 3RF Chloraseptic Max 15-10 mg lozenge 1 winnie mucous membrane .4 times daily PRN (Reason: sore throat) Qty: 15 0RF warfarin 5 mg tablet See Rx Instructions PO .COMPLEX Protocol: Dose Management Condition: Friday Dose/Route: 5 mg Instruction: 1 x 5 mg tablet Condition: Friday Dose/Route: 5 mg Instruction: 1 x 5 mg tablet Condition: Friday Dose/Route: 5 mg Instruction: 1 x 5 mg tablet Condition: Friday Dose/Route: 5 mg Instruction: 1 x 5 mg tablet Condition: Dose/Route: 2.5 mg Instruction: 0.5 x 5 mg tablets Condition: Friday Dose/Route: 5 mg Instruction: 1 x 5 mg tablet Condition: Friday Dose/Route: 5 mg Instruction: 1 x 5 mg tablet Protocol Text: Adjustment Start Date: Friday01/17/25 INR Value: 2.1 INR Date: 01/17/25 Recheck Date: 02/07/25 Rx Instructions: 5 MG FRIDAY, FRIDAY, FRIDAY, FRIDAY, FRIDAY, FRIDAY; FRIDAY TAKE 2.5 MG - please give pt extra tablets as dose changes often, please give pt extra tablets as dose changes often simvastatin 20 mg tablet 20 mg PO QHS Qty: 90 3RF metoprolol succinate 25 mg tablet extended release 24 hr 25 mg PO DAILY Qty: 90 3RF Referrals / Follow Up: Marion Feng MD [Primary Care Provider] - Within 2 Weeks Disposition Disposition (needs filled in before D/C Order can be placed): Home, Self Care Charges/Coding Visit Charges Inpatient E&M: 16310 Disch Hosp >30min 03/05/25 1139 <Electronically signed by Bryan Sesay MD> Cosigner Signature (if applicable): CC: Dr. Marion Feng MD; Dr. Bryan Sesay MD~ Signed [facility] Work Phone: Evaluation note* Diagnosis Onset Date Resolution Status 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 chronic Paroxysmal atrial fibrillation chronic Lung nodule acute Stage 1 mild COPD by GOLD classification acute [facility] Work Phone: Evaluation note* Diagnosis Onset [...] Smoking greater than 40 pack years chronic [facility] Work Phone: Evaluation note* Diagnosis Onset [...] by GOLD classification acute Lung nodule resolved [facility] Work Phone: Evaluation note* Diagnosis Onset Date Resolution Status Stage 1 mild COPD by GOLD classification acute Lung nodule resolved 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 chronic Paroxysmal atrial fibrillation chronic 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 chronic Paroxysmal atrial fibrillation chronic Atrial fibrillation, permanent acute [facility] Work Phone: evaluation note* Diagnosis Persistent atrial fibrillation (HCC)- Primary Atrial fibrillation [facility]* Diagnosis Onset Date Resolution Status 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 chronic Paroxysmal atrial fibrillation chronic 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 chronic Paroxysmal atrial fibrillation chronic Atrial fibrillation, permanent acute [facility] Work Phone: Evaluation note* Diagnosis Onset Date Resolution Status 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 chronic Paroxysmal atrial fibrillation chronic 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 chronic Paroxysmal atrial fibrillation chronic Atrial fibrillation, permanent acute Atrial fibrillation, permanent acute Paroxysmal atrial fibrillation chronic [facility] Work Phone: Evaluation note* Diagnosis Persistent atrial fibrillation (HCC)- Primary Atrial fibrillation [facility]* Diagnosis Onset Date Resolution Status Atrial fibrillation, permanent acute Paroxysmal atrial fibrillation chronic Acute URI acute Atrial fibrillation, permanent acute Stage 1 mild COPD by GOLD classification acute Vitamin D deficiency acute 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, chronic 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 Protein C deficiency chronic Smoking greater than 40 pack years chronic 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 chronic Paroxysmal atrial fibrillation chronic Stage 1 mild COPD by GOLD classification acute Paroxysmal atrial fibrillation chronic Lung nodule resolved [facility] Work Phone: Evaluation note* Diagnosis Onset Date Resolution Status 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 chronic Paroxysmal atrial fibrillation chronic Stage 1 mild COPD by GOLD classification acute Paroxysmal atrial fibrillation chronic Lung nodule resolved 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 Paroxysmal atrial fibrillation [facility] Work Phone: Evaluation note* Diagnosis Dyspnea, unspecified type- Primary Regular wide QRS complex tachycardia [facility] Diagnosis Onset Date Resolution Status 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 chronic longterm current use of anticoagulant chronic Paroxysmal atrial fibrillation chronic Skin lesion acute Stage 1 mild COPD by GOLD classification acute Vitamin D deficiency acute 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 chronic longterm current use of anticoagulant chronic [facility] Work Phone: evaluation note* Diagnosis Onset Date Resolution Status 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 chronic longterm current use of anticoagulant chronic Paroxysmal atrial fibrillation chronic Skin lesion acute Stage 1 mild COPD by GOLD classification acute Vitamin D deficiency acute 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 chronic longterm current use of anticoagulant chronic Stage 1 mild COPD by GOLD classification acute Paroxysmal atrial fibrillation chronic [facility] Work Phone: evaluation note* Diagnosis Persistent atrial fibrillation (HCC)- Primary Atrial fibrillation Status post catheter ablation of atrial fibrillation Sinus bradycardia Other specified cardiac dysrhythmias Obesity, Class I, BMI 30-34.9 Obesity, unspecified At risk for stroke Other specified personal history presenting hazards to health documented in this encounter [facility]* Diagnosis Onset Date Resolution Status Stage 1 mild COPD by GOLD classification acute Paroxysmal atrial fibrillation chronic 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 Paroxysmal atrial fibrillation [facility] Work Phone: Evaluation note* Diagnosis Persistent atrial fibrillation (HCC)- Primary Atrial fibrillation documented in this encounter [facility] note* Diagnosis Onset Date Resolution Status S/P ablation of atrial fibrillation acute Skin lesion acute Smoking greater than 20 pack years acute Stage 1 mild COPD by GOLD classification acute Vitamin D deficiency acute 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 chronic Protein C deficiency chronic Smoking greater than 40 pack years chronic [facility] Work Phone: evaluation noteNo assessment information available [facility] Work Phone: evaluariuq note* Diagnosis Persistent atrial fibrillation (HCC) Atrial fibrillation documented in this encounter [facility] note* Diagnosis Onset Date Resolution Status Admit Date Right upper lobe pulmonary nodule [place] December 02, 2024 7:47am FIFI (obstructive sleep apnea) chroni c December 02, 2024 7:47am Smoking greater than 40 pack years chronic December 02, 2024 7 :47am Stage 1 mild COPD by GOLD classification chronic December 02, 2024 7 :47am [facility] Work Phone: Evaluation note* Diagnosis Right upper lobe pulmonary nodule- Primary Chronic obstructive pulmonary disease, unspecified COPD type (HCC) Paroxysmal atrial fibrillation (HCC) Atrial fibrillation 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) Warfarin anticoagulation Former smoker Personal history of tobacco use, presenting hazards to health Solitary pulmonary nodule documented in this encounter [facility] note* Diagnosis Lung nodule- Primary Other diseases of lung, not elsewhere classified Solitary pulmonary nodule documented in this encounter [facility] note* Diagnosis Lung nodule- Primary Other diseases of lung, not elsewhere classified Lung nodule Other diseases of lung, not elsewhere classified Solitary pulmonary nodule S/P thoracotomy Other postprocedural status documented in this encounter [facility] note* Diagnosis Lung nodule- Primary Other diseases of lung, not elsewhere classified documented in this encounter [facility] Discharge instructionsAmbulatory Orders* Cardiovascular/Thoracic Surgery Location: None [facility] Work Phone: Reqoay for referral (narrative)* Diagnostic Procedure Only (Routine) - Pending Review Specialty Diagnoses / Procedures Referred By Hay schwab Referred To Contact MOLECULAR & FUNCTIONAL IMAGING Diagnoses Dyspnea, unspecified type Regular wide QRS complex tachycardia Procedures NM CARDIAC PERF STRESS/EXERCISE MYOCARDIAL SPECT MULTIPLE STUDIES Aylin Mathew MD [address] [facility] [address] [place] [address] Molecular & Functional Imaging [address] [place] [address] Referral ID Status Reason Start Date Expiration Date Visits Requested Visits Authorized [id number] Pending Review Auto-Generat ed Referral 12/03/2022 2023 1 1 [facility] for referral (narrative)No reason for referral [facility] Work Phone: Recnwv for visit Narrative* Auth/Cert (Routine) Specialty Diagnoses / Procedures Referred By Hay schwab Referred To Contact Diagnoses Solitary pulmonary nodule Procedures MN THORACOSCOPY W/LOBECTOMY SINGLE LOBE ROBOTIC RIGHT UPPER LOBECTOMY Sarah Luna DO [address] [place] [address] Phone: tel: fax: Referral ID Status Reason Start Date Expiration Date Visits Re quested Visits Authorized [id number] 12/23/2024 1 1 [facility] Chief Complaint Chief Complaint Description Start [...] Care Physician for BMI management. Advance Directives No Advanced Directives Records Found Advance Directive Response Recorded Date/ Time Living Will No April 25 3:40pm Power of Meat Hostess No April 25 3:40pm Advance Directive Response Recorded Date/ Time Advance Directives No March 11:13am Living Will No April 04, 2022 11:13am Power of Meat Hostess No March 11:13am Advance Directive Response Recorded Date/ Time Advance Directives on File No 2021 10:58am Advance Directives No May 10:58am Living Will No June 04 10:58am Power of Meat Hostess No June 04, 2022 10:58am Advance Directive Response Recorded Date/ Time Advance Directives No May 11:58am Living Will No June 04 11:58am Power of Meat Hostess No June 04, 2022 11:58am Advance Directive Response Recorded Date/ Time Advance Directives No May 10:58am Living Will No June 04 10:58am Power of Meat Hostess No June 04, 2022 10:58am Advance Directive Response Recorded Date/ Time Living Will No June 04 11:58am Do you have a Healthcare Power of Meat Hostess? No June 04, 2022 11:58am Living Will No July 21 5:18am Do you have a Healthcare Power of Meat Hostess? No July 21, 2024 5:18am Living Will No September 18, 2024 4:58am Do you have a Healthcare Power of Meat Hostess? 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 No June 04, 2022 11:58am Living Will No September 18, 2024 4:58am Do you have a Healthcare Power of Meat Hostess? 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 No June 04, 2022 11:58am Living Will No September 18, 2024 4:58am Do you have a Healthcare Power of Meat Hostess? No September 18, 2024 4:58am Do you have a Healthcare Power of Meat Hostess? Yes March 04, 2025 2:31pm Advance Directives No May 11:58am Advance Directive Response Recorded Date/ Time Living Will No June 04 11:58am Do you have a Healthcare Pow er of Meat Hostess? No June 04, 2022 11:58am Living Will No September 18, 2024 4:58am Do you have a Healthcare Pow er of Meat Hostess? No September 18, 2024 4:58am Do you have a Healthcare Pow er of Meat Hostess? Yes March 04, 2025 7:21pm Name of Medical Power of Meat Hostess Radha Jackman er () March 04, 2025 7:21pm Advance Directives No May 11:58am Assessments There may be information available, but it has not been provided by the sender. Review of System There may be information available, but it has not been provided by the sender. 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 Paroxysmal atrial fibrillation Skin lesion Stage 1 mild COPD by GOLD classification Vitamin D deficiency 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 longterm current use of anticoagulant Chief Complaint S/O INR- FINGERSTICK 3 M FU POST OP A FIB Amb Documentation 6 M FU S/O INR- FINGERSTICK 6 M FU S/O INR- FINGERSTICK Reason for Visit 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 longterm current use of anticoagulant Paroxysmal atrial fibrillation Skin lesion Stage 1 mild COPD by GOLD classification Vitamin D deficiency 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 Stage 1 mild COPD by GOLD classification Paroxysmal atrial fibrillation Chief Complaint 6 M FU S/O INR- FINGERSTICK S/O INR- FINGERSTICK S/O INR- FINGERSTICK 1 Y FU Reason for Visit Stage 1 mild COPD by GOLD classification Paroxysmal atrial fibrillation 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 longterm current use of anticoagulant Paroxysmal atrial fibrillation [...] sore throat March 04, 2025 8: 08am Chief Complaint Admit Date NICOTINE November 17, 2024 7:5 2am S/O INR- FINGERSTICK November 17, 2024 8: 13am 9 M FU December 02, 2024 7:47a m LUNG December 07, 2024 8:12a m 3 wk fu December 10, 2024 8:37a m INR January 17, 2025 9:45 am sore throat March 04, 2025 8: 08am FACIAL AND NECK EDEMA March 04, 2025 6:13pm Reason for Visit Admit Date Right upper [...] by GOLD classification December 10, 2024 8:37am Acute pharyngitis March 04, 2025 8: 08am Dysphagia March 04, 2025 6: 13pm Chief Complaint Admit Date NICOTINE November 17, 2024 7:5 2am S/O INR- FINGERSTICK November 17, 2024 8: 13am 9 M FU December 02, 2024 7:47a m LUNG December 07, 2024 8:12a m 3 wk fu December 10, 2024 8:37a m INR January 17, 2025 9:45 am sore throat March 04, 2025 8: 08am FACIAL AND NECK EDEMA March 04, 2025 6:13pm FACIAL AND NECK EDEMA March 05, 2025 11:35am Chief Complaint Admit Date NICOTINE November 17, 2024 7:5 2am S/O INR- FINGERSTICK November 17, 2024 8: 13am 9 M FU December 02, 2024 7:47a m LUNG December 07, 2024 8:12a m 3 wk fu December 10, 2024 8:37a m INR January 17, 2025 9:45 am sore throat March 04, 2025 8: 08am FACIAL AND NECK EDEMA March 04, 2025 6:13pm FACIAL AND NECK EDEMA March 05, 2025 11:35am 3 M FU March 11, 2025 7: 38am Summary Purpose Additional Source Comments Reason for [...] 04/19/2020 Reason Comments CARD New Patient Consult MAINTENANCE AIDE REF FOR A-FI 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 Procedures Reason Comments Results 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 Patient Update Reason [...] section and content) DATE CREATED AUTHOR 01/19/2022 [facility] DATE CREATED AUTHOR AUTHOR'S ORGANIZ ATION 05/05/2023 [facility] DATE CREATED AUTHOR AUTHOR'S ORGANIZ ATION 01/31/2025 [facility] DATE CREATED AUTHOR AUTHOR'S ORGANIZ ATION 05/22/2025 [facility] Source Comments (unrecognize d section and content) In the event this informatio n is protected by the Federal Confidentiality of Alcohol and Drug Abuse Patient Records regulations: The Federal rules restrict any use of the information to criminally investigate or prosecute any alcohol or drug abuse patient.[facility] the event this information is protected by the Federal Confidentiality of Alcohol and Drug Abuse Patient Records regulations: The Federal rules restrict any use of the information to criminally investigate or prosecute any alcohol or drug abuse patient.[facility] the event this information is protected by the Federal Confidentiality of Alcohol and Drug Abuse Patient Records regulations: The Federal rules restrict any use of the information to criminally investigate or prosecute any alcohol or drug abuse patient.[facility] the event this information is protected by the Federal Confidentiality of Alcohol and Drug Abuse Patient Records regulations: The Federal rules restrict any use of the information to criminally investigate or prosecute any alcohol or drug abuse patient.[facility] the event this information is protected by the Federal Confidentiality of Alcohol and Drug Abuse Patient Records regulations: The Federal rules restrict any use of the information to criminally investigate or prosecute any alcohol or drug abuse patient.[facility] the event this information is protected by the Federal Confidentiality of Alcohol and Drug Abuse Patient Records regulations: The Federal rules restrict any use of the information to criminally investigate or prosecute any alcohol or drug abuse patient.[facility] the event this information is protected by the Federal Confidentiality of Alcohol and Drug Abuse Patient Records regulations: The Federal rules restrict any use of the information to criminally investigate or prosecute any alcohol or drug abuse patient.[facility] the event this information is protected by the Federal Confidentiality of Alcohol and Drug Abuse Patient Records regulations: The Federal rules restrict any use of the information to criminally investigate or prosecute any alcohol or drug abuse patient.[facility] the event this information is protected by the Federal Confidentiality of Alcohol and Drug Abuse Patient Records regulations: The Federal rules restrict any use of the information to criminally investigate or prosecute any alcohol or drug abuse patient.[facility] Care Teams (unrecognized sec tion and [...] Provider, Referring Pro vider Active Hi Swanson MAINTENANCE AIDE, MAINTENANCE AIDE-C Other Provider Active Team Status: Active Member Role Status Dates Dr. Marion Feng MD Primary Care Provider Active Dr. Brandon Anders MD Attending Provider, Referring Pr ovider Active Marina Dry Dock Manager Relationship Specialty Start Date End Date Magen Ayon MD [address] [place] [address] PCP - General 08/10/03 [employer] Manager Relationship Specialty Start Date End Date Magen Ayon MD [address] [place], [place] [id number] PCP - General 08/10/03 Team Status: Inactive [...] Provider, Referri ng Provider Active Hi Swanson MAINTENANCE AIDE, MAINTENANCE AIDE-C Attending Provider Active Team Status: Active Member Role Status Dates Dr. Marion Feng MD Primary Care Provider Active Dr. Jose Hylton MD Other Provider Active Kassy Stack PA, PA Attending Provider Active Team Status: Active Member Role Status Dates Dr. Marion Fneg MD Primary Care Provider Active Dr. Jose [...] Provider, Referring Pro vider Active Hi Swanson MAINTENANCE AIDE, MAINTENANCE AIDE-C Other Provider Active Team Status: Active Member Role Status Dates Dr. Marion Feng MD Primary Care Provider Active Hi Swanson MAINTENANCE AIDE, MAINTENANCE AIDE-C Attending Provider Active Team Status: Active Member Role Status Dates Dr. Marion Feng MD Primary Care Provider Active Dr. Jose Hylton MD Attending Provider, Referring Pro vider Active Hi Swanson MAINTENANCE AIDE, MAINTENANCE AIDE-C Other Provider Active Team Status: Inactive Member Role Status Dates Dr. Marion Feng MD Primary Care Provider Active Hi Swanson MAINTENANCE AIDE, MAINTENANCE AIDE-C Attending Provider, Referring Pro vider Active [employer] Dry Dock Manager Relationship Specialty Start Date End Date Marion Feng MD [address] [place] [address] PCP - General Internal Medicine 08/05/22 Marina Dry Dock Manager Relationship Specialty Start Date End Date Marion Feng MD [address] [address] PCP - General Internal Medicine 08/05/22 Team Status: Inactive Member Role Status Dates Dr. Marion Feng MD Primary Care Provider, Attendi ng Provider Active Marina Dry Dock Manager Relationship Specialty Start Date End Date Marion Feng MD [address] [place] [address] PCP - General Internal Medicine 08/05/22 Marina Dry Dock Manager Relationship Specialty Start Date End Date Marion Feng MD [address] [address] PCP - General Internal Medicine 08/05/22 Marina Dry Dock Manager Relationship Specialty Start Date End Date Marion Feng MD [address] [place] [address] PCP - General Internal Medicine 08/05/22 Team Status: Inactive Member Role Status Dates Dr. Marion Feng MD Primary Care Provider Active Start: July 15, 2024 End: July 15, 2024 Dr. Jose Hylton MD Attending Provider Active S tart: July 15, 2024 End: July 15, 2024 Dr. Jose Hylton MD Referring Provider Active S tart: July 15, 2024 End: July 15, 2024 Hi Swanson MAINTENANCE AIDE, MAINTENANCE AIDE-C Other Provider Active Start : July 15, [...] 2024 End: September 17, 2024 Hi Swanson MAINTENANCE AIDE, MAINTENANCE AIDE-C Other Provider Active Start : September 02, 2024 End: September 17, 2024 Team Status: Inactive Member Role Status Dates Dr. Marion Feng MD Primary Care Provider Active Start: October 19, 2024 End: October 19, 2024 Kylie Motta MAINTENANCE AIDE, MAINTENANCE AIDE-C Attending Provider Active Start: October 19, 2024 End: October 19, 2024 Kylie Motta MAINTENANCE AIDE, MAINTENANCE AIDE-C Referring Provider Active Start: October 19, 2024 End: October 19, 2024 Team Status: Active Member Role Status Dates Dr. Marion Feng MD Primary Care Provider Active Start: October 19, 2024 Dr. Jose Hylton MD Attending Provider Active S tart: October 19, 2024 Dr. Jose Hylton MD Referring Provider Active S tart: October 19, 2024 Hi Swanson MAINTENANCE AIDE, MAINTENANCE AIDE-C Other Provider Active Start : October 19, 2024 Team Status: Inactive Member Role Status Dates Dr. Marion Feng MD Primary Care Provider Active Start: November 17, 2024 End: November 17, 2024 Kylie Motta MAINTENANCE AIDE, MAINTENANCE AIDE-C Attending Provider Active Start: November 17, 2024 End: November 17, 2024 Kylie Motta MAINTENANCE AIDE, MAINTENANCE AIDE-C Referring Provider Active Start: November 17, 2024 [...] 2024 End: November 17, 2024 Hi Swanson MAINTENANCE AIDE, MAINTENANCE AIDE-C Other Provider Active Start : November 17, 2024 End: November 17, 2024 Team Status: Inactive Member Role Status Dates Dr. Marion Feng MD Primary Care Provider Active Start: December 02, 2024 End: December 02, 2024 Dr. Marion Feng MD Referring Provider Active Start: December 02, 2024 End: December 02, 2024 Kylie Motta MAINTENANCE AIDE, MAINTENANCE AIDE-C Attending Provider Active Start: December 02, 2024 End: December 02, 2024 Team Status: Inactive Member Role Status Dates Dr. Marion Feng MD Primary Care Provider Active Start: December 07, 2024 End: December 07, 2024 Kylie Motta MAINTENANCE AIDE, MAINTENANCE AIDE-C Attending Provider Active Start: December 07, 2024 End: December 07, 2024 Kylie Motta MAINTENANCE AIDE, MAINTENANCE AIDE-C Referring Provider Active Start: December 07, 2024 End: December 07, 2024 Team Status: Inactive Member Role Status Dates Dr. Marion Feng MD Primary Care Provider Active Start: December 10, 2024 End: December 10, 2024 Dr. Marion Feng MD Referring Provider Active Start: December 10, 2024 End: December 10, 2024 Kylie Motta MAINTENANCE AIDE, MAINTENANCE AIDE-C Attending Provider Active Start: December 10, 2024 End: December 10, 2024 Marina Dry Dock Manager Relationship Specialty Start Date End Date Marion Feng [address] [place] [id number] PCP - General Internal Medicine 12/15/24 Kylie Motta [address] [place] [address] Nurse Practitioner 12/15/24 Marina Dry Dock Manager Relationship Specialty Start Date End Date Marion Feng [address] [place] [phone] PCP - General Internal Medicine 12/15/24 Kylie Motta [address] [place] [address] Nurse Practitioner 12/15/24 Marina Dry Dock Manager Relationship Specialty Start Date End Date Marion Feng [address] [place] [phone] PCP - General Internal Medicine 12/15/24 Kylie Motta [address] [place] [address] Nurse Practitioner 12/15/24 Marina Dry Dock Manager Relationship Specialty Start Date End Date Marion Feng [address] [place] [phone] PCP - General Internal Medicine 12/15/24 Kylie Motta [address] [place] [address] Nurse Practitioner 12/15/24 Team Status: Active Member Role/Relationship Status Dates Dr. Marion Feng MD Primary Care Provider Active Team Status: Inactive Member Role/Relationship Status Dates Dr. Marion Feng MD Primary Care Provider Active Start: October 19, 2024 End: October 19, 2024 Kylie Motta MAINTENANCE AIDE, MAINTENANCE AIDE-C Attending Provider Active Start: October 19, 2024 End: October 19, 2024 Kylie Motta MAINTENANCE AIDE, MAINTENANCE AIDE-C Referring Provider Active Start: October 19, 2024 End: October 19, 2024 Team Status: Inactive Member Role/Relationship Status Dates Dr. Marion Feng MD Primary Care Provider Active Start: November 17, 2024 End: November 17, 2024 Kylie Motta MAINTENANCE AIDE, MAINTENANCE AIDE-C Attending Provider Active Start: November 17, 2024 End: November 17, 2024 Kylie Motta MAINTENANCE AIDE, MAINTENANCE AIDE-C Referring Provider Active Start: November 17, 2024 [...] 2024 End: November 17, 2024 Hi Swanson MAINTENANCE AIDE, MAINTENANCE AIDE-C Other Provider Active Start : November 17, 2024 End: November 17, 2024 Team Status: Inactive Member Role/Relationship Status Dates Dr. Marion Feng MD Primary Care Provider Active Start: December 02, 2024 End: December 02, 2024 Dr. Marion Feng MD Referring Provider Active Start: December 02, 2024 End: December 02, 2024 Kylie Motta MAINTENANCE AIDE, MAINTENANCE AIDE-C Attending Provider Active Start: December 02, 2024 End: December 02, 2024 Team Status: Inactive Member Role/Relationship Status Dates Dr. Marion Feng MD Primary Care Provider Active Start: December 07, 2024 End: December 07, 2024 Kylie Motta MAINTENANCE AIDE, MAINTENANCE AIDE-C Attending Provider Active Start: December 07, 2024 End: December 07, 2024 Kylie Motta MAINTENANCE AIDE, MAINTENANCE AIDE-C Referring Provider Active Start: December 07, 2024 End: December 07, 2024 Team Status: Inactive Member Role/Relationship Status Dates Dr. Marion Feng MD Primary Care Provider Active Start: December 10, 2024 End: December 10, 2024 Dr. Marion Feng MD Referring Provider Active Start: December 10, 2024 End: December 10, 2024 Kylie Motta MAINTENANCE AIDE, MAINTENANCE AIDE-C Attending Provider Active Start: December 10, 2024 End: December 10, 2024 Team Status: Inactive Member Role/Relationship Status Dates Dr. Marion Feng MD Primary Care Provider Active Start: January 17, 2025 End: January 17, 2025 Kassy PHILLIP, PA Attending Provider Active Start: January 17, 2025 End: January 17, 2025 Kassy PHILLIP, PA Referring Provider Active Start: January 17, 2025 End: January 17, 2025 Marina Dry Dock Manager Relationship Specialty Start Date End Date Marion Feng [address] [place] [phone] PCP - General Internal Medicine 12/15/24 Kylie Motta [address] [place] [address] Nurse Practitioner 12/15/24 Team Status: Inactive Member Role/Relationship Status Dates Dr. Marion Feng MD Primary Care Provider Active Start: November 17, 2024 End: November 17, 2024 Kylie Motta MAINTENANCE AIDE, MAINTENANCE AIDE-C Attending Provider Active Start: November 17, 2024 End: November 17, 2024 Kylie Motta MAINTENANCE AIDE, MAINTENANCE AIDE-C Referring Provider Active Start: November 17, 2024 [...] 2024 End: November 17, 2024 Hi Swanson MAINTENANCE AIDE, MAINTENANCE AIDE-C Other Provider Active Start : November 17, 2024 End: November 17, 2024 Team Status: Inactive Member Role/Relationship Status Dates Dr. Marion Feng MD Primary Care Provider Active Start: December 02, 2024 End: December 02, 2024 Dr. Marion Feng MD Referring Provider Active Start: December 02, 2024 End: December 02, 2024 Kylie Motta MAINTENANCE AIDE, MAINTENANCE AIDE-C Attending Provider Active Start: December 02, 2024 End: December 02, 2024 Team Status: Inactive Member Role/Relationship Status Dates Dr. Marion Feng MD Primary Care Provider Active Start: December 07, 2024 End: December 07, 2024 Kylie Motta MAINTENANCE AIDE, MAINTENANCE AIDE-C Attending Provider Active Start: December 07, 2024 End: December 07, 2024 Kylie Motta MAINTENANCE AIDE, MAINTENANCE AIDE-C Referring Provider Active Start: December 07, 2024 End: December 07, 2024 Team Status: Inactive Member Role/Relationship Status Dates Dr. Marion Feng MD Primary Care Provider Active Start: December 10, 2024 End: December 10, 2024 Dr. Marion Feng MD Referring Provider Active Start: December 10, 2024 End: December 10, 2024 Kylie Motta MAINTENANCE AIDE, MAINTENANCE AIDE-C Attending Provider Active Start: December 10, 2024 [...] 04, 2025 End: March 04, 2025 Renny PHILLIP, PA Attending Provider Active Sta rt: March 04, 2025 End: March 04, 2025 Team Status: Active Member Role/Relationship Status Dates Dr. Marion Feng MD Primary Care Provider Active Start: March 04, 2025 Dr. Ashok Olvera MD Emergency Provider Active Sta rt: March 04, 2025 Dr. Donna Cedeno MD Admit Provider Active Star t: March 04, 2025 Dr. Donna Cedeno MD Attending Provider Active Start: March 04, 2025 Dr. Donna Cedeno MD Other Provider Active Star t: March 04, 2025 Team Status: Inactive Member Role/Relationship Status Dates Dr. Marion Feng MD Primary Care Provider Active Start: March 04, 2025 End: March 05, 2025 Dr. Ashok Olvera MD Emergency Provider Active Sta rt: March 04, 2025 End: March 05, 2025 Dr. Donna Cedeno MD Admit Provider Active Star t: March 04, 2025 End: March 05, 2025 Dr. Donna Cedeno MD Other Provider Active Star t: March 04, 2025 End: March 05, 2025 Dr. Bryan Sesay MD Attending Provider Active Start: March 04, 2025 End: March 05, 2025 Team Status: Active Member Role/Relationship Status Dates Dr. Marion Feng MD Primary Care Provider Active Start: March 05, 2025 Dr. Ashok Olvera MD Emergency Provider Active Sta rt: March 05, 2025 Dr. Donna Cedeno MD Admit Provider Active Star t: March 05, 2025 Dr. Donna Cedeno MD Other Provider Active Star t: March 05, 2025 Dr. Bryan Sesay MD Attending Provider Active Start: March 05, 2025 Dr. Bryan Sesay MD Other Provider Active Sta rt: March 05, 2025 Team Status: Inactive Member Role/Relationship Status Dates Dr. Marion Feng MD Primary Care Provider Active Start: March 11, 2025 End: March 11, 2025 Dr. Marion Feng MD Referring Provider Active Start: March 11, 2025 End: March 11, 2025 Kylie Motta MAINTENANCE AIDE, MAINTENANCE AIDE-C Attending Provider Active Start: March 11, 2025 End: March 11, 2025 Scheduled Active and Recently Administ ered [...] simvastatin (Zocor). 2040 (Given - Provider: Bekah Tristan, BENIGNO) 2119 (Given - Provider: Bekah Tristan, BENIGNO) buPROPion SR (Wellbutrin SR) 12 hr tablet 150 mg 150 mg, Oral, 2 times daily, First dose on Fri01/11/25 at 0930, Do not crush, chew, or split. 0836 (Given - Provider: Katie Schneider RN)2040 (Given - Provider: Bekah Tristan, BENIGNO) 0806 (Given - Provider: Katie Schneider RN)2119 (Given - Provider: Bekah Tristan, BENIGNO) 0807 (Given - Provider: Lisa Barfield RN) famotidine (Pepcid) tablet 20 mg 20 mg, [...] this med)0945 (Given - Provider: Vikki Noel RCP) metoprolol succinate XL (Toprol-XL) 24 hr tablet 25 mg 25 mg, Oral, Daily, First dose on Fri01/11/25 at 0900, Recovery & On Unit, Do not crush or chew. 0835 (Given - Provider: Katie Schneider RN) 08 (Given - Provider: Katie Schneider RN) 0808 (Given - Provider: Lisa Barfield, RN) mometasone-formoterol (Dulera 200) 200-5 MCG/ACT inhaler 2 [...] Schneider RN)2149 (Given - Provider: Bekah Tristan, BENIGNO) 08 (Not Given - Provider: Katie Schneider [...] 0808 (Given - Provider: Lisa Barfield, BENIGNO) senna-docusate sodium (Senokot-S) 8.6-50 MG tablet 2 [...] RN) 0809 (Given - Provider: Katie Schneider RN)2119 (Given - Provider: Bekah Tristan RN) 0812 [...] 0808 (Given - Provider: Lisa Barfield, BENIGNO) warfarin (Coumadin) tablet 5 mg (COMPLETED) 5 [...] 1 dose 1708 (Given - Provider: Katie Schneider, RN) PRN Medication Order 01/12/2025 01/13/2025 01/14/2025 [...] sedation for opioid reversal - MUST notify admissions rn provider immediately after first dose, may give [...] BE BASED ON THE PRIMARY CLINICAL RECORDS. [facility]. provides no warranty or guarantee of the accuracy or completeness of information in this document.
== END | disposition home or self-care (01) ==
LOC: LAB 13:49
PROVIDERS: PCP Internal Medicine; Referring Provider Urology; Visit Provider Urology
DX: Z12.5 Encounter for screening for malignant neoplasm of prostate (principal)
CPT/HCPCS: 84153; G0103

== ENCOUNTER 2025-06-30 15:44 | Outpatient (RCR) | payer MEDICARE, OTHER, SELFPAY ==
[2025-06-30 16:01] LABS: INR Fingerstick 2.4
== END 2025-06-30 18:00 | disposition home or self-care (01) ==
LOC: LAB 15:44
PROVIDERS: PCP Internal Medicine; Referring Provider Physician Assistant Medical; Visit Provider Physician Assistant Medical
DX: Z79.01 Long term (current) use of anticoagulants (principal); I48.0 Paroxysmal atrial fibrillation; D68.59 Other primary thrombophilia
CPT/HCPCS: 36416; 85610

== ENCOUNTER → 2025-06-30 | Outpatient (CLI) | payer MEDICARE, OTHER, SELFPAY ==
--- NOTE | 2025-06-30 16:06 | CT_ITS ---
PROCEDURE: ABDOMEN/PELVIS WITH CONTRAST 06/30/2025 REASON FOR EXAM: HEMATURIA, FORMER SMOKER TECHNIQUE: Procedure Code: [id number] Modality: CT Procedure: ABDOMEN/PELVIS WITH CONTRAST Coronal and Sagittal reconstruction series were provided. CONTRAST: Isovue 300 VOLUME: 90 mL One or more dose reduction techniques were used (e.g., Automated exposure control, adjustment of the mA and/or kV according to patient size, use of iterative reconstruction technique. RADIATION DOSE SUMMARY: CTDlvol: 38 mGy DLP: 1013 mGycm COMPARISON: PET-CT November 2024. FINDINGS: Lung bases: Negative. ABDOMEN Liver: Hepatic cysts noted. No focal masses. Slight fatty infiltration of the liver. Stable. Biliary system: Negative. Negative for intrahepatic or extrahepatic ductal dilatation. Gallbladder: Contracted. Negative for cholecystitis. Spleen: Negative. Pancreas: Negative. Adrenals: Negative. Kidneys: Negative. Negative for kidney stones, cysts or masses. Bowel: Increased stool throughout the colon acute diverticulosis. Negative for small or large-bowel obstruction. Appendix: Negative. Vasculature: Mild atherosclerotic vascular calcifications of the abdominal aorta and its branches. Peritoneum / Retroperitoneum: Negative. PELVIS Lymph nodes: Left inguinal hernia. Herniation of fat and colon into the left hemiscrotum without obstruction. Negative for inguinal or iliac adenopathy. Bladder: Irregular mass appears to be in the inferior right posterior lateral urinary bladder measuring 3.5 by 2.8 cm. Concerning for new neoplasm. Possibly hematoma. Reproductive Organs: Intact. Bones and Soft Tissues: Moderate degenerative changes mid and lower lumbar spine. Age appropriate appearance off the lumbar spine hips and pelvis. 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 Correlate with cy stoscopy. Left inguinal hernia without obstruction. Negative for acute intra-abdominal or pelvic pathology. Reading Location: [id number]
--- OUTSIDE RECORDS SUMMARY | 2025-06-30 18:18 | XMS RPT_ITS | CCD ---
Author Organization [facility] Care Team Providers Care Sales Performance Manager Name Role Phone Mitchell Hernandez MD Unavailable Dr. Marion Feng Primary Care Provider Dr. Marion Feng Referring Provider [phone] Sreekanth PHILLIP, [place] Kassy Ramírez Attending Provider Ángela MANAGER CASH, MANAGER CASH-C Kylie Attending Provider [phone] Dr. Jose Hylton Attending Provider Dr. Marion [...] Marion Feng Referring Provider [phone] Kiki MANAGER CASH, MANAGER CASHBailey Traore Attending Provider Dr. Marion Feng Primary [...] Dr. Marion Feng Referring Provider [phone] Kiki MANAGER CASH, MANAGER CASH-Giovani Traore Attending Provider [phone] Dr. Jose [...] Dr. Marion Feng Attending Provider [phone] Kiki MANAGER CASH, MANAGER CASH-Giovani Traore Attending Provider Dr. Brandon Anders Attending Provider Dr. Marion Feng Primary Care Provider Dr. Marion Feng Referring Provider [phone] Kiki MANAGER CASH, MANAGER CASH-Giovani Traore Attending Provider Dr. Brandon Anders Attending Provider Jung HEDRICK, Marion Ramírez Primary Care Provider [phone] Dr. Marion Feng Primary Care Provider Dr. Marion Feng Referring Provider [phone] Kiki MANAGER CASH, MANAGER CASH-C Hi Traore Attending Provider Dr. Marion Feng Attending Provider [phone] Dr. Marion Feng Primary Care Provider Dr. Marion Feng Referring Provider [phone] Dr. Maroin Feng Attending Provider Dr. Brandon Anders Attending [...] Dr. Jose Hylton MD Referring Provider Roof MANAGER CASH-C, Hi H Other Provider Ángela MANAGER CASH-C, Kylie Attending Provider Ángela MANAGER CASH-C, Kylie Referring Provider Jung HEDRICK, Dr. Gupta Primary Care Provider Warner HEDRICK, Dr. Garcia Attending Provider Warner HEDRICK, Dr. Garcia Referring Provider Roof MANAGER CASH-C, Hi H Other Provider Jung HEDRICK, Dr. Gupta Referring Provider Marion Feng Primary Care Provider Kylie Motta Unavailable Jung HEDRICK, Dr. Gupta Primary Care Provider Warner HEDRICK, Dr. Garcia Attending Provider Warner HEDRICK, Dr. Garcia Referring Provider Roof MANAGER CASH-C, Hi H Other Provider Kassy Ramesh Attending [...] Gupta Primary Care Provider [phone] Ángela MANAGER CASH-C, Kylie Attending Provider Ángela MANAGER CASH-C, Kylie Referring Provider Renny Rhoades Attending Provider Wade HEDRICK, Dr. Pulido Emergency Provider Wilian HEDRICK, Dr. Thompson Admit Provider Wilian HEDRICK, Dr. Thompson Attending Provider Wilian HEDRICK, Dr. Thompson Other Provider [phone] Lázaro HEDRICK, Dr. Adams Attending Provider [phone] Lázaro HEDRICK, Dr. Adams Other Provider Kassy Ramesh Attending Unavail able Kassy Ramesh Referring Unavail able Jung, Marion Primary Care Unavailable Jung, Marion Primary Care Unavailable Motta MANAGER CASH, Kylie Referring Unavailable Motta MANAGER CASH, Kylie Attending Unavailable Jung, Marion Referring Unavailable Roof MANAGER CASH, Hi H Attending Unavailable Jung, Marion Primary Care Unavailable Yayo Muñiz Attending Unavailable Jung, Marion Referring Unavailable Motta MANAGER CASH, Kylie Attending Unavailable Jung, Marion Primary Care Unavailable Jung, Marion Referring Unavailable Renny Rhoades Attending Unavailable Jung, Marion Primary Care Unavailable Jung, Marion Primary Care Unavailable Jung, Marion Referring Unavailable Motta MANAGER CASH, Kylie Attending Unavailable Jung, Marion Primary Care Unavailable Jung, Marion Referring Unavailable Motta MANAGER CASH, Kylie Attending Unavailable Donna Cedeno Attending Unavailable Cedeno, Donna Consulting Unavailable Cedeno, Donna Admitting Unavailable Jung, Marion Primary Care Unavailable Bryan Sesay Attending Unavailable Lázaro, Bryan Consulting Unavailable Jung, Marion Primary Care Unavailable Motta MANAGER CASH, Kylie Referring Unavailable Motta MANAGER CASH, Kylie Attending Unavailable Jung, Marion Primary Care Unavailable Motta MANAGER CASH, Kylie Referring Unavailable Motta MANAGER CASH, Kylie Attending Unavailable Jung, Marion Primary Care Unavailable Kassy Ramesh Referring Unavail able Kassy Ramesh Attending Unavail able Roof MANAGER CASH, Hi H Consulting Unavailable Jung, Marion Primary Care Unavailable Warner, Jose Referring Unavailable Warner, Jose Attending Unavailable Roof MANAGER CASH, Hi H Consulting Unavailable Jung, Marion Primary Care Unavailable Warner, [place] Attending Unavailable Warner, [place] Referring Unavailable Cedeno, Donna Consulting Unavailable Cedeno, Donna Admitting Unavailable Lázaro Bryan Attending Unavailable Jung, Marion Primary Care Unavailable Roof MANAGER CASH, Hi H Consulting Unavailable Jung, Marion Primary Care Unavailable Warner, [place] Referring Unavailable Warner, Jose Attending Unavailable Jung, Marion Primary Care Unavailable Kassy Ramesh Attending Unavail able Kassy Ramesh Referring Unavail able Roof MANAGER CASH, Hi Traore Consulting Unavailable Marion Feng Primary Care Unavailable Jose Hylton Referring Unavailable Jose Hylton Attending Unavailable Allergies Allergy Classification Reported Allergen(s) Allergy Type Date of Onset Reaction(s) Facility (1 source) PLANT POLLENS; Translations: [PLANT POLLENS] allergy to substance 02-08-20 [facility] Work Phone: (10 sources) Seasonal allergy; Translations: [SEASONAL ALLERGIES] Allergy to substance 02-18-20 Other: See Comments [facility] Work Phone: (3 sources) Seasonal allergy Environmental allergy 02-18-20 Other [facility] Medications Current Medications Medication Drug Class(es) Dates [...] Preprocedure, Administer 60 minutes prior to surgery. [id number] 200 actuat albuterol 0.09 mg/actuat metered dose [...] 02, 2024 8:04am Start: 03-15-2024 End: 12-02-2024 Ivvmfpkclh-Tpdtsdtd-Eruxyosr ol (Breztri Aerosphere) 160-9-4.8 mcg/actuation HFA aerosol inhaler Discontinued 2 NMA INHALATION TWICE A DAY 3 March 15, 2024 12:00am December 02, 2024 8:04am Start: 03-15-2024 End: 12-02-2024 Ohzbvzoopl-Ypnukikv-Inpkthoq ol (Breztri Aerosphere) 160-9-4.8 mcg/actuation HFA aerosol [...] Start: 02-29-2020 take 1 capsule by [facility] once daily Ywewndvbhcl-Fbkwxxjkh-Npx C-Mn (Glucosamine Chondroitin Maxstr) 500-400 mg capsule Active 1 CAP PO DAILY February 28, 2020 11:00pm Start: 02-29-2020 take 1 capsule by [facility] once daily Gfmkoobktxh-Qtxcbhtef-Kpu C-Mn (Glucosamine Chondroitin Maxstr) 500-400 mg capsule Active 1 CAP PO DAILY February 29, 2020 12:00am ANOFYLBUDAJ-BXJAWRHHH-GFJ C- MN PO (6 sources) take 1 capsule by mouth once daily YNBALJEDFOM-FRYLPJDQN-TWC C-MN PO Take 1 capsule by mouth [...] 3 days weekly as directed WARFARIN SODIUM [id number] Jennifer Porras LPN Start: 05-24-2013 End: 03-04-2025 [...] bedtime. docusate sodium 50 mg / sennosides, half-way 8.6 mg oral tablet (2 sources) Start: [...] CAPS 2 capsules daily GLUCOSAMINE-CHO NDROIT-VIT C-MN [id number] Jennifer Porras LPN 1 ml HYDROmorphone hydrochloride [...] Start: 03-17-2020 take 2 tablets by [facility] every hour metoprolol succinate ER [...] on above: Take 2 tablets by [facility] once daily. Per Dr. Hylton. Take 1 tablet by florin once daily. Miscellaneous Medical Supply (COMPRESSION STOCKINGS) [facility] (9 sources) Start: Miscellaneous Medical Supply (COMPRESSION STOCKINGS) [facility] Indications: Unspecified venous (peripheral) insufficiency [...] disintegrating tablet 4 mg polyethylene glycol [id number] mg powder for oral solution (2 sources) [...] TABS 1 tablet 3 days weekly SIMVASTATIN [id number] Jennifer Porras LPN Comment on above: Take [...] DCCV on 06/04/2022; RF ablation 08/05/2022 at [facility]; Chronic obstructive pulmonary disease and bronchiectasis [...] sources) Long-term current use of anticoagulant; Translations: [FDC (current) use of anticoagulants] 04-25-2020 Episodic Other aftercare (13 sources) Patient encounter status; Translations: [Encounter for therapeutic drug level monitoring] 05-15-2022 Episodic Other aftercare (8 sources) Long-term current use of drug therapy; Translations: [Encounter for therapeutic drug level monitoring] 05-15-2022 Episodic Other aftercare (1 source) Anticoagulant effect; Translations: [FDC (current) use of anticoagulants] 12-23-2024 Episodic Other [...] and exit blocks confirmed on 08/05/2022 at [facility] with Dr. Aylin turner; Residual codes; [...] 05-19-2017 05-19-2017 Episodic Other aftercare (9 sources) FDC (current) use of anticoagulants; Translations: [Long-term (current) [...] Coag (PPP) [Relative time] 2.6 {INR} Normal [facility] Comment on above: Result Comment: Crit ical Value > 4.0 Performed By: #### L 9200.0000 #### [facility] [address] [place], [place], [address] Protime [place] 27.5 SEC High 11.7-14.9 [facility] Comment on above: Performed By: #### L 9200.0000 #### [facility] [address] [place], [place], [address] Pulmonary Visit Reporton Pulmonary Visit Report [facility] [place] [address] [place], [place] [address] OFFICE VISIT Date of Service: 03/11/25 MR#: [id number] Acct: [id number] Name: RICH JAMES I Rep #: [id number] : 1955 Provider: ANA Motta Age/Sex: 69/M Location: [facility] Status: Signed Assessment and Plan Assessment and [...] Additional Comments: This note was generated with Camera360 dictation software. It may contain incorrect words, [...] then seen in the emergency department at [facility] and was diagnosed with have an [...] and refr (more content not included)... Normal [facility] Absolute lymphocyte countOrd ered By: Donna Cedeno on 03-05-2025 Lymphocytes Auto (Unsp spec) [#/Vol] 0.65 10*3/uL Low 0.83-4.51 [facility] Absolute neutrophil countOrd ered By: Donna Cedeno on 03-05-2025 Neutrophils (Bld) [#/Vol] 7.1 10*3/uL 2.0-7.7 [facility] Anion gap in Serum or Plasma Ordered By: Donna Cedeno on 03-05-2025 Anion gap [Moles/Vol] 12 mmol/L 5-15 [facility] Automated lymphocyte count a s percentage of total leukocytesOrdered By: Donna Cedeno on 03-05-2025 Lymphocytes/100 WBC Auto (Unsp spec) 8.1 % Low 19-41 [facility] BUN/creatinine ratioOrdered By: Donna Cedeno on 03-05-2025 Urea nitrogen/Creatinine [Mass ratio] 18.7 mg/mg 10- [facility] Basic Metabolic Profile (BMP )on 03-05-2025 BUN/CRE 18.7 RATIO Normal - [facility] Comment on above: Performed By: #### L 300.3900, L500.2500, L100.0100 #### [facility] [address] [place], [address] Calcium [Mass/Vol] 8.2 mg/dL Normal 7.6-11.0 [facility] Comment on above: Performed By: #### L 300.3900, L500.2500, L100.0100 #### [facility] [address] [place], [address] Chloride [Moles/Vol] 109 mmol/L High 98-108 [facility] Comment on above: Performed By: #### L 300.3900, L500.2500, L100.0100 #### [facility] [address] [place], [address] CO2 [Moles/Vol] 20.4 mmol/L Low 21.0-32.0 [facility] Comment on above: Performed By: #### L 300.3900, L500.2500, L100.0100 #### [facility] [address] [place], [address] Creatinine [Mass/Vol] 0.82 mg/dL Normal 0.70-1.20 [facility] Comment on above: Performed By: #### L 300.3900, L500.2500, L100.0100 #### [facility] [address] [place], [address] ECRCL 86.22 ml/min Normal 50-250 [facility] Comment on above: Performed By: #### L 300.3900, L500.2500, L100.0100 #### [facility] [address] [place], [address] GAP 12 Normal 5-15 [facility] Comment on above: Performed By: #### L 300.3900, L500.2500, L100.0100 #### [facility] [address] [place], [address] GFR/1.73 sq M.predicted among non-blacks MDRD (S/P/Bld) [Vol rate/Area] 96 mL/min/{1.73_m2} Normal >60 [facility] Comment on above: Result Comment: mL/m in/1.73m2 CKD-EPI Creatinine Equation (2020) Performed By: #### L 300.3900, L500.2500, L100.0100 #### [facility] [address] [place], [address] Glucose [Mass/Vol] 154 mg/dL High 70-99 [facility] Comment on above: Performed By: #### L 300.3900, L500.2500, L100.0100 #### [facility] [address] [place], [address] Potassium [Moles/Vol] 3.9 mmol/L Normal 3.3-5.1 [facility] Comment on above: Performed By: #### L 300.3900, L500.2500, L100.0100 #### [facility] [address] [place], [address] Sodium [Moles/Vol] 141 mmol/L Normal 133-145 [facility] Comment on above: Performed By: #### L 300.3900, L500.2500, L100.0100 #### [facility] [address] [place], [address] Urea nitrogen [Mass/Vol] 15 mg/dL Normal 4-19 [facility] Comment on above: Performed By: #### L 300.3900, L500.2500, L100.0100 #### [facility] [address] [place], [address] Basophil percentageOrdered B y: Donna Cedeno on 03-05-2025 Basophils/100 WBC (Bld) 0.1 % 0-1 [facility] CBC W/Diff, Automatedon 02-18 Absolute Lymph 0.65 X10 3/uL Low 0.83-4.51 [facility] Comment on above: Performed By: #### L 300.3900, L500.2500, L100.0100 #### [facility] [address] [place], [address] Absolute Neut 7.1 X10 3/uL Normal 2.0-7.7 [facility] Comment on above: Performed By: #### L 300.3900, L500.2500, L100.0100 #### [facility] [address] [place], [address] Basophils/100 WBC (Bld) 0.1 % Normal 0-1 [facility] Comment on above: Performed By: #### L 300.3900, L500.2500, L100.0100 #### [facility] [address] [place], [address] Eosinophils/100 WBC (Bld) 0.0 % Normal 0-5 [facility] Comment on above: Performed By: #### L 300.3900, L500.2500, L100.0100 #### [facility] [address] [place], [address] Erythrocyte distribution width (RBC) [Ratio] 14.1 % Normal 11.6-14.6 [facility] Comment on above: Performed By: #### L 300.3900, L500.2500, L100.0100 #### [facility] [address] [place], [address] Hematocrit (Bld) [Volume fraction] 37.4 % Low 40-54 [facility] Comment on above: Performed By: #### L 300.3900, L500.2500, L100.0100 #### [facility] [address] [place], [address] Hemoglobin (Bld) [Mass/Vol] 13.0 g/dL Normal 13.0-16.5 [facility] Comment on above: Performed By: #### L 300.3900, L500.2500, L100.0100 #### [facility] [address] [place], [address] IG% 0.200 Normal 0.0-0.9 [facility] Comment on above: Result Comment: IG% - Immature Granulocytes (promyelocytes, myelocytes and metamyelocytes) > 1% indicates that a LEFT SHIFT is Present. Performed By: #### L 300.3900, L500.2500, L100.0100 #### [facility] [address] [place], [address] Lymphocytes/100 WBC (Bld) 8.1 % Low 19-41 [facility] Comment on above: Performed By: #### L 300.3900, L500.2500, L100.0100 #### [facility] [address] [place], [address] MCH (RBC) [Entitic mass] 31.6 pg Normal 27.0-32.0 [facility] Comment on above: Performed By: #### L 300.3900, L500.2500, L100.0100 #### [facility] [address] [place], [address] MCHC (RBC) [Mass/Vol] 34.8 g/dL Normal 32-36 [facility] Comment on above: Performed By: #### L 300.3900, L500.2500, L100.0100 #### [facility] [address] [place], [address] MCV (RBC) [Entitic vol] 90.8 fL Normal 80-94 [facility] Comment on above: Performed By: #### L 300.3900, L500.2500, L100.0100 #### [facility] [address] [place], [address] Monocytes/100 WBC (Bld) 3.0 % Normal 0-10 [facility] Comment on above: Performed By: #### L 300.3900, L500.2500, L100.0100 #### [facility] [address] [place], [address] Neutrophils/100 WBC (Bld) 88.6 % High 47-70 [facility] Comment on above: Performed By: #### L 300.3900, L500.2500, L100.0100 #### [facility] [address] [place], [address] Nucleated RBC (Bld) [#/Vol] 0 10*3/uL Normal 0-5 [facility] Comment on above: Performed By: #### L 300.3900, L500.2500, L100.0100 #### [facility] [address] [place], [address] Platelet mean volume (Bld) [Entitic vol] 9.7 fL Normal 6.2-12.0 [facility] Comment on above: Performed By: #### L 300.3900, L500.2500, L100.0100 #### [facility] [address] [place], [address] Platelets (Bld) [#/Vol] 179 10*3/uL Normal 150-450 [facility] Comment on above: Performed By: #### L 300.3900, L500.2500, L100.0100 #### [facility] [address] [place], [address] RBC (Bld) [#/Vol] 4.12 10*6/uL Low 4.6-6.2 [facility] Comment on above: Performed By: #### L 300.3900, L500.2500, L100.0100 #### [facility] [address] [place], [address] RDW SD 46.9 fl High 35.1-43.9 [facility] Comment on above: Performed By: #### L 300.3900, L500.2500, L100.0100 #### [facility] [address] [place], [address] WBC (Bld) [#/Vol] 8.0 10*3/uL Normal 4.4-11.0 [facility] Comment on above: Performed By: #### L 300.3900, L500.2500, L100.0100 #### [facility] [address] [place], [address] Carbon dioxide, total [Moles /volume] in [place] venous bloodOrdered By: Donna Cedeno on 03-05-2025 CO2 [Moles/Vol] 20.4 mmol/L Low 21.0-32.0 [facility] Chloride assayOrdered By: Kenji Cedeno on 03-05-2025 Chloride [Moles/Vol] 109 mmol/L High 98-108 [facility] Discharge Instructionon 02-18 Discharge Instruction [facility] Medical Records Department [address] [place] [address] Instructions for Home/Discharge Instructions 03/05/25 1129 MR#: [id number] Acct: [id number] Name: RICH JAMES I Rep #: [id number] : 1955 69 From: Bryan Sesay MD [...] MD; Dr. Donna Cedeno MD Signed Normal [facility] Eosinophil percentageOrdered By: Donna Cedeno on 03-05-2025 Eosinophils/100 WBC (Bld) 0.0 % 0-5 [facility] Erythrocyte distribution wid th ratioOrdered By: Donna Cedeno on 03-05-2025 Erythrocyte distribution width (RBC) [Ratio] 14.1 % 11.6-14.6 [facility] Erythrocyte distribution wid th standard deviationOrdered By: Donna Cedeno on 03-05-2025 Erythrocyte distribution width (RBC) [Ratio] 46.9 fl High 35.1-43.9 [facility] Glomerular filtration rate ( GFR) estimation/1.73 sq m using serum, plasma, or whole bOrdered By: Donna Cedeno on 03-05-2025 GFR/1.73 sq M.predicted among non-blacks MDRD (S/P/Bld) [Vol rate/Area] 96 mL/min/{1.73_m2} >60 [facility] Comment on above: mL/min/1.73m2 CKD-EP I Creatinine Equation (2020) Hematocrit Auto (Bld) [Volum e fraction]Ordered By: Donna Cedeno on 03-05-2025 Hematocrit (Bld) [Volume fraction] 37.4 % Low 40-54 [facility] Hemoglobin measurementOrdere d By: Donna Cedeno on 03-05-2025 Hemoglobin (Bld) [Mass/Vol] 13.0 g/dL 13.0-16.5 [facility] Immature granulocytes/100 WB C Auto (Bld)Ordered By: Donna Cedeno on 03-05-2025 Immature granulocytes/100 WBC (Bld) 0.200 % 0.0-0.9 [facility] Comment on above: IG% - Immature Granu locytes (promyelocytes, myelocytes and metamyelocytes) > 1% indicates that a LEFT SHIFT is Present. International normalized rat io (INR) calculationOrdered By: Donna Cedeno on 03-05-2025 INR Coag (Bld) [Relative time] 2.1 {INR} [facility] MCV (mean corpuscular volume ) determinationOrdered By: Donna Cedeno on 03-05-2025 MCV (RBC) [Entitic vol] 90.8 fL 80-94 [facility] Mean corpuscular hemoglobin (MCH) determinationOrdered By: Donna Cedeno on 03-05-2025 MCH (RBC) [Entitic mass] 31.6 pg 27.0-32.0 [facility] Mean corpuscular hemoglobin concentration (MCHC) determinationOrdered By: Donna Cedeno on 03-05-2025 MCHC (RBC) [Mass/Vol] 34.8 g/dL 32-36 [facility] Mean platelet volume determi nationOrdered By: Donna Cedeno on 03-05-2025 Platelet mean volume (Bld) [Entitic vol] 9.7 fL 6.2-12.0 [facility] Monocyte percentageOrdered B y: Donna Cedeno on 03-05-2025 Monocytes/100 WBC (Bld) 3.0 % 0-10 [facility] Neutrophil percentageOrdered By: Donna Cedeno on 03-05-2025 Neutrophils/100 WBC (Bld) 88.6 % High 47-70 [facility] Nucleated red blood cell per centageOrdered By: Donna Cedeno on 03-05-2025 Nucleated RBC/100 WBC (Bld) [Ratio] 0 % 0-5 [facility] Platelet countOrdered By: Kenji Cedeno on 03-05-2025 Platelets (Bld) [#/Vol] 179 10*3/uL 150-450 [facility] Potassium measurement (mass/ volume)Ordered By: Donna Cedeno on 03-05-2025 Potassium (Unsp spec) [Mass/Vol] 3.9 mmol/L 3.3-5.1 [facility] Prothrombin Time w/INRon INR Coag (PPP) [Relative time] 2.1 {INR} Normal [facility] Comment on above: Performed By: #### L 300.3900, L500.2500, L100.0100 #### [facility] [address] [place], [address] PT Coag (PPP) [Time] 23.9 s High 11.7-14.9 [facility] Comment on above: Performed By: #### L 300.3900, L500.2500, L100.0100 #### [facility] [address] [place], [address] Prothrombin timeOrdered By: Donna Cedeno on 03-05-2025 PT Coag (PPP) [Time] 23.9 s High 11.7-14.9 [facility] RBC Auto (Bld) [#/Vol]Ordere d By: Donna Cedeno on 03-05-2025 RBC (Bld) [#/Vol] 4.12 10*6/uL Low 4.6-6.2 [facility] Serum creatinine measurement (mass/volume)Ordered By: Donna Cedeno on 03-05-2025 Creatinine [Mass/Vol] 0.82 mg/dL 0.70-1.20 [facility] Serum glucose measurement (m ass/volume)Ordered By: Donna Cedeno on 03-05-2025 Glucose [Mass/Vol] 154 mg/dL High 70-99 [facility] Serum or plasma calcium laura urement (mass/volume)Ordered By: Donna Cedeno on 03-05-2025 Calcium [Mass/Vol] 8.2 mg/dL 7.6-11.0 [facility] Serum or plasma urea nitroge n measurement (mass/volume)Ordered By: Donna Cedeno on 03-05-2025 Urea nitrogen [Mass/Vol] 15 mg/dL 4-19 [facility] Sodium levelOrdered By: Norberto Cedeno on 03-05-2025 Sodium [Moles/Vol] 141 mmol/L 133-145 [facility] White blood cell (WBC) count Ordered By: Donna Cedeno on 03-05-2025 WBC (Bld) [#/Vol] 8.0 10*3/uL 4.4-11.0 [facility] Absolute lymphocyte countOrd ered By: Jennifer Goel on 03-04-2025 Lymphocytes Auto (Unsp spec) [#/Vol] 1.40 10*3/uL 0.83-4.51 [facility] Absolute neutrophil countOrd ered By: Jenniefr Goel on 03-04-2025 Neutrophils (Bld) [#/Vol] 6.7 10*3/uL 2.0-7.7 [facility] Anion gap in Serum or Plasma Ordered By: Jennifer Goel on 03-04-2025 Anion gap [Moles/Vol] 14 mmol/L 5- [facility] Automated lymphocyte count a s percentage of total leukocytesOrdered By: Jennifer Goel on 03-04-2025 Lymphocytes/100 WBC Auto (Unsp spec) 15.3 % Low 19-41 [facility] BUN/creatinine ratioOrdered By: Jennifer Goel on 03-04-2025 Urea nitrogen/Creatinine [Mass ratio] 13.4 mg/mg 10- [facility] Basic Metabolic Profile (BMP )on 03-04-2025 BUN/CRE 13.4 RATIO Normal - [facility] Comment on above: Performed By: #### L 9200.0000 #### [facility] [address] [facility] [address] Calcium [Mass/Vol] 9.1 mg/dL Normal 7.6-11.0 [facility] Comment on above: Performed By: #### L 9200.0000 #### [facility] [address] [place], [address] Chloride [Moles/Vol] 104 mmol/L Normal 98-108 [facility] Comment on above: Performed By: #### L 9200.0000 #### [facility] [address] [place], [address] CO2 [Moles/Vol] 22.3 mmol/L Normal 21.0-32.0 [facility] Comment on above: Performed By: #### L 9200.0000 #### [facility] [address] [place], [address] Creatinine [Mass/Vol] 1.05 mg/dL Normal 0.70-1.20 [facility] Comment on above: Performed By: #### L 9200.0000 #### [facility] [address] [place], [address] ECRCL 69.52 ml/min Normal 50-250 [facility] Comment on above: Performed By: #### L 9200.0000 #### [facility] [address] [place], [address] GAP 14 Normal 5-15 [facility] Comment on above: Performed By: #### L 9200.0000 #### [facility] [address] [place], [address] GFR/1.73 sq M.predicted among non-blacks MDRD (S/P/Bld) [Vol rate/Area] 77 mL/min/{1.73_m2} Normal >60 [facility] Comment on above: Result Comment: mL/m in/1.73m2 CKD-EPI Creatinine Equation (2020) Performed By: #### L 9200.0000 #### [facility] [address] [place], [address] Glucose [Mass/Vol] 97 mg/dL Normal 70-99 [facility] Comment on above: Performed By: #### L 9200.0000 #### [facility] [address] [place], [address] Potassium [Moles/Vol] 3.7 mmol/L Normal 3.3-5.1 [facility] Comment on above: Performed By: #### L 9200.0000 #### [facility] [address] [place], [address] Sodium [Moles/Vol] 140 mmol/L Normal 133-145 [facility] Comment on above: Performed By: #### L 9200.0000 #### [facility] [address] [place], [address] Urea nitrogen [Mass/Vol] 14 mg/dL Normal 4-19 [facility] Comment on above: Performed By: #### L 9200.0000 #### [facility] [address] [place], [address] Basophil percentageOrdered B y: Jennifer Goel on 03-04-2025 Basophils/100 WBC (Bld) 0.5 % 0-1 [facility] CBC W/Diff, Automatedon 02-18 Absolute Lymph 1.40 X10 3/uL Normal 0.83-4.51 [facility] Comment on above: Performed By: #### L 500.2500, L100.0100, L300.3900 #### [facility] [address] [place], [address] Absolute Neut 6.7 X10 3/uL Normal 2.0-7.7 [facility] Comment on above: Performed By: #### L 500.2500, L100.0100, L300.3900 #### [facility] [address] [place], [address] Basophils/100 WBC (Bld) 0.5 % Normal 0-1 [facility] Comment on above: Performed By: #### L 500.2500, L100.0100, L300.3900 #### [facility] [address] [place], [address] Eosinophils/100 WBC (Bld) 0.5 % Normal 0-5 [facility] Comment on above: Performed By: #### L 500.2500, L100.0100, L300.3900 #### [facility] [address] [place], [address] Erythrocyte distribution width (RBC) [Ratio] 14.3 % Normal 11.6-14.6 [facility] Comment on above: Performed By: #### L 500.2500, L100.0100, L300.3900 #### [facility] [address] [place], [address] Hematocrit (Bld) [Volume fraction] 42.4 % Normal 40-54 [facility] Comment on above: Performed By: #### L 500.2500, L100.0100, L300.3900 #### [facility] [address] [place], [address] Hemoglobin (Bld) [Mass/Vol] 14.6 g/dL Normal 13.0-16.5 [facility] Comment on above: Performed By: #### L 500.2500, L100.0100, L300.3900 #### [facility] [address] [place], [address] IG% 0.200 Normal 0.0-0.9 [facility] Comment on above: Result Comment: IG% - Immature Granulocytes (promyelocytes, myelocytes and metamyelocytes) > 1% indicates that a LEFT SHIFT is Present. Performed By: #### L 500.2500, L100.0100, L300.3900 #### [facility] [address] [place], [address] Lymphocytes/100 WBC (Bld) 15.3 % Low 19-41 [facility] Comment on above: Performed By: #### L 500.2500, L100.0100, L300.3900 #### [facility] [address] [place], [address] MCH (RBC) [Entitic mass] 31.7 pg Normal 27.0-32.0 [facility] Comment on above: Performed By: #### L 500.2500, L100.0100, L300.3900 #### [facility] [address] [place], [address] MCHC (RBC) [Mass/Vol] 34.4 g/dL Normal 32-36 [facility] Comment on above: Performed By: #### L 500.2500, L100.0100, L300.3900 #### [facility] [address] [place], [address] MCV (RBC) [Entitic vol] 92.2 fL Normal 80-94 [facility] Comment on above: Performed By: #### L 500.2500, L100.0100, L300.3900 #### [facility] [address] [place], [address] Monocytes/100 WBC (Bld) 10.6 % High 0-10 [facility] Comment on above: Performed By: #### L 500.2500, L100.0100, L300.3900 #### [facility] [address] [place], [address] Neutrophils/100 WBC (Bld) 72.9 % High 47-70 [facility] Comment on above: Performed By: #### L 500.2500, L100.0100, L300.3900 #### [facility] [address] [place], [address] Nucleated RBC (Bld) [#/Vol] 0 10*3/uL Normal 0-5 [facility] Comment on above: Performed By: #### L 500.2500, L100.0100, L300.3900 #### [facility] [address] [place], [address] Platelet mean volume (Bld) [Entitic vol] 9.8 fL Normal 6.2-12.0 [facility] Comment on above: Performed By: #### L 500.2500, L100.0100, L300.3900 #### [facility] [address] [place], [address] Platelets (Bld) [#/Vol] 203 10*3/uL Normal 150-450 [facility] Comment on above: Performed By: #### L 500.2500, L100.0100, L300.3900 #### [facility] [address] [place], [address] RBC (Bld) [#/Vol] 4.60 10*6/uL Normal 4.6-6.2 [facility] Comment on above: Performed By: #### L 500.2500, L100.0100, L300.3900 #### [facility] [address] [place], [address] RDW SD 48.4 fl High 35.1-43.9 [facility] Comment on above: Performed By: #### L 500.2500, L100.0100, L300.3900 #### [facility] [address] [place], [address] WBC (Bld) [#/Vol] 9.2 10*3/uL Normal 4.4-11.0 [facility] Comment on above: Performed By: #### L 500.2500, L100.0100, L300.3900 #### [facility] [address] [place], [address] Carbon dioxide, total [Moles /volume] in [place] venous bloodOrdered By: Jennifer Goel on 03-04-2025 CO2 [Moles/Vol] 22.3 mmol/L 21.0-32.0 [facility] Chloride assayOrdered By: Sun Goel on 03-04-2025 Chloride [Moles/Vol] 104 mmol/L 98-108 [facility] Emergency Department Summary on 03-04-2025 Emergency Department Summary [facility] Medical Records Department [address] [place] [address] Emergency Department Summary 03/04/25 MR#: [id number] Acct: [id number] Name: RICH JAMES I Rep #: [id number] : 1955 69 From: Jennifer PHILLIP PCP: Dr. Marion Feng MD Status:ADM IN Location: [address] History of Present Illness Chief Complaint: [...] test and was sent here for evaluation. [facility] Medical History History of cardioversion GERD [...] Pressure Me (more content not included)... Normal [facility] Eosinophil percentageOrdered By: Jennifer Goel on 03-04-2025 Eosinophils/100 WBC (Bld) 0.5 % 0-5 [facility] Erythrocyte distribution wid th ratioOrdered By: Jennifer Goel on 03-04-2025 Erythrocyte distribution width (RBC) [Ratio] 14.3 % 11.6-14.6 [facility] Erythrocyte distribution wid th standard deviationOrdered By: Jennifer Goel on 03-04-2025 Erythrocyte distribution width (RBC) [Ratio] 48.4 fl High 35.1-43.9 [facility] Glomerular filtration rate ( GFR) estimation/1.73 sq m using serum, plasma, or whole bOrdered By: Jennifer Goel on 03-04-2025 GFR/1.73 sq M.predicted among non-blacks MDRD (S/P/Bld) [Vol rate/Area] 77 mL/min/{1.73_m2} >60 [facility] Comment on above: mL/min/1.73m2 CKD-EP I Creatinine Equation (2020) H AND P Exam - [facility] 03-04-2025 H&P Exam - Hospitalist [facility] Medical Records Department [address] [place] [address] H P Exam - Hospitalist 03/04/25 1813 MR#: [id number] Acct: [id number] Name: RICH JAMES I Rep #: [id number] : 1955 69 From: Donna Cedeno MD PCP: Dr. Marion Feng MD Status:ADM IN Location: MS3 OC957-2 HPI - General General Date of Admission: 03/04/25 Date of Service: 03/04/25 Chief Complaint: Difficulty swallowing medications HPI Narrative RICH JAMES, is a 69-year-old male history of A-fib on Coumadin, COPD, hyperlipidemia, depression presented to [facility] ED 03/04/2025 with 3 days of [...] no chest pain. No rashes, bleeding, bruising. [facility] Medical History History of cardioversion GERD (gastroesophageal [...] shoulder surgery (more content not included)... Normal [facility] Hematocrit Auto (Bld) [Volum e fraction]Ordered By: Jennifer Goel on 03-04-2025 Hematocrit (Bld) [Volume fraction] 42.4 % 40-54 [facility] Hemoglobin measurementOrdere d By: Jennifer Goel on 03-04-2025 Hemoglobin (Bld) [Mass/Vol] 14.6 g/dL 13.0-16.5 [facility] Immature granulocytes/100 WB C Auto (Bld)Ordered By: Jennifer Goel on 03-04-2025 Immature granulocytes/100 WBC (Bld) 0.200 % 0.0-0.9 [facility] Comment on above: IG% - Immature Granu locytes (promyelocytes, myelocytes and metamyelocytes) > 1% indicates that a LEFT SHIFT is Present. International normalized rat io (INR) calculationOrdered By: Jennifer Goel on 03-04-2025 INR Coag (Bld) [Relative time] 2.2 {INR} [facility] MCV (mean corpuscular volume ) determinationOrdered By: Jennifer Goel on 03-04-2025 MCV (RBC) [Entitic vol] 92.2 fL 80-94 [facility] Mean corpuscular hemoglobin (MCH) determinationOrdered By: Jennifer Goel on 03-04-2025 MCH (RBC) [Entitic mass] 31.7 pg 27.0-32.0 [facility] Mean corpuscular hemoglobin concentration (MCHC) determinationOrdered By: Jennifer Goel on 03-04-2025 MCHC (RBC) [Mass/Vol] 34.4 g/dL 32-36 [facility] Mean platelet volume determi nationOrdered By: Jennifer Goel on 03-04-2025 Platelet mean volume (Bld) [Entitic vol] 9.8 fL 6.2-12.0 [facility] Monocyte percentageOrdered B y: Jennifer Goel on 03-04-2025 Monocytes/100 WBC (Bld) 10.6 % High 0-10 [facility] Neck for Soft Tissueon 03-04 Neck for Soft Tissue [facility] Imaging Services [address] [place] [address] Neck for Soft Tissue MR#: [id number] Acct: [id number] Name: RICH JAMES I Rep #: [id number] : 1955 M 69 From: Ankur Downey MD PCP: Dr. Marion Feng MD Status: REG ER Study: Neck for Soft Tissue Date of Exam: 03/04/25 Exam# [id number] Ordering Dr: Jennifer Goel PROCEDURE: NECK FOR [...] appearance of the soft tissues. Reading Location: [facility] CC: Dr. Marion Feng MD; KENJI Smith Baker Bread: Signed Normal [facility] Neutrophil percentageOrdered By: Jennifer Goel on 03-04-2025 Neutrophils/100 WBC (Bld) 72.9 % High 47-70 [facility] Nucleated red blood cell per centageOrdered By: Jennifer Goel on 03-04-2025 Nucleated RBC/100 WBC (Bld) [Ratio] 0 % 0-5 [facility] Platelet countOrdered By: Sun Goel on 03-04-2025 Platelets (Bld) [#/Vol] 203 10*3/uL 150-450 [facility] Potassium measurement (mass/ volume)Ordered By: Jennifer Goel on 03-04-2025 Potassium (Unsp spec) [Mass/Vol] 3.7 mmol/L 3.3-5.1 [facility] Prothrombin Time w/INRon INR Coag (PPP) [Relative time] 2.2 {INR} Normal [facility] Comment on above: Performed By: #### L 9200.0000 #### [facility] [address] [place], [place], [address] PT Coag (PPP) [Time] 24.8 s High 11.7-14.9 [facility] Comment on above: Performed By: #### L 9200.0000 #### [facility] [address] [place], [place], [address] Prothrombin timeOrdered By: Jennifer Goel on 03-04-2025 PT Coag (PPP) [Time] 24.8 s High 11.7-14.9 [facility] RBC Auto (Bld) [#/Vol]Ordere d By: Jennifer Goel on 03-04-2025 RBC (Bld) [#/Vol] 4.60 10*6/uL 4.6-6.2 [facility] Rapid group A Streptococcus antigen assay at point of careOrdered By: Renny Mora on 03-04-2025 S. pyogenes Ag IA.rapid Ql (Throat) Negative [facility] Serum creatinine measurement (mass/volume)Ordered By: Jennifer Goel on 03-04-2025 Creatinine [Mass/Vol] 1.05 mg/dL 0.70-1.20 [facility] Serum glucose measurement (m ass/volume)Ordered By: Jennifer Goel on 03-04-2025 Glucose [Mass/Vol] 97 mg/dL 70-99 [facility] Serum or plasma calcium laura urement (mass/volume)Ordered By: Jennifer Goel on 03-04-2025 Calcium [Mass/Vol] 9.1 mg/dL 7.6-11.0 [facility] Serum or plasma urea nitroge n measurement (mass/volume)Ordered By: Jennifer Goel on 03-04-2025 Urea nitrogen [Mass/Vol] 14 mg/dL 4-19 [facility] Sodium levelOrdered By: Jennifer Goel on 03-04-2025 Sodium [Moles/Vol] 140 mmol/L 133-145 [facility] Soft Tissue Neck WITH Contra ston 03-04-2025 Soft Tissue Neck WITH Contrast [facility] Imaging Services [address] [place], [place] [address] Soft Tissue Neck WITH Contrast MR#: [id number] Acct: [id number] Name: RICH JAMES I Rep #: [id number] : 1955 M 69 From: Ankur Downey MD PCP: Dr. Marion Feng MD Status: REG ER Study: Soft Tissue Neck WITH Contrast Date of Exam: 0 03/04/25 Exam# [id number] Ordering Dr: Jennifer Goel PROCEDURE: SOFT TISSUE [...] 4 p.m. Eastern standard time. Reading Location: [id number] CC: Dr. Marion Feng MD; KENJI Smith Baker Bread: Signed Normal [facility] Urgent Care Visit Reporton 0 03-04-2025 Urgent Care Visit Report [facility] [address], [address] [place] [address] OFFICE VISIT Date of Service: 03/04/25 MR#: [id number] Acct: [id number] Name: RICH JAMES I Rep #: [id number] : 1955 Provider: KENJI Vu Age/Sex: 69/M Location: [facility] Status: Signed Intake Vital Signs 12/10/24 07:56 [...] days. Hurts to swallow. Headache this morning. [facility] Medical History History of cardioversion GERD (gastroesophageal [...] Exam Const General: cooperative and healthy appearing [facility] Head: normal to inspection Ears: hearing grossly [...] Code Off (more content not included)... Normal [facility] White blood cell (WBC) count Ordered By: Jennifer Goel on 03-04-2025 WBC (Bld) [#/Vol] 9.2 10*3/uL 4.4-11.0 [facility] Office Visiton 01-27-2025 Follow-up visit [id number] Rich James 1955 M Date Provider Department Center 01/27/2025 [facility] None Family History Problem Relation Age of Onset Diabetes Father Family Status - Relation Status Age at Father Level of Service:32015 [place] POSTOP FOLLOW UP VISIT RELATED TO ORIGINAL PX Reason for Visit and Comments: Post-op [483] Normal [facility] Progress Noteon 01-27-2025 Progress Note [facility] Medical Group: [facility] [address] [place] [address] [address] [facility] [address] Dept: [phone] Dept Loc: [phone] Visit type: Established patient - in person [...] M.D./George Delaney M.D. Intraoperative consultation performed at [facility], [address] [place] [address]; CLIA: [id number]; Joint Commission: [id number]; CAP: [id number] Clinical Information Solitary pulmonary nodule - R91.1 [...] 1.7 x 1 x 1 cm. 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 Disclaime (more content not included)... Normal [facility] International normalized rat io (INR) measurement by fingerstickOrdered By: Kassy Stack on 01-17-2025 INR Coag (BldC) [Relative time] 2.1 [facility] Comment on above: Critical Value > 4.0 Protime w/INR Fingerstickon 01-17-2025 INR Coag (PPP) [Relative time] 2.1 {INR} Normal [facility] Comment on above: Result Comment: Crit ical Value > 4.0 Performed By: #### L 9200.0000 #### [facility] [address] [place], [place], [id number] Protime [place] 22.7 SEC High 11.7-14.9 [facility] Comment on above: Performed By: #### L 9200.0000 #### [facility] [address] [facility] [place], [place], [address] Whole blood prothrombin time Ordered By: Kassy Stack on 01-17-2025 PT Coag (Bld) [Time] 22.7 s High 11.7-14.9 [facility] BASIC METABOLIC PANELon 12-20 Anion gap [Moles/Vol] 9 mmol/L Normal 3-13 [facility] Comment on above: Performed By: #### L AB15 ####Clinical Statistics Manager: APOLONIA PADILLA ([phone])[facility] [place] [address] Calcium [Mass/Vol] 8.5 mg/dL Low 8.8-10.0 [facility] Comment on above: Performed By: #### L AB15 ####Clinical Statistics Manager: APOLONIA PADILLA ([phone])[facility] [place] [address] Chloride [Moles/Vol] 107 mmol/L Normal 98-107 [facility] Comment on above: Performed By: #### L AB15 ####Clinical Statistics Manager: APOLONIA PADILLA ([phone])[facility] ([facility])[address] [place] [address] CO2 [Moles/Vol] 23 mmol/L Normal 23-31 [facility] Comment on above: Performed By: #### L AB15 ####Clinical Statistics Manager: APOLONIA PADILLA ([phone])[facility] ([facility])[address] [place] [address] Creatinine [Mass/Vol] 0.89 mg/dL Normal 0.72-1.25 [facility] Comment on above: Performed By: #### L AB15 ####Clinical Statistics Manager: APOLONIA PADILLA ([phone])[facility])[address] [place] [address] GLOMERULAR FILTRATION RATE ML/MIN/1.73 SQ M.PREDICTED >90.0 Normal >60.0 [facility] Comment on above: Result Comment: Calc ulation based on the Chronic Kidney Disease Epidemiology Collaboration (CKD-EPI) equation refit without adjustment for race Performed By: #### L AB15 ####Clinical Statistics Manager: APOLONIA PADILLA ([phone])[facility] ([facility])[address] [place] [address] Glucose [Mass/Vol] 105 mg/dL Normal 82-115 [facility] Comment on above: Performed By: #### L AB15 ####Clinical Statistics Manager: APOLONIA PADILLA ([phone])[facility] ([facility])[address] [place] [address] [place] Potassium [Moles/Vol] 4.2 mmol/L Normal 3.5-5.1 [facility] Comment on above: Result Comment: [facility] potassium values may be up to 0.5 mmol/L lower than serum values. Performed By: #### L AB15 ####Clinical Statistics Manager: APOLONIA PADILLA ([phone])[facility] ([facility])[address] [place] [address] Sodium [Moles/Vol] 139 mmol/L Normal 136-145 [facility] Comment on above: Performed By: #### L AB15 ####Clinical Statistics Manager: APOLONIA PADILLA ([phone])[facility])[address] [place] [address] Urea nitrogen [Mass/Vol] 15 mg/dL Normal 9-23 [facility] Comment on above: Performed By: #### L AB15 ####Clinical Statistics Manager: APOLONIA PADILLA ([phone])[facility] ([facility])[address] [place] [address] Basic metabolic 1998 panelon 01-14-2025 Anion gap [Moles/Vol] 9 mmol/L 3 - 13 mmol/L [facility] Calcium [Mass/Vol] 8.5 mg/dL Low 8.8 - 10. 0 mg/dL [facility] Chloride [Moles/Vol] 107 mmol/L 98 - 10 7 mmol/L [facility] CO2 [Moles/Vol] 23 mmol/L 23 - 31 mmol/L [facility] Creatinine [Mass/Vol] 0.89 mg/dL 0.72 - 1.25 mg/dL [facility] GFR/1.73 sq M.predicted (S/P/Bld) [Vol rate/Area] - PINF [facility] Comment on above: Calculation based on the Chronic Kidney Disease Epidemiology Collaboration (CKD-EPI) equation refit without adjustment for race Glucose [Mass/Vol] 105 mg/dL 82 - 115 mg/dL [facility] Interpretation and review of laboratory results Abnormal [facility] Potassium [Moles/Vol] 4.2 mmol/L 3.5 - 5.1 mmol/L [facility] Comment on above: Plasma potassium vinayak ues may be up to 0.5 mmol/L lower than serum values. Sodium [Moles/Vol] 139 mmol/L 136 - 145 mmol/L [facility] Urea nitrogen [Mass/Vol] 15 mg/dL 9 - 23 mg/dL [facility] CBC (HEMOGRAM)on 01-14-2025 Erythrocyte distribution width (RBC) [Ratio] 13.8 % Normal 11.5-15.0 [facility] Comment on above: Performed By: #### L AB294 ####Clinical Statistics Manager: APOLONIA PADILLA ([phone])[facility])[address] [place] [address] Hematocrit (Bld) [Volume fraction] 41.4 % Normal 40.0-52.0 [facility] Comment on above: Performed By: #### L AB294 ####Clinical Statistics Manager: APOLONIA PADILLA ([phone])[address] Hemoglobin (Bld) [Mass/Vol] 13.8 g/dL Normal 13.0-18.0 [facility] Comment on above: Performed By: #### L AB294 ####Clinical Statistics Manager: APOLONIA PADILLA ([phone])[address] MCH (RBC) [Entitic mass] 30.9 pg Normal 26.0-34.0 [facility] Comment on above: Performed By: #### L AB294 ####Clinical Statistics Manager: APOLONIA PADILLA ([id number])[address] MCHC 33.3 % Normal 30.5-36.0 [facility] Comment on above: Performed By: #### L AB294 ####Clinical Statistics Manager: APOLONIA PADILLA ([phone])[address] MCV (RBC) [Entitic vol] 92.6 fL Normal 77.0-99.0 [facility] Comment on above: Performed By: #### L AB294 ####Clinical Statistics Manager: APOLONIA PADILLA ([phone])[facility] ([facility])[address] [place] [address] Platelet mean volume (Bld) [Entitic vol] 10.1 fL Normal 9.0-12.7 [facility] Comment on above: Performed By: #### L AB294 ####Clinical Statistics Manager: APOLONIA PADILLA ([id number])[facility] ([facility])[address] [place] [address] Platelets (Bld) [#/Vol] 166 10*3/uL Normal 140-440 [facility] Comment on above: Performed By: #### L AB294 ####Clinical Statistics Manager: APOLONIA PADILLA ([id number])[facility] ([facility])[address] [place] [address] RBC (Bld) [#/Vol] 4.47 10*6/uL Normal 4.40-5.90 [facility] Comment on above: Performed By: #### L AB294 ####Clinical Statistics Manager: APOLONIA PADILLA ([id number])[facility] ([facility])[address] [place] [address] WBC (Bld) [#/Vol] 6.6 10*3/uL Normal 3.6-10.7 [facility] Comment on above: Performed By: #### L AB294 ####Clinical Statistics Manager: APOLONIA PADILLA ([id number])[facility])[address] [place] [address] CBC panel Auto (Bld)on 01-14 Erythrocyte distribution width (RBC) [Ratio] 13.8 % 11.5 - 15.0 % [facility] Hematocrit (Bld) [Volume fraction] 41.4 % 40.0 - 52.0 % [facility] Hemoglobin (Bld) [Mass/Vol] 13.8 g/dL 13.0 - 18.0 g/dL [facility] Interpretation and review of laboratory results Normal [facility] MCH (RBC) [Entitic mass] 30.9 pg 26.0 - 34.0 pg [facility] MCHC (RBC) [Mass/Vol] 33.3 % 30.5 - 36.0 % [facility] MCV (RBC) [Entitic vol] 92.6 fL 77.0 - 99.0 fL [facility] Platelet mean volume (Bld) [Entitic vol] 10.1 fL 9.0 - 12.7 fL [facility] Platelets (Bld) [#/Vol] 166 10*3/uL 140 - 440 10*3/uL [facility] RBC (Bld) [#/Vol] 4.47 10*6/uL 4.40 - 5.9 0 10*6/uL [facility] WBC (Bld) [#/Vol] 6.6 10*3/uL 3.6 - 10.7 10*3/uL [facility] Laboratory - Coagulationon 0 01-14-2025 PT Coag (Bld) [Time] 16.7 s High 9.0 - 12.0 s [facility] Nursing Noteon 01-14-2025 Nursing Note Discharged ordered reviewed and signed no questions at this time. Normal [facility] PROTHROMBIN TIMEon INR Coag (PPP) [Relative time] 1.6 {INR} High 0.9-1.1 [facility] Comment on above: Result Comment: Hernán mmended [...] Myocardial Infarction Performed By: #### L [id number] ####Clinical Statistics Manager: APOLONIA PADILLA ([phone])[facility] ([facility])[address] [place] [address] PT Coag (PPP) [Time] 16.7 s High 9.0-12.0 [facility] Comment on above: Performed By: #### L [id number] ####Clinical Statistics Manager: APOLONIA PADILLA ([phone])[facility] ([facility])[address] [place] [address] PT Coag (Bld) [Time]on 01-14 INR Coag (PPP) [Relative time] 1.6 {INR} High 0.9 - 1.1 [facility] Comment on above: Recommended Anticoag ulant Therapy: [...] Interpretation and review of laboratory results Abnormal [facility] Progress Noteon 01-14-[address] [facility] Anticoagulatio n Management Service (BRITTANY) Inpatient Warfarin Consult HPI: Rich James is a 69 y.o. male admitted on 01/10/2025 for Solitary pulmonary nodule [R91.1] Lung nodule [R91.1]. Medical History[1] Patient is on warfarin for DVT, Afib, Protein C Deficiency and has a goal INR 2.0 - 3.0. Warfarin is currently managed by [facility]. Pt's home dose of warfarin [...] candidate 2025, staffed with Renata Hassan PharmD, [facility] BRITTANY Consult Service is available daily [phone] via [employer] Chat. [1] Past Medical History: Diagnosis Date COPD (chronic obstructive pulmonary disease) (HCC) GERD (gastroesophageal reflux disease) Hiatal hernia 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 Obesity FIFI (obstructive sleep apnea) Paroxysmal atrial fibrillation (HCC) Protein deficiency anemia Right bundle branch block Normal [facility] XR CHEST 1 VIEWon 01-14-2025 XR CHEST 1 VIEW Patient Name: RICH JAMES : 1955 [facility]#: [id number] Exam Date/Time: 01/14/2025 08:50 Procedure: XR CHEST [...] Signed Date/Time: 01/14/2025 8:54 AM EDT Normal [facility] XR Chest Single viewon 01-14 1. Small right apica l pneumothorax, unchanged. 2. Interval right thoracostomy tube was removed since prior exam. Report Dictated on Electronically Signed By: Josafat Washington DO Electronically Signed Date/Time: 01/14/2025 8:54 AM EDT [facility] 1955 [id number] Exam Date/Time: 01/14/2025 08:50 Procedure: XR CHEST [...] thoracostomy tube was removed since prior exam. [facility] Dotted Block SYSTEM Josafat Washington DO - 01/14/2025 Patient Name: RICH JAMES : 1955 [id number] Exam Date/Time: 01/14/2025 08:50 Procedure: XR CHEST [...] Electronically Signed Date/Time: 01/14/2025 8:54 AM EDT [facility] Radiology Study observation (narrative) [facility] XR Chest Single viewOrdered By: Josafat Washington on 01-14-2025 [facility] Work Phone: 30on 01-13-2025 30 Problem: Pain - Adul t Goal: Verbalizes/displays adequate comfort level or baseline comfort level Outcome: Progressing Problem: Safety - Adult Goal: Free from fall injury Outcome: Progressing Problem: Discharge Planning Goal: Discharge to home or other facility with appropriate resources Outcome: Progressing Normal [facility] 30 Problem: Pain - Adul t Goal: [...] and maintained or improved Outcome: Progressing Normal [facility] BASIC METABOLIC PANELon 12-20 Anion gap [Moles/Vol] 6 mmol/L Normal 3-13 [facility] Comment on above: Performed By: #### L AB15 ####Clinical Statistics Manager: APOLONIA PADILLA ([id number])[facility])[address] [place] [address] Calcium [Mass/Vol] 8.5 mg/dL Low 8.8-10.0 [facility] Comment on above: Performed By: #### L AB15 ####Clinical Statistics Manager: APOLONIA PADILLA ([phone])[facility] ([facility])[address] [place] [address] [place] Chloride [Moles/Vol] 105 mmol/L Normal 98-107 [facility] Comment on above: Performed By: #### L AB15 ####Clinical Statistics Manager: APOLONIA PADILLA ([phone])[facility])[address] [place] [address] [place] CO2 [Moles/Vol] 25 mmol/L Normal 23-31 [facility] Comment on above: Performed By: #### L AB15 ####Clinical Statistics Manager: APOLONIA PADILLA ([phone])[facility])[address] [place] [address] Creatinine [Mass/Vol] 1.00 mg/dL Normal 0.72-1.25 [facility] Comment on above: Performed By: #### L AB15 ####Clinical Statistics Manager: APOLONIA PADILLA ([phone])[facility])[address] [place] [address] GLOMERULAR FILTRATION RATE ML/MIN/1.73 SQ M.PREDICTED 82.0 mL/min/1.73m*2 Normal >60.0 [facility] Comment on above: Result Comment: Calc ulation based on the Chronic Kidney Disease Epidemiology Collaboration (CKD-EPI) equation refit without adjustment for race Performed By: #### L AB15 ####Clinical Statistics Manager: APOLONIA PADILLA ([phone])[facility])[address] [place] [address] Glucose [Mass/Vol] 101 mg/dL Normal 82-115 [facility] Comment on above: Performed By: #### L AB15 ####Clinical Statistics Manager: APOLONIA PADILLA ([phone])[address] Potassium [Moles/Vol] 4.6 mmol/L Normal 3.5-5.1 [facility] Comment on above: Result Comment: [facility] potassium values may be up to 0.5 mmol/L lower than serum values. Performed By: #### L AB15 ####Clinical Statistics Manager: APOLONIA PADILLA ([phone])[facility])[address] [place] [address] [place] Sodium [Moles/Vol] 136 mmol/L Normal 136-145 [facility] Comment on above: Performed By: #### L AB15 ####Clinical Statistics Manager: APOLONIA PADILLA ([phone])[facility])[address] [place] [address] Urea nitrogen [Mass/Vol] 21 mg/dL Normal 9-23 [facility] Comment on above: Performed By: #### L AB15 ####Clinical Statistics Manager: APOLONIA PADILLA ([phone])[address] Basic metabolic 1998 panelon 01-13-2025 Anion gap [Moles/Vol] 6 mmol/L 3 - 13 mmol/L [facility] Calcium [Mass/Vol] 8.5 mg/dL Low 8.8 - 10. 0 mg/dL [facility] Chloride [Moles/Vol] 105 mmol/L 98 - 10 7 mmol/L [facility] CO2 [Moles/Vol] 25 mmol/L 23 - 31 mmol/L [facility] Creatinine [Mass/Vol] 1 mg/dL 0.72 - 1.25 mg/dL [facility] GFR/1.73 sq M.predicted (S/P/Bld) [Vol rate/Area] 82 mL/min - PINF [facility] Comment on above: Calculation based on the Chronic Kidney Disease Epidemiology Collaboration (CKD-EPI) equation refit without adjustment for race Glucose [Mass/Vol] 101 mg/dL 82 - 115 mg/dL [facility] Interpretation and review of laboratory results Abnormal [facility] Potassium [Moles/Vol] 4.6 mmol/L 3.5 - 5.1 mmol/L [facility] Comment on above: Plasma potassium vinayak ues may be up to 0.5 mmol/L lower than serum values. Sodium [Moles/Vol] 136 mmol/L 136 - 145 mmol/L [facility] Urea nitrogen [Mass/Vol] 21 mg/dL 9 - 23 mg/dL [facility] CBC (HEMOGRAM)on 01-13-2025 Erythrocyte distribution width (RBC) [Ratio] 14.2 % Normal 11.5-15.0 [facility] Comment on above: Performed By: #### L [id number] ####Clinical Statistics Manager: APOLONIA PADILLA ([id number])[address] Hematocrit (Bld) [Volume fraction] 43.4 % Normal 40.0-52.0 [facility] Comment on above: Performed By: #### L [id number] ####Clinical Statistics Manager: APOLONIA PADILLA ([id number])[address] Hemoglobin (Bld) [Mass/Vol] 14.3 g/dL Normal 13.0-18.0 [facility] Comment on above: Performed By: #### L [id number] ####Clinical Statistics Manager: APOLONIA PADILLA ([id number])[facility])[address] [place] [address] MCH (RBC) [Entitic mass] 31.0 pg Normal 26.0-34.0 [facility] Comment on above: Performed By: #### L AB294 ####Clinical Statistics Manager: APOLONIA PADILLA ([id number])[facility])[address] [place] [address] MCHC 32.9 % Normal 30.5-36.0 [facility] Comment on above: Performed By: #### L AB294 ####Clinical Statistics Manager: APOLONIA PADILLA ([phone])[facility])[address] [place] [address] MCV (RBC) [Entitic vol] 94.1 fL Normal 77.0-99.0 [facility] Comment on above: Performed By: #### L AB294 ####Clinical Statistics Manager: APOLONIA PADILLA ([phone])[facility])[address] [place] [address] Platelet mean volume (Bld) [Entitic vol] 9.7 fL Normal 9.0-12.7 [facility] Comment on above: Performed By: #### L [id number] ####Clinical Statistics Manager: APOLONIA PADILLA ([id number])[facility])[address] [place] [address] Platelets (Bld) [#/Vol] 165 10*3/uL Normal 140-440 [facility] Comment on above: Performed By: #### L [id number] ####Clinical Statistics Manager: APOLONIA PADILLA ([id number])[facility])[address] [place] [address] RBC (Bld) [#/Vol] 4.61 10*6/uL Normal 4.40-5.90 [facility] Comment on above: Performed By: #### L [id number] ####Clinical Statistics Manager: APOLONIA PADILLA ([id number])[facility] [place] [address] WBC (Bld) [#/Vol] 7.7 10*3/uL Normal 3.6-10.7 [facility] Comment on above: Performed By: #### L [id number] ####Clinical Statistics Manager: APOLONIA PADILLA ([phone])[facility] ([facility])[address] [place] [address] CBC panel Auto (Bld)on 01-13 Erythrocyte distribution width (RBC) [Ratio] 14.2 % 11.5 - 15.0 % [facility] Hematocrit (Bld) [Volume fraction] 43.4 % 40.0 - 52.0 % [facility] Hemoglobin (Bld) [Mass/Vol] 14.3 g/dL 13.0 - 18.0 g/dL [facility] Interpretation and review of laboratory results Normal [facility] MCH (RBC) [Entitic mass] 31 pg 26.0 - 34.0 pg [facility] MCHC (RBC) [Mass/Vol] 32.9 % 30.5 - 36.0 % [facility] MCV (RBC) [Entitic vol] 94.1 fL 77.0 - 99.0 fL [facility] Platelet mean volume (Bld) [Entitic vol] 9.7 fL 9.0 - 12.7 fL [facility] Platelets (Bld) [#/Vol] 165 10*3/uL 140 - 440 10*3/uL [facility] RBC (Bld) [#/Vol] 4.61 10*6/uL 4.40 - 5.9 0 10*6/uL [facility] WBC (Bld) [#/Vol] 7.7 10*3/uL 3.6 - 10.7 10*3/uL [facility] Laboratory - Coagulationon 0 01-13-2025 PT Coag (Bld) [Time] 11.8 s 9.0 - 12.0 s [facility] PROTHROMBIN TIMEon INR Coag (PPP) [Relative time] 1.1 {INR} Normal 0.9-1.1 [facility] Comment on above: Result Comment: Hernán mmended [...] Infarction Performed By: #### L [id number] #### Clinical Statistics Manager: APOLONIA PADILLA ([id number]) [facility] ([facility]) [address] [place] [address] PT Coag (PPP) [Time] 11.8 s Normal 9.0-12.0 [facility] Comment on above: Performed By: #### Caryn AB320 #### Clinical Statistics Manager: APOLONIA PADILLA ([id number]) [facility] ([facility]) [address] [place] [address] PT Coag (Bld) [Time]on 01-13 INR Coag (PPP) [Relative time] 1.1 {INR} 0.9 - 1.1 [facility] Comment on above: Recommended Anticoag ulant Therapy: [...] Interpretation and review of laboratory results Normal [facility] Progress Noteon 01-13-2025 Progress Note Reviewed with surgeon. Ok to d/c CT Chest tube assessed: no air leak, subcutaneous air noted. Chest tube removed without difficulty and dressing applied. Patient tolerated well. Patient and nurse educated on possible complications to observe for. Will continue to monitor. Follow up CXR in am unless new symptoms of respiratory distress Normal [facility] Progress Note - Attestation signed by Eva Estevez PT at 01/13/2025 3:54 PM Goals met, OK to discharge from PT standpoint. Recommend use of mobility aides for encouraging walking throughout LOS. PHYSICAL THERAPY [facility] Treatment Note Name/MRN: Rich James ([id number]) Date of : 1955 Age: 69 y.o. Room[facility]: [facility] Discharge Recommendation: Home with assist [...] Minutes (GT/Ther Ex) Maile Blount, ROBERT Thomas, HALAL BUTCHER Normal [facility] Progress Note [facility] Anticoagulatio n Management Service (BRITTANY) Inpatient Warfarin [...] candidate 2025, staffed with Renata Hassan PharmD, [facility] BRITTANY Consult Service is available daily [phone] via [employer]. [1] Past Medical History: Diagnosis Date COPD (chronic obstructive pulmonary disease) (HCC) GERD (gastroesophageal reflux disease) Hiatal hernia 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 Obesity FIFI (obstructive sleep apnea) Paroxysmal atrial fibrillation (HCC) Protein deficiency anemia Right bundle branch block Normal [facility] Progress Note - Attestation signed by Sarah Luna DO at 01/13/2025 2:42 PM (Updated) CARDIOTHORACIC SURGERY DOS: 01/13/25 POD # 3 VATS RUL wedge; MLND I personally performed a [id number] diagnostic evaluation on this patient I agree [...] of 20 minutes were spent between the [id number] encounter, physical exam, reviewing the medical history, coordinating care, counseling/educating the patient, ordering medications/test/proc edures, interpreting results and documenting in the patient's record on the day of the encounter. The patient was seen and examined independently and relevant data reviewed by myself. Savanah Luna DO [facility] Cardiothoracic Surgery Cardiothoracic Surgery Progress Note PATIENT [...] of day developed with Cardiothoracic Surgery Surgeon [facility] XR CHEST 1 VIEWon 01-13-2025 XR CHEST [...] Signed Date/Time: 01/13/2025 2:21 PM EDT [facility] XR CHEST 1 VIEW Patient Name: RICH [...] Electronically Signed Date/Time: 01/13/2025 8:18 AM EDT [facility] XR Chest Single viewon 01-13 [...] Electronically Signed Date/Time: 01/13/2025 2:21 PM EDT [facility] Patient Name: RICH JAMES : 1955 Exam Date/Time: 01/13/2025 12:41 Procedure: XR CHEST 1 VIEW Ordering Provider: MANUEL ANDREW Reason For Exam: follow up CT clamp trial CHEST - PORTABLE: CLINICAL INDICATION: follow up CT clamp trial TECHNIQUE: Portable AP COMPARISON: Radiographs earlier same day at 7:39 AM. [facility] Cheyenne Serna MD - 01/13/2025 Patient [...] Electronically Signed Date/Time: 01/13/2025 2:21 PM EDT [facility] Radiology Study observation (narrative) [facility] He alth 1. Right-sided chest tube with small apical pneumothorax. Report Dictated on Electronically Signed By: Amilcar Saha MD Electronically Signed Date/Time: 01/13/2025 8:18 AM EDT [facility] Patient Name: RICH JAMES : 1955 [...] remains clear. The heart size is normal. [facility] Amilcar Saha MD - 01/13/2025 Patient [...] Report Dictated on Electronically Signed By: Amilcar Saah MD Electronically Signed Date/Time: 01/13/2025 8:18 AM EDT [facility] Radiology Study observation (narrative) [facility] XR Chest Single viewOrdered By: Amilcar Saha on 01-13-2025 [facility] N[facility] Work Phone: 30on 01-12-2025 30 Problem: Pain - Adul t Goal: Verbalizes/displays adequate comfort level or baseline comfort level Outcome: Progressing Problem: Safety - Adult Goal: Free from fall injury Outcome: Progressing Problem: Discharge Planning Goal: Discharge to home or other facility with appropriate resources Outcome: Progressing Normal [facility] 30 Problem: Pain - Adul t Goal: [...] and maintained or improved Outcome: Progressing Normal [facility] 30 Problem: Pain - Adul t Goal: [...] injury: Instruct family/caregiver on patient safety Normal [facility] BASIC METABOLIC PANELon 12-20 Anion gap [Moles/Vol] 8 mmol/L Normal 3-13 [facility] Comment on above: Performed By: #### L AB15 ####Clinical Statistics Manager: APOLONIA PADILLA ([phone])[facility])[address] [place] [address] Calcium [Mass/Vol] 8.3 mg/dL Low 8.8-10.0 [facility] Comment on above: Performed By: #### L AB15 ####Clinical Statistics Manager: APOLONIA PADILLA ([id number])[facility])[address] [place] [address] [place] Chloride [Moles/Vol] 107 mmol/L Normal 98-107 [facility] Comment on above: Performed By: #### L AB15 ####Clinical Statistics Manager: APOLONIA PADILLA ([phone])[facility])[address] [place] [address] CO2 [Moles/Vol] 24 mmol/L Normal 23-31 [facility] Comment on above: Performed By: #### L AB15 ####Clinical Statistics Manager: APOLONIA PADILLA ([id number])[facility])[address] [place] [address] Creatinine [Mass/Vol] 0.94 mg/dL Normal 0.72-1.25 [facility] Comment on above: Performed By: #### L AB15 ####Clinical Statistics Manager: APOLONIA PADILLA ([id number])[facility])[address] [place] [address] GLOMERULAR FILTRATION RATE ML/MIN/1.73 SQ M.PREDICTED 88.3 mL/min/1.73m*2 Normal >60.0 [facility] Comment on above: Result Comment: Calc ulation based on the Chronic Kidney Disease Epidemiology Collaboration (CKD-EPI) equation refit without adjustment for race Performed By: #### L AB15 ####Clinical Statistics Manager: APOLONIA PADILLA ([id number])[facility])[address] [place] [address] Glucose [Mass/Vol] 93 mg/dL Normal 82-115 [facility] Comment on above: Performed By: #### L AB15 ####Clinical Statistics Manager: APOLONIA PADILLA ([phone])[facility])[address] [place] [address] [place] Potassium [Moles/Vol] 4.0 mmol/L Normal 3.5-5.1 [facility] Comment on above: Result Comment: [facility] potassium values may be up to 0.5 mmol/L lower than serum values. Performed By: #### L AB15 ####Clinical Statistics Manager: APOLONIA PADILLA ([phone])[facility])[address] [place] [address] Sodium [Moles/Vol] 139 mmol/L Normal 136-145 [facility] Comment on above: Performed By: #### L AB15 ####Clinical Statistics Manager: APOLONIA PADILLA ([id number])[facility])[address] [place] [address] Urea nitrogen [Mass/Vol] 22 mg/dL Normal 9-23 [facility] Comment on above: Performed By: #### L AB15 ####Clinical Statistics Manager: APOLONIA PADILLA ([phone])[facility])[address] [place] [address] Basic metabolic 1998 panelon 01-12-2025 Anion gap [Moles/Vol] 8 mmol/L 3 - 13 mmol/L [facility] Calcium [Mass/Vol] 8.3 mg/dL Low 8.8 - 10. 0 mg/dL [facility] Chloride [Moles/Vol] 107 mmol/L 98 - 10 7 mmol/L [facility] CO2 [Moles/Vol] 24 mmol/L 23 - 31 mmol/L [facility] Creatinine [Mass/Vol] 0.94 mg/dL 0.72 - 1.25 mg/dL [facility] GFR/1.73 sq M.predicted (S/P/Bld) [Vol rate/Area] 88.3 mL/min - PINF [facility] Comment on above: Calculation based on the Chronic Kidney Disease Epidemiology Collaboration (CKD-EPI) equation refit without adjustment for race Glucose [Mass/Vol] 93 mg/dL 82 - 115 mg/dL [facility] Interpretation and review of laboratory results Abnormal [facility] Potassium [Moles/Vol] 4 mmol/L 3.5 - 5.1 mmol/L [facility] Comment on above: Plasma potassium vinayak ues may be up to 0.5 mmol/L lower than serum values. Sodium [Moles/Vol] 139 mmol/L 136 - 145 mmol/L [facility] Urea nitrogen [Mass/Vol] 22 mg/dL 9 - 23 mg/dL [facility] CBC (HEMOGRAM)on 01-12-2025 Erythrocyte distribution width (RBC) [Ratio] 14.0 % Normal 11.5-15.0 [facility] Comment on above: Performed By: #### L [id number] ####Clinical Statistics Manager: APOLONIA PADILLA ([phone])[facility])[address] [place] [address] Hematocrit (Bld) [Volume fraction] 41.0 % Normal 40.0-52.0 [facility] Comment on above: Performed By: #### L [id number] ####Clinical Statistics Manager: APOLONIA PADILLA ([phone])[facility])[address] [place] [address] Hemoglobin (Bld) [Mass/Vol] 13.7 g/dL Normal 13.0-18.0 [facility] Comment on above: Performed By: #### L [id number] ####Clinical Statistics Manager: APOLONIA PADILLA ([phone])[address] MCH (RBC) [Entitic mass] 31.1 pg Normal 26.0-34.0 [facility] Comment on above: Performed By: #### L [id number] ####Clinical Statistics Manager: APOLONIA PADILLA ([phone])[facility])[address] [place] [address] MCHC 33.4 % Normal 30.5-36.0 [facility] Comment on above: Performed By: #### L [id number] ####Clinical Statistics Manager: APOLONIA PADILLA ([phone])[facility])[address] [place] [address] MCV (RBC) [Entitic vol] 93.0 fL Normal 77.0-99.0 [facility] Comment on above: Performed By: #### L [id number] ####Clinical Statistics Manager: APOLONIA PADILLA ([phone])[address] Platelet mean volume (Bld) [Entitic vol] 10.7 fL Normal 9.0-12.7 [facility] Comment on above: Performed By: #### L [id number] ####Clinical Statistics Manager: AOPLONIA [id number])[facility])[address] [place] [address] Platelets (Bld) [#/Vol] 164 10*3/uL Normal 140-440 [facility] Comment on above: Performed By: #### L [id number] ####Clinical Statistics Manager: APOLONIA PADILLA ([phone])[facility])[address] [place] [address] RBC (Bld) [#/Vol] 4.41 10*6/uL Normal 4.40-5.90 [facility] Comment on above: Performed By: #### L [id number] ####Clinical Statistics Manager: APOLONIA PADILLA ([id number])[facility])[address] [place] [address] WBC (Bld) [#/Vol] 8.8 10*3/uL Normal 3.6-10.7 [facility] Comment on above: Performed By: #### L [id number] ####Clinical Statistics Manager: APOLONIA PADILLA ([phone])[facility])[address] [place] [address] CBC panel Auto (Bld)on 01-12 Erythrocyte distribution width (RBC) [Ratio] 14 % 11.5 - 15.0 % [facility] Hematocrit (Bld) [Volume fraction] 41 % 40.0 - 52.0 % [facility] Hemoglobin (Bld) [Mass/Vol] 13.7 g/dL 13.0 - 18.0 g/dL [facility] Interpretation and review of laboratory results Normal [facility] MCH (RBC) [Entitic mass] 31.1 pg 26.0 - 34.0 pg [facility] MCHC (RBC) [Mass/Vol] 33.4 % 30.5 - 36.0 % [facility] MCV (RBC) [Entitic vol] 93 fL 77.0 - 99.0 fL [facility] Platelet mean volume (Bld) [Entitic vol] 10.7 fL 9.0 - 12.7 fL [facility] Platelets (Bld) [#/Vol] 164 10*3/uL 140 - 440 10*3/uL [facility] RBC (Bld) [#/Vol] 4.41 10*6/uL 4.40 - 5.9 0 10*6/uL [facility] WBC (Bld) [#/Vol] 8.8 10*3/uL 3.6 - 10.7 10*3/uL [facility] Laboratory - Coagulationon 0 01-12-2025 PT Coag (Bld) [Time] 10.5 s 9.0 - 12.0 s [facility] PROTHROMBIN TIMEon INR Coag (PPP) [Relative time] 1.0 {INR} Normal 0.9-1.1 [facility] Comment on above: Result Comment: Hernán mmended [...] Myocardial Infarction Performed By: #### Caryn [id number] ####Clinical Statistics Manager: APOLONIA PADILLA ([phone])[address] PT Coag (PPP) [Time] 10.5 s Normal 9.0-12.0 [facility] Comment on above: Performed By: #### Caryn AB320 ####Clinical Statistics Manager: APOLONIA PADILLA ([id number])[address] PT Coag (Bld) [Time]on 01-12 INR Coag (PPP) [Relative time] 1 {INR} 0.9 - 1.1 [facility] Comment on above: Recommended Anticoag ulant Therapy: [...] Interpretation and review of laboratory results Normal [facility] Progress Noteon 01-12-2025 Progress Note Patient recently brandan t smoking. Accepting of handout with contact information for help and support if needed. Normal [facility] Progress Note Nutrition rescreen completed. Chart reviewed. 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 DEBBIE Gonzalez Normal [facility] Progress Note PHYSICAL THERAPY [facility] Treatment Note Name/MRN: Rich James ([id number]) Date of : 1955 Age: 69 y.o. Room[facility]Bed: [facility] A Discharge Recommendation: Home with assist [...] Treatment Minutes: (gt-fa) Sofi Valdivia PTA Normal [facility] Progress Note OCCUPATIONAL THERAPY [facility] Name/MRN: Rich James ([id number]) Date: 01/12/2025 OT orders received and chart reviewed. Attempting OT eval, pt working with PT. Will continue to follow as schedule permits. Tawana Flores, JWR/L Normal [facility] Progress Note [facility] Anticoagulatio n Management Service (BRITTANY) Inpatient Warfarin Consult HPI: Rich James is a 69 y.o. male admitted on 01/10/2025 for Solitary pulmonary nodule [R91.1] Lung nodule [R91.1]. Medical History[1] Patient is on warfarin for DVT, Afib, Protein C Deficiency and has a goal INR 2.0 - 3.0. Warfarin is currently managed by [facility]. Pt's home dose of warfarin [...] PharmD BRITTANY Consult Service is available daily [phone] via Apptimize Secure Chat. [1] Past Medical History: Diagnosis Date COPD (chronic obstructive pulmonary disease) (HCC) GERD (gastroesophageal reflux disease) Hiatal hernia 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 Obesity FIFI (obstructive sleep apnea) Paroxysmal atrial fibrillation (HCC) Protein deficiency anemia Right bundle branch block Normal [facility] XR CHEST 1 VIEWon 01-12-2025 XR CHEST 1 VIEW [facility] 1955 [id number] Exam Date/Time: 01/12/2025 06:17 Procedure: XR CHEST [...] Electronically Signed Date/Time: 01/12/2025 7:19 AM EDT [facility] XR Chest Single viewon 01-12 [...] Electronically Signed Date/Time: 01/12/2025 7:19 AM EDT [facility] Patient Name: RICH JAMES : 1955 Exam Date/Time: 01/12/2025 06:17 Procedure: XR CHEST 1 VIEW Ordering Provider: LUNA RICHARD Reason For Exam: Chest tube placement CHEST - PORTABLE: CLINICAL INDICATION: Chest tube placement. TECHNIQUE: Portable AP COMPARISON: One day ago. [facility] Cheyenne Serna MD - 01/12/2025 Patient [...] Electronically Signed Date/Time: 01/12/2025 7:19 AM EDT [facility] Radiology Study observation (narrative) Naheed [...] learning needs (meds, wound care, etc) Normal [facility] [id number] 01-11-2025 [id number] Discussed Home Care Services available to patient [...] other needs arise prior to DC. [facility] BASIC METABOLIC PANELon - Anion gap [Moles/Vol] 7 mmol/L Normal 3-13 [facility] Comment on above: Performed By: #### L AB15 ####Clinical Statistics Manager: APOLONIA PADILLA ([id number])[facility] ([facility])[address] [place] [address] Calcium [Mass/Vol] 8.1 mg/dL Low 8.8-10.0 [facility] Comment on above: Performed By: #### L AB15 ####Clinical Statistics Manager: APOLONIA PADILLA ([id number])[facility] ([facility])[address] [place] [address] Chloride [Moles/Vol] 107 mmol/L Normal 98-107 [facility] Comment on above: Performed By: #### L AB15 ####Clinical Statistics Manager: APOLONIA PADILLA ([id number])[facility] ([facility])[address] [place] [address] CO2 [Moles/Vol] 22 mmol/L Low 23-31 [facility] Comment on above: Performed By: #### L AB15 ####Clinical Statistics Manager: APOLONIA PADILLA ([phone])[facility] ([facility])[address] [place] [address] Creatinine [Mass/Vol] 0.89 mg/dL Normal 0.72-1.25 [facility] Comment on above: Performed By: #### L AB15 ####Clinical Statistics Manager: APOLONIA PADILLA ([id number])[facility] ([facility])[address] [place] [address] GLOMERULAR FILTRATION RATE ML/MIN/1.73 SQ M.PREDICTED >90.0 Normal >60.0 [facility] Comment on above: Result Comment: Calc ulation based on the Chronic Kidney Disease Epidemiology Collaboration (CKD-EPI) equation refit without adjustment for race Performed By: #### L AB15 ####Clinical Statistics Manager: APOLONIA PADILLA ([id number])[facility] ([facility])[address] [place] [address] Glucose [Mass/Vol] 149 mg/dL High 82-115 [facility] Comment on above: Performed By: #### L AB15 ####Clinical Statistics Manager: APOLONIA [id number])[facility] ([facility])[address] [place] [address] Potassium [Moles/Vol] 4.3 mmol/L Normal 3.5-5.1 [facility] Comment on above: Result Comment: [facility] potassium values may be up to 0.5 mmol/L lower than serum values. Performed By: #### L AB15 ####Clinical Statistics Manager: APOLONIA PADILLA ([id number])[facility] [place] [address] Sodium [Moles/Vol] 136 mmol/L Normal 136-145 [facility] Comment on above: Performed By: #### L AB15 ####Clinical Statistics Manager: APOLONIA PADILLA ([id number])[facility] [place] [address] Urea nitrogen [Mass/Vol] 16 mg/dL Normal 9-23 [facility] Comment on above: Performed By: #### L AB15 ####Clinical Statistics Manager: APOLONIA PADILLA ([id number])[facility] [place] [address] Basic metabolic 1998 panelon 01-11-2025 Anion gap [Moles/Vol] 7 mmol/L 3 - 13 mmol/L [facility] Calcium [Mass/Vol] 8.1 mg/dL Low 8.8 - 10. 0 mg/dL [facility] Chloride [Moles/Vol] 107 mmol/L 98 - 10 7 mmol/L [facility] CO2 [Moles/Vol] 22 mmol/L Low 23 - 31 mmol/L [facility] Creatinine [Mass/Vol] 0.89 mg/dL 0.72 - 1.25 mg/dL [facility] GFR/1.73 sq M.predicted (S/P/Bld) [Vol rate/Area] - PINF [facility] Comment on above: Calculation based on the Chronic Kidney Disease Epidemiology Collaboration (CKD-EPI) equation refit without adjustment for race Glucose [Mass/Vol] 149 mg/dL High 82 - 115 mg/dL [facility] Interpretation and review of laboratory results Abnormal [facility] Potassium [Moles/Vol] 4.3 mmol/L 3.5 - 5.1 mmol/L [facility] Comment on above: Plasma potassium vinayak ues may be up to 0.5 mmol/L lower than serum values. Sodium [Moles/Vol] 136 mmol/L 136 - 145 mmol/L [facility] Urea nitrogen [Mass/Vol] 16 mg/dL 9 - 23 mg/dL [facility] CBC (HEMOGRAM)on 01-11-2025 Erythrocyte distribution width (RBC) [Ratio] 13.5 % Normal 11.5-15.0 [facility] Comment on above: Performed By: #### L [id number] ####Clinical Statistics Manager: APOLONIA PADILLA ([id number])[address] Hematocrit (Bld) [Volume fraction] 39.2 % Low 40.0-52.0 [facility] Comment on above: Performed By: #### L AB294 ####Clinical Statistics Manager: APOLONIA PADILLA ([phone])[facility])[address] [place] [address] Hemoglobin (Bld) [Mass/Vol] 13.2 g/dL Normal 13.0-18.0 [facility] Comment on above: Performed By: #### L AB294 ####Clinical Statistics Manager: APOLONIA PADILLA ([phone])[facility])[address] [place] [address] MCH (RBC) [Entitic mass] 30.9 pg Normal 26.0-34.0 [facility] Comment on above: Performed By: #### L AB294 ####Clinical Statistics Manager: APOLONIA PADILLA ([id number])[facility])[address] [place] [address] MCHC 33.7 % Normal 30.5-36.0 [facility] Comment on above: Performed By: #### L AB294 ####Clinical Statistics Manager: APOLONIA PADILLA ([id number])[facility])[address] [place] [address] MCV (RBC) [Entitic vol] 91.8 fL Normal 77.0-99.0 [facility] Comment on above: Performed By: #### L AB294 ####Clinical Statistics Manager: APOLONIA PADILLA ([id number])[facility])[address] [place] [address] Platelet mean volume (Bld) [Entitic vol] 9.7 fL Normal 9.0-12.7 [facility] Comment on above: Performed By: #### L AB294 ####Clinical Statistics Manager: APOLONIA PADILLA ([id number])[facility])[address] [place] [address] Platelets (Bld) [#/Vol] 147 10*3/uL Normal 140-440 [facility] Comment on above: Performed By: #### L AB294 ####Clinical Statistics Manager: APOLONIA PADILLA ([phone])[facility])[address] [place] [address] RBC (Bld) [#/Vol] 4.27 10*6/uL Low 4.40-5.90 [facility] Comment on above: Performed By: #### L AB294 ####Clinical Statistics Manager: APOLONIA PADILLA ([phone])[facility])[address] [place] [address] WBC (Bld) [#/Vol] 9.6 10*3/uL Normal 3.6-10.7 [facility] Comment on above: Performed By: #### L [id number] ####Clinical Statistics Manager: APOLONIA PADILLA ([id number])[facility])[address] [place] [address] CBC panel Auto (Bld)on 01-11 Erythrocyte distribution width (RBC) [Ratio] 13.5 % 11.5 - 15.0 % [facility] Hematocrit (Bld) [Volume fraction] 39.2 % Low 40.0 - 52.0 % [facility] Hemoglobin (Bld) [Mass/Vol] 13.2 g/dL 13.0 - 18.0 g/dL [facility] Interpretation and review of laboratory results Abnormal [facility] MCH (RBC) [Entitic mass] 30.9 pg 26.0 - 34.0 pg [facility] MCHC (RBC) [Mass/Vol] 33.7 % 30.5 - 36.0 % [facility] MCV (RBC) [Entitic vol] 91.8 fL 77.0 - 99.0 fL [facility] Platelet mean volume (Bld) [Entitic vol] 9.7 fL 9.0 - 12.7 fL [facility] Platelets (Bld) [#/Vol] 147 10*3/uL 140 - 440 10*3/uL [facility] RBC (Bld) [#/Vol] 4.27 10*6/uL Low 4.40 - 5.9 0 10*6/uL [facility] WBC (Bld) [#/Vol] 9.6 10*3/uL 3.6 - 10.7 10*3/uL [facility] No Panel InformationOrdered By: Colton Cooper on 01-11-2025 Case Report Surgical Pathology Case: [id number] Authorizing Provider: Sarah Luna DO Collected: 01/10/2025 0856 Ordering Location: [facility] MA[facility] OR Received: 01/10/2025 1200 Pathologist: Colton Cooper MD Specimens: A) - Lung, Right Upper Lobe, RIGHT UPPER LOBE WEDGE B) - Lymph Node, LEVEL 9R LYMPH NODE C) - Lymph Node, LEVEL 7 LYMPH NODE D) - Lymph Node, LEVEL 4R LYMPH NODE [facility] [employer] Work Phone: Clinical Information b5ognHTaHWJbiLEsCJT wM JkavcMbJOEytSThT5Lhki swBRjbYM5rZY3zgOkvpFD lhQMfKXXsYlGwz9tvc351 cAHdq7zxEYCZYThkDWXBG Va2lPahP65mf4I4MdfnF6 xyZWQwXGdyZWVuMFxibHV fELw7ROOfkXNslvCrSsFy NWNbvNValVL0ILDcEZ2xb jbuWKxmFRhxFESusfC8YP NvjOIzP4UfUXJoVV5yjlg sZGT2BCcjUXQwZLF9PiJc HPQmt5Rketz6IkGdgQPcQ FxwbGFpblxmczIwXGNmMS LTr7tgvRKpcJDohMgks43 niokbfm2owZbsBT0eBcoq SzCeB6cCTU3fUD3BNL7zA 2YwICBccGFyfQ== [facility] Work Phone: Gross Description q4waiVAgKIHttFOhRFSc M QcbsrJdYKFjeJZwO5Gebe quYSgwGA6dZZ6ltKxmkNW hdIRgRYJrXkOfi6cws361 tFZfg5xnMTFGTTlzIINFO Ze2vLnkA41hk8D2XusuR3 0ibSWuINA1AXEnAMNgjUI wKWBcXPJ1YYWvoJMnC3li QYGhPK7txnzvKOcdBAejN YHxyZE8AGOaxRNbY8RnCW QlNSluEJTypwo3UlDqCd1 vdGVyeTcyMFxwYXJkXHBs JLoxKRGdVmZbIB0kqKTwR ZPzV6QburUbGGTrDEQpKC YjubXrmz02TV0fd5WncIo cgcVrlEVeab5clUPpdAGu ZWxlZCAicmlnaHQgdXBwZ ZPcpI3rUGJ3EZKrQBXslV HcNOY4VeatwJV5JMstGH9 4FQGvDWB0foXlZC7gMMVr pYJjRqT6SYHcTF8cKGFyM RIxyIC9kgNssQAnuI9rHR WqRjkzT1huTVDIqJRbl9D hcGxlIGxpbmUgaXMgcmVt i9ZdYOJqqbWsgVtjEDEsZ SXywTfrhyteoOGuOQ4skI ltYSBpcyBpbmtlZCBibHV lLiAgVGhlcmUgaXMgYSB3 jJh2DV5pTMHmqf8kjHybP HKnTEEfjMCiSH57GVnhUM Y9UNLxZ80sYBQCXUDhhUO xd9OrdNZ8gNSzBSMurpKh m63atIGlo0QmrJg7nNBcS FVhwjUdcx95DS3zp7AqhP jftgTsiROjsg9axBHiPDX VxKXinvDdRMrzPYBwWX4z FPZbVMYodYRuuO9maiEgr tDmAGF5cE2aCRJfacM5XB NhfL7dCFKyCIIbAZweuUa gZGlsYXRlZCBhaXJzcGFj PRGnKY8vSBBmS2PqUSClX gRhl8uhXlCsQW3bDTRhgS Mzk43gtWC4HXmkKQKjBbp wPQLjaNEpfpColfIhd5Tg n6Fdhv5qHURhPXSvDUihu ea9iCMoDmL9kXIen3JrR2 Alh8x1rPG9oANebsDhQDv vXBYtTI8oGJBcGFHgQEJm SDilKJO2Bt2yoDYlRHBbg iAxFFWiZFAgXCT2XVXiz3 k3yHUsIEIlPNWbqWMkyw9 7YN9ur4CyrYqgpzH5vNXr zOOaPdShyqbvd3NdeEc5p MMaQYfgQPEet7PomRSdHQ ExLiBccGFyXHBhciBCLlx 3JUNrVyXmOYb1SDLccQ4l Ta9inQWanH3muMTsFPqdR DMmjYJ4FSkzHVVhqJpagC hpvz3kBIHqwYBvNFJuAzk kwVXtMcUutZSeIgKfB12e gtLtMGQofwUat5X6ANHle 3X8HERoqcWlvQRvgGZ4qR G3RPccQUB9Qc8daLZzOMM lcnQloaQpS3Gkq3B9lEIr IFxwYXJccGFyIEMuXHRhY iBSZWNlaXZlZCBpbiBmb3 JtYWxpbiBsYWJlbGVkICJ nOUBtqGQ6ZEa4lSGuOQ7b PJRaSDvaQXNqFg3cJJutU B09ILxuHY79WZIiNGIbEK 2svc62kyJiJ2ogAGoodMM wf7Gms88wxPH1vMMagALm P57lj4kdvLSsiFS3hMTpS HVmBNqbAH16NGKzeAmptE cfqv8wYN4iMDKlRAKtKLH eGYFghOweO1ClVTDwJCQj UPZ0uY7aDFJtVNQAhROqh 9YhQ6pdKR5nxJJsz7GneY b6jWBeLPLdtOkvYLb4ZLb bEXD7rgWdKJAeFMW8SJEk IFxwYXJccGFyIEQuXHRhY iBSZWNlaXZlZCBpbiBmb3 JtYWxpbiBsYWJlbGVkICJ iSBTnrLD0DuAoxC6kvSDm p9VvSrUhelRrANNbTYE7H OGjBbH3QUEjDdSjbGEiC2 byMTmbkXAnr3JsiXHmyQ0 9OCXvzsuhBzudcx7zQOG3 oJ7nxZOoPQBfwofmh40xm VT4iJSngHBjBDDNoDVxe2 GpN0bwFE4eyBEuo7HbvVc 7vISnAOeuYA6hJOKxWTBb QHG1SM5tAOQfqs5= [employer] Work Phone: Pathology report final diagnosis Narrative g3zmxVWhSIDzdFNgERGsE LnwwxRxYUJaxYPvI1Buye ulDYqiDX7yPG3akVrnkWU xbJYaZCWmOcZbz6cwp015 uMCgs4fbMHQVLCnbTWELS Ve3oPpzH31uf4Z8ImikM0 1dtKWrBCF3NBFpMXYvhRT vLECzJLN6TLUtqORcG6ph ZVEsKF5xqmdnOVjgZMwhM NPkyBM8DPPpbAJbM5NcAX QtEEnvJBVpabc2NgKvZn3 vdGVyeTcyMFxwYXJkXHBs YWluXGZzMjBccGFyIEEuI JFPZN1RTKHCGGlLMIRJEC AXQoDKK7BNGSDSVQACCMG NBLCIN6NSL672CFKimoar eyNzz5kyPJNBBVWxZ4UxQ 8JRYQ6MHmzSAnPFVqCNSL 9OSUFccGFyXGVuZGFzaCA uYtJCSOWGMzYgPw5DJJ1M RTxKEcFOK0muEC3GPSfGQ Y9KEC4ICEVrkWTxIBNxyb QLZdFnUKrXMPqwHo3GVPo tELQIYVujZEI7HJYhjukj cpMhh7maVN4FQ6EIMMTDU JVjlyraYGUpCp1sTQoUQU LMJY3GAJRsRNsMHpRICHy 9JKKmkpuacyLzy5exHR3M C3KVRFWVBDHnipekVOHsG Q6qGEyJOVBNXY6ZTMKpEU xFVkVMIDRSOlxwYXJcZW5 kYXNoICBORUdBVElWRVxw PLUfyJQrXEVdvACtM2NsA VB5PMModnZ2aJZ4QGOwBa wbETZcMVxmkAMyP9WfPDp aprDtm09baPWmCVqzfUjh wFqjWRMoa2HnHUrkjFDmk TWxcUY0rQ6kDnkdEGBmoL FyZFxwYXJ9 [facility] [employer] Work Phone: [facility] [employer] Phone: Progress Noteon 01-11-[address] [facility] Anticoagulatio n Management Service (BRITTANY) Inpatient Warfarin [...] Glory Mckeon Consult Service is available daily [phone] via Apptimize Secure [employer] [place] [employer]. [1] Past Medical History: Diagnosis Date COPD (chronic obstructive pulmonary disease) (HCC) GERD (gastroesophageal reflux disease) Hiatal hernia 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 Obesity FIFI (obstructive sleep apnea) Paroxysmal atrial fibrillation (HCC) Protein deficiency anemia Right bundle branch block Normal [facility] Progress Note - Attestation signed by Sarah Luna DO at 01/11/2025 3:15 PM CARDIOTHORACIC SURGERY DOS: 01/11/25 POD # 1 Robotic right upper lobe wedge I personally performed a ghsb-rf-pitp diagnostic evaluation on this patient I agree [...] of 20 minutes were spent between the ulfx-qv-fped encounter, physical exam, reviewing the medical history, coordinating care, counseling/educating the patient, ordering medications/test/proc edures, interpreting results and documenting in the patient's record on the day of the encounter. The patient was seen and examined independently and relevant data reviewed by myself. Savanah Luna, DO [facility] Cardiothoracic Surgery Cardiothoracic Surgery/[facility] Progress Note PATIENT NAME: Rich James DATE: [...] of 28 minutes were spent between the hsro-oq-jpuq encounter, physical exam, reviewing the medical history, coordinating the patient's care, counseling/educating the patient, ordering medications/test/proc edures, interpreting results and documenting clinical information in the patients electronic health record on the day of the encounter. The patient was seen and examined Normal [facility] XR CHEST 1 VIEWon 01-11-2025 XR CHEST [...] was discussed with physician/provider SARAH LUNA by [employer] chat on 01/11/2025 at 6:48 AM EDT. Report Dictated on Electronically Signed By: Vlad Wilkins MD Electronically Signed Date/Time: 01/11/2025 6:48 AM EDT Normal [facility] XR Chest Single viewon 01-11 Sliver of low attenuation is noted under the right hemidiaphragm concerning for free air, likely postsurgical. The critical result of small sliver of free air, likely postsurgical was discussed with physician/provider SARAH LUNA by [employer] chat on 01/11/2025 at 6:48 AM EDT. Report Dictated on Electronically Signed By: Vlad Wilkins MD Electronically Signed Date/Time: 01/11/2025 6:48 AM EDT [facility] Patient Name: RICH JAMES : 1955 [...] the right hemidiaphragm concerning for free air. [facility] Vlad Wilkins MD - 01/11/2025 [facility] Name[facility] 1955 [id number] Exam Date/Time: 01/11/2025 06:15 Procedure: XR CHEST [...] was discussed with physician/provider SARAH LUNA by [employer] secure chat on 01/11/2025 at 6:48 AM EDT. Report Dictated on Electronically Signed By: Vlad Wilkins MD Electronically Signed Date/Time: 01/11/2025 6:48 AM EDT [facility] Radiology Study observation (narrative) Naheed Amador alth XR Chest Single viewOrdered By: Vlad Wilkins on 01-11-2025 [facility] Work Phone: Laboratory - Coagulationon 0 01-10-2025 PT Coag (Bld) [Time] 10.9 s 9.0 - 12.0 s [facility] Nursing Noteon 01-10-[address] Ding david t is not to wear his home cpap due to risk of rupture of the staple line and risk of pneumothorax. Re-entered patient's room and explained this to patient, patient understands and states he will not put on his home cpap, Placed patient back on 2L oxygen for the night. Normal [facility] Nursing Note Notified Dr. Ding patient is inquiring on whether his coumadin and bupropion will be ordered. Dr. Ding stated it is too soon after surgery to begin coumadin, patient educated. Bupropion medication will be non-formulary, patient understands he is to have his bring it from home. Normal [facility] Nursing Note Report called to H6, family updated [facility] Op Noteon 01-10-2025 Op Note CARDIOTHORACIC SURGERY--OPERATIVE NOTE Date: 01/10/25 Preoperative Diagnosis: Right upper lobe lung nodule Postoperative Diagnosis: Right upper lobe lung nodule Procedure: Robotic right thoracoscopy Right upper lobe wedge resection Mediastinal lymph node dissection Surgeon: Savanah Luna DO Secretary To The Vice President: Mamie Ballesteros Anesthesia: General--Dr. [place] Complications: None [...] and draped in usual sterile fashion. The certified anesthesiologist assistant was present for the entire procedure [...] was undocked and removed. A single 28 Iranian chest tube was placed through the anterior [...] of outputs and hemodynamics. Savanah Luna DO [facility] Cardiothoracic Surgery Normal [facility] PROTHROMBIN TIMEon INR Coag (PPP) [Relative time] 1.0 {INR} Normal 0.9-1.1 [facility] Comment on above: Order Comment: If pa [...] Myocardial Infarction Performed By: #### L [id number] ####Clinical Statistics Manager: APOLONIA PADILLA ([phone] PT Coag (PPP) [Time] 10.9 s Normal 9.0-12.0 [facility] Comment on above: Order Comment: If pa tient on coumadin within 4 days prior. Performed By: #### L [id number] ####Clinical Statistics Manager: APOLONIA PADILLA ([phone] PT Coag (Bld) [Time]on 01-10 INR Coag (PPP) [Relative time] 1 {INR} 0.9 - 1.1 [facility] Comment on above: Recommended Anticoag ulant Therapy: [...] Interpretation and review of laboratory results [facility] XR CHEST 1 VIEWon 01-10-2025 XR CHEST 1 VIEW Patient Name: RICH JAMES : 1955 [id number]#: [id number] Exam Date/Time: 01/10/2025 13:51 Procedure: XR CHEST [...] Electronically Signed Date/Time: 01/10/2025 2:13 PM EDT [facility] XR Chest Single viewon 01-10 FINDINGS/IMPRESSION: [...] Electronically Signed Date/Time: 01/10/2025 2:13 PM EDT [facility] Patient Name: RICH JAMES : 1955 Exam Date/Time: 01/10/2025 13:51 Procedure: XR CHEST 1 VIEW Ordering Provider: LUNA RICHARD Reason For Exam: Chest tube placement; chest tube placement CHEST - PORTABLE: CLINICAL INDICATION: Chest tube placement; chest tube placement TECHNIQUE: Portable AP COMPARISON: None. [facility] Cheyenne Serna MD - 01/10/2025 Patient [...] Electronically Signed Date/Time: 01/10/2025 2:13 PM EDT [facility] Radiology Study observation (narrative) [facility] XR Chest Single viewOrdered By: Cheyenne Serna on 01-10-2025 [facility] Work Phone: Prothrombin Time w/INRon INR Normal [facility] Comment on above: Order Comment: Comme nts: STANDING ORDER: Fingerstick is OK Result Comment: FING ERSTICK Performed By: #### L 9200.0000 #### [facility] [address] [place], [address] PROTIME Normal 11.7-14.9 [facility] Comment on above: Order Comment: Comme nts: STANDING ORDER: Fingerstick is OK Result Comment: FING ERSTICK Performed By: #### L 9200.0000 #### [facility] [address] [place], [address] Protime w/INR Fingerstickon 01-06-2025 INR Coag (PPP) [Relative time] 1.4 {INR} Normal [facility] Comment on above: Result Comment: Crit ical Value > 4.0 Performed By: #### L 9200.0000 #### [facility] [address] [place], [address] Protime Coagsen 16.5 SEC High 11.7-14.9 [facility] Comment on above: Performed By: #### L 9200.0000 #### [facility] [address] [place], [address] Protime w/INR Fingerstickon 12-30-2024 INR Coag (PPP) [Relative time] 2.6 {INR} Normal [facility] Comment on above: Result Comment: Crit ical Value > 4.0 Performed By: #### L 9200.0000 #### [facility] [address] [place], [address] Protime Coagsen 27.7 SEC High 11.7-14.9 [facility] Comment on above: Performed By: #### L 9200.0000 #### [facility] [address] [place], [address] [id number] 12-29-2024 [id number] Medication List Accurate as of December 29, 2024 2:29 PM. Always use your most recent med list. BrezFavorite Wordsi Aerosphere 160-9-4.8 MCG/ACT aerosol Generic drug: Sjtausp-Kdivsmlhkor-S ormoterol Medication Adjustments for Surgery: Take morning [...] patient: LAST DOSE PRE OP 01/04/25- FOLLOW GEOMORPHOLOGY TEACHER INSTRUCTIONS FOR ANY BRIDGING The medication bridging [...] your scheduled surgery time. Please bring your [facility] Surgical folder and medication list with you [...] 11 am on the day of discharge. 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 TAKE [...] surgery on the right hand side. Normal [facility] BASIC METABOLIC PANELon 06- Anion gap [Moles/Vol] 8 mmol/L Normal 3-13 [facility] Comment on above: Performed By: #### L AB15 ####Clinical Statistics Manager: APOLONIA PADILLA ([phone])[facility] [place] [address] Calcium [Mass/Vol] 9.1 mg/dL Normal 8.8-10.0 [facility] Comment on above: Performed By: #### L AB15 ####Clinical Statistics Manager: APOLONIA PADILLA ([phone])[facility] [place] [address] [place] Chloride [Moles/Vol] 106 mmol/L Normal 98-107 [facility] Comment on above: Performed By: #### L AB15 ####Clinical Statistics Manager: APOLONIA PADILLA ([phone])[facility] ([facility])[address] [place] [address] CO2 [Moles/Vol] 26 mmol/L Normal 23-31 [facility] Comment on above: Performed By: #### L AB15 ####Clinical Statistics Manager: APOLONIA PADILLA ([id number])[facility] [place] [address] Creatinine [Mass/Vol] 1.14 mg/dL Normal 0.72-1.25 [facility] Comment on above: Performed By: #### L AB15 ####Clinical Statistics Manager: APOLONIA PADILLA ([phone])[facility] ([facility])[address] [place] [address] [place] GLOMERULAR FILTRATION RATE ML/MIN/1.73 SQ M.PREDICTED 70.1 mL/min/1.73m*2 Normal >60.0 [facility] Comment on above: Result Comment: Calc ulation based on the Chronic Kidney Disease Epidemiology Collaboration (CKD-EPI) equation refit without adjustment for race Performed By: #### L AB15 ####Clinical Statistics Manager: APOLONIA PADILLA ([id number])[facility] [place] [address] [place] Glucose [Mass/Vol] 78 mg/dL Low 82-115 [facility] Comment on above: Performed By: #### L AB15 ####Clinical Statistics Manager: APOLONIA PADILLA ([phone])[facility])[address] [place] [address] Potassium [Moles/Vol] 4.2 mmol/L Normal 3.5-5.1 [facility] Comment on above: Result Comment: [facility] potassium values may be up to 0.5 mmol/L lower than serum values. Performed By: #### L AB15 ####Clinical Statistics Manager: APOLONIA PADILLA ([phone])[facility])[address] [place] [address] Sodium [Moles/Vol] 140 mmol/L Normal 136-145 [facility] Comment on above: Performed By: #### L AB15 ####Clinical Statistics Manager: APOLONIA PADILLA ([phone])[facility])[address] [place] [address] Urea nitrogen [Mass/Vol] 17 mg/dL Normal 9-23 [facility] Comment on above: Performed By: #### L AB15 ####Clinical Statistics Manager: APOLONIA PADILLA ([phone])[facility])[address] [place] [address] BLOOD TYPE AND SCREEN GELon 12-29-2024 ABO GROUPING A Normal [facility] Comment on above: Performed By: #### L AB276 ####Clinical Statistics Manager: APOLONIA PADILLA ([phone])[facility] ([facility])[address] [place] [address] RH TYPE IN BLOOD Positive Normal [facility] Comment on above: Performed By: #### L AB276 ####Clinical Statistics Manager: APOLONIA PADILLA ([phone])[facility] ([facility])[address] [place] [address] CBC (HEMOGRAM)on 12-29-2024 Erythrocyte distribution width (RBC) [Ratio] 13.6 % Normal 11.5-15.0 [facility] Comment on above: Performed By: #### L AB294 ####Clinical Statistics Manager: APOLONIA PADILLA ([id number])[facility] ([address] Hematocrit (Bld) [Volume fraction] 45.9 % Normal 40.0-52.0 [facility] Comment on above: Performed By: #### L AB294 ####Clinical Statistics Manager: APOLONIA PADILLA ([phone])[facility] ([facility])[address] [place] [address] Hemoglobin (Bld) [Mass/Vol] 15.3 g/dL Normal 13.0-18.0 [facility] Comment on above: Performed By: #### L AB294 ####Clinical Statistics Manager: APOLONIA PADILLA ([phone])[facility] ([facility])[address] [place] [address] MCH (RBC) [Entitic mass] 31.2 pg Normal 26.0-34.0 [facility] Comment on above: Performed By: #### L AB294 ####Clinical Statistics Manager: APOLONIA PADILLA ([phone])[facility] ([facility])[address] [place] [address] MCHC 33.3 % Normal 30.5-36.0 [facility] Comment on above: Performed By: #### L AB294 ####Clinical Statistics Manager: APOLONIA PADILLA ([id number])[facility] ([facility])[address] [place] [address] MCV (RBC) [Entitic vol] 93.5 fL Normal 77.0-99.0 [facility] Comment on above: Performed By: #### L AB294 ####Clinical Statistics Manager: APOLONIA PADILLA ([phone])[facility] ([facility])[address] [place] [address] Platelet mean volume (Bld) [Entitic vol] 10.1 fL Normal 9.0-12.7 [facility] Comment on above: Performed By: #### L AB294 ####Clinical Statistics Manager: APOLONIA PADILLA ([phone])[facility] ([facility])[address] [place] [address] Platelets (Bld) [#/Vol] 202 10*3/uL Normal 140-440 [facility] Comment on above: Performed By: #### L AB294 ####Clinical Statistics Manager: APOLONIA PADILLA ([phone])[facility])[address] [place] [address] RBC (Bld) [#/Vol] 4.91 10*6/uL Normal 4.40-5.90 [facility] Comment on above: Performed By: #### L AB294 ####Clinical Statistics Manager: APOLONIA PADILLA ([phone])[facility])[address] [place] [address] WBC (Bld) [#/Vol] 6.1 10*3/uL Normal 3.6-10.7 [facility] Comment on above: Performed By: #### L AB294 ####Clinical Statistics Manager: APOLONIA PADILLA ([id number])[address] ECG 12-LEADon 12-29-2024 ECG 12-LEAD IMPRESSION: Sinus bradycardia RBBB and LAFB No previous ECG available for comparison Electronically Signed On 12-29-2024 19:29:41 EDT by Bjorn Dixon [facility] Progress Noteon 12-29-2024 Progress Note [facility] Rich James : 1955 Primary Care Physician: Marion Feng The patient and/or family/surrogate voluntarily agreed to participate in ACP services.has paperwork Patient?s cognitive capacity: a/o x3 Code Status: [x] [FULL CODE - Continue all advanced life support: CPR,intubation,invasi ve procedures] [_] [DNR-CCA - DO NOT do CPR, intubation] [_] [DNR-PIPE [address]TER STRE[address] SERVICE - Comfort care only] [_] DNR form [...] care, with patient and/or family/surrogate. Larissa Herndon, BREASTER - CAMP ADVISOR Acute care solutions 12/29/2024, 2:57 PM Normal [facility] 36on 12-24-2024 36 Surg proc orders placed. Dong Adam, BREASTER - CAMP ADVISOR 12/24/24 [facility] Office Visiton 12-23-2024 Follow-up visit [id number] Rich James 1955 M Date Provider Department Center 12/23/2024 [facility] None Family History Problem Relation Age of Onset Diabetes Father Family Status - Relation Status Age at Father Level of Service:30399 OK OFFICE/OP CONSLTJ NEW/EST PT MOD MDM 40 MINUTES (57) Reason for Visit and Comments: New Patient [542] Normal 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 Normal [facility] Pulmonary Visit Reporton Pulmonary Visit Report [facility] Pulmonary Medicine of [address] [place] [address] OFFICE VISIT Date of Service: 12/10/24 MR#: [id number] Acct: [id number] Name: RICH JAMES I Rep #: [id number] : 1955 Provider: ANA Motta Age/Sex: 68/M Location: [facility].PMW Status: Signed Assessment and Plan Assessment and Plan (1) Right upper lobe pulmonary nodule: Status: Acute Comment: 1.6X1.5X1.3X2.3cm Plan: PET positive right apical nodule. I spoke with Dr. Coppola at [facility]. He agrees that the patient is appropriate [...] Additional Comments: This note was generated with Camera360 dictation software. It may contain incorrect words, [...] mg PO (more content not included)... Normal [facility] Positron emission tomography scan reportOrdered By: Elizabeth Cintron on 12-08-2024 PT Unspecified body region [facility] Services [address] [place] [address] PET/CT Tumor Base -Thigh Init MR#: [id number] Acct: [id number] Name: RICH JMAES I Rep #: [id number] : 1955 M 68 From: Juliana Cintron MD PCP: Dr. Marion Feng MD Status: REG CLI Study:PET/CT Tumor Base -Thigh Init Date of E xam: 12/07/24 Exam# [id number] Ordering Dr: Giovani Motta NP MANAGER CASH-C EXAM: PET/CT Study CLINICAL HISTORY: 68 y/o [...] PET will be reported separately. Reading Location: [id number] CC: ANA Motta; Dr. Marion Feng MD ~ Baker Bread: Signed [facility] PET/CT Tumor Base -Thigh Ini ton 12-07-2024 PET/CT Tumor Base -Thigh Init [facility] Services [address] [place] [address] PET/CT Tumor Base -Thigh Init MR#: [id number] Acct: [id number] Name: RICH JAMES I Rep #: [id number] : 1955 M 68 From: Elizabeth Lundy nd, MD PCP: Dr. Marion Feng MD Status: REG CLI Study: PET/CT Tumor Base -Thigh Init Date of Exam: Exam# [id number] Ordering Dr: Kylie Motta NP MANAGER CASH-C EXAM: PET/CT Study CLINICAL HISTORY: 68 y/o [...] PET will be reported separately. Reading Location: [id number] CC: ANA Motta; Dr. Marion Feng MD Baker Bread: Signed Normal [facility] Pulmonary Visit Reporton Pulmonary Visit Report [facility] Pulmonary Medicine of [address] [place] [address] OFFICE VISIT Date of Service: 12/02/24 MR#: [id number] Acct: [id number] Name: ERIKARICH Whit Rep #: [id number] : 1955 Provider: ANA Motta Age/Sex: 68/M Location: [facility].PMW Status: Signed Assessment and Plan Assessment and [...] F17.210 - Nicotine dependence, cigarettes, uncomplicated Refilled dvvtwpdylc-pbohsali-p ormoterol 160-9-4.8 mcg/actuation (Breztri Aerosphere) 2 inhalations inhalation BID 3 ea 3RF Plan Details Additional Comments: This note was generated with Soliant Energyation software. It may contain incorrect words, spelling, [...] L Pulse (more content not included)... Normal [facility] International normalized rat io (INR) measurement by fingerstickOrdered By: Jose Hylton on 11-17-2024 INR Coag (BldC) [Relative time] 2.5 [facility] Comment on above: Critical Value > 4.[address] Lung Screeningon 11-17-[address] Lung Screening [facility] Imaging Services [address] [place], [place] [address] Low Dose CT Lung Screening MR#: [id number] Acct: [id number] Name: RICH JAMES I Rep #: [id number] : 1955 M 68 From: Bjorn Castro MD PCP: Dr. Marion Feng MD Status: [facility] Study: Low Dose CT Lung Screening Date of Exam: 11/17 Exam# [id number] Ordering Dr: Kylie Motta MANAGER CASH MANAGER CASH-C PROCEDURE: LOW DOSE CT LUNG SCREENING (CTLUNGSCREEN), [...] 4. Additional description as above. Recommendations per [employer]. Lung CT Screening Reporting and Data System (Lung-RADS) v. 2021 Reading Location: [id number] CC: ANA Motta; Dr. Marion Feng MD Baker Bread: Signed Normal [facility] Protime w/INR Fingerstickon 11-17-2024 INR Coag (PPP) [Relative time] 2.5 {INR} Normal [facility] Comment on above: Result Comment: Crit ical Value > 4.0 Performed By: #### L 9200.0000 #### [facility] [address] [place], [place], [address] Protime Coagsen 26.9 SEC High 11.7-14.9 [facility] Comment on above: Performed By: #### L 9200.0000 #### [facility] [address] [place], [place], [address] Whole blood prothrombin time Ordered By: Jose Hylton on 11-17-2024 PT Coag (Bld) [Time] 26.9 s High 11.7-14.9 [facility] INR Coag (BldC) [Relative ti me]Ordered By: Jose Hylton on 10-19-2024 INR Coag (Bld) [Relative time] 2.2 {INR} [facility] Comment on above: Critical Value > 4.0 PT Coag (Bld) [Time]Ordered By: Jose Hylton on 10-19-2024 Bedside Prothrombin Time 24.3 SEC High 11.7-14.9 [facility] Protime w/INR Fingerstickon 10-19-2024 INR Coag (PPP) [Relative time] 2.2 {INR} Normal [facility] Comment on above: Result Comment: Crit ical Value > 4.0 Performed By: #### L 9200.0000 #### [facility] [address] [place], [address] Protime Coagsen 24.3 SEC High 11.7-14.9 [facility] Comment on above: Performed By: #### L 9200.0000 #### [facility] [address] [place], [address] INR Coag (BldC) [Relative ti me]Ordered By: Jose Hylton on 09-02-2024 INR Coag (Bld) [Relative time] 2.9 {INR} [facility] Comment on above: Critical Value > 4.0 International normalized rat io (INR) measurement by fingerstickOrdered By: Jose Hylton on 09-02-2024 INR Coag (BldC) [Relative time] 2.9 [facility] Comment on above: Critical Value > 4.0 PT Coag (Bld) [Time]Ordered By: Jose Hylton on 09-02-2024 Bedside Prothrombin Time 30.5 SEC High 11.7-14.9 [facility] Protime w/INR Fingerstickon 09-02-2024 INR Coag (PPP) [Relative time] 2.9 {INR} Normal [facility] Comment on above: Result Comment: Crit ical Value > 4.0 Performed By: #### L 9200.0000 #### [facility] [address] [place], [address] Protime Coagsen 30.5 SEC High 11.7-14.9 [facility] Comment on above: Performed By: #### L 9200.0000 #### [facility] [address] [place], [address] Whole blood prothrombin time Ordered By: Jose Warner on 09-02-2024 PT Coag (Bld) [Time] 30.5 s High 11.7-14.9 [facility] INR Coag (BldC) [Relative ti me]Ordered By: Jose Warner on 07-15-2024 INR Coag (Bld) [Relative time] 3.2 {INR} [facility] Comment on above: Critical Value > 4.0 PT Coag (Bld) [Time]Ordered By: [place] Warner on 07-15-2024 Bedside Prothrombin Time 32.7 SEC High 11.7-14.9 [facility] Protime w/INR Fingerstickon 07-15-2024 INR Coag (PPP) [Relative time] 3.2 {INR} Normal [facility] Comment on above: Result Comment: Crit ical Value > 4.0 Performed By: #### L 9200.0000 #### [facility] [address] [place], [address] Protime Coagsen 32.7 SEC High 11.7-14.9 [facility] Comment on above: Performed By: #### L 9200.0000 #### [facility] [address] [place], [address] Capillary blood internationa l normalized ratio (INR)Ordered By: Clark[place]ale Warner on 11-17-2023 INR Coag (BldC) [Relative time] 2.6 [facility] Comment on above: Critical Value > 4.0 Whole blood prothrombin time Ordered By: Jose Warner on 11-17-2023 PT Coag (Bld) [Time] 26.3 s 11.7-14.9 [facility] Capillary blood internationa l normalized ratio (INR)Ordered By: Clarkedale Warner on 10-03-2023 INR Coag (BldC) [Relative time] 3.2 [facility] Comment on above: Critical Value > 4.0 Whole blood prothrombin time Ordered By: Jose Hylton on 10-03-2023 PT Coag (Bld) [Time] 31.6 s 11.7-14.9 [facility] Basophil percentageOrdered B y: Marion Feng on 08-25-2023 Bilirubin [Mass/Vol] 0.90 mg/dL 0.20-1.00 [facility] Comment on above: For patients on eltr ombopag therapy, use of Dimension [place] TBIL is not recommended. Chloride [Moles/Vol] 109 mmol/L 98-107 [facility] Cholesterol [Mass/Vol] 160 mg/dL <200 [facility] Comment on above: <200 mg/dL Desirable 200-240 mg/dL Borderline >240 mg/dL High Risk Glucose [Mass/Vol] 113 mg/dL 74-106 [facility] Comment on above: Fasting Glucose resu lt from 100 to 125 mg/dL suggests IMPAIRED HOMEOSTASIS per A.D.A. criteria. Potassium [Moles/Vol] 4.4 mmol/L 3.5-5.1 [facility] Protein [Mass/Vol] 7.6 g/dL 6.4-8.2 [facility] Sodium [Moles/Vol] 140 mmol/L 136-145 [facility] Triglyceride [Mass/Vol] 178 mg/dL <199 [...] 08-25-2023 Albumin/Globulin [Mass ratio] 1.1 {ratio} 0.9-2.4 [facility] ALP [Catalytic activity/Vol] 51 U/L 45-117 [facility] ALT [Catalytic activity/Vol] 37 U/L 16-61 [facility] Cholesterol in HDL [Mass/Vol] 42 mg/dL >40 [facility] Comment on above: The drugs N-Acetylcy steine and Metamizole may falsely depress this assay. Reference Range HDL <40 mg/dL Low HDL Cholesterol HDL >or= 60 mg/dL High HDL Cholesterol Cholesterol in LDL [Mass/Vol] 82 mg/dL 0-130 [facility] CO2 [Moles/Vol] 29.0 mmol/L 21.0-32.0 [facility] Globulin (S) [Mass/Vol] 3.7 g/dL 2.2-4.2 [facility] Prostate specific Ag IA [Mass/Vol] 0.65 ng/mL 0.00-4.00 [facility] Comment on above: This test was perfor med using the TPSA assay method for IGAWorks chemistry system. Values obtained with differentassay methods cannot be used interchangably.When changing PSA assays in the course of monitoring apatient, additional sequential testing should be carriedout to confirm baseline values. Urea nitrogen/Creatinine [Mass ratio] 15.8 mg/mg 10-20 [facility] No Panel InformationOrdered By: Marion Feng on 08-25-2023 Estimated GFR (MDRD) Amer 78 mL/min >60 [facility] Comment on above: GFR Calc Estimated GFR (MDRD) Non-Af Amer 64 mL/min >60 [facility] Comment on above: Non- GFR Calc VLDL Cholesterol 36 mg/dL 5-40 [facility] Serum or plasma calcium laura urement (mass/volume)Ordered By: Marion Feng on 08-25-2023 Calcium [Mass/Vol] 9.4 mg/dL 8.5-10.1 [facility] Serum or plasma creatinine m easurement (mass/volume)Ordered By: Marion Feng on 08-25-2023 Creatinine [Mass/Vol] 1.20 mg/dL 0.70-1.30 [facility] Comment on above: The validity of the calculated GFR & GFRAA in patients over 70 years has not been determined. Clinical correlation is essential. Serum or plasma urea nitroge n measurement (mass/volume)Ordered By: Marion Feng on 08-25-2023 Urea nitrogen [Mass/Vol] 19 mg/dL 7-18 [facility] Thin prep Papanicolaou smear with manual screeningOrdered By: Marion Feng on 08-25-2023 Thin prep Papanicolaou smear with manual screening 3.9 g/dL 3.2-5.0 [facility] Thin prep Papanicolaou smear with manual screening 30 U/L 15-37 [facility] Thin prep Papanicolaou smear with manual screening 2 5-15 [facility] - CoagulationOrde red By: Jose Hylton on 07-22-2023 INR Coag (Bld) [Relative time] 2.3 {INR} [facility] Comment on above: Critical Value > 4.0 Whole blood prothrombin time Ordered By: Jose Hylton on 07-22-2023 PT Coag (Bld) [Time] 24.9 s 11.7-14.9 [facility] - CoagulationOrde red By: Jose Hylton on 05-23-2023 INR Coag (Bld) [Relative time] 2.2 {INR} [facility] Comment on above: Critical Value > 4.0 Whole blood prothrombin time Ordered By: Jose Hylton on 05-23-2023 PT Coag (Bld) [Time] 24.4 s 11.7-14.9 [facility] CNOVon 05-05-2023 CNOV Office Visit (AGCARDPOB) RICH JAMES I ([id number]) 1955 Desiree NFR Date Time Provider Department 05/05/23 8:00 AM AYLIN MATHEW AGCARDPOB During your visit today, we recorded the following information about you: Pulse Blood pressure Weight Height 52/minute 115/66 90.7 kg 1.778 m Aylin Mathew MD 05/05/2023 8:38 AM Signed [facility] SECTION OF CARDIAC PACING and ELECTROPHYSIOLOGY OUTPATIENT VISIT DATE May 05, 2023 OUTPATIENT VISIT TYPE NEW PRIMARY CARE PHYSICIAN: Marion Feng [address] [place] [address] REFERRING PHYSICIAN: SELF CHIEF COMPLAINT: Follow up [...] 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 He denies any symptoms of recurrent AF, angina, dizziness, lightheadedness, near-syncope, shortness of breath, worsening activity tolerance, or constitutional symptoms. He reports this is the best he has felt in years. Patient is compliant with his Toprol-XL and Coumadin regimens. 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 [...] regimens. CT of chest was performed at [facility] and showed no concerning findings. 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 Normal [facility] - CoagulationOrde red By: Jose Hylton on 04-02-2023 INR Coag (Bld) [Relative time] 2.7 {INR} [facility] Comment on above: Critical Value > 4.0 Whole blood prothrombin time Ordered By: Jose Hylton on 04-02-2023 PT Coag (Bld) [Time] 29.3 s 11.7-14.9 [facility] - CoagulationOrde red By: Jose Hylton on 02-06-2023 INR Coag (Bld) [Relative time] 2.8 {INR} [facility] Comment on above: Critical Value > 4.0 Whole blood prothrombin time Ordered By: Jose Hylton on 02-06-2023 PT Coag (Bld) [Time] 30.2 s 11.7-14.9 [facility] CNOVon 01-27-2023 CNOV Office Visit (ANIBALPOB) ERIKA,TIMOTHY I ([id number]) 1955 M NFR Date Time Provider Department 01/27/23 8:30 AM NIKITA ORTIZ During your visit today, we recorded the following information about you: Pulse Blood pressure Weight 55/minute 116/64 91.2 kg Nikita Ortiz APRN.CNP 01/27/2023 9:[address] [facility] General Cardiology Electrophysiology PRIMARY CARE PHYSICIAN: Marion Feng [address] [facility] [address] [place] [address] CHIEF COMPLAINT: Persistent atrial fibrillation. HISTORY OF PRESENT ILLNESS (copied from my previous office note on 11/05/2022): Rich is a pleasant 66-year-old gentleman who presents today for 3-month follow-up status post radiofrequency PVI with Dr. Mathew on 08/05/2022. Overall patient reports he has been feeling very well lately. 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 CT of chest was performed at [facility] and showed no concerning findings. Surface echo and Holter monitor results currently pending. Agreeable to follow-up in 3 months. Interval History: Rich is a pleasant 67-year-old gentleman who presents today for follow-up regarding history of persistent atrial fibrillation. Overall patient reports feeling excellent. 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 He denies any symptoms of recurrent AF, angina, dizziness, lightheadedness, near-syncope, shortness of breath, worsening activity tolerance, or constitutional symptoms. He reports this is the best he has felt in years. Patient is compliant with his Toprol-XL and Coumadin regimens. He is a [id number] of 3 secondary to age and DVT. [...] mg ta (more content not included)... Normal [facility] - CoagulationOrde red By: Jose Hytlon on 01-16-2023 INR Coag (Bld) [Relative time] 1.8 {INR} [facility] Comment on above: Critical Value > 4.0 Whole blood prothrombin time Ordered By: Jose Hylton on 01-16-2023 PT Coag (Bld) [Time] 19.7 s 11.7-14.9 [facility] Absolute lymphocyte countOrd ered By: Dr. Feng on 12-02-2022 Lymphocytes Auto (Unsp spec) [#/Vol] 1.54 10*3/uL 0.83-4.51 [facility] Basophil percentageOrdered B y: Dr. Feng on 12-02-2022 Basophils/100 WBC (Bld) 1.3 % 0-1 [facility] Bilirubin [Mass/Vol] 0.70 mg/dL 0.20-1.00 [facility] Comment on above: For patients on eltr ombopag therapy, use of Dimension [place] TBIL is not recommended. Chloride [Moles/Vol] 107 mmol/L 98-107 [facility] Cholesterol [Mass/Vol] 156 mg/dL <200 [facility] Comment on above: <200 mg/dL Desirable 200-240 mg/dL Borderline >240 mg/dL High Risk Eosinophils/100 WBC (Bld) 5.4 % 0-5 [facility] Glucose [Mass/Vol] 101 mg/dL 74-106 [facility] Comment on above: Fasting Glucose resu lt from 100 to 125 mg/dL suggests IMPAIRED HOMEOSTASIS per A.D.A. criteria. Neutrophils (Bld) [#/Vol] 3.4 10*3/uL 2.0-7.7 [facility] Neutrophils/100 WBC (Bld) 57.8 % 47-70 [facility] Potassium [Moles/Vol] 4.4 mmol/L 3.5-5.1 [facility] Protein [Mass/Vol] 7.5 g/dL 6.4-8.2 [facility] Sodium [Moles/Vol] 141 mmol/L 136-145 [facility] Triglyceride [Mass/Vol] 138 mg/dL <199 [facility] Comment on above: The drugs N-Acetylcy steine and Metamizole may falsely depress this assay.Serum Triglycerides Reference Interval Normal <150 mg/dL Borderline high 150 - 199 mg/dL High 200 - 499 mg/dL Very High > or = 500 mg/dL WBC (Bld) [#/Vol] 6.0 10*3/uL 4.4-11.0 [facility] Blood erythrocytes count (nu mber/volume)Ordered By: Dr. Feng on 12-02-2022 RBC (Bld) [#/Vol] 4.91 10*6/uL 4.6-6.2 [facility] Blood hemoglobin measurement (mass/volume)Ordered By: Dr. Feng on 12-02-2022 Hemoglobin (Bld) [Mass/Vol] 15.2 g/dL 13.0-16.5 [facility] Blood lymphocytes/100 leukoc ytesOrdered By: Dr. Feng on 12-02-2022 Lymphocytes/100 WBC (Bld) 25.8 % 19-41 [facility] Blood monocytes/100 leukocyt esOrdered By: Dr. Feng on 12-02-2022 Monocytes/100 WBC (Bld) 9.4 % 0-10 [facility] Blood platelet mean volumeOr dered By: Dr. Feng on 12-02-2022 Platelet mean volume (Bld) [Entitic vol] 9.8 fL 6.2-12.0 [facility] Determination of erythrocyte mean corpuscular volume (MCV)Ordered By: Dr. Feng on 12-02-2022 MCV (RBC) [Entitic vol] 94.7 fL 80-94 [facility] Hematocrit Auto (Bld) [Volum e fraction]Ordered By: Dr. Feng on 12-02-2022 Hematocrit (Bld) [Volume fraction] 46.5 % 40-54 [facility] INR in Blood by Coagulation assayOrdered By: Dr. Hylton on 12-02-2022 INR Coag (Bld) [Relative time] 2.1 {INR} [facility] - Chemistry and C hemistry - challengeOrdered By: Dr. Feng on 12-02-2022 ALP [Catalytic activity/Vol] 51 U/L 45-117 [facility] ALT [Catalytic activity/Vol] 38 U/L 16-61 [facility] CO2 [Moles/Vol] 27.0 mmol/L 21.0-32.0 [facility] Globulin (S) [Mass/Vol] 3.6 g/dL 2.2-4.2 [facility] Urea nitrogen/Creatinine [Mass ratio] 15.2 mg/mg 10-20 [facility] - CoagulationOrde red By: Dr. Hylton on 12-02-2022 PT Coag (PPP) [Time] 23.7 s 11.7-14.9 [facility] - Hematology and Cell countsOrdered By: Dr. Feng on 12-02-2022 Erythrocyte distribution width (RBC) [Entitic vol] 47.8 fL 35.1-43.9 [facility] Erythrocyte distribution width (RBC) [Ratio] 13.6 % 11.6-14.6 [facility] Immature granulocytes/100 WBC (Bld) 0.300 % 0.0-0.9 [facility] Comment on above: IG% - Immature Granu locytes (promyelocytes, myelocytes and metamyelocytes) > 1% indicates that a LEFT SHIFT is Present. MCH (RBC) [Entitic mass] 31.0 pg 27.0-32.0 [facility] Nucleated RBC/100 WBC (Bld) [Ratio] 0 % 0-5 [facility] MCHC Auto (RBC) [Mass/Vol]Or dered By: Dr. Feng on 12-02-2022 MCHC (RBC) [Mass/Vol] 32.7 g/dL 32-36 [facility] No Panel InformationOrdered By: Dr. Feng on 12-02-2022 Estimated GFR (MDRD) Amer 98 mL/min >60 [facility] Comment on above: GFR Calc Estimated GFR (MDRD) Non-Af Amer 81 mL/min >60 [facility] Comment on above: Non- GFR Calc Vitamin D 25-Hydroxy 43.0 ng/mL [facility] Comment on above: Vitamin D 25(OH) Sta tus Range Deficiency <20 ng/mL (50nmol/L) Insufficiency 20 - 30 ng/mL (50 - 75 nmol/L) Sufficiency 30 - 100 ng/mL (75 - 250 nmol/L) Toxicity >100 ng/mL (>250 nmol/L) Platelets bldOrdered By: Dr. Feng on 12-02-2022 Platelets (Bld) [#/Vol] 229 10*3/uL 150-450 [facility] Serum or plasma albumin laura urement (mass/volume)Ordered By: Dr. Feng on 12-02-2022 Albumin [Mass/Vol] 3.9 g/dL 3.2-5.0 [facility] Serum or plasma albumin/glob ulin mass ratioOrdered By: Dr. Feng on 12-02-2022 Albumin/Globulin [Mass ratio] 1.1 {ratio} 0.9-2.4 [facility] Serum or plasma calcium laura urement (mass/volume)Ordered By: Dr. Feng on 12-02-2022 Calcium [Mass/Vol] 9.2 mg/dL 8.5-10.1 [facility] Serum or plasma cholesterol in HDL measurement (mass/volume)Ordered By: Dr. Feng on 12-02-2022 Cholesterol in HDL [Mass/Vol] 41 mg/dL >40 [facility] Comment on above: The drugs N-Acetylcy steine and Metamizole may falsely depress this assay. Reference Range HDL <40 mg/dL Low HDL Cholesterol HDL >or= 60 mg/dL High HDL Cholesterol Serum or plasma cholesterol in VLDL measurement (mass/volume)Ordered By: Dr. Feng on 12-02-2022 Cholesterol in VLDL [Mass/Vol] 28 mg/dL 5-40 [facility] Serum or plasma creatinine m easurement (mass/volume)Ordered By: Dr. Feng on 12-02-2022 Creatinine [Mass/Vol] 0.99 mg/dL 0.70-1.30 [facility] Comment on above: The validity of the calculated GFR & GFRAA in patients over 70 years has not been determined. Clinical correlation is essential. Serum or plasma low density lipoprotein (LDL) cholesterol measurement (mass/volume)Ordered By: Dr. Feng on 12-02-2022 Cholesterol in LDL [Mass/Vol] 87 mg/dL 0-130 [facility] Serum or plasma urea nitroge n measurement (mass/volume)Ordered By: Dr. Feng on 12-02-2022 Urea nitrogen [Mass/Vol] 15 mg/dL 7-18 [facility] Thin prep Papanicolaou smear with manual screeningOrdered By: Dr. Feng on 12-02-2022 Thin prep Papanicolaou smear with manual screening 31 U/L 15-37 [facility] Thin prep Papanicolaou smear with manual screening 7 5-15 [facility] CNPNon 11-20-2022 CNPN Telephone (AGCARDPOB ) RICH JAMSE I ([id number]) 1955 M NFR Date Time Provider Department [...] Date Reviewed: 11/05/2022 Reviewed by: Nikita Ortiz APRN.CAMP ADVISOR - Fully Assessed Reason for Visit: Patient [...] Encounter Status:Closed by GEORGINA DUDLEY on 11/20/22 [facility] 11-19-2022 CNPN Telephone (AGCARDPOB ) ERIKA,TIMOTHY Whit ([id number]) 1955 M NFR Date Time Provider Department [...] Date Reviewed: 11/05/2022 Reviewed by: Nikita Ortiz APRN.CAMP ADVISOR - Fully Assessed Reason for Visit: Results [95] 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 Danyel 11-07-2022 BLAYNEN Telephone (Best Bid) RICH JAMES I ([id number]) 1955 M NFR Date Time Provider Department [...] pt. Placed in Dr. Mathew's inbox @ [place] for review. Sanjeev Langford November 19, 2022 1:20 PM Allergies As of Date: 11/07/2022 Noted Allergy Reaction SEASONAL ALLERGIES 02/18/2020 14 - Other: See Comments Date Reviewed: 11/05/2022 Reviewed by: Nikita Ortiz APRN.CAMP ADVISOR - Fully Assessed Reason for Visit: Results [...] Status:Closed by NILSA ROSE on 11/07/22 Normal [facility] CNOVon 11-05-2022 CNOV Office Visit (AGCARDPOB) RICH JAMES I ([id number]) 1955 M NFR Date Time Provider Department 11/05/22 10:00 AM NIKITA ORTIZ AGCARDPOPeng During your visit today, we recorded the following information about you: Pulse Blood pressure Weight 48/minute 111/60 93.4 kg Vicky Curtis MA 11/05/2022 10:33 AM Signed No cardiac complaints today. FRANCE Harry APRN.CAMP ADVISOR 11/05/2022 10:33 AM Signed [facility] Cardiology Electrophysiology PRIMARY CARE PHYSICIAN: Marion Feng [facility] [place] [address] CHIEF COMPLAINT: 3 months post radiofrequency PVI [...] well lately. 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 CT of chest was performed at [facility] and showed no concerning findings. Surface echo [...] Use Smokin (more content not included)... Normal [facility] ECHOon 11-05-2022 Echocardiography Echocardiography Report: Transthoracic Echo [facility] Date of service: 11/05/2022 8:23:[facility] Ordering physician: AYLIN MATHEW Indication: Sustained [...] * * Final * * * CC [employer] : [id number] Normal [facility] Basophil percentageOrdered B y: Hi Swanson on 10-14-2022 Creatinine [Mass/Vol] 1.3 mg/dL 0.70-1.30 [facility] Laboratory - Chemistry and C hemistry - challengeOrdered By: Hi Swanson on 10-14-2022 GFR/1.73 sq M.predicted among non-blacks MDRD (S/P/Bld) [Vol rate/Area] 58.0000 mL/min/{1.73_m2} >60 [facility] Laboratory - CoagulationOrde red By: Dr. Hylton on 10-03-2022 INR Coag (Bld) [Relative time] 2.0 {INR} [facility] Comment on above: Critical Value > 4.0 Whole blood prothrombin time Ordered By: Dr. Hylton on 10-03-2022 PT Coag (Bld) [Time] 21.5 s 11.7-14.9 [facility] - CoagulationOrde red By: Dr. Hylton on 09-13-2022 INR Coag (Bld) [Relative time] 2.3 {INR} [facility] Comment on above: Critical Value > 4.0 Whole blood prothrombin time Ordered By: Dr. Hylton on 09-13-2022 PT Coag (Bld) [Time] 27.3 s 11.7-14.9 [facility] CNPNon 08-23-2022 CNPN Telephone (AGCARDPOB ) ERIKARICH Sherman ([id number]) 1955 M NFR Date Time Provider Department [...] Visit Diagnosis:Persistent atrial fibrillation (HCC) [I48.19] Order(s):ECHO [[id number]] Order #: [id number]: 1 FUTURE perflutren lipid microspheres 1.3 mL in NaCl (PF) 0.9% 10 mL injection (DEFINITY)Disp: Rfl: sodium chloride 0.9 % (flush) 10 mL (BD POSIFLUSH)Disp: Rfl: HOLTER MONITOR 24 HOUR [[id number]] Order #: [id number] FUTURE CTA CHEST (NONGATED) W IVCON [[id number]] Order #: [id number] FUTURE iv contrast (will be provided with [...] daily. - Miscellaneous Medical Supply (COMPRESSION STOCKINGS) [facility] Misc Use as directed (Pressure 30-40mmHg) to [...] Encounter Stat (more content not included)... Normal [facility] ANES POSTPROC EVALon 023 ANES POSTPROC EVAL HNO ID: [id number] Author: Juwan Murry MD Service: Anesthesiology Author Type: Anesthesiologist Type: Anesthesia Postprocedure Evaluation Filed: 08/06/2022 11:09 AM Note Text: POST ANESTHESIA EVALUATION NOTE : 1955 Procedure Summary Date: 08/05/22 Room / Location: [place] EP 01 / [place] [facility] Anesthesia Start: 09 Anesthesia Stop: [...] August 06, 2022 TIME: 11:08 AM CSN: [id number] [facility] 08-06-2022 [facility] HNO ID: [id number] Author: Nikita Ortiz APRN.CAMP ADVISOR Service: Electrophysiology Author Type: Nurse Practitioner Type: Discharge Summary Filed: 08/06/2022 11:40 AM Note Text: Attestation signed by Aylin Mathew MD at 08/07/2022 5:02 PM Attending Note I reviewed the Braid Maker's note. I agree with the assessment and [...] call for appointment?: No Aylin Mathew MD [phone] [facility] [address] PCP Requested Referral Additional Provider to Provider [...] for stroke POA: Unknown Assessment AND Plan: [id number]-WODl of 3 secondary to embolism and age. Remains anticoagulated on Coumadin 5 mg daily. Treatment Team: Attending Provider: Aylin Mathew MD FOLLOW-UP APPOINTMENTS ALREADY SCHEDULED WITH A [facility] PROVIDER: No future appointments. ALLERGIES Allergen Reactions [...] on Wednesdays (more content not included)... Normal [facility] ANES PRE-OPon 08-05-2022 ANES PRE-OP HNO ID: [id number] Author: Juwan Murry MD Service: Anesthesiology Author Type: Anesthesiologist Type: Anesthesia Preprocedure Evaluation Filed: 08/06/2022 11:09 AM Note Text: ANESTHESIOLOGY DAY OF SURGERY NOTE : 1955 Procedure Information Date/Time: 08/05/2215 Procedure: COMPLETE EPS W/PVI ABL W/WO 3D MAP ICE (Bilateral) - carto/rf hANDp on 07/30? Check with Priyanka pacu/rou Location: [place] EP 01 / [place] [facility] Surgeons: Aylin Mathew MD Estimated [...] and consent discussed: yes. Patient / Responsible Democrat agrees to proceed: yes Patient / Surrogate [...] daily. - Miscellaneous Medical Supply (COMPRESSION STOCKINGS) [facility] Use as directed (Pressure 30-40mmHg) [...] August 05, 2022 TIME: 8:14 AM CSN: [id number] Normal [facility] Basic metabolic 2000 panelon 08-05-2022 Anion gap [Moles/Vol] 10 mmol/L Normal 9-18 [facility] Comment on above: Order Comment: Speci men Type: BLOOD SPECIMEN Ordering Facility: [facility] Address: [address] [place] [id number] Performed By: #### 2 4321-2 #### [facility] CLIA [id number] [address] [place] [address] [place] Calcium [Mass/Vol] 9.1 mg/dL Normal 8.5-10.2 [facility] Comment on above: Order Comment: Speci men Type: BLOOD SPECIMEN Ordering Facility: [facility] Address: [address] [place] [address] Performed By: #### 2 4321-2 #### [facility] CLIA [id number] [address] [place] [address] [place] Chloride [Moles/Vol] 107 mmol/L High 97-105 [facility] Comment on above: Order Comment: Speci men Type: BLOOD SPECIMEN Ordering Facility: [facility] Address: [address] [place] [address] Performed By: #### 2 4321-2 #### [facility] CLIA [id number] [address] [place] CO2 [Moles/Vol] 22 mmol/L Normal 22-30 [facility] Comment on above: Order Comment: Speci men Type: BLOOD SPECIMEN Ordering Facility: [facility] Address: [address] [place] [address] Performed By: #### 2 4321-2 #### [facility] CLIA [id number] [address] [place] Creatinine [Mass/Vol] 1.01 mg/dL Normal 0.73-1.22 [facility] Comment on above: Order Comment: Speci men Type: BLOOD SPECIMEN Ordering Facility: [facility] Address: [address] [place] [address] Performed By: #### 2 4321-2 #### [facility] CLIA [id number] [address] ESTIMATED GLOMERULAR FILTRATION RATE 83 mL/min/1.73m??? Normal >=60 [facility] Comment on above: Order Comment: Speci men Type: BLOOD SPECIMEN Ordering Facility: [facility] Address: [address] [place], [place] [id number] Result Comment: Vidya mated Glomerular Filtration Rate [...] GFR. Performed By: #### 2 4321-2 #### [facility] CLIA [id number] [address] [place] [address] [place] Glucose [Mass/Vol] 107 mg/dL High 74-99 [facility] Comment on above: Order Comment: Júnior ireland Type: BLOOD SPECIMEN Ordering Facility: [facility] Address: [address] [place] [address] Result Comment: The [place] Diabetes Association (ADA) provides guidance for cutoff [...] Standards of Medical Care in Diabetes 2016, [place] [employer]. Diabetes Care. 2016.39(Suppl 1). Performed By: #### 2 4321-2 #### [facility] CLIA [id number] [address] [place] [address] [place] Potassium [Moles/Vol] 4.3 mmol/L Normal 3.7-5.1 [facility] Comment on above: Order Comment: Júnior ireland Type: BLOOD SPECIMEN Ordering Facility: [facility] Address: [address] Performed By: #### 2 4321-2 #### [facility] CLIA [id number] [address] [place] [address] [place] Sodium [Moles/Vol] 139 mmol/L Normal 136-144 [facility] Comment on above: Order Comment: Speci men Type: BLOOD SPECIMEN Ordering Facility: [facility] Address: [address] [address] Performed By: #### 2 4321-2 #### [facility] CLIA [id number] [address] Urea nitrogen [Mass/Vol] 17 mg/dL Normal 9-24 [facility] Comment on above: Order Comment: Speci men Type: BLOOD SPECIMEN Ordering Facility: [facility] Address: [address] [address] Performed By: #### 2 4321-2 #### [facility] CLIA [id number] [address] [facility] CBC panel Auto (Bld)on 08-05 Erythrocyte distribution width (RBC) [Ratio] 14.1 % Normal 11.5-15.0 [facility] Comment on above: Order Comment: Speci men Type: BLOOD SPECIMEN Ordering Facility: [facility] Address: [address] [address] Performed By: #### T SCR #### [facility] CLIA [id number] [address] [facility] Hematocrit (Bld) [Volume fraction] 46.6 % Normal 39.0-51.0 [facility] Comment on above: Order Comment: Speci men Type: BLOOD SPECIMEN Ordering Facility: [facility] Address: [address] [address] Performed By: #### T SCR #### [facility] CLIA [id number] [address] [place] Hemoglobin (Bld) [Mass/Vol] 15.3 g/dL Normal 13.0-17.0 [facility] Comment on above: Order Comment: Speci men Type: BLOOD SPECIMEN Ordering Facility: [facility] Address: [address] [address] Performed By: #### T SCR #### [facility] CLIA [id number] [address] MCH (RBC) [Entitic mass] 31.2 pg Normal 26.0-34.0 [facility] Comment on above: Order Comment: Speci men Type: BLOOD SPECIMEN Ordering Facility: [facility] Address: [address] [place] [address] Performed By: #### T SCR #### [facility] CLIA [id number] [address] MCHC (RBC) [Mass/Vol] 32.8 g/dL Normal 30.5-36.0 [facility] Comment on above: Order Comment: Speci men Type: BLOOD SPECIMEN Ordering Facility: [facility] Address: [address] [place] [address] Performed By: #### T SCR #### [facility] CLIA [id number] [address] MCV (RBC) [Entitic vol] 95.[address] fL Normal 80.0-100.0 [facility] Comment on above: Order Comment: Speci men Type: BLOOD SPECIMEN Ordering Facility: [facility] Address: [address] [place] [address] Performed By: #### T SCR #### [facility] CLIA [id number] [address] Nucleated RBC (Bld) [#/Vol] 10*3/uL Normal <0.01 [facility] Comment on above: Order Comment: Speci men Type: BLOOD SPECIMEN Ordering Facility: [facility] Address: [address] [place] [address] Performed By: #### T SCR #### [facility] CLIA [id number] [address] Platelet mean volume (Bld) [Entitic vol] 9.6 fL Normal 9.0-12.7 [facility] Comment on above: Order Comment: Speci men Type: BLOOD SPECIMEN Ordering Facility: [facility] Address: [address] [address] Performed By: #### T SCR #### [facility] CLIA [id number] [address] Platelets (Bld) [#/Vol] 206 10*3/uL Normal 150-400 [facility] Comment on above: Order Comment: Speci men Type: BLOOD SPECIMEN Ordering Facility: [facility] Address: [address] [place] [address] Performed By: #### T SCR #### [facility] CLIA [id number] [address] RBC (Bld) [#/Vol] 4.90 10*6/uL Normal 4.20-6.00 [facility] Comment on above: Order Comment: Speci men Type: BLOOD SPECIMEN Ordering Facility: [facility] Address: [address] [place] [address] Performed By: #### T SCR #### [facility] CLIA [id number] [address] WBC (Bld) [#/Vol] 5.62 10*3/uL Normal 3.70-11.00 [facility] Comment on above: Order Comment: Speci men Type: BLOOD SPECIMEN Ordering Facility: [facility] Address: [address] [place] [address] Performed By: #### T SCR #### [facility] CLIA [id number] [address] CONFIRM BLOOD TYPEon -16-2 023 ABO A Normal [facility] Comment on above: Order Comment: Speci men Type: BLOOD SPECIMEN Ordering Facility: [facility] Address: [address] [place] [id number] Performed By: #### C ONABO #### [facility] CLIA [id number] [address] Rh Nom (Bld) Positive Normal [facility] Comment on above: Order Comment: Speci men Type: BLOOD SPECIMEN Ordering Facility: [facility] Address: [address] [place] [phone] Performed By: #### C ONABO #### [facility] CLIA [id number] 1 [place] [address] [place] ECG COMPLETEon 08-05-2022 ECG COMPLETE Ventricular Rate : 5 9 BPM Atrial Rate : 73 BPM P-R Interval : 188 ms QRS Duration : 122 ms Q-T Interval : 450 ms QTC Calculation(Bazett) : 445 ms Calculated P Langley : 77 degrees Calculated R [place] : -58 degrees Calculated T Langle[place] : -39 degrees SINUS RHYTHM WITH BLOCKED PREMATURE ATRIAL COMPLEXES RIGHT BUNDLE BRANCH BLOCK LEFT ANTERIOR FASCICULAR BLOCK BIFASCICULAR BLOCK T WAVE ABNORMALITY, CONSIDER LATERAL ISCHEMIA ABNORMAL ECG NO PREVIOUS ECGS AVAILABLE Confirmed by MD HOWELL KAMALESH ([id number]) on 08/07/2022 4:32:27 PM NAME : RICH JAMES PID : [id number] : 1955 Gender : Male Race : ORD : [id number] Procedure Date : Aug 05 2022 16:43:14 Edit Date : Aug 07 2022 16:32:28 Diagnosis: SINUS RHYTHM WITH BLOCKED PREMATURE ATRIAL COMPLEXES RIGHT BUNDLE BRANCH BLOCK LEFT ANTERIOR FASCICULAR BLOCK BIFASCICULAR BLOCK T WAVE ABNORMALITY, CONSIDER LATERAL ISCHEMIA ABNORMAL ECG NO PREVIOUS ECGS AVAILABLE Confirmed by MD HOWELL KAMALESH ([id number]) on 08/07/2022 4:32:27 PM Test Reason : Arrhythmia Location : 29 : LAB POOL Overread By : MD HOWELL KAMALESH Edited By : MD HOWELL KAMALESH Referred By : AYLIN MATHEW Acquired by : LEONA STONE [facility] HISTORY PHYSICALon HISTORY PHYSICAL HNO ID: [id number] Author: Aylin Mathew MD Service: Electrophysiology Author [...] August 05, 2022 TIME: 9:04 AM Normal [facility] HISTORY PHYSICAL HNO ID: [id number] Author: Nikita Ortiz APRN.CAMP ADVISOR Service: Electrophysiology Author Type: Nurse Practitioner Type: [...] anesthesia, procedure overview, recovery, overnight stay in [facility], medications, and follow-up. Risk and benefit discussion [...] tolerance as well as shortness of breath. [id number] of at least 3 secondary to age [...] Negative. Cardiova (more content not included)... Normal [facility] OPERATIVE NOon 01-16-2023 OPERATIVE NO HNO ID: [id number] Author: Aylin Mathew MD Service: Electrophysiology Author [...] usual standard sterile fashion 2 short 8 Iranian sheaths were placed in the right femoral vein and a long 11 Iranian sheath was placed in the left femoral [...] resulted in Sinus rhythm. CL 960 ms OK 155 QRS 130 RBBBB QT 436 AcuNav ice catheter was placed in the right atrium and baseline images obtained. The Lt common os was short. RIPV was small. Next the short 8 Iranian sheath was exchanged for a Cyn transseptal [...] and 20 mg protamine administered The 11 Iranian sheath in the left groin was exchanged for a short 8Fr sheath and closed with perclose, hemostasis obtained The right sided sheaths were removed and Perclose used to achieve hemostasis. Patient tolerated the procedure No complications Patient transported out of the lab in stable condition (more content not included)... [facility] SARS-CoV-2 RNA Resp Ql MIKE+p robeon 08-05-2022 SARS-CoV-2 (COVID-19) RNA MIKE+probe Ql (Resp) COVID 19 RESULT: SARS-CoV-2 (Agent of COVID-19) Not Detected by RT-PCR or equivalent method. This test has been authorized by FDA under an Emergency Use Authorization (EUA). [facility] Comment on above: Performed By: #### [id number] #### [facility] CLIA [id number] [address] [place] [address] TYPE + SCREENon 08-05-[address] [facility] Comment on above: Order Comment: Speci men Type: BLOOD SPECIMEN Ordering Facility: [facility] Address: [address] [place] [address] Performed By: #### T SCR #### [facility] CLIA [id number] [address] HISTORICAL AB SCR STATUS Negative [facility] Comment on above: Order Comment: Speci men Type: BLOOD SPECIMEN Ordering Facility: [facility] Address: [address] [address] Performed By: #### T SCR #### [facility] CLIA [id number] [address] [place] [address] Rh Nom (Bld) Positive [facility] Comment on above: Order Comment: Speci men Type: BLOOD SPECIMEN Ordering Facility: [facility] Address: [address] [address] Performed By: #### T SCR #### [facility] CLIA [id number] [address] TYPE AND SCREEN EXPIRATION 08/08/2022 23:59 Normal [facility] Comment on above: Order Comment: Speci men Type: BLOOD SPECIMEN Ordering Facility: [facility] Address: [place] [address] Performed By: #### T SCR #### [facility] CLIA [id number] 1 [place] [address] [place] Laboratory - CoagulationOrde red By: Dr. Hylton on 07-30-2022 INR Coag (Bld) [Relative time] 2.2 {INR} [facility] Comment on above: Critical Value > 4.0 Whole blood prothrombin time Ordered By: Dr. Hylton on 07-30-2022 PT Coag (Bld) [Time] 25.9 s 11.7-14.9 [facility] Laboratory - CoagulationOrde red By: Dr. Hylton on 07-16-2022 INR Coag (Bld) [Relative time] 2.3 {INR} [facility] Comment on above: Critical Value > 4.0 Whole blood prothrombin time Ordered By: Dr. Hylton on 07-16-2022 PT Coag (Bld) [Time] 26.6 s 11.7-14.9 [facility] CNPNon 07-08-2022 CNPN Telephone (AGCANGELY ) RICH JAMES I ([id number]) 1955 M NFR Date Time Provider Department [...] before the procedure. 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 You will stay overnight for observation. Patient should continue to take medications as prescribed the morning of the procedure with just a sip of water unless otherwise instructed. Pt verbalized understanding of the above instructions Pt is getting weekly INR's will continue to monitor. BENIGNO Vaughan RN 07/08/2022 2:53 PM Signed Pt's name has been added to [email or web address] procedure board. BENIGNO Mensah 07/11/2022 11:57 AM Signed Patient's procedure date changed to 08/05/[address] Mathew. To continue weekly INRs until procedure. Spoke with patient, he verbalized understanding. Dianne Rust RN 07/11/2022 1:21 PM Signed [place] procedure board updated. BENIGNO Mensah RN 07/17/2022 11:26 AM Addendum 06/25/22- INR- 3.0 07/02/22- INR- 2.6 07/09/22 INR- 2.4 07/16/22- INR- 2.3 Next INR at [facility] is scheduled for 07/23/22. Scheduled for cardioversion on 08/05/[address] Mathew. BENIGNO Tang RN 08/01/2022 10:48 AM Signed INR 07/23/22= 2.3 BENIGNO Mensah RN 08/01/2022 10:56 AM Signed Spoke with with staff at [facility]. 07/30/22 INR 2.2. She will fax [...] daily. - Miscellaneous Medical Supply (COMPRESSION STOCKINGS) [facility] Use as directed (Pressure 30-40mmHg) to Right [...] Encounter Status:Closed by KIANNA CRAIG on 07/08/22 [facility] CNCOon 07-02-[address] [facility] CNPNon 06-20-2022 CNPN Telephone (AGCARDPOB ) RICH JAMES I ([id number]) 1955 M NFR Date Time Provider Department [...] 06/21/2022 8:56 AM Signed Left message on [employer] requesting pt return call for instructions to check INR weekly. Office phone number provided. BENIGNO Mensah RN 06/24/2022 9:50 AM Signed Spoke with pt. He voices understanding to have INRs done every week. He reports he goes to the [facility]. BENIGNO Mensah 07/04/2022 12:09 PM [...] MD - Fully Assessed Reason for Visit: 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 - Other [3602] Primary Visit Diagnosis:Persistent atrial fibrillation (HCC) [I48.19] Order(s):SURGICAL REQUEST - ELECTIVE (02/2020) [[id number]] Order #: [id number]: 1 Prescriptions as of 07/16/2022 - fluticasone [...] Status:Closed by AYLIN MATHEW on 06/20/22 Normal [facility] Absolute lymphocyte countOrd ered By: Dr. Feng on 06-11-2022 Lymphocytes Auto (Unsp spec) [#/Vol] 1.55 10*3/uL 0.83-4.51 [facility] Basophil percentageOrdered B y: Dr. Feng on 06-11-2022 Basophils/100 WBC (Bld) 0.9 % 0-1 [facility] Bilirubin [Mass/Vol] 0.50 mg/dL 0.20-1.00 [facility] Comment on above: For patients on eltr ombopag therapy, use of Dimension [place] TBIL is not recommended. Chloride [Moles/Vol] 109 mmol/L 98-107 [facility] Cholesterol [Mass/Vol] 155 mg/dL <200 [facility] Comment on above: <200 mg/dL Desirable 200-240 mg/dL Borderline >240 mg/dL High Risk Eosinophils/100 WBC (Bld) 3.8 % 0-5 [facility] Glucose [Mass/Vol] 102 mg/dL 74-106 [facility] Comment on above: Fasting Glucose resu lt from 100 to 125 mg/dL suggests IMPAIRED HOMEOSTASIS per A.D.A. criteria. Neutrophils (Bld) [#/Vol] 3.9 10*3/uL 2.0-7.7 [facility] Neutrophils/100 WBC (Bld) 60.5 % 47-70 [facility] Potassium [Moles/Vol] 4.5 mmol/L 3.5-5.1 [facility] Protein [Mass/Vol] 7.3 g/dL 6.4-8.2 [facility] Sodium [Moles/Vol] 140 mmol/L 136-145 [facility] Triglyceride [Mass/Vol] 141 mg/dL <199 [facility] Comment on above: The drugs N-Acetylcy steine and Metamizole may falsely depress this assay.Serum Triglycerides Reference Interval Normal <150 mg/dL Borderline high 150 - 199 mg/dL High 200 - 499 mg/dL Very High > or = 500 mg/dL WBC (Bld) [#/Vol] 6.4 10*3/uL 4.4-11.0 [facility] Blood erythrocytes count (nu mber/volume)Ordered By: Dr. Feng on 06-11-2022 RBC (Bld) [#/Vol] 4.97 10*6/uL 4.6-6.2 [facility] Blood hemoglobin measurement (mass/volume)Ordered By: Dr. Feng on 06-11-2022 Hemoglobin (Bld) [Mass/Vol] 15.3 g/dL 13.0-16.5 [facility] Blood lymphocytes/100 leukoc ytesOrdered By: Dr. Feng on 06-11-2022 Lymphocytes/100 WBC (Bld) 24.3 % 19-41 [facility] Blood monocytes/100 leukocyt esOrdered By: Dr. Feng on 06-11-2022 Monocytes/100 WBC (Bld) 10.2 % 0-10 [facility] Blood platelet mean volumeOr dered By: Dr. Feng on 06-11-2022 Platelet mean volume (Bld) [Entitic vol] 9.6 fL 6.2-12.0 [facility] Determination of erythrocyte mean corpuscular volume (MCV)Ordered By: Dr. Feng on 06-11-2022 MCV (RBC) [Entitic vol] 95.4 fL 80-94 [facility] Hematocrit Auto (Bld) [Volum e fraction]Ordered By: Dr. Feng on 06-11-2022 Hematocrit (Bld) [Volume fraction] 47.4 % 40-54 [facility] INR in Blood by Coagulation assayOrdered By: Dr. Feng on 06-11-2022 INR Coag (Bld) [Relative time] 1.8 {INR} [facility] Laboratory - Chemistry and C hemistry - challengeOrdered By: Dr. Feng on 06-11-2022 ALP [Catalytic activity/Vol] 49 U/L 45-117 [facility] ALT [Catalytic activity/Vol] 30 U/L 16-61 [facility] CO2 [Moles/Vol] 27.0 mmol/L 21.0-32.0 [facility] Globulin (S) [Mass/Vol] 3.8 g/dL 2.2-4.2 [facility] Urea nitrogen/Creatinine [Mass ratio] 15.3 mg/mg 10-20 [facility] Laboratory - CoagulationOrde red By: Dr. Feng on 06-11-2022 PT Coag (PPP) [Time] 20.4 s 11.7-14.9 [facility] Laboratory - Hematology and Cell countsOrdered By: Dr. Feng on 06-11-2022 Erythrocyte distribution width (RBC) [Entitic vol] 50.8 fL 35.1-43.9 [facility] Erythrocyte distribution width (RBC) [Ratio] 14.5 % 11.6-14.6 [facility] Immature granulocytes/100 WBC (Bld) 0.300 % 0.0-0.9 [facility] Comment on above: IG% - Immature Granu locytes (promyelocytes, myelocytes and metamyelocytes) > 1% indicates that a LEFT SHIFT is Present. MCH (RBC) [Entitic mass] 30.8 pg 27.0-32.0 [facility] Nucleated RBC/100 WBC (Bld) [Ratio] 0 % 0-5 [facility] MCHC Auto (RBC) [Mass/Vol]Or dered By: Dr. Feng on 06-11-2022 MCHC (RBC) [Mass/Vol] 32.3 g/dL 32-36 [facility] No Panel InformationOrdered By: Dr. Feng on 06-11-2022 Estimated GFR (MDRD) Amer 75 mL/min >60 [facility] Comment on above: GFR Calc Estimated GFR (MDRD) Non-Af Amer 62 mL/min >60 [facility] Comment on above: Non- GFR Calc Prostate Specific Antigen Screen 0.32 ng/mL 0.00-4.00 [facility] Comment on above: This test was perfor med using the TPSA assay method for the[employer] chemistry system. Values obtained with differentassay methods cannot be used interchangably.When changing PSA assays in the course of monitoring apatient, additional sequential testing should be carriedout to confirm baseline values. Thyroid Stimulating Hormone (TSH) 1.66 uIU/mL 0.358-3.74 [facility] Vitamin D 25-Hydroxy 40.8 ng/mL [facility] Comment on above: Vitamin D 25(OH) Sta tus Range Deficiency <20 ng/mL (50nmol/L) Insufficiency 20 - 30 ng/mL (50 - 75 nmol/L) Sufficiency 30 - 100 ng/mL (75 - 250 nmol/L) Toxicity >100 ng/mL (>250 nmol/L) Platelets bldOrdered By: Dr. Feng on 06-11-2022 Platelets (Bld) [#/Vol] 226 10*3/uL 150-450 [facility] Serum or plasma albumin laura urement (mass/volume)Ordered By: Dr. Feng on 06-11-2022 Albumin [Mass/Vol] 3.5 g/dL 3.2-5.0 [facility] Serum or plasma albumin/glob ulin mass ratioOrdered By: Dr. Feng on 06-11-2022 Albumin/Globulin [Mass ratio] 0.9 {ratio} 0.9-2.4 [facility] Serum or plasma calcium laura urement (mass/volume)Ordered By: Dr. Feng on 06-11-2022 Calcium [Mass/Vol] 8.9 mg/dL 8.5-10.1 [facility] Serum or plasma cholesterol in HDL measurement (mass/volume)Ordered By: Dr. Feng on 06-11-2022 Cholesterol in HDL [Mass/Vol] 34 mg/dL >40 [facility] Comment on above: The drugs N-Acetylcy steine and Metamizole may falsely depress this assay. Reference Range HDL <40 mg/dL Low HDL Cholesterol HDL >or= 60 mg/dL High HDL Cholesterol Serum or plasma cholesterol in VLDL measurement (mass/volume)Ordered By: Dr. Feng on 06-11-2022 Cholesterol in VLDL [Mass/Vol] 28 mg/dL 5-40 [facility] Serum or plasma creatinine m easurement (mass/volume)Ordered By: Dr. Feng on 06-11-2022 Creatinine [Mass/Vol] 1.24 mg/dL 0.70-1.30 [facility] Comment on above: The validity of the calculated GFR & GFRAA in patients over 70 years has not been determined. Clinical correlation is essential. Serum or plasma low density lipoprotein (LDL) cholesterol measurement (mass/volume)Ordered By: Dr. Feng on 06-11-2022 Cholesterol in LDL [Mass/Vol] 93 mg/dL 0-130 [facility] Serum or plasma urea nitroge n measurement (mass/volume)Ordered By: Dr. Feng on 06-11-2022 Urea nitrogen [Mass/Vol] 19 mg/dL 7-18 [facility] Thin prep Papanicolaou smear with manual screeningOrdered By: Dr. Feng on 06-11-2022 Thin prep Papanicolaou smear with manual screening 20 U/L 15-37 [facility] Thin prep Papanicolaou smear with manual screening 4 5-15 [facility] Laboratory - CoagulationOrde red By: Dr. Hylton on 06-04-2022 INR Coag (Bld) [Relative time] 2.0 {INR} [facility] Comment on above: Critical Value > 4.0 Whole blood prothrombin time Ordered By: Dr. Hylton on 06-04-2022 PT Coag (Bld) [Time] 23.2 s 11.7-14.9 [facility] Laboratory - Coagulationon 1 07-30-2021 INR Coag (Bld) [Relative time] 2.1 {INR} [facility] Work Phone: Comment on above: Critical Value > 4.0 Whole blood prothrombin time Ordered By: Dr. Hylton on 05-30-2022 PT Coag (Bld) [Time] 24.9 s 11.7-14.9 [facility] Basophil percentageOrdered B y: Dr. Hylton on 05-23-2022 Chloride [Moles/Vol] 108 mmol/L 98-107 [facility] Glucose [Mass/Vol] 98 mg/dL 74-106 [facility] Potassium [Moles/Vol] 4.5 mmol/L 3.5-5.1 [facility] Sodium [Moles/Vol] 139 mmol/L 136-145 [facility] Laboratory - Chemistry and C hemistry - challengeOrdered By: Dr. Hylton on 05-23-2022 CO2 [Moles/Vol] 26.0 mmol/L 21.0-32.0 [facility] Urea nitrogen/Creatinine [Mass ratio] 16.0 mg/mg 10-20 [facility] Laboratory - Coagulationon 1 07-23-2021 PT Coag (PPP) [Time] 24.8 s 11.7-14.9 [facility] Work Phone: No Panel InformationOrdered By: Dr. Hylton on 05-23-2022 Estimated GFR (MDRD) Amer 75 mL/min >60 [facility] Comment on above: GFR Calc Estimated GFR (MDRD) Non-Af Amer 62 mL/min >60 [facility] Comment on above: Non- GFR Calc Serum or plasma calcium laura urement (mass/volume)Ordered By: Dr. Hylton on 05-23-2022 Calcium [Mass/Vol] 8.8 mg/dL 8.5-10.1 [facility] Serum or plasma creatinine m easurement (mass/volume)Ordered By: Dr. Hylton on 05-23-2022 Creatinine [Mass/Vol] 1.25 mg/dL 0.70-1.30 [facility] Comment on above: The validity of the calculated GFR & GFRAA in patients over 70 years has not been determined. Clinical correlation is essential. Serum or plasma urea nitroge n measurement (mass/volume)Ordered By: Dr. Hylton on 05-23-2022 Urea nitrogen [Mass/Vol] 20 mg/dL 7-18 [facility] Thin prep Papanicolaou smear with manual screeningOrdered By: Dr. Hylton on 05-23-2022 Thin prep Papanicolaou smear with manual screening 5 5-15 [facility] CNOVon 05-15-2022 CNOV Office Visit (AGCARDPOB) RICH JAMES I ([id number]) 1955 M NFR Date Time Provider Department 05/15/22 2:20 PM AYLIN MATHEW During your visit today, we recorded the following information about you: Pulse Respiration Blood pressure Weight 60/minute 18/minute 108/64 95.3 kg Height 1.778 m Keesha Vargas MA 05/15/2022 3:25 PM Signed Patient denies any cardiac issues or symptoms. Aylin Mathew MD 05/15/2022 3:25 PM Signed [facility] SECTION OF CARDIAC PACING and ELECTROPHYSIOLOGY OUTPATIENT VISIT DATE May 15, 2022 OUTPATIENT VISIT TYPE CONSULTATION PRIMARY CARE PHYSICIAN: Magen Ayon [address] [place] [address] REFERRING PHYSICIAN: No referring provider defined for this encounter. 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 Normal [facility] Laboratory - Coagulationon 1 INR Coag (Bld) [Relative time] 2.2 {INR} [facility] Work Phone: Comment on above: Critical Value > 4.0 Whole blood prothrombin time on 05-15-2022 PT Coag (Bld) [Time] 26.2 s 11.7-14.9 [facility] Work Phone: Laboratory - Coagulationon 0 04-11-2022 INR Coag (Bld) [Relative time] 2.4 {INR} [facility] Work Phone: Comment on above: Critical Value > 4.0 Whole blood prothrombin time on 04-11-2022 PT Coag (Bld) [Time] 27.8 s 11.7-14.9 [facility] Work Phone: Laboratory - Coagulationon 0 04-04-2022 INR Coag (Bld) [Relative time] 2.2 {INR} [facility] Work Phone: Comment on above: Critical Value > 4.0 Whole blood prothrombin time on 04-04-2022 PT Coag (Bld) [Time] 26.3 s 11.7-14.9 [facility] Work Phone: Basophil percentageon 2021 Chloride [Moles/Vol] 107 mmol/L 98-107 [facility] Work Phone: Glucose [Mass/Vol] 104 mg/dL 74-106 [facility] Work Phone: Comment on above: Fasting Glucose resu lt from 100 to 125 mg/dL suggests IMPAIRED HOMEOSTASIS per A.D.A. criteria. Potassium [Moles/Vol] 4.2 mmol/L 3.5-5.1 [facility] Work Phone: Sodium [Moles/Vol] 139 mmol/L 136-145 [facility] Work Phone: Laboratory - Chemistry and C hemistry - challengeon 03-29-2022 CO2 [Moles/Vol] 27.0 mmol/L 21.0-32.0 [facility] Work Phone: Urea nitrogen/Creatinine [Mass ratio] 16.3 mg/mg 10-20 [facility] Work Phone: Laboratory - Coagulationon 0 03-29-2022 PT Coag (PPP) [Time] 25.3 s 11.7-14.9 [facility] Work Phone: No Panel Informationon 03-29 Estimated GFR (MDRD) Amer 72 mL/min >60 [facility] Work Phone: Comment on above: GFR Calc Estimated GFR (MDRD) Non-Af Amer 59 mL/min >60 [facility] Work Phone: Comment on above: Non- GFR Calc Serum or plasma calcium laura urement (mass/volume)on 03-29-2022 Calcium [Mass/Vol] 9.0 mg/dL 8.5-10.1 [facility] Work Phone: Serum or plasma creatinine m easurement (mass/volume)on 03-29-2022 Creatinine [Mass/Vol] 1.29 mg/dL 0.70-1.30 [facility] Work Phone: Comment on above: The validity of the calculated GFR & GFRAA in patients over 70 years has not been determined. Clinical correlation is essential. Serum or plasma urea nitroge n measurement (mass/volume)on 03-29-2022 Urea nitrogen [Mass/Vol] 21 mg/dL 7-18 [facility] Work Phone: Thin prep Papanicolaou smear with manual screeningon 03-29-2022 Thin prep Papanicolaou smear with manual screening 5 5-15 [facility] Work Phone: Laboratory - Coagulationon 0 03-15-2022 INR Coag (Bld) [Relative time] 3.3 {INR} [facility] Work Phone: Comment on above: Critical Value > 4.0 Whole blood prothrombin time on 03-15-2022 PT Coag (Bld) [Time] 36.9 s 11.7-14.9 [facility] Work Phone: Laboratory - Coagulationon 0 12-26-2021 INR Coag (Bld) [Relative time] 2.9 {INR} [facility] Work Phone: Comment on above: Critical Value > 4.0 Whole blood prothrombin time on 12-26-2021 PT Coag (Bld) [Time] 33.3 s 11.7-14.9 [facility] Work Phone: Laboratory - Coagulationon 0 11-26-2021 INR Coag (Bld) [Relative time] 3.0 {INR} [facility] Work Phone: Comment on above: Critical Value > 4.0 Whole blood prothrombin time on 11-26-2021 PT Coag (Bld) [Time] 33.9 s 11.7-14.9 [facility] Work Phone: Laboratory - Coagulationon 0 11-05-2021 INR Coag (Bld) [Relative time] 2.2 {INR} [facility] Work Phone: Comment on above: Critical Value > 4.0 Whole blood prothrombin time on 11-05-2021 PT Coag (Bld) [Time] 25.4 s 11.7-14.9 [facility] Work Phone: Laboratory - Coagulationon 0 10-01-2021 INR Coag (Bld) [Relative time] 3.0 {INR} [facility] Work Phone: Comment on above: Critical Value > 4.0 Whole blood prothrombin time on 10-01-2021 PT Coag (Bld) [Time] 34.4 s 11.7-14.9 [facility] Work Phone: Laboratory - Coagulationon 0 08-31-2021 INR Coag (Bld) [Relative time] 2.4 {INR} [facility] Work Phone: Comment on above: Critical Value > 4.0 Whole blood prothrombin time on 08-31-2021 PT Coag (Bld) [Time] 27.9 s 11.9-14.4 [facility] Work Phone: Clinical Summary: HMSPatient IDon 06-01-2020 AOP Antoinette Matute [facility] Work Phone: No Panel Information [facility] Vital Signs Date Time Vital Sign Value Performing Clinician Facility 03-11-2025 07:46-0400 Body height 175.[address] Marion Feng MD Work Phone: [facility] 03-11-2025 07:46-0400 Body mass index (BMI) [Ratio] 27.1 kg/m2 Dr. Marion Feng MD Work Phone: [facility] 03-11-2025 07:46-0400 Body temperature 97.5 [degF] Dr. Marion Feng MD Work Phone: [facility] 03-11-2025 07:46-0400 Body weight 83.[address] Marion Feng MD Work Phone: [facility] 03-11-2025 07:46-0400 Diastolic blood pressure 66 mm[Hg] Dr. Marion Feng MD Work Phone: [facility] 03-11-2025 07:46-0400 Heart rate 49 /min Dr. Marion Feng MD Work Phone: [facility] 03-11-2025 07:46-0400 Respiratory rate 18 /min Dr. Marion Feng MD Work Phone: [facility] 03-11-2025 07:46-0400 SaO2% (BldA) [Mass fraction] 95 % Dr. Marion Feng MD Work Phone: [facility] 03-11-2025 07:46-0400 Systolic blood pressure 124 mm[Hg] Dr. Marion Feng MD Work Phone: [facility] 03-05-2025 11:39-0400 Body temperature 97.6 [degF] Dr. Marion Feng MD Work Phone: [facility] 03-05-2025 11:39-0400 Diastolic blood pressure 49 mm[Hg] Dr. Marion Feng MD Work Phone: [facility] 03-05-2025 11:39-0400 Heart rate 72 /min Dr. Marion Feng MD Work Phone: [facility] 03-05-2025 11:39-0400 Respiratory rate 18 /min Dr. Marion Feng MD Work Phone: [facility] 03-05-2025 11:39-0400 SaO2% (BldA) [Mass fraction] 96 % Dr. Marion Feng MD Work Phone: [facility] [facility] 03-05-2025 11:39-0400 Systolic blood pressure 103 mm[Hg] Dr. Marion Feng MD Work Phone: [facility] 03-05-2025 11:20-0400 Body height 175.[address] Marion Feng MD Work Phone: [facility] 03-05-2025 11:20-0400 Body weight 81.[address] Marion Feng MD Work Phone: [facility] 03-04-2025 20:00-0400 SaO2% (BldA) [Mass fraction] 95 % Dr. Marion Feng MD Work Phone: [facility] 03-04-2025 19:30-0400 Diastolic blood pressure 55 mm[Hg] Dr. Marion Feng MD Work Phone: [facility] 03-04-2025 19:30-0400 Systolic blood pressure 111 mm[Hg] Dr. Marion Feng MD Work Phone: [facility] 03-04-2025 19:21-0400 Body mass index (BMI) [Ratio] 26.6 kg/m2 Dr. Marion Feng MD Work Phone: [facility] 03-04-2025 19:00-0400 Heart rate 60 /min Dr. Marion Feng MD Work Phone: [facility] 03-04-2025 19:00-0400 Respiratory rate 16 /min Dr. Marion Feng MD Work Phone: [facility] 03-04-2025 18:00-0400 Body temperature 98.9 [degF] Dr. Marion Feng MD Work Phone: [facility] 03-04-2025 14:01-0400 Body height 177.[address] Marion Feng MD Work Phone: [facility] 03-04-2025 14:01-0400 Body mass index (BMI) [Ratio] 26.3 kg/m2 Dr. Marion Feng MD Work Phone: [facility] 03-04-2025 14:01-0400 Body weight 83.[address] Marion Feng MD Work Phone: [facility] 03-04-2025 08:10-0400 Body height 177.[address] Marion Feng MD Work Phone: [facility] 03-04-2025 08:10-0400 Body mass index (BMI) [Ratio] 26.3 kg/m2 Dr. Marion Feng MD Work Phone: [facility] 03-04-2025 08:10-0400 Body temperature 98.3 [degF] Dr. Marion Feng MD Work Phone: [facility] 03-04-2025 08:10-0400 Body weight 83.[address] Marion Feng MD Work Phone: [facility] 03-04-2025 08:10-0400 Diastolic blood pressure 62 mm[Hg] Dr. Marion Feng MD Work Phone: [facility] 03-04-2025 08:10-0400 Heart rate 66 /min Dr. Marion Feng MD Work Phone: [facility] 03-04-2025 08:10-0400 SaO2% (BldA) [Mass fraction] 97 % Dr. Marion Feng MD Work Phone: [facility] 03-04-2025 08:10-0400 Systolic blood pressure 128 mm[Hg] Dr. Marion Feng MD Work Phone: [facility] 01-27-2025 10:09-0400 Body height 175.3 cm Eli Bazzi CNP Work Phone: [facility] 01-27-2025 10:09-0400 Body mass index (BMI) [Ratio] 27.02 kg/m2 Eli Bazzi CNP Work Phone: [facility] 01-27-2025 10:09-0400 Body weight 83.01 kg Eli Manuel APRN - CAMP ADVISOR Work Phone: [facility] 01-27-2025 10:09-0400 Diastolic blood pressure 90 mm[Hg] Eli Bazzi CNP Work Phone: [facility] 01-27-2025 10:09-0400 Heart rate 48 /min Eli Manuel APRN - CAMP ADVISOR Work Phone: [facility] 01-27-2025 10:09-0400 Systolic blood pressure 134 mm[Hg] Eli Manuel APRN - CAMP ADVISOR Work Phone: [facility] 01-14-2025 07:35-0400 Body temperature 97.3 [degF] Sarah Luna DO Work Phone: [facility] 01-14-2025 07:35-0400 Diastolic blood pressure 60 mm[Hg] Sarah Luna DO Work Phone: [facility] 01-14-2025 07:35-0400 Heart rate 57 /min Sarah Luna DO Work Phone: [facility] 01-14-2025 07:35-0400 Respiratory rate 17 /min Sarah Lnua DO Work Phone: [facility] 01-14-2025 07:35-0400 SaO2% (BldA) [Mass fraction] 97 % Sarah Christyer DO Work Phone: [facility] 01-14-2025 07:35-0400 Systolic blood pressure 119 mm[Hg] Sarah Christyer DO Work Phone: [facility] 01-11-2025 05:39-0400 Body mass index (BMI) [Ratio] 28.98 kg/m2 Sarah Christyer DO Work Phone: [facility] 01-11-2025 05:39-0400 Body weight 89 kg Sarah Luna DO Work Phone: [facility] 12-23-2024 10:50-0400 Body weight 83.46 kg Sarah Luna DO Work Phone: [facility] 12-23-2024 10:50-0400 Diastolic blood pressure 70 mm[Hg] Sarah Christyer DO Work Phone: [facility] 12-23-2024 10:50-0400 Heart rate 47 /min Sarah Christyer DO Work Phone: [facility] 12-23-2024 10:50-0400 Systolic blood pressure 130 mm[Hg] Sarah Luna DO Work Phone: [facility] 12-10-2024 07:56-0400 Body height 177.[address] Marion Feng MD Work Phone: [facility] 12-10-2024 07:56-0400 Body mass index (BMI) [Ratio] 27.1 kg/m2 Dr. Marion Feng MD Work Phone: [facility] 12-10-2024 07:56-0400 Body temperature 97.4 [degF] Dr. Marion Feng MD Work Phone: [facility] 12-10-2024 07:56-0400 Body weight 85.[address] Marion Feng MD Work Phone: [facility] 12-10-2024 07:56-0400 Diastolic blood pressure 73 mm[Hg] Dr. Marion Feng MD Work Phone: [facility] 12-10-2024 07:56-0400 Heart rate 45 /min Dr. Marion Feng MD Work Phone: [facility] 12-10-2024 07:56-0400 Respiratory rate 18 /min Dr. Marion Feng MD Work Phone: [facility] 12-10-2024 07:56-0400 SaO2% (BldA) [Mass fraction] 97 % Dr. Marion Feng MD Work Phone: [facility] 12-10-2024 07:56-0400 Systolic blood pressure 120 mm[Hg] Dr. Marion Feng MD Work Phone: [facility] 12-02-2024 07:27-0400 Body mass index (BMI) [Ratio] 26.6 kg/m2 Dr. Marion Feng MD Work Phone: [facility] 12-02-2024 07:27-0400 Body temperature 97.5 [degF] Dr. Marion Feng MD Work Phone: [facility] 12-02-2024 07:27-0400 Body weight 84.[address] Marion Feng MD Work Phone: [facility] 12-02-2024 07:27-0400 Diastolic blood pressure 82 mm[Hg] Dr. Marion Feng MD Work Phone: [facility] 12-02-2024 07:27-0400 Heart rate 52 /min Dr. Marion Feng MD Work Phone: [facility] 12-02-2024 07:27-0400 Respiratory rate 18 /min Dr. Marion Feng MD Work Phone: [facility] 12-02-2024 07:27-0400 SaO2% (BldA) [Mass fraction] 99 % Dr. Marion Feng MD Work Phone: [facility] 12-02-2024 07:27-0400 Systolic blood pressure 144 mm[Hg] Dr. Marion Feng MD Work Phone: [facility] 09-18-2024 03:58-0500 Body mass index (BMI) [Ratio] 29.7 kg/m2 Dr. Marion Feng MD Work Phone: [facility] 07-21-2024 04:18-0500 Body mass index (BMI) [Ratio] 29.7 kg/m2 Dr. Marion Feng MD Work Phone: [facility] 04-20-2024 03:45-0400 Body mass index (BMI) [Ratio] 29.7 kg/m2 Dr. Marion Feng MD Work Phone: [facility] 10-18-2023 22:13-0400 Body mass index (BMI) [Ratio] 29.7 kg/m2 [facility] 09-18-2023 22:32-0500 Body mass index (BMI) [Ratio] 29.7 kg/m2 [facility] 08-20-2023 22:00-0500 Body mass index (BMI) [Ratio] 29.7 kg/m2 Dr. Marion Feng Work Phone: [facility] 06-20-2023 03:31-0500 Body mass index (BMI) [Ratio] 29.7 kg/m2 Dr. Marion Feng Work Phone: [facility] 06-09-2023 08:01-0500 Body height 177.[address] Marion Feng Work Phone: [facility] 06-09-2023 08:01-0500 Body mass index (BMI) [Ratio] 29.5 kg/m2 Dr. Marion Feng Work Phone: [facility] 06-09-2023 08:01-0500 Body temperature 98.1 [degF] Dr. Marion Feng Work Phone: [facility] 06-09-2023 08:01-0500 Body weight 93.[address] Marion Feng Work Phone: [facility] 06-09-2023 08:01-0500 Diastolic blood pressure 73 mm[Hg] Dr. Marion Feng Work Phone: [facility] 06-09-2023 08:01-0500 Heart rate 61 /min Dr. Marion Feng Work Phone: [facility] 06-09-2023 08:01-0500 Respiratory rate 16 /min Dr. Marion Fegn Work Phone: [facility] 06-09-2023 08:01-0500 SaO2% (BldA) [Mass fraction] 97 % Dr. Marion Feng Work Phone: [facility] 06-09-2023 08:01-0500 Systolic blood pressure 114 mm[Hg] Dr. Marion Feng Work Phone: [facility] 05-05-2023 07:54-0400 Body height 177.8 cm Aylin Mathew MD Work Phone: [facility] 05-05-2023 07:54-0400 Body weight 90.72 kg Aylin Mathew MD Work Phone: [facility] 05-05-2023 07:54-0400 Diastolic blood pressure 66 mm[Hg] Aylin Mathew MD Work Phone: [facility] 05-05-2023 07:54-0400 Heart rate 52 /min Aylin Mathew MD Work Phone: [facility] 05-05-2023 07:54-0400 SaO2% (BldA) [Mass fraction] 98 % Aylin Mathew MD Work Phone: [facility] 05-05-2023 07:54-0400 Systolic blood pressure 115 mm[Hg] Aylin Mathew MD Work Phone: [facility] 04-20-2023 02:04-0400 Body mass index (BMI) [Ratio] 29.7 kg/m2 Dr. Marion Feng Work Phone: [facility] 04-03-2023 10:02-0400 Body height 177.[address] Marion Feng Work Phone: [facility] 04-03-2023 10:02-0400 Body mass index (BMI) [Ratio] 28.7 kg/m2 Dr. Marion Feng Work Phone: [facility] 04-03-2023 10:02-0400 Body weight 90.[address] Marion Feng Work Phone: [facility] 04-03-2023 10:02-0400 Diastolic blood pressure 70 mm[Hg] Dr. Marion Feng Work Phone: [facility] 04-03-2023 10:02-0400 Heart rate 50 /min Dr. Marion Feng Work Phone: [facility] 04-03-2023 10:02-0400 Respiratory rate 16 /min Dr. Marion Feng Work Phone: [facility] 04-03-2023 10:02-0400 Systolic blood pressure 120 mm[Hg] Dr. Marion Feng Work Phone: [facility] 02-18-2023 00:32-0400 Body mass index (BMI) [Ratio] 29.7 kg/m2 Dr. Marion Fneg Work Phone: [facility] 01-27-2023 08:37-0400 Body weight 91.17 kg Nikita Ortiz APRN.CAMP ADVISOR Work Phone: [facility] 01-27-2023 08:37-0400 Diastolic blood pressure 64 mm[Hg] Nikita Ortiz APRN.CAMP ADVISOR Work Phone: [facility] 01-27-2023 08:37-0400 Heart rate 55 /min Nikita Ortiz APRN.CAMP ADVISOR Work Phone: [facility] 01-27-2023 08:37-0400 SaO2% (BldA) [Mass fraction] 96 % Nikita Ortiz APRN.CAMP ADVISOR Work Phone: [facility] 01-27-2023 08:37-0400 Systolic blood pressure 116 mm[Hg] Nikita Ortiz APRN.CAMP ADVISOR Work Phone: [facility] 01-17-2023 21:59-0400 Body mass index (BMI) [Ratio] 29.7 kg/m2 Dr. Marion Feng Work Phone: [facility] 01-16-2023 06:13-0400 Body height 177.[address] Marion Feng Work Phone: [facility] 01-16-2023 06:13-0400 Body mass index (BMI) [Ratio] 29.2 kg/m2 Dr. Marion Feng Work Phone: [facility] 01-16-2023 06:13-0400 Body temperature 98.4 [degF] Dr. Marion Feng Work Phone: [facility] 01-16-2023 06:13-0400 Body weight 92.[address] Marion Feng Work Phone: [facility] 01-16-2023 06:13-0400 Diastolic blood pressure 66 mm[Hg] Dr. Marion Feng Work Phone: [facility] 01-16-2023 06:13-0400 Heart rate 54 /min Dr. Marion Feng Work Phone: [facility] 01-16-2023 06:13-0400 Respiratory rate 18 /min Dr. Marion Feng Work Phone: [facility] 01-16-2023 06:13-0400 SaO2% (BldA) [Mass fraction] 97 % Dr. Marion Feng Work Phone: [facility] 01-16-2023 06:13-0400 Systolic blood pressure 120 mm[Hg] Dr. Marion Feng Work Phone: [facility] 2022 08:45-0400 Body mass index (BMI) [Ratio] 29.7 kg/m2 Dr. Marino Feng Work Phone: [facility] 12-02-2022 08:04-0400 Body height 177.[address] Marion Feng Work Phone: [facility] 12-02-2022 08:04-0400 Body mass index (BMI) [Ratio] 30 kg/m2 Dr. Marion Feng Work Phone: [facility] 12-02-2022 08:04-0400 Body temperature 98.2 [degF] Dr. Marion Feng Work Phone: [facility] 12-02-2022 08:04-0400 Body weight 94.[address] Marion Feng Work Phone: [facility] 12-02-2022 08:04-0400 Diastolic blood pressure 65 mm[Hg] Dr. Marion Feng Work Phone: [facility] 12-02-2022 08:04-0400 Heart rate 51 /min Dr. Marion Feng Work Phone: [facility] 12-02-2022 08:04-0400 Respiratory rate 18 /min Dr. Marion Feng Work Phone: [facility] 12-02-2022 08:04-0400 SaO2% (BldA) [Mass fraction] 96 % Dr. Marion Feng Work Phone: [facility] 12-02-2022 08:04-0400 Systolic blood pressure 120 mm[Hg] Dr. Marion Feng Work Phone: [facility] 10-19-2022 00:11-0400 Body mass index (BMI) [Ratio] 29.7 kg/m2 Dr. Marion Feng Work Phone: [facility] 10-03-2022 09:06-0400 Body height 177.[address] Marion Feng Work Phone: [facility] 10-03-2022 09:06-0400 Body mass index (BMI) [Ratio] 30.7 kg/m2 Dr. Marion Feng Work Phone: [facility] 10-03-2022 09:06-0400 Body weight 97.[address] Marion eFng Work Phone: [facility] 10-03-2022 09:06-0400 Diastolic blood pressure 66 mm[Hg] Dr. Marion Feng Work Phone: [facility] 10-03-2022 09:06-0400 Heart rate 52 /min Dr. Marion Feng Work Phone: [facility] 10-03-2022 09:06-0400 Respiratory rate 18 /min Dr. Marion Feng Work Phone: [facility] 10-03-2022 09:06-0400 SaO2% (BldA) [Mass fraction] 93 % Dr. Marion Feng Work Phone: [facility] 10-03-2022 09:06-0400 Systolic blood pressure 120 mm[Hg] Dr. Marion Feng Work Phone: [facility] 09-17-2022 20:02-0500 Body mass index (BMI) [Ratio] 29.7 kg/m2 Dr. Marion Feng Work Phone: [facility] 08-21-2022 08:11-0500 Body mass index (BMI) [Ratio] 29.7 kg/m2 Dr. Marion Feng Work Phone: [facility] 07-21-2022 02:05-0500 Body mass index (BMI) [Ratio] 29.7 kg/m2 Dr. Marion Feng Work Phone: [facility] 07-17-2022 06:52-0500 Body height 177.[address] Marion Feng Work Phone: [facility] 07-17-2022 06:52-0500 Body mass index (BMI) [Ratio] 31.1 kg/m2 Dr. Marion Feng Work Phone: [facility] 07-17-2022 06:52-0500 Body temperature 95.6 [degF] Dr. Marion Feng Work Phone: [facility] 07-17-2022 06:52-0500 Body weight 98.[address] Marion Feng Work Phone: [facility] 07-17-2022 06:52-0500 Diastolic blood pressure 62 mm[Hg] Dr. Marion Feng Work Phone: [facility] 07-17-2022 06:52-0500 Heart rate 81 /min Dr. Marion Feng Work Phone: [facility] 07-17-2022 06:52-0500 Respiratory rate 18 /min Dr. Marion Feng Work Phone: [facility] 07-17-2022 06:52-0500 SaO2% (BldA) [Mass fraction] 95 % Dr. Marion Feng Work Phone: [facility] 07-17-2022 06:52-0500 Systolic blood pressure 103 mm[Hg] Dr. Marion Feng Work Phone: [facility] 06-28-2022 09:37-0500 Body mass index (BMI) [Ratio] 31.2 kg/m2 Dr. Marion Feng Work Phone: [facility] 06-28-2022 09:37-0500 Body weight 98.[address] Marion Feng Work Phone: [facility] 06-28-2022 09:37-0500 Diastolic blood pressure 84 mm[Hg] Dr. Marion Feng Work Phone: [facility] 06-28-2022 09:37-0500 Heart rate 74 /min Dr. Marion Feng Work Phone: [facility] 06-28-2022 09:37-0500 Respiratory rate 18 /min Dr. Marion Feng Work Phone: [facility] 06-28-2022 09:37-0500 SaO2% (BldA) [Mass fraction] 98 % Dr. Marion Feng Work Phone: [facility] 06-28-2022 09:37-0500 Systolic blood pressure 131 mm[Hg] Dr. Marion Feng Work Phone: [facility] 06-19-2022 23:04-0500 Body mass index (BMI) [Ratio] 29.7 kg/m2 Dr. Marion Feng Work Phone: [facility] 06-12-2022 08:02-0500 Body temperature 98.1 [degF] Dr. Marion Feng Work Phone: [facility] 06-12-2022 08:02-0500 Body weight 99.[address] Marion Feng Work Phone: [facility] 06-12-2022 08:02-0500 Diastolic blood pressure 75 mm[Hg] Dr. Marion Feng Work Phone: [facility] 06-12-2022 08:02-0500 Heart rate 67 /min Dr. Marion Feng Work Phone: [facility] 06-12-2022 08:02-0500 Respiratory rate 16 /min Dr. Marion Feng Work Phone: [facility] 06-12-2022 08:02-0500 SaO2% (BldA) [Mass fraction] 97 % Dr. Marion Feng Work Phone: [facility] 06-12-2022 08:02-0500 Systolic blood pressure 131 mm[Hg] Dr. Marion Feng Work Phone: [facility] 06-04-2022 10:58-0500 Body height 177.[address] Marion Feng Work Phone: [facility] Work Phone: 06-04-2022 10:58-0500 Body weight 95.[address] Marion Feng Work Phone: [facility] 06-03-2022 08:48-0500 Body mass index (BMI) [Ratio] 31.1 kg/m2 Dr. Marion Feng Work Phone: [facility] 05-21-2022 09:50-0400 Body mass index (BMI) [Ratio] 29.7 kg/m2 Dr. Marion Feng Work Phone: [facility] 05-15-2022 14:30-0400 Body height 177.8 cm Aylin Mathew MD Work Phone: [facility] 05-15-2022 14:30-0400 Body weight 95.25 kg Aylin Mathew MD Work Phone: [facility] 05-15-2022 14:30-0400 Diastolic blood pressure 64 mm[Hg] Aylin Mathew MD Work Phone: [facility] 05-15-2022 14:30-0400 Heart rate 60 /min Aylin Mathew MD Work Phone: [facility] 05-15-2022 14:30-0400 Respiratory rate 18 /min Aylin Mathew MD Work Phone: [facility] 05-15-2022 14:30-0400 SaO2% (BldA) [Mass fraction] 96 % Aylin Mathew MD Work Phone: [facility] 05-15-2022 14:30-0400 Systolic blood pressure 108 mm[Hg] Aylin Mathew MD Work Phone: [facility] 04-19-2022 21:21-0400 Body mass index (BMI) [Ratio] 29.7 kg/m2 Dr. Marion Feng Work Phone: [facility] Work Phone: 04-04-2022 11:13-0400 Body height 177.[address] Marion Feng Work Phone: [facility] Work Phone: 04-04-2022 11:13-0400 Body weight 95.[address] Marion Feng Work Phone: [facility] Work Phone: 04-03-2022 07:38-0400 Body mass index (BMI) [Ratio] 30.2 kg/m2 Dr. Marion Feng Work Phone: [facility] Work Phone: 03-29-2022 09:51-0400 Body mass index (BMI) [Ratio] 30.2 kg/m2 Dr. Marion Feng Work Phone: [facility] Work Phone: 03-29-2022 09:51-0400 Body weight 95.[address] Marion Feng Work Phone: [facility] Work Phone: 03-29-2022 09:51-0400 Diastolic blood pressure 69 mm[Hg] Dr. Marion Feng Work Phone: [facility] Work Phone: 03-29-2022 09:51-0400 Heart rate 51 /min Dr. Marion Feng Work Phone: [facility] Work Phone: 03-29-2022 09:51-0400 Respiratory rate 18 /min Dr. Marion Feng Work Phone: [facility] Work Phone: 03-29-2022 09:51-0400 Systolic blood pressure 107 mm[Hg] Dr. Marion Feng Work Phone: [facility] Work Phone: 03-20-2022 22:52-0400 Body mass index (BMI) [Ratio] 29.7 kg/m2 Dr. Marion Feng Work Phone: [facility] Work Phone: 03-08-2022 13:42-0400 Body height 177.[address] Marion Feng Work Phone: [facility] Work Phone: 03-08-2022 13:42-0400 Body mass index (BMI) [Ratio] 30.8 kg/m2 Dr. Marion Feng Work Phone: [facility] Work Phone: 03-08-2022 13:42-0400 Body weight 97.[address] Marion Feng Work Phone: [facility] Work Phone: 03-08-2022 13:42-0400 Diastolic blood pressure 62 mm[Hg] Dr. Marion Feng Work Phone: [facility] Work Phone: 03-08-2022 13:42-0400 Heart rate 82 /min Dr. Marion Feng Work Phone: [facility] Work Phone: 03-08-2022 13:42-0400 Respiratory rate 16 /min Dr. Marion Feng Work Phone: [facility] Work Phone: 03-08-2022 13:42-0400 Systolic blood pressure 111 mm[Hg] Dr. Marion Feng Work Phone: [facility] Work Phone: 01-18-2022 06:55-0400 Body mass index (BMI) [Ratio] 29.7 kg/m2 Dr. Marion Feng Work Phone: [facility] Work Phone: 01-16-2022 05:47-0400 Body height 177.[address] Marion Feng Work Phone: [facility] Work Phone: 01-16-2022 05:47-0400 Body mass index (BMI) [Ratio] 30.8 kg/m2 Dr. Marion Feng Work Phone: [facility] Work Phone: 01-16-2022 05:47-0400 Body temperature 98.2 [degF] Dr. Marion Feng Work Phone: [facility] Work Phone: 01-16-2022 05:47-0400 Body weight 97.[address] Marion Feng Work Phone: [facility] Work Phone: 01-16-2022 05:47-0400 Diastolic blood pressure 87 mm[Hg] Dr. Marion Feng Work Phone: [facility] Work Phone: 01-16-2022 05:47-0400 Heart rate 98 /min Dr. Marion Feng Work Phone: [facility] Work Phone: 01-16-2022 05:47-0400 Respiratory rate 17 /min Dr. Marion Feng Work Phone: [facility] Work Phone: 01-16-2022 05:47-0400 SaO2% (BldA) [Mass fraction] 97 % Dr. Marion Feng Work Phone: [facility] Work Phone: 01-16-2022 05:47-0400 Systolic blood pressure 116 mm[Hg] Dr. Marion Feng Work Phone: [facility] Work Phone: 12-18-2021 20:37-0400 Body mass index (BMI) [Ratio] 29.7 kg/m2 Dr. Marion Feng Work Phone: [facility] Work Phone: 11-28-2021 08:04-0400 Body mass index (BMI) [Ratio] 30.9 kg/m2 Dr. Marion Feng Work Phone: [facility] Work Phone: 11-28-2021 08:04-0400 Body temperature 97.2 [degF] Dr. Marion Feng Work Phone: [facility] Work Phone: 11-28-2021 08:04-0400 Body weight 97.[address] Marion Feng Work Phone: [facility] Work Phone: 11-28-2021 08:04-0400 Diastolic blood pressure 60 mm[Hg] Dr. Marion Feng Work Phone: [facility] Work Phone: 11-28-2021 08:04-0400 Heart rate 51 /min Dr. Marion Feng Work Phone: [facility] Work Phone: 11-28-2021 08:04-0400 Respiratory rate 16 /min Dr. Marion Feng Work Phone: [facility] Work Phone: 11-28-2021 08:04-0400 SaO2% (BldA) [Mass fraction] 99 % Dr. Marion Feng Work Phone: [facility] Work Phone: 11-28-2021 08:04-0400 Systolic blood pressure 110 mm[Hg] Dr. Marion Feng Work Phone: [facility] Work Phone: 11-28-2021 08:04-0400 Body height 177.[address] Marion Feng Work Phone: [facility] Work Phone: 11-28-2021 08:04-0400 Body mass index (BMI) [Ratio] 30.9 kg/m2 Dr. Marion Feng Work Phone: [facility] Work Phone: 11-28-2021 08:04-0400 Body temperature 97.2 [degF] Dr. Marion Feng Work Phone: [facility] Work Phone: 11-28-2021 08:04-0400 Body weight 97.[address] Marion Feng Work Phone: [facility] Work Phone: 11-28-2021 08:04-0400 Diastolic blood pressure 60 mm[Hg] Dr. Marion Feng Work Phone: [facility] Work Phone: 11-28-2021 08:04-0400 Heart rate 51 /min Dr. Marion Feng Work Phone: [facility] Work Phone: 11-28-2021 08:04-0400 Respiratory rate 16 /min Dr. Marion Feng Work Phone: [facility] Work Phone: 11-28-2021 08:04-0400 SaO2% (BldA) [Mass fraction] 99 % Dr. Marion Feng Work Phone: [facility] Work Phone: 11-28-2021 08:04-0400 Systolic blood pressure 110 mm[Hg] Dr. Marion Feng Work Phone: [facility] Work Phone: 11-18-2021 03:03-0400 Body mass index (BMI) [Ratio] 29.7 kg/m2 Dr. Marion Feng Work Phone: [facility] Work Phone: 10-01-2021 10:35-0400 Body mass index (BMI) [Ratio] 31.4 kg/m2 Dr. Marion Feng Work Phone: [facility] Work Phone: 10-01-2021 10:35-0400 Body temperature 98.6 [degF] Dr. Marion Feng Work Phone: [facility] Work Phone: 10-01-2021 10:35-0400 Body weight 99.[address] Marion Feng Work Phone: [facility] Work Phone: 10-01-2021 10:35-0400 Diastolic blood pressure 73 mm[Hg] Dr. Marion Feng Work Phone: [facility] Work Phone: 10-01-2021 10:35-0400 Heart rate 79 /min Dr. Marion Feng Work Phone: [facility] Work Phone: 10-01-2021 10:35-0400 Respiratory rate 17 /min Dr. Marion Feng Work Phone: [facility] Work Phone: 10-01-2021 10:35-0400 SaO2% (BldA) [Mass fraction] 98 % Dr. Marion Feng Work Phone: [facility] Work Phone: 10-01-2021 10:35-0400 Systolic blood pressure 110 mm[Hg] Dr. Marion Feng Work Phone: [facility] Work Phone: 10-01-2021 10:35-0400 Body height 177.[address] Marion Feng Work Phone: [facility] Work Phone: 10-01-2021 10:35-0400 Body mass index (BMI) [Ratio] 31.4 kg/m2 Dr. Marion Feng Work Phone: [facility] Work Phone: 10-01-2021 10:35-0400 Body temperature 98.6 [degF] Dr. Marion Feng Work Phone: [facility] Work Phone: 10-01-2021 10:35-0400 Body weight 99.[address] Marion Feng Work Phone: [facility] Work Phone: 10-01-2021 10:35-0400 Diastolic blood pressure 73 mm[Hg] Dr. Marion Feng Work Phone: [facility] Work Phone: 10-01-2021 10:35-0400 Heart rate 79 /min Dr. Marion Feng Work Phone: [facility] Work Phone: 10-01-2021 10:35-0400 Respiratory rate 17 /min Dr. Marion Feng Work Phone: [facility] Work Phone: 10-01-2021 10:35-0400 SaO2% (BldA) [Mass fraction] 98 % Dr. Marion Feng Work Phone: [facility] Work Phone: 10-01-2021 10:35-0400 Systolic blood pressure 110 mm[Hg] Dr. Marion Feng Work Phone: [facility] Work Phone: 09-18-2021 00:09-0500 Body mass index (BMI) [Ratio] 29.7 kg/m2 Dr. Marion Feng Work Phone: [facility] Work Phone: 09-17-2021 23:09-0500 Body mass index (BMI) [Ratio] 29.7 kg/m2 Dr. Marion Feng Work Phone: [facility] Work Phone: 09-07-2021 13:25-0500 Body weight 98.[address] Marion Feng Work Phone: [facility] Work Phone: 09-07-2021 13:25-0500 Diastolic blood pressure 61 mm[Hg] Dr. Marion Feng Work Phone: [facility] Work Phone: 09-07-2021 13:25-0500 Heart rate 48 /min Dr. Marion Feng Work Phone: [facility] Work Phone: 09-07-2021 13:25-0500 Respiratory rate 18 /min Dr. Marion Feng Work Phone: [facility] Work Phone: 09-07-2021 13:25-0500 Systolic blood pressure 98 mm[Hg] Dr. Marion Feng Work Phone: [facility] Work Phone: 07-20-2021 23:09-0500 Body mass index (BMI) [Ratio] 29.7 kg/m2 Dr. Marion Feng Work Phone: [facility] Work Phone: 01-16-2021 11:25-0400 Body mass index (BMI) [Ratio] 29.7 kg/m2 Dr. Marion Feng Work Phone: [facility] Work Phone: 08-30-2020 08:55-0500 Body mass index (BMI) [Ratio] 29.8 kg/m2 Dr. Marion Feng Work Phone: [facility] Work Phone: NEGATED: Highlighted [id number] 12:35-0500 BMI (Body Mass Index) 30.52 kg/m2 Keturah Degarmo RT [facility] Work Phone: NEGATED: Highlighted [id number] 12:35-0500 Body weight 90.72 kg Keturah Degarmo RT [facility] Work Phone: NEGATED: Highlighted [id number] 12:35-0500 Body weight 91 kg Keturah Degarmo RT [facility] Work Phone: NEGATED: Highlighted [id number] 12:35-0500 Height 172.72 cm Keturah Degarmo RT [facility] Work Phone: NEGATED: Highlighted [id number] 12:35-0500 Height 173 cm Keturah Almanzar RT [facility] Work Phone: Encounters Encounter Date Encounter Type Care Provider Facility Start: 05-21-2025 ambulatory Kassy PHILLIP Facility:[facility] Start: 04-28-2025 End: 04-28-2025 ambulatory Marion Feng Facility:[facility] Start: 03-11-2025 End: 03-11-2025 Patient encounter procedure Kylie Motta MANAGER CASH-C -[facility] Work Phone: Start: 03-11-2025 End: 03-11-[address] Marion Feng MD Work Phone: -[facility] Start: 03-05-2025 Non-patient / Non-visit Dr. Richard Sesay MD -[facility] Work Phone: Start: 03-04-2025 ambulatory [...] visit related to original px Eli Richardsoner BREASTER - CAMP ADVISOR Work Phone: [facility] Cardiovascular Thoracic [facility] - [place] Comment on above: Lung nodule (Primary Dx) Start: 01-27-2025 End: 01-27-2025 ambulatory ELI MANUEL [facility] Start: 01-17-2025 End: 01-17-[address] [facility] Feng MD Work Phone: -Laboratory Start: 01-17-2025 End: 01-17-2025 Discharged Recurring Kassy M Stack PA -Laboratory Work Phone: Start: 01-10-2025 End: 01-14-2025 Evaluation and management of inpatient Sarah Luna Work Phone: [facility] Surgical Progressive Care Unit PCU H6 Comment on above: S/P thoracotomy (Mignon dianne Dx); Lung nodule; Solitary pulmonary nodule Start: 12-30-2024 ambulatory Marion Feng Facility :[facility] Start: 12-29-2024 End: 12-29-2024 ambulatory SARAH Start: 12-29-2024 End: 12-29-2024 Encounter for other preprocedural examination SARAH Start: 12-24-2024 End: 12-24-2024 Admission to same day surgery center Dong Adam APRN - CAMP ADVISOR Work Phone: [facility] Thoracic [facility] [place] Comment on above: Lung nodule (Primary Dx) Start: 12-24-2024 End: 12-24-2024 ambulatory Dong Adam APRN - CAMP ADVISOR Work Phone: [facility] Thoracic Surgery - [place] Start: 12-24-2024 End: 12-24-2024 Telephone encounter Sarah Luna DO Work Phone: [facility] Surgery - [place] Comment on above: Surgery Scheduling Start: 12-23-2024 End: 12-23-2024 Office consultation new/estab patient 60 min Sarah Luna DO Work Phone: [facility] [place] Comment on above: Right upper lobe pul monary nodule (Primary Dx); Chronic obstructive pulmonary disease, unspecified COPD type (HCC); Paroxysmal atrial fibrillation (HCC); 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); Warfarin anticoagulation; Former smoker Start: 12-23-2024 End: 12-23-2024 ambulatory [facility] Start: 12-10-2024 End: 12-10-2024 Patient encounter procedure Kylie PEREZ -[facility] Work Phone: Start: 12-10-2024 End: 12-10-2024 ambulatory Marion Feng Facility:[facility] Start: 12-07-2024 End: 12-07-[address] [facility] Feng MD Work Phone: [facility] Work Phone: Start: 12-07-2024 End: 12-07-2024 Patient encounter procedure Kylie Motta NP-C -[facility] Start: 12-07-2024 End: 12-07-2024 ambulatory Marion Feng Facility:[facility] Start: 12-02-2024 End: 12-02-2024 Patient encounter procedure Kylie Motta NP-C -[facility] Work Phone: Start: 12-02-2024 End: 12-02-[address] [facility] Feng MD Work Phone: [facility] Work Phone: Start: 11-18-2024 ambulatory Hi H Roof MANAGER CASH Facility :[facility] Start: 11-17-2024 End: 11-17-2024 ambulatory Hi H Roof MANAGER CASH Facility:[facility] Start: 11-17-2024 End: 11-17-[address] Jose Hylton MD -Laboratory Work Phone: Start: 11-17-2024 End: 11-17-2024 Patient encounter procedure Kylie Motta NP-C -Cat Scan [facility] Work Phone: Start: 11-17-2024 End: 11-17-2024 ambulatory Marion Feng Facility:[facility] Start: 10-19-[address] Jose Hylton MD -Laboratory Work Phone: Start: 10-19-2024 End: 10-19-[address] [facility] Feng MD Work Phone: [facility] Work Phone: Start: 10-19-2024 End: 10-19-2024 Patient encounter procedure Kylie Motta NP-C -Pulmonary Services/Neurology Work Phone: Start: 10-19-2024 End: 10-19-2024 ambulatory Marion Feng Facility:[facility] Start: 09-02-2024 End: 09-17-[address] Jose Hylton MD -Laboratory Work Phone: Start: 09-02-2024 End: 09-17-2024 ambulatory Hi Traore Kiki MANAGER CASH Facility:[facility] Start: 07-15-2024 End: 07-15-[address] Jose Hylton MD -Laboratory Work Phone: Start: 07-15-2024 End: 07-15-2024 ambulatory Hi Roof MANAGER CASH Facility:[facility] Start: 11-17-2023 End: 11-18-2023 Discharged Recurring [facility]-Laboratory Work Phone: Start: 11-17-2023 End: 11-18-2023 ambulatory [facility] Work Phone: Start: 11-17-2023 End: 11-17-2023 Patient encounter procedure [facility]-Cat Scan, [facility] Work Phone: Start: 10-03-2023 End: 10-18-2023 ambulatory [facility] Work Phone: Start: 10-03-2023 End: 10-18-2023 Discharged Recurring [facility]-Laboratory Work Phone: Start: 08-25-2023 End: 09-18-[address] Marion Feng Work Phone: [facility] Work Phone: Start: 08-25-2023 End: 09-18-[address] Marion Feng Work Phone: [facility]-Laboratory Work Phone: Start: 07-22-2023 End: 07-22-[address] Marion Feng Work Phone: [facility] Work Phone: Start: 07-22-2023 End: 07-22-[address] [facility] Start: 06-09-2023 End: 06-09-[address] Marion Feng Work Phone: [facility] [place] Work Phone: Start: 05-23-2023 End: 06-19-[address] [facility] Start: 05-05-2023 End: 05-05-2023 ambulatory AYLIN MATHEW Facility[facility] Start: 05-05-2023 End: 05-05-2023 Patient encounter procedure Aylin Mathew MD Work Phone: [facility] Cardiology [place] Comment on above: Persistent atrial fi brillation (HCC) (Primary Dx) Start: 04-03-2023 End: 04-03-[address] Marion Feng Work Phone: [facility] Work Phone: Start: 04-02-2023 End: 04-02-[address] Marion Feng Work Phone: [facility] Work Phone: Start: 04-02-2023 End: 04-02-[address] [facility] Start: 02-06-2023 End: 02-17-[address] [facility] Start: 01-27-2023 End: 01-27-2023 ambulatory NIKITA ORTIZ Facility:[facility] Start: 01-27-2023 End: 01-27-2023 Patient encounter procedure Nikita Ortiz APRNPRETTY Work Phone: [facility] Cardiology [place] Comment on above: Persistent atrial fi brillation (HCC) (Primary Dx); Status post catheter ablation of atrial fibrillation; Sinus bradycardia; Obesity, Class I, BMI 30-34.9; At risk for stroke Start: 01-16-2023 End: 01-16-[address] Marion Feng Work Phone: [facility] Work Phone: Start: 01-16-2023 End: 01-16-[address] Marion Feng Work Phone: [facility]-Laboratory Work Phone: Start: 01-16-2023 End: 01-16-[address] Marion Feng Work Phone: [facility]-Pulmonary Medicine [facility] Work Phone: Start: 12-02-2022 End: 12-18-[address] Marion Feng Work Phone: [facility] Work Phone: Start: 12-02-2022 End: 12-18-[address] Marion Feng Work Phone: [facility]-Laboratory Start: 12-02-2022 End: 12-02-[address] Marion Feng Work Phone: [facility] Start: 11-20-2022 Telephone encounter Aylin Mathew MD Work Phone: [facility] Cardiology [place] Comment on above: Patient Update Start: 11-19-2022 Telephone encounter Aylin Mathew MD Work Phone: [facility] Cardiology [place] Comment on above: Results; Care Coordi nator - Other Start: 11-07-2022 Telephone encounter Aylin Mathew MD Work Phone: [facility] Cardiology Comment on above: Results Start: 11-05-2022 End: 11-05-2022 ambulatory NIKITA ORTIZ Facility:[facility] Start: 11-05-2022 ambulatory AYLIN MATHEW Facility :[facility] Start: 11-05-2022 End: 11-05-2022 Subsequent hospital visit by physician Ekg/Holter/Event Monitor [facility] CARDIAC TESTING Comment on above: Persistent atrial fi brillation (HCC) [I48.19] Start: 10-15-2022 Non-patient / Non-visit Dr. Alanis Feng Work Phone: [facility] Start: 10-14-2022 End: 10-14-[address] [facility] Feng Work Phone: [facility] Work Phone: Start: 10-14-2022 End: 10-14-[address] Marion Feng Work Phone: [facility] Start: 10-03-2022 End: 10-03-[address] Marion Feng Work Phone: [facility] Start: 10-03-2022 End: 10-18-[address] Marion Feng Work Phone: [facility] Work Phone: Start: 10-03-2022 End: 10-18-[address] Marion Feng Work Phone: [facility]-Laboratory Start: 10-03-[address] Marion Feng Work Phone: [facility]-Laboratory Start: 09-13-2022 End: 09-13-[address] Marion Feng Work Phone: [facility] Work Phone: Start: 09-13-2022 End: 09-13-[address] Marion Feng Work Phone: [facility]-Laboratory Start: 08-05-2022 End: 08-06-2022 ambulatory AYLIN MATHEW Facility:[facility] Start: 07-30-2022 End: 07-30-[address] Marion Feng Work Phone: [facility]-Laboratory Start: 07-17-2022 End: 07-17-[address] Marion Feng Work Phone: [facility]-Pulmonary Medicine [facility] Start: 07-16-2022 End: 07-16-[address] Marion Feng Work Phone: [facility]-Laboratory Start: 07-08-2022 Telephone encounter Aylin Mathew MD Work Phone: [facility] Cardiology [place] Comment on above: Preparations For Pro cedures Start: 06-28-2022 End: 06-28-[address] 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 Marion Feng Work Phone: [facility] Start: 06-11-2022 End: 06-11-[address] Marion Feng Work Phone: [facility] Start: 06-11-2022 End: 06-19-[address] Marion Feng Work Phone: [facility]-Laboratory Start: 06-04-2022 Non-patient / Non-visit Dr. Alanis Feng Work Phone: [facility] Start: 06-04-2022 End: 06-04-2022 Admission to same day surgery center Dr. Marion Feng Work Phone: [facility]-Coordinator Of Rehabilitation Services/Special Procedures Start: 06-04-2022 End: 06-04-[address] Marion Feng Work Phone: [facility] Work Phone: Start: 06-03-2022 Non-patient / Non-visit Dr. Alanis Feng Work Phone: [facility] Start: 05-30-[address] Marion Feng Work Phone: [facility]-Laboratory Start: 05-15-2022 End: 05-15-2022 ambulatory AYLIN MATHEW Facility:[facility] Start: 05-15-2022 End: 05-15-2022 Patient encounter procedure Aylin Mathew MD Work Phone: [facility] Cardiology [place] Comment on above: Persistent atrial fi brillation (HCC) (Primary Dx) Start: 05-15-2022 End: 05-15-[address] Marion Feng Work Phone: [facility] Work Phone: Start: 05-15-2022 End: 05-15-[address] Marion Feng Work Phone: [facility]-Laboratory Start: 04-11-2022 End: 04-11-[address] Marion Feng Work Phone: [facility] Work Phone: Start: 04-11-2022 End: 04-11-[address] Marion Feng Work Phone: [facility]-Laboratory Start: 04-11-2022 End: 04-11-[address] Marion Feng Work Phone: [facility] Start: 04-04-2022 Non-patient / Non-visit Dr. Alanis Feng Work Phone: [facility] Start: 04-04-[address] Marion Feng Work Phone: [facility]-Laboratory Start: 04-04-2022 End: 04-04-2022 Admission to same day surgery center Dr. Marion Feng Work Phone: [facility]-Coordinator Of Rehabilitation Services/Special Procedures Start: 04-04-2022 End: 04-04-[address] Marion Feng Work Phone: [facility] Work Phone: Start: 03-29-2022 End: 03-29-[address] Marion Feng Work Phone: [facility] Start: 03-15-2022 End: 03-15-[address] Marion Feng Work Phone: [facility] Work Phone: Start: 03-15-2022 End: 03-15-[address] Marion Feng Work Phone: [facility]-Laboratory Start: 03-08-2022 End: 03-08-[address] Marion Feng Work Phone: [facility] Start: 01-18-2022 ambulatory [facility] Start: 01-16-2022 End: 01-16-[address] Marion Feng Work Phone: [facility]-Pulmonary Medicine [facility] Start: 12-26-2021 End: 12-26-[address] Marion Feng Work Phone: [facility]-Laboratory Start: 12-26-[address] Marion Feng Work Phone: [facility]-Laboratory Start: 12-26-2021 End: 12-26-[address] Marion Feng Work Phone: [facility] Start: 11-28-2021 End: 11-28-[address] Marion Feng Work Phone: [facility] Internal Medicine Start: 11-26-2021 End: 11-26-[address] Marion Feng Work Phone: [facility]-Laboratory Start: 11-08-2021 End: 01-17-2022 ambulatory KEVIN AYON [facility] Start: 11-05-2021 End: 11-05-[address] Marion Feng Work Phone: [facility]-Laboratory Start: 10-01-2021 Non-patient / Non-visit Dr. Alanis Feng Work Phone: [facility] Start: 10-01-2021 End: 10-01-[address] Marion Feng Work Phone: [facility]-Cardiovascular Services Start: 10-01-2021 End: 10-01-[address] Marion Feng Work Phone: [facility]-Pulmonary Medicine [facility] Start: 09-15-2021 End: 09-15-[address] Marion Feng Work Phone: [facility] Start: 09-07-[address] Caryn Feng Work Phone: [facility] Comment on above: Scheduled for left s ulder rotator cuff repair on October 24, 2021. Will need bridged with lovenox Start: 09-07-2021 End: 09-07-[address] Marion Feng Work Phone: [facility] Start: 08-31-2021 End: 09-17-[address] Marion Feng Work Phone: [facility]-Laboratory, [place] Start: 06-01-2020 End: 06-01-2020 Patient encounter procedure Mitchell Hernandez MD Work Phone: [facility] Work Phone: Procedures Date Procedure Procedure Detail Performing Clinician Start: 03-05-[address] [facility] Feng MD Work Phone: Start: 03-04-[address] Marion Feng MD Work Phone: Start: 03-04-2025 X-ray of soft tissue of neck Dr. Marion Feng MD Work Phone: Start: 03-04-2025 CT of soft tissues o f neck with contrast Dr. Mairon Feng MD Work Phone: Start: 01-14-2025 Radiologic exam ches t single view Eli Manuel BREASTER - CAMP ADVISOR Work Phone: Start: 01-14-2025 Basic metabolic pane l calcium total Leona Nu Price BREASTER - CAMP ADVISOR Work Phone: Start: 01-13-2025 Radiologic exam ches t single view Eli Manuel BREASTER - CAMP ADVISOR Work Phone: Start: 01-13-2025 Radiologic exam ches t single view Sarah Luna DO Work Phone: Start: 01-13-2025 Basic metabolic pane l calcium total Leona Nu Price BREASTER - CAMP ADVISOR Work Phone: Start: 01-12-2025 Radiologic exam ches t single view Sarah Jeremy DO Work Phone: Start: 01-12-2025 Basic metabolic pane l calcium total Leona Nu Price BREASTER - CAMP ADVISOR Work Phone: Start: 01-11-2025 Radiologic exam ches [...] 01-10-2025 Prothrombin time Alexan dra Mare Lobo BREASTER - CAMP ADVISOR Work Phone: Start: 12-29-2024 Antibody screen SARAH LUNA Comment on above: Performed By: #### L [id number] ####Clinical Statistics Manager: APOLONIA PADILLA ([phone])[facility] ([facility])[address] [place] [address] Start: 12-07-2024 Positron emission tomography with computed tomography Dr. [facility] Feng MD Work Phone: Start: 11-17-[address] [facility] Feng MD Work Phone: Start: 11-17-2023 CT of chest Start: 05-05-2023 Ecg routine ecg w/le ast 12 lds w/i&r Aylin Mathew MD Work Phone: Start: 01-27-2023 Ecg routine ecg w/le ast 12 lds w/i&r Nikita Ortiz BREASTER.CAMP ADVISOR Work Phone: Start: 11-05-2022 Xtrnl ecg & 48 hr recording Aylin Mathew MD Work Phone: Start: 10-14-2022 CT angiography of ch est with contrast Dr. Marion Feng Work Phone: Start: 08-05-2022 Antibody screen BRYAN MATHEW Comment on above: Order Comment: Speci men Type: BLOOD SPECIMEN Ordering Facility: [facility] Address: [address] [place] [id number] Performed By: #### T SCR #### [facility] CLIA [id number] [address] [place] [address] OF [facility] Start: 05-15-2022 Ecg routine ecg w/le [...] 06-01-2020 End: 06-01-2020 Documentation of current medications Kteurah Almanzar RT Plan of Treatment Date Care Activity Detail Author Start: 05-05-2027 Colonoscopy COLONOSCOPY [facility] Start: 05-05-2027 COLORECTAL CANCER SCREENING COLORECTAL CANCER SCREENING [facility] Start: 05-05-2027 Screening for malignant neoplasm of colon [facility] Start: 08-05-2025 DIABETES SCREEN DIABETES SCREEN [facility] Start: 08-05-2025 Diabetes Screening Diabetes Screening [facility] Start: 03-21-2025 Influenza vaccination [facility] Start: 03-05-2025 Patient discharge [facility] Start: 03-04-2025 Application of intermittent pneumatic compression device [facility] Start: 03-04-2025 Following clinical pathway protocol [facility] Start: 03-04-2025 Assessment of risk of venous thromboembolism [facility] Start: 03-04-2025 Elevation of head of bed [facility] Start: 03-04-2025 Insertion of catheter into peripheral vein [facility] Start: 03-04-2025 Providing care according to standard [facility] Start: 03-04-2025 Provision of activity privileges [facility] Start: 03-04-2025 [facility] Start: 03-04-2025 Verification routine [facility] Start: 03-04-2025 Hospital admission, emergency, from emergency room, medical nature [facility] Start: 03-04-2025 Admission procedure [facility] Start: 03-04-2025 [facility] Start: 03-04-2025 Inhalation therapy procedure [facility] Start: 03-04-2025 Patient referral to dietitian [facility] Start: 01-27-2025 End: 01-27-2025 Patient encounter procedure 01/27/2025 10:30 AM EDT Office Visit [facility] [place] [address] [place] [phone] Eli Manuel APRN - [place] [address] [address] [facility] Cardiovascular Thoracic Surgery [facility] Start: 01-10-2025 End: 01-10-2025 Admission to same day surgery center 01/10/2025 7:30 AM EDT - 01/10/2025 11:30 AM EDT Surgery [facility] MAIN OR [address] [place] [phone] Sarah Luna DO [address] [place] [id number] ROBOTIC RIGHT UPPER LOBECTOMY [68742 (CPT )] [facility] Comment on above: ROBOTIC RIGHT UPPER LOBECTOMY [85696 (CP T )] Start: 01-10-2025 Subsequent hospital visit by physician 01/10/2025 7:30 AM EDT Hospital Encounter [facility] OR [address] [place] [address] Sarah uLna DO [address] [place] [id number] [facility] OR Start: 01-10-2025 End: 01-10-2025 Thoracoscopy w/lobectomy single lobe ROBOTIC (XI) LOBECTOMY, LUNG Solitary pulmonary nodule 01/10/2025 7:30 AM EDT [facility] Operating Room Start: 12-29-2024 End: 12-29-2024 Admission to establishment 12/29/2024 2:30 PM EDT Pre-Admission Testing [facility] Pre-Admit Testing [address] [place] [phone] [facility] Pre-Admit Testing Start: 12-10-2024 Patient referral [facility] Work Phone: Start: 11-25-2024 PROSTATE CANCER SCREENING DISCUSSION PROSTATE CANCER SCREENING DISCUSSION [facility] Start: 11-25-2024 Prostate specific antigen measurement Prostate Cancer Screening Discussion [facility] Start: 11-04-2024 Lipid 1996 panel - Serum or Plasma Lipid Screening [facility] Start: 11-04-2024 Lipid panel Lipid Screening [facility] Start: 11-04-2024 LIPID SCREEN LIPID SCREEN [facility] Start: 03-21-2024 COVID-19 Vaccine ( season) COVID-19 Vaccine () [facility] Start: 03-21-2024 Influenza vaccination Influenza Vaccine (Season Ended) [facility] Start: 07-21-2023 Advance Directive Discussion Advance Directive Discussion [facility] Start: 07-21-2023 Behavioral Health Screening Behavioral Health Screening [facility] Start: 03-21-2023 Covid-19 Vaccine ( season) Covid-19 Vaccine ( season) [facility] Start: 03-21-2023 Influenza vaccination [facility] Start: 12-03-2022 End: 2023 NM CARDIAC PERF STRESS/EXERCISE NM CARDIAC PERF STRESS/EXERCISE Radiology Routine Dyspnea, unspecified type Regular wide QRS complex tachycardia Expected: 12/03/2022, Expires: 2023 [facility] Work Phone: Comment on above: Expected: 12/03/2022, Expires: Start: 12-02-2022 Patient referral [facility] Work Phone: Start: 11-25-2022 DIABETES SCREEN DIABETES SCREEN [facility] Start: 07-21-2022 ADVANCE DIRECTIVE DISCUSSION ADVANCE DIRECTIVE DISCUSSION [facility] Start: 07-21-2022 DEPRESSION ASSESSMENT DEPRESSION ASSESSMENT [facility] Start: 03-21-2022 Influenza vaccination INFLUENZA (#1) [facility] Start: 2021 ADVANCE DIRECTIVE DISCUSSION ADVANCE DIRECTIVE DISCUSSION [facility] Start: 07-21-2021 DEPRESSION ASSESSMENT DEPRESSION ASSESSMENT [facility] Start: 07-13-2021 COVID-19 VACCINE (4 - Booster for Pfizer series) COVID-19 VACCINE (4 - Booster for Pfizer series) [facility] Start: 07-13-2021 COVID-19 VACCINE (4 - Pfizer series) COVID-19 VACCINE (4 - Pfizer series) [facility] Start: 08-16-2020 DTaP/Tdap/Td Vaccines (2 - Td or Tdap) DTaP/Tdap/Td Vaccines (2 - Td or Tdap) [facility] Start: 08-16-2020 Urine microalbumin profile [facility] Start: 06-01-2020 End: 06-01-2020 Appointment [facility] Work Phone: Start: 2016 RSV Immunization for Adults (1 - Risk 60-74 years 1-dose series) RSV Immunization for Adults (1 - Risk 60-74 years 1-dose series) [facility] Start: 2016 RSV Vaccine (1 - 1-dose 60+ series) RSV Vaccine (1 - 1-dose 60+ series) [facility] Start: 2006 Influenza vaccination LUNG CANCER SCREENING [facility] Start: 2006 Screening for malignant neoplasm of lung Lung Cancer Screening [facility] Start: 2006 SHINGRIX VACCINE (1 of 2) SHINGRIX VACCINE (1 of 2) [facility] Start: 2006 Zoster Vaccines (1 of 2) Zoster Vaccines (1 of 2) [facility] Start: 2001 COLOGUARD (FIT-DNA) COLOGUARD (FIT-DNA) [facility] Start: [address] COLONOGRAPHY [facility] Start: 2001 FECAL OCCULT BLOOD FECAL OCCULT BLOOD [facility] Start: 2001 Screening for malignant neoplasm of colon [facility] Start: 2001 SIGMOIDOSCOPY SIGMOIDOSCOPY [facility] Start: 12-20-1975 Pneumococcal Vaccine: 50+ Years (1 of 2 - PCV) Pneumococcal Vaccine: 50+ Years (1 of 2 - PCV) [facility] Start: 1974 Diabetes mellitus screening Diabetes Screening [facility] Start: 1974 Hepatitis C screening Hepatitis C Screening [facility] Start: 1974 HIV SCREENING HIV SCREENING [facility] Start: 1968 Depression Screening Depression Screening [facility] Start: 1962 Pneumococcal Vaccine: 65+ (1 - PCV) Pneumococcal Vaccine: 65+ (1 - PCV) [facility] Start: 1962 Pneumococcal Vaccine: 65+ (1 of 2 - PCV) Pneumococcal Vaccine: 65+ (1 of 2 - PCV) [facility] Start: 1962 PNEUMOCOCCAL: 65+ (1 - PCV) PNEUMOCOCCAL: 65+ (1 - PCV) [facility] Start: 06-20-1957 COVID-19 VACCINE (#1) COVID-19 VACCINE (#1) [facility] Start: 1956 ABDOMINAL AORTIC ANEURYSM SCREENING ABDOMINAL AORTIC ANEURYSM SCREENING [facility] Start: 1956 Abdominal aortic aneurysm screening Abdominal Aortic Aneurysm Screening [facility] Start: 1956 Lipid panel Lipid Panel [facility] Start: 1956 Medicare Annual Wellness (AWV) Medicare Annual Wellness (AWV) [facility] Start: 1956 Screening for malignant neoplasm of colon [facility] Blood chemistry [facility] Work Phone: Cardioversion [facility] Work Phone: CBC W Auto Different ial panel - Blood [facility] Work Phone: CBC W Auto Different ial panel - Blood [facility] CT Chest [facility] CT Chest [facility] Lipid 1996 panel - S cuauhtemoc or Plasma [facility] Work Phone: Lipid 1995 panel - S cuauhtemoc or Plasma [facility] Lipid 1995 panel - S cuauhtemoc or Plasma [facility] Patient Education \cps-sql1\CPS_ PtEducati on\[facility]_FALL_PREVENTION. pdf [facility] Work Phone: Patient referral [facility] Work Phone: Positron emission tomography with computed tomography [facility] Prostate specific antigen measurement [facility] Work Phone: Prostate specific antigen measurement [facility] Thyroid stimulating hormone measurement [facility] Work Phone: Tobacco use cessatio n education [facility] Vitamin D, 25-hydrox y measurement [facility] Work Phone: [facility] [place] [facility] Immunizations Immunization Date Immunization Notes Care Provider [facility] 05-18-2021 Covid (Pfizer) Dr. Marion gonzalez Work Phone: [facility] 09-11-2020 Covid (Pfizer) Dr. Marion gonzalez Work Phone: [facility] 08-17-2020 Covid (Pfizer) Dr. Marion gonzalez Work Phone: [facility] 06-17-2018 influenza virus vaccine, unspecified formulation Aylin Mathew MD Work Phone: [facility] 08-16-2010 tetanus toxoid, redu shelley diphtheria toxoid, and acellular pertussis vaccine, adsorbed Aylin Mathew MD Work Phone: [facility] Work Phone: Payers Date Payer Category Payer Commercial Managed C are - HMO [employer]AN [id number] 2024 Private Health Insurance [id number] 2024 Self-pay [id number] 2024 Unknown [id number] 2021 Medicare [id number] 2021 Medicare [id number] 2017 Private Health Insurance [id number] 2017 Private Health Insurance [id number] 2006 Unknown [id number] 1955 Unknown [id number] .2.651 1956 Unknown [id number] .840.1.738346.3.579 .2.651 Unknown [facility] PACKAGE PLAN [id number] Unknown [id number] Unknown [id number] .2.462 Unknown [id number] 2.840.1.547914.3.579 .2.462 Unknown [id number] 2.16.840.1.278280.3.579 .2.462 Unknown [id number] 2.16.840.1.588402.3.579 .2.462 Unknown [id number] 2.16.840.1.339871.3.579 .2.462 Unknown [id number] 2.16.840.1.402963.3.579 .2.462 Unknown [id number] 2.16.840.1.560456.3.579 .2.462 Unknown [id number] 2.16.840.1.789313.3.579 .2.462 Unknown [id number] 2.16.840.1.922146.3.579 .2.462 Unknown [id number] 2.16.840.1.276620.3.579 .2.462 Unknown [id number] 2.16.840.1.733431.3.579 .2.462 Unknown [id number] 2.16.840.1.298880.3.579 .2.462 Unknown [id number] 2.16.840.1.136309.3.579 .2.462 Unknown [id number] 2.16.840.1.592524.3.579 .2.462 Unknown [id number] 2.16.840.1.441852.3.579 .2.462 Unknown [id number] 2.16.840.1.970442.3.579 .2.462 Unknown [id number] 2.16.840.1.251654.3.579 .2.462 Unknown [id number] 2.16.840.1.424782.3.579 .2.462 Unknown [id number] 2.16.840.1.607784.3.579 .2.462 Social History Date Type Detail Facility Start: 10-01-2021 End: 06-09-2023 Assertion Unknown if ever smoked [facility] Work Phone: Start: 04-25-2020 None [facility] Start: 04-25-2020 Spouse/ Signif icant Other [facility] Start: 1955 Sex Assigned At Male W [facility] Start: 02-18-2020 End: 11-05-2022 Tobacco smoking status AZIS Smokes tobacco daily [facility] Work Phone: Start: 07-21-1974 End: 2024 History of tobacco use Cigarette Smoker [facility] Work Phone: Start: 02-18-2020 End: 01-10-2025 Cigarettes smoked current (pack per day) - Reported 1 [facility] Start: 02-18-2020 End: 12-23-2024 Tobacco use and exposure Smokeless tobacco non-user [facility] Work Phone: Start: 05-15-2022 End: 11-05-2022 Alcohol intake Current non-drinker of alcohol (finding) [facility] Start: 1955 Sex Assigned At Not on file [facility] Start: 05-05-2022 End: 05-15-2022 Exposure to SARS-CoV-2 (event) Not sure [facility] Start: 01-27-2023 End: 01-10-2025 Tobacco use panel [facility] National Score (1-100), lower number is lower risk 30 [facility] Start: 04-19-2024 Tobacco smoking stat us AZIS Current Heavy tobacco smoker [facility] Start: 05-30-2022 End: 10-23-2024 Sex Male (finding) [facility] Start: 12-23-2024 End: 03-05-2025 Tobacco smoking status NHIS Ex-smoker [facility] Start: 07-21-1974 End: 2024 History of tobacco use Current smoker [facility] Start: 12-23-2024 End: 01-11-2025 Alcoholic beverage intake Current drinker of alcohol (finding) [facility] Start: 12-15-2024 Gender identity Identifies as male gender (finding) [facility] Within the last year , have you been afraid of your partner or ex-partner? No [facility] How often to you hav e a drink containing alcohol? Never [facility] Start: 12-29-2024 Alcohol Comment or less than weekly [facility] Goals Date Patient Goal Desired Activity /State Functional Status Date Assessment Result Facility 03-05-2025 Functional status Ambulates [facility] Work Phone: [facility] Mental Status Date Assessment Result Facility 03-05-2025 Cognitive function Voice/Name [facility] Work Phone: Clinical Notes 06-01-2013 to 03-05-2025 Note Date & Type Note Facility 03-05-2025 Discharge summary [facility] 03-05-2025 Discharge summary [facility] 03-05-2025 Note [facility] Medical Records Department [address] [place] [address] Discharge Summary 03/05/25 1135 MR#: [id number] Acct: [id number] Name: RICH JAMES I Rep #: [id number] : 1955 69 From: Bryan Sesay MD PCP: Dr. Marion Feng MD Status:ADM IN [facility] Providers Date of Admission: 03/04/25 Primary Care [...] Relief) 1 spray intranasal DAILY Allergies 02/29/20 sbevrqpdnyh-grzdmcoxi-plr C-Mn 500 mg-400 mg capsule (Glucosamine Chondroitin [...] 72.9 H, Lymph % (Auto) 15.3 L, Randall % (Auto) 10.6 H, Eos % (Auto) [...] 88.6 H, Lymph % (Auto) 8.1 L, Randall % (Auto) 3.0, Eos % (Auto) 0.0, [...] summary Note Date/Time March 05, 2025 6:58am [facility] Medical Records Department [address] [place] [address] Emergency Department Summary 03/04/25 MR#: [id number] Acct: [id number] Name: RICH JAMES I Rep #:[id number] : 1955 69 From: Jennifer PHILLIP PCP: Dr. Marion Feng MD Status:ADM IN Location: [place] [address]- 1 HPI <KENJI Smith - Last Filed: [...] test and was sent here for evaluation. [facility] <KENJI Smith - Last Filed: 03/04/25 16:33> [facility] Medical History History of cardioversion GERD (gastroesophageal [...] History mcg/actuation nasal spray,suspension (Flonase Allergy Relief) xlvegouuwch-qndjikhrq-pvy C-Mn 500 2 cap PO DAILY Join [...] Ox 99 Oxygen Delivery Method Room Air [facility] <KENJI Smith - Last Filed: 03/04/25 16:33> [facility] Narrative Medical decision making narrative: 69-year-old male [...] 72.9 H Lymph % (Auto) 15.3 L Randall % (Auto) 10.6 H Eos % (Auto) [...] 4 p.m. Eastern standard time. Reading Location: [id number] Soft Tissue Neck X-Ray 03/04/25 14:40 IMPRESSION: Degenerative changes cervical spine. Unremarkable appearance of the soft tissues. Reading Location: [id number] <Dr. Ashok Olvera MD - Last Filed: [...] 72.9 H Lymph % (Auto) 15.3 L Randall % (Auto) 10.6 H Eos % (Auto) [...] 4 p.m. Eastern standard time. Reading Location: [id number] Soft Tissue Neck X-Ray 03/04/25 14:40 IMPRESSION: Degenerative changes cervical spine. Unremarkable appearance of the soft tissues. Reading Location: [id number] Management Discussion w/another healthcare provider: Hospitalist (Will discuss case with Dr. Cedeno. Disposition is admission question is what unit patient should go to.) <Dr. 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 Call [facility] ([phone]) or report to the closest Emergency Room. Call 911 if necessary. 03/04/25 1633 <Electronically signed by Jennifer PHILLIP> Cosigner Signature (if applicable): 03/05/25 0658 <Electronically signed by Ashok Olvera MD> CC: Dr. Marion Feng MD ~ Signed [facility] Work Phone: 1(403) 446-201408-16-2025 Discharge summary [facility] Medical Records Department [address] [place] [address] Emergency Department Summary 03/04/25 MR#: [id number] Acct: [id number] Name: RICH JAMES I Rep #:[id number] : 1955 69 From: Jennifer PHILLIP PCP: Dr. Marion Feng MD Status:ADM IN Location: PCU [id number]- [id number] HPI History of Present Illness Chief [...] test and was sent here for evaluation. [facility] Medical History History of cardioversion GERD [...] History mcg/actuation nasal spray,suspension (Flonase Allergy Relief) tzecajvynmn-azeiaxhry-gcw C-Mn 500 2 cap PO DAILY Join [...] 72.9 H Lymph % (Auto) 15.3 L Randall % (Auto) 10.6 H Eos % (Auto) [...] at 4 p.m. Easternstandard time. Reading Location: [id number] Soft Tissue Neck X-Ray 03/04/25 14:40 IMPRESSION: Degenerative changes cervical spine. Unremarkable appearance of the soft tissues. Reading Location: ADU-JERNSOY-EX MDM MDM Narrative Medical decision making narrative: [...] 72.9 H Lymph % (Auto) 15.3 L Randall % (Auto) 10.6 H Eos % (Auto) [...] at 4 p.m. Easternstandard time. Reading Location: [facility] Soft Tissue Neck X-Ray 03/04/25 14:40 IMPRESSION: Degenerative changes cervical spine. Unremarkable appearance of the soft tissues. Reading Location: [facility] Management Discussion w/another healthcare provider: Hospitalist (Will discuss case with Dr. Cedeno. 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 Call [employer] [facility] ([phone]) or report to the closest Emergency Room. Call 911 if necessary. 03/04/25 1633 Cosigner Signature (if applicable): 03/05/25 0658 CC: Dr. Marion Feng MD ~ Signed [facility]08-15-2025 History and physical note Author Donna Cedeno [facility] Note Date/Time March 04, 2025 7: 01pm [facility] Medical Records Department [address] [place] [address] H&P Exam - Hospitalist 03/04/25 1813 MR#: [id number] Acct: [id number] Name: RICH JAMES I Rep #:[id number] : 1955 69 From: Donna Cedeno MD PCP: Dr. Marion Feng MD Status:ADM IN Location: [facility] BD645-5 HPI - General General Date of Admission: 03/04/25 Date of Service: 03/04/25 Chief Complaint: Difficulty swallowing medications HPI Narrative RICH JAMES, is a 69-year-old male history of A-fib on Coumadin, COPD, hyperlipidemia, depression presented to [facility] ED 03/04/2025 with 3 days of [...] no chest pain. No rashes, bleeding, bruising. [facility] Medical History History of cardioversion GERD (gastroesophageal [...] History mcg/actuation nasal spray,suspension (Flonase Allergy Relief) oaqbkhvlnif-ekmnahoeh-ypa C-Mn 500 1 cap PO DAILY 02/18 [...] 72.9 H, Lymph % (Auto) 15.3 L, Randall % (Auto) 10.6 H, Eos % (Auto) [...] 4 p.m. Eastern standard time. Reading Location: [facility] Soft Tissue Neck X-Ray 03/04/25 14:40 IMPRESSION: Degenerative changes cervical spine. Unremarkable appearance of the soft tissues. Reading Location: [facility] Assessment & Plan Assessment/Plan (1) Dysphagia: PLAN: [...] Cedeno MD Charges/Coding Visit Charges Inpatient E&M: 47333 Init Hosp L2 03/04/25 190 <Electronically signed by Donna Cedeno MD> Cosigner Signature (if applicable): CC: Dr. Marion Feng MD; Dr. Donna Cedeno MD~ Signed [facility] Work Phone: 1(250) 580-924308-15-2025 History and physical note Author Donna Cedeno [facility] Note Date/Time March 04, 2025 7: 01pm [facility] Medical Records Department [address] [place] [address] H&P Exam - Hospitalist 03/04/25 1813 MR#: [id number] Acct: [id number] Name: RICH JAMES I Rep #:[id number] : 1955 69 From: Donna Cedeno MD PCP: Dr. Marion Feng MD Status:ADM IN Location: [place] [address] HPI - General General Date of Admission: 03/04/25 Date of Service: 03/04/25 Chief Complaint: Difficulty swallowing medications HPI Narrative RICH JAMES, is a 69-year-old male history of A-fib on Coumadin, COPD, hyperlipidemia, depression presented to [facility] ED 03/04/2025 with 3 days of [...] no chest pain. No rashes, bleeding, bruising. [facility] Medical History History of cardioversion GERD (gastroesophageal [...] History mcg/actuation nasal spray,suspension (Flonase Allergy Relief) czlmsvihzlm-hdphhvznf-dqn C-Mn 500 1 cap PO DAILY 02/18 [...] 72.9 H, Lymph % (Auto) 15.3 L, Randall % (Auto) 10.6 H, Eos % (Auto) [...] 4 p.m. Eastern standard time. Reading Location: [facility] Soft Tissue Neck X-Ray 03/04/25 14:40 IMPRESSION: Degenerative changes cervical spine. Unremarkable appearance of the soft tissues. Reading Location: [facility] Assessment & Plan Assessment/Plan (1) Dysphagia: PLAN: [...] Cedeno MD Charges/Coding Visit Charges Inpatient E&M: 31046 Init Hosp L2 03/04/25 190 <Electronically signed by Donna Cedeno MD> Cosigner Signature (if applicable): CC: Dr. Marion Feng MD; Dr. Donna Cedeno MD~ Signed [facility] Work Phone: 1(642) 908-986408-15-2025 History and physical note [facility] Medical Records Department [address] [place] [address] H&P Exam - Hospitalist 03/04/25 1813 MR#: [id number] Acct: [id number] Name: RICH JAMES I Rep #:[id number] : 1955 69 From: Donna Cedeno MD PCP: Dr. Marion Feng MD Status:ADM IN Location: [facility] EM783-4 HPI - General General Date of Admission: 03/04/25 Date of Service: 03/04/25 Chief Complaint: Difficulty swallowing medications HPI Narrative RICH JAMES, is a 69-year-old male history of A-fib on Coumadin, COPD, hyperlipidemia, depression presented to [facility] ED 03/04/2025 with 3 days of [...] no chest pain. No rashes, bleeding, bruising. [facility] Medical History History of cardioversion GERD (gastroesophageal [...] History mcg/actuation nasal spray,suspension (Flonase Allergy Relief) ynzbhlcdxev-kgweyievf-apq C-Mn 500 1 cap PO DAILY 02/18 [...] 72.9 H, Lymph % (Auto) 15.3 L, Randall % (Auto) 10.6 H, Eos % (Auto) [...] directly to Jennifer Goel at 4 p.m. [facility]. Reading Location: [id number] Soft Tissue Neck X-Ray 03/04/25 14:40 IMPRESSION: Degenerative changes cervical spine. Unremarkable appearance of the soft tissues. Reading Location: [id number] Assessment & Plan Assessment/Plan (1) Dysphagia: PLAN: [...] Cedeno MD Charges/Coding Visit Charges Inpatient E&M: 71965 Init Hosp L2 03/04/25 1901 Cosigner Signature (if applicable): CC: Dr. Marion Feng MD; Dr. Donna Cedeno MD~ Signed [facility]08-15-2025 Radiology Diagnostic study note [facility] Imaging Services [address] [place], [place] [id number] Soft Tissue Neck WITH Contrast MR#: [id number] Acct: [id number] Name: RICH JAMES I Rep #: [id number] : 1955 M 69 From: Fercho Downey MD PCP: Dr. Marion Feng MD Status: REG ER Study:Soft Tissue Neck WITH Contrast Date of Exam: 03/04/25 Exam# [id number] Ordering Dr: Jennifer Tong PROCEDURE: SOFT TISSUE [...] at 4 p.m. Easternstandard time. Reading Location: [facility] CC: Dr. Marion Feng MD; KENJI Smith ~ [employer]: Signed [facility]08-15-2025 Radiology Diagnostic study note [facility] Imaging Services [address] [place] [address] Neck for Soft Tissue MR#: [id number] Acct: [id number] Name: RICH JAMES I Rep #: [id number] : 1955 M 69 From: Fercho Downey MD PCP: Dr. Marion Feng MD Status: REG ER Study:Neck for Soft Tissue Date of Exam: 03/04/25 Exam# [id number] Ordering Dr: Jennifer Tong PROCEDURE: NECK FOR [...] appearance of the soft tissues. Reading Location: [facility] CC: Dr. Marion Feng MD; KENJI Smith ~ [employer]: Signed [facility]07-10-2025 History of Present illness Narrative* Eli Manuel APRN - CAMP ADVISOR - 01/27/2025 10:30 AM EDT Images from the original note were not included. [facility] Medical Group: [facility] [employer] [facility] [address] [facility] [address] Dept: [phone] Dept Loc: [phone] Visit type: Established patient - in person [...] M.D./George Delaney M.D. Intraoperative consultation performed at [facility], [address] [place] [address]; CLIA: [id number]; Joint Commission: [id number]; CAP: [id number] Clinical Information Solitary pulmonary nodule - R91.1 [...] 1.7 x 1 x 1 cm. A agency sales representative portion is submitted for frozen [...] This note may have been dictated using [employer] Practice Edition 2.6 and/or [employer] Voice Recognition Feature. The document was proofread, however unrecognized voice recognition letter of credit clerk errors may be present. documented in this encounterSWayne HealthCare Main [id number] Nurse Note* Lisa Barfield RN - 01/14/2025 1:15 PM EDT Discharged ordered reviewed and signed no questions at this time. [facility] [id number] Nurse Note* Lisa Barfield RN - 01/14/2025 [...] bring it from home. documented in this [facility]06-27-2025 Note* Care Coordination - Ebony Ball RN [...] Length of Stay (Days): 4 GMLOS: 3.5 [facility] [id number] Note* Care Coordination - Ebony Ball RN [...] Length of Stay (Days): 4 GMLOS: 3.5 [facility] [id number] NoteCare Management Progress Note Short Medical why still here: Patient remains on H6 right upper lobe nodule s/p wedge resection. Per chart review CT dc'd. Active discharge order noted. No home going needs noted. Planned Discharge Disposition: Home or Self Care Barriers/Today we still Wait: Clinical stability, Symptomatic control Length of Stay (Days): 4 [facility] Miscellaneous Notes* Care Coordination - Ebony Ball [...] lymph node dissection Surgeon: Savanah Luna DO Secretary To The Vice President: Mamie Ballesteros Anesthesia: General--Dr. Houston Complications: None [...] and draped in usual sterile fashion. The certified anesthesiologist assistant was present for the entire procedure [...] was undocked and removed. A single 28 Iranian chest tube was placed through the anterior [...] of outputs and hemodynamics. Savanah Luna DO [facility] Cardiothoracic Surgery documented in this [facility]06-27-2025 NoteDischarge Summary: Cardiothoracic Surgery Rich James, 69 y.o., 1955 ADMIT DATE: 01/10/2025 DISCHARGE DATE: 01/14/2025 VISIT STATUS: Admission CODE STATUS: Full Code DISCHARGING SURGEON: Sarah Luna DO, Office Number: [phone] DISCHARGE DIAGNOSES: Right upper lobe nodule s/p [...] Breztri Aerosphere 160-9-4.8 MCG/ACT aerosol Generic drug: Gchxzmk-Yqrbmoiszkb-Yflpeyavsh buPROPion 150 MG 12 hr tablet Commonly known as: Zyban famotidine 20 MG tablet Commonly known as: Pepcid VVVPZUJDYDE-SBKOUUKUE-KIZ C-MN PO loratadine 10 MG tablet Commonly known as: Claritin metoprolol succinate XL 25 MG 24 hr tablet Commonly known as: Toprol-XL simvastatin 20 MG tablet Commonly known as: Zocor warfarin 5 MG tablet Commonly known as: Coumadin STOP taking these medications fluticasone 50 MCG/ACT nasal spray Commonly known as: Flonase Where to Get Your Medications These medications were sent to [facility] [address] [place] [address] Hours: Friday to Friday 10 am to [...] Eli Manuel PARVEEN January 27 10:30am [address], [place] [address] Dept: [phone] Dept DISPOSITION: Home A copy of the discharge instructions which included the medications at the time of discharge, follow-up appointments, phone numb (more content not included)... [facility]06-27-2025 Hospital Discharge instructions* Discharge Instructions* Eli ManuelMARCOS CNP - 01/14/2025 11:06 AM EDT Images from the original note were not included. [facility]: Cardiothoracic Surgery [address] [place] [address] [address] E[address] JORDAN (T): #[phone] (F): #[phone] After lung surgery, it is common to [...] or dog food bags, or a vacuum ship cleaner. If your incision is in the [...] you start to have pain. Shoulder Stretch workday financials consultant a doorway and place one arm against [...] Ifyou are prescribed oxycodone/acetaminophen (Percocet) or hydrocodone/acetaminophen ([place]/Vicodin) be cautious when taking additional tylenol. No [...] Cardiothoracic Surgery: Symptom Management Office phone number: [phone] Office is open 8:30 am -4 pm. [...] Call cardiothoracic surgery line for further instructions: [phone] Office is open 8:30 am -4 pm. [...] care in Emergency Department documented in this [facility]06-27-2025 History of Present illness Narrative* Renata Hassan [facility] - 01/14/2025 10:[address] [facility] Anticoagulation Management Service (BRITTANY) Inpatient Warfarin Consult HPI: Rich James is a 69 y.o. male admitted on 01/10/2025 for Solitary pulmonary nodule [R91.1] Lung nodule [R91.1]. Medical History[1] Patient is on warfarin for DVT, Afib, Protein C Deficiency and has a goal INR 2.0 - 3.0. Warfarin is currently managed by [facility]. Pt's home dose of warfarin [...] candidate 2025, staffed with Renata Hassan PharmD, [facility] BRITTANY Consult Service is available daily [phone] via Apptimize Secure Chat. [1] Past Medical History: Diagnosis [...] original note were not included. PHYSICAL THERAPY [facility] Treatment Note Name/MRN: Rich James ([id number]) Date of : 1955 Age: 69 y.o. [...] Minutes (GT/Ther Ex) Maile Blount, SPTMare Thomas HALAL BUTCHER Cosigned by Eva Estevez PT at 01/13/2025 3:54 PM EDT Associated attestation - Eva Estevez PT - 01/13/2025 3:54 PM EDT Goals met, OK to discharge from PT standpoint. Recommend use of mobility aides for encouraging walking throughout LOS. * Diandra Alvarado - 01/13/2025 11:51 AM EDT Images from the original note were not included. OCCUPATIONAL THERAPY [facility] Initial Evaluation Name/MRN: Rich James ([id number]) Evaluation Date: 01/13/2025 Date of : 1955 Admission Date: 01/10/2025 5:44 AM Age: 69 y.o. Room/Bed: 61/6111 A Discharge Recommendation: Home with assist PRN Assessment IMPRESSION: Pt admitted for lung nodule and s/p Robotic right thoracoscopy, right upper lobe wedge resection, mediastinal lymph node dissection on 01/10/25. 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 Pt is currently performing at or near [...] of Care supervision is transferred to a [facility] Therapy Services Occupational Therapist. Goals and/or treatment [...] P ROCEDURE (HISTORICAL) CARPAL TUNNEL RELEASE Right OK REMV LUNG, WEDGE RESECTION AND ANATOMIC LUNG RESECTION (HISTORICAL) Right 01/10/2025 robotic right upper ROTATOR CUFF REPAIR Right ROTATOR CUFF REPAIR Left x 2 TOTAL HIP ARTHROPLASTY Right Cosigned by Tawana Flores OT at 01/13/2025 2:05 PM EDT * Renata Hassan RP - 01/13/2025 11:[address] [facility] Anticoagulation Management Service (BRITTANY) Inpatient Warfarin Consult HPI: Rich James is a 69 y.o. male admitted on 01/10/2025 for Solitary pulmonary nodule [R91.1] Lung nodule [R91.1]. Medical History[1] Patient is on warfarin for DVT, Afib, Protein C Deficiency and has a goal INR 2.0 - 3.0. Warfarin is currently managed by [facility]. Pt's home dose of warfarin [...] candidate 2025, staffed with Renata Hassan PharmD, [facility] BRITTANY Consult Service is available daily [phone] via Apptimize Secure Chat. [1] Past Medical History: Diagnosis Date COPD (chronic obstructive pulmonary disease) (HCC) GERD (gastroesophageal reflux disease) Hiatal hernia 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 Obesity FIFI (obstructive sleep apnea) Paroxysmal atrial fibrillation (HCC) Protein deficiency anemia Right bundle branch block * Eli Manuel APRN - CAMP ADVISOR - 01/13/2025 6:35 AM EDT Images from [...] RUL wedge; MLND I personally performed a vepc-qd-twwr diagnostic evaluation on this patient I agree [...] of 20 minutes were spent between the bejp-vl-ehsm encounter, physical exam, reviewing the medical history, [...] be monitored and followed by the diet photovoltaic installation technician. DEBBIE Gonzalez * Sofi Valdivia PTA - 01/12/2025 10:12 AM EDT Images from the original note were not included. PHYSICAL THERAPY [facility] Treatment Note Name/MRN: Rich James ([id number]) Date of : 1955 Age: 69 y.o. Room/Bed: 6111/[facility] A Discharge Recommendation: Home with assist [...] Noel RCP - 01/12/2025 9:45 AM EDT [facility] Respiratory Care Department Progress Note As [...] original note were not included. OCCUPATIONAL THERAPY [facility] Name/MRN: Rich James ([id number]) Date: 01/12/2025 OT orders received and chart reviewed. Attempting OT eval, pt working with PT. Will continue to follow as schedule permits. Tawana Flores OTR/L * Renata Hasasn [facility] - 01/12/2025 8:[address] [facility] Anticoagulation Management Service (BRITTANY) Inpatient Warfarin Consult [...] PharmD BRITTANY Consult Service is available daily [phone] via Apptimize Secure Chat. [1] Past Medical History: Diagnosis Date COPD (chronic obstructive pulmonary disease) (HCC) GERD (gastroesophageal reflux disease) Hiatal hernia 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 Obesity FIFI (obstructive sleep apnea) Paroxysmal atrial fibrillation (HCC) Protein deficiency anemia Right bundle branch block * Tr Busch, PT - 01/11/2025 2:51 PM EDT Images from the original note were not included. PHYSICAL THERAPY [facility] Initial Evaluation Name/MRN: Rich James ([id number]) Evaluation Date: 01/11/2025 Date of : 1955 Admission Date: 01/10/2025 5:44 AM Age: 69 y.o. Room/Bed: [facility] A Discharge Recommendation: Home with assist PRN Assessment IMPRESSION: Pt admitted for lung nodule and s/p Robotic right thoracoscopy, right upper lobe wedge resection, mediastinal lymph node dissection on 01/10/25. Pt normally very independent and works 50 hours a week for [employer]. Pt is SBA x1 throughout session. Pt [...] of Care supervision is transferred to a [facility] Therapy Services Physical Therapist. Goals and/or treatment [...] P ROCEDURE (HISTORICAL) CARPAL TUNNEL RELEASE Right OK REMV LUNG, WEDGE RESECTION AND ANATOMIC LUNG RESECTION (HISTORICAL) Right 01/10/2025 robotic right upper ROTATOR CUFF REPAIR Right ROTATOR CUFF REPAIR Left x 2 TOTAL HIP ARTHROPLASTY Right * Renata Hassan RP - 01/11/2025 11:[address] [facility] Anticoagulation Management Service (BRITTANY) Inpatient Warfarin Consult [...] PharmD BRITTANY Consult Service is available daily [phone] via Apptimize Secure Chat. [1] Past Medical History: Diagnosis Date COPD (chronic obstructive pulmonary disease) (HCC) GERD (gastroesophageal reflux disease) Hiatal hernia 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 Obesity FIFI (obstructive sleep apnea) Paroxysmal atrial fibrillation (HCC) Protein deficiency anemia Right bundle branch block * Kinga Hood - 01/11/2025 10:04 AM EDT [facility] Respiratory Care Department Progress Note As [...] this patient, * Leona Price, MARCOS - CAMP ADVISOR - 01/11/2025 6:59 AM EDT Images from the original note were not included. Cardiothoracic Surgery/[facility] Progress Note PATIENT NAME: Rich James DATE: [...] of 28 minutes were spent between the obji-gm-hrsg encounter, physical exam, reviewing the medical history, [...] upper lobe wedge I personally performed a ptln-xo-qand diagnostic evaluation on this patient I agree [...] of 20 minutes were spent between the leve-zk-qfez encounter, physical exam, reviewing the medical history, coordinating care, counseling/educating the patient, ordering medications/test/procedures, interpreting results and documenting in the patient's record on the day of the encounter. Thepatient was seen and examined independently and relevant data reviewed by myself. Savanah Luna, [facility] Cardiothoracic Surgery * Elver Gimenez RRT - 01/10/2025 3:43 PM EDT Patient sleeping comfortably, will attempt smoking cessation counseling at a later time. documented in this [facility]06-26-2025 Plan of care note* Care Plan - Bekah Tristan RN - 01/13/2025 9:57 PM EDT Problem: Pain - Adult Goal: Verbalizes/displays adequate comfort level or baseline comfort level Outcome: Progressing Problem: Safety - Adult Goal: Free from fall injury Outcome: Progressing Problem: Discharge Planning Goal: Discharge to home or other facility with appropriate resources Outcome: Progressing [facility] [id number] NoteOCCUPATIONAL THERAPY [facility] Initial Evaluation Name/MRN: Rich James ([id number]) Evaluation Date: 01/13/2025 Date of : 1955 Admission Date: 01/10/2025 5:44 AM Age: 69 y.o. Room/Bed: [facility] A Discharge Recommendation: Home with assist PRN Assessment IMPRESSION: Pt admitted for lung nodule and s/p Robotic right thoracoscopy, right upper lobe wedge resection, mediastinal lymph node dissection on 01/10/25. 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 Pt is [...] of Care supervision is transferred to a [facility] Therapy Services Occupational Therapist. Goals and/or treatment [...] P ROCEDURE (HISTORICAL) CARPAL TUNNEL RELEASE Right OK REMV LUNG, WEDGE RESECTION AND ANATOMIC LUNG RESECTION (HISTORICAL) Right 01/10/2025 robotic right upper ROTATOR CUFF REPAIR Right ROTATOR CUFF REPAIR Left x 2 TOTAL HIP ARTHROPLASTY [facility]06-26-2025 Plan of care note * Care Plan [...] monitored and maintained or improved Outcome: Progressing [facility] [id number] Plan of care note* Care Plan - Bekah Tristan RN - 01/12/2025 9:50 PM EDT Problem: Pain - Adult Goal: Verbalizes/displays adequate comfort level or baseline comfort level Outcome: Progressing Problem: Safety - Adult Goal: Free from fall injury Outcome: Progressing Problem: Discharge Planning Goal: Discharge to home or other facility with appropriate resources Outcome: Progressing [facility] [id number] Plan of care note* Care Plan - [...] monitored and maintained or improved Outcome: Progressing [facility] [id number] Note* Care Coordination - Ebony Ball RN [...] Stay (Days): 2 GMLOS: No GMLOS Documented [facility] [id number] Note* Care Coordination - Ebony Ball RN [...] Stay (Days): 2 GMLOS: No GMLOS Documented [facility] [id number] NoteCare Management Progress Note Short Medical why still here: Patient remains on H6 right upper lobe nodule s/p wedge resection with chest tube. Chest tube to water seal. Planned Discharge Disposition: Home or Self Care Barriers/Today we still Wait: Clinical stability, Symptomatic control Length of Stay (Days): 2 GMLOS: No GMLOS [facility]ed[facility]06-[facility] NoteCardiothoracic Surgery Progress Note PATIENT NAME: Rich [...] Pathology pending. Savanah Luna DO FACS [facility] [id number] [facility] Respiratory Care Department Progress Note [...] Respiratory in the care of this patient, [facility]06-25-2025 NoteCardiothoracic Surgery/CCM Progress Note PATIENT NAME: Rich [...] of 18 minutes were spent between the erad-au-dhqg encounter, physical exam, reviewing the medical history, coordinating the patient's care, counseling/educating the patient, ordering medications/test/procedures, interpreting results and documenting clinical information in the patients electronic health record on the day of the encounter. The patient was seen and examined [facility]06-25-2025 Plan of care note* Care Plan - [...] injury: Instruct family/caregiver on patient safety [facility] [id number] Note* Home Care - Fabby Narayanan RN [...] should anyother needs arise prior to DC. [facility] [id number] Note* Home Care - Fabby Narayanan RN [...] should anyother needs arise prior to DC. [facility] [id number] NotePHYSICAL THERAPY [facility] Initial Evaluation Name/MRN: Rich Jaems ([id number]) Evaluation Date: 01/11/2025 Date of : 1955 Admission Date: 01/10/2025 5:44 AM Age: 69 y.o. Room/Bed: [facility] A Discharge Recommendation: Home with assist PRN Assessment IMPRESSION: Pt admitted for lung nodule and s/p Robotic right thoracoscopy, right upper lobe wedge resection, mediastinal lymph node dissection on 01/10/25. Pt normally very independent and works 50 hours a week for [employer]. Pt is SBA x1 throughout session. Pt [...] prepare for ambulation. Start (more content not included)...[facility]06-24-2025 Note* Care Coordination - Ebony Ball RN - 01/11/2025 2:13 PM EDT Care Management Progress Note Short Medical why still here: Patient admitted to H6 Right upper lobe nodule s/p wedge resection with chest tube. Planned Discharge Disposition: Home or Self Care Barriers/Today we still Wait: Clinical stability, Symptomatic control. Chest tube removal Length of Stay (Days): 1 GMLOS: No GMLOS Documented [address] [id number] Note* Care Coordination - Ebony Ball RN - 01/11/2025 2:13 PM EDT Care Management Progress Note Short Medical why still here: Patient admitted to H6 Right upper lobe nodule s/p wedge resection with chest tube. Planned Discharge Disposition: Home or Self Care Barriers/Today we still Wait: Clinical stability, Symptomatic control. Chest tube removal Length of Stay (Days): 1 GMLOS: No GMLOS Documented [address] [id number] NoteCare Management Progress Note Short Medical why still here: Patient admitted to H6 Right upper lobe nodule s/p wedge resection with chest tube. Planned Discharge Disposition: Home or Self Care Barriers/Today we still Wait: Clinical stability, Symptomatic control. Chest tube removal Length of Stay (Days): 1 GMLOS: No GMLOS DocumentedAleda E. [facility]06-24-2025 NoteFROZEN SECTION DIAGNOSIS: FS1: Malignancy not identified. Vianca Porras M.D./Clint Mckeon M.D./George Delaney M.D. Intraoperative consultation performed at [facility], [address] [place] [address]; CLIA: [id number]; Joint Commission: O [id number]; CAP: [id number] Work Phone: [phone]) 502-275206-24-2025 NoteFROZEN SECTION DIAGNOSIS: FS1: Malignancy not identified. Vianca Porras M.D./Clint Mckeon M.D./George Delaney M.D. Intraoperative consultation performed at [facility], [address] [place] [address], [facility] [address]; CLIA: [id number]; Joint Commission: [facility] 6964; CAP: [id number] Work Phone: [phone] 948-696306-24-2025 [facility] Respiratory Care Department Progress Note [...] Respiratory in the care of this patient, [facility]06-24-2025 Plan of care note* Care Plan - [...] discharge learning needs (meds, wound care, etc) [facility] [id number] Nurse Note* Jerica Lorenzo RN - 01/10/2025 10:[address] Ding patient is not to wear his home cpap due to risk of rupture of the staple line and risk of pneumothorax. Re-entered patient's room and explained this to patient, patient understands andstates he will not put on his home cpap, Placed patient back on 2L oxygen for the night. [facility] [id number] Nurse Note* Jerica Lorenzo RN - 01/10/2025 8:[address] Ding patient is inquiring on whether his coumadin and bupropion will be ordered. Dr. Ding stated it is too soon after surgery to begin coumadin, patient educated. Bupropion medication will be non-formulary, patient understands he is to have his bring it from home. [facility] CenterXharkp30-11-3589 NotePatient sleeping comfortably, will attempt smoking cessation counseling at a later time.[facility]06-23-2025 Nurse Note* Perioperative Nursing Note - Kristi Koo RN - 01/10/2025 11:58 AM EDT Report called to H6, family updated [facility] CenterNmamcg84-10-3359 NotePatient: Rich Meridar Procedure Summary Date: 01/10/25 Room / Location: [address] Operating Room Anesthesia Start: 731 Anesthesia [...] discharged once all PACU criteria has been met.[facility]06-23-2025 NotePatient: Rich Jjhberger Procedure Summary Date: 01/10/25 Room / Location: [address] Operating Room Anesthesia Start: 731 Anesthesia [...] Allowed opportunity for questions and acknowledgement of understanding.[facility]06-23-2025 NoteAirway Date/Time: 01/10/2025 7:35 AM Reason: scheduled Airway not difficult General Information and Staff Patient location during procedure: Procedural Resident/BRANCH EMPLOYMENT COORDINATOR: Wallace Pina APRN - BRANCH EMPLOYMENT COORDINATOR Performed: SRNA Patient Condition Indications for airway [...] approach: 1 Number of other approaches attempted: [facility] Note Arterial Line: Date/Time: 01/10/2025 7:44 AM [...] procedure well with no complications. Staffing Performed: BRANCH EMPLOYMENT COORDINATOR Resident/BRANCH EMPLOYMENT COORDINATOR: Jeison Gomez, [facility]06-23-2025 Procedure note* Op Note - Sarah Luna DO - 01/10/2025 7:30 AM EDT CARDIOTHORACIC SURGERY--OPERATIVE NOTE Date: 01/10/25 Preoperative Diagnosis: Right upper lobe lung nodule Postoperative Diagnosis: Right upper lobe lung nodule Procedure: Robotic right thoracoscopy Right upper lobe wedge resection Mediastinal lymph node dissection Surgeon: Savanah Luna DO Secretary To The Vice President: Mamie Ballesteros Anesthesia: General--Dr. Houston Complications: None [...] and draped in usual sterile fashion. The certified anesthesiologist assistant was present for the entire procedure [...] was undocked and removed. A single 28 Iranian chest tube was placed through the anterior [...] of outputs and hemodynamics. Savanah Luna DO [facility] Cardiothoracic Surgery [facility]06-23-2025 NotePeripheral Block Time Out: 01/10/2025 7:00 AM Patient location during procedure: pre-op Start time: 01/10/2025 7:00 AM End time: 01/10/2025 7:05 AM Reason for block: procedure for pain and Acute pain service Staffing Performed: BRANCH EMPLOYMENT COORDINATOR Resident/BRANCH EMPLOYMENT COORDINATOR: MARCOS Franklin CRNA Preanesthetic Checklist Completed: patient identified, IV checked, site marked, risks and benefits discussed, surgical consent, monitors and equipment checked, pre-op evaluation and timeout performed Region: [place]un[place] Primary: Erector Spinae Secondary: Serratus (20cc TAP 10 cc exparel) Peripheral Block Prep: ChloraPrep Patient monitoring: heart rate, classroom monitor and continuous pulse ox O2: Nasal [...] Injection 20 mL - 01/10/2025 7:00:00 AM xxuRPWZDtsuni-qutmtzmhdes-iqjwdhpbjhk (TAP) syringe - Injection 40 mL - 01/10/2025 7:00:00 [facility]06-23-2025 Attending History and physical note* Sarah Luna DO - 01/10/2025 6:45 AM EDT H&P reviewed. The patient was examined and there are no changes to the H&P. PFTs from [facility] reviewed. FEV1 2.33/66%. DLCO 16.4/64%. Will proceed with right upper lobectomy today. Savanah Luna DO [facility] Cardiothoracic Surgery Source Note - Sarah Luna DO - 12/23/2024 11:15 AM EDT Images from the original note were not included. 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 Do not crush, chew, or split., Disp: , Rfl: famotidine (Pepcid) 20 MG tablet, Take 20 mg by mouth daily., Disp: , Rfl: EIKLKEVWKTD-HAFBCEFQI-KXV C-MN PO, Take 1 capsule by mouth [...] taking: Reported on 12/23/2024), Disp: , Rfl: [facility] [id number] NoteH&P reviewed. The patient was examined and there are no changes to the H&P. PFTs from [facility] reviewed. FEV1 2.33/66%. DLCO 16.4/64%. Will proceed with right upper lobectomy today. Savanah Luna DO [facility] Cardiothoracic SurgeryAleda E. [facility]06-23-2025 History and physical note* Sarah Luna DO - 01/10/2025 6:45 AM EDT H&P reviewed. The patient was examined and there are no changes to the H&P. PFTs from [facility] reviewed. FEV1 2.33/66%. DLCO 16.4/64%. Will proceed with right upper lobectomy today. Savanah Luna DO [facility] Cardiothoracic Surgery Source Note - Sarah Luna DO - 12/23/2024 11:15 AM EDT Images from the original note were not included. 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 Do not crush, chew, or split., Disp: , Rfl: famotidine (Pepcid) 20 MG tablet, Take 20 mg by mouth daily., Disp: , Rfl: XXBECZYNXVK-KVSWFDZMB-QAU C-MN PO, Take 1 capsule by mouth [...] 12/23/2024), Disp: , Rfl: documented in this [facility]06-11-2025 NotePatient: Rich Jaems Procedure Information Date/Time: 01/10/25729 Procedure: ROBOTIC RIGHT UPPER LOBECTOMY (Right) Location: [facility] OR [address] [place] [address] Operating Room Surgeons: Sarah Luna, DO Relevant [...] Problem Relation Name Age of Onset Diabetes [facility]06-11-2025 NoteName: Rich James : 1955 (Age-69 y.o.) Date of Service: Pt seen/examined on 12/29/2024 Procedure Information Date/Time: 01/10/25 5730 Procedure: ROBOTIC RIGHT UPPER LOBECTOMY (Right) Location: [address] Operating Room Surgeons: Sarah Luna DO [...] Patient states he is seen cardiology in [place], Dr Koo , tomorrow and will bridge [...] Testing Visit Labs Ordered: YES - PER [facility] PROTOCOL Cbc bmp type and screen and protime Sleep Referral Ordered: NO - ALREADY DIAGNOSED WITH FIFI AND COMPLIANT WITH CPAP Total time spent (which include face to face and non face to face encounters) : 30 minutes Toxic drug monitoring/narrow therapeutic index drug monitoring : # Drug name : coumadin # Route administered : po # Method of monitoring : INR [facility] Protocol referenced includes: 1. Anesthesia Lab Protocol Orders 2. Perioperative Cardiovascular Risk Assessment 3. Anesthesia Assessment 4. Pain Assessment and Acute Pain Service Consult (if appropriate) 5. Medical Clearance/Consult from Internal Medicine (IMS) 6. Shower/Wash Order (for designated surgeries) 7. FIFI Screen and Sleep Clinic Referral (if appropriate) History Of Present Illness: 69 y.o. male who we are asked to see/evaluate by [place] [address] for pre-operative evaluation prior to . Case: [id number] Date/Time: 01/10/25 0730 Procedure: ROBOTIC RIGHT UPPER LOBECTOMY (Right) [76332 CPT(R)] Anesthesia type: General Office notes Dr [...] evaluation. He fou (more content not included)... [id number] Telephone encounter Note* Telephone Encounter - MARCOS Us CNP - 12/24/2024 2:50 PM EDT Surg proc orders placed. MARCOS Locke CNP 12/24/24 [facility] Work Phone: 1(678) 787-670706-06-2025 Miscellaneous Notes* Telephone Encounter - MARCOS Us [...] mouth rinse [] Other: documented in this [facility]06-06-2025 NotePrep for Procedure Order Request: 12/24/24 Surgeon: Jeremy Surgery/Procedure: Robotic Right upper lobectomy Diagnosis: lung nodule Plan Admit: yes PAT Appointment: yes Date if yes: 12/29/24 2:30 pm Date of Surgery/Procedure: 01/10/25 7:30 am Medications: [] Hold as directed by CTS: [x] Per PAT protocol Medication needed prescribed: [x] None [] Nasal ointment and mouth rinse [] Other: [facility]06-06-2025 Telephone encounter Note* Telephone Encounter - Estela [...] Nasal ointment and mouth rinse [] Other: [id number] History of Present illness Narrative* Sarah Luna DO - 12/23/2024 11:15 AM EDT Images from the original note were not included. 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05-15-[facility] Evaluation note* Diagnosis Onset Date Resolution Status Admit Date Right upper lobe pulmonary nodule ac [place] December 02, 2024 7:47am FIFI (obstructive sleep apnea) chroni c December 02, 2024 7:47am Smoking greater than 40 pack years chronic December 02, 2024 7 :47am Stage 1 mild COPD by GOLD classification chronic December 02, 2024 7 :47am Right upper lobe pulmonary nodule ac [place] December 10, 2024 8:37am FIFI (obstructive sleep apnea) chroni c December 10, 2024 8:37am Smoking greater than 40 pack years chronic December 10, 2024 8 :37am Stage 1 mild COPD by GOLD classification chronic December 10, 2024 8 :37am [facility] Work Phone: 1(814) 415-928805-15-2025 Evaluation note* Diagnosis Onset Date Resolution Status [...] Dysphagia acute March 04, 2 025 6:13pm [facility] Work Phone: 1(156) 181-479010-16-2023 NoteHNO ID: [id number] Author: Aylin Mathew MD Service: ? 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 He denies any symptoms of recurrent AF, angina, dizziness, lightheadedness, near-syncope, shortness of breath, worsening activity tolerance, or constitutional symptoms. He reports this is the best he has felt in years. Patient is compliant with his Toprol-XL and Coumadin regimens. He is a [id number]-SQWn of 3 secondary to age and DVT. [...] regimens. CT of chest was performed at [place] and showed no concerning findings. 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 We discussed warfarin as [...] I addressed their questions. documented in this encounterGood Samaritan Hospital10-16-2023 History of Present illness Narrative* Aylin Mathew MD - 05/05/2023 8:14 AM EDT Images from the original note were not included. 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 He denies any symptoms of recurrent AF, angina, dizziness, lightheadedness, near-syncope, shortness of breath, worsening activity tolerance, or constitutional symptoms. He reports this is the best he has felt in years. Patient is compliant with his Toprol-XL and Coumadin regimens. He is a [id number] of 3 secondary to age and DVT. He follows with Dr. Hylton for his INR monitoring. Echo from October 2022 showed anejection fraction of 62%. Left and right atrial cavity mildly dilated. Twelve-lead performed in office today showed sinus bradycardia with ventricular rate of 47 Niikta Ortiz OV 11/05/22 - for 3-month follow-up [...] regimens. CT of chest was performed at [place] and showed no concerning findings. 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 documented in this encounterGood Samaritan Hospital07-10-2023 NoteHNO ID: [id number] Author: Nikita Ortiz APRN.CAMP ADVISOR Service: ? Author Type: Nurse Practitioner Type: Progress Notes Filed: 01/27/2023 9:09 AM Note Text: [facility] General Cardiology Electrophysiology PRIMARY CARE PHYSICIAN: Marion Feng [address] [address] CHIEF COMPLAINT: Persistent atrial fibrillation. HISTORY OF PRESENT ILLNESS (copied from my previous office note on 11/05/2022): Rich is a pleasant 66-year-old gentleman who presents today for 3-month follow-up status post radiofrequency PVI with Dr. Mathew on 08/05/2022. Overall patient reports he has been feeling very well lately. 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 CT of chest was performed at [place] and showed no concerning findings. Surface echo and Holter monitor results currently pending. Agreeable to follow-up in 3 months. Interval History: iRch is a pleasant 67-year-old gentleman who presents today for follow-up regarding history of persistent atrial fibrillation. Overall patient reports feeling excellent. 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 He denies any symptoms of recurrent AF, angina, dizziness, lightheadedness, near-syncope, shortness of breath, worsening activity tolerance, or constitutional symptoms. He reports this is the best he has felt in years. Patient is compliant with his Toprol-XL and Coumadin regimens. He is a [id number] of 3 secondary to age and DVT. [...] as instructed once felix (more content not included)...[facility]07-10-2023 Nurse Note* Vicky Curtis MA - 01/27/2023 8:39 AM EDT No cardiac complaints today. Vicky Curtis MA documented in this encounterGood Samaritan Hospital07-10-2023 History of Present illness Narrative* Nikita Ortiz APRN.BLAYNE - 01/27/2023 8:30 AM EDT [facility] Cardiology Electrophysiology PRIMARY CARE PHYSICIAN: Marion Feng [address] [address] CHIEF COMPLAINT: Persistent atrial fibrillation. HISTORY OF PRESENT ILLNESS (copied from my previous office note on 11/05/2022): Rich is a pleasant 66-year-old gentleman who presents today for 3-month follow-up status post radiofrequency PVI with Dr. Mathew on 08/05/2022. Overall patient reports he has been feeling very well lately. 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 CT of chest was performed at [place] and showed no concerning findings. Surface echo and Holter monitor results currently pending. Agreeable to follow-up in 3 months. Interval History: Rich is a pleasant 67-year-old gentleman who presents today for follow-up regarding history of persistent atrial fibrillation. Overall patient reports feeling excellent. 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 He denies any symptoms of recurrent AF, angina, dizziness, lightheadedness, near-syncope, shortness of breath, worsening activity tolerance, or constitutional symptoms. He reports this is the best he has felt in years. Patient is compliant with his Toprol-XL and Coumadin regimens. He is a [id number] of 3 secondary to age and DVT. [...] Bottle^Rfl: 11 Miscellaneous Medical Supply (COMPRESSION STOCKINGS) [facility]^Use as directed (Pressure 30-40mmHg)to Right Leg Dx [...] a ventricular rate of 46. Incomplete RBBB. OK 148. QRS 108. QT/QTc 488/427. Echo 11/05/2022 [...] October 2022 showed ejection fraction of 62%. [id number] of 3 secondary to age and history [...] . Nikita Ortiz APRN.BLAYNE documented in this encounterGood Samaritan Hospital05-03-2023 Miscellaneous Notes* Telephone Encounter - Georgina [...] rates. Georgina Dudley, RN documented in this encounterGood Samaritan Hospital05-02-2023 Miscellaneous Notes* Addendum Note - Aylin [...] stress test Thanks Aylin documented in this encounterGood Samaritan Hospital04-20-2023 Miscellaneous Notes* Telephone Encounter - Nilsa [...] shows normal Ejection fraction documented in this encounterGood Samaritan Hospital04-18-2023 NoteHNO ID: [id number] Author: Nikita Ortiz APRN.CAMP ADVISOR Service: ? Author Type: Nurse Practitioner Type: Progress Notes Filed: 11/05/2022 10:33 AM Note Text: [facility] General Cardiology Electrophysiology PRIMARY CARE PHYSICIAN: Marion Feng [address] [address] CHIEF COMPLAINT: 3 months post radiofrequency PVI [...] well lately. 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 CT of chest was performed at [place] and showed no concerning findings. Surface echo [...] Brother other (Pulmonary Embo (more content not included)...[facility] 11-05-2022 NoteHNO ID: [id number] Author: Neelima Lozano Chalk Extruding Machine Operator Service: ? Author Type: Chalk Extruding Machine Operator Type: Progress Notes Filed: 11/05/2022 9:20 AM Note Text: Holter monitor applied. Pt verbalized understanding of monitor use / diary.[facility]04-18-2023 History of Present illness Narrative* Neelima Lozano Chalk Extruding Machine Operator - 11/05/2022 9:19 AM EDT Holter monitor applied. Pt verbalized understanding of monitor use / diary. documented in this encounterGood Samaritan Hospital01-17-2023 NoteHNO ID: [id number] Author: BRYAN Good Service: Care Management Author Type: Fire Equipment Operator Type: Care Mgt Initial Assessment Filed: 08/06/2022 10:12 AM Note Text: CARE MANAGEMENT: ASSESSMENT AND DISCHARGE PLAN SERVICE DATE: August 06, 2022 SERVICE TIME: 10:09 AM PRIMARY CARE PHYSICIAN: Marion Feng MD Primary Contact: Extended Emergency Contact Information Primary Emergency Contact: Candace James Address: [address] [place] [address] Mobile Relation: Spouse ADMISSION STATUS: Extended Recovery [...] 2022 TIME: 10:09 AM CONTACT #: [phone]01-16-2023 NoteHNO ID: [id number] Author: Amilcar York APRN.CRNA Service: Anesthesiology Author Type: Nurse Border Measurer Type: Anesthesia Procedure Notes Filed: 08/05/2022 9:36 AM Note Text: ANESTHESIOLOGY PROCEDURE NOTE Airway General Information Procedure Start Time/Medication Administration: 08/05/2022 9:18 AM Patient location during procedure: OR Patient identity confirmed: arm band Staffing BRANCH EMPLOYMENT COORDINATOR: Amilcar York APRN.BRANCH EMPLOYMENT COORDINATOR Performed by: JOYCELYN Indications and Patient Condition [...] attempts at approach: 1 SIGNATURE: Madi York APRN.BRANCH EMPLOYMENT COORDINATOR PATIENT NAME: Rich James DATE: August 05, 2022 TIME: 9:35 AM CSN: [id number] Desert Island Hospital2022 Miscellaneous Notes* Telephone Encounter - Carmen [...] before the procedure. 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 You will stayovernight for observation. Patient should continue to take medications as prescribed the morning ofthe procedure with just a sip of water unless otherwise instructed. Pt verbalized understanding of the above instructions Pt is getting weekly INR's will continue to monitor. Kianna Craig RN documented in this encounterGood Samaritan Hospital12-01-2022 Miscellaneous Notes* Telephone Encounter - Aylin [...] anticoagulated. Aylin Mathew MD documented in this encounterGood Samaritan Hospital10-26-2022 NoteHNO ID: [id number] Author: Aylin Mathew MD Service: ? Author Type: Physician Type: Progress Notes Filed: 05/15/2022 3:25 PM Note Text: Heart and Vascular [facility] SECTION OF CARDIAC PACING and ELECTROPHYSIOLOGY OUTPATIENT VISIT DATE May 15, 2022 OUTPATIENT VISIT TYPE CONSULTATION PRIMARY CARE PHYSICIAN: Magen Ayon [address] [place] [address] REFERRING PHYSICIAN: No referring provider defined for this encounter. 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 This could be done at [place] with Dr. Hylton. If this results in [...] healthcare provider's instructions for treatment. Developed by [employer]. Published by [employer]. Copyright 2014 [employer] and/or one of its subsidiaries. All rights reserved. documented in this encounterGood Samaritan Hospital10-26-2022 History of Present illness Narrative* Aylin Mathew MD - 05/15/2022 2:37 PM EDT Images from the original note were not included. Heart [facility] V[facility] SECTION OF CARDIAC PACING and ELECTROPHYSIOLOGY OUTPATIENT VISIT DATE May 15, 2022 OUTPATIENT VISIT TYPE CONSULTATION PRIMARY CARE PHYSICIAN: Magen Ayon [address] [place] [address] REFERRING PHYSICIAN: No referring provider defined for this encounter. 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 This could be done at [place] with Dr. Hylton. If this results in [...] months. Aylin Mathew MD documented in this encounterGood Samaritan Hospital10-26-2022 Nurse Note* Keesha Vargas MA - 05/15/2022 2:30 PM EDT Patient denies any cardiac issues or symptoms. documented in this encounterGood Samaritan Hospital10-01-2020 Evaluation note* Diagnosis Onset Date Resolution [...] resolved 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 chronic Paroxysmal atrial fibrillation chronic [facility] Work Phone: 1(231) 513-830011-12-2013 History of Past illness Narrative* Problem Noted Date Resolved Date 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 Dave Nair ( [facility]) 07.09.2011 ( ball and socket, socket repair) Embolism and thrombosis 09/30/2005 02/18/20 20 Overview: Right leg documented as of this encounter (statuses as of 05/15/2022) [facility]11[facility] History of Past illness Narrative* Problem Noted Date Resolved Date 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 Dave Nair ( [facility]) 07.09.2011 ( ball and socket, socket repair) Embolism and thrombosis 09/30/2005 02/18/20 20 Overview: Right leg documented as of this encounter (statuses as of 06/20/2022) [facility] of Past illness Narrative* Problem Noted Date Resolved Date 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 Dave Nair ( [facility]) 07.09.2011 ( ball and socket, socket repair) Embolism and thrombosis 09/30/2005 02/18/20 20 Overview: Right leg documented as of this encounter (statuses as of 07/08/2022) [facility] of Past illness Narrative* Problem Noted Date Resolved Date 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 Dave Nair ( [facility]) 07.09.2011 ( ball and socket, socket repair) Embolism and thrombosis 09/30/2005 02/18/20 Overview: Right leg documented as of this encounter (statuses as of 11/08/2022) [facility] of [facility] illness Narrative* Problem Noted Date Resolved Date 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 Dave Nair ( [facility]) 07.09.2011 ( ball and socket, socket repair) Embolism and thrombosis 09/30/2005 02/18/20 20 Overview: Right leg documented as of this encounter (statuses as of 11/20/2022) [facility] of [facility] illness Narrative* Problem Noted Date Resolved Date 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 Dave Nair ( [facility]) 07.09.2011 ( ball and socket, socket repair) Embolism and thrombosis 09/30/2005 02/18/20 Overview: Right leg documented as of this encounter (statuses as of 11/20/2022) [facility] of [facility] Narrative* Problem Noted Date Diagnosed Date Resolved Date Avascular necrosis of lunate 06/01/2013 11/10/2013 Overview: Right wrist. History of total hip replacement 07/23/2011 05/08/2012 Overview: Done by Dr. Dave Nair ( [facility]) 07.09.2011 ( ball and socket, socket repair) Embolism and thrombosis 09/30/200501/20 Overview: Right leg documented as of this encounter (statuses as of 01/27/2023) [facility] of [facility] illness Narrative* Problem Noted Date Diagnosed Date Resolved Date Avascular necrosis of lunate 06/01/2013 11/10/2013 Overview: Right wrist. History of total hip replacement 07/23/2011 05/08/2012 Overview: Done by Dr. Dave Nair ( [facility]) 07.09.2011 ( ball and socket, socket repair) Embolism and thrombosis 09/30/200501/20 Overview: Right leg documented as of this encounter (statuses as of 05/05/2023) [facility] of [facility] illness Narrative* Problem Noted Date Diagnosed Date Resolved Date Avascular necrosis of lunate 06/01/2013 11/10/2013 Overview: Right wrist. History of total hip replacement 07/23/2011 05/08/2012 Overview: Done by Dr. Dave Nair ( [facility]) 07.09.2011 ( ball and socket, socket repair) Embolism and thrombosis 09/30/200501/20 Overview: Right leg documented as of this encounter (statuses as of 11/06/2023) [facility] summary Author Bryan Sesay [facility] Note Date/Time March 05, 2025 11 :35am [facility] Medical Records Department [address] [place] [address] Instructions for Home/Discharge Instructions 03/05/25 1129 MR#: [id number] Acct: [id number] Name: RICH JAMES I Rep #:[id number] : 1955 69 From: Bryan Pike PCP: [...] DAILY Rx Instructions: administer into each nostril ulrjnvtcyjv-prgkejvlf-asf C-Mn [Glucosamine Chondroitin MaxStr] 500-400 mg capsule [...] MD; Dr. Donna Cedeno MD ~ Signed [facility] Work Phone: Discharge summary Author Bryan Sesay [facility] Note Date/Time March 05, 2025 11 :39am [facility] Medical Records Department [address] [place] [address] Discharge Summary 03/05/251134 MR#: [id number] Acct: [id number] Name: RICH JAMES I Rep #:[id number] : [id number] 69 From: Bryan Pike PCP: Dr. Marion Feng MD Status:ADM IN Location: [place] [address]- Providers Date of Admission: 03/04/25 Primary Care [...] Relief) 1 spray intranasal DAILY Allergies 02/29/20 blyimqxtnls-kkkqocedg-dfa C-Mn 500 mg-400 mg capsule (Glucosamine Chondroitin [...] 72.9 H, Lymph % (Auto) 15.3 L, Randall % (Auto) 10.6 H, Eos % (Auto) [...] 88.6 H, Lymph % (Auto) 8.1 L, Randall % (Auto) 3.0, Eos % (Auto) 0.0, [...] 72.9 H, Lymph % (Auto) 15.3 L, Randall % (Auto) 10.6 H, Eos % (Auto) [...] 88.6 H, Lymph % (Auto) 8.1 L, Randall % (Auto) 3.0, Eos % (Auto) 0.0, [...] 4 p.m. Eastern standard time. Reading Location: [facility] Soft Tissue Neck X-Ray 03/04/25 14:40 IMPRESSION: Degenerative changes cervical spine. Unremarkable appearance of the soft tissues. Reading Location: [facility] D/C Instructions Weight Bearing Status: Weight bearing [...] DAILY Rx Instructions: administer into each nostril eywldcrmpse-deibrwvby-uzy C-Mn [Glucosamine Chondroitin MaxStr] 500-400 mg capsule [...] Self Care Charges/Coding Visit Charges Inpatient E&M: 12103 Disch Hosp >30min 03/05/25 1139 <Electronically signed by Bryan Sesay MD> Cosigner Signature (if applicable): CC: Dr. Marion Feng MD; Dr. Bryan Sesay MD~ Signed [facility] Work Phone: Evaluation note* Diagnosis Onset Date Resolution Status 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 chronic Paroxysmal atrial fibrillation chronic Lung nodule acute Stage 1 mild COPD by GOLD classification acute [facility] Work Phone: Evaluation note* Diagnosis Onset [...] Smoking greater than 40 pack years chronic [facility] Work Phone: Evaluation note* Diagnosis Onset [...] by GOLD classification acute Lung nodule resolved [facility] Work Phone: Evaluation note* Diagnosis Onset Date Resolution Status Stage 1 mild COPD by GOLD classification acute Lung nodule resolved 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 chronic Paroxysmal atrial fibrillation chronic 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 chronic Paroxysmal atrial fibrillation chronic Atrial fibrillation, permanent acute [facility] Work Phone: evaluation note* Diagnosis Persistent atrial fibrillation (HCC)- Primary Atrial fibrillation [facility]* Diagnosis Onset Date Resolution Status 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 chronic Paroxysmal atrial fibrillation chronic 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 chronic Paroxysmal atrial fibrillation chronic Atrial fibrillation, permanent acute [facility] Work Phone: Evaluation note* Diagnosis Onset Date Resolution Status 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 chronic Paroxysmal atrial fibrillation chronic 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 chronic Paroxysmal atrial fibrillation chronic Atrial fibrillation, permanent acute Atrial fibrillation, permanent acute Paroxysmal atrial fibrillation chronic [facility] Work Phone: Evaluation note* Diagnosis Persistent atrial fibrillation (HCC)- Primary Atrial fibrillation [facility]* Diagnosis Onset Date Resolution Status Atrial fibrillation, permanent acute Paroxysmal atrial fibrillation chronic Acute URI acute Atrial fibrillation, permanent acute Stage 1 mild COPD by GOLD classification acute Vitamin D deficiency acute 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, chronic 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 Protein C deficiency chronic Smoking greater than 40 pack years chronic 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 chronic Paroxysmal atrial fibrillation chronic Stage 1 mild COPD by GOLD classification acute Paroxysmal atrial fibrillation chronic Lung nodule resolved [facility] Work Phone: Evaluation note* Diagnosis Onset Date Resolution Status 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 chronic Paroxysmal atrial fibrillation chronic Stage 1 mild COPD by GOLD classification acute Paroxysmal atrial fibrillation chronic Lung nodule resolved 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 Paroxysmal atrial fibrillation [facility] Work Phone: Evaluation note* Diagnosis Dyspnea, unspecified type- Primary Regular wide QRS complex tachycardia [facility] Diagnosis Onset Date Resolution Status 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 chronic FDC current use of anticoagulant chronic Paroxysmal atrial fibrillation chronic Skin lesion acute Stage 1 mild COPD by GOLD classification acute Vitamin D deficiency acute 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 chronic FDC current use of anticoagulant chronic [facility] Work Phone: evaluation note* Diagnosis Onset Date Resolution Status 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 chronic FDC current use of anticoagulant chronic Paroxysmal atrial fibrillation chronic Skin lesion acute Stage 1 mild COPD by GOLD classification acute Vitamin D deficiency acute 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 chronic FDC current use of anticoagulant chronic Stage 1 mild COPD by GOLD classification acute Paroxysmal atrial fibrillation chronic [facility] Work Phone: evaluation note* Diagnosis Persistent atrial fibrillation (HCC)- Primary Atrial fibrillation Status post catheter ablation of atrial fibrillation Sinus bradycardia Other specified cardiac dysrhythmias Obesity, Class I, BMI 30-34.9 Obesity, unspecified At risk for stroke Other specified personal history presenting hazards to health documented [facility]* Diagnosis Onset Date Resolution Status Stage 1 mild COPD by GOLD classification acute Paroxysmal atrial fibrillation chronic 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 Paroxysmal atrial fibrillation [facility] Work Phone: Evaluation note* Diagnosis Persistent atrial fibrillation (HCC)- Primary Atrial fibrillation documented in this encounter [facility] note* Diagnosis Onset Date Resolution Status S/P ablation of atrial fibrillation acute Skin lesion acute Smoking greater than 20 pack years acute Stage 1 mild COPD by GOLD classification acute Vitamin D deficiency acute 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 chronic Protein C deficiency chronic Smoking greater than 40 pack years chronic [facility] Work Phone: evaluation noteNo assessment information available [facility] Work Phone: evalujbjsc note* Diagnosis Persistent atrial fibrillation (HCC) Atrial fibrillation documented in this encounter [facility] note* Diagnosis Onset Date Resolution Status Admit Date Right upper lobe pulmonary nodule ac [place] December 02, 2024 7:47am FIFI (obstructive sleep apnea) chroni c December 02, 2024 7:47am Smoking greater than 40 pack years chronic December 02, 2024 7 :47am Stage 1 mild COPD by GOLD classification chronic December 02, 2024 7 :47am [facility] Work Phone: Evaluation note* Diagnosis Right upper lobe pulmonary nodule- Primary Chronic obstructive pulmonary disease, unspecified COPD type (HCC) Paroxysmal atrial fibrillation (HCC) Atrial fibrillation 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) Warfarin anticoagulation Former smoker Personal history of tobacco use, presenting hazards to health Solitary pulmonary nodule documented in this encounter [facility] note* Diagnosis Lung nodule- Primary Other diseases of lung, not elsewhere classified Solitary pulmonary nodule documented in this encounter [facility] note* Diagnosis Lung nodule- Primary Other diseases of lung, not elsewhere classified Lung nodule Other diseases of lung, not elsewhere classified Solitary pulmonary nodule S/P thoracotomy Other postprocedural status documented in this encounter [facility] note* Diagnosis Lung nodule- Primary Other diseases of lung, not elsewhere classified documented in this encounter [facility] Discharge instructionsAmbulatory Orders* Cardiovascular/Thoracic Surgery Location: None [facility] Work Phone: Rehvea for referral (narrative)* Diagnostic Procedure Only (Routine) - Pending Review Specialty Diagnoses / Procedures Referred By Hay schwab Referred To Contact MOLECULAR & FUNCTIONAL IMAGING Diagnoses Dyspnea, unspecified type Regular wide QRS complex tachycardia Procedures NM CARDIAC PERF STRESS/EXERCISE MYOCARDIAL SPECT MULTIPLE STUDIES Aylin Mathew MD [address] [facility] [address] [place] [address] Molecular & Functional Imaging [address] [place] [address] Referral ID Status Reason Start Date Expiration Date Visits Requested Visits Authorized [id number] Pending Review Auto-Generat ed Referral 12/03/2022 2023 1 1 [facility] for referral (narrative)No reason for [facility]: Rebwtc for visit Narrative* Auth/Cert (Routine) Specialty Diagnoses / Procedures Referred By Hay schwab Referred To Contact Diagnoses Solitary pulmonary nodule Procedures [place] THORACOSCOPY W/LOBECTOMY SINGLE LOBE ROBOTIC RIGHT UPPER LOBECTOMY Sarah Luna DO [address] [place] [address] Phone: tel: fax: Referral ID Status Reason Start Date Expiration Date Visits Re quested Visits Authorized [id number] 12/23/2024 1 1 [facility] Chief Complaint Chief Complaint Description Start Date [...] Will No April 25 3:40pm Power of Hone Operator No April 25 3:40pm Advance Directive Response Recorded Date/ Time Advance Directives No March 11:13am Living Will No April 04, 2022 11:13am Power of Hone Operator No March 11:13am Advance Directive Response Recorded Date/ Time Advance Directives on File No 2021 10:58am Advance Directives No May 10:58am Living Will No June 04 10:58am Power of Hone Operator No June 04, 2022 10:58am Advance Directive Response Recorded Date/ Time Advance Directives No May 11:58am Living Will No June 04 11:58am Power of Hone Operator No June 04, 2022 11:58am Advance Directive Response Recorded Date/ Time Advance Directives No May 10:58am Living Will No June 04 10:58am Power of Hone Operator No June 04, 2022 10:58am Advance Directive Response Recorded Date/ Time Living Will No June 04 11:58am Do you have a Healthcare Power of Hone Operator? No June 04, 2022 11:58am Living Will No July 21 5:18am Do you have a Healthcare Power of Hone Operator? No July 21, 2024 5:18am Living Will No September 18, 2024 4:58am Do you have a Healthcare Power of Hone Operator? No September 18, 2024 4:58am Advance Directives No May 11:58am Documents on File Type Date Recorded Patient Him Clerk Expl anation Power of Hone Operator 01/10/2025 6:28 AM Advance Directives and Livin g Will 01/10/2025 6:27 AM Date Activated Date Inactivated Comments 01/10/2025 6:15 AM 01/14/2025 3:24 PM Advance Directive Response Recorded Date/ Time Living Will No June 04 11:58am Do you have a Healthcare Power of Hone Operator? No June 04, 2022 11:58am Living Will No September 18, 2024 4:58am Do you have a Healthcare Power of Hone Operator? No September 18, 2024 4:58am Advance Directives No May 11:58am Documents on File Type Date Recorded Patient Him Clerk Expl anation Power of Hone Operator 01/10/2025 6:28 AM Advance Directives and Livin g Will 01/10/2025 6:27 AM Date Activated Date Inactivated Comments 01/10/2025 6:15 AM 01/14/2025 3:24 PM Advance Directive Response Recorded Date/ Time Living Will No June 04 11:58am Do you have a Healthcare Power of Hone Operator? No June 04, 2022 11:58am Living Will No September 18, 2024 4:58am Do you have a Healthcare Power of Hone Operator? No September 18, 2024 4:58am Do you have a Healthcare Power of Hone Operator? Yes March 04, 2025 2:31pm Advance Directives No May 11:58am Advance Directive Response Recorded Date/ Time Living Will No June 04 11:58am Do you have a Healthcare Pow er of Hone Operator? No June 04, 2022 11:58am Living Will No September 18, 2024 4:58am Do you have a Healthcare Pow er of Hone Operator? No September 18, 2024 4:58am Do you have a Healthcare Pow er of Hone Operator? 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 Paroxysmal atrial fibrillation Skin lesion Stage 1 mild COPD by GOLD classification Vitamin D deficiency 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 FDC current use of anticoagulant Chief Complaint S/O INR- FINGERSTICK 3 M FU POST OP A FIB Amb Documentation 6 M FU S/O INR- FINGERSTICK 6 M FU S/O INR- FINGERSTICK Reason for Visit 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 FDC current use of anticoagulant Paroxysmal atrial fibrillation Skin lesion Stage 1 mild COPD by GOLD classification Vitamin D deficiency 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 Stage 1 mild COPD by GOLD classification Paroxysmal atrial fibrillation Chief Complaint 6 M FU S/O INR- FINGERSTICK S/O INR- FINGERSTICK S/O INR- FINGERSTICK 1 Y FU Reason for Visit Stage 1 mild COPD by GOLD classification Paroxysmal atrial fibrillation 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 FDC current use of anticoagulant Paroxysmal atrial fibrillation [...] Reason Comments CARD New 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 Reason Comments Preparations For Procedures Reason Comments Results Reason Comments Results 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 - Other Reason Comments Patient Update Reason [...] section and content) DATE CREATED AUTHOR 01/19/2022 [facility] DATE CREATED AUTHOR AUTHOR'S ORGANIZ ATION 05/05/2023 [facility] DATE CREATED AUTHOR AUTHOR'S ORGANIZ ATION 01/31/2025 [facility] DATE CREATED AUTHOR AUTHOR'S ORGANIZ ATION 05/22/2025 [facility] Source Comments (unrecognize d section and content) In the event this informatio n is protected by the Federal Confidentiality of Alcohol and Drug Abuse Patient Records regulations: The Federal rules restrict any use of the information to criminally investigate or prosecute any alcohol or drug abuse patient.[facility] the event this information is protected by the Federal Confidentiality of Alcohol and Drug Abuse Patient Records regulations: The Federal rules restrict any use of the information to criminally investigate or prosecute any alcohol or drug abuse patient.[facility] the event this information is protected by the Federal Confidentiality of Alcohol and Drug Abuse Patient Records regulations: The Federal rules restrict any use of the information to criminally investigate or prosecute any alcohol or drug abuse patient.[facility] the event this information is protected by the Federal Confidentiality of Alcohol and Drug Abuse Patient Records regulations: The Federal rules restrict any use of the information to criminally investigate or prosecute any alcohol or drug abuse patient.[facility] the event this information is protected by the Federal Confidentiality of Alcohol and Drug Abuse Patient Records regulations: The Federal rules restrict any use of the information to criminally investigate or prosecute any alcohol or drug abuse patient.[facility] the event this information is protected by the Federal Confidentiality of Alcohol and Drug Abuse Patient Records regulations: The Federal rules restrict any use of the information to criminally investigate or prosecute any alcohol or drug abuse patient.[facility] Hospital[facility] the event this information is protected by the Federal Confidentiality of Alcohol and Drug Abuse Patient Records regulations: The Federal rules restrict any use of the information to criminally investigate or prosecute any alcohol or drug abuse patient.[facility] the event this information is protected by the Federal Confidentiality of Alcohol and Drug Abuse Patient Records regulations: The Federal rules restrict any use of the information to criminally investigate or prosecute any alcohol or drug abuse patient.[facility] the event this information is protected by the Federal Confidentiality of Alcohol and Drug Abuse Patient Records regulations: The Federal rules restrict any use of the information to criminally investigate or prosecute any alcohol or drug abuse patient.[facility] Care Teams (unrecognized sec tion and [...] Referring Pro vider Active Hi Swanson MANAGER CASH, MANAGER CASH-C Other Provider Active Team Status: Active Member Role Status Dates Dr. Marion Feng MD Primary Care Provider Active Dr. Brandon Anders MD Attending Provider, Referring Pr ovider Active Sales Performance Manager Relationship Specialty Start Date End Date Magen Ayon MD [address] [place] [address] PCP - General 08/10/03 Sales Performance Manager Relationship Specialty Start Date End Date Magen Ayon MD [address] [place], [place] [address] PCP - General 08/10/03 Team Status: Inactive [...] Referri ng Provider Active Hi Swanson MANAGER CASH, MANAGER CASH-C Attending Provider Active Team Status: Active Member Role Status Dates Dr. Marion Feng MD Primary Care Provider Active Dr. Jose Hylton MD Other Provider Active Kassy Stack PA, PA Attending Provider Active Team Status: Active Member Role Status Dates Dr. Marion Feng MD Primary Care Provider Active Dr. Jose Hytlon MD Attending Provider, Referring Provider, Other Provider [...] Referring Pro vider Active Hi Swanson MANAGER CASH, MANAGER CASH-C Other Provider Active Team Status: Active Member Role Status Dates Dr. Marion Feng MD Primary Care Provider Active Hi Swanson MANAGER CASH, MANAGER CASH-C Attending Provider Active Team Status: Active Member Role Status Dates Dr. Marion Feng MD Primary Care Provider Active Dr. Jose Hylton MD Attending Provider, Referring Pro vider Active Hi Swanson MANAGER CASH, MANAGER CASH-C Other Provider Active Team Status: Inactive Member Role Status Dates Dr. Marion Feng MD Primary Care Provider Active Hi Swanson MANAGER CASH, MANAGER CASH-C Attending Provider, Referring Pro vider Active Sales Performance Manager Relationship Specialty Start Date End Date Marion Feng MD [address] [place] [address] PCP - General Internal Medicine 08/05/22 Sales Performance Manager Relationship Specialty Start Date End Date Marion Feng MD [address] [place] [address] PCP - General Internal Medicine 08/05/22 Team Status: Inactive Member Role Status Dates Dr. Marion Feng MD Primary Care Provider, Attendi ng Provider Active Sales Performance Manager Relationship Specialty Start Date End Date Marion Feng MD [address] [place] [address] PCP - General Internal Medicine 08/05/22 Sales Performance Manager Relationship Specialty Start Date End Date Marion Feng MD [address] [place] [address] PCP - General Internal Medicine 08/05/22 Sales Performance Manager Relationship Specialty Start Date End Date Marion Feng MD [address] [place] [address] PCP - General Internal Medicine 08/05/22 Team [...] End: July 15, 2024 Hi Swanson MANAGER CASH, MANAGER CASH-C Other Provider Active Start : July 15, [...] End: September 17, 2024 Hi Swanson MANAGER CASH, MANAGER CASH-C Other Provider Active Start : September 02, 2024 End: September 17, 2024 Team Status: Inactive Member Role Status Dates Dr. Marion Feng MD Primary Care Provider Active Start: October 19, 2024 End: October 19, 2024 Kylie Motta MANAGER CASH, MANAGER CASH-C Attending Provider Active Start: October 19, 2024 End: October 19, 2024 Kylie Motta MANAGER CASH, MANAGER CASH-C Referring Provider Active Start: October 19, 2024 End: October 19, 2024 Team Status: Active Member Role Status Dates Dr. Marion Feng MD Primary Care Provider Active Start: October 19, 2024 Dr. Jose Hylton MD Attending Provider Active S tart: October 19, 2024 Dr. Jose Hylton MD Referring Provider Active S tart: October 19, 2024 Hi Swanson MANAGER CASH, MANAGER CASH-C Other Provider Active Start : October 19, 2024 Team Status: Inactive Member Role Status Dates Dr. Marion Feng MD Primary Care Provider Active Start: November 17, 2024 End: November 17, 2024 Kylie Motta MANAGER CASH, MANAGER CASH-C Attending Provider Active Start: November 17, 2024 End: November 17, 2024 Kylie Motta MANAGER CASH, MANAGER CASH-C Referring Provider Active Start: November 17, 2024 [...] End: November 17, 2024 Hi Swanson MANAGER CASH, MANAGER CASH-C Other Provider Active Start : November 17, 2024 End: November 17, 2024 Team Status: Inactive Member Role Status Dates Dr. Marion Feng MD Primary Care Provider Active Start: December 02, 2024 End: December 02, 2024 Dr. Marion Feng MD Referring Provider Active Start: December 02, 2024 End: December 02, 2024 Kylie Motta MANAGER CASH, MANAGER CASH-C Attending Provider Active Start: December 02, 2024 End: December 02, 2024 Team Status: Inactive Member Role Status Dates Dr. Marion Feng MD Primary Care Provider Active Start: December 07, 2024 End: December 07, 2024 Kylie Motta MANAGER CASH, MANAGER CASH-C Attending Provider Active Start: December 07, 2024 End: December 07, 2024 Kylie Motta MANAGER CASH, MANAGER CASH-C Referring Provider Active Start: December 07, 2024 End: December 07, 2024 Team Status: Inactive Member Role Status Dates Dr. Marion Feng MD Primary Care Provider Active Start: December 10, 2024 End: December 10, 2024 Dr. Marion Feng MD Referring Provider Active Start: December 10, 2024 End: December 10, 2024 Kylie Motta MANAGER CASH, MANAGER CASH-C Attending Provider Active Start: December 10, 2024 End: December 10, 2024 Sales Performance Manager Relationship Specialty Start Date End Date Marion Feng [address] [place] [phone] PCP - General Internal Medicine 12/15/24 Kylie Motta [address] [place] [address] Nurse Practitioner 12/15/24 Sales Performance Manager Relationship Specialty Start Date End Date Marion Feng [address] [place] [phone] PCP - General Internal Medicine 12/15/24 Kylie Motta [address] [place] [address] Nurse Practitioner 12/15/24 Sales Performance Manager Relationship Specialty Start Date End Date Marion Feng [address] [place] [phone] PCP - General Internal Medicine 12/15/24 Kylie Motta [address] [place] [address] Nurse Practitioner 12/15/24 Sales Performance Manager Relationship Specialty Start Date End Date Marion Feng [address] [place] [phone] PCP - General Internal Medicine 12/15/24 Kylie Motta [address] [place] [address] Nurse Practitioner 12/15/24 Team Status: Active Member Role/Relationship Status Dates Dr. Marion Feng MD Primary Care Provider Active Team Status: Inactive Member Role/Relationship Status Dates Dr. Marion Feng MD Primary Care Provider Active Start: October 19, 2024 End: October 19, 2024 Kylie Motta MANAGER CASH, MANAGER CASH-C Attending Provider Active Start: October 19, 2024 End: October 19, 2024 Kylie Motta MANAGER CASH, MANAGER CASH-C Referring Provider Active Start: October 19, 2024 End: October 19, 2024 Team Status: Inactive Member Role/Relationship Status Dates Dr. Marion Feng MD Primary Care Provider Active Start: November 17, 2024 End: November 17, 2024 Kylie Motta MANAGER CASH, MANAGER CASH-C Attending Provider Active Start: November 17, 2024 End: November 17, 2024 Kylie Motta MANAGER CASH, MANAGER CASH-C Referring Provider Active Start: November 17, 2024 [...] End: November 17, 2024 Hi Swanson MANAGER CASH, MANAGER CASH-C Other Provider Active Start : November 17, 2024 End: November 17, 2024 Team Status: Inactive Member Role/Relationship Status Dates Dr. Marion Feng MD Primary Care Provider Active Start: December 02, 2024 End: December 02, 2024 Dr. Marion Feng MD Referring Provider Active Start: December 02, 2024 End: December 02, 2024 Kylie Motta MANAGER CASH, MANAGER CASH-C Attending Provider Active Start: December 02, 2024 End: December 02, 2024 Team Status: Inactive Member Role/Relationship Status Dates Dr. Marion Feng MD Primary Care Provider Active Start: December 07, 2024 End: December 07, 2024 Kylie Motta MANAGER CASH, MANAGER CASH-C Attending Provider Active Start: December 07, 2024 End: December 07, 2024 Kylie Motta MANAGER CASH, MANAGER CASH-C Referring Provider Active Start: December 07, 2024 End: December 07, 2024 Team Status: Inactive Member Role/Relationship Status Dates Dr. Marion Feng MD Primary Care Provider Active Start: December 10, 2024 End: December 10, 2024 Dr. Marion Feng MD Referring Provider Active Start: December 10, 2024 End: December 10, 2024 Kylie Motta MANAGER CASH, MANAGER CASH-C Attending Provider Active Start: December 10, 2024 End: December 10, 2024 Team Status: Inactive Member Role/Relationship Status Dates Dr. Marion Feng MD Primary Care Provider Active Start: January 17, 2025 End: January 17, 2025 Kassy PHILLIP, PA Attending Provider Active Start: January 17, 2025 End: January 17, 2025 Kassy PHILLIP, PA Referring Provider Active Start: January 17, 2025 End: January 17, 2025 Sales Performance Manager Relationship Specialty Start Date End Date Marion Feng [address] [place] [id number] PCP - General Internal Medicine 12/15/24 Kylie Motta [address] [place] [id number] Nurse Practitioner 12/15/24 Team Status: Inactive Member Role/Relationship Status Dates Dr. Marion Feng MD Primary Care Provider Active Start: November 17, 2024 End: November 17, 2024 Kylie Motta MANAGER CASH, MANAGER CASH-C Attending Provider Active Start: November 17, 2024 End: November 17, 2024 Kylie Motta MANAGER CASH, MANAGER CASH-C Referring Provider Active Start: November 17, 2024 [...] End: November 17, 2024 Hi Swanson MANAGER CASH, MANAGER CASH-C Other Provider Active Start : November 17, 2024 End: November 17, 2024 Team Status: Inactive Member Role/Relationship Status Dates Dr. Marion Feng MD Primary Care Provider Active Start: December 02, 2024 End: December 02, 2024 Dr. Marion Feng MD Referring Provider Active Start: December 02, 2024 End: December 02, 2024 Kylie Motta MANAGER CASH, MANAGER CASH-C Attending Provider Active Start: December 02, 2024 End: December 02, 2024 Team Status: Inactive Member Role/Relationship Status Dates Dr. Marion Feng MD Primary Care Provider Active Start: December 07, 2024 End: December 07, 2024 Kylie Motta MANAGER CASH, MANAGER CASH-C Attending Provider Active Start: December 07, 2024 End: December 07, 2024 Kylie Motta MANAGER CASH, MANAGER CASH-C Referring Provider Active Start: December 07, 2024 End: December 07, 2024 Team Status: Inactive Member Role/Relationship Status Dates Dr. Marion Feng MD Primary Care Provider Active Start: December 10, 2024 End: December 10, 2024 Dr. Marion Feng MD Referring Provider Active Start: December 10, 2024 End: December 10, 2024 Kylie Motta MANAGER CASH, MANAGER CASH-C Attending Provider Active Start: December 10, 2024 [...] Provider Active Start: March 04, 2025 Dr. Asohk Olvera MD Emergency Provider Active Sta rt: [...] 2025 End: March 11, 2025 Kylie Motta MANAGER CASH, MANAGER CASH-C Attending Provider Active Start: March 11, 2025 [...] sedation for opioid reversal - MUST notify institutional nutrition consultant provider immediately after first dose, may give [...] BE BASED ON THE PRIMARY CLINICAL RECORDS. [facility]. provides no warranty or guarantee of the accuracy or completeness of information in this document.
== END | disposition home or self-care (01) ==
LOC: CT 16:04
PROVIDERS: PCP Internal Medicine; Referring Provider Internal Medicine; Visit Provider Internal Medicine
DX: R31.9 Hematuria, unspecified (principal); J44.9 Chronic obstructive pulmonary disease, unspecified; E55.9 Vitamin D deficiency, unspecified; F17.210 Nicotine dependence, cigarettes, uncomplicated; G47.33 Obstructive sleep apnea (adult) (pediatric); Z79.01 Long term (current) use of anticoagulants
CPT/HCPCS: 74177; Q9967